=== PATIENT | female | born 1970 ===

== ENCOUNTER 2020-03-21 14:35 | Outpatient (REF) | payer OTHER, SELFPAY ==
[2020-03-21 17:36] LABS: MANUAL DIFF FLAG NO
[2020-03-21 17:40] LABS: Basophils Absolute Auto 0.1 X10*3/uL (0.0-0.2); Basophils Percent Auto 0.6 % (0-2); Eosinophils Absolute Auto 0.2 X10*3/uL (0.0-0.4); Eosinophils Percent Auto 1.9 % (0-4); Hematocrit 38.3 % (37-47); Hemoglobin 12.4 g/dl (12.0-16.0); Imm Gran Abs Auto 0.05 X10*3/uL (0.00-0.03); Imm Gran Pct Auto 0.5 % (0.0-0.4); Lymphocytes Absolute Auto 2.7 X10*3/uL (1.2-4.9); Lymphocytes Percent Auto 24.7 % (20-40); Mean Corpuscular HGB Conc 32.4 g/dl (31.0-35.0); Mean Corpuscular Hemoglobin 28.2 pg (27.0-33.0); Mean Platelet Volume 10.5 fL (9.4-12.3); Monocytes Absolute Auto 0.9 X10*3/uL (0.1-1.2); Monocytes Percent Auto 8.2 % (2-11); Neutrophils Percent Auto 64.1 % (45-73); Platelet Count 276 X10*3/uL (160-400); Red Cell Distribution Width 13.6 % (11.0-16.0)
[2020-03-21 19:42] LABS: C Reactive Protein 0.77 mg/dL (< or = 0.50)
[2020-03-28 05:45] LABS: Hepatitis A Antibody IgM 0.18 Index (0-0.79); ~Hepatitis A Antibody IgM Nonreactive (Nonreactive)
== END 2020-03-21 14:36 | disposition home or self-care (01) ==
LOC: CF 14:35
PROVIDERS: PCP Internal Medicine; Referring Provider Internal Medicine; Visit Provider Nurse Practitioner
DX: K58.0 Irritable bowel syndrome with diarrhea (principal); K75.81 Nonalcoholic steatohepatitis (NASH); R10.11 Right upper quadrant pain; K31.84 Gastroparesis; M47.814 Spondylosis without myelopathy or radiculopathy, thoracic region
CPT/HCPCS: 36415; 85025; 86140; 86709; 99213

== ENCOUNTER 2020-03-22 | Outpatient (REF) | payer OTHER, SELFPAY ==
[2020-03-23 14:49] LABS: CDIFF Ag Negative (Negative); CDiff Toxin Negative (Negative)
[2020-03-23 14:50] LABS: CDIFF Internal ctrl Dots and bkg OK (V)
== END 2020-03-22 00:01 | disposition home or self-care (01) ==
LOC: HO.LNP
PROVIDERS: Visit Provider Nurse Practitioner
DX: R19.7 Diarrhea, unspecified (principal)
CPT/HCPCS: 87324; 87338; 87449

== ENCOUNTER 2020-04-03 12:47 | Outpatient (REF) | payer OTHER, SELFPAY ==
[2020-04-04 11:38] LABS: CT PCR NOT DETECTED (Not Detect.)
[2020-04-04 11:39] LABS: NG PCR NOT DETECTED (Not Detect.)
== END 2020-04-03 12:48 | disposition home or self-care (01) ==
LOC: HO.LAB 12:47
PROVIDERS: Visit Provider Obstetrics & Gynecology
DX: R10.2 Pelvic and perineal pain (principal); N76.0 Acute vaginitis; B96.89 Other specified bacterial agents as the cause of diseases classified elsewhere
CPT/HCPCS: 87480; 87491; 87510; 87591; 87660; 99213

== ENCOUNTER 2020-04-06 12:22 | Outpatient (REF) | payer OTHER, SELFPAY ==
--- NOTE | 2020-04-06 12:29 | US_ITS ---
EXAMINATION: US PELVIS COMPLETE CLINICAL INFORMATION: Pelvic and perineal pain; the last menstrual period was on 02/23/2020. COMPARISON: Pelvic ultrasound dated 05/31/2018. TECHNIQUE: Transabdominal and transvaginal imaging were performed. FINDINGS: The uterus is of normal size and echogenicity measuring 9.1 x 5.0 x 5.1 cm. The uterus is anteverted. A regular, homogeneous endometrium is identified measuring 1.0 cm. Nabothian cysts are seen within the cervix FIBROIDS: There are 2 fibroids seen. 1. Location: Posterior rightward body. Size: 1.8 x 1.4 x 2.0 cm. Prior: 1.2 x 1.2 x 1.2 cm. Fibroid characteristics: Heterogeneously hypoechoic. 2. Location: Anterior leftward body. Size: 0.9 x 0.7 x 0.8 cm. Prior: Not seen. Fibroid characteristics: Hypoechoic. Both ovaries are of normal size and echogenicity. The right measures 2.3 x 1.6 x 1.3 cm for a volume of 2.4 mL. The left measures 3.5 x 2.3 x 1.9 cm for a volume of 7.8 mL. There is no pelvic free fluid. No adnexal mass is seen. US/US pelvic complete IMPRESSION: 1. Uterine fibroids are seen, as above. 2. Nabothian cysts are seen within the cervix.
--- NOTE | 2020-04-06 12:29 | US_ITS ---
EXAMINATION: US PELVIS COMPLETE CLINICAL INFORMATION: Pelvic and perineal pain; the last menstrual period was on 02/23/2020. COMPARISON: Pelvic ultrasound dated 05/31/2018. TECHNIQUE: Transabdominal and transvaginal imaging were performed. FINDINGS: The uterus is of normal size and echogenicity measuring 9.1 x 5.0 x 5.1 cm. The uterus is anteverted. A regular, homogeneous endometrium is identified measuring 1.0 cm. Nabothian cysts are seen within the cervix FIBROIDS: There are 2 fibroids seen. 1. Location: Posterior rightward body. Size: 1.8 x 1.4 x 2.0 cm. Prior: 1.2 x 1.2 x 1.2 cm. Fibroid characteristics: Heterogeneously hypoechoic. 2. Location: Anterior leftward body. Size: 0.9 x 0.7 x 0.8 cm. Prior: Not seen. Fibroid characteristics: Hypoechoic. Both ovaries are of normal size and echogenicity. The right measures 2.3 x 1.6 x 1.3 cm for a volume of 2.4 mL. The left measures 3.5 x 2.3 x 1.9 cm for a volume of 7.8 mL. There is no pelvic free fluid. No adnexal mass is seen. US/US transvaginal IMPRESSION: 1. Uterine fibroids are seen, as above. 2. Nabothian cysts are seen within the cervix.
== END 2020-04-06 12:23 | disposition home or self-care (01) ==
LOC: HO.US 12:22
PROVIDERS: PCP Internal Medicine; Visit Provider Obstetrics & Gynecology
DX: R10.2 Pelvic and perineal pain (principal)
CPT/HCPCS: 76830; 76856

== ENCOUNTER 2020-04-10 14:38 | Outpatient (REF) | payer OTHER, SELFPAY ==
[2020-04-10 15:24] LABS: MANUAL DIFF FLAG NO
[2020-04-10 15:33] LABS: Basophils Absolute Auto 0.1 X10*3/uL (0.0-0.2); Basophils Percent Auto 0.9 % (0-2); Eosinophils Absolute Auto 0.2 X10*3/uL (0.0-0.4); Eosinophils Percent Auto 1.9 % (0-4); Hematocrit 40.4 % (37-47); Hemoglobin 12.7 g/dl (12.0-16.0); Imm Gran Abs Auto 0.05 X10*3/uL (0.00-0.03); Imm Gran Pct Auto 0.6 % (0.0-0.4); Lymphocytes Absolute Auto 2.5 X10*3/uL (1.2-4.9); Lymphocytes Percent Auto 28.8 % (20-40); Mean Corpuscular HGB Conc 31.4 g/dl (31.0-35.0); Mean Corpuscular Hemoglobin 27.4 pg (27.0-33.0); Mean Corpuscular Volume 87.1 fL (80-98); Mean Platelet Volume 10.2 fL (9.4-12.3); Monocytes Absolute Auto 0.7 X10*3/uL (0.1-1.2); Monocytes Percent Auto 7.6 % (2-11); Neutrophils Absolute Auto 5.3 X10*3/uL (2.0-8.3); Neutrophils Percent Auto 60.2 % (45-73); Platelet Count 315 X10*3/uL (160-400); Red Blood Count 4.64 X10*6/uL (4.20-5.50); Red Cell Distribution Width 13.5 % (11.0-16.0); White Blood Count 8.7 X10*3/uL (4.8-10.8)
[2020-04-10 15:59] LABS: C Reactive Protein 0.71 mg/dL (< or = 0.50)
[2020-04-12 11:55] LABS: Alpha Fetoprotein 1.6 ng/mL
== END 2020-04-10 14:39 | disposition home or self-care (01) ==
LOC: HO.LAB 14:38
PROVIDERS: PCP Internal Medicine; Visit Provider Nurse Practitioner
DX: K75.81 Nonalcoholic steatohepatitis (NASH) (principal); R19.7 Diarrhea, unspecified
CPT/HCPCS: 36415; 82105; 85025; 86140

== ENCOUNTER 2020-04-12 17:15 | Outpatient (REF) | payer OTHER, SELFPAY ==
[2020-04-13 15:02] LABS: CDIFF Ag Negative (Negative); CDIFF Internal ctrl Dots and bkg OK (V); CDiff Toxin Negative (Negative)
== END 2020-04-12 17:16 | disposition home or self-care (01) ==
LOC: HO.LNP 17:15
PROVIDERS: Visit Provider Nurse Practitioner
DX: R19.7 Diarrhea, unspecified (principal)
CPT/HCPCS: 87045; 87046; 87324; 87338; 87449

== ENCOUNTER 2020-04-18 09:43 | Outpatient (REF) | payer OTHER, SELFPAY ==
--- NOTE | 2020-04-18 09:46 | US_ITS ---
EXAMINATION: US ABDOMEN LIMITED CLINICAL INFORMATION: HURD. COMPARISON: CT abdomen and pelvis dated 07/01/2018 and abdominal ultrasound May 2016 TECHNIQUE: Real-time imaging of the right upper quadrant abdominal viscera. FINDINGS: PANCREAS: Normal. LIVER: Liver echotexture is increased probably representing fatty infiltration. There is a hypoechoic area adjacent to the gallbladder, a characteristic location of focal fatty sparing. No other focal liver lesion is seen. The liver is upper normal in size, right lobe measuring 18 cm. The liver is normal in contour.. There is no intrahepatic biliary duct dilatation seen. GALLBLADDER: Normal. The gallbladder is physiologically distended without evidence of stones, sludge, polyps, wall thickening or pericholecystic fluid. COMMON BILE DUCT: Normal in caliber measuring 0.26 cm in diameter. RIGHT KIDNEY: Normal. No hydronephrosis. No renal calculi or focal parenchymal lesions. The kidney measures 12.1 cm in maximum dimension. FREE FLUID: None. US/US abdomen limited IMPRESSION: Echogenic liver probably representing fatty infiltration.
== END 2020-04-18 09:44 | disposition home or self-care (01) ==
LOC: HO.US 09:43
PROVIDERS: Visit Provider Nurse Practitioner
DX: K75.81 Nonalcoholic steatohepatitis (NASH) (principal)
CPT/HCPCS: 76705

== ENCOUNTER 2020-04-19 13:11 | Outpatient (REF) | payer OTHER, SELFPAY ==
--- NOTE | 2020-04-19 | MM_ITS ---
EXAMINATION: MM SCREENING DIGITAL BREAST TOMOSYNTHESIS, BILATERAL CLINICAL INFORMATION: Screening. Asymptomatic. The lifetime risk of breast cancer based on the Tyrer-Cuzick Model is 13.1%. COMPARISON: Mammography: March 17, 2019 and studies dating back to December 26, 2011 TECHNIQUE: Digital breast tomosynthesis is performed in both the craniocaudal and mediolateral oblique views along with computer-aided detection (CAD). Synthesized 2D images are generated from the tomosynthesis. FINDINGS: There are scattered areas of fibroglandular density (ACR BI-RADS breast composition Category b). There are no significant masses, abnormal calcifications, or other abnormalities. Stable region of architectural distortion seen superior aspect of the left breast. MM/MM tomosynthesis screening BI IMPRESSION: There are no significant changes from prior study. ASSESSMENT: BI-RADS 1: Negative RECOMMENDATION: Routine annual mammography screening. This patient's information was entered into a reminder system with a target due date for their next mammogram.
== END 2020-04-19 13:12 | disposition home or self-care (01) ==
LOC: HO.MAMMO 13:11
PROVIDERS: PCP Internal Medicine; Visit Provider Internal Medicine
DX: Z12.31 Encounter for screening mammogram for malignant neoplasm of breast (principal)
CPT/HCPCS: 77063; 77067

== ENCOUNTER 2020-04-27 15:28 | Outpatient (REF) | payer OTHER, SELFPAY | END 2020-04-27 15:29 | disposition home or self-care (01) | LOC: HO.LAB 15:28 | PROVIDERS: PCP Internal Medicine; Visit Provider Internal Medicine | DX: Z20.828 Contact with and (suspected) exposure to other viral communicable diseases (principal) | CPT/HCPCS: C9803; U0003 ==

== ENCOUNTER 2020-05-03 12:04 | Outpatient (REF) | payer OTHER, SELFPAY ==
[2020-05-03 13:13] LABS: MANUAL DIFF FLAG NO
[2020-05-03 13:21] LABS: Basophils Absolute Auto 0.1 X10*3/uL (0.0-0.2); Basophils Percent Auto 0.7 % (0-2); Eosinophils Absolute Auto 0.2 X10*3/uL (0.0-0.4); Eosinophils Percent Auto 1.9 % (0-4); Hematocrit 40.5 % (37-47); Hemoglobin 12.7 g/dl (12.0-16.0); Imm Gran Abs Auto 0.04 X10*3/uL (0.00-0.03); Imm Gran Pct Auto 0.4 % (0.0-0.4); Lymphocytes Absolute Auto 2.7 X10*3/uL (1.2-4.9); Lymphocytes Percent Auto 29.3 % (20-40); Mean Corpuscular HGB Conc 31.4 g/dl (31.0-35.0); Mean Corpuscular Hemoglobin 27.2 pg (27.0-33.0); Mean Corpuscular Volume 86.7 fL (80-98); Mean Platelet Volume 10.6 fL (9.4-12.3); Monocytes Absolute Auto 0.6 X10*3/uL (0.1-1.2); Monocytes Percent Auto 6.6 % (2-11); Neutrophils Absolute Auto 5.5 X10*3/uL (2.0-8.3); Neutrophils Percent Auto 61.1 % (45-73); Platelet Count 283 X10*3/uL (160-400); Red Blood Count 4.67 X10*6/uL (4.20-5.50); Red Cell Distribution Width 13.3 % (11.0-16.0); White Blood Count 9.1 X10*3/uL (4.8-10.8)
[2020-05-03 13:41] LABS: Alanine Aminotransferase 54 U/L (0-31); Alkaline Phosphatase 100 U/L (39-117); Anion Gap 12 (12-20); Aspartate Amino Transferase 54 U/L (5-31); Bilirubin Total 0.8 mg/dL (0.0-1.0); Blood Urea Nitrogen 12 mg/dL (9-16); C Reactive Protein 0.59 mg/dL (< or = 0.50); Calcium 8.9 mg/dL (8.4-10.2); Carbon Dioxide 29 mmol/L (22-29); Chloride 104 mmol/L (96-108); Cholesterol 220 mg/dL; Estimated Glomerular Filt Rate > 60; Glucose Fasting 105 mg/dL (60-99); HDL Cholesterol 32 mg/dL; LDL Cholesterol Calculated 150 mg/dl; Potassium 4.4 mmol/l (3.3-5.1); Sodium 141 mmol/L (135-145); Total Protein 6.9 g/dL (6.5-8.0); Triglycerides 191 mg/dL
[2020-05-03 14:01] LABS: TSH reflex Free T4 1.82 mIU/mL (0.32-4.0)
[2020-05-03 14:16] LABS: Glucose Urine UA NEG (NEG); Leukocyte Esterase Urine 1+ (NEG); Nitrite Urine NEG (NEG); PH 5.5 (5.0-8.0); Specific Gravity - Urine >= 1.030 (1.005-1.025); Urine Blood TRACE (NEG); Urine Ketones NEG (NEG); Urine Protein NEG (NEG-TRACE)
[2020-05-03 14:21] LABS: Appearance Urine HAZY; Color Urine YELLOW
[2020-05-03 14:22] LABS: Estimated Average Glucose 151 mg/dL; Hemoglobin A1c % 6.9 %
[2020-05-03 14:35] LABS: Erythrocyte Sedimentation Rate 16 MM/HR (0-20)
[2020-05-03 14:42] LABS: Bacteria Urine 1+ /LPF; Mucus Urine 1+ /LPF; RBC Urine 0-2 /HPF (0); Squamous Epithelial Cell Urine 2+ /LPF
== END 2020-05-03 12:05 | disposition home or self-care (01) ==
LOC: HO.LAB 12:04
PROVIDERS: PCP Internal Medicine; Visit Provider Internal Medicine
DX: I10 Essential (primary) hypertension (principal); E11.9 Type 2 diabetes mellitus without complications
CPT/HCPCS: 36415; 80053; 80061; 81001; 81003; 83036; 84443; 85025; 85652; 86140; 87086

== ENCOUNTER → 2020-05-07 14:38 | Outpatient (BNVA) | payer OTHER, SELFPAY | PROVIDERS: PCP Internal Medicine; Visit Provider Nurse Practitioner | DX: Z76.89 Persons encountering health services in other specified circumstances (principal) ==

== ENCOUNTER 2020-05-09 14:49 | Outpatient (REF) | payer OTHER, SELFPAY ==
[2020-05-10 03:12] LABS: CT PCR NOT DETECTED (Not Detect.); NG PCR NOT DETECTED (Not Detect.)
[2020-05-10 08:53] LABS: BV Int Neg Control Negative (Negative); BV Int Pos Control Positive (Positive)
== END 2020-05-09 14:50 | disposition home or self-care (01) ==
LOC: HO.LAB 14:49
PROVIDERS: PCP Internal Medicine; Visit Provider Obstetrics & Gynecology
DX: N98.9 Complication associated with artificial fertilization, unspecified (principal)
CPT/HCPCS: 87480; 87491; 87510; 87591; 87660; 99212

== ENCOUNTER → 2020-05-16 12:40 | Outpatient (BNVA) | payer OTHER, SELFPAY | PROVIDERS: PCP Internal Medicine; Referring Provider Internal Medicine; Visit Provider Obstetrics & Gynecology | DX: Z76.89 Persons encountering health services in other specified circumstances (principal) ==

== ENCOUNTER → 2020-06-04 14:09 | Outpatient (BNVA) | payer OTHER, SELFPAY | PROVIDERS: PCP Internal Medicine; Visit Provider Nurse Practitioner | DX: Z76.89 Persons encountering health services in other specified circumstances (principal) ==

== ENCOUNTER 2020-06-06 11:47 | Outpatient (REF) | payer OTHER, SELFPAY ==
--- NOTE | 2020-06-06 11:52 | US_ITS ---
EXAMINATION: US ABDOMEN LIMITED CLINICAL INFORMATION: Intra-abdominal and pelvic swelling, mass or lump, unspecified site. COMPARISON: Previous CT of the abdomen and pelvis June 2018 TECHNIQUE: Doppler color and grayscale imaging of the soft tissues of the left abdominal wall lateral to the umbilicus FINDINGS: No abnormality is evident by ultrasound. No mass, hernia or fluid collection is seen. US/US abdomen limited IMPRESSION: No left abdominal wall abnormality evident by ultrasound.
== END 2020-06-06 11:48 | disposition home or self-care (01) ==
LOC: HO.US 11:47
PROVIDERS: Visit Provider Nurse Practitioner
DX: R19.00 Intra-abdominal and pelvic swelling, mass and lump, unspecified site (principal)
CPT/HCPCS: 76705

== ENCOUNTER → 2020-06-14 13:12 | Outpatient (BNVA) | payer OTHER, SELFPAY | PROVIDERS: PCP Internal Medicine; Visit Provider Nurse Practitioner | DX: Z76.89 Persons encountering health services in other specified circumstances (principal) ==

== ENCOUNTER → 2020-06-25 14:03 | Outpatient (BNVA) | payer OTHER, SELFPAY | PROVIDERS: PCP Internal Medicine; Visit Provider Surgery | DX: R19.00 Intra-abdominal and pelvic swelling, mass and lump, unspecified site (principal); E66.01 Morbid (severe) obesity due to excess calories; Z68.41 Body mass index [BMI] 40.0-44.9, adult | CPT/HCPCS: 99202 ==

== ENCOUNTER 2020-08-02 13:20 | Outpatient (REF) | payer OTHER, SELFPAY ==
[2020-08-02 14:54] LABS: Estimated Average Glucose 146 mg/dL; Hemoglobin A1c % 6.7 %
[2020-08-02 15:05] LABS: Glucose Urine UA NEG (NEG); Leukocyte Esterase Urine NEG (NEG); Nitrite Urine NEG (NEG); PH 5.5 (5.0-8.0); Specific Gravity - Urine >= 1.030 (1.005-1.025); Urine Blood NEG (NEG); Urine Ketones NEG (NEG); Urine Protein NEG (NEG-TRACE)
[2020-08-02 15:11] LABS: Appearance Urine CLEAR; Color Urine YELLOW
== END 2020-08-02 13:21 | disposition home or self-care (01) ==
LOC: HO.LAB 13:20
PROVIDERS: PCP Internal Medicine; Visit Provider Internal Medicine
DX: E11.9 Type 2 diabetes mellitus without complications (principal); I10 Essential (primary) hypertension
CPT/HCPCS: 36415; 81003; 83036

== ENCOUNTER 2020-08-06 13:15 | Outpatient (REF) | payer OTHER, SELFPAY ==
--- NOTE | ~2020-08-06 | XR_ITS ---
EXAMINATION: THORACIC AND LUMBAR SPINE CLINICAL INFORMATION: Back pain COMPARISON: Previous thoracic and lumbar spine x-rays most recent November 2019 TECHNIQUE: 3 views of the thoracic spine including swimmer's view and 3 views of the lumbar spine FINDINGS: Thoracic spine: Bone alignment is normal. No fracture or dislocation is seen. There is multilevel degenerative spondylosis. There is disc space narrowing in the mid thoracic spine. Paraspinal soft tissues are normal. There are postsurgical changes to the lower cervical spine. Lumbar spine: Bone alignment is normal. No fracture or dislocation is seen. Disc spaces are normal. There is lower lumbar spine facet arthritis. XR/XR thoracic spine 3V IMPRESSION: Thoracic spine: Degenerative changes in the mid and lower thoracic spine. Lumbar spine: Lower lumbar spine facet arthritis.
--- NOTE | ~2020-08-06 | XR_ITS ---
EXAMINATION: THORACIC AND LUMBAR SPINE CLINICAL INFORMATION: Back pain COMPARISON: Previous thoracic and lumbar spine x-rays most recent November 2019 TECHNIQUE: 3 views of the thoracic spine including swimmer's view and 3 views of the lumbar spine FINDINGS: Thoracic spine: Bone alignment is normal. No fracture or dislocation is seen. There is multilevel degenerative spondylosis. There is disc space narrowing in the mid thoracic spine. Paraspinal soft tissues are normal. There are postsurgical changes to the lower cervical spine. Lumbar spine: Bone alignment is normal. No fracture or dislocation is seen. Disc spaces are normal. There is lower lumbar spine facet arthritis. XR/XR lumbar spine 2-3V IMPRESSION: Thoracic spine: Degenerative changes in the mid and lower thoracic spine. Lumbar spine: Lower lumbar spine facet arthritis.
== END 2020-08-06 13:16 | disposition home or self-care (01) ==
LOC: HO.XRAY 13:15
PROVIDERS: PCP Internal Medicine; Visit Provider Internal Medicine
DX: G89.29 Other chronic pain (principal); M54.9 Dorsalgia, unspecified
CPT/HCPCS: 72072; 72100

== ENCOUNTER 2020-08-16 17:14 | Outpatient (REF) | payer OTHER, SELFPAY | END 2020-08-16 17:15 | disposition home or self-care (01) | LOC: HO.LAB 17:14 | PROVIDERS: Visit Provider Nurse Practitioner Family | DX: J02.9 Acute pharyngitis, unspecified (principal); Z20.822 Contact with and (suspected) exposure to COVID-19 | CPT/HCPCS: 36415; U0003; U0005 ==

== ENCOUNTER → 2020-09-20 12:45 | Outpatient (BNVA) | payer OTHER, SELFPAY | PROVIDERS: PCP Internal Medicine; Visit Provider Nurse Practitioner | DX: K21.9 Gastro-esophageal reflux disease without esophagitis (principal); R19.00 Intra-abdominal and pelvic swelling, mass and lump, unspecified site; R19.7 Diarrhea, unspecified; R10.11 Right upper quadrant pain; K75.81 Nonalcoholic steatohepatitis (NASH); K31.84 Gastroparesis; E66.01 Morbid (severe) obesity due to excess calories; Z68.41 Body mass index [BMI] 40.0-44.9, adult | CPT/HCPCS: 99212 ==

== ENCOUNTER 2020-09-21 13:23 | Outpatient (REF) | payer OTHER, SELFPAY ==
[2020-09-21 14:51] LABS: MANUAL DIFF FLAG NO
[2020-09-21 14:54] LABS: Glucose Urine UA NEG (NEG); Leukocyte Esterase Urine 1+ (NEG); Nitrite Urine NEG (NEG); PH 5.5 (5.0-8.0); Specific Gravity - Urine >= 1.030 (1.005-1.025); UACC Culture Trigger YES; Urine Blood 2+ (NEG); Urine Ketones NEG (NEG); Urine Protein NEG (NEG-TRACE)
[2020-09-21 14:55] LABS: Appearance Urine HAZY; Color Urine YELLOW
[2020-09-21 14:56] LABS: Basophils Absolute Auto 0.1 X10*3/uL (0.0-0.2); Basophils Percent Auto 0.7 % (0-2); Eosinophils Absolute Auto 0.2 X10*3/uL (0.0-0.4); Eosinophils Percent Auto 1.8 % (0-4); Hematocrit 40.7 % (37-47); Imm Gran Abs Auto 0.03 X10*3/uL (0.00-0.03); Imm Gran Pct Auto 0.4 % (0.0-0.4); Lymphocytes Absolute Auto 2.5 X10*3/uL (1.2-4.9); Mean Corpuscular HGB Conc 31.9 g/dl (31.0-35.0); Mean Corpuscular Hemoglobin 27.6 pg (27.0-33.0); Mean Corpuscular Volume 86.4 fL (80-98); Mean Platelet Volume 10.3 fL (9.4-12.3); Monocytes Absolute Auto 0.6 X10*3/uL (0.1-1.2); Monocytes Percent Auto 7.1 % (2-11); Neutrophils Absolute Auto 5.1 X10*3/uL (2.0-8.3); Platelet Count 311 X10*3/uL (160-400); Red Blood Count 4.71 X10*6/uL (4.20-5.50); Red Cell Distribution Width 13.4 % (11.0-16.0); White Blood Count 8.5 X10*3/uL (4.8-10.8)
[2020-09-21 15:05] LABS: Estimated Average Glucose 143 mg/dL; Hemoglobin A1c % 6.6 %
[2020-09-21 15:19] LABS: Creatinine Urine 217.78 mg/dL; Microalbum/Creatinine Ratio Ur 4.1 ug/mg cr
[2020-09-21 15:19] LABS: Alanine Aminotransferase 39 U/L (0-31); Albumin Level 4.1 g/dL (3.5-5.0); Alkaline Phosphatase 99 U/L (39-117); Anion Gap 11 (12-20); Aspartate Amino Transferase 44 U/L (5-31); Bilirubin Total 0.9 mg/dL (0.0-1.0); Blood Urea Nitrogen 13 mg/dL (9-16); Calcium 8.8 mg/dL (8.4-10.2); Carbon Dioxide 31 mmol/L (22-29); Chloride 105 mmol/L (96-108); Cholesterol 214 mg/dL; Estimated Glomerular Filt Rate > 60; Glucose Fasting 101 mg/dL (60-99); HDL Cholesterol 32 mg/dL; LDL Cholesterol Calculated 134 mg/dl; Potassium 4.2 mmol/L (3.3-5.1); Sodium 143 mmol/L (135-145); Total Protein 7.1 g/dL (6.5-8.0); Triglycerides 243 mg/dL
[2020-09-21 15:21] LABS: Mucus Urine 3+ /LPF; Squamous Epithelial Cell Urine 3+ /LPF
[2020-09-21 15:41] LABS: TSH reflex Free T4 1.29 uIU/mL (0.32-4.0); Vitamin D 25-OH Total 27.7 ng/mL (>30)
== END 2020-09-21 13:24 | disposition home or self-care (01) ==
LOC: HO.LAB 13:23
PROVIDERS: PCP Internal Medicine; Visit Provider Internal Medicine
DX: E66.01 Morbid (severe) obesity due to excess calories (principal); Z68.41 Body mass index [BMI] 40.0-44.9, adult; E78.2 Mixed hyperlipidemia; I10 Essential (primary) hypertension; M79.7 Fibromyalgia; E11.9 Type 2 diabetes mellitus without complications; E55.9 Vitamin D deficiency, unspecified; M25.50 Pain in unspecified joint
CPT/HCPCS: 36415; 80053; 80061; 81001; 81003; 82043; 82306; 83036; 84443; 85025; 87086

== ENCOUNTER → 2020-10-17 11:25 | Outpatient (BNVA) | payer OTHER, SELFPAY | PROVIDERS: PCP Internal Medicine; Referring Provider Internal Medicine; Visit Provider Nurse Practitioner Family | DX: R07.9 Chest pain, unspecified (principal); I10 Essential (primary) hypertension; E78.2 Mixed hyperlipidemia; E11.9 Type 2 diabetes mellitus without complications | CPT/HCPCS: 93005; 99212 ==

== ENCOUNTER → 2020-10-19 12:38 | Outpatient (BNVA) | payer OTHER, SELFPAY | PROVIDERS: PCP Internal Medicine; Visit Provider Nurse Practitioner ==

== ENCOUNTER 2020-10-30 15:01 | Emergency (ER) | payer OTHER, SELFPAY ==
--- NOTE | ~2020-10-30 | CT_ITS ---
EXAMINATION: CT abdomen pelvis w con, CT chest w con CLINICAL INFORMATION: Reason for Exam fall on L side. LUQ pain COMPARISON: Selected portions of abdomen CT 07/01/18 TECHNIQUE: Multidetector CT. Helical examination of the chest, abdomen and pelvis. The patient received nonionic contrast intravenously. The patient received 85 mL of Omnipaque [address] examination was performed using dose optimization techniques as appropriate, variously including the following: *Automated exposure control *Adjustment of mA and/or kV according to patient size (this includes techniques or standardized protocols for targeted exams where dose is matched to indication/reason for exam; i.e. extremities or head) *Use of iterative reconstruction technique ESTIMATED DOSE: DLP 1273 mGy-cm. FINDINGS: Digital diamond cleaner: No dense consolidation. Nonobstructed gas pattern. Lower cervical instrumentation. CHEST: LUNG: No abnormality of the central airways. No evidence of contusion, consolidation or edema. No suspicious mass PLEURA: No pleural effusion or pneumothorax. MEDIASTINUM: There is no evidence of a mediastinal hematoma. No enlarged mediastinal or hilar lymph nodes. No suspicious abnormality the esophagus. VASCULAR: There is artifact in the region of the aortic root and ascending arch. No convincing evidence of a thoracic aortic injury. There is no abnormality of the central pulmonary arteries. No pericardial fluid. CHEST WALL/AXILLA: No axillary or internal mammary lymphadenopathy. ABDOMEN/PELVIS: LIVER, GALLBLADDER, AND BILIARY TREE: There is no evidence of a hepatic injury. Diffuse fatty change with some areas of focal sparing. The liver contour is smooth. There is no intrahepatic biliary dilation. No opaque gallstone. No biliary dilation. PANCREAS: No evidence of a pancreatic injury. No localized peripancreatic stranding. SPLEEN: Within normal limits. Small splenule. ADRENAL GLANDS: Within normal limits KIDNEYS AND URETERS: No evidence of renal injury. No dilation of the urinary collecting system. There is a small round cyst in the medial mid right kidney. This was present and appears unchanged since at least 07/01/18. This does not require any further evaluation. GASTROINTESTINAL TRACT: No colonic wall thickening. No small bowel dilation. The stomach is not well-distended. There is no definite evidence of an omental or mesenteric hematoma. No CT evidence of acute appendicitis. ABDOMINAL WALL: No significant hernia is appreciated. No significant abdominal wall hematoma. LYMPHOVASCULAR STRUCTURES AND FLUID: There is no abdominal aortic aneurysm. No evidence of a retroperitoneal hemorrhage. The portal vein enhances. The IVC is normal caliber. BLADDER: The bladder is not fully distended but there is no suspicious abnormality. No evidence of bladder injury. PELVIC VISCERA: There are low attenuating areas near the cervix. These may represent nabothian cysts. There is a probable physiologic right ovarian cyst which does not require any further evaluation. MUSCULOSKELETAL: No acute or suspicious osseous abnormality. No acute displaced rib fracture. THORACIC/LUMBAR SPINE: Evidence of lower cervical instrumentation. CT/CT abdomen pelvis w con IMPRESSION: No evidence of mediastinal hematoma or thoracic aortic injury with artifact around the proximal aorta. No evidence of pulmonary contusion or pneumothorax. No displaced rib fracture. No evidence of solid visceral injury or hemoperitoneum.
--- NOTE | ~2020-10-30 | XR_ITS ---
EXAMINATION: XR RIBS, LEFT CLINICAL INFORMATION: Left rib pain. COMPARISON: None TECHNIQUE: 3 views of the left ribs were obtained. Chest one view. FINDINGS: Lungs are clear. No consolidation, pneumothorax, or pleural effusion. The cardiomediastinal silhouette and pulmonary vasculature are normal. Osseous structures are unremarkable. Ribs are intact. No fractures are identified. XR/XR ribs LT min 3V w CXR1V IMPRESSION: Unremarkable chest exam. Unremarkable left rib exam.
[2020-10-30 15:27] VITALS: BP 158/84; PULSE 72; RESP 18; TEMP 36.8; O2SAT 98; BMI 40.1
[2020-10-30] MEDS: oxyCODONE HCl Immed Release 5 MG TABLET PO (16:02)
--- NOTE | 2020-10-30 16:04 | PC.NURSE ---
PT REFUSED TYLENOL SAYS GIVES HER A BRIAN RN TO RETURN TO [facility]
--- NOTE | 2020-10-30 16:38 | ED_ITS ---
HPI - Fall General Chief Complaint: Fall Stated Complaint: FALL Time Seen by Provider: 10/30/20 15:51 Source: patient Mode of arrival: ambulatory History of Present Illness HPI Narrative: 50-year-old female with a past medical history of HTN, CP, DM, fibromyalgia, insomnia, hyperlipidemia, morbid obesity, polyarthralgia, presenting to the ED complaining of left sided back/chest/abdominal pain s/p mechanical slip and fall while in the shower on Thursday. Denies symptoms prior to fall. Denies head trauma or LOC. Admits symptoms exacerbated with breathing. Takes baby ASA daily. Denies lightheadedness/dizziness, SOB, nausea/vomiting/diarrhea, weakness, urinary incontinence/retention, dysuria/hematuria Related Data Home Medications Medication Instructions Recorded Confirmed albuterol sulfate 90 mcg/actuation 2 puff PO QID PRN 03/21/20 10/17/20 aerosol inhaler blood sugar diagnostic #10 ea 03/21/20 10/17/20 cholecalciferol (vitamin D3) 50 50 mcg PO DAILY 03/21/20 10/17/20 mcg (2,000 unit) capsule hydrocortisone 2.5 % topical cream applic TOPICAL BID 03/21/20 10/17/20 lancets 28 gauge #100 ea 03/21/20 10/17/20 metronidazole 0.75 % topical cream applic TOPICAL BID 03/21/20 10/17/20 triamcinolone acetonide 0.1 % TOPICAL BID 03/21/20 10/17/20 lotion metoclopramide HCl 5 mg tablet 5 mg PO QIDACHS 10/17/20 10/17/20 Previous Rx's Medication Instructions Recorded pitavastatin calcium 2 mg tablet 2 mg PO QPM 30 Days #30 tab NS 05/02/20 hydroxyzine HCl 50 mg tablet 50 mg PO BEDTIME #30 tab 05/07/20 nystatin-triamcinolone 100,000 1 appl TOPICAL DAILY #15 g 05/09/20 unit/g-0.1 % topical cream zolpidem 10 mg tablet 10 mg PO BEDTIME #90 tab 06/27/20 pitavastatin calcium 2 mg tablet 2 mg PO QPM 30 Days #30 tab 08/03/20 tizanidine 4 mg tablet 4 mg PO BEDTIME PRN 30 Days #30 tab 08/03/20 aspirin 81 mg tablet,delayed 81 mg PO DAILY #90 tab 03/03/21 release hydrochlorothiazide 25 mg tablet 25 mg PO DAILY #90 tab 08/15/20 sulfamethoxazole 800 1 tab PO Q12H 7 Days #14 tab 09/18/20 mg-trimethoprim 160 mg tablet metoclopramide HCl 5 mg tablet 5 mg PO .BIDAC 30 Days #60 tab 09/20/20 pantoprazole 40 mg tablet,delayed 40 mg PO DAILY 30 Days #30 tab 09/20/20 release carvedilol 3.125 mg tablet 3.125 mg PO BID 90 Days #180 tab 10/17/20 bismuth subsalicylate 262 mg 2 tab PO QID 30 Days #240 tab 10/19/20 chewable tablet acetaminophen [Tylenol Extra 500 mg PO Q6H PRN #20 tab 10/30/20 Strength] lidocaine [Lidoderm] 1 patch TOPICAL DAILY PRN #30 ea 10/30/20 MDD remove after 12 hours oxycodone 5 mg PO Q8H PRN 3 Days #9 tab 10/30/20 Allergies Allergy/AdvReac Type Severity Reaction Status Date / Time ibuprofen [From Motrin] Allergy Intermediate UPSET Verified 10/30/20 15:27 STOMACH, abdominal pain morphine [MORPHINE] Allergy Intermediate PALPATATIONS, Verified 10/30/20 15:27 PANIC ATTACKS, nauseas,panic attack, heart palpitations amoxicillin [Prevpac] Allergy Unknown itchy Verified 10/30/20 15:27 throat atorvastatin [From LIPITOR] Allergy Unknown UNKNOWN Verified 10/30/20 15:27 lansoprazole [Prevpac] Allergy Unknown itchy Verified 10/30/20 15:27 throat omeprazole [From PRILOSEC] Allergy Unknown ITCHY Verified 10/30/20 15:27 THROAT pravastatin [PRAVASTATIN] Allergy Unknown UNKNOWN Verified 10/30/20 15:27 rosuvastatin [From CRESTOR] Allergy Unknown UNKNOWN Verified 10/30/20 15:27 terbinafine [TERBINAFINE] Allergy Unknown UNKNOWN Verified 10/30/20 15:27 Vicodin Allergy Unknown palpitations, Verified 10/30/20 15:27 itch clarithromycin [From BIAXIN] AdvReac Unknown ABD PAIN, Verified 10/30/20 15:27 DIARRHEA gabapentin [GABAPENTIN] AdvReac Unknown UNKNOWN, Verified 10/30/20 15:27 nausea, dizziness levofloxacin [LEVOFLOXACIN] AdvReac Unknown PALPITATION Verified 10/30/20 15:27 S tylenol with codeine Allergy Unknown fast heart Uncoded 10/19/20 12:39 rate Review of Systems Review of Systems: Constitutional: No Fever, No Chills, No Fatigue, No Malaise Eyes: No Eye Pain, No Vision Changes Cardiovascular: + Chest Wall Pain, No SOB, No Orthopnea, No Edema, No Palpitations Respiratory: No Cough, No Dyspnea Gastrointestinal: No Nausea, No Vomiting, No Diarrhea, No Constipation, No Abd ominal pain Genitourinary: No Dysuria, No Urinary Frequency, No Hematuria, No Urinary Incontinence/retention, No Flank Pain Musculoskeletal: + back pain, No Myalgias, No Joint Swelling Skin: No Skin Lesions, No rash Neuro: No Weakness, No Numbness, No Paresthesias, No Loss of Consciousness, No Dizziness, No Headache Yes all other systems are reviewed and are negative Neurologic: Denies Sensory deficit (Neuro) [facility] Past Medical History Attestation statement: The following information was validated with the patient. Medical History (Updated 10/30/20 @ 17:36 by ANDREW Lares) Back pain Benign essential hypertension Candidiasis of mouth and esophagus Chest pain Diabetes mellitus Fibromyalgia Insomnia Mixed hyperlipidemia Morbid obesity with BMI of 40.0-44.9, adult Polyarthralgia Surgical History H/O hemorrhoidectomy History of appendectomy History of dermoid cyst excision History of esophagogastroduodenoscopy (EGD) History of excision of lamina of cervical vertebra for decompression of spinal cord Hx of colonoscopy Family History Family History Father NIDDY (non-insulin dependent diabetes mellitus in young) Cardiovascular disease Obesity Cancer of unknown origin Mother CAD (coronary artery disease) NIDDY (non-insulin dependent diabetes mellitus in young) Brother Schizophrenia Degenerative disc disease H/O lymph node cancer Sister Breast cancer Paternal Grandmother Ovarian cancer, Onset Age: 45 Daughter Fibromyalgia Hypertension Cancer of unknown origin Social History Social History (Updated 10/19/20 @ 12:42 by Cecilia Garcias CMA) Household Members: None Alcohol intake: never Smoking Status: Never smoker Advance Directives: No Advance Directives Information Provided: No Patient : No Current occupational status: disabled Sexual orientation: Straight/Heterosexual Gender identity: female Physical Exam Vital Signs: Vital Signs: Last Vital Signs Temp 98.2 F 10/30/20 15:27 Pulse 72 10/30/20 15:27 Resp 18 10/30/20 15:27 BP 158/84 H 10/30/20 15:27 Pulse Ox 98 10/30/20 15:27 Body Mass Index 40.1 Const: Other: Appears in pain, tearful General: cooperative and healthy appearing Limitations: no limitations HENMT: Head: Yes normal to inspection and Yes atraumatic Ears: hearing grossly normal bilaterally General nose exam: Normal external nose present Face and sinus: Yes normal facial exam Eyes: General: appearance normal, both eyes and all related structures EOM: EOMs intact bilaterally Neck: Other: No midline cervical spinous tenderness Neck: Yes normal visual inspection Chest: Chest palpation & inspection: normal inspection of the chest, no crepitus and tenderness (Diffusely over left anteriolateral and posterior chest wall) Resp: Effort & Inspection: normal respiratory effort Auscultation: clear to auscultation bilaterally, no rales, no rhonchi and no wheezes Cardio: Rate: regular rate Heart sounds: S1 normal heart sound present and S2 normal heart sound present GI: Inspection: Yes normal to inspection Palpation (GI): Soft to palpation, Tenderness to palpation present (GI) in the LUQ, no guarding and not rigid Back/Spine/Pelvis: Other: No midline thoracic/lumbar spine tenderness or deformity/step-off. + left-sided paraspinal/MSK thoracic/lumbar ttp Skin: Rashes: no rashes Wounds: no wounds Neuro: Other: No saddle anesthesia. Unable to lie flat secondary to pain General: tone normal and moves all extremities Motor exam (neuro): 5/5 motor strength present throughout Sensory Exam: No Sensory deficit (Neuro) Extrem: General: Yes normal to inspection Course Course Course Narrative: XR ribs LT min 3V w CXR1V IMPRESSION: Unremarkable chest exam. Unremarkable left rib exam >1643--on re-evaluation patient is still in significant pain. Labs/CT ordered -1800--ED your transferred to [facility] pending labs and CT results MDM - Fall MDM Narrative Medical decision making narrative: 50-year-old female with a past medical history of HTN, CP, DM, fibromyalgia, insomnia, hyperlipidemia, morbid obesity, polyarthralgia, presenting to the ED complaining of left sided lesli k/chest/abdominal pain s/p mechanical slip and fall while in the shower on Thursday. On exam VSS, appears in pain, left-sided anteriolateral and posterior chest wall diffusely tender, abdomen is soft with LUQ ttp, patient unable to lie flat secondary to pain. Concern for rib fracture vs contusion vs ?Underlying internal injury/splenic injury Plan: Pain control, x-ray, labs, CT, reassess Lab Data Result diagrams: 10/30/20 17:03 10/30/20 17:03 Labs: Lab Results 10/30/20 10/30/20 Range/Units 17:03 17:03 WBC 12.9 H (4.8-10.8) X10*3/uL RBC 4.55 (4.20-5.50) X10*6/uL Hgb 12.6 (12.0-16.0) g/dl Hct 39.3 (37-47) % MCV 86.4 (80-98) fL MCH 27.7 (27.0-33.0) pg MCHC 32.1 (31.0-35.0) g/dl RDW 13.6 (11.0-16.0) % Plt Count 258 (160-400) X10*3/uL MPV 10.0 (9.4-12.3) fL Immature Gran % (Auto) 0.5 H (0.0-0.4) % Neut % (Auto) 63.9 (45-73) % Lymph % (Auto) 24.5 (20-40) % Mellette % (Auto) 9.0 (2-11) % Eos % (Auto) 1.5 (0-4) % Baso % (Auto) 0.6 (0-2) % Lymph # (Auto) 3.2 (1.2-4.9) X10*3/uL Mellette # (Auto) 1.2 (0.1-1.2) X10*3/uL Eos # (Auto) 0.2 (0.0-0.4) X10*3/uL Baso # (Auto) 0.1 (0.0-0.2) X10*3/uL Abs Immat Gran (auto) 0.07 H (0.00-0.03) X10*3/uL Absolute Neuts (auto) 8.2 (2.0-8.3) X10*3/uL Absolute Nucleated RBC 0.000 (0.0-0.012) X10*3/uL Nucleated RBC % (auto) 0.0 (0.0-0.2) /100WBC PT 13.2 H (10.8-13.0) SEC INR 1.1 (0.9-1.1) APTT 31.8 (24.1-38.0) SEC Discharge Plan Discharge Clinical Impression: Contusion of ribs Qualifiers: Encounter type: initial encounter Laterality: left Qualified Code(s): S20.212A - Contusion of left front wall of thorax, initial encounter Additional Instructions: Oxycodone is an opiate pain medication, take only when pain is severe for the next 3 days. In addition Lidoderm patches or numbing patches, apply to painful area. In addition take Tylenol. Make sure you follow-up with her doctor. If pain persists or worsens, becomes unbearable please return to the ED La oxicodona es un analg?sico opi?warp coiler; t?bain solo cuando el dolor sea intenso eliseo los pr?ximos 3 d?as. Adem?s, los parches de Lidoderm o los parches anest?sicos se aplican en el ?carlos dolorida. Adem?s, tome Tylenol. Aseg?rese de hacer un seguimiento con dimas m?dico. Si el dolor persiste o empeora, se vuelve insoportable, regrese al servicio de urgencias. Prescriptions: New oxycodone 5 mg tablet 5 mg PO Q8H PRN (Reason: pain, severe) 3 Days Qty: 9 RF: 0 acetaminophen [Tylenol Extra Strength] 500 mg tablet 500 mg PO Q6H PRN (Reason: pain or fever) Qty: 20 RF: 0 lidocaine [Lidoderm] 5 % adhesive patch,medicated 1 patch topical DAILY MDD remove after 12 hours PRN (Reason: pain) Qty: 30 RF: 0 No Action zolpidem 10 mg tablet 10 mg PO BEDTIME Qty: 90 RF: 1 hydrochlorothiazide 25 mg tablet 25 mg PO DAILY Qty: 90 RF: 0 aspirin 81 mg tablet,delayed release (DR/EC) 81 mg PO DAILY Qty: 90 RF: 0 sulfamethoxazole-trimethoprim [Bactrim DS] 800-160 mg tablet 1 tab PO Q12H 7 Days Qty: 14 RF: 0 pitavastatin calcium 2 mg tablet 2 mg PO QPM 30 Days Qty: 30 RF: 3 pitavastatin calcium 2 mg tablet 2 mg PO QPM 30 Days Qty: 30 RF: 3 tizanidine 4 mg tablet 4 mg PO BEDTIME PRN (Reason: muscle pain; back pain) 30 Days Qty: 30 RF: 2 albuterol sulfate 90 mcg/actuation HFA aerosol inhaler 2 puff PO QID PRNRF: 0 triamcinolone acetonide 0.1 % lotion topical BID RF: 0 hydrocortisone 2.5 % cream topical BID RF: 0 metronidazole 0.75 % cream topical BID RF: 0 (DME) lancets 28 gauge misc See Rx Instructions ea topical DIRECTED Qty: 100 RF: 0 (DME) FreeStyle Lite Strips Strip See Rx Instructions ea Not Applicable DAILY Qty: 10 RF: 0 cholecalciferol (vitamin D3) 50 mcg (2,000 unit) capsule 50 mcg PO DAILY RF: 0 metoclopramide HCl [Reglan] 5 mg tablet 5 mg PO .BIDAC 30 Days Qty: 60 RF: 3 pantoprazole [Protonix] 40 mg tablet,delayed release (DR/EC) 40 mg PO DAILY 30 Days Qty: 30 RF: 3 bismuth subsalicylate [Bismuth] 262 mg tablet,chewable 2 tab PO QID 30 Days Qty: 240 RF: 3 hydroxyzine HCl 50 mg tablet 50 mg PO BEDTIME Qty: 30 RF: 1 nystatin-triamcinolone 100,000-0.1 unit/g-% cream 1 appl topical DAILY Qty: 15 RF: 0 metoclopramide HCl 5 mg tablet 5 mg PO QIDACHS RF: 0 carvedilol 3.125 mg tablet 3.125 mg PO BID 90 Days Qty: 180 RF: 1 Referrals: Victoriano Smith MD [Primary Care Provider] - 2 days Print Language: Mauritian
[2020-10-30 17:13] LABS: MANUAL DIFF FLAG NO
[2020-10-30 17:14] LABS: Basophils Absolute Auto 0.1 X10*3/uL (0.0-0.2); Basophils Percent Auto 0.6 % (0-2); Eosinophils Absolute Auto 0.2 X10*3/uL (0.0-0.4); Eosinophils Percent Auto 1.5 % (0-4); Hematocrit 39.3 % (37-47); Hemoglobin 12.6 g/dl (12.0-16.0); Imm Gran Abs Auto 0.07 X10*3/uL (0.00-0.03); Imm Gran Pct Auto 0.5 % (0.0-0.4); Lymphocytes Absolute Auto 3.2 X10*3/uL (1.2-4.9); Lymphocytes Percent Auto 24.5 % (20-40); Mean Corpuscular HGB Conc 32.1 g/dl (31.0-35.0); Mean Corpuscular Hemoglobin 27.7 pg (27.0-33.0); Mean Corpuscular Volume 86.4 fL (80-98); Monocytes Absolute Auto 1.2 X10*3/uL (0.1-1.2); Neutrophils Absolute Auto 8.2 X10*3/uL (2.0-8.3); Neutrophils Percent Auto 63.9 % (45-73); Platelet Count 258 X10*3/uL (160-400); Red Blood Count 4.55 X10*6/uL (4.20-5.50); Red Cell Distribution Width 13.6 % (11.0-16.0); White Blood Count 12.9 X10*3/uL (4.8-10.8)
[2020-10-30] MEDS: 0.9 % Sodium Chloride 1,000 ML 999 ML IVCONT (17:29)
[2020-10-30 17:32] LABS: INTERNATIONAL NORM RATIO 1.1 (0.9-1.1); Prothrombin Time 13.2 SEC (10.8-13.0)
[2020-10-30 17:35] LABS: Partial Thromboplastin Time 31.8 SEC (24.1-38.0)
[2020-10-30 17:58] LABS: Alanine Aminotransferase 30 U/L (0-31); Alkaline Phosphatase 104 U/L (39-117); Anion Gap 11 (12-20); Aspartate Amino Transferase 27 U/L (5-31); Bilirubin Direct 0.2 mg/dL (0.0-0.5); Bilirubin Total 0.7 mg/dL (0.0-1.0); Blood Urea Nitrogen 15 mg/dL (9-16); Carbon Dioxide 27 mmol/L (22-29); Chloride 106 mmol/L (96-108); Creatinine Clr Calc Pharmacy 98.9; Estimated Glomerular Filt Rate > 60; Glucose Random 115 mg/dL (60-115); Lipase 42 U/L (8-78); Potassium 3.7 mmol/L (3.3-5.1); Sodium 140 mmol/L (135-145); Total Protein 6.9 g/dL (6.5-8.0)
[2020-10-30 18:05] LABS: Glucose Urine UA NEG (NEG); Leukocyte Esterase Urine NEG (NEG); Nitrite Urine NEG (NEG); Specific Gravity - Urine >= 1.030 (1.005-1.025); Urine Blood NEG (NEG); Urine Ketones NEG (NEG); Urine Protein NEG (NEG-TRACE)
[2020-10-30 18:09] LABS: Appearance Urine CLEAR; Color Urine YELLOW; UPreg QC Valid YES; Urine Pregnancy NEGATIVE (NEGATIVE)
[2020-10-30] MEDS: iohexoL 350 MG/ML 100 ML INFUS..BTL IV (18:38)
--- NOTE | 2020-10-30 19:52 | PC.NURSE ---
pt is resting comfortably in bed. family at bedside. skin p/w/d. airway patent.
== END 2020-10-30 20:42 | disposition home or self-care (01) ==
PROVIDERS: Physician Assistant; Emergency Provider Emergency Medicine; PCP Internal Medicine
DX: S20.212A Contusion of left front wall of thorax, initial encounter (principal); W18.2XXA Fall in (into) shower or empty bathtub, initial encounter; I10 Essential (primary) hypertension; E11.9 Type 2 diabetes mellitus without complications; E78.5 Hyperlipidemia, unspecified; Y93.E1 Activity, personal bathing and showering; Y92.031 Bathroom in apartment as the place of occurrence of the external cause; Y99.9 Unspecified external cause status; Z79.899 Other long term (current) drug therapy; Z79.02 Long term (current) use of antithrombotics/antiplatelets; Z79.82 Long term (current) use of aspirin
CPT/HCPCS: 36415; 71101; 71260; 74177; 80048; 80076; 81003; 81025; 83690; 85025; 85610; 85730; 96360; 99284; Q9967

== ENCOUNTER 2020-11-15 14:08 | Emergency (ER) | payer OTHER, SELFPAY ==
[2020-11-15 15:14] VITALS: BP 185/86; PULSE 65; RESP 18; TEMP 37.1; O2SAT 98; BMI 40.5
[2020-11-15 16:21] LABS: MANUAL DIFF FLAG NO
[2020-11-15 16:23] LABS: Basophils Absolute Auto 0.1 X10*3/uL (0.0-0.2); Basophils Percent Auto 0.5 % (0-2); Eosinophils Absolute Auto 0.2 X10*3/uL (0.0-0.4); Eosinophils Percent Auto 1.6 % (0-4); Hematocrit 38.7 % (37-47); Hemoglobin 12.3 g/dl (12.0-16.0); Imm Gran Abs Auto 0.07 X10*3/uL (0.00-0.03); Imm Gran Pct Auto 0.8 % (0.0-0.4); Lymphocytes Absolute Auto 2.5 X10*3/uL (1.2-4.9); Lymphocytes Percent Auto 26.9 % (20-40); Mean Corpuscular HGB Conc 31.8 g/dl (31.0-35.0); Mean Corpuscular Hemoglobin 27.6 pg (27.0-33.0); Mean Corpuscular Volume 86.8 fL (80-98); Mean Platelet Volume 9.9 fL (9.4-12.3); Monocytes Absolute Auto 0.5 X10*3/uL (0.1-1.2); Monocytes Percent Auto 5.9 % (2-11); Neutrophils Absolute Auto 5.9 X10*3/uL (2.0-8.3); Neutrophils Percent Auto 64.3 % (45-73); Platelet Count 282 X10*3/uL (160-400); Red Blood Count 4.46 X10*6/uL (4.20-5.50); Red Cell Distribution Width 13.6 % (11.0-16.0); White Blood Count 9.2 X10*3/uL (4.8-10.8)
[2020-11-15 16:49] LABS: Blood Urea Nitrogen 13 mg/dL (9-16); Calcium 9.3 mg/dL (8.4-10.2); Creatinine Clr Calc Pharmacy 92.3; Estimated Glomerular Filt Rate > 60; Glucose Random 152 mg/dL (60-115)
[2020-11-15 16:57] LABS: Anion Gap 12 (12-20); Carbon Dioxide 28 mmol/L (22-29); Chloride 106 mmol/L (96-108); Potassium 3.7 mmol/L (3.3-5.1); Sodium 142 mmol/L (135-145)
[2020-11-15 18:33] VITALS: BP 192/88; PULSE 68; RESP 18; O2SAT 99
--- NOTE | 2020-11-15 19:15 | PC.NURSE ---
Pt aaox4, reports migraine x 4 days with hx of same. Pt took 1g tylenol PO around 1840 tonight. Pt neuros grossly intact. Pt reports TORRES is R sided, +photosensitivity and nausea.
[2020-11-15 19:19] VITALS: BP 204/85; PULSE 65; RESP 17; TEMP 37.1; O2SAT 98
--- NOTE | 2020-11-15 19:21 | ECG_ITS ---
Test Reason : HEADACHE Blood Pressure : / mmHG Vent. Rate : 069 BPM Atrial Rate : 069 BPM P-R Int : 178 ms QRS Dur : 082 ms QT Int : 420 ms P-R-T Axes : 029 -15 -18 degrees QTc Int : 450 ms Normal sinus rhythm Minimal voltage criteria for LVH, may be normal variant Nonspecific ST and T wave abnormality Abnormal ECG When compared with ECG of 05-JAN-2018 13:35, No significant change was found Referred By: Jacey Zaragoza Electronically Signed By:Niles Charlton
--- NOTE | 2020-11-15 19:22 | ED.HA ---
HPI - Headache General Chief Complaint: Headache Stated Complaint: MIGRAINE Time Seen by Provider: 11/15/20 19:08 Source: patient Mode of arrival: ambulatory Limitations: no limitations History of Present Illness HPI Narrative: Patient comes emergency room complaining of a migraine headache. Patient states she usually gets right-sided headaches involving the right eye. The migraine headache is the same as usual, has been present for 4 days. Patient ran out of her hydrochlorothiazide 4 days ago. Patient's blood pressure on arrival 182/88. Patient states initially she had chest pressure a few days ago but self resolved, no chest pain or pressure at this time. Patient mostly complaining about the severe migraine headache. Patient states her vision is at baseline bilaterally and nausea. Patient took excess strength Tylenol prior to arrival Related Data Home Medications Medication Instructions Recorded Confirmed albuterol sulfate 90 mcg/actuation 2 puff PO QID PRN 03/21/20 11/02/20 aerosol inhaler blood sugar diagnostic #10 ea 03/21/20 11/02/20 cholecalciferol (vitamin D3) 50 50 mcg PO DAILY 03/21/20 11/02/20 mcg (2,000 unit) capsule hydrocortisone 2.5 % topical cream applic TOPICAL BID 03/21/20 11/02/20 lancets 28 gauge #100 ea 03/21/20 11/02/20 metronidazole 0.75 % topical cream applic TOPICAL BID 03/21/20 11/02/20 triamcinolone acetonide 0.1 % TOPICAL BID 03/21/20 11/02/20 lotion metoclopramide HCl 5 mg tablet 5 mg PO QIDACHS 10/17/20 11/02/20 Previous Rx's Medication Instructions Recorded pitavastatin calcium 2 mg tablet 2 mg PO QPM 30 Days #30 tab NS 05/02/20 hydroxyzine HCl 50 mg tablet 50 mg PO BEDTIME #30 tab 05/07/20 nystatin-triamcinolone 100,000 1 appl TOPICAL DAILY #15 g 05/09/20 unit/g-0.1 % topical cream zolpidem 10 mg tablet 10 mg PO BEDTIME #90 tab 06/27/20 pitavastatin calcium 2 mg tablet 2 mg PO QPM 30 Days #30 tab 08/03/20 aspirin 81 mg tablet,delayed 81 mg PO DAILY #90 tab 08/15/20 release metoclopramide HCl 5 mg tablet 5 mg PO .BIDAC 30 Days #60 tab 09/20/20 pantoprazole 40 mg tablet,delayed 40 mg PO DAILY 30 Days #30 tab 09/20/20 release carvedilol 3.125 mg tablet 3.125 mg PO BID 90 Days #180 tab 10/17/20 bismuth subsalicylate 262 mg 2 tab PO QID 30 Days #240 tab 10/19/20 chewable tablet acetaminophen [Tylenol Extra 500 mg PO Q6H PRN #20 tab 10/30/20 Strength] lidocaine [Lidoderm] 1 patch TOPICAL DAILY PRN #30 ea 10/30/20 MDD remove after 12 hours oxycodone 5 mg tablet 5 mg PO BID-TID PRN 3 Days #9 tab 11/02/20 tizanidine 4 mg tablet 4 mg PO TID PRN 10 Days #30 tab 11/02/20 hydrochlorothiazide 25 mg tablet 25 mg PO DAILY #90 tab 11/15/20 sumatriptan succinate 50 mg PO Q2-4H PRN #7 tab 11/15/20 Allergies Allergy/AdvReac Type Severity Reaction Status Date / Time ibuprofen [From Motrin] Allergy Intermediate UPSET Verified 11/15/20 15:11 STOMACH, abdominal pain morphine [MORPHINE] Allergy Intermediate PALPATATIONS, Verified 11/15/20 15:11 PANIC ATTACKS, nauseas,panic attack, heart palpitations amoxicillin [Prevpac] Allergy Unknown itchy Verified 11/15/20 15:11 throat atorvastatin [From LIPITOR] Allergy Unknown UNKNOWN Verified 11/15/20 15:11 lansoprazole [Prevpac] Allergy Unknown itchy Verified 11/15/20 15:11 throat omeprazole [From PRILOSEC] Allergy Unknown ITCHY Verified 11/15/20 15:11 THROAT pravastatin [PRAVASTATIN] Allergy Unknown UNKNOWN Verified 11/15/20 15:11 rosuvastatin [From CRESTOR] Allergy Unknown UNKNOWN Verified 11/15/20 15:11 terbinafine [TERBINAFINE] Allergy Unknown UNKNOWN Verified 11/15/20 15:11 Vicodin Allergy Unknown palpitations, Verified 11/15/20 15:11 itch clarithromycin [From BIAXIN] AdvReac Unknown ABD PAIN, Verified 11/15/20 15:11 DIARRHEA gabapentin [GABAPENTIN] AdvReac Unknown UNKNOWN, Verified 11/15/20 15:11 nausea, dizziness levofloxacin [LEVOFLOXACIN] AdvReac Unknown PALPITATION Verified 11/15/20 15:11 S tylenol with codeine Allergy Unknown fast heart Uncoded 11/04/20 05:53 rate Review of Systems Review of Systems: Constitutional : No Weight loss, No Fever, No Chills, No Night Sweats, No Fatigue, No Malaise ENT/Mouth : No Hearing loss, No Ear Pain, No Nasal Congestion, No Sinus Pain, No Hoarseness, No sore throat, No Rhinorrhea, No Swallowing Difficulty Eyes: No Eye Pain, No Swelling, No Redness, No Foreign Body, No Discharge, No Vision Changes Cardiovascular : No Chest Pain, No SOB, No Dyspnea on Exertion, No Orthopnea, No Edema, No Palpitations Respiratory : No Cough, No Sputum, No Wheezing, No Smoke Exposure, No Dyspnea Gastrointestinal : Complaining of Nausea, No Vomiting, No Diarrhea, No Constipation, No abdominal Pain, No Hematochezia, No Melena Genitourinary : no irregular bleeding, No Dysuria, No Urinary Frequency, No Hematuria, No Urinary Incontinence, No Urgency, No Flank Pain, No Urinary Flow Changes, No Hesitancy Musculoskeletal : No joint pain, No Myalgias, No Joint Swelling Skin : No Skin Lesions, No rash Neuro : No Weakness, No Numbness, No Paresthesias, No Loss of Consciousness, No Dizziness, complaining of right-sided migraine headache Psych : No Anxiety/Panic, No Depression, No SI/HI/AH/VH, No Social Issues, Heme/Lymph: No Bruising, No Bleeding,No Lymphadenopathy Endocrine : No Polyuria, No Polydipsia, No Temperature Intolerance [facility] Past Medical History Medical History Back pain Benign essential hypertension Candidiasis of mouth and esophagus Chest pain Diabetes mellitus Fibromyalgia Insomnia Mixed hyperlipidemia Morbid obesity with BMI of 40.0-44.9, adult Muscle strain of chest wall Polyarthralgia Surgical History H/O hemorrhoidectomy History of appendectomy History of dermoid cyst excision History of esophagogastroduodenoscopy (EGD) History of excision of lamina of cervical vertebra for decompression of spinal cord Hx of colonoscopy Family History Family History Father NIDGREER (non-insulin dependent diabetes mellitus in young) Cardiovascular disease Obesity Cancer of unknown origin Mother CAD (coronary artery disease) NIDGREER (non-insulin dependent diabetes mellitus in young) Brother Schizophrenia Degenerative disc disease H/O lymph node cancer Sister Breast cancer Paternal Grandmother Ovarian cancer, Onset Age: 45 Daughter Fibromyalgia Hypertension Cancer of unknown origin Social History Social History Household Members: None Alcohol intake: never Advance Directives: Yes Advance Directives Information Provided: Yes Advance Directives on File: No Patient : No Current occupational status: disabled Sexual orientation: Straight/Heterosexual Gender identity: female Physical Exam Vital Signs: Vital Signs: Last Vital Signs Temp 98.5 F 11/15/20 19:34 Pulse 64 11/15/20 19:37 Resp 14 11/15/20 19:34 BP 192/81 H 11/15/20 19:37 Pulse Ox 98 11/15/20 19:34 Body Mass Index 40.5 Appearance: Alert. Oriented X3. No acute distress. Eyes: Pupils equal, round and reactive to light. Normal visual fortune polyp, patient has photophobia ENT: Pharynx normal. Neck: Normal inspection. Neck supple. No lymph nodes noted. No crepitus CVS: Normal heart rate and rhythm. Pulses normal. Normal S1 and S2 Respiratory: No respiratory distress. Breath sounds normal. No Wheezing. No rales Abdomen: Soft and nontender. No rigidity. No distention. good BS x4 Skin: Skin warm and dry. Normal skin color. Normal skin turgor. Extremities: No lower extremity edema. No lower extremity edema. No Lacerations. No Rash Neuro: Oriented X 3. No motor deficit. No sensory deficit. Moving all extermities. No slurred speech. Course Course Course Narrative: Patient received 1 L of normal saline, Toradol, Reglan, Benadryl and for the high blood pressure also received p.o. labetalol 100 mg. At this time, patient states that the headache completely resolved, has no longer eye pain, no photophobia. Patient is ambulatory, patient states she feels completely back to baseline. Blood pressure 130/69. Patient states that she has a prescription of hydrochlorothiazide waiting for her pharmacy which she is going to go get now. MDM - Headache Lab Data Result diagrams: 11/15/20 16:14 11/15/20 16:14 Labs: Lab Results 11/15/20 11/15/20 11/15/20 Range/Units 16:14 16:14 16:14 WBC 9.2 (4.8-10.8) X10*3/uL RBC 4.46 (4.20-5.50) X10*6/uL Hgb 12.3 (12.0-16.0) g/dl Hct 38.7 (37-47) % MCV 86.8 (80-98) fL MCH 27.6 (27.0-33.0) pg MCHC 31.8 (31.0-35.0) g/dl RDW 13.6 (11.0-16.0) % Plt Count 282 (160-400) X10*3/uL MPV 9.9 (9.4-12.3) fL Immature Gran % (Auto) 0.8 H (0.0-0.4) % Neut % (Auto) 64.3 (45-73) % Lymph % (Auto) 26.9 (20-40) % [place] % (Auto) 5.9 (2-11) % Eos % (Auto) 1.6 (0-4) % Baso % (Auto) 0.5 (0-2) % Lymph # (Auto) 2.5 (1.2-4.9) X10*3/uL [place] # (Auto) 0.5 (0.1-1.2) X10*3/uL Eos # (Auto) 0.2 (0.0-0.4) X10*3/uL Baso # (Auto) 0.1 (0.0-0.2) X10*3/uL Abs Immat Gran (auto) 0.07 H (0.00-0.03) X10*3/uL Absolute Neuts (auto) 5.9 (2.0-8.3) X10*3/uL Absolute Nucleated RBC 0.000 (0.0-0.012) X10*3/uL Nucleated RBC % (auto) 0.0 (0.0-0.2) /100WBC Sodium 142 (135-145) mmol/L Potassium 3.7 (3.3-5.1) mmol/L Chloride 106 (96-108) mmol/L Carbon Dioxide 28 (22-29) mmol/L Anion Gap 12 (12-20) BUN 13 (9-16) mg/dL Creatinine 0.84 (0.5-1.4) mg/dL Estim Creat Clear Calc 92.3 Estimated GFR > 60 Random Glucose 152 H (60-115) mg/dL Calcium 9.3 (8.4-10.2) mg/dL Troponin I High Sens < 3.5 (<3.5-17.0) ng/L ECG Data Attestation: I personally reviewed and interpreted this ECG as follows: (Sinus rhythm, heart rate 69, no ST segment depression or elevation, no T-wave inversion, QTC 450) Discharge Plan Discharge Clinical Impression: Hypertension Migraine Qualifiers: Migraine type: unspecified Status migrainosus presence: without status migrainosus Intractability: not intractable Qualified Code(s): G43.909 - Migraine, unspecified, not intractable, without status migrainosus Patient Disposition: Home, Self-Care Instructions: Acute Headache (ED), Hypertension (ED) Additional Instructions: Please follow-up with your primary care physician tomorrow. If you have any worsening or new symptoms, please return to the emergency room or call 911 Prescriptions: New sumatriptan succinate 50 mg tablet 50 mg PO Q2-4H PRN (Reason: migraine headache) Qty: 7 RF: 0 No Action zolpidem 10 mg tablet 10 mg PO BEDTIME Qty: 90 RF: 1 aspirin 81 mg tablet,delayed release (DR/EC) 81 mg PO DAILY Qty: 90 RF: 0 hydrochlorothiazide 25 mg tablet 25 mg PO DAILY Qty: 90 RF: 0 acetaminophen [Tylenol Extra Strength] 500 mg tablet 500 mg PO Q6H PRN (Reason: pain or fever) Qty: 20 RF: 0 lidocaine [Lidoderm] 5 % adhesive patch,medicated 1 patch topical DAILY MDD remove after 12 hours PRN (Reason: pain) Qty: 30 RF: 0 pitavastatin calcium 2 mg tablet 2 mg PO QPM 30 Days Qty: 30 RF: 3 tizanidine 4 mg tablet 4 mg PO TID PRN (Reason: muscle pain; back pain) 10 Days Qty: 30 RF: 2 oxycodone 5 mg tablet 5 mg PO BID-TID PRN (Reason: pain, severe) 3 Days Qty: 9 RF: 0 pitavastatin calcium 2 mg tablet 2 mg PO QPM 30 Days Qty: 30 RF: 3 albuterol sulfate 90 mcg/actuation HFA aerosol inhaler 2 puff PO QID PRNRF: 0 triamcinolone acetonide 0.1 % lotion topical BID RF: 0 hydrocortisone 2.5 % cream topical BID RF: 0 metronidazole 0.75 % cream topical BID RF: 0 (DME) lancets 28 gauge misc See Rx Instructions ea topical DIRECTED Qty: 100 RF: 0 (DME) FreeStyle Lite Strips Strip See Rx Instructions ea Not Applicable DAILY Qty: 10 RF: 0 cholecalciferol (vitamin D3) 50 mcg (2,000 unit) capsule 50 mcg PO DAILY RF: 0 metoclopramide HCl [Reglan] 5 mg tablet 5 mg PO .BIDAC 30 Days Qty: 60 RF: 3 pantoprazole [Protonix] 40 mg tablet,delayed release (DR/EC) 40 mg PO DAILY 30 Days Qty: 30 RF: 3 bismuth subsalicylate [Bismuth] 262 mg tablet,chewable 2 tab PO QID 30 Days Qty: 240 RF: 3 hydroxyzine HCl 50 mg tablet 50 mg PO BEDTIME Qty: 30 RF: 1 nystatin-triamcinolone 100,000-0.1 unit/g-% cream 1 appl topical DAILY Qty: 15 RF: 0 metoclopramide HCl 5 mg tablet 5 mg PO QIDACHS RF: 0 carvedilol 3.125 mg tablet 3.125 mg PO BID 90 Days Qty: 180 RF: 1
[2020-11-15 19:34] VITALS: BP 192/81; PULSE 63; RESP 14; TEMP 36.9; O2SAT 98
[2020-11-15 19:37] VITALS: BP 192/81; PULSE 64
[2020-11-15] MEDS: Labetalol HCL 100 MG TABLET PO (19:37)
[2020-11-15] MEDS: diphenhydrAMINE HCL 50 MG/ML VIAL IVPUSH (19:38)
[2020-11-15] MEDS: Metoclopramide HCl 10 MG/2 ML VIAL IVPUSH (19:39)
[2020-11-15] MEDS: 0.9 % Sodium Chloride 1,000 ML 999 ML IVCONT (19:41)
[2020-11-15] MEDS: Ketorolac Tromethamine 30 MG/ML VIAL IVPUSH (19:41)
[2020-11-15 20:06] LABS: Troponin-I High Sensitivity < 3.5 ng/L (<3.5-17.0)
[2020-11-15 20:43] VITALS: BP 130/69; PULSE 59; RESP 17; O2SAT 98
== END 2020-11-15 21:00 | disposition home or self-care (01) ==
PROVIDERS: Emergency Provider Emergency Medicine; PCP Internal Medicine
DX: G43.909 Migraine, unspecified, not intractable, without status migrainosus (principal); I10 Essential (primary) hypertension; Z79.899 Other long term (current) drug therapy
CPT/HCPCS: 36415; 80048; 84484; 85025; 93005; 96365; 96375; 99284; J1200; J1885; J2765

== ENCOUNTER → 2020-12-03 15:08 | Outpatient (BNVA) | payer OTHER, SELFPAY | PROVIDERS: PCP Internal Medicine; Visit Provider Nurse Practitioner ==

== ENCOUNTER 2020-12-05 13:30 | Outpatient (REF) | payer OTHER, SELFPAY ==
[2020-12-05 14:49] LABS: Alanine Aminotransferase 26 U/L (0-31); Albumin Level 4.1 g/dL (3.5-5.0); Alkaline Phosphatase 111 U/L (39-117); Aspartate Amino Transferase 28 U/L (5-31); Bilirubin Direct 0.3 mg/dL (0.0-0.5); Bilirubin Total 1.1 mg/dL (0.0-1.0)
[2020-12-06 11:56] LABS: Alpha Fetoprotein 1.4 ng/mL
== END 2020-12-05 13:31 | disposition home or self-care (01) ==
LOC: HO.LAB 13:30
PROVIDERS: PCP Internal Medicine; Visit Provider Nurse Practitioner
DX: K75.81 Nonalcoholic steatohepatitis (NASH) (principal)
CPT/HCPCS: 36415; 80076; 82105; 87338

== ENCOUNTER 2021-01-17 12:26 | Outpatient (REF) | payer OTHER, SELFPAY ==
--- NOTE | ~2021-01-17 | US_ITS ---
EXAMINATION: US ABDOMEN LIMITED CLINICAL INFORMATION: HURD. COMPARISON: CT abdomen and pelvis 03/02/2021. Limited abdominal ultrasound 06/06/2020. TECHNIQUE: Real-time imaging of the right upper quadrant abdominal viscera. FINDINGS: PANCREAS: The head and the body of the pancreas are homogeneous in echotexture. The tail is obscured by overlying gas. LIVER: The liver is normal in size. The liver contour is normal. Parenchymal echogenicity is increased with areas of focal fatty sparing adjacent to the gallbladder. No focal hepatic lesion. There is no intrahepatic biliary duct dilatation seen. GALLBLADDER: Normal. The gallbladder is physiologically distended without evidence of stones, sludge, polyps, wall thickening or pericholecystic fluid. COMMON BILE DUCT: Normal in caliber measuring 0.3 cm in diameter. RIGHT KIDNEY: Small cyst seen in the right kidney on the previous exam is not well visualized on the present exam. No hydronephrosis. No renal calculi or focal parenchymal lesions. The kidney measures 11.4 cm in maximum dimension. FREE FLUID: None. US/US abdomen limited IMPRESSION: Diffuse hepatic steatosis with areas of focal fatty sparing adjacent to the gallbladder. The tail of the pancreas is not seen. Otherwise the rest of pancreas and gallbladder appear unremarkable. The right kidney is unremarkable. There is no cyst visualized at this time.
== END 2021-01-17 12:27 | disposition home or self-care (01) ==
LOC: HO.US 12:26
PROVIDERS: PCP Internal Medicine; Visit Provider Nurse Practitioner
DX: K75.81 Nonalcoholic steatohepatitis (NASH) (principal)
CPT/HCPCS: 76705

== ENCOUNTER → 2021-01-22 14:35 | Outpatient (BNVA) | payer OTHER, SELFPAY | PROVIDERS: PCP Internal Medicine; Visit Provider Nurse Practitioner ==

== ENCOUNTER 2021-01-29 13:32 | Outpatient (REF) | payer OTHER, SELFPAY ==
[2021-01-29 14:43] LABS: MANUAL DIFF FLAG NO
[2021-01-29 14:48] LABS: Glucose Urine UA NEG (NEG); Leukocyte Esterase Urine 1+ (NEG); Nitrite Urine NEG (NEG); PH 5.5 (5.0-8.0); Specific Gravity - Urine >= 1.030 (1.005-1.025); UACC Culture Trigger YES; Urine Blood NEG (NEG); Urine Ketones NEG (NEG); Urine Protein TRACE MG/DL (NEG-TRACE)
[2021-01-29 14:50] LABS: Appearance Urine HAZY; Color Urine YELLOW
[2021-01-29 14:50] LABS: Basophils Absolute Auto 0.1 X10*3/uL (0.0-0.2); Basophils Percent Auto 0.7 % (0-2); Eosinophils Absolute Auto 0.2 X10*3/uL (0.0-0.4); Eosinophils Percent Auto 2.9 % (0-4); Hematocrit 40.7 % (37-47); Hemoglobin 12.9 g/dl (12.0-16.0); Imm Gran Abs Auto 0.04 X10*3/uL (0.00-0.03); Imm Gran Pct Auto 0.5 % (0.0-0.4); Lymphocytes Absolute Auto 2.4 X10*3/uL (1.2-4.9); Lymphocytes Percent Auto 28.8 % (20-40); Mean Corpuscular HGB Conc 31.7 g/dl (31.0-35.0); Mean Corpuscular Hemoglobin 27.3 pg (27.0-33.0); Mean Platelet Volume 10.2 fL (9.4-12.3); Monocytes Absolute Auto 0.6 X10*3/uL (0.1-1.2); Monocytes Percent Auto 6.6 % (2-11); Neutrophils Absolute Auto 5.1 X10*3/uL (2.0-8.3); Neutrophils Percent Auto 60.5 % (45-73); Platelet Count 325 X10*3/uL (160-400); Red Blood Count 4.73 X10*6/uL (4.20-5.50); Red Cell Distribution Width 13.3 % (11.0-16.0); White Blood Count 8.4 X10*3/uL (4.8-10.8)
[2021-01-29 14:57] LABS: Bacteria Urine 1+ /LPF; RBC Urine 0 /HPF (0); Squamous Epithelial Cell Urine 3+ /LPF
[2021-01-29 15:08] LABS: Estimated Average Glucose 143 mg/dL; Hemoglobin A1c % 6.6 %
[2021-01-29 15:15] LABS: Alanine Aminotransferase 37 U/L (0-31); Albumin Level 4.2 g/dL (3.5-5.0); Alkaline Phosphatase 104 U/L (39-117); Anion Gap 12 (12-20); Aspartate Amino Transferase 37 U/L (5-31); Bilirubin Total 0.8 mg/dL (0.0-1.0); Blood Urea Nitrogen 13 mg/dL (9-16); Calcium 9.4 mg/dL (8.4-10.2); Carbon Dioxide 29 mmol/L (22-29); Chloride 106 mmol/L (96-108); Cholesterol 203 mg/dL; Estimated Glomerular Filt Rate > 60; Glucose Fasting 106 mg/dL (60-99); HDL Cholesterol 28 mg/dL; LDL Cholesterol Calculated 124 mg/dl; Potassium 4.6 mmol/L (3.3-5.1); Sodium 142 mmol/L (135-145); Total Protein 7.3 g/dL (6.5-8.0); Triglycerides 258 mg/dL
[2021-01-29 15:16] LABS: Creatinine Urine 383.35 mg/dL; Microalbum/Creatinine Ratio Ur 4.4 ug/mg cr
[2021-01-29 15:35] LABS: TSH reflex Free T4 1.66 uIU/mL (0.32-4.0)
== END 2021-01-29 13:33 | disposition home or self-care (01) ==
LOC: HO.LAB 13:32
PROVIDERS: PCP Internal Medicine; Visit Provider Internal Medicine
DX: E78.00 Pure hypercholesterolemia, unspecified (principal); I10 Essential (primary) hypertension; E11.9 Type 2 diabetes mellitus without complications
CPT/HCPCS: 36415; 80053; 80061; 81001; 82043; 83036; 84443; 85025; 87086

== ENCOUNTER 2021-02-07 12:40 | Outpatient (REF) | payer OTHER, SELFPAY ==
--- NOTE | 2021-02-14 12:35 | MHC.AU.HAS ---
Hearing Aid Evaluation Date of Visit: 02/07/21 Video Production Engineer Used: Khmer- In Person Historical Information: Description of Hearing: Normal from 250-2000 Hz, steeply sloping to profound sensorineural hearing loss bilaterally Current personal amplification information, if applicable: Pair of Phonak [place] Micro M BTE, obtained 03/06/2011 Summary: Patient received medical clearance for new hearing aids from ENT, Dr. Elliott. Hearing aid options were discussed. Hearing Aid Prescription: Based on the individual?s shared listening needs, communication environments, dexterity, desire for connectivity, and personal preferences, the following prescription for amplification has been made: Right ear: Final Assembly Worker: [place] Model: Audeo P70-$ Battery Size: Rechargeable Color: P1 Deicer Finisher: 1M Left ear: Final Assembly Worker: Phonak Model: Audeo P70-R Battery Size: Rechargeable Color: P1 Action Taken/Action Needed: Hearing Instrument Fitting to be scheduled when materials arrive Primary Diagnosis: H90.3 Bilateral Sensorineural Hearing Loss Signature: Provider: Kane Bhatia, [facility]
== END 2021-02-07 12:41 | disposition home or self-care (01) ==
LOC: HO.HAP 12:40
PROVIDERS: PCP Internal Medicine; Visit Provider Otolaryngology
DX: Z46.1 Encounter for fitting and adjustment of hearing aid (principal); H90.3 Sensorineural hearing loss, bilateral
CPT/HCPCS: 92591

== ENCOUNTER 2021-02-28 12:15 | Outpatient (REF) | payer OTHER, SELFPAY ==
--- NOTE | 2021-02-28 14:28 | MHC.AU.HFA ---
Hearing Instrument Fitting- Adult- Binaural Date of Visit: 02/28/21 Computer Systems Software Architect Used: [place]ish- In Person Hearing Instruments Dispensed: Right Ear: Real Estate Transaction Manager: Phonak Model: Audeo P70-R Serial Number: [id number] Repair Warranty: 05/14/2024 Loss and Damage Warranty: 05/14/2024 Battery Size: Rechargeable Color: P1 Head Machine Feeder: 1M Type of Dome: Small Open Type of Wax Guard: Cerushield Left Ear: Real Estate Transaction Manager: Phonak Model: Audeo P70-R Serial Number: [id number] Repair Warranty: 05/14/2024 Loss and Damage Warranty: 05/14/2024 Battery Size: Rechargeable Color: P1 Head Machine Feeder: 1M Type of Dome: Small Open Type of Wax Guard: CeruShield Summary of Fitting: Feedback manager wastewater was run. Verifit performed and levels adjusted to better reach targets. Patient was initially pleased with the overall sound, but felt her voice had too much of an echo. Reduced gain to 90%, which improved perception of the echo. De-activated tap controls. Volume control is active. Hearing aid care and maintenance were discussed and practiced. Hearing aids were paired to her phone and to the clifford. Recommendations: Patient is an experienced hearing aid user and will call for follow-up if needed. Diagnosis Code(s): Primary Diagnosis: H90.3 Bilateral Sensorineural Hearing Loss Signature: Provider: Kane Bhatia, [facility]
== END 2021-02-28 12:16 | disposition home or self-care (01) ==
LOC: HO.HAP 12:15
PROVIDERS: Visit Provider Otolaryngology
DX: Z46.1 Encounter for fitting and adjustment of hearing aid (principal); H90.3 Sensorineural hearing loss, bilateral
CPT/HCPCS: V5011; V5020; V5160; V5261

== ENCOUNTER → 2021-03-01 12:20 | Outpatient (BNVA) | payer OTHER, SELFPAY | PROVIDERS: PCP Internal Medicine; Visit Provider Nurse Practitioner Family | DX: M79.7 Fibromyalgia (principal); L40.9 Psoriasis, unspecified | CPT/HCPCS: 99212 ==

== ENCOUNTER → 2021-04-03 12:32 | Outpatient (BNVA) | payer OTHER, SELFPAY | PROVIDERS: PCP Internal Medicine; Referring Provider Internal Medicine; Visit Provider Surgery | DX: L72.9 Follicular cyst of the skin and subcutaneous tissue, unspecified (principal) | CPT/HCPCS: 99212 ==

== ENCOUNTER → 2021-04-23 14:58 | Outpatient (BNVA) | payer OTHER, SELFPAY | PROVIDERS: PCP Internal Medicine; Referring Provider Internal Medicine; Visit Provider Nurse Practitioner Family ==

== ENCOUNTER 2021-04-25 13:43 | Outpatient (REF) | payer OTHER, SELFPAY ==
--- NOTE | ~2021-04-25 | MM_ITS ---
EXAMINATION: MM SCREENING DIGITAL BREAST TOMOSYNTHESIS, BILATERAL CLINICAL INFORMATION: Screening. Asymptomatic. The lifetime risk of breast cancer based on the Tyrer-Cuzick Model is 15.1%. COMPARISON: Mammography: April 19, 2020 and studies dating back to May 18, 2013 TECHNIQUE: Digital breast tomosynthesis is performed in both the craniocaudal and mediolateral oblique views along with computer-aided detection (CAD). Synthesized 2D images are generated from the tomosynthesis. FINDINGS: There are scattered areas of fibroglandular density (ACR BI-RADS breast composition Category b). There are no significant masses, abnormal calcifications, or other abnormalities. MM/MM tomosynthesis screening BI IMPRESSION: There are no significant changes from prior study. ASSESSMENT: BI-RADS 1: Negative RECOMMENDATION: Routine annual mammography screening. This patient's information was entered into a reminder system with a target due date for their next mammogram.
== END 2021-04-25 13:44 | disposition home or self-care (01) ==
LOC: HO.MAMMO 13:43
PROVIDERS: Visit Provider Internal Medicine
DX: Z12.31 Encounter for screening mammogram for malignant neoplasm of breast (principal)
CPT/HCPCS: 77063; 77067

== ENCOUNTER 2021-04-25 15:17 | Emergency (ER) | payer OTHER, SELFPAY ==
--- NOTE | ~2021-04-25 | XR_ITS ---
EXAMINATION: XR CHEST CLINICAL INFORMATION: Chest pain. COMPARISON: Chest done on 10/30/2020. TECHNIQUE: Frontal view of the chest was obtained. FINDINGS: No significant abnormality is noted involving the heart, lungs, mediastinum, bony thorax or soft tissues. XR/XR chest 1V IMPRESSION: Unremarkable examination.
[2021-04-25 15:53] VITALS: BP 183/95; PULSE 62; RESP 19; TEMP 36.7; O2SAT 98; BMI 40.5
--- NOTE | 2021-04-25 15:58 | ECG_ITS ---
Test Reason : CHEST PAIN Blood Pressure : / mmHG Vent. Rate : 059 BPM Atrial Rate : 059 BPM P-R Int : 186 ms QRS Dur : 086 ms QT Int : 420 ms P-R-T Axes : -01 -10 010 degrees QTc Int : 415 ms Sinus bradycardia Moderate voltage criteria for LVH, may be normal variant ( R in aVL , Chip product ) Nonspecific T wave abnormality Lateral leads Abnormal ECG When compared with ECG of 15-NOV-2020 19:31, T wave amplitude has increased in Anterior leads Referred By: Generic ED Physician Electronically Signed By:TANK KELLY MD
[2021-04-25 16:29] LABS: MANUAL DIFF FLAG NO
[2021-04-25 16:38] LABS: Basophils Absolute Auto 0.1 X10*3/uL (0.0-0.2); Basophils Percent Auto 0.6 % (0-2); Eosinophils Absolute Auto 0.1 X10*3/uL (0.0-0.4); Eosinophils Percent Auto 1.3 % (0-4); Hematocrit 40.1 % (37.0-47.0); Hemoglobin 12.7 g/dl (12.0-16.0); Imm Gran Abs Auto 0.04 X10*3/uL (0.00-0.03); Imm Gran Pct Auto 0.4 % (0.0-0.4); Lymphocytes Absolute Auto 2.9 X10*3/uL (1.2-4.9); Mean Corpuscular HGB Conc 31.7 g/dl (31.0-35.0); Mean Corpuscular Hemoglobin 27.3 pg (27.0-33.0); Mean Corpuscular Volume 86.2 fL (80.0-98.0); Mean Platelet Volume 10.1 fL (9.4-12.3); Monocytes Absolute Auto 0.8 X10*3/uL (0.1-1.2); Monocytes Percent Auto 8.4 % (2-11); Neutrophils Percent Auto 60.3 % (45-73); Platelet Count 296 X10*3/uL (160-400); Red Blood Count 4.65 X10*6/uL (4.20-5.50); Red Cell Distribution Width 13.5 % (11.0-16.0)
[2021-04-25 16:49] LABS: Anion Gap 11 (12-20); Blood Urea Nitrogen 16 mg/dL (9-16); Calcium 9.2 mg/dL (8.4-10.2); Carbon Dioxide 27 mmol/L (22-29); Chloride 107 mmol/L (96-108); Creatinine Clr Calc Pharmacy 97.1; Estimated Glomerular Filt Rate > 60; Glucose Random 127 mg/dL (60-115); Potassium 4.1 mmol/L (3.3-5.1); Sodium 141 mmol/L (135-145)
[2021-04-25 16:54] LABS: Troponin-I High Sensitivity < 3.5 ng/L (<3.5-17.0)
[2021-04-25 18:22] VITALS: BP 182/83; PULSE 61; RESP 16; O2SAT 100
[2021-04-25 18:25] VITALS: PULSE 62
--- NOTE | 2021-04-25 18:25 | PC.NURSE ---
Pt states that she was switched from carvedalol to propranolol for coverage of both migraine and HTN with her first dose being today. Today she developed CP and elevated BP with systolic in the 180s. She also takes HCTZ which has not changed. She has been compliant with her medications as per MD orders.
--- NOTE | 2021-04-25 18:34 | ED_ITS ---
HPI - Chest Pain General Chief Complaint: Chest Pain Stated Complaint: high bp,nausea Time Seen by Provider: 04/25/21 18:34 Source: patient Mode of arrival: ambulatory Limitations: no limitations History of Present Illness HPI narrative: Patient has history of hypertension used to be on carvedilol 3.125 and hydrochlorothiazide 25 mg daily change to propranolol 20 mg daily by the PCP for migraine headache since patient started this medicine yesterday patient blood pressure is on the higher side on arrival patient's blood pressure was 183/95 patient feels heavy in the chest does not feel good no headache no nausea no vomiting patient does get migraine once in 2- 3 months Related Data Home Medications Medication Instructions Recorded Confirmed albuterol sulfate 90 mcg/actuation 2 puff PO QID PRN 03/21/20 04/03/21 aerosol inhaler blood sugar diagnostic #10 ea 03/21/20 04/03/21 cholecalciferol (vitamin D3) 50 50 mcg PO DAILY 03/21/20 04/03/21 mcg (2,000 unit) capsule hydrocortisone 2.5 % topical cream applic TOPICAL BID 03/21/20 04/03/21 lancets 28 gauge #100 ea 03/21/20 04/03/21 metronidazole 0.75 % topical cream applic TOPICAL BID 03/21/20 04/03/21 triamcinolone acetonide 0.1 % TOPICAL BID 03/21/20 04/03/21 lotion alclometasone 0.05 % topical cream appl TOPICAL 02/04/21 04/03/21 betamethasone, augmented 0.05 % TOPICAL BID PRN 02/04/21 04/03/21 lotion calcipotriene 0.005 % scalp TOPICAL 02/04/21 04/03/21 solution triamcinolone acetonide 0.1 % 1 appl TOPICAL BID-TID 02/04/21 04/03/21 topical cream blood pressure monitor 02/06/21 04/03/21 blood-glucose meter (FreeStyle 02/06/21 04/03/21 Lite Meter) propranolol 20 mg tablet 20 mg PO DAILY 04/03/21 04/03/21 Previous Rx's Medication Instructions Recorded pitavastatin calcium 2 mg tablet 2 mg PO QPM 30 Days #30 tab NS 05/02/20 hydroxyzine HCl 50 mg tablet 50 mg PO BEDTIME #30 tab 05/07/20 nystatin-triamcinolone 100,000 1 appl TOPICAL DAILY #15 g 05/09/20 unit/g-0.1 % topical cream carvedilol 3.125 mg tablet 3.125 mg PO BID 90 Days #180 tab 10/17/20 acetaminophen 500 mg tablet 500 mg PO Q6H PRN #20 tab 10/30/20 (Tylenol Extra Strength) tizanidine 4 mg tablet 4 mg PO TID PRN 10 Days #30 tab 11/02/20 bismuth subsalicylate 262 mg 2 tab PO QID 30 Days #240 tab 01/22/21 chewable tablet (Bismuth) metoclopramide HCl 5 mg tablet 5 mg PO .bidac and qhs 30 Days #90 01/22/21 (Reglan) tab pantoprazole 40 mg tablet,delayed 40 mg PO BID 30 Days #60 tab 01/22/21 release (Protonix) hydrochlorothiazide 25 mg tablet 25 mg PO DAILY 90 Days #90 tab 02/04/21 sumatriptan succinate 50 mg tablet 50 mg PO Q2-4H PRN 30 Days #10 tab 02/04/21 blood pressure monitor #1 ea 02/14/21 blood-glucose meter (FreeStyle #1 ea 02/14/21 Lite Meter) zolpidem 10 mg tablet 10 mg PO BEDTIME PRN 90 Days #90 03/25/21 tab aspirin 81 mg tablet,delayed 81 mg PO DAILY #90 tab 04/25/21 release Allergies Allergy/AdvReac Type Severity Reaction Status Date / Time ibuprofen [From Motrin] Allergy Intermediate UPSET Verified 04/25/21 15:53 STOMACH, abdominal pain morphine [MORPHINE] Allergy Intermediate PALPATATIONS, Verified 04/25/21 15:53 PANIC ATTACKS, nauseas,panic attack, heart palpitations amoxicillin [Prevpac] Allergy Unknown itchy Verified 04/25/21 15:53 throat atorvastatin [From LIPITOR] Allergy Unknown UNKNOWN Verified 04/25/21 15:53 lansoprazole [Prevpac] Allergy Unknown itchy Verified 04/25/21 15:53 throat omeprazole [From PRILOSEC] Allergy Unknown ITCHY Verified 04/25/21 15:53 THROAT pravastatin [PRAVASTATIN] Allergy Unknown UNKNOWN Verified 04/25/21 15:53 rosuvastatin [From CRESTOR] Allergy Unknown UNKNOWN Verified 04/25/21 15:53 terbinafine [TERBINAFINE] Allergy Unknown UNKNOWN Verified 04/25/21 15:53 Vicodin Allergy Unknown palpitations, Verified 04/25/21 15:53 itch clarithromycin [From BIAXIN] AdvReac Unknown ABD PAIN, Verified 04/25/21 15:53 DIARRHEA gabapentin [GABAPENTIN] AdvReac Unknown UNKNOWN, Verified 04/25/21 15:53 nausea, dizziness levofloxacin [LEVOFLOXACIN] AdvReac Unknown PALPITATION Verified 04/25/21 15:53 S tylenol with codeine Allergy Unknown fast heart Uncoded 03/01/21 14:54 rate Review of Systems Review of Systems: Yes all other systems are reviewed and are negative [facility] Past Medical History Medical History Arthritis Back pain Benign essential hypertension Candidiasis of mouth and esophagus Carpal tunnel syndrome Chest pain Diabetes mellitus Dizziness Fibromyalgia Hypertension Insomnia Mixed hyperlipidemia Morbid obesity with BMI of 40.0-44.9, adult Obesity (BMI 30-39.9) Polyarthralgia Scalp cyst Type 2 diabetes mellitus without complication Surgical History H/O hemorrhoidectomy History of appendectomy History of dermoid cyst excision History of esophagogastroduodenoscopy (EGD) History of excision of lamina of cervical vertebra for decompression of spinal cord Hx of colonoscopy Family History Family History Father NIDDY (non-insulin dependent diabetes mellitus in young) Cardiovascular disease Obesity Cancer of unknown origin Mother CAD (coronary artery disease) NIDDY (non-insulin dependent diabetes mellitus in young) Brother Schizophrenia Degenerative disc disease H/O lymph node cancer Sister Breast cancer Paternal Grandmother Ovarian cancer, Onset Age: 45 Daughter Fibromyalgia Hypertension Cancer of unknown origin Other Mental health problem Social History Social History Household Members: None Housing: Apartment Alcohol intake: never Patient Tobacco Use Status: Never used Tobacco Second Hand Smoke Exposure: No Use of substances other than those prescribed or required for medical reasons: No Advance Directives: No Advance Directives Information Provided: No Patient : No service: No Current occupational status: disabled Sexual orientation: Straight/Heterosexual Gender identity: Female Physical Exam Vital Signs: Vital Signs: Last Vital Signs Temp 98.1 F 04/25/21 15:53 Pulse 61 04/25/21 18:22 Resp 16 04/25/21 18:22 BP 182/83 H 04/25/21 18:22 Pulse Ox 100 04/25/21 18:22 Body Mass Index 40.5 Appearance: Alert. Oriented X3. No acute distress. Eyes: No pallor or icterus ENT: Pharynx normal. Oral Mucosa moist Neck: Normal inspection. Neck supple. CVS: Normal heart rate and rhythm. Pulses normal. Respiratory: No respiratory distress. Equal air entry bilateral, no wheezing/rales/rhonchi Abdomen: Soft and nontender. Bowel sounds are present, no mass palpable, no CVA tenderness Skin: Skin warm and dry. Normal skin color. Normal skin turgor. Extremities: No lower extremity edema. No calf tenderness Neuro: Oriented X 3. No motor deficit. MDM - Chest Pain Lab Data Attestation: I reviewed the patient's lab results. Result diagrams: 04/25/21 16:16 04/25/21 16:16 Labs: Lab Results 04/25/21 04/25/21 04/25/21 Range/Units 16:16 16:16 16:16 WBC 10.0 (4.8-10.8) X10*3/uL RBC 4.65 (4.20-5.50) X10*6/uL Hgb 12.7 (12.0-16.0) g/dl Hct 40.1 (37.0-47.0) % MCV 86.2 (80.0-98.0) fL MCH 27.3 (27.0-33.0) pg MCHC 31.7 (31.0-35.0) g/dl RDW 13.5 (11.0-16.0) % Plt Count 296 (160-400) X10*3/uL MPV 10.1 (9.4-12.3) fL Immature Gran % (Auto) 0.4 (0.0-0.4) % Neut % (Auto) 60.3 (45-73) % Lymph % (Auto) 29.0 (20-40) % [place] % (Auto) 8.4 (2-11) % Eos % (Auto) 1.3 (0-4) % Baso % (Auto) 0.6 (0-2) % Lymph # (Auto) 2.9 (1.2-4.9) X10*3/uL [place] # (Auto) 0.8 (0.1-1.2) X10*3/uL Eos # (Auto) 0.1 (0.0-0.4) X10*3/uL Baso # (Auto) 0.1 (0.0-0.2) X10*3/uL Abs Immat Gran (auto) 0.04 H (0.00-0.03) X10*3/uL Absolute Neuts (auto) 6.0 (2.0-8.3) x10*3/uL Absolute Nucleated RBC 0.000 (0.0-0.012) X10*3/uL Nucleated RBC % (auto) 0.0 (0.0-0.2) /100WBC Sodium 141 (135-145) mmol/L Potassium 4.1 (3.3-5.1) mmol/L Chloride 107 (96-108) mmol/L Carbon Dioxide 27 (22-29) mmol/L Anion Gap 11 L (12-20) BUN 16 (9-16) mg/dL Creatinine 0.79 (0.5-1.4) mg/dL Estim Creat Clear Calc 97.1 Estimated GFR > 60 Random Glucose 127 H (60-115) mg/dL Calcium 9.2 (8.4-10.2) mg/dL Troponin I High Sens < 3.5 (<3.5-17.0) ng/L ECG Data ECG #1: Attestation: I personally reviewed and interpreted this ECG as follows: Interpretation: Sinus bradycardia heart rate 59 beats per minute LVH no acute ST T wave changes no acute ischemia Discharge Plan Discharge Clinical Impression: Hypertension Patient Disposition: Home, Self-Care Instructions: Chronic Hypertension (ED) Additional Instructions: stop propranolol Start taking your carvedilol and hydrochlorothiazide as prescribed by senior teradata developer for blood pressure control If the blood pressure still elevated higher than 140/90 increase the dose of carvedilol to 6.25 mg daily and follow with senior teradata developer Prescriptions: No Action (DME) blood-glucose meter [FreeStyle Lite Meter] Kit See Rx Instructions .Route RF: 0 (DME) blood pressure monitor Kit See Rx Instructions .Route RF: 0 (DME) blood pressure monitor Kit See Rx Instructions .Route Qty: 1 RF: 0 (DME) blood-glucose meter [FreeStyle Lite Meter] Kit See Rx Instructions .Route Qty: 1 RF: 0 zolpidem 10 mg tablet 10 mg PO BEDTIME PRN (Reason: insomnia) 90 Days Qty: 90 RF: 0 aspirin 81 mg tablet,delayed release (DR/EC) 81 mg PO DAILY Qty: 90 RF: 1 acetaminophen [Tylenol Extra Strength] 500 mg tablet 500 mg PO Q6H PRN (Reason: pain or fever) Qty: 20 RF: 0 pitavastatin calcium 2 mg tablet 2 mg PO QPM 30 Days Qty: 30 RF: 3 tizanidine 4 mg tablet 4 mg PO TID PRN (Reason: muscle pain; back pain) 10 Days Qty: 30 RF: 2 betamethasone, augmented 0.05 % lotion topical BID PRNRF: 0 calcipotriene 0.005 % solution topical RF: 0 triamcinolone acetonide 0.1 % cream 1 appl topical BID-TID RF: 0 alclometasone 0.05 % cream topical RF: 0 sumatriptan succinate 50 mg tablet 50 mg PO Q2-4H PRN (Reason: migraine headache) 30 Days Qty: 10 RF: 1 hydrochlorothiazide 25 mg tablet 25 mg PO DAILY 90 Days Qty: 90 RF: 1 albuterol sulfate 90 mcg/actuation HFA aerosol inhaler 2 puff PO QID PRNRF: 0 triamcinolone acetonide 0.1 % lotion topical BID RF: 0 hydrocortisone 2.5 % cream topical BID RF: 0 metronidazole 0.75 % cream topical BID RF: 0 (DME) lancets 28 gauge misc See Rx Instructions ea topical DIRECTED Qty: 100 RF: 0 (DME) FreeStyle Lite Strips Strip See Rx Instructions ea Not Applicable DAILY Qty: 10 RF: 0 cholecalciferol (vitamin D3) 50 mcg (2,000 unit) capsule 50 mcg PO DAILY RF: 0 hydroxyzine HCl 50 mg tablet 50 mg PO BEDTIME Qty: 30 RF: 1 nystatin-triamcinolone 100,000-0.1 unit/g-% cream 1 appl topical DAILY Qty: 15 RF: 0 carvedilol 3.125 mg tablet 3.125 mg PO BID 90 Days Qty: 180 RF: 1 bismuth subsalicylate [Bismuth] 262 mg tablet,chewable 2 tab PO QID 30 Days Qty: 240 RF: 6 metoclopramide HCl [Reglan] 5 mg tablet 5 mg PO .bidac and qhs 30 Days Qty: 90 RF: 6 pantoprazole [Protonix] 40 mg tablet,delayed release (DR/EC) 40 mg PO BID 30 Days Qty: 60 RF: 6 propranolol 20 mg tablet 20 mg PO DAILY RF: 0 Interventions: ED Discharge Assessment Last Done: 04/25/21 19:19 Discharge Date/Time: 04/25/21 19:21
[2021-04-25] MEDS: lisinopriL 20 MG TABLET PO (18:54)
== END 2021-04-25 19:21 | disposition home or self-care (01) ==
PROVIDERS: Emergency Provider Internal Medicine; PCP Internal Medicine
DX: I10 Essential (primary) hypertension (principal); E11.9 Type 2 diabetes mellitus without complications; Z79.899 Other long term (current) drug therapy
CPT/HCPCS: 36415; 71045; 80048; 84484; 85025; 93005; 99284; 99285

== ENCOUNTER 2021-04-30 12:54 | Outpatient (REF) | payer OTHER, SELFPAY ==
[2021-04-30 13:04] LABS: MANUAL DIFF FLAG NO
[2021-04-30 13:55] LABS: Basophils Absolute Auto 0.1 X10*3/uL (0.0-0.2); Basophils Percent Auto 0.5 % (0-2); Eosinophils Absolute Auto 0.2 X10*3/uL (0.0-0.4); Eosinophils Percent Auto 1.8 % (0-4); Hematocrit 41.4 % (37.0-47.0); Imm Gran Abs Auto 0.05 X10*3/uL (0.00-0.03); Imm Gran Pct Auto 0.5 % (0.0-0.4); Lymphocytes Absolute Auto 2.5 X10*3/uL (1.2-4.9); Lymphocytes Percent Auto 27.7 % (20-40); Mean Corpuscular HGB Conc 31.4 g/dl (31.0-35.0); Mean Corpuscular Hemoglobin 27.2 pg (27.0-33.0); Mean Corpuscular Volume 86.6 fL (80.0-98.0); Mean Platelet Volume 10.3 fL (9.4-12.3); Monocytes Absolute Auto 0.7 X10*3/uL (0.1-1.2); Monocytes Percent Auto 7.1 % (2-11); Neutrophils Absolute Auto 5.7 x10*3/uL (2.0-8.3); Neutrophils Percent Auto 62.4 % (45-73); Platelet Count 281 X10*3/uL (160-400); Red Blood Count 4.78 X10*6/uL (4.20-5.50); Red Cell Distribution Width 13.5 % (11.0-16.0); White Blood Count 9.1 X10*3/uL (4.8-10.8)
[2021-04-30 14:05] LABS: Estimated Average Glucose 148 mg/dL; Hemoglobin A1c % 6.8 %
[2021-04-30 14:12] LABS: Alanine Aminotransferase 29 U/L (0-31); Albumin Level 4.2 g/dL (3.5-5.0); Alkaline Phosphatase 101 U/L (39-117); Anion Gap 8 (12-20); Aspartate Amino Transferase 28 U/L (5-31); Bilirubin Total 0.9 mg/dL (0.0-1.0); Blood Urea Nitrogen 14 mg/dL (9-16); Calcium 9.6 mg/dL (8.4-10.2); Carbon Dioxide 32 mmol/L (22-29); Chloride 105 mmol/L (96-108); Cholesterol 230 mg/dL; Estimated Glomerular Filt Rate > 60; Glucose Fasting 116 mg/dL (60-99); HDL Cholesterol 31 mg/dL; LDL Cholesterol Calculated 150 mg/dl; Potassium 4.5 mmol/L (3.3-5.1); Sodium 140 mmol/L (135-145); Total Protein 7.1 g/dL (6.5-8.0); Triglycerides 245 mg/dL
[2021-04-30 14:15] LABS: Appearance Urine CLEAR; Color Urine YELLOW; Glucose Urine UA NEG (NEG); Leukocyte Esterase Urine TRACE (NEG); Nitrite Urine NEG (NEG); PH 5.5 (5.0-8.0); Specific Gravity - Urine >= 1.030 (1.005-1.025); UACC Culture Trigger YES; Urine Blood NEG (NEG); Urine Ketones 5 MG/DL (NEG); Urine Protein TRACE MG/DL (NEG-TRACE)
[2021-04-30 14:36] LABS: Vitamin D 25-OH Total 27.1 ng/mL (>30)
[2021-04-30 14:37] LABS: Mucus Urine 1+ /LPF; Squamous Epithelial Cell Urine 1+ /LPF
[2021-04-30 14:38] LABS: Bacteria Urine 1+ /LPF; RBC Urine 0 /HPF (0); WBC Urine 0-2 /HPF (0-4)
== END 2021-04-30 12:55 | disposition home or self-care (01) ==
LOC: HO.LAB 12:54
PROVIDERS: PCP Internal Medicine; Visit Provider Internal Medicine
DX: E78.00 Pure hypercholesterolemia, unspecified (principal); E11.9 Type 2 diabetes mellitus without complications; I10 Essential (primary) hypertension; E55.9 Vitamin D deficiency, unspecified
CPT/HCPCS: 36415; 80053; 80061; 81001; 81003; 82306; 83036; 84443; 85025; 87086

== ENCOUNTER 2021-05-17 14:48 | Outpatient (REF) | payer OTHER, SELFPAY ==
[2021-05-18 16:26] LABS: CT PCR NOT DETECTED (Not Detect.); NG PCR NOT DETECTED (Not Detect.)
[2021-05-19 13:06] LABS: BV Int Neg Control Negative (Negative); BV Int Pos Control Positive (Positive)
[2021-05-22 13:47] LABS: HPV mRNA E6/E7 rflx Not Detected (Not Detected)
== END 2021-05-17 14:49 | disposition home or self-care (01) ==
LOC: HO.LAB 14:48
PROVIDERS: Visit Provider Advanced Practice Midwife
DX: Z01.419 Encounter for gynecological examination (general) (routine) without abnormal findings (principal); N89.8 Other specified noninflammatory disorders of vagina; R23.2 Flushing; R30.0 Dysuria; R10.2 Pelvic and perineal pain; N86 Erosion and ectropion of cervix uteri; Z20.2 Contact with and (suspected) exposure to infections with a predominantly sexual mode of transmission
CPT/HCPCS: 81003; 87480; 87491; 87510; 87591; 87624; 87660; 88142

== ENCOUNTER 2021-05-31 13:53 | Outpatient (REF) | payer OTHER, SELFPAY ==
--- NOTE | ~2021-05-31 | US_ITS ---
EXAMINATION: US PELVIS CLINICAL INFORMATION: Pelvic and perineal pain COMPARISON: Pelvic ultrasound on 04/06/2020 TECHNIQUE: Ultrasound of the pelvis is performed using both transabdominal and transvaginal transducers along with Doppler. Transvaginal imaging is performed due to inadequate visualization transabdominally. FINDINGS: Uterus: The uterus is anteverted and measures 9.5 x 4.9 x 6.0 cm. The cervix measures 1.7 cm in length. The double wall endometrial thickness is 6 mm. The uterus is smooth in contour and has normal myometrial echogenicity. There is a right posterior fibroid that measures 1.6 x 1.7 x 1.5 cm. The second fibroid identified on the previous exam is not visualized today. Adnexa: Both ovaries are visualized. There is normal color flow to the adnexa. There is no ovarian torsion. There is no pelvic ascites or fluid collection. Right ovary measures 3.2 x 1.4 x 1.3 cm. Left ovary measures 3.4 x 2.1 x 2.4 cm. US/US pelvic and transvaginal IMPRESSION: Small fibroid in the uterus. One fibroid identified on previous exam was not visualized today. Otherwise pelvic ultrasound.
== END 2021-05-31 13:54 | disposition home or self-care (01) ==
LOC: HO.HMGCX 13:53
PROVIDERS: Visit Provider Advanced Practice Midwife
DX: R10.2 Pelvic and perineal pain (principal)
CPT/HCPCS: 76830; 76856

== ENCOUNTER 2021-06-05 18:15 | Emergency (ER) | payer OTHER, SELFPAY ==
[2021-06-05 18:43] VITALS: BP 186/92; PULSE 74; RESP 18; TEMP 36.8; O2SAT 100; BMI 39.3
[2021-06-05 21:51] LABS: COVID-19 Test Negative (Negative)
[2021-06-05 21:53] VITALS: BP 175/79; PULSE 64; RESP 16; TEMP 37
[2021-06-05 22:55] LABS: IDNOW Serial# 9DD0AD1C; Strep A Nucleic Acid Negative (Negative)
--- NOTE | 2021-06-05 23:14 | ED_ITS ---
HPI - URI/Sore Throat General Chief Complaint: Upper Respiratory Symptoms Stated Complaint: flu like symptoms Time Seen by Provider: 06/05/21 21:57 Source: patient Mode of arrival: ambulatory History of Present Illness HPI Narrative: 51-year-old female with a past medical history of arthritis, back pain, diabetes, fibromyalgia, hypertension, hyperlipidemia, obesity, presenting to the ED complaining of dry cough, myalgias/body aches, sore throat, mild headache x3 days. presenting to ED with similar symptoms. Denies SOB, CP, ear pain, difficulty swallowing/inability to swallow, fever MD elicited complaint: sore throat, rhinorrhea and nasal congestion Related Data Home Medications Medication Instructions Recorded Confirmed albuterol sulfate 90 mcg/actuation 2 puff PO QID PRN 03/21/20 05/11/21 aerosol inhaler hydrocortisone 2.5 % topical cream applic TOPICAL BID 03/21/20 05/11/21 metronidazole 0.75 % topical cream applic TOPICAL BID 03/21/20 05/11/21 triamcinolone acetonide 0.1 % TOPICAL BID 03/21/20 05/11/21 lotion alclometasone 0.05 % topical cream appl TOPICAL 02/04/21 05/11/21 betamethasone, augmented 0.05 % TOPICAL BID PRN 02/04/21 05/11/21 lotion calcipotriene 0.005 % scalp TOPICAL 02/04/21 05/11/21 solution triamcinolone acetonide 0.1 % 1 appl TOPICAL BID-TID 02/04/21 05/11/21 topical cream Previous Rx's Medication Instructions Recorded pitavastatin calcium 2 mg tablet 2 mg PO QPM 30 Days #30 tab NS 05/02/20 hydroxyzine HCl 50 mg tablet 50 mg PO BEDTIME #30 tab 05/07/20 nystatin-triamcinolone 100,000 1 appl TOPICAL DAILY #15 g 05/09/20 unit/g-0.1 % topical cream carvedilol 3.125 mg tablet 3.125 mg PO BID 90 Days #180 tab 10/17/20 acetaminophen 500 mg tablet 500 mg PO Q6H PRN #20 tab 10/30/20 (Tylenol Extra Strength) tizanidine 4 mg tablet 4 mg PO TID PRN 10 Days #30 tab 11/02/20 bismuth subsalicylate 262 mg 2 tab PO QID 30 Days #240 tab 01/22/21 chewable tablet (Bismuth) metoclopramide HCl 5 mg tablet 5 mg PO .bidac and qhs 30 Days #90 01/22/21 (Reglan) tab pantoprazole 40 mg tablet,delayed 40 mg PO BID 30 Days #60 tab 01/22/21 release (Protonix) sumatriptan succinate 50 mg tablet 50 mg PO Q2-4H PRN 30 Days #10 tab 02/04/21 aspirin 81 mg tablet,delayed 81 mg PO DAILY #90 tab 04/25/21 release zolpidem 10 mg tablet 10 mg PO BEDTIME PRN 90 Days #90 04/28/21 tab blood pressure monitor #1 ea 05/06/21 blood sugar diagnostic #100 ea 05/06/21 blood-glucose meter (FreeStyle #1 ea 05/06/21 Lite Meter) lancets 28 gauge #100 ea 05/06/21 cholecalciferol (vitamin D3) 50 50 mcg PO DAILY 90 Days #90 cap 05/08/21 mcg (2,000 unit) capsule meclizine 25 mg tablet 25 mg PO DAILY PRN 15 Days #15 tab 05/08/21 hydrochlorothiazide 25 mg tablet 25 mg PO DAILY #90 tab 05/25/21 fluticasone propionate 50 2 spray INTRANASAL DAILY #16 g 06/05/21 mcg/actuation nasal spray,suspension (Flonase Allergy Relief) Allergies Allergy/AdvReac Type Severity Reaction Status Date / Time amoxicillin [Prevpac] Allergy Intermediate itchy Verified 06/05/21 18:43 throat ibuprofen [From Motrin] Allergy Intermediate UPSET Verified 06/05/21 18:43 STOMACH, abdominal pain lansoprazole [Prevpac] Allergy Intermediate itchy Verified 06/05/21 18:43 throat morphine [MORPHINE] Allergy Intermediate PALPATATIONS, Verified 06/05/21 18:43 PANIC ATTACKS, nauseas,panic attack, heart palpitations omeprazole [From PRILOSEC] Allergy Intermediate ITCHY Verified 06/05/21 18:43 THROAT pravastatin [PRAVASTATIN] Allergy Intermediate UNKNOWN Verified 06/05/21 18:43 rosuvastatin [From CRESTOR] Allergy Intermediate UNKNOWN Verified 06/05/21 18:43 terbinafine [TERBINAFINE] Allergy Intermediate UNKNOWN Verified 06/05/21 18:43 Vicodin Allergy Intermediate palpitations, Verified 06/05/21 18:43 itch atorvastatin [From LIPITOR] Allergy Unknown UNKNOWN Verified 06/05/21 18:43 clarithromycin [From BIAXIN] AdvReac Intermediate ABD PAIN, Verified 06/05/21 18:43 DIARRHEA gabapentin [GABAPENTIN] AdvReac Intermediate UNKNOWN, Verified 06/05/21 18:43 nausea, dizziness levofloxacin [LEVOFLOXACIN] AdvReac Intermediate PALPITATION Verified 06/05/21 18:43 S tylenol with codeine Allergy Unknown fast heart Uncoded 05/11/21 02:04 rate Review of Systems Review of Systems: Constitutional: No Fever, + Chills ENT/Mouth: No Ear Pain, + Nasal Congestion, No Sinus Pain, No Hoarseness, + sore throat, + Rhinorrhea, No Swallowing Difficulty Cardiovascular: No Chest Pain, No SOB Respiratory: + Cough, No Sputum, No Wheezing Gastrointestinal: No Nausea, No Vomiting, No Diarrhea, No Abdominal pain Genitourinary: No Dysuria, No Urinary Frequency, No Hematuria, No Flank Pain Musculoskeletal: No joint pain, + Myalgias, No Joint Swelling Skin: No Skin Lesions, No rash Neuro: No Weakness Yes all other systems are reviewed and are negative [facility] Past Medical History Attestation statement: The following information was validated with the patient. Medical History Arthritis Back pain Benign essential hypertension Candidiasis of mouth and esophagus Carpal tunnel syndrome Chest pain Diabetes mellitus Dizziness Fibromyalgia Hypertension Insomnia Mixed hyperlipidemia Morbid obesity with BMI of 40.0-44.9, adult Obesity (BMI 30-39.9) Polyarthralgia Scalp cyst Type 2 diabetes mellitus without complication Surgical History H/O hemorrhoidectomy History of appendectomy History of dermoid cyst excision History of esophagogastroduodenoscopy (EGD) History of excision of lamina of cervical vertebra for decompression of spinal cord Hx of colonoscopy Family History Family History Father NIDDY (non-insulin dependent diabetes mellitus in young) Cardiovascular disease Obesity Cancer of unknown origin Mother CAD (coronary artery disease) NIDDY (non-insulin dependent diabetes mellitus in young) Brother Schizophrenia Degenerative disc disease H/O lymph node cancer Sister Breast cancer Paternal Grandmother Ovarian cancer, Onset Age: 45 Daughter Fibromyalgia Hypertension Cancer of unknown origin Other Mental health problem Social History Social History Household Members: None Housing: Apartment Alcohol intake: never Patient Tobacco Use Status: Never used Tobacco Second Hand Smoke Exposure: No Advance Directives: No Advance Directives Information Provided: Yes Patient : No service: No Current occupational status: disabled Sexual orientation: Straight/Heterosexual Gender identity: Female Physical Exam Vital Signs: Vital Signs: Last Vital Signs Temp 98.6 F 06/05/21 21:53 Pulse 64 06/05/21 21:53 Resp 16 06/05/21 21:53 BP 175/79 H 06/05/21 21:53 Pulse Ox 100 06/05/21 18:43 BMI result Body Mass Index 39.3 Const: General: cooperative, healthy appearing and no acute distress Orientation/consciousness: patient oriented x3 Limitations: no limitations HENMT: Head: Yes normal to inspection Ears: hearing grossly normal bilaterally, external ears normal and TM's normal bilaterally General nose exam: Normal external nose present Face and sinus: Yes normal facial exam Mouth: Normal oral and palatal mucosa present Throat: Yes tonsils normal, Yes uvula midline, No peritonsillar mass, Yes posterior oropharynx abnormal (Mild posterior or pharyngeal erythema), No uvula laterally displaced and No uvular edema Eyes: General: appearance normal, both eyes and all related structures EOM: EOMs intact bilaterally Neck: Neck: Yes normal visual inspection, Yes no lymphadenopathy, Yes no meningeal signs, Yes trachea midline and Yes supple Resp: Effort & Inspection: normal respiratory effort Auscultation: clear to auscultation bilaterally, no crackles, no rales, no rhonchi and no wheezes Cardio: Rate: regular rate Heart sounds: S1 normal heart sound present and S2 normal heart sound present Skin: Rashes: no rashes Wounds: no wounds Neuro: General: patient oriented x3 and no meningeal signs Gait exam (Neuro): Normal gait present Extrem: General: Yes normal to inspection Course Course Course Narrative: COVID-19 negative. Rapid strep negative. Results discussed with patient including worrisome signs and symptoms and strict return precautions. MDM - URI/Sore Throat MDM Narrative Medical decision making narrative: 51-year-old female with a past medical history of arthritis, back pain, diabetes, fibromyalgia, hypertension, hyperlipidemia, obesity, presenting to the ED complaining of dry cough, myalgia s/body aches, sore throat, mild headache x3 days. On exam vital signs stable, NAD/nontoxic-appearing, physical exam as above. Concern for viral syndrome/COVID-19 vs pharyngitis. Low concern for ACS/PE/pneumonia Plan: COVID-19 testing, rapid strep Differential Diagnosis Differential diagnosis: Likely upper respiratory infection, sinusitis, viral infection, bronchitis, influenza and pharyngitis Medical Records Attestation: I reviewed the patient's medical records. Lab Data Attestation: I reviewed the patient's lab results. Labs: Lab Results 06/05/21 06/05/21 Range/Units 21:28 22:30 COVID-19 ([place]) Negative (Negative) COVID-19 Clin Com See Note S. pyogenes GrpA KRISTEN Negative (Negative) Discharge Plan Discharge Clinical Impression: Acute viral syndrome Patient Disposition: Home, Self-Care Instructions: Viral Syndrome (ED) Additional Instructions: It was negative for COVID-19 and strep throat Flonase as a nasal decongestant Take Tylenol Motrin as needed Rest Stay hydrated. If symptoms persist or worsen please return to the ED. Follow-up with your doctor Fue negativo para COVID-19 y faringitis estreptoc?cica Flonase blas descongestionante nasal [place] Tylenol Motrin seg?n sea necesario Descansar Mantente hidratado. Si los s?ntomas persisten o empeoran, regrese al servicio de urgencias. Seguimiento con dimas m?dico Prescriptions: New fluticasone propionate [Flonase Allergy Relief] 50 mcg/actuation spray,suspension 2 spray intranasal DAILY Qty: 16 RF: 0 No Action aspirin 81 mg tablet,delayed release (DR/EC) 81 mg PO DAILY Qty: 90 RF: 1 zolpidem 10 mg tablet 10 mg PO BEDTIME PRN (Reason: insomnia) 90 Days Qty: 90 RF: 0 (DME) blood pressure monitor Kit See Rx Instructions .Route Qty: 1 RF: 0 (DME) blood sugar diagnostic Strip See Rx Instructions ea Not Applicable DAILY Qty: 100 RF: 0 (DME) lancets 28 gauge misc See Rx Instructions ea topical DIRECTED Qty: 100 RF: 0 (DME) blood-glucose meter [FreeStyle Lite Meter] Kit See Rx Instructions .Route Qty: 1 RF: 0 hydrochlorothiazide 25 mg tablet 25 mg PO DAILY Qty: 90 RF: 1 acetaminophen [Tylenol Extra Strength] 500 mg tablet 500 mg PO Q6H PRN (Reason: pain or fever) Qty: 20 RF: 0 pitavastatin calcium 2 mg tablet 2 mg PO QPM 30 Days Qty: 30 RF: 3 tizanidine 4 mg tablet 4 mg PO TID PRN (Reason: muscle pain; back pain) 10 Days Qty: 30 RF: 2 betamethasone, augmented 0.05 % lotion topical BID PRNRF: 0 calcipotriene 0.005 % solution topical RF: 0 triamcinolone acetonide 0.1 % cream 1 appl topical BID-TID RF: 0 alclometasone 0.05 % cream topical RF: 0 sumatriptan succinate 50 mg tablet 50 mg PO Q2-4H PRN (Reason: migraine headache) 30 Days Qty: 10 RF: 1 meclizine 25 mg tablet 25 mg PO DAILY PRN (Reason: dizziness) 15 Days Qty: 15 RF: 2 cholecalciferol (vitamin D3) 50 mcg (2,000 unit) capsule 50 mcg PO DAILY 90 Days Qty: 90 RF: 3 albuterol sulfate 90 mcg/actuation HFA aerosol inhaler 2 puff PO QID PRNRF: 0 triamcinolone acetonide 0.1 % lotion topical BID RF: 0 hydrocortisone 2.5 % cream topical BID RF: 0 metronidazole 0.75 % cream topical BID RF: 0 hydroxyzine HCl 50 mg tablet 50 mg PO BEDTIME Qty: 30 RF: 1 nystatin-triamcinolone 100,000-0.1 unit/g-% cream 1 appl topical DAILY Qty: 15 RF: 0 carvedilol 3.125 mg tablet 3.125 mg PO BID 90 Days Qty: 180 RF: 1 bismuth subsalicylate [Bismuth] 262 mg tablet,chewable 2 tab PO QID 30 Days Qty: 240 RF: 6 metoclopramide HCl [Reglan] 5 mg tablet 5 mg PO .bidac and qhs 30 Days Qty: 90 RF: 6 pantoprazole [Protonix] 40 mg tablet,delayed release (DR/EC) 40 mg PO BID 30 Days Qty: 60 RF: 6 Referrals: Victoriano Smith MD [Primary Care Provider] - 3 days Print Language: Moroccan
== END 2021-06-05 23:50 | disposition home or self-care (01) ==
PROVIDERS: Physician Assistant; Emergency Provider Emergency Medicine; PCP Internal Medicine
DX: B34.9 Viral infection, unspecified (principal); M79.10 Myalgia, unspecified site; M54.50 Low back pain, unspecified; R05.9 Cough, unspecified; Z20.822 Contact with and (suspected) exposure to COVID-19; Z79.899 Other long term (current) drug therapy
CPT/HCPCS: 36415; 87635; 87651; 99283; 99284

== ENCOUNTER 2021-06-10 19:20 | Outpatient (REF) | payer OTHER, SELFPAY | END 2021-06-10 19:21 | disposition home or self-care (01) | LOC: HO.LNP 19:20 | PROVIDERS: Visit Provider Physician Assistant Medical | DX: Z20.822 Contact with and (suspected) exposure to COVID-19 (principal); J01.90 Acute sinusitis, unspecified | CPT/HCPCS: U0003; U0005 ==

== ENCOUNTER 2021-06-24 14:07 | Outpatient (REF) | payer OTHER, SELFPAY ==
[2021-06-25 09:11] LABS: BV Int Neg Control Negative (Negative); BV Int Pos Control Positive (Positive)
== END 2021-06-24 14:08 | disposition home or self-care (01) ==
LOC: HO.LAB 14:07
PROVIDERS: PCP Internal Medicine; Visit Provider Advanced Practice Midwife
DX: R10.2 Pelvic and perineal pain (principal); N89.8 Other specified noninflammatory disorders of vagina; N89.6 Tight hymenal ring; R23.2 Flushing; N61.1 Abscess of the breast and nipple; Z71.2 Person consulting for explanation of examination or test findings
CPT/HCPCS: 87480; 87510; 87660; 99212

== ENCOUNTER 2021-07-06 14:01 | Emergency (ER) | payer OTHER, SELFPAY | END 2021-07-06 16:34 | disposition left against medical advice (07) | PROVIDERS: Emergency Provider Emergency Medicine; PCP Internal Medicine | DX: R10.9 Unspecified abdominal pain (principal) ==

== ENCOUNTER 2021-07-10 09:08 | Outpatient (REF) | payer OTHER, SELFPAY ==
--- NOTE | ~2021-07-10 | US_ITS ---
EXAMINATION: US ABDOMEN COMPLETE CLINICAL INFORMATION: Right upper quadrant pain. COMPARISON: January 17, [address] scan of October 30, 2020 TECHNIQUE: Real-time imaging of the abdominal viscera. FINDINGS: PANCREAS: Normal. No abnormal mass or peripancreatic inflammatory change. ABDOMINAL AORTA: The proximal, mid, and distal segments are normal in caliber. INFERIOR VENA CAVA: Visualized portions are normal. LIVER: There is diffusely increased echogenicity present consistent with fatty infiltration. There is question of mild hepatomegaly No focal hepatic lesion. There is no intrahepatic biliary duct dilatation seen. GALLBLADDER: Normal. The gallbladder is physiologically distended without evidence of stones, sludge, polyps, wall thickening or pericholecystic fluid. COMMON BILE DUCT: Normal in caliber measuring 0.3 cm in diameter. RIGHT KIDNEY: Normal. No hydronephrosis. No renal calculi or focal parenchymal lesions. The kidney measures 11.2 cm in maximum dimension. LEFT KIDNEY: Normal. No hydronephrosis. No renal calculi or focal parenchymal lesions. The kidney measures 11.8 cm in maximum dimension. SPLEEN: Normal. The spleen measures 8.8 cm in maximum dimension. FREE FLUID: None. US/US abdomen complete IMPRESSION: Diffuse fatty infiltration of the liver. No evidence of acute cholecystitis.
[2021-07-10 10:30] LABS: Hematocrit 39.9 % (37.0-47.0); Hemoglobin 12.5 g/dl (12.0-16.0); Mean Corpuscular HGB Conc 31.3 g/dl (31.0-35.0); Mean Corpuscular Hemoglobin 27.4 pg (27.0-33.0); Mean Corpuscular Volume 87.3 fL (80.0-98.0); Platelet Count 267 X10*3/uL (160-400); Red Blood Count 4.57 X10*6/uL (4.20-5.50); Red Cell Distribution Width 13.5 % (11.0-16.0)
[2021-07-10 10:54] LABS: Alanine Aminotransferase 22 U/L (0-31); Albumin Level 3.9 g/dL (3.5-5.0); Alkaline Phosphatase 101 U/L (39-117); Anion Gap 11 (12-20); Aspartate Amino Transferase 23 U/L (5-31); Bilirubin Direct 0.2 mg/dL (0.0-0.5); Bilirubin Total 0.7 mg/dL (0.0-1.0); Blood Urea Nitrogen 13 mg/dL (9-16); Calcium 9.2 mg/dL (8.4-10.2); Carbon Dioxide 29 mmol/L (22-29); Chloride 105 mmol/L (96-108); Estimated Glomerular Filt Rate > 60; Glucose Random 127 mg/dL (60-115); Lipase 39 U/L (8-78); Potassium 4.1 mmol/L (3.3-5.1); Sodium 141 mmol/L (135-145); Total Protein 6.9 g/dL (6.5-8.0)
== END 2021-07-10 09:09 | disposition home or self-care (01) ==
LOC: HO.US 09:08
PROVIDERS: PCP Internal Medicine; Visit Provider Physician Assistant
DX: R10.11 Right upper quadrant pain (principal)
CPT/HCPCS: 36415; 76700; 80048; 80076; 83690; 85027

== ENCOUNTER → 2021-07-11 10:01 | Outpatient (BNVA) | payer OTHER, SELFPAY | PROVIDERS: PCP Internal Medicine; Visit Provider Obstetrics & Gynecology | DX: Z01.419 Encounter for gynecological examination (general) (routine) without abnormal findings (principal) | CPT/HCPCS: 99212 ==

== ENCOUNTER 2021-07-26 14:12 | Outpatient (REF) | payer OTHER, SELFPAY ==
[2021-07-26 15:49] LABS: Alanine Aminotransferase 23 U/L (0-31); Alkaline Phosphatase 109 U/L (39-117); Aspartate Amino Transferase 25 U/L (5-31); Bilirubin Direct < 0.2 mg/dL (0.0-0.5); Bilirubin Total 0.4 mg/dL (0.0-1.0); Total Protein 7.1 g/dL (6.5-8.0)
[2021-07-29 13:36] LABS: Alpha Fetoprotein 1.3 ng/mL
== END 2021-07-26 14:13 | disposition home or self-care (01) ==
LOC: HO.LAB 14:12
PROVIDERS: PCP Internal Medicine; Referring Provider Internal Medicine; Visit Provider Nurse Practitioner
DX: K75.81 Nonalcoholic steatohepatitis (NASH) (principal); K21.9 Gastro-esophageal reflux disease without esophagitis; E66.01 Morbid (severe) obesity due to excess calories; K58.0 Irritable bowel syndrome with diarrhea; A04.8 Other specified bacterial intestinal infections; K31.84 Gastroparesis; Z68.41 Body mass index [BMI] 40.0-44.9, adult
CPT/HCPCS: 36415; 80076; 82105; 99212

== ENCOUNTER 2021-08-14 10:32 | Outpatient (REF) | payer OTHER, SELFPAY ==
[2021-08-14 10:47] LABS: MANUAL DIFF FLAG NO
[2021-08-14 11:15] LABS: Basophils Absolute Auto 0.1 X10*3/uL (0.0-0.2); Basophils Percent Auto 0.6 % (0-2); Eosinophils Absolute Auto 0.2 X10*3/uL (0.0-0.4); Eosinophils Percent Auto 2.1 % (0-4); Hematocrit 39.6 % (37.0-47.0); Hemoglobin 12.5 g/dl (12.0-16.0); Imm Gran Abs Auto 0.04 X10*3/uL (0.00-0.03); Imm Gran Pct Auto 0.5 % (0.0-0.4); Lymphocytes Absolute Auto 2.3 X10*3/uL (1.2-4.9); Lymphocytes Percent Auto 27.5 % (20-40); Mean Corpuscular HGB Conc 31.6 g/dl (31.0-35.0); Mean Corpuscular Hemoglobin 27.4 pg (27.0-33.0); Mean Corpuscular Volume 86.8 fL (80.0-98.0); Mean Platelet Volume 10.6 fL (9.4-12.3); Monocytes Absolute Auto 0.6 X10*3/uL (0.1-1.2); Monocytes Percent Auto 7.6 % (2-11); Neutrophils Absolute Auto 5.1 x10*3/uL (2.0-8.3); Neutrophils Percent Auto 61.7 % (45-73); Platelet Count 270 X10*3/uL (160-400); Red Blood Count 4.56 X10*6/uL (4.20-5.50); Red Cell Distribution Width 13.6 % (11.0-16.0); White Blood Count 8.3 X10*3/uL (4.8-10.8)
[2021-08-14 11:19] LABS: Appearance Urine CLEAR; Color Urine YELLOW; Glucose Urine UA NEG (NEG); Leukocyte Esterase Urine NEG (NEG); Nitrite Urine NEG (NEG); PH 5.5 (5.0-8.0); Specific Gravity - Urine >= 1.030 (1.005-1.025); Urine Blood NEG (NEG); Urine Ketones NEG (NEG); Urine Protein NEG (NEG-TRACE)
[2021-08-14 11:27] LABS: Estimated Average Glucose 160 mg/dL; Hemoglobin A1c % 7.2 %
[2021-08-14 11:58] LABS: Alanine Aminotransferase 25 U/L (0-31); Alkaline Phosphatase 104 U/L (39-117); Anion Gap 10 (12-20); Aspartate Amino Transferase 26 U/L (5-31); Bilirubin Total 0.9 mg/dL (0.0-1.0); Blood Urea Nitrogen 13 mg/dL (9-16); Calcium 9.3 mg/dL (8.4-10.2); Carbon Dioxide 31 mmol/L (22-29); Chloride 105 mmol/L (96-108); Cholesterol 217 mg/dL; Estimated Glomerular Filt Rate > 60; Glucose Fasting 143 mg/dL (60-99); HDL Cholesterol 32 mg/dL; LDL Cholesterol Calculated 149 mg/dl; Potassium 4.2 mmol/L (3.3-5.1); Sodium 142 mmol/L (135-145); Total Protein 6.9 g/dL (6.5-8.0); Triglycerides 181 mg/dL
[2021-08-14 11:59] LABS: TSH reflex Free T4 2.05 uIU/mL (0.32-4.0); Vitamin D 25-OH Total 25.2 ng/mL (>30)
[2021-08-14 12:15] LABS: Creatinine Urine 244.03 mg/dL
== END 2021-08-14 10:33 | disposition home or self-care (01) ==
LOC: HO.LAB 10:32
PROVIDERS: PCP Internal Medicine; Visit Provider Internal Medicine
DX: E55.9 Vitamin D deficiency, unspecified (principal); I10 Essential (primary) hypertension; E11.9 Type 2 diabetes mellitus without complications; E78.00 Pure hypercholesterolemia, unspecified
CPT/HCPCS: 36415; 80053; 80061; 81003; 82043; 82306; 83036; 84443; 85025

== ENCOUNTER → 2021-08-22 12:49 | Outpatient (BNVA) | payer OTHER, SELFPAY | PROVIDERS: PCP Internal Medicine; Visit Provider Nurse Practitioner Family | DX: R40.0 Somnolence (principal); R06.83 Snoring; I10 Essential (primary) hypertension; E78.2 Mixed hyperlipidemia; E66.01 Morbid (severe) obesity due to excess calories; Z68.41 Body mass index [BMI] 40.0-44.9, adult; Z88.8 Allergy status to other drugs, medicaments and biological substances; Z79.899 Other long term (current) drug therapy | CPT/HCPCS: 99202 ==

== ENCOUNTER → 2021-10-02 14:30 | Outpatient (REF) | payer OTHER, SELFPAY | LOC: HO.SL 14:30 | PROVIDERS: PCP Internal Medicine; Visit Provider Nurse Practitioner Family | DX: R06.83 Snoring (principal); R40.0 Somnolence | CPT/HCPCS: 95806 ==

== ENCOUNTER → 2021-10-03 13:38 | Outpatient (BNVA) | payer OTHER, SELFPAY | PROVIDERS: PCP Internal Medicine; Referring Provider Internal Medicine; Visit Provider Internal Medicine Cardiovascular Disease | DX: R07.9 Chest pain, unspecified (principal); E11.9 Type 2 diabetes mellitus without complications; I10 Essential (primary) hypertension; E78.5 Hyperlipidemia, unspecified; E66.01 Morbid (severe) obesity due to excess calories; Z68.41 Body mass index [BMI] 40.0-44.9, adult | CPT/HCPCS: 93005; 99212 ==

== ENCOUNTER 2021-10-05 13:50 | Emergency (ER) | payer OTHER, SELFPAY ==
--- NOTE | 2021-10-05 | ECG_ITS ---
Test Reason : CHESTPAIN Blood Pressure : / mmHG Vent. Rate : 065 BPM Atrial Rate : 065 BPM P-R Int : 164 ms QRS Dur : 088 ms QT Int : 426 ms P-R-T Axes : 007 -08 033 degrees QTc Int : 443 ms Normal sinus rhythm Minimal voltage criteria for LVH, may be normal variant ( R in aVL ) Nonspecific T wave abnormality Abnormal ECG When compared with ECG of 25-APR-2021 16:09, Nonspecific T wave abnormality now evident in Anterior leads Referred By: Generic ED Physician Electronically Signed By:ISAAC TOBAR MD
--- NOTE | ~2021-10-05 | XR_ITS ---
EXAMINATION: XR CHEST CLINICAL INFORMATION: Chest pain. COMPARISON: Chest radiograph dated from 04/25/2021. TECHNIQUE: 2 views of the chest were obtained. FINDINGS: Cervical instrumentation hardware. EKG wires overlying the chest. Stable prominence of the cardiomediastinal silhouette. No focal airspace opacities, pleural effusions or pneumothorax. No acute osseous abnormalities. Thoracic spondylosis. XR/XR chest 2V IMPRESSION: No acute cardiopulmonary findings.
--- NOTE | ~2021-10-05 | CT_ITS ---
EXAMINATION: CT ABDOMEN AND PELVIS WITH CONTRAST CLINICAL INFORMATION: Epigastric pain COMPARISON: 10.30.2020 TECHNIQUE: Multidetector volumetric images were obtained from the superior aspect of the liver through the pubic symphysis following administration 85 mL of Omnipaque 350 intravenous contrast. Sagittal and coronal reformatted images were obtained on the technologist's workstation. Oral contrast: No This CT examination was performed using dose optimization techniques as appropriate, variously including the following: *Automated exposure control *Adjustment of mA and/or kV according to patient size (this includes techniques or standardized protocols for targeted exams where dose is matched to indication/reason for exam; i.e. extremities or head) *Use of iterative reconstruction technique DLP: 785 mGy-cm FINDINGS: LUNG BASES: The visualized lung bases are unremarkable. LIVER, GALLBLADDER, AND BILIARY TREE: The liver is normal in size, shape, and attenuation. No focal hepatic lesion or biliary ductal dilatation is present. Gallbladder unremarkable. PANCREAS: Unremarkable. SPLEEN: Unremarkable. ADRENAL GLANDS: Unremarkable. KIDNEYS AND URETERS: The kidneys are normal in size, shape, and attenuation. No hydronephrosis, hydroureter, or calculi seen. There is a stable 1.0 cm cyst in the right kidney. No perinephric stranding. BLADDER: Unremarkable. GASTROINTESTINAL TRACT: The small and large bowel are unremarkable. The appendix is unremarkable. ABDOMINAL WALL: No significant hernia is appreciated. LYMPH NODES: Normal. VASCULAR: Unremarkable. PELVIC VISCERA: Unremarkable. OSSEOUS STRUCTURES: Unremarkable. CT/CT abdomen pelvis w con IMPRESSION: No acute findings within the abdomen or pelvis.
--- NOTE | ~2021-10-05 | US_ITS ---
EXAMINATION: US ABDOMEN LIMITED CLINICAL INFORMATION: Right upper quadrant pain. COMPARISON: CT dated 10/30/2020 TECHNIQUE: Real-time imaging of the right upper quadrant abdominal viscera. FINDINGS: PANCREAS: Normal. LIVER: Normal. The liver is normal in size. The liver contour is normal. There is diffuse increased liver parenchymal echogenicity, consistent with hepatic steatosis. No focal hepatic lesion. There is no intrahepatic biliary duct dilatation seen. GALLBLADDER: Normal. The gallbladder is physiologically distended without evidence of stones, sludge, polyps, wall thickening or pericholecystic fluid. COMMON BILE DUCT: Normal in caliber measuring 0.2 cm in diameter. RIGHT KIDNEY: Normal. No hydronephrosis. No renal calculi or focal parenchymal lesions. The kidney measures 12.3 cm in maximum dimension. FREE FLUID: None. US/US abdomen limited IMPRESSION: No acute findings. Hepatic steatosis.
[2021-10-05 13:59] VITALS: BP 176/82; PULSE 69; RESP 20; TEMP 36.4; O2SAT 96; BMI 40.5
[2021-10-05 15:13] LABS: MANUAL DIFF FLAG NO
[2021-10-05 15:14] LABS: Basophils Absolute Auto 0.1 X10*3/uL (0.0-0.2); Basophils Percent Auto 0.6 % (0-2); Eosinophils Absolute Auto 0.2 X10*3/uL (0.0-0.4); Eosinophils Percent Auto 1.6 % (0-4); Hematocrit 40.6 % (37.0-47.0); Hemoglobin 12.9 g/dl (12.0-16.0); Imm Gran Abs Auto 0.08 X10*3/uL (0.00-0.03); Imm Gran Pct Auto 0.8 % (0.0-0.4); Lymphocytes Absolute Auto 2.8 X10*3/uL (1.2-4.9); Lymphocytes Percent Auto 26.5 % (20-40); Mean Corpuscular HGB Conc 31.8 g/dl (31.0-35.0); Mean Corpuscular Hemoglobin 26.9 pg (27.0-33.0); Mean Corpuscular Volume 84.6 fL (80.0-98.0); Mean Platelet Volume 9.9 fL (9.4-12.3); Monocytes Absolute Auto 0.6 X10*3/uL (0.1-1.2); Monocytes Percent Auto 5.6 % (2-11); Neutrophils Absolute Auto 6.7 x10*3/uL (2.0-8.3); Neutrophils Percent Auto 64.9 % (45-73); Platelet Count 289 X10*3/uL (160-400); Red Cell Distribution Width 13.2 % (11.0-16.0); White Blood Count 10.4 X10*3/uL (4.8-10.8)
[2021-10-05 15:27] LABS: Anion Gap 10 (12-20); Blood Urea Nitrogen 12 mg/dL (9-16); Calcium 9.7 mg/dL (8.4-10.2); Carbon Dioxide 30 mmol/L (22-29); Chloride 104 mmol/L (96-108); Creatinine Clr Calc Pharmacy 86.1; Estimated Glomerular Filt Rate > 60; Glucose Random 198 mg/dL (60-115); Potassium 3.8 mmol/L (3.3-5.1); Sodium 140 mmol/L (135-145)
[2021-10-05 15:35] LABS: Troponin-I High Sensitivity < 3.5 ng/L (<3.5-17.0)
[2021-10-05 16:14] VITALS: BP 173/86; PULSE 71; RESP 16; TEMP 36.7; O2SAT 98
--- NOTE | 2021-10-05 16:32 | ED.CHESTPAIN ---
HPI - Chest Pain General Chief Complaint: Chest Pain <ANDREW Monaco Last Filed: 10/05/21 18:01> Stated Complaint: Upper abd pain <ANDREW Monaco Last Filed: 10/05/21 18:01> Time Seen by Provider: 10/05/21 16:28 <ANDREW Monaco Last Filed: 10/05/21 18:01> Source: patient <ANDREW Monaco Last Filed: 10/05/21 18:01> Mode of arrival: ambulatory <ANDREW Monaco Last Filed: 10/05/21 18:01> Limitations: language barrier <ANDREW Monaco Last Filed: 10/05/21 18:01> History of Present Illness HPI narrative: 51-year-old female with a past medical history of diabetes, non alcoholic fatty liver, GERD, treatment resistant H pylori, IBS, hypertension, hyperlipidemia, fibromyalgia, and morbid obesity presents for epigastric pain and chest pain. She is had this same pain for week, it is worsening today. No trauma. The pain is so severe she cannot sleep, it is worse with breathing. States the pain is in her upper abdomen and her chest, feels like pressure, and radiates up into the right side of her neck. 6/10 pain. She has felt short of breath at times. She was nauseous earlier today she is not nauseous now. No fevers. No vomiting, no diarrhea. Last bowel movement was normal. Last menstrual period was June 06, she may be in menopause. Patient is vaccinated for COVID. Reports having a dry cough for 1 year. States that her chest pain is worse when she eats. Patient had an ultrasound in June 2021, fatty liver was imaged, no cholecystitis, no CBD dilation, no gallbladder stone. Patient saw GI 07/26/2021 for GERD. Patient sees Dr. Perez for hypertension. No history of heart surgery or myocardial infarction. No valvular disease. <ANDREW Monaco Last Filed: 10/05/21 18:01> Related Data Home Medications: Home Medications Medication Instructions Recorded Confirmed albuterol sulfate 90 mcg/actuation 2 puff PO QID PRN 03/21/20 10/03/21 aerosol inhaler hydrocortisone 2.5 % topical cream applic TOPICAL BID 03/21/20 10/03/21 alclometasone 0.05 % topical cream appl TOPICAL 02/04/21 10/03/21 betamethasone, augmented 0.05 % TOPICAL BID PRN 02/04/21 10/03/21 lotion calcipotriene 0.005 % scalp TOPICAL 02/04/21 10/03/21 solution triamcinolone acetonide 0.1 % 1 appl TOPICAL BID-TID 02/04/21 10/03/21 topical cream Previous Rx's Medication Instructions Recorded hydroxyzine HCl 50 mg tablet 50 mg PO BEDTIME #30 tab 05/07/20 nystatin-triamcinolone 100,000 1 appl TOPICAL DAILY #15 g 05/09/20 unit/g-0.1 % topical cream acetaminophen 500 mg tablet 500 mg PO Q6H PRN #20 tab 10/30/20 (Tylenol Extra Strength) tizanidine 4 mg tablet 4 mg PO TID PRN 10 Days #30 tab 11/02/20 pantoprazole 40 mg tablet,delayed 40 mg PO BID 30 Days #60 tab 01/22/21 release (Protonix) sumatriptan succinate 50 mg tablet 50 mg PO Q2-4H PRN 30 Days #10 tab 02/04/21 blood pressure monitor #1 ea 05/06/21 blood-glucose meter (FreeStyle #1 ea 05/06/21 Lite Meter) lancets 28 gauge #100 ea 05/06/21 cholecalciferol (vitamin D3) 50 50 mcg PO DAILY 90 Days #90 cap 05/08/21 mcg (2,000 unit) capsule hydrochlorothiazide 25 mg tablet 25 mg PO DAILY #90 tab 05/25/21 carvedilol 3.125 mg tablet 3.125 mg PO BID 90 Days #180 tab 07/26/21 meclizine 25 mg tablet 25 mg PO DAILY PRN 15 Days #15 tab 07/27/21 blood sugar diagnostic (FreeStyle #100 strip 07/29/21 Lite Strips) zolpidem 10 mg tablet 10 mg PO BEDTIME PRN 90 Days #90 08/21/21 tab albuterol sulfate 2.5 mg (3 mL) INHALATION QID PRN 08/23/21 30 Days #120 ml aspirin 81 mg tablet,delayed 81 mg PO DAILY #90 tab 08/23/21 release fluticasone propionate 110 1 puff INHALATION BID 30 Days #12 g 08/23/21 mcg/actuation HFA aerosol inhaler (Flovent HFA) loratadine 10 mg tablet (Claritin) 10 mg PO DAILY PRN 90 Days #90 tab 08/23/21 simvastatin 20 mg tablet 20 mg PO BEDTIME 30 Days #30 tab 08/23/21 famotidine 40 mg tablet (Pepcid) 40 mg PO BEDTIME #30 tab 08/27/21 dicyclomine 10 mg capsule 10 mg PO BID #10 cap 10/05/21 <ANDREW Monaco - Last Filed: 10/05/21 18:01> Allergies/Adverse Reactions: Allergies Allergy/AdvReac Type Severity Reaction Status Date / Time amoxicillin [Prevpac] Allergy Intermediate itchy Verified 10/03/21 13:59 throat ibuprofen [From Motrin] Allergy Intermediate UPSET Verified 10/03/21 13:59 STOMACH, abdominal pain lansoprazole [Prevpac] Allergy Intermediate itchy Verified 10/03/21 13:59 throat morphine [MORPHINE] Allergy Intermediate PALPATATIONS, Verified 10/03/21 13:59 PANIC ATTACKS, nauseas,panic attack, heart palpitations omeprazole [From PRILOSEC] Allergy Intermediate ITCHY Verified 10/03/21 13:59 THROAT pravastatin [PRAVASTATIN] Allergy Intermediate UNKNOWN Verified 10/03/21 13:59 rosuvastatin [From CRESTOR] Allergy Intermediate UNKNOWN Verified 10/03/21 13:59 terbinafine [TERBINAFINE] Allergy Intermediate UNKNOWN Verified 10/03/21 13:59 Vicodin Allergy Intermediate palpitations, Verified 10/03/21 13:59 itch atorvastatin [From LIPITOR] Allergy Unknown UNKNOWN Verified 10/03/21 13:59 clarithromycin [From BIAXIN] AdvReac Intermediate ABD PAIN, Verified 10/03/21 13:59 DIARRHEA gabapentin [GABAPENTIN] AdvReac Intermediate UNKNOWN, Verified 10/03/21 13:59 nausea, dizziness levofloxacin [LEVOFLOXACIN] AdvReac Intermediate PALPITATION Verified 10/03/21 13:59 S tylenol with codeine Allergy Unknown fast heart Uncoded 10/03/21 13:59 rate <ANDREW Monaco - Last Filed: 10/05/21 18:01> Review of Systems Constitutional: Constitutional: Denies body ache(s), Denies chills, Denies fatigue, Denies fever(s), Denies headache(s), Denies malaise and Denies weakness <ANDREW Monaco Last Filed: 10/05/21 18:01> Eyes: Eyes: Denies diplopia <Sheila Gaitan [facility] Last Filed: 10/05/21 18:01> ENT: Denies dizziness, Denies otalgia, Denies headache(s) and Denies sore throat <Sheila Gaitan [facility] Last Filed: 10/05/21 18:01> Cardiovascular: Cardiovascular: Reports chest pain, Denies syncope, Denies leg edema, Denies lightheadedness, Denies Loss of Consciousness, Denies palpitations and Reports dyspnea <ANDREW Monaco Last Filed: 10/05/21 18:01> Respiratory: Respiratory: Denies chest congestion, Reports cough and Reports dyspnea <ANDREW Monaco Last Filed: 10/05/21 18:01> Gastrointestinal: Gastrointestinal: Reports abdominal pain, Denies melena, Denies hematochezia, Denies coffee ground emesis, Denies constipation, Denies fecal incontinence, Denies diarrhea, Reports nausea and Denies vomiting <Sheila Gaitan [facility] Last Filed: 10/05/21 18:01> Genitourinary: Genitourinary: Reports abnormal menses, Denies abnormal vaginal bleeding, Denies dysuria, Denies flank pain, Denies urinary incontinence, Denies urinary urgency and Denies vaginal discharge <ANDREW Monaco Last Filed: 10/05/21 18:01> Musculoskeletal: Musculoskeletal: Reports no additional musculoskeletal complaints <ANDREW Monaco Last Filed: 10/05/21 18:01> Integumentary/Breasts: Skin/Breast: Denies rash <ANDREW Monaco Last Filed: 10/05/21 18:01> Neurologic: Denies confusion, Denies dizziness, Denies syncope, Denies headache(s) and Denies weakness <ANDREW Monaco Last Filed: 10/05/21 18:01> Psychiatric: Psychiatric: Denies anxiety, Denies confusion and Denies depression <ANDREW Monaco Last Filed: 10/05/21 18:01> Endocrine: Endocrine: Denies fatigue and Denies palpitations <ANDREW Monaco - Last Filed: 10/05/21 18:01> [facility] Past Medical History Medical History: Medical History Allergic rhinitis Arthritis Benign essential hypertension Breast pain during Candidiasis of mouth and esophagus Carpal tunnel syndrome Diabetes mellitus Fibromyalgia Insomnia Lumbar degenerative disc disease Mixed hyperlipidemia Morbid obesity with BMI of 40.0-44.9, adult Polyarthralgia Thoracic spondylosis <ANDREW Monaco - Last Filed: 10/05/21 18:01> Surgical History: Surgical History H/O hemorrhoidectomy History of appendectomy History of dermoid cyst excision History of esophagogastroduodenoscopy (EGD) History of excision of lamina of cervical vertebra for decompression of spinal cord Hx of colonoscopy <ANDREW Monaco - Last Filed: 10/05/21 18:01> Family History Family History: Family History Father NIDDY (non-insulin dependent diabetes mellitus in young) Cardiovascular disease Obesity Cancer of unknown origin Mother CAD (coronary artery disease) NIDDY (non-insulin dependent diabetes mellitus in young) Brother Schizophrenia Degenerative disc disease H/O lymph node cancer Sister Breast cancer Paternal Grandmother Ovarian cancer, Onset Age: 45 Daughter Fibromyalgia Hypertension Cancer of unknown origin Other Mental health problem <ANDREW Monaco - Last Filed: 10/05/21 18:01> Social History Social History: Social History Household Members: None Housing: Apartment Alcohol intake: never Patient Tobacco Use Status: Never used Tobacco e-Cigarette/Vaping Use: Never Used Second Hand Smoke Exposure: No Advance Directives: No Advance Directives Information Provided: No service: No Current occupational status: disabled Sexual orientation: Straight/Heterosexual Gender identity: Female <ANDREW Monaco - Last Filed: 10/05/21 18:01> Physical Exam Vital Signs: Vital Signs: Last Vital Signs Temp 98.1 F 10/05/21 16:14 Pulse 71 10/05/21 16:14 Resp 16 10/05/21 16:14 BP 173/86 H 10/05/21 16:14 Pulse Ox 98 10/05/21 16:14 BMI result Body Mass Index 40.5 <ANDREW Monaco Last Filed: 10/05/21 18:01> Vital Signs: Last Vital Signs Temp 98.1 F 10/05/21 16:14 Pulse 71 10/05/21 16:14 Resp 16 10/05/21 16:14 BP 173/86 H 10/05/21 16:14 Pulse Ox 98 10/05/21 16:14 BMI result Body Mass Index 40.5 <ANDREW Matos - Last Filed: 10/05/21 18:28> Const: General: no acute distress, alert and awake; No confusion <ANDREW Monaco - Last Filed: 10/05/21 18:01> Nutritional Appearance: obese morbidly obese <ANDREW Monaco - Last Filed: 10/05/21 18:01> Orientation/consciousness: patient oriented x3 and No confusion <ANDREW Monaco - Last Filed: 10/05/21 18:01> Limitations: language barrier <ANDREW Monaco - Last Filed: 10/05/21 18:01> HEENT: Head: Yes normal to inspection, Yes normocephalic and Yes atraumatic <ANDREW Monaco - Last Filed: 10/05/21 18:01> Ears: hearing grossly normal bilaterally, external ears normal, TM's normal bilaterally and EAC's normal <ANDREW Monaco - Last Filed: 10/05/21 18:01> General nose exam: Normal external nose present <ANDREW Monaco Last Filed: 10/05/21 18:01> Face and sinus: Yes normal facial exam and Yes sinuses nontender <ANDREW Monaco - Last Filed: 10/05/21 18:01> Mouth: Normal oral and palatal mucosa present <ANDREW Monaco Last Filed: 10/05/21 18:01> Throat: Yes posterior oropharynx normal <ANDREW Monaco - Last Filed: 10/05/21 18:01> Eyes: Conjunctivae: conjunctivae normal <ANDREW Monaco - Last Filed: 10/05/21 18:01> Pupils: Equal, round and reactive pupils present <Sheila Gaitan [facility] Last Filed: 10/05/21 18:01> EOM: EOMs intact bilaterally <Sheila Gaitan [facility] Last Filed: 10/05/21 18:01> Neck: Neck: Yes full ROM, Yes no lymphadenopathy and Yes supple <Sheila Gaitan [facility] Last Filed: 10/05/21 18:01> Chest: Other: Tender to palpate over bilateral anterior chest wall <Sheila Gaitan [facility] Last Filed: 10/05/21 18:01> Resp: Effort & Inspection: normal respiratory effort and able to speak in complete sentences <Sheila Gaitan [facility] Last Filed: 10/05/21 18:01> Auscultation: clear to auscultation bilaterally, no crackles, no rales, no rhonchi and no wheezes <Sheila Gaitan [facility] Last Filed: 10/05/21 18:01> Cardio: Rate: regular rate <Sheila Gaitan [facility] Last Filed: 10/05/21 18:01> Rhythm: regular rhythm <Sheila Gaitan [facility] Last Filed: 10/05/21 18:01> Heart sounds: S1 normal heart sound present and S2 normal heart sound present <Sheila Gaitan [facility] Last Filed: 10/05/21 18:01> GI: Inspection: Yes Abdominal panniculus present, Yes obesity and Yes striae <Sheila Gaitan [facility] Last Filed: 10/05/21 18:01> Palpation (GI): Soft to palpation, Tenderness to palpation present (GI) in the epigastrum, Guarding due to palpation present (GI) (Epigastric) and not rigid <Sheila Gaitan [facility] Last Filed: 10/05/21 18:01> Percussion: Yes normal to percussion <Sheila Gaitan [facility] Last Filed: 10/05/21 18:01> Auscultation: normal bowel sounds <Sheila Gaitan [facility] Last Filed: 10/05/21 18:01> : General: Yes no CVA tenderness <Sheila Gaitan [place] - Last Filed: 10/05/21 18:01> Back/Spine/Pelvis: Back: no CVA tenderness <ANDREW Monaco Last Filed: 10/05/21 18:01> Skin: Other: acanthosis nigricans noted over patient's forehead, back of neck, and abdominal skin folds. <ANDREW Monaco Last Filed: 10/05/21 18:01> Neuro: General: patient oriented x3 and No confusion <ANDREW Monaco Last Filed: 10/05/21 18:01> Cranial nerves: Yes Equal, round and reactive pupils present <ANDREW Monaco Last Filed: 10/05/21 18:01> Extrem: General: Yes normal to inspection and Yes full ROM <ANDREW Monaco Last Filed: 10/05/21 18:01> Psych: Appearance: grossly normal <ANDREW Monaco Last Filed: 10/05/21 18:01> Affect: normal affect <ANDREW Monaco Last Filed: 10/05/21 18:01> Attitude: cooperative <ANDREW Monaco Last Filed: 10/05/21 18:01> Thought process: Normal thought process present <ANDREW Monaco Last Filed: 10/05/21 18:01> Course Course Course Narrative: Morbidly obese 51-year-old female presents for epigastric and chest pain that has been ongoing for a week and is now worsening. Patient has endorsed similar epigastric pain chronically. Negative RUQ US June 2021. Patient saw Dr Perez 10/03/21, who had recommended 1 year ago the patient get a nuclear stress test, patient did not follow-up. Patient has had recurrent chest pain with increasing intensity. His note states patient needs coronary artery evaluation, he ordered a coronary CTA to be done within the next 2 weeks. Patient has significant risk factors for coronary artery disease, including diabetes, hypertension, hyperlipidemia, morbid obesity. Patient also tells me she has follow-up EGD and colonoscopy scheduled at [facility] in the next week On exam, anxious and morbidly obese female, tender to palpate over entire chest wall, tender and guarding over epigastrium and right upper quadrant. Patient is hypertensive with her systolic in the 170s, afebrile. EKG shows normal sinus, and has some nonspecific T-wave changes from EKG of April 2021. Patient's 1st troponin negative, patient has been having the same symptoms for a week. Labs remarkable only for blood glucose of 198. Lipase is 50. Will get urine, chest x-ray, ultrasound, abdominal CT. Gave fluids, GI cocktail of Maalox and viscous lidocaine Reseda texted Dr Perez, to make him aware patient is here. Signed patient out to ANDREW Matos, pending imaging results. <ANDREW Monaco - Last Filed: 10/05/21 18:01> Morbidly obese 51-year-old female presents for epigastric and chest pain that has been ongoing for a week and is now worsening. Patient has endorsed similar epigastric pain chronically. Negative RUQ US June 2021. Patient saw Dr Perez 10/03/21, who had recommended 1 year ago the patient get a nuclear stress test, patient did not follow-up. Patient has had recurrent chest pain with increasing intensity. His note states patient needs coronary artery evaluation, he ordered a coronary CTA to be done within the next 2 weeks. Patient has significant risk factors for coronary artery disease, including diabetes, hypertension, hyperlipidemia, morbid obesity. Patient also tells me she has follow-up EGD and colonoscopy scheduled at [facility] in the next week On exam, anxious and morbidly obese female, tender to palpate over entire chest wall, tender and guarding over epigastrium and right upper quadrant. Patient is hypertensive with her systolic in the 170s, afebrile. EKG shows normal sinus, and has some nonspecific T-wave changes from EKG of April 2021. Patient's 1st troponin negative, patient has been having the same symptoms for a week. Labs remarkable only for blood glucose of 198. Lipase is 50. Will get urine, chest x-ray, ultrasound, abdominal CT. Gave fluids, GI cocktail of Maalox and viscous lidocaine Reseda texted Dr Perez, to make him aware patient is here. Signed patient out to ANDREW Matos, pending imaging results. [address] US [address] were unremarkable for any acute process. While the patient does have 3+ on UA, pateint will wait for treatment until culture results as patient is currently asymptomatic. Patient to follow up with Cardiology and GI next week as scheduled. <ANDREW Matos - Last Filed: 10/05/21 18:28> Reevaluation(s) Reevaluation #1: Chest x-ray is unremarkable, patient is not Urine shows 3+ LE, pt denies dysuria or frequency <ANDREW Monaco - Last Filed: 10/05/21 18:01> MDM - Chest Pain Lab Data Attestation: I reviewed the patient's lab results. <ANDREW Monaco - Last Filed: 10/05/21 18:01> Result diagrams: : 10/05/21 15:07 10/05/21 15:07 <ANDREW Monaco - Last Filed: 10/05/21 18:01> Labs: Lab Results 10/05/21 10/05/21 10/05/21 Range/Units 15:07 15:07 15:07 WBC 10.4 (4.8-10.8) X10*3/uL RBC 4.80 (4.20-5.50) X10*6/uL Hgb 12.9 (12.0-16.0) g/dl Hct 40.6 (37.0-47.0) % MCV 84.6 (80.0-98.0) fL MCH 26.9 L (27.0-33.0) pg MCHC 31.8 (31.0-35.0) g/dl RDW 13.2 (11.0-16.0) % Plt Count 289 (160-400) X10*3/uL MPV 9.9 (9.4-12.3) fL Immature Gran % (Auto) 0.8 H (0.0-0.4) % Neut % (Auto) 64.9 (45-73) % Lymph % (Auto) 26.5 (20-40) % [place] % (Auto) 5.6 (2-11) % Eos % (Auto) 1.6 (0-4) % Baso % (Auto) 0.6 (0-2) % Lymph # (Auto) 2.8 (1.2-4.9) X10*3/uL [place] # (Auto) 0.6 (0.1-1.2) X10*3/uL Eos # (Auto) 0.2 (0.0-0.4) X10*3/uL Baso # (Auto) 0.1 (0.0-0.2) X10*3/uL Abs Immat Gran (auto) 0.08 H (0.00-0.03) X10*3/uL Absolute Neuts (auto) 6.7 (2.0-8.3) x10*3/uL Absolute Nucleated RBC 0.000 (0.0-0.012) X10*3/uL Nucleated RBC % (auto) 0.0 (0.0-0.2) /100WBC Sodium 140 (135-145) mmol/L Potassium 3.8 (3.3-5.1) mmol/L Chloride 104 (96-108) mmol/L Carbon Dioxide 30 H (22-29) mmol/L Anion Gap 10 L (12-20) BUN 12 (9-16) mg/dL Creatinine 0.89 (0.5-1.4) mg/dL Estim Creat Clear Calc 86.1 Estimated GFR > 60 Random Glucose 198 H (60-115) mg/dL Calcium 9.7 (8.4-10.2) mg/dL Troponin I High Sens < 3.5 (<3.5-17.0) ng/L Lipase (8-78) U/L Urine Color Urine Appearance Urine pH (5.0-8.0) Ur Specific [place] (1.005-1.025) Urine Protein (NEG-TRACE) MG/DL Urine Glucose (UA) (NEG) MG/DL Urine Ketones (NEG) MG/DL Urine Blood (NEG) Urine Nitrite (NEG) Ur Leukocyte Esterase (NEG) Urine RBC (0) /HPF Urine WBC (0-4) /HPF Ur Squamous Epith Cells /LPF Urine Bacteria /LPF Urine Mucus /LPF Urine Test (NEGATIVE) 10/05/21 10/05/21 10/05/21 Range/Units 17:28 17:28 17:35 WBC (4.8-10.8) X10*3/uL RBC (4.20-5.50) X10*6/uL Hgb (12.0-16.0) g/dl Hct (37.0-47.0) % MCV (80.0-98.0) fL MCH (27.0-33.0) pg MCHC (31.0-35.0) g/dl RDW (11.0-16.0) % Plt Count (160-400) X10*3/uL MPV (9.4-12.3) fL Immature Gran % (Auto) (0.0-0.4) % Neut % (Auto) (45-73) % Lymph % (Auto) (20-40) % [place] % (Auto) (2-11) % Eos % (Auto) (0-4) % Baso % (Auto) (0-2) % Lymph # (Auto) (1.2-4.9) X10*3/uL [place] # (Auto) (0.1-1.2) X10*3/uL Eos # (Auto) (0.0-0.4) X10*3/uL Baso # (Auto) (0.0-0.2) X10*3/uL Abs Immat Gran (auto) (0.00-0.03) X10*3/uL Absolute Neuts (auto) (2.0-8.3) x10*3/uL Absolute Nucleated RBC (0.0-0.012) X10*3/uL Nucleated RBC % (auto) (0.0-0.2) /100WBC Sodium (135-145) mmol/L Potassium (3.3-5.1) mmol/L Chloride (96-108) mmol/L Carbon Dioxide (22-29) mmol/L Anion Gap (12-20) BUN (9-16) mg/dL Creatinine (0.5-1.4) mg/dL Estim Creat Clear Calc Estimated GFR Random Glucose (60-115) mg/dL Calcium (8.4-10.2) mg/dL Troponin I High Sens (<3.5-17.0) ng/L Lipase 50 (8-78) U/L Urine Color YELLOW Urine Appearance HAZY Urine pH 5.5 (5.0-8.0) Ur Specific [place] 1.025 (1.005-1.025) Urine Protein NEG (NEG-TRACE) MG/DL Urine Glucose (UA) NEG (NEG) MG/DL Urine Ketones NEG (NEG) MG/DL Urine Blood NEG (NEG) Urine Nitrite NEG (NEG) Ur Leukocyte Esterase 3+ H (NEG) Urine RBC 1-4 (0) /HPF Urine WBC 10-14 H (0-4) /HPF Ur Squamous Epith Cells 2+ /LPF Urine Bacteria 2+ /LPF Urine Mucus 1+ /LPF Urine Test NEGATIVE (NEGATIVE) <ANDREW Monaco - Last Filed: 10/05/21 18:01> Lab Results 10/05/21 10/05/21 10/05/21 Range/Units 15:07 15:07 15:07 WBC 10.4 (4.8-10.8) X10*3/uL RBC 4.80 (4.20-5.50) X10*6/uL Hgb 12.9 (12.0-16.0) g/dl Hct 40.6 (37.0-47.0) % MCV 84.6 (80.0-98.0) fL MCH 26.9 L (27.0-33.0) pg MCHC 31.8 (31.0-35.0) g/dl RDW 13.2 (11.0-16.0) % Plt Count 289 (160-400) X10*3/uL MPV 9.9 (9.4-12.3) fL Immature Gran % (Auto) 0.8 H (0.0-0.4) % Neut % (Auto) 64.9 (45-73) % Lymph % (Auto) 26.5 (20-40) % [place] % (Auto) 5.6 (2-11) % Eos % (Auto) 1.6 (0-4) % Baso % (Auto) 0.6 (0-2) % Lymph # (Auto) 2.8 (1.2-4.9) X10*3/uL [place] # (Auto) 0.6 (0.1-1.2) X10*3/uL Eos # (Auto) 0.2 (0.0-0.4) X10*3/uL Baso # (Auto) 0.1 (0.0-0.2) X10*3/uL Abs Immat Gran (auto) 0.08 H (0.00-0.03) X10*3/uL Absolute Neuts (auto) 6.7 (2.0-8.3) x10*3/uL Absolute Nucleated RBC 0.000 (0.0-0.012) X10*3/uL Nucleated RBC % (auto) 0.0 (0.0-0.2) /100WBC Sodium 140 (135-145) mmol/L Potassium 3.8 (3.3-5.1) mmol/L Chloride 104 (96-108) mmol/L Carbon Dioxide 30 H (22-29) mmol/L Anion Gap 10 L (12-20) BUN 12 (9-16) mg/dL Creatinine 0.89 (0.5-1.4) mg/dL Estim Creat Clear Calc 86.1 Estimated GFR > 60 Random Glucose 198 H (60-115) mg/dL Calcium 9.7 (8.4-10.2) mg/dL Troponin I High Sens < 3.5 (<3.5-17.0) ng/L Lipase (8-78) U/L Urine Color Urine Appearance Urine pH (5.0-8.0) Ur Specific [place] (1.005-1.025) Urine Protein (NEG-TRACE) MG/DL Urine Glucose (UA) (NEG) MG/DL Urine Ketones (NEG) MG/DL Urine Blood (NEG) Urine Nitrite (NEG) Ur Leukocyte Esterase (NEG) Urine RBC (0) /HPF Urine WBC (0-4) /HPF Ur Squamous Epith Cells /LPF Urine Bacteria /LPF Urine Mucus /LPF Urine Test (NEGATIVE) 10/05/21 10/05/21 10/05/21 Range/Units 17:28 17:28 17:35 WBC (4.8-10.8) X10*3/uL RBC (4.20-5.50) X10*6/uL Hgb (12.0-16.0) g/dl Hct (37.0-47.0) % MCV (80.0-98.0) fL MCH (27.0-33.0) pg MCHC (31.0-35.0) g/dl RDW (11.0-16.0) % Plt Count (160-400) X10*3/uL MPV (9.4-12.3) fL Immature Gran % (Auto) (0.0-0.4) % Neut % (Auto) (45-73) % Lymph % (Auto) (20-40) % [place] % (Auto) (2-11) % Eos % (Auto) (0-4) % Baso % (Auto) (0-2) % Lymph # (Auto) (1.2-4.9) X10*3/uL [place] # (Auto) (0.1-1.2) X10*3/uL Eos # (Auto) (0.0-0.4) X10*3/uL Baso # (Auto) (0.0-0.2) X10*3/uL Abs Immat Gran (auto) (0.00-0.03) X10*3/uL Absolute Neuts (auto) (2.0-8.3) x10*3/uL Absolute Nucleated RBC (0.0-0.012) X10*3/uL Nucleated RBC % (auto) (0.0-0.2) /100WBC Sodium (135-145) mmol/L Potassium (3.3-5.1) mmol/L Chloride (96-108) mmol/L Carbon Dioxide (22-29) mmol/L Anion Gap (12-20) BUN (9-16) mg/dL Creatinine (0.5-1.4) mg/dL Estim Creat Clear Calc Estimated GFR Random Glucose (60-115) mg/dL Calcium (8.4-10.2) mg/dL Troponin I High Sens (<3.5-17.0) ng/L Lipase 50 (8-78) U/L Urine Color YELLOW Urine Appearance HAZY Urine pH 5.5 (5.0-8.0) Ur Specific [place] 1.025 (1.005-1.025) Urine Protein NEG (NEG-TRACE) MG/DL Urine Glucose (UA) NEG (NEG) MG/DL Urine Ketones NEG (NEG) MG/DL Urine Blood NEG (NEG) Urine Nitrite NEG (NEG) Ur Leukocyte Esterase 3+ H (NEG) Urine RBC 1-4 (0) /HPF Urine WBC 10-14 H (0-4) /HPF Ur Squamous Epith Cells 2+ /LPF Urine Bacteria 2+ /LPF Urine Mucus 1+ /LPF Urine Test NEGATIVE (NEGATIVE) <ANDREW Matos - Last Filed: 10/05/21 18:28> ECG Data ECG #1: Interpretation: EKG shows normal sinus at a rate of 65, NE interval 164, QRS 88, QTC 443, normal axis, no ST elevations or depressions Nonspecific T-wave abnormalities in anterior leads is new finding since EKG of 04/25/2021 <ANDREW [place] - Last Filed: 10/05/21 18:01> Discharge Plan Discharge Clinical Impression: Chest pain, Epigastric abdominal pain <ANDREW [place] Last Filed: 10/05/21 18:01> Patient Disposition: Home, Self-Care <ANDREW Monaco Last Filed: 10/05/21 18:01> Instructions: Epigastric Pain (ED) <ANDREW Monaco Last Filed: 10/05/21 18:01> Additional Instructions: Follow up with your primary care provider. Return to the emergency department immediately if your symptoms worsen or if you develop any dizziness, shortness of breath, difficulty breathing, chest pain, blurry vision, loss of vision, nausea, vomiting, abdominal pain, fever, chills, back pain, or any other complaints. <ANDREW Monaco Last Filed: 10/05/21 18:01> Prescriptions: New dicyclomine 10 mg capsule 10 mg PO BID Qty: 10 0RF No Action (DME) blood pressure monitor Kit See Rx Instructions .Route Qty: 1 0RF Rx Instructions: As directed (DME) lancets 28 gauge misc See Rx Instructions ea topical DIRECTED Qty: 100 0RF Rx Instructions: Test once daily (DME) blood-glucose meter [FreeStyle Lite Meter] Kit See Rx Instructions .Route Qty: 1 0RF Rx Instructions: As directed hydrochlorothiazide 25 mg tablet 25 mg PO DAILY Qty: 90 1RF carvedilol 3.125 mg tablet 3.125 mg PO BID 90 Days Qty: 180 1RF Rx Instructions: must administer with a meal/food meclizine 25 mg tablet 25 mg PO DAILY PRN (Reason: dizziness) 15 Days Qty: 15 2RF (DME) FreeStyle Lite Strips Strip See Rx Instructions .ROUTE .COMPLEX Qty: 100 0RF Dose Instruction: USE TODOS [place] [facility] Rx Instructions: USE TODOS [place] zolpidem 10 mg tablet 10 mg PO BEDTIME PRN (Reason: insomnia) 90 Days Qty: 90 0RF aspirin 81 mg tablet,delayed release (DR/EC) 81 mg PO DAILY Qty: 90 1RF famotidine [Pepcid] 40 mg tablet 40 mg PO BEDTIME Qty: 30 6RF acetaminophen [Tylenol Extra Strength] 500 mg tablet 500 mg PO Q6H PRN (Reason: pain or fever) Qty: 20 0RF tizanidine 4 mg tablet 4 mg PO TID PRN (Reason: muscle pain; back pain) 10 Days Qty: 30 2RF betamethasone, augmented 0.05 % lotion topical BID PRN0RF calcipotriene 0.005 % solution topical 0RF triamcinolone acetonide 0.1 % cream 1 appl topical BID-TID 0RF alclometasone 0.05 % cream topical 0RF sumatriptan succinate 50 mg tablet 50 mg PO Q2-4H PRN (Reason: migraine headache) 30 Days Qty: 10 1RF Rx Instructions: do not exceed 4 doses per 24 hrs cholecalciferol (vitamin D3) 50 mcg (2,000 unit) capsule 50 mcg PO DAILY 90 Days Qty: 90 3RF loratadine [Claritin] 10 mg tablet 10 mg PO DAILY PRN (Reason: allergy symptoms) 90 Days Qty: 90 3RF Flovent HFA 110 mcg/actuation HFA aerosol inhaler 1 puff inhalation BID 30 Days Qty: 12 3RF albuterol sulfate 2.5 mg /3 mL (0.083 %) solution for nebulization 2.5 mg inhalation QID PRN (Reason: shortness of breath or wheezing) 30 Days Qty: 120 3RF simvastatin 20 mg tablet 20 mg PO BEDTIME 30 Days Qty: 30 3RF albuterol sulfate 90 mcg/actuation HFA aerosol inhaler 2 puff PO QID PRN0RF hydrocortisone 2.5 % cream topical BID 0RF hydroxyzine HCl 50 mg tablet 50 mg PO BEDTIME Qty: 30 1RF nystatin-triamcinolone 100,000-0.1 unit/g-% cream 1 appl topical DAILY Qty: 15 0RF pantoprazole [Protonix] 40 mg tablet,delayed release (DR/EC) 40 mg PO BID 30 Days Qty: 60 6RF <ANDREW Monaco - Last Filed: 10/05/21 18:01> Referrals: Victoriano Smith MD [Primary Care Provider] - (Follow up with your PCP. ) <ANDREW Monaco - Last Filed: 10/05/21 18:01>
[2021-10-05 17:42] LABS: Appearance Urine HAZY; Color Urine YELLOW; Glucose Urine UA NEG (NEG); Leukocyte Esterase Urine 3+ (NEG); Nitrite Urine NEG (NEG); PH 5.5 (5.0-8.0); Specific Gravity - Urine 1.025 (1.005-1.025); UACC Culture Trigger YES; Urine Blood NEG (NEG); Urine Ketones NEG (NEG); Urine Protein NEG (NEG-TRACE)
[2021-10-05 17:45] LABS: UPreg QC Valid YES; Urine Pregnancy NEGATIVE (NEGATIVE)
[2021-10-05 17:54] LABS: Lipase 50 U/L (8-78)
[2021-10-05 18:00] LABS: Bacteria Urine 2+ /LPF; Mucus Urine 1+ /LPF; Squamous Epithelial Cell Urine 2+ /LPF
[2021-10-05] MEDS: iohexoL 350 MG/ML 100 ML INFUS..BTL IV (18:05)
[2021-10-05] MEDS: Lidocaine HCl Viscous 2 % 15 ML SOLUTION MUCOUS MEM (18:25)
[2021-10-05] MEDS: Magnesium Hydrox/Alum Hydrox 30 ML ORAL.SUSP PO (18:25)
== END 2021-10-05 18:38 | disposition home or self-care (01) ==
PROVIDERS: Physician Assistant; Emergency Provider Emergency Medicine Emergency Medical Services; PCP Internal Medicine
DX: R10.13 Epigastric pain (principal); R07.89 Other chest pain; E66.01 Morbid (severe) obesity due to excess calories; M54.2 Cervicalgia; Z79.899 Other long term (current) drug therapy
CPT/HCPCS: 36415; 71046; 74177; 76705; 80048; 81001; 81025; 83690; 84484; 85025; 87086; 87147; 93005; 96360; 99284; 99285; Q9967

== ENCOUNTER 2021-10-07 12:42 | Outpatient (REF) | payer OTHER, SELFPAY ==
[2021-10-07 13:36] LABS: MANUAL DIFF FLAG NO
[2021-10-07 14:04] LABS: Basophils Percent Auto 0.4 % (0-2); Eosinophils Absolute Auto 0.1 X10*3/uL (0.0-0.4); Eosinophils Percent Auto 1.3 % (0-4); Hematocrit 40.6 % (37.0-47.0); Hemoglobin 12.9 g/dl (12.0-16.0); Imm Gran Abs Auto 0.06 X10*3/uL (0.00-0.03); Imm Gran Pct Auto 0.7 % (0.0-0.4); Lymphocytes Absolute Auto 2.6 X10*3/uL (1.2-4.9); Lymphocytes Percent Auto 27.8 % (20-40); Mean Corpuscular HGB Conc 31.8 g/dl (31.0-35.0); Mean Corpuscular Volume 84.9 fL (80.0-98.0); Monocytes Absolute Auto 0.6 X10*3/uL (0.1-1.2); Neutrophils Absolute Auto 5.8 x10*3/uL (2.0-8.3); Neutrophils Percent Auto 62.8 % (45-73); Platelet Count 309 X10*3/uL (160-400); Red Blood Count 4.78 X10*6/uL (4.20-5.50); Red Cell Distribution Width 13.3 % (11.0-16.0); White Blood Count 9.2 X10*3/uL (4.8-10.8)
== END 2021-10-07 12:43 | disposition home or self-care (01) ==
LOC: HO.LAB 12:42
PROVIDERS: PCP Internal Medicine; Visit Provider Internal Medicine Pulmonary Disease
DX: J45.40 Moderate persistent asthma, uncomplicated (principal); I10 Essential (primary) hypertension; E78.2 Mixed hyperlipidemia; E66.01 Morbid (severe) obesity due to excess calories; M79.7 Fibromyalgia; M25.50 Pain in unspecified joint; M51.36 Other intervertebral disc degeneration, lumbar region; M47.814 Spondylosis without myelopathy or radiculopathy, thoracic region; Z68.41 Body mass index [BMI] 40.0-44.9, adult; Z88.8 Allergy status to other drugs, medicaments and biological substances; Z79.899 Other long term (current) drug therapy
CPT/HCPCS: 36415; 82785; 85025; 86003; 99202

== ENCOUNTER → 2021-10-24 14:06 | Outpatient (BNVA) | payer OTHER, SELFPAY | PROVIDERS: PCP Internal Medicine; Visit Provider Nurse Practitioner Family | DX: G47.00 Insomnia, unspecified (principal); R06.83 Snoring; R40.0 Somnolence; E66.01 Morbid (severe) obesity due to excess calories; Z68.41 Body mass index [BMI] 40.0-44.9, adult | CPT/HCPCS: 99212 ==

== ENCOUNTER 2021-11-19 12:49 | Outpatient (REF) | payer OTHER, SELFPAY ==
--- NOTE | 2021-11-19 15:45 | PFT_ITS ---
INDICATION: Dyspnea. SPIROMETRY: FEV1 to FVC of 82% with an FEV1 of 2.13 L, which is 74% predicted. FVC of 2.6 L, which is 73% predicted. No significant response to bronchodilators noted. Maximum voluntary ventilation 81% predicted. LUNG VOLUMES: Total lung capacity 72% predicted with a residual volume of 62% predicted and an expiratory reserve volume of 11% predicted. DIFFUSION CAPACITY: DLCO 75% predicted it does correct to normal when correcting for the alveolar volume of 103% predicted. COMPARISONS: None. INTERPRETATION: No obstructive ventilatory defect. No significant response to bronchodilators noted. Normal maximum voluntary ventilation. The patient does have restrictive ventilatory defect consistent with mild restrictive lung disease to some degree related to her elevated BMI although interstitial lung conditions or neuromuscular conditions cannot be ruled out. The patient has a mild diffusion impairment. Clinical correlation warranted. MD NAT Emmanuel/KONSTANTIN / [phone]
== END 2021-11-19 12:50 | disposition home or self-care (01) ==
LOC: HO.RESP 12:49
PROVIDERS: PCP Internal Medicine; Visit Provider Internal Medicine Pulmonary Disease
DX: J45.40 Moderate persistent asthma, uncomplicated (principal); Z91.09 Other allergy status, other than to drugs and biological substances
CPT/HCPCS: 94060; 94727; 94729; 99212

== ENCOUNTER 2021-11-29 13:53 | Outpatient (REF) | payer OTHER, SELFPAY ==
[2021-11-29 14:08] LABS: MANUAL DIFF FLAG NO
[2021-11-29 14:35] LABS: Basophils Absolute Auto 0.1 X10*3/uL (0.0-0.2); Basophils Percent Auto 0.5 % (0-2); Eosinophils Absolute Auto 0.1 X10*3/uL (0.0-0.4); Eosinophils Percent Auto 1.4 % (0-4); Hematocrit 39.3 % (37.0-47.0); Hemoglobin 12.3 g/dl (12.0-16.0); Imm Gran Abs Auto 0.05 X10*3/uL (0.00-0.03); Imm Gran Pct Auto 0.5 % (0.0-0.4); Lymphocytes Absolute Auto 2.5 X10*3/uL (1.2-4.9); Lymphocytes Percent Auto 26.5 % (20-40); Mean Corpuscular HGB Conc 31.3 g/dl (31.0-35.0); Mean Corpuscular Hemoglobin 26.8 pg (27.0-33.0); Mean Corpuscular Volume 85.6 fL (80.0-98.0); Mean Platelet Volume 10.2 fL (9.4-12.3); Monocytes Absolute Auto 0.7 X10*3/uL (0.1-1.2); Monocytes Percent Auto 7.5 % (2-11); Neutrophils Percent Auto 63.6 % (45-73); Platelet Count 294 X10*3/uL (160-400); Red Blood Count 4.59 X10*6/uL (4.20-5.50); Red Cell Distribution Width 13.7 % (11.0-16.0); White Blood Count 9.4 X10*3/uL (4.8-10.8)
[2021-11-29 14:43] LABS: Estimated Average Glucose 148 mg/dL; Hemoglobin A1c % 6.8 %
[2021-11-29 14:58] LABS: Alanine Aminotransferase 27 U/L (0-31); Albumin Level 4.1 g/dL (3.5-5.0); Alkaline Phosphatase 112 U/L (39-117); Anion Gap 11 (12-20); Aspartate Amino Transferase 29 U/L (5-31); Blood Urea Nitrogen 13 mg/dL (9-16); Calcium 9.1 mg/dL (8.4-10.2); Carbon Dioxide 27 mmol/L (22-29); Chloride 106 mmol/L (96-108); Cholesterol 170 mg/dL; Estimated Glomerular Filt Rate > 60; Glucose Fasting 112 mg/dL (60-99); HDL Cholesterol 31 mg/dL; LDL Cholesterol Calculated 99 mg/dl; Potassium 4.3 mmol/L (3.3-5.1); Sodium 140 mmol/L (135-145); Triglycerides 202 mg/dL
[2021-11-29 15:21] LABS: TSH reflex Free T4 2.18 uIU/mL (0.32-4.0); Vitamin D 25-OH Total 28.8 ng/mL (>30)
[2021-11-29 15:51] LABS: Appearance Urine CLEAR; Color Urine YELLOW; Glucose Urine UA NEG (NEG); Leukocyte Esterase Urine TRACE (NEG); Nitrite Urine NEG (NEG); PH 5.5 (5.0-8.0); Specific Gravity - Urine >= 1.030 (1.005-1.025); Urine Blood NEG (NEG); Urine Ketones NEG (NEG); Urine Protein NEG (NEG-TRACE)
[2021-11-29 16:07] LABS: Bacteria Urine TRACE /LPF; RBC Urine 0 /HPF (0); Squamous Epithelial Cell Urine 2+ /LPF
[2021-11-29 16:15] LABS: Microalbum/Creatinine Ratio Ur 4.6 ug/mg cr
== END 2021-11-29 13:54 | disposition home or self-care (01) ==
LOC: HO.LAB 13:53
PROVIDERS: PCP Internal Medicine; Visit Provider Internal Medicine
DX: I10 Essential (primary) hypertension (principal); E78.00 Pure hypercholesterolemia, unspecified; E11.9 Type 2 diabetes mellitus without complications; E55.9 Vitamin D deficiency, unspecified
CPT/HCPCS: 36415; 80053; 80061; 81001; 82043; 82306; 83036; 84443; 85025

== ENCOUNTER → 2021-12-31 13:36 | Outpatient (BNVA) | payer OTHER, SELFPAY | PROVIDERS: PCP Internal Medicine; Referring Provider Internal Medicine; Visit Provider Nurse Practitioner Family | DX: R07.9 Chest pain, unspecified (principal); M79.604 Pain in right leg; M79.605 Pain in left leg; I10 Essential (primary) hypertension; E78.2 Mixed hyperlipidemia; E11.9 Type 2 diabetes mellitus without complications | CPT/HCPCS: 99212 ==

== ENCOUNTER 2022-01-04 14:00 | Emergency (ER) | payer OTHER, SELFPAY ==
[2022-01-04 14:35] VITALS: BP 202/97; PULSE 78; RESP 18; TEMP 35.8; O2SAT 98; BMI 40.4
--- NOTE | 2022-01-04 14:46 | PC.NURSE ---
call placed to pharmacy re: potential interaction between zofran and pts allergy to tylenol with codein. per pharmacy no known interaction, ok to give.
[2022-01-04 15:19] LABS: MANUAL DIFF FLAG NO
[2022-01-04 15:22] LABS: Basophils Percent Auto 0.4 % (0-2); Eosinophils Absolute Auto 0.1 X10*3/uL (0.0-0.4); Eosinophils Percent Auto 1.1 % (0-4); Hematocrit 40.1 % (37.0-47.0); Hemoglobin 12.8 g/dl (12.0-16.0); Imm Gran Abs Auto 0.06 X10*3/uL (0.00-0.03); Imm Gran Pct Auto 0.6 % (0.0-0.4); Lymphocytes Absolute Auto 2.2 X10*3/uL (1.2-4.9); Mean Corpuscular HGB Conc 31.9 g/dl (31.0-35.0); Mean Corpuscular Hemoglobin 27.2 pg (27.0-33.0); Mean Corpuscular Volume 85.1 fL (80.0-98.0); Mean Platelet Volume 9.8 fL (9.4-12.3); Monocytes Absolute Auto 0.7 X10*3/uL (0.1-1.2); Monocytes Percent Auto 6.5 % (2-11); Neutrophils Absolute Auto 6.9 x10*3/uL (2.0-8.3); Neutrophils Percent Auto 69.4 % (45-73); Platelet Count 288 X10*3/uL (160-400); Red Blood Count 4.71 X10*6/uL (4.20-5.50); Red Cell Distribution Width 13.4 % (11.0-16.0)
[2022-01-04 15:42] LABS: Anion Gap 9 (12-20); Blood Urea Nitrogen 16 mg/dL (9-16); Calcium 9.5 mg/dL (8.4-10.2); Carbon Dioxide 28 mmol/L (22-29); Chloride 105 mmol/L (96-108); Creatinine Clr Calc Pharmacy 99.3; Estimated Glomerular Filt Rate > 60; Glucose Random 178 mg/dL (60-115); Potassium 4.1 mmol/L (3.3-5.1); Sodium 138 mmol/L (135-145)
== END 2022-01-04 22:35 | disposition left against medical advice (07) ==
LOC: HO.ED 23:20
PROVIDERS: Emergency Provider Emergency Medicine; PCP Internal Medicine
DX: R42 Dizziness and giddiness (principal); I10 Essential (primary) hypertension; R11.0 Nausea; E11.9 Type 2 diabetes mellitus without complications; E78.2 Mixed hyperlipidemia; E66.9 Obesity, unspecified; Z68.41 Body mass index [BMI] 40.0-44.9, adult
CPT/HCPCS: 36415; 80048; 85025; 99281; 99283

== ENCOUNTER → 2022-01-14 13:01 | Outpatient (BNVA) | payer OTHER, SELFPAY | PROVIDERS: PCP Internal Medicine; Visit Provider Orthopaedic Surgery | DX: G56.01 Carpal tunnel syndrome, right upper limb (principal) | CPT/HCPCS: 99202 ==

== ENCOUNTER → 2022-01-23 13:39 | Outpatient (BNVA) | payer OTHER, SELFPAY | PROVIDERS: PCP Internal Medicine; Referring Provider Internal Medicine; Visit Provider Nurse Practitioner | DX: R42 Dizziness and giddiness (principal); K75.81 Nonalcoholic steatohepatitis (NASH); R10.11 Right upper quadrant pain; K58.0 Irritable bowel syndrome with diarrhea; K21.9 Gastro-esophageal reflux disease without esophagitis; A04.8 Other specified bacterial intestinal infections | CPT/HCPCS: 99212 ==

== ENCOUNTER → 2022-01-30 23:01 | Outpatient (REF) | payer OTHER, SELFPAY | LOC: HO.SL 23:01 | PROVIDERS: Visit Provider Nurse Practitioner Family | DX: R06.83 Snoring (principal); R40.0 Somnolence | CPT/HCPCS: 95810 ==

== ENCOUNTER 2022-02-04 15:00 | Outpatient (REF) | payer OTHER, SELFPAY ==
--- NOTE | ~2022-02-04 | XR_ITS ---
EXAMINATION: XR ANKLE, LEFT CLINICAL INFORMATION: Ankle sprain COMPARISON: None TECHNIQUE: AP, lateral, and mortise views of the left ankle. FINDINGS: No fracture or dislocation. No ankle joint effusion. Ankle mortise is congruent and intact. Ankle and subtalar joint spaces are maintained. Mild soft tissue swelling along the anterolateral ankle. Prominent posterior calcaneal enthesophyte/spur. No thickening of the Achilles tendon. XR/XR ankle LT min 3V IMPRESSION: No acute fracture or dislocation.
== END 2022-02-04 15:01 | disposition home or self-care (01) ==
LOC: HO.HMGCX 15:00
PROVIDERS: PCP Internal Medicine; Visit Provider Internal Medicine
DX: S93.402A Sprain of unspecified ligament of left ankle, initial encounter (principal)
CPT/HCPCS: 73610

== ENCOUNTER 2022-02-06 06:28 | Outpatient (REF) | payer OTHER, SELFPAY ==
--- NOTE | 2022-02-06 09:48 | MHC.SHP ---
Pre-Procedural Eval Section A Date of Service: 02/06/22 The patient is an INPATIENT: No Changes since office visit: No Cold of Flu in the past 2 weeks, No New Medical Problems, No Changes in Medication and No Patient answered all questions The History & Physical has been completed within 30 days and I have reviewed it.: Yes Section B Chief Complaint: Carpal tunnel syndrome, right upper limb Allergies: Allergies Allergy/AdvReac Type Severity Reaction Status Date / Time amoxicillin [Prevpac] Allergy Intermediate itchy Verified 02/04/22 14:33 throat ibuprofen [From Motrin] Allergy Intermediate UPSET Verified 02/04/22 14:33 STOMACH, abdominal pain lansoprazole [Prevpac] Allergy Intermediate itchy Verified 02/04/22 14:33 throat morphine [MORPHINE] Allergy Intermediate PALPATATIONS, Verified 02/04/22 14:33 PANIC ATTACKS, nauseas,panic attack, heart palpitations omeprazole [From PRILOSEC] Allergy Intermediate ITCHY Verified 02/04/22 14:33 THROAT pravastatin [PRAVASTATIN] Allergy Intermediate UNKNOWN Verified 02/04/22 14:33 rosuvastatin [From CRESTOR] Allergy Intermediate UNKNOWN Verified 02/04/22 14:33 terbinafine [TERBINAFINE] Allergy Intermediate UNKNOWN Verified 02/04/22 14:33 Vicodin Allergy Intermediate palpitations, Verified 02/04/22 14:33 itch atorvastatin [From LIPITOR] Allergy Unknown UNKNOWN Verified 02/04/22 14:33 clarithromycin [From BIAXIN] AdvReac Intermediate ABD PAIN, Verified 02/04/22 14:33 DIARRHEA gabapentin [GABAPENTIN] AdvReac Intermediate UNKNOWN, Verified 02/04/22 14:33 nausea, dizziness levofloxacin [LEVOFLOXACIN] AdvReac Intermediate PALPITATION Verified 02/04/22 14:33 S tylenol with codeine Allergy Unknown fast heart Uncoded 02/04/22 14:33 rate Plan I have reviewed the history and physical and performed a pertinent physical examination on my patient. No changes have occurred unless specified.
--- NOTE | 2022-02-06 09:48 | W.PM.OPN ---
Operative Note Operative Note Date of Service: 02/06/22 Narrative: Preop diagnosis: 1. right Carpal tunnel syndrome Postop diagnosis: same Procedure: 1. right Carpal tunnel release Surgeon: Gisela Salguero MD Anesthesia: local block using 1% lidocaine with epinephrine Findings: Thickened transverse carpal ligament. EBL: Less than 5 mL Specimens: None Complications: None Disposition: Brought to recovery room in stable condition Plan: Follow-up for 10-14 days for wound check and suture removal Indications: The patient is 51 years old, with right carpal tunnel syndrome that has been unresponsive to nonoperative management. The risks and benefits of operative treatment including but not limited to risk of damage to blood vessels, nerves, tendons, infection, persistent pain, persistent symptoms, or possible need for additional surgery were discussed with the patient and the patient wishes to proceed with surgery. Procedure: Once consent was obtained a local block was performed using a combination of 1% lidocaine with epinephrine. The patient was then brought back to the operating suite and placed on the operative table in supine position. A tourniquet was applied to the proximal aspect of the right upper extremity and the limb was prepped and draped in a standard surgical fashion. Once assured that we had a good block, a 1.5 cm longitudinal incision was made centered over the carpal tunnel. The incision was made through the skin to the subcutaneous tissues using a #15 blade. Dissection was made down to the level of the transverse carpal ligament with care being taken to protect the palmar cutaneous nerve. Once the transverse carpal ligament was clearly visualized, a longitudinal incision was made in the transverse carpal ligament 1st using a #15 blade, then using tenotomy scissors under direct visualization. Care was taken to look for and protect the motor branch of the median nerve when seen in this area. Once satisfied with our carpal tunnel release the wound was copiously irrigated with normal saline and hemostasis was obtained with a brief period of local pressure. The skin edges were reapproximated with some 5.0 nylon suture material and a sterile dressing was applied. The patient appears to have tolerated the procedure well and with no complications. All digits were well vascularized at the conclusion of the case.
== END 2022-02-06 06:29 | disposition home or self-care (01) ==
LOC: HO.MS 06:28
PROVIDERS: PCP Internal Medicine; Visit Provider Orthopaedic Surgery
PROC: (CPT 64721; principal; 2022-02-06 11:40)
DX: G56.01 Carpal tunnel syndrome, right upper limb (principal); R20.0 Anesthesia of skin; I10 Essential (primary) hypertension; E78.5 Hyperlipidemia, unspecified; M79.7 Fibromyalgia; E11.9 Type 2 diabetes mellitus without complications; M25.50 Pain in unspecified joint; Z88.1 Allergy status to other antibiotic agents; Z88.8 Allergy status to other drugs, medicaments and biological substances
CPT/HCPCS: 64721; J0171

== ENCOUNTER → 2022-02-28 13:55 | Outpatient (BNVA) | payer MEDICAID, SELFPAY | PROVIDERS: PCP Internal Medicine Geriatric Medicine; Visit Provider Physician Assistant | DX: S93.402A Sprain of unspecified ligament of left ankle, initial encounter (principal) | CPT/HCPCS: 99202 ==

== ENCOUNTER 2022-03-24 14:10 | Outpatient (REF) | payer MEDICAID, SELFPAY ==
[2022-03-24 14:26] LABS: MANUAL DIFF FLAG NO
[2022-03-24 14:50] LABS: Basophils Absolute Auto 0.1 X10*3/uL (0.0-0.2); Basophils Percent Auto 0.6 % (0-2); Eosinophils Absolute Auto 0.1 X10*3/uL (0.0-0.4); Eosinophils Percent Auto 1.1 % (0-4); Hematocrit 42.2 % (37.0-47.0); Hemoglobin 13.2 g/dl (12.0-16.0); Imm Gran Abs Auto 0.03 X10*3/uL (0.00-0.03); Imm Gran Pct Auto 0.4 % (0.0-0.4); Lymphocytes Absolute Auto 2.4 X10*3/uL (1.2-4.9); Lymphocytes Percent Auto 29.5 % (20-40); Mean Corpuscular HGB Conc 31.3 g/dl (31.0-35.0); Mean Corpuscular Hemoglobin 26.6 pg (27.0-33.0); Mean Corpuscular Volume 84.9 fL (80.0-98.0); Monocytes Absolute Auto 0.6 X10*3/uL (0.1-1.2); Monocytes Percent Auto 7.1 % (2-11); Neutrophils Absolute Auto 5.1 x10*3/uL (2.0-8.3); Neutrophils Percent Auto 61.3 % (45-73); Platelet Count 319 X10*3/uL (160-400); Red Blood Count 4.97 X10*6/uL (4.20-5.50); Red Cell Distribution Width 13.7 % (11.0-16.0); White Blood Count 8.3 X10*3/uL (4.8-10.8)
[2022-03-24 14:56] LABS: Estimated Average Glucose 151 mg/dL; Hemoglobin A1c % 6.9 %
[2022-03-24 15:06] LABS: Alanine Aminotransferase 29 U/L (0-31); Albumin Level 4.4 g/dL (3.5-5.0); Alkaline Phosphatase 101 U/L (39-117); Anion Gap 12 (12-20); Aspartate Amino Transferase 25 U/L (5-31); Bilirubin Total 0.7 mg/dL (0.0-1.0); Blood Urea Nitrogen 15 mg/dL (9-16); Calcium 9.4 mg/dL (8.4-10.2); Carbon Dioxide 28 mmol/L (22-29); Chloride 104 mmol/L (96-108); Cholesterol 225 mg/dL; Estimated Glomerular Filt Rate > 60; Glucose Fasting 115 mg/dL (60-99); HDL Cholesterol 35 mg/dL; LDL Cholesterol Calculated 150 mg/dl; Potassium 4.4 mmol/L (3.3-5.1); Sodium 140 mmol/L (135-145); Total Protein 7.4 g/dL (6.5-8.0); Triglycerides 200 mg/dL
[2022-03-24 15:07] LABS: Appearance Urine Cloudy; Color Urine Dark Yellow; Glucose Urine UA Negative (Negative); Leukocyte Esterase Urine Moderate (2+) (Negative); Nitrite Urine Negative (Negative); Specific Gravity - Urine 1.025 (1.005-1.025); UMIC TRIGGER UACC YES; Urine Blood Negative (Negative); Urine Ketones Trace mg/dL (Negative); Urine Protein Negative (Neg-Trace)
[2022-03-24 15:14] LABS: Microalbum/Creatinine Ratio Ur 5.5 ug/mg cr
[2022-03-24 15:15] LABS: Bacteria Urine 2+ (None Seen); UACC Culture Trigger YES; WBC Urine 21-50 /HPF (0-5)
[2022-03-24 15:28] LABS: TSH reflex Free T4 1.68 uIU/mL (0.32-4.0); Vitamin D 25-OH Total 32.5 ng/mL (>30)
== END 2022-03-24 14:11 | disposition home or self-care (01) ==
LOC: HO.LAB 14:10
PROVIDERS: PCP Internal Medicine Geriatric Medicine; Referring Provider Internal Medicine Geriatric Medicine; Visit Provider Internal Medicine
DX: I10 Essential (primary) hypertension (principal); E78.00 Pure hypercholesterolemia, unspecified; E11.9 Type 2 diabetes mellitus without complications; E55.9 Vitamin D deficiency, unspecified
CPT/HCPCS: 36415; 80053; 80061; 81001; 81003; 82043; 82306; 83036; 84443; 85025; 87086

== ENCOUNTER → 2022-04-23 13:45 | Outpatient (BNVA) | payer MEDICAID, SELFPAY | PROVIDERS: PCP Internal Medicine Geriatric Medicine; Visit Provider Internal Medicine Pulmonary Disease | DX: J45.40 Moderate persistent asthma, uncomplicated (principal); K21.9 Gastro-esophageal reflux disease without esophagitis; R05.3 Chronic cough | CPT/HCPCS: 99212 ==

== ENCOUNTER 2022-05-01 12:55 | Outpatient (REF) | payer MEDICAID, SELFPAY ==
--- NOTE | ~2022-05-01 | MM_ITS ---
EXAMINATION: MM DIAGNOSTIC DIGITAL BREAST TOMOSYNTHESIS, BILATERAL US DIAGNOSTIC ULTRASOUND BREAST, BILATERAL CLINICAL INFORMATION: There are for yearly. Patient notes palpable small nodularity upper bilateral chest. The lifetime risk of breast cancer based on the Tyrer-Cuzick Model is 14%. COMPARISON: Mammography: 04/25/2021, 04/19/2020, 03/17/2019, 03/16/2018 TECHNIQUE: Digital breast tomosynthesis is performed in both the craniocaudal and mediolateral oblique views along with computer-aided detection (CAD). Synthesized 2D images are generated from the tomosynthesis. Additional left MLO view is provided. Ultrasound bilateral breasts/upper anterior chest is performed using grayscale imaging and color Doppler without and with harmonics. Patient is able to point areas of clinical concern at time of exam. FINDINGS: There are scattered areas of fibroglandular density (ACR BI-RADS breast composition Category b). There are no significant masses, abnormal calcifications, or other abnormalities. No developing density or interval mass or architectural abnormality. The axilla and skin contours are unremarkable. Ultrasound bilateral upper breasts/anterior chest demonstrate no cystic or solid mass or architectural abnormality. No skin thickening or edema tracking in soft tissue planes. The possible soft tissue planes appear normal. Results are discussed with the patient at time of visit. Patient to follow-up with her PCP for clinical evaluation. If clinically indicated, further evaluation of the upper chest soft tissues could be performed with MRI or CT. MM/MM tomosynthesis diagnostic BI IMPRESSION: -No mammographic evidence of malignancy. -Unremarkable bilateral ultrasound. ASSESSMENT: BI-RADS 1: Negative RECOMMENDATION: 1. Patient should be managed based on the clinical impression. 2. Otherwise, routine annual screening mammography. This patient's information was entered into a reminder system with a target due date for their next mammogram.
== END 2022-05-01 12:56 | disposition home or self-care (01) ==
LOC: HO.MAMMO 12:55
PROVIDERS: PCP Internal Medicine Geriatric Medicine; Visit Provider Internal Medicine Geriatric Medicine
DX: N63.15 Unspecified lump in the right breast, overlapping quadrants (principal); N63.25 Unspecified lump in the left breast, overlapping quadrants
CPT/HCPCS: 76642; 77062; 77066

== ENCOUNTER 2022-05-26 14:39 | Outpatient (REF) | payer MEDICAID, SELFPAY ==
--- NOTE | ~2022-05-26 | XR_ITS ---
EXAMINATION: XR HAND, BILATERAL XR FOOT, BILATERAL XR SACROILIAC JOINT XR SACRUM AND COCCYX CLINICAL INFORMATION: Pain all over. COMPARISON: None TECHNIQUE: SI joints 3 views. Sacrum and coccyx 3 views. 3 views each foot. 3 views each hand. FINDINGS: SI JOINT: There is normal symmetry of SI joints without sclerosis or erosive changes. Normal joint space is noted. The soft tissues are normal. SACRUM AND/OR COCCYX: There is no visible acute fracture, dislocation or subluxation. The presacral and post soft tissues are normal. BILATERAL FOOT: There is minimal reduction in bilateral PIP and DIP joint spaces. The MTP joint space is maintained normal. No bony erosive changes seen. No visible acute fracture, dislocation or subluxation seen. The ankle mortise and subtalar joints are normal. There are moderate size retrocalcaneal heel enthesophytes. No soft tissue swelling. BILATERAL HAND: There is mild reduction of PIP and DIP joint spaces of all digits. The MCP joint and the carpometacarpal joint spaces are preserved. No osteopenia, periosteal spurring or soft tissue swelling seen. XR/XR hand LT min 3V IMPRESSION: Unremarkable bilateral SI joints. Unremarkable sacrum and coccyx. Mild reduction of bilateral PIP and DIP joints of both feet and both hands but no spurring or bony erosive changes or soft tissue swelling. This may represent early degenerative osteoarthritic changes.
--- NOTE | ~2022-05-26 | XR_ITS ---
EXAMINATION: XR HAND, BILATERAL XR FOOT, BILATERAL XR SACROILIAC JOINT XR SACRUM AND COCCYX CLINICAL INFORMATION: Pain all over. COMPARISON: None TECHNIQUE: SI joints 3 views. Sacrum and coccyx 3 views. 3 views each foot. 3 views each hand. FINDINGS: SI JOINT: There is normal symmetry of SI joints without sclerosis or erosive changes. Normal joint space is noted. The soft tissues are normal. SACRUM AND/OR COCCYX: There is no visible acute fracture, dislocation or subluxation. The presacral and post soft tissues are normal. BILATERAL FOOT: There is minimal reduction in bilateral PIP and DIP joint spaces. The MTP joint space is maintained normal. No bony erosive changes seen. No visible acute fracture, dislocation or subluxation seen. The ankle mortise and subtalar joints are normal. There are moderate size retrocalcaneal heel enthesophytes. No soft tissue swelling. BILATERAL HAND: There is mild reduction of PIP and DIP joint spaces of all digits. The MCP joint and the carpometacarpal joint spaces are preserved. No osteopenia, periosteal spurring or soft tissue swelling seen. XR/XR hand RT min 3V IMPRESSION: Unremarkable bilateral SI joints. Unremarkable sacrum and coccyx. Mild reduction of bilateral PIP and DIP joints of both feet and both hands but no spurring or bony erosive changes or soft tissue swelling. This may represent early degenerative osteoarthritic changes.
--- NOTE | ~2022-05-26 | XR_ITS ---
EXAMINATION: XR HAND, BILATERAL XR FOOT, BILATERAL XR SACROILIAC JOINT XR SACRUM AND COCCYX CLINICAL INFORMATION: Pain all over. COMPARISON: None TECHNIQUE: SI joints 3 views. Sacrum and coccyx 3 views. 3 views each foot. 3 views each hand. FINDINGS: SI JOINT: There is normal symmetry of SI joints without sclerosis or erosive changes. Normal joint space is noted. The soft tissues are normal. SACRUM AND/OR COCCYX: There is no visible acute fracture, dislocation or subluxation. The presacral and post soft tissues are normal. BILATERAL FOOT: There is minimal reduction in bilateral PIP and DIP joint spaces. The MTP joint space is maintained normal. No bony erosive changes seen. No visible acute fracture, dislocation or subluxation seen. The ankle mortise and subtalar joints are normal. There are moderate size retrocalcaneal heel enthesophytes. No soft tissue swelling. BILATERAL HAND: There is mild reduction of PIP and DIP joint spaces of all digits. The MCP joint and the carpometacarpal joint spaces are preserved. No osteopenia, periosteal spurring or soft tissue swelling seen. XR/XR sacrum coccyx min 2V IMPRESSION: Unremarkable bilateral SI joints. Unremarkable sacrum and coccyx. Mild reduction of bilateral PIP and DIP joints of both feet and both hands but no spurring or bony erosive changes or soft tissue swelling. This may represent early degenerative osteoarthritic changes.
--- NOTE | ~2022-05-26 | XR_ITS ---
EXAMINATION: XR HAND, BILATERAL XR FOOT, BILATERAL XR SACROILIAC JOINT XR SACRUM AND COCCYX CLINICAL INFORMATION: Pain all over. COMPARISON: None TECHNIQUE: SI joints 3 views. Sacrum and coccyx 3 views. 3 views each foot. 3 views each hand. FINDINGS: SI JOINT: There is normal symmetry of SI joints without sclerosis or erosive changes. Normal joint space is noted. The soft tissues are normal. SACRUM AND/OR COCCYX: There is no visible acute fracture, dislocation or subluxation. The presacral and post soft tissues are normal. BILATERAL FOOT: There is minimal reduction in bilateral PIP and DIP joint spaces. The MTP joint space is maintained normal. No bony erosive changes seen. No visible acute fracture, dislocation or subluxation seen. The ankle mortise and subtalar joints are normal. There are moderate size retrocalcaneal heel enthesophytes. No soft tissue swelling. BILATERAL HAND: There is mild reduction of PIP and DIP joint spaces of all digits. The MCP joint and the carpometacarpal joint spaces are preserved. No osteopenia, periosteal spurring or soft tissue swelling seen. XR/XR foot LT 2V IMPRESSION: Unremarkable bilateral SI joints. Unremarkable sacrum and coccyx. Mild reduction of bilateral PIP and DIP joints of both feet and both hands but no spurring or bony erosive changes or soft tissue swelling. This may represent early degenerative osteoarthritic changes.
--- NOTE | ~2022-05-26 | XR_ITS ---
EXAMINATION: XR HAND, BILATERAL XR FOOT, BILATERAL XR SACROILIAC JOINT XR SACRUM AND COCCYX CLINICAL INFORMATION: Pain all over. COMPARISON: None TECHNIQUE: SI joints 3 views. Sacrum and coccyx 3 views. 3 views each foot. 3 views each hand. FINDINGS: SI JOINT: There is normal symmetry of SI joints without sclerosis or erosive changes. Normal joint space is noted. The soft tissues are normal. SACRUM AND/OR COCCYX: There is no visible acute fracture, dislocation or subluxation. The presacral and post soft tissues are normal. BILATERAL FOOT: There is minimal reduction in bilateral PIP and DIP joint spaces. The MTP joint space is maintained normal. No bony erosive changes seen. No visible acute fracture, dislocation or subluxation seen. The ankle mortise and subtalar joints are normal. There are moderate size retrocalcaneal heel enthesophytes. No soft tissue swelling. BILATERAL HAND: There is mild reduction of PIP and DIP joint spaces of all digits. The MCP joint and the carpometacarpal joint spaces are preserved. No osteopenia, periosteal spurring or soft tissue swelling seen. XR/XR foot RT 2V IMPRESSION: Unremarkable bilateral SI joints. Unremarkable sacrum and coccyx. Mild reduction of bilateral PIP and DIP joints of both feet and both hands but no spurring or bony erosive changes or soft tissue swelling. This may represent early degenerative osteoarthritic changes.
--- NOTE | ~2022-05-26 | XR_ITS ---
EXAMINATION: XR HAND, BILATERAL XR FOOT, BILATERAL XR SACROILIAC JOINT XR SACRUM AND COCCYX CLINICAL INFORMATION: Pain all over. COMPARISON: None TECHNIQUE: SI joints 3 views. Sacrum and coccyx 3 views. 3 views each foot. 3 views each hand. FINDINGS: SI JOINT: There is normal symmetry of SI joints without sclerosis or erosive changes. Normal joint space is noted. The soft tissues are normal. SACRUM AND/OR COCCYX: There is no visible acute fracture, dislocation or subluxation. The presacral and post soft tissues are normal. BILATERAL FOOT: There is minimal reduction in bilateral PIP and DIP joint spaces. The MTP joint space is maintained normal. No bony erosive changes seen. No visible acute fracture, dislocation or subluxation seen. The ankle mortise and subtalar joints are normal. There are moderate size retrocalcaneal heel enthesophytes. No soft tissue swelling. BILATERAL HAND: There is mild reduction of PIP and DIP joint spaces of all digits. The MCP joint and the carpometacarpal joint spaces are preserved. No osteopenia, periosteal spurring or soft tissue swelling seen. XR/XR sacroiliac joint min 3V IMPRESSION: Unremarkable bilateral SI joints. Unremarkable sacrum and coccyx. Mild reduction of bilateral PIP and DIP joints of both feet and both hands but no spurring or bony erosive changes or soft tissue swelling. This may represent early degenerative osteoarthritic changes.
[2022-05-26 16:25] LABS: MANUAL DIFF FLAG NO
[2022-05-26 16:34] LABS: Basophils Absolute Auto 0.1 X10*3/uL (0.0-0.2); Basophils Percent Auto 0.5 % (0-2); Eosinophils Absolute Auto 0.1 X10*3/uL (0.0-0.4); Eosinophils Percent Auto 1.4 % (0-4); Hemoglobin 13.2 g/dl (12.0-16.0); Imm Gran Abs Auto 0.03 X10*3/uL (0.00-0.03); Imm Gran Pct Auto 0.3 % (0.0-0.4); Lymphocytes Absolute Auto 2.9 X10*3/uL (1.2-4.9); Mean Corpuscular HGB Conc 32.2 g/dl (31.0-35.0); Mean Corpuscular Hemoglobin 27.1 pg (27.0-33.0); Mean Corpuscular Volume 84.2 fL (80.0-98.0); Monocytes Absolute Auto 0.7 X10*3/uL (0.1-1.2); Monocytes Percent Auto 7.1 % (2-11); Neutrophils Absolute Auto 5.5 x10*3/uL (2.0-8.3); Neutrophils Percent Auto 59.7 % (45-73); Platelet Count 283 X10*3/uL (160-400); Red Blood Count 4.87 X10*6/uL (4.20-5.50); Red Cell Distribution Width 13.2 % (11.0-16.0); White Blood Count 9.3 X10*3/uL (4.8-10.8)
[2022-05-26 16:55] LABS: Alanine Aminotransferase 25 U/L (0-31); Albumin Level 4.2 g/dL (3.5-5.0); Alkaline Phosphatase 110 U/L (39-117); Anion Gap 11 (12-20); Aspartate Amino Transferase 22 U/L (5-31); Bilirubin Total 0.6 mg/dL (0.0-1.0); Blood Urea Nitrogen 15 mg/dL (9-16); C Reactive Protein 0.64 mg/dL (< or = 0.50); Calcium 9.5 mg/dL (8.4-10.2); Carbon Dioxide 28 mmol/L (22-29); Chloride 105 mmol/L (96-108); Estimated Glomerular Filt Rate > 60; Glucose Random 139 mg/dL (60-115); Sodium 140 mmol/L (135-145); Total Protein 7.2 g/dL (6.5-8.0)
[2022-05-26 17:12] LABS: Erythrocyte Sedimentation Rate 19 MM/HR (0-20)
[2022-05-27 08:30] LABS: HBS Num1 0.58 mIU/mL (0-7.99); HBsAGNum1 0.33 S/CO (0.00-0.99); Hepatitis B Core Antibody Nonreactive (Nonreactive); Hepatitis B Surface Antigen Negative (Negative); ~HepC Num1 0.06 S/CO (0.00-0.79); ~Hepatitis B Surface Antibody NONREACTIVE (Nonreactive); ~Hepatitis C Antibody Nonreactive (Nonreactive)
[2022-05-28 07:55] LABS: Hepatitis A Antibody IgM 0.13 Index (0-0.79); ~Hepatitis A Antibody IgM Nonreactive (Nonreactive)
[2022-05-28 22:44] LABS: TS Negative Control Passed; TS Panel A 0; TS Panel B 0; TS Positive Control Passed; TSpotTB Negative (Negative)
== END 2022-05-26 14:40 | disposition home or self-care (01) ==
LOC: HO.LAB 14:39
PROVIDERS: Absent Provider Nurse Practitioner Family; PCP Internal Medicine Geriatric Medicine; Visit Provider Orthopaedic Surgery
DX: Z11.1 Encounter for screening for respiratory tuberculosis (principal); M65.4 Radial styloid tenosynovitis [de Quervain]; G56.01 Carpal tunnel syndrome, right upper limb; M79.671 Pain in right foot; M79.672 Pain in left foot; M54.50 Low back pain, unspecified; M79.641 Pain in right hand; M79.642 Pain in left hand; M79.18 Myalgia, other site
CPT/HCPCS: 36415; 72202; 72220; 73130; 73620; 80053; 85025; 85652; 86140; 86481; 86704; 86706; 86709; 86803; 87340; 99212

== ENCOUNTER 2022-06-02 11:45 | Emergency (ER) | payer MEDICAID, SELFPAY ==
--- NOTE | ~2022-06-02 | XR_ITS ---
EXAMINATION: XR CHEST CLINICAL INFORMATION: Chest pain, cough COMPARISON: 10/05/2021 TECHNIQUE: 2 views of the chest were obtained. FINDINGS: New retrocardiac left lower lobe opacity. Right lung clear. No pleural effusion or pneumothorax. Normal heart size. Lower cervical fusion hardware. XR/XR chest 2V IMPRESSION: New hazy retrocardiac left lower lobe opacity could represent atelectasis, aspiration, or pneumonia.
--- NOTE | ~2022-06-02 | CT_ITS ---
EXAMINATION: CT CHEST WITHOUT CONTRAST CLINICAL INFORMATION: Chest pain and cough with infiltrate on CT scan COMPARISON: Chest radiograph earlier today along with CT chest 10/30/2020 TECHNIQUE: Multidetector volumetric CT imaging of the chest was done. Axial MIP volume rendering provided. Sagittal and coronal reformatted images were obtained. This CT examination was performed using dose optimization techniques as appropriate, variously including the following: *Automated exposure control *Adjustment of mA and/or kV according to patient size (this includes techniques or standardized protocols for targeted exams where dose is matched to indication/reason for exam; i.e. extremities or head) *Use of iterative reconstruction technique DLP: 384 mGy-cm FINDINGS: LUNGS: The lungs are clear with no evidence of inflammation or nodules. The infiltrate seen on the chest radiograph is not substantiated on this chest CT. MEDIASTINUM: The heart is not enlarged. No mediastinal or hilar lymphadenopathy is present. Central vascular structures are. CORONARY ARTERY CALCIFICATION: None visualized on this study. PLEURA: There is no pleural effusion. No pleural mass or thickening. AXILLA: No lymphadenopathy. UPPER ABDOMEN: There is marked hepatic steatosis present with focal fatty sparing around the gallbladder. OSSEOUS STRUCTURES: Mild degenerative changes present in the spine. ACDF noted lower cervical spine. CT/CT chest wo IV con IMPRESSION: 1. A cause for the patient's chest pain has not been found. 2. The lungs are clear and a infiltrate, lung mass or any other abnormality is not present to account for the finding on the chest radiograph earlier today. 3. Incidental note made of marked hepatic steatosis and mild degenerative changes in the spine. Fleischner guidelines were followed.
--- NOTE | ~2022-06-02 | CT_ITS ---
EXAMINATION: CT HEAD WITHOUT CONTRAST CLINICAL INFORMATION: Headache, hypertension COMPARISON: None TECHNIQUE: Contiguous axial imaging was performed from the skull base to vertex without intravenous administration of contrast. This CT examination was performed using dose optimization techniques as appropriate, variously including the following: *Automated exposure control *Adjustment of mA and/or kV according to patient size (this includes techniques or standardized protocols for targeted exams where dose is matched to indication/reason for exam; i.e. extremities or head) *Use of iterative reconstruction technique DLP: 718 mGy-cm FINDINGS: There is no evidence of acute intracranial hemorrhage or territorial infarction. No abnormal mass-effect or midline shift is seen. Davis to white matter differentiation is well preserved. No extra-axial fluid collections are identified. The ventricles are normal in size. There is no abnormal attenuation within the brain parenchyma. The osseous structures and soft tissues are normal. The mastoid air cells and visualized portions of the paranasal sinuses are well-aerated. CT/CT head/brain wo IV con IMPRESSION: No acute intracranial pathology.
--- NOTE | 2022-06-02 11:52 | ED_ITS ---
HPI - Chest Pain General Chief Complaint: Chest Pain <Chelsea Kaye CNP - Last Filed: 06/02/22 11:57> Stated Complaint: Chest Pain <Chelsea Kaye CNP - Last Filed: 06/02/22 11:57> Time Seen by Provider: 06/02/22 22:42 <Chelsea Kaye CNP - Last Filed: 06/02/22 11:57> Related Data Home Medications: Home Medications Medication Instructions Recorded Confirmed albuterol sulfate 90 mcg/actuation 2 puff PO QID PRN 03/21/20 05/26/22 aerosol inhaler hydrocortisone 2.5 % topical cream applic topical BID 03/21/20 05/26/22 alclometasone 0.05 % topical cream appl topical 02/04/21 05/26/22 betamethasone, augmented 0.05 % topical BID PRN 02/04/21 05/26/22 lotion calcipotriene 0.005 % scalp topical 02/04/21 05/26/22 solution albuterol sulfate 2.5 mg/3 mL 2.5 mg continuous nebulization QID 12/06/21 05/26/22 (0.083 %) solution for nebulization PRN shortness of breath or wheezing Previous Rx's Medication Instructions Recorded acetaminophen 500 mg tablet 500 mg PO Q6H PRN pain or fever 10/30/20 (Tylenol Extra Strength) #20 tabs sumatriptan succinate 50 mg tablet 50 mg PO Q2-4H PRN migraine 02/04/21 headache 30 days #10 tabs blood pressure monitor #1 ea 05/06/21 blood-glucose meter (FreeStyle #1 ea 05/06/21 Lite Meter kit) lancets 28 gauge #100 ea 05/06/21 cholecalciferol (vitamin D3) 50 50 mcg PO DAILY 90 days #90 caps 05/08/21 mcg (2,000 unit) capsule aspirin 81 mg tablet,delayed 81 mg PO DAILY #90 tabs 08/23/21 release loratadine 10 mg tablet (Claritin) 10 mg PO DAILY PRN allergy 08/23/21 symptoms 90 days #90 tabs hydrochlorothiazide 25 mg tablet 25 mg PO DAILY #90 tabs 10/21/21 meclizine 25 mg tablet 25 mg PO DAILY PRN dizziness 15 10/21/21 days #15 tabs Symbicort 160 mcg-4.5 2 puff inhalation BID 30 days #1 ea 10/23/21 mcg/actuation HFA aerosol inhaler (budesonide-formoterol) RIGHT WRIST SPLINT (large) #1 ea 12/06/21 simvastatin 20 mg tablet 20 mg PO BEDTIME 30 days #30 tabs 12/19/21 carvedilol 3.125 mg tablet 3.125 mg PO BID 90 days #180 tabs 01/20/22 zolpidem 10 mg tablet 10 mg PO BEDTIME PRN insomnia 90 01/21/22 days #90 tabs pantoprazole 40 mg tablet,delayed 40 mg PO BID 30 days #60 tabs 01/22/22 release (Protonix) dicyclomine 10 mg capsule 10 mg PO QIDACHS #120 caps 01/23/22 blood sugar diagnostic (FreeStyle #100 strips 01/24/22 Lite Strips) meloxicam 15 mg tablet 15 mg PO DAILY #14 tabs 02/04/22 famotidine 40 mg tablet 40 mg PO BEDTIME #30 tabs 04/11/22 sucralfate 100 mg/mL oral 10 ml PO TID 30 days #900 mL 04/23/22 suspension (Carafate) <Chelsea Kaye, [employer] - Last Filed: 06/02/22 11:57> Allergies/Adverse Reactions: Allergies Allergy/AdvReac Type Severity Reaction Status Date / Time amoxicillin [Prevpac] Allergy Intermediate itchy Verified 05/26/22 20:06 throat ibuprofen [From Motrin] Allergy Intermediate UPSET Verified 05/26/22 20:06 STOMACH, abdominal pain lansoprazole [Prevpac] Allergy Intermediate itchy Verified 05/26/22 20:06 throat morphine [MORPHINE] Allergy Intermediate PALPATATIONS, Verified 05/26/22 20:06 PANIC ATTACKS, nauseas,panic attack, heart palpitations omeprazole [From PRILOSEC] Allergy Intermediate ITCHY Verified 05/26/22 20:06 THROAT pravastatin [PRAVASTATIN] Allergy Intermediate UNKNOWN Verified 05/26/22 20:06 rosuvastatin [From CRESTOR] Allergy Intermediate UNKNOWN Verified 05/26/22 20:06 terbinafine [TERBINAFINE] Allergy Intermediate UNKNOWN Verified 05/26/22 20:06 Vicodin Allergy Intermediate palpitations, Verified 05/26/22 20:06 itch atorvastatin [From LIPITOR] Allergy Unknown UNKNOWN Verified 05/26/22 20:06 clarithromycin [From BIAXIN] AdvReac Intermediate ABD PAIN, Verified 05/26/22 2 0:06 DIARRHEA gabapentin [GABAPENTIN] AdvReac Intermediate UNKNOWN, Verified 05/26/22 20:06 nausea, dizziness levofloxacin [LEVOFLOXACIN] AdvReac Intermediate PALPITATION Verified 05/26/22 20:06 S tylenol with codeine Allergy Unknown fast heart Uncoded 05/26/22 20:06 rate <Chelsea Kaye [facility] - Last Filed: 06/02/22 11:57> [facility] Past Medical History Medical History: Medical History Allergic rhinitis Arthritis Benign essential hypertension Breast pain during Candidiasis of mouth and esophagus Carpal tunnel syndrome Diabetes mellitus Fibromyalgia Insomnia Lumbar degenerative disc disease Mixed hyperlipidemia Morbid obesity with BMI of 40.0-44.9, adult Polyarthralgia Thoracic spondylosis <Chelsea Kaye CNP - Last Filed: 06/02/22 11:57> Surgical History: Surgical History H/O hemorrhoidectomy History of appendectomy History of dermoid cyst excision History of esophagogastroduodenoscopy (EGD) History of excision of lamina of cervical vertebra for decompression of spinal cord Hx of colonoscopy <Chelsea Kaye [employer] - Last Filed: 06/02/22 11:57> Family History Family History: Family History Father NIDDY (non-insulin dependent diabetes mellitus in young) Cardiovascular disease Obesity Cancer of unknown origin Mother CAD (coronary artery disease) NIDDY (non-insulin dependent diabetes mellitus in young) Brother Schizophrenia Degenerative disc disease H/O lymph node cancer Sister Breast cancer Paternal Grandmother Ovarian cancer, Onset Age: 45 Daughter Fibromyalgia Hypertension Cancer of unknown origin Other Mental health problem <Chelsea Kaye CNP - Last Filed: 06/02/22 11:57> Social History Social History: Social History Household Members: None Housing: Apartment Alcohol intake: never Patient Tobacco Use Status: Never used Tobacco e-Cigarette/Vaping Use: Never Used Second Hand Smoke Exposure: No Advance Directives: No Advance Directives Information Provided: No service: No Current occupational status: disabled 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 Sexual orientation: Straight/Heterosexual Gender identity: Female Cognitive needs: No Hearing needs: Yes Vision needs: Yes <Chelsea Kaye CNP - Last Filed: 06/02/22 11:57> Physical Exam Vital Signs: Vital Signs: Last Vital Signs Temp 99.3 F 06/02/22 22:45 Pulse 67 06/02/22 23:50 Resp 15 06/02/22 23:50 BP 145/73 H 06/02/22 23:50 Pulse Ox 98 06/02/22 23:50 O2 Del Method 06/02/22 23:50 BMI result Body Mass Index 34.2 <Chelsea Kaye CNP - Last Filed: 06/02/22 11:57> Vital Signs: Last Vital Signs Temp 99.3 F 06/02/22 22:45 Pulse 67 06/02/22 23:50 Resp 15 06/02/22 23:50 BP 145/73 H 06/02/22 23:50 Pulse Ox 98 06/02/22 23:50 O2 Del Method 06/02/22 23:50 BMI result Body Mass Index 34.2 <Agnes Keating MD - Last Filed: 06/03/22 01:44> Course Course Course Narrative: RME: Patient is a 52-year-old who presents emergency department for evaluation of chest pain. Reports past medical history of hypertension, diabetes, hypercholesterolemia, migraines, fibromyalgia. Reports back pain that radiates to the anterior chest and radiates to the left shoulder/arm feels like a squeezing pressure and has been constant for 4 days. Endorses a cough and associated intermittent dizziness. Plan: LAbs, EKG, chest x-ray, COVID-19/ influenza testing. <Chelsea Kaye CNP - Last Filed: 06/02/22 11:57> Reevaluation(s) Reevaluation #1: I reviewed all laboratory results which are not consistent with infection, anemia, still troponins are undetectable, all results were discussed with the patient at bedside and suspect a combination hypertensive urgency contributing to patient's headache as well as musculoskeletal pain as she does describe lifting up a heavy item prior to developing the chest wall pain from 4 days ago. <Agnes Keating MD - Last Filed: 06/03/22 01:44> Time: 01:08 <Agnes Keating MD - Last Filed: 06/03/22 01:44> Medications Administered Discontinued Medications Generic Name Dose Route Start Last Admin Trade Name Freq PRN Reason Stop Dose Admin Acetaminophen 975 mg 06/02/22 23:06 06/02/22 23:12 Acetaminophen 325 Mg Tablet PO 06/02/22 23:07 975 mg ONCE ONE Administration Hydralazine HCl 5 mg 06/02/22 23:09 06/02/22 23:13 Hydralazine Hcl 20 Mg/Ml Vial IVPUSH 06/02/22 23:10 5 mg ONCE ONE Administration Protocol <Chelsea Kaye CNP - Last Filed: 06/02/22 11:57> Medications Administered Discontinued Medications Generic Name Dose Route Start Last Admin Trade Name Freq PRN Reason Stop Dose Admin Acetaminophen 975 mg 06/02/22 23:06 06/02/22 23:12 Acetaminophen 325 Mg Tablet PO 06/02/22 23:07 975 mg ONCE ONE Administration Hydralazine HCl 5 mg 06/02/22 23:09 06/02/22 23:13 Hydralazine Hcl 20 Mg/Ml Vial IVPUSH 06/02/22 23:10 5 mg ONCE ONE Administration Protocol <Agnes Keating MD - Last Filed: 06/03/22 01:44> Medical Decision Making Lab Data Result Diagrams: : 06/02/22 12:21 06/02/22 12:21 <Chelsea Kaye CNP - Last Filed: 06/02/22 11:57> Labs: Lab Results 06/02/22 06/02/22 06/02/22 Range/Units 12:21 12:21 12:21 WBC 9.4 (4.8-10.8) X10*3/uL RBC 4.80 (4.20-5.50) X10*6/uL Hgb 13.0 (12.0-16.0) g/dl Hct 40.7 (37.0-47.0) % MCV 84.8 (80.0-98.0) fL MCH 27.1 (27.0-33.0) pg MCHC 31.9 (31.0-35.0) g/dl RDW 13.3 (11.0-16.0) % Plt Count 281 (160-400) X10*3/uL MPV 10.1 (9.4-12.3) fL Immature Gran % (Auto) 0.5 H (0.0-0.4) % Neut % (Auto) 67.4 (45-73) % Lymph % (Auto) 23.2 (20-40) % [place] % (Auto) 6.9 (2-11) % Eos % (Auto) 1.3 (0-4) % Baso % (Auto) 0.7 (0-2) % Lymph # (Auto) 2.2 (1.2-4.9) X10*3/uL [place] # (Auto) 0.7 (0.1-1.2) X10*3/uL Eos # (Auto) 0.1 (0.0-0.4) X10*3/uL Baso # (Auto) 0.1 (0.0-0.2) X10*3/uL Abs Immat Gran (auto) 0.05 H (0.00-0.03) X10*3/uL Absolute Neuts (auto) 6.3 (2.0-8.3) x10*3/uL Absolute Nucleated RBC 0.000 (0.0-0.012) X10*3/uL Nucleated RBC % (auto) 0.0 (0.0-0.2) /100WBC Sodium 142 (135-145) mmol/L Potassium 4.2 (3.3-5.1) mmol/L Chloride 105 (96-108) mmol/L Carbon Dioxide 29 (22-29) mmol/L Anion Gap 12 (12-20) BUN 13 (9-16) mg/dL Creatinine 0.81 (0.5-1.4) mg/dL Estim Creat Clear Calc 101.5 Estimated GFR > 60 Random Glucose 131 H (60-115) mg/dL Calcium 9.4 (8.4-10.2) mg/dL Magnesium 2.0 (1.6-2.6) mg/dL Total Bilirubin 1.0 (0.0-1.0) mg/dL AST 23 (5-31) U/L ALT 22 (0-31) U/L Alkaline Phosphatase 117 (39-117) U/L Troponin I High Sens < 3.5 (<3.5-17.0) ng/L Total Protein 7.2 (6.5-8.0) g/dL Albumin 4.2 (3.5-5.0) g/dL Lipase 23 (8-78) U/L Urine Color Urine Appearance Urine pH (5.0-9.0) Ur Specific [place] (1.005-1.025) Urine Protein (Neg-Trace) mg/dL Urine Glucose (UA) (Negative) mg/dL Urine Ketones (Negative) mg/dL Urine Blood (Negative) Urine Nitrite (Negative) Ur Leukocyte Esterase (Negative) Urine RBC (0-2) /HPF Urine WBC (0-5) /HPF Ur Squamous Epith Cells (0-2) /HPF Urine Bacteria (None Seen) Hyaline Casts (0-2) /LPF COVID-19 ([place]) (Negative) COVID-19 Clin Com Influenza Type A (KRISTEN) (Negative) Influenza Type B (KRISTEN) (Negative) Influenza A & B Note 06/02/22 06/02/22 06/02/22 Range/Units 12:21 12:21 23:08 WBC (4.8-10.8) X10*3/uL RBC (4.20-5.50) X10*6/uL Hgb (12.0-16.0) g/dl Hct (37.0-47.0) % MCV (80.0-98.0) fL MCH (27.0-33.0) pg MCHC (31.0-35.0) g/dl RDW (11.0-16.0) % Plt Count (160-400) X10*3/uL MPV (9.4-12.3) fL Immature Gran % (Auto) (0.0-0.4) % Neut % (Auto) (45-73) % Lymph % (Auto) (20-40) % [place] % (Auto) (2-11) % Eos % (Auto) (0-4) % Baso % (Auto) (0-2) % Lymph # (Auto) (1.2-4.9) X10*3/uL [place] # (Auto) (0.1-1.2) X10*3/uL Eos # (Auto) (0.0-0.4) X10*3/uL Baso # (Auto) (0.0-0.2) X10*3/uL Abs Immat Gran (auto) (0.00-0.03) X10*3/uL Absolute Neuts (auto) (2.0-8.3) x10*3/uL Absolute Nucleated RBC (0.0-0.012) X10*3/uL Nucleated RBC % (auto) (0.0-0.2) /100WBC Sodium (135-145) mmol/L Potassium (3.3-5.1) mmol/L Chloride (96-108) mmol/L Carbon Dioxide (22-29) mmol/L Anion Gap (12-20) BUN (9-16) mg/dL Creatinine (0.5-1.4) mg/dL Estim Creat Clear Calc Estimated GFR Random Glucose (60-115) mg/dL Calcium (8.4-10.2) mg/dL Magnesium (1.6-2.6) mg/dL Total Bilirubin (0.0-1.0) mg/dL AST (5-31) U/L ALT (0-31) U/L Alkaline Phosphatase (39-117) U/L Troponin I High Sens < 3.5 (<3.5-17.0) ng/L Total Protein (6.5-8.0) g/dL Albumin (3.5-5.0) g/dL Lipase (8-78) U/L Urine Color Urine Appearance Urine pH (5.0-9.0) Ur Specific [place] (1.005-1.025) Urine Protein (Neg-Trace) mg/dL Urine Glucose (UA) (Negative) mg/dL Urine Ketones (Negative) mg/dL Urine Blood (Negative) Urine Nitrite (Negative) Ur Leukocyte Esterase (Negative) Urine RBC (0-2) /HPF Urine WBC (0-5) /HPF Ur Squamous Epith Cells (0-2) /HPF Urine Bacteria (None Seen) Hyaline Casts (0-2) /LPF COVID-19 ([place]) Negative (Negative) COVID-19 Clin Com See Note Influenza Type A (KRISTEN) Negative (Negative) Influenza Type B (KRISTEN) Negative (Negative) Influenza A & B Note See Note 06/03/22 Range/Units 00:04 WBC (4.8-10.8) X10*3/uL RBC (4.20-5.50) X10*6/uL Hgb (12.0-16.0) g/dl Hct (37.0-47.0) % MCV (80.0-98.0) fL MCH (27.0-33.0) pg MCHC (31.0-35.0) g/dl RDW (11.0-16.0) % Plt Count (160-400) X10*3/uL MPV (9.4-12.3) fL Immature Gran % (Auto) (0.0-0.4) % Neut % (Auto) (45-73) % Lymph % (Auto) (20-40) % [place] % (Auto) (2-11) % Eos % (Auto) (0-4) % Baso % (Auto) (0-2) % Lymph # (Auto) (1.2-4.9) X10*3/uL [place] # (Auto) (0.1-1.2) X10*3/uL Eos # (Auto) (0.0-0.4) X10*3/uL Baso # (Auto) (0.0-0.2) X10*3/uL Abs Immat Gran (auto) (0.00-0.03) X10*3/uL Absolute Neuts (auto) (2.0-8.3) x10*3/uL Absolute Nucleated RBC (0.0-0.012) X10*3/uL Nucleated RBC % (auto) (0.0-0.2) /100WBC Sodium (135-145) mmol/L Potassium (3.3-5.1) mmol/L Chloride (96-108) mmol/L Carbon Dioxide (22-29) mmol/L Anion Gap (12-20) BUN (9-16) mg/dL Creatinine (0.5-1.4) mg/dL Estim Creat Clear Calc Estimated GFR Random Glucose (60-115) mg/dL Calcium (8.4-10.2) mg/dL Magnesium (1.6-2.6) mg/dL Total Bilirubin (0.0-1.0) mg/dL AST (5-31) U/L ALT (0-31) U/L Alkaline Phosphatase (39-117) U/L Troponin I High Sens (<3.5-17.0) ng/L Total Protein (6.5-8.0) g/dL Albumin (3.5-5.0) g/dL Lipase (8-78) U/L Urine Color Yellow Urine Appearance Cloudy Urine pH 6.0 (5.0-9.0) Ur Specific [place] 1.015 (1.005-1.025) Urine Protein Negative (Neg-Trace) mg/dL Urine Glucose (UA) Negative (Negative) mg/dL Urine Ketones Negative (Negative) mg/dL Urine Blood Negative (Negative) Urine Nitrite Negative (Negative) Ur Leukocyte Esterase Moderate (2+) H (Negative) Urine RBC 0-2 (0-2) /HPF Urine WBC 21-50 H (0-5) /HPF Ur Squamous Epith Cells 6-10 (0-2) /HPF Urine Bacteria Trace (None Seen) Hyaline Casts 0-2 (0-2) /LPF COVID-19 ([place]) (Negative) COVID-19 Clin Com Influenza Type A (KRISTEN) (Negative) Influenza Type B (KRISTEN) (Negative) Influenza A & B Note <Chelsea Kaye, [employer] - Last Filed: 06/02/22 11:57> Lab Results 06/02/22 06/02/22 06/02/22 Range/Units 12:21 12:21 12:21 WBC 9.4 (4.8-10.8) X10*3/uL RBC 4.80 (4.20-5.50) X10*6/uL Hgb 13.0 (12.0-16.0) g/dl Hct 40.7 (37.0-47.0) % MCV 84.8 (80.0-98.0) fL MCH 27.1 (27.0-33.0) pg MCHC 31.9 (31.0-35.0) g/dl RDW 13.3 (11.0-16.0) % Plt Count 281 (160-400) X10*3/uL MPV 10.1 (9.4-12.3) fL Immature Gran % (Auto) 0.5 H (0.0-0.4) % Neut % (Auto) 67.4 (45-73) % Lymph % (Auto) 23.2 (20-40) % [place] % (Auto) 6.9 (2-11) % Eos % (Auto) 1.3 (0-4) % Baso % (Auto) 0.7 (0-2) % Lymph # (Auto) 2.2 (1.2-4.9) X10*3/uL [place] # (Auto) 0.7 (0.1-1.2) X10*3/uL Eos # (Auto) 0.1 (0.0-0.4) X10*3/uL Baso # (Auto) 0.1 (0.0-0.2) X10*3/uL Abs Immat Gran (auto) 0.05 H (0.00-0.03) X10*3/uL Absolute Neuts (auto) 6.3 (2.0-8.3) x10*3/uL Absolute Nucleated RBC 0.000 (0.0-0.012) X10*3/uL Nucleated RBC % (auto) 0.0 (0.0-0.2) /100WBC Sodium 142 (135-145) mmol/L Potassium 4.2 (3.3-5.1) mmol/L Chloride 105 (96-108) mmol/L Carbon Dioxide 29 (22-29) mmol/L Anion Gap 12 (12-20) BUN 13 (9-16) mg/dL Creatinine 0.81 (0.5-1.4) mg/dL Estim Creat Clear Calc 101.5 Estimated GFR > 60 Random Glucose 131 H (60-115) mg/dL Calcium 9.4 (8.4-10.2) mg/dL Magnesium 2.0 (1.6-2.6) mg/dL Total Bilirubin 1.0 (0.0-1.0) mg/dL AST 23 (5-31) U/L ALT 22 (0-31) U/L Alkaline Phosphatase 117 (39-117) U/L Troponin I High Sens < 3.5 (<3.5-17.0) ng/L Total Protein 7.2 (6.5-8.0) g/dL Albumin 4.2 (3.5-5.0) g/dL Lipase 23 (8-78) U/L Urine Color Urine Appearance Urine pH (5.0-9.0) Ur Specific [place] (1.005-1.025) Urine Protein (Neg-Trace) mg/dL Urine Glucose (UA) (Negative) mg/dL Urine Ketones (Negative) mg/dL Urine Blood (Negative) Urine Nitrite (Negative) Ur Leukocyte Esterase (Negative) Urine RBC (0-2) /HPF Urine WBC (0-5) /HPF Ur Squamous Epith Cells (0-2) /HPF Urine Bacteria (None Seen) Hyaline Casts (0-2) /LPF COVID-19 ([place]) (Negative) COVID-19 Clin Com Influenza Type A (KRISTEN) (Negative) Influenza Type B (KRISTEN) (Negative) Influenza A & B Note 06/02/22 06/02/22 06/02/22 Range/Units 12:21 12:21 23:08 WBC (4.8-10.8) X10*3/uL RBC (4.20-5.50) X10*6/uL Hgb (12.0-16.0) g/dl Hct (37.0-47.0) % MCV (80.0-98.0) fL MCH (27.0-33.0) pg MCHC (31.0-35.0) g/dl RDW (11.0-16.0) % Plt Count (160-400) X10*3/uL MPV (9.4-12.3) fL Immature Gran % (Auto) (0.0-0.4) % Neut % (Auto) (45-73) % Lymph % (Auto) (20-40) % [place] % (Auto) (2-11) % Eos % (Auto) (0-4) % Baso % (Auto) (0-2) % Lymph # (Auto) (1.2-4.9) X10*3/uL [place] # (Auto) (0.1-1.2) X10*3/uL Eos # (Auto) (0.0-0.4) X10*3/uL Baso # (Auto) (0.0-0.2) X10*3/uL Abs Immat Gran (auto) (0.00-0.03) X10*3/uL Absolute Neuts (auto) (2.0-8.3) x10*3/uL Absolute Nucleated RBC (0.0-0.012) X10*3/uL Nucleated RBC % (auto) (0.0-0.2) /100WBC Sodium (135-145) mmol/L Potassium (3.3-5.1) mmol/L Chloride (96-108) mmol/L Carbon Dioxide (22-29) mmol/L Anion Gap (12-20) BUN (9-16) mg/dL Creatinine (0.5-1.4) mg/dL Estim Creat Clear Calc Estimated GFR Random Glucose (60-115) mg/dL Calcium (8.4-10.2) mg/dL Magnesium (1.6-2.6) mg/dL Total Bilirubin (0.0-1.0) mg/dL AST (5-31) U/L ALT (0-31) U/L Alkaline Phosphatase (39-117) U/L Troponin I High Sens < 3.5 (<3.5-17.0) ng/L Total Protein (6.5-8.0) g/dL Albumin (3.5-5.0) g/dL Lipase (8-78) U/L Urine Color Urine Appearance Urine pH (5.0-9.0) Ur Specific [place] (1.005-1.025) Urine Protein (Neg-Trace) mg/dL Urine Glucose (UA) (Negative) mg/dL Urine Ketones (Negative) mg/dL Urine Blood (Negative) Urine Nitrite (Negative) Ur Leukocyte Esterase (Negative) Urine RBC (0-2) /HPF Urine WBC (0-5) /HPF Ur Squamous Epith Cells (0-2) /HPF Urine Bacteria (None Seen) Hyaline Casts (0-2) /LPF COVID-19 ([place]) Negative (Negative) COVID-19 Clin Com See Note Influenza Type A ([facility]STEN) Negative (Negative) Influenza Type B (KRISTEN) Negative (Negative) Influenza A & B Note See Note 06/03/22 Range/Units 00:04 WBC (4.8-10.8) X10*3/uL RBC (4.20-5.50) X10*6/uL Hgb (12.0-16.0) g/dl Hct (37.0-47.0) % MCV (80.0-98.0) fL MCH (27.0-33.0) pg MCHC (31.0-35.0) g/dl RDW (11.0-16.0) % Plt Count (160-400) X10*3/uL MPV (9.4-12.3) fL Immature Gran % (Auto) (0.0-0.4) % Neut % (Auto) (45-73) % Lymph % (Auto) (20-40) % [place] % (Auto) (2-11) % Eos % (Auto) (0-4) % Baso % (Auto) (0-2) % Lymph # (Auto) (1.2-4.9) X10*3/uL [place] # (Auto) (0.1-1.2) X10*3/uL Eos # (Auto) (0.0-0.4) X10*3/uL Baso # (Auto) (0.0-0.2) X10*3/uL Abs Immat Gran (auto) (0.00-0.03) X10*3/uL Absolute Neuts (auto) (2.0-8.3) x10*3/uL Absolute Nucleated RBC (0.0-0.012) X10*3/uL Nucleated RBC % (auto) (0.0-0.2) /100WBC Sodium (135-145) mmol/L Potassium (3.3-5.1) mmol/L Chloride (96-108) mmol/L Carbon Dioxide (22-29) mmol/L Anion Gap (12-20) BUN (9-16) mg/dL Creatinine (0.5-1.4) mg/dL Estim Creat Clear Calc Estimated GFR Random Glucose (60-115) mg/dL Calcium (8.4-10.2) mg/dL Magnesium (1.6-2.6) mg/dL Total Bilirubin (0.0-1.0) mg/dL AST (5-31) U/L ALT (0-31) U/L Alkaline Phosphatase (39-117) U/L Troponin I High Sens (<3.5-17.0) ng/L Total Protein (6.5-8.0) g/dL Albumin (3.5-5.0) g/dL Lipase (8-78) U/L Urine Color Yellow Urine Appearance Cloudy Urine pH 6.0 (5.0-9.0) Ur Specific [place] 1.015 (1.005-1.025) Urine Protein Negative (Neg-Trace) mg/dL Urine Glucose (UA) Negative (Negative) mg/dL Urine Ketones Negative (Negative) mg/dL Urine Blood Negative (Negative) Urine Nitrite Negative (Negative) Ur Leukocyte Esterase Moderate (2+) H (Negative) Urine RBC 0-2 (0-2) /HPF Urine WBC 21-50 H (0-5) /HPF Ur Squamous Epith Cells 6-10 (0-2) /HPF Urine Bacteria Trace (None Seen) Hyaline Casts 0-2 (0-2) /LPF COVID-19 ([place]) (Negative) COVID-19 Clin Com Influenza Type A ([facility]STEN) (Negative) Influenza Type B (K[facility]STEN) (Negative) Influenza A & B Note <Agnes Keating MD - Last Filed: 06/03/22 01:44> Independent Interpretation I performed an independent interpretation of an: EKG <Agnes Keating MD - Last Filed: 06/03/22 01:44> Interpretation: Normal sinus rhythm, HR-64, no STEMI, ID/QRS/QTC are within normal limits. <Agnes Keating MD - Last Filed: 06/03/22 01:44> Discharge Plan Discharge Clinical Impression: Hypertension, Headache, Musculoskeletal chest pain <Chelsea Kaye CNP - Last Filed: 06/02/22 11:57> Patient Disposition: Home, Self-Care <Chelsea Kaye CNP - Last Filed: 06/02/22 11:57> Instructions: DASH Eating Plan (ED), Hypertension (ED), General Headache (ED), Chest Wall Pain (ED) <Chelsea Kaye CNP - Last Filed: 06/02/22 11:57> Additional Instructions: 1. Reanudar todos los medicamentos caseros seg?n lo prescrito. 2. Tylenol 1000 mg, por v?a oral, cada 6 horas seg?n sea necesario para controlar el dolor. No exceda los 4000 mg dentro de las 24 horas. 3. Es muy importante que asista a dimas armida con dimas proveedor de atenci?n primaria para marva reevaluaci?n y un control ambulatorio adicional de dimas presi?n arterial. Regrese a la madhav de emergencias por cualquier empeoramiento de los s?ntomas. 1. Resume all home medications as prescribed. 2. Tylenol 1000 mg, orally, every 6 hours as needed for pain control. Do not exceed 4000 mg within 24 hours. 3. It is very important that you keep your appointment with your primary care provider for re-evaluation and further outpatient management of your blood pressure. Return to the ER for any worsening of symptoms. <Chelsea Kaye, [employer] - Last Filed: 06/02/22 11:57> Prescriptions: No Action (DME) blood pressure monitor Kit See Rx Instructions .Route Qty: 1 0RF Rx Instructions: As directed (DME) lancets 28 gauge misc See Rx Instructions topical DIRECTED Qty: 100 0RF Rx Instructions: Test once daily (DME) blood-glucose meter [FreeStyle Lite Meter] Kit See Rx Instructions .Route Qty: 1 0RF Rx Instructions: As directed aspirin 81 mg tablet,delayed release (DR/EC) 81 mg PO DAILY Qty: 90 1RF meclizine 25 mg tablet 25 mg PO DAILY PRN (Reason: dizziness) 15 Days Qty: 15 2RF hydrochlorothiazide 25 mg tablet 25 mg PO DAILY Qty: 90 1RF budesonide-formoterol [Symbicort] 160-4.5 mcg/actuation HFA aerosol inhaler 2 puff inhalation BID 30 Days Qty: 1 6RF simvastatin 20 mg tablet 20 mg PO BEDTIME 30 Days Qty: 30 3RF carvedilol 3.125 mg tablet 3.125 mg PO BID 90 Days Qty: 180 1RF Rx Instructions: must administer with a meal/food zolpidem 10 mg tablet 10 mg PO BEDTIME PRN (Reason: insomnia) 90 Days Qty: 90 0RF pantoprazole [Protonix] 40 mg tablet,delayed release (DR/EC) 40 mg PO BID 30 Days Qty: 60 6RF (DME) FreeStyle Lite Strips Strip See Rx Instructions .ROUTE .COMPLEX Qty: 100 0RF Dose Instruction: USE TODOS [place] [facility] Rx Instructions: USE TODOS [place] famotidine 40 mg tablet 40 mg PO BEDTIME Qty: 30 6RF acetaminophen [Tylenol Extra Strength] 500 mg tablet 500 mg PO Q6H PRN (Reason: pain or fever) Qty: 20 0RF betamethasone, augmented 0.05 % lotion topical BID PRN calcipotriene 0.005 % solution topical alclometasone 0.05 % cream topical sumatriptan succinate 50 mg tablet 50 mg PO Q2-4H PRN (Reason: migraine headache) 30 Days Qty: 10 1RF Rx Instructions: do not exceed 4 doses per 24 hrs cholecalciferol (vitamin D3) 50 mcg (2,000 unit) capsule 50 mcg PO DAILY 90 Days Qty: 90 3RF loratadine [Claritin] 10 mg tablet 10 mg PO DAILY PRN (Reason: allergy symptoms) 90 Days Qty: 90 3RF albuterol sulfate 2.5 mg /3 mL (0.083 %) solution for nebulization 2.5 mg continuous nebulization QID PRN (Reason: shortness of breath or wheezing) (DME) RIGHT WRIST SPLINT (large) large See Rx Instructions .Route .MEDSUPPLY Qty: 1 0RF Rx Instructions: As directed meloxicam 15 mg tablet 15 mg PO DAILY Qty: 14 0RF albuterol sulfate 90 mcg/actuation HFA aerosol inhaler 2 puff PO QID PRN hydrocortisone 2.5 % cream topical BID sucralfate [Carafate] 100 mg/mL suspension 10 ml PO TID 30 Days Qty: 900 3RF dicyclomine 10 mg capsule 10 mg PO QIDACHS Qty: 120 3RF <Chelsea Kaye CNP - Last Filed: 06/02/22 11:57> Referrals: Name,MD Matt [Primary Care Provider] - <Chelsea Kaye CNP - Last Filed: 06/02/22 11:57> Print Language: Thai <Chelsea Kaye CNP - Last Filed: 06/02/22 11:57>
[2022-06-02 11:53] VITALS: BP 233/105; PULSE 74; RESP 18; TEMP 36.7; O2SAT 98; BMI 34.2
--- NOTE | 2022-06-02 11:53 | ECG_ITS ---
Test Reason : cp Blood Pressure : / mmHG Vent. Rate : 064 BPM Atrial Rate : 064 BPM P-R Int : 166 ms QRS Dur : 088 ms QT Int : 422 ms P-R-T Axes : 004 -12 -14 degrees QTc Int : 435 ms Normal sinus rhythm Moderate voltage criteria for LVH, may be normal variant ( R in aVL , [employer] product ) Nonspecific T wave abnormality Abnormal ECG When compared with ECG of 05-OCT-2021 13:59, T wave inversion now evident in Inferior leads Referred By: Chelsea Kaye Electronically Signed By:Niles Charlton
[2022-06-02 12:37] LABS: MANUAL DIFF FLAG NO
[2022-06-02 12:39] LABS: Basophils Absolute Auto 0.1 X10*3/uL (0.0-0.2); Basophils Percent Auto 0.7 % (0-2); Eosinophils Absolute Auto 0.1 X10*3/uL (0.0-0.4); Eosinophils Percent Auto 1.3 % (0-4); Hematocrit 40.7 % (37.0-47.0); Imm Gran Abs Auto 0.05 X10*3/uL (0.00-0.03); Imm Gran Pct Auto 0.5 % (0.0-0.4); Lymphocytes Absolute Auto 2.2 X10*3/uL (1.2-4.9); Lymphocytes Percent Auto 23.2 % (20-40); Mean Corpuscular HGB Conc 31.9 g/dl (31.0-35.0); Mean Corpuscular Hemoglobin 27.1 pg (27.0-33.0); Mean Corpuscular Volume 84.8 fL (80.0-98.0); Mean Platelet Volume 10.1 fL (9.4-12.3); Monocytes Absolute Auto 0.7 X10*3/uL (0.1-1.2); Monocytes Percent Auto 6.9 % (2-11); Neutrophils Absolute Auto 6.3 x10*3/uL (2.0-8.3); Neutrophils Percent Auto 67.4 % (45-73); Platelet Count 281 X10*3/uL (160-400); Red Cell Distribution Width 13.3 % (11.0-16.0); White Blood Count 9.4 X10*3/uL (4.8-10.8)
[2022-06-02 12:57] LABS: COVID-19 Test Negative (Negative); IDNOW Serial# 9DB6401D; IDNOW Serial# BCCEAD1C; Influenza A Negative (Negative); Influenza B2 Negative (Negative)
[2022-06-02 13:04] LABS: Alanine Aminotransferase 22 U/L (0-31); Albumin Level 4.2 g/dL (3.5-5.0); Alkaline Phosphatase 117 U/L (39-117); Anion Gap 12 (12-20); Aspartate Amino Transferase 23 U/L (5-31); Blood Urea Nitrogen 13 mg/dL (9-16); Calcium 9.4 mg/dL (8.4-10.2); Carbon Dioxide 29 mmol/L (22-29); Chloride 105 mmol/L (96-108); Creatinine Clr Calc Pharmacy 101.5; Estimated Glomerular Filt Rate > 60; Glucose Random 131 mg/dL (60-115); Lipase 23 U/L (8-78); Potassium 4.2 mmol/L (3.3-5.1); Sodium 142 mmol/L (135-145); Total Protein 7.2 g/dL (6.5-8.0)
[2022-06-02 13:07] LABS: Troponin-I High Sensitivity < 3.5 ng/L (<3.5-17.0)
[2022-06-02 20:24] VITALS: BP 199/98; PULSE 71; RESP 18; TEMP 36.5; O2SAT 98
[2022-06-02 22:45] VITALS: BP 190/87; PULSE 75; RESP 18; TEMP 37.4; O2SAT 97
[2022-06-02 23:09] VITALS: BP 227/106
[2022-06-02] MEDS: Acetaminophen 325 MG TABLET 975 MG PO (23:12)
[2022-06-02] MEDS: hydrALAZINE HCl 20 MG/ML VIAL 5 MG IVPUSH (23:13)
[2022-06-02 23:50] VITALS: BP 145/73; PULSE 67; RESP 15; O2SAT 98
[2022-06-03 00:16] LABS: Appearance Urine Cloudy; Color Urine Yellow; Glucose Urine UA Negative (Negative); Leukocyte Esterase Urine Moderate (2+) (Negative); Nitrite Urine Negative (Negative); Specific Gravity - Urine 1.015 (1.005-1.025); UMIC TRIGGER UACC YES; Urine Blood Negative (Negative); Urine Ketones Negative (Negative); Urine Protein Negative (Neg-Trace)
[2022-06-03 00:19] LABS: Bacteria Urine Trace (None Seen); Hyaline Casts Urine 0-2 /LPF (0-2); RBC Urine 0-2 /HPF (0-2); UACC Culture Trigger YES; WBC Urine 21-50 /HPF (0-5)
[2022-06-03 01:30] LABS: Troponin-I High Sensitivity < 3.5 ng/L (<3.5-17.0)
== END 2022-06-03 01:55 | disposition home or self-care (01) ==
PROVIDERS: Nurse Practitioner Family; Emergency Provider Student in an Organized Health Care Education/Training Program; PCP Internal Medicine Geriatric Medicine
DX: R51.9 Headache, unspecified (principal); I10 Essential (primary) hypertension; R07.89 Other chest pain; M79.10 Myalgia, unspecified site; Z20.822 Contact with and (suspected) exposure to COVID-19; Z79.899 Other long term (current) drug therapy
CPT/HCPCS: 36415; 70450; 71046; 71250; 80053; 81001; 83690; 83735; 84484; 85025; 87086; 87147; 87502; 87635; 93005; 96374; 99284

== ENCOUNTER → 2022-07-08 13:51 | Outpatient (BNVA) | payer MEDICAID, SELFPAY | PROVIDERS: PCP Internal Medicine Geriatric Medicine; Referring Provider Internal Medicine Geriatric Medicine; Visit Provider Internal Medicine Cardiovascular Disease | DX: I25.10 Atherosclerotic heart disease of native coronary artery without angina pectoris (principal) | CPT/HCPCS: 99212 ==

== ENCOUNTER → 2022-07-25 11:34 | Outpatient (BNVA) | payer MEDICAID, SELFPAY | PROVIDERS: PCP Internal Medicine Geriatric Medicine; Visit Provider Nurse Practitioner Family | DX: M79.7 Fibromyalgia (principal); L40.50 Arthropathic psoriasis, unspecified; M65.4 Radial styloid tenosynovitis [de Quervain]; Z79.899 Other long term (current) drug therapy | CPT/HCPCS: 99212 ==

== ENCOUNTER → 2022-07-29 13:58 | Outpatient (BNVA) | payer MEDICAID, SELFPAY | PROVIDERS: PCP Internal Medicine Geriatric Medicine; Visit Provider Internal Medicine Pulmonary Disease | DX: R09.82 Postnasal drip (principal); J45.40 Moderate persistent asthma, uncomplicated | CPT/HCPCS: 99212 ==

== ENCOUNTER 2022-08-01 13:30 | Outpatient (RCR) | payer MEDICAID, SELFPAY ==
--- NOTE | 2022-06-27 15:28 | MHC.OT.EP ---
[address] [phone] Occupational Therapy Plan of Care Date of Evaluation: 06/27/22 Diagnosis: Right De Quervain's Tenosynovitis and Carpal Tunnel Syndrome Pain Location: 6/10 resting pain in palm of right hand and right radial wrist Worsens with daily use Tender to touch CTR scar and to palpate right radial wrist Pain Score: 6 Pain Scale Used: Numeric (0 - 10) Aggravating Factors: Heavy lifting, movement of hand/wrist Alleviating Factors: Heat pack and cold packs Tylenol and brace do not seem to help Assessment: 52 yo right hand dominant female presents w/ right palm pain (s/p CTR 02/06/22) and right radial wrist pain after prolonged time w/ no known injury. CTR scar is well healed and soft, but does have areas of tenderness and scar adhesions, w/ difficulty moving through tendon glides due to discomfort. Assessment of right radial wrist pain is consistent w/ De Quervain's and she has been wearing orthosis occasionally, but not sure if it is thumb spica or standard wrist orthosis. In general, pt has several comorbidities w/ DM, HTN, fibromyalgia and arthritis, but would benefit from increasing movement and participating in hand therapy sessions for optimal functional gains and to minimize pain. 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 w/ light FMC tasks such as buttons, jewelry, tying laces Pt to demo good progression through wrist strengthening exercises w/ minimal discomfort Right gross grasp >30lb Pt to report and demo good carry over w/ joint protection techniques for everyday bimanual tasks (laundry, cooking, etc) Treatment Plan: Therapeutic Exercise Therapeutic Activity Home Exercise Program Splinting Patient Education Desensitization/Sensory Re-ed Edema Control ADL Training Ultrasound Paraffin Fluidotherapy MHP Cold Packs Joint Mobilization Soft Tissue Mobilization Kinesiotaping Electronically Signed By: Lila Mata OTR/Sharon CHT Please Sign and return to therapist. Thank you once again for your referral.
--- NOTE | 2022-08-01 14:09 | MHC.OT.DC ---
[address] [phone] F: [phone] Occupational Therapy Discharge Note Provider: Dr Gisela Salguero Diagnosis: Right De Quervain's Tenosynovitis and Carpal Tunnel Syndrome Date of Surgery: 02/06/22 Date of Evaluation: 06/27/22 Date of Discharge: 08/01/22 Treatments to Date: 5 Discharge Status: Achieved Goals Improved Function Independent with HEP Discharge Summary: Farrah was referred to OT for right hand and wrist pain s/p carpal tunnel release and onset of De Quervains tendinitis. She has progressed well with good range, strength and sensation. She has good follow through w/ protection and progression of strengthening. All goals met, good strength and overall functional use of right hand. She has has some indication of trigger finger on left as well at left carpal tunnel syndrome, and educated on simple conservative management. Electronically Signed By: YANETH Carballo/Sharon CHT Reviewed/agree with student documentation: N/A Therapist: Please Sign and return to therapist, thank you for your referral.
== END 2022-08-01 14:12 | disposition home or self-care (01) ==
LOC: HO.OT 13:30
PROVIDERS: PCP Internal Medicine Geriatric Medicine; Visit Provider Orthopaedic Surgery
DX: M65.4 Radial styloid tenosynovitis [de Quervain] (principal); G56.01 Carpal tunnel syndrome, right upper limb
CPT/HCPCS: 97035; 97110; 97140; 97165

== ENCOUNTER → 2022-09-03 16:00 | Outpatient (BNVA) | payer MEDICAID, SELFPAY | PROVIDERS: PCP Internal Medicine Geriatric Medicine; Visit Provider Nurse Practitioner Family | DX: M79.7 Fibromyalgia (principal); L40.9 Psoriasis, unspecified | CPT/HCPCS: 99212 ==

== ENCOUNTER 2022-09-10 13:55 | Outpatient (REF) | payer MEDICAID, SELFPAY ==
[2022-09-11 06:29] LABS: CT PCR NOT DETECTED (Not Detect.); NG PCR NOT DETECTED (Not Detect.)
[2022-09-11 09:17] LABS: BV Int Neg Control Negative (Negative); BV Int Pos Control Positive (Positive)
== END 2022-09-10 13:56 | disposition home or self-care (01) ==
LOC: HO.LAB 13:55
PROVIDERS: PCP Internal Medicine Geriatric Medicine; Visit Provider Advanced Practice Midwife
DX: N89.8 Other specified noninflammatory disorders of vagina (principal); N94.10 Unspecified dyspareunia; Z20.2 Contact with and (suspected) exposure to infections with a predominantly sexual mode of transmission
CPT/HCPCS: 0353U; 87480; 87510; 87660

== ENCOUNTER 2022-09-10 14:36 | Outpatient (REF) | payer MEDICAID, SELFPAY | END 2022-09-10 14:37 | disposition home or self-care (01) | LOC: HO.LNP 14:36 | PROVIDERS: Visit Provider Advanced Practice Midwife | DX: Z13.89 Encounter for screening for other disorder (principal) ==

== ENCOUNTER → 2022-10-30 15:46 | Outpatient (BNVA) | payer MEDICAID, SELFPAY | PROVIDERS: PCP Internal Medicine Geriatric Medicine; Visit Provider Nurse Practitioner Family | DX: M79.7 Fibromyalgia (principal); L40.9 Psoriasis, unspecified; L40.50 Arthropathic psoriasis, unspecified | CPT/HCPCS: 99212 ==

== ENCOUNTER 2023-01-05 14:07 | Outpatient (REF) | payer MEDICAID, SELFPAY ==
[2023-01-05 16:38] LABS: Anion Gap 11 (12-20); Blood Urea Nitrogen 15 mg/dL (9-16); Calcium 9.9 mg/dL (8.4-10.2); Carbon Dioxide 30 mmol/L (22-29); Chloride 107 mmol/L (96-108); Estimated Glomerular Filt Rate > 60; Glucose Random 138 mg/dL (60-115); Potassium 4.2 mmol/L (3.3-5.1); Sodium 144 mmol/L (135-145)
== END 2023-01-05 14:08 | disposition home or self-care (01) ==
LOC: HO.HHCL 14:07
PROVIDERS: Visit Provider Internal Medicine Geriatric Medicine
DX: E11.9 Type 2 diabetes mellitus without complications (principal); J02.9 Acute pharyngitis, unspecified; R03.0 Elevated blood-pressure reading, without diagnosis of hypertension; B35.3 Tinea pedis; Z79.4 Long term (current) use of insulin
CPT/HCPCS: 36415; 80048

== ENCOUNTER 2023-03-05 12:50 | Outpatient (AMB) | payer MEDICAID, SELFPAY ==
--- NOTE | 2023-03-05 12:53 | A.OFFVIS_ITS ---
Intake Vital Signs 03/05/23 13:00 Height 5 ft 3 in Weight 227 lb 1.218 oz BMI 40.2 BP 192/88 H Blood Pressure Location Lt brachial Position Sitting Pulse 65 Intake Visit Reasons: pt req follow up Intake Note: Farrah presents in the office as a follow up. CC: She states that she is having the problems in her stomach with acid and she gets nausea. constipation and diarrhea. 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 Cocoa Mill Operator Name: Chalino [id number] Allergies acetaminophen [From Vicodin] Allergy (Intermediate, Verified 03/05/23 13:02) Palpitations, Itch amoxicillin [Prevpac] Allergy (Intermediate, Verified 03/05/23 13:02) itchy throat hydrocodone [From Vicodin] Allergy (Intermediate, Verified 03/05/23 13:02) Palpitations, Itch ibuprofen [From Motrin] Allergy (Intermediate, Verified 03/05/23 13:02) UPSET STOMACH, abdominal pain lansoprazole [Prevpac] Allergy (Intermediate, Verified 03/05/23 13:02) itchy throat morphine [MORPHINE] Allergy (Intermediate, Verified 03/05/23 13:02) PALPATATIONS, PANIC ATTACKS, nauseas,panic attack, heart palpitations omeprazole [From PRILOSEC] Allergy (Intermediate, Verified 03/05/23 13:02) ITCHY THROAT pravastatin [PRAVASTATIN] Allergy (Intermediate, Verified 03/05/23 13:02) UNKNOWN rosuvastatin [From CRESTOR] Allergy (Intermediate, Verified 03/05/23 13:02) UNKNOWN terbinafine [TERBINAFINE] Allergy (Intermediate, Verified 03/05/23 13:02) UNKNOWN atorvastatin [From LIPITOR] Allergy (Unknown, Verified 03/05/23 13:02) UNKNOWN clarithromycin [From BIAXIN] Adverse Reaction (Intermediate, Verified 03/05/23 1 3:02) ABD PAIN, DIARRHEA gabapentin [GABAPENTIN] Adverse Reaction (Intermediate, Verified 03/05/23 13:02) UNKNOWN, nausea, dizziness levofloxacin [LEVOFLOXACIN] Adverse Reaction (Intermediate, Verified 03/05/23 13:02) PALPITATIONS tylenol with codeine Allergy (Unknown, Uncoded 03/05/23 13:02) fast heart rate HPI pt req follow up HPI Details AAssessment & Plan (1) HURD (nonalcoholic steatohepatitis): ?Comment: Discovered on her diagnosis list it appears that in the past she has been worked up and was negative for autoimmune causes, negative for hepatitis a B or C, LFTs 1st began elevated 10/2019 with AST/ALT 47/42 and a normal alk-phos and bili CT abdomen and pelvis 06/2018 IMPRESSION: 1. No bowel obstruction, free intraperitoneal air or abscess is seen. No diverticulitis is seen. The vermiform appendix is not seen with certainty. 2. No urinary calculus or obstructive uropathy is seen. 3. There is hepatic steatosis. 4. There is a small fat- containing umbilical hernia. 5. There are marked thoracic degenerative changes. Laboratory Tests ?11/29/21 ?14:06 Total Bilirubin 1.0 AST 29 ALT [address] ABD AND PELVIS? 10/05/21? FINDINGS: LUNG BASES: The visualized lung bases are unremarkable.? LIVER, GALLBLADDER, AND BILIARY TREE: The liver is normal in size, shape, and attenuation. No focal hepatic lesion or biliary ductal dilatation is present. Gallbladder unremarkable.? PANCREAS: Unremarkable.? SPLEEN: Unremarkable.? ADRENAL GLANDS: Unremarkable.? KIDNEYS AND URETERS: The kidneys are normal in size, shape, and attenuation. No hydronephrosis, hydroureter, or calculi seen. There is a stable 1.0 cm cyst in the right kidney. No perinephric stranding. ? BLADDER: Unremarkable.? GASTROINTESTINAL TRACT: The small and large bowel are unremarkable. The appendix is unremarkable.? ABDOMINAL WALL: No significant hernia is appreciated.? LYMPH NODES: Normal. VASCULAR: Unremarkable. PELVIC VISCERA: Unremarkable.? OSSEOUS STRUCTURES: Unremarkable.? CT/CT abdomen pelvis w con IMPRESSION: No acute findings within the abdomen or pelvis. ?Code(s): K75.81 - Nonalcoholic steatohepatitis (HURD) ?Plan: Bulgarian # [id number], Jeevan? #[id number] Reviewed labs, appears her HURD has receded with wt loss. She tells me she has been having postprandial urgency of stool.? It is not diarrhea it is soft but it is accompanied by cramping and is bothersome to her.? I will start on a trial of dicyclomine 10 mg 4 times a day. She continues on her pantoprazole in the morning and famotidine the evening with good control of her heartburn. She complains that she suffers vertigo and it has been worsening recently.? She is treated in the past with meclizine with only mild relief.? In the past she was treated with Luz Maria maneuvers by Physical therapy at [facility] so I will refer her to them since she seems to be suffering.? She describes her symptoms as classic room spinning so I do not have any concerns for near syncope. ROV 4 weeks. (2) Right upper quadrant abdominal pain: ?Comment: Musculoskeletal overlay, suggest referral to pain management an MRI to i kenrickate, I have not been able to find a GI reason for her pain and I suspect it is radicular pain from thoracic compression as x-ray shows she has thoracic spondylosis. ?Code(s): R10.11 - Right upper quadrant pain (3) Irritable bowel syndrome with diarrh ea: ?Code(s): K58.0 - Irritable bowel syndrome with diarrhea (4) GERD (gastroesophageal reflux diseas e): ?Code(s): K21.9 - Gastro-esophageal reflux disease without esophagitis ?Qualifiers: ?Esophagitis presence:?without esophagitis? Qualified Code(s):?K21.9 - Gastro-esophageal reflux disease without esophagitis (5) H. pylori infection: ?Comment: ?H. pylori infection TREATMENT RESISTANT ? Notes: She has failed all rescue regimens I can think of, we will manage her symptoms as well as we can and consider if new treatment options develop. ?Code(s): A04.8 - Other specified bacterial intestinal infections (6) Vertigo: ?Code(s): R42 - Dizziness and giddiness ? ? ? Orders: Referrals Physical Medicine and Rehabilitation Referral ? R42 - Dizziness an d giddiness ? Medications: Changed From dicyclomine 10 mg? PO BID 10 c aps 0RF ? ? To dicyclomine 10 mg? PO QIDACHS 120 caps 3RF ? ? TODAYS VISIT Bulgarian # Kay live She is not taking the pantoprazole and famotidine, she is only taking omeprazole. She is having epigastric pain and a lto of gas, bloating and nausea. This has been for a few months. She has a new medicine, Trulicity in October, but she does not think this is the cause. She is also having acid brash, throat clearing, and globus sensation. She is having CIC alt wtih diarrhea. She is trying to eat prunes and fiber w/o success and CIC is the more frequent problem. No meds for CIC. She has lost a little weight, likely r/t Trulicity. She admits it takes my hunger away. ROV 3 weeks. [facility] Medical History (Updated 04/01/23 @ 11:00 by PRISCILA Chan) Irritable bowel syndrome with diarrhea Allergic rhinitis Lumbar degenerative disc disease Breast pain during Carpal tunnel syndrome Arthritis Morbid obesity with BMI of 40.0-44.9, adult Insomnia Diabetes mellitus Benign essential hypertension Polyarthralgia Fibromyalgia Mixed hyperlipidemia Candidiasis of mouth and esophagus Thoracic spondylosis Surgical History Hx of colonoscopy History of esophagogastroduodenoscopy (EGD) History of dermoid cyst excision History of excision of lamina of cervical vertebra for decompression of spinal cord H/O hemorrhoidectomy History of appendectomy Family History Father NIDDY (non-insulin dependent diabetes mellitus in young) Cardiovascular disease Obesity Cancer of unknown origin Colon cancer Mother CAD (coronary artery disease) NIDDY (non-insulin dependent diabetes mellitus in young) Brother Schizophrenia Degenerative disc disease H/O lymph node cancer Sister Breast cancer Colon cancer Paternal Grandmother Ovarian cancer, Onset Age: 45 Daughter Fibromyalgia Hypertension Cancer of unknown origin Other Mental health problem Social History Household Members: None Housing: Apartment Alcohol intake: never Patient Tobacco Use Status: Never used Tobacco e-Cigarette/Vaping Use: Never Used Second Hand Smoke Exposure: No service: No Current occupational status: disabled 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 Sexual orientation: Straight/Heterosexual Gender identity: Female Cognitive needs: No Hearing needs: Yes Vision needs: Yes Female Reproductive History Menstrual Age of Menarche: 11 Review of Systems Const Denies fatigue, Denies fever(s), Denies night sweats, Reports poor appetite and Reports weight loss ENT Reports Normal hearing present, Denies dental pain, Denies dysphagia, Denies hearing loss, Denies mouth pain, Denies odynophagia, Denies throat swelling, Denies tongue swelling and Reports other (Dentition adequate) Card Reports no additional complaints Resp Reports no additional complaints GI Reports abdominal pain, Denies melena, Reports bloating, Denies hematochezia, Reports constipation, Denies GI cramping, Denies dysphagia, Reports excessive flatus, Reports early satiety, Reports heartburn, Reports diarrhea, Reports nausea, Denies odynophagia, Denies vomiting and Denies hematemesis Skin/Breast Denies pruritus, Denies lesions, Denies rash and Denies jaundice Neuro Reports Normal hearing present and Denies Abnormal speech present Endo Denies fatigue Aller/Immun Denies throat swelling and Denies tongue swelling Physical Exam Vital Signs: Last Vital Signs Pulse 65 03/05/23 13:00 BP 192/88 H 03/05/23 13:00 BMI result Body Mass Index 40.2 Const General: cooperative, no acute distress, well developed and well groomed Nutritional Appearance: well nourished and obese morbidly obese Orientation/consciousness: oriented to person, oriented to place and oriented to time Limitations: language barrier HEENT Head: Yes normocephalic and Yes atraumatic Eyes General: appearance normal, both eyes and all related structures Pupils: Equal, round and reactive pupils present Neck Neck: Yes normal visual inspection and Yes no lymphadenopathy Thyroid: Thyroid normal Resp Effort & Inspection: normal respiratory effort and able to speak in complete sentences Auscultation: clear to auscultation bilaterally Cardio Rate: regular rate Rhythm: regular rhythm Heart sounds: Normal, physiologic split S2 sound present Peripheral pulses: radial pulses present and posterior tibial pulses present GI Inspection: No distended, Yes Abdominal panniculus present and Yes obesity Palpation (GI): Soft to palpation, nontender, no guarding, not rigid and No hepatosplenomegaly present Percussion: Yes normal to percussion Auscultation: normal bowel sounds Rectal Exam - Female: deferred Skin General skin exam: no rashes or lesions noted, turgor normal, skin not dry, no jaundice, No spider nevi and no striae Rashes: no rashes Nails: normal Neuro General: oriented to person, oriented to place and oriented to time Cranial nerves: Yes Equal, round and reactive pupils present and Yes Normal hearing present Speech: No Abnormal speech present Extrem General: Yes normal to inspection, No clubbing, No cyanosis and No edema Psych Appearance: grossly normal and well kempt Mental Status: mental status grossly normal Speech and movement: Normal speech and movement present Affect: normal affect Attitude: cooperative Thought process: Normal thought process present and not confabulating Thought content: Normal thought content present Insight: Limited insight present (Psych) Judgement: Limited judgement present (Psych) Assessment & Plan Assessment & Plan (1) Gastroparesis: Comment: she has been unable to tolerate Reglan due to dizziness so her only real options to consider gastric pacemaker going forward if her symptoms become severe. Aeb Code(s): K31.84 - Gastroparesis Plan: Bulgarian # Kay live NewSpani # Kay live She is not taking the pantoprazole and famotidine, she is only taking omeprazole. She is having epigastric pain and a lto of gas, bloating and nausea. This has been for a few months. She has a new medicine, Trulicity in October, but she does not think this is the cause. She is also having acid brash, throat clearing, and globus sensation. She is having CIC alt with diarrhea. She is trying to eat prunes and fiber w/o success and CIC is the more frequent problem. No meds for CIC. She has lost a little weight, likely r/t Trulicity. She admits it takes my hunger away. This might not be the right medication for a patient with gastroparesis who is failed Reglan, but we will try putting her back on her pantoprazole and famotidine and reinstating her senna for constipation. ROV 3 weeks. (2) Right upper quadrant abdominal pain: Comment: Musculoskeletal overlay, suggest referral to pain management an MRI to investigate, I have not been able to find a GI reason for her pain and I suspect it is radicular pain from thoracic compression as x-ray shows she has thoracic spondylosis. Code(s): R10.11 - Right upper quadrant pain (3) Irritable bowel syndrome with diarrhea: Code(s): K58.0 - Irritable bowel syndrome with diarrhea (4) H. pylori infection: Comment: H. pylori infection TREATMENT RESISTANT Notes: She has failed all rescue regimens I can think of, we will manage her symptoms as well as we can and consider if new treatment options develop. Code(s): A04.8 - Other specified bacterial intestinal infections (5) Constipation: Code(s): K59.00 - Constipation, unspecified (6) GERD (gastroesophageal reflux disease): Code(s): K21.9 - Gastro-esophageal reflux disease without esophagitis Qualifiers: Esophagitis presence: without esophagitis Qualified Code(s): K21.9 - Gastro-esophageal reflux disease without esophagitis Orders: Orders Comprehensive Met. Panel 03/05/23 K59.00 - Constipation, unspecified, R10.11 - Right upper quadrant pain TSH reflex Free T4 03/05/23 K59.00 - Constipation, unspecified, R10.11 - Right upper quadrant pain Medications: New sennosides (Senna Laxative) 17.2 mg (2 x 8.6 mg) PO BEDTIME 60 tabs 6RF K59.00 - Constipation, unspecified famotidine (Pepcid) 40 mg PO BEDTIME 30 tabs 6RF famotidine (Pepcid) 40 mg PO BEDTIME 30 tabs 6RF Refilled pantoprazole (Protonix) 40 mg PO BID 60 tabs 6RF 30 days K21.9 - Gastro- esophageal reflux disease without esophagitis, E66.01 - Morbid (severe) obesity due to excess calories, Z68.41 - Body mass index [BMI] 40.0-44.9, adult pantoprazole (Protonix) 40 mg PO BID 60 tabs 6RF 30 days K21.9 - Gastro- esophageal reflux disease without esophagitis, E66.01 - Morbid (severe) obesity due to excess calories, Z68.41 - Body mass index [BMI] 40.0-44.9, adult Discontinued dicyclomine Discontinued Reason: Doctor's Order 10 mg PO QIDACHS 120 caps 3RF Coding Level of Care Code Est Pt Level 4 (32175) Diagnoses Gastroparesis K31.84 Right upper quadrant abdominal pain R10.11 Irritable bowel syndrome with diarrhea K58.0 H. pylori infection A04.8 Constipation K59.00 Gastroesophageal reflux disease without esophagitis K21.9 Esophagitis presence: without esophagitis
[2023-03-05 13:00] VITALS: BP 192/88; PULSE 65; BMI 40.2
== END 2023-03-05 13:35 | disposition home or self-care (01) ==
PROVIDERS: PCP Internal Medicine Geriatric Medicine; Visit Provider Nurse Practitioner
DX: K31.84 Gastroparesis (principal); R10.11 Right upper quadrant pain; K58.0 Irritable bowel syndrome with diarrhea; A04.8 Other specified bacterial intestinal infections; K59.00 Constipation, unspecified; K21.9 Gastro-esophageal reflux disease without esophagitis
CPT/HCPCS: 99214

== ENCOUNTER 2023-03-05 12:50 | Outpatient (REF) | payer MEDICAID, SELFPAY ==
[2023-03-05 14:03] LABS: MANUAL DIFF FLAG NO
[2023-03-05 15:15] LABS: Basophils Absolute Auto 0.1 X10*3/uL (0.0-0.2); Basophils Percent Auto 0.6 % (0-2); Eosinophils Absolute Auto 0.1 X10*3/uL (0.0-0.4); Eosinophils Percent Auto 1.4 % (0-4); Hematocrit 39.4 % (37.0-47.0); Hemoglobin 12.6 g/dl (12.0-16.0); Imm Gran Abs Auto 0.03 X10*3/uL (0.00-0.03); Imm Gran Pct Auto 0.4 % (0.0-0.4); Lymphocytes Absolute Auto 2.5 X10*3/uL (1.2-4.9); Lymphocytes Percent Auto 30.7 % (20-40); Mean Corpuscular Hemoglobin 27.6 pg (27.0-33.0); Mean Corpuscular Volume 86.2 fL (80.0-98.0); Mean Platelet Volume 10.2 fL (9.4-12.3); Monocytes Absolute Auto 0.5 X10*3/uL (0.1-1.2); Monocytes Percent Auto 6.6 % (2-11); Neutrophils Absolute Auto 4.8 x10*3/uL (2.0-8.3); Neutrophils Percent Auto 60.3 % (45-73); Platelet Count 299 X10*3/uL (160-400); Red Blood Count 4.57 X10*6/uL (4.20-5.50); Red Cell Distribution Width 13.7 % (11.0-16.0)
[2023-03-05 15:50] LABS: Alanine Aminotransferase 20 U/L (0-31); Albumin Level 4.1 g/dL (3.5-5.0); Alkaline Phosphatase 121 U/L (39-117); Anion Gap 10 (12-20); Aspartate Amino Transferase 22 U/L (5-31); Bilirubin Total 0.8 mg/dL (0.0-1.0); Blood Urea Nitrogen 9 mg/dL (9-16); C Reactive Protein 0.63 mg/dL (< or = 0.50); Calcium 9.4 mg/dL (8.4-10.2); Carbon Dioxide 26 mmol/L (22-29); Chloride 109 mmol/L (96-108); Estimated Glomerular Filt Rate > 60; Glucose Random 108 mg/dL (60-115); Potassium 4.2 mmol/L (3.3-5.1); Sodium 141 mmol/L (135-145); Total Protein 7.3 g/dL (6.5-8.0)
[2023-03-05 15:54] LABS: Erythrocyte Sedimentation Rate 19 MM/HR (0-20)
[2023-03-05 16:06] LABS: TSH reflex Free T4 2.85 uIU/mL (0.32-4.0)
== END 2023-03-05 12:51 | disposition home or self-care (01) ==
LOC: HO.LAB 12:50
PROVIDERS: Nurse Practitioner Family; PCP Internal Medicine Geriatric Medicine; Visit Provider Nurse Practitioner
DX: K75.81 Nonalcoholic steatohepatitis (NASH) (principal); K21.9 Gastro-esophageal reflux disease without esophagitis; K31.84 Gastroparesis; K59.00 Constipation, unspecified; R10.11 Right upper quadrant pain; K58.0 Irritable bowel syndrome with diarrhea; L40.50 Arthropathic psoriasis, unspecified; A04.8 Other specified bacterial intestinal infections; R42 Dizziness and giddiness; E66.01 Morbid (severe) obesity due to excess calories; Z68.41 Body mass index [BMI] 40.0-44.9, adult
CPT/HCPCS: 36415; 80053; 84443; 85025; 85652; 86140; 99212

== ENCOUNTER 2023-04-17 14:18 | Outpatient (AMB) | payer MEDICAID, SELFPAY ==
--- NOTE | 2023-04-17 14:28 | A.OFFVIS_ITS ---
Intake Vital Signs 04/17/23 14:30 Height 5 ft 3 in Weight 231 lb 0.711 oz BMI 40.9 BP 149/73 H Blood Pressure Location Lt brachial Position Sitting Pulse 67 Intake Visit Reasons: 3 week follow up Allergies acetaminophen [From Vicodin] Allergy (Intermediate, Verified 04/17/23 14:34) Palpitations, Itch amoxicillin [Prevpac] Allergy (Intermediate, Verified 04/17/23 14:34) itchy throat hydrocodone [From Vicodin] Allergy (Intermediate, Verified 04/17/23 14:34) Palpitations, Itch ibuprofen [From Motrin] Allergy (Intermediate, Verified 04/17/23 14:34) UPSET STOMACH, abdominal pain lansoprazole [Prevpac] Allergy (Intermediate, Verified 04/17/23 14:34) itchy throat morphine [MORPHINE] Allergy (Intermediate, Verified 04/17/23 14:34) PALPATATIONS, PANIC ATTACKS, nauseas,panic attack, heart palpitations omeprazole [From PRILOSEC] Allergy (Intermediate, Verified 04/17/23 14:34) ITCHY THROAT pravastatin [PRAVASTATIN] Allergy (Intermediate, Verified 04/17/23 14:34) UNKNOWN rosuvastatin [From CRESTOR] Allergy (Intermediate, Verified 04/17/23 14:34) UNKNOWN terbinafine [TERBINAFINE] Allergy (Intermediate, Verified 04/17/23 14:34) UNKNOWN atorvastatin [From LIPITOR] Allergy (Unknown, Verified 04/17/23 14:34) UNKNOWN clarithromycin [From BIAXIN] Adverse Reaction (Intermediate, Verified 04/17/23 14:34) ABD PAIN, DIARRHEA gabapentin [GABAPENTIN] Adverse Reaction (Intermediate, Verified 04/17/23 14:34) UNKNOWN, nausea, dizziness levofloxacin [LEVOFLOXACIN] Adverse Reaction (Intermediate, Verified 04/17/23 14:34) PALPITATIONS tylenol with codeine Allergy (Unknown, Uncoded 03/05/23 13:02) fast heart rate HPI 3 week follow up HPI Details Assessment & Plan (1) Gastroparesis: Comment: she has been unable to tolerate Reglan due to dizziness so her only real options to consider gastric pacemaker going forward if her symptoms become severe. Aeb Code(s): K31.84 - Gastroparesis Plan: [place] # Kay live NewSpanish # Kay live She is not taking the pantoprazole and famotidine, she is only taking omeprazole. She is having epigastric pain and a lto of gas, bloating and nausea. This has been for a few months. She has a new medicine, Trulicity in October, but she does not think this is the cause. She is also having acid brash, throat clearing, and globus sensation. She is having CIC alt with diarrhea. She is trying to eat prunes and fiber w/o success and CIC is the more frequent problem. No meds for CIC. She has lost a little weight, likely r/t Trulicity. She admits it takes my hunger away. This might not be the right medication for a patient with gastroparesis who is failed Reglan, but we will try putting her back on her pantoprazole and famotidine and reinstating her senna for constipation. ROV 3 weeks. (2) Right upper quadrant abdominal pain: Comment: Musculoskeletal overlay, suggest referral to pain management an MRI to investigate, I have not been able to find a GI reason for her pain and I suspect it is radicular pain from thoracic compression as x-ray shows she has thoracic spondylosis. Code(s): R10.11 - Right upper quadrant pain (3) Irritable bowel syndrome with diarrh ea: Code(s): K58.0 - Irritable bowel syndrome with diarrhea (4) H. pylori infection: Comment: H. pylori infection TREATMENT RESISTANT Notes: She has failed all rescue regimens I can think of, we will manage her symptoms as well as we can and consider if new treatment options develop. Code(s): A04.8 - Other specified bacterial intestinal infections (5) Constipation: Code(s): K59.00 - Constipation, unspecified (6) GERD (gastroesophageal reflux diseas e): Code(s): K21.9 - Gastro-esophageal reflux disease without esophagitis Qualifiers: Esophagitis presence: without esophagitis Qualified Code(s): K21.9 - Gastro-esophageal reflux disease without esophagitis Orders: Orders Comprehensive Met. Panel 03/05/23 K59.00 - Constipat ion, unspecified, R10.11 - Right upp er quadrant pain TSH reflex Free T4 03/05/23 K59.00 - Constipat ion, unspecified, R10.11 - Right upp er quadrant pain Medications: New sennosides (Senna Laxative) 17.2 mg (2 x 8.6 m g) PO BEDTIME 60 t abs 6RF K59.00 - Constipat ion, unspecified famotidine (Pepcid ) 40 mg PO BEDTIME 3 0 tabs 6RF famotidine (Pepcid ) 40 mg PO BEDTIME 3 0 tabs 6RF Refilled pantoprazole (Prot casandra) 40 mg PO BID 60 ta bs 6RF 30 days K21.9 - Gastro-eso phageal reflux dis ease without esoph agitis, E66.01 - M orbid (severe) obe sity due to excess calories, Z68.41 - Body mass index [BMI] 40.0-44.9, a dult pantoprazole (Prot casandra) 40 mg PO BID 60 ta bs 6RF 30 days K21.9 - Gastro-eso phageal reflux dis ease without esoph agitis, E66.01 - M orbid (severe) obe sity due to excess calories, Z68.41 - Body mass index [BMI] 40.0-44.9, a dult Discontinued dicyclomine Dis continued Reason: Doctor's Order 10 mg PO QIDACHS 120 caps 3RF Labs: Laboratory Tests 03/05/23 14:02 Estimated GFR > 60 Total Bilirubin 0.8 AST 22 ALT 20 Alkaline Phosphata se 121 H C-Reactive Protein 0.63 H TSH 2.85 TODAYS VISIT [place] # Patricia LIve She is no better with changing the medications. Again, given the triple problem of untreatable gastroparesis, [place] GERD, and treatment resistant HP she rally is a poor candidate for Trulicity. Her PCP is Dr. Wu and she has an appt coming up. I will try contacting Dr. Wu about this. I really do not think there is anything I can do to counteract the symptoms in her particular situation because she has so many factors that may contraindicate further delaying her gastric emptying. Id her bowels tend to go between constipation diarrhea but she found the senna helpful in keeping the moving. Return office visit in about 5 weeks after she has seen Dr. Wu the [facility] Medical History Irritable bowel syndrome with diarrhea Allergic rhinitis Lumbar degenerative disc disease Breast pain during Carpal tunnel syndrome Arthritis Morbid obesity with BMI of 40.0-44.9, adult Insomnia Diabetes mellitus Benign essential hypertension Polyarthralgia Fibromyalgia Mixed hyperlipidemia Candidiasis of mouth and esophagus Thoracic spondylosis Surgical History Hx of colonoscopy History of esophagogastroduodenoscopy (EGD) History of dermoid cyst excision History of excision of lamina of cervical vertebra for decompression of spinal cord H/O hemorrhoidectomy History of appendectomy Family History Father NIDDY (non-insulin dependent diabetes mellitus in young) Cardiovascular disease Obesity Cancer of unknown origin Colon cancer Mother CAD (coronary artery disease) NIDDY (non-insulin dependent diabetes mellitus in young) Brother Schizophrenia Degenerative disc disease H/O lymph node cancer Sister Breast cancer Colon cancer Paternal Grandmother Ovarian cancer, Onset Age: 45 Daughter Fibromyalgia Hypertension Cancer of unknown origin Other Mental health problem Social History Household Members: None Housing: Apartment Alcohol intake: never Patient Tobacco Use Status: Never used Tobacco e-Cigarette/Vaping Use: Never Used Second Hand Smoke Exposure: No service: No Current occupational status: disabled 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 Sexual orientation: Straight/Heterosexual Gender identity: Female Cognitive needs: No Hearing needs: Yes Vision needs: Yes Female Reproductive History Menstrual Age of Menarche: 11 Review of Systems Const Denies fatigue, Denies fever(s), Denies night sweats, Denies poor appetite and Denies weight loss ENT Reports Normal hearing present, Denies dental pain, Denies dysphagia, Denies hearing loss, Denies mouth pain, Denies odynophagia, Denies throat swelling, Denies tongue swelling and Reports other (Dentition adequate) Card Reports no additional complaints Resp Reports no additional complaints GI Denies abdominal pain, Denies melena, Reports bloating, Denies hematochezia, Reports constipation, Denies GI cramping, Denies dysphagia, Denies excessive flatus, Denies early satiety, Reports heartburn, Denies diarrhea, Reports nausea, Denies odynophagia, Denies vomiting and Denies hematemesis Skin/Breast Denies pruritus, Denies lesions, Denies rash and Denies jaundice Neuro Reports Normal hearing present and Denies Abnormal speech present Endo Denies fatigue Aller/Immun Denies throat swelling and Denies tongue swelling Physical Exam Vital Signs: Last Vital Signs Pulse 67 04/17/23 14:30 BP 149/73 H 04/17/23 14:30 BMI result Body Mass Index 40.9 Const General: cooperative, no acute distress, well developed and well groomed Nutritional Appearance: well nourished and obese Orientation/consciousness: oriented to person, oriented to place and oriented to time Limitations: language barrier HEENT Head: Yes normocephalic and Yes atraumatic Eyes General: appearance normal, both eyes and all related structures Pupils: Equal, round and reactive pupils present Neck Neck: Yes normal visual inspection and Yes no lymphadenopathy Thyroid: Thyroid normal Resp Effort & Inspection: normal respiratory effort and able to speak in complete sentences Auscultation: clear to auscultation bilaterally Cardio Rate: regular rate Rhythm: regular rhythm Heart sounds: Normal, physiologic split S2 sound present Peripheral pulses: radial pulses present and posterior tibial pulses present GI Inspection: No distended, Yes Abdominal panniculus present and Yes obesity Palpation (GI): Soft to palpation, nontender, no guarding, not rigid and No hepatosplenomegaly present Percussion: Yes normal to percussion Auscultation: normal bowel sounds Rectal Exam - Female: deferred Skin General skin exam: no rashes or lesions noted, turgor normal, skin not dry, no jaundice, No spider nevi and no striae Rashes: no rashes Nails: normal Neuro General: oriented to person, oriented to place and oriented to time Cranial nerves: Yes Equal, round and reactive pupils present and Yes Normal hearing present Speech: No Abnormal speech present Extrem General: Yes normal to inspection, No clubbing, No cyanosis and No edema Psych Appearance: grossly normal and well kempt Mental Status: mental status grossly normal Speech and movement: Normal speech and movement present Affect: normal affect Attitude: cooperative Thought process: Normal thought process present and not confabulating Thought content: Normal thought content present Insight: Limited insight present (Psych) Judgement: Limited judgement present (Psych) Assessment & Plan Assessment & Plan (1) GERD (gastroesophageal reflux disease): Code(s): K21.9 - Gastro-esophageal reflux disease without esophagitis Qualifiers: Esophagitis presence: without esophagitis Qualified Code(s): K21.9 - Gastro-esophageal reflux disease without esophagitis Plan: [place] # Patricia LIve She is no better with changing the medications. Again, given the triple problem of untreatable gastroparesis, [place] GERD, and treatment resistant HP she rally is a poor candidate for Trulicity. Her PCP is Dr. Wu and she has an appt coming up. I will try contacting Dr. Wu about this. I really do not think there is anything I can do to counteract the symptoms in her particular situation because she has so many factors that may contraindicate further delaying her gastric emptying. Id her bowels tend to go between constipation diarrhea but she found the senna helpful in keeping the moving. Return office visit in about 5 weeks after she has seen Dr. Wu the. (2) H. pylori infection: Comment: H. pylori infection TREATMENT RESISTANT Notes: She has failed all rescue regimens I can think of, we will manage her symptoms as well as we can and consider if new treatment options develop. Code(s): A04.8 - Other specified bacterial intestinal infections (3) Gastroparesis: Comment: she has been unable to tolerate Reglan due to dizziness so her only real options to consider gastric pacemaker going forward if her symptoms become severe. Aeb Code(s): K31.84 - Gastroparesis (4) Constipation: Code(s): K59.00 - Constipation, unspecified (5) HURD (nonalcoholic steatohepatitis): Comment: Discovered on her diagnosis list it appears that in the past she has been worked up and was negative for autoimmune causes, negative for hepatitis a B or C, LFTs 1st began elevated 10/2019 with AST/ALT 47/42 and a normal alk-phos and bili CT abdomen and pelvis 06/2018 IMPRESSION: 1. No bowel obstruction, free intraperitoneal air or abscess is seen. No diverticulitis is seen. The vermiform appendix is not seen with certainty. 2. No urinary calculus or obstructive uropathy is seen. 3. There is hepatic steatosis. 4. There is a small fat- containing umbilical hernia. 5. There are marked thoracic degenerative changes. Laboratory Tests 11/29/21 14:06 Total Bilirubin 1.0 AST 29 ALT [address] ABD AND PELVIS 10/05/21? FINDINGS: LUNG BASES: The visualized lung bases are unremarkable.? LIVER, GALLBLADDER, AND BILIARY TREE: The liver is normal in size, shape, and attenuation. No focal hepatic lesion or biliary ductal dilatation is present. Gallbladder unremarkable.? PANCREAS: Unremarkable.? SPLEEN: Unremarkable.? ADRENAL GLANDS: Unremarkable.? KIDNEYS AND URETERS: The kidneys are normal in size, shape, and attenuation. No hydronephrosis, hydroureter, or calculi seen. There is a stable 1.0 cm cyst in the right kidney. No perinephric stranding. ? BLADDER: Unremarkable.? GASTROINTESTINAL TRACT: The small and large bowel are unremarkable. The appendix is unremarkable.? ABDOMINAL WALL: No significant hernia is appreciated.? LYMPH NODES: Normal. VASCULAR: Unremarkable. PELVIC VISCERA: Unremarkable.? OSSEOUS STRUCTURES: Unremarkable.? CT/CT abdomen pelvis w con IMPRESSION: No acute findings within the abdomen or pelvis. NORMAL TRANSAMINASES FOR THE PAST FEW YEARS SO THIS CAN BE MONITORED BY HER PRIMARY CARE PROVIDER Code(s): K75.81 - Nonalcoholic steatohepatitis (HURD) Coding Level of Care Code Est Pt Level 3 (08419) Diagnoses Gastroesophageal reflux disease without esophagitis K21.9 Esophagitis presence: without esophagitis H. pylori infection A04.8 Gastroparesis K31.84 Constipation K59.00 HURD (nonalcoholic steatohepatitis) K75.81
--- NOTE | 2023-04-17 14:29 | A.OFFVIS_ITS ---
Intake Vital Signs 04/17/23 14:30 Height 5 ft 3 in Weight 231 lb 0.711 oz BMI 40.9 BP 149/73 H Blood Pressure Location Lt brachial Position Sitting Pulse 67 Intake Visit Reasons: 3 week follow up Intake Note: Patient returns to in office visit today in follow up of GERD and labs. CC: Patient c/o a lot of gas, acid reflux at night, occasional constipation, diarrhea, and nausea. Denies other GI symptoms today. 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 Allergies acetaminophen [From Vicodin] Allergy (Intermediate, Verified 04/17/23 14:34) Palpitations, Itch amoxicillin [Prevpac] Allergy (Intermediate, Verified 04/17/23 14:34) itchy throat hydrocodone [From Vicodin] Allergy (Intermediate, Verified 04/17/23 14:34) Palpitations, Itch ibuprofen [From Motrin] Allergy (Intermediate, Verified 04/17/23 14:34) UPSET STOMACH, abdominal pain lansoprazole [Prevpac] Allergy (Intermediate, Verified 04/17/23 14:34) itchy throat morphine [MORPHINE] Allergy (Intermediate, Verified 04/17/23 14:34) PALPATATIONS, PANIC ATTACKS, nauseas,panic attack, heart palpitations omeprazole [From PRILOSEC] Allergy (Intermediate, Verified 04/17/23 14:34) ITCHY THROAT pravastatin [PRAVASTATIN] Allergy (Intermediate, Verified 04/17/23 14:34) UNKNOWN rosuvastatin [From CRESTOR] Allergy (Intermediate, Verified 04/17/23 14:34) UNKNOWN terbinafine [TERBINAFINE] Allergy (Intermediate, Verified 04/17/23 14:34) UNKNOWN atorvastatin [From LIPITOR] Allergy (Unknown, Verified 04/17/23 14:34) UNKNOWN clarithromycin [From BIAXIN] Adverse Reaction (Intermediate, Verified 04/17/23 14:34) ABD PAIN, DIARRHEA gabapentin [GABAPENTIN] Adverse Reaction (Intermediate, Verified 04/17/23 14:34) UNKNOWN, nausea, dizziness levofloxacin [LEVOFLOXACIN] Adverse Reaction (Intermediate, Verified 04/17/23 14:34) PALPITATIONS tylenol with codeine Allergy (Unknown, Uncoded 03/05/23 13:02) fast heart rate REPLACED BY [facility] Medical History Irritable bowel syndrome with diarrhea Allergic rhinitis Lumbar degenerative disc disease Breast pain during Carpal tunnel syndrome Arthritis Morbid obesity with BMI of 40.0-44.9, adult Insomnia Diabetes mellitus Benign essential hypertension Polyarthralgia Fibromyalgia Mixed hyperlipidemia Candidiasis of mouth and esophagus Thoracic spondylosis Surgical History Hx of colonoscopy History of esophagogastroduodenoscopy (EGD) History of dermoid cyst excision History of excision of lamina of cervical vertebra for decompression of spinal cord H/O hemorrhoidectomy History of appendectomy Family History Father NIDDY (non-insulin dependent diabetes mellitus in young) Cardiovascular disease Obesity Cancer of unknown origin Colon cancer Mother CAD (coronary artery disease) NIDDY (non-insulin dependent diabetes mellitus in young) Brother Schizophrenia Degenerative disc disease H/O lymph node cancer Sister Breast cancer Colon cancer Paternal Grandmother Ovarian cancer, Onset Age: 45 Daughter Fibromyalgia Hypertension Cancer of unknown origin Other Mental health problem Social History Household Members: None Housing: Apartment Alcohol intake: never Patient Tobacco Use Status: Never used Tobacco e-Cigarette/Vaping Use: Never Used Second Hand Smoke Exposure: No service: No Current occupational status: disabled 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
[2023-04-17 14:30] VITALS: BP 149/73; PULSE 67; BMI 40.9
== END 2023-04-17 15:16 | disposition home or self-care (01) ==
PROVIDERS: PCP Internal Medicine Geriatric Medicine; Visit Provider Nurse Practitioner
DX: K21.9 Gastro-esophageal reflux disease without esophagitis (principal); A04.8 Other specified bacterial intestinal infections; K31.84 Gastroparesis; K59.00 Constipation, unspecified; K75.81 Nonalcoholic steatohepatitis (NASH)
CPT/HCPCS: 99213

== ENCOUNTER → 2023-04-17 14:18 | Outpatient (BNVA) | payer MEDICAID, SELFPAY | PROVIDERS: PCP Internal Medicine Geriatric Medicine; Visit Provider Nurse Practitioner | DX: K21.9 Gastro-esophageal reflux disease without esophagitis (principal); K31.84 Gastroparesis; K59.00 Constipation, unspecified; K75.81 Nonalcoholic steatohepatitis (NASH); A04.8 Other specified bacterial intestinal infections | CPT/HCPCS: 99212 ==

== ENCOUNTER 2023-05-04 13:00 | Outpatient (REF) | payer MEDICAID, SELFPAY | END 2023-05-04 13:01 | disposition home or self-care (01) | LOC: HO.MAMMO 13:00 | PROVIDERS: PCP Internal Medicine Geriatric Medicine; Visit Provider Internal Medicine Geriatric Medicine | DX: Z12.31 Encounter for screening mammogram for malignant neoplasm of breast (principal) | CPT/HCPCS: 77063; 77067 ==

== ENCOUNTER → 2023-05-04 13:30 | Outpatient (BNV) | payer MEDICAID, SELFPAY | PROVIDERS: PCP Internal Medicine Geriatric Medicine; Visit Provider Radiology Diagnostic Radiology | DX: Z12.31 Encounter for screening mammogram for malignant neoplasm of breast (principal) | CPT/HCPCS: 77063; 77067 ==

== ENCOUNTER 2023-05-22 13:41 | Outpatient (AMB) | payer MEDICAID, SELFPAY ==
--- NOTE | 2023-05-22 13:50 | MHC.OFFVIS ---
Intake Vital Signs 05/22/23 14:15 Height 5 ft 3 in Weight 219 lb BMI 38.8 BP 172/78 H Blood Pressure Location Lt brachial Position Sitting Pulse 68 Intake Visit Reasons: follow up Intake Note: Patient returns today in follow up of GERD. CC:Patient c/o diarrhea after she was placed on new diabetes medication Sinjardy (04/27/23). Patient states that she also has been having trouble urinating, light green urine, mid lower back pain w/radiation to LUQ abdomen. She also state she feels a lot of weakness, heart palpitations, nausea, and light headaches. Stave Bolt Equalizer Required: Yes Stave Bolt Equalizer Name: [id number] Allergies acetaminophen [From Vicodin] Allergy (Intermediate, Verified 05/22/23 14:17) Palpitations, Itch amoxicillin [Prevpac] Allergy (Intermediate, Verified 05/22/23 14:17) itchy throat hydrocodone [From Vicodin] Allergy (Intermediate, Verified 05/22/23 14:17) Palpitations, Itch ibuprofen [From Motrin] Allergy (Intermediate, Verified 05/22/23 14:17) UPSET STOMACH, abdominal pain lansoprazole [Prevpac] Allergy (Intermediate, Verified 05/22/23 14:17) itchy throat morphine [MORPHINE] Allergy (Intermediate, Verified 05/22/23 14:17) PALPATATIONS, PANIC ATTACKS, nauseas,panic attack, heart palpitations omeprazole [From PRILOSEC] Allergy (Intermediate, Verified 05/22/23 14:17) ITCHY THROAT pravastatin [PRAVASTATIN] Allergy (Intermediate, Verified 05/22/23 14:17) UNKNOWN rosuvastatin [From CRESTOR] Allergy (Intermediate, Verified 05/22/23 14:17) UNKNOWN terbinafine [TERBINAFINE] Allergy (Intermediate, Verified 05/22/23 14:17) UNKNOWN atorvastatin [From LIPITOR] Allergy (Unknown, Verified 05/22/23 14:17) UNKNOWN clarithromycin [From BIAXIN] Adverse Reaction (Intermediate, Verified 05/22/23 14:17) ABD PAIN, DIARRHEA gabapentin [GABAPENTIN] Adverse Reaction (Intermediate, Verified 05/22/23 14:17) UNKNOWN, nausea, dizziness levofloxacin [LEVOFLOXACIN] Adverse Reaction (Intermediate, Verified 05/22/23 14:17) PALPITATIONS tylenol with codeine Allergy (Unknown, Uncoded 03/05/23 13:02) fast heart rate HPI follow up HPI Details Assessment & Plan (1) GERD (gastroesophageal reflux disease): Code(s): K21.9 - Gastro-esophageal reflux disease without esophagitis Qualifiers: Esophagitis presence: without esophagitis Qualified Code(s): K21.9 - Gastro-esophageal reflux disease without esophagitis Plan: Chinese # Patricia LIve She is no better with changing the medications. Again, given the triple problem of untreatable gastroparesis, cowlitz GERD, and treatment resistant HP she rally is a poor candidate for Trulicity. Her PCP is Dr. Wu and she has an appt coming up. I will try contacting Dr. Wu about this. I really do not think there is anything I can do to counteract the symptoms in her particular situation because she has so many factors that may contraindicate further delaying her gastric emptying. Id her bowels tend to go between constipation diarrhea but she found the senna helpful in keeping the moving. Return office visit in about 5 weeks after she has seen Dr. Wu the. (2) H. pylori infection: Comment: H. pylori infection TREATMENT RESISTANT Notes: She has failed all rescue regimens I can think of, we will manage her symptoms as well as we can and consider if new treatment options develop. Code(s): A04.8 - Other specified bacterial intestinal infections (3) Gastroparesis: Comment: she has been unable to tolerate Reglan due to dizziness so her only real options to consider gastric pacemaker going forward if her symptoms become severe. Aeb Code(s): K31.84 - Gastroparesis (4) Constipation: Code(s): K59.00 - Constipation, unspecified (5) HURD (nonalcoholic steatohepatitis): Comment: Discovered on her diagnosis list it appears that in the past she has been worked up and was negative for autoimmune causes, negative for hepatitis a B or C, LFTs 1st began elevated 10/2019 with AST/ALT 47/42 and a normal alk-phos and bili CT abdomen and pelvis 06/2018 IMPRESSION: 1. No bowel obstruction, free intraperitoneal air or abscess is seen. No diverticulitis is seen. The vermiform appendix is not seen with certainty. 2. No urinary calculus or obstructive uropathy is seen. 3. There is hepatic steatosis. 4. There is a small fat-containing umbilical hernia. 5. There are marked thoracic degenerative changes. Laboratory Tests 11/29/21 14:06 Total Bilirubin 1.0 AST 29 ALT [address] ABD AND PELVIS 10/05/21 FINDINGS: LUNG BASES: The visualized lung bases are unremarkable. LIVER, GALLBLADDER, AND BILIARY TREE: The liver is normal in size, shape, and attenuation. No focal hepatic lesion or biliary ductal dilatation is present. Gallbladder unremarkable. PANCREAS: Unremarkable. SPLEEN: Unremarkable. ADRENAL GLANDS: Unremarkable. KIDNEYS AND URETERS: The kidneys are normal in size, shape, and attenuation. No hydronephrosis, hydroureter, or calculi seen. There is a stable 1.0 cm cyst in the right kidney. No perinephric stranding. BLADDER: Unremarkable. GASTROINTESTINAL TRACT: The small and large bowel are unremarkable. The appendix is unremarkable. ABDOMINAL WALL: No significant hernia is appreciated. LYMPH NODES: Normal. VASCULAR: Unremarkable. PELVIC VISCERA: Unremarkable. OSSEOUS STRUCTURES: Unremarkable. CT/CT abdomen pelvis w con IMPRESSION: No acute findings within the abdomen or pelvis. NORMAL TRANSAMINASES FOR THE PAST FEW YEARS SO THIS CAN BE MONITORED BY HER PRIMARY CARE PROVIDER Code(s): K75.81 - Nonalcoholic steatohepatitis (HURD) TODAYS VISIT Chinese #[id number] Her primary care provider took her off of Trulicity but put her on Jardiance. Since then her heartburn has greatly improved however she is having severe watery diarrhea. Along with this she is also reporting symptoms of dizziness, tachycardia, and generalized weakness with ?by limbs feeling heavy. ? I am uncertain if these symptoms may be related to dehydration and electrolyte abnormalities or medication side effect. She is also reporting pain in the left upper quadrant the wraps around to her back that she feet says feels like a kidney infection. However, this kind of pain is sometimes also associated with Jardiance. I am going to get Chem panel, a GI stool study panel to make sure this is an infection, CRP, and of course a urinalysis. For now on the start her on Carafate to see if we can slow the diarrhea and improve her p.o. intake of fluids. I want to see her sometime next week. [facility] Medical History Irritable bowel syndrome with diarrhea Allergic rhinitis Lumbar degenerative disc disease Breast pain during Carpal tunnel syndrome Arthritis Morbid obesity with BMI of 40.0-44.9, adult Insomnia Diabetes mellitus Benign essential hypertension Polyarthralgia Fibromyalgia Mixed hyperlipidemia Candidiasis of mouth and esophagus Thoracic spondylosis Surgical History Hx of colonoscopy History of esophagogastroduodenoscopy (EGD) History of dermoid cyst excision History of excision of lamina of cervical vertebra for decompression of spinal cord H/O hemorrhoidectomy History of appendectomy Family History Father NIDDY (non-insulin dependent diabetes mellitus in young) Cardiovascular disease Obesity Cancer of unknown origin Colon cancer Mother CAD (coronary artery disease) NIDDY (non-insulin dependent diabetes mellitus in young) Brother Schizophrenia Degenerative disc disease H/O lymph node cancer Sister Breast cancer Colon cancer Paternal Grandmother Ovarian cancer, Onset Age: 45 Daughter Fibromyalgia Hypertension Cancer of unknown origin Other Mental health problem Social History Household Members: None Housing: Apartment Alcohol intake: never Patient Tobacco Use Status: Never used Tobacco e-Cigarette/Vaping Use: Never Used Second Hand Smoke Exposure: No service: No Current occupational status: disabled 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 Glasses Reports requires corrective lenses ENT Reports Normal hearing present, Denies dental pain, Denies dysphagia, Reports dizziness, Denies hearing loss, Denies mouth pain, Denies odynophagia, Denies throat swelling, Denies tongue swelling and Reports other (Dentition adequate) Card Reports rapid heart rate Resp Reports no additional complaints GI Denies abdominal pain, Denies melena, Denies bloating, Denies hematochezia, Denies constipation, Denies GI cramping, Denies dysphagia, Denies excessive flatus, Denies early satiety, Reports heartburn, Reports diarrhea, Reports nausea, Denies odynophagia, Denies vomiting and Denies hematemesis Reports difficulty voiding and Reports flank pain Musc Reports back pain and Reports myalgias Skin/Breast Denies pruritus, Denies lesions, Denies rash and Denies jaundice Neuro Reports Normal hearing present, Denies Abnormal speech present, Reports dizziness and Reports weakness Endo Denies fatigue Aller/Immun Denies throat swelling and Denies tongue swelling Physical Exam Vital Signs: Last Vital Signs Pulse 68 05/22/23 14:15 BP 172/78 H 05/22/23 14:15 BMI result Body Mass Index 38.8 Const General: cooperative, no acute distress, well developed and well groomed Nutritional Appearance: well nourished and obese Orientation/consciousness: oriented to person, oriented to place and oriented to time Limitations: language barrier HEENT Head: Yes normocephalic and Yes atraumatic Eyes General: appearance normal, both eyes and all related structures Pupils: Equal, round and reactive pupils present Neck Neck: Yes normal visual inspection and Yes no lymphadenopathy Thyroid: Thyroid normal Resp Effort & Inspection: normal respiratory effort and able to speak in complete sentences Auscultation: clear to auscultation bilaterally Cardio Rate: regular rate Rhythm: regular rhythm Heart sounds: Normal, physiologic split S2 sound present Peripheral pulses: radial pulses present and posterior tibial pulses present GI Inspection: No distended, Yes Abdominal panniculus present and Yes obesity Palpation (GI): Soft to palpation, nontender, no guarding, not rigid and No hepatosplenomegaly present Percussion: Yes normal to percussion Auscultation: Hyperactive bowel sounds present Rectal Exam - Female: deferred General: Yes CVA tenderness on the left Back/Spine/Pelvis Back: CVA tenderness Skin General skin exam: no rashes or lesions noted, turgor normal, skin not dry, no jaundice, No spider nevi and no striae Rashes: no rashes Nails: normal Neuro General: oriented to person, oriented to place and oriented to time Cranial nerves: Yes Equal, round and reactive pupils present and Yes Normal hearing present Speech: No Abnormal speech present Extrem General: Yes normal to inspection, No clubbing, No cyanosis and No edema Psych Appearance: grossly normal and well kempt Mental Status: mental status grossly normal Speech and movement: Normal speech and movement present Affect: normal affect Attitude: cooperative Thought process: Normal thought process present and not confabulating Thought content: Normal thought content present Insight: Limited insight present (Psych) Judgement: Limited judgement present (Psych) Assessment & Plan Assessment & Plan (1) Acute diarrhea: Comment: Possibly IBS - M but with getting stool samples to rule out acute infection or other causative pathology Code(s): R19.7 - Diarrhea, unspecified (2) Gastroparesis: Comment: she has been unable to tolerate Reglan due to dizziness so her only real options to consider gastric pacemaker going forward if her symptoms become severe. Aeb Code(s): K31.84 - Gastroparesis (3) GERD (gastroesophageal reflux disease): Code(s): K21.9 - Gastro-esophageal reflux disease without esophagitis Qualifiers: Esophagitis presence: without esophagitis Qualified Code(s): K21.9 - Gastro-esophageal reflux disease without esophagitis (4) H. pylori infection: Comment: H. pylori infection TREATMENT RESISTANT Notes: She has failed all rescue regimens I can think of, we will manage her symptoms as well as we can and consider if new treatment options develop. Code(s): A04.8 - Other specified bacterial intestinal infections (5) Left flank pain: Code(s): R10.9 - Unspecified abdominal pain Plan Chinese #[id number] Her primary care provider took her off of Trulicity but put her on Jardiance. Since then her heartburn has greatly improved however she is having severe watery diarrhea. Along with this she is also reporting symptoms of dizziness, tachycardia, and generalized weakness with ?by limbs feeling heavy. ? I am uncertain if these symptoms may be related to dehydration and electrolyte abnormalities or medication side effect. She is also reporting pain in the left upper quadrant the wraps around to her back that she feet says feels like a kidney infection. However, this kind of pain is sometimes also associated with Jardiance. I am going to get Chem panel, a GI stool study panel to make sure this is an infection, CRP, and of course a urinalysis. For now on the start her on Carafate to see if we can slow the diarrhea and improve her p.o. intake of fluids. I want to see her sometime next week. Orders: Orders CDiff Gene PCR Today R19.7 - Diarrhea, unspecified C Reactive Protein Today R19.7 - Diarrhea, unspecified UA CC w/rflx Micro + Cult Today R19.7 - Diarrhea, unspecified Creatinine Today R19.7 - Diarrhea, unspecified GI Panel Today R19.7 - Diarrhea, unspecified Comprehensive Met. Panel Today R19.7 - Diarrhea, unspecified Complete Blood Count Auto Diff Today R19.7 - Diarrhea, unspecified Medications: New sucralfate (Carafate) 2 grams (2 x 1 gram) PO DAILY 60 tabs 3RF R19.7 - Diarrhea, unspecified Coding Level of Care Code Est Pt Level 4 (72441) Diagnoses Acute diarrhea R19.7 Gastroparesis K31.84 Gastroesophageal reflux disease without esophagitis K21.9 Esophagitis presence: without esophagitis H. pylori infection A04.8 Left flank pain R10.9
[2023-05-22 14:15] VITALS: BP 172/78; PULSE 68; BMI 38.8
== END 2023-05-22 15:01 | disposition home or self-care (01) ==
PROVIDERS: PCP Internal Medicine Geriatric Medicine; Visit Provider Nurse Practitioner
DX: R19.7 Diarrhea, unspecified (principal); K31.84 Gastroparesis; K21.9 Gastro-esophageal reflux disease without esophagitis; A04.8 Other specified bacterial intestinal infections; R10.9 Unspecified abdominal pain
CPT/HCPCS: 99214

== ENCOUNTER 2023-05-22 13:41 | Outpatient (REF) | payer MEDICAID, SELFPAY ==
[2023-05-22 15:21] LABS: MANUAL DIFF FLAG NO
[2023-05-22 15:31] LABS: Basophils Absolute Auto 0.1 X10*3/uL (0.0-0.2); Basophils Percent Auto 0.5 % (0-2); Eosinophils Absolute Auto 0.1 X10*3/uL (0.0-0.4); Eosinophils Percent Auto 1.3 % (0-4); Hematocrit 42.6 % (37.0-47.0); Hemoglobin 13.5 g/dl (12.0-16.0); Imm Gran Abs Auto 0.02 X10*3/uL (0.00-0.03); Imm Gran Pct Auto 0.2 % (0.0-0.4); Lymphocytes Absolute Auto 2.6 X10*3/uL (1.2-4.9); Lymphocytes Percent Auto 27.7 % (20-40); Mean Corpuscular HGB Conc 31.7 g/dl (31.0-35.0); Mean Corpuscular Hemoglobin 26.7 pg (27.0-33.0); Mean Corpuscular Volume 84.2 fL (80.0-98.0); Mean Platelet Volume 9.8 fL (9.4-12.3); Monocytes Absolute Auto 0.6 X10*3/uL (0.1-1.2); Monocytes Percent Auto 6.9 % (2-11); Neutrophils Absolute Auto 5.8 x10*3/uL (2.0-8.3); Neutrophils Percent Auto 63.4 % (45-73); Platelet Count 320 X10*3/uL (160-400); Red Blood Count 5.06 X10*6/uL (4.20-5.50); Red Cell Distribution Width 13.2 % (11.0-16.0); White Blood Count 9.2 X10*3/uL (4.8-10.8)
[2023-05-22 15:53] LABS: Alanine Aminotransferase 29 U/L (0-31); Albumin Level 4.5 g/dL (3.5-5.0); Alkaline Phosphatase 135 U/L (39-117); Anion Gap 11 (12-20); Aspartate Amino Transferase 24 U/L (5-31); Bilirubin Total 0.8 mg/dL (0.0-1.0); Blood Urea Nitrogen 14 mg/dL (9-16); C Reactive Protein 0.55 mg/dL (< or = 0.50); Calcium 10.1 mg/dL (8.4-10.2); Carbon Dioxide 29 mmol/L (22-29); Chloride 108 mmol/L (96-108); Estimated Glomerular Filt Rate > 60; Glucose Random 131 mg/dL (60-115); Potassium 3.3 mmol/L (3.3-5.1); Sodium 145 mmol/L (135-145); Total Protein 8.2 g/dL (6.5-8.0)
[2023-05-22 16:06] LABS: Appearance Urine Clear; Color Urine Yellow; Glucose Urine UA >=1000 mg/dL (Negative); Leukocyte Esterase Urine Negative (Negative); Nitrite Urine Negative (Negative); Specific Gravity - Urine >= 1.030 (1.005-1.025); UMIC TRIGGER UACC YES; Urine Blood Negative (Negative); Urine Ketones Negative (Negative); Urine Protein Negative (Neg-Trace)
[2023-05-22 16:23] LABS: Bacteria Urine None Seen (None Seen); WBC Urine 0-5 /HPF (0-5)
== END 2023-05-22 13:42 | disposition home or self-care (01) ==
LOC: HO.LAB 13:41
PROVIDERS: PCP Internal Medicine Geriatric Medicine; Visit Provider Nurse Practitioner
DX: R19.7 Diarrhea, unspecified (principal); K31.84 Gastroparesis; K21.9 Gastro-esophageal reflux disease without esophagitis; A04.8 Other specified bacterial intestinal infections; R10.9 Unspecified abdominal pain
CPT/HCPCS: 36415; 80053; 81001; 85025; 86140; 99212

== ENCOUNTER 2023-05-22 16:39 | Emergency (ER) | payer MEDICAID, SELFPAY ==
--- NOTE | ~2023-05-22 | CT_ITS ---
EXAMINATION: CT ABDOMEN AND PELVIS WITHOUT CONTRAST CLINICAL INFORMATION: Left flank pain COMPARISON: CT abdomen pelvis October 05, 2021 TECHNIQUE: Multidetector volumetric imaging was performed from the superior aspect of the liver through the pubic symphysis. Sagittal and coronal reformatted images were obtained on the technologist's workstation. This CT examination was performed using dose optimization techniques as appropriate, variously including the following: *Automated exposure control *Adjustment of mA and/or kV according to patient size (this includes techniques or standardized protocols for targeted exams where dose is matched to indication/reason for exam; i.e. extremities or head) *Use of iterative reconstruction technique DLP: 786 mGy-cm FINDINGS: LUNG BASES: The visualized lung bases are unremarkable. LIVER, GALLBLADDER, AND BILIARY TREE: The liver is normal in size, shape, and attenuation. No focal hepatic lesion or biliary ductal dilatation is present. The gallbladder is unremarkable with no evidence of radiopaque gallstones, gallbladder wall thickening, or obvious pericholecystic inflammatory changes. PANCREAS: Unremarkable. SPLEEN: Unremarkable. ADRENAL GLANDS: Unremarkable. KIDNEYS AND URETERS: The kidneys are normal in size, shape, and attenuation. No hydronephrosis, hydroureter, or calculi seen. No perinephric stranding. Stable 1 cm cyst midpole right kidney. No follow-up imaging is recommended for simple renal cyst. BLADDER: Unremarkable. GASTROINTESTINAL TRACT: The small and large bowel are unremarkable. The appendix is unremarkable. ABDOMINAL WALL: No significant hernia is appreciated. LYMPH NODES: Normal. VASCULAR: Unremarkable. PELVIC VISCERA: Unremarkable. OSSEOUS STRUCTURES: Unremarkable. CT/CT abdomen pelvis wo IV con IMPRESSION: No significant abnormality. Fleischner guidelines were followed.
[2023-05-22 17:21] VITALS: BP 190/85; PULSE 83; RESP 18; TEMP 36.2; O2SAT 100; BMI 38.8
--- NOTE | 2023-05-22 17:23 | ED_ITS ---
HPI - General Adult General Chief complaint: Abdominal Pain Stated complaint: high bp, pain in side Time Seen by Provider: 05/22/23 21:18 Source: patient, family and old records reviewed Mode of arrival: ambulatory Limitations: no limitations History of Present Illness HPI narrative: 53 yo female with PMH of back pain, migraines, HURD, gastroparesis, GERD, obesity, DM, HLD, HTN notes she has had L flank pain for 3 weeks went to [facility] and did not have imaging. Pain is deep inside but hurts to move. She feels she has yellow greenish look to her urine. Some nausea but no vomiting or diarrhea. She denies hx of stones. She notes her BP goes up when she is in pain and she has been feeling palpitations on and off as well recently. She states she is compliant with medications she is due for her carvedilol MD complaint: L flank pain Onset (ago): week(s) (few) Location: abdomen (L flank) Radiation: non-radiation Severity: moderate Quality: stabbing Pain Consistency: constant Relieving factors: rest Exacerbating factors: movement Associated symptoms: nausea/vomiting Treatments prior to arrival: none Related Data Home Medications Medication Instructions Recorded Confirmed albuterol sulfate 90 mcg/actuation 2 puff PO QID PRN 03/21/20 10/30/22 aerosol inhaler calcipotriene 0.005 % scalp topical 02/04/21 10/30/22 solution albuterol sulfate 2.5 mg/3 mL 2.5 mg continuous nebulization QID 12/06/21 10/30/22 (0.083 %) solution for nebulization PRN shortness of breath or wheezing carvedilol 3.125 mg tablet 6.25 mg PO BID 07/08/22 10/30/22 clindamycin phosphate 1 % lotion topical DAILY 07/25/22 10/30/22 sumatriptan succinate 50 mg tablet 50 mg PO Q2-4H PRN migraine 03/05/23 headache empagliflozin 12.5 mg-metformin 1 tab PO BID 05/22/23 500 mg tablet (Synjardy) Previous Rx's Medication Instructions Recorded acetaminophen 500 mg tablet 500 mg PO Q6H PRN pain or fever 10/30/20 (Tylenol Extra Strength) #20 tabs blood pressure monitor #1 ea 05/06/21 blood-glucose meter (FreeStyle #1 ea 05/06/21 Lite Meter kit) lancets 28 gauge #100 ea 05/06/21 aspirin 81 mg tablet,delayed 81 mg PO DAILY #90 tabs 08/23/21 release loratadine 10 mg tablet (Claritin) 10 mg PO DAILY PRN allergy 08/23/21 symptoms 90 days #90 tabs meclizine 25 mg tablet 25 mg PO DAILY PRN dizziness 15 10/21/21 days #15 tabs RIGHT WRIST SPLINT (large) #1 ea 12/06/21 zolpidem 10 mg tablet 10 mg PO BEDTIME PRN insomnia 90 01/21/22 days #90 tabs blood sugar diagnostic (FreeStyle #100 strips 01/24/22 Lite Strips) triamcinolone acetonide 0.1 % 1 appl topical BID #30 grams 07/25/22 topical ointment cholecalciferol (vitamin D3) 50 50 mcg PO DAILY 90 days #90 caps 07/29/22 mcg (2,000 unit) capsule fluticasone propionate 230 2 puff inhalation Q12H 30 days #1 07/29/22 mcg-salmeterol 21 mcg/actuation ea HFA inhaler (Advair HFA) simvastatin 20 mg tablet 20 mg PO BEDTIME #90 tabs 08/08/22 clotrimazole-betamethasone 1 1 appl topical BID itching 7 days 09/10/22 %-0.05 % topical cream #45 grams hydrochlorothiazide 25 mg tablet 25 mg PO DAILY #90 tabs 12/20/22 famotidine 40 mg tablet (Pepcid) 40 mg PO BEDTIME #30 tabs 03/05/23 pantoprazole 40 mg tablet,delayed 40 mg PO BID 30 days #60 tabs 03/05/23 release (Protonix) sennosides 8.6 mg tablet (Senna 17.2 mg (2 x 8.6 mg) PO BEDTIME 03/05/23 Laxative) #60 tabs sucralfate 1 gram tablet (Carafate) 2 g (2 x 1 gram) PO DAILY #60 tabs 05/22/23 diazepam 5 mg tablet (Valium) 5 mg PO BID PRN muscle spasm #10 05/23/23 tabs Allergies Allergy/AdvReac Type Severity Reaction Status Date / Time acetaminophen [From Vicodin] Allergy Intermediate Palpitations, Verified 05/22/23 17:21 Itch amoxicillin [Prevpac] Allergy Intermediate itchy Verified 05/22/23 17:21 throat hydrocodone [From Vicodin] Allergy Intermediate Palpitations, Verified 05/22/23 17:21 Itch ibuprofen [From Motrin] Allergy Intermediate UPSET Verified 05/22/23 17:21 STOMACH, abdominal pain lansoprazole [Prevpac] Allergy Intermediate itchy Verified 05/22/23 17:21 throat morphine [MORPHINE] Allergy Intermediate PALPATATIONS, Verified 05/22/23 17:21 PANIC ATTACKS, nauseas,panic attack, heart palpitations omeprazole [From PRILOSEC] Allergy Intermediate ITCHY Verified 05/22/23 17:21 THROAT pravastatin [PRAVASTATIN] Allergy Intermediate UNKNOWN Verified 05/22/23 17:21 rosuvastatin [From CRESTOR] Allergy Intermediate UNKNOWN Verified 05/22/23 17:21 terbinafine [TERBINAFINE] Allergy Intermediate UNKNOWN Verified 05/22/23 17:21 atorvastatin [From LIPITOR] Allergy Unknown UNKNOWN Verified 05/22/23 17:21 clarithromycin [From BIAXIN] AdvReac Intermediate ABD PAIN, Verified 05/22/23 17:21 DIARRHEA gabapentin [GABAPENTIN] AdvReac Intermediate UNKNOWN, Verified 05/22/23 17:21 nausea, dizziness levofloxacin [LEVOFLOXACIN] AdvReac Intermediate PALPITATION Verified 05/22/23 17:21 S tylenol with codeine Allergy Unknown fast heart Uncoded 03/05/23 13:02 rate Review of Systems Review of Systems: Constitutional : No Weight loss, No Fever, No Chills ENT/Mouth : No sore throat, No Rhinorrhea Eyes: No Swelling, No Redness Cardiovascular : No Chest Pain, No SOB, NoEdema, pos palpitations Respiratory : No Cough, No Sputum, No Wheezing Gastrointestinal : Positive Nausea, no Vomiting, no Diarrhea, positive flank Pain, No Hematochezia, No Melena Genitourinary : pos Dysuria, No Urinary Frequency, No Hematuria, No Urgency Musculoskeletal : No joint pain, No Myalgias, No Joint Swelling Skin : No Skin Lesions, No rash Neuro : No Weakness, No Numbness, No Dizziness, No Headache Psych : No Anxiety/Panic, No Depression Heme/Lymph: No Bruising, No Lymphadenopathy Endocrine : No Polyuria, No Polydipsia All other systems reviewed and are negative. PMFSH Past Medical History Attestation statement: The following information was validated with the patient. Source: old records reviewed Medical History Irritable bowel syndrome with diarrhea Allergic rhinitis Lumbar degenerative disc disease Breast pain during Carpal tunnel syndrome Arthritis Morbid obesity with BMI of 40.0-44.9, adult Insomnia Diabetes mellitus Benign essential hypertension Polyarthralgia Fibromyalgia Mixed hyperlipidemia Candidiasis of mouth and esophagus Thoracic spondylosis Surgical History Hx of colonoscopy History of esophagogastroduodenoscopy (EGD) History of dermoid cyst excision History of excision of lamina of cervical vertebra for decompression of spinal cord H/O hemorrhoidectomy History of appendectomy Family History Family History Father NIDDY (non-insulin dependent diabetes mellitus in young) Cardiovascular disease Obesity Cancer of unknown origin Colon cancer Mother CAD (coronary artery disease) NIDDY (non-insulin dependent diabetes mellitus in young) Brother Schizophrenia Degenerative disc disease H/O lymph node cancer Sister Breast cancer Colon cancer Paternal Grandmother Ovarian cancer, Onset Age: 45 Daughter Fibromyalgia Hypertension Cancer of unknown origin Other Mental health problem Social History Social History Household Members: None Housing: Apartment Alcohol intake: never Patient Tobacco Use Status: Never used Tobacco Smoked in Last 30 Days: No e-Cigarette/Vaping Use: Never Used Second Hand Smoke Exposure: No Use of substances other than those prescribed or required for medical reasons: No Advance Directives: No Advance Directives Information Provided: No service: No Current occupational status: disabled 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 Oriented X3. No acute distress. Eyes: Pupils equal, round and reactive to light. ENT: Pharynx normal. Neck: Normal inspection. Neck supple. CVS: Normal heart rate and rhythm. Pulses normal. Respiratory: No respiratory distress. Breath sounds normal. Abdomen: Soft and nontender. has Moderate L flank pain Skin: Skin warm and dry. Normal skin color. Normal skin turgor. Extremities: No lower extremity edema. Neuro: Oriented X 3. No motor deficit. No sensory deficit. Course Course Course Narrative: 53-year-old female presents for evaluation of left flank pain. She reports that she was seen 3 weeks ago at [facility] for similar pain. She is unsure of the results of her workup. Patient was seen her PCP office earlier today and had labs and a UA that are available in our computer system. She was also sent here due to elevated blood pressure. Medications Administered Discontinued Medications Generic Name Dose Route Start Last Admin Trade Name Freq PRN Reason Stop Dose Admin Carvedilol 6.25 mg 05/22/23 21:43 05/22/23 21:55 Carvedilol 6.25 Mg Tablet PO 05/22/23 21:44 6.25 mg ONCE ONE Administration Protocol Diazepam 5 mg 05/22/23 21:42 05/22/23 21:56 Diazepam 2 Mg Tablet PO 05/22/23 21:43 5 mg ONCE ONE Administration Medical Decision Making Medical Decision Making [facility] Narrative: 53 yo female with PMH of back pain, migraines, HURD, gastroparesis, GERD, obesity, DM, HLD, HTN here with c/o atraumatic L flank pain and some urinary symptoms at this time just had labs with PCP - CBC reassuring, BMP normal, will add on magnesium and troponin/TSH given palpitations - her BP is very high and she has some new changes on EKG but no CP/SOB suspect EKG changes due to strain from BP will lower BP and repeat EKG, CT scan for possible mass/renal colic Differential Diagnosis Differential Diagnoses: The differential diagnosis associated with the presentation includes elevated HTN, strain, renal colic Admission/Observation Consideration of admission/observation: Escalation of care including admission/observation considered CT scan, BP and labs all normal - will repeat EKG Lab Data [facility] Lab Attestation statement: I reviewed the patient's lab results. Labs: Lab Results 05/22/23 05/22/23 Range/Units 22:06 23:30 POC Glucose 92 (60-115) mg/dL Magnesium 2.0 (1.6-2.6) mg/dL Troponin I High Sens < 2.7 (<3.5-17.0) ng/L TSH 2.44 (0.32-4.0) uIU/mL Urine Color Yellow Urine Appearance Clear Urine pH 5.5 (5.0-9.0) Ur Specific [place] >= 1.030 H (1.005-1.025) Urine Protein Negative (Neg-Trace) mg/dL Urine Glucose (UA) >=1000 H (Negative) mg/dL Urine Ketones Negative (Negative) mg/dL Urine Blood Negative (Negative) Urine Nitrite Negative (Negative) Ur Leukocyte Esterase Negative (Negative) Urine RBC 3-5 H (0-2) /HPF Urine WBC 0-5 (0-5) /HPF Ur Squamous Epith Cells 0-2 (0-2) /HPF Urine Bacteria None Seen (None Seen) Hyaline Casts 0-2 (0-2) /LPF Independent Interpretation I performed an independent interpretation of an: EKG and CT Scan (no acute findings) Interpretation: Rate: 74 Rhythm: NSR [place]: normal , LVH Normal P waves. Normal ROSIE. Normal QRS complex. ST T wave : no PRAMOD, inverted t waves V1, V3 - V6 qTC: normal prior studies: no acute ischemia The study has been interpreted contemporaneously by me. EKG#2 Rate: 61 Rhythm: NSR [place]: normal Normal P waves. Normal ROSIE. Normal QRS complex. ST T wave : inverted t waves in V1 and V3, no PRAMOD qTC: normal prior studies: stickers had to be adjusted innapropriate placement The study has been interpreted contemporaneously by me. . Radiology Impression Discussion of test interpretation with radiology: I have reviewed the radiologist's reading. Independent Historian Clinical information obtained from an independent historian. History obtained from or confirmed by: Spouse External Record Review External record reviewed: Inpatient record and Prior outpatient labs Prescription Management I considered prescription management with: Other Chronic Conditions Patient?s care impacted by: Hypertension Discharge Plan Discharge Clinical Impression: Acute left flank pain, Heart palpitations HTN (hypertension) Qualifiers: Hypertension type: unspecified Qualified Code(s): I10 - Essential (primary) hypertension Patient Disposition: Home, Self-Care Instructions: Heart Palpitations (ED), Chronic Hypertension (ED), Flank Pain (ED) Additional Instructions: your blood pressure came down, labs and urine reassuring. return for worsening symptoms, no improvement in pain or any other concerns. please follow up with your doctor LUNG BASES: The visualized lung bases are unremarkable. LIVER, GALLBLADDER, AND BILIARY TREE: The liver is normal in size, shape, and attenuation. No focal hepatic lesion or biliary ductal dilatation is present. The gallbladder is unremarkable with no evidence of radiopaque gallstones, gallbladder wall thickening, or obvious pericholecystic inflammatory changes. PANCREAS: Unremarkable. SPLEEN: Unremarkable. ADRENAL GLANDS: Unremarkable. KIDNEYS AND URETERS: The kidneys are normal in size, shape, and attenuation. No hydronephrosis, hydroureter, or calculi seen. No perinephric stranding. Stable 1 cm cyst midpole right kidney. No follow-up imaging is recommended for simple renal cyst. BLADDER: Unremarkable. GASTROINTESTINAL TRACT: The small and large bowel are unremarkable. The appendix is unremarkable. ABDOMINAL WALL: No significant hernia is appreciated. LYMPH NODES: Normal. VASCULAR: Unremarkable. PELVIC VISCERA: Unremarkable. OSSEOUS STRUCTURES: Unremarkable. CT/CT abdomen pelvis wo IV con IMPRESSION: No significant abnormality. Fleischner guidelines were followed. Prescriptions: New diazepam [Valium] 5 mg tablet 5 mg PO BID PRN (Reason: muscle spasm) Qty: 10 0RF Rx Instructions: partial fill is okay No Action (DME) blood pressure monitor Kit See Rx Instructions .Route Qty: 1 0RF Rx Instructions: As directed (DME) lancets 28 gauge misc See Rx Instructions topical DIRECTED Qty: 100 0RF Rx Instructions: Test once daily (DME) blood-glucose meter [FreeStyle Lite Meter] Kit See Rx Instructions .Route Qty: 1 0RF Rx Instructions: As directed aspirin 81 mg tablet,delayed release (DR/EC) 81 mg PO DAILY Qty: 90 1RF meclizine 25 mg tablet 25 mg PO DAILY PRN (Reason: dizziness) 15 Days Qty: 15 2RF zolpidem 10 mg tablet 10 mg PO BEDTIME PRN (Reason: insomnia) 90 Days Qty: 90 0RF (DME) FreeStyle Lite Strips Strip See Rx Instructions .ROUTE .COMPLEX Qty: 100 0RF Dose Instruction: USE TODOS [place] HAM Rx Instructions: USE TODOS [place] HAM cholecalciferol (vitamin D3) 50 mcg (2,000 unit) capsule 50 mcg PO DAILY 90 Days Qty: 90 3RF simvastatin 20 mg tablet 20 mg PO BEDTIME Qty: 90 1RF hydrochlorothiazide 25 mg tablet 25 mg PO DAILY Qty: 90 0RF acetaminophen [Tylenol Extra Strength] 500 mg tablet 500 mg PO Q6H PRN (Reason: pain or fever) Qty: 20 0RF calcipotriene 0.005 % solution topical loratadine [Claritin] 10 mg tablet 10 mg PO DAILY PRN (Reason: allergy symptoms) 90 Days Qty: 90 3RF albuterol sulfate 2.5 mg /3 mL (0.083 %) solution for nebulization 2.5 mg continuous nebulization QID PRN (Reason: shortness of breath or wheezing) (DME) RIGHT WRIST SPLINT (large) large See Rx Instructions .Route .MEDSUPPLY Qty: 1 0RF Rx Instructions: As directed albuterol sulfate 90 mcg/actuation HFA aerosol inhaler 2 puff PO QID PRN Advair HFA 230-21 mcg/actuation HFA aerosol inhaler 2 puff inhalation Q12H 30 Days Qty: 1 6RF carvedilol 3.125 mg tablet 6.25 mg PO BID Rx Instructions: must administer with a meal/food clotrimazole-betamethasone 1-0.05 % cream 1 appl topical BID 7 Days Qty: 45 0RF Rx Instructions: apply twice a day clindamycin phosphate 1 % lotion topical DAILY triamcinolone acetonide 0.1 % ointment 1 appl topical BID Qty: 30 1RF Rx Instructions: not for use on the face. sumatriptan succinate 50 mg tablet 50 mg PO Q2-4H PRN (Reason: migraine headache) Rx Instructions: do not exceed 4 doses per 24 hrs sennosides [Senna Laxative] 8.6 mg tablet 17.2 mg PO BEDTIME Qty: 60 6RF pantoprazole [Protonix] 40 mg tablet,delayed release (DR/EC) 40 mg PO BID 30 Days Qty: 60 6RF famotidine [Pepcid] 40 mg tablet 40 mg PO BEDTIME Qty: 30 6RF Synjardy 12.5-500 mg tablet 1 tab PO BID sucralfate [Carafate] 1 gram tablet 2 g PO DAILY Qty: 60 3RF Referrals: Name,MD Matt [Primary Care Provider] - 1 week Print Language: Montenegrin
[2023-05-22 21:27] VITALS: BP 203/92; PULSE 83; RESP 16; TEMP 36.9; O2SAT 99
--- NOTE | 2023-05-22 21:43 | ECG_ITS ---
Test Reason : PALPITATIONS Blood Pressure : / mmHG Vent. Rate : 074 BPM Atrial Rate : 074 BPM P-R Int : 166 ms QRS Dur : 092 ms QT Int : 406 ms P-R-T Axes : 014 -12 -06 degrees QTc Int : 450 ms Normal sinus rhythm Moderate voltage criteria for LVH, may be normal variant ( R in aVL , [facility] product ) ST & T wave abnormality, consider anterior ischemia Abnormal ECG When compared with ECG of 02-JUN-2022 12:12, T wave inversion now evident in Anterior leads Referred By: Salma Orlando Electronically Signed By:UMM RODRIGUEZ
[2023-05-22] MEDS: carvediloL 6.25 MG TABLET PO (21:55)
[2023-05-22] MEDS: diazePAM 2 MG TABLET 5 MG PO (21:56)
--- NOTE | 2023-05-22 21:59 | PC.NURSE ---
pt medicated per mar.
--- NOTE | 2023-05-22 22:02 | PC.NURSE ---
this rn assumed care of pt. pt a&ox4, respirations even and unlabored, pt reporting left flank pain for 2 weeks that she had been seen for previously at [facility]. pt reports [facility] did not treat the pain. pt reports being seen at primary care doctor today who nury her labs and urine for her. pt reports primary care doctor informed pt to go to the ED for elevated blood pressure. pt currently denies chest pain, n/v/d. pt reports no pain with urination. pt normal sinus on tele at this time 66-70.
[2023-05-22 22:12] LABS: Appearance Urine Clear; Color Urine Yellow; Glucose Urine UA >=1000 mg/dL (Negative); Leukocyte Esterase Urine Negative (Negative); Nitrite Urine Negative (Negative); PH 5.5 (5.0-9.0); Specific Gravity - Urine >= 1.030 (1.005-1.025); UMIC TRIGGER UACC YES; Urine Blood Negative (Negative); Urine Ketones Negative (Negative); Urine Protein Negative (Neg-Trace)
[2023-05-22 22:26] LABS: Bacteria Urine None Seen (None Seen); Hyaline Casts Urine 0-2 /LPF (0-2); Squamous Epithelial Cell Urine 0-2 /HPF (0-2); WBC Urine 0-5 /HPF (0-5)
[2023-05-22 22:39] LABS: Troponin-I High Sensitivity < 2.7 ng/L (<3.5-17.0)
[2023-05-22 22:49] LABS: TSH reflex Free T4 2.44 uIU/mL (0.32-4.0)
[2023-05-22 23:33] VITALS: BP 158/57; PULSE 71; RESP 14; O2SAT 98
[2023-05-22 23:33] LABS: Glucose, Whole Blood 92 mg/dL (60-115)
--- NOTE | 2023-05-22 23:34 | ECG_ITS ---
Test Reason : REPEAT EKG Blood Pressure : / mmHG Vent. Rate : 061 BPM Atrial Rate : 061 BPM P-R Int : 172 ms QRS Dur : 094 ms QT Int : 444 ms P-R-T Axes : 069 -08 006 degrees QTc Int : 446 ms Sinus rhythm with Premature supraventricular complexes Minimal voltage criteria for LVH, may be normal variant ( R in aVL ) Nonspecific T wave abnormality Abnormal ECG When compared with ECG of 22-MAY-2023 21:56, Premature supraventricular complexes are now Present Nonspecific T wave abnormality has replaced inverted T waves in Anterior leads Referred By: Salma Orlando Electronically Signed By:UMM RODRIGUEZ
[2023-05-23 00:51] VITALS: BP 121/61; PULSE 88; RESP 18; O2SAT 98
== END 2023-05-23 00:53 | disposition home or self-care (01) ==
PROVIDERS: Emergency Provider Emergency Medicine; PCP Internal Medicine Geriatric Medicine
DX: R00.2 Palpitations (principal); R10.9 Unspecified abdominal pain; I10 Essential (primary) hypertension; R11.2 Nausea with vomiting, unspecified; R10.2 Pelvic and perineal pain; Z79.899 Other long term (current) drug therapy
CPT/HCPCS: 36415; 74176; 81001; 82947; 83735; 84443; 84484; 93005; 99284; 99285

== ENCOUNTER → 2023-05-22 21:43 | Outpatient (BNV) | payer MEDICAID, SELFPAY | PROVIDERS: Emergency Provider Emergency Medicine; PCP Internal Medicine Geriatric Medicine; Visit Provider Internal Medicine | DX: I47.1 Supraventricular tachycardia (principal); R94.31 Abnormal electrocardiogram [ECG] [EKG] | CPT/HCPCS: 93010 ==

== ENCOUNTER 2023-05-26 14:32 | Outpatient (AMB) | payer MEDICAID, SELFPAY ==
--- NOTE | 2023-05-26 14:47 | A.OFFVIS_ITS ---
Intake Vital Signs 05/26/23 14:48 Height 5 ft 3 in Weight 219 lb BMI 38.8 BP 150/92 H Blood Pressure Location Lt brachial Position Sitting Pulse 72 Pulse Source Pulse Oximeter Intake Visit Reasons: elevated BP/ palpitations Rigging Engineer Required: Yes Rigging Engineer Language: Chancery Clerk Name: stephanie peck [id number] Allergies acetaminophen [From Vicodin] Allergy (Intermediate, Verified 05/26/23 14:51) Palpitations, Itch amoxicillin [Prevpac] Allergy (Intermediate, Verified 05/26/23 14:51) itchy throat hydrocodone [From Vicodin] Allergy (Intermediate, Verified 05/26/23 14:51) Palpitations, Itch ibuprofen [From Motrin] Allergy (Intermediate, Verified 05/26/23 14:51) UPSET STOMACH, abdominal pain lansoprazole [Prevpac] Allergy (Intermediate, Verified 05/26/23 14:51) itchy throat morphine [MORPHINE] Allergy (Intermediate, Verified 05/26/23 14:51) PALPATATIONS, PANIC ATTACKS, nauseas,panic attack, heart palpitations omeprazole [From PRILOSEC] Allergy (Intermediate, Verified 05/26/23 14:51) ITCHY THROAT pravastatin [PRAVASTATIN] Allergy (Intermediate, Verified 05/26/23 14:51) UNKNOWN rosuvastatin [From CRESTOR] Allergy (Intermediate, Verified 05/26/23 14:51) UNKNOWN terbinafine [TERBINAFINE] Allergy (Intermediate, Verified 05/26/23 14:51) UNKNOWN atorvastatin [From LIPITOR] Allergy (Unknown, Verified 05/26/23 14:51) UNKNOWN clarithromycin [From BIAXIN] Adverse Reaction (Intermediate, Verified 05/26/23 14:51) ABD PAIN, DIARRHEA gabapentin [GABAPENTIN] Adverse Reaction (Intermediate, Verified 05/26/23 14:51) UNKNOWN, nausea, dizziness levofloxacin [LEVOFLOXACIN] Adverse Reaction (Intermediate, Verified 05/26/23 14:51) PALPITATIONS tylenol with codeine Allergy (Unknown, Uncoded 03/05/23 13:02) fast heart rate Medication List - Last Reconciled 05/26/23 by MAGDALENE Mcnulty acetaminophen (Tylenol Extra Strength) 500 mg PO Q6H PRN albuterol sulfate 2.5 mg continuous nebulization QID PRN albuterol sulfate 90 mcg/actuation 2 puffs PO QID PRN aspirin 81 mg PO DAILY blood pressure monitor As directed blood sugar diagnostic (FreeStyle Lite Strips) USE [facility] blood-glucose meter (FreeStyle Lite Meter kit) As directed calcipotriene 0.005% topical carvedilol 6.25 mg PO BID cholecalciferol (vitamin D3) 50 mcg PO DAILY 90 days clindamycin phosphate 1% topical DAILY clotrimazole-betamethasone 1-0.05 % 1 appl topical BID 7 days diazepam (Valium) 5 mg PO BID PRN empagliflozin-metformin 12.5-500 mg (Synjardy) 1 tab PO BID famotidine (Pepcid) 40 mg PO BEDTIME fluticasone propion-salmeterol 230-21 mcg/actuation (Advair HFA) 2 puffs inhalation Q12H 30 days hydrochlorothiazide 25 mg PO DAILY lancets Test once daily loratadine (Claritin) 10 mg PO DAILY PRN 90 days meclizine 25 mg PO DAILY PRN 15 days pantoprazole (Protonix) 40 mg PO BID 30 days [RIGHT WRIST SPLINT (large) As directed] sennosides (Senna Laxative) 17.2 mg (2 x 8.6 mg) PO BEDTIME simvastatin 20 mg PO BEDTIME sucralfate (Carafate) 2 grams (2 x 1 gram) PO DAILY sumatriptan succinate 50 mg PO Q2-4H PRN triamcinolone acetonide 0.1% 1 appl topical BID zolpidem 10 mg PO BEDTIME PRN 90 days HPI elevated BP/ palpitations HPI Details Farrah is a 53-year-old female with past medical history of hypertension, hyperlipidemia, diabetes, morbid obesity, nonobstructive coronary artery disease who presents for follow-up. Today she reports that she has been having discomfort that wraps around her from her left back along her left side. She says she has been evaluated in the emergency room and had a CT scan which was normal. She states this pain is continual and causing her blood pressure to be elevated. She has a follow-up with her PCP this week. No chest discomfort at rest or with activity. No shortness of breath, PND, orthopnea or edema. She is noticing heart palpitations which she relates to the pain as well. She feels her heart beating fast causing her concern. No presyncope, syncope, falls. Her is present. She has been taking her meds as directed. Her activity level has been limited recently due to her pain. ON LICENSE OF [facility] Medical History Irritable bowel syndrome with diarrhea Allergic rhinitis Lumbar degenerative disc disease Breast pain during Carpal tunnel syndrome Arthritis Morbid obesity with BMI of 40.0-44.9, adult Insomnia Diabetes mellitus Benign essential hypertension Polyarthralgia Fibromyalgia Mixed hyperlipidemia Candidiasis of mouth and esophagus Thoracic spondylosis Surgical History Hx of colonoscopy History of esophagogastroduodenoscopy (EGD) History of dermoid cyst excision History of excision of lamina of cervical vertebra for decompression of spinal cord H/O hemorrhoidectomy History of appendectomy Family History Father NIDDY (non-insulin dependent diabetes mellitus in young) Cardiovascular disease Obesity Cancer of unknown origin Colon cancer Mother CAD (coronary artery disease) NIDDY (non-insulin dependent diabetes mellitus in young) Brother Schizophrenia Degenerative disc disease H/O lymph node cancer Sister Breast cancer Colon cancer Paternal Grandmother Ovarian cancer, Onset Age: 45 Daughter Fibromyalgia Hypertension Cancer of unknown origin Other Mental health problem Social History Household Members: None Housing: Apartment Alcohol intake: never Patient Tobacco Use Status: Never used Tobacco e-Cigarette/Vaping Use: Never Used Second Hand Smoke Exposure: No service: No Current occupational status: disabled 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 Sexual orientation: Straight/Heterosexual Gender identity: Female Cognitive needs: No Hearing needs: Yes Vision needs: Yes Female Reproductive History Menstrual Age of Menarche: 11 Review of Systems Const All systems reviewed & are unremarkable except as noted in HPI and below ENT Denies dizziness Card Denies chest pain, Denies chest pain at rest, Denies chest pain with activity, Reports rapid heart rate, Denies pedal edema, Denies edema, Denies leg edema, Denies lightheadedness, Reports palpitations, Denies dyspnea, Denies dyspnea on exertion and Denies orthopnea Resp Denies cough, Denies dyspnea and Denies dyspnea on exertion GI Details: left flank area discomfort that wraps around left side. hurts to touch. Denies hematochezia and Denies change in stool character Musc Denies abnormal gait, Denies limited range of motion, Denies muscle cramps, Denies muscle weakness, Denies numbness, Denies radiating pain into limb, Denies stiffness and Denies tingling Neuro Denies abnormal gait, Denies dizziness, Denies numbness and Denies tingling Endo Reports palpitations Physical Exam Vital Signs: Last Vital Signs Pulse 72 05/26/23 14:48 BP 150/92 H 05/26/23 14:48 BMI result Body Mass Index 38.8 Const General: cooperative, healthy appearing, comfortable and no acute distress Orientation/consciousness: patient oriented x3 Neck Neck: Yes normal visual inspection Resp Effort & Inspection: normal respiratory effort Auscultation: clear to auscultation bilaterally, no crackles, no rales, no rhonchi and no wheezes Cardio Jugular venous distension: no JVD Rate: regular rate Rhythm: regular rhythm Heart sounds: S1 normal heart sound present, S2 normal heart sound present, no murmurs and no rubs Back/Spine/Pelvis Other: tenderness to palpation along left mid back to left lateral thorax - winces and grimaces Neuro General: patient oriented x3 Extrem General: Yes normal to inspection Psych Appearance: grossly normal Mental Status: mental status grossly normal Speech and movement: Normal speech and movement present Assessment & Plan Assessment & Plan (1) Heart palpitations: Code(s): R00.2 - Palpitations Plan: Reports of heart palpitations where her heart is beating fast for several minutes. No presyncope, syncope. She expresses concern and feels her pain is contributing to this. Last EKG done on 05/22/2023 showed sinus rhythm with PACs, rate 61. Heart tones are regular on exam today. She may be experiencing extrasystoles or even sinus tachycardia related to her pain. Will check a Holter monitor to assess for any concerning arrhythmias. Plan to call her with results. (2) CAD (coronary artery disease): Code(s): I25.10 - Atherosclerotic heart disease of [place] coronary artery without angina pectoris Plan: History of atypical chest discomfort. Cardiac risk factors of hypertension, hyperlipidemia, diabetes and morbid obesity. A CTA of the coronary arteries was done on 11/15/2021 showing nonobstructive LAD stenosis, 30%, no definite stenosis elsewhere. No reports of anginal sounding symptoms at this time. Continue with risk factor modification and med management for stable CAD including aspirin 81 mg daily. Continue statin therapy with ideal LDL goal less than 70. Labs are followed by her PCP. Hemoglobin A1c goal less than 7. Leslie blood pressure goal less than 130/85. Blood pressure is elevated this visit likely related to pain is described above. She has a PCP visit later this week. She continues on carvedilol 6.25 mg b.i.d.. Blood pressure remains elevated then carvedilol dose can be increased. Continue hydrochlorothiazide. Cardiology follow-up in 6 months, sooner if needed. (3) Left flank pain: Code(s): R10.9 - Unspecified abdominal pain Plan: Discomfort described by ER is left flank pain however seems to originate higher in her left back and wraps around her thorax. Area is tender to palpation which she says is her fibromyalgia. She describes the pain as being more inside. A recent CT scan of abdomen shows no acute findings. Our record includes a health problem of thoracic herniated disc which could possibly be contributing to this symptom. She is going to follow with her PCP. Will forward my note to her primary care doctor for his review. (4) Benign essential hypertension: Code(s): I10 - Essential (primary) hypertension Plan: As above (5) Mixed hyperlipidemia: Code(s): E78.2 - Mixed hyperlipidemia Plan: Leslie LDL goal less than 70. Currently on simvastatin. No recent lipid profile for review. Labs are followed by her PCP. [facility] [facility] [place] on 05/22/2023 showed normal LFTs. Recommend lipid profile if not done recently. Plan Time spent on chart review, documentation, interview and assessment Orders: Orders ECG 3 day holter monitor Today R00.2 - Palpitations Coding Level of Care Code Est Pt Level 4 (02734) Diagnoses Heart palpitations R00.2 CAD (coronary artery disease) I25.10 Left flank pain R10.9 Benign essential hypertension I10 Mixed hyperlipidemia E78.2 Time Spent (min) 30
[2023-05-26 14:48] VITALS: BP 150/92; PULSE 72; BMI 38.8
== END 2023-05-26 15:28 | disposition home or self-care (01) ==
PROVIDERS: PCP Internal Medicine Geriatric Medicine; Visit Provider Nurse Practitioner Family
DX: R00.2 Palpitations (principal); I25.10 Atherosclerotic heart disease of native coronary artery without angina pectoris; R10.9 Unspecified abdominal pain; I10 Essential (primary) hypertension; E78.2 Mixed hyperlipidemia
CPT/HCPCS: 99214

== ENCOUNTER → 2023-05-26 14:32 | Outpatient (BNVA) | payer MEDICAID, SELFPAY | PROVIDERS: PCP Internal Medicine Geriatric Medicine; Visit Provider Nurse Practitioner Family ==

== ENCOUNTER 2023-05-26 15:06 | Outpatient (REF) | payer MEDICAID, SELFPAY ==
[2023-05-26 16:39] LABS: CDiff Gene PCR NEGATIVE (Negative)
[2023-05-27 14:25] LABS: Adenovirus F 40/41 Not Detected (Not Detect.); Astrovirus Not Detected (Not Detect.); Campylobacter Not Detected (Not Detect.); Cryptosporidium Not Detected (Not Detect.); Cyclospora cayetanensis Not Detected (Not Detect.); E. coli EAEC Not Detected (Not Detect.); E. coli EPEC Detected (Not Detect.); E. coli ETEC Not Detected (Not Detect.); E. coli STEC Not Detected (Not Detect.); Entamoeba histolytica Not Detected (Not Detect.); Giardia lamblia Not Detected (Not Detect.); Norovirus GI/GII Not Detected (Not Detect.); Plesiomonas shigelloides Not Detected (Not Detect.); Rotavirus A Not Detected (Not Detect.); Salmonella Not Detected (Not Detect.); Sapovirus Not Detected (Not Detect.); Shigella sp./EIEC Not Detected (Not Detect.); Vibrio Not Detected (Not Detect.); Vibrio Cholerae Not Detected (Not Detect.); Yersinia enterocolitica Not Detected (Not Detect.)
== END 2023-05-26 15:07 | disposition home or self-care (01) ==
LOC: HO.LNP 15:06
PROVIDERS: Visit Provider Nurse Practitioner
DX: R00.2 Palpitations (principal); I25.10 Atherosclerotic heart disease of native coronary artery without angina pectoris; I10 Essential (primary) hypertension; R10.9 Unspecified abdominal pain; R19.7 Diarrhea, unspecified; E66.01 Morbid (severe) obesity due to excess calories; E78.2 Mixed hyperlipidemia; Z68.38 Body mass index [BMI] 38.0-38.9, adult
CPT/HCPCS: 87493; 87507; 99212

== ENCOUNTER 2023-05-29 13:31 | Outpatient (AMB) | payer MEDICAID, SELFPAY ==
--- NOTE | 2023-05-29 13:39 | MHC.OFFVIS ---
Intake Vital Signs 05/29/23 13:52 Height 5 ft 3 in Weight 222 lb BMI 39.3 BP 147/90 H Blood Pressure Location Lt brachial Position Sitting Respiration 61 H Intake Visit Reasons: 1 week follow up Intake Note: Patient returns today in follow up of labs. CC:Patient reports gets diarrhea when she takes the Synjardy and is now having headaches. She states the left mid back pain she has been having is now radiating to her lower left back. Senior Insight Manager International Required: No Accompanied by: Self / Same As Patient Allergies acetaminophen [From Vicodin] Allergy (Intermediate, Verified 05/29/23 13:55) Palpitations, Itch amoxicillin [Prevpac] Allergy (Intermediate, Verified 05/29/23 13:55) itchy throat hydrocodone [From Vicodin] Allergy (Intermediate, Verified 05/29/23 13:55) Palpitations, Itch ibuprofen [From Motrin] Allergy (Intermediate, Verified 05/29/23 13:55) UPSET STOMACH, abdominal pain lansoprazole [Prevpac] Allergy (Intermediate, Verified 05/29/23 13:55) itchy throat morphine [MORPHINE] Allergy (Intermediate, Verified 05/29/23 13:55) PALPATATIONS, PANIC ATTACKS, nauseas,panic attack, heart palpitations omeprazole [From PRILOSEC] Allergy (Intermediate, Verified 05/29/23 13:55) ITCHY THROAT pravastatin [PRAVASTATIN] Allergy (Intermediate, Verified 05/29/23 13:55) UNKNOWN rosuvastatin [From CRESTOR] Allergy (Intermediate, Verified 05/29/23 13:55) UNKNOWN terbinafine [TERBINAFINE] Allergy (Intermediate, Verified 05/29/23 13:55) UNKNOWN atorvastatin [From LIPITOR] Allergy (Unknown, Verified 05/29/23 13:55) UNKNOWN clarithromycin [From BIAXIN] Adverse Reaction (Intermediate, Verified 05/29/23 13:55) ABD PAIN, DIARRHEA gabapentin [GABAPENTIN] Adverse Reaction (Intermediate, Verified 05/29/23 13:55) UNKNOWN, nausea, dizziness levofloxacin [LEVOFLOXACIN] Adverse Reaction (Intermediate, Verified 05/29/23 13:55) PALPITATIONS tylenol with codeine Allergy (Unknown, Uncoded 03/05/23 13:02) fast heart rate HPI 1 week follow up HPI Details Assessment & Plan (1) Acute diarrhea: Comment: Possibly IBS - M but with getting stool samples to rule out acute infection or other causative pathology Code(s): R19.7 - Diarrhea, unspecified (2) Gastroparesis: Comment: she has been unable to tolerate Reglan due to dizziness so her only real options to consider gastric pacemaker going forward if her symptoms become severe. Aeb Code(s): K31.84 - Gastroparesis (3) GERD (gastroesophageal reflux disease): Code(s): K21.9 - Gastro-esophageal reflux disease without esophagitis Qualifiers: Esophagitis presence: without esophagitis Qualified Code(s): K21.9 - Gastro-esophageal reflux disease without esophagitis (4) H. pylori infection: Comment: H. pylori infection TREATMENT RESISTANT Notes: She has failed all rescue regimens I can think of, we will manage her symptoms as well as we can and consider if new treatment options develop. Code(s): A04.8 - Other specified bacterial intestinal infections (5) Left flank pain: Code(s): R10.9 - Unspecified abdominal pain Plan Malaysian #[id number] Her primary care provider took her off of Trulicity but put her on Jardiance. Since then her heartburn has greatly improved however she is having severe watery diarrhea. Along with this she is also reporting symptoms of dizziness, tachycardia, and generalized weakness with ?by limbs feeling heavy. ? I am uncertain if these symptoms may be related to dehydration and electrolyte abnormalities or medication side effect. She is also reporting pain in the left upper quadrant the wraps around to her back that she feet says feels like a kidney infection. However, this kind of pain is sometimes also associated with Jardiance. I am going to get Chem panel, a GI stool study panel to make sure this is an infection, CRP, and of course a urinalysis. For now on the start her on Carafate to see if we can slow the diarrhea and improve her p.o. intake of fluids. I want to see her sometime next week. Orders: Orders CDiff Gene PCR Today R19.7 - Diarrhea, unspecified C Reactive Protein Today R19.7 - Diarrhea, unspecified UA CC w/rflx Micro + Cult Today R19.7 - Diarrhea, unspecified Creatinine Today R19.7 - Diarrhea, unspecified GI Panel Today R19.7 - Diarrhea, unspecified Comprehensive Met. Panel Today R19.7 - Diarrhea, unspecified Complete Blood Cou nt Auto Diff Today R19.7 - Diarrhea, unspecified Medications: New sucralfate (Carafa te) 2 grams (2 x 1 gra m) PO DAILY 60 tab s 3RF R19.7 - Diarrhea, unspecified LABS: Laboratory Tests 05/22/23 05/22/23 15:19 22:06 WBC 9.2 Hgb 13.5 Hct 42.6 Estimated GFR > 60 Total Bilirubin 0.8 AST 24 ALT 29 Alkaline Phosphata se 135 H C-Reactive Protein 0.55 H TSH 2.44 Laboratory Tests 05/25/23 17:00 C. difficile Tox B Gene NEGATIVE 05/26/23-[address]: ORDERED: GI Panel Test Result Flag Refere nce Si te Campylobacter No t Detected Not Det ect. P. shigelloides Not Detected Not Detec t. S almonella Not De tected Not Detect. Vib carl Not Dete cted Not Detect. Vibri o Cholerae Not Detect ed Not Detect. Y. ente rocolit. Not Detected Not Detect. E. coli E AEC Not Detected N ot Detect. E. coli EPE C Detected A Not Detect. E. coli ETEC Not Detected Not D etect. E. coli STEC No t Detected Not Det ect. E. coli O157 Not a pplicable Not Detec t. E. coli contai girish the O157 anti gen are a subset o f Shiga-lik e toxin-producing E. coli (STEC). Shigella/EIEC Not D etected Not Detect . Cr yptosporidium Not Det ected Not Detect. Cycl ospora Not Detec [place] Not Detect. E. his [place] Not Detecte d Not Detect. Giardia lamblia Not Detected Not Detect. Adenovirus Not Detected No t Detect. Astrovirus Not Detected Not Detect. Norovirus N ot Detected Not De tect. Rotavirus A Not Detected Not Dete ct. Sapovirus Not D etected Not Detect . 05/22/23-[address]: Matt Pantoja MD ORDERED: [facility] w Micros QUERIES: Colle ction Date: Col lection Time: 2152 S ource: Urine, Johanna n Catch Test Result Flag Refere nce Si te Ur Color Yellow Ur Appear C lear P H 5. 5 5.0-9.0 Ur Glu >=100 0 H Negative mg/d L Urine Blood Negative Negative Spec Gr avity Ur >= 1.030 H 1.005-1.025 Urine Pro tein Negative N eg-Trace mg/dL Urine [place] es Negative Neg ative mg/dL Ur Nitrite Negative Negat christin Ur Tremaine Esterase Negative Negativ e Ur RBC 3-5 H 0-2 /HPF U r WBC 0- 5 0-5 /HPF Ur Squam Epi 0-2 0-2 /HPF Ur Ba ct None Seen None Seen Ur Hyal ine Call Center Manager 0-2 0-2 /LPF TODAYS VISIT Malaysian Hunter Collins Her diarrhea is resolving but not the left flank pain that radiates to her back. Despite her reported allergy to clarithromycin, as GI sx, she wants to try an abx. Since levoquin produces more resp allergies, I think we will try zithromax and see if she tolerates it. I also suggest a probiotic. Educated her about possible pathos of infection. Let her know the [facility] may call her to try to trace any involved businesses. ROV 8 weeks. [facility] Medical History Irritable bowel syndrome with diarrhea Allergic rhinitis Lumbar degenerative disc disease Breast pain during Carpal tunnel syndrome Arthritis Morbid obesity with BMI of 40.0-44.9, adult Insomnia Diabetes mellitus Benign essential hypertension Polyarthralgia Fibromyalgia Mixed hyperlipidemia Candidiasis of mouth and esophagus Thoracic spondylosis Surgical History Hx of colonoscopy History of esophagogastroduodenoscopy (EGD) History of dermoid cyst excision History of excision of lamina of cervical vertebra for decompression of spinal cord H/O hemorrhoidectomy History of appendectomy Family History Father NIDDY (non-insulin dependent diabetes mellitus in young) Cardiovascular disease Obesity Cancer of unknown origin Colon cancer Mother CAD (coronary artery disease) NIDDY (non-insulin dependent diabetes mellitus in young) Brother Schizophrenia Degenerative disc disease H/O lymph node cancer Sister Breast cancer Colon cancer Paternal Grandmother Ovarian cancer, Onset Age: 45 Daughter Fibromyalgia Hypertension Cancer of unknown origin Other Mental health problem Social History Household Members: None Housing: Apartment Alcohol intake: never Patient Tobacco Use Status: Never used Tobacco e-Cigarette/Vaping Use: Never Used Second Hand Smoke Exposure: No service: No Current occupational status: disabled 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 Sexual orientation: Straight/Heterosexual Gender identity: Female Cognitive needs: No Hearing needs: Yes Vision needs: Yes Female Reproductive History Menstrual Age of Menarche: 11 Review of Systems Const Denies fatigue, Denies fever(s), Denies night sweats, Denies poor appetite and Denies weight loss Eyes Details: glasses Reports requires corrective lenses ENT Reports Normal hearing present, Denies dental pain, Denies dysphagia, Denies hearing loss, Denies mouth pain, Denies odynophagia, Denies throat swelling, Denies tongue swelling and Reports other (Dentition adequate) Card Reports no additional complaints Resp Reports no additional complaints GI Reports abdominal pain, Denies melena, Denies bloating, Denies hematochezia, Denies constipation, Denies GI cramping, Denies dysphagia, Denies excessive flatus, Denies early satiety, Reports heartburn, Denies diarrhea, Reports loose stools, Denies nausea, Denies odynophagia, Denies vomiting and Denies hematemesis Skin/Breast Denies pruritus, Denies lesions, Denies rash and Denies jaundice Neuro Reports Normal hearing present and Denies Abnormal speech present Endo Denies fatigue Aller/Immun Denies throat swelling and Denies tongue swelling Physical Exam Vital Signs: Last Vital Signs Resp 61 H 05/29/23 13:52 BP 147/90 H 05/29/23 13:52 BMI result Body Mass Index 39.3 Const General: cooperative, no acute distress, well developed and well groomed Nutritional Appearance: well nourished and obese Orientation/consciousness: oriented to person, oriented to place and oriented to time Limitations: No language barrier HEENT Head: Yes normocephalic and Yes atraumatic Eyes General: appearance normal, both eyes and all related structures Pupils: Equal, round and reactive pupils present Neck Neck: Yes normal visual inspection and Yes no lymphadenopathy Thyroid: Thyroid normal Resp Effort & Inspection: normal respiratory effort and able to speak in complete sentences Auscultation: clear to auscultation bilaterally Cardio Rate: regular rate Rhythm: regular rhythm Heart sounds: Normal, physiologic split S2 sound present Peripheral pulses: radial pulses present and posterior tibial pulses present GI Inspection: No distended, Yes Abdominal panniculus present and Yes obesity Palpation (GI): Soft to palpation, Tenderness to palpation present (GI) (left flank to back), no guarding, not rigid and No hepatosplenomegaly present Percussion: Yes normal to percussion Auscultation: normal bowel sounds Rectal Exam - Female: deferred Skin General skin exam: no rashes or lesions noted, turgor normal, skin not dry, no jaundice, No spider nevi and no striae Rashes: no rashes Nails: normal Neuro General: oriented to person, oriented to place and oriented to time Cranial nerves: Yes Equal, round and reactive pupils present and Yes Normal hearing present Speech: No Abnormal speech present Extrem General: Yes normal to inspection, No clubbing, No cyanosis and No edema Psych Appearance: grossly normal and well kempt Mental Status: mental status grossly normal Speech and movement: Normal speech and movement present Affect: normal affect Attitude: cooperative Thought process: Normal thought process present and not confabulating Thought content: Normal thought content present Insight: Fair insight present (Psych) and Limited insight present (Psych) Judgement: Fair judgement present (Psych) and Limited judgement present (Psych) Assessment & Plan Assessment & Plan (1) E coli enteritis: Code(s): A04.4 - Other intestinal Escherichia coli infections Plan: Malaysian # Neil Live Her diarrhea is resolving but not the left flank pain that radiates to her back. Despite her reported allergy to clarithromycin, as GI sx, she wants to try an abx. Since levoquin produces more resp allergies, I think we will try zithromax and see if she tolerates it. I also suggest a probiotic. Educated her about possible pathos of infection. Let her know the [facility] may call her to try to trace any involved businesses. ROV 8 weeks. Medications: New azithromycin 500 mg PO DAILY 5 days 5 tabs 0RF A04.4 - Other intestinal Escherichia coli infections Coding Level of Care Code Est Pt Level 3 (96474) Diagnoses E coli enteritis A04.4
[2023-05-29 13:52] VITALS: BP 147/90; RESP 61; BMI 39.3
== END 2023-05-29 14:42 | disposition home or self-care (01) ==
PROVIDERS: PCP Internal Medicine Geriatric Medicine; Visit Provider Nurse Practitioner
DX: A04.4 Other intestinal Escherichia coli infections (principal)
CPT/HCPCS: 99213

== ENCOUNTER → 2023-05-29 13:31 | Outpatient (BNVA) | payer MEDICAID, SELFPAY | PROVIDERS: PCP Internal Medicine Geriatric Medicine; Visit Provider Nurse Practitioner | DX: A04.4 Other intestinal Escherichia coli infections (principal) | CPT/HCPCS: 99212 ==

== ENCOUNTER 2023-06-03 15:03 | Outpatient (AMB) | payer MEDICAID, SELFPAY ==
--- NOTE | 2023-06-03 15:15 | MHC.OFFVIS ---
Intake Vital Signs 06/03/23 15:21 Height 5 ft 3 in Weight 224 lb BMI 39.7 BP 138/79 Blood Pressure Location Rt brachial Position Sitting Pulse 60 Intake Visit Reasons: Scalp lesions, umbilical hernia, RLQ pain Intake Note: This patient presents for Scalp lesions, umbilical hernia, RLQ pain assessment. Patient c/o; reports no changes. Animal Ride Manager Required: Yes Animal Ride Manager Language: Tile Classifier Name: Montez Information Interpreted: non-clinical & clinical Accompanied by: Other Relationship Allergies acetaminophen [From Vicodin] Allergy (Intermediate, Verified 06/03/23 15:22) Palpitations, Itch amoxicillin [Prevpac] Allergy (Intermediate, Verified 06/03/23 15:22) itchy throat hydrocodone [From Vicodin] Allergy (Intermediate, Verified 06/03/23 15:22) Palpitations, Itch ibuprofen [From Motrin] Allergy (Intermediate, Verified 06/03/23 15:22) UPSET STOMACH, abdominal pain lansoprazole [Prevpac] Allergy (Intermediate, Verified 06/03/23 15:22) itchy throat morphine [MORPHINE] Allergy (Intermediate, Verified 06/03/23 15:22) PALPATATIONS, PANIC ATTACKS, nauseas,panic attack, heart palpitations omeprazole [From PRILOSEC] Allergy (Intermediate, Verified 06/03/23 15:22) ITCHY THROAT pravastatin [PRAVASTATIN] Allergy (Intermediate, Verified 06/03/23 15:22) UNKNOWN rosuvastatin [From CRESTOR] Allergy (Intermediate, Verified 06/03/23 15:22) UNKNOWN terbinafine [TERBINAFINE] Allergy (Intermediate, Verified 06/03/23 15:22) UNKNOWN atorvastatin [From LIPITOR] Allergy (Unknown, Verified 06/03/23 15:22) UNKNOWN clarithromycin [From BIAXIN] Adverse Reaction (Intermediate, Verified 06/03/23 15:22) ABD PAIN, DIARRHEA gabapentin [GABAPENTIN] Adverse Reaction (Intermediate, Verified 06/03/23 15:22) UNKNOWN, nausea, dizziness levofloxacin [LEVOFLOXACIN] Adverse Reaction (Intermediate, Verified 06/03/23 15:22) PALPITATIONS tylenol with codeine Allergy (Unknown, Uncoded 06/03/23 15:22) fast heart rate Medication List - Last Reconciled 06/03/23 by Christ Gustafson MD acetaminophen (Tylenol Extra Strength) 500 mg PO Q6H PRN albuterol sulfate 2.5 mg continuous nebulization QID PRN albuterol sulfate 90 mcg/actuation 2 puffs PO QID PRN aspirin 81 mg PO DAILY azithromycin 500 mg PO DAILY 5 days blood pressure monitor As directed blood sugar diagnostic (FreeStyle Lite Strips) USE [facility] blood-glucose meter (FreeStyle Lite Meter kit) As directed calcipotriene 0.005% topical carvedilol 6.25 mg PO BID cholecalciferol (vitamin D3) 50 mcg PO DAILY 90 days clindamycin phosphate 1% topical DAILY clotrimazole-betamethasone 1-0.05 % 1 appl topical BID 7 days diazepam (Valium) 5 mg PO BID PRN empagliflozin-metformin 12.5-500 mg (Synjardy) 1 tab PO BID famotidine (Pepcid) 40 mg PO BEDTIME fluticasone propion-salmeterol 230-21 mcg/actuation (Advair HFA) 2 puffs inhalation Q12H 30 days hydrochlorothiazide 25 mg PO DAILY lancets Test once daily loratadine (Claritin) 10 mg PO DAILY PRN 90 days meclizine 25 mg PO DAILY PRN 15 days pantoprazole (Protonix) 40 mg PO BID 30 days [RIGHT WRIST SPLINT (large) As directed] sennosides (Senna Laxative) 17.2 mg (2 x 8.6 mg) PO BEDTIME simvastatin 20 mg PO BEDTIME sucralfate (Carafate) 2 grams (2 x 1 gram) PO DAILY sumatriptan succinate 50 mg PO Q2-4H PRN triamcinolone acetonide 0.1% 1 appl topical BID zolpidem 10 mg PO BEDTIME PRN 90 days HPI Scalp lesions, umbilical hernia, RLQ pain HPI Details 53-year-old female here because of a scalp mass as well as because of an umbilical hernia. She describes this lump on her scalp for several months and she says that this has been bothersome to her would pain and discomfort but there is no drainage. She does not describe any increase in size She has a known umbilical hernia from a previous CT scan. She wants this checked as well. She says that she does not really feel a lump on the area. She denies any pain. She has morbid obesity and diabetes. [facility] Medical History (Updated 06/03/23 @ 15:42 by Christ Gustasfon MD) Umbilical hernia Scalp mass Irritable bowel syndrome with diarrhea Allergic rhinitis Lumbar degenerative disc disease Breast pain during Carpal tunnel syndrome Arthritis Morbid obesity with BMI of 40.0-44.9, adult Insomnia Diabetes mellitus Benign essential hypertension Polyarthralgia Fibromyalgia Mixed hyperlipidemia Candidiasis of mouth and esophagus Thoracic spondylosis Surgical History Hx of colonoscopy History of esophagogastroduodenoscopy (EGD) History of dermoid cyst excision History of excision of lamina of cervical vertebra for decompression of spinal cord H/O hemorrhoidectomy History of appendectomy Family History Father NIDDY (non-insulin dependent diabetes mellitus in young) Cardiovascular disease Obesity Cancer of unknown origin Colon cancer Mother CAD (coronary artery disease) NIDDY (non-insulin dependent diabetes mellitus in young) Brother Schizophrenia Degenerative disc disease H/O lymph node cancer Sister Breast cancer Colon cancer Paternal Grandmother Ovarian cancer, Onset Age: 45 Daughter Fibromyalgia Hypertension Cancer of unknown origin Other Mental health problem Social History Household Members: None Housing: Apartment Alcohol intake: never Patient Tobacco Use Status: Never used Tobacco e-Cigarette/Vaping Use: Never Used Second Hand Smoke Exposure: No service: No Current occupational status: disabled 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 Sexual orientation: Straight/Heterosexual Gender identity: Female Cognitive needs: No Hearing needs: Yes Vision needs: Yes Female Reproductive History Menstrual Age of Menarche: 11 Review of Systems Const Denies chills and Denies fever(s) Card Denies chest pain, Denies dyspnea and Denies dyspnea on exertion Resp Denies cough, Denies dyspnea and Denies dyspnea on exertion GI Denies hematochezia and Denies change in bowel habits Denies hematuria Musc Denies back pain and Denies limited range of motion Neuro Denies focal weakness and Denies convulsions Psych Reports anxiety, Denies depression and Denies mood swings Physical Exam Vital Signs: Last Vital Signs Pulse 60 06/03/23 15:21 BP 138/79 06/03/23 15:21 BMI result Body Mass Index 39.7 Const Other: Morbidly obese General: comfortable and no acute distress Orientation/consciousness: patient oriented x3 HEENT Other: Scalp mass, about 1 cm in size, on the frontal aspect, mobile, well-defined Neck Neck: Yes no lymphadenopathy Resp Auscultation: clear to auscultation bilaterally Cardio Rhythm: regular rhythm GI Other: No palpable mass on the umbilicus even with Valsalva,, no tenderness Palpation (GI): Soft to palpation, nontender and no guarding Neuro General: patient oriented x3 Assessment & Plan Assessment & Plan (1) Scalp mass: Code(s): R22.0 - Localized swelling, mass and lump, head Plan: She has a well-defined scalp mass, about 1 cm in size. This seems to be a lipoma versus a cyst. She wants this excised. I explained the technique of excision under local anesthesia. I reviewed the risks, including but not limited to bleeding and infections, as well as the benefits and alternatives. She says she wants to proceed. This will be scheduled at the minor procedure room. (2) Umbilical hernia: Code(s): K42.9 - Umbilical hernia without obstruction or gangrene Plan: She has had CT scans being a very small fat containing umbilical hernia. The fascial defect is less than 1 cm. She says she does not feel any tenderness or mass at this time. I did review with her the technique of repair of this umbilical hernia. I discussed the risks including but not limited to bleeding, infections, bowel injury, recurrence, as well as the benefits and alternatives. I did explain to her that these perioperative risks especially recurrence are much higher with her in view of her morbid obesity She says that the hernia is not bothering her at this time and she wants to hold off. She will continue to review the option of repair with me down the line. Coding Level of Care Code Est Pt Level 3 (42071) Diagnoses Scalp mass R22.0 Umbilical hernia K42.9
[2023-06-03 15:21] VITALS: BP 138/79; PULSE 60; BMI 39.7
== END 2023-06-03 15:53 | disposition home or self-care (01) ==
PROVIDERS: PCP Internal Medicine Geriatric Medicine; Visit Provider Surgery
DX: R22.0 Localized swelling, mass and lump, head (principal); K42.9 Umbilical hernia without obstruction or gangrene
CPT/HCPCS: 99213

== ENCOUNTER → 2023-06-03 15:03 | Outpatient (BNVA) | payer MEDICAID, SELFPAY | PROVIDERS: PCP Internal Medicine Geriatric Medicine; Visit Provider Surgery | DX: R22.0 Localized swelling, mass and lump, head (principal); K42.9 Umbilical hernia without obstruction or gangrene | CPT/HCPCS: 99212 ==

== ENCOUNTER → 2023-06-17 14:40 | Outpatient (REF) | payer MEDICAID, SELFPAY | LOC: HO.CARD 14:40 | PROVIDERS: PCP Internal Medicine Geriatric Medicine; Visit Provider Nurse Practitioner Family | DX: R00.2 Palpitations (principal) | CPT/HCPCS: 93242 ==

== ENCOUNTER → 2023-06-17 14:42 | Outpatient (BNV) | payer MEDICAID, SELFPAY | PROVIDERS: PCP Internal Medicine Geriatric Medicine; Visit Provider Internal Medicine Cardiovascular Disease | DX: R00.1 Bradycardia, unspecified (principal) | CPT/HCPCS: 93227 ==

== ENCOUNTER 2023-07-08 18:04 | Outpatient (REF) | payer MEDICAID, SELFPAY ==
[2023-07-08 18:33] LABS: Appearance Urine Clear; Color Urine Yellow; Glucose Urine UA >=1000 mg/dL (Negative); Leukocyte Esterase Urine Trace (Negative); Nitrite Urine Negative (Negative); Specific Gravity - Urine >= 1.030 (1.005-1.025); UMIC TRIGGER UACC YES; Urine Blood Negative (Negative); Urine Ketones Negative (Negative); Urine Protein Negative (Neg-Trace)
[2023-07-08 18:49] LABS: Creatinine Urine 70.13 mg/dL; Microalbumin Urine < 5.0 mg/L
[2023-07-08 18:54] LABS: RBC Urine 0-2 /HPF (0-2)
[2023-07-08 18:56] LABS: Bacteria Urine Trace (None Seen); Hyaline Casts Urine 0-2 /LPF (0-2); UACC Culture Trigger YES
== END 2023-07-08 18:05 | disposition home or self-care (01) ==
LOC: HO.HHCLNP 18:04
PROVIDERS: Visit Provider Internal Medicine Geriatric Medicine
DX: R30.0 Dysuria (principal); E11.49 Type 2 diabetes mellitus with other diabetic neurological complication
CPT/HCPCS: 81001; 82570; 87086

== ENCOUNTER 2023-07-23 12:16 | Outpatient (REF) | payer MEDICAID, SELFPAY ==
[2023-07-23 12:42] VITALS: BP 173/80; PULSE 62; RESP 16; TEMP 36.4; O2SAT 99; BMI 38.8
--- NOTE | 2023-07-23 13:10 | W.PM.OPN ---
Operative Note Operative Note Date of Service: 07/23/23 Narrative: Preop diagnosis: Scalp cyst Postop diagnosis: Scalp cyst Procedure: Excision of scalp cyst under local anesthesia Surgeon: Christ Gustafson MD The patient is a 53-year-old female with note of a 1 cm cystic mass on the frontal aspect the scalp consistent with a Pilar cyst. She understood the technique of excision under local anesthesia. She was aware of the risks, benefits, and alternatives She was brought to the minor procedure room. She was placed in reclining position. The area of the cyst was prepped and draped. Lidocaine 1% was used for local anesthesia. I made an incision on the skin overlying this cyst using blade 15. This carried down through the full-thickness of the skin and subcutaneous fat until was able to visualize the cyst capsule. I sharply dissected the cyst capsule off of the rest of the subcutaneous layer until this was delivered. This measured about 1 cm in diameter. This was sent as specimen. I closed the incision with full-thickness nylon 3-0 simple interrupted sutures. Bacitracin dressings were applied. The procedure was completed. She tolerated the procedure well. There were no immediate complications. Estimated blood loss about 10 cc She was given wound care instructions. She was given instructions for follow-up as well.
[2023-07-23 13:11] VITALS: BP 178/68; PULSE 62; RESP 16; O2SAT 98
== END 2023-07-23 12:17 | disposition home or self-care (01) ==
LOC: HO.MS 12:16
PROVIDERS: PCP Internal Medicine Geriatric Medicine; Visit Provider Surgery
PROC: (CPT 11422; principal; 2023-07-23 13:00)
DX: L72.11 Pilar cyst (principal)
CPT/HCPCS: 11422; 88304

== ENCOUNTER → 2023-07-23 12:16 | Outpatient (BNV) | payer MEDICAID, SELFPAY | PROVIDERS: PCP Internal Medicine Geriatric Medicine; Visit Provider Surgery | DX: L72.11 Pilar cyst (principal) | CPT/HCPCS: 11421 ==

== ENCOUNTER 2023-08-06 12:55 | Outpatient (AMB) | payer MEDICAID, SELFPAY ==
--- NOTE | 2023-08-06 13:04 | MHC.OFFVIS ---
Intake Intake Visit Reasons: S/P excision scalp mass Intake Note: This patient presents for a post-op assessment status post excision scalp mass. Patient c/o; reports one of the incision is very tender, reports no draining. Telephone Order Clerk Room Service Required: Yes Telephone Order Clerk Room Service Language: Hebrew Information Interpreted: non-clinical & clinical Accompanied by: other Allergies acetaminophen [From Vicodin] Allergy (Intermediate, Verified 08/06/23 13:06) Palpitations, Itch amoxicillin [Prevpac] Allergy (Intermediate, Verified 08/06/23 13:06) itchy throat hydrocodone [From Vicodin] Allergy (Intermediate, Verified 08/06/23 13:06) Palpitations, Itch ibuprofen [From Motrin] Allergy (Intermediate, Verified 08/06/23 13:06) UPSET STOMACH, abdominal pain lansoprazole [Prevpac] Allergy (Intermediate, Verified 08/06/23 13:06) itchy throat morphine [MORPHINE] Allergy (Intermediate, Verified 08/06/23 13:06) PALPATATIONS, PANIC ATTACKS, nauseas,panic attack, heart palpitations omeprazole [From PRILOSEC] Allergy (Intermediate, Verified 08/06/23 13:06) ITCHY THROAT pravastatin [PRAVASTATIN] Allergy (Intermediate, Verified 08/06/23 13:06) UNKNOWN rosuvastatin [From CRESTOR] Allergy (Intermediate, Verified 08/06/23 13:06) UNKNOWN terbinafine [TERBINAFINE] Allergy (Intermediate, Verified 08/06/23 13:06) UNKNOWN atorvastatin [From LIPITOR] Allergy (Unknown, Verified 08/06/23 13:06) UNKNOWN clarithromycin [From BIAXIN] Adverse Reaction (Intermediate, Verified 08/06/23 13:06) ABD PAIN, DIARRHEA gabapentin [GABAPENTIN] Adverse Reaction (Intermediate, Verified 08/06/23 13:06) UNKNOWN, nausea, dizziness levofloxacin [LEVOFLOXACIN] Adverse Reaction (Intermediate, Verified 08/06/23 13:06) PALPITATIONS tylenol with codeine Allergy (Unknown, Uncoded 08/06/23 13:06) fast heart rate HPI S/P excision scalp mass HPI Details She underwent excision of a scalp cyst under local anesthesia last July 21, 2023. She tolerated the procedure well. She currently denies significant complaints. [facility] Medical History (Updated 06/03/23 @ 15:42 by Christ Gustafson MD) Umbilical hernia Scalp mass Irritable bowel syndrome with diarrhea Allergic rhinitis Lumbar degenerative disc disease Breast pain during Carpal tunnel syndrome Arthritis Morbid obesity with BMI of 40.0-44.9, adult Insomnia Diabetes mellitus Benign essential hypertension Polyarthralgia Fibromyalgia Mixed hyperlipidemia Candidiasis of mouth and esophagus Thoracic spondylosis Surgical History Hx of colonoscopy History of esophagogastroduodenoscopy (EGD) History of dermoid cyst excision History of excision of lamina of cervical vertebra for decompression of spinal cord H/O hemorrhoidectomy History of appendectomy Family History Father NIDDY (non-insulin dependent diabetes mellitus in young) Cardiovascular disease Obesity Cancer of unknown origin Colon cancer Mother CAD (coronary artery disease) NIDDY (non-insulin dependent diabetes mellitus in young) Brother Schizophrenia Degenerative disc disease H/O lymph node cancer Sister Breast cancer Colon cancer Paternal Grandmother Ovarian cancer, Onset Age: 45 Daughter Fibromyalgia Hypertension Cancer of unknown origin Other Mental health problem Social History Household Members: None Housing: Apartment Alcohol intake: never Patient Tobacco Use Status: Never used Tobacco e-Cigarette/Vaping Use: Never Used Second Hand Smoke Exposure: No service: No Current occupational status: disabled 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 Sexual orientation: Straight/Heterosexual Gender identity: Female Cognitive needs: No Hearing needs: Yes Vision needs: Yes Female Reproductive History Menstrual Age of Menarche: 11 Review of Systems Const Denies chills and Denies fever(s) Card Denies chest pain, Denies dyspnea and Denies dyspnea on exertion Resp Denies cough, Denies dyspnea and Denies dyspnea on exertion GI Denies hematochezia and Denies change in bowel habits Denies hematuria Musc Denies back pain and Denies limited range of motion Neuro Denies focal weakness and Denies convulsions Psych Denies depression and Denies mood swings Physical Exam Const General: comfortable and no acute distress HEENT Other: Excision site on the scalp is well healed, not infected Assessment & Plan Assessment & Plan (1) Scalp mass: Code(s): R22.0 - Localized swelling, mass and lump, head Plan: Status post excision. Her incision is well healed. I removed her sutures. Her path report shows a Pilar cyst. She can follow up on a p.r.n. basis. Coding Level of Care Code Global (26972) Diagnoses Scalp mass R22.0
== END 2023-08-06 13:09 | disposition home or self-care (01) ==
PROVIDERS: PCP Internal Medicine Geriatric Medicine; Visit Provider Surgery
DX: R22.0 Localized swelling, mass and lump, head (principal)
CPT/HCPCS: 99024

== ENCOUNTER → 2023-08-06 12:55 | Outpatient (BNVA) | payer MEDICAID, SELFPAY | PROVIDERS: PCP Internal Medicine Geriatric Medicine; Visit Provider Surgery | DX: R22.0 Localized swelling, mass and lump, head (principal) | CPT/HCPCS: 99212 ==

== ENCOUNTER 2023-08-11 16:30 | Outpatient (REF) | payer MEDICAID, SELFPAY | END 2023-08-11 16:31 | disposition home or self-care (01) | LOC: HO.HHCLNP 16:30 | PROVIDERS: Visit Provider Nurse Practitioner Family | DX: R30.9 Painful micturition, unspecified (principal) | CPT/HCPCS: 87086 ==

== ENCOUNTER 2023-08-18 14:06 | Outpatient (AMB) | payer MEDICAID, SELFPAY ==
--- NOTE | 2023-08-18 14:24 | A.OFFVIS_ITS ---
Intake Vital Signs 08/18/23 14:35 Height 5 ft 3 in Weight 217 lb BMI 38.4 BP 173/74 H Blood Pressure Location Lt brachial Position Sitting Pulse 63 Intake Visit Reasons: Follow up 8 weeks Intake Note: Farrah returns in follow up of E Coli enteritis. CC: Patient reports feeling like phlegm coming up her esophagus and staying in her throat. She also c/o feeling like she is choking more often with foods, and increased gas. Supervisor Telephone Information Required: Yes Accompanied by: Self / Same As Patient Allergies acetaminophen [From Vicodin] Allergy (Intermediate, Verified 08/18/23 14:40) Palpitations, Itch amoxicillin [Prevpac] Allergy (Intermediate, Verified 08/18/23 14:40) itchy throat hydrocodone [From Vicodin] Allergy (Intermediate, Verified 08/18/23 14:40) Palpitations, Itch ibuprofen [From Motrin] Allergy (Intermediate, Verified 08/18/23 14:40) UPSET STOMACH, abdominal pain lansoprazole [Prevpac] Allergy (Intermediate, Verified 08/18/23 14:40) itchy throat morphine [MORPHINE] Allergy (Intermediate, Verified 08/18/23 14:40) PALPATATIONS, PANIC ATTACKS, nauseas,panic attack, heart palpitations omeprazole [From PRILOSEC] Allergy (Intermediate, Verified 08/18/23 14:40) ITCHY THROAT pravastatin [PRAVASTATIN] Allergy (Intermediate, Verified 08/18/23 14:40) UNKNOWN rosuvastatin [From CRESTOR] Allergy (Intermediate, Verified 08/18/23 14:40) UNKNOWN terbinafine [TERBINAFINE] Allergy (Intermediate, Verified 08/18/23 14:40) UNKNOWN atorvastatin [From LIPITOR] Allergy (Unknown, Verified 08/18/23 14:40) UNKNOWN clarithromycin [From BIAXIN] Adverse Reaction (Intermediate, Verified 08/18/23 14:40) ABD PAIN, DIARRHEA gabapentin [GABAPENTIN] Adverse Reaction (Intermediate, Verified 08/18/23 14:40) UNKNOWN, nausea, dizziness levofloxacin [LEVOFLOXACIN] Adverse Reaction (Intermediate, Verified 08/18/23 14:40) PALPITATIONS tylenol with codeine Allergy (Unknown, Uncoded 08/06/23 13:06) fast heart rate HPI Follow up 8 weeks HPI Details Assessment & Plan (1) E coli enteritis: Code(s): A04.4 - Other intestinal Escherichia coli infections Plan: Denise Collins Her diarrhea is resolving but not the left flank pain that radiates to her back. Despite her reported allergy to clarithromycin, as GI sx, she wants to try an abx. Since levoquin produces more resp allergies, I think we will try zithromax and see if she tolerates it. I also suggest a probiotic. Educated her about possible pathos of infection. Let her know the BOH may call her to try to trace any involved businesses. ROV 8 weeks. Medications: New azithromycin 500 mg PO DAILY 5 days 5 tabs 0RF A04.4 - Other inte stinal Escherichia coli infections TODAYS VISIT Denise Collins She is having trouble with food getting stuck in the voice box to area above sternal notch. After time and with water this will slowly go down. Stool consistency is variable but no diarrhea except if she eats an offending foods such as greasy foods. She continues on her pantoprazole twice a day, her sucralfate, and she has senna if she needs for constipation. She had an endoscopy in 2019 for similar presentation and there was no noted esophagitis or abnormality at that time. She did have a similar presentation many years ago with a barium swallow that is seem to show difficulty swallowing a variety of foods and this was done in conjunction with speech therapy. I think will get another modified barium swallow to see what might be going on. She denies any change in her medications, and the only new illness is a urine tract infection for which she is being treated with Bactrim. Return office visit in 3 months and or after the barium swallow [facility] Medical History Umbilical hernia Scalp mass Irritable bowel syndrome with diarrhea Allergic rhinitis Lumbar degenerative disc disease Breast pain during Carpal tunnel syndrome Arthritis Morbid obesity with BMI of 40.0-44.9, adult Insomnia Diabetes mellitus Benign essential hypertension Polyarthralgia Fibromyalgia Mixed hyperlipidemia Candidiasis of mouth and esophagus Thoracic spondylosis Surgical History Hx of colonoscopy History of esophagogastroduodenoscopy (EGD) History of dermoid cyst excision History of excision of lamina of cervical vertebra for decompression of spinal cord H/O hemorrhoidectomy History of appendectomy Family History Father NIDDY (non-insulin dependent diabetes mellitus in young) Cardiovascular disease Obesity Cancer of unknown origin Colon cancer Mother CAD (coronary artery disease) NIDDY (non-insulin dependent diabetes mellitus in young) Brother Schizophrenia Degenerative disc disease H/O lymph node cancer Sister Breast cancer Colon cancer Paternal Grandmother Ovarian cancer, Onset Age: 45 Daughter Fibromyalgia Hypertension Cancer of unknown origin Other Mental health problem Social History Household Members: None Housing: Apartment Alcohol intake: never Patient Tobacco Use Status: Never used Tobacco e-Cigarette/Vaping Use: Never Used Second Hand Smoke Exposure: No service: No Current occupational status: disabled 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 Sexual orientation: Straight/Heterosexual Gender identity: Female Cognitive needs: No Hearing needs: Yes Vision needs: Yes Female Reproductive History Menstrual Age of Menarche: 11 Review of Systems Const Denies fatigue, Denies fever(s), Denies night sweats, Denies poor appetite and Denies weight loss ENT Reports Normal hearing present, Denies dental pain, Reports dysphagia, Denies hearing loss, Denies mouth pain, Denies odynophagia, Denies throat swelling, Denies tongue swelling and Reports other (Dentition adequate) Card Reports no additional complaints Resp Reports no additional complaints GI Details: Denies abdominal pain, Denies melena, Denies bloating, Denies hematochezia, Denies constipation, Denies GI cramping, Reports dysphagia, Denies excessive flatus, Denies early satiety, Reports dyspepsia, Reports heartburn, Denies diarrhea, Denies nausea, Denies odynophagia, Denies vomiting and Denies hematemesis Reports urinary urgency Skin/Breast Denies pruritus, Denies lesions, Denies rash and Denies jaundice Neuro Reports Normal hearing present and Denies Abnormal speech present Endo Denies fatigue Aller/Immun Denies throat swelling and Denies tongue swelling Physical Exam Vital Signs: Last Vital Signs Pulse 63 08/18/23 14:35 BP 173/74 H 08/18/23 14:35 BMI result Body Mass Index 38.4 Const General: cooperative, no acute distress, well developed and well groomed Nutritional Appearance: well nourished and obese morbidly obese Orientation/consciousness: oriented to person, oriented to place and oriented to time Limitations: language barrier HEENT Head: Yes normocephalic and Yes atraumatic Eyes General: appearance normal, both eyes and all related structures Pupils: Equal, round and reactive pupils present Neck Neck: Yes normal visual inspection and Yes no lymphadenopathy Thyroid: Thyroid normal Resp Effort & Inspection: normal respiratory effort and able to speak in complete sentences Auscultation: clear to auscultation bilaterally Cardio Rate: regular rate Rhythm: regular rhythm Heart sounds: Normal, physiologic split S2 sound present Peripheral pulses: radial pulses present and posterior tibial pulses present GI Inspection: No distended, Yes Abdominal panniculus present and Yes obesity Palpation (GI): Soft to palpation, nontender, no guarding, not rigid and No hepatosplenomegaly present Percussion: Yes normal to percussion Auscultation: normal bowel sounds Rectal Exam - Female: deferred Skin General skin exam: no rashes or lesions noted, turgor normal, skin not dry, no jaundice, No spider nevi and no striae Rashes: no rashes Nails: normal Neuro General: oriented to person, oriented to place and oriented to time Cranial nerves: Yes Equal, round and reactive pupils present and Yes Normal hearing present Speech: No Abnormal speech present Extrem General: Yes normal to inspection, No clubbing, No cyanosis and No edema Psych Appearance: grossly normal and well kempt Mental Status: mental status grossly normal Speech and movement: Normal speech and movement present Affect: normal affect Attitude: cooperative Thought process: Normal thought process present and not confabulating Thought content: Normal thought content present Insight: Limited insight present (Psych) Judgement: Limited judgement present (Psych) Assessment & Plan Assessment & Plan (1) E coli enteritis: Code(s): A04.4 - Other intestinal Escherichia coli infections (2) Oropharyngeal dysphagia: Code(s): R13.12 - Dysphagia, oropharyngeal phase (3) Constipation: Code(s): K59.00 - Constipation, unspecified (4) Gastroparesis: Comment: she has been unable to tolerate Reglan due to dizziness so her only real options to consider gastric pacemaker going forward if her symptoms become severe. Aeb Code(s): K31.84 - Gastroparesis (5) GERD (gastroesophageal reflux disease): Code(s): K21.9 - Gastro-esophageal reflux disease without esophagitis Qualifiers: Esophagitis presence: without esophagitis Qualified Code(s): K21.9 - Gastro-esophageal reflux disease without esophagitis (6) H. pylori infection: Comment: H. pylori infection TREATMENT RESISTANT Notes: She has failed all rescue regimens I can think of, we will manage her symptoms as well as we can and consider if new treatment options develop. Code(s): A04.8 - Other specified bacterial intestinal infections Plan Slovenian #Tom Live She is having trouble with food getting stuck in the voice box to area above sternal notch. After time and with water this will slowly go down. Stool consistency is variable but no diarrhea except if she eats an offending foods such as greasy foods. She continues on her pantoprazole twice a day, her sucralfate, and she has senna if she needs for constipation. She had an endoscopy in 2019 for similar presentation and there was no noted esophagitis or abnormality at that time. She did have a similar presentation many years ago with a barium swallow that is seem to show difficulty swallowing a variety of foods and this was done in conjunction with speech therapy. I think will get another modified barium swallow to see what might be going on. She denies any change in her medications, and the only new illness is a urine tract infection for which she is being treated with Bactrim. Return office visit in 3 months and or after the barium swallow Orders: Orders FL barium swallow modified Today R13.12 - Dysphagia, oropharyngeal phase Coding Level of Care Code Est Pt Level 3 (51461) Diagnoses E coli enteritis A04.4 Oropharyngeal dysphagia R13.12 Constipation K59.00 Gastroparesis K31.84 Gastroesophageal reflux disease without esophagitis K21.9 Esophagitis presence: without esophagitis H. pylori infection A04.8
[2023-08-18 14:35] VITALS: BP 173/74; PULSE 63; BMI 38.4
== END 2023-08-18 15:11 | disposition home or self-care (01) ==
PROVIDERS: PCP Internal Medicine Geriatric Medicine; Visit Provider Nurse Practitioner
DX: A04.4 Other intestinal Escherichia coli infections (principal); R13.12 Dysphagia, oropharyngeal phase; K59.00 Constipation, unspecified; K31.84 Gastroparesis; K21.9 Gastro-esophageal reflux disease without esophagitis; A04.8 Other specified bacterial intestinal infections
CPT/HCPCS: 99213

== ENCOUNTER → 2023-08-18 14:06 | Outpatient (BNVA) | payer MEDICAID, SELFPAY | PROVIDERS: PCP Internal Medicine Geriatric Medicine; Visit Provider Nurse Practitioner | DX: K59.00 Constipation, unspecified (principal); K31.84 Gastroparesis; K21.9 Gastro-esophageal reflux disease without esophagitis; A04.4 Other intestinal Escherichia coli infections; A04.8 Other specified bacterial intestinal infections; R13.12 Dysphagia, oropharyngeal phase | CPT/HCPCS: 99212 ==

== ENCOUNTER 2023-09-09 12:14 | Outpatient (REF) | payer MEDICAID, SELFPAY ==
[2023-09-09 13:30] LABS: Alanine Aminotransferase 31 U/L (0-31); Albumin Level 4.1 g/dL (3.5-5.0); Alkaline Phosphatase 128 U/L (39-117); Anion Gap 9 (12-20); Aspartate Amino Transferase 25 U/L (5-31); Bilirubin Total 0.7 mg/dL (0.0-1.0); Blood Urea Nitrogen 12 mg/dL (9-16); Calcium 9.3 mg/dL (8.4-10.2); Carbon Dioxide 31 mmol/L (22-29); Chloride 108 mmol/L (96-108); Cholesterol 223 mg/dL (<200); Estimated Glomerular Filt Rate > 60; Glucose Random 121 mg/dL (60-115); HDL Cholesterol 35 mg/dL (>40); LDL Cholesterol Calculated 143 mg/dL (<100); Potassium 4.1 mmol/L (3.3-5.1); Sodium 144 mmol/L (135-145); Total Protein 7.4 g/dL (6.5-8.0); Triglycerides 228 mg/dL (<150)
[2023-09-09 14:29] LABS: Appearance Urine Clear; Color Urine Yellow; Glucose Urine UA >=1000 mg/dL (Negative); Leukocyte Esterase Urine Negative (Negative); Nitrite Urine Negative (Negative); Specific Gravity - Urine >= 1.030 (1.005-1.025); UMIC TRIGGER UACC YES; Urine Blood Negative (Negative); Urine Ketones Negative (Negative); Urine Protein Negative (Neg-Trace)
[2023-09-09 14:46] LABS: Bacteria Urine None Seen (None Seen); Hyaline Casts Urine 0-2 /LPF (0-2); RBC Urine 0-2 /HPF (0-2); WBC Urine 0-5 /HPF (0-5)
[2023-09-09 15:07] LABS: Creatinine Urine 120.92 mg/dL; Microalbum/Creatinine Ratio Ur 4.9 ug/mg cr (<30)
== END 2023-09-09 12:15 | disposition home or self-care (01) ==
LOC: HO.LAB 12:14
PROVIDERS: PCP Internal Medicine Geriatric Medicine; Visit Provider Internal Medicine Geriatric Medicine
DX: E11.49 Type 2 diabetes mellitus with other diabetic neurological complication (principal); I10 Essential (primary) hypertension; R30.0 Dysuria
CPT/HCPCS: 36415; 80053; 80061; 81001; 82043; 82570

== ENCOUNTER 2023-10-05 14:17 | Outpatient (REF) | payer MEDICAID, SELFPAY ==
--- NOTE | ~2023-10-05 | FL_ITS ---
EXAMINATION: Modified Barium Swallows CLINICAL INFORMATION: Dysphagia COMPARISON: None TECHNIQUE: Modified barium swallow was performed under lateral fluoroscopy with patient in standing position. Barium mixed with fluids and solids of varying consistencies was administered by the speech pathologist. The exam was recorded in the fluoroscopy suite. FINDINGS: Patient is status post ACDF C5-C7 with anterior plate and screws and interbody graft. No complication evident. 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 No laryngeal penetration or tracheal aspiration was seen during this examination. FLUOROSCOPY TIME: 1 minute 10 seconds Number of Spot Images: 12 cine loops obtained and stored. DOSE AREA PRODUCT: 534 uGy-m2 (microgray-meter squared) FL/FL barium swallow modified IMPRESSION: No laryngeal penetration or tracheal aspiration was seen during this examination. Patient is status post ACDF C5-C7 with anterior plate and screws and interbody graft. No complication evident. 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 Refer to the speech therapy report for further clarification This procedure was performed by Danilo Bangura PA-C, and supervised by Dr. Live
--- NOTE | 2023-10-06 16:46 | MHC.SL.IMP ---
Date of Plan of Treatment: 10/05/23 Onset of Symptoms/Illness: 10/04/22 Date Treatment Started: 10/05/23 Admitting Diagnosis: Dysphagia Primary Speech & Language Diagnosis: R13.10 Dysphagia Secondary Speech & Language Diagnosis: R49.0 Dysphonia Reason for Today's Visit: 21743 Modified Barium Swallow Study Pre-evaluation Dietary Consistencies: Regular Pre-evaluation Liquid Consistency: Thin Pre-evaluation Medication Administration: Whole with Liquid Medical History: Modified Barium Swallow Study Fluoroscopic Evaluation of Swallowing Function CPT Code 01838 Evaluation Year: 2023 Reason for Study: Pt reporting difficulty swallowing. Referring Physician: Geetha FRANCOIS Evaluating Clinician: Zenia Bonds MA, CCC-RADIOLOGY EQUIPMENT SERVICER Study Number: 1 Patient Name: Farrah Yancey Status: Outpatient, Ambulatory Age: 53 Gender: Female Medical History Medical History Umbilical hernia Scalp mass Irritable bowel syndrome with diarrhea Allergic rhinitis Lumbar degenerative disc disease Breast pain during Carpal tunnel syndrome Arthritis Morbid obesity with BMI of 40.0-44.9, adult Insomnia Diabetes mellitus Benign essential hypertension Polyarthralgia Fibromyalgia Mixed hyperlipidemia Candidiasis of mouth and esophagus Thoracic spondylosis Surgical History Hx of colonoscopy History of esophagogastroduodenoscopy (EGD) History of dermoid cyst excision History of excision of lamina of cervical vertebra for decompression of spinal cord H/O hemorrhoidectomy History of appendectomy Current (pre-evaluation) Intake/Diet: Route: PO Diet Grade: Regular Liquid Consistencies: Thin Pre-Study Functional Oral Intake Scale (FOIS): 7- Total oral intake with no restrictions Pain: None reported at time of study SUBJECTIVE: Patient is a 53 year old female referred for a modified barium swallow study by Geetha FRANCOIS from the Gastroenterology office. At her last visit with José Lius a month ago, patient complained of feeling like phlegm was coming up her esophagus and staying in her throat. She also reported increased gas, feeling food stuck at the level of her sternum, and choking more often with food. Today patient endorses globus sensation and describes feeling like her throat is ?tightening.? In addition to experiencing frequent coughing with eating and drinking, patient also reports changes to her voice. She says that her voice has become raspy and that she frequently needs to clear her throat. Frequent throat clearing was noted throughout our exam as patient was talking and during PO intake. Patient?s voice is perceived as moderately gravelly and low in volume. She reports onset of these symptoms more than a year ago. Patient?s history includes umbilical hernia, irritable bowel syndrome, allergic rhinitis, lumbar degenerative disc disease, diabetes, fibromyalgia, and thoracic spondylosis. Oral Motor Exam Facial Symmetry: Symmetrical Mouth Occlusion: Normal Oral-Facial Teeth Characteristics: Intact/Normal Oral-Facial Lip Pucker Description: Normal Oral-Facial Smile (Lips) Description: Normal Oral-Facial Puff Cheeks Description: Normal Tongue Size: Normal Tongue Excursion Description: Normal Tongue Range of Movement Description: Normal Tongue Speed of Movement Description: Normal Tongue Strength of Movement (against opposing pressure): Normal Tongue Movement Characteristics: Normal/Absent Food and Liquid Trials: Oral Impairment: Lip Closure: Did not test Oral Impairment: Tongue Control During Bolus Hold: Did not test Oral Impairment: Bolus Preparation/Mastication: 1=Slow prolonged chewing/mashing with complete re-collection Oral Impairment: Bolus Transport/Lingual Motion: 0=Brisk tongue motion Oral Impairment: Oral Residue: 1=Trace residue lining oral structures Oral Impairment:Initiation of Pharyngeal Swallow: 0=Bolus head at posterior angle of ramus (first hyoid excursion) Pharyngeal Impairment: Soft Palate Elevation: 0=No bolus between soft palate (SP)/pharyngeal wall (PW) Pharyngeal Impairment: Laryngeal Elevation: 1=Partial thyroid cartilage/arytenoids to epiglottic petiole movement Pharyngeal Impairment: Anterior Hyoid Excursion: 1=Partial anterior movement Pharyngeal Impairment: Epiglottic Movement: 0=Complete inversion Pharyngeal Impairment: Laryngeal Vestibular Closure:: 0=Complete: no air/contrast in laryngeal vestibule Pharyngeal Impairment: Pharyngeal Stripping Wave: 0=Present: complete Pharyngeal Impairment: Pharyngeal Contraction: Did not test Pharyngeal Impairment: Pharyngoesophageal Segment Openin=Complete distension and complete duration: no obstruction of flow Pharyngeal Impairment: Tongue Base (TB) Retraction: 1=Trace column of contrast/air between TB and posterior PW Pharyngeal Impairment: Pharyngeal Residue: 1=Trace residue within or on pharyngeal structures Pharyngeal Impairment: Esophageal Clearance Upright Position: Did not test Impressions and Recommendations Clinical Observations: OBJECTIVE: Time-out: performed at 14:45 Evaluation Start: 14:30; Stop: 14:40 Patient Positioning: Standing Viewing Planes: LATERAL ONLY Contrast: MBSImP? Standardized Protocol using commercially prepared, standardized Barium viscosities, including: Varibar? THIN LIQUID (40% w/v, <15 cps) , 1/2 Shortbread Cookie (1 x1 x.25 ) MBSImP ID: [id number] MBSImP Results: Lip closure for intraoral bolus containment could not be assessed due to logistical reasons not related to physiologic impairment. Tongue control during bolus hold could not be assessed due to logistical reasons not related to physiologic impairment. Bolus preparation and mastication resulted in slow, prolonged chewing/mashing but with complete re-collection. Bolus transport/lingual motion was with brisk tongue motion. Oral residue was a trace, lining oral structures. Initiation of the pharyngeal swallow occurred as the bolus head reached the posterior angle of the mandibular ramus. Soft palate elevation resulted in no bolus between the soft palate and the pharyngeal wall. Laryngeal elevation was decreased, with partial superior movement of the thyroid cartilage/partial approximation of the arytenoids to the epiglottic petiole. Anterior hyoid excursion demonstrated partial anterior movement. Epiglottic movement resulted in complete inversion. Laryngeal vestibular closure was complete, as indicated by no air or contrast within the laryngeal vestibule at the height of the swallow. Pharyngeal stripping wave was present and complete. Pharyngeal contraction could not be determined due to logistical reasons not related to physiologic impairment. Pharyngoesophageal segment opening was completely distended for complete duration with no obstruction of bolus flow. Tongue base retraction allowed a trace column of contrast or air between the retracted tongue base and the posterior pharyngeal wall. Pharyngeal residue was a trace within or on pharyngeal structures. Esophageal clearance in the upright position could not be assessed due to logistical reasons not related to physiologic impairment. Oral Impairment Score: 1 (absence of score, component 1component 2) Pharyngeal Impairment Score: 2 (absence of score, component 13) Esophageal Impairment Score: --- (absence of score, component 17) Laryngeal Penetration and Aspiration: Neither penetration nor aspiration was observed in today's study with Cookie, Puree, Thin. Structural Abnormalities Noted: Cervical osteophytes, cervical hardware ASSESSMENT: Clinician Assessment: This exam was performed by the speech pathologist and the radiologist. Patient was standing for lateral view and trialed thin, puree, and regular solid consistencies. Unable to visualize labial seal with imaging. Clinically, patient did not appear to have any spillage beyond the anthony border. Posterior lingual transport was brisk and timely. Mastication was mildly prolonged with a very trace amount of residue coating the tongue post-swallow, which eventually cleared. Pharyngeal swallow trigger was timely. No nasopharyngeal reflux. Complete epiglottic inversion and complete laryngeal vestibular closure with good airway protection. No evidence of aspiration or penetration during this exam. There was trace residue coating the base of tongue and posterior pharyngeal wall. Complete clearance of the valleculae and pyriform sinuses. Liquid Intake Recommendation: Thin Liquid Intake Strategies: Unrestricted Dietary Recommendations: Regular Medication Administration: Whole with Liquid Please contact the pharmacy regarding appropriate crushable or liquid drug formulations that are available whenever modified delivery is recommended. Recommendation for Speech Therapy: NA:Typical Evaluation Text Comment: Intake Recommendations: Route: PO Diet Grade: Regular Liquid Consistencies: Thin Post-Study Functional Oral Intake Scale (FOIS): 7- Total oral intake with no restrictions Swallow in the oral and pharyngeal phases is deemed to be within functional limits. No evidence of aspiration or penetration with intake of liquids and solids during this exam. There was good oral and pharyngeal clearance as well. Patient did exhibit some belching and coughing, particularly after drinking liquids. However, as previously stated, there was adequate airway protection and no significant retention observed. Radiologist noted cervical hardware as well as anterior osteophytes, which may be contributing to patients reported symptoms of globus and sensation of tightness in her throat. No indications at this time for diet modification or dysphagia treatment. Suggested Referrals: The patient might benefit from a referral to: Gastroenterology Indication for Referral: Assess for reflux due to patient?s observed belching, burping, and coughing immediately after drinking liquid. Aspiration was ruled out. Otolaryngology Indication for Referral: Also recommend consultation with Otolaryngology given patient?s dysphonia and chronic throat clearing. [facility] [place] Indication for Referral: Radiologist noted ? anterior cervical osteophyte on this exam. Therapy Recommendations: Therapy will be discontinued Ironing Pleater Clinician/Clinical Fellow: No Supervisory Statement: N/A Speech Language Pathologist: Zenia Bonds M.A., CCC-RADIOLOGY EQUIPMENT SERVICER
== END 2023-10-05 14:18 | disposition home or self-care (01) ==
LOC: HO.XRAY 14:17
PROVIDERS: PCP Internal Medicine Geriatric Medicine; Visit Provider Nurse Practitioner
DX: R13.12 Dysphagia, oropharyngeal phase (principal)
CPT/HCPCS: 74230; 92611

== ENCOUNTER → 2023-10-05 14:30 | Outpatient (BNV) | payer MEDICAID, SELFPAY | PROVIDERS: PCP Internal Medicine Geriatric Medicine; Visit Provider Physician Assistant Surgical | DX: R13.10 Dysphagia, unspecified (principal) | CPT/HCPCS: 74230 ==

== ENCOUNTER 2023-10-21 11:56 | Outpatient (AMB) | payer MEDICAID, SELFPAY ==
--- NOTE | 2023-10-21 12:47 | A.OFFVIS_ITS ---
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 Name: Gaurav [id number] Information Interpreted: non-clinical & clinical Border Guard: Border Guard Present (Nicole) Allergies acetaminophen [From Vicodin] Allergy (Intermediate, Verified 10/21/23 12:50) Palpitations, Itch amoxicillin [Prevpac] Allergy (Intermediate, Verified 10/21/23 12:50) itchy throat hydrocodone [From Vicodin] Allergy (Intermediate, Verified 10/21/23 12:50) Palpitations, Itch ibuprofen [From Motrin] Allergy (Intermediate, Verified 10/21/23 12:50) UPSET STOMACH, abdominal pain lansoprazole [Prevpac] Allergy (Intermediate, Verified 10/21/23 12:50) itchy throat morphine [MORPHINE] Allergy (Intermediate, Verified 10/21/23 12:50) PALPATATIONS, PANIC ATTACKS, nauseas,panic attack, heart palpitations omeprazole [From PRILOSEC] Allergy (Intermediate, Verified 10/21/23 12:50) ITCHY THROAT pravastatin [PRAVASTATIN] Allergy (Intermediate, Verified 10/21/23 12:50) UNKNOWN rosuvastatin [From CRESTOR] Allergy (Intermediate, Verified 10/21/23 12:50) UNKNOWN terbinafine [TERBINAFINE] Allergy (Intermediate, Verified 10/21/23 12:50) UNKNOWN atorvastatin [From LIPITOR] Allergy (Unknown, Verified 10/21/23 12:50) UNKNOWN clarithromycin [From BIAXIN] Adverse Reaction (Intermediate, Verified 10/21/23 12:50) ABD PAIN, DIARRHEA gabapentin [GABAPENTIN] Adverse Reaction (Intermediate, Verified 10/21/23 12:50) UNKNOWN, nausea, dizziness levofloxacin [LEVOFLOXACIN] Adverse Reaction (Intermediate, Verified 10/21/23 12:50) PALPITATIONS tylenol with codeine Allergy (Unknown, Uncoded 08/06/23 13:06) fast heart rate Is last menstrual period known: Yes Last menstrual period: 10/20/22 HPI Comments Details: She is a postmenopausal woman 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 She is doing well with concerns: urine is hot and needs to push hard to release, and frequency. Also lower pelvic pain. Urine dip today revealed 3+ glucose. Admits to a sugar drink intake. Attempting to eat a healthy diet with calcium and vitamin D and stays active with exercise. Currently sexually active. Denies any vaginal irritation. No vaginal bleeding for a year. Last pap smear; 2020. Last mammogram; 2022. Colonoscopy is UTD. Denies any family history of breast, ovarian or colon cancer. [facility] Medical History (Updated 10/21/23 @ 13:05 by Gisella Pena CNM) Encounter for well woman exam with routine gynecological exam Umbilical hernia Scalp mass Irritable bowel syndrome with diarrhea Allergic rhinitis Lumbar degenerative disc disease Breast pain during Carpal tunnel syndrome Arthritis Morbid obesity with BMI of 40.0-44.9, adult Insomnia Diabetes mellitus Benign essential hypertension Polyarthralgia Fibromyalgia Mixed hyperlipidemia Candidiasis of mouth and esophagus Thoracic spondylosis Surgical History Hx of colonoscopy History of esophagogastroduodenoscopy (EGD) History of dermoid cyst excision History of excision of lamina of cervical vertebra for decompression of spinal cord H/O hemorrhoidectomy History of appendectomy Family History (Updated 10/21/23 @ 13:03 by DOTTY Aguilar) Father NIDDY (non-insulin dependent diabetes mellitus in young) Cardiovascular disease Obesity Cancer of unknown origin Colon cancer Mother CAD (coronary artery disease) NIDDY (non-insulin dependent diabetes mellitus in young) Brother Schizophrenia Degenerative disc disease H/O lymph node cancer Sister Breast cancer Colon cancer Paternal Grandmother Ovarian cancer, Onset Age: 45 Daughter Fibromyalgia Hypertension Cancer of unknown origin Ovarian cancer Other Mental health problem Social History Household Members: None Housing: Apartment Alcohol intake: never Patient Tobacco Use Status: Never used Tobacco e-Cigarette/Vaping Use: Never Used Second Hand Smoke Exposure: No service: No Current occupational status: disabled 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 Sexual orientation: Straight/Heterosexual Gender identity: Female Cognitive needs: No Hearing needs: Yes Vision needs: Yes Female Reproductive History Menstrual Age of Menarche: 11 Date of last menstrual period: 10/20/22 Total pregnancies: 7 Full term: 5 Number of Living Children: 5 Ab spontaneous: 2 Date of last pap smear: 05/17/21 (neg pap and hpv) Date of Mammogram: 05/04/23 (Birad 1) Review of Systems Const All systems reviewed & are unremarkable except as noted in HPI and below Reports as per HPI Eyes Reports no additional complaints ENT Reports no additional complaints Card Reports no additional complaints Resp Reports no additional complaints GI Reports as per HPI and Reports no additional complaints Reports as per HPI Musc Reports no additional complaints Skin/Breast Reports as per HPI Neuro Reports no additional complaints Psych Reports no additional complaints Endo Reports no additional complaints [place]/Lymph Reports no additional complaints Aller/Immun Reports no additional complaints Physical Exam Vital Signs: Last Vital Signs BP 140/88 H 10/21/23 12:50 BMI result Body Mass Index 39.0 Const General: cooperative, healthy appearing, no acute distress, well developed and alert Orientation/consciousness: patient oriented x3 HEENT Head: Yes normal to inspection Eyes General: appearance normal, both eyes and all related structures Neck Neck: Yes normal visual inspection Thyroid: Thyroid normal Chest Chest palpation & inspection: normal inspection of the chest and other (no puckering, dimpling, peau de orange, retraction, discharge, masses) Breast/axilla inspection: normal inspection of the breasts Breast/axilla palpation: normal palpation of the breasts Resp Effort & Inspection: normal respiratory effort GI Inspection: Yes normal to inspection Palpation (GI): Soft to palpation Rectal Exam - Female: deferred General: Yes bladder normal to palpation External Female Exam: normal external appearance and normal appearance of the urethra Speculum Exam - Vagina: normal appearance of the vagina, normal palpation and normal vaginal discharge Speculum Exam - Cervix: normal appearance of the cervix and normal palpation Bimanual exam- vagina & uterus: normal bimanual exam, normal palpation, uterine size normal, bladder normal to palpation, normal palpation and non-tender Bimanual Exam- Adnexa, other: no masses Skin General skin exam: no rashes or lesions noted Rashes: no rashes Neuro General: patient oriented x3 Cognition (Neuro): normal cognition Extrem General: Yes normal to inspection Psych Attitude: cooperative Thought process: Normal thought process present Results AMB Urinalysis, Automated UA Leukoctes 0 Tremaine/uL Last Edit by DOTTY Aguilar on 10/21/23 13:08 UA Nitrite Negative Last Edit by DOTTY Aguilar on 10/21/23 13:08 UA Urobilinogen 0 mg/dL Last Edit by Yeni Elizabeth Varghese A on 10/21/23 13:0 8 UA Protein 0 mg/dL Last Edit by Yeni Elizabeth Varghese A on 10/21/23 13:08 UA pH 5.0 Last Edit by Yeni Elizabeth Lennonloretomelchor A on 10/21/23 13:08 UA Blood 0 Jose Luis/uL Last Edit by Yeni Elizabeth Varghese A on 10/21/23 13:08 UA Specific [place] 1.015 Last Edit by Yeni Elizabeth Varghese A on 10/21/23 13:08 UA Ketone Negative Last Edit by Yeni Elizabeth Varghese A on 10/21/23 13:08 UA Bilirubin 0 mg/dL Last Edit by Yeni Elizabeth Varghese A on 10/21/23 13:08 UA Glucose 3 mg/dL Last Edit by Yeni Elizabeth Varghese A on 10/21/23 13:08 Results Reviewed Results Reviewed: Laboratory Last Values Urine pH (Auto) 5.0 10/21/23 13:07 Specific [place] (Auto) 1.015 10/21/23 13:07 Urine Protein (Auto) 0 mg/dL 10/21/23 13:07 Glucose (UA)(Auto) 3 mg/dL 10/21/23 13:07 Urine Ketones (Auto) Negative 10/21/23 13:07 Urine Blood (Auto) 0 Jose Luis/uL 10/21/23 13:07 Urine Nitrite (Auto) Negative 10/21/23 13:07 Urine Bilirubin (Auto) 0 mg/dL 10/21/23 13:07 Urine Urobilinogen (Auto) 0 mg/dL 10/21/23 13:07 Leukocyte Esterase (Auto) 0 Tremaine/uL 10/21/23 13:07 Assessment & Plan Assessment & Plan (1) Encounter for well woman exam with routine gynecological exam: Code(s): Z01.419 - Encounter for gynecological examination (general) (routine) without abnormal findings Category: Medical Plan: Discussed: Current recommendations for pap smears per ASCCP guidelines. Breast awareness, periodic self breast exams and yearly mammogram. Maintain a healthy lifestyle, well balanced diet including Calcium 1,200 mg and Vitamin D 600 IU daily, and routine exercise. Workup including pelvic ultrasound, GC chlamydia cultures, and BV panel. Follow up in office to discuss test results. Urology referral placed. Avoidance of bladder triggers, hydrate with water. Contact the office with any postmenopausal bleeding. Patient verbalizes understanding and agrees to the plan of care. She was given opportunity to ask questions and all questions were answered to the best of my ability. 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 This note is constructed using voice recognition software. While every effort has been made to ensure accuracy, deputy sheriff/investigator errors may have been included. Orders: Orders AMB Urinalysis Automated Today R30.0 - Dysuria CT NG by PCR Today R10.2 - Pelvic and perineal pain US pelvic and transvaginal Today R10.2 - Pelvic and perineal pain Bacterial Vaginosis Panel Today R10.2 - Pelvic and perineal pain Referrals Urology Referral R39.11 - Hesitancy of micturition Coding Level of Care Code Est Pt Prev Care 40-64y(74700) Diagnoses Encounter for well woman exam with routine gynecological exam Z01.419
[2023-10-21 12:50] VITALS: BP 140/88; BMI 39.0
== END 2023-10-21 13:29 | disposition home or self-care (01) ==
PROVIDERS: PCP Internal Medicine Geriatric Medicine; Visit Provider Advanced Practice Midwife
DX: R30.0 Dysuria (principal); Z01.419 Encounter for gynecological examination (general) (routine) without abnormal findings
CPT/HCPCS: 99396

== ENCOUNTER 2023-10-21 11:56 | Outpatient (REF) | payer MEDICAID, SELFPAY ==
[2023-10-22 05:43] LABS: CT PCR NOT DETECTED (Not Detect.); NG PCR NOT DETECTED (Not Detect.)
[2023-10-22 12:03] LABS: BV Int Neg Control Negative (Negative); BV Int Pos Control Positive (Positive)
== END 2023-10-21 11:57 | disposition home or self-care (01) ==
LOC: HO.LNP 11:56
PROVIDERS: PCP Internal Medicine Geriatric Medicine; Visit Provider Advanced Practice Midwife
DX: Z01.419 Encounter for gynecological examination (general) (routine) without abnormal findings (principal); R10.2 Pelvic and perineal pain
CPT/HCPCS: 0353U; 81003; 87480; 87510; 87660; 99396

== ENCOUNTER 2023-10-21 13:41 | Outpatient (REF) | payer MEDICAID, SELFPAY | END 2023-10-21 13:42 | disposition home or self-care (01) | LOC: HO.LAB 13:41 | PROVIDERS: Visit Provider Advanced Practice Midwife | DX: Z13.89 Encounter for screening for other disorder (principal) ==

== ENCOUNTER 2023-10-29 13:33 | Outpatient (REF) | payer MEDICAID, SELFPAY ==
--- NOTE | ~2023-10-29 | US_ITS ---
EXAMINATION: US PELVIS CLINICAL INFORMATION: Pelvic and perineal pain. COMPARISON: CT abdomen/pelvis 05/22/2023. TECHNIQUE: Ultrasound of the pelvis is performed using both transabdominal and transvaginal transducers along with Doppler. Transvaginal imaging is performed due to inadequate visualization transabdominally. FINDINGS: Uterus: The uterus is anteverted and measures 8.7 x 4.3 x 4.1 cm. The double wall endometrial thickness is 2 mm. The uterus is smooth in contour and has normal myometrial echogenicity. Previously seen fibroid is not visible on the current study. There are some areas of punctate echogenicity seen in the uterus. Multiple nabothian cysts are present . Adnexa: The right ovary was not visualized. The left ovary measured 2.6 x 1.6 x 1.6 cm for a volume of 3.5 mL. US/US pelvic and transvaginal IMPRESSION: No significant abnormality is seen. Punctate areas of echogenicity seen in the uterus could be secondary to adenomyosis as no calcifications were seen on the fairly recent CT scan. These areas could be secondary to endometrial ablation as provided by the patient in her history. If pelvic pain persists, pelvic MRI may be worthwhile for further evaluation.
== END 2023-10-29 13:34 | disposition home or self-care (01) ==
LOC: HO.US 13:33
PROVIDERS: PCP Internal Medicine Geriatric Medicine; Visit Provider Advanced Practice Midwife
DX: R10.2 Pelvic and perineal pain (principal)
CPT/HCPCS: 76830; 76856

== ENCOUNTER 2023-11-04 15:09 | Emergency (ER) | payer MEDICAID, SELFPAY ==
--- NOTE | ~2023-11-04 | XR_ITS ---
EXAMINATION: XR CHEST CLINICAL INFORMATION: Chest pain COMPARISON: None available. TECHNIQUE: 2 views of the chest were obtained. FINDINGS: No significant abnormality is noted involving the heart, lungs, mediastinum, bony thorax or soft tissues. XR/XR chest 2V IMPRESSION: Unremarkable examination.
--- NOTE | 2023-11-04 15:10 | ECG_ITS ---
Test Reason : CHEST PAIN Blood Pressure : / mmHG Vent. Rate : 063 BPM Atrial Rate : 063 BPM P-R Int : 160 ms QRS Dur : 086 ms QT Int : 416 ms P-R-T Axes : 063 -04 -18 degrees QTc Int : 425 ms Normal sinus rhythm Minimal voltage criteria for LVH, may be normal variant ( R in aVL ) Nonspecific ST and T wave abnormality Abnormal ECG When compared to the previous EKG of No significant changes seen Referred By: Danilo Hernandez Electronically Signed By:ISAAC TOBAR MD
[2023-11-04 15:29] VITALS: BP 166/72; PULSE 70; RESP 16; TEMP 36.6; O2SAT 97; BMI 38.3
--- NOTE | 2023-11-04 15:31 | ED_ITS ---
HPI - General Adult General Chief complaint: Chest Pain Stated complaint: chest pain, sweating, tingling Time Seen by Provider: 11/04/23 21:48 Source: patient Mode of arrival: ambulatory Limitations: no limitations History of Present Illness ED Provider: dr westfall HPI narrative: Patient's history of hypertension, diabetes complaining of tingling sweatiness body aches for last 2 months for last 2 days noticed mid chest pain which increases on movements and palpation no shortness of breath no history of known coronary artery disease Related Data Home Medications ?Medication ?Instructions ?Recorded ?Confirmed albuterol sulfate 90 mcg/actuation 2 puff PO QID PRN 03/21/20 06/03/23 aerosol inhaler calcipotriene 0.005 % scalp topical 02/04/21 06/03/23 solution albuterol sulfate 2.5 mg/3 mL 2.5 mg continuous nebulization QID 12/06/21 06/03/23 (0.083 %) solution for nebulization PRN shortness of breath or wheezing clindamycin phosphate 1 % lotion topical DAILY 07/25/22 06/03/23 sumatriptan succinate 50 mg tablet 50 mg PO Q2-4H PRN migraine 03/05/23 06/03/23 headache empagliflozin 12.5 mg-metformin 1 tab PO BID 05/22/23 06/03/23 500 mg tablet (Synjardy) carvedilol 6.25 mg tablet 6.25 mg PO BID 08/18/23 Previous Rx's ?Medication ?Instructions ?Recorded acetaminophen 500 mg tablet 500 mg PO Q6H PRN pain or fever 10/30/20 (Tylenol Extra Strength) #20 tabs blood pressure monitor #1 ea 05/06/21 blood-glucose meter (FreeStyle #1 ea 05/06/21 Lite Meter kit) lancets 28 gauge #100 ea 05/06/21 aspirin 81 mg tablet,delayed 81 mg PO DAILY #90 tabs 08/23/21 release loratadine 10 mg tablet (Claritin) 10 mg PO DAILY PRN allergy 08/23/21 symptoms 90 days #90 tabs meclizine 25 mg tablet 25 mg PO DAILY PRN dizziness 15 10/21/21 days #15 tabs RIGHT WRIST SPLINT (large) #1 ea 12/06/21 zolpidem 10 mg tablet 10 mg PO BEDTIME PRN insomnia 90 01/21/22 days #90 tabs blood sugar diagnostic (FreeStyle #100 strips 01/24/22 Lite Strips) triamcinolone acetonide 0.1 % 1 appl topical BID #30 grams 07/25/22 topical ointment cholecalciferol (vitamin D3) 50 50 mcg PO DAILY 90 days #90 caps 07/29/22 mcg (2,000 unit) capsule fluticasone propionate 230 2 puff inhalation Q12H 30 days #1 07/29/22 mcg-salmeterol 21 mcg/actuation ea HFA inhaler (Advair HFA) simvastatin 20 mg tablet 20 mg PO BEDTIME #90 tabs 08/08/22 clotrimazole-betamethasone 1 1 appl topical BID itching 7 days 09/10/22 %-0.05 % topical cream #45 grams hydrochlorothiazide 25 mg tablet 25 mg PO DAILY #90 tabs 12/20/22 famotidine 40 mg tablet (Pepcid) 40 mg PO BEDTIME #30 tabs 03/05/23 pantoprazole 40 mg tablet,delayed 40 mg PO BID 30 days #60 tabs 03/05/23 release (Protonix) sennosides 8.6 mg tablet (Senna 17.2 mg (2 x 8.6 mg) PO BEDTIME 03/05/23 Laxative) #60 tabs sucralfate 1 gram tablet (Carafate) 2 g (2 x 1 gram) PO DAILY #60 tabs 05/27/23 Allergies Allergy/AdvReac Type Severity Reaction Status Date / Time acetaminophen [From Vicodin] Allergy Intermediate Palpitations, Verified 11/04/23 15:38 Itch amoxicillin [Prevpac] Allergy Intermediate itchy Verified 11/04/23 15:38 throat hydrocodone [From Vicodin] Allergy Intermediate Palpitations, Verified 11/04/23 15:38 Itch ibuprofen [From Motrin] Allergy Intermediate UPSET Verified 11/04/23 15:38 STOMACH, abdominal pain lansoprazole [Prevpac] Allergy Intermediate itchy Verified 11/04/23 15:38 throat morphine [MORPHINE] Allergy Intermediate PALPATATIONS, Verified 11/04/23 15:38 PANIC ATTACKS, nauseas,panic attack, heart palpitations omeprazole [From PRILOSEC] Allergy Intermediate ITCHY Verified 10/21/23 12:50 THROAT pravastatin [PRAVASTATIN] Allergy Intermediate UNKNOWN Verified 11/04/23 15:38 rosuvastatin [From CRESTOR] Allergy Intermediate UNKNOWN Verified 11/04/23 15:38 terbinafine [TERBINAFINE] Allergy Intermediate UNKNOWN Verified 11/04/23 15:38 atorvastatin [From LIPITOR] Allergy Unknown UNKNOWN Verified 11/04/23 15:38 clarithromycin [From BIAXIN] AdvReac Intermediate ABD PAIN, Verified 11/04/23 15:38 DIARRHEA gabapentin [GABAPENTIN] AdvReac Intermediate UNKNOWN, Verified 11/04/23 15:38 nausea, dizziness levofloxacin [LEVOFLOXACIN] AdvReac Intermediate PALPITATION Verified 11/04/23 15:38 S tylenol with codeine Allergy Unknown fast heart Uncoded 08/06/23 13:06 rate Review of Systems 2 Review of Systems: Yes all other systems are reviewed and are negative [facility] Past Medical History Medical History Encounter for well woman exam with routine gynecological exam Umbilical hernia Scalp mass Irritable bowel syndrome with diarrhea Allergic rhinitis Lumbar degenerative disc disease Breast pain during Carpal tunnel syndrome Arthritis Morbid obesity with BMI of 40.0-44.9, adult Insomnia Diabetes mellitus Benign essential hypertension Polyarthralgia Fibromyalgia Mixed hyperlipidemia Candidiasis of mouth and esophagus Thoracic spondylosis Surgical History Hx of colonoscopy History of esophagogastroduodenoscopy (EGD) History of dermoid cyst excision History of excision of lamina of cervical vertebra for decompression of spinal cord H/O hemorrhoidectomy History of appendectomy Family History Family History Father NIDDY (non-insulin dependent diabetes mellitus in young) Cardiovascular disease Obesity Cancer of unknown origin Colon cancer Mother CAD (coronary artery disease) NIDDY (non-insulin dependent diabetes mellitus in young) Brother Schizophrenia Degenerative disc disease H/O lymph node cancer Sister Breast cancer Colon cancer Paternal Grandmother Ovarian cancer, Onset Age: 45 Daughter Fibromyalgia Hypertension Cancer of unknown origin Ovarian cancer Other Mental health problem Social History Social History Household Members: None Housing: Apartment Alcohol intake: never Patient Tobacco Use Status: Never used Tobacco e-Cigarette/Vaping Use: Never Used Second Hand Smoke Exposure: No Advance Directives: No Advance Directives Information Provided: No Do you have a plan to hurt others: No Plan service: No Current occupational status: disabled 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 Oriented X3. No acute distress. Eyes: PERRLA, No Nystagmus ENT: Pharynx normal. Oral Mucosa moist Neck: Normal inspection. Neck supple. CVS: Normal heart rate and rhythm. Pulses normal. Respiratory: No respiratory distress. Equal air entry bilateral, no wheezing/rales/rhonchi Abdomen: Soft and nontender. Bowel sounds are present, no mass palpable, no CVA tenderness Skin: Skin warm and dry. Normal skin color. Normal skin turgor. Extremities: No lower extremity edema. No calf tenderness Neuro: Oriented X 3. No motor deficit. No sensory deficit.No cerebellar signs , cranial nerves II-XII intact Course Course Course Narrative: RME- 53 year old female with PMHx significant for CAD, morbid obesity, asthma, HURD, GERD, Diabetes, HTN, HLD who presents for evaluation of chest pain for the last 2 days. She endorses numbness and tingling. Also endoreses increased perspiration over the last month with weakness and fatigue for one month. Plan for cardiac workup. Medical Decision Making Medical Decision Making [facility] Narrative: Patient with atypical chest pain reducible normal EKG normal troponin likely related to the heart symptoms are vague advised to follow with PCP Differential Diagnosis Differential Diagnoses: The differential diagnosis associated with the presentation includes Anxiety/paresthesia/atypical chest pain/ACS Lab Data [facility] Lab Attestation statement: I reviewed the patient's lab results. 11/04/23 15:26 11/04/23 15:26 Labs: Lab Results 11/04/23 Range/Units 15:26 WBC 8.3 (4.8-10.8) X10*3/uL RBC 5.23 (4.20-5.50) X10*6/uL Hgb 14.0 (12.0-16.0) g/dl Hct 43.5 (37.0-47.0) % MCV 83.2 (80.0-98.0) fL MCH 26.8 L (27.0-33.0) pg MCHC 32.2 (31.0-35.0) g/dl RDW 14.3 (11.0-16.0) % Plt Count 301 (160-400) X10*3/uL MPV 10.0 (9.4-12.3) fL Immature Gran % (Auto) 0.4 (0.0-0.4) % Neut % (Auto) 63.7 (45-73) % Lymph % (Auto) 25.8 (20-40) % Green % (Auto) 7.5 (2-11) % Eos % (Auto) 1.8 (0-4) % Baso % (Auto) 0.8 (0-2) % Lymph # (Auto) 2.1 (1.2-4.9) X10*3/uL Green # (Auto) 0.6 (0.1-1.2) X10*3/uL Eos # (Auto) 0.2 (0.0-0.4) X10*3/uL Baso # (Auto) 0.1 (0.0-0.2) X10*3/uL Abs Immat Gran (auto) 0.03 (0.00-0.03) X10*3/uL Absolute Neuts (auto) 5.3 (2.0-8.3) x10*3/uL Absolute Nucleated RBC 0.000 (0.0-0.012) X10*3/uL Nucleated RBC % (auto) 0.0 (0.0-0.2) /100WBC PT 12.5 (11.1-13.3) SEC INR 1.0 (0.9-1.1) Sodium 142 (135-145) mmol/L Potassium 4.0 (3.3-5.1) mmol/L Chloride 107 (96-108) mmol/L Carbon Dioxide 24 (22-29) mmol/L Anion Gap 15 (12-20) BUN 17 H (9-16) mg/dL Creatinine 0.80 (0.5-1.4) mg/dL Estim Creat Clear Calc 90.6 Estimated GFR > 60 Random Glucose 148 H (60-115) mg/dL Calcium 9.9 D (8.4-10.2) mg/dL Total Bilirubin 0.7 (0.0-1.0) mg/dL AST 31 (5-31) U/L ALT 34 H (0-31) U/L Alkaline Phosphatase 121 H (39-117) U/L Troponin I High Sens < 2.7 (<3.5-17.0) ng/L Total Protein 7.6 (6.5-8.0) g/dL Albumin 4.3 (3.5-5.0) g/dL Lipase 32 (8-78) U/L Independent Interpretation I performed an independent interpretation of an: EKG Interpretation: Normal sinus rhythm heart rate 63 beats per minute normal intervals LVH no acute STT wave changes no acute ischemia Discharge Plan Discharge Clinical Impression: Chest pain Patient Disposition: Home, Self-Care Instructions: Chest Pain (ED) Additional Instructions: 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 for further management Your chest pain is unlikely from the heart Take Tylenol/Motrin for the pain Prescriptions: No Action (DME) blood pressure monitor Kit See Rx Instructions .Route Qty: 1 0RF Rx Instructions: As directed (DME) lancets 28 gauge misc See Rx Instructions topical DIRECTED Qty: 100 0RF Rx Instructions: Test once daily (DME) blood-glucose meter [FreeStyle Lite Meter] Kit See Rx Instructions .Route Qty: 1 0RF Rx Instructions: As directed aspirin 81 mg tablet,delayed release (DR/EC) 81 mg PO DAILY Qty: 90 1RF meclizine 25 mg tablet 25 mg PO DAILY PRN (Reason: dizziness) 15 Days Qty: 15 2RF zolpidem 10 mg tablet 10 mg PO BEDTIME PRN (Reason: insomnia) 90 Days Qty: 90 0RF (DME) FreeStyle Lite Strips Strip See Rx Instructions .ROUTE .COMPLEX Qty: 100 0RF Dose Instruction: USE TODOS [place] Rx Instructions: USE TODOS [place] cholecalciferol (vitamin D3) 50 mcg (2,000 unit) capsule 50 mcg PO DAILY 90 Days Qty: 90 3RF simvastatin 20 mg tablet 20 mg PO BEDTIME Qty: 90 1RF hydrochlorothiazide 25 mg tablet 25 mg PO DAILY Qty: 90 0RF sucralfate [Carafate] 1 gram tablet 2 g PO DAILY Qty: 60 3RF acetaminophen [Tylenol Extra Strength] 500 mg tablet 500 mg PO Q6H PRN (Reason: pain or fever) Qty: 20 0RF calcipotriene 0.005 % solution topical loratadine [Claritin] 10 mg tablet 10 mg PO DAILY PRN (Reason: allergy symptoms) 90 Days Qty: 90 3RF albuterol sulfate 2.5 mg /3 mL (0.083 %) solution for nebulization 2.5 mg continuous nebulization QID PRN (Reason: shortness of breath or wheezing) (DME) RIGHT WRIST SPLINT (large) large See Rx Instructions .Route .MEDSUPPLY Qty: 1 0RF Rx Instructions: As directed albuterol sulfate 90 mcg/actuation HFA aerosol inhaler 2 puff PO QID PRN Advair HFA 230-21 mcg/actuation HFA aerosol inhaler 2 puff inhalation Q12H 30 Days Qty: 1 6RF clotrimazole-betamethasone 1-0.05 % cream 1 appl topical BID 7 Days Qty: 45 0RF Rx Instructions: apply twice a day clindamycin phosphate 1 % lotion topical DAILY triamcinolone acetonide 0.1 % ointment 1 appl topical BID Qty: 30 1RF Rx Instructions: not for use on the face. sumatriptan succinate 50 mg tablet 50 mg PO Q2-4H PRN (Reason: migraine headache) Rx Instructions: do not exceed 4 doses per 24 hrs sennosides [Senna Laxative] 8.6 mg tablet 17.2 mg PO BEDTIME Qty: 60 6RF pantoprazole [Protonix] 40 mg tablet,delayed release (DR/EC) 40 mg PO BID 30 Days Qty: 60 6RF famotidine [Pepcid] 40 mg tablet 40 mg PO BEDTIME Qty: 30 6RF Synjardy 12.5-500 mg tablet 1 tab PO BID carvedilol 6.25 mg tablet 6.25 mg PO BID Referrals: Amarjit Vallejo MD [Physician] - 2 weeks Print Language: Swazi
[2023-11-04 15:33] LABS: MANUAL DIFF FLAG NO
--- NOTE | 2023-11-04 15:38 | MHC.EDTECH ---
Patient ekg was taken and was read by provider ,blood drawn and sent to lab .
[2023-11-04 16:46] LABS: Hematocrit 43.5 % (37.0-47.0); Mean Corpuscular HGB Conc 32.2 g/dl (31.0-35.0); Mean Corpuscular Hemoglobin 26.8 pg (27.0-33.0); Mean Corpuscular Volume 83.2 fL (80.0-98.0); Red Blood Count 5.23 X10*6/uL (4.20-5.50); White Blood Count 8.3 X10*3/uL (4.8-10.8)
[2023-11-04 16:47] LABS: Imm Gran Pct Auto 0.4 % (0.0-0.4); Neutrophils Percent Auto 63.7 % (45-73); Platelet Count 301 X10*3/uL (160-400); Red Cell Distribution Width 14.3 % (11.0-16.0)
[2023-11-04 16:48] LABS: Basophils Percent Auto 0.8 % (0-2); Eosinophils Percent Auto 1.8 % (0-4); Imm Gran Abs Auto 0.03 X10*3/uL (0.00-0.03); Lymphocytes Percent Auto 25.8 % (20-40); Monocytes Percent Auto 7.5 % (2-11); Neutrophils Absolute Auto 5.3 x10*3/uL (2.0-8.3)
[2023-11-04 16:49] LABS: Basophils Absolute Auto 0.1 X10*3/uL (0.0-0.2); Eosinophils Absolute Auto 0.2 X10*3/uL (0.0-0.4); Lymphocytes Absolute Auto 2.1 X10*3/uL (1.2-4.9); Monocytes Absolute Auto 0.6 X10*3/uL (0.1-1.2)
[2023-11-04 17:45] LABS: Prothrombin Time 12.5 SEC (11.1-13.3)
[2023-11-04 17:48] LABS: Alanine Aminotransferase 34 U/L (0-31); Albumin Level 4.3 g/dL (3.5-5.0); Alkaline Phosphatase 121 U/L (39-117); Anion Gap 15 (12-20); Aspartate Amino Transferase 31 U/L (5-31); Bilirubin Total 0.7 mg/dL (0.0-1.0); Blood Urea Nitrogen 17 mg/dL (9-16); Calcium 9.9 mg/dL (8.4-10.2); Carbon Dioxide 24 mmol/L (22-29); Chloride 107 mmol/L (96-108); Creatinine Clr Calc Pharmacy 90.6; Estimated Glomerular Filt Rate > 60; Glucose Random 148 mg/dL (60-115); Lipase 32 U/L (8-78); Sodium 142 mmol/L (135-145); Total Protein 7.6 g/dL (6.5-8.0)
[2023-11-04 17:50] LABS: Troponin-I High Sensitivity < 2.7 ng/L (<3.5-17.0)
[2023-11-04 22:08] VITALS: BP 163/72; PULSE 62; RESP 16; TEMP 36.5; O2SAT 96
[2023-11-04 23:31] VITALS: BP 163/72; PULSE 62; RESP 16; TEMP 36.5; O2SAT 96
== END 2023-11-04 23:32 | disposition home or self-care (01) ==
PROVIDERS: Physician Assistant; Emergency Provider Internal Medicine; PCP Internal Medicine Geriatric Medicine
DX: R07.9 Chest pain, unspecified (principal); I10 Essential (primary) hypertension; E11.9 Type 2 diabetes mellitus without complications; R06.02 Shortness of breath; Z79.899 Other long term (current) drug therapy
CPT/HCPCS: 36415; 71046; 80053; 83690; 84484; 85025; 85610; 93005; 99283; 99284

== ENCOUNTER → 2023-11-04 15:10 | Outpatient (BNV) | payer MEDICAID, SELFPAY | PROVIDERS: Emergency Provider Internal Medicine; PCP Internal Medicine Geriatric Medicine; Visit Provider Internal Medicine Cardiovascular Disease | DX: R07.9 Chest pain, unspecified (principal) | CPT/HCPCS: 93010 ==

== ENCOUNTER 2023-11-18 13:34 | Outpatient (AMB) | payer MEDICAID, SELFPAY ==
--- NOTE | 2023-11-18 13:42 | A.OFFVIS_ITS ---
Vital Signs 11/18/23 13:55 Height 5 ft 3 in Weight 216 lb BMI 38.3 BP 138/83 Blood Pressure Location Rt brachial Position Sitting Pulse 61 Intake Visit Reasons: 3 month follow up GERD, dysphagia Intake Note: Patient 3 months follow up her barium swallow. CC: Patient c/o pain and inflammation from epigastric region after eating. She also states that she continues to have to clear his throat. 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 Accompanied by: Self / Same As Patient Allergies acetaminophen [From Vicodin] Allergy (Intermediate, Verified 11/18/23 14:07) Palpitations, Itch amoxicillin [Prevpac] Allergy (Intermediate, Verified 11/18/23 14:07) itchy throat hydrocodone [From Vicodin] Allergy (Intermediate, Verified 11/18/23 14:07) Palpitations, Itch ibuprofen [From Motrin] Allergy (Intermediate, Verified 11/18/23 14:07) UPSET STOMACH, abdominal pain lansoprazole [Prevpac] Allergy (Intermediate, Verified 11/18/23 14:07) itchy throat morphine [MORPHINE] Allergy (Intermediate, Verified 11/18/23 14:07) PALPATATIONS, PANIC ATTACKS, nauseas,panic attack, heart palpitations omeprazole [From PRILOSEC] Allergy (Intermediate, Verified 11/18/23 14:07) ITCHY THROAT pravastatin [PRAVASTATIN] Allergy (Intermediate, Verified 11/18/23 14:07) UNKNOWN rosuvastatin [From CRESTOR] Allergy (Intermediate, Verified 11/18/23 14:07) UNKNOWN terbinafine [TERBINAFINE] Allergy (Intermediate, Verified 11/18/23 14:07) UNKNOWN atorvastatin [From LIPITOR] Allergy (Unknown, Verified 11/18/23 14:07) UNKNOWN clarithromycin [From BIAXIN] Adverse Reaction (Intermediate, Verified 11/18/23 14:07) ABD PAIN, DIARRHEA gabapentin [GABAPENTIN] Adverse Reaction (Intermediate, Verified 11/18/23 14:07) UNKNOWN, nausea, dizziness levofloxacin [LEVOFLOXACIN] Adverse Reaction (Intermediate, Verified 11/18/23 14:07) PALPITATIONS tylenol with codeine Allergy (Unknown, Uncoded 08/06/23 13:06) fast heart rate HPI HPI 3 month follow up GERD, dysphagia: Details: Assessment & Plan (1) E coli enteritis: Code(s): A04.4 - Other intestinal Escherichia coli infections (2) Oropharyngeal dysphagia: Code(s): R13.12 - Dysphagia, oropharyngeal phase (3) Constipation: Code(s): K59.00 - Constipation, unspecified (4) Gastroparesis: Comment: she has been unable to tolerate Reglan due to dizziness so her only real options to consider gastric pacemaker going forward if her symptoms become severe. Aeb Code(s): K31.84 - Gastroparesis (5) GERD (gastroesophageal reflux disease): Code(s): K21.9 - Gastro-esophageal reflux disease without esophagitis Qualifiers: Esophagitis presence: without esophagitis Qualified Code(s): K21.9 - Gastro-esophageal reflux disease without esophagitis (6) H. pylori infection: Comment: H. pylori infection TREATMENT RESISTANT Notes: She has failed all rescue regimens I can think of, we will manage her symptoms as well as we can and consider if new treatment options develop. Code(s): A04.8 - Other specified bacterial intestinal infections Plan [place] #Tom Live She is having trouble with food getting stuck in the voice box to area above sternal notch. After time and with water this will slowly go down. Stool consistency is variable but no diarrhea except if she eats an offending foods such as greasy foods. She continues on her pantoprazole twice a day, her sucralfate, and she has senna if she needs for constipation. She had an endoscopy in 2019 for similar presentation and there was no noted esophagitis or abnormality at that time. She did have a similar presentation many years ago with a barium swallow that is seem to show difficulty swallowing a variety of foods and this was done in conjunction with speech therapy. I think will get another modified barium swallow to see what might be going on. She denies any change in her medications, and the only new illness is a urine tract infection for which she is being treated with Bactrim. Return office visit in 3 months and or after the barium swallow Orders: Orders FL barium swallow modified Today R13.12 - Dysphagia, oropharyngeal phase MODIFIED BARIUM SWALLOW 10/07/23 FINDINGS: Patient is status post ACDF C5-C7 with anterior plate and screws and interbody graft. No complication evident. 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 No laryngeal penetration or tracheal aspiration was seen during this examination. FLUOROSCOPY TIME: 1 minute 10 seconds Number of Spot Images: 12 cine loops obtained and stored. DOSE AREA PRODUCT: 534 uGy-m2 (microgray-meter squared) FL/FL barium swallow modified IMPRESSION: No laryngeal penetration or tracheal aspiration was seen during this examination. Patient is status post ACDF C5-C7 with anterior plate and screws and interbody graft. No complication evident. 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 Refer to the speech therapy report for further clarification SPEECH THERAPY REPORT Clinician Assessment: This exam was performed by the speech pathologist and the radiologist. Patient was standing for lateral view and trialed thin, puree, and regular solid consistencies. Unable to visualize labial seal with imaging. Clinically, patient did not appear to have any spillage beyond the anthony border. Posterior lingual transport was brisk and timely. Mastication was mildly prolonged with a very trace amount of residue coating the tongue post-swallow, which eventually cleared. Pharyngeal swallow trigger was timely. No nasopharyngeal reflux. Complete epiglottic inversion and complete laryngeal vestibular closure with good airway protection. No evidence of aspiration or penetration during this exam. There was trace residue coating the base of tongue and posterior pharyngeal wall. Complete clearance of the valleculae and pyriform sinuses. Liquid Intake Recommendation: Thin Liquid Intake Strategies: Unrestricted Dietary Recommendations: Regular Medication Administration: Whole with Liquid TODAYS VISIT Macedonian # [id number] Her sx are in the early swallowing phase in the voice box area, and while the mod barium swallow does not show severe concern, there is a finding of bridging osteophytes exerting mass effect on the hypopharynx. I think this is causing the intermittent swallowing discomfort/dysphagia. I don't think there is any surgery for anterior bridging, but her neurosurgeon is Dr. rober Myers in [facility]. She may wish to speak to her about this. I am uncertain if an EGD would uncover any reversible results, but she would li ke one to be sure there are no other c/f. There are no prior problems with anesthesia or sedation. Asthma well controlled and she denies any cardiac problems No ID problems. ROV 6 weeks to eval change from pantoprazole to generic nexium bid. [facility] Medical History Encounter for well woman exam with routine gynecological exam Umbilical hernia Scalp mass Irritable bowel syndrome with diarrhea Allergic rhinitis Lumbar degenerative disc disease Breast pain during Carpal tunnel syndrome Arthritis Morbid obesity with BMI of 40.0-44.9, adult Insomnia Diabetes mellitus Benign essential hypertension Polyarthralgia Fibromyalgia Mixed hyperlipidemia Candidiasis of mouth and esophagus Thoracic spondylosis Surgical History Hx of colonoscopy History of esophagogastroduodenoscopy (EGD) History of dermoid cyst excision History of excision of lamina of cervical vertebra for decompression of spinal cord H/O hemorrhoidectomy History of appendectomy Family History Father NIDDY (non-insulin dependent diabetes mellitus in young) Cardiovascular disease Obesity Cancer of unknown origin Colon cancer Mother CAD (coronary artery disease) NIDDY (non-insulin dependent diabetes mellitus in young) Brother Schizophrenia Degenerative disc disease H/O lymph node cancer Sister Breast cancer Colon cancer Paternal Grandmother Ovarian cancer, Onset Age: 45 Daughter Fibromyalgia Hypertension Cancer of unknown origin Ovarian cancer Other Mental health problem Social History Household Members: None Housing: Apartment Alcohol intake: never Patient Tobacco Use Status: Never used Tobacco e-Cigarette/Vaping Use: Never Used Second Hand Smoke Exposure: No service: No Current occupational status: disabled 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 Sexual orientation: Straight/Heterosexual Gender identity: Female Cognitive needs: No Hearing needs: Yes Vision needs: Yes Female Reproductive History Menstrual Age of Menarche: 11 Review of Systems Const Denies fatigue, Denies fever(s), Denies night sweats, Denies poor appetite and Denies weight loss ENT Reports Normal hearing present, Denies dental pain, Reports dysphagia, Denies hearing loss, Reports hoarseness, Denies mouth pain, Denies odynophagia, Reports post nasal drip, Denies throat swelling, Denies tongue swelling and Reports ot her (Dentition adequate) Card Reports no additional complaints Resp Reports no additional complaints GI Details: Denies abdominal pain, Denies melena, Denies bloating, Denies hematochezia, Denies constipation, Denies GI cramping, Reports dysphagia, Denies excessive fla tus, Denies early satiety, Reports heartburn, Denies diarrhea, Denies nausea, Denies odynophagia, Denies vomiting and Denies hematemesis Skin/Breast Denies pruritus, Denies lesions, Denies rash and Denies jaundice Neuro Reports Normal hearing present and Denies Abnormal speech present Endo Denies fatigue Aller/Immun Denies throat swelling and Denies tongue swelling Physical Exam Vital Signs: Last Vital Signs Pulse 61 11/18/23 13:55 BP 138/83 11/18/23 13:55 BMI result Body Mass Index 38.3 Const General: cooperative, no acute distress, well developed and well groomed Nutritional Appearance: well nourished and obese Orientation/consciousness: oriented to person, oriented to place and oriented to time Limitations: language barrier HEENT Head: Yes normocephalic and Yes atraumatic Eyes General: appearance normal, both eyes and all related structures Pupils: Equal, round and reactive pupils present Neck Neck: Yes normal visual inspection and Yes no lymphadenopathy Thyroid: Thyroid normal Resp Effort & Inspection: normal respiratory effort and able to speak in complete sentences Auscultation: clear to auscultation bilaterally Cardio Rate: regular rate Rhythm: regular rhythm Heart sounds: Normal, physiologic split S2 sound present Peripheral pulses: radial pulses present and posterior tibial pulses present GI Inspection: No distended, Yes Abdominal panniculus present and Yes obesity Palpation (GI): Soft to palpation, nontender, no guarding, not rigid and No hepatosplenomegaly present Percussion: Yes normal to percussion Auscultation: normal bowel sounds Rectal Exam - Female: deferred Skin General skin exam: no rashes or lesions noted, turgor normal, skin not dry, no jaundice, No spider nevi and no striae Rashes: no rashes Nails: normal Neuro General: oriented to person, oriented to place and oriented to time Cranial nerves: Yes Equal, round and reactive pupils present and Yes Normal hearing present Speech: No Abnormal speech present Extrem General: Yes normal to inspection, No clubbing, No cyanosis and No edema Psych Appearance: grossly normal and well kempt Mental Status: mental status grossly normal Speech and movement: Normal speech and movement present Affect: normal affect Attitude: cooperative Thought process: Normal thought process present and not confabulating Thought content: Normal thought content present Insight: Limited insight present (Psych) Judgement: Limited judgement present (Psych) Results Reviewed Results Reviewed: MODIFIED BARIUM SWALLOW 10/07/23 FINDINGS: Patient is status post ACDF C5-C7 with anterior plate and screws and interbody graft. No complication evident. 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 No laryngeal penetration or tracheal aspiration was seen during this examination. FLUOROSCOPY TIME: 1 minute 10 seconds Number of Spot Images: 12 cine loops obtained and stored. DOSE AREA PRODUCT: 534 uGy-m2 (microgray-meter squared) FL/FL barium swallow modified IMPRESSION: No laryngeal penetration or tracheal aspiration was seen during this examination. Patient is status post ACDF C5-C7 with anterior plate and screws and interbody graft. No complication evident. 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 Refer to the speech therapy report for further clarification SPEECH THERAPY REPORT Clinician Assessment: This exam was performed by the speech pathologist and the radiologist. Patient was standing for lateral view and trialed thin, puree, and regular solid consistencies. Unable to visualize labial seal with imaging. Clinically, patient did not appear to have any spillage beyond the anthony border. Posterior lingual transport was brisk and timely. Mastication was mildly prolonged with a very trace amount of residue coating the tongue post-swallow, which eventually cleared. Pharyngeal swallow trigger was timely. No nasopharyngeal reflux. Complete epiglottic inversion and complete laryngeal vestibular closure with good airway protection. No evidence of aspiration or penetration during this exam. There was trace residue coating the base of tongue and posterior pharyngeal wall. Complete clearance of the valleculae and pyriform sinuses. Liquid Intake Recommendation: Thin Liquid Intake Strategies: Unrestricted Dietary Recommendations: Regular Medication Administration: Whole with Liquid Assessment & Plan Assessment & Plan (1) Oropharyngeal dysphagia: Code(s): R13.12 - Dysphagia, oropharyngeal phase Category: Medical (2) Gastroparesis: Comment: she has been unable to tolerate Reglan due to dizziness so her only real options to consider gastric pacemaker going forward if her symptoms become severe. Aeb Code(s): K31.84 - Gastroparesis Category: Medical (3) GERD (gastroesophageal reflux disease): Code(s): K21.9 - Gastro-esophageal reflux disease without esophagitis Category: Medical Qualifiers: Esophagitis presence: without esophagitis Qualified Code(s): K21.9 - Gastro-esophageal reflux disease without esophagitis (4) H. pylori infection: Comment: H. pylori infection TREATMENT RESISTANT Notes: She has failed all rescue regimens I can think of, we will manage her symptoms as well as we can and consider if new treatment options develop. Code(s): A04.8 - Other specified bacterial intestinal infections Category: Medical Plan [place] # [id number] Her sx are in the early swallowing phase in the voice box area, and while the mod barium swallow does not show severe concern, there is a finding of bridging osteophytes exerting mass effect on the hypopharynx. I think this is causing the intermittent swallowing discomfort/dysphagia. I don't think there is any surgery for anterior bridging, but her neurosurgeon is Dr. rober Myers in [facility]. She may wish to speak to her about this. I am uncertain if an EGD would uncover any reversible results, but she would like one to be sure there are no other c/f. There are no prior problems with anesthesia or sedation. Asthma well controlled and she denies any cardiac problems No ID problems. ROV 6 weeks to eval change from pantoprazole to generic nexium bid. Orders: Orders EGD with Christianson - GI Use Only Today R13.12 - Dysphagia, oropharyngeal phase Medications: New esomeprazole magnesium (Nexium) 40 mg PO BID 60 caps 6RF A04.8 - Other specified bacterial intestinal infections, K21.9 - Gastro-esophageal reflux disease without esophagitis Discontinued pantoprazole (Protonix) Discontinued Reason: Doctor's Order 40 mg PO BID 30 days 60 tabs 6RF E66.01 - Morbid (severe) obesity due to excess calories, K21.9 - Gastro- esophageal reflux disease without esophagitis, Z68.41 - Body mass index [BMI] 40.0-44.9, adult Coding Level of Care Code Est Pt Level 4 (73276) Diagnoses Oropharyngeal dysphagia R13.12 Gastroparesis K31.84 Gastroesophageal reflux disease without esophagitis K21.9 Esophagitis presence: without esophagitis H. pylori infection A04.8
[2023-11-18 13:55] VITALS: BP 138/83; PULSE 61; BMI 38.3
== END 2023-11-18 14:35 | disposition home or self-care (01) ==
PROVIDERS: PCP Internal Medicine Geriatric Medicine; Visit Provider Nurse Practitioner
DX: R13.12 Dysphagia, oropharyngeal phase (principal); K31.84 Gastroparesis; K21.9 Gastro-esophageal reflux disease without esophagitis; A04.8 Other specified bacterial intestinal infections
CPT/HCPCS: 99214

== ENCOUNTER → 2023-11-18 13:34 | Outpatient (BNVA) | payer MEDICAID, SELFPAY | PROVIDERS: PCP Internal Medicine Geriatric Medicine; Visit Provider Nurse Practitioner | DX: K21.9 Gastro-esophageal reflux disease without esophagitis (principal); R13.12 Dysphagia, oropharyngeal phase; K31.84 Gastroparesis; A04.8 Other specified bacterial intestinal infections | CPT/HCPCS: 99212 ==

== ENCOUNTER 2023-12-01 13:19 | Outpatient (AMB) | payer MEDICAID, SELFPAY ==
[2023-12-01 14:03] VITALS: BP 142/80; PULSE 65; BMI 37.9
--- NOTE | 2023-12-01 14:03 | MHC.OFFVIS ---
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 Principal Name: stephanie marquez [id number] Allergies acetaminophen [From Vicodin] Allergy (Intermediate, Verified 12/01/23 14:06) Palpitations, Itch amoxicillin [Prevpac] Allergy (Intermediate, Verified 12/01/23 14:06) itchy throat hydrocodone [From Vicodin] Allergy (Intermediate, Verified 12/01/23 14:06) Palpitations, Itch ibuprofen [From Motrin] Allergy (Intermediate, Verified 12/01/23 14:06) UPSET STOMACH, abdominal pain lansoprazole [Prevpac] Allergy (Intermediate, Verified 12/01/23 14:06) itchy throat morphine [MORPHINE] Allergy (Intermediate, Verified 12/01/23 14:06) PALPATATIONS, PANIC ATTACKS, nauseas,panic attack, heart palpitations omeprazole [From PRILOSEC] Allergy (Intermediate, Verified 12/01/23 14:06) ITCHY THROAT pravastatin [PRAVASTATIN] Allergy (Intermediate, Verified 12/01/23 14:06) UNKNOWN rosuvastatin [From CRESTOR] Allergy (Intermediate, Verified 12/01/23 14:06) UNKNOWN terbinafine [TERBINAFINE] Allergy (Intermediate, Verified 12/01/23 14:06) UNKNOWN atorvastatin [From LIPITOR] Allergy (Unknown, Verified 12/01/23 14:06) UNKNOWN clarithromycin [From BIAXIN] Adverse Reaction (Intermediate, Verified 12/01/23 14:06) ABD PAIN, DIARRHEA gabapentin [GABAPENTIN] Adverse Reaction (Intermediate, Verified 12/01/23 14:06) UNKNOWN, nausea, dizziness levofloxacin [LEVOFLOXACIN] Adverse Reaction (Intermediate, Verified 12/01/23 14:06) PALPITATIONS tylenol with codeine Allergy (Unknown, Uncoded 12/01/23 14:06) fast heart rate Medication List - Last Reconciled 12/01/23 by MAGDALENE Mcnulty acetaminophen (Tylenol Extra Strength) 500 mg PO Q6H PRN albuterol sulfate 2.5 mg continuous nebulization QID PRN albuterol sulfate 90 mcg/actuation 2 puffs PO QID PRN aspirin 81 mg PO DAILY blood pressure monitor As directed blood sugar diagnostic (FreeStyle Lite Strips) USE [facility] blood-glucose meter (FreeStyle Lite Meter kit) As directed calcipotriene 0.005% topical carvedilol 6.25 mg PO BID cholecalciferol (vitamin D3) 50 mcg PO DAILY 90 days clindamycin phosphate 1% topical DAILY clotrimazole-betamethasone 1-0.05 % 1 appl topical BID 7 days empagliflozin-metformin 12.5-500 mg (Synjardy) 1 tab PO BID esomeprazole magnesium (Nexium) 40 mg PO BID ezetimibe 10 mg PO DAILY famotidine (Pepcid) 40 mg PO BEDTIME fluticasone propion-salmeterol 230-21 mcg/actuation (Advair HFA) 2 puffs inhalation Q12H 30 days hydrochlorothiazide 25 mg PO DAILY hydroquinone 4% 1 appl topical DAILY lancets Test once daily loratadine (Claritin) 10 mg PO DAILY PRN 90 days meclizine 25 mg PO DAILY PRN 15 days [RIGHT WRIST SPLINT (large) As directed] sennosides (Senna Laxative) 17.2 mg (2 x 8.6 mg) PO BEDTIME sucralfate (Carafate) 2 grams (2 x 1 gram) PO DAILY sumatriptan succinate 50 mg PO Q2-4H PRN triamcinolone acetonide 0.1% 1 appl topical BID zolpidem 10 mg PO BEDTIME PRN 90 days HPI HPI 6 mth f/up: Details: Farrah is a 53-year-old female with past medical history of hypertension, hyperlipidemia, diabetes, morbid obesity, nonobstructive coronary artery disease who was recently seen in the emergency room for atypical chest discomfort and ruled out for ACS. She now presents for follow-up. Today she reports that she has not had recurrent chest discomfort since the day she went to the emergency room. She denies any chest discomfort at rest or with activity in recent weeks. No palpitations, lightheadedness, presyncope, syncope, falls. No shortness of breath, PND, orthopnea or edema. She does have some pain that runs along the outside of her right leg with some tingling in her lower leg. She does admit to having some problems with her low back. She has an upcoming visit with her neurologist. Instructed to discuss this symptom with that provider. Taking most of meds as directed. Has not been taking her statin. Does have a history of fibromyalgia and is concerned about increased discomfort. Significant other present. Certified spanish interpreter/translator used. [facility] Medical History Encounter for well woman exam with routine gynecological exam Umbilical hernia Scalp mass Irritable bowel syndrome with diarrhea Allergic rhinitis Lumbar degenerative disc disease Breast pain during Carpal tunnel syndrome Arthritis Morbid obesity with BMI of 40.0-44.9, adult Insomnia Diabetes mellitus Benign essential hypertension Polyarthralgia Fibromyalgia Mixed hyperlipidemia Candidiasis of mouth and esophagus Thoracic spondylosis Surgical History Hx of colonoscopy History of esophagogastroduodenoscopy (EGD) History of dermoid cyst excision History of excision of lamina of cervical vertebra for decompression of spinal cord H/O hemorrhoidectomy History of appendectomy Family History Father NIDDY (non-insulin dependent diabetes mellitus in young) Cardiovascular disease Obesity Cancer of unknown origin Colon cancer Mother CAD (coronary artery disease) NIDDY (non-insulin dependent diabetes mellitus in young) Brother Schizophrenia Degenerative disc disease H/O lymph node cancer Sister Breast cancer Colon cancer Paternal Grandmother Ovarian cancer, Onset Age: 45 Daughter Fibromyalgia Hypertension Cancer of unknown origin Ovarian cancer Other Mental health problem Social History Household Members: None Housing: Apartment Alcohol intake: never Patient Tobacco Use Status: Never used Tobacco e-Cigarette/Vaping Use: Never Used Second Hand Smoke Exposure: No service: No Current occupational status: disabled 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 Sexual orientation: Straight/Heterosexual Gender identity: Female Cognitive needs: No Hearing needs: Yes Vision needs: Yes Female Reproductive History Menstrual Age of Menarche: 11 Review of Systems Const All systems reviewed & are unremarkable except as noted in HPI and below ENT Denies dizziness Card Denies chest pain, Denies chest pain at rest, Denies chest pain with activity, Denies rapid heart rate, Denies pedal edema, Denies edema, Denies leg edema, Denies lightheadedness, Denies palpitations, Denies dyspnea, Denies dyspnea on exertion and Denies orthopnea Resp Denies cough, Denies dyspnea and Denies dyspnea on exertion GI Denies hematochezia and Denies change in stool character Musc Details: low back discomfort with pain down right lateral leg Denies abnormal gait, Denies limited range of motion, Denies muscle cramps, Denies muscle weakness, Denies numbness, Denies radiating pain into limb, Denies stiffness and Denies tingling Neuro Denies abnormal gait, Denies dizziness, Denies numbness and Denies tingling Endo Denies palpitations Physical Exam Vital Signs: Last Vital Signs Pulse 65 12/01/23 14:03 BP 142/80 H 12/01/23 14:03 BMI result Body Mass Index 37.9 Const General: cooperative, healthy appearing, comfortable and no acute distress Orientation/consciousness: patient oriented x3 Neck Neck: Yes normal visual inspection Resp Effort & Inspection: normal respiratory effort Auscultation: clear to auscultation bilaterally, no crackles, no rales, no rhonchi and no wheezes Cardio Jugular venous distension: no JVD Rate: regular rate Rhythm: regular rhythm Heart sounds: S1 normal heart sound present, S2 normal heart sound present, no murmurs and no rubs Back/Spine/Pelvis Other: tenderness to palpation along left mid back to left lateral thorax - winces and grimaces Neuro General: patient oriented x3 Extrem General: Yes normal to inspection Psych Appearance: grossly normal Mental Status: mental status grossly normal Speech and movement: Normal speech and movement present Assessment & Plan Assessment & Plan (1) CAD (coronary artery disease): Code(s): I25.10 - Atherosclerotic heart disease of [place] coronary artery without angina pectoris Category: Medical Plan: History of atypical chest discomfort with known history of mild nonobstructive coronary artery disease. Cardiac risk factors of hypertension, hyperlipidemia, diabetes and morbid obesity. A CTA of the coronary arteries was done on 11/15/2021 showing nonobstructive LAD stenosis, 30%, no definite stenosis elsewhere. ER evaluation on 11/04/2023 for atypical sounding chest discomfort. She ruled out for ACS. EKG at that time showed only nonspecific ST or T-wave abnormalities. Troponin levels were normal. She has not had recurrent symptoms since that time. She does have a history of fibromyalgia has various discomfort over her body. This may have contributed to her symptom. Spent time reviewing signs and symptoms of angina. Continue with risk factor modification and med management for stable CAD including aspirin 81 mg daily and carvedilol. She has been ordered to be on statin however she tells me she is not taking. She has body discomfort from her fibromyalgia and is fearful it will get worse. Instructed to try the statin and notify this office or PCP if her symptoms do in fact worsen. Hemoglobin A1c goal should be less than 7. [place] blood pressure goal less than 130/85. Blood pressure is mildly elevated this visit. She tells me it goes up with her body pain. She continues on carvedilol 6.25 mg b.i.d.. Resting heart rate is in the 60s. Will continue carvedilol at current dose. Continue hydrochlorothiazide. If blood pressure remains elevated at follow-up visits can add Felix/Arb. cardiology follow-up in 6 months, sooner if needed. (2) Heart palpitations: Code(s): R00.2 - Palpitations Category: Medical Plan: On last visit reported heart palpitations where her heart is beating fast for several minutes. No presyncope, syncope. EKG done on 05/22/2023 showed sinus rhythm with PACs, rate 61. Holter monitor done on 06/17/2023 for 22 hours showed sinus rhythm with average heart rate 60, frequent sinus Johan with 50% of the time heart rate below 60, no significant pauses, rare PACs. Test results reviewed with her. Offered reassurance. (3) Benign essential hypertension: Code(s): I10 - Essential (primary) hypertension Category: Medical Plan: As above (4) Mixed hyperlipidemia: Code(s): E78.2 - Mixed hyperlipidemia Category: Medical Plan: [place] LDL goal less than 70. Labs done 09/09/2023 showed LDL 143. She tells me she has not taking her simvastatin. Instructed her to try the simvastatin if she develops increased myalgias to let this office or her PCP know. Plan Time spent on chart review, documentation, interview and assessment Coding Level of Care Code Est Pt Level 4 (00064) Diagnoses CAD (coronary artery disease) I25.10 Heart palpitations R00.2 Benign essential hypertension I10 Mixed hyperlipidemia E78.2 Time Spent (min) 30
== END 2023-12-01 14:42 | disposition home or self-care (01) ==
PROVIDERS: PCP Internal Medicine Geriatric Medicine; Visit Provider Nurse Practitioner Family
DX: I25.10 Atherosclerotic heart disease of native coronary artery without angina pectoris (principal); R00.2 Palpitations; I10 Essential (primary) hypertension; E78.2 Mixed hyperlipidemia
CPT/HCPCS: 99214

== ENCOUNTER → 2023-12-01 13:19 | Outpatient (BNVA) | payer MEDICAID, SELFPAY | PROVIDERS: PCP Internal Medicine Geriatric Medicine; Visit Provider Nurse Practitioner Family | DX: I25.10 Atherosclerotic heart disease of native coronary artery without angina pectoris (principal); R00.2 Palpitations; I10 Essential (primary) hypertension; E78.2 Mixed hyperlipidemia; Z79.899 Other long term (current) drug therapy | CPT/HCPCS: 99212 ==

== ENCOUNTER 2023-12-16 13:33 | Outpatient (AMB) | payer MEDICAID, SELFPAY ==
--- NOTE | 2023-12-16 14:06 | MHC.OFFVIS ---
Intake Visit Reasons: hesitancy of micturation Intake Note: New patient is present for Hesitancy of Micturation Antibiotic Allergy: Levofloxacin, Clarithromycin Blood Thinner: Aspirin PVR: 0 Woolen Tester Required: Yes Woolen Tester Name: [id number] Lewis Allergies acetaminophen [From Vicodin] Allergy (Intermediate, Verified 12/25/23 14:09) Palpitations, Itch amoxicillin [Prevpac] Allergy (Intermediate, Verified 12/25/23 14:09) itchy throat hydrocodone [From Vicodin] Allergy (Intermediate, Verified 12/25/23 14:09) Palpitations, Itch ibuprofen [From Motrin] Allergy (Intermediate, Verified 12/25/23 14:09) UPSET STOMACH, abdominal pain lansoprazole [Prevpac] Allergy (Intermediate, Verified 12/25/23 14:09) itchy throat morphine [MORPHINE] Allergy (Intermediate, Verified 12/25/23 14:09) PALPATATIONS, PANIC ATTACKS, nauseas,panic attack, heart palpitations omeprazole [From PRILOSEC] Allergy (Intermediate, Verified 12/25/23 14:09) ITCHY THROAT pravastatin [PRAVASTATIN] Allergy (Intermediate, Verified 12/25/23 14:09) UNKNOWN rosuvastatin [From CRESTOR] Allergy (Intermediate, Verified 12/25/23 14:09) UNKNOWN terbinafine [TERBINAFINE] Allergy (Intermediate, Verified 12/25/23 14:09) UNKNOWN atorvastatin [From LIPITOR] Allergy (Unknown, Verified 12/25/23 14:09) UNKNOWN clarithromycin [From BIAXIN] Adverse Reaction (Intermediate, Verified 12/25/23 14:09) ABD PAIN, DIARRHEA gabapentin [GABAPENTIN] Adverse Reaction (Intermediate, Verified 12/25/23 14:09) UNKNOWN, nausea, dizziness levofloxacin [LEVOFLOXACIN] Adverse Reaction (Intermediate, Verified 12/25/23 14:09) PALPITATIONS tylenol with codeine Allergy (Unknown, Uncoded 12/16/23 14:19) fast heart rate HPI Comments Details: Farrah complains of LUTS, urine is hot and needs to push hard to release, and frequency. Also lower pelvic pain and flank pain Currently sexually active. Denies any vaginal irritation. [facility] Medical History (Updated 01/24/24 @ 22:43 by Masood Meier MD) SAB (spontaneous ) Encounter for well woman exam with routine gynecological exam Umbilical hernia Scalp mass Irritable bowel syndrome with diarrhea Allergic rhinitis Lumbar degenerative disc disease Breast pain during Carpal tunnel syndrome Arthritis Morbid obesity with BMI of 40.0-44.9, adult Insomnia Diabetes mellitus Benign essential hypertension Polyarthralgia Fibromyalgia Mixed hyperlipidemia Candidiasis of mouth and esophagus Thoracic spondylosis Surgical History (Updated 12/25/23 @ 14:54 by Eveline Abbott [facility]) Hx of dilation and curettage History of endometrial ablation Hx of colonoscopy History of esophagogastroduodenoscopy (EGD) History of dermoid cyst excision History of excision of lamina of cervical vertebra for decompression of spinal cord H/O hemorrhoidectomy History of appendectomy Family History Father NIDDY (non-insulin dependent diabetes mellitus in young) Cardiovascular disease Obesity Cancer of unknown origin Colon cancer Mother CAD (coronary artery disease) NIDDY (non-insulin dependent diabetes mellitus in young) Brother Schizophrenia Degenerative disc disease H/O lymph node cancer Sister Breast cancer Colon cancer Paternal Grandmother Ovarian cancer, Onset Age: 45 Daughter Fibromyalgia Hypertension Cancer of unknown origin Ovarian cancer Other Mental health problem Social History Household Members: None Housing: Apartment Alcohol intake: never Patient Tobacco Use Status: Never used Tobacco e-Cigarette/Vaping Use: Never Used Second Hand Smoke Exposure: No service: No Current occupational status: disabled 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 Sexual orientation: Straight/Heterosexual Gender identity: Female Cognitive needs: No Hearing needs: Yes Vision needs: Yes Female Reproductive History Menstrual Age of Menarche: 11 Review of Systems Const All systems reviewed & are unremarkable except as noted in HPI and below Reports no additional complaints Eyes Reports no additional complaints ENT Reports no additional complaints Card Reports no additional complaints Resp Reports no additional complaints GI Reports no additional complaints Reports as per HPI Musc Reports no additional complaints Skin/Breast Reports system reviewed and no additional complaints, except as documented Neuro Reports no additional complaints Psych Reports no additional complaints Endo Reports no additional complaints [place]/Lymph Reports no additional complaints Aller/Immun Reports no additional complaints Physical Exam Const General: cooperative, healthy appearing and no acute distress Orientation/consciousness: patient oriented x3 HEENT Head: Yes normal to inspection, Yes normocephalic and Yes atraumatic Eyes Conjunctivae: conjunctivae normal Neck Neck: Yes normal visual inspection and Yes trachea midline Chest Chest palpation & inspection: normal inspection of the chest Resp Effort & Inspection: normal respiratory effort Cardio Rate: regular rate GI Inspection: Yes normal to inspection Palpation (GI): Soft to palpation Skin General skin exam: no rashes or lesions noted Neuro General: patient oriented x3 Extrem General: No edema Psych Appearance: grossly normal Office Procedures Post Void Residual Post Residual Void Post Void Residual (PVR): 0 11464-Gcav Void Residual by ultrasound Results AMB Urinalysis, Automated UA Leukoctes 0 Tremaine/uL Last Edit by Cecilia Jones [facility] on 12/16/23 14:21 UA Nitrite Negative Last Edit by Cecilia Jones [facility] on 12/16/23 14:21 UA Urobilinogen 0.2 mg/dL Last Edit by Cecilia Jones [facility] on 12/16/23 14:21 UA Protein 0 mg/dL Last Edit by Cecilia Jones [facility] on 12/16/23 14:21 UA pH 5.0 Last Edit by Cecilia Jones [facility] on 12/16/23 14:21 UA Blood 0 Jose Luis/uL Last Edit by Cecilia Jones [facility] on 12/16/23 14:21 UA Specific [place] 1.020 Last Edit by Cecilia Jones [facility] on 12/16/23 14:21 UA Ketone Negative Last Edit by Cecilia Jones [facility] on 12/16/23 14:21 UA Bilirubin 0 mg/dL Last Edit by Cecilia Jones [facility] on 12/16/23 14:21 UA Glucose 1000 mg/dL Last Edit by Cecilia Jones [facility] on 12/16/23 14:21 Results Reviewed Results Reviewed: Laboratory Last Values Urine pH (Auto) 5.0 12/16/23 14:21 Specific [place] (Auto) 1.020 12/16/23 14:21 Urine Protein (Auto) 0 mg/dL 12/16/23 14:21 Glucose (UA)(Auto) 1000 mg/dL 12/16/23 14:21 Urine Ketones (Auto) Negative 12/16/23 14:21 Urine Blood (Auto) 0 Jose Luis/uL 12/16/23 14:21 Urine Nitrite (Auto) Negative 12/16/23 14:21 Urine Bilirubin (Auto) 0 mg/dL 12/16/23 14:21 Urine Urobilinogen (Auto) 0.2 mg/dL 12/16/23 14:21 Leukocyte Esterase (Auto) 0 Tremaine/uL 12/16/23 14:21 Date of Service: 10/29/23 EXAMINATION: US PELVIS CLINICAL INFORMATION: Pelvic and perineal pain. COMPARISON: CT abdomen/pelvis 05/22/2023. TECHNIQUE: Ultrasound of the pelvis is performed using both transabdominal and transvaginal transducers along with Doppler. Transvaginal imaging is performed due to inadequate visualization transabdominally. FINDINGS: Uterus: The uterus is anteverted and measures 8.7 x 4.3 x 4.1 cm. The double wall endometrial thickness is 2 mm. The uterus is smooth in contour and has normal myometrial echogenicity. Previously seen fibroid is not visible on the current study. There are some areas of punctate echogenicity seen in the uterus. Multiple nabothian cysts are present . Adnexa: The right ovary was not visualized. The left ovary measured 2.6 x 1.6 x 1.6 cm for a volume of 3.5 mL. IMPRESSION: No significant abnormality is seen. Punctate areas of echogenicity seen in the uterus could be secondary to adenomyosis as no calcifications were seen on the fairly recent CT scan. These areas could be secondary to endometrial ablation as provided by the patient in her history. If pelvic pain persists, pelvic MRI may be worthwhile for further evaluation. Date of Service: 05/22/23 EXAMINATION: CT ABDOMEN AND PELVIS WITHOUT CONTRAST CLINICAL INFORMATION: Left flank pain COMPARISON: CT abdomen pelvis October 05, 2021 TECHNIQUE: Multidetector volumetric imaging was performed from the superior aspect of the liver through the pubic symphysis. Sagittal and coronal reformatted images were obtained on the technologist's workstation. This CT examination was performed using dose optimization techniques as appropriate, variously including the following: *Automated exposure control *Adjustment of mA and/or kV according to patient size (this includes techniques or standardized protocols for targeted exams where dose is matched to indication/reason for exam; i.e. extremities or head) *Use of iterative reconstruction technique DLP: 786 mGy-cm FINDINGS: LUNG BASES: The visualized lung bases are unremarkable. LIVER, GALLBLADDER, AND BILIARY TREE: The liver is normal in size, shape, and attenuation. No focal hepatic lesion or biliary ductal dilatation is present. The gallbladder is unremarkable with no evidence of radiopaque gallstones, gallbladder wall thickening, or obvious pericholecystic inflammatory changes. PANCREAS: Unremarkable. SPLEEN: Unremarkable. ADRENAL GLANDS: Unremarkable. KIDNEYS AND URETERS: The kidneys are normal in size, shape, and attenuation. No hydronephrosis, hydroureter, or calculi seen. No perinephric stranding. Stable 1 cm cyst midpole right kidney. No follow-up imaging is recommended for simple renal cyst. BLADDER: Unremarkable. GASTROINTESTINAL TRACT: The small and large bowel are unremarkable. The appendix is unremarkable. ABDOMINAL WALL: No significant hernia is appreciated. LYMPH NODES: Normal. VASCULAR: Unremarkable. PELVIC VISCERA: Unremarkable. OSSEOUS STRUCTURES: Unremarkable. IMPRESSION: No significant abnormality. Assessment & Plan Assessment & Plan (1) Right flank pain: Code(s): R10.9 - Unspecified abdominal pain Category: Medical (2) Urinary frequency: Code(s): R35.0 - Frequency of micturition Category: Medical Plan Renal US Orders: Orders AMB Urinalysis Automated 12/16/23 Z13.9 - Encounter for screening, unspecified AMB Post Void Residual by ultrasound 12/16/23 R39.11 - Hesitancy of micturition US renal BI 12/16/23 R10.9 - Unspecified abdominal pain Patient Instructions: The patient had an opportunity to ask questions regarding treatment plan. The patient expressed understanding and agreement with the above treatment plan. The patient is aware they should contact our office by phone for worsening of their current condition or the appearance of new symptoms. Compliance is encouraged with any medications and followup testing that is ordered. It is a privilege to be allowed the opportunity to participate in the urologic care of your patient. If you have any questions or concerns regarding treatment for the above conditions please do not hesitate to contact me. The office telephone contact is [phone]. This note is constructed in part using voice recognition software. While every effort has been made to ensure accuracy terra cotta roofer helper errors may have been included. Yours sincerely, Masood Meier MD Coding Level of Care Code New Pt Level 3 (23799) Diagnoses Right flank pain R10.9 Urinary frequency R35.0 CPT Codes Post Residual Void - PVR CPT Code: 33441-Qppa Void Residual by ultrasound ([id number])
== END 2023-12-16 15:05 | disposition home or self-care (01) ==
PROVIDERS: PCP Internal Medicine Geriatric Medicine; Visit Provider Urology
DX: R10.9 Unspecified abdominal pain (principal); R35.0 Frequency of micturition
CPT/HCPCS: 99203

== ENCOUNTER → 2023-12-16 13:33 | Outpatient (BNVA) | payer MEDICAID, SELFPAY | PROVIDERS: PCP Internal Medicine Geriatric Medicine; Visit Provider Urology | DX: R35.0 Frequency of micturition (principal); R10.9 Unspecified abdominal pain; R39.11 Hesitancy of micturition | CPT/HCPCS: 51798; 81003; 99202 ==

== ENCOUNTER 2023-12-21 12:13 | Outpatient (REF) | payer MEDICAID, SELFPAY ==
--- NOTE | ~2023-12-21 | XR_ITS ---
EXAMINATION: XR CHEST CLINICAL INFORMATION: Night sweats. COMPARISON: 11/04/2023. TECHNIQUE: 2 views of the chest were obtained. FINDINGS: Cervical spine hardware redemonstrated. There is no gross pneumothorax. Heart size is normal. Dextroscoliosis of the thoracic spine with multilevel degenerative changes. No focal consolidation. No pleural effusion. XR/XR chest 2V IMPRESSION: No evidence of pneumonia.
[2023-12-21 12:38] LABS: MANUAL DIFF FLAG NO
[2023-12-21 13:01] LABS: Basophils Absolute Auto 0.1 X10*3/uL (0.0-0.2); Basophils Percent Auto 0.6 % (0-2); Eosinophils Absolute Auto 0.2 X10*3/uL (0.0-0.4); Eosinophils Percent Auto 2.1 % (0-4); Hematocrit 41.8 % (37.0-47.0); Hemoglobin 13.4 g/dl (12.0-16.0); Imm Gran Abs Auto 0.03 X10*3/uL (0.00-0.03); Imm Gran Pct Auto 0.4 % (0.0-0.4); Lymphocytes Absolute Auto 2.5 X10*3/uL (1.2-4.9); Lymphocytes Percent Auto 32.6 % (20-40); Mean Corpuscular HGB Conc 32.1 g/dl (31.0-35.0); Mean Corpuscular Hemoglobin 26.7 pg (27.0-33.0); Mean Corpuscular Volume 83.4 fL (80.0-98.0); Monocytes Absolute Auto 0.6 X10*3/uL (0.1-1.2); Monocytes Percent Auto 7.5 % (2-11); Neutrophils Absolute Auto 4.4 x10*3/uL (2.0-8.3); Neutrophils Percent Auto 56.8 % (45-73); Platelet Count 287 X10*3/uL (160-400); Red Blood Count 5.01 X10*6/uL (4.20-5.50); Red Cell Distribution Width 14.6 % (11.0-16.0); White Blood Count 7.7 X10*3/uL (4.8-10.8)
[2023-12-21 13:30] LABS: Alanine Aminotransferase 31 U/L (0-31); Albumin Level 4.2 g/dL (3.5-5.0); Alkaline Phosphatase 116 U/L (39-117); Anion Gap 11 (12-20); Aspartate Amino Transferase 27 U/L (5-31); Bilirubin Total 0.8 mg/dL (0.0-1.0); Blood Urea Nitrogen 12 mg/dL (9-16); Calcium 9.5 mg/dL (8.4-10.2); Carbon Dioxide 26 mmol/L (22-29); Chloride 109 mmol/L (96-108); Estimated Glomerular Filt Rate > 60; Glucose Random 110 mg/dL (60-115); Potassium 3.4 mmol/L (3.3-5.1); Sodium 143 mmol/L (135-145); Total Protein 7.4 g/dL (6.5-8.0)
[2023-12-21 14:07] LABS: HIV AB/AG Nonreactive (Nonreactive); HIV Num 1 0.04 S/CO (0.00-0.99)
[2023-12-21 15:07] LABS: Appearance Urine Clear; Color Urine Yellow; Glucose Urine UA >=1000 mg/dL (Negative); Leukocyte Esterase Urine Negative (Negative); Nitrite Urine Negative (Negative); PH 5.5 (5.0-9.0); Specific Gravity - Urine >= 1.030 (1.005-1.025); UMIC TRIGGER UACC YES; Urine Blood Negative (Negative); Urine Ketones Negative (Negative); Urine Protein Negative (Neg-Trace)
[2023-12-21 15:19] LABS: Bacteria Urine Trace (None Seen); RBC Urine 0-2 /HPF (0-2); UACC Culture Trigger YES
[2023-12-24 02:18] LABS: TS Negative Control Passed; TS Panel A 0; TS Panel B 0; TS Positive Control Passed; TSpotTB Negative (Negative)
== END 2023-12-21 12:14 | disposition home or self-care (01) ==
LOC: HO.XRAY 12:13
PROVIDERS: PCP Internal Medicine Geriatric Medicine; Visit Provider Internal Medicine Geriatric Medicine
DX: R61 Generalized hyperhidrosis (principal); E11.49 Type 2 diabetes mellitus with other diabetic neurological complication; R76.11 Nonspecific reaction to tuberculin skin test without active tuberculosis
CPT/HCPCS: 36415; 71046; 80053; 81001; 81003; 85025; 86481; 87040; 87086; 87147; 87389

== ENCOUNTER 2023-12-24 13:36 | Outpatient (REF) | payer MEDICAID, SELFPAY ==
--- NOTE | ~2023-12-24 | US_ITS ---
EXAMINATION: US RETROPERITONEAL LIMITED (RENAL ONLY) CLINICAL INFORMATION: Unspecified abdominal pain. COMPARISON: CT abdomen and pelvis 05/22/2023. Ultrasound abdomen 10/05/2021 and 07/10/2021. CT abdomen pelvis with contrast 10/05/2021. TECHNIQUE: Real-time imaging of the kidneys. FINDINGS: RIGHT KIDNEY: 11.7 x 5.1 x 5.6 cm (SAG x AP x TRV). The kidney is normal in size, contour, and echogenicity. Renal cortical thickness is normal. No calculi or focal parenchymal lesions. No gross hydronephrosis. There is a question of some mild caliectasis versus small parapelvic cysts. LEFT KIDNEY: 12.3 x 4.7 x 5.3 cm (SAG x AP x TRV). The kidney is normal in size, contour, and echogenicity. Renal cortical thickness is normal. There is a lower pole 4 mm echogenic focus seen consistent with a nonobstructing calculus. No focal parenchymal lesions or gross hydronephrosis. There is a question of some mild caliectasis versus small parapelvic cysts. US/US renal BI IMPRESSION: 1. Nonobstructing 4 mm left lower pole renal calculus. 2. Question of mild caliectasis versus small parapelvic cysts. This question could be resolved with a CT urogram if clinically important.
== END 2023-12-24 13:37 | disposition home or self-care (01) ==
LOC: HO.US 13:36
PROVIDERS: PCP Internal Medicine Geriatric Medicine; Visit Provider Urology
DX: R10.9 Unspecified abdominal pain (principal)
CPT/HCPCS: 76775

== ENCOUNTER 2023-12-25 13:15 | Outpatient (AMB) | payer MEDICAID, SELFPAY ==
[2023-12-25 14:09] VITALS: BP 112/74; BMI 37.9
--- NOTE | 2023-12-25 14:09 | MHC.OFFVIS ---
Vital Signs 12/25/23 14:09 Height 5 ft 3 in Weight 214 lb BMI 37.9 BP 112/74 Intake Visit Reasons: US follow up Geology Teacher Required: Yes Geology Teacher Language: Occupational Therapy Professor Services: Geology Teacher Present (in person) Geology Teacher Name: Eveline STORM Information Interpreted: non-clinical & clinical Sample Maker Hand: Sample Maker Hand Present Allergies acetaminophen [From Vicodin] Allergy (Intermediate, Verified 12/25/23 14:09) Palpitations, Itch amoxicillin [Prevpac] Allergy (Intermediate, Verified 12/25/23 14:09) itchy throat hydrocodone [From Vicodin] Allergy (Intermediate, Verified 12/25/23 14:09) Palpitations, Itch ibuprofen [From Motrin] Allergy (Intermediate, Verified 12/25/23 14:09) UPSET STOMACH, abdominal pain lansoprazole [Prevpac] Allergy (Intermediate, Verified 12/25/23 14:09) itchy throat morphine [MORPHINE] Allergy (Intermediate, Verified 12/25/23 14:09) PALPATATIONS, PANIC ATTACKS, nauseas,panic attack, heart palpitations omeprazole [From PRILOSEC] Allergy (Intermediate, Verified 12/25/23 14:09) ITCHY THROAT pravastatin [PRAVASTATIN] Allergy (Intermediate, Verified 12/25/23 14:09) UNKNOWN rosuvastatin [From CRESTOR] Allergy (Intermediate, Verified 12/25/23 14:09) UNKNOWN terbinafine [TERBINAFINE] Allergy (Intermediate, Verified 12/25/23 14:09) UNKNOWN atorvastatin [From LIPITOR] Allergy (Unknown, Verified 12/25/23 14:09) UNKNOWN clarithromycin [From BIAXIN] Adverse Reaction (Intermediate, Verified 12/25/23 14:09) ABD PAIN, DIARRHEA gabapentin [GABAPENTIN] Adverse Reaction (Intermediate, Verified 12/25/23 14:09) UNKNOWN, nausea, dizziness levofloxacin [LEVOFLOXACIN] Adverse Reaction (Intermediate, Verified 12/25/23 14:09) PALPITATIONS tylenol with codeine Allergy (Unknown, Uncoded 12/16/23 14:19) fast heart rate Is last menstrual period known: Yes HPI Comments Details: Patient is here to discuss her ultrasound findings. She admits to hot flashes and excessive sweating, and vaginal dryness. Last menstrual period was October of 2022. She is recently seen her primary care Dr. Name and has done a workup for the sweating she has not had her follow up visit for results. Lab work is not viewed here in our system from the [facility]. She denies any pelvic pain. [facility] Medical History (Updated 12/25/23 @ 14:54 by Eveline Abbott CMA) SAB (spontaneous ) Encounter for well woman exam with routine gynecological exam Umbilical hernia Scalp mass Irritable bowel syndrome with diarrhea Allergic rhinitis Lumbar degenerative disc disease Breast pain during Carpal tunnel syndrome Arthritis Morbid obesity with BMI of 40.0-44.9, adult Insomnia Diabetes mellitus Benign essential hypertension Polyarthralgia Fibromyalgia Mixed hyperlipidemia Candidiasis of mouth and esophagus Thoracic spondylosis Surgical History (Updated 12/25/23 @ 14:54 by Eveline Abbott CMA) Hx of dilation and curettage History of endometrial ablation Hx of colonoscopy History of esophagogastroduodenoscopy (EGD) History of dermoid cyst excision History of excision of lamina of cervical vertebra for decompression of spinal cord H/O hemorrhoidectomy History of appendectomy Family History Father NIDDY (non-insulin dependent diabetes mellitus in young) Cardiovascular disease Obesity Cancer of unknown origin Colon cancer Mother CAD (coronary artery disease) NIDDY (non-insulin dependent diabetes mellitus in young) Brother Schizophrenia Degenerative disc disease H/O lymph node cancer Sister Breast cancer Colon cancer Paternal Grandmother Ovarian cancer, Onset Age: 45 Daughter Fibromyalgia Hypertension Cancer of unknown origin Ovarian cancer Other Mental health problem Social History Household Members: None Housing: Apartment Alcohol intake: never Patient Tobacco Use Status: Never used Tobacco e-Cigarette/Vaping Use: Never Used Second Hand Smoke Exposure: No service: No Current occupational status: disabled 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 Sexual orientation: Straight/Heterosexual Gender identity: Female Cognitive needs: No Hearing needs: Yes Vision needs: Yes Female Reproductive History Menstrual Age of Menarche: 11 Review of Systems Const All systems reviewed & are unremarkable except as noted in HPI and below Endo Reports no additional complaints Physical Exam Vital Signs: Last Vital Signs BP 112/74 12/25/23 14:09 BMI result Body Mass Index 37.9 Const General: cooperative, healthy appearing and no acute distress Psych Appearance: well kempt Attitude: cooperative Thought process: Normal thought process present Results Reviewed Results Reviewed: [address] [address] Ultrasound Report Signed Patient: Farrah Yancey MR#: [id number] : 1970 Acct:[id number] Age/Sex: 53 / F ADM Date: 10/29/23 Loc: HO.US Attending Dr: Gisella Pena CNM Ordering Physician: Gisella Pena CNM Date of Service: 10/29/23 Procedure(s): US pelvic and transvaginal Accession Number(s): [id number] cc: Gisella Pena CNM; Name,Matt APPIAH~ EXAMINATION: US PELVIS CLINICAL INFORMATION: Pelvic and perineal pain. COMPARISON: CT abdomen/pelvis 05/22/2023. TECHNIQUE: Ultrasound of the pelvis is performed using both transabdominal and transvaginal transducers along with Doppler. Transvaginal imaging is performed due to inadequate visualization transabdominally. FINDINGS: Uterus: The uterus is anteverted and measures 8.7 x 4.3 x 4.1 cm. The double wall endometrial thickness is 2 mm. The uterus is smooth in contour and has normal myometrial echogenicity. Previously seen fibroid is not visible on the current study. There are some areas of punctate echogenicity seen in the uterus. Multiple nabothian cysts are present . Adnexa: The right ovary was not visualized. The left ovary measured 2.6 x 1.6 x 1.6 cm for a volume of 3.5 mL. US/US pelvic and transvaginal IMPRESSION: No significant abnormality is seen. Punctate areas of echogenicity seen in the uterus could be secondary to adenomyosis as no calcifications were seen on the fairly recent CT scan. These areas could be secondary to endometrial ablation as provided by the patient in her history. If pelvic pain persists, pelvic MRI may be worthwhile for further evaluation. Dictated By: Robert Anaya MD Signed By: <Electronically signed by Robert Anaya MD in OV> 11/08/23 [id number] DD/ 1421 TD/TT: Cooker Meal: SS Assessment & Plan Assessment & Plan (1) Encounter to discuss test results: Code(s): Z71.2 - Person consulting for explanation of examination or test findings (2) Hot flashes: Code(s): R23.2 - Flushing (3) Vaginal dryness: Code(s): N89.8 - Other specified noninflammatory disorders of vagina Plan Discussed: Ultrasound findings, no longer has pelvic pain. Advised to call with any postmenopausal bleeding or any new onset of pelvic pain. Self-help measures for hot flashes. Follow up with Dr. Wu to discuss test results. Vaginal treatment with [id number] Replens use twice a week may take up to 12 weeks to see benefits follow up if not helpful we will consider vaginal estrogen if no contraindications. She has currently not interested in any HRT today for hot flashes. Annual exam is also booked for October of 2024. All of her questions and concerns were addressed to the best of my ability and shared decision making. She is agreeable to the plan of care. This note is constructed using voice recognition software. While every effort has been made to ensure accuracy, pipe fittings molder errors may have been included. Coding Level of Care Code Est Pt Level 3 (02578) Diagnoses Encounter to discuss test results Z71.2 Hot flashes R23.2 Vaginal dryness N89.8
== END 2023-12-25 14:50 | disposition home or self-care (01) ==
PROVIDERS: PCP Internal Medicine Geriatric Medicine; Visit Provider Advanced Practice Midwife
DX: Z71.2 Person consulting for explanation of examination or test findings (principal); R23.2 Flushing; N89.8 Other specified noninflammatory disorders of vagina
CPT/HCPCS: 99213

== ENCOUNTER → 2023-12-25 13:15 | Outpatient (BNVA) | payer MEDICAID, SELFPAY | PROVIDERS: PCP Internal Medicine Geriatric Medicine; Visit Provider Advanced Practice Midwife | DX: Z71.2 Person consulting for explanation of examination or test findings (principal); R23.2 Flushing; N89.8 Other specified noninflammatory disorders of vagina | CPT/HCPCS: 99212 ==

== ENCOUNTER 2024-03-10 09:03 | Outpatient (REF) | payer MEDICAID, SELFPAY ==
[2024-03-11 05:53] LABS: CT PCR NOT DETECTED (Not Detect.); NG PCR NOT DETECTED (Not Detect.)
[2024-03-11 11:19] LABS: Bacterial Vaginosis PCR NEGATIVE (Negative); Candida Group PCR NOT DETECTED (Not Detect); Candida glab krusei PCR DETECTED (Not Detect); Trichomonas vaginalis PCR NOT DETECTED (Not Detect)
== END 2024-03-10 09:04 | disposition home or self-care (01) ==
LOC: HO.LAB 09:03
PROVIDERS: PCP Internal Medicine Geriatric Medicine; Visit Provider Advanced Practice Midwife
DX: N95.0 Postmenopausal bleeding (principal); R10.2 Pelvic and perineal pain; R21 Rash and other nonspecific skin eruption
CPT/HCPCS: 0352U; 81003; 87491; 87591; 99212

== ENCOUNTER 2024-03-10 09:03 | Outpatient (AMB) | payer MEDICAID, SELFPAY ==
[2024-03-10 09:54] VITALS: BP 126/76; BMI 38.1
--- NOTE | 2024-03-10 09:54 | A.OFFVIS_ITS ---
Vital Signs 03/10/24 09:54 Height 5 ft 3 in Weight 215 lb BMI 38.1 BP 126/76 Intake Visit Reasons: PMB Book Agent Required: Yes Book Agent Services: Book Agent Present (in person) Book Agent Name: Eveline STORM Information Interpreted: clinical only New Media Strategist: New Media Strategist Present Allergies acetaminophen [From Vicodin] Allergy (Intermediate, Verified 03/10/24 09:56) Palpitations, Itch amoxicillin [Prevpac] Allergy (Intermediate, Verified 03/10/24 09:56) itchy throat hydrocodone [From Vicodin] Allergy (Intermediate, Verified 03/10/24 09:56) Palpitations, Itch ibuprofen [From Motrin] Allergy (Intermediate, Verified 03/10/24 09:56) UPSET STOMACH, abdominal pain lansoprazole [Prevpac] Allergy (Intermediate, Verified 03/10/24 09:56) itchy throat morphine [MORPHINE] Allergy (Intermediate, Verified 03/10/24 09:56) PALPATATIONS, PANIC ATTACKS, nauseas,panic attack, heart palpitations omeprazole [From PRILOSEC] Allergy (Intermediate, Verified 03/10/24 09:56) ITCHY THROAT pravastatin [PRAVASTATIN] Allergy (Intermediate, Verified 03/10/24 09:56) UNKNOWN rosuvastatin [From CRESTOR] Allergy (Intermediate, Verified 03/10/24 09:56) UNKNOWN terbinafine [TERBINAFINE] Allergy (Intermediate, Verified 03/10/24 09:56) UNKNOWN atorvastatin [From LIPITOR] Allergy (Unknown, Verified 03/10/24 09:56) UNKNOWN clarithromycin [From BIAXIN] Adverse Reaction (Intermediate, Verified 03/10/24 09:56) ABD PAIN, DIARRHEA gabapentin [GABAPENTIN] Adverse Reaction (Intermediate, Verified 03/10/24 09:56) UNKNOWN, nausea, dizziness levofloxacin [LEVOFLOXACIN] Adverse Reaction (Intermediate, Verified 03/10/24 09:56) PALPITATIONS tylenol with codeine Allergy (Unknown, Uncoded 03/10/24 09:56) fast heart rate Is last menstrual period known: Yes Last menstrual period: 03/06/24 HPI Comments Details: Patient is here today with her Noah, she has concerns of postmenopausal bleeding, onset of bleeding 03/06-03/10. additionally has right lower pelvic pain and bilateral groin itching and irritation. She admits to elevated blood sugar with diabetes. History of ablation. History of recent surgery at [facility] to remove an extra bone (she is unsure of the procedure name)in her esophageal region and has titanium plates inserted limited range of motion and movement present as she is still appears to be uncomfortable. [facility] Medical History (Updated 03/10/24 @ 14:14 by Gisella Pena CNM) Encounter for well woman exam with routine gynecological exam Umbilical hernia Scalp mass Irritable bowel syndrome with diarrhea Allergic rhinitis Lumbar degenerative disc disease Breast pain during Carpal tunnel syndrome Arthritis Morbid obesity with BMI of 40.0-44.9, adult Insomnia Diabetes mellitus Benign essential hypertension Polyarthralgia Fibromyalgia Mixed hyperlipidemia Candidiasis of mouth and esophagus Thoracic spondylosis Surgical History Hx of dilation and curettage History of endometrial ablation Hx of colonoscopy History of esophagogastroduodenoscopy (EGD) History of dermoid cyst excision History of excision of lamina of cervical vertebra for decompression of spinal cord H/O hemorrhoidectomy History of appendectomy Family History Father NIDDY (non-insulin dependent diabetes mellitus in young) Cardiovascular disease Obesity Cancer of unknown origin Colon cancer Mother CAD (coronary artery disease) NIDDY (non-insulin dependent diabetes mellitus in young) Brother Schizophrenia Degenerative disc disease H/O lymph node cancer Sister Breast cancer Colon cancer Paternal Grandmother Ovarian cancer, Onset Age: 45 Daughter Fibromyalgia Hypertension Cancer of unknown origin Ovarian cancer Other Mental health problem Social History Household Members: None Housing: Apartment Alcohol intake: never Patient Tobacco Use Status: Never used Tobacco e-Cigarette/Vaping Use: Never Used Second Hand Smoke Exposure: No service: No Current occupational status: disabled 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 Sexual orientation: Straight/Heterosexual Gender identity: Female Cognitive needs: No Hearing needs: Yes Vision needs: Yes Female Reproductive History Menstrual Age of Menarche: 11 Date of last menstrual period: 03/06/24 control method: none Total pregnancies: 7 Full term: 5 Review of Systems Const All systems reviewed & are unremarkable except as noted in HPI and below Physical Exam Vital Signs: Last Vital Signs BP 126/76 03/10/24 09:54 BMI result Body Mass Index 38.1 Const General: cooperative, healthy appearing and no acute distress Orientation/consciousness: patient oriented x3 GI Inspection: Yes normal to inspection Palpation (GI): Soft to palpation and Other GI palpation findings present (Nontender) Rectal Exam - Female: visual inspection normal Other: Bilateral fungal rash General: Yes bladder normal to palpation External Female Exam: normal appearance of the urethra Speculum Exam - Vagina: normal appearance of the vagina, normal palpation and normal vaginal discharge Speculum Exam - Cervix: normal appearance of the cervix and normal palpation Bimanual exam- vagina & uterus: normal bimanual exam, normal palpation, uterine size normal, bladder normal to palpation, normal palpation, uterine shape normal and non-tender Bimanual Exam- Adnexa, other: normal adnexae and Other (Slightly tender right sided nearer midline) Neuro General: patient oriented x3 Results AMB Urinalysis, Automated UA Leukoctes 0 Tremaine/uL Last Edit by Sandip Bautista CMA on 03/10/24 10:16 UA Nitrite Negative Last Edit by Sandip Bautista CMA on 03/10/24 10:16 0 Sandip Bautista 03/10/24 10:16 UA Urobilinogen 3.5 mg/dL Last Edit by Sandip Bautista CMA on 03/10/24 10:1 6 UA Protein 0 mg/dL Last Edit by Sanidp Bautista CMA on 03/10/24 10:16 UA pH 5.5 Last Edit by Sandip Bautista CMA on 03/10/24 10:16 UA Blood 0 Jose Luis/uL Last Edit by Sandip Bautista CMA on 03/10/24 10:16 UA Specific [place] 1,020 Last Edit by Sandip Bautista CMA on 03/10/24 10: 16 UA Ketone Negative Last Edit by Sandip Bautista CMA on 03/10/24 10:16 UA Bilirubin 0 mg/dL Last Edit by Sandip Bautista CMA on 03/10/24 10:16 UA Glucose 3 mg/dL Last Edit by Sandip Bautista CMA on 03/10/24 10:16 3+ Sandip Bautista 03/10/24 10:16 Results Reviewed Results Reviewed: Laboratory Last Values Urine pH (Auto) 5.5 03/10/24 10:13 Specific [place] (Auto) 1,020 03/10/24 10:13 Urine Protein (Auto) 0 mg/dL 03/10/24 10:13 Glucose (UA)(Auto) 3 mg/dL 03/10/24 10:13 Urine Ketones (Auto) Negative 03/10/24 10:13 Urine Blood (Auto) 0 Jose Luis/uL 03/10/24 10:13 Urine Nitrite (Auto) Negative 03/10/24 10:13 Urine Bilirubin (Auto) 0 mg/dL 03/10/24 10:13 Urine Urobilinogen (Auto) 3.5 mg/dL 03/10/24 10:13 Leukocyte Esterase (Auto) 0 Trem[place]/uL 03/10/24 10:13 [place] [address] Ultrasound Report Signed Patient: Farrah Yancey MR#: [id number] : 1970 Acct:[id number] Age/Sex: 53 / F ADM Date: 10/29/23 Loc: HO.US Attending Dr: Gisella Pena CNM Ordering Physician: Gisella Pena CNM Date of Service: 10/29/23 Procedure(s): US pelvic and transvaginal Accession Number(s): [id number] cc: Gisella Pena CNM; Name,Matt APPIAH~ EXAMINATION: US PELVIS CLINICAL INFORMATION: Pelvic and perineal pain. COMPARISON: CT abdomen/pelvis 05/22/2023. TECHNIQUE: Ultrasound of the pelvis is performed using both transabdominal and transvaginal transducers along with Doppler. Transvaginal imaging is performed due to inadequate visualization transabdominally. FINDINGS: Uterus: The uterus is anteverted and measures 8.7 x 4.3 x 4.1 cm. The double wall endometrial thickness is 2 mm. The uterus is smooth in contour and has normal myometrial echogenicity. Previously seen fibroid is not visible on the current study. There are some areas of punctate echogenicity seen in the uterus. Multiple nabothian cysts are present . Adnexa: The right ovary was not visualized. The left ovary measured 2.6 x 1.6 x 1.6 cm for a volume of 3.5 mL. US/US pelvic and transvaginal IMPRESSION: No significant abnormality is seen. Punctate areas of echogenicity seen in the uterus could be secondary to adenomyosis as no calcifications were seen on the fairly recent CT scan. These areas could be secondary to endometrial ablation as provided by the patient in her history. If pelvic pain persists, pelvic MRI may be worthwhile for further evaluation. Dictated By: Robert Anaya MD Signed By: <Electronically signed by Robert Anaya MD in OV> 11/08/23 [id number] DD/ 1421 TD/TT: Orthopedic Radiologic Technologist: SS Assessment & Plan Assessment & Plan (1) Postmenopausal bleeding: Code(s): N95.0 - Postmenopausal bleeding (2) Pelvic pain: Code(s): R10.2 - Pelvic and perineal pain (3) Rash of groin: Code(s): R21 - Rash and other nonspecific skin eruption Plan Plan pelvic ultrasound, previous ultrasound reviewed endometrial lining was 2 mm. GC chlamydia and BV panel, await results for plan of care. Urine-3+ glucose noted. Pelvic warnings reviewed and when to call for urgent Care. Rx sent in for fungal rash, advised to wear loose clothing, boxer type underwear. Follow up in person to discuss plan of care, advised if bleeding repeats she will need a biopsy. All of her questions and concerns were addressed to the best of my ability and shared decision making. She is agreeable to the plan of care. This note is constructed using voice recognition software. While every effort has been made to ensure accuracy, lining presser errors may have been included. Orders: Orders Bacterial Vaginosis Panel Today N95.0 - Postmenopausal bleeding, R10.2 - Pelvic and perineal pain US pelvic and transvaginal Today N95.0 - Postmenopausal bleeding, R10.2 - Pelvic and perineal pain AMB Urinalysis Automated Today R35.0 - Frequency of micturition CT NG by PCR Today N95.0 - Postmenopausal bleeding, R10.2 - Pelvic and perineal pain Medications: New clotrimazole-betamethasone 1-0.05 % apply externally a thin coat to the area 1 appl topical BID 7 days 45 grams 0RF itching Coding Level of Care Code Est Pt Level 4 (44169) Diagnoses Postmenopausal bleeding N95.0 Pelvic pain R10.2 Rash of groin R21
== END 2024-03-10 10:45 | disposition home or self-care (01) ==
LOC: HO.HWS 09:03
PROVIDERS: PCP Internal Medicine Geriatric Medicine; Visit Provider Advanced Practice Midwife
DX: N95.0 Postmenopausal bleeding (principal); R10.2 Pelvic and perineal pain; R21 Rash and other nonspecific skin eruption; R35.0 Frequency of micturition
CPT/HCPCS: 99214

== ENCOUNTER 2024-03-10 10:29 | Outpatient (REF) | payer MEDICAID, SELFPAY | END 2024-03-10 10:30 | disposition home or self-care (01) | LOC: HO.LNP 10:29 | PROVIDERS: Visit Provider Advanced Practice Midwife | DX: Z13.89 Encounter for screening for other disorder (principal) ==

== ENCOUNTER 2024-03-17 13:46 | Outpatient (REF) | payer MEDICAID, SELFPAY ==
--- NOTE | ~2024-03-17 | US_ITS ---
EXAMINATION: US PELVIS CLINICAL INFORMATION: Postmenopausal bleeding. COMPARISON: Pelvic ultrasound 10/29/[address] abdomen and pelvis 05/22/2023. TECHNIQUE: Ultrasound of the pelvis is performed using both transabdominal and transvaginal transducers along with Doppler. Transvaginal imaging is performed due to inadequate visualization transabdominally. FINDINGS: UTERUS: The uterus is anteverted and measures 7.8 x 4.2 x 5.1 cm. The double wall endometrial thickness is 0.3 mm. The uterus is smooth in contour and has normal myometrial echogenicity. Previously seen punctate areas of echogenicity not as apparent on the current study as on the prior. No uterine fibroids are seen. Nabothian cysts are seen in the cervix. ADNEXA: There is no pelvic ascites or fluid collection. Right ovary measures 2.6 x 1.5 x 1.3 cm for a volume of 2.6 mL. Left ovary measures 2.1 x 1.4 x 1.6 cm for a volume of 2.4 mL. US/US pelvic and transvaginal IMPRESSION: Unremarkable pelvic ultrasound. Electronically signed by: Robert Anaya MD 05/18/2024 05:12 PM [facility] [place]
== END 2024-03-17 13:47 | disposition home or self-care (01) ==
LOC: HO.US 13:46
PROVIDERS: PCP Internal Medicine Geriatric Medicine; Visit Provider Advanced Practice Midwife
DX: R10.2 Pelvic and perineal pain (principal); N95.0 Postmenopausal bleeding
CPT/HCPCS: 76830; 76856

== ENCOUNTER 2024-03-31 14:38 | Emergency (ER) | payer MEDICAID, SELFPAY ==
--- NOTE | ~2024-03-31 | XR_ITS ---
EXAMINATION: XR CHEST 2 VIEW CLINICAL INFORMATION: Shortness of breath COMPARISON: 12/21/2023 TECHNIQUE: PA and lateral views of the chest obtained. FINDINGS: There are low lung volumes, but the lungs are clear. There are no pleural effusions. The cardiomediastinal silhouette is normal. XR/XR chest 2V IMPRESSION: No acute disease. Electronically signed by: Rj Landeros MD 03/31/2024 03:47 PM EDT
[2024-03-31 15:30] LABS: IDNOW Serial# 08D9AD1C; Strep A Nucleic Acid Negative (Negative)
[2024-03-31 15:32] VITALS: BP 180/77; PULSE 77; RESP 16; TEMP 36.6; O2SAT 97; BMI 38.1
--- NOTE | 2024-03-31 15:32 | ED_ITS ---
HPI - URI/Sore Throat General Chief Complaint: Upper Respiratory Symptoms Stated Complaint: sob-sore throat Time Seen by Provider: 03/31/24 17:23 Source: patient Mode of arrival: ambulatory Limitations: no limitations History of Present Illness ED Provider: Trista Salazar PA-C HPI Narrative: 54 yo female with history of CAD, asthma, GERD, migraines, psoriatic arthritis who presents to the ER for evaluation of 5 days of headache, cough, sore throat, congestion. using nebs and inhalers at home. no fevers, abdominal pain, n/v/d. pain in the ribs and head when she coughs. not sleeping well due to the cough. she is here with her who has similar symptoms. MD elicited complaint: cough, sore throat and nasal congestion Pertinent past history: asthma Onset (ago): day(s) (5) Consistency: progressively worsening Severity: moderate Description of mucous: yellow Able to tolerate fluids by mouth: Yes Exacerbating factors: swallowing and exertion Associated symptoms: myalgias, headache, nasal congestion, sore throat, cough and shortness of breath Treatments prior to arrival: none Related Data Home Medications ?Medication ?Instructions ?Recorded ?Confirmed albuterol sulfate 90 mcg/actuation 2 puff PO QID PRN 03/21/20 12/01/23 aerosol inhaler calcipotriene 0.005 % scalp topical 02/04/21 12/01/23 solution albuterol sulfate 2.5 mg/3 mL 2.5 mg continuous nebulization QID 12/06/21 12/01/23 (0.083 %) solution for nebulization PRN shortness of breath or wheezing clindamycin phosphate 1 % lotion topical DAILY 07/25/22 12/01/23 sumatriptan succinate 50 mg tablet 50 mg PO Q2-4H PRN migraine 03/05/23 12/01/23 headache empagliflozin 12.5 mg-metformin 1 tab PO BID 05/22/23 12/01/23 500 mg tablet (Synjardy) carvedilol 6.25 mg tablet 6.25 mg PO BID 08/18/23 12/01/23 ezetimibe 10 mg tablet 10 mg PO DAILY 12/01/23 12/01/23 hydroquinone 4 % topical cream 1 appl topical DAILY 12/01/23 12/01/23 Previous Rx's ?Medication ?Instructions ?Recorded acetaminophen 500 mg tablet 500 mg PO Q6H PRN pain or fever 10/30/20 (Tylenol Extra Strength) #20 tabs blood pressure monitor #1 ea 05/06/21 blood-glucose meter (FreeStyle #1 ea 05/06/21 Lite Meter kit) lancets 28 gauge #100 ea 05/06/21 loratadine 10 mg tablet (Claritin) 10 mg PO DAILY PRN allergy 08/23/21 symptoms 90 days #90 tabs meclizine 25 mg tablet 25 mg PO DAILY PRN dizziness 15 10/21/21 days #15 tabs RIGHT WRIST SPLINT (large) #1 ea 12/06/21 zolpidem 10 mg tablet 10 mg PO BEDTIME PRN insomnia 90 01/21/22 days #90 tabs blood sugar diagnostic (FreeStyle #100 strips 01/24/22 Lite Strips) triamcinolone acetonide 0.1 % 1 appl topical BID #30 grams 07/25/22 topical ointment cholecalciferol (vitamin D3) 50 50 mcg PO DAILY 90 days #90 caps 07/29/22 mcg (2,000 unit) capsule fluticasone propionate 230 2 puff inhalation Q12H 30 days #1 07/29/22 mcg-salmeterol 21 mcg/actuation ea HFA inhaler (Advair HFA) clotrimazole-betamethasone 1 1 appl topical BID itching 7 days 09/10/22 %-0.05 % topical cream #45 grams hydrochlorothiazide 25 mg tablet 25 mg PO DAILY #90 tabs 12/20/22 famotidine 40 mg tablet (Pepcid) 40 mg PO BEDTIME #30 tabs 03/05/23 sennosides 8.6 mg tablet (Senna 17.2 mg (2 x 8.6 mg) PO BEDTIME 03/05/23 Laxative) #60 tabs sucralfate 1 gram tablet (Carafate) 2 g (2 x 1 gram) PO DAILY #60 tabs 05/27/23 esomeprazole magnesium 40 mg 40 mg PO BID #60 caps 11/18/23 capsule,delayed release (Nexium) aspirin 81 mg tablet,delayed 81 mg PO DAILY #90 tabs 12/09/23 release clotrimazole-betamethasone 1 1 appl topical BID itching 7 days 03/10/24 %-0.05 % topical cream #45 grams miconazole nitrate 2 % vaginal 1 appful vaginal BEDTIME 7 days 03/11/24 cream (Monistat 7) #45 grams benzonatate 100 mg capsule 100 mg PO TID PRN cough #20 caps 03/31/24 prednisone 20 mg tablet 40 mg (2 x 20 mg) PO DAILY #10 tabs 03/31/24 Allergies Allergy/AdvReac Type Severity Reaction Status Date / Time acetaminophen [From Vicodin] Allergy Intermediate Palpitations, Verified 03/31/24 15:34 Itch amoxicillin [Prevpac] Allergy Intermediate itchy Verified 03/31/24 15:34 throat hydrocodone [From Vicodin] Allergy Intermediate Palpitations, Verified 03/31/24 15:34 Itch ibuprofen [From Motrin] Allergy Intermediate UPSET Verified 03/31/24 15:34 STOMACH, abdominal pain lansoprazole [Prevpac] Allergy Intermediate itchy Verified 03/31/24 15:34 throat morphine [MORPHINE] Allergy Intermediate PALPATATIONS, Verified 03/31/24 15:34 PANIC ATTACKS, nauseas,panic attack, heart palpitations omeprazole [From PRILOSEC] Allergy Intermediate ITCHY Verified 03/31/24 15:34 THROAT pravastatin [PRAVASTATIN] Allergy Intermediate UNKNOWN Verified 03/31/24 15:34 rosuvastatin [From CRESTOR] Allergy Intermediate UNKNOWN Verified 03/31/24 15:34 terbinafine [TERBINAFINE] Allergy Intermediate UNKNOWN Verified 03/31/24 15:34 atorvastatin [From LIPITOR] Allergy Unknown UNKNOWN Verified 03/31/24 15:34 clarithromycin [From BIAXIN] AdvReac Intermediate ABD PAIN, Verified 03/31/24 15:34 DIARRHEA gabapentin [GABAPENTIN] AdvReac Intermediate UNKNOWN, Verified 03/31/24 15:34 nausea, dizziness levofloxacin [LEVOFLOXACIN] AdvReac Intermediate PALPITATION Verified 03/31/24 15:34 S tylenol with codeine Allergy Unknown fast heart Uncoded 03/10/24 09:56 rate Review of Systems Review of Systems: Yes all other systems are reviewed and are negative [facility] Past Medical History Medical History (Updated 03/31/24 @ 17:21 by ANDREW Lora) Encounter for well woman exam with routine gynecological exam Umbilical hernia Scalp mass Irritable bowel syndrome with diarrhea Allergic rhinitis Lumbar degenerative disc disease Breast pain during Carpal tunnel syndrome Arthritis Morbid obesity with BMI of 40.0-44.9, adult Insomnia Diabetes mellitus Benign essential hypertension Polyarthralgia Fibromyalgia Mixed hyperlipidemia Candidiasis of mouth and esophagus Thoracic spondylosis Surgical History Hx of dilation and curettage History of endometrial ablation Hx of colonoscopy History of esophagogastroduodenoscopy (EGD) History of dermoid cyst excision History of excision of lamina of cervical vertebra for decompression of spinal cord H/O hemorrhoidectomy History of appendectomy Family History Family History Father NIDDY (non-insulin dependent diabetes mellitus in young) Cardiovascular disease Obesity Cancer of unknown origin Colon cancer Mother CAD (coronary artery disease) NIDDY (non-insulin dependent diabetes mellitus in young) Brother Schizophrenia Degenerative disc disease H/O lymph node cancer Sister Breast cancer Colon cancer Paternal Grandmother Ovarian cancer, Onset Age: 45 Daughter Fibromyalgia Hypertension Cancer of unknown origin Ovarian cancer Other Mental health problem Social History Social History Household Members: None Housing: Apartment Alcohol intake: never Patient Tobacco Use Status: Never used Tobacco e-Cigarette/Vaping Use: Never Used Second Hand Smoke Exposure: No Advance Directives: No Advance Directives Information Provided: No Do you have a plan to hurt others: No Plan service: No Current occupational status: disabled 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 Oriented X3. No acute distress. Head: normocephalic, atraumatic. Eyes: Pupils equal, round and reactive to light. ENT: Pharynx normal. No tonsillar swelling or exudate. Neck: Normal inspection. Neck supple. CVS: Normal heart rate and rhythm. Pulses normal. Respiratory: No respiratory distress. Breath sounds normal. dry cough Abdomen: Soft and nontender. +BS x4 Skin: Skin warm and dry. Normal skin color. Normal skin turgor. No rashes. Extremities: No lower extremity edema. No joint swelling. Neuro/psych: Oriented X 3. grossly normal, nonfocal. CN II-XII intact. Normal speech and cognition. Medical Decision Making Medical Decision Making [facility] Narrative: 54 yo female presents to the ER for evaluation of 5 days of cough, headache, sore throat. VSS in triage aside from high blood pressure. No chest pain or visi on changes. CXR clear and viral swab negative repeat BP 164/86 lungs are clear to auscultation. likely viral bronchitis. will treat anti-tussive and short course of prednisone. stable for d/c home Differential Diagnosis Differential Diagnoses: The differential diagnosis associated with the presentation includes asthma exacerbation, COVID, Flu, RSV, PNA, bronchitis Lab Data [facility] Lab Attestation statement: I reviewed the patient's lab results. Labs: Lab Results 03/31/24 Range/Units 15:15 Influenza Type A (PCR) NEGATIVE (Negative) Influenza Type B (PCR) NEGATIVE (Negative) RSV RNA Qual (PCR) NEGATIVE (Negative) SARS-CoV-2 RNA (RT-PCR) NEGATIVE (Negative) S. pyogenes GrpA KRISTEN Negative (Negative) Independent Interpretation I performed an independent interpretation of an: Plain X-Ray Interpretation: no focal infiltrate to suggest PNA Radiology Impression Discussion of test interpretation with radiology: I have reviewed the radiologist's reading. External Record Review External record reviewed: Outpatient record and Prior outpatient labs Prescription Management I considered prescription management with: Pain Medication and Antibiotic Chronic Conditions Patient?s care impacted by: Other (asthma) Critical Care Time Critical Care Time Critical Care Time: No Discharge Plan Discharge Clinical Impression: Bronchitis Patient Disposition: Home, Self-Care Instructions: Acute Bronchitis (ED) Additional Instructions: Your x-ray today was normal. No evidence of pneumonia. You tested negative for COVID, flu, RSV. Take the prescribed prednisone to help with the inflammation in your lungs. Complete the entire course, it is 5 days long. Recommend [id number] Mucinex 1200 mg 2 times a day for 5 days. Take the prescribed cough medication as needed. Rest and stay hydrated. Take [id number] cold and flu medications as needed for your other symptoms. Follow-up with your doctor. If you develop new or worsening symptoms call 911 or come back to the ER for further evaluation. Prescriptions: New prednisone 20 mg tablet 40 mg PO DAILY Qty: 10 0RF benzonatate 100 mg capsule 100 mg PO TID PRN (Reason: cough) Qty: 20 0RF No Action (DME) blood pressure monitor Kit See Rx Instructions .Route Qty: 1 0RF Rx Instructions: As directed (DME) lancets 28 gauge misc See Rx Instructions topical DIRECTED Qty: 100 0RF Rx Instructions: Test once daily (DME) blood-glucose meter [FreeStyle Lite Meter] Kit See Rx Instructions .Route Qty: 1 0RF Rx Instructions: As directed meclizine 25 mg tablet 25 mg PO DAILY PRN (Reason: dizziness) 15 Days Qty: 15 2RF zolpidem 10 mg tablet 10 mg PO BEDTIME PRN (Reason: insomnia) 90 Days Qty: 90 0RF (DME) FreeStyle Lite Strips Strip See Rx Instructions .ROUTE .COMPLEX Qty: 100 0RF Dose Instruction: USE [place]OS [place] Rx Instructions: USE [place] cholecalciferol (vitamin D3) 50 mcg (2,000 unit) capsule 50 mcg PO DAILY 90 Days Qty: 90 3RF hydrochlorothiazide 25 mg tablet 25 mg PO DAILY Qty: 90 0RF sucralfate [Carafate] 1 gram tablet 2 g PO DAILY Qty: 60 3RF aspirin 81 mg tablet,delayed release (DR/EC) 81 mg PO DAILY Qty: 90 1RF miconazole nitrate [Monistat 7] 2 % cream 1 appful vaginal BEDTIME 7 Days Qty: 45 0RF Rx Instructions: Use nightly for 7 nights in a row acetaminophen [Tylenol Extra Strength] 500 mg tablet 500 mg PO Q6H PRN (Reason: pain or fever) Qty: 20 0RF calcipotriene 0.005 % solution topical loratadine [Claritin] 10 mg tablet 10 mg PO DAILY PRN (Reason: allergy symptoms) 90 Days Qty: 90 3RF albuterol sulfate 2.5 mg /3 mL (0.083 %) solution for nebulization 2.5 mg continuous nebulization QID PRN (Reason: shortness of breath or wheezing) (DME) RIGHT WRIST SPLINT (large) large See Rx Instructions .Route .MEDSUPPLY Qty: 1 0RF Rx Instructions: As directed albuterol sulfate 90 mcg/actuation HFA aerosol inhaler 2 puff PO QID PRN Advair HFA 230-21 mcg/actuation HFA aerosol inhaler 2 puff inhalation Q12H 30 Days Qty: 1 6RF clotrimazole-betamethasone 1-0.05 % cream 1 appl topical BID 7 Days Qty: 45 0RF Rx Instructions: apply twice a day clindamycin phosphate 1 % lotion topical DAILY triamcinolone acetonide 0.1 % ointment 1 appl topical BID Qty: 30 1RF Rx Instructions: not for use on the face. sumatriptan succinate 50 mg tablet 50 mg PO Q2-4H PRN (Reason: migraine headache) Rx Instructions: do not exceed 4 doses per 24 hrs sennosides [Senna Laxative] 8.6 mg tablet 17.2 mg PO BEDTIME Qty: 60 6RF famotidine [Pepcid] 40 mg tablet 40 mg PO BEDTIME Qty: 30 6RF Synjardy 12.5-500 mg tablet 1 tab PO BID carvedilol 6.25 mg tablet 6.25 mg PO BID esomeprazole magnesium [Nexium] 40 mg capsule,delayed release(DR/EC) 40 mg PO BID Qty: 60 6RF clotrimazole-betamethasone 1-0.05 % cream 1 appl topical BID 7 Days Qty: 45 0RF Rx Instructions: apply externally a thin coat to the area ezetimibe 10 mg tablet 10 mg PO DAILY hydroquinone 4 % cream 1 appl topical DAILY Discharge Date/Time: 03/31/24 17:29 Print Language: Guinean
[2024-03-31 16:03] LABS: Influenza A PCR NEGATIVE (Negative); Influenza B PCR NEGATIVE (Negative); Resp Syncy Virus RNA Qual PCR NEGATIVE (Negative); SARS COV2 PCR INHOUSE NEGATIVE (Negative)
== END 2024-03-31 17:29 | disposition home or self-care (01) ==
LOC: HO.ED 17:24
PROVIDERS: Physician Assistant; Emergency Provider Internal Medicine; PCP Internal Medicine Geriatric Medicine
DX: J40 Bronchitis, not specified as acute or chronic (principal); R06.02 Shortness of breath; J02.9 Acute pharyngitis, unspecified; I25.10 Atherosclerotic heart disease of native coronary artery without angina pectoris; G43.909 Migraine, unspecified, not intractable, without status migrainosus; M79.10 Myalgia, unspecified site; R05.9 Cough, unspecified; Z03.818 Encounter for observation for suspected exposure to other biological agents ruled out
CPT/HCPCS: 0241U; 71046; 87651; 99281; 99283

== ENCOUNTER 2024-04-07 14:54 | Outpatient (AMB) | payer MEDICAID, SELFPAY ==
--- NOTE | 2024-04-07 15:00 | A.OFFVIS_ITS ---
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 Allergies acetaminophen [From Vicodin] Allergy (Intermediate, Verified 04/07/24 15:03) Palpitations, Itch amoxicillin [Prevpac] Allergy (Intermediate, Verified 04/07/24 15:03) itchy throat hydrocodone [From Vicodin] Allergy (Intermediate, Verified 04/07/24 15:03) Palpitations, Itch ibuprofen [From Motrin] Allergy (Intermediate, Verified 04/07/24 15:03) UPSET STOMACH, abdominal pain lansoprazole [Prevpac] Allergy (Intermediate, Verified 04/07/24 15:03) itchy throat morphine [MORPHINE] Allergy (Intermediate, Verified 04/07/24 15:03) PALPATATIONS, PANIC ATTACKS, nauseas,panic attack, heart palpitations omeprazole [From PRILOSEC] Allergy (Intermediate, Verified 04/07/24 15:03) ITCHY THROAT pravastatin [PRAVASTATIN] Allergy (Intermediate, Verified 04/07/24 15:03) UNKNOWN rosuvastatin [From CRESTOR] Allergy (Intermediate, Verified 04/07/24 15:03) UNKNOWN terbinafine [TERBINAFINE] Allergy (Intermediate, Verified 04/07/24 15:03) UNKNOWN atorvastatin [From LIPITOR] Allergy (Unknown, Verified 04/07/24 15:03) UNKNOWN clarithromycin [From BIAXIN] Adverse Reaction (Intermediate, Verified 04/07/24 15:03) ABD PAIN, DIARRHEA gabapentin [GABAPENTIN] Adverse Reaction (Intermediate, Verified 04/07/24 15:03) UNKNOWN, nausea, dizziness levofloxacin [LEVOFLOXACIN] Adverse Reaction (Intermediate, Verified 04/07/24 15:03) PALPITATIONS tylenol with codeine Allergy (Unknown, Uncoded 04/07/24 15:03) fast heart rate Medication List - Last Reconciled 04/07/24 by Masood Meier MD acetaminophen (Tylenol Extra Strength) 500 mg PO Q6H PRN albuterol sulfate 2.5 mg continuous nebulization QID PRN albuterol sulfate 90 mcg/actuation 2 puffs PO QID PRN aspirin 81 mg PO DAILY benzonatate 100 mg PO TID PRN blood pressure monitor As directed blood sugar diagnostic (FreeStyle Lite Strips) USE [facility] blood-glucose meter (FreeStyle Lite Meter kit) As directed calcipotriene 0.005% topical carvedilol 6.25 mg PO BID cholecalciferol (vitamin D3) 50 mcg PO DAILY 90 days clindamycin phosphate 1% topical DAILY clotrimazole-betamethasone 1-0.05 % 1 appl topical BID 7 days clotrimazole-betamethasone 1-0.05 % 1 appl topical BID 7 days empagliflozin-metformin 12.5-500 mg (Synjardy) 1 tab PO BID esomeprazole magnesium (Nexium) 40 mg PO BID ezetimibe 10 mg PO DAILY famotidine (Pepcid) 40 mg PO BEDTIME fluticasone propion-salmeterol 230-21 mcg/actuation (Advair HFA) 2 puffs inhalation Q12H 30 days hydrochlorothiazide 25 mg PO DAILY hydroquinone 4% 1 appl topical DAILY lancets Test once daily loratadine (Claritin) 10 mg PO DAILY PRN 90 days meclizine 25 mg PO DAILY PRN 15 days miconazole nitrate 2% (Monistat 7) 1 appful vaginal BEDTIME 7 days prednisone 40 mg (2 x 20 mg) PO DAILY [RIGHT WRIST SPLINT (large) As directed] sennosides (Senna Laxative) 17.2 mg (2 x 8.6 mg) PO BEDTIME sucralfate (Carafate) 2 grams (2 x 1 gram) PO DAILY sumatriptan succinate 50 mg PO Q2-4H PRN triamcinolone acetonide 0.1% 1 appl topical BID zolpidem 10 mg PO BEDTIME PRN 90 days HPI Comments Details: 04/07/24--Farrah is here for follow up kidney stones and flank pain. I have discussed renal US results. Renal US--12/24/23--Nonobstructing 4 mm left lower pole renal calculus. Question of mild caliectasis versus small parapelvic cysts. Will continue to monitor kidneys. Review of chart: 12/16/23--Farrah complains of LUTS, 'urine is hot' states she needs to push hard to release, and frequency. Also lower pelvic pain and flank pain. Currently sexually active. Denies any vaginal irritation. [facility], [facility] Medical History (Updated 05/06/24 @ 13:41 by Layo Mcbride MD) Encounter for well woman exam with routine gynecological exam Umbilical hernia Scalp mass Irritable bowel syndrome with diarrhea Allergic rhinitis Lumbar degenerative disc disease Breast pain during Carpal tunnel syndrome Arthritis Morbid obesity with BMI of 40.0-44.9, adult Insomnia Diabetes mellitus Benign essential hypertension Polyarthralgia Fibromyalgia Mixed hyperlipidemia Candidiasis of mouth and esophagus Thoracic spondylosis Surgical History Hx of dilation and curettage History of endometrial ablation Hx of colonoscopy History of esophagogastroduodenoscopy (EGD) History of dermoid cyst excision History of excision of lamina of cervical vertebra for decompression of spinal cord H/O hemorrhoidectomy History of appendectomy Family History Father NIDDY (non-insulin dependent diabetes mellitus in young) Cardiovascular disease Obesity Cancer of unknown origin Colon cancer Mother CAD (coronary artery disease) NIDDY (non-insulin dependent diabetes mellitus in young) Brother Schizophrenia Degenerative disc disease H/O lymph node cancer Sister Breast cancer Colon cancer Paternal Grandmother Ovarian cancer, Onset Age: 45 Daughter Fibromyalgia Hypertension Cancer of unknown origin Ovarian cancer Other Mental health problem Social History Household Members: None Housing: Apartment Alcohol intake: never Patient Tobacco Use Status: Never used Tobacco e-Cigarette/Vaping Use: Never Used Second Hand Smoke Exposure: No service: No Current occupational status: disabled 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 Sexual orientation: Straight/Heterosexual Gender identity: Female Cognitive needs: No Hearing needs: Yes Vision needs: Yes Female Reproductive History Menstrual Age of Menarche: 11 Results AMB Urinalysis, Automated UA Leukoctes 0 Tremaine/uL Last Edit by FARIDA More on 04/07/24 15:14 UA Nitrite Negative Last Edit by FARIDA More on 04/07/24 15:14 UA Urobilinogen 0.2 mg/dL Last Edit by FARIDA More on 04/07/24 15:1 4 UA Protein 0 mg/dL Last Edit by FARIDA More on 04/07/24 15:14 UA pH 5.0 Last Edit by FARIDA More on 04/07/24 15:14 UA Blood 0 Jose Luis/uL Last Edit by FARIDA More on 04/07/24 15:14 UA Specific [place] 1.025 Last Edit by FARIDA More on 04/07/24 15: 14 UA Ketone Negative Last Edit by FARIDA More on 04/07/24 15:14 UA Bilirubin 0 mg/dL Last Edit by FARIDA More on 04/07/24 15:14 UA Glucose 1000 mg/dL Last Edit by FARIDA More on 04/07/24 15:14 Results Reviewed Results Reviewed: Laboratory Last Values Urine pH (Auto) 5.0 04/07/24 15:14 Specific [place] (Auto) 1.025 04/07/24 15:14 Urine Protein (Auto) 0 mg/dL 04/07/24 15:14 Glucose (UA)(Auto) 1000 mg/dL 04/07/24 15:14 Urine Ketones (Auto) Negative 04/07/24 15:14 Urine Blood (Auto) 0 Jose Luis/uL 04/07/24 15:14 Urine Nitrite (Auto) Negative 04/07/24 15:14 Urine Bilirubin (Auto) 0 mg/dL 04/07/24 15:14 Urine Urobilinogen (Auto) 0.2 mg/dL 04/07/24 15:14 Leukocyte Esterase (Auto) 0 Tremaine/uL 04/07/24 15:14 Date of Service: 12/24/23 US RETROPERITONEAL LIMITED (RENAL ONLY) CLINICAL INFORMATION: Unspecified abdominal pain. COMPARISON: CT abdomen and pelvis 05/22/2023. Ultrasound abdomen 10/05/2021 and 07/10/2021. CT abdomen pelvis with contrast 10/05/2021. TECHNIQUE: Real-time imaging of the kidneys. FINDINGS: RIGHT KIDNEY: 11.7 x 5.1 x 5.6 cm (SAG x AP x TRV). The kidney is normal in size, contour, and echogenicity. Renal cortical thickness is normal. No calculi or focal parenchymal lesions. No gross hydronephrosis. There is a question of some mild caliectasis versus small parapelvic cysts. LEFT KIDNEY: 12.3 x 4.7 x 5.3 cm (SAG x AP x TRV). The kidney is normal in size, contour, and echogenicity. Renal cortical thickness is normal. There is a lower pole 4 mm echogenic focus seen consistent with a nonobstructing calculus. No focal parenchymal lesions or gross hydronephrosis. There is a question of some mild caliectasis versus small parapelvic cysts. IMPRESSION: 1. Nonobstructing 4 mm left lower pole renal calculus. 2. Question of mild caliectasis versus small parapelvic cysts. This question could be resolved with a CT urogram if clinically important. Date of Service: 10/29/23 EXAMINATION: US PELVIS CLINICAL INFORMATION: Pelvic and perineal pain. COMPARISON: CT abdomen/pelvis 05/22/2023. TECHNIQUE: Ultrasound of the pelvis is performed using both transabdominal and transvaginal transducers along with Doppler. Transvaginal imaging is performed due to inadequate visualization transabdominally. FINDINGS: Uterus: The uterus is anteverted and measures 8.7 x 4.3 x 4.1 cm. The double wall endometrial thickness is 2 mm. The uterus is smooth in contour and has normal myometrial echogenicity. Previously seen fibroid is not visible on the current study. There are some areas of punctate echogenicity seen in the uterus. Multiple nabothian cysts are present . Adnexa: The right ovary was not visualized. The left ovary measured 2.6 x 1.6 x 1.6 cm for a volume of 3.5 mL. IMPRESSION: No significant abnormality is seen. Punctate areas of echogenicity seen in the uterus could be secondary to adenomyosis as no calcifications were seen on the fairly recent CT scan. These areas could be secondary to endometrial ablation as provided by the patient in her history. If pelvic pain persists, pelvic MRI may be worthwhile for further evaluation. Date of Service: 05/22/23 EXAMINATION: CT ABDOMEN AND PELVIS WITHOUT CONTRAST CLINICAL INFORMATION: Left flank pain COMPARISON: CT abdomen pelvis October 05, 2021 TECHNIQUE: Multidetector volumetric imaging was performed from the superior aspect of the liver through the pubic symphysis. Sagittal and coronal reformatted images were obtained on the technologist's workstation. This CT examination was performed using dose optimization techniques as appropriate, variously including the following: *Automated exposure control *Adjustment of mA and/or kV according to patient size (this includes techniques or standardized protocols for targeted exams where dose is matched to indication/reason for exam; i.e. extremities or head) *Use of iterative reconstruction technique DLP: 786 mGy-cm FINDINGS: LUNG BASES: The visualized lung bases are unremarkable. LIVER, GALLBLADDER, AND BILIARY TREE: The liver is normal in size, shape, and attenuation. No focal hepatic lesion or biliary ductal dilatation is present. The gallbladder is unremarkable with no evidence of radiopaque gallstones, gallbladder wall thickening, or obvious pericholecystic inflammatory changes. PANCREAS: Unremarkable. SPLEEN: Unremarkable. ADRENAL GLANDS: Unremarkable. KIDNEYS AND URETERS: The kidneys are normal in size, shape, and attenuation. No hydronephrosis, hydroureter, or calculi seen. No perinephric stranding. Stable 1 cm cyst midpole right kidney. No follow-up imaging is recommended for simple renal cyst. BLADDER: Unremarkable. GASTROINTESTINAL TRACT: The small and large bowel are unremarkable. The appendix is unremarkable. ABDOMINAL WALL: No significant hernia is appreciated. LYMPH NODES: Normal. VASCULAR: Unremarkable. PELVIC VISCERA: Unremarkable. OSSEOUS STRUCTURES: Unremarkable. IMPRESSION: No significant abnormality. Assessment & Plan Assessment & Plan (1) Right flank pain: Code(s): R10.9 - Unspecified abdominal pain Category: Medical (2) Urinary frequency: Code(s): R35.0 - Frequency of micturition Category: Medical (3) Kidney stone on left side: Code(s): N20.0 - Calculus of kidney Category: Medical Plan Monitor kidney stone Orders: Orders AMB Urinalysis Automated 04/07/24 Z13.9 - Encounter for screening, unspecified CT abdomen pelvis wo IV con 04/07/24 N20.0 - Calculus of kidney Patient Instructions: The patient had an opportunity to ask questions regarding treatment plan. The patient expressed understanding and agreement with the above treatment plan. The patient is aware they should contact our office by phone for worsening of their current condition or the appearance of new symptoms. Compliance is encouraged with any medications and followup testing that is ordered. It is a privilege to be allowed the opportunity to participate in the urologic care of your patient. If you have any questions or concerns regarding treatment for the above conditions please do not hesitate to contact me. The office telephone contact is [phone]. This note is constructed in part using voice recognition software. While every effort has been made to ensure accuracy locomotive mechanic errors may have been included. Yours sincerely, Masood Meier MD Coding Level of Care Code Est Pt Level 3 (17320) Diagnoses Right flank pain R10.9 Urinary frequency R35.0 Kidney stone on left side N20.0
== END 2024-04-07 15:59 | disposition home or self-care (01) ==
PROVIDERS: PCP Internal Medicine Geriatric Medicine; Visit Provider Urology
DX: R10.9 Unspecified abdominal pain (principal); R35.0 Frequency of micturition; N20.0 Calculus of kidney
CPT/HCPCS: 99213

== ENCOUNTER → 2024-04-07 14:54 | Outpatient (BNVA) | payer MEDICAID, SELFPAY | PROVIDERS: PCP Internal Medicine Geriatric Medicine; Visit Provider Urology | DX: N20.0 Calculus of kidney (principal); R35.0 Frequency of micturition | CPT/HCPCS: 81003; 99212 ==

== ENCOUNTER 2024-05-06 12:55 | Outpatient (AMB) | payer MEDICAID, SELFPAY ==
[2024-05-06 13:19] VITALS: BP 144/82; PULSE 63; O2SAT 98; BMI 37.6
--- NOTE | 2024-05-06 13:19 | MHC.OFFVIS ---
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 Medical Name: Cecilia MurrayElinElizabeth Allergies acetaminophen [From Vicodin] Allergy (Intermediate, Verified 04/07/24 15:03) Palpitations, Itch amoxicillin [Prevpac] Allergy (Intermediate, Verified 04/07/24 15:03) itchy throat hydrocodone [From Vicodin] Allergy (Intermediate, Verified 04/07/24 15:03) Palpitations, Itch ibuprofen [From Motrin] Allergy (Intermediate, Verified 04/07/24 15:03) UPSET STOMACH, abdominal pain lansoprazole [Prevpac] Allergy (Intermediate, Verified 04/07/24 15:03) itchy throat morphine [MORPHINE] Allergy (Intermediate, Verified 04/07/24 15:03) PALPATATIONS, PANIC ATTACKS, nauseas,panic attack, heart palpitations omeprazole [From PRILOSEC] Allergy (Intermediate, Verified 04/07/24 15:03) ITCHY THROAT pravastatin [PRAVASTATIN] Allergy (Intermediate, Verified 04/07/24 15:03) UNKNOWN rosuvastatin [From CRESTOR] Allergy (Intermediate, Verified 04/07/24 15:03) UNKNOWN terbinafine [TERBINAFINE] Allergy (Intermediate, Verified 04/07/24 15:03) UNKNOWN atorvastatin [From LIPITOR] Allergy (Unknown, Verified 04/07/24 15:03) UNKNOWN clarithromycin [From BIAXIN] Adverse Reaction (Intermediate, Verified 04/07/24 15:03) ABD PAIN, DIARRHEA gabapentin [GABAPENTIN] Adverse Reaction (Intermediate, Verified 04/07/24 15:03) UNKNOWN, nausea, dizziness levofloxacin [LEVOFLOXACIN] Adverse Reaction (Intermediate, Verified 04/07/24 15:03) PALPITATIONS tylenol with codeine Allergy (Unknown, Uncoded 04/07/24 15:03) fast heart rate HPI HPI Dyspnea: Details: 54-year-old lady, nonsmoker, now followed for moderate persistent asthma and chronic cough.? She was tried on Symbicort and Advair, however she had headache as a side effect on Symbicort and increase blood pressure from Advair. Now she is with suboptimal symptom control. She also is complaining of a recent bronchitic exacerbation partially treated by course of prednisone, however still with significant cough. [facility] Medical History (Updated 05/06/24 @ 13:41 by Layo Mcbride MD) Encounter for well woman exam with routine gynecological exam Umbilical hernia Scalp mass Irritable bowel syndrome with diarrhea Allergic rhinitis Lumbar degenerative disc disease Breast pain during Carpal tunnel syndrome Arthritis Morbid obesity with BMI of 40.0-44.9, adult Insomnia Diabetes mellitus Benign essential hypertension Polyarthralgia Fibromyalgia Mixed hyperlipidemia Candidiasis of mouth and esophagus Thoracic spondylosis Surgical History Hx of dilation and curettage History of endometrial ablation Hx of colonoscopy History of esophagogastroduodenoscopy (EGD) History of dermoid cyst excision History of excision of lamina of cervical vertebra for decompression of spinal cord H/O hemorrhoidectomy History of appendectomy Family History Father NIDDY (non-insulin dependent diabetes mellitus in young) Cardiovascular disease Obesity Cancer of unknown origin Colon cancer Mother CAD (coronary artery disease) NIDDY (non-insulin dependent diabetes mellitus in young) Brother Schizophrenia Degenerative disc disease H/O lymph node cancer Sister Breast cancer Colon cancer Paternal Grandmother Ovarian cancer, Onset Age: 45 Daughter Fibromyalgia Hypertension Cancer of unknown origin Ovarian cancer Other Mental health problem Social History Household Members: None Housing: Apartment Alcohol intake: never Patient Tobacco Use Status: Never used Tobacco e-Cigarette/Vaping Use: Never Used Second Hand Smoke Exposure: No service: No Current occupational status: disabled 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 Sexual orientation: Straight/Heterosexual Gender identity: Female Cognitive needs: No Hearing needs: Yes Vision needs: Yes Female Reproductive History Menstrual Age of Menarche: 11 Review of Systems Const Denies daytime sleepiness, Denies excessive sweating, Denies fatigue, Denies fever(s), Denies lethargy, Denies malaise, Denies night sweats, Denies snoring and Denies weight loss Eyes Denies blurry vision and Denies itchy eyes ENT Denies nasal congestion, Denies post nasal drip, Denies sinus pain, Denies sinus pressure and Denies other ( Thrush) Card Denies chest pain, Denies pedal edema, Denies dyspnea, Denies orthopnea and Denies paroxysmal nocturnal dyspnea Resp Reports cough, Denies hemoptysis, Denies excessive phlegm production, Denies dyspnea, Denies snoring and Denies wheezing GI Denies abdominal pain and Denies heartburn Musc Denies myalgias, Denies arthralgias and Denies joint swelling Skin/Breast Denies rash Neuro Denies memory loss and Denies seizure-like activity Psych Denies abnormal sleep pattern, Denies anxiety and Denies memory loss Endo Denies excessive sweating, Denies fatigue and Denies heat intolerance [place]/Lymph Denies easy bruising Aller/Immun Denies itchy eyes, Denies seasonal rhinorrhea and Denies wheezing Physical Exam Vital Signs: Last Vital Signs Pulse 63 05/06/24 13:19 BP 144/82 H 05/06/24 13:19 Pulse Ox 98 05/06/24 13:19 Oxygen Delivery Method Room Air 05/06/24 13:19 BMI result Body Mass Index 37.6 Const General: no acute distress and alert Nutritional Appearance: obese Orientation/consciousness: Other orientation findings ( oriented) HEENT Head: Yes atraumatic Eyes General: appearance normal, both eyes and all related structures Sclerae: sclerae normal EOM: EOMs intact bilaterally Neck Neck: Yes supple Lymphatic: no lymphadenopathy noted Resp Effort & Inspection: normal respiratory effort and no use of accessory muscles Auscultation: clear to auscultation bilaterally Cardio Rate: regular rate Rhythm: regular rhythm Heart sounds: no gallops, no murmurs and no rubs Skin General skin exam: other ( warm) Extrem General: No clubbing, No cyanosis and No edema Assessment & Plan Assessment & Plan (1) Asthma: Code(s): J45.909 - Unspecified asthma, uncomplicated Category: Medical Qualifiers: Asthma severity: moderate Asthma persistence: persistent Asthma complication type: unspecified Qualified Code(s): J45.40 - Moderate persistent asthma, uncomplicated Plan: Suboptimal control off inhaled corticosteroids. Side effects from Symbicort and Advair. Will try on Breo. Continue albuterol MDI. (2) Cough: Code(s): R05.9 - Cough, unspecified Category: Medical Plan: Does have underlying chronic cough secondary to GERD, now also acute bronchitic component. Will treat with a course of doxycycline. Medications: New doxycycline monohydrate 100 mg PO DAILY 20 caps 0RF fluticasone furoate-vilanterol 200-25 mcg/dose (Breo Ellipta) 1 inh inhalation DAILY 1 ea 6RF Discontinued fluticasone propion-salmeterol 230-21 mcg/actuation (Advair HFA) Discontinued Reason: Doctor's Order 2 puffs inhalation Q12H 30 days 1 ea 2RF Coding Level of Care Code Est Pt Level 4 (70386) Diagnoses Moderate persistent asthma, unspecified whether complicated J45.40 Asthma severity: moderate Asthma persistence: persistent Asthma complication type: unspecified Cough R05.9
== END 2024-05-06 13:37 | disposition home or self-care (01) ==
PROVIDERS: PCP Internal Medicine Geriatric Medicine; Visit Provider Internal Medicine Pulmonary Disease
DX: J45.40 Moderate persistent asthma, uncomplicated (principal); R05.9 Cough, unspecified
CPT/HCPCS: 99214

== ENCOUNTER → 2024-05-06 12:55 | Outpatient (BNVA) | payer MEDICAID, SELFPAY | PROVIDERS: PCP Internal Medicine Geriatric Medicine; Visit Provider Internal Medicine Pulmonary Disease | DX: J45.40 Moderate persistent asthma, uncomplicated (principal); R05.9 Cough, unspecified | CPT/HCPCS: 99212 ==

== ENCOUNTER 2024-05-20 13:41 | Outpatient (AMB) | payer MEDICAID, SELFPAY ==
--- NOTE | 2024-05-20 13:45 | MHC.OFFVIS ---
Intake Visit Reasons: Ultra sound follow up Wildlife Ecology Professor Required: Yes Wildlife Ecology Professor Language: Computer Engineering Technician Name: Naty [id number] Information Interpreted: non-clinical & clinical Integrated Circuits Inspector: Integrated Circuits Inspector Present Accompanied by: Spouse Allergies acetaminophen [From Vicodin] Allergy (Intermediate, Verified 05/20/24 13:47) Palpitations, Itch amoxicillin [Prevpac] Allergy (Intermediate, Verified 05/20/24 13:47) itchy throat hydrocodone [From Vicodin] Allergy (Intermediate, Verified 05/20/24 13:47) Palpitations, Itch ibuprofen [From Motrin] Allergy (Intermediate, Verified 05/20/24 13:47) UPSET STOMACH, abdominal pain lansoprazole [Prevpac] Allergy (Intermediate, Verified 05/20/24 13:47) itchy throat morphine [MORPHINE] Allergy (Intermediate, Verified 05/20/24 13:47) PALPATATIONS, PANIC ATTACKS, nauseas,panic attack, heart palpitations omeprazole [From PRILOSEC] Allergy (Intermediate, Verified 05/20/24 13:47) ITCHY THROAT pravastatin [PRAVASTATIN] Allergy (Intermediate, Verified 05/20/24 13:47) UNKNOWN rosuvastatin [From CRESTOR] Allergy (Intermediate, Verified 05/20/24 13:47) UNKNOWN terbinafine [TERBINAFINE] Allergy (Intermediate, Verified 05/20/24 13:47) UNKNOWN atorvastatin [From LIPITOR] Allergy (Unknown, Verified 05/20/24 13:47) UNKNOWN clarithromycin [From BIAXIN] Adverse Reaction (Intermediate, Verified 05/20/24 13:47) ABD PAIN, DIARRHEA gabapentin [GABAPENTIN] Adverse Reaction (Intermediate, Verified 05/20/24 13:47) UNKNOWN, nausea, dizziness levofloxacin [LEVOFLOXACIN] Adverse Reaction (Intermediate, Verified 05/20/24 13:47) PALPITATIONS tylenol with codeine Allergy (Unknown, Uncoded 04/07/24 15:03) fast heart rate Is last menstrual period known: Yes HPI Comments Details: Patient is here today for a follow up pelvic ultrasound, history of postmenopausal bleeding and pelvic pain. She reports her pelvic pain has reduced and is just occasionally. History of 1 bleeding episode in February, light for 3 days. Endometrial lining is 0.3 cm. Her partner Noah is present for her visit today. [facility] Medical History (Updated 05/06/24 @ 13:41 by Layo Mcbride MD) Encounter for well woman exam with routine gynecological exam Umbilical hernia Scalp mass Irritable bowel syndrome with diarrhea Allergic rhinitis Lumbar degenerative disc disease Breast pain during Carpal tunnel syndrome Arthritis Morbid obesity with BMI of 40.0-44.9, adult Insomnia Diabetes mellitus Benign essential hypertension Polyarthralgia Fibromyalgia Mixed hyperlipidemia Candidiasis of mouth and esophagus Thoracic spondylosis Surgical History Hx of dilation and curettage History of endometrial ablation Hx of colonoscopy History of esophagogastroduodenoscopy (EGD) History of dermoid cyst excision History of excision of lamina of cervical vertebra for decompression of spinal cord H/O hemorrhoidectomy History of appendectomy Family History Father NIDDY (non-insulin dependent diabetes mellitus in young) Cardiovascular disease Obesity Cancer of unknown origin Colon cancer Mother CAD (coronary artery disease) NIDDY (non-insulin dependent diabetes mellitus in young) Brother Schizophrenia Degenerative disc disease H/O lymph node cancer Sister Breast cancer Colon cancer Paternal Grandmother Ovarian cancer, Onset Age: 45 Daughter Fibromyalgia Hypertension Cancer of unknown origin Ovarian cancer Other Mental health problem Social History Household Members: None Housing: Apartment Alcohol intake: never Patient Tobacco Use Status: Never used Tobacco e-Cigarette/Vaping Use: Never Used Second Hand Smoke Exposure: No service: No Current occupational status: disabled 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 Sexual orientation: Straight/Heterosexual Gender identity: Female Cognitive needs: No Hearing needs: Yes Vision needs: Yes Female Reproductive History Menstrual Age of Menarche: 11 Review of Systems Const All systems reviewed & are unremarkable except as noted in HPI and below Endo Reports no additional complaints Physical Exam Const General: cooperative, healthy appearing and no acute distress Psych Appearance: well kempt Attitude: cooperative Thought process: Normal thought process present Results Reviewed Results Reviewed: [address] [address] Ultrasound Report Signed Patient: Farrah Yancey MR#: [id number] : 1970 Acct:[id number] Age/Sex: 53 / F ADM Date: 03/17/24 Loc: HO.US Attending Dr: Gisella Pena CNM Ordering Physician: Gisella Pena CNM Date of Service: 03/17/24 Procedure(s): US pelvic and transvaginal Accession Number(s): [id number] cc: Gisella Pena CNM; Name,Matt APPIAH~ EXAMINATION: US PELVIS CLINICAL INFORMATION: Postmenopausal bleeding. COMPARISON: Pelvic ultrasound 10/29/[address] abdomen and pelvis 05/22/2023. TECHNIQUE: Ultrasound of the pelvis is performed using both transabdominal and transvaginal transducers along with Doppler. Transvaginal imaging is performed due to inadequate visualization transabdominally. FINDINGS: UTERUS: The uterus is anteverted and measures 7.8 x 4.2 x 5.1 cm. The double wall endometrial thickness is 0.3 mm. The uterus is smooth in contour and has normal myometrial echogenicity. Previously seen punctate areas of echogenicity not as apparent on the current study as on the prior. No uterine fibroids are seen. Nabothian cysts are seen in the cervix. ADNEXA: There is no pelvic ascites or fluid collection. Right ovary measures 2.6 x 1.5 x 1.3 cm for a volume of 2.6 mL. Left ovary measures 2.1 x 1.4 x 1.6 cm for a volume of 2.4 mL. US/US pelvic and transvaginal IMPRESSION: Unremarkable pelvic ultrasound. Electronically signed by: Robert Anaya MD 05/18/2024 05:12 PM [facility] Dictated By: Robert Anaya MD Signed By: <Electronically signed by Robert Anaya MD in OV> 05/18/24 1712 DD/ 1353 TD/TT: 03/17/24 1403 Fluoroscope Operator: SS Assessment & Plan Assessment & Plan (1) Encounter to discuss test results: Code(s): Z71.2 - Person consulting for explanation of examination or test findings (2) Postmenopausal bleeding: Code(s): N95.0 - Postmenopausal bleeding Plan Discussed: Ultrasound findings are unremarkable endometrial lining is 0.3 cm. Advised endometrial biopsy to rule out any abnormal cellular changes including uterine cancer. Reviewed procedure technique and pre procedure medications to take food and fluids 1 hour before the test with a dose of either ibuprofen or Tylenol [id number]-rzuawpt recommended unless there is contraindications. She declines a biopsy today she does agree if she bleeds any amount in the future to call the office as soon as possible to have the procedure completed. The patient expressed understanding and agreement with the plan of care. All of her questions and concerns were addressed to the best of my ability. This note is constructed using voice recognition software. While every effort has been made to ensure accuracy, sales development associate errors may have been included. Coding Level of Care Code Est Pt Level 3 (38215) Diagnoses Encounter to discuss test results Z71.2 Postmenopausal bleeding N95.0
--- OUTSIDE RECORDS SUMMARY | 2024-05-25 10:11 | XMS_ITS | Continuity of Care Document ---
Author Organization [facility] Address [address] [place] [address] [address] [place] [address]- Care Team Providers Care Turnstile Attendant Name Role Phone Name Matt APPIAH Primary Care Physician [phone] Encounter [facility] Date(s): 03/29/24 - 04/28/[address] [place], [place] [address] Attending Physician: Izzy Murray Admitting Physician: AdmtrIzzy Referring Physician: Admtr, [id number] Encounter Type: Triage Allergies, Adverse Reactions, Alerts Substance Criticality Severity Reaction Reaction Severity Status ibuprofen rash Active Other Environmental Allergy round patches for ecg- skin red Active morphine red skin/ panic / incresed hr Active terbinafine 1 cellulitis Activ e Vicodin increased hr Active 1hives rash Medications 0.2% nifedipine in 4% lidocaine 0.2% nifedipine in 4% lidocaine, See Instructions, # 30 Gm, Refills 1, Tot. Refills 1, Maintenance,apply a pea size amount 3-4 x's a day, 03/12/21 1:31:00 PM EDT, Supply, 160, cm, 03/12/21 13:19:00 EDT, Height Start Date: 03/12/21 Status: Ordered Quantity: 30.0 Unit: g Repeat number: 2 Ambien 5 mg oral tablet 1 tablet = 5 mg, By Mouth, Daily at bedtime, 0 Refills, Maintenance, 08/24/15 1:47:19 PM EST Start Date: 08/24/15 Status: Ordered Repeat number: 1 aspirin 81 mg oral tablet 1 tablet = 81 mg, By Mouth, Daily, 0 Refills, Maintenance, 08/24/15 1:46:25 PM EST Start Date: 08/24/15 Status: Ordered Repeat number: 1 Calmoseptine 0.44%-20.6% topical ointment See Instructions, Apply to perianal skin, # 1 each, 0 Refills, Maintenance, 10/27/23 4:47:00 PM EDT,[place], [place] - [phone], Partial fill upon patient request if the prescription is for a schedule II opioid drug., Apply to perianal skin, 160, cm, 10/27/23 15:15:00 EDT, Height, 100, kg, 11/15/21 15:03:00 EDT, Dry Weight Start Date: 10/27/23 Status: Ordered Quantity: 1.0 Unit: each Repeat number: 1 carvedilol 3.125 mg oral tablet 3.125 mg, 1, tablet, By Mouth, 2 times a day, Refills 0, Maintenance, 08/24/15 1:46:38 PM EST Start Date: 08/24/15 Status: Ordered Repeat number: 1 Colace sodium 100 mg oral capsule 100 mg, 1, capsule, By Mouth, 2 times a day, PRN, # 60 capsule, Refills 3, Tot. Refills 3, Maintenance, for constipation, 11/13/15 11:52:15 AM EDT, Route to Pharmacy Electronically, [place], [place] - Start Date: 11/13/15 Status: Ordered Quantity: 60.0 Unit: capsule Repeat number: 4 Folic Acid Daily, 0 Refills, Maintenance, 08/24/15 1:47:05 PM EST Start Date: 08/24/15 Status: Ordered Repeat number: 1 hydrochlorothiazide 25 mg oral tablet 25 mg, 1, tablet, By Mouth, Daily, Refills 0, Maintenance, 08/24/15 1:46:57 PM EST Start Date: 08/24/15 Status: Ordered Repeat number: 1 lidocaine 5% topical ointment 1 application, Topically, 3 times a day, # 50 Gm, 2 Refills, Maintenance, 03/23/14 3:43:11 PM EDT, Ointment, [place], [place] -, 1 application Topically 3 times a day Start Date: 03/23/14 Status: Ordered Quantity: 50.0 Unit: g Repeat number: 3 Metamucil 3.4 gm/5.2 gm oral powder for reconstitution See Instructions, ., # 1 bottle, 0 Refills, Soft Stop, 12/21/08 8:45:39 PM EDT Start Date: 12/21/08 Stop Date: 01/20/09 Status: Ordered Quantity: 1.0 Unit: bottle Repeat number: 1 Nexium 20 mg oral enteric coated capsule 1 capsule = 20 mg, By Mouth, Daily, 0 Refills, Maintenance, 08/24/15 1:46:11 PM EST Start Date: 08/24/15 Status: Ordered Repeat number: 1 Otezla = 30 mg, By Mouth, 2 times a day, 0 Refills, Maintenance, 10/16/22 2:19:00 PM EDT, Partial fill upon patient request if the prescription is for a schedule II opioid drug. Start Date: 10/16/22 Status: Ordered Repeat number: 1 sitz bath sitz bath, See Instructions, # 1 each, Refills 0, Tot. Refills 0, Maintenance, Sitz bath for soaking, 10/27/23 4:46:00 PM EDT, Supply, 160, cm, 10/27/23 15:15:00 EDT, Height, 100, kg, 11/15/21 15:03:00 EDT, Dry Weight Start Date: 10/27/23 Status: Ordered Quantity: 1.0 Unit: each Repeat number: 1 Sutab oral tablet See Instructions, follow instructions provided by FRED, # 24 tablet, 0 Refills, Maintenance, 08/21/21 8:47:00 AM EST, [facility]/pharmacy #[id number], Partial fill upon patient request if the prescription is for a schedule II opioid drug., follow instructions provided by FRED 160, cm, 07/23/21 15:04:00 EST, Height Start Date: 08/21/21 Status: Ordered Quantity: 24.0 Unit: tablet Repeat number: 1 Vitamin D3 By Mouth, 0 Refills, Maintenance, 08/24/15 1:47:53 PM EST Start Date: 08/24/15 Status: Ordered Repeat number: 1 Voltaren 1% topical gel = 2 Gm, Topically, 4 times a day, 0 Refills, Maintenance, 10/16/22 2:18:00 PM EDT, Partial fill upon patient request if the prescription is for a schedule II opioid drug. Start Date: 10/16/22 Status: Ordered Repeat number: 1 Zolpidem Daily at bedtime, 0 Refills, Maintenance, 10/16/22 2:18:00 PM EDT, Partial fill upon patient request if the prescription is for a schedule II opioid drug. Start Date: 10/16/22 Status: Ordered Repeat number: 1 Problem List Condition Confirmation Course Effective Dates Status Health St atus Informant Hemorrhoids Confirmed Active Obese class II Confirmed Active Social History Social History Type Response Smoking Status Never smoker entered on: 08/24/15 Sex Sex Representation Female (finding) Patient Care team information Care Team Personnel Name: Name Matt APPIAH Position: [facility] Outreach Member Role: PCP Address: [address] [place] [address] Telecom: Care Team Related Persons Name: JULIANNA SANDERS Name: OMKAR MORALES Insurance Providers Guarantor name: MARVIN HARRINGTON Health Plan Information #: 1 [facility] Member Number: NA Policy Number: NA Group Number: NA
== END 2024-05-20 16:01 | disposition home or self-care (01) ==
PROVIDERS: PCP Internal Medicine Geriatric Medicine; Visit Provider Advanced Practice Midwife
DX: Z71.2 Person consulting for explanation of examination or test findings (principal); N95.0 Postmenopausal bleeding
CPT/HCPCS: 99213

== ENCOUNTER → 2024-05-20 13:41 | Outpatient (BNVA) | payer MEDICAID, SELFPAY | PROVIDERS: PCP Internal Medicine Geriatric Medicine; Visit Provider Advanced Practice Midwife | DX: N95.0 Postmenopausal bleeding (principal); Z71.2 Person consulting for explanation of examination or test findings | CPT/HCPCS: 99212 ==

== ENCOUNTER 2024-05-27 13:39 | Outpatient (REF) | payer MEDICAID, SELFPAY | END 2024-05-27 13:40 | disposition home or self-care (01) | LOC: HO.MAMMO 13:39 | PROVIDERS: PCP Internal Medicine Geriatric Medicine; Visit Provider Internal Medicine Geriatric Medicine | DX: Z12.31 Encounter for screening mammogram for malignant neoplasm of breast (principal) | CPT/HCPCS: 77063; 77067 ==

== ENCOUNTER → 2024-05-27 15:45 | Outpatient (BNV) | payer MEDICAID, SELFPAY | PROVIDERS: PCP Internal Medicine Geriatric Medicine; Visit Provider Internal Medicine | DX: Z12.31 Encounter for screening mammogram for malignant neoplasm of breast (principal) | CPT/HCPCS: 77063; 77067 ==

== ENCOUNTER 2024-05-31 16:21 | Emergency (ER) | payer MEDICAID, SELFPAY ==
--- NOTE | ~2024-05-31 | XR_ITS ---
EXAMINATION: XR CHEST CLINICAL INFORMATION: Chest pain. COMPARISON: Chest radiograph from 03/31/2024. TECHNIQUE: AP portable upright view of the chest was obtained. FINDINGS: The lungs are well expanded. No evidence of focal consolidation, pleural effusion, pulmonary edema, or pneumothorax. The cardiomediastinal silhouette is within normal limits. No acute osseous abnormalities. Instrumented anterior fusion of the lower cervical spine. XR/XR chest 1V IMPRESSION: No radiographically evident acute pulmonary abnormalities. Electronically signed by: Eloy Jeffery DO 05/31/2024 07:39 PM EST
--- NOTE | 2024-05-31 16:22 | ED.GENADULT ---
HPI - General Adult General Chief complaint: Chest Pain Stated complaint: Chest pain Time Seen by Provider: 05/31/24 16:39 Related Data Home Medications ?Medication ?Instructions ?Recorded ?Confirmed albuterol sulfate 90 mcg/actuation 2 puff PO QID PRN 03/21/20 04/07/24 aerosol inhaler calcipotriene 0.005 % scalp topical 02/04/21 04/07/24 solution albuterol sulfate 2.5 mg/3 mL 2.5 mg continuous nebulization QID 12/06/21 04/07/24 (0.083 %) solution for nebulization PRN shortness of breath or wheezing clindamycin phosphate 1 % lotion topical DAILY 07/25/22 04/07/24 sumatriptan succinate 50 mg tablet 50 mg PO Q2-4H PRN migraine 03/05/23 04/07/24 headache empagliflozin 12.5 mg-metformin 1 tab PO BID 05/22/23 04/07/24 500 mg tablet (Synjardy) carvedilol 6.25 mg tablet 6.25 mg PO BID 08/18/23 04/07/24 ezetimibe 10 mg tablet 10 mg PO DAILY 12/01/23 04/07/24 hydroquinone 4 % topical cream 1 appl topical DAILY 12/01/23 04/07/24 Previous Rx's ?Medication ?Instructions ?Recorded acetaminophen 500 mg tablet 500 mg PO Q6H PRN pain or fever 10/30/20 (Tylenol Extra Strength) #20 tabs blood pressure monitor #1 ea 05/06/21 blood-glucose meter (FreeStyle #1 ea 05/06/21 Lite Meter kit) lancets 28 gauge #100 ea 05/06/21 loratadine 10 mg tablet (Claritin) 10 mg PO DAILY PRN allergy 08/23/21 symptoms 90 days #90 tabs meclizine 25 mg tablet 25 mg PO DAILY PRN dizziness 15 10/21/21 days #15 tabs RIGHT WRIST SPLINT (large) #1 ea 12/06/21 zolpidem 10 mg tablet 10 mg PO BEDTIME PRN insomnia 90 01/21/22 days #90 tabs blood sugar diagnostic (FreeStyle #100 strips 01/24/22 Lite Strips) triamcinolone acetonide 0.1 % 1 appl topical BID #30 grams 07/25/22 topical ointment cholecalciferol (vitamin D3) 50 50 mcg PO DAILY 90 days #90 caps 07/29/22 mcg (2,000 unit) capsule clotrimazole-betamethasone 1 1 appl topical BID itching 7 days 09/10/22 %-0.05 % topical cream #45 grams hydrochlorothiazide 25 mg tablet 25 mg PO DAILY #90 tabs 12/20/22 famotidine 40 mg tablet (Pepcid) 40 mg PO BEDTIME #30 tabs 03/05/23 sennosides 8.6 mg tablet (Senna 17.2 mg (2 x 8.6 mg) PO BEDTIME 03/05/23 Laxative) #60 tabs sucralfate 1 gram tablet (Carafate) 2 g (2 x 1 gram) PO DAILY #60 tabs 05/27/23 aspirin 81 mg tablet,delayed 81 mg PO DAILY #90 tabs 12/09/23 release clotrimazole-betamethasone 1 1 appl topical BID itching 7 days 03/10/24 %-0.05 % topical cream #45 grams miconazole nitrate 2 % vaginal 1 appful vaginal BEDTIME 7 days 03/11/24 cream (Monistat 7) #45 grams benzonatate 100 mg capsule 100 mg PO TID PRN cough #20 caps 03/31/24 prednisone 20 mg tablet 40 mg (2 x 20 mg) PO DAILY #10 tabs 03/31/24 doxycycline monohydrate 100 mg 100 mg PO DAILY #20 caps 05/06/24 capsule fluticasone furoate 200 1 inh inhalation DAILY #1 ea 05/06/24 mcg-vilanterol 25 mcg/dose inhalation powder (Breo Ellipta) esomeprazole magnesium 40 mg 40 mg PO BID #60 caps 05/24/24 capsule,delayed release Allergies Allergy/AdvReac Type Severity Reaction Status Date / Time acetaminophen [From Vicodin] Allergy Intermediate Palpitations, Verified 05/31/24 16:34 Itch amoxicillin [Prevpac] Allergy Intermediate itchy Verified 05/31/24 16:34 throat hydrocodone [From Vicodin] Allergy Intermediate Palpitations, Verified 05/31/24 16:34 Itch ibuprofen [From Motrin] Allergy Intermediate UPSET Verified 05/31/24 16:34 STOMACH, abdominal pain lansoprazole [Prevpac] Allergy Intermediate itchy Verified 05/31/24 16:34 throat morphine [MORPHINE] Allergy Intermediate PALPATATIONS, Verified 05/31/24 16:34 PANIC ATTACKS, nauseas,panic attack, heart palpitations omeprazole [From PRILOSEC] Allergy Intermediate ITCHY Verified 05/31/24 16:34 THROAT pravastatin [PRAVASTATIN] Allergy Intermediate UNKNOWN Verified 05/31/24 16:34 rosuvastatin [From CRESTOR] Allergy Intermediate UNKNOWN Verified 05/31/24 16:34 terbinafine [TERBINAFINE] Allergy Intermediate UNKNOWN Verified 05/31/24 16:34 atorvastatin [From LIPITOR] Allergy Unknown UNKNOWN Verified 05/31/24 16:34 clarithromycin [From BIAXIN] AdvReac Intermediate ABD PAIN, Verified 05/31/24 16:34 DIARRHEA gabapentin [GABAPENTIN] AdvReac Intermediate UNKNOWN, Verified 05/31/24 16:34 nausea, dizziness levofloxacin [LEVOFLOXACIN] AdvReac Intermediate PALPITATION Verified 05/31/24 16:34 S tylenol with codeine Allergy Unknown fast heart Uncoded 05/31/24 16:34 rate PMFSH Past Medical History Medical History Encounter for well woman exam with routine gynecological exam Umbilical hernia Scalp mass Irritable bowel syndrome with diarrhea Allergic rhinitis Lumbar degenerative disc disease Breast pain during Carpal tunnel syndrome Arthritis Morbid obesity with BMI of 40.0-44.9, adult Insomnia Diabetes mellitus Benign essential hypertension Polyarthralgia Fibromyalgia Mixed hyperlipidemia Candidiasis of mouth and esophagus Thoracic spondylosis Surgical History Hx of dilation and curettage History of endometrial ablation Hx of colonoscopy History of esophagogastroduodenoscopy (EGD) History of dermoid cyst excision History of excision of lamina of cervical vertebra for decompression of spinal cord H/O hemorrhoidectomy History of appendectomy Family History Family History Father NIDDY (non-insulin dependent diabetes mellitus in young) Cardiovascular disease Obesity Cancer of unknown origin Colon cancer Mother CAD (coronary artery disease) NIDDY (non-insulin dependent diabetes mellitus in young) Brother Schizophrenia Degenerative disc disease H/O lymph node cancer Sister Breast cancer Colon cancer Paternal Grandmother Ovarian cancer, Onset Age: 45 Daughter Fibromyalgia Hypertension Cancer of unknown origin Ovarian cancer Other Mental health problem Social History Social History Household Members: None Housing: Apartment Alcohol intake: never Patient Tobacco Use Status: Never used Tobacco Smoked in Last 30 Days: No e-Cigarette/Vaping Use: Never Used Second Hand Smoke Exposure: No Use of substances other than those prescribed or required for medical reasons: No Advance Directives: No Advance Directives Information Provided: Yes Do you have a plan to hurt others: No Plan service: No Current occupational status: disabled 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 Sexual orientation: Straight/Heterosexual Gender identity: Female Cognitive needs: No Hearing needs: Yes Vision needs: Yes Physical Exam ED Vital Signs: Vital Signs - 24 hr 05/31/24 16:31 05/31/24 16:48 05/31/24 18:25 Temperature 98 F 98.3 F Pulse Rate 77 67 73 Respiratory Rate 19 16 16 Blood Pressure 239/121 H 179/70 H 143/71 H Pulse Oximetry 98 99 97 Oxygen Delivery Method Room Air Room Air Room Air BMI result Body Mass Index 37.6 Course Course Course Narrative: RME, this is a rapid medical exam performed by Kennedy Hernandez please refer to primary provider for complete H&P- 54-year-old primarily Croatian-speaking female presents for evaluation of chest pain. She also complains of palpitations and dizziness since yesterday. Her blood pressure is 200/97 an urgent care and therefore she was referred to the ER for further evaluation and management. Plan for EKG, labs Medical Decision Making Lab Data 05/31/24 16:47 05/31/24 16:46 Labs: Lab Results 05/31/24 05/31/24 05/31/24 Range/Units 16:46 16:47 19:15 WBC 11.9 H (4.8-10.8) X10*3/uL RBC 5.40 (4.20-5.50) X10*6/uL Hgb 14.3 (12.0-16.0) g/dl Hct 44.9 (37.0-47.0) % MCV 83.1 (80.0-98.0) fL MCH 26.5 L (27.0-33.0) pg MCHC 31.8 (31.0-35.0) g/dl RDW 14.2 (11.0-16.0) % Plt Count 319 (160-400) X10*3/uL MPV 9.8 (9.4-12.3) fL Immature Gran % (Auto) 0.3 (0.0-0.4) % Neut % (Auto) 63.2 (45-73) % Lymph % (Auto) 26.1 (20-40) % [place] % (Auto) 8.2 (2-11) % Eos % (Auto) 1.6 (0-4) % Baso % (Auto) 0.6 (0-2) % Lymph # (Auto) 3.1 (1.2-4.9) X10*3/uL [place] # (Auto) 1.0 (0.1-1.2) X10*3/uL Eos # (Auto) 0.2 (0.0-0.4) X10*3/uL Baso # (Auto) 0.1 (0.0-0.2) X10*3/uL Abs Immat Gran (auto) 0.04 H (0.00-0.03) X10*3/uL Absolute Neuts (auto) 7.5 (2.0-8.3) x10*3/uL Absolute Nucleated RBC 0.000 (0.0-0.012) X10*3/uL Nucleated RBC % (auto) 0.0 (0.0-0.2) /100WBC PT 12.0 (10.9-12.4) SEC INR 1.0 (0.9-1.1) D-Dimer High Sensitivty < 150 NG/ML Sodium 142 (135-145) mmol/L Potassium 3.8 (3.3-5.1) mmol/L Chloride 106 (96-108) mmol/L Carbon Dioxide 28 (22-29) mmol/L Anion Gap 12 (12-20) BUN 15 (9-16) mg/dL Creatinine 0.82 (0.5-1.4) mg/dL Estim Creat Clear Calc 86.5 Estimated GFR > 60 Random Glucose 116 H (60-115) mg/dL Calcium 9.4 (8.4-10.2) mg/dL Magnesium 2.0 (1.6-2.6) mg/dL Total Bilirubin 0.9 (0.0-1.0) mg/dL AST 38 H (5-31) U/L ALT 38 H (0-31) U/L Alkaline Phosphatase 130 H (39-117) U/L Troponin I High Sens < 2.7 < 2.7 (<3.5-17.0) ng/L Total Protein 7.9 (6.5-8.0) g/dL Albumin 4.3 (3.5-5.0) g/dL Lipase 31 (8-78) U/L Discharge Plan Discharge Clinical Impression: Diabetes mellitus, Chest pain Patient Disposition: Home, Self-Care Instructions: Chest Pain (ED), Diabetes and Nutrition (ED) Additional Instructions: Please follow-up closely with cardiology. Prescriptions: No Action (DME) blood pressure monitor Kit See Rx Instructions .Route Qty: 1 0RF Rx Instructions: As directed (DME) lancets 28 gauge misc See Rx Instructions topical DIRECTED Qty: 100 0RF Rx Instructions: Test once daily (DME) blood-glucose meter [FreeStyle Lite Meter] Kit See Rx Instructions .Route Qty: 1 0RF Rx Instructions: As directed meclizine 25 mg tablet 25 mg PO DAILY PRN (Reason: dizziness) 15 Days Qty: 15 2RF zolpidem 10 mg tablet 10 mg PO BEDTIME PRN (Reason: insomnia) 90 Days Qty: 90 0RF (DME) FreeStyle Lite Strips Strip See Rx Instructions .ROUTE .COMPLEX Qty: 100 0RF Dose Instruction: USE TODOS [place] Rx Instructions: USE TODOS [place] cholecalciferol (vitamin D3) 50 mcg (2,000 unit) capsule 50 mcg PO DAILY 90 Days Qty: 90 3RF hydrochlorothiazide 25 mg tablet 25 mg PO DAILY Qty: 90 0RF sucralfate [Carafate] 1 gram tablet 2 g PO DAILY Qty: 60 3RF aspirin 81 mg tablet,delayed release (DR/EC) 81 mg PO DAILY Qty: 90 1RF miconazole nitrate [Monistat 7] 2 % cream 1 appful vaginal BEDTIME 7 Days Qty: 45 0RF Rx Instructions: Use nightly for 7 nights in a row esomeprazole magnesium 40 mg capsule,delayed release(DR/EC) 40 mg PO BID Qty: 60 6RF acetaminophen [Tylenol Extra Strength] 500 mg tablet 500 mg PO Q6H PRN (Reason: pain or fever) Qty: 20 0RF prednisone 20 mg tablet 40 mg PO DAILY Qty: 10 0RF benzonatate 100 mg capsule 100 mg PO TID PRN (Reason: cough) Qty: 20 0RF calcipotriene 0.005 % solution topical loratadine [Claritin] 10 mg tablet 10 mg PO DAILY PRN (Reason: allergy symptoms) 90 Days Qty: 90 3RF albuterol sulfate 2.5 mg /3 mL (0.083 %) solution for nebulization 2.5 mg continuous nebulization QID PRN (Reason: shortness of breath or wheezing) (DME) RIGHT WRIST SPLINT (large) large See Rx Instructions .Route .MEDSUPPLY Qty: 1 0RF Rx Instructions: As directed albuterol sulfate 90 mcg/actuation HFA aerosol inhaler 2 puff PO QID PRN clotrimazole-betamethasone 1-0.05 % cream 1 appl topical BID 7 Days Qty: 45 0RF Rx Instructions: apply twice a day clindamycin phosphate 1 % lotion topical DAILY triamcinolone acetonide 0.1 % ointment 1 appl topical BID Qty: 30 1RF Rx Instructions: not for use on the face. sumatriptan succinate 50 mg tablet 50 mg PO Q2-4H PRN (Reason: migraine headache) Rx Instructions: do not exceed 4 doses per 24 hrs sennosides [Senna Laxative] 8.6 mg tablet 17.2 mg PO BEDTIME Qty: 60 6RF famotidine [Pepcid] 40 mg tablet 40 mg PO BEDTIME Qty: 30 6RF Synjardy 12.5-500 mg tablet 1 tab PO BID carvedilol 6.25 mg tablet 6.25 mg PO BID clotrimazole-betamethasone 1-0.05 % cream 1 appl topical BID 7 Days Qty: 45 0RF Rx Instructions: apply externally a thin coat to the area ezetimibe 10 mg tablet 10 mg PO DAILY hydroquinone 4 % cream 1 appl topical DAILY doxycycline monohydrate 100 mg capsule 100 mg PO DAILY Qty: 20 0RF fluticasone furoate-vilanterol [Breo Ellipta] 200-25 mcg/dose blister with device 1 inh inhalation DAILY Qty: 1 6RF Referrals: Wero Perez MD [Physician] - 06/02/24 Print Language: Croatian
--- NOTE | 2024-05-31 16:23 | ECG_ITS ---
Test Reason : PALPATATION/CHEST PAIN Blood Pressure : / mmHG Vent. Rate : 073 BPM Atrial Rate : 073 BPM P-R Int : 174 ms QRS Dur : 092 ms QT Int : 424 ms P-R-T Axes : 024 -17 003 degrees QTc Int : 467 ms Normal sinus rhythm Moderate voltage criteria for LVH, may be normal variant ( R in aVL , [place] product ) Nonspecific T wave abnormality Abnormal ECG When compared with ECG of 04-NOV-2023 15:13, No significant change was found Referred By: Danilo Hernandez Electronically Signed By:UMM RODRIGUEZ
[2024-05-31 16:31] VITALS: BP 239/121; PULSE 77; RESP 19; TEMP 36.6; O2SAT 98; BMI 37.6
[2024-05-31 16:48] VITALS: BP 179/70; PULSE 67; RESP 16; TEMP 36.8; O2SAT 99
[2024-05-31 16:52] LABS: MANUAL DIFF FLAG NO
[2024-05-31 16:56] LABS: Basophils Absolute Auto 0.1 X10*3/uL (0.0-0.2); Basophils Percent Auto 0.6 % (0-2); Eosinophils Absolute Auto 0.2 X10*3/uL (0.0-0.4); Eosinophils Percent Auto 1.6 % (0-4); Hematocrit 44.9 % (37.0-47.0); Hemoglobin 14.3 g/dl (12.0-16.0); Imm Gran Abs Auto 0.04 X10*3/uL (0.00-0.03); Imm Gran Pct Auto 0.3 % (0.0-0.4); Lymphocytes Absolute Auto 3.1 X10*3/uL (1.2-4.9); Lymphocytes Percent Auto 26.1 % (20-40); Mean Corpuscular HGB Conc 31.8 g/dl (31.0-35.0); Mean Corpuscular Hemoglobin 26.5 pg (27.0-33.0); Mean Corpuscular Volume 83.1 fL (80.0-98.0); Mean Platelet Volume 9.8 fL (9.4-12.3); Monocytes Percent Auto 8.2 % (2-11); Neutrophils Absolute Auto 7.5 x10*3/uL (2.0-8.3); Neutrophils Percent Auto 63.2 % (45-73); Platelet Count 319 X10*3/uL (160-400); Red Cell Distribution Width 14.2 % (11.0-16.0); White Blood Count 11.9 X10*3/uL (4.8-10.8)
[2024-05-31 17:15] LABS: Alanine Aminotransferase 38 U/L (0-31); Albumin Level 4.3 g/dL (3.5-5.0); Alkaline Phosphatase 130 U/L (39-117); Anion Gap 12 (12-20); Aspartate Amino Transferase 38 U/L (5-31); Bilirubin Total 0.9 mg/dL (0.0-1.0); Blood Urea Nitrogen 15 mg/dL (9-16); Calcium 9.4 mg/dL (8.4-10.2); Carbon Dioxide 28 mmol/L (22-29); Chloride 106 mmol/L (96-108); Creatinine Clr Calc Pharmacy 86.5; Estimated Glomerular Filt Rate > 60; Glucose Random 116 mg/dL (60-115); Lipase 31 U/L (8-78); Potassium 3.8 mmol/L (3.3-5.1); Sodium 142 mmol/L (135-145); Total Protein 7.9 g/dL (6.5-8.0)
--- NOTE | 2024-05-31 17:16 | ED_ITS ---
HPI - Chest Pain General Chief Complaint: Chest Pain Stated Complaint: Chest pain Time Seen by Provider: 05/31/24 16:39 History of Present Illness HPI narrative: patient is a 54-year-old female with a history of hypertension. History of nonobstructive coronary disease. History cholesterol anemia baseline on blood pressure medication history of neck surgery in the past. Presents today with having chest pain that is been ongoing for the last 6 months. Patient claims it has been fairly constant it goes from the right chest to the left neck. This is the same as prior. Denies any diaphoresis. Positive history of diabetes, hypertension, high cholesterol. No history of smoking. Never had a heart attack. Never had a stroke. Had a stress test done at [facility] a few years ago. There has been no new medication. Patient has been followed in the Cardiology office in the past. There is no diaphoresis associated with these symptoms. Symptoms not made worse with deep breath. Patient from home. Related Data Home Medications ?Medication ?Instructions ?Recorded ?Confirmed albuterol sulfate 90 mcg/actuation 2 puff PO QID PRN 03/21/20 04/07/24 aerosol inhaler calcipotriene 0.005 % scalp topical 02/04/21 04/07/24 solution albuterol sulfate 2.5 mg/3 mL 2.5 mg continuous nebulization QID 12/06/21 04/07/24 (0.083 %) solution for nebulization PRN shortness of breath or wheezing clindamycin phosphate 1 % lotion topical DAILY 07/25/22 04/07/24 sumatriptan succinate 50 mg tablet 50 mg PO Q2-4H PRN migraine 03/05/23 04/07/24 headache empagliflozin 12.5 mg-metformin 1 tab PO BID 05/22/23 04/07/24 500 mg tablet (Synjardy) carvedilol 6.25 mg tablet 6.25 mg PO BID 08/18/23 04/07/24 ezetimibe 10 mg tablet 10 mg PO DAILY 12/01/23 04/07/24 hydroquinone 4 % topical cream 1 appl topical DAILY 12/01/23 04/07/24 Previous Rx's ?Medication ?Instructions ?Recorded acetaminophen 500 mg tablet 500 mg PO Q6H PRN pain or fever 10/30/20 (Tylenol Extra Strength) #20 tabs blood pressure monitor #1 ea 05/06/21 blood-glucose meter (FreeStyle #1 ea 05/06/21 Lite Meter kit) lancets 28 gauge #100 ea 05/06/21 loratadine 10 mg tablet (Claritin) 10 mg PO DAILY PRN allergy 08/23/21 symptoms 90 days #90 tabs meclizine 25 mg tablet 25 mg PO DAILY PRN dizziness 15 10/21/21 days #15 tabs RIGHT WRIST SPLINT (large) #1 ea 12/06/21 zolpidem 10 mg tablet 10 mg PO BEDTIME PRN insomnia 90 01/21/22 days #90 tabs blood sugar diagnostic (FreeStyle #100 strips 01/24/22 Lite Strips) triamcinolone acetonide 0.1 % 1 appl topical BID #30 grams 07/25/22 topical ointment cholecalciferol (vitamin D3) 50 50 mcg PO DAILY 90 days #90 caps 07/29/22 mcg (2,000 unit) capsule clotrimazole-betamethasone 1 1 appl topical BID itching 7 days 09/10/22 %-0.05 % topical cream #45 grams hydrochlorothiazide 25 mg tablet 25 mg PO DAILY #90 tabs 12/20/22 famotidine 40 mg tablet (Pepcid) 40 mg PO BEDTIME #30 tabs 03/05/23 sennosides 8.6 mg tablet (Senna 17.2 mg (2 x 8.6 mg) PO BEDTIME 03/05/23 Laxative) #60 tabs sucralfate 1 gram tablet (Carafate) 2 g (2 x 1 gram) PO DAILY #60 tabs 05/27/23 aspirin 81 mg tablet,delayed 81 mg PO DAILY #90 tabs 12/09/23 release clotrimazole-betamethasone 1 1 appl topical BID itching 7 days 03/10/24 %-0.05 % topical cream #45 grams miconazole nitrate 2 % vaginal 1 appful vaginal BEDTIME 7 days 03/11/24 cream (Monistat 7) #45 grams benzonatate 100 mg capsule 100 mg PO TID PRN cough #20 caps 03/31/24 prednisone 20 mg tablet 40 mg (2 x 20 mg) PO DAILY #10 tabs 03/31/24 doxycycline monohydrate 100 mg 100 mg PO DAILY #20 caps 05/06/24 capsule fluticasone furoate 200 1 inh inhalation DAILY #1 ea 05/06/24 mcg-vilanterol 25 mcg/dose inhalation powder (Breo Ellipta) esomeprazole magnesium 40 mg 40 mg PO BID #60 caps 05/24/24 capsule,delayed release Allergies Allergy/AdvReac Type Severity Reaction Status Date / Time acetaminophen [From Vicodin] Allergy Intermediate Palpitations, Verified 05/31/24 16:34 Itch amoxicillin [Prevpac] Allergy Intermediate itchy Verified 05/31/24 16:34 throat hydrocodone [From Vicodin] Allergy Intermediate Palpitations, Verified 05/31/24 16:34 Itch ibuprofen [From Motrin] Allergy Intermediate UPSET Verified 05/31/24 16:34 STOMACH, abdominal pain lansoprazole [Prevpac] Allergy Intermediate itchy Verified 05/31/24 16:34 throat morphine [MORPHINE] Allergy Intermediate PALPATATIONS, Verified 05/31/24 16:34 PANIC ATTACKS, nauseas,panic attack, heart palpitations omeprazole [From PRILOSEC] Allergy Intermediate ITCHY Verified 05/31/24 16:34 THROAT pravastatin [PRAVASTATIN] Allergy Intermediate UNKNOWN Verified 05/31/24 16:34 rosuvastatin [From CRESTOR] Allergy Intermediate UNKNOWN Verified 05/31/24 16:34 terbinafine [TERBINAFINE] Allergy Intermediate UNKNOWN Verified 05/31/24 16:34 atorvastatin [From LIPITOR] Allergy Unknown UNKNOWN Verified 05/31/24 16:34 clarithromycin [From BIAXIN] AdvReac Intermediate ABD PAIN, Verified 05/31/24 16:34 DIARRHEA gabapentin [GABAPENTIN] AdvReac Intermediate UNKNOWN, Verified 05/31/24 16:34 nausea, dizziness levofloxacin [LEVOFLOXACIN] AdvReac Intermediate PALPITATION Verified 05/31/24 16:34 S tylenol with codeine Allergy Unknown fast heart Uncoded 05/31/24 16:34 rate Review of Systems 2 Review of Systems: Positive chest pain no shortness breath no diaphoresis no focal weakness. Pain is sharp. Yes all other systems are reviewed and are negative PMFSH Past Medical History Attestation statement: The following information was validated with the patient. Medical History Encounter for well woman exam with routine gynecological exam Umbilical hernia Scalp mass Irritable bowel syndrome with diarrhea Allergic rhinitis Lumbar degenerative disc disease Breast pain during Carpal tunnel syndrome Arthritis Morbid obesity with BMI of 40.0-44.9, adult Insomnia Diabetes mellitus Benign essential hypertension Polyarthralgia Fibromyalgia Mixed hyperlipidemia Candidiasis of mouth and esophagus Thoracic spondylosis Surgical History Hx of dilation and curettage History of endometrial ablation Hx of colonoscopy History of esophagogastroduodenoscopy (EGD) History of dermoid cyst excision History of excision of lamina of cervical vertebra for decompression of spinal cord H/O hemorrhoidectomy History of appendectomy Family History Family History Father NIDDY (non-insulin dependent diabetes mellitus in young) Cardiovascular disease Obesity Cancer of unknown origin Colon cancer Mother CAD (coronary artery disease) NIDDY (non-insulin dependent diabetes mellitus in young) Brother Schizophrenia Degenerative disc disease H/O lymph node cancer Sister Breast cancer Colon cancer Paternal Grandmother Ovarian cancer, Onset Age: 45 Daughter Fibromyalgia Hypertension Cancer of unknown origin Ovarian cancer Other Mental health problem Social History Social History Household Members: None Housing: Apartment Alcohol intake: never Patient Tobacco Use Status: Never used Tobacco Smoked in Last 30 Days: No e-Cigarette/Vaping Use: Never Used Second Hand Smoke Exposure: No Use of substances other than those prescribed or required for medical reasons: No Advance Directives: No Advance Directives Information Provided: Yes Do you have a plan to hurt others: No Plan service: No Current occupational status: disabled 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 Oriented X3. No acute distress. Eyes: Pupils equal, round and reactive to light. ENT: Pharynx normal. Neck: Normal inspection. Neck supple. No lymph nodes noted. No crepitus CVS: Normal heart rate and rhythm. Pulses normal. Normal S1 and S2 Respiratory: No respiratory distress. Breath sounds normal. No Wheezing. No rales Abdomen: Soft and nontender. No rigidity. No distention. good BS x4 Skin: Skin warm and dry. Normal skin color. Normal skin turgor. Extremities: No lower extremity edema. Neurovascular intact to all extremities. No Lacerations. No Rash Neuro: Oriented X 3. No motor deficit. No sensory deficit. Moving all extermities. No slurred speech Medical Decision Making Medical Decision Making [facility] Narrative: Well-appearing no acute distress. Chest pain is sharp. Goes from the left side to the right side. Very similar to previous bouts. Atypical for ACS. However patient has multitude of risk factor including diabetes, hypertension, high cholesterol. will get labs. 2 sets of heart enzymes are negative. Patient does have multitude of cardiac risk. Including hypercholesterolemia, hypertension, question coronary artery disease, larger in size with a BMI between 40 and 45. diabetes. EKG is not changed. patient's chest pain is atypical for ACS. Explained to patient the need for close follow-up as she is 54 years old with significant cardiac risk. Patient states understanding. Heart score is a 3. Patient will require close follow-up which she is aware. Joint decision was made with her to discharge her home. My interpretation of patient's EKG showed a sinus rhythm heart rate is 70 VT QRS QTC normal there is diffuse T-wave flattening noted. My interpretation of patient's chest x-ray showed no evidence of pneumonia no evidence for pneumothorax. Differential Diagnosis Differential Diagnoses: The differential diagnosis associated with the presentation includes ACS, pneumonia, pneumothorax Admission/Observation Consideration of admission/observation: Escalation of care including admission/observation considered Lab Data [facility] Lab Attestation statement: I reviewed the patient's lab results. 05/31/24 16:47 05/31/24 16:46 Labs: Lab Results 05/31/24 05/31/24 05/31/24 Range/Units 16:46 16:47 19:15 WBC 11.9 H (4.8-10.8) X10*3/uL RBC 5.40 (4.20-5.50) X10*6/uL Hgb 14.3 (12.0-16.0) g/dl Hct 44.9 (37.0-47.0) % MCV 83.1 (80.0-98.0) fL MCH 26.5 L (27.0-33.0) pg MCHC 31.8 (31.0-35.0) g/dl RDW 14.2 (11.0-16.0) % Plt Count 319 (160-400) X10*3/uL MPV 9.8 (9.4-12.3) fL Immature Gran % (Auto) 0.3 (0.0-0.4) % Neut % (Auto) 63.2 (45-73) % Lymph % (Auto) 26.1 (20-40) % Guthrie % (Auto) 8.2 (2-11) % Eos % (Auto) 1.6 (0-4) % Baso % (Auto) 0.6 (0-2) % Lymph # (Auto) 3.1 (1.2-4.9) X10*3/uL Guthrie # (Auto) 1.0 (0.1-1.2) X10*3/uL Eos # (Auto) 0.2 (0.0-0.4) X10*3/uL Baso # (Auto) 0.1 (0.0-0.2) X10*3/uL Abs Immat Gran (auto) 0.04 H (0.00-0.03) X10*3/uL Absolute Neuts (auto) 7.5 (2.0-8.3) x10*3/uL Absolute Nucleated RBC 0.000 (0.0-0.012) X10*3/uL Nucleated RBC % (auto) 0.0 (0.0-0.2) /100WBC PT 12.0 (10.9-12.4) SEC INR 1.0 (0.9-1.1) D-Dimer High Sensitivty < 150 NG/ML Sodium 142 (135-145) mmol/L Potassium 3.8 (3.3-5.1) mmol/L Chloride 106 (96-108) mmol/L Carbon Dioxide 28 (22-29) mmol/L Anion Gap 12 (12-20) BUN 15 (9-16) mg/dL Creatinine 0.82 (0.5-1.4) mg/dL Estim Creat Clear Calc 86.5 Estimated GFR > 60 Random Glucose 116 H (60-115) mg/dL Calcium 9.4 (8.4-10.2) mg/dL Magnesium 2.0 (1.6-2.6) mg/dL Total Bilirubin 0.9 (0.0-1.0) mg/dL AST 38 H (5-31) U/L ALT 38 H (0-31) U/L Alkaline Phosphatase 130 H (39-117) U/L Troponin I High Sens < 2.7 < 2.7 (<3.5-17.0) ng/L Total Protein 7.9 (6.5-8.0) g/dL Albumin 4.3 (3.5-5.0) g/dL Lipase 31 (8-78) U/L Independent Interpretation I performed an independent interpretation of an: EKG ( my interpretation patient's EKG showed a sinus rhythm heart rate is 70 VT QRS QTC normal no acute ST segment elevation diffuse T-wave flattening noted) Radiology Impression Discussion of test interpretation with radiology: I have reviewed the radiologist's reading. Independent Historian Clinical information obtained from an independent historian. History obtained from or confirmed by: Spouse External Record Review External record reviewed: Inpatient record and Office record ( previous cardiology record reviewed) Chronic Conditions Patient?s care impacted by: Diabetes and Hypertension Discharge Plan Discharge Clinical Impression: Chest pain Diabetes mellitus Qualifiers: Diabetes mellitus type: type 2 Diabetes mellitus residential insulin use: without bilingual call center representative use Diabetes mellitus complication status: without complication Q ualified Code(s): E11.9 - Type 2 diabetes mellitus without complications Patient Disposition: Home, Self-Care Instructions: Diabetes and Nutrition (ED), Chest Pain (ED) Additional Instructions: Please follow-up closely with cardiology. Prescriptions: No Action (DME) blood pressure monitor Kit See Rx Instructions .Route Qty: 1 0RF Rx Instructions: As directed (DME) lancets 28 gauge misc See Rx Instructions topical DIRECTED Qty: 100 0RF Rx Instructions: Test once daily (DME) blood-glucose meter [FreeStyle Lite Meter] Kit See Rx Instructions .Route Qty: 1 0RF Rx Instructions: As directed meclizine 25 mg tablet 25 mg PO DAILY PRN (Reason: dizziness) 15 Days Qty: 15 2RF zolpidem 10 mg tablet 10 mg PO BEDTIME PRN (Reason: insomnia) 90 Days Qty: 90 0RF (DME) FreeStyle Lite Strips Strip See Rx Instructions .ROUTE .COMPLEX Qty: 100 0RF Dose Instruction: USE TODOS [place] Rx Instructions: USE [place]OS [place] cholecalciferol (vitamin D3) 50 mcg (2,000 unit) capsule 50 mcg PO DAILY 90 Days Qty: 90 3RF hydrochlorothiazide 25 mg tablet 25 mg PO DAILY Qty: 90 0RF sucralfate [Carafate] 1 gram tablet 2 g PO DAILY Qty: 60 3RF aspirin 81 mg tablet,delayed release (DR/EC) 81 mg PO DAILY Qty: 90 1RF miconazole nitrate [Monistat 7] 2 % cream 1 appful vaginal BEDTIME 7 Days Qty: 45 0RF Rx Instructions: Use nightly for 7 nights in a row esomeprazole magnesium 40 mg capsule,delayed release(DR/EC) 40 mg PO BID Qty: 60 6RF acetaminophen [Tylenol Extra Strength] 500 mg tablet 500 mg PO Q6H PRN (Reason: pain or fever) Qty: 20 0RF prednisone 20 mg tablet 40 mg PO DAILY Qty: 10 0RF benzonatate 100 mg capsule 100 mg PO TID PRN (Reason: cough) Qty: 20 0RF calcipotriene 0.005 % solution topical loratadine [Claritin] 10 mg tablet 10 mg PO DAILY PRN (Reason: allergy symptoms) 90 Days Qty: 90 3RF albuterol sulfate 2.5 mg /3 mL (0.083 %) solution for nebulization 2.5 mg continuous nebulization QID PRN (Reason: shortness of breath or wheezing) (DME) RIGHT WRIST SPLINT (large) large See Rx Instructions .Route .MEDSUPPLY Qty: 1 0RF Rx Instructions: As directed albuterol sulfate 90 mcg/actuation HFA aerosol inhaler 2 puff PO QID PRN clotrimazole-betamethasone 1-0.05 % cream 1 appl topical BID 7 Days Qty: 45 0RF Rx Instructions: apply twice a day clindamycin phosphate 1 % lotion topical DAILY triamcinolone acetonide 0.1 % ointment 1 appl topical BID Qty: 30 1RF Rx Instructions: not for use on the face. sumatriptan succinate 50 mg tablet 50 mg PO Q2-4H PRN (Reason: migraine headache) Rx Instructions: do not exceed 4 doses per 24 hrs sennosides [Senna Laxative] 8.6 mg tablet 17.2 mg PO BEDTIME Qty: 60 6RF famotidine [Pepcid] 40 mg tablet 40 mg PO BEDTIME Qty: 30 6RF Synjardy 12.5-500 mg tablet 1 tab PO BID carvedilol 6.25 mg tablet 6.25 mg PO BID clotrimazole-betamethasone 1-0.05 % cream 1 appl topical BID 7 Days Qty: 45 0RF Rx Instructions: apply externally a thin coat to the area ezetimibe 10 mg tablet 10 mg PO DAILY hydroquinone 4 % cream 1 appl topical DAILY doxycycline monohydrate 100 mg capsule 100 mg PO DAILY Qty: 20 0RF fluticasone furoate-vilanterol [Breo Ellipta] 200-25 mcg/dose blister with device 1 inh inhalation DAILY Qty: 1 6RF Referrals: Wero Perez MD [Physician] - 06/02/24 Print Language: Kiswahili
[2024-05-31 17:25] LABS: Troponin-I High Sensitivity < 2.7 ng/L (<3.5-17.0)
[2024-05-31 18:25] VITALS: BP 143/71; PULSE 73; RESP 16; O2SAT 97
--- NOTE | 2024-05-31 18:33 | PC.NURSE ---
Patient from home and admitted via triage for chest pressure. Alert and oriented. Patient denies chest pain, just states chest pressure/tightness. Recent neck surgery, since surgery has had pain in left side of neck and c/o of right sided rib pain. Labs obtained.
[2024-05-31 19:13] LABS: D Dimer High Sensitivity < 150 NG/ML
[2024-05-31 19:44] LABS: Troponin-I High Sensitivity < 2.7 ng/L (<3.5-17.0)
[2024-05-31 20:36] VITALS: BP 126/55; PULSE 72; RESP 16; TEMP 36.8; O2SAT 98
== END 2024-05-31 20:36 | disposition home or self-care (01) ==
PROVIDERS: Physician Assistant; Emergency Provider Emergency Medicine Emergency Medical Services; PCP Internal Medicine Geriatric Medicine
DX: R07.89 Other chest pain (principal); E11.9 Type 2 diabetes mellitus without complications; I10 Essential (primary) hypertension; Z79.899 Other long term (current) drug therapy; Z79.84 Long term (current) use of oral hypoglycemic drugs
CPT/HCPCS: 36415; 71045; 80053; 83690; 83735; 84484; 85025; 85379; 85610; 93005; 99283; 99285

== ENCOUNTER 2024-06-03 13:40 | Outpatient (REF) | payer MEDICAID, SELFPAY ==
--- NOTE | 2024-06-03 15:35 | MHC.AU.HA1 ---
Hearing Aid Evaluation Date of Visit: 06/03/24 Asian Art Curator Used: Portuguese- By Phone Historical Information: Description of Hearing: Normal sloping to severe sensorineural hearing loss Current personal amplification information, if applicable: Previously fit with Phonak Audeo P70s, devices lost and out of warranty Summary: Farrah returned for hearing aid evaluation, last here in 2020 for fitting with Audeo P70s which are out of warranty. States aids are lost. Had recent hearing test at [facility] and received medical clearance. Selected Audeo I50s in [facility]. Will submit for prior authorization as aids were less than 5 years old. Hearing Aid Prescription: Based on the individual?s shared listening needs, communication environments, dexterity, desire for connectivity, and personal preferences, the following prescription for amplification has been made: Right ear: Make, Model, Color: Phonak Audeo I50 R, [facility] Battery Size: Rechargeable Centrifuge Separator Operator/Slim Tube: 1M Type of Earmold/Dome/CShell/SlimTip: small open Left ear: Left ear prescription to be same as Right Hearing Aid above: Make, Model, Color: [facility] I[facility], [facility] Battery Size: Rechargeable Centrifuge Separator Operator/Slim Tube: 1M Type of Earmold/Dome/CShell/SlimTip: small open Accessories/Assistive Technology Recommended: risk control consultant Action Taken/Action Needed: Prior authorization to be requested Hearing Instrument Fitting to be scheduled when materials arrive Primary Diagnosis: H90.3 Bilateral Sensorineural Hearing Loss Signature: Provider: Kane Brar, FIDEL-A
== END 2024-06-03 13:41 | disposition home or self-care (01) ==
LOC: HO.HAP 13:40
PROVIDERS: PCP Internal Medicine Geriatric Medicine; Visit Provider Otolaryngology
DX: Z46.1 Encounter for fitting and adjustment of hearing aid (principal); H90.3 Sensorineural hearing loss, bilateral
CPT/HCPCS: 92591

== ENCOUNTER 2024-06-17 12:45 | Outpatient (AMB) | payer MEDICAID, SELFPAY ==
[2024-06-17 13:07] VITALS: BP 150/90; PULSE 63; BMI 37.6
--- NOTE | 2024-06-17 13:07 | A.OFFVIS_ITS ---
Vital Signs 06/17/24 13:07 Height 5 ft 3 in Weight 212 lb BMI 37.6 BP 150/90 H Blood Pressure Location Lt brachial Position Sitting Pulse 63 Pulse Source Pulse Oximeter Intake Visit Reasons: 6 mth f/up/ED follow up [employer] Required: Yes [employer] Language: Registered Private Duty Nurse Services: [employer] Present [employer] Name: voice landeros [phone] Allergies acetaminophen [From Vicodin] Allergy (Intermediate, Verified 06/17/24 13:10) Palpitations, Itch amoxicillin [Prevpac] Allergy (Intermediate, Verified 06/17/24 13:10) itchy throat hydrocodone [From Vicodin] Allergy (Intermediate, Verified 06/17/24 13:10) Palpitations, Itch ibuprofen [From Motrin] Allergy (Intermediate, Verified 06/17/24 13:10) UPSET STOMACH, abdominal pain lansoprazole [Prevpac] Allergy (Intermediate, Verified 06/17/24 13:10) itchy throat morphine [MORPHINE] Allergy (Intermediate, Verified 06/17/24 13:10) PALPATATIONS, PANIC ATTACKS, nauseas,panic attack, heart palpitations omeprazole [From PRILOSEC] Allergy (Intermediate, Verified 06/17/24 13:10) ITCHY THROAT pravastatin [PRAVASTATIN] Allergy (Intermediate, Verified 06/17/24 13:10) UNKNOWN rosuvastatin [From CRESTOR] Allergy (Intermediate, Verified 06/17/24 13:10) UNKNOWN terbinafine [TERBINAFINE] Allergy (Intermediate, Verified 06/17/24 13:10) UNKNOWN atorvastatin [From LIPITOR] Allergy (Unknown, Verified 06/17/24 13:10) UNKNOWN clarithromycin [From BIAXIN] Adverse Reaction (Intermediate, Verified 06/17/24 13:10) ABD PAIN, DIARRHEA gabapentin [GABAPENTIN] Adverse Reaction (Intermediate, Verified 06/17/24 13:10) UNKNOWN, nausea, dizziness levofloxacin [LEVOFLOXACIN] Adverse Reaction (Intermediate, Verified 06/17/24 13:10) PALPITATIONS tylenol with codeine Allergy (Unknown, Uncoded 06/17/24 13:10) fast heart rate Medication List - Last Reconciled 06/17/24 by MAGDALENE Mcnulty acetaminophen (Tylenol Extra Strength) 500 mg PO Q6H PRN albuterol sulfate 2.5 mg continuous nebulization QID PRN albuterol sulfate 90 mcg/actuation 2 puffs PO QID PRN aspirin 81 mg PO DAILY benzonatate 100 mg PO TID PRN blood pressure monitor As directed blood sugar diagnostic (FreeStyle Lite Strips) USE [facility] blood-glucose meter (FreeStyle Lite Meter kit) As directed calcipotriene 0.005% topical carvedilol 6.25 mg PO BID cholecalciferol (vitamin D3) 50 mcg PO DAILY 90 days clindamycin phosphate 1% topical DAILY clotrimazole-betamethasone 1-0.05 % 1 appl topical BID 7 days clotrimazole-betamethasone 1-0.05 % 1 appl topical BID 7 days doxycycline monohydrate 100 mg PO DAILY empagliflozin-metformin 12.5-500 mg (Synjardy) 1 tab PO BID esomeprazole magnesium 40 mg PO BID famotidine (Pepcid) 40 mg PO BEDTIME fluticasone furoate-vilanterol 200-25 mcg/dose (Breo Ellipta) 1 inh inhalation DAILY hydrochlorothiazide 25 mg PO DAILY hydroquinone 4% 1 appl topical DAILY lancets Test once daily loratadine (Claritin) 10 mg PO DAILY PRN 90 days meclizine 25 mg PO DAILY PRN 15 days miconazole nitrate 2% (Monistat 7) 1 appful vaginal BEDTIME 7 days neomycin-polymyxin B-dexameth 3.5mg/mL-10,000 unit/mL-0.1 % 1 drp ophthalmic (eye) QID prednisone 40 mg (2 x 20 mg) PO DAILY [RIGHT WRIST SPLINT (large) As directed] sennosides (Senna Laxative) 17.2 mg (2 x 8.6 mg) PO BEDTIME sucralfate (Carafate) 2 grams (2 x 1 gram) PO DAILY sumatriptan succinate 50 mg PO Q2-4H PRN triamcinolone acetonide 0.1% 1 appl topical BID zolpidem 10 mg PO BEDTIME PRN 90 days HPI HPI 6 mth f/up/ED follow up: Details: Farrah is a 54-year-old female with past medical history of hypertension, hyperl ipidemia, diabetes, morbid obesity, nonobstructive coronary artery disease who was recently seen again in the emergency room for atypical chest discomfort and ruled out for ACS. She now presents for follow-up. Today she reports that she has been having a continual pain that runs from her epigastric region along her right side of ribs. She says this discomfort has been continual and it is not worse with palpation or movement. She also reports discomfort in her posterior neck and upper legs. Since last visit she re-tried simvastatin it is not able to tolerate. She is no longer taking Zetia. He has no chest discomfort brought on by physical activity. No concerning shortness of breath, no PND, orthopnea or edema. No palpitations, lightheadedness, presyncope, syncope, falls. She has been taking her carvedilol only once daily. Home blood pressures are generally well controlled with systolic ranging 127- 140. On occasion she will get a reading as high as 150. Certified [place] Citizen i nterpreter used. [facility] Medical History Encounter for well woman exam with routine gynecological exam Umbilical hernia Scalp mass Irritable bowel syndrome with diarrhea Allergic rhinitis Lumbar degenerative disc disease Breast pain during Carpal tunnel syndrome Arthritis Morbid obesity with BMI of 40.0-44.9, adult Insomnia Diabetes mellitus Benign essential hypertension Polyarthralgia Fibromyalgia Mixed hyperlipidemia Candidiasis of mouth and esophagus Thoracic spondylosis Surgical History Hx of dilation and curettage History of endometrial ablation Hx of colonoscopy History of esophagogastroduodenoscopy (EGD) History of dermoid cyst excision History of excision of lamina of cervical vertebra for decompression of spinal cord H/O hemorrhoidectomy History of appendectomy Family History Father NIDDY (non-insulin dependent diabetes mellitus in young) Cardiovascular disease Obesity Cancer of unknown origin Colon cancer Mother CAD (coronary artery disease) NIDDY (non-insulin dependent diabetes mellitus in young) Brother Schizophrenia Degenerative disc disease H/O lymph node cancer Sister Breast cancer Colon cancer Paternal Grandmother Ovarian cancer, Onset Age: 45 Daughter Fibromyalgia Hypertension Cancer of unknown origin Ovarian cancer Other Mental health problem Social History Household Members: None Housing: Apartment Alcohol intake: never Patient Tobacco Use Status: Never used Tobacco e-Cigarette/Vaping Use: Never Used Second Hand Smoke Exposure: No service: No Current occupational status: disabled 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 Sexual orientation: Straight/Heterosexual Gender identity: Female Cognitive needs: No Hearing needs: Yes Vision needs: Yes Female Reproductive History Menstrual Age of Menarche: 11 Review of Systems Const All systems reviewed & are unremarkable except as noted in HPI and below ENT Denies dizziness Card Reports chest pain, Reports chest pain at rest, Denies chest pain with activity, Denies rapid heart rate, Denies pedal edema, Denies edema, Denies leg edema, Denies lightheadedness, Denies palpitations, Denies dyspnea, Denies dyspnea on exertion and Denies orthopnea Resp Denies cough, Denies dyspnea and Denies dyspnea on exertion GI Denies hematochezia and Denies change in stool character Musc Denies abnormal gait, Denies limited range of motion, Denies muscle cramps, Denies muscle weakness, Denies numbness, Denies radiating pain into limb, Denies stiffness and Denies tingling Neuro Denies abnormal gait, Denies dizziness, Denies numbness and Denies tingling Endo Denies palpitations Physical Exam Vital Signs: Last Vital Signs Pulse 63 06/17/24 13:07 BP 150/90 H 06/17/24 13:07 BMI result Body Mass Index 37.6 Const General: cooperative, healthy appearing, comfortable and no acute distress Orientation/consciousness: patient oriented x3 Neck Neck: Yes normal visual inspection Resp Effort & Inspection: normal respiratory effort Auscultation: clear to auscultation bilaterally, no crackles, no rales, no rhonchi and no wheezes Cardio Jugular venous distension: no JVD Rate: regular rate Rhythm: regular rhythm Heart sounds: S1 normal heart sound present, S2 normal heart sound present, no murmurs and no rubs Back/Spine/Pelvis Other: tenderness to palpation along left mid back to left lateral thorax - winces and grimaces Neuro General: patient oriented x3 Extrem General: Yes normal to inspection Psych Appearance: grossly normal Mental Status: mental status grossly normal Speech and movement: Normal speech and movement present Assessment & Plan Assessment & Plan (1) CAD (coronary artery disease): Code(s): I25.10 - Atherosclerotic heart disease of [place] coronary artery without angina pectoris Category: Medical Plan: History of atypical chest discomfort with known history of mild nonobstructive coronary artery disease. Cardiac risk factors of hypertension, hyperlipidemia, diabetes and morbid obesity. A CTA of the coronary arteries was done on 11/15/2021 showing nonobstructive LAD stenosis, 30%, no definite stenosis elsewhere. ER evaluation on 11/04/2023 for atypical sounding chest discomfort and she ruled out for ACS. ER evaluation again on 05/31/2024 for chest discomfort and heart palpitations. She again ruled out for ACS. EKG at that time showed sinus rhythm with no acute ST or T-wave abnormalities, rate 73. Today she describes atypical chest discomfort. No exertional symptoms. She does have a history of fibromyalgia which may be contributing as she has various discomfort over her body. Spent time reviewing signs and symptoms of angina. Continue with risk factor modification and med management for stable CAD including aspirin 81 mg daily and carvedilol. She has been taking carvedilol only once daily. Her blood pressure is elevated today. Instructed to take it b.i.d. as ordered. She has been intolerant to statin and Zetia. Will check a fasting lipid at this time and plan to order PCSK9 inhibitor once available. She is agreeable to this plan. Continue with good diabetes control, Hemoglobin A1c goal should be less than 7. Cardiology follow-up in 6 months, sooner if needed. (2) Heart palpitations: Code(s): R00.2 - Palpitations Category: Medical Plan: On prior visit reported heart palpitations where her heart is beating fast for several minutes. No presyncope, syncope. Holter monitor done on 06/17/2023 for 22 hours showed sinus rhythm with average heart rate 60, frequent sinus Johan with 50% of the time heart rate below 60, no significant pauses, rare PACs. Recent ER visit for chest discomfort and palpitations without significant findings. Pulse is regular on exam today. (3) Benign essential hypertension: Code(s): I10 - Essential (primary) hypertension Category: Medical Plan: Elevated today. She tells me home blood pressures are usually normal. She is taking carvedilol only once daily. Will have her increase to b.i.d.. She will continue to monitor blood pressure at home and call if her systolics are running greater than 140. If blood pressure remains elevated at follow-up visits can add Felix/Arb. (4) Mixed hyperlipidemia: Code(s): E78.2 - Mixed hyperlipidemia Category: Medical Plan: [place] LDL goal less than 70. Labs done 09/09/2023 showed LDL 143. Intolerant to simvastatin and Zetia. Will recheck fasting lipids and plan to order PCSK9 inhibitor. Plan Time spent on chart review, documentation, interview and assessment Orders: Orders Lipid Panel Today E78.2 - Mixed hyperlipidemia Coding Level of Care Code Est Pt Level 4 (66991) Complex EM visit Add On G2211 Diagnoses CAD (coronary artery disease) I25.10 Heart palpitations R00.2 Benign essential hypertension I10 Mixed hyperlipidemia E78.2 Time Spent (min) 30
== END 2024-06-17 13:55 | disposition home or self-care (01) ==
PROVIDERS: PCP Internal Medicine Geriatric Medicine; Visit Provider Nurse Practitioner Family
DX: I25.10 Atherosclerotic heart disease of native coronary artery without angina pectoris (principal); R00.2 Palpitations; I10 Essential (primary) hypertension; E78.2 Mixed hyperlipidemia
CPT/HCPCS: 99214

== ENCOUNTER 2024-06-17 12:45 | Outpatient (REF) | payer MEDICAID, SELFPAY ==
[2024-06-17 14:50] LABS: Cholesterol 241 mg/dL (<200); HDL Cholesterol 41 mg/dL (>40); LDL Cholesterol Calculated 158 mg/dL (<100); Triglycerides 211 mg/dL (<150)
== END 2024-06-17 12:46 | disposition home or self-care (01) ==
LOC: HO.LAB 12:45
PROVIDERS: PCP Internal Medicine Geriatric Medicine; Visit Provider Nurse Practitioner Family
DX: E78.2 Mixed hyperlipidemia (principal); I25.10 Atherosclerotic heart disease of native coronary artery without angina pectoris; I10 Essential (primary) hypertension; R00.2 Palpitations
CPT/HCPCS: 36415; 80061; 99212

== ENCOUNTER 2024-07-12 14:31 | Outpatient (REF) | payer MEDICAID, SELFPAY ==
--- OUTSIDE RECORDS SUMMARY | 2024-07-12 15:24 | XMS_ITS | Encounter Summary ---
Author Organization [employer] [facility] Address [address] [place] [address] Support Name Relationship Address Phone Kimo Sprague Emergency Contact [address] [place] [address] Care Team Providers Care Helpdesk Administrator Name Role Phone Anila Craven MD Primary Care Provider Un available Stacy Parry MD Primary Care Provider Unavail able Victoriano Smith MD Primary Care Provider Unava ilable Bryce, Matt APPIAH Primary Care Provider UnavailReyna Yañez MD Unavailable [phone] Chris WallaceC Unavailable Latoya Hardy-Trevor Unavailable Reason for Visit * Reason Onset Date Comments dizziness 04/23/2017 Encounter Details Date Type Department Care Team Description 04/23/2017 Telephone Adult Medicine [address] [address] Anila Craven MD dizziness Social History Tobacco Use Types Packs/Day Years Used Date Smoking Tobacco: Never Alcohol Use Standard Drinks/Week Comments No 0 (1 standard drink = 0.6 oz pur e alcohol) Sex Assigned at Date Recorded Not on file documented as of this encounter Miscellaneous Notes * Telephone Encounter - Diane Gonsales R.N. - 04/23/2017 11:59 AM EST Pt reports dizziness/nausea x1 week. Dizziness not associated movement. Pt reports chest pain/pressure starting yesterday. Pt states pain radiates to the back of the neck and head. + SOB off/on. Pt advised to seek treatment in the ED, Pt verbalized understanding and agrees to plan. * Telephone Encounter - Yaima Lopezno - 04/23/2017 9:54 AM EST Symptoms patient is presenting: dizzy and nausea not constant If pain or injury related was it due to an accident at work or from a motor vehicle accident? NO If yes, gather 3rd republican insurance information Date of accident/Injury: How long has patient had these symptoms?: one week PCP: Anila Craven Payor: [employer] MEDICAID / Plan: [facility] MEDICAID HMO $0 [place] / Product Type: HMO [id number] documented in this encounter Plan of Treatment Not on file documented as of this encounter Visit Diagnoses Not on filedocumented in this encounter Care Teams Helpdesk Administrator Relationship Specialty Start Date End Date Anila Craven MD PCP - General Internal Medicine 09/03/16 9 Stacy Parry MD PCP - General Internal Medicine 02/21/19 01/20/20 Victoriano Smith MD PCP - General Internal Medicine 01/21/20 07/07/22 Matt Wu MD PCP - General Internal Medicine 07/08/22 Reyna Laboy MD [address] [address] Specialist Neurosurgery 12/22/23 Chris Wallace PA-C [address] [address] Specialist Neurosurgery 03/10/24 Latoya Hardy PA-C [address] [address] Specialist Neurosurgery 03/10/24 documented as of this encounter
--- OUTSIDE RECORDS SUMMARY | 2024-07-12 15:24 | XMS_ITS | Encounter Summary ---
Author Organization [facility] Address [address] [place] [address] Support Name Relationship Address Phone Kimo Sprague Emergency Contact [address] [place] [address] Care Team Providers Care Subpoena Server Name Role Phone Anila Craven MD Primary Care Provider Un available Stacy Parry MD Primary Care Provider Unavail able Victoriano Smith MD Primary Care Provider Unava ilable Name, Matt APPIAH Primary Care Provider UnavailReyna Yañez MD Unavailable [phone] Chris Wallace PA-C Unavailable [phone] Latoya Hardy PA-C Unavailable [phone] Encounter Details Date Type Department Care Team Description 04/16/2017 Orders Only Adult Medicine A - [place] [address] [place] [address] Alicia Crabtree PA-C [address] [place] [id number] Social History Tobacco Use Types Packs/Day Years Used Date Smoking Tobacco: Never Alcohol Use Standard Drinks/Week Comments No 0 (1 standard drink = 0.6 oz pur e alcohol) Sex Assigned at Date Recorded Not on file documented as of this encounter Plan of Treatment Not on file documented as of this encounter Visit Diagnoses Not on filedocumented in this encounter Care Teams Subpoena Server Relationship Specialty Start Date End Date Anila Craven MD PCP - General Internal Medicine 09/03/16 9 Stacy Parry MD PCP - General Internal Medicine 02/21/19 01/20/20 Victoriano Smith MD PCP - General Internal Medicine 01/21/20 07/07/22 Matt Wu MD PCP - General Internal Medicine 07/08/22 Reyna Laboy MD [address] [address] Specialist Neurosurgery 12/22/23 Chris Wallace PA-C [address] [address] Specialist Neurosurgery 03/10/24 Latoya Hardy PA-C [address] [address] Specialist Neurosurgery 03/10/24 documented as of this encounter
--- OUTSIDE RECORDS SUMMARY | 2024-07-12 15:24 | XMS_ITS | Encounter Summary ---
Author Organization [facility] Address [address] [place] [address] Support Name Relationship Address Phone Kimo Sprague Emergency Contact [address] [place] [address] Care Team Providers Care Acid Extractor Name Role Phone Stacy Parry MD Primary Care Provider Unavail able Victoriano Smith MD Primary Care Provider Unava ilable Name, Matt APPIAH Primary Care Provider UnavailReyna Yañez MD Unavailable [phone] Chris Wallace PA-C Unavailable Latoya Hardy PA-C Unavailable Reason for Visit * Reason Onset Date Comments Pre-visit Diabetes Lab Adult Medicine 06/16/2019 Dm due on 06/29/19 at 300pm Encounter Details Date Type Department Care Team Description 06/16/2019 Telephone Respiratory and Diabetes Medicaid/ACO Pharmacist [address] [place] [address] Stacy Parry MD Pre-visit Diabetes Lab Adult Medicine (Dm due on 06/29/19 at 300pm) Social History Tobacco Use Types Packs/Day Years Used Date Smoking Tobacco: Never Smokeless Tobacco: Never Alcohol Use Standard Drinks/Week Comments No 0 (1 standard drink = 0.6 oz pur e alcohol) Sex Assigned at Date Recorded Not on file documented as of this encounter Miscellaneous Notes * Telephone Encounter - Crissy Wing - 06/16/2019 8:47 AM EST Farrah Bc is scheduled to see you on 06/29/19 for diabetes follow up . I have contacted the patient and instructed them to have their labwork done 1 week prior to the appointment. Diabetes pre-visit orders have been pended. Please sign the orders then route the encounter back to sender . Do not close the encounter. If there are other orders you would like performed prior to the visit, please add them to the pended orders then sign all the orders. I would ask that any orders entered by the [facility] Medicaid staff be associated with a diabetes diagnosis. You can use any diabetes diagnosis found on the problem list. Crissy Wing Community Health Worker [facility] Plan [facility] W [phone] F [phone] documented in this encounter Plan of Treatment Not on file documented as of this encounter Results * (ABNORMAL) HEMOGLOBIN A1C (08/27/2019 11:09 AM EDT) GLYCATED HEMOGLOBIN A1C 6.6(H) <6.5 % 08/28/2019 10:09 AM EDT [facility] ESTIMATED AVERAGE GLUCOSE 143 mg/dL 08/28/2019 10:09 AM EDT [facility] 08/27/2019 11:0 9 AM EDT 08/27/2019 11:09 AM EDT Stacy Parry MD LAB [facility] documented in this encounter Visit Diagnoses Diagnosis Type 2 diabetes mellitus with neurological manifestations, controlled (HCC)- Primary Type II or unspecified type diabetes mellitus with neurological manifestations, not stated as uncontrolled documented in this encounter Care Teams Acid Extractor Relationship Specialty Start Date End Date Stacy Parry MD PCP - General Internal Medicine 02/21/19 01/20/20 Victoriano Smith MD PCP - General Internal Medicine 01/21/20 07/07/22 Matt Wu MD PCP - General Internal Medicine 07/08/22 Reyna Laboy MD [address] [address] Specialist Neurosurgery 12/22/23 Chris Wallace PA-C [address] [facility] [address] [place] [address] Specialist Neurosurgery 03/10/24 Latoya Hardy PA-C [address] [place] [address] Specialist Neurosurgery 03/10/24 documented as of this encounter
--- OUTSIDE RECORDS SUMMARY | 2024-07-12 15:24 | XMS_ITS | Encounter Summary ---
Author Organization [employer] Address [address] [place] [address] Care Team Providers Care Desktop Publisher Name Role Phone Name, Matt APPIAH Primary Care Provider [phone] Encounter Details Date Type Department Care Team (Late st Contact Info) Description 06/17/2024 Orders Only GENERIC EXTERNAL DATA DEPARTMENT Provider, Generic External Data Social History Tobacco Use Types Packs/Day Years Used Date Smoking Tobacco: Never Smokeless Tobacco: Never Alcohol Use Standard Drinks/Week Comments Never 0 (1 standard drink = 0.6 oz pur e alcohol) Depression Answer Date Recorded Patient Health Questionnaire-9 Score 0 09/07/2023 Patient Health Questionnaire-9 Score 0 09/07/2023 Last PHQ-9: Questionnaire Data Not on file 0 09/07/2023 Housing Stability Answer Date Recorded What is your housing situation today? I have [place]i [place] 12/18/[address] you li ve. Do you have problems with any of the following? None of the above 12/18/2023 Food Insecurity Answer Date Recorded Within the past 12 months, y ou worried that your food would run out before you got money to buy more: Never True 12/18/2023 Within the past 12 months,th e food you bought just didn't last and you didn't have enough money to get more: Never True 10/2023 Transportation Answer Date Recorded In the past 12 months, has l ack of transportation kept you from medical appts, meetings, work or from getting things needed for daily living? No 12/18/2023 Utilities Answer Date Recorded In the past 12 months, has t he electric, gas, oil or water company threatened to shut off services in your home? No 12/18/2023 Depression Answer Date Recorded Patient Health Questionnaire-2 Score 0 09/07/2023 Internet Access Answer Date Recorded Internet Access Q1 Yes 02/15/2024 Internet Access Q2 Not on file 02/15/2024 Comments Unknown Sex and Gender Information Value Date Recorded Sex Assigned at Female 04/14/2022 10:15 AM EDT Legal Sex Female 10:15 AM EDT Gender Identity Female 04/14/2022 10:15 AM EDT Sexual Orientation Straight 04/14/2022 10 :15 AM EDT documented as of this encounter Plan of Treatment Upcoming Encounters Date Type Department Care Team (Late st Contact Info) Description 08/15/2024 2:30 PM EST Office Visit [facility] [address] [place] [address] Name, MD Matt [address] [place] [address] documented as of this encounter Procedures Procedure Name Priority Date/Time Associated Diagnosis Comments LIPID PANEL, STANDARD Routine 06/17/2024 2:09 PM EST documented in this encounter Results * (ABNORMAL) Lipid Panel, Standard (06/17/2024 2:09 PM EST) Triglycerides 211(H) <150 mg/dL [facility] Comment:Desirable Triglyceri de: less than 150 mg/dLBorderline High Triglyceride 150-199 mg/dLHigh Triglyceride: 200-499 mg/dLVery High Triglyceride: greater than or equal to 5OO mg/dL Cholesterol 241(H) <200 mg/dL [facility] Comment:Desirable Cholestero l: less than 200 mg/dLBorderline High Cholesterol: 200-239 mg/dLHigh Cholesterol: greater than 239 mg/dL LDL Cholesterol Calculated 158(H) <100 mg/dL [facility] Comment:Desirable LDL: less than 100 mg/dLNear Optimal/Above Optimal LDL: 110- 129 mg/dLBorderline High LDL: 130-159 mg/dLHigh LDL: 160-189 mg/dLVery High LDL: greater than or equal to 190 mg/dL HDL Cholesterol 41 >40 mg/dL [facility] Comment:Desirable HDL: great er than 40 mg/dL Note: This HDL assay may give artificially low results in patients with liver disease. 06/17/2024 2:09 PM EST 06/17/2024 2:09 PM EST us Generic External Data Provider LAB BLOOD ORDERAB LES Final Result [facility] [address] [place] [address] [phone] documented in this encounter Visit Diagnoses Not on filedocumented in this encounter Additional Health Concerns Assessment Noted Time PHQ-9 Depression Total Score: 0 09/07/19 24 3:15 PM EDT documented as of this encounter Care Teams Desktop Publisher Relationship Specialty Start Date End Date Name, MD Matt [address] [place] [address] PCP - General Family Medicine 02/21/22 Estephanie Tan Control Room TenderAnalysis Specialist 11/24/23 documented as of this encounter
--- OUTSIDE RECORDS SUMMARY | 2024-07-12 15:25 | XMS_ITS | Encounter Summary ---
Author Organization [facility] Address [address] [place] [address] Support Name Relationship Address Phone Kimo Sprague Emergency Contact [address] [place] [address] Care Team Providers Care Mussel Opener Name Role Phone Anila Craven MD Primary Care Provider Un available Stacy Parry MD Primary Care Provider Unavail able Victoriano Smith MD Primary Care Provider Unava ilable Name, Matt APPIAH Primary Care Provider Unavailabl e Reyna Laboy MD Unavailable [phone] Chris Wallace PA-C Unavailable Latoya Hardy PA-C Unavailable [phone] Encounter Details Date Type Department Care Team Description 10/14/2016 Release of Information Medical Records [address] [place] [address] Abstract, Provider Social History Tobacco Use Types Packs/Day Years Used Date Smoking Tobacco: Never Alcohol Use Standard Drinks/Week Comments No 0 (1 standard drink = 0.6 oz pur e alcohol) Sex Assigned at Date Recorded Not on file documented as of this encounter Plan of Treatment Not on file documented as of this encounter Visit Diagnoses Not on filedocumented in this encounter Care Teams Mussel Opener Relationship Specialty Start Date End Date Anila Craven MD PCP - General Internal Medicine 09/03/16 9 Stacy Parry MD PCP - General Internal Medicine 02/21/19 01/20/20 Victoriano Smith MD PCP - General Internal Medicine 01/21/20 07/07/22 Matt Wu MD PCP - General Internal Medicine 07/08/22 Reyna Laboy MD [address] [address] Specialist Neurosurgery 12/22/23 Chris Wallace PA-C [address] [address] Specialist Neurosurgery 03/10/24 Latoya Hardy PA-C [address] [address] Specialist Neurosurgery 03/10/24 documented as of this encounter
--- OUTSIDE RECORDS SUMMARY | 2024-07-12 15:25 | XMS_ITS | Encounter Summary ---
Author Organization [facility] Address [address] [place] [address] Support Name Relationship Address Phone Kimo Sprague Emergency Contact [address] [place] [address] Care Team Providers Care Public Address System Operator Name Role Phone Anila Craven MD Primary Care Provider Un available Stacy Parry MD Primary Care Provider Unavail able Victoriano Smith MD Primary Care Provider Unava ilable Name, Matt APPIAH Primary Care Provider UnavailReyna Yañez MD Unavailable [phone] Chris Wallace PA-C Unavailable Latoya Hardy PA-C Unavailable [phone] Encounter Details Date Type Department Care Team Description 01/06/2019 Speed Winder Report Medical Records [address] [place] [address] [place] [address] [place], [place] [id number] Social History Tobacco Use Types Packs/Day Years [...] on filedocumented in this encounter Care Teams Public Address System Operator Relationship Specialty Start Date End Date Anila Craven MD PCP - General Internal Medicine 09/03/16 9 Stacy Parry MD PCP - General Internal Medicine 02/21/19 01/20/20 Victoriano Smith MD PCP - General Internal Medicine 01/21/20 07/07/22 Matt Wu MD PCP - General Internal Medicine 07/08/22 Reyna Laboy MD [address] [id number] Specialist Neurosurgery 12/22/23 Chris Wallace PA-C [address] [id number] Specialist Neurosurgery 03/10/24 Latoya Hardy PA-C [address] [address] Specialist Neurosurgery 03/10/24 documented as of this encounter
--- OUTSIDE RECORDS SUMMARY | 2024-07-12 15:25 | XMS_ITS | Encounter Summary ---
Author Organization [employer] Address [address] [facility] [address] [place] [address] Care Team Providers Care Fishing Instructor Name Role Phone Name, Matt APPIAH Primary Care Provider [phone] Reason for Visit * Reason Onset Date Comments Care Coordination 11/24/2023 [id number] a ssessment Encounter Details Date Type Department Care Team ([facility] st Contact Info) Description 11/24/2023 Telephone [facility] MEDICINE [address] [place] [address] Estephanie Tan, RN Care Coordination ([id number] assessment) Social History Tobacco Use Types Packs/Day Years [...] your housing situation today? I have chiqui [place] 04/01/[address] you li ve. Do you have problems with any of the following? None of the above 04/01/2023 Food Insecurity Answer Date Recorded Within the past 12 months, y ou worried that your food would run out before you got money to buy more: Never True 04/01/2023 Within the past 12 months,th e food you bought just didn't last and you didn't have enough money to get more: Never True Transportation Answer Date Recorded In the past 12 months, has l ack of transportation kept you from medical appts, meetings, work or from getting things needed for daily living? No 04/01/2023 Utilities Answer Date Recorded In the past 12 months, has t he [employer], [employer], oil or water [employer] threatened to shut off services in your home? No 04/01/2023 Depression Answer Date Recorded Patient Health Questionnaire-2 Score 0 09/07/2023 Comments Unknown Sex and Gender Information Value Date Recorded Sex Assigned at Female 04/14/2022 10:15 AM EDT Legal Sex Female 10:15 AM EDT Gender Identity Female 04/14/2022 10:15 AM EDT Sexual Orientation Straight 04/14/2022 10 :15 AM EDT documented as of this encounter Miscellaneous Notes * Telephone Encounter - Estephanie Tan RN - 11/24/2023 2:31 PM EDT MARIA ANTONIA Tan RN placed outbound call to patient with [facility] Radha Borden translating for agreed upon time for initial assessment for enrollment into Adult Care Management Program. Patient's name, , and address were verified. Member is a 53 year old female, Micronesian speaking. Patient is alert andoriented x 3. Patient with history of Migraine, asthma, HLD, HTN, Carpal tunnel syndrome, fatty liver, DM, arthritis, fibromyalgia, psoriasis, obesity, OA. Patient lives alone, able to climb stairs using handrails. Complain of body pain due to arthritis, takes Tylenol with good effect. Patient wears glasses to be able to see. Reports she does get food stamps but does not usually last one month. Ziggy martin states up to date with teeth cleaning every 6 months. Patient reports she fills her own medication box to remind her to take them. States she does use food pantry when needed. Reports she did see dermatology yesterday for her psoriasis. Reports she went to [facility] on 11/04/2023 for chest pain, dizziness, work up negative, ?Patient had follow up ED appointment with PCP11/06/2023. Patient stopped taking statin muscle discomfort. This was changed to Zetia 10mg daily. Also placed on Baclophen 10mg 2 times a day. Next PCP appointment is 12/18/2023. Care management program explained and contact information given. Patient verbalizes understanding, and able to repeat back to abstract writer. A follow up call will be placed within 10 days, patient agrees with plan. MARIA ANTONIA Tan RN, provided notification to PCP Name of patient's enrollment into [facility]. MARIA ANTONIA Tan RN, completed care plan and sent to HIM to be scanned into the medical record. PCP notified and awaiting review from provider. MARIA ANTONIA Tan RN performed medication reconciliation with patient via telephone. Active medications, dosing and frequency reviewed and discussed. Medication changes or discrepancies communicated to the PCP. documented in this encounter Plan of Treatment Upcoming Encounters Date Type Department Care Team (Late st Contact Info) Description 08/15/2024 2:30 PM EST Office Visit [facility] MEDICINE [address] [place] [id number] Name, MD Matt [address] [place] [phone] documented as of this encounter Visit Diagnoses Not on filedocumented in this encounter Additional Health Concerns Assessment Noted Time PHQ-9 Depression Total Score: 0 09/07/19 3:15 PM EDT documented as of this encounter Care Teams Fishing Instructor Relationship Specialty Start Date End Date Name, MD Matt [address] [place] [id number] PCP - General Family Medicine 02/21/22 Estephanie Tan Separations ScientistDigital Publishing Specialist 11/24/23 documented as of this encounter
--- OUTSIDE RECORDS SUMMARY | 2024-07-12 15:25 | XMS_ITS | Data Portability ---
Author Organization [place] [facility], Allergy Address [address] [place] [phone] Care Team Providers Care Glass Melt Operator Name Role Phone YOLANDA VANEGAS Referring Provider [phone] Assessment Encounter Date Assessment Date Assessment LastModified by Organization Details LastModified Time 05/27/2024 05/27/2024 54-year-old female with bilateral SNHL presents for evaluation of the ears. She reports bilateral tinnitus, left worse than right, for two months. She stopped wearing amplification one year ago due to ear pruritus. Otologic exam demonstrates TMs are intact with well-aerated middle ear spaces. Audiogram shows normal hearing through 2K Hz sloping to a profound SNHL, essentially stable compared to audiometric testing performed in 2020. Tympanometry is normal. Patient is medically cleared for amplification. Recommend she follow up with [facility], and discussed hearing aids would help mask her tinnitus. MRI of the IACs in 2021 did not demonstrate retrocochlear pathology. The patient's auricular discomfort is most likely consistent with intermittent inflammation of the jaw joint or spasm of the surrounding musculature. I recommended the patient use light massage, warm compresses and anti-inflammator ies for symptomatic management. Stressed chewing evenly on both sides of the mouth to keep from overworking the jaw joint. Use soft food diet as needed. Recommend annual follow up with repeat audiometric testing, or sooner with any concerns. loyd Not available 05/27/2024 12:01:38 Plan of Treatment Reminders Order Date Submit Date Provider Last Modified By Organization Details Last Modified Time Details Appointments None record ed. Lab None record ed. Referral None record ed. Procedures None record ed. Surgeries None record ed. Imaging None record ed. Medication Orders None record ed. Patient TargetsNo targets recorded. Patient InstructionsNo instructions recorded. Reason for Referral None Reported. Results Created Date Observation Date Name Description Value Unit Range Abnormal Flag Note LastModifiedBy Organization Detail LastModifiedTime 05/27/20 24 01/10/2021 audio gram No observ ation record ed. [email or web address] Not Available 05/15 11:56:48 05/27/20 audio gram No observ ation record ed. BARCODE Not Available 2023 15:09:13 Result Notes None recorded. Problems Name Problem SNOMED Code Status Onset Date Resolution Date Notes Provider Name and Address Organization Details Recorded Time Dizziness and giddiness [id number] Active 2017 Dizziness and giddiness ; Note: Date Diagnosed : 02/11/2018 2:44 PM (R42) Not Available [facility] 4 03:04:54 Sensorine ural hearing loss of bilateral ears 228397041 Active 2020 Sensorine ural hearing loss, bilateral ; Note: Date Diagnosed : 01/10/2021 2:50 PM (H90.3) Not Available [facility] 4 03:04:55 Headache 96093385 Active 2017 Headache, unspecifi ed; Note: Changed from R51 to R51.9 (07/19/2021 2:06 PM) , Date Diagnosed : 02/11/2018 2:44 PM (R51) Not Available [facility] 4 03:04:55 Migraine 35842063 Active 2020 Other migraine, not intractab le, without status migrainos us; Note: Date Diagnosed : 1 4:10 PM (G43.809) Not Available [facility] 4 03:04:56 Gastroeso phageal reflux disease without esophagit is 877032301 Active 2017 Gastro-es ophageal reflux disease without esophagit is; Note: Date Diagnosed : 03/05/2018 1:19 PM (K21.9) Not Available [facility] 4 03:04:53 Cough 08465423 Active 2017 Cough; Note: Date Diagnosed : 03/05/2018 1:16 PM (R05) Not Available [facility] 4 03:04:55 Referred otalgia of left ear [id number] 60084 Active 2023 MARISSA CARCAMO PA-C [address] [facility],[facility] [address], [facility] [place], [address] , [facility] - [facility] 4 12:01:45 Bilateral tinnitus 75441987048 02 Active 2023 MARISSA CARCAMO PA-C [address] [facility] [address],[facility] [address], [facility] [place], [address] , [place] - [facility] 4 12:01:52 Problem Notes None recorded. Procedures Surgical History Date Name Laterality Status Provider Name and Address Organization Details Recorded Time 024 Air & Speech Audio with Tymps (67536, 59422 & 37929) completed SHAHLA SLOAN [address] [facility] [address], [place], [address], [facility] - [facility] 05/27/2024 11:03:21 hemorrhoidectomy completed Mica Horner [facility] - [facility] 05/27/2024 10:56:11 Appendectomy completed Mica Horner [facility] 05/27/2024 10:56:15 Imaging Results Imaging Date Name Status LastModified by Organiz ation Details LastModified Time 01/10/2021 audiogram completed [email or web address] Information n ot available 05/27/2024 11:56:48 05/27/2024 audiogram completed BARCODE Information no t available 05/27/2024 15:09:13 Procedure Notes None recorded. Medical Equipment None Reported. Allergies Allergen ID Allergen Name Allergen Category Reaction Reaction Severity Criticality Documentation Date Start Date Code Code System Note Provider Name and Address Organization Details Recorded Time 44164 gabapenti n medicatio n other Not available Not available 10/27/2023 88723 RxNorm React ion: unkno wn, unspe cifie d;; Not Available [facility] 4 00:48:25 29994 terbinafi ne medicatio n other Not available Not available 10/27/2023 05826 RxNorm React ion: unkno wn, unspe cifie d;; Not Available [facility] 4 00:48:25 33648 Lipitor medicatio n other Not available Not available 10/27/2023 17562 5 RxNorm React ion: unkno wn, unspe cifie d;; Not Available [facility] 4 00:48:25 44596 Crestor medicatio n other Not available Not available 10/27/2023 78090 4 RxNorm React ion: unkno wn, unspe cifie d;; Not Available [facility] 4 00:48:34 87356 sodium medicatio n other Not available Not available 10/27/2023 9853 RxNorm React ion: unkno wn, unspe cifie d;; Not Available [facility] 4 00:48:41 84043 Biaxin medicatio n other Not available Not available 10/27/2023 69295 9 RxNorm React ion: unkno wn, unspe cifie d;; Not Available [facility] 4 00:48:42 26156 Motrin medicatio n other Not available Not available 10/27/2023 83190 8 RxNorm React ion: unkno wn, unspe cifie d;; Not Available [facility] 4 00:48:53 27912 morphine medicatio n other Not available Not available 10/27/2023 7052 RxNorm React ion: unkno wn, unspe cifie d;; Not Available [facility] 4 00:48:59 59253 acetamino phen / hydrocodo ne medicatio n other Not available Not available 10/27/2023 02449 2 RxNorm React ion: unkno wn, unspe cifie d;; Not Available [facility] 4 00:49:06 41745 pravastat in medicatio n other Not available Not available 10/27/2023 50897 RxNorm React ion: unkno wn, unspe cifie d;; Not Available [facility] 4 00:49:07 Medications Name Sig Start Date Stop Date Status Note LastModified by Organization Details LastModified Time nystatin 100,000 unit/mL oral suspensio n 05/27 completed Medicati on ID: [id number] D uration Value: 30 Brand Name: nystatin Send Method: E-Prescr ibed Sub s Allowed: subs OK Speci al Instruct ion: SWISH 4mls IN MOUTH OR throat 4 (FOUR) TIMES DAILY Me dication GenericN louie: nystatin Not Available Not Available Not Available carvedilo l 6.25 mg tablet TAKE 1 TABLET BY MOUTH two (2) times a day WITH A MEAL active Not Available Not Available No t Available ketoconaz ole 2 % shampoo APPLY TO THE AFFECTED AREA 2 X EACH WEEK. apply on scalp. Leave on for 5 minutes then rinse off 05/27 completed Not Available Not Available Not Available albuterol sulfate 2.5 mg/3 mL (0.083 %) solution for nebulizat ion INHALE THE CONTENT OF 1 VIAL (3mls) VIA NEBULIZE R 4 (FOUR) TIMES DAILY NEEDED FOR SHORTNES S OF BREATH OR FOR WHEEZING active Not Available Not Available No t Available cetirizin e 10 mg tablet TAKE 1 TABLET BY MOUTH ONCE DAILY IN THE MORNING active Not Available Not Available No t Available fluconazo le 150 mg tablet TAKE 1 TABLET BY MOUTH ONCE 05/27 completed Not Available Not Available Not Available sucralfat e 1 gram tablet TAKE 2 TABLETS BY MOUTH ONCE DAILY 05/27 completed Not Available Not Available Not Available hydroquin one 4 % topical cream APPLY TOPICALL Y TO HYPERPIG MENTED AREA ON FACE TWICE DAILY FOR 4 MONTHS 05/27 completed Not Available Not Available Not Available famotidin e 40 mg tablet TAKE 1 TABLET BY MOUTH AT BEDTIME 05/27 completed Not Available Not Available Not Available prednison e 20 mg tablet TAKE 2 TABLETS BY MOUTH ONCE DAILY 05/27 completed Not Available Not Available Not Available Alcohol Pads 05/27 completed Medicati on ID: [id number] D uration Value: 30 Brand Name: Alcohol Pads Sen d Method: E-Prescr ibed Sub s Allowed: subs OK Speci al Instruct ion: USE 3 (THREE) TIMES A DAY Medi cationGe nericNam e: Alcohol Pads Not Available Not Available Not Available miconazol e nitrate 2 % vaginal cream INSERT 1 APPLICAT ORFUL VAGINALL Y ONCE DAILY AT BEDTIME FOR 7 DAYS 05/27 completed Not Available Not Available Not Available sulfameth oxazole 800 mg-trimet hoprim 160 mg tablet TAKE 1 TABLET BY MOUTH two (2) times a day FOR 5 DAYS 05/27 completed Not Available Not Available Not Available aspirin 81 mg tablet,de layed release TAKE 1 TABLET BY MOUTH ONCE DAILY active Not Available Not Available No t Available carvedilo l 3.125 mg tablet 05/27 completed Medicati on ID: [id number] D uration Value: 30 Brand Name: carvedil ol Send Method: E-Prescr ibed Sub s Allowed: subs OK Speci al Instruct ion: TAKE ONE TABLET BY MOUTH 2 (two) times a day WITH A MEAL Med [facility] enElizabet me: carvedil ol Not Available Not Available Not Available meclizine 25 mg tablet TAKE 1 TABLET BY MOUTH NEEDED IN THE MORNING, AT NOON, AND AT BEDTIME FOR mareo 05/27 completed Not Available Not Available Not Available phenazopy ridine 100 mg tablet TAKE 1 TABLET BY MOUTH NEEDED IN THE MORNING, AT NOON, AND AT BEDTIME FOR UP TO 2 DAYS FOR bladder spasms 05/27 completed Not Available Not Available Not Available baclofen 10 mg tablet TAKE 1 TABLET BY MOUTH two (2) times a day 05/27 completed Not Available Not Available Not Available doxycycli ne monohydra te 100 mg capsule TAKE 1 CAPSULE BY MOUTH ONCE DAILY 05/27 completed Not Available Not Available Not Available pantopraz ole 40 mg tablet,de layed release TAKE 1 TABLET BY MOUTH two (2) times a day 05/27 completed Not Available Not Available Not Available esomepraz ole magnesium 40 mg capsule,d elayed release TAKE 1 CAPSULE BY MOUTH two (2) times a day active Not Available Not Available No t Available neomycin- polymyxin -dexameth 3.5 mg/mL-10, 000 unit/mL-0 .1% eye drops INSTILL 1 DROP IN EACH EYE 4 (FOUR) TIMES DAILY FOR 2 WEEKS active Not Available Not Available No t Available clotrimaz ole-betam ethasone 1 %-0.05 % topical cream APPLY TO THE AFFECTED AREA TOPICALL Y two (2) times a day FOR 7 DAYS. apply external ly a thin coat to the area 05/27 completed Not Available Not Available Not Available olopatadi ne 0.1 % eye drops INSTILL 1 DROP INTO AFFECTED EYE(S) two (2) times a day 05/27 completed Not Available Not Available Not Available polymyxin B sulfate 10,000 unit-trim ethoprim 1 mg/mL eye drops INSTILL 1 TO 2 DROP EYE 4 (FOUR) TIMES DAILY FOR 10 DAYS 05/27 completed Not Available Not Available Not Available hydrochlo rothiazid e 25 mg tablet TAKE 1 TABLET BY MOUTH ONCE DAILY active Not Available Not Available No t Available mometason e 0.1 % topical ointment APPLY TO THE AFFECTED AREA TOPICALL Y ONCE DAILY 05/27 completed Not Available Not Available Not Available zolpidem 5 mg tablet 05/27 completed Medicati on ID: [id number] D uration Value: 28 Brand Name: zolpidem Send Method: E-Prescr ibed Sub s Allowed: subs OK Speci al Instruct ion: TAKE ONE TABLET BY MOUTH AT BEDTIME Medicati onGeneri cName: zolpidem Not Available Not Available Not Available zolpidem 10 mg tablet TAKE 1 TABLET BY MOUTH EVERY NIGHT AT BEDTIME FOR SLEEP active Not Available Not Available No t Available clobetaso l 0.05 % scalp solution APPLY TO SCALP two (2) times a day NEEDED FOR FLARES. DECREASE USE SYMPTOMS IMPROVE active Not Available Not Available No t Available ondansetr on 4 mg disintegr ating tablet 05/27 completed Medicati on ID: [id number] D uration Value: 30 Brand Name: bree parson Send Method: E-Prescr ibed Sub s Allowed: subs OK Speci al Instruct ion: DISSOLVE 1 TABLETS UNDER THE TONGUE EVERY 4 HOURS NEEDED M edicatio nGeneric Name: bree parson Not Available Not Available Not Available fluticaso ne propionat e 50 mcg/actua tion nasal spray,judith pension SPRAY TWICE IN EACH NOSTRIL ONCE DAILY IN THE MORNING. shake gently. Before first use, prime pump. After use, clean tip and replace cap active Not Available Not Available No t Available clotrimaz ole 1 % topical cream APPLY TO THE AFFECTED AREA TOPICALL Y two (2) times a day 05/27 completed Not Available Not Available Not Available ipratropi um bromide 21 mcg (0.03 %) nasal spray SPRAY TWICE IN EACH NOSTRIL EVERY TWELVE HOURS 05/27 completed Not Available Not Available Not Available amoxicill in 875 mg-potass ium clavulana te 125 mg tablet TAKE 1 TABLET BY MOUTH two (2) times a day FOR 5 DAYS 05/27 completed Not Available Not Available Not Available esomepraz ole magnesium 20 mg capsule,d elayed release 05/27 completed Medicati on ID: [id number] D uration Value: 30 Brand Name: donald parnell Send Method: E-Prescr ibed Sub s Allowed: subs OK Speci al Instruct ion: TAKE ONE CAPSULE BY MOUTH 2 (two) times a day Medi cationGe nericNam e: donald parnell Not Available Not Available Not Available oxycodone 5 mg tablet TAKE 1 TABLET BY MOUTH EVERY 6 HOURS NEEDED FOR PAIN lucy active Not Available Not Available No t Available azithromy xiomy 500 mg tablet TAKE 1 TABLET BY MOUTH ONCE DAILY FOR 5 DAYS 05/27 completed Not Available Not Available Not Available ezetimibe 10 mg tablet TAKE 1 TABLET BY MOUTH ONCE DAILY 05/27 completed Not Available Not Available Not Available cyclobenz aprine 5 mg tablet TAKE 1 TABLET BY MOUTH 3 (THREE) TIMES A DAY NEEDED FOR MUSCLE SPASM FOR UP TO 10 DAYS active Not Available Not Available No t Available nitrofura ntoin monohydra te/macroc rystals 100 mg capsule TAKE 1 CAPSULE BY MOUTH two (2) times a day FOR 5 DAYS 05/27 completed Not Available Not Available Not Available Advair HFA 230 mcg-21 mcg/actua tion aerosol inhaler INHALE 2 PUFF BY MOUTH EVERY TWELVE HOURS active Not Available Not Available No t Available FreeStyle Lite Strips USE TO TEST FINGER STICK BLOOD SUGAR ONCE DAILY active Not Available Not Available No t Available D3-2000 50 mcg (2,000 unit) capsule 2017 active Medicati on ID: [id number] D uration Value: 30 Brand Name: D3 Send Method: E-Prescr ibed Sub s Allowed: subs OK Speci al Instruct ion: TAKE ONE CAPSULE BY MOUTH DAILY Me dication GenericN louie: D3-2000 Not Available Not Available Not Available Easy Comfort Lancets 30 gauge 05/27 completed Medicati on ID: [id number] D uration Value: 30 Brand Name: Easy Touch Lancets Send Method: E-Prescr ibed Sub s Allowed: subs OK Speci al Instruct ion: USE TO TEST FINGER STICK BLOOD SUGAR 3 (THREE) TIMES A DAY Medi cationGe nericNam e: Easy Touch Lancets Not Available Not Available Not Available Breo Ellipta 200 mcg-25 mcg/dose powder for inhalatio n INHALE 1 PUFF BY MOUTH ONCE DAILY active Not Available Not Available No t Available Synjardy 12.5 mg-500 mg tablet TAKE 1 TABLET BY MOUTH two (2) times a day (WITH BREAKFAS T AND DINNER) active Not Available Not Available No t Available Procto-Me d HC 2.5 % topical cream perineal applicato r APPLY RECTALLY two (2) times a day FOR 2 WEEKS, burns FOR 2 WEEK THEN USE FOR 2 WEEK 05/27 completed Not Available Not Available Not Available Vtama 1 % topical cream APPLY TO THE AFFECTED AREA TOPICALL Y ONCE DAILY. APPLY TO PSORIASI S active Not Available Not Available No t Available Vitals None Recorded Social History None recorded. Functional Status None recorded. Mental Status None recorded. Family History Nothing Reported. Medical History Condition Response Depression Y Anxiety Y Migraines Y Asthma Y GERD/Reflux Y High Cholesterol Y Allergies/Hayfever Y Diabetes Y Hypertension Y Gynecological HistoryNo gynecological history recorded. Obstetrics History GPAL:G 0 P 0 0 0 0 Past Encounters Encounter ID Performer Location Encounter Start Date Encounter Closed Date Diagnosis/Indication Diagnosis SNOMED-CT Code Diagnosis ICD10 Code Diagnosis Note [id number] MIGUEL NATH MD [facility] [address] [address] 05/27/2024 10:49:53 05/27/2024 11:53:18 Sensorineural hearing loss of bilateral ears [id number] H90.3 Right Ear:Normal hearing through 2K Hz sloping to a profound SNHL with good speech discrimina tion.Type A tympanogra m.Left Ear:Normal hearing through 2K Hz sloping to a profound SNHL with good speech discrimina tion.Type A tympanogra m. Referred o talgia of left ear [id number] 646547 H92.02 Bilateral tinnitus 33866 30862 102 H93.13 Health Concerns Section Related Observation LastModified by Organization Detai ls LastModified Time None Recorded Concern Status LastModified by Organization Details LastModified Time None Recorded Advance Directives Directive None Recorded Payers Encounter Date Sequence Insurance Name Policy Number Policy Juárez Covered Member ID Juárez Member ID Guarantor Name 05/27/2024 1 [place]: [facility] Farrah Yancey [id number] Farrah Yancey Notes Date Note Type Note Provider Name and Address Organization Details Recorded Time 05/27/2024 text/html 54-year-old femmelchor gagnon with bilateral SNHL presents for evaluation of the ears. She reports bilateral tinnitus, left worse than right, for two months. The tinnitus occurs daily and is intermittent. She feels her hearing has worsened in the left ear. Endorses left post-auricular otalgia. She reports noticable hearing loss for at least 3 years. She used to wear left amplification, but discontinued one year ago because it caused pruritus. The amplification was dispensed by hazardous materials waste technician in [place]. Denies otorrhea or dizziness. Denies prior history of ear infections or ear surgeries. No history of loud noise exposure. No Qtip use. History of migraine. MIGUEL NATH MD [address] [place] [address], [phone], [place] - [facility] 05/28/2024 13:57:56 OBGyn Episode No OBEpisode recorded.
--- OUTSIDE RECORDS SUMMARY | 2024-07-12 15:25 | XMS_ITS | Encounter Summary ---
Author Organization [facility] Address [address] [place] [address] Support Name Relationship Address Phone Kimo Sprague Emergency Contact [address] [place] [address] Care Team Providers Care Estate Manager Name Role Phone Anila Craven MD Primary Care Provider Un available Stacy Parry MD Primary Care Provider Unavail able Victoriano Smith MD Primary Care Provider Unava ilable Name, Matt APPIAH Primary Care Provider UnavailReyna Yañez MD Unavailable [phone] Chris Wallace PA-C Unavailable Latoya Hardy PA-C Unavailable Encounter Details Date Type Department Care Team Description 01/07/2019 Art Critic Report Medical Records [address] [place] [address] [place] [address] [place], [place] [phone] Social History Tobacco Use Types Packs/Day Years [...] on filedocumented in this encounter Care Teams Estate Manager Relationship Specialty Start Date End Date Anila Craven MD PCP - General Internal Medicine 09/03/16 9 Stacy Parry MD PCP - General Internal Medicine 02/21/19 01/20/20 Victoriano Smith MD PCP - General Internal Medicine 01/21/20 07/07/22 Matt Wu MD PCP - General Internal Medicine 07/08/22 Reyna Laboy MD [address] [phone] Specialist Neurosurgery 12/22/23 Chris Wallace PA-C [address] [id number] Specialist Neurosurgery 03/10/24 Latoya Hardy PA-C [address] [address] Specialist Neurosurgery 03/10/24 documented as of this encounter
--- OUTSIDE RECORDS SUMMARY | 2024-07-12 15:25 | XMS_ITS | Encounter Summary ---
Author Organization [employer] Address [address] [facility] [address] [place] [address] Care Team Providers Care Lodging Facilities Attendant Name Role Phone Name, Matt APPIAH Primary Care Provider [phone] Reason for Visit * Reason Onset Date Comments Durable Medical Equipment 04/06/2024 Encounter Details Date Type Department Care Team (Late st Contact Info) Description 04/06/2024 Telephone [facility] [address] [place], [place] [phone] Name, MD Matt [address] [place] [address] Durable Medical Equipment Social History Tobacco Use Types Packs/Day Years [...] housing situation today? I have chiqui ashton 12/18/[address] you li [...] encounter Miscellaneous Notes * Telephone Encounter - Gabrielle Garcia - 04/06/2024 1:02 PM EDT Tc from pt requesting a nebulizer mask. documented in this encounter Plan of Treatment Upcoming Encounters Date Type Department Care Team (Late st Contact Info) Description 08/15/2024 2:30 PM EST Office Visit [facility] [address] [place] [phone] Name, MD Matt [address] [place] [address] documented as of this encounter Visit Diagnoses Not on filedocumented in this encounter Additional Health Concerns Assessment Noted Time PHQ-9 Depression Total Score: 0 09/07/19 24 3:15 PM EDT documented as of this encounter Care Teams Lodging Facilities Attendant Relationship Specialty Start Date End Date Name, MD Matt [address] [place], [place] [phone] PCP - General Family Medicine 02/21/22 Estephanie Tan Die Casting Machine MaintainerMercerizing Range Feeder 11/24/23 documented as of this encounter
--- OUTSIDE RECORDS SUMMARY | 2024-07-12 15:25 | XMS_ITS | Encounter Summary ---
Author Organization [facility] Address [address] [place] [address] Support Name Relationship Address Phone Kimo Sprague Emergency Contact [address] [place] [address] Care Team Providers Care Banking Assistant Name Role Phone Makayla Sam DO Primary Care Pro vider Unavailable Anila Craven MD Primary Care Provider Un available Stacy Parry MD Primary Care Provider Unavail able Victoriano Smith MD Primary Care Provider Unava ilable Name, Matt APPIAH Primary Care Provider UnavailReyna Yañez MD Unavailable [phone] Chris Wallace PA-C Unavailable [phone] Latoya Hardy PA-C Unavailable [phone] Encounter Details Date Type Department Care Team Description 10/18/2014 Release of Information Medical Records [address] [place] [id number] Abstract, Provider Social History Tobacco Use Types [...] on filedocumented in this encounter Care Teams Banking Assistant Relationship Specialty Start Date End Date Makayla Sam DO PCP - General Internal Medicine 10/10/14 09/02/16 Anila Craven MD PCP - General Internal Medicine 09/03/16 9 Stacy Parry MD PCP - General Internal Medicine 02/21/19 01/20/20 Victoriano Smith MD PCP - General Internal Medicine 01/21/20 07/07/22 Bryce, MD Matt PCP - General Internal Medicine 07/08/22 Reyna Laboy MD [address] [phone] Specialist Neurosurgery 12/22/23 Chris Wallace PA-C [address] [address] Specialist Neurosurgery 03/10/24 Latoya Hardy PA-C [address] [address] Specialist Neurosurgery 03/10/24 documented as of this encounter
--- OUTSIDE RECORDS SUMMARY | 2024-07-12 15:25 | XMS_ITS | Encounter Summary ---
Author Organization [employer] Address [address] [place] [address] Care Team Providers Care Charge Manager Name Role Phone Name, Matt APPIAH Primary Care Provider [phone] Reason for Visit * Reason Onset Date Comments Med Refill 03/23/2024 Encounter Details Date Type Department Care Team (Late st Contact Info) Description 03/23/2024 Telephone [facility] [address] [place] [address] Name, MD Matt [address] [place] [address] Med Refill Social History Tobacco Use Types Packs/Day Years [...] encounter Miscellaneous Notes * Telephone Encounter - Cecilia Champagne LPN - 03/23/2024 12:49 PM EDT Medication pended to PCP. * Telephone Encounter - Skylar Pérez - 03/23/2024 12:44 PM EDT Tc from pt requesting a refill for zolpidem (Ambien) 10 MG tablet documented in this encounter Plan of Treatment Upcoming Encounters Date Type Department Care Team (Late st Contact Info) Description 08/15/2024 2:30 PM EST Office Visit [facility] [address] [place] [address] Name, MD Matt [address] [place] [address] documented as of this encounter Visit Diagnoses Not on filedocumented in this encounter Additional Health Concerns Assessment Noted Time PHQ-9 Depression Total Score: 0 09/07/19 24 3:15 PM EDT documented as of this encounter Care Teams Charge Manager Relationship Specialty Start Date End Date NameMatt MD [address] [place] [address] PCP - General Family Medicine 02/21/22 Estephanie Tan Healthcare AnalystAbseiling Instructor 11/24/23 documented as of this encounter
--- OUTSIDE RECORDS SUMMARY | 2024-07-12 15:25 | XMS_ITS | Encounter Summary ---
Author Organization [facility] Address [address] [place] [address] Support Name Relationship Address Phone Kimo Sprague Emergency Contact [address] [place] [address] Care Team Providers Care Area Mechanic Name Role Phone Anila Craven MD Primary Care Provider Un available Stacy Parry MD Primary Care Provider Unavail able Victoriano Smith MD Primary Care Provider Unava ilable Name, Matt APPIAH Primary Care Provider Unavailabl e Reyna Laboy MD Unavailable [phone] Chris Wallace PA-C Unavailable Latoya Hardy PA-C Unavailable Encounter Details Date Type Department Care Team Description 10/23/2016 [facility] Medical Records [address] [place] [address] Abstract, Provider Social History Tobacco Use Types [...] on filedocumented in this encounter Care Teams Area Mechanic Relationship Specialty Start Date End Date Anila Craven MD PCP - General Internal Medicine 09/03/16 9 Stacy Parry MD PCP - General Internal Medicine 02/21/19 01/20/20 Victoriano Smith MD PCP - General Internal Medicine 01/21/20 07/07/22 Matt Wu MD PCP - General Internal Medicine 07/08/22 Reyna Laboy MD [address] [address] Specialist Neurosurgery 12/22/23 Chris Wallace PA-C [address] [address] Specialist Neurosurgery 03/10/24 Latoya Hardy PA-C [address] [address] Specialist Neurosurgery 03/10/24 documented as of this encounter
--- OUTSIDE RECORDS SUMMARY | 2024-07-12 15:25 | XMS_ITS | Encounter Summary ---
Author Organization [employer] Address [address] [facility] [address] [place] [address] Care Team Providers Care Drawing Supervisor Name Role Phone Name, Matt APPIAH Primary Care Provider [phone] Reason for Visit * Reason Onset Date Comments Med Refill 12/23/2023 Encounter Details Date Type Department Care Team (Late st Contact Info) Description 12/23/2023 Telephone [facility] [address] [place] [address] Name, MD Matt [address] [place] [address] Med Refill Social History Tobacco Use Types [...] Telephone Encounter - Cecilia Champagne LPN - 12/23/2023 1:02 PM EDT Medication pended to PCP. * Telephone Encounter - Skylar Pérez - 12/23/2023 11:52 AM EDT Tc from pt requesting a refill for zolpidem (Ambien) 10 MG tablet documented in this encounter Plan of Treatment Upcoming Encounters Date Type Department Care Team (Late st Contact Info) Description 08/15/2024 2:30 PM EST Office Visit [facility] [address] [place] [address] Name, MD Matt [address] [place] [address] documented as of this encounter Visit Diagnoses Not on filedocumented in this encounter Additional Health Concerns Assessment Noted Time PHQ-9 Depression Total Score: 0 09/07/19 24 3:15 PM EDT documented as of this encounter Care Teams Drawing Supervisor Relationship Specialty Start Date End Date NameMatt MD [address] [place] [address] PCP - General Family Medicine 02/21/22 Estephanie Tan Leasing AssistantTechnical Applications Specialist 11/24/23 documented as of this encounter
--- OUTSIDE RECORDS SUMMARY | 2024-07-12 15:25 | XMS_ITS | Encounter Summary ---
Author Organization [facility] Address [address] [place] [address] Support Name Relationship Address Phone Kimo Sprague Emergency Contact [address] [place] [address] Care Team Providers Care Equipment Technician Name Role Phone Anila Craven MD Primary Care Provider Un available Stacy Parry MD Primary Care Provider Unavail able Victoriano Smith MD Primary Care Provider Unava ilable Bryce, Matt APPIAH Primary Care Provider UnavailReyna Yñaez MD Unavailable [phone] Chris Wallace PA-C Unavailable [phone] Latoya Hardy-C Unavailable Reason for Visit * Reason Onset Date Comments Water/Wastewater Project Manager Feedback 08/17/2018 DR LAM Encounter Details Date Type Department Care Team Description 08/17/2018 Telephone Adult [address] [address] Anila Craven MD Water/Wastewater Project Manager Feedback (DR LAM ) Social History Tobacco Use Types Packs/Day Years Used Date Smoking Tobacco: Never Smokeless Tobacco: Never Alcohol Use Standard Drinks/Week Comments No 0 (1 standard drink = 0.6 oz pur e alcohol) Sex Assigned at Date Recorded Not on file documented as of this encounter Miscellaneous Notes * Telephone Encounter - Aviva Mirza M.A. - 08/18/2018 1:30 PM EST Message left for patient to return call. * Telephone Encounter - Anila Craven MD - 08/17/2018 4:59 PM EST Needs visit, new problem, not seen since 2018 * Telephone Encounter - Estephanie Up - 08/17/2018 10:15 AM EST Please review this patients new referral request. The referral has been pended. Please complete thefollowing: If approved> sign order If denied>please give instructions and route to your practice nursing pool. Practice nurse should inform referrals and the patient if denied. * Telephone Encounter - Jenni Shabazz Joo - 08/17/2018 9:53 AM EST What insurance does the patient have today? [place] / Plan: MEDICAID [place] / Product Type:MEDICAID [id number] Effective 03/15/09: [employer] will not retro referral requests over 90 days. If request is for this please instruct patient to call the 800# on their insurance card to appeal. Do not submit a request. Referrals cannot be processed if the insurance is not accurate. If the insurance listed above in red is NO BILLING INFORMATION FOUND FOR THIS ENCOUTNER The patients correct insurance must be obtained and registered in [facility] or their referral can not be processed. Is this a retro request? YES. If yes for what date of service do you need the retro referral? N/A Who is calling to request this referral? THE OFFICE If the caller is not the patient, what is their name? THE OFFICE Ask the patient WHO referred them to this specialty: Not an initial visit; it is for follow up/continuation of care. Patients PCP is DR CRAVEN FIRST and LAST NAME of SPECIALIST PATIENT is seeing: [facility] What specialty is this? 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 NO Is this visit:Initial Visit Address of Specialist:[address] [facility] Phone # of Specialist: [phone] Fax #: (if applicable):[phone] Does patient have an appointment scheduled?: YES Date of appointment- (including a retro-request): 08/26/2018 Is this appointment related to: Not MVA, WC or Surgery related documented in this encounter Plan of Treatment Not on file documented as of this encounter Visit Diagnoses Not on filedocumented in this encounter Care Teams Equipment Technician Relationship Specialty Start Date End Date Anila Craven MD PCP - General Internal Medicine 09/03/16 9 Stacy Parry MD PCP - General Internal Medicine 02/21/19 01/20/20 Victoriano Smith MD PCP - General Internal Medicine 01/21/20 07/07/22 Matt Wu MD PCP - General Internal Medicine 07/08/22 Reyna Laboy MD [address] [address] Specialist Neurosurgery 12/22/23 Chris Wallace PA-C [address] [address] Specialist Neurosurgery 03/10/24 Latoya Hardy PA-C [address] [address] Specialist Neurosurgery 03/10/24 documented as of this encounter
--- OUTSIDE RECORDS SUMMARY | 2024-07-12 15:25 | XMS_ITS | Encounter Summary ---
Author Organization [facility] Address [address] [place] [address] Support Name Relationship Address Phone Kimo Sprague Emergency Contact [address] [place] [address] Care Team Providers Care Dog Or Animal Sitter Name Role Phone Name, Matt APPIAH Primary Care Provider Unavailabl e Reyna Laboy MD Unavailable [phone] Chris Wallace PA-C Unavailable Latoya Hardy PA-C Unavailable Encounter Details Date Type Department Care Team Description 03/03/2024 [facility] Medical [facility] Neurosurgery [place] [address] [id number] Reyna Laboy MD [address] [address] Social History Tobacco Use Types Packs/Day Years [...] on filedocumented in this encounter Care Teams Dog Or Animal Sitter Relationship Specialty Start Date End Date Name, MD Matt PCP - General Internal Medicine 07/08/22 Reyna Laboy MD [address] [address] Specialist Neurosurgery 12/22/23 Chris Wallace PA-C [address] [address] Specialist Neurosurgery 03/10/24 Latoya Hardy PA-C 175 [facility] [address] [place] [address] Specialist Neurosurgery 03/10/24 documented as of this encounter
--- OUTSIDE RECORDS SUMMARY | 2024-07-12 15:25 | XMS_ITS | Clinical Summary ---
Author Organization [facility] Address [address] [place] [address] Phone Care Team Providers Care Carbon Brushes Assembler Name Role Phone Name, Matt APPIAH Primary Care Provider [phone] Allergies Active Allergy Reactions Criticality Noted Date Comments Acetaminophen High 03/01/2024 Other Reaction(s): PALPITATIONS, ITCH Acetaminophen-Codeine High 02/19/2024 Other Reaction(s): FAST HEART RATE Amoxicillin Low 02/19/2024 Other Reaction(s): ITCHY THROAT Atorvastatin Calcium 08/07/2011 tachycardia Bee Pollen 01/01/2023 Other reaction(s): round patches for ecg- skin red Clarithromycin 11/21/2016 Gabapentin 12/25/2014 Nausea/ dizziness Hydrocodone-Acetaminophen 08/07/2011 palpitations Ibuprofen 08/07/2011 GI side effect Levofloxacin High 03/01/2024 Other Reaction(s): PALPITATIONS Morphine 12/25/2014 Nausea/ panic attack Pravastatin Sodium 08/07/2011 Headache, palpitations, SOB Rosuvastatin Calcium 08/07/2011 Myalgia Terbinafine Rash 10/19/2015 Medications Medication Sig Dispensed Refills Start Date End Date Status ciclopirox (LOPROX) 0.77 % cream Apply to big toes and left 3rd toe once daily x 1 month 09/23/2017 Active clobetasoL 0.05 % shampoo Apply 1 Applicator topically every 48 hours. 09/09/2017 Active cholecalciferol (VITAMIN D-3) 50 mcg (2,000 unit) capsule Take 1 Cap by mouth daily. 06/29/2019 Active fluticasone propionate (FLONASE) 50 mcg/actuation nasal spray 2 Sprays by Nasal route daily. 01/20/2020 Active hydroCHLOROthiazid e (HYDRODIURIL) 25 mg tablet Take 1 tablet (25 mg total) by mouth 1 (one) time each day. 12/05/2019 Active omeprazole (PriLOSEC) [address] capsule Take 1 Cap by mouth daily. 12/05/2019 Active loratadine (CLARITIN) 10 mg tablet Take 1 tablet (10 mg total) by mouth 1 (one) time each day. 01/20/2020 Active bismuth subsalicylate 262 mg tablet Take 2 Tabs by mouth 4 times daily as needed for Other (diarrhea). 08/27/2019 Active aspirin 81 mg EC tablet Take 1 tablet (81 mg total) by mouth 1 (one) time each day. 05/05/2019 Active albuterol HFA (PROAIR HFA ; PROVENTIL HFA ; VENTOLIN HFA) 90 mcg/actuation inhaler Inhale 2 Puffs into the lungs every 4 hours as needed for Wheezing or Shortness of Breath. 05/05/2019 Active blood-glucose meter kit For E11.49 to check blood sugar twice per day. Once prior to breakfast and once prior to dinner 09/05/2019 Active blood sugar diagnostic (FreeStyle Lite Strips) test strip USE TO TEST FINGER STICK BLOOD SUGAR 2 TO 3 X DAILY DIRECTED 11/23/2019 Active EASY COMFORT LANCETS MIS Apply 1 Each topically 3 times daily. 11/23/2019 Active isopropyl alcohol-benzocaine 70-6 % pads, medicated USE 3 (THREE) TIMES A DAY 03/15/2018 Active oxyCODONE (ROXICODONE) 5 mg immediate release tablet Si-2 tabs PO Q12h prn severe pain Sent to pharmacy as: oxyCODONE HCl 5 MG Oral Tablet (ROXICODONE) Earliest Fill Date: 03/04/2024 Active baclofen (LIORESAL) 10 mg tablet TAKE 1 TABLET BY MOUTH two (2) times a day 11/06/2023 Active budesonide-formote roL (SYMBICORT) 160-4.5 mcg/actuation inhaler INHALE DANDO DOS STALIN DOS HAYDER AL D A 01/31/2022 Active cetirizine (ZyrTEC) 10 mg tablet Take 1 tablet (10 mg total) by mouth 1 (one) time each day in the morning. 12/31/2023 Active clindamycin (CLEOCIN T) 1 % lotion APLIQUE CAPA BEHZAD EL AREA AFECTADA TODOS LOS HAM 08/08/2022 Active ezetimibe (ZETIA) 10 mg tablet Take 1 tablet (10 mg total) by mouth daily. 11/06/2023 Active fluconazole (DIFLUCAN) 150 mg tablet Take 1 tablet (150 mg total) by mouth. 09/08/2023 Active Advair HFA 230-21 mcg/actuation inhaler INHALE 2 PUFF BY MOUTH EVERY TWELVE HOURS 04/06/2024 Active Procto-Med HC 2.5 % rectal cream APPLY RECTALLY two (2) times a day FOR 2 WEEKS, burns FOR 2 WEEK THEN USE FOR 2 WEEK 10/27/2023 Active ipratropium (ATROVENT) 21 mcg (0.03 %) nasal spray Administer 2 sprays into each nostril every 12 hours. 09/30/2023 Active tiZANidine (ZANAFLEX) 4 mg capsule Take 1 capsule (4 mg total) by mouth. Active esomeprazole (NexIUM) [address] capsule TAKE 1 CAPSULE BY MOUTH two (2) times a day 05/19/2024 Active Synjardy 12.5-500 mg tablet TAKE 1 TABLET BY MOUTH two (2) times a day (WITH BREAKFAST, AND WITH DINNER) 05/20/2024 Active carvediloL (COREG) 6.25 mg tablet TAKE 1 TABLET BY MOUTH two (2) times a day WITH A MEAL Active zolpidem (AMBIEN) 10 mg tablet TAKE 1 TABLET BY MOUTH EVERY NIGHT AT BEDTIME FOR SLEEP 06/22/2024 Active Breo Ellipta 200-25 mcg/dose inhaler Inhale 1 puff by mouth 1 (one) time each day. 05/06/2024 Active ketoconazole (NIZORAL) 2 % shampoo APPLY TO THE AFFECTED AREA 2 X EACH WEEK. apply on scalp. Leave on for 5 minutes then rinse off 03/17/2024 Active clotrimazole (LOTRIMIN) 1 % cream Apply topically 2 (two) times a day. 30 g 3 06/28/2024 02/13/202 5 Active carvediloL (COREG) 3.125 mg tablet Sig - Route: Take 1 Tab by mouth 2 times daily (with meals). - Oral Sent to pharmacy as: Carvedilol 3.125 MG Oral Tablet Notes to Pharmacy: This prescription was filled on 01/20/2018. Any refills authorized will be placed on file. E-Prescribing Status: Receipt confirmed by pharmacy (05/05/2019 ??2:41 PM EST) 5 Discontinued Active Problems Problem Noted Date Diagnosed Date Dysphagia 04/22/2024 Assessment & Plan (04/22/2024 5:04 PM EST): Ms. Yancey has had a definite improvement in her dysphagia since resection of osteophytes and subsequent cervical fusion. She will continue to eat small amounts slowly with water but may notice that need improves further over the next couple of months. She has some neck pain with positioning particularly in extension and I reminded her that she now has 3 disc levels fused so her range of motion is limited and she may just have to support herself on pillows when laying back. Her arm pain and paresthesias in the hand are chronic likely combination of previous radiculopathy and persistent fibromyalgia. Her x-rays from today show that the device is intact though slightly more posterior the disc space and with 1 screw that is a little bit long but this is asymptomatic and does not require revision. We will plan on seeing her back at 1 year from surgery with x-rays to assess the fusion. In terms of her postoperative care, it does appear that she was given 2 doses of fentanyl in the PACU however, 3 hours later she required Haldol in the ASU. There is documentation that she was ambulatory at the time of discharge. Morbid obesity with BMI of 40.0-44.9, adult 07/2023 Chronic low back pain with sciatica 03/16/2024 Class 2 obesity 11/06/2023 Premenstrual symptom 05/23/2019 Kari esophagitis 10/08/2018 Overview (03/16/2024): F/u GI [facility] Helicobacter pylori (H. pylori) infection 2018 Overview (03/16/2024): F/u GI [facility] Seborrheic dermatitis 06/25/2018 Scalp psoriasis 04/13/2018 Hemorrhoids 06/04/2017 Overview (03/16/2024): Internal & external Nonalcoholic steatohepatitis (HURD) 06/04/2017 Insomnia 08/23/2015 Carpal tunnel syndrome 12/25/2014 Overview (03/16/2024): Bilateral - negative EMG at [place] 2014 Migraine 12/25/2014 Old SC (myocardial infarction) 12/25/2014 Overview (03/16/2024): 1998/ Dr Perez Osteoarthritis 12/25/2014 Overview (03/16/2024): Hands, knees, spine Tricuspid regurgitation 12/25/2014 Overview (03/16/2024): Mild tricuspid / mild pulmonic Fibromyalgia 10/16/2014 Psoriasis 10/16/2014 Asthma 08/07/2011 GERD (gastroesophageal reflux disease) 2 Overview (03/16/2024): H/o H.pylori x 3 Hyperlipidemia 08/07/2011 Hypertension 08/07/2011 Overview (03/16/2024): Follows with cardiology Type 2 diabetes mellitus wit h neurological manifestations, controlled 08/07/2011 Encounters Date Type Department Care Team Description 06/28/2024 3:15 PM EST Office Visit Orthopedic Surgery [facility] [address] [facility] [address] [place] [id number] Smooth Sharp, DPM Dermatophytosis of nail (Primary Dx); Tinea pedis of both feet 04/22/2024 1:45 PM EST Office Visit Neurosurgery [facility] [address] [facility] [address] [place] [phone] Reyna Laboy MD Dysphagia, unspecified type (Primary Dx) 04/22/2024 1:36 PM EST - 04/22/2024 11:59 PM EST Hospital Encounter [facility] Xray [address] [facility] [place] [address] Dysphagia, unspecified type Discharge Disposition: Home or Self Care from Last 3 Months Immunizations Name Administration Dates Next Due Hepatitis B (Xgvcple-S-Vmkrv , Recombivax HB-Adult) 19yo and older 03/13/2009,02/16/2008,01/11/2008 Moderna SARS-CoV-2 COVID-19, mRNA, LNP-S, preservative free 01/18/2021,12/21/2020 Td Tetanus diptheria (Tdvax) 7yo and older 03/18 Tdap Tetanus diptheria acell ular pertussis (Boostrix; Adacel) 7yo and older 05/11/2017 Surgical History Surgery Date Site/Laterality Comments APPENDECTOMY PROCEDURE: HISTORICAL APPENDECTOMY COLONOSCOPY 09/24/2015 PROCEDURE: HISTORICAL COLONOSCOPY; COMMENT: no path report received NECK SURGERY 08/25/2011 PROCEDURE: HISTORICAL NECK SURGERY; COMMENT: C5-6, C6-7 ACDF, Dr. Laboy NECK SURGERY 03/01/2024 PROCEDURE: HISTORICAL NECK SURGERY; COMMENT: C4-5 ACDF, Dr. Laboy Medical History Medical History Date Comments Hypertension 08/07/2011 DX:Hypertension Asthma 08/07/2011 DX:Asthma Fibromyalgia DX:Fibromyalgia Psoriasis DX:Psoriasis Migraine DX:Migraine Type 2 diabetes mellitus wit h neurological manifestations, controlled ([facility]/HCC) 08/07/2011 DX:Type 2 diabetes mellitus with neurological manifestations, controlled (HCC) Tricuspid regurgitation 12/25/2014 DX:Tricu spid regurgitation; COMMENT: Mild tricuspid / mild pulmonic Old SC (myocardial infarction) 12/25/2014 D X:Old SC (myocardial infarction); COMMENT: 1998/ Dr Perez Hyperlipidemia 08/07/2011 DX:Hyperlipidemi a; COMMENT: IMO update Allergic rhinitis 06/04/2017 DX:Allergic rh initis GERD (gastroesophageal reflux disease) 08/07/2011 DX:GERD (gastroesophageal reflux disease); COMMENT: H/o H.pylori x 3 Fatty liver 06/04/2017 DX:Fatty liver Osteoarthritis 12/25/2014 DX:Osteoarthriti s; COMMENT: Hands, knees, spine Carpal tunnel syndrome 12/25/2014 DX:Carpal tunnel syndrome; COMMENT: bilateral Insomnia 08/23/2015 DX:Insomnia Hemorrhoids 06/04/2017 DX:Hemorrhoids; COMMENT: Internal & external Kari esophagitis (CMS/HCC) 10/08/2018 DX :Kari esophagitis (HCC); COMMENT: F/u GI [facility] Helicobacter pylori (H. pylo ri) infection 10/08/2018 DX:Helicobacter pylori (H. p ylori) infection; COMMENT: F/u GI [facility] Family History Medical History Relation Name Comments Arthritis Father Diabetes,CAD, H ypertension Heart attack Maternal Grandmother fatal Uterine cancer Maternal Grandmother Arthritis Mother CAD,Hypertensio n,Hyperlipidemia Breast cancer Sister CABG Uncle CAD in 40's Colon cancer Neg Hx Ovarian cancer Neg Hx Pancreatic cancer Neg Hx Prostate cancer Neg Hx Relation Name Status Comments Father Maternal Grandmother Mother Sister Uncle Social History Tobacco Use Types Packs/Day Years Used Date Smoking Tobacco: Never Smokeless Tobacco: Never Alcohol Use Standard Drinks/Week Comments No 0 (1 standard drink = 0.6 oz pur e alcohol) Sex and Gender Information Value Date Recorded Sex Assigned at Not on file Gender Identity Not on file Sexual Orientation Not on file Job Start Date Occupation Industry Not on file Not on file Not on file Obstetrics History Last Filed Vital Signs Vital Sign Reading Time Taken Comments Blood Pressure - - Pulse - - Temperature - - Respiratory Rate - - Oxygen Saturation - - Inhaled Oxygen Concentration - - Weight 97.5 kg (214 lb 15.9 oz) 024 12:52 PM EDT Height 160 cm (5' 3 ) 03/11/2024 12:52 PM EDT Body Mass Index 38.08 03/11/2024 12:52 PM EDT Plan of Treatment Upcoming Encounters Date Type Department Care Team (Late st Contact Info) Description 09/26/2024 2:30 PM EDT Office Visit Orthopedic Surgery - [place] [address] [phone] Smooth Sharp DPM [address] [address] Health Maintenance Due Date Last Done Comments Breast Cancer Screening 1970 Pneumococcal Vaccine: Pediatrics (0 to 5 Years) and At-Risk Patients (6 to 64 Years) (1 of 2 - PCV) 1976 Diabetes: Annual Foot Exam 1980 Diabetes: Annual Retina Eye Exam 1980 Zoster Vaccines (1 of 2) 2020 COVID-19 Vaccine (3 - Modern a risk series) 02/15/2021 01/18/2021, 12/21/2020 Hepatitis C Screening 05/17/2022 Social Influencers of Health Screening 05/17/2022 Diabetes: Annual Urine Albumin-Creatinine Ratio (uACR) 05/27/2022 02/18/2019 Influenza Vaccine (#1) 2024 Cervical Cancer Screening: HPV 05/19/2024 05/19/2019 Depression Screening 09/06/2024 09/07/2023 Diabetes: Blood Sugar Contro l Test (HGBA1C) 09/20/2024 03/22/2024, 08/27/2019 Diabetes: Annual GFR (Glomerular Filtration Rate) 05/31/2025 05/31/2024, 08/27/2019 Hypertension/CHF/CAD Annual BMP Blood Test 05/31/2025 05/31/2024, 08/27/2019 Colorectal Cancer Screening: Colonoscopy 09/23/2025 09/24/2015 DTaP,Tdap,and Td Vaccines (3 - Td or Tdap) 05/11/2027 05/11/2017, 03/18/2007 Cholesterol Screening (Lipid Panel) 06/17/2029 06/17/2024, 09/09/2023, 02/18/2019 Hepatitis B Vaccines Completed 03/13/2009, 02/16/2008, 01/11/2008 HIV Screening Completed 12/21/2023 HIB Vaccines Aged Out No longer eligi ble based on patient's age to complete this topic HPV Vaccines Aged Out No longer eligi ble based on patient's age to complete this topic Hepatitis A Vaccines Aged Out No long er eligible based on patient's age to complete this topic IPV Vaccines Aged Out No longer eligi ble based on patient's age to complete this topic MMR Vaccines Aged Out No longer eligi ble based on patient's age to complete this topic Meningococcal ACWY Vaccine Aged Out N o longer eligible based on patient's age to complete this topic RSV Immunization Patients Under 20 months Aged Out No longer eligible b ased on patient's age to complete this topic Varicella Vaccines Aged Out No longer eligible based on patient's age to complete this topic Procedures Procedure Name Priority Date/Time Associated Diagnosis Comments XR CERVICAL SPINE 4-5 VIEWS Routine 04/22/2024 1:54 PM EST Dysphagia, unspecified type ANNUAL BMP BLOOD TEST Routine 08/27/2019 HEMOGLOBIN A1C Routine 08/27/2019 HPV Routine 05/19/2019 URINE ALBUMIN CREATININE RATIO Routine 02/18/2019 LIPID PANEL Routine 02/18/2019 COLONOSCOPY Routine 09/24/2015 from Last 3 Months or Most Recently Relevant to Health Maintenance Results * XR Cervical Spine 4-5 Views (04/22/2024 1:54 PM EST) Anatomical Region Laterality Modality Spine, C-spine Radiographic Romi ging 04/22/2024 2:13 PM EST Impressions 04/22/2024 2:15 PM EST FINDINGS/IMPRESSION: Anterior discectomy and fusion at C4-5. ??The more inferior screw extends beyond the posterior margin of the C5 vertebral body. ??Hardware is intact. ??Anterior discectomy and fusion from C5 through C7 with intact anterior plate and screw construct. ??There is fusion across the disc spaces from C5 through C7. ??No fracture or prevertebral swelling. ??Multilevel degenerative changes are seen throughout the cervical spine. ??No high-grade bony foraminal stenosis. ??Open-mouth views demonstrate normal C1-2 alignment. -------- FINAL REPORT -------- Dictated By: DIAMOND CARRILLO Dictated Date: 04/22/2024 14:13 ET Assigned Physician: DIAMOND CARRILLO Reviewed and Electronically Signed By: DIAMOND CARRILLO Signed Date: 04/22/2024 14:15 ET Workstation ID: [id number] Transcribed By: Self Edit Transcribed Date: 04/22/2024 14:13 ET Narrative 04/22/2024 2:15 PM EST XR CERVICAL SPINE 4-5 VIEWS INDICATION: ??Cervical spine surgery, pain TECHNIQUE: XR CERVICAL SPINE 4-5 VIEWS COMPARISON: No priors available. Procedure Note Diamond Carrillo MD - 04/22/2024 XR CERVICAL SPINE 4-5 VIEWS INDICATION: Cervical spine surgery, pain TECHNIQUE: XR CERVICAL SPINE 4-5 VIEWS COMPARISON: No priors available. IMPRESSION: FINDINGS/IMPRESSION: Anterior discectomy and fusion at C4-5. The moreinferior screw extends beyond the posterior margin of the C5 vertebralbody. Hardware is intact. Anterior discectomy and fusion from C5 throughC7 with intact anterior plate and screw construct. There is fusion acrossthe disc spaces from C5 through C7. No fracture or prevertebral swelling.Multilevel degenerative changes are seen throughout the cervical spine.No high-grade bony foraminal stenosis. Open-mouth views demonstratenormal C1-2 alignment. -------- FINAL REPORT -------- Dictated By: DIAMOND CARRILLO Dictated Date: 04/22/2024 14:13 ET Assigned Physician: DIAMOND CARRILLO Reviewed and Electronically Signed By: DIAMOND CARRILLO Signed Date: 04/22/2024 14:15 ET Workstation ID: [id number] Transcribed By: Self Edit Transcribed Date: 04/22/2024 14:13 ET Reyna Laboy MD IMG XR PROCEDURES * Annual BMP Blood Test (08/27/2019) [facility] Annual BMP Blood Test abstracted Historical Provider MD WALLACE PERRY E * (ABNORMAL) Hemoglobin A1c (08/27/2019) [facility] Hemoglobin A1C 6.6(A) 6.5 % Blood Venous blood specimen / Unknown Historical Provider LAB BLOOD ORDERAB LES * Cervical Cancer Screening: HPV (05/19/2019) [facility] Cervical Cancer Screening: HPV negative, abstracted Historical Provider MD WALLACE PERRY * Urine Albumin Creatinine Ratio (02/18/2019) [facility] Urine Albumin Creatinine Ratio abstracted Historical Provider MD WALLACE PERRY E * (ABNORMAL) Lipid panel (02/18/2019) LDL/HDL Ratio 7(A) 0 - 4 Triglycerides 443(A) 0 - 150 mg/dL Cholesterol 185 0 - 200 mg/dL HDL 27(A) 40 mg/dL LDL Cholesterol 70 0 - 100 mg/dL Blood Venous blood specimen / Unknown Historical Provider LAB BLOOD ORDERAB LES * Hm Colonoscopy (09/24/2015) Colonoscopy no interpretation , abstracted Anatomical Region Laterality Modality Other Historical Provider MD WALLACE Colin from Last 3 Months or Most Recently Relevant to Health Maintenance Care Teams Carbon Brushes Assembler Relationship Specialty Start Date End Date Name, MD Matt [address], [place] PCP - General 07/08/22
--- OUTSIDE RECORDS SUMMARY | 2024-07-12 15:25 | XMS_ITS | Encounter Summary ---
Author Organization [facility] Address [address] [place] [address] Support Name Relationship Address Phone Kimo Sprague Emergency Contact [address] [place] [address] Care Team Providers Care Can Filling Room Sweeper Name Role Phone Anila Craven MD Primary Care Provider Un available Stacy Parry MD Primary Care Provider Unavail able Victoriano Smith MD Primary Care Provider Unava ilable Matt Wu MD Primary Care Provider Unavailabl e Reyna Laboy MD Unavailable [phone] Chris WallaceC Unavailable [phone] Latoya Hardy PA-C Unavailable [phone] Encounter Details Date Type Department Care Team Description 11/20/2016 Airline Counter Agent Report Medical Records [address] [place] [address] Rj Nevarez MD Social History Tobacco Use Types Packs/Day Years Used Date Smoking Tobacco: Never Alcohol Use Standard Drinks/Week Comments No 0 (1 standard drink = 0.6 oz pur e alcohol) Sex Assigned at Date Recorded Not on file documented as of this encounter Plan of Treatment Not on file documented as of this encounter Visit Diagnoses Not on filedocumented in this encounter Care Teams Can Filling Room Sweeper Relationship Specialty Start Date End Date Anila Craven MD PCP - General Internal Medicine 09/03/16 9 Stacy Parry MD PCP - General Internal Medicine 02/21/19 01/20/20 Victoriano Smith MD PCP - General Internal Medicine 01/21/20 07/07/22 Matt Wu MD PCP - General Internal Medicine 07/08/22 Reyna Laboy MD [address] [address] Specialist Neurosurgery 12/22/23 Chris Wallace PA-C [address] [address] Specialist Neurosurgery 03/10/24 Latoya Hardy PA-C [address] [address] Specialist Neurosurgery 03/10/24 documented as of this encounter
--- OUTSIDE RECORDS SUMMARY | 2024-07-12 15:25 | XMS_ITS | Encounter Summary ---
Author Organization [facility] Address [address] [place] [address] Support Name Relationship Address Phone Kimo Sprague Emergency Contact [address] [place] [address] Care Team Providers Care Security Orderly Name Role Phone Anila Craven MD Primary Care Provider Un available Stacy Parry MD Primary Care Provider Unavail able Victoriano Smith MD Primary Care Provider Unava ilable Name, Matt APPIAH Primary Care Provider Unavailabl e Reyna Laboy MD Unavailable [phone] Chris Wallace PA-C Unavailable Latoya Hardy PA-C Unavailable Encounter Details Date Type Department Care Team Description 11/25/2016 PNO Controlled Substance Contract Medical Records [address] [place] [id number] Abstract, Provider Social History Tobacco Use Types [...] on filedocumented in this encounter Care Teams Security Orderly Relationship Specialty Start Date End Date Anila Craven MD PCP - General Internal Medicine 09/03/16 9 Stacy Parry MD PCP - General Internal Medicine 02/21/19 01/20/20 Victoriano Smith MD PCP - General Internal Medicine 01/21/20 07/07/22 Matt Wu MD PCP - General Internal Medicine 07/08/22 Reyna Laboy MD [address] [address] Specialist Neurosurgery 12/22/23 Chris Wallace PA-C [address] [address] Specialist Neurosurgery 03/10/24 Latoya Hardy PA-C [address] [address] Specialist Neurosurgery 03/10/24 documented as of this encounter
--- OUTSIDE RECORDS SUMMARY | 2024-07-12 15:25 | XMS_ITS | Encounter Summary ---
Author Organization [facility] Address [address] [place] [address] Support Name Relationship Address Phone Kimo Sprague Emergency Contact [address] [place] [address] Care Team Providers Care High School Academic Coach Name Role Phone Anila Craven MD Primary Care Provider Un available Stacy Parry MD Primary Care Provider Unavail able Victoriano Smith MD Primary Care Provider Unava ilable Matt Wu MD Primary Care Provider Unavailabl e Reyna Laboy MD Unavailable [phone] Chris Wallace PA-C Unavailable Latoya Hardy PA-C Unavailable [phone] Encounter Details Date Type Department Care Team Description 04/29/2017 Identification Technician Report Medical Records [address] [place] [address] Rylee Nunez PA-C Social History Tobacco Use Types Packs/Day Years Used Date Smoking Tobacco: Never Alcohol Use Standard Drinks/Week Comments No 0 (1 standard drink = 0.6 oz pur e alcohol) Sex Assigned at Date Recorded Not on file documented as of this encounter Plan of Treatment Not on file documented as of this encounter Visit Diagnoses Not on filedocumented in this encounter Care Teams High School Academic Coach Relationship Specialty Start Date End Date Anila Craven MD PCP - General Internal Medicine 09/03/16 9 Stacy Parry MD PCP - General Internal Medicine 02/21/19 01/20/20 Victoriano Smith MD PCP - General Internal Medicine 01/21/20 07/07/22 Matt Wu MD PCP - General Internal Medicine 07/08/22 Reyna Laboy MD [address] [address] Specialist Neurosurgery 12/22/23 Chris Wallace PA-C [address] [address] Specialist Neurosurgery 03/10/24 Latoya Hardy PA-C [address] [address] Specialist Neurosurgery 03/10/24 documented as of this encounter
--- OUTSIDE RECORDS SUMMARY | 2024-07-12 15:25 | XMS_ITS | Encounter Summary ---
Author Organization [facility] Address [address] [place] [address] Support Name Relationship Address Phone Kimo Sprague Emergency Contact [address] [place] [address] Care Team Providers Care First Officer And Flight Instructor Name Role Phone Name, Matt APPIAH Primary Care Provider Unavailabl e Reyna Laboy MD Unavailable [phone] Chris Wallace PA-C Unavailable Latoya Hardy PA-C Unavailable Encounter Details Date Type Department Care Team Description 12/23/2023 SCAN [facility] Medical [facility] Neurosurgery [place] [address] [id number] Reyna Laboy MD [address] [address] Social History Tobacco Use Types Packs/Day Years [...] on filedocumented in this encounter Care Teams First Officer And Flight Instructor Relationship Specialty Start Date End Date Name, MD Matt PCP - General Internal Medicine 07/08/22 Reyna Laboy MD [address] [address] Specialist Neurosurgery 12/22/23 Chris Wallace PA-C [address] [address] Specialist Neurosurgery 03/10/24 Latoya Hardy PA-C 175 [facility] [address] [place] [address] Specialist Neurosurgery 03/10/24 documented as of this encounter
--- OUTSIDE RECORDS SUMMARY | 2024-07-12 15:25 | XMS_ITS | Encounter Summary ---
Author Organization [facility] Address [address] [place] [address] Support Name Relationship Address Phone Kimo Sprague Emergency Contact [address] [place] [address] Care Team Providers Care Administrative Volunteer Name Role Phone Stacy Parry MD Primary Care Provider Unavail able Victoriano Smith MD Primary Care Provider Unava ilable Name, Matt APPIAH Primary Care Provider UnavailReyna Yañez MD Unavailable [phone] Chris Wallace PA-C Unavailable Latoya Hardy PA-C Unavailable [phone] Reason for Visit * Reason Onset Date Comments refill request 04/25/2019 Encounter Details Date Type Department Care Team Description 04/25/2019 Refill Adult Medicine [address] [address] Stacy Parry MD refill request Social History Tobacco Use Types Packs/Day Years Used Date Smoking Tobacco: Never Smokeless Tobacco: Never Alcohol Use Standard Drinks/Week Comments No 0 (1 standard drink = 0.6 oz pur e alcohol) Sex Assigned at Date Recorded Not on file documented as of this encounter Miscellaneous Notes * Telephone Encounter - Kirstin Lanier R.N. - 04/26/2019 12:20 PM EST [phone] (home) Pt to see dr /pcp 05/05 at 2:30 to discuss Ambien contract * Telephone Encounter - Reyna Monahan M.A. - 04/26/2019 7:46 AM EST Pt not on contract, pt has appt with new PCP 06/29/2019, Dr. Parry Please triage for sooner appt * Telephone Encounter - Karen Saunders M.A. - 04/25/2019 10:34 AM EST Not contracted last refill 02/16/[address] Craven. Pt has new pcp appt on 06/29/19 Will you fill? [facility]- 01/24/19 * Telephone Encounter - Vee Ryan - 04/25/2019 10:05 AM EST Patient would like script to be: E-PRESCRIBED/FAXED TO PHARMACY WHEN WAS THE PATIENT'S LAST APPOINTMENT IN ADULT MEDICINE? 02/21/19 WHEN WAS THE LAST TIME THE PATIENT SAW THEIR PCP? Same as above Does patient have an upcoming appointment? Yes 06/29/19 (THE MEDICATION REQUESTED IS ON THE MED LIST ABOVE) All of the medications requested were on the CURRENT MEDS list Did you check the Pharmacy information above?: YES Patient wants: 30 -day supply Is this a mail order prescription request ? NO If the refill is from a FAXED refill request what is the RX # listed on the fax? N/A Patients current insurance carrier is: Payor: [employer] / Plan: [employer] [facility] / Product Type: MEDICAID RISK documented in this encounter Plan of Treatment Not on file documented as of this encounter Visit Diagnoses Diagnosis Hospital discharge follow-up Other follow-up examination documented in this encounter Care Teams Administrative Volunteer Relationship Specialty Start Date End Date Stacy Parry MD PCP - General Internal Medicine 02/21/19 01/20/20 Victoriano Smith MD PCP - General Internal Medicine 01/21/20 07/07/22 Matt Wu MD PCP - General Internal Medicine 07/08/22 Reyna Laboy MD [address] [address] Specialist Neurosurgery 12/22/23 Chris Wallace PA-C [address] [address] Specialist Neurosurgery 03/10/24 Latoya Hardy PA-C [address] [address] Specialist Neurosurgery 03/10/24 documented as of this encounter
--- OUTSIDE RECORDS SUMMARY | 2024-07-12 15:25 | XMS_ITS | Clinical Summary ---
Author Organization [facility] Address [address] [place] [address] Support Name Relationship Address Phone Kimo Sprague Emergency Contact [address] [place] [address] Care Team Providers Care Rock Loader Name Role Phone Name, Matt APPIAH Primary Care Provider Reyna Woo MD Unavailable [phone] Chris Wallace PA-C Unavailable [phone] Latoya Hardy PA-C Unavailable Allergies Active Allergy Reactions Severity Noted Date Comments Clarithromycin 11/21/2016 Rosuvastatin Calcium 08/07/2011 Myalgia Gabapentin 12/25/2014 Nausea/ dizziness Atorvastatin Calcium 08/07/2011 tachycardia Morphine 12/25/2014 Nausea/ panic attack Ibuprofen Micronized 08/07/2011 GI side effect Pravastatin Sodium 08/07/2011 Headache, palpitations, SOB Terbinafine Rash/Dermatitis 10/19/2015 Hydrocodone-Acetaminophen 08/07/2011 palpitations Medications Medication Sig Dispensed Refills Start Date End Date Status Clobetasol Propionate 0.05 % Shampoo Apply 1 Applicator topically every 48 hours. 1 Bottle 1 09/09/2017 Active ciclopirox (LOPROX) 0.77 % creamIndications:Onyc homycosis,Nail avulsion of toe, sequela Apply to big toes and left 3rd toe once daily x 1 month 60 g 1 09/23/2017 Active Alcohol Swabs (ALCOHOL PADS) 70 % Pads USE 3 (THREE) TIMES A DAY 100 Each 2 03/15/2018 Active carvedilol (COREG) 3.125 MG tablet Take 1 Tab by mouth 2 times daily (with meals). 60 Tab 3 05/05/2019 Active aspirin 81 MG EC tablet Take 1 Tab by mouth daily. 30 Tab 3 05/05/2019 Active ALBUTEROL SULFATE 108 (90 Base) MCG/ACT Aero Soln Inhale 2 Puffs into the lungs every 4 hours as needed for Wheezing or Shortness of Breath. 1 Inhaler 3 05/05/2019 Active Cholecalciferol (D3 SUPER STRENGTH) 2000 units Cap Take 1 Cap by mouth daily. 30 Cap 3 06/29/2019 Active Bismuth Subsalicylate (PEPTO-BISMOL) 262 MG Tab Take 2 Tabs by mouth 4 times daily as needed for Other (diarrhea). 160 Tab 0 08/27/2019 Active glucose monitoring kit (FREESTYLE) monitoring kitIndications:Type 2 diabetes mellitus with neurological manifestations, controlled ([facility]) For E11.49 to check blood sugar twice per day. Once prior to breakfast and once prior to dinner 1 Kit 0 09/05/2019 Active Glucose Blood (FREESTYLE LITE) Strip USE TO TEST FINGER STICK BLOOD SUGAR 2 TO 3 X DAILY DIRECTED 300 Strip 1 11/23/2019 Active EASY COMFORT LANCETS Mis Apply 1 Each topically 3 times daily. 300 Each 1 11/23/2019 Active hydrochlorothiazide (HYDRODIURIL) 25 MG tablet Take 1 Tab by mouth daily. 30 Tab 4 12/05/2019 Active omeprazole (PRILOSEC) 20 MG capsule Take 1 Cap by mouth daily. 30 Cap 4 12/05/2019 Active loratadine (CLARITIN) 10 MG tabletIndications:Max illary sinusitis, unspecified chronicity,Allergic rhinitis, unspecified seasonality, unspecified trigger Take 1 Tab by mouth daily. 30 Tab 11 01/20/2020 Active fluticasone 50 MCG/ACT nasal sprayIndications:Maxi llary sinusitis, unspecified chronicity,Allergic rhinitis, unspecified seasonality, unspecified trigger 2 Sprays by Nasal route daily. 16 g 0 01/20/2020 Active cyclobenzaprine (FLEXERIL) 5 MG tablet Take 1 Tablet by mouth 3 times daily as needed for Muscle spasms for up to 10 days. 30 Tablet 0 03/11/2024 Active oxycodone (ROXICODONE) 5 MG immediate release tabletIndications:Dys phagia, unspecified type 1 tab PO Q6 hr prn severe pain 40 Tablet 0 04/08/2024 Active Active Problems Problem Noted Date Dysphagia 12/22/2023 Last Assessment & Plan: Patient is 10 days s/p C4-5 ACDF, states she notes the pressure sensation she used to get in her throat preop is gone. She describes some of the typical posterior neck pain radiating out to the shoulders, lump in the throat sensation, sometimes food feels like it gets stuck and she has to swallow water to get it down. She is using oxycodone 1-2 tabs every 4 hours. No issues with wound drainage, fevers. Ms. Yancey is doing well postop, sees some improvement in her preop dysphagia/throat pressure. Patient would like to try muscle relaxers for her posterior neck pain/stiffness radiating to the shoulders. She has a follow-up appointment with Dr. Laboy in 6 weeks with C-spine x-rays. Her and her voiced some concerns about her postop experience, she had some dizziness and vomiting, felt she was sent home too early. They had concerns that she was given fentanyl twice, they showed me a picture of paperwork in PACU. I discussed this with Dr. Laboy and she is aware. However patient is doing well now, denies any nausea or dizziness. She is eating well. We talked about weaning down on her use of oxycodone. All questions answered. Chronic low back pain with sciatica 02/2024 Last Assessment & Plan: Ms. Yancey was last seen in our office in 2020 to discuss chronic and lumbar pain particular to her right side and extending down the right leg. She describes feeling that the leg goes numb with walking and going up stairs, feeling that her legs lose strength and will give out . She describes feeling that her legs are tired. This is worse than before with the pain becoming stronger now rated at a 7/10. At our last discussion, the imaging did not support a role for surgery. At this juncture, we are going to concentrate on her other issues. Morbid obesity with BMI of 40.0-44.9, ad ult 06/29/2019 Premenstrual symptom 05/23/2019 Kari esophagitis 10/08/2018 Overview: F/u [facility] Helicobacter pylori (H. pylori) infectio n 10/08/2018 Overview: F/u [facility] Nonalcoholic steatohepatitis (HURD) 05/16 Hemorrhoids 06/04/2017 Overview: Internal & external Insomnia 08/23/2015 Osteoarthritis 12/25/2014 Overview: Hands, knees, spine Carpal tunnel syndrome 12/25/2014 Overview: Bilateral - negative EMG at [facility] 2014 Migraine 12/25/2014 Old [facility] (myocardial infarction) 5 Overview: 1998/ Dr Perez Tricuspid regurgitation 12/25/2014 Overview: Mild tricuspid / mild pulmonic Fibromyalgia 10/16/2014 Psoriasis 10/16/2014 Hypertension 08/07/2011 Overview: Follows with cardiology Hyperlipidemia 08/07/2011 Type 2 diabetes mellitus with neurologic al manifestations, controlled 08/07/2011 Asthma 08/07/2011 GERD (gastroesophageal reflux disease) 0 08/07/2011 Overview: H/o H.pylori x 3 Resolved Problems Problem Noted Date Resolved Date Pelvic pain 05/23/2019 05/27/2019 Last Assessment & Plan: Given history of previous ablation and recent worsening of dysmenorrhea, will obtain US to ensure no hematometra. Allergic rhinitis 06/04/2017 05/27/2019 Tricuspid regurgitation 12/25/2014 02/27/20 15 Overview: Mild tricuspid / mild pulmonic PVC's (premature ventricular contractions) 12/2502/26/2015 Morbid obesity 08/07/2011 06/04/2017 Gastritis 08/07/2011 06/04/2017 Prediabetes 11/08/2015 Immunizations Name Administration Dates Next Due COVID-19 (Moderna) 01/18/2021,12/21/2020 Hepatitis B (Generic) 03/13/2009,02/16/2008,12/14 Td, Adsorbed, Preservative F ree, Adult Use, Lf Unspecified 03/18/2007 Tdap 05/11/2017 Family History Medical History Relation Name Comments Arthritis Father Diabetes,CAD, H ypertension [facility] Maternal Grandmother fatal Uterine Cancer Maternal Grandmother Arthritis Mother CAD,Hypertensio n,Hyperlipidemia CA Breast Sister CABG Uncle CAD in 40's CA Colon Negative Hx CA Ovarian Negative Hx Cancer of the Pancreas Negative Hx Cancer of the Prostate Negative Hx Relation Name Status Comments Father Maternal Grandmother Mother Sister Uncle Social History Tobacco Use Types Packs/Day Years Used Date Smoking Tobacco: Never Smokeless Tobacco: Never Tobacco Cessation:Counseling Given: Not Answered Alcohol Use Standard Drinks/Week Comments No 0 (1 standard drink = 0.6 oz pur e alcohol) Sex Assigned at Date Recorded Not on file Last Filed Vital Signs Vital Sign Reading Time Taken Comments Blood Pressure 138/96 01/20/2020 1:05 PM EDT Pulse 80 01/20/2020 1:05 PM EDT Temperature 37.2 ??C (98.9 ??F) 01/20/2020 1:05 PM ED T Respiratory Rate 18 01/20/2020 1:05 PM EDT Oxygen Saturation 98% 01/20/2020 1:05 PM EDT Inhaled Oxygen Concentration - - Weight 97.5 kg (214 lb 15.9 oz) 024 12:52 PM EDT Height 160 cm (5' 3 ) 03/11/2024 12:52 PM EDT Body Mass Index 38.08 03/11/2024 12:52 PM EDT Plan of Treatment Health Maintenance Due Date Last Done Comments HEPATITIS C SCREENING 1988 DIABETES: ANNUAL EYE EXAM 05/26/20182016, 05/24/2015 (External Completion), 05/24/2015, Additional history exists DIABETES: BLOOD SUGAR CONTRO L TEST (HGBA1C) 11/27/2019 08/27/2019, 06/29/2019, 06/29/2019, Additional history exists DIABETES/HEART DISEASE: NICKIE AL CHOLESTEROL (LDL) 02/19/2020 02/18/2019, 01/06/2018, 11/19/2016, Additional history exists DIABETES: ANNUAL URINE PROTE IN TEST (MICROALBUMIN) 02/19/2020 02/18/2019, 11/19/2016, 11/05/2015, Additional history exists SHINGLES VACCINE (1 of 2) 2020 MAMMOGRAM 03/29/2020 03/29/2019, 10/0 08/2018, 02/09/2017, Additional history exists DIABETES: ANNUAL FOOT EXAM 06/29/202006/29 (Completed), 06/29/2019, 09/09/2017 (Completed), Additional history exists BASELINE HEALTH EXAM 40-64 06/29/202106/29, 06/29/2019 (Completed) CERVICAL CANCER SCREENING 05/19/20222018, 2016 (External Completion of test per patient (Patient reports normal results)) Covid-19 Vaccine (2022-07 4 season) 2024 01/18/2021, 12/21/2020 INFLUENZA (#1) 2024 05/05/2019 (Refu sed), 05/11/2017 (Refused), 07/07/2016 (Refused) BMI CHECK/ADVISE 06/15/2024 01/19/2020, 02/2020, 08/27/2019, Additional history exists DEPRESSION SCREENING/FOLLOWUP 06/15/2024, 12/13/2019, 10/17/2019, Additional history exists SOCIAL NEEDS SCREENING 06/15/2024 0 (Completed), 05/05/2019 (Completed) COLON CANCER SCREENING 09/23/2025 09/24/2015 DTAP/TDAP/TD (2 - Td or Tdap) 05/11/2027, 05/11/2017, 03/18/2007 PNEUMOCOCCAL VACCINE FOR HIG H RISK PATIENTS (#2) 2035 05/11/2017 (Refused) Care Teams Rock Loader Relationship Specialty Start Date End Date Name, MD Matt PCP - General Internal Medicine 07/08/22 Reyna Laboy MD [address] [address] Specialist Neurosurgery 12/22/23 Chris Wallace PA-C [address] [address] Specialist Neurosurgery 03/10/24 Latoya Hardy PA-C [address] [address] Specialist Neurosurgery 03/10/24
--- OUTSIDE RECORDS SUMMARY | 2024-07-12 15:25 | XMS_ITS | Encounter Summary ---
Author Organization [facility] Address [address] [place] [address] Support Name Relationship Address Phone Kimo Sprague Emergency Contact [address] [place] [address] Care Team Providers Care Customer Account Executive Name Role Phone Makayla Sam DO Primary Care Pro vider Unavailable Anila Craven MD Primary Care Provider Un available Stacy Parry MD Primary Care Provider Unavail able Victoriano Smith MD Primary Care Provider Unava ilable Name, Matt APPIAH Primary Care Provider UnavailReyna Yañez MD Unavailable [phone] Chris Wallace PA-C Unavailable Latoya Hardy PA-C Unavailable [phone] Encounter Details Date Type Department Care Team Description 12/20/2015 Bale Opener Report Medical Records [address] [place] [address] Nazia Rodriges MD Social History Tobacco Use Types Packs/Day Years Used Date Smoking Tobacco: Never Alcohol Use Standard Drinks/Week Comments No 0 (1 standard drink = 0.6 oz pur e alcohol) Sex Assigned at Date Recorded Not on file documented as of this encounter Plan of Treatment Not on file documented as of this encounter Visit Diagnoses Not on filedocumented in this encounter Care Teams Customer Account Executive Relationship Specialty Start Date End Date Makayla Sam DO PCP - General Internal Medicine 10/10/14 09/02/16 Anila Craven MD PCP - General Internal Medicine 09/03/16 9 Stacy Parry MD PCP - General Internal Medicine 02/21/19 01/20/20 Victoriano Smith MD PCP - General Internal Medicine 01/21/20 07/07/22 Matt Wu MD PCP - General Internal Medicine 07/08/22 Reyna Laboy MD [address] [address] Specialist Neurosurgery 12/22/23 Chris Wallace PA-C [address] [address] Specialist Neurosurgery 03/10/24 Latoya Hardy PA-C [address] [address] Specialist Neurosurgery 03/10/24 documented as of this encounter
--- OUTSIDE RECORDS SUMMARY | 2024-07-12 15:25 | XMS_ITS | Encounter Summary ---
Author Organization [facility] Address [address] [place] [address] Support Name Relationship Address Phone Kimo Sprague Emergency Contact [address] [place] [address] Care Team Providers Care Foiling Machine Adjuster Name Role Phone Makayla Sam DO Primary Care Pro vider Unavailable Anila Craven MD Primary Care Provider Un available Stacy Parry MD Primary Care Provider Unavail able Victoriano Smith MD Primary Care Provider Unava ilable Name, Matt APPIAH Primary Care Provider UnavailReyna Yañez MD Unavailable [phone] Chris Wallace PA-C Unavailable Latoya Hardy PA-C Unavailable Encounter Details Date Type Department Care Team Description 12/07/2015 Seat Pack Inspector Report Medical Records [address] [place] [id number] Cecilia Carnes Social History Tobacco Use Types Packs/Day Years Used Date Smoking Tobacco: Never Alcohol Use Standard Drinks/Week Comments No 0 (1 standard drink = 0.6 oz pur e alcohol) Sex Assigned at Date Recorded Not on file documented as of this encounter Plan of Treatment Not on file documented as of this encounter Visit Diagnoses Not on filedocumented in this encounter Care Teams Foiling Machine Adjuster Relationship Specialty Start Date End Date Makayla Sam DO PCP - General Internal Medicine 10/10/14 09/02/16 Anila Craven MD PCP - General Internal Medicine 09/03/16 9 Stacy Parry MD PCP - General Internal Medicine 02/21/19 01/20/20 Victoriano Smith MD PCP - General Internal Medicine 01/21/20 07/07/22 Matt Wu MD PCP - General Internal Medicine 07/08/22 Reyna Laboy MD [address] [address] Specialist Neurosurgery 12/22/23 Chris Wallace PA-C [address] [address] Specialist Neurosurgery 03/10/24 Latoya Hardy PA-C [address] [address] Specialist Neurosurgery 03/10/24 documented as of this encounter
--- OUTSIDE RECORDS SUMMARY | 2024-07-12 15:25 | XMS_ITS | Encounter Summary ---
Author Organization [facility] Address [address] [place] [address] Support Name Relationship Address Phone Kimo Sprague Emergency Contact [address] [place] [address] Care Team Providers Care Diamond Assorter Name Role Phone Anila Craven MD Primary Care Provider Un available Stacy Parry MD Primary Care Provider Unavail able Victoriano Smith MD Primary Care Provider Unava ilable Matt Wu MD Primary Care Provider Unavailabl e Reyna Laboy MD Unavailable [phone] Chris WallaceC Unavailable Latoya Hardy PA-C Unavailable [phone] Encounter Details Date Type Department Care Team Description 11/26/2017 It Quality Analyst Report Medical Records [address] [place] [address] Geetha Noriega E, FISHER QUAHOG Social History Tobacco Use Types Packs/Day Years [...] on filedocumented in this encounter Care Teams Diamond Assorter Relationship Specialty Start Date End Date Anila Craven MD PCP - General Internal Medicine 09/03/16 9 Stacy Parry MD PCP - General Internal Medicine 02/21/19 01/20/20 Victoriano Smith MD PCP - General Internal Medicine 01/21/20 07/07/22 Matt uW MD PCP - General Internal Medicine 07/08/22 Reyna Laboy MD [address] [address] Specialist Neurosurgery 12/22/23 Chris Wallace PA-C [address] [address] Specialist Neurosurgery 03/10/24 Latoya Hardy PA-C [address] [address] Specialist Neurosurgery 03/10/24 documented as of this encounter
--- OUTSIDE RECORDS SUMMARY | 2024-07-12 15:25 | XMS_ITS | Encounter Summary ---
Author Organization [facility] Address [address] [place] [address] Support Name Relationship Address Phone Kimo Sprague Emergency Contact [address] [place] [address] Care Team Providers Care Building Inspection Engineer Name Role Phone Makayla Sam DO Primary Care Pro vider Unavailable Anila Craven MD Primary Care Provider Un available Stacy Parry MD Primary Care Provider Unavail able Victoriano Smith MD Primary Care Provider Unava ilable Name, Matt APPIAH Primary Care Provider UnavailReyna Yañez MD Unavailable [phone] Chris Wallace PA-C Unavailable Latoya Hardy PA-C Unavailable [phone] Encounter Details Date Type Department Care Team Description 05/02/2016 [facility] Medical Records [address] [place] [id number] Abstract, Provider Social History Tobacco Use Types [...] on filedocumented in this encounter Care Teams Building Inspection Engineer Relationship Specialty Start Date End Date Makayla Sam DO PCP - General Internal Medicine 10/10/14 09/02/16 Anila Craven MD PCP - General Internal Medicine 09/03/16 9 Stacy Parry MD PCP - General Internal Medicine 02/21/19 01/20/20 Victoriano Smith MD PCP - General Internal Medicine 01/21/20 07/07/22 Bryce, MD Matt PCP - General Internal Medicine 07/08/22 Reyna Laboy MD [address] [id number] Specialist Neurosurgery 12/22/23 Chris Wallace PA-C [address] [address] Specialist Neurosurgery 03/10/24 Latoya Hardy PA-C [address] [address] Specialist Neurosurgery 03/10/24 documented as of this encounter
--- OUTSIDE RECORDS SUMMARY | 2024-07-12 15:25 | XMS_ITS | Encounter Summary ---
Author Organization [facility] Address [address] [place] [address] Support Name Relationship Address Phone Kimo Sprague Emergency Contact [address] [place] [address] Care Team Providers Care Stone Unloader Name Role Phone Anila Craven MD Primary Care Provider Un available Stacy Parry MD Primary Care Provider Unavail able Victoriano Smith MD Primary Care Provider Unava ilable Matt Wu MD Primary Care Provider Unavailabl e Reyna Laboy MD Unavailable [phone] Chris WallaceC Unavailable [phone] Latoya Hardy PA-C Unavailable Encounter Details Date Type Department Care Team Description 08/28/2017 Telephone [facility] - [address] [address] Anila Craven MD Social History Tobacco Use Types Packs/Day Years Used Date Smoking Tobacco: Never Alcohol Use Standard Drinks/Week Comments No 0 (1 standard drink = 0.6 oz pur e alcohol) Sex Assigned at Date Recorded Not on file documented as of this encounter Plan of Treatment Not on file documented as of this encounter Visit Diagnoses Not on filedocumented in this encounter Care Teams Stone Unloader Relationship Specialty Start Date End Date Anila Craven MD PCP - General Internal Medicine 09/03/16 9 Stacy Parry MD PCP - General Internal Medicine 02/21/19 01/20/20 Victoriano Smith MD PCP - General Internal Medicine 01/21/20 07/07/22 Matt Wu MD PCP - General Internal Medicine 07/08/22 Reyna Laboy MD [address] [address] Specialist Neurosurgery 12/22/23 Chris Wallace PA-C [address] [address] Specialist Neurosurgery 03/10/24 Latoya Hardy PA-C [address] [address] Specialist Neurosurgery 03/10/24 documented as of this encounter
--- OUTSIDE RECORDS SUMMARY | 2024-07-12 15:25 | XMS_ITS | Clinical Summary ---
Author Organization [employer] Address [address] [facility] [address] [place] [address] Care Team Providers Care Author Agent Name Role Phone Name, Matt APPIAH Primary Care Provider [phone] Allergies Active Allergy Reactions Criticality Noted Date Comments Atorvastatin 08/07/2011 tachycardia tachycardia Clarithromycin 11/21/2016 Gabapentin 12/25/2014 Nausea/ dizziness Nausea/ dizziness Hydrocodone-Acetaminophen 08/07/2011 Other reaction(s): increased hr palpitations palpitations Other reaction(s): increased hr Ibuprofen Rash Low 08/07/2011 GI side effect GI side effect Morphine 12/25/2014 Other reaction(s): red skin/ panic/ incresed hr Nausea/ panic attack Nausea/ panic attack Other reaction(s): red skin/ panic/ incresed hr Omeprazole 07/27/2012 Pollen Extract 01/01/2023 Other reaction(s): round patches for ecg- skin red Pravastatin 08/07/2011 Other reaction(s): SOB Headache, palpitations, SOB Headache, palpitations, SOB Rosuvastatin 08/07/2011 Other reaction(s): Myalgia Myalgia Myalgia Terbinafine Rash Low 10/19/2015 Other reaction(s): cellulitis, Rash/Dermatitis Other reaction(s): cellulitis hives ??rash hives ??rash Medications * This document contains information received from the source organization and may not represent a complete record from that organization. budesonide-form oterol (Symbicort) 160-4.5 MCG/ACT inhaler INHALE DANDO DOS SOPLIDOS DOS VECES AL D A 02/01/20 22 Active Diclofenac Sodium 1 % gel Apply topically. 2 times every day to the affected area 03/17/20 22 Active dicyclomine (Bentyl) 10 MG capsule TOME YOANNA C PSULA CUATRO VECES AL D A ANTES DE LAS COMIDAS 01/24/20 Active famotidine (Pepcid) 40 MG tablet Take 1 tablet by mouth at bedtime. 01/19/20 22 Active pantoprazole (ProtoNix) 40 MG EC tablet TOME YOANNA TABLETA DOS VECES AL D A 10/26/19 22 Active Blood Glucose Monitoring Suppl (FreeStyle Lite) device Inject under the skin if needed. Use as instructed Active clindamycin (Cleocin T) 1 % lotionIndicatio ns:Scalp psoriasis APLIQUE CAPA BEHZAD EL AREA AFECTADA TODOS LOS HAM 60 mL 3 08/08/19 23 Active olopatadine (Patanol) 0.1 % ophthalmic solution Administer 1 drop into affected eye(s) 2 times daily. 5 mL 2 09/07/19 24 025 Active ipratropium (Atrovent) 0.03 % nasal sprayIndication s:Acute cough,Seasonal allergies Administer 2 sprays into each nostril every 12 (twelve) hours. 30 mL 12 09/30/19 24 025 Active ezetimibe (Zetia) 10 MG tabletIndicatio ns:Type 2 diabetes mellitus with neurological manifestations, controlled (CMS/HCC) Take 1 tablet (10 mg) by mouth Once per day. 30 tablet 11 11/06/19 24 025 Active mometasone (Elocon) 0.1 % ointment Apply topically Once per day. 15 g 12/18/19 24 025 Active fluticasone (Flonase) 50 MCG/ACT nasal sprayIndication s:Acute cough,Seasonal allergies SPRAY TWICE IN EACH NOSTRIL ONCE DAILY IN THE MORNING. shake gently. Before first use, prime pump. After use, clean tip and replace cap 48 g 12/31/19 24 Active cetirizine (ZyrTEC) 10 MG tabletIndicatio ns:Acute cough,Seasonal allergies TAKE 1 TABLET BY MOUTH ONCE DAILY IN THE MORNING 90 tablet 12/31/19 24 Active glucose blood (FREESTYLE LITE) test strip USE TO TEST FINGER STICK BLOOD SUGAR ONCE DAILY 100 strip 11 03/15/20 24 Active albuterol (2.5 MG/3ML) 0.083% nebulizer solution INHALE 1 VIAL VIA NEBULIZER 4 TIMES A DAY NEEDED FOR SHORTNESS OF BREATH OR WHEEZING FOR 30 DAYS 75 mL 11 04/06/20 24 Active hydroCHLOROthia zide (HYDRODiuril) 25 MG tabletIndicatio ns:Hypertension , unspecified type TAKE 1 TABLET BY MOUTH ONCE DAILY 90 tablet 1 04/14/20 24 Active Synjardy 12.5-500 MG TAKE 1 TABLET BY MOUTH two (2) times a day (WITH BREAKFAST, AND WITH DINNER) 180 tablet 3 05/20/20 24 Active aspirin (Aspirin Low Dose) 81 MG EC tabletIndicatio ns:Essential hypertension TAKE 1 TABLET BY MOUTH ONCE DAILY 90 tablet 06/16/19 25 Active carvedilol (Coreg) 6.25 MG tabletIndicatio ns:Essential hypertension TAKE 1 TABLET BY MOUTH two (2) times a day WITH A MEAL 180 tablet 1 06/20/19 25 Active zolpidem (Ambien) 10 MG tabletIndicatio ns:Insomnia, unspecified type TAKE 1 TABLET BY MOUTH EVERY NIGHT AT BEDTIME FOR SLEEP 30 tablet 06/22/19 25 Active carvedilol (Coreg) 6.25 MG tabletIndicatio ns:Essential hypertension TAKE 1 TABLET BY MOUTH two (2) times a day WITH A MEAL 180 tablet 1 03/04/20 23 025 Discontinued Aspirin Low Dose 81 MG EC tabletIndicatio ns:Essential hypertension TAKE 1 TABLET BY MOUTH ONCE DAILY 90 tablet 06/16/19 24 025 Discontinued(R eorder (will not trigger notification to Pharmacy)) zolpidem (Ambien) 10 MG tabletIndicatio ns:Insomnia, unspecified type TAKE 1 TABLET BY MOUTH EVERY NIGHT AT BEDTIME FOR SLEEP 30 tablet 05/20/20 24 025 Discontinued Active Problems Problem Noted Date Diagnosed Date History of cervical spinal surgery 03/22/2024 Overview (03/22/2024): s/p C4-5 ACDF on 03/01/2024 C5-6, C6-7 ACDF with plating on 08/25/[address] Laboy at [facility] Class 2 obesity 11/06/2023 CLARA (generalized anxiety disorder) 10/16/2022 Assessment & Plan (10/27/2022 8:56 AM EDT): Assessment and Plan: Farrah was engaged with active reflective listening and open- ended questions. Assessed symptoms, risks, and social supports with direct questions. Discussed current symptoms intensity and frequency. Emotions were normalized and validated. She identified the relaxation technique discussed as coping mechanisms and her support as protective factors. Provided psychoeducation around anxiety and coping skills and how to change a negative thought with a positive one. Discussed OP therapy and Medication Management and she agreed to referral. She requested referral in [facility]. Provided education around integrated medicine and the options of follow up BE's as needed. Provided contact information should questions or concerns arise. ?? Plan: Farrah will engage in effective coping mechanisms to manage sxs. Referral will be placed for Ind Therapy and Psychiatrist at [facility], per her request. Premenstrual symptom 05/23/2019 Helicobacter pylori gastritis 10/29/2018 Helicobacter pylori (H. 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 Trichilemmal cyst 06/25/2018 Seborrheic dermatitis 06/25/2018 Epidermoid cyst 05/12/2018 Scalp psoriasis 04/13/2018 Hemorrhoids 06/04/2017 Overview (11/06/2023): Internal & external Nonalcoholic steatohepatitis (HURD) 06/04/2017 Insomnia 08/23/2015 Carpal tunnel syndrome 12/25/2014 Overview (01/01/2023): Bilateral - negative EMG at [place] 2014 Osteoarthritis 12/25/2014 Overview (01/01/2023): Hands, knees, spine Tricuspid regurgitation 12/25/2014 Overview (01/01/2023): Mild tricuspid / mild pulmonic Fibromyalgia 10/16/2014 Psoriasis 10/16/2014 Psoriatic arthritis 05/25/2012 Depressive disorder 12/08/2011 Migraine 12/08/2011 Degeneration of intervertebral disc 12/03/2011 Severe obesity 12/03/2011 Asthma 08/07/2011 Hypertension 08/07/2011 Overview (01/01/2023): Follows with cardiology Hyperlipidemia 08/07/2011 Type 2 diabetes mellitus wit h neurological manifestations, controlled 08/07/2011 GERD (gastroesophageal reflux disease) 2 Overview (01/01/2023): F/u GI C H/o H.pylori x 3 Resolved Problems Problem Noted Date Diagnosed Date Resolved Date Foot callus 04/13/2018 07/08/2023 Onychomycosis 03/23/2018 07/08/2023 Old HI (myocardial infarction) 12/25/2014 11/06/2023 Overview (01/01/2023): 1998/ Dr Perez 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 07/08/2023 Other psoriasis and similar disorders 12/03/2011 07/08/2023 Encounters Date Type Department Care Team Description 06/22/2024 Telephone [facility] MEDICINE [address], [place] [phone] Name, MD Matt Med Refill 06/22/2024 Refill [facility] MEDICINE [address], [place] [phone] Name, MD Matt Insomnia, unspecified type 06/18/2024 Refill [facility] MEDICINE [address], [place] [phone] Name, MD Matt Essential hypertension 06/17/2024 Orders Only GENERIC EXTERNAL DATA DEPARTMENT Provider, Generic External Data 06/16/2024 Refill [facility] MEDICINE [address] [place] [phone] NameMatt MD Essential hypertension 05/31/2024 Orders Only GENERIC EXTERNAL DATA DEPARTMENT Provider, Generic External Data 05/27/2024 Orders Only [facility] MEDICINE [address] [place] [phone] Matt Wu MD 05/20/2024 Refill [facility] MEDICINE [address] [place] [phone] Matt Wu MD Insomnia, unspecified type 05/20/2024 Refill [facility] MED[facility]INE [address] [place] [phone] Matt Wu MD Insomnia, unspecified type 05/19/2024 Refill [facility] MED[facility]INE [address] [place] [address] [phone] Matt Wu MD 04/22/2024 Refill [facility] MED[facility]INE [address] [place] [address] [phone] Matt Wu MD Insomnia, unspecified type 04/14/2024 2:20 PM EDT Office Visit [facility] [address] [place] [phone] Juan Win MD Bilateral hearing loss, unspecified hearing loss type (Primary Dx); Right otitis media, unspecified otitis media type; Tinnitus of left ear; Hypertension, unspecified type 04/14/2024 Refill [facility] [address] [place] [phone] Matt Wu MD Hypertension, unspecified type 04/14/2024 Telephone [facility] MEDICINE [address] [place] [phone] Matt Wu MD Nurse Triage from Last 3 Months Immunizations Name Administration Dates Next Due Hep B, adult 03/13/2009,02/16/2008,01/11/2008 Moderna Covid-19 Vaccine 12+ 01/18/2021,12/22/19 21 TD (adult), 2 Lf tetanus tox oid, preservative free, adsorbed 03/18/2007 Tdap 05/11/2017 Social History Tobacco Use Types Packs/Day Years Used Date Smoking Tobacco: Never Smokeless Tobacco: Never Tobacco Cessation:Counseling Given: Not Answered Alcohol Use Standard Drinks/Week Comments Never 0 [...] Orientation Straight 04/14/2022 10 :15 AM EDT Last Filed Vital Signs Vital Sign Reading Time Taken Comments Blood Pressure 163/88 04/14/2024 2:08 PM EDT Pulse 76 04/14/2024 2:08 PM EDT Temperature 35.7 ??C (96.3 ??F) 04/14/2024 2:08 PM ED T Respiratory Rate 18 04/14/2024 2:08 PM EDT Oxygen Saturation 98% 04/14/2024 2:08 PM EDT Inhaled Oxygen Concentration - - Weight 95.6 kg (210 lb 12.8 oz) 03/22/2024 3:08 PM EDT Height 160 cm (5' 3 ) 03/22/2024 3:08 PM EDT Body Mass Index 37.34 03/22/2024 3:08 PM EDT Plan of Treatment Upcoming Encounters Date Type Department Care Team (Late st Contact Info) Description 08/15/2024 2:30 PM EST Office Visit [facility] MEDICINE [address] [place] [address] Name, MD Matt [address] [place] [address] Health Maintenance Due Date Last Done Comments CT Colonography 1970 Colonoscopy 1970 Colorectal Cancer Screening 1970 FIT DNA/Cologuard 1970 FIT 1970 FOBT 1970 Sigmoidoscopy 1970 Pneumococcal Vaccine: Pediatrics (0 to 5 Years) and At-Risk Patients (6 to 64 Years) (1 of 2 - PCV) 1976 Eye Exam 1980 Alcohol/Substance Use Screening 1982 Hepatitis A Vaccines (1 of 2 - Risk 2-dose series) 1989 Zoster Vaccines (1 of 2) 1989 COVID-19 Vaccine (3 - Moderna risk series) 02/15/2021 01/18/2021, 12/21/2020 Influenza Vaccine (#1) 2024 Depression Screening 09/06/2024 09/07/2023, 09/07/19 Diabetes: Urine Protein Screening 09/08/2024 09/09/2023, 07/08/2023, 03/24/2022 Diabetes: Hemoglobin A1C 09/20/2024 024, 07/08/2023, 01/05/2023, Additional history exists SDOH Screening 12/17/2024 12/18/2023 Diabetes: Foot Exam 03/22/2025 03/22/2024, 03/22/2024, 03/22/2024, Additional history exists Tobacco Screening 04/14/2025 04/14/2024 Mammogram 05/27/2025 05/27/2024, 04/16, 05/04/2023, Additional history exists Lipid Panel 06/17/2025 06/17/2024, 09/09/2023 Cervical Cancer Screening 05/17/2026 HPV/Cotest 05/17/2026 05/17/2021 Pap Smear 05/17/2026 05/17/2021 DTaP/Tdap/Td Vaccines (2 - Td or Tdap) 05/11/2027 05/11/2017, 03/18/2007, 03/18/2007 RSV Patients and Patients Aged 60 years or older (1 - 1-dose 75+ series) 2045 Hepatitis B Vaccines Completed 03/13/2009, 02/16/2008, 01/11/2008 Hepatitis C Screening Completed 05/26/2022 HIV Screening Completed 12/21/2023 HIB Vaccines Aged Out No longer eligi ble based on patient's age to complete this topic HPV Vaccines Aged Out No longer eligi ble based on patient's age to complete this topic IPV Vaccines Aged Out No longer eligi ble based on patient's age to complete this topic Meningococcal Vaccine Aged Out No jagdeep joseline eligible based on patient's age to complete this topic RSV under 20 months Aged Out No longe r eligible based on patient's age to complete this topic Rotavirus Vaccines Aged Out No longer eligible based on patient's age to complete this topic Procedures Procedure Name Priority Date/Time Associated Diagnosis Comments LIPID PANEL, STANDARD Routine 06/17/2024 2:09 PM EST HIGH SENSITIVITY TROPONIN I Routine 05/31/2024 7:15 PM EST XR CHEST 1 VIEW Routine 05/31/2024 5:15 PM EST D DIMER HIGH SENSITIVITY Routine 05/31/2024 4:47 PM EST PROTHROMBIN TIME-INR Routine 05/31/2024 4:47 PM EST CBC WITH AUTO DIFFERENTIAL Routine 05/31/2024 4:47 PM EST HIGH SENSITIVITY TROPONIN I Routine 05/31/2024 4:46 PM EST LIPASE Routine 05/31/2024 4:46 PM EST MAGNESIUM Routine 05/31/2024 4:46 PM EST COMPREHENSIVE METABOLIC PANEL Routine 05/31/2024 4:46 PM EST BI MAMMOGRAM SCREENING TOMOSYNTHESIS BILATERAL Routine 05/27/2024 1:45 PM EST POCT GLYCATED HEMOGLOBIN, TOTAL Routine 03/22/2024 3:10 PM EDT Type 2 diabetes mellitus with neurological manifestations, controlled (CMS/HCC) HIV 1/2 ANTIGEN/ANTIBODY, FOURTH GENERATION W/RFL Routine 12/21/2023 12:36 PM EDT Type 2 diabetes mellitus with neurological manifestations, controlled (CMS/HCC) Unexplained night sweats PPD positive ALBUMIN, RANDOM URINE W/CREATININE Routine 09/09/2023 12:24 PM EDT Type 2 diabetes mellitus with neurological manifestations, controlled (CMS/HCC) Primary hypertension HEPATITIS PANEL, GENERAL Routine 05/26/2022 4:23 PM EST HM PAP/HPV Routine 05/17/2021 from Last 3 Months or Most Recently Relevant to Health Maintenance Results * (ABNORMAL) Lipid Panel, Standard (06/17/2024 2:09 PM EST) Triglycerides 211(H) <150 mg/dL [facility] Comment:Desirable Triglyceri de: less than 150 mg/dLBorderline High Triglyceride 150-199 mg/dLHigh Triglyceride: 200-499 mg/dLVery High Triglyceride: greater than or equal to 5OO mg/dL Cholesterol 241(H) <200 mg/dL [facility] Comment:Desirable Cholestero l: less than 200 mg/dLBorderline High Cholesterol: 200-239 mg/dLHigh Cholesterol: greater than 239 mg/dL LDL Cholesterol Calculated 158(H) <100 mg/dL [facility] Comment:Desirable LDL: less than 100 mg/dLNear Optimal/Above Optimal LDL: 110- 129 mg/dLBorderline High LDL: 130-159 mg/dLHigh LDL: 160-189 mg/dLVery High LDL: greater than or equal to 190 mg/dL HDL Cholesterol 41 >40 mg/dL [facility] Comment:Desirable HDL: great er than 40 mg/dL Note: This HDL assay may give artificially low results in patients with liver disease. 06/17/2024 2:09 PM EST 06/17/2024 2:09 PM EST Generic External Data Provider LAB BLOOD ORDERAB LES Final Result Performing Organization Address [facility] Co de Phone Number [facility] [address] [place] [phone] * High Sensitivity Troponin I (05/31/2024 7:15 PM EST) Only the most recent of2 resultswithin the time period is included. TROPONIN I HIGH SENSITIVITY <2.7 <3.5 - 17.0 ng/L [facility] Comment:The Wang high sens itivity Troponin-I results should beused in conjunction with other diagnostic information suchas ECG, clinical observations and information, and patientsymptoms to aid in the diagnosis of HI. 05/31/2024 7:15 PM EST 05/31/2024 7:19 PM EST Generic External Data Provider LAB BLOOD ORDERAB LES Final Result Performing Organization Address [facility] Co de Phone Number [facility] [address] [place] [phone] * XR Chest 1 View (05/31/2024 5:15 PM EST) Anatomical Region Laterality Modality Chest Radiographic Romi ging 05/31/2024 5:15 PM EST Narrative 05/31/2024 7:43 PM EST ? [facility] ?[address] ?[place] [address] ?XRay Report ? Signed ? Patient: Bc,Farrah ?MR#: [id number] ?? 3 ? : 1970 ?Acct:[id number] ? Age/Sex: 54 / F ?ADM Date: 05/31/24 ? Loc: HO.ED ? Attending Dr: ? Ordering Physician: Loretta Boogie MD ?? Date of Service: 05/31/24 ?? Procedure(s): XR chest 1V ?? Accession Number(s): [id number] ? cc: Loretta Boogie MD; Name,Matt APPIAH ? EXAMINATION: ?? XR CHEST ? CLINICAL INFORMATION: ?? Chest pain. ? COMPARISON: ?? Chest radiograph from 03/31/2024. ? TECHNIQUE: ?? AP portable upright view of the chest was obtained. ? FINDINGS: ?? The lungs are well expanded. No evidence of focal consolidation, ?? pleural effusion, pulmonary edema, or pneumothorax. The ?? cardiomediastinal silhouette is within normal limits. No acute osseous ?? abnormalities. Instrumented anterior fusion of the lower cervical spine. ? XR/XR chest 1V ?? IMPRESSION: ?? No radiographically evident acute pulmonary abnormalities. ? Electronically signed by: ??Eloy Jeffery DO ??05/31/2024 07:39 PM EST RP ? Dictated By: ?Juan Jeffery DO ? Signed By: ?<Electronically signed by Juan Jeffery, DO in OV> ? 05/31/24 1939 ? DD/ 1715 ? TD/TT: 05/31/24 1736 ? Soda Jerker: JL ? Procedure Note Donrashida, Image - 05/31/2024 [place] [address] XRay Report Signed Patient: David Yancey#: [id number] 3 : 1970Acct:[id number] Age/Sex: 54 / FADM Date: 05/31/24 Loc: HO.ED Attending Dr: Ordering Physician: Loretta Boogie MD Date of Service: 05/31/24 Procedure(s): XR chest 1V Accession Number(s): [id number] cc: Loretta Boogie MD; Name,Matt APPIAH EXAMINATION: XR CHEST CLINICAL INFORMATION: Chest pain. COMPARISON: Chest radiograph from 03/31/2024. TECHNIQUE: AP portable upright view of the chest was obtained. FINDINGS: The lungs are well expanded. No evidence of focal consolidation, pleural effusion, pulmonary edema, or pneumothorax. The cardiomediastinal silhouette is within normal limits. No acute osseous abnormalities. Instrumented anterior fusion of the lower cervical spine. XR/XR chest 1V IMPRESSION: No radiographically evident acute pulmonary abnormalities. Electronically signed by: Eloy Jeffery DO 05/31/2024 07:39 PM EST Dictated By: Juan Jeffery DO Signed By: <Electronically signed by Juan Jeffery DO in OV> 05/31/24 1939 DD/ 1715 TD/TT: 05/31/24 1736 Soda Jerker: RUT [facility] External Provider IMG XR PROCEDURES Final Result * D Dimer High Sensitivity (05/31/2024 4:47 PM EST) [facility] D Dimer High Sensitivity <150 NG/ML [facility] Comment:D-DIMER HS REFERENCE RANGENote: Our assay reports D-Dimer Units (D- DU).The cut-off value for venous thromboembolic (VTE) disease is230 ng/mL. This value has a very high negative predictivevalue when the patient has a low to moderate clinicalprobability of VTE.The upper limit of normal is 243 ng/mL. 05/31/2024 4:47 PM EST 05/31/2024 4:49 PM EST Generic External Data Provider LAB BLOOD ORDERAB LES Final Result [facility] [address] [place] [phone] * (ABNORMAL) CBC auto differential (05/31/2024 4:47 PM EST) [facility] White Blood Count 11.9(H) 4.8 - 10.8 X10*3/uL [facility] Red Blood Count 5.40 4.20 - 5.50 X10*6/uL [facility] Hemoglobin 14.3 12.0 - 16.0 g/dl [facility] Hematocrit 44.9 37.0 - 47.0 % [facility] Mean Corpuscular Volume 83.1 80.0 - 98.0 fL [facility] Mean Corpuscular Hemoglobin 26.5(L) 27.0 - 33.0 pg [facility] Mean Corpuscular HGB Conc 31.8 31.0 - 35.0 g/dl [facility] Red Cell Distribution Width 14.2 11.0 - 16.0 % [facility] Platelet Count 319 160 - 400 X10*3/uL [facility] Mean Platelet Volume 9.8 9.4 - 12.3 fL [facility] Neutrophils Percent Auto 63.2 45 - 73 % [facility] Imm Gran Pct Auto 0.3 0.0 - 0.4 % [facility] Lymphocytes Percent Auto 26.1 20 - 40 % [facility] Monocytes Percent Auto 8.2 2 - 11 % [facility] Eosinophils Percent Auto 1.6 0 - 4 % [facility] Basophils Percent Auto 0.6 0 - 2 % [facility] NRBC Pct Auto 0.0 0.0 - 0.2 /100WBC [facility] Neutrophils Absolute Auto 7.5 2.0 - 8.3 x10*3/uL [facility] Imm Gran Abs Auto 0.04(H) 0.00 - 0.03 X10*3/uL [facility] Lymphocytes Absolute Auto 3.1 1.2 - 4.9 X10*3/uL [facility] Monocytes Absolute Auto 1.0 0.1 - 1.2 X10*3/uL [facility] Eosinophils Absolute Auto 0.2 0.0 - 0.4 X10*3/uL [facility] Basophils Absolute Auto 0.1 0.0 - 0.2 X10*3/uL [facility] NRBC Abs Auto 0.000 0.0 - 0.012 X10*3/uL [facility] 05/31/2024 4:47 PM EST 05/31/2024 4:49 PM EST us Generic External Data Provider LAB BLOOD ORDERAB LES Final Result Performing Organization Address [facility]/ZIP Co de Phone Number [facility] [address] [place] [address] [phone] * Prothrombin Time-INR (05/31/2024 4:47 PM EST) Prothrombin Time 12.0 10.9 - 12.4 SEC [facility] INTERNATIONAL NORM RATIO 1.0 0.9 - 1.1 [facility] Comment:INTERNATIONAL NORMAL IZED RATIO (INR) REFERENCE RANGES Reference RangeFor patients not on anticoagulant therapy: 0.9 - 1.1INR ranges for oral anticoagulanttherapy:For prevention and treatment of venous thrombosis and pulmonary embolism: 2.0 - 3.0For acute myocardial infarction with aspirin therapy: 2.0 - 3.0For acute myocardial infarction without aspirin therapy: 3.0 - 4.0For patients with mechanical prosthetic heart valves: 2.5 - 3.5 05/31/2024 4:47 PM EST 05/31/2024 4:49 PM EST us Generic External Data Provider LAB BLOOD ORDERAB LES Final Result Performing Organization Address [facility] Co de Phone Number [facility] [address] [place] [phone] * Magnesium (05/31/2024 4:46 PM EST) Magnesium 2.0 1.6 - 2.6 mg/dL [facility] 05/31/2024 4:46 PM EST 05/31/2024 4:49 PM EST Generic External Data Provider LAB BLOOD ORDERAB LES Final Result Performing Organization Address [facility] Co de Phone Number [facility] [address] [place] [phone] * Lipase (05/31/2024 4:46 PM EST) Lipase 31 8 - 78 U/L [facility] 05/31/2024 4:46 PM EST 05/31/2024 4:49 PM EST us Generic External Data Provider LAB BLOOD ORDERAB LES Final Result [facility] [address] [place] [phone] * (ABNORMAL) Comprehensive Metabolic Panel (05/31/2024 4:46 PM EST) Sodium 142 135 - 145 mmol/L [facility] Potassium 3.8 3.3 - 5.1 mmol/L [facility] Chloride 106 96 - 108 mmol/L [facility] Carbon Dioxide 28 22 - 29 mmol/L [facility] Anion Gap 12 12 - 20 [facility] Urea Nitrogen (BUN) 15 9 - 16 mg/dL [facility] Creatinine, Serum 0.82 0.5 - 1.4 mg/dL [facility] Creatinine Clr Calc Pharmacy 86.5 [facility] Comment:Provided height and weight: 160.02 cm,96.162 kg.eGFR (calculated from the MDRD study equation) and eCrCl(calculated from the Cockcroft-Gault equation) are based ondifferent parameters and may not yield comparable results.If eCrCl result is absurd, please check patient'sheight/weight. Estimated Glomerular Filt Rate >60 [facility] Comment:Chronic Kidney Disea se: Estimated GFR < 60 mL/min/1.92q5Fcllko Kidney Disease: Estimated GFR < 15 mL/min/1.73m2 Glucose 116(H) 60 - 115 mg/dL [facility] Calcium 9.4 8.4 - 10.2 mg/dL [facility] Bilirubin, Total 0.9 0.0 - 1.0 mg/dL [facility] Aspartate Amino Transferase 38(H) 5 - 31 U/L [facility] Alanine Aminotransferase 38(H) 0 - 31 U/L [facility] Total Protein 7.9 6.5 - 8.0 g/dL [facility] Albumin Level 4.3 3.5 - 5.0 g/dL [facility] Alkaline Phosphatase 130(H) 39 - 117 U/L [facility] 05/31/2024 4:46 PM EST 05/31/2024 4:49 PM EST us Generic External Data Provider LAB BLOOD ORDERAB LES Final Result [facility] [address] [place] [address] [phone] * BI Mammogram Screening Tomosynthesis Bilateral (05/27/2024 1:45 PM EST) Anatomical Region Laterality Modality Breast Bilateral Mammography 05/27/2024 1:45 PM EST Narrative 06/06/2024 4:29 PM EST ? [facility] [place] ? [address] ?[place] [address] ? Mammography Report ? Signed ? Patient: Bc,Farrah ?MR#: [id number] ?? 3 ? : 1970 ?Acct:[id number] ? Age/Sex: 54 / F ?ADM Date: 12/13/24 ? Loc: HO.MAMMO ? Attending Dr: Matt Name MD ? Ordering Physician: Name,Matt MD ?Results: 1Negative ? Date of Service: 12/13/24 ?Follow Up: 1 Year From Orig ?? inal Mammogram ? Procedure(s): MM tomosynthesis screening BI ?? Accession Number(s): [id number] ? cc: Name,Matt APPIAH ? EXAMINATION: ?? MM SCREENING DIGITAL BREAST TOMOSYNTHESIS, BILATERAL ? CLINICAL INFORMATION: ? Screening. Asymptomatic. ? COMPARISON: ?? Mammography: Comparison is made with available priors ? TECHNIQUE: ?? Digital breast mammography with tomosynthesis is performed in both the ?? craniocaudal and mediolateral oblique views along with computer-aided ?? detection (CAD). ? FINDINGS: ?? There are scattered areas of fibroglandular density (ACR BI-RADS breast ?? composition Category b). ? There are no significant masses, abnormal calcifications, or other ?? abnormalities. ? MM/MM tomosynthesis screening BI ?? IMPRESSION: ?? No mammographic evidence of malignancy. ? ASSESSMENT: ? BI-RADS BI-RADS 1 - Negative ? RECOMMENDATION: ?? Routine annual mammography screening. ? 1 year F/U ? This examination should not preclude the clinical evaluation of a ?? suspicious palpable abnormality. ? This patient's information was entered into a reminder system with a ?? target due date for their next mammogram. ? Electronically signed by: ??Jenni Woods DO ??06/06/2024 04:26 PM EST ? Dictated By: ?Peggy,Jenni DO ? Signed By: ?<Electronically signed by Jenni Woods, DO in OV> ? 06/06/24 1626 ? DD/ 1345 ? TD/TT: 05/27/24 1408 ? Soda Jerker: ? Procedure Note Lenore Stokes - 06/06/2024 [facility] [address] [place], [place] [address] Mammography Report Signed Patient: David Yancey#: [id number] 3 : 1970Acct:[id number] Age/Sex: 54 / FADM Date: 05/27/24 Loc: HO.MAMMO Attending Dr: Matt Wu MD Ordering Physician: Matt Wu MDResults: 1Negative Date of Service: 05/27/24Follow Up: 1 Year From Orig ina Mammogram Procedure(s): MM tomosynthesis screening BI Accession Number(s): [id number] cc: Matt Wu MD EXAMINATION: MM SCREENING DIGITAL BREAST TOMOSYNTHESIS, BILATERAL CLINICAL INFORMATION: Screening. Asymptomatic. COMPARISON: Mammography: Comparison is made with available priors TECHNIQUE: Digital breast mammography with tomosynthesis is performed in both the craniocaudal and mediolateral oblique views along with computer-aided detection (CAD). FINDINGS: There are scattered areas of fibroglandular density (ACR BI-RADS breast composition Category b). There are no significant masses, abnormal calcifications, or other abnormalities. MM/MM tomosynthesis screening BI IMPRESSION: No mammographic evidence of malignancy. ASSESSMENT: BI-RADS BI-RADS 1 - Negative RECOMMENDATION: Routine annual mammography screening. 1 year F/U This examination should not preclude the clinical evaluation of a suspicious palpable abnormality. This patient's information was entered into a reminder system with a target due date for their next mammogram. Electronically signed by: Jenni Woods DO 06/06/2024 04:26 PM EST Dictated By: Jenni Woods DO Signed By: <Electronically signed by Jenni Woods DO in OV> 06/06/24 1626 DD/ 1345 TD/TT: 05/27/24 1408 Soda Jerker: us Matt Wu MD IMG BI PROCEDURES Final Result * (ABNORMAL) POCT HGB A1C (03/22/2024 3:10 PM EDT) Hemoglobin A1C 6.6(A) 4.0 - 6.0 % QC Media Lot # [id number] Lot# Expiration Date [id number] Blood 03/22/2024 3:10 PM EDT us Matt Wu MD POINT OF CARE TEST ENTER/EDIT OR DERABLES Final Result * HIV-1/2 Antigen and Antibodies, Fourth Generation, with Reflexes (12/21/2023 12:36 PM EDT) HIV AB/AG Nonreactive Nonreactive [facility] Comment:HIV-1 p24 Ag and/or HIV-1/HIV-2 Ab not detected.A test result that is nonreactive does not exclude thepossibility of exposure to or infection with HIV-1 and/orHIV-2. Nonreactive results in this assay for individualswith prior exposure to HIV-1 and/or HIV-2 may be due toantigen and antibody levels that are below the limit ofdetection of this assay.The [employer] HIV Ag/Ab Combo assay result andsupplemental assay results should be interpreted inconjunction with the patient's clinical presentation,history and other laboratory results. If the results areinconsistent with clinical evidence, additional testing issuggested to confirm the result. Blood Venous blood specimen / Unknown 12/21/2023 12:36 PM EDT 12/21/2023 12:36 PM EDT us Matt Wu MD LAB BLOOD ORDERABLES Final Resul t [facility] [address] [place] [phone] * Albumin, Random Urine W/Creatinine (09/09/2023 12:24 PM EDT) Creatinine, Urine 120.92 mg/dL [facility] Microalbumin Urine 6.0 mg/L [facility] Microalbum Creatinine Ratio Ur 4.9 <30 ug/mg cr [facility] Comment:Albumin/Creatinine R atio Reference Ranges: Normal: < 30 ug/mg creatinine Microalbuminuria: 30 - 300 ug/mg creatinineClinical Albuminuria: > 300 ug/mg creatinine Urine (Urine, Random) 09/09/2023 12:24 PM EDT 09/09/2023 2:10 PM EDT Matt Wu MD LAB URINE ORDERABLES Final Resul t Performing Organization Address [facility] Co de Phone Number [facility] [address] [place] [phone] * Hepatitis Panel, General (05/26/2022 4:23 PM EST) Hepatitis A IgM Nonreactive Nonreactive [facility] Comment:IgM antibodies to TORRES V not detected; does not exclude earlyacute or recovered HAV infection. ~Hepatitis B Surface Antibody NONREACTIVE Nonreactive [facility] Comment:Nonreactive: < 8.00 mIU/mL Hepatitis B Core Antibody Nonreactive Nonreactive [facility] Hepatitis C Antibody Nonreactive Nonreactive [facility] Comment:Antibodies to HCV no t detected; does not exclude early acuteHCV infection. Hepatitis B Surface Antigen Negative Negative [facility] 05/26/2022 4:23 PM EST 05/26/2022 4:23 PM EST [facility] External Provider LAB BLO OD ORDERABLES Final Result Performing Organization Address [facility] Co de Phone Number [facility] [address] [place] [phone] * Hm Pap Smear (05/17/2021) Pap Negative for intraephithelial lesion or malignancy Negative for intraephithelial lesion or malignancy, Other HPV Not Detected Undetected, Indeterminate, Quantitative, Not Detected Historical Provider HEALTH MAINTENANCE Final Result from Last 3 Months or Most Recently Relevant to Health Maintenance Insurance [facility] C3 Care Teams Author Agent Relationship Specialty Start Date End Date Name, MD Matt [address] [place] [phone] PCP - General Family Medicine 02/21/22 Estephanie Tan Ceo NaBit Sharpener Operator 11/24/23
--- OUTSIDE RECORDS SUMMARY | 2024-07-12 15:25 | XMS_ITS | Encounter Summary ---
Author Organization [employer] Address [address] [facility] 7t [place] [address] Care Team Providers Care Fee Clerk Name Role Phone Name, Matt APPIAH Primary Care Provider [phone] Reason for Visit * Reason Onset Date Comments Med Refill 01/21/2024 Encounter Details Date Type Department Care Team (Late st Contact Info) Description 01/21/2024 Telephone [facility] [address] [place] [address] Name, MD Matt [address] [place] [address] Med Refill Social History Tobacco Use Types [...] encounter Miscellaneous Notes * Telephone Encounter - Magdy Borden - 01/21/2024 1:40 PM EDT TC from pt requesting medication refill. Medications needing refill: zolpidem (Ambien) 10 MG tablet To be sent to: [facility] - [place], [place] - [phone] - [place] - [phone] documented in this encounter Plan of Treatment Upcoming Encounters Date Type Department Care Team (Late st Contact Info) Description 08/15/2024 2:30 PM EST Office Visit [facility] [address] [place] [address] Name, MD Matt [address] [place] [address] documented as of this encounter Visit Diagnoses Not on filedocumented in this encounter Additional Health Concerns Assessment Noted Time PHQ-9 Depression Total Score: 0 09/07/19 3:15 PM EDT documented as of this encounter Care Teams Fee Clerk Relationship Specialty Start Date End Date Name, MD Matt [address] [place] [address] [phone] PCP - General Family Medicine 02/21/22 Estephanie Tan Strategic Planning DirectorBasin Finish Operator Tig Welder 11/24/23 documented as of this encounter
--- OUTSIDE RECORDS SUMMARY | 2024-07-12 15:25 | XMS_ITS | Encounter Summary ---
Author Organization [facility] Address [address] [place] [address] Support Name Relationship Address Phone Kimo Sprague Emergency Contact [address] [place] [address] Care Team Providers Care Right Of Way Manager Name Role Phone Makayla Sam DO Primary Care Pro vider Unavailable Anila Craven MD Primary Care Provider Un available Stacy Parry MD Primary Care Provider Unavail able Victoriano Smith MD Primary Care Provider Unava ilable Bryce, Matt APPIAH Primary Care Provider Unavailabl Reyna León MD Unavailable [phone] Chris Wallace PA-C Unavailable Latoya Hardy PA-C Unavailable [phone] Encounter Details Date Type Department Care Team Description 02/11/2016 Nanoscience Technician Report Medical Records [address] [place] [address] Cecilia Mcgregor, RD, LDN 175 [facility] [address] [place] [address] Social History Tobacco Use Types Packs/Day Years Used Date Smoking Tobacco: Never Alcohol Use Standard Drinks/Week Comments No 0 (1 standard drink = 0.6 oz pur e alcohol) Sex Assigned at Date Recorded Not on file documented as of this encounter Plan of Treatment Not on file documented as of this encounter Visit Diagnoses Not on filedocumented in this encounter Care Teams Right Of Way Manager Relationship Specialty Start Date End Date Makayla Sam DO PCP - General Internal Medicine 10/10/14 09/02/16 Anila Craven MD PCP - General Internal Medicine 09/03/16 9 Stacy Parry MD PCP - General Internal Medicine 02/21/19 01/20/20 Victoriano Smith MD PCP - General Internal Medicine 01/21/20 07/07/22 Matt Wu MD PCP - General Internal Medicine 07/08/22 Reyna Laboy MD [address] [address] Specialist Neurosurgery 12/22/23 Chris Wallace PA-C 175 [facility] [address] [place] [address] Specialist Neurosurgery 03/10/24 Latoya Hardy PA-C [address] [address] Specialist Neurosurgery 03/10/24 documented as of this encounter
--- OUTSIDE RECORDS SUMMARY | 2024-07-12 15:25 | XMS_ITS | Encounter Summary ---
Author Organization [facility] Address [address] [place] [address] Support Name Relationship Address Phone Kimo Sprague Emergency Contact [address] [place] [address] Care Team Providers Care Safe And Vault Mechanic Name Role Phone Anila Craven MD Primary Care Provider Un available Stacy Parry MD Primary Care Provider Unavail able Victoriano Smith MD Primary Care Provider Unava ilable Matt Wu MD Primary Care Provider Unavailabl e Reyna Laboy MD Unavailable [phone] Chris WallaceC Unavailable Latoya Hardy PA-C Unavailable [phone] Encounter Details Date Type Department Care Team Description 08/24/2018 Agency Sales Director Report Medical Records [address] [place] [address] Geetha Noriega E, PRODUCTION OR PLANT ENGINEER Social History Tobacco Use Types Packs/Day Years [...] on filedocumented in this encounter Care Teams Safe And Vault Mechanic Relationship Specialty Start Date End Date Anila Craven MD PCP - General Internal Medicine 09/03/16 9 Stacy Parry MD PCP - General Internal Medicine 02/21/19 01/20/20 Victoriano Smith MD PCP - General Internal Medicine 01/21/20 07/07/22 Matt Wu MD PCP - General Internal Medicine 07/08/22 Reyna Laboy MD [address] [address] Specialist Neurosurgery 12/22/23 Chris Wallace PA-C [address] [address] Specialist Neurosurgery 03/10/24 Latoya Hardy PA-C [address] [address] Specialist Neurosurgery 03/10/24 documented as of this encounter
--- OUTSIDE RECORDS SUMMARY | 2024-07-12 15:25 | XMS_ITS | Encounter Summary ---
Author Organization [employer] Address [address] [facility] 7t [place] [address] Care Team Providers Care Binding End Stitcher Name Role Phone Name, Matt APPIAH Primary Care Provider [phone] Reason for Visit * Reason Onset Date Comments Med Refill 06/16/2024 Encounter Details Date Type Department Care Team (Late st Contact Info) Description 06/16/2024 Refill [facility] [address] [place] [address] Name, MD Matt [address] [place] [address] Essential hypertension Social History Tobacco Use Types Packs/Day Years [...] Telephone Encounter - Cecilia Champagne LPN - 06/16/2024 11:57 AM EST Next appointment 08/15/24. * Telephone Encounter - Denis Richter - 06/16/2024 11:53 AM EST TC from pt requesting medication refill. Medications needing refill : Aspirin Low Dose 81 MG EC tablet To be sent to: [facility] [place], [place] - [phone] documented in this encounter Plan of Treatment Upcoming Encounters Date Type Department Care Team (Late st Contact Info) Description 08/15/2024 2:30 PM EST Office Visit [facility] [address] [place] [address] NameMatt MD [address] [place] [address] documented as of this encounter Visit Diagnoses Diagnosis Essential hypertension Unspecified essential hypertension documented in this encounter Additional Health Concerns Assessment Noted Time PHQ-9 Depression Total Score: 0 09/07/19 24 3:15 PM EDT documented as of this encounter Care Teams Binding End Stitcher Relationship Specialty Start Date End Date NameMatt MD [address] [place] [address] [place] [address] PCP - General Family Medicine 02/21/22 Estephanie Tan Swimming Pool AttendantLuggage Repairer 11/24/23 documented as of this encounter
--- OUTSIDE RECORDS SUMMARY | 2024-07-12 15:25 | XMS_ITS | Encounter Summary ---
Author Organization [facility] Address [address] [place] [address] Support Name Relationship Address Phone Kimo Sprague Emergency Contact [address] [facility] [address] [place] [address] Care Team Providers Care Cutter Machine Tender Name Role Phone Anila Craven MD Primary Care Provider Un available Stacy Parry MD Primary Care Provider Unavail able Victoriano Smith MD Primary Care Provider Unava ilable Matt Wu MD Primary Care Provider UnavailReyna Yañez MD Unavailable [phone] Chris Wallace PA-C Unavailable Latoya Hardy PA-C Unavailable Encounter Details Date Type Department Care Team Description 01/19/[address] [address] Anila Craven MD Social History Tobacco Use [...] on filedocumented in this encounter Care Teams Cutter Machine Tender Relationship Specialty Start Date End Date Anila Craven MD PCP - General Internal Medicine 09/03/16 9 Stacy Parry MD PCP - General Internal Medicine 02/21/19 01/20/20 Victoriano Smith MD PCP - General Internal Medicine 01/21/20 07/07/22 Matt Wu MD PCP - General Internal Medicine 07/08/22 Reyna Laboy MD [address] [phone] Specialist Neurosurgery 12/22/23 Chris Wallace PA-C [address] [address] Specialist Neurosurgery 03/10/24 Latoya Hardy PA-C [address] [address] Specialist Neurosurgery 03/10/24 documented as of this encounter
--- OUTSIDE RECORDS SUMMARY | 2024-07-12 15:25 | XMS_ITS | Encounter Summary ---
Author Organization [employer] Address [address] [facility] 7t [place] [address] Care Team Providers Care Sample Coordinator Name Role Phone Name, Matt APPIAH Primary Care Provider [phone] Reason for Visit * Reason Onset Date Comments Med Refill 09/24/2023 Encounter Details Date Type Department Care Team (Late st Contact Info) Description 09/24/2023 Telephone [facility] [address] [place] [address] Name, MD Matt [address] [place] [address] Med Refill Social History Tobacco Use Types [...] Telephone Encounter - Cecilia Champagne LPN - 09/24/2023 1:03 PM EDT Medication pended to PCP. * Telephone Encounter - Salena Gandhi - 09/24/2023 1:00 PM EDT TC from pt requesting medication refill. Medications needing refill : zolpidem (Ambien) 10 MG tablet To be sent to: [facility] - [place], [place] - [phone] - [place] - [phone] documented in this encounter Plan of Treatment Upcoming Encounters Date Type Department Care Team (Late st Contact Info) Description 08/15/2024 2:30 PM EST Office Visit [facility] [address] [place] [address] Name, MD Matt [address] [place] [address] documented as of this encounter Visit Diagnoses Not on filedocumented in this encounter Additional Health Concerns Assessment Noted Time PHQ-9 Depression Total Score: 0 09/07/19 24 3:15 PM EDT documented as of this encounter Care Teams Sample Coordinator Relationship Specialty Start Date End Date Name, MD Matt [address] [place] [address] PCP - General Family Medicine 02/21/22 Estephanie Tan ExtruderInventory Analyst 11/24/23 documented as of this encounter
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
--- OUTSIDE RECORDS SUMMARY | 2024-07-12 15:26 | XMS_ITS | Encounter Summary ---
Author Organization [facility] Address [address] [place] [address] Support Name Relationship Address Phone Kimo Sprague Emergency Contact [address] [facility] [address] [place] [address] Care Team Providers Care Store Deli Manager Name Role Phone Anila Craven MD Primary Care Provider Un available Stacy Parry MD Primary Care Provider Unavail able Victoriano Smith MD Primary Care Provider Unava ilable Name, Matt APPIAH Primary Care Provider Unavailabl e Reyna Laboy MD Unavailable [phone] Chris Wallace PA-C Unavailable Latoya Hardy PA-C Unavailable [phone] Encounter Details Date Type Department Care Team Description 08/19/2017 [facility] Medical Records [address] [place] [address] Abstract, Provider Social History Tobacco Use Types [...] on filedocumented in this encounter Care Teams Store Deli Manager Relationship Specialty Start Date End Date nAila Craven MD PCP - General Internal Medicine 09/03/16 9 Stacy Parry MD PCP - General Internal Medicine 02/21/19 01/20/20 Victoriano Smith MD PCP - General Internal Medicine 01/21/20 07/07/22 Matt Wu MD PCP - General Internal Medicine 07/08/22 Reyna Laboy MD [address] [address] Specialist Neurosurgery 12/22/23 Chris Wallace PA-C [address] [address] Specialist Neurosurgery 03/10/24 Latoya Hardy PA-C [address] [address] Specialist Neurosurgery 03/10/24 documented as of this encounter
--- OUTSIDE RECORDS SUMMARY | 2024-07-12 15:26 | XMS_ITS | Encounter Summary ---
Author Organization [facility] Address [address] [place] [address] Support Name Relationship Address Phone Kimo Sprague Emergency Contact [address] [facility] [address] [place] [address] Care Team Providers Care Instructor Tap Dancing Name Role Phone Stacy Parry MD Primary Care Provider Unavail able Victoriano Smith MD Primary Care Provider Unava ilable Name, Matt APPIAH Primary Care Provider UnavailReyna Yañez MD Unavailable [phone] Chris Wallace PA-C Unavailable Latoya Hardy PA-C Unavailable [phone] Encounter Details Date Type Department Care Team Description 01/02/2020 Telephone OBGYN - [place] [address] [place] [address] Maryse Jimenez MD [address] [place] [address] Social History Tobacco Use Types Packs/Day Years Used Date Smoking Tobacco: Never Smokeless Tobacco: Never Alcohol Use Standard Drinks/Week Comments No 0 (1 standard drink = 0.6 oz pur e alcohol) Sex Assigned at Date Recorded Not on file documented as of this encounter Miscellaneous Notes * Telephone Encounter - Kay Bliss - 01/02/2020 11:00 AM EDT documented in this encounter Plan of Treatment Not on file documented as of this encounter Visit Diagnoses Not on filedocumented in this encounter Care Teams Instructor Tap Dancing Relationship Specialty Start Date End Date Stacy Parry MD PCP - General Internal Medicine 02/21/19 01/20/20 Victoriano Smith MD PCP - General Internal Medicine 01/21/20 07/07/22 Matt Wu MD PCP - General Internal Medicine 07/08/22 Reyna Laboy MD [address] [id number] Specialist Neurosurgery 12/22/23 Chris Wallace PA-C 175 [facility] [address] [place] [address] Specialist Neurosurgery 03/10/24 Latoya Hardy PA-C [address] [address] Specialist Neurosurgery 03/10/24 documented as of this encounter
--- OUTSIDE RECORDS SUMMARY | 2024-07-12 15:26 | XMS_ITS | Encounter Summary ---
Author Organization [facility] Address [address] [place] [address] Support Name Relationship Address Phone Kimo Sprague Emergency Contact [address] [facility] [address] [place] [address] Care Team Providers Care Unified Communications Engineer Name Role Phone Makayla Sam DO Primary Care Pro vider Unavailable Anila Craven MD Primary Care Provider Un available Stacy Parry MD Primary Care Provider Unavail able Victoriano Smith MD Primary Care Provider Unava ilable Name, Matt APPIAH Primary Care Provider UnavailReyna Yañez MD Unavailable [phone] Chris Wallace PA-C Unavailable Latoya Hardy PA-C Unavailable [phone] Encounter Details Date Type Department Care Team Description 06/17/2016 Sheet Metal Duct Worker Supervisor Report Medical Records [address] [place] [address] Estephanie Man FNP Social History Tobacco Use Types Packs/Day Years Used Date Smoking Tobacco: Never Alcohol Use Standard Drinks/Week Comments No 0 (1 standard drink = 0.6 oz pur e alcohol) Sex Assigned at Date Recorded Not on file documented as of this encounter Plan of Treatment Not on file documented as of this encounter Visit Diagnoses Not on filedocumented in this encounter Care Teams Unified Communications Engineer Relationship Specialty Start Date End Date Makayla Sam DO PCP - General Internal Medicine 10/10/14 09/02/16 Anila Craven MD PCP - General Internal Medicine 09/03/16 9 Stacy Parry MD PCP - General Internal Medicine 02/21/19 01/20/20 Victoriano Smith MD PCP - General Internal Medicine 01/21/20 07/07/22 Matt Wu MD PCP - General Internal Medicine 07/08/22 Reyna Laboy MD [address] [address] Specialist Neurosurgery 12/22/23 Chris Wallace PA-C [address] [address] Specialist Neurosurgery 03/10/24 Latoya Hardy PA-C [address] [address] Specialist Neurosurgery 03/10/24 documented as of this encounter
--- OUTSIDE RECORDS SUMMARY | 2024-07-12 15:26 | XMS_ITS | Encounter Summary ---
Author Organization [employer] Address [address] [facility] 7t [place] [address] Care Team Providers Care Merchandising Execution Manager Name Role Phone Name, Matt APPIAH Primary Care Provider [phone] Reason for Visit * Reason Comments Med Refill Encounter Details Date Type Department Care Team ([facility] st Contact Info) Description 06/22/2024 Refill [facility] [address] [place], [place] [phone] Name, MD Matt [address] [place], [place] [phone] Insomnia, unspecified type Social History Tobacco Use Types Packs/Day Years [...] Telephone Encounter - Cecilia Champagne LPN - 06/22/2024 11:14 AM EST PCP VAC. SEWING MACHINE ATTACHMENT TESTER checked 06/22/24. Next appointment 08/15/24. documented in this encounter Plan of Treatment Upcoming Encounters Date Type Department Care Team (Late st Contact Info) Description 08/15/2024 2:30 PM EST Office Visit [facility] [address] [place] [address] Name, MD Matt [address] [place] [address] documented as of this encounter Visit Diagnoses Diagnosis Insomnia, unspecified type documented in this encounter Additional Health Concerns Assessment Noted Time PHQ-9 Depression Total Score: 0 09/07/19 24 3:15 PM EDT documented as of this encounter Care Teams Merchandising Execution Manager Relationship Specialty Start Date End Date Name, MD Matt [address] [place] [address] PCP - General Family Medicine 02/21/22 Estephanie Tan Credit Analysis ManagerDriver'S License Reviewing Officer 11/24/23 documented as of this encounter
--- OUTSIDE RECORDS SUMMARY | 2024-07-12 15:26 | XMS_ITS | Encounter Summary ---
Author Organization [facility] Address [address] [place] [address] Support Name Relationship Address Phone Kimo Sprague Emergency Contact [address] [facility] [place] [address] Care Team Providers Care Supervisor Dry Paste Name Role Phone Stacy Parry MD Primary Care Provider Unavail able Victoriano Smith MD Primary Care Provider Unava ilable Matt Wu MD Primary Care Provider UnavailReyna Yañez MD Unavailable [phone] Chris Wallace PA-C Unavailable [phone] Latoya Hardy PA-C Unavailable [phone] Encounter Details Date Type Department Care Team Description 10/27/2019 A Auxiliary Report Medical Records [address] [place] [address] Fly Vogt MD Social History Tobacco Use Types Packs/Day [...] on filedocumented in this encounter Care Teams Supervisor Dry Paste Relationship Specialty Start Date End Date Stacy Parry MD PCP - General Internal Medicine 02/21/19 01/20/20 Victoriano Smith MD PCP - General Internal Medicine 01/21/20 07/07/22 Matt Wu MD PCP - General Internal Medicine 07/08/22 Reyna Laboy MD 175 [facility] [address] [place], [place] [phone] Specialist Neurosurgery 12/22/23 Chris Wallace PA-C 175 [facility] [address] [place] [id number] Specialist Neurosurgery 03/10/24 Latoya Hardy PA-C [address] [address] Specialist Neurosurgery 03/10/24 documented as of this encounter
--- OUTSIDE RECORDS SUMMARY | 2024-07-12 15:26 | XMS_ITS | Encounter Summary ---
Author Organization [facility] Address [address] [place] [address] Support Name Relationship Address Phone Kimo Sprague Emergency Contact [address] [facility] [address] [place] [address] Care Team Providers Care Bindery Helper Name Role Phone Anila Craven MD Primary Care Provider Un available Stacy Parry MD Primary Care Provider Unavail able Victoriano Smith MD Primary Care Provider Unava ilable Bryce, Matt APPIAH Primary Care Provider UnavailReyna Yañez MD Unavailable [phone] Chris Wallace PA-C Unavailable [phone] Latoya Hardy PA-C Unavailable [phone] Reason for Visit * Reason Onset Date Comments Prior Authorization 10/14/2017 [facility] Encounter Details Date Type Department Care Team Description 10/14/2017 Telephone Adult Medicine [address] [address] Alicia Crabtree PA-C [address] [place] [address] Prior Authorization ([facility]) Social History Tobacco Use Types Packs/Day Years Used Date Smoking Tobacco: Never Smokeless Tobacco: Never Alcohol Use Standard Drinks/Week Comments No 0 (1 standard drink = 0.6 oz pur e alcohol) Sex Assigned at Date Recorded Not on file documented as of this encounter Miscellaneous Notes * Telephone Encounter - Alicia Crabtree PA-C - 10/21/2017 5:05 PM EDT Prevacid sent to pharmacy * Telephone Encounter - Ligia Aguiar M.A. - 10/21/2017 7:58 AM EDT Esomeprazole not covered by insurance.. Must have tried two medications on formulary and failed. Covered formulary meds: must have a poor response, intolerance or contraindication to a 14 day trial of two of the following , one of which must be otc: Lansoprazole Esomeprazole Omeprazole Thank you Please reply back to p [phone] prior authorization pool Jacqueline Aguiar C.M.A. [facility] Prior Authorizations Ext: [id number] * Telephone Encounter - Alicia Crabtree PA-C - 10/19/2017 4:40 PM EDT noted * Telephone Encounter - Alessia Jorge M.A. - 10/19/2017 1:17 PM EDT Esomeprazole 20mg cap, I bid Dx refractory gerd, pt states symptoms come back with 1 a day Tried omeprazole in past Form faxed to [facility] * Telephone Encounter - Smooth Kauffman - 10/19/2017 11:18 AM EDT Patient calling, prior authorization was not received by insurance, please resend * Telephone Encounter - Alessia Jorge M.A. - 10/16/2017 8:30 AM EDT I could get her bid if she fits in any of the following criteria Criteria for twice a day ppi A medical condition that requires a higher dose than 1 per day includes: Refractory gastroesophageal reflux Lee-wilder syndrome Laryngopharnygeal reflux with symtomatic gerd Barretts esophagus Active h.pylori, as part of triple or quadruple therapy If not she should probably go back to gi. Please advise Please reply back to p [id number] Prior Auth pool Alessia Jorge M.A. [facility] Prior Authorizations Ext [id number] * Telephone Encounter - Alessia Jorge M.A. - 10/15/2017 4:21 PM EDT Prior auth form is being faxed to me from [facility] * Telephone Encounter - Dulce Ryan M.A. - 10/15/2017 2:19 PM EDT [phone] (home) Verify with pharmacy insurance changed will not cover this medication needs PA. New insurance listed below * Telephone Encounter - Stephanie Toth - 10/15/2017 11:22 AM EDT Pt would like to speak to Alicia, she states med is not effective at that dose, needs twice a day * Telephone Encounter - Alicia Crabtree PA-C - 10/14/2017 6:24 PM EDT Changed to once daily dose. Previously given by outside GI, she can also follow back with them. * Telephone Encounter - Jing Hodge M.A. - 10/14/2017 1:45 PM EDT Nexium and any PPIs ordered twice daily are not covered by patients insurance. Patient has changed insurance. A medical condition that requires a higher dose than 1 per day includes: Refractory gastroesophageal reflux Lee-Iwlder Syndrome Larynopharngeal reflux with syndrome GERD Active H Pylori as part of triple or quadruple therapy or Barretts Esophagus Please advise. Jing FARLEY dept Ext [phone] * Telephone Encounter - Ann Lizama - 10/14/2017 8:00 AM EDT Pre Authorization for Medication-do not complete and send this encounter unless you have the fax from the pharmacy. Is this a Cover My Meds request: [place] of Medication esomeprazole (NEXIUM) 20 MG capsule Dose of Medication 20 MG capsule How does patient take this med? Take 1 Cap by mouth 2 times daily. What Pharmacy did the fax come from: [facility] fax #: [phone] [employer] Party Information from fax: What Prescription Plan does the patient have? BIN/PCN if applicable: [id number] Cardholder ID:[id number] Person Code: BCAID Relationship Code: 01 Help desk phone: [phone] documented in this encounter Plan of Treatment Not on file documented as of this encounter Visit Diagnoses Not on filedocumented in this encounter Care Teams Bindery Helper Relationship Specialty Start Date End Date Anila Craven MD PCP - General Internal Medicine 09/03/16 9 Stacy Parry MD PCP - General Internal Medicine 02/21/19 01/20/20 Victoriano Smith MD PCP - General Internal Medicine 01/21/20 07/07/22 NameMatt MD PCP - General Internal Medicine 07/08/22 Reyna Laboy MD [address] [address] Specialist Neurosurgery 12/22/23 Chris Wallace PA-C [address] [address] Specialist Neurosurgery 03/10/24 Latoya Hardy PA-C 175 [facility] [address] [place] [address] Specialist Neurosurgery 03/10/24 documented as of this encounter
--- OUTSIDE RECORDS SUMMARY | 2024-07-12 15:26 | XMS_ITS | Encounter Summary ---
Author Organization [employer] [facility] [employer] [facility] Address [address] [facility] 7t [place] [address] Care Team Providers Care Manager Council Name Role Phone Name, Matt APPIAH Primary Care Provider [phone] Reason for Visit * Reason Onset Date Comments triage 09/18/2022 Encounter Details Date Type Department Care Team ([facility] st Contact Info) Description 09/18/2022 Telephone [facility] [address] [place], [place] [phone] Name, MD Matt [address] [place], [place] [phone] triage Social History Tobacco Use Types Packs/Day Years Used Date Smoking Tobacco: Never Smokeless Tobacco: Never Depression Answer Date Recorded Patient Health Questionnaire-2 Score 0 06/04/2022 Comments Unknown Sex and Gender Information Value Date Recorded Sex Assigned at Female 04/14/2022 10:15 AM EDT Legal Sex Female 10:15 AM EDT Gender Identity Female 04/14/2022 10:15 AM EDT Sexual Orientation Straight 04/14/2022 10 :15 AM EDT COVID-19 Exposure Response Date Recorded In the last 10 days, have yo u been in contact with someone who was confirmed or suspected to have Coronavirus/COVID-19? No / Unsure 09/09/2022 2:55 PM EDT documented as of this encounter Miscellaneous Notes * Telephone Encounter - Mabel Contreras RN - 09/19/2022 1:29 PM EDT Returned call to pt regarding message below. Pt advised to continue monitoring BS at home and if BSis starting to increase more than pt baseline to call office prior to next f/u appt with PCP. Pt agrees with plan. * Telephone Encounter - Elvi Benavides RN - 09/18/2022 12:07 PM EDT Pt started on Jardiance on 09/09/22. Per pt on second and third day of taking med. Per pt began having dizziness, chills and TORRES. Per pt checked BS at that time was in 200s. Per pt stopped taking med 2days ago. Per pt BS today fasting was 145mg/dL. Pt has not yet rechecked BS today. Per pt has not had any more episodes since stopping medication. Pt advised of disposition, agrees to have provider review and further advise regarding continuing medication. Will send to team nurses to discuss with covering since Matt Wu MD not in office. Protocol Used: Medication Question Call (Adult) Protocol-Based Disposition: Discuss with PCP and Callback by Nurse within 1 Hour Video visit offer not recorded Positive Triage Question: * Caller has URGENT medicine question about med that PCP or specialist prescribed and triager unable to answer question * All higher-acuity triage questions were negative * Telephone Encounter - Gaurav Onofre - 09/18/2022 11:37 AM EDT Symptom: Medication Reaction Outcome: Schedule an urgent appointment (within 1 hour) or talk to a nurse or provider soon Reason: No high acuity concerns reported by caller The caller accepted this outcome pt speaks thai documented in this encounter Plan of Treatment Upcoming Encounters Date Type Department Care Team (Late st Contact Info) Description 08/15/2024 2:30 PM EST Office Visit [facility] [address] [place] [address] Name, MD Matt [address] [place] [address] documented as of this encounter Visit Diagnoses Not on filedocumented in this encounter Care Teams Manager Council Relationship Specialty Start Date End Date NameMatt MD [address] [place] [address] PCP - General Family Medicine 02/21/22 Estephanie Tan Child Adolescent PsychiatristAuto Clutch Rebuilder 11/24/23 documented as of this encounter
--- OUTSIDE RECORDS SUMMARY | 2024-07-12 15:26 | XMS_ITS | Encounter Summary ---
Author Organization [employer] Address [address] [facility] 7t [place] [address] Care Team Providers Care Collection Systems Administrator Name Role Phone Name, Matt APPIAH Primary Care Provider [phone] Reason for Visit * Reason Onset Date Comments Med Refill 06/22/2024 Encounter Details Date Type Department Care Team (Late st Contact Info) Description 06/22/2024 Telephone [facility] [address] [place] [address] Name, MD Matt [address] [place] [address] Med Refill Social History Tobacco Use Types [...] Encounter - Cecilia Champagne LPN - 06/22/2024 11:15 AM EST Medication pended to provider. * Telephone Encounter - Pierre Paris - 06/22/2024 10:55 AM EST TC from pt requesting medication refill. Medications needing refill : zolpidem (Ambien) 10 MG tablet To be sent to: [facility] - [place], [place] - [id number] - [place] - [address] documented in this encounter Plan of Treatment Upcoming Encounters Date Type Department Care Team (Late st Contact Info) Description 08/15/2024 2:30 PM EST Office Visit [facility] [address] [place] [address] NameMatt MD [address] [place] [address] documented as of this encounter Visit Diagnoses Not on filedocumented in this encounter Additional Health Concerns Assessment Noted Time PHQ-9 Depression Total Score: 0 09/07/19 24 3:15 PM EDT documented as of this encounter Care Teams Collection Systems Administrator Relationship Specialty Start Date End Date NameMatt MD [address] [place] [address] PCP - General Family Medicine 02/21/22 Estephanie Tan Soaker Soda WorkerMortgage Sales Manager 11/24/23 documented as of this encounter
--- OUTSIDE RECORDS SUMMARY | 2024-07-12 15:26 | XMS_ITS | Encounter Summary ---
Author Organization [facility] Address [address] [place] [address] Support Name Relationship Address Phone Kimo Sprague Emergency Contact [address] [facility] [address] [place] [address] Care Team Providers Care Senior Business Consultant Name Role Phone Stacy Parry MD Primary Care Provider Unavail able Victoriano Smith MD Primary Care Provider Unava ilable Name, Matt APPIAH Primary Care Provider UnavailReyna Yañez MD Unavailable [phone] Chris Wallace PA-C Unavailable [phone] Latoya Hardy PA-C Unavailable Reason for Visit * Reason Onset Date Comments refill request 11/22/2019 Encounter Details Date Type Department Care Team Description 11/22/2019 Refill Adult Medicine [address] [address] Stacy Parry MD refill request Social History Tobacco Use Types Packs/Day Years Used Date Smoking Tobacco: Never Smokeless Tobacco: Never Alcohol Use Standard Drinks/Week Comments No 0 (1 standard drink = 0.6 oz pur e alcohol) Sex Assigned at Date Recorded Not on file documented as of this encounter Miscellaneous Notes * Telephone Encounter - Karen Saunders M.A. - 11/23/2019 8:11 AM EDT Lab Results Component Value Date HGBA1C 6.6 08/27/2019 MALBUR < 5.0 02/18/2019 MALBCR < 4.3 02/18/2019 CHOL 185 02/18/2019 LDL 70 02/18/2019 HDL 27 02/18/2019 TRIG 443 02/18/2019 GLU 122 08/27/2019 CREAT 0.90 08/27/2019 * Telephone Encounter - Kamilah Tejeda - 11/22/2019 3:25 PM EDT Patient would like script to be: E-PRESCRIBED/FAXED TO PHARMACY WHEN WAS THE PATIENT'S LAST APPOINTMENT IN ADULT MEDICINE? 10/17/2019 WHEN WAS THE LAST TIME THE PATIENT SAW THEIR PCP? Same as above Does patient have an upcoming appointment? Yes 12/22/2019 (THE MEDICATION REQUESTED IS ON THE MED [...] N/A Patients current insurance carrier is: Payor: [employer] FFS / Plan: [employer] [facility] / Product Type: MEDICAID RISK documented in this encounter Plan of Treatment Not on file documented as of this encounter Visit Diagnoses Not on filedocumented in this encounter Care Teams Senior Business Consultant Relationship Specialty Start Date End Date Stacy Parry MD PCP - General Internal Medicine 02/21/19 01/20/20 Victoriano Smith MD PCP - General Internal Medicine 01/21/20 07/07/22 Name, MD Matt PCP - General Internal Medicine 07/08/22 Reyna Laboy MD [address] [place] [address] [place] [address] Specialist Neurosurgery 12/22/23 Chris Wallace PA-C 175 [facility] [address] [place] [address] Specialist Neurosurgery 03/10/24 Latoya Hardy PA-C [address] [address] Specialist Neurosurgery 03/10/24 documented as of this encounter
--- OUTSIDE RECORDS SUMMARY | 2024-07-12 15:26 | XMS_ITS | Encounter Summary ---
Author Organization [employer] Address [address] [facility] 7t [place] [address] Care Team Providers Care Veneer Taping Machine Offbearer Name Role Phone Name, Matt APPIAH Primary Care Provider [phone] Reason for Visit * Reason Comments Med Refill Encounter Details Date Type Department Care Team ([facility] st Contact Info) Description 06/18/2024 Refill [facility] [address] [place], [place] [phone] Name, MD Matt [address] [place], [place] [phone] Essential hypertension Social History Tobacco Use Types [...] Description 08/15/2024 2:30 PM EST Office Visit [facility] [address] [place] [address] Name, MD Matt [address] [place] [address] documented as of this encounter Visit Diagnoses Diagnosis Essential hypertension Unspecified essential hypertension documented in this encounter Additional Health Concerns Assessment Noted Time PHQ-9 Depression Total Score: 0 09/07/19 24 3:15 PM EDT documented as of this encounter Care Teams Veneer Taping Machine Offbearer Relationship Specialty Start Date End Date NameMatt MD [address] [place] [address] PCP - General Family Medicine 02/21/22 Estephanie Tan Wheel Alignment MechanicVice President Digital Strategist 11/24/23 documented as of this encounter
--- OUTSIDE RECORDS SUMMARY | 2024-07-12 15:26 | XMS_ITS | Encounter Summary ---
Author Organization [facility] Address [address] [place] [address] Care Team Providers Care Counter Helper Name Role Phone Name, Matt APPIAH Primary Care Provider [phone] Reason for Visit * Reason Comments Nail Problem hyperkeratosis Consult * Consultation (Routine) - Closed Specialty Diagnoses / Procedures Referred By Contac t Referred To Contact Diagnoses Nail hypertrophy Procedures AMB referral to podiatry. Note are scanned in old Liquid system. Name, MD Matt [address] [place], [place] Smooth Sharp DPM [address] [address] Referral ID Status Reason Start Date Expiration Date V isits Requested Visits Authorized [id number] Closed Consult and Treat 04/16/2024 04/16/2025 1 1 Encounter Details Date Type Department Care Team ([facility] st Contact Info) Description 06/28/2024 3:15 PM EST Office Visit Orthopedic Surgery - [place] [address] [phone] Smooth Sharp DPM [address] [address] Dermatophytosis of nail (Primary Dx); Tinea pedis of both feet Social History Tobacco Use Types Packs/Day Years [...] file Not on file Not on file documented as of this encounter Ordered Prescriptions Prescription Sig Dispensed Refills Start Date End Da te clotrimazole (LOTRIMIN) 1 % cream Apply topically 2 (two) times a day. 30 g 3 06/28/2024 07/28/2024 documented in this encounter Progress Notes * Smooth Sharp, DPM - 06/28/2024 3:15 PM EST Last PCP visit:Referring MD: Name, MD Matt IDENTIFIER: Bc is a 54 y.o. year old female who presents for consultation. 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 Pt in NAD. CARDIOLOGY: pt denies chest pain, palpitations LUNGS: pt denies shortness of breath MUSCULOSKELETAL: See HPI, otherwise no joint pain or swelling, back pain, or muscle pain. SKIN: see HPI, otherwise no lesions, rash or itching NEURO: No persistent headache, weakness or numbness The remainder of the review of systems is noncontributory PAST MEDICAL HISTORY: Patient Active Problem List Diagnosis Asthma Carpal tunnel syndrome Fibromyalgia Kari esophagitis (CMS/HCC) GERD (gastroesophageal reflux disease) Helicobacter pylori (H. pylori) infection Hemorrhoids Hyperlipidemia Hypertension Insomnia Migraine Nonalcoholic steatohepatitis (HURD) Old CT (myocardial infarction) Osteoarthritis Premenstrual symptom Psoriasis Tricuspid regurgitation Type 2 diabetes mellitus with neurological manifestations, controlled (CMS/HCC) Morbid obesity with BMI of 40.0-44.9, adult (CMS/HCC) Chronic low back pain with sciatica Dysphagia Seborrheic dermatitis Scalp psoriasis Class 2 obesity SOCIAL HISTORY: Social History Tobacco Use Smoking status: Never Smokeless tobacco: Never Substance Use Topics Alcohol use: No ACTIVE MEDICATIONS: Outpatient Medications Marked as Taking for the 06/28/24 encounter (Office Visit) with Smooth Nash DPM Medication Sig Dispense Refill Breo Ellipta 200-25 mcg/dose inhaler Inhale 1 puff by mouth 1 (one) time each day. esomeprazole (NexIUM) [address] capsule TAKE 1 CAPSULE BY MOUTH two (2) times a day ketoconazole (NIZORAL) 2 % shampoo APPLY TO THE AFFECTED AREA 2 X EACH WEEK. apply on scalp. Leave on for 5 minutes then rinse off Synjardy 12.5-500 mg tablet TAKE 1 TABLET BY MOUTH two (2) times a day (WITH BREAKFAST, AND WITH DINNER) zolpidem (AMBIEN) 10 mg tablet TAKE 1 TABLET BY MOUTH EVERY NIGHT AT BEDTIME FOR SLEEP ALLERGIES: Allergies Allergen Reactions Acetaminophen Other Reaction(s): PALPITATIONS, ITCH Acetaminophen-Codeine Other Reaction(s): FAST HEART RATE Levofloxacin Other Reaction(s): PALPITATIONS Atorvastatin Calcium tachycardia Bee Pollen Other reaction(s): round patches for ecg- skin red Clarithromycin Gabapentin Nausea/ dizziness Hydrocodone-Acetaminophen palpitations Ibuprofen GI side effect Morphine Nausea/ panic attack Pravastatin Sodium Headache, palpitations, SOB Rosuvastatin Calcium Myalgia Terbinafine Rash Amoxicillin Other Reaction(s): ITCHY THROAT PHYSICAL EXAM: Visit Vitals Smoking Status Never PODIATRIC EXAMINATION: GENERAL: Patient appears well nourished, with NAD. VASCULAR: Dorsalis pedis pulses are 2/4 bilaterally and Posterior tibial pulses are 2/4 bilaterally. Capillary filling time within normal limits the digits. No pallor on elevation or rubor on dependency. Positive hair growth. No varicosities. Denies rest pain or claudication pain. NEUROLOGICAL: Sharp/dull sensation intact, protective sensation intact 10/10 with 5.07 semmes emani bilaterally, vibratory sensation with tuning fork intact to the tibial tuberosity. ORTHOPEDIC: Good muscle strength 5/5 of all flexors and extensors. Dorsi flexion of ankle ,10 degrees, plantar flexion WNL. No muscle atrophy. DERMATOLOGICAL:. Toenails: Left Toenail(s) 1-5: Crumbling upon debridement, subungual debris, discoloration, dystrophy, elongation, mycotic appearance, onychomycosis, pain and thickening. Right Toenail(s) 1-5: Crumbling upon debridement, subungual debris, discoloration, dystrophy, elongation, mycotic appearance, onychomycosis, pain and thickening. Annular scaling bilateral feet moccasin distribution Skin thinning texture shiny appearance diffuse hyperpigmentation bilaterally pedal hair decreased BIOMECHANICS: Ankle ROM WNL, STJ ROM wnl, MTJ ROM wnl, 1st MPJ ROM wnl. IMAGING: IMPRESSION: 1. Dermatophytosis of nail 2. Tinea pedis of both feet PLAN: Pt was seen and examined, history reviewed. Medications reviewed patient is already on ciclopirox soaps creams Clotrimazole prescribed Hibiclens dispensed from clinic to be used in the shower Alternative oral medication insoles were discussed and reviewed patient is not interested in pursuing oral therapy after her response to Lamisil Follow-up in 3 months Smooth Sharp DPM documented in this encounter Plan of Treatment Upcoming Encounters Date Type Department Care Team (Late st Contact Info) Description 09/26/2024 2:30 PM EDT Office Visit Orthopedic Surgery - [place] [address] [phone] Smooth Sharp DPM [address] [phone] documented as of this encounter Visit Diagnoses Diagnosis Dermatophytosis of nail- Primary Tinea pedis of both feet documented in this encounter Discontinued Medications Medication Sig Discontinue Reason Start Date End Da te carvediloL (COREG) 3.125 mg tablet Sig - Route: Take 1 Tab by mouth 2 times daily (with meals). - Oral Sent to pharmacy as: Carvedilol 3.125 MG Oral Tablet Notes to Pharmacy: This prescription was filled on 01/20/2018. Any refills authorized will be placed on file. E-Prescribing Status: Receipt confirmed by pharmacy (05/05/2019 ??2:41 PM EST) 06/28/2024 documented as of this encounter Historical Medications * This list may reflect changes made after this encounter. Medication Sig Dispensed Refills Start Date End Date ketoconazole (NIZORAL) 2 % shampoo APPLY TO THE AFFECTED AREA 2 X EACH WEEK. apply on scalp. Leave on for 5 minutes then rinse off 03/17/2024 Breo Ellipta 200-25 mcg/dose inhaler Inhale 1 puff by mouth 1 (one) time each day. 05/06/2024 zolpidem (AMBIEN) 10 mg tablet TAKE 1 TABLET BY MOUTH EVERY NIGHT AT BEDTIME FOR SLEEP 06/22/2024 carvediloL (COREG) 6.25 mg tablet TAKE 1 TABLET BY MOUTH two (2) times a day WITH A MEAL Synjardy 12.5-500 mg tablet TAKE 1 TABLET BY MOUTH two (2) times a day (WITH BREAKFAST, AND WITH DINNER) 05/20/2024 esomeprazole (NexIUM) [address] capsule TAKE 1 CAPSULE BY MOUTH two (2) times a day 05/19/2024 added in this encounter Care Teams Counter Helper Relationship Specialty Start Date End Date Name, MD Matt [address] [place], [place] PCP - General 07/08/22 documented as of this encounter
--- OUTSIDE RECORDS SUMMARY | 2024-07-12 15:26 | XMS_ITS | Encounter Summary ---
Author Organization [facility] Address [address] [place] [address] Support Name Relationship Address Phone Kimo Sprague Emergency Contact [address] [place] [address] Care Team Providers Care Can Labeler Name Role Phone Anila Craven MD Primary Care Provider Un available Stacy Parry MD Primary Care Provider Unavail able Victoriano Smith MD Primary Care Provider Unava ilable Bryce, Matt APPIAH Primary Care Provider UnavailReyna Yañez MD Unavailable [phone] Chris WallaceC Unavailable [phone] Latoya Hardy PA-C Unavailable Reason for Visit * Reason Onset Date Comments Prior Authorization 08/20/2017 Encounter Details Date Type Department Care Team Description 08/20/2017 Telephone Adult Medicine [address] [address] Anila Craven MD Prior Authorization Social History Tobacco Use Types Packs/Day Years Used Date Smoking Tobacco: Never Alcohol Use Standard Drinks/Week Comments No 0 (1 standard drink = 0.6 oz pur e alcohol) Sex Assigned at Date Recorded Not on file documented as of this encounter Miscellaneous Notes * Telephone Encounter - Alessia Jorge M.A. - 08/21/2017 3:56 PM EST She already switched to Reel[employer], she will get a 7 day supply and then she will be able to get the remaining 21 days Spoke to pt * Telephone Encounter - Crissy Wing - 08/20/2017 4:00 PM EST Pre Authorization for Medication-do not complete and send this encounter unless you have the fax from the pharmacy. Is this a Cover My Meds request: Yes -- [place] Code [id number] Name of Medication oxycodone (ROXICODONE) 5 MG immediate release tablet Dose of Medication How does patient take this med? What Pharmacy did the fax come from: [facility] Pharmacy fax #: [phone] [employer] Party Information from fax: What Prescription Plan does the patient have? BIN/PCN if applicable: Cardholder ID: Person Code: Relationship Code: Help desk phone: documented in this encounter Plan of Treatment Not on file documented as of this encounter Visit Diagnoses Not on filedocumented in this encounter Care Teams Can Labeler Relationship Specialty Start Date End Date Anila Craven MD PCP - General Internal Medicine 09/03/16 9 Stacy Parry MD PCP - General Internal Medicine 02/21/19 01/20/20 Victoriano Smith MD PCP - General Internal Medicine 01/21/20 07/07/22 Matt Wu MD PCP - General Internal Medicine 07/08/22 Ryena Laboy MD [address] [address] Specialist Neurosurgery 12/22/23 Chris Wallace PA-C [address] [address] Specialist Neurosurgery 03/10/24 Latoya Hardy PA-C [address] [address] Specialist Neurosurgery 03/10/24 documented as of this encounter
== END 2024-07-12 14:32 | disposition home or self-care (01) ==
LOC: HO.HAP 14:31
PROVIDERS: PCP Internal Medicine Geriatric Medicine; Visit Provider Otolaryngology
DX: Z46.1 Encounter for fitting and adjustment of hearing aid (principal); H90.3 Sensorineural hearing loss, bilateral
CPT/HCPCS: V5011; V5020; V5160; V5261

== ENCOUNTER 2024-07-28 08:28 | Day surgery (SDC) | payer MEDICAID, SELFPAY ==
[2024-07-26 16:06] VITALS: BMI 37.6
--- NOTE | 2024-07-27 12:28 | HO.ANESPROP2 ---
Documented by User: Brea Ramos NP 07/27/24 12:40 HPI - Anesthesia Eval Consult details Narrative: 54yo F for Upper Endoscopy Follows [facility] Cardiology for CAD, atypical CP, palp, hld. Stable at 06/2024 office visit. Anesthesia Pre-Procedure Meds Is the patient on any of the following meds?: SGLT2 Inhib PMFSH Active Problems Active Problems: All Active Problems Statin intolerance (Acute) Cough (Acute) Kidney stone on left side (Acute) Urinary frequency (Acute) Right flank pain (Acute) Encounter for well woman exam with routine gynecological exam (Acute) Oropharyngeal dysphagia (Acute) Umbilical hernia (Acute) Scalp mass (Acute) E coli enteritis (Acute) Left flank pain (Acute) Constipation (Acute) CAD (coronary artery disease) (Acute) De Quervain's tenosynovitis, right (Acute) Vertigo (Acute) Carpal tunnel syndrome of right wrist (Acute) Numbness and tingling in both hands (Acute) Keratoderma (Acute) Onychomycosis (Acute) Right median nerve neuropathy (Acute) Allergic rhinitis (Acute) Lumbar degenerative disc disease (Acute) Thoracic spondylosis (Acute) Asthma (Acute) Psoriatic arthritis (Acute) Thoracic disc herniation (Acute) Migraines (Acute) Gastroparesis (Acute) HURD (nonalcoholic steatohepatitis) (Acute) Right upper quadrant abdominal pain (Acute) GERD (gastroesophageal reflux disease) (Acute) H. pylori infection (Acute) Psoriasis (Acute) Scalp cyst (Acute) Obesity (BMI 30-39.9) (Acute) Type 2 diabetes mellitus without complication (Acute) Back pain (Acute) Morbid obesity with BMI of 40.0-44.9, adult (Acute) Insomnia (Acute) Diabetes mellitus (Acute) Benign essential hypertension (Acute) Mixed hyperlipidemia (Acute) Past Medical History Medical History Encounter for well woman exam with routine gynecological exam Umbilical hernia Scalp mass Irritable bowel syndrome with diarrhea Allergic rhinitis Lumbar degenerative disc disease Breast pain during Carpal tunnel syndrome Arthritis Morbid obesity with BMI of 40.0-44.9, adult Insomnia Diabetes mellitus Benign essential hypertension Polyarthralgia Fibromyalgia Mixed hyperlipidemia Candidiasis of mouth and esophagus Thoracic spondylosis Family History Family History Father NIDDY (non-insulin dependent diabetes mellitus in young) Cardiovascular disease Obesity Cancer of unknown origin Colon cancer Mother CAD (coronary artery disease) NIDGREER (non-insulin dependent diabetes mellitus in young) Brother Schizophrenia Degenerative disc disease H/O lymph node cancer Sister Breast cancer Colon cancer Paternal Grandmother Ovarian cancer, Onset Age: 45 Daughter Fibromyalgia Hypertension Cancer of unknown origin Ovarian cancer Other Mental health problem Surgical History Surgical History Hx of dilation and curettage History of endometrial ablation Hx of colonoscopy History of esophagogastroduodenoscopy (EGD) History of dermoid cyst excision History of excision of lamina of cervical vertebra for decompression of spinal cord H/O hemorrhoidectomy History of appendectomy Social History Social History Household Members: None Housing: Apartment Alcohol intake: never Patient Tobacco Use Status: Never used Tobacco e-Cigarette/Vaping Use: Never Used Second Hand Smoke Exposure: No Advance Directives: No Advance Directives Information Provided: Yes service: No Current occupational status: disabled 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 Sexual orientation: Straight/Heterosexual Gender identity: Female Cognitive needs: No Hearing needs: Yes Vision needs: Yes Meds Allergies Allergy/AdvReac Type Severity Reaction Status Date / Time acetaminophen [From Vicodin] Allergy Intermediate Palpitations, Verified 06/17/24 13:10 Itch amoxicillin [Prevpac] Allergy Intermediate itchy Verified 06/17/24 13:10 throat hydrocodone [From Vicodin] Allergy Intermediate Palpitations, Verified 06/17/24 13:10 Itch ibuprofen [From Motrin] Allergy Intermediate UPSET Verified 06/17/24 13:10 STOMACH, abdominal pain lansoprazole [Prevpac] Allergy Intermediate itchy Verified 06/17/24 13:10 throat morphine [MORPHINE] Allergy Intermediate PALPATATIONS, Verified 06/17/24 13:10 PANIC ATTACKS, nauseas,panic attack, heart palpitations omeprazole [From PRILOSEC] Allergy Intermediate ITCHY Verified 06/17/24 13:10 THROAT pravastatin [PRAVASTATIN] Allergy Intermediate UNKNOWN Verified 06/17/24 13:10 rosuvastatin [From CRESTOR] Allergy Intermediate UNKNOWN Verified 06/17/24 13:10 terbinafine [TERBINAFINE] Allergy Intermediate UNKNOWN Verified 06/17/24 13:10 atorvastatin [From LIPITOR] Allergy Unknown UNKNOWN Verified 06/17/24 13:10 clarithromycin [From BIAXIN] AdvReac Intermediate ABD PAIN, Verified 06/17/24 13:10 DIARRHEA gabapentin [GABAPENTIN] AdvReac Intermediate UNKNOWN, Verified 06/17/24 13:10 nausea, dizziness levofloxacin [LEVOFLOXACIN] AdvReac Intermediate PALPITATION Verified 06/17/24 13:10 S tylenol with codeine Allergy Unknown fast heart Uncoded 06/17/24 13:10 rate Home Medications ?Medication ?Instructions ?Recorded ?Confirmed ?Last Taken ?Type albuterol sulfate 90 mcg/actuation 2 puff PO QID PRN 03/21/20 06/17/24 Unknown History aerosol inhaler calcipotriene 0.005 % scalp topical 02/04/21 06/17/24 Unknown History solution albuterol sulfate 2.5 mg/3 mL 2.5 mg continuous nebulization QID 12/06/21 06/17/24 Unknown History (0.083 %) solution for nebulization PRN shortness of breath or wheezing clindamycin phosphate 1 % lotion topical DAILY 07/25/22 06/17/24 Unknown History sumatriptan succinate 50 mg tablet 50 mg PO Q2-4H PRN migraine 03/05/23 06/17/24 Unknown History headache empagliflozin 12.5 mg-metformin 1 tab PO BID 05/22/23 06/17/24 Unknown History 500 mg tablet (Synjardy) carvedilol 6.25 mg tablet 6.25 mg PO BID 08/18/23 06/17/24 Unknown History hydroquinone 4 % topical cream 1 appl topical DAILY 12/01/23 06/17/24 Unknown History [id number]-cwjkijyqe-meonvttu 3.5 1 drp ophthalmic (eye) QID 06/17/24 06/17/24 Unknown History mg/mL-10,000 unit/mL-0.1% eye drops Exam Height,Weight and Vital Signs: Height 5 ft 3 in Weight 96.162 kg Narrative Narrative: EKG 06/2024 Vent. Rate : 073 BPM Atrial Rate : 073 BPM P-R Int : 174 ms QRS Dur : 092 ms QT Int : 424 ms P-R-T Axes : 024 -17 003 degrees QTc Int : 467 ms Normal sinus rhythm Moderate voltage criteria for LVH, may be normal variant ( R in aVL , [place] product ) Nonspecific T wave abnormality Abnormal ECG When compared with ECG of 04-NOV-2023 15:13, No significant change was found Holter 2023 conclusion: 1. Patient was monitored for total period of 22 hours 2. Baseline was normal sinus rhythm with average heart of 60 beats per minute 3. Frequent sinus bradycardia noted with 50% of time heart rate below 60 beats per minute with no significant pauses 4. Rare PACs noted 5. No patient reported events Assessment and Plan Assessment Anesthesia Assessment: Chart Reviewed Documented by User: Jackelyn Lozano MD 07/28/24 09:41 [facility] Past Medical History Medical History Encounter for well woman exam with routine gynecological exam Umbilical hernia Scalp mass Irritable bowel syndrome with diarrhea Allergic rhinitis Lumbar degenerative disc disease Breast pain during Carpal tunnel syndrome Arthritis Morbid obesity with BMI of 40.0-44.9, adult Insomnia Diabetes mellitus Benign essential hypertension Polyarthralgia Fibromyalgia Mixed hyperlipidemia Candidiasis of mouth and esophagus Thoracic spondylosis Family History Family History Father NIDDY (non-insulin dependent diabetes mellitus in young) Cardiovascular disease Obesity Cancer of unknown origin Colon cancer Mother CAD (coronary artery disease) NIDDY (non-insulin dependent diabetes mellitus in young) Brother Schizophrenia Degenerative disc disease H/O lymph node cancer Sister Breast cancer Colon cancer Paternal Grandmother Ovarian cancer, Onset Age: 45 Daughter Fibromyalgia Hypertension Cancer of unknown origin Ovarian cancer Other Mental health problem Family history of problems with anesthesia: No Surgical History Surgical History Hx of dilation and curettage History of endometrial ablation Hx of colonoscopy History of esophagogastroduodenoscopy (EGD) History of dermoid cyst excision History of excision of lamina of cervical vertebra for decompression of spinal cord H/O hemorrhoidectomy History of appendectomy History of Problems with Anesthesia: No Social History Social History Household Members: None Housing: Apartment Alcohol intake: never Patient Tobacco Use Status: Never used Tobacco e-Cigarette/Vaping Use: Never Used Second Hand Smoke Exposure: No Advance Directives: No Advance Directives Information Provided: Yes service: No Current occupational status: disabled 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 Sexual orientation: Straight/Heterosexual Gender identity: Female Cognitive needs: No Hearing needs: Yes Vision needs: Yes Meds Allergies Allergy/AdvReac Type Severity Reaction Status Date / Time acetaminophen [From Vicodin] Allergy Intermediate Palpitations, Verified 06/17/24 13:10 Itch amoxicillin [Prevpac] Allergy Intermediate itchy Verified 06/17/24 13:10 throat hydrocodone [From Vicodin] Allergy Intermediate Palpitations, Verified 06/17/24 13:10 Itch ibuprofen [From Motrin] Allergy Intermediate UPSET Verified 06/17/24 13:10 STOMACH, abdominal pain lansoprazole [Prevpac] Allergy Intermediate itchy Verified 06/17/24 13:10 throat morphine [MORPHINE] Allergy Intermediate PALPATATIONS, Verified 06/17/24 13:10 PANIC ATTACKS, nauseas,panic attack, heart palpitations omeprazole [From PRILOSEC] Allergy Intermediate ITCHY Verified 06/17/24 13:10 THROAT pravastatin [PRAVASTATIN] Allergy Intermediate UNKNOWN Verified 06/17/24 13:10 rosuvastatin [From CRESTOR] Allergy Intermediate UNKNOWN Verified 06/17/24 13:10 terbinafine [TERBINAFINE] Allergy Intermediate UNKNOWN Verified 06/17/24 13:10 atorvastatin [From LIPITOR] Allergy Unknown UNKNOWN Verified 06/17/24 13:10 clarithromycin [From BIAXIN] AdvReac Intermediate ABD PAIN, Verified 06/17/24 13:10 DIARRHEA gabapentin [GABAPENTIN] AdvReac Intermediate UNKNOWN, Verified 06/17/24 13:10 nausea, dizziness levofloxacin [LEVOFLOXACIN] AdvReac Intermediate PALPITATION Verified 06/17/24 13:10 S tylenol with codeine Allergy Unknown fast heart Uncoded 06/17/24 13:10 rate Home Medications ?Medication ?Instructions ?Recorded ?Confirmed ?Last Taken ?Type albuterol sulfate 90 mcg/actuation 2 puff PO QID PRN 03/21/20 06/17/24 Unknown History aerosol inhaler calcipotriene 0.005 % scalp topical 02/04/21 06/17/24 Unknown History solution albuterol sulfate 2.5 mg/3 mL 2.5 mg continuous nebulization QID 12/06/21 06/17/24 Unknown History (0.083 %) solution for nebulization PRN shortness of breath or wheezing clindamycin phosphate 1 % lotion topical DAILY 07/25/22 06/17/24 Unknown History sumatriptan succinate 50 mg tablet 50 mg PO Q2-4H PRN migraine 03/05/23 06/17/24 Unknown History headache empagliflozin 12.5 mg-metformin 1 tab PO BID 05/22/23 06/17/24 Unknown History 500 mg tablet (Synjardy) carvedilol 6.25 mg tablet 6.25 mg PO BID 08/18/23 06/17/24 Unknown History hydroquinone 4 % topical cream 1 appl topical DAILY 12/01/23 06/17/24 Unknown History fdyqnqdc-wtqlwnxpv-jvqlohls 3.5 1 drp ophthalmic (eye) QID 06/17/24 06/17/24 Unknown History mg/mL-10,000 unit/mL-0.1% eye drops Exam Airway Mallampati Class: II TM Dist: >3cm Neck ROM: Full Heart: rrr Lungs: cta Assessment and Plan Assessment Anesthesia Assessment: Anesthesia Plan Discussed Final Anesthetic Review Family History of Problems with Anesthesia: No History of Problems with Anesthesia: No NPO: Yes ASA Class: III Final Preanesthetic Review: No Changes in Pt Med Stat, Meds/Allgs Chart Reviewed, Consent Obtained/Reviewed and Anes Risks/Benef Reviewed Patient Risk: Intermediate Procedure Risk: Low Anesthetic Plan Anesthetic Plan: MAC: Disposition: Standard PACU
[2024-07-28 09:31] VITALS: BP 185/77; PULSE 64; RESP 20; TEMP 36.1; O2SAT 96; BMI 38.2
[2024-07-28 09:40] LABS: Glucose, Whole Blood 133 mg/dL (60-115)
[2024-07-28] MEDS: Lactated Ringers 1,000 ML 100 ML IVCONT (09:59)
--- NOTE | 2024-07-28 10:09 | P.HPSUR_ITS ---
Pre-Procedural Eval Section A - 24 Hr Update-Section A only Date of Service: 07/28/24 Section B - Complete if H&P > 30 days Chief Complaint: Gastro-esophageal reflux disease without esophagit Relevant Family History (Specify if Yes): No Relevant Social History: None Present Medications: see Short Stay Collaborative assessment Medical History: Significant History (Umbilical hernia Scalp mass Irritable b owel syndrome with diarrhea Allergic rhinitis Lumbar degenerative disc disease Breast pain during Carpal tunnel syndrome Arthritis Morbid obesity with BMI of 40.0-44.9, adult Insomnia Diabetes mellitus Benign essential hypertension Polyarthralgia Fibr) History of Previous Operations: Relevant previous surgery/procedure and date(s) (Hx of dilation and curettage History of endometrial ablation Hx of colonoscopy History of esophagogastroduodenoscopy (EGD) History of dermoid cyst excision History of excision of lamina of cervical vertebra for decompression of spinal cord H/O hemorrhoidectomy History of appendectomy) Allergies: Allergies Allergy/AdvReac Type Severity Reaction Status Date / Time acetaminophen [From Vicodin] Allergy Intermediate Palpitations, Verified 06/17/24 13:10 Itch amoxicillin [Prevpac] Allergy Intermediate itchy Verified 06/17/24 13:10 throat hydrocodone [From Vicodin] Allergy Intermediate Palpitations, Verified 06/17/24 13:10 Itch ibuprofen [From Motrin] Allergy Intermediate UPSET Verified 06/17/24 13:10 STOMACH, abdominal pain lansoprazole [Prevpac] Allergy Intermediate itchy Verified 06/17/24 13:10 throat morphine [MORPHINE] Allergy Intermediate PALPATATIONS, Verified 06/17/24 13:10 PANIC ATTACKS, nauseas,panic attack, heart palpitations omeprazole [From PRILOSEC] Allergy Intermediate ITCHY Verified 06/17/24 13:10 THROAT pravastatin [PRAVASTATIN] Allergy Intermediate UNKNOWN Verified 06/17/24 13:10 rosuvastatin [From CRESTOR] Allergy Intermediate UNKNOWN Verified 06/17/24 13:10 terbinafine [TERBINAFINE] Allergy Intermediate UNKNOWN Verified 06/17/24 13:10 atorvastatin [From LIPITOR] Allergy Unknown UNKNOWN Verified 06/17/24 13:10 clarithromycin [From BIAXIN] AdvReac Intermediate ABD PAIN, Verified 06/17/24 13:10 DIARRHEA gabapentin [GABAPENTIN] AdvReac Intermediate UNKNOWN, Verified 06/17/24 13:10 nausea, dizziness levofloxacin [LEVOFLOXACIN] AdvReac Intermediate PALPITATION Verified 06/17/24 13:10 S tylenol with codeine Allergy Unknown fast heart Uncoded 06/17/24 13:10 rate Review of Systems Sugical H&P ROS: Negative: Constitution, Cardiovascular, Respiratory, Neurological, Psychiatric, Hem-Onc, Allergic/Immunologic, Gastrointestinal, Genitourinary, Musculoskeletal, Integumentary, Endocrine and Eyes/Ears/Nose/Throat Exam Surgical H&P Exam: Normal: HEENT, Normal: Heart, Normal: Lungs, Normal: Extremities, Normal: Abdomen, Normal: Skin and Normal: Neurological Plan Diagnosis/Plan: Unchanged I have reviewed the history and physical and performed a pertinent physical examination on my patient. No changes have occurred unless specified. Time Spent With Patient Time: Total time managing care of this patient today ____ minutes.
--- NOTE | 2024-07-28 10:31 | W.PM.OPN ---
Operative Note Operative Note Date of Service: 07/28/24 Narrative: Procedure Description: EGD Indication: gerd Anesthesia: MAC FLEXIBLE TRANSORAL UPPER GASTROINTESTINAL ENDOSCOPY UPPER ENDOSCOPY Consent: Indications for the procedure and potential complications of bleeding, perforation, reaction to medications and missed diagnosis were discussed with the patient and informed consent was obtained. Instrument: Olympus GIF H 190 J mid size upper endoscope Monitoring: Vital signs and clinical assessment, continuous EKG monitoring, Pulse oximetry, Carbon Dioxide monitoring and blood pressure monitoring were done throughout the procedure. Procedure: The patient was placed in the left lateral decubitis position and pre-procedure medications were administered and a bite block was placed. The endoscope was inserted into the mouth and advanced under direct vision to the third part of duodenum. A careful inspection was made as the upper endoscope was withdrawn including a retroflexed examination of the proximal stomach; Findings and interventions are described below. Findings: Larynx:normal Esophagus: GE junction at 37 cm, diaphragm hiatus at 37 cm, lax LES, bx taken from GEJ, and distal, proximal esophagus Stomach: patchy erythema and edema . Biopsies were obtained. Grade 2 flap valve on retroflexed examination of the cardia. Duodenum: Normal bulb and descending duodenum, bx taken Intervention: Biopsies as noted above, Impression/Findings: gastritis patulous GEJ PLAN: cont with PPI as doing GERD precautions
[2024-07-28 10:37] VITALS: BP 157/87; PULSE 99; RESP 16; TEMP 37; O2SAT 99
[2024-07-28 10:50] VITALS: BP 149/93; PULSE 71; RESP 18; TEMP 37; O2SAT 96
== END 2024-07-28 11:20 | disposition home or self-care (01) ==
PROVIDERS: PCP Internal Medicine Geriatric Medicine; Visit Provider Internal Medicine Gastroenterology
PROC: 0DJ08ZZ Inspection of Upper Intestinal Tract, Via Natural or Artificial Opening Endoscopic (ICD-10-PCS; CPT 43235; principal; 2024-07-28 11:00)
DX: K21.9 Gastro-esophageal reflux disease without esophagitis (principal); R13.12 Dysphagia, oropharyngeal phase; K29.50 Unspecified chronic gastritis without bleeding; K22.89 Other specified disease of esophagus; K31.84 Gastroparesis; K44.9 Diaphragmatic hernia without obstruction or gangrene; K58.0 Irritable bowel syndrome with diarrhea; J30.9 Allergic rhinitis, unspecified; I10 Essential (primary) hypertension; E78.2 Mixed hyperlipidemia; E11.9 Type 2 diabetes mellitus without complications; M79.7 Fibromyalgia; E66.01 Morbid (severe) obesity due to excess calories; Z68.41 Body mass index [BMI] 40.0-44.9, adult; Z79.84 Long term (current) use of oral hypoglycemic drugs; Z79.899 Other long term (current) drug therapy; Z88.1 Allergy status to other antibiotic agents; Z88.5 Allergy status to narcotic agent; Z88.6 Allergy status to analgesic agent; Z88.8 Allergy status to other drugs, medicaments and biological substances; Z98.890 Other specified postprocedural states
CPT/HCPCS: 43239; 82947; 88305; 88313; 88342; J2003; J2704

== ENCOUNTER → 2024-07-28 08:28 | Outpatient (BNV) | payer MEDICAID, SELFPAY | PROVIDERS: PCP Internal Medicine Geriatric Medicine; Visit Provider Internal Medicine Gastroenterology | DX: K21.9 Gastro-esophageal reflux disease without esophagitis (principal); K29.70 Gastritis, unspecified, without bleeding; K22.89 Other specified disease of esophagus | CPT/HCPCS: 43239 ==

== ENCOUNTER 2024-08-04 16:05 | Outpatient (REF) | payer MEDICAID, SELFPAY ==
--- OUTSIDE RECORDS SUMMARY | 2024-08-04 16:47 | XMS_ITS | Encounter Summary ---
Author Organization [employer] Address [address] [facility] 7[address] [place] [address] Care Team Providers Care Emergency Management Coordinator Name Role Phone Name, Matt APPIAH Primary Care Provider [phone] Reason for Visit * Reason Onset Date Comments Med Refill 01/21/2024 Encounter Details Date Type Department Care Team (Late st Contact Info) Description 01/21/2024 Telephone [facility] [address] [place] [address] Name, MD Matt [address] [place] [address] Med Refill Social History Tobacco Use Types [...] 10 MG tablet To be sent to: [facility] - [place], [place] - [id number] - [place], [place] - [phone] documented in this encounter Plan of Treatment Upcoming Encounters Date Type Department Care Team (Late st Contact Info) Description 08/15/2024 2:30 PM EST Office Visit [facility] [address] [place] [phone] Name, MD Matt [address] [place] [phone] documented as of this encounter Visit Diagnoses Not on filedocumented in this encounter Additional Health Concerns Assessment Noted Time PHQ-9 Depression Total Score: 0 09/07/19 3:15 PM EDT documented as of this encounter Care Teams Emergency Management Coordinator Relationship Specialty Start Date End Date Name, MD Matt [address] [place] [address] [phone] PCP - General Family Medicine 02/21/22 Estephanie Tan Hairspring Fabrication SupervisorEtl Informatica Architect 11/24/23 documented as of this encounter
--- OUTSIDE RECORDS SUMMARY | 2024-08-04 16:48 | XMS_ITS | Encounter Summary ---
Author Organization [employer] Address [address] [facility] [address] [place] [address] Care Team Providers Care Pediatric Registered Nurse Name Role Phone Name, Matt APPIAH Primary Care Provider [phone] Reason for Visit * Reason Onset Date Comments triage 09/18/2022 Encounter Details Date Type Department Care Team ([facility] st Contact Info) Description 09/18/2022 Telephone [facility]INE [address] [place], [place] [phone] Name, MD Matt [address] [place], [place] [phone] triage Social History Tobacco Use Types Packs/Day [...] The caller accepted this outcome pt speaks trinidadian documented in this encounter Plan of Treatment Upcoming Encounters Date Type Department Care Team (Late st Contact Info) Description 08/15/2024 2:30 PM EST Office Visit [facility] [address] [place] [address] Name, MD Matt [address] [place] [address] documented as of this encounter Visit Diagnoses Not on filedocumented in this encounter Care Teams Pediatric Registered Nurse Relationship Specialty Start Date End Date NameMatt MD [address] [place] [address] PCP - General Family Medicine 02/21/22 Estephanie Tan Accounting Manager CpaTurn Out 11/24/23 documented as of this encounter
--- OUTSIDE RECORDS SUMMARY | 2024-08-04 16:48 | XMS_ITS | Encounter Summary ---
Author Organization [employer] Address [address] [facility] [address] [place] [address] Care Team Providers Care Cargo Operations Agent Name Role Phone Name, Matt APPIAH Primary Care Provider [phone] Reason for Visit * Reason Onset Date Comments Med Refill 09/24/2023 Encounter Details Date Type Department Care Team (Late st Contact Info) Description 09/24/2023 Telephone [facility] [address] [place] [address] Name, MD Matt [address] [place] [address] Med Refill Social History Tobacco Use Types [...] 10 MG tablet To be sent to: [facility] - [place], [place] - [id number] - [place] [phone] documented in this encounter Plan of Treatment Upcoming Encounters Date Type Department Care Team (Late st Contact Info) Description 08/15/2024 2:30 PM EST Office Visit [facility] [address] [place] [address] Name, MD Matt [address] [place] [address] documented as of this encounter Visit Diagnoses Not on filedocumented in this encounter Additional Health Concerns Assessment Noted Time PHQ-9 Depression Total Score: 0 09/07/19 24 3:15 PM EDT documented as of this encounter Care Teams Cargo Operations Agent Relationship Specialty Start Date End Date Name, MD Matt [address] [place] [id number] PCP - General Family Medicine 02/21/22 Estephanie Tan Supervisor Lamp ShadesPsychiatric Nurse 11/24/23 documented as of this encounter
--- OUTSIDE RECORDS SUMMARY | 2024-08-04 16:48 | XMS_ITS | Encounter Summary ---
Author Organization [employer] Address [address] [facility] [address] [place] [address] Care Team Providers Care Java User Interface Developer Name Role Phone Name, Matt APPIAH Primary Care Provider [phone] Reason for Referral * Consultation (Routine) - Pending Review Specialty Diagnoses / Procedures Referred By Caridad veronica Referred To Contact Dermatology Diagnoses Yolande Mauricio MD [address] [place] [address] Phone: tel: fax: Referral ID Status Reason Start Date Expiration Date Visits Requested Visits Authorized [id number] Pending Review Specialty Services Required 08/04/2024 08/04/2025 1 1 Reason for Visit * Reason Comments Arm Pain Encounter Details Date Type Department Care Team (Latest Contact Info) Description 08/04/2024 3:20 PM EST Office Visit [facility] [address] [place], [place] [phone] Rash (Primary Dx); Acute nonintractable headache, unspecified headache type; Primary hypertension Social History Tobacco Use Types Packs/Day [...] AM EDT documented as of this encounter Last Filed Vital Signs Vital Sign Reading Time Taken Comments Blood Pressure 157/81 08/04/2024 3:26 PM EST Pulse 60 08/04/2024 3:26 PM EST Temperature 37.2 ??C (98.9 ??F) 08/04/2024 3:26 PM ES T Respiratory Rate 20 08/04/2024 3:26 PM EST Oxygen Saturation - - Inhaled Oxygen Concentration - - Weight 95.3 kg (210 lb) 08/04/2024 3:26 PM EST Height - - Body Mass Index 37.2 03/22/2024 3:08 PM EDT documented in this encounter Miscellaneous Notes * Assessment & Plan Note - Yolande Victor MD - 08/04/2024 4:19 PM EST Associated Problem(s): Rash Blood work ordered today, patient will be contacted with results I will refer her to dermatology * Assessment & Plan Note - Yolande Victor MD - 08/04/2024 4:18 PM EST Associated Problem(s): Hypertension I advised low-sodium diet and weight reduction I advised to take her medications every day without missing any dose I advised to monitor her blood pressure at home and bring log for her next appointment with her PCP documented in this encounter Plan of Treatment Upcoming Encounters Date Type Department Care Team (Late st Contact Info) Description 08/15/2024 2:30 PM EST Office Visit [facility] [address] [place] [phone] Name, MD Matt [address] [place], [place] [phone] Scheduled Orders Name Type Priority Associated Diagnoses Orde r Schedule Prothrombin Time-INR Lab Routine Rash Expected: 08/04/2024, Expires: 08/04/2025 Partial Thromboplastin Time, Activated (APTT) Lab Routine Rash Expected: 08/04/2024, Expires: 08/04/2025 CBC auto differential Lab Routine Rash Expected: 08/04/2024 (Approximate), Expires: 08/04/2025 Comprehensive Metabolic Panel Lab Routine Rash Expected: 08/04/2024 (Approximate), Expires: 08/04/2025 C-reactive Protein Lab Routine Rash Expected: 08/04/2024 (Approximate), Expires: 08/04/2025 Sed Rate by Modified W[place]gren Lab Routine Rash Expected: 08/04/2024, Expires: 08/04/2025 BIN Screen,IFA, with Reflex to Titer and Pattern Lab Routine Rash Expected: 08/04/2024 (Approximate), Expires: 08/04/2025 Scheduled Referrals Name Type Priority Associated Diagnoses Order Schedule Referral to Dermatology Outpatient Referral Routine Rash Expected: 08/04/2024 (Approximate), Expires: 08/04/2025 documented as of this encounter Visit Diagnoses Diagnosis Rash- Primary Rash and other nonspecific skin eruption Acute nonintractable headache, unspecified headache type Primary hypertension Unspecified essential hypertension documented in this encounter Additional Health Concerns Assessment Noted Time PHQ-9 Depression Total Score: 0 09/07/19 24 3:15 PM EDT documented as of this encounter Care Teams Java User Interface Developer Relationship Specialty Start Date End Date Name, MD Matt [address] [place] [address] PCP - General Family Medicine 02/21/22 Estephanie Tan Weaving SupervisorBand Sawing Machine Operator 11/24/23 documented as of this encounter
--- OUTSIDE RECORDS SUMMARY | 2024-08-04 16:48 | XMS_ITS | Clinical Summary ---
Author Organization [employer] Address [address] [facility] [address] [place] [address] Care Team Providers Care Teacher Vocational Training Name Role Phone Name, Matt APPIAH Primary Care Provider [phone] Allergies Active Allergy Reactions Criticality Noted Date [...] represent a complete record from that organization. budesonide-formo terol (Symbicort) 160-4.5 MCG/ACT inhaler INHALE DANDO DOS [...] instructed Active clindamycin (Cleocin T) 1 % lotionIndication s:Scalp psoriasis APLIQUE CAPA BEHZAD EL AREA AFECTADA TODOS LOS HAM 60 mL 3 08/08/19 23 Active olopatadine (Patanol) 0.1 % ophthalmic solution Administer 1 drop into affected eye(s) 2 times daily. 5 mL 2 09/07/19 24 025 Active ipratropium (Atrovent) 0.03 % nasal sprayIndications :Acute cough,Seasonal allergies Administer 2 sprays into each nostril every 12 (twelve) hours. 30 mL 12 09/30/19 24 025 Active ezetimibe (Zetia) 10 MG tabletIndication s:Type 2 diabetes mellitus with neurological manifestations, controlled (CMS/HCC) Take 1 tablet (10 mg) by mouth Once per day. 30 tablet 11 11/06/19 24 025 Active mometasone (Elocon) 0.1 % ointment Apply topically Once per day. 15 g 12/18/19 24 025 Active fluticasone (Flonase) 50 MCG/ACT nasal sprayIndications :Acute cough,Seasonal allergies SPRAY TWICE IN EACH NOSTRIL ONCE DAILY IN THE MORNING. shake gently. Before first use, prime pump. After use, clean tip and replace cap 48 g 12/31/19 24 Active cetirizine (ZyrTEC) 10 MG tabletIndication s:Acute cough,Seasonal allergies TAKE 1 TABLET BY MOUTH [...] DAYS 75 mL 11 04/06/20 24 Active hydroCHLOROthiaz gray (HYDRODiuril) 25 MG tabletIndication s:Hypertension, unspecified type TAKE 1 TABLET BY MOUTH ONCE DAILY 90 tablet 1 04/14/20 24 Active Synjardy 12.5-500 MG TAKE 1 TABLET BY MOUTH two (2) times a day (WITH BREAKFAST, AND WITH DINNER) 180 tablet 3 05/20/20 24 Active aspirin (Aspirin Low Dose) 81 MG EC tabletIndication s:Essential hypertension TAKE 1 TABLET BY MOUTH ONCE DAILY 90 tablet 06/16/19 25 Active carvedilol (Coreg) 6.25 MG tabletIndication s:Essential hypertension TAKE 1 TABLET BY MOUTH two (2) times a day WITH A MEAL 180 tablet 1 06/20/19 25 Active zolpidem (Ambien) 10 MG tabletIndication s:Insomnia, unspecified type TAKE 1 TABLET BY MOUTH EVERY NIGHT AT BEDTIME FOR SLEEP 30 tablet 07/22/19 25 Active zolpidem (Ambien) 10 MG tabletIndication s:Insomnia, unspecified type TAKE 1 TABLET BY MOUTH EVERY NIGHT AT BEDTIME FOR SLEEP 30 tablet 06/22/19 25 025 Discontinued Active Problems Problem Noted Date Diagnosed Date Rash 08/04/2024 Assessment & Plan (08/04/2024 4:19 PM EST): Blood work ordered today, patient will be contacted with results I will refer her to dermatology History of cervical spinal surgery 03/22/2024 Overview (03/22/2024): s/p C4-5 ACDF on 03/01/2024 C5-6, C6-7 ACDF with plating on 08/25/[address] Laboy at [facility] Class 2 obesity 11/06/2023 CLARA (generalized anxiety [...] agreed to referral. She requested referral in [facility]. Provided education around integrated medicine and the options of follow up BE's as needed. Provided contact information should questions or concerns arise. ?? Plan: Farrah will engage in effective coping mechanisms to manage sxs. Referral will be placed for Ind Therapy and Psychiatrist at [facility], per her request. Premenstrual symptom 05/23/2019 [...] Overview (01/01/2023): Bilateral - negative EMG at [place] 2014 Osteoarthritis 12/25/2014 Overview (01/01/2023): Hands, knees, spine Tricuspid regurgitation 12/25/2014 Overview (01/01/2023): Mild tricuspid / mild pulmonic Fibromyalgia 10/16/2014 Psoriasis 10/16/2014 Psoriatic arthritis 05/25/2012 Depressive disorder 12/08/2011 Migraine 12/08/2011 Degeneration of intervertebral disc 12/03/2011 Severe obesity 12/03/2011 Asthma 08/07/2011 Hypertension 08/07/2011 Overview (01/01/2023): Follows with cardiology Assessment & Plan (08/04/2024 4:18 PM EST): I advised low-sodium diet and weight reduction I advised to take her medications every day without missing any dose I advised to monitor her blood pressure at home and bring log for her next appointment with her PCP Hyperlipidemia 08/07/2011 Type 2 diabetes mellitus wit h neurological manifestations, controlled 08/07/2011 GERD (gastroesophageal reflux disease) 2 Overview (01/01/2023): F/u GI C H/o H.pylori x 3 Resolved Problems Problem Noted Date Diagnosed Date Resolved Date Foot callus 04/13/2018 07/08/2023 Onychomycosis 03/23/2018 07/08/2023 Old WA (myocardial infarction) 12/25/2014 11/06/2023 Overview (01/01/2023): 1998/ Dr Perez 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 07/08/2023 Other psoriasis and similar disorders 12/03/2011 07/08/2023 Encounters Date Type Department Care Team Description 08/04/2024 3:20 PM EST Office Visit [facility] [address] [place] [phone] Rash (Primary Dx); Acute nonintractable headache, unspecified headache type; Primary hypertension 08/04/2024 Travel 08/04/2024 Telephone [facility] [address] [place] [phone] Name, MD Matt Nurse Triage 07/28/2024 Orders Only GENERIC EXTERNAL DATA DEPARTMENT Provider, Generic External Data 07/22/2024 Refill [facility] [address] [place] [phone] Michelle Han MD Insomnia, unspecified type 06/22/2024 Telephone [facility] [address] [place] [address] Matt Wu MD Med Refill 06/22/2024 Refill [facility] [address] [place] [address] Matt Wu MD Insomnia, unspecified type 06/18/2024 Refill [facility] [address] [place] [address] Matt Wu MD Essential hypertension 06/17/2024 Orders Only GENERIC EXTERNAL DATA DEPARTMENT Provider, Generic External Data 06/16/2024 Refill [facility] [address] [place] [phone] Matt Wu MD Essential hypertension 05/31/2024 Orders Only GENERIC EXTERNAL DATA DEPARTMENT Provider, Generic External Data 05/27/2024 Orders Only [facility] [address] [place] [phone] Matt Wu MD 05/20/2024 Refill [facility] [address] [place] [phone] Matt Wu MD Insomnia, unspecified type 05/20/2024 Refill [facility] [address] [place] [phone] Matt Wu MD Insomnia, unspecified type 05/19/2024 Refill [facility] [address] [place] [phone] Matt Wu MD from Last 3 Months Immunizations Name Administration [...] 20 08/04/2024 3:26 PM EST Oxygen Saturation 98% 04/14/2024 2:08 PM EDT Inhaled Oxygen Concentration - - Weight 95.3 kg (210 lb) 08/04/2024 3:26 PM EST Height 160 cm (5' 3 ) 03/22/2024 3:08 PM EDT Body Mass Index 37.2 03/22/2024 3:08 PM EDT Plan of Treatment Upcoming Encounters Date Type Department Care Team (Late st Contact Info) Description 08/15/2024 2:30 PM EST Office Visit [facility] [address] [facility] [place] [address] Name, MD Matt [address] [facility] [place] [address] Health Maintenance Due Date Last Done Comments CT Colonography 1970 Colonoscopy 1970 Colorectal Cancer Screening 1970 FIT DNA/Cologuard 1970 FIT 1970 FOBT 1970 Sigmoidoscopy 1970 Eye Exam 1980 Alcohol/Substance Use Screening 1982 Hepatitis A Vaccines (1 of 2 - Risk 2-dose series) 1989 Pneumococcal Vaccine: 50+ Years (1 of 2 - PCV) 1989 Zoster Vaccines (1 of 2) 1989 COVID-19 Vaccine (3 - Moderna risk series) 02/15/2021 01/18/2021, 12/21/2020 Influenza Vaccine (#1) 2024 Diabetes: Hemoglobin A1C 06/22/2024 024, 07/08/2023, 01/05/2023, Additional history exists Depression Screening 09/06/2024 09/07/2023, 09/07/19 Diabetes: Urine Protein Screening 09/08/2024 09/09/2023, 07/08/2023, 03/24/2022 SDOH Screening 12/17/2024 12/18/2023 Diabetes: Foot Exam 03/22/2025 03/22/2024, 03/22/2024, 03/22/2024, Additional history exists Mammogram 05/27/2025 05/27/2024, 04/16, 05/04/2023, Additional history exists Lipid Panel 06/17/2025 06/17/2024, 09/09/2023 Tobacco Screening 08/04/2025 08/04/2024 Cervical Cancer Screening 05/17/2026 HPV/Cotest 05/17/2026 05/17/2021 [...] Procedure Name Priority Date/Time Associated Diagnosis Comments HEMATOXYLIN AND EOSIN STAIN Routine 07/28/2024 10:26 AM EST GLUCOSE, WHOLE BLOOD Routine 07/28/2024 9:36 AM EST LIPID PANEL, STANDARD Routine 06/17/2024 2:09 PM [...] Recently Relevant to Health Maintenance Results * Hematoxylin and Eosin Stain (07/28/2024 10:26 AM EST) 07/28/2024 10:2 6 AM EST 07/28/2024 11:14 AM EST [facility] - 08/02/2024 3:41 PM EST ----- ------- Name: Farrah Yancey ?Age/Sex: 54/F ? : 1970 Unit#: [id number] ?? Attend Dr: Marilyn Reddy MD ?Re07/28/24 ?Status: DEP SDC ? Location: HO.SSS ?Disch: ? ----- ------- SPEC : [id number] ?RECD: 07/28/24-4 ? STATUS: ??SOUT ? REQ NUM: [id number] ? SARTHAK: 07/28/24-1026 ? SUBM DR: Marilyn Reddy MD ? ENTERED: ??07/28/24-1122 ?SP TYPE: Surgical ? OTHR DR: Name,Matt APPIAH ? ORDERED: ??HE Stain/15, Gross Micro L4/5, IHC, Special st. 2/3, H. pylori, AB/PAS/3 ? Diagnosis ?? A. ??Duodenum, biopsy: ??Duodenal mucosa within normal limits. ? B. ??Stomach, biopsy: ??Antral-type and oxyntic mucosa with moderate chronic active ?? inflammation; no Helicobacter organisms seen. ? C. ??GE junction, biopsy: ?- Cardiofundic-type mucosa with moderate chronic inactive inflammation; no intestinal ?? metaplasia seen. ?- Squamous epithelium within normal limits. ? D. ??Esophagus, distal, biopsy: ??Squamous epithelium within normal limits; no inflammation ?? seen. ? E. ??Esophagus, proximal, biopsy: ??Squamous mucosa within normal limits; no inflammation ?? seen. ?Clinical History Pre-Op Dx: ??GERD Post-Op Dx: Gastritis, LAX LES ?Microscopic Description A-E. ??Microscopic sections examined. ??No metaplastic changes are seen, supported by AB/PAS stains (A, B and C); no Helicobacter organisms are seen, supported by H. pylori immunostain (B). ? Material Received ?? A. Duodenum ?? B. Stomach ?? C. GE junction ?? D. Distal esophagus ?? E. Proximal esophagus ? Gross Description Received in 5 parts. A. ??Received in formalin labeled ?duodenum? are 2 fragments of pink white soft tissue measuring 0.3 and 0.4 cm in greatest dimension which are wrapped in lens paper and entirely submitted for microscopic examination, 2 pieces in cassette A. ? CONTINUED ON NEXT PAGE ----- ------- Name: Farrah Yancey ?Age/Sex: 54/F ? : 1970 Unit#: [id number] ?? Attend Dr: Marilyn Reddy MD ?Re07/28/24 ?Status: DEP SDC ? Location: HO.SSS ?Disch: ? ----- ------- SPEC : [id number] ?RECD: 07/28/24-1114 ? STATUS: ??SOUT ? REQ NUM: [id number] ? SARTHAK: 07/28/24-1026 ? SUBM DR: Marilyn Reddy MD ? ENTERED: ??07/28/24-1123 ?SP TYPE: Surgical ? OTHR DR: Matt Wu MD ? ORDERED: ??HE Stain/15, Gross Micro L4/5, IHC, Special st. 2/3, H. pylori, AB/PAS/3 ? Gross Description ?(Continued) B. Received in formalin labeled ?stomach? are 2 fragments of rios-white soft tissue measuring 0.2 and 0.3 cm in greatest dimension which are wrapped in lens paper and entirely submitted for microscopic examination, 2 pieces in cassette B. C. Received in formalin labeled ?GE junction? is a fragment of rios- white soft tissue measuring 0.4 cm in greatest dimension which is wrapped in lens paper and entirely submitted for microscopic examination, 1 piece in cassette C. D. ??Received in formalin labeled ?distal esophagus? are 2 fragments of translucent, white soft tissue measuring 0.3 and 0.3 cm in greatest dimension which are wrapped in lens paper and entirely submitted for microscopic examination, 2 pieces in cassette D. E. Received in formalin labeled ?proximal esophagus? are 2 fragments of translucent, white soft tissue measuring 0.2 and 0.4 cm in greatest dimension which are wrapped in lens paper and entirely submitted for microscopic examination, 2 pieces in cassette E. ??[facility] Special studies ordered and performed: Immunostain for H. pylori on B; AB/PAS stains on A, B and C Copies To: ?? Marilyn Reddy MD ?? [facility] ?? [address] ?? [place] [address] ?? [phone] ?? Name,Matt APPIAH ?? [address] [facility] ?? [place] [address] ?? [phone] ----- ------- Signed (signature on file) Chris Hendrix MD 08/02/24 1541 ? ----- ------- ? END OF REPORT ? us Generic External Data Provider LAB BLOOD ORDERAB LES Final Result Performing Organization Address [facility] de Phone Number [facility] [address] [place] [address] [phone] * (ABNORMAL) Glucose, Whole Blood (07/28/2024 9:36 AM EST) Glucose, Whole Blood 133(H) 60 - 115 mg/dL [facility] Comment:METER #: [id number] 07/28/2024 9:36 AM EST 07/28/2024 9:40 AM EST Generic External Data Provider LAB BLOOD ORDERAB LES Final Result Performing Organization Address [facility] de Phone Number [facility] [address] [place] [address] [phone] * (ABNORMAL) Lipid Panel, Standard (06/17/2024 2:09 PM EST) Triglycerides 211(H) <150 mg/dL [facility] Comment:Desirable Triglyceri de: less than 150 mg/dLBorderline High Triglyceride 150-199 mg/dLHigh Triglyceride: 200-499 mg/dLVery High Triglyceride: greater than or equal to 5OO mg/dL Cholesterol 241(H) <200 mg/dL [facility] Comment:Desirable Cholestero l: less than 200 mg/dLBorderline High Cholesterol: 200-239 mg/dLHigh Cholesterol: greater than 239 mg/dL LDL Cholesterol Calculated 158(H) <100 mg/dL [facility] Comment:Desirable LDL: less than 100 mg/dLNear Optimal/Above Optimal LDL: 110- 129 mg/dLBorderline High LDL: 130-159 mg/dLHigh LDL: 160-189 mg/dLVery High LDL: greater than or equal to 190 mg/dL HDL Cholesterol 41 >40 mg/dL [facility] Comment:Desirable HDL: great er than 40 mg/dL Note: This HDL assay may give artificially low results in patients with liver disease. 06/17/2024 2:09 PM EST 06/17/2024 2:09 PM EST Generic External Data Provider LAB BLOOD ORDERAB LES Final Result Performing Organization Address [facility] Phone Number [facility] [address] [place] [address] [phone] * High Sensitivity Troponin I (05/31/2024 7:15 PM EST) Only the most recent of2 resultswithin the time period is included. TROPONIN I HIGH SENSITIVITY <2.7 <3.5 - 17.0 ng/L [facility] Comment:The Wang high sens itivity Troponin-I results should beused in conjunction with other diagnostic information suchas ECG, clinical observations and information, and patientsymptoms to aid in the diagnosis of WA. 05/31/2024 7:15 PM EST 05/31/2024 7:19 PM EST Generic External Data Provider LAB BLOOD ORDERAB LES Final Result Performing Organization Address [facility] Phone Number [facility] [address] [place] [phone] * XR Chest 1 View (05/31/2024 5:15 PM EST) Anatomical Region Laterality Modality Chest Radiographic Romi ging 05/31/2024 5:15 PM EST Narrative 05/31/2024 7:43 PM EST ? [facility] ?[address] ?[place] [address] ?XRay Report ? Signed ? Patient: Bc,Farrah ?MR#: [id number] ?? 3 ? : 1970 ?Acct:[id number] ? Age/Sex: 54 / F ?ADM Date: 12/17/24 ? Loc: HO.ED ? Attending Dr: ? Ordering Physician: Loretta Boogie MD ?? Date of Service: 05/31/24 ?? Procedure(s): XR chest 1V ?? Accession Number(s): [id number] ? cc: Loretta Boogie MD; Name,Matt APPIAH [...] ? Signed By: ?<Electronically signed by Juan Jeffery DO in OV> ? 05/31/24 1939 ? DD/ 1715 ? TD/TT: 05/31/24 1736 ? Records Administrator: JL ? Procedure Note Donrashida, Lenore - 05/31/2024 [place] [address] XRay Report Signed Patient: David Yancey#: [id number] 3 : 1970Acct:[id number] Age/Sex: 54 / FADM Date: 05/31/24 Loc: HO.ED Attending Dr: Ordering Physician: Loretta Boogie MD Date of Service: 05/31/24 Procedure(s): XR chest 1V Accession Number(s): [id number] cc: Loretta Boogie MD; Name,Matt APPIAH EXAMINATION: [...] Jeffery DO in OV> 05/31/24 1939 DD/ 171 TD/TT: 05/31/24 1736 Records Administrator: RUT [facility] External Provider IMG XR PROCEDURES Final Result * D Dimer High Sensitivity (05/31/2024 4:47 PM EST) [facility] D Dimer High Sensitivity <150 NG/ML [facility] Comment:D-DIMER HS REFERENCE RANGENote: Our [...] Provider LAB BLOOD ORDERAB LES Final Result [facility] [address] [place] [phone] * (ABNORMAL) CBC auto differential (05/31/2024 4:47 PM EST) Pathologist [facility] White Blood Count 11.9(H) 4.8 - 10.8 X10*3/uL [facility] Red Blood Count 5.40 4.20 - 5.50 X10*6/uL [facility] Hemoglobin 14.3 12.0 - 16.0 g/dl [facility] Hematocrit 44.9 37.0 - 47.0 % [facility] Mean Corpuscular Volume 83.1 80.0 - 98.0 fL [facility] Mean Corpuscular Hemoglobin 26.5(L) 27.0 - 33.0 pg [facility] Mean Corpuscular HGB Conc 31.8 31.0 - 35.0 g/dl [facility] Red Cell Distribution Width 14.2 11.0 - 16.0 % [facility] Platelet Count 319 160 - 400 X10*3/uL [facility] Mean Platelet Volume 9.8 9.4 - 12.3 fL [facility] Neutrophils Percent Auto 63.2 45 - 73 % [facility] Imm Gran Pct Auto 0.3 0.0 - 0.4 % [facility] Lymphocytes Percent Auto 26.1 20 - 40 % [facility] Monocytes Percent Auto 8.2 2 - 11 % [facility] Eosinophils Percent Auto 1.6 0 - 4 % [facility] Basophils Percent Auto 0.6 0 - 2 % [facility] NRBC Pct Auto 0.0 0.0 - 0.2 /100WBC [facility] Neutrophils Absolute Auto 7.5 2.0 - 8.3 x10*3/uL [facility] Imm Gran Abs Auto 0.04(H) 0.00 - 0.03 X10*3/uL [facility] Lymphocytes Absolute Auto 3.1 1.2 - 4.9 X10*3/uL [facility] Monocytes Absolute Auto 1.0 0.1 - 1.2 X10*3/uL [facility] Eosinophils Absolute Auto 0.2 0.0 - 0.4 X10*3/uL [facility] Basophils Absolute Auto 0.1 0.0 - 0.2 X10*3/uL [facility] NRBC Abs Auto 0.000 0.0 - 0.012 X10*3/uL [facility] 05/31/2024 4:47 PM EST 05/31/2024 4:49 PM EST us Generic External Data Provider LAB BLOOD ORDERAB LES Final Result [facility] [address] [place] [phone] * Prothrombin Time-INR (05/31/2024 4:47 PM EST) Pathologist [facility] Prothrombin Time 12.0 10.9 - 12.4 SEC [facility] INTERNATIONAL NORM RATIO 1.0 0.9 - 1.1 [facility] Comment:INTERNATIONAL NORMAL IZED RATIO (INR) [...] ORDERAB LES Final Result Performing Organization Address City/[facility]/ZIP Co de Phone Number [facility] [address] [place] [phone] * Magnesium (05/31/2024 4:46 PM EST) [facility] Magnesium 2.0 1.6 - 2.6 mg/dL [facility] 05/31/2024 4:46 PM EST 05/31/2024 4:49 PM EST Generic External Data Provider LAB BLOOD ORDERAB LES Final Result Performing Organization Address City/[facility]/ZIP Co de Phone Number [facility] [address] [place] [phone] * Lipase (05/31/2024 4:46 PM EST) Pathologist [facility] Lipase 31 8 - 78 U/L [facility] 05/31/2024 4:46 PM EST 05/31/2024 4:49 PM EST us Generic External Data Provider LAB BLOOD ORDERAB LES Final Result [facility] [address] [place] [address] [phone] * (ABNORMAL) Comprehensive Metabolic Panel (05/31/2024 4:46 PM EST) Sodium 142 135 - 145 mmol/L [facility] Potassium 3.8 3.3 - 5.1 mmol/L [facility] Chloride 106 96 - 108 mmol/L [facility] Carbon Dioxide 28 22 - 29 mmol/L [facility] Anion Gap 12 12 - 20 [facility] Urea Nitrogen (BUN) 15 9 - 16 mg/dL [facility] Creatinine, Serum 0.82 0.5 - 1.4 mg/dL [facility] Creatinine Clr Calc Pharmacy 86.5 [facility] Comment:Provided height and weight: 160.02 cm,96.162 kg.eGFR (calculated from the MDRD study equation) and eCrCl(calculated from the Cockcroft-Gault equation) are based ondifferent parameters and may not yield comparable results.If eCrCl result is absurd, please check patient'sheight/weight. Estimated Glomerular Filt Rate >60 [facility] Comment:Chronic Kidney Disea se: Estimated GFR < 60 mL/min/[id number] Kidney Disease: Estimated GFR < 15 mL/min/1.73m2 Glucose 116(H) 60 - 115 mg/dL [facility] Calcium 9.4 8.4 - 10.2 mg/dL [facility] Bilirubin, Total 0.9 0.0 - 1.0 mg/dL [facility] Aspartate Amino Transferase 38(H) 5 - 31 U/L [facility] Alanine Aminotransferase 38(H) 0 - 31 U/L [facility] Total Protein 7.9 6.5 - 8.0 g/dL [facility] Albumin Level 4.3 3.5 - 5.0 g/dL [facility] Alkaline Phosphatase 130(H) 39 - 117 U/L [facility] 05/31/2024 4:46 PM EST 05/31/2024 4:49 PM EST us Generic External Data Provider LAB BLOOD ORDERAB LES Final Result [facility] [address] [facility] [place] [address] [phone] * BI Mammogram Screening Tomosynthesis Bilateral (05/27/2024 1:45 PM EST) Anatomical Region Laterality Modality Breast Bilateral Mammography 05/27/2024 1:45 PM EST Narrative 06/06/2024 4:29 PM EST ? [facility] ? [address] ?[place] [address] ? Mammography Report ? Signed ? Patient: Bc,Farrah ?MR#: [id number] ?? 3 ? : 1970 ?Acct:[id number] ? Age/Sex: 54 / F ?ADM Date: 12/13/24 ? Loc: HO.MAMMO ? Attending Dr: Matt Name MD ? Ordering Physician: Name,Matt MD ?Results: 1Negative ? Date of Service: 12/13/24 ?Follow Up: 1 Year From Orig ?? inal Mammogram ? Procedure(s): MM tomosynthesis screening BI ?? Accession Number(s): [id number] ? cc: Name,Matt APPIAH ? EXAMINATION: ?? [...] ??06/06/2024 04:26 PM EST ? Dictated By: ?Jenni Woods DO ? Signed By: ?<Electronically signed by Jenni Woods, DO in OV> ? 06/06/24 1626 ? DD/ 1345 ? TD/TT: 05/27/24 1408 ? Records Administrator: ? Procedure Note Divya, Image - 06/06/2024 [facility] [address] [place] [address] [place] [address] Mammography Report Signed Patient: Dvaid Yancey#: [id number] 3 : 1970Acct:[id number] Age/Sex: 54 / FADM Date: 05/27/24 Loc: HO.MAMMO Attending DrViji Wu MD Ordering Physician: Matt Wuesults: 1Negative Date of Service: 05/27/24Follow Up: 1 Year From Orig ina Mammogram Procedure(s): MM tomosynthesis screening BI Accession Number(s): [id number] cc: Matt Wu MD EXAMINATION: MM SCREENING [...] 06/06/24 1626 DD/ 1345 TD/TT: 05/27/24 1408 Records Administrator: us Matt Wu MD IMG BI PROCEDURES Final Result * (ABNORMAL) POCT HGB A1C (03/22/2024 3:10 PM EDT) Hemoglobin A1C 6.6(A) 4.0 - 6.0 % QC Media Lot # [id number] Lot# Expiration Date [id number] Blood 03/22/2024 3:10 PM EDT us Matt Wu MD POINT OF CARE TEST ENTER/EDIT OR DERABLES Final Result * HIV-1/2 Antigen and Antibodies, Fourth Generation, with Reflexes (12/21/2023 12:36 PM EDT) HIV AB/AG Nonreactive Nonreactive [facility] Comment:HIV-1 p24 Ag and/or HIV-1/HIV-2 Ab not detected.A test result that is nonreactive does not exclude thepossibility of exposure to or infection with HIV-1 and/orHIV-2. Nonreactive results in this assay for individualswith prior exposure to HIV-1 and/or HIV-2 may be due toantigen and antibody levels that are below the limit ofdetection of this assay.The BroadchoiceniNeomend HIV Ag/Ab Combo assay result andsupplemental assay results should be interpreted inconjunction with the patient's clinical presentation,history and other laboratory results. If the results areinconsistent with clinical evidence, additional testing issuggested to confirm the result. Blood Venous blood specimen / Unknown 12/21/2023 12:36 PM EDT 12/21/2023 12:36 PM EDT us Matt Wu MD LAB BLOOD ORDERABLES Final Resul t Performing Organization Address [facility] Co de Phone Number [facility] [address] [place] [phone] * Albumin, Random Urine W/Creatinine (09/09/2023 12:24 PM EDT) Creatinine, Urine 120.92 mg/dL [facility] Microalbumin Urine 6.0 mg/L [facility] Microalbum Creatinine Ratio Ur 4.9 <30 ug/mg cr [facility] Comment:Albumin/Creatinine R atio Reference Ranges: Normal: < 30 ug/mg creatinine Microalbuminuria: 30 - 300 ug/mg creatinineClinical Albuminuria: > 300 ug/mg creatinine Urine (Urine, Random) 09/09/2023 12:24 PM EDT 09/09/2023 2:10 PM EDT us Matt Wu MD LAB URINE ORDERABLES Final Resul t Performing Organization Address [facility] Co de Phone Number [facility] [address] [place] [phone] * Hepatitis Panel, General (05/26/2022 4:23 PM EST) Hepatitis A IgM Nonreactive Nonreactive [facility] Comment:IgM antibodies to TORRES V not detected; does not exclude earlyacute or recovered HAV infection. ~Hepatitis B Surface Antibody NONREACTIVE Nonreactive [facility] Comment:Nonreactive: < 8.00 mIU/mL Hepatitis B Core Antibody Nonreactive Nonreactive [facility] Hepatitis C Antibody Nonreactive Nonreactive [facility] Comment:Antibodies to HCV no t detected; does not exclude early acuteHCV infection. Hepatitis B Surface Antigen Negative Negative [facility] 05/26/2022 4:23 PM EST 05/26/2022 4:23 PM EST [facility] External Provider LAB BLO OD ORDERABLES Final Result [facility] [address] [place] [address] [phone] * Hm Pap Smear (05/17/2021) Pap Negative for intraephithelial lesion or malignancy Negative for intraephithelial lesion or malignancy, Other HPV Not Detected Undetected, Indeterminate, Quantitative, Not Detected Historical Provider HEALTH MAINTENANCE Final Result from Last 3 Months or Most Recently Relevant to Health Maintenance Insurance [employer] Care Teams Teacher Vocational Training Relationship Specialty Start Date End Date Name, MD Matt [address] [place] [address] PCP - General Family Medicine 02/21/22 Estephanie Tan Senior EngineerPaddle Dyeing Machine Operator 11/24/23
--- OUTSIDE RECORDS SUMMARY | 2024-08-04 16:48 | XMS_ITS | Encounter Summary ---
Author Organization [employer] Address [address] [facility] 7t [place] [address] Care Team Providers Care Sales Assistant Institutional Sales Name Role Phone Name, Matt APPIAH Primary Care Provider [phone] Encounter Details Date Type Department Care Team (Late st Contact Info) Description 07/28/2024 Orders Only GENERIC EXTERNAL DATA DEPARTMENT [...] Office Visit [facility] [address] [place], [place] [phone] Name, MD Matt [address] [place] [address] documented as of this encounter Procedures Procedure Name Priority Date/Time Associated Diagnosis Comments HEMATOXYLIN AND EOSIN STAIN Routine 07/28/2024 10:26 AM EST GLUCOSE, WHOLE BLOOD Routine 07/28/2024 9:36 AM EST documented in this encounter Results * Hematoxylin and Eosin Stain (07/28/2024 10:26 AM EST) 07/28/2024 10:2 6 AM EST 07/28/2024 11:14 AM EST [facility] - 08/02/2024 3:41 PM EST ----- ------- Name: Farrah Yancey ?Age/Sex: 54/F ? : 1970 Unit#: [id number] ?? Attend Dr: Marilyn Reddy MD ?Re07/28/24 ?Status: DEP SDC ? Location: HO.SSS ?Disch: ? ----- ------- SPEC : [id number] ?RECD: 07/28/24-1114 ? STATUS: ??SOUT ? REQ NUM: [id number] ? SARTHAK: 07/28/24-1026 ? SUBM DR: Marilyn [...] Yancey ?Age/Sex: 54/F ? : 1970 Unit#: [id number] ?? Attend Dr: Marilyn Reddy MD ?Re07/28/24 ?Status: DEP SDC ? Location: HO.SSS ?Disch: ? ----- ------- SPEC : [id number] ?RECD: 07/28/24 ? STATUS: ??SOUT ? REQ NUM: [id number] ? SARTHAK: 07/28/24-6 ? SUBM DR: Marilyn Reddy MD ? ENTERED: ??07/28/24 ?SP TYPE: Surgical ? OTHR DR: Matt [...] microscopic examination, 2 pieces in cassette E. ??[facility] Special studies ordered and performed: Immunostain for H. pylori on B; AB/PAS stains on A, B and C Copies To: ?? Marilyn Reddy MD ?? [facility] ?? [address] ?? [place] [address] ?? [phone] ?? Name,Matt APPIAH ?? [address] [facility] ?? [place] [address] ?? [phone] ----- ------- Signed (signature on file) Chris Hendrix MD 08/02/24 1541 ? ----- ------- ? END OF REPORT ? us Generic External Data Provider LAB BLOOD ORDERAB LES Final Result Performing Organization Address [facility] Co de Phone Number [facility] [address] [place] [phone] * (ABNORMAL) Glucose, Whole Blood (07/28/2024 9:36 AM EST) Glucose, Whole Blood 133(H) 60 - 115 mg/dL [facility] Comment:METER #: [id number] 07/28/2024 9:36 AM EST 07/28/2024 9:40 AM EST Generic External Data Provider LAB BLOOD ORDERAB LES Final Result Performing Organization Address [facility] de Phone Number [facility] [address] [place] [phone] documented in this encounter Visit Diagnoses Not on filedocumented in this encounter Additional Health Concerns Assessment Noted Time PHQ-9 Depression Total Score: 0 09/07/19 24 3:15 PM EDT documented as of this encounter Care Teams Sales Assistant Institutional Sales Relationship Specialty Start Date End Date Name, MD Matt [address] [place] [address] PCP - General Family Medicine 02/21/22 Estephanie Tan Senior Informatica DeveloperSpare Hand Carding 11/24/23 documented as of this encounter
--- OUTSIDE RECORDS SUMMARY | 2024-08-04 16:48 | XMS_ITS | Encounter Summary ---
Author Organization [employer] Address [address] [facility] 7[address] [place] [address] Care Team Providers Care Office Machine Punch Operator Name Role Phone Name, Matt APPIAH Primary Care Provider [phone] Reason for Visit * Reason Onset Date Comments Nurse Triage 08/04/2024 Encounter Details Date Type Department Care Team ([facility] st Contact Info) Description 08/04/2024 Telephone [facility] [address] [place] [address] Name, MD Matt [address] [place] [address] Nurse Triage Social History Tobacco Use Types Packs/Day Years [...] encounter Miscellaneous Notes * Telephone Encounter - Elvi Benavides RN - 08/04/2024 11:56 AM EST No bingo worker needed as this designer/writer speaks Angolan. Call returned to Farrah Yancey to triage below. Reports having left fourth toe pain 2 days ago. Per pt having bruising on that toe. IS able to feel toe. Per pt no pain today. Per pt having bruising on left elbow. No injury. No pain at site. Denies any swelling. Per pt had an endoscopy on 07/28/24 with biopsy. Pt also having left sided neck pain.NO rendess or swelling at that site. Pt on la daily baby as;irin. Pt advised of disposition, agreesto seek WIC today. Reviewed WIC operating hours and that wait times vary. Reviewed home care advise, ER precautions and reasons to call back. Protocol Used: Toe Pain (Adult) Protocol-Based Disposition: Go to ED/UCC Now (or to Office with PCP Approval) Positive Triage Question: * Purple or black skin on toe (Exception: Person remembers bruising the toe from an injury.) * All higher-acuity triage questions were negative Care Advice Discussed: * Reasons To Call Back - You become worse * Telephone Encounter - Theodore Childs - 08/04/2024 11:38 AM EST Symptoms: Rash or Redness on One Body Area Only, Foot or Ankle Swelling Outcome: Talk to a nurse or provider within 15 minutes Reason: Dark blood red spots (not pink) The caller accepted this outcome. documented in this encounter Plan of Treatment Upcoming Encounters Date Type Department Care Team (Late st Contact Info) Description 08/15/2024 2:30 PM EST Office Visit [facility] [address] [place] [address] Name, MD Matt [address] [place] [address] documented as of this encounter Visit Diagnoses Not on filedocumented in this encounter Additional Health Concerns Assessment Noted Time PHQ-9 Depression Total Score: 0 09/07/19 3:15 PM EDT documented as of this encounter Care Teams Office Machine Punch Operator Relationship Specialty Start Date End Date Name, MD Matt [address] [place] [address] PCP - General Family Medicine 02/21/22 Estephanie Tan Motel OperatorSocial Studies Teacher 11/24/23 documented as of this encounter
--- OUTSIDE RECORDS SUMMARY | 2024-08-04 16:48 | XMS_ITS | Encounter Summary ---
Author Organization [employer] Address [address] [facility] 7t [place] [address] Care Team Providers Care Software Integrator Name Role Phone Name, Matt APPIAH Primary Care Provider [phone] Reason for Visit * Reason Onset Date Comments Care Coordination 11/24/2023 [id number] a ssessment Encounter Details Date Type Department Care Team ([facility] st Contact Info) Description 11/24/2023 Telephone [facility] [address] [place] [address] Estephanie Tan, RN Care Coordination ([id number]-[id number] assessment) Social History Tobacco Use Types Packs/Day [...] the past 12 months, has t he [employer], [employer], oil or water [employer] threatened to shut off services in your [...] Member is a 53 year old female, French speaking. Patient is alert andoriented x 3. [...] for her psoriasis. Reports she went to [facility] ER on 11/04/2023 for chest pain, dizziness, work up negative, ?Patient had follow up ED appointment with PCP11/06/2023. Patient stopped taking statin muscle discomfort. This was changed to Zetia 10mg daily. Also placed on Baclophen 10mg 2 times a day. Next PCP appointment is 12/18/2023. Care management program explained and contact information given. Patient verbalizes understanding, and able to repeat back to telegraphic typewriter mechanic. A follow up call will be placed [...] Description 08/15/2024 2:30 PM EST Office Visit [facility] [address] [place] [phone] Name, MD Matt [address] [place] [address] documented as of this encounter Visit Diagnoses Not on filedocumented in this encounter Additional Health Concerns Assessment Noted Time PHQ-9 Depression Total Score: 0 09/07/19 3:15 PM EDT documented as of this encounter Care Teams Software Integrator Relationship Specialty Start Date End Date Name, MD Matt [address] [place] [address] PCP - General Family Medicine 02/21/22 Estephanie Tan Supervisor LathingPicker/Puller 11/24/23 documented as of this encounter
--- OUTSIDE RECORDS SUMMARY | 2024-08-04 16:48 | XMS_ITS | Clinical Summary ---
Author Organization [facility] Address [address] [place] [address] Phone Care Team Providers Care Senior Quality Control Inspector Name Role Phone Name, Matt APPIAH Primary Care Provider [phone] Allergies Active Allergy Reactions Criticality Noted Date [...] Calcium 08/07/2011 Myalgia Terbinafine Rash 10/19/2015 Medications ciclopirox (LOPROX) 0.77 % cream Apply to big toes and left 3rd toe once daily x 1 month 8 Active clobetasoL 0.05 % shampoo Apply 1 Applicator topically every 48 hours. 8 Active cholecalciferol (VITAMIN D-3) 50 mcg (2,000 unit) capsule Take 1 Cap by mouth daily. 0 Active fluticasone propionate (FLONASE) 50 mcg/actuation nasal spray 2 Sprays by Nasal route daily. 0 Active hydroCHLOROthiazi de (HYDRODIURIL) 25 mg tablet Take 1 tablet (25 mg total) by mouth 1 (one) time each day. 0 Active omeprazole (PriLOSEC) [address] capsule Take 1 Cap by mouth daily. 0 Active loratadine (CLARITIN) 10 mg tablet Take 1 tablet (10 mg total) by mouth 1 (one) time each day. 0 Active bismuth subsalicylate 262 mg tablet Take 2 Tabs by mouth 4 times daily as needed for Other (diarrhea). 0 Active aspirin 81 mg EC tablet Take 1 tablet (81 mg total) by mouth 1 (one) time each day. 9 Active albuterol HFA (PROAIR HFA ; PROVENTIL HFA ; VENTOLIN HFA) 90 mcg/actuation inhaler Inhale 2 Puffs into the lungs every 4 hours as needed for Wheezing or Shortness of Breath. 9 Active blood-glucose meter kit For E11.49 to check blood sugar twice per day. Once prior to breakfast and once prior to dinner 0 Active blood sugar diagnostic (FreeStyle Lite Strips) test strip USE TO TEST FINGER STICK BLOOD SUGAR 2 TO 3 X DAILY DIRECTED 0 Active EASY COMFORT LANCETS MISC Apply 1 Each topically 3 times daily. 0 Active isopropyl alcohol-benzocain e 70-6 % pads, medicated USE 3 (THREE) TIMES A DAY 8 Active oxyCODONE (ROXICODONE) 5 mg immediate release tablet Si-2 tabs PO Q12h prn severe pain Sent to pharmacy as: oxyCODONE HCl 5 MG Oral Tablet (ROXICODONE) Earliest Fill Date: 03/04/2024 Active baclofen (LIORESAL) 10 mg tablet TAKE 1 TABLET BY MOUTH two (2) times a day 4 Active budesonide-formot Adelia (SYMBICORT) 160-4.5 mcg/actuation inhaler INHALE JOHANN DOS STALIN [place]ICK AL D A 2 Active cetirizine (ZyrTEC) 10 mg tablet Take 1 tablet (10 mg total) by mouth 1 (one) time each day in the morning. 4 Active clindamycin (CLEOCIN T) 1 % lotion APLIQUE CAPA BEHZAD EL AREA AFECTADA TODOS LOS HAM 3 Active ezetimibe (ZETIA) 10 mg tablet Take 1 tablet (10 mg total) by mouth daily. 4 025 Active fluconazole (DIFLUCAN) 150 mg tablet Take 1 tablet (150 mg total) by mouth. 4 Active Advair HFA 230-21 mcg/actuation inhaler INHALE 2 PUFF BY MOUTH EVERY TWELVE HOURS 4 Active Procto-Med HC 2.5 % rectal cream APPLY RECTALLY two (2) times a day FOR 2 WEEKS, burns FOR 2 WEEK THEN USE FOR 2 WEEK 4 Active ipratropium (ATROVENT) 21 mcg (0.03 %) nasal spray Administer 2 sprays into each nostril every 12 hours. 4 025 Active tiZANidine (ZANAFLEX) 4 mg capsule Take 1 capsule (4 mg total) by mouth. Active esomeprazole (NexIUM) [address] capsule TAKE 1 CAPSULE BY MOUTH two (2) times a day 4 Active Synjardy 12.5-500 mg tablet TAKE 1 TABLET BY MOUTH two (2) times a day (WITH BREAKFAST, AND WITH DINNER) 4 Active carvediloL (COREG) 6.25 mg tablet TAKE 1 TABLET BY MOUTH two (2) times a day WITH A MEAL Active zolpidem (AMBIEN) 10 mg tablet TAKE 1 TABLET BY MOUTH EVERY NIGHT AT BEDTIME FOR SLEEP 5 Active Breo Ellipta 200-25 mcg/dose inhaler Inhale 1 puff by mouth 1 (one) time each day. 4 Active ketoconazole (NIZORAL) 2 % shampoo APPLY TO THE AFFECTED AREA 2 X EACH WEEK. apply on scalp. Leave on for 5 minutes then rinse off 4 Active clotrimazole (LOTRIMIN) 1 % cream Apply topically 2 (two) times a day. 30 g 3 5 025 Active Problems Problem Noted Date Diagnosed Date [...] Kari esophagitis 10/08/2018 Overview (03/16/2024): F/u [facility] Helicobacter pylori (H. 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 Hemorrhoids 06/04/2017 Overview (03/16/2024): Internal & external Nonalcoholic steatohepatitis (HURD) 06/04/2017 Insomnia 08/23/2015 Carpal tunnel syndrome 12/25/2014 Overview (03/16/2024): Bilateral - negative EMG at [place] 2014 Migraine 12/25/2014 Old GA (myocardial infarction) 12/25/2014 Overview (03/16/2024): 1998/ Dr [...] PM EST Office Visit Orthopedic Surgery - [address] [address] Smooth Sharp, DPM Dermatophytosis of nail (Primary Dx); Tinea pedis of both feet from Last 3 Months Immunizations Name Administration Dates Next Due Hepatitis B (Abtvmid-B-Xihyq , Recombivax HB-Adult) 19yo and older 03/13/2009,02/16/2008,01/11/2008 [...] diabetes mellitus wit h neurological manifestations, controlled (CMS/HCC) 08/07/2011 DX:Type 2 diabetes mellitus with neurological manifestations, controlled ([facility]) Tricuspid regurgitation 12/25/2014 DX:Tricu spid regurgitation; COMMENT: Mild tricuspid / mild pulmonic Old GA (myocardial infarction) 12/25/2014 D X:Old GA (myocardial infarction); COMMENT: 1998/ Dr Perez Hyperlipidemia [...] Kari esophagitis (CMS/HCC) 10/08/2018 DX :Kari esophagitis ([facility]); COMMENT: F/u [facility] Helicobacter pylori (H. [...] drink = 0.6 oz pur e alcohol) Comments Unknown Sex and Gender Information Value Date Recorded Sex Assigned at Not on file Legal Sex Female 6:18 PM EST Gender Identity Not on file Sexual Orientation Not on file Obstetrics History Last Filed [...] PM EDT Office Visit Orthopedic Surgery - [place] [address] [phone] Smooth Sharp, DPM [address] [address] Health Maintenance Due Date Last Done Comments Breast Cancer Screening 1970 Diabetes: Annual Foot Exam 1980 Diabetes: Annual Retina Eye Exam 1980 Pneumococcal Vaccine: 50+ Years (1 of 2 - PCV) 1989 Pneumococcal Vaccine: Pediatrics (0 to 5 Years) and At-Risk Patients (6 to 64 Years) (1 of 2 - PCV) 1989 Zoster Vaccines (1 of 2) 2020 COVID-19 [...] patient's age to complete this topic Meningococcal B Vacine Aged Out No lo nger eligible based on patient's age to complete this topic RSV Immunization Patients Under 20 months Aged Out No longer eligible b ased on patient's age to complete this topic Varicella Vaccines Aged Out No longer eligible based on patient's age to complete this topic Procedures Procedure Name Priority Date/Time Associated Diagnosis Comments ANNUAL BMP BLOOD TEST Routine 08/27/2019 HEMOGLOBIN A1C Routine 08/27/2019 HPV Routine 05/19/2019 URINE ALBUMIN CREATININE RATIO Routine 02/18/2019 LIPID PANEL Routine 02/18/2019 COLONOSCOPY Routine 09/24/2015 from Last 3 Months or Most Recently Relevant to Health Maintenance Results * Annual BMP Blood Test (08/27/2019) [facility] Annual BMP Blood Test abstracted Result [facility] Provider HEALTH MAINTENANCE Final Result * (ABNORMAL) Hemoglobin A1c (08/27/2019) [facility] Hemoglobin A1C 6.6(A) <=6.5 % Blood Venous blood specimen / Unknown Result [facility] Provider LAB BLOOD ORDERABLES Behzad l Result * Cervical Cancer Screening: HPV (05/19/2019) [facility] Cervical Cancer Screening: HPV negative, abstracted Result [facility] Provider HEALTH MAINTENANCE Final Result * Urine Albumin Creatinine Ratio (02/18/2019) [facility] Urine Albumin Creatinine Ratio abstracted Result [facility] Provider HEALTH MAINTENANCE Final Result * (ABNORMAL) Lipid panel (02/18/2019) [facility] LDL/HDL Ratio 7(A) 0 - 4 Triglycerides 443(A) 0 - 150 mg/dL Cholesterol 185 0 - 200 mg/dL HDL 27(A) >=40 mg/dL LDL Cholesterol 70 0 - 100 mg/dL Blood Venous blood specimen / Unknown Result [facility] Provider LAB BLOOD ORDERABLES Behzad l Result * Colonoscopy (09/24/2015) [facility] Colonoscopy no interpretation , abstracted Anatomical Region Laterality Modality Other [facility] Provider HEALTH MAINTENANCE Final Result from Last 3 Months or Most Recently Relevant to Health Maintenance Insurance MEDICAID - [place] Care Teams Senior Quality Control Inspector Relationship Specialty Start Date End Date Name, MD Matt 4 [facility] [place] PCP - General 07/08/22
--- OUTSIDE RECORDS SUMMARY | 2024-08-04 16:48 | XMS_ITS | Encounter Summary ---
Author Organization [employer] Address [address] [facility] 7t [place] [address] Care Team Providers Care C Architect Name Role Phone Name, Matt APPIAH Primary Care Provider [phone] Reason for Visit * Reason Comments Med Refill Encounter Details Date Type Department Care Team ([facility] st Contact Info) Description 07/22/2024 Refill [facility] [address] [place], [place] [phone] Michelle Han MD [address] [place], [place] [phone] Insomnia, unspecified type Social History Tobacco Use [...] Description 08/15/2024 2:30 PM EST Office Visit [facility] [address] [place] [phone] Name, MD Matt [address] [place] [address] documented as of this encounter Visit Diagnoses Diagnosis Insomnia, unspecified type documented in this encounter Additional Health Concerns Assessment Noted Time PHQ-9 Depression Total Score: 0 09/07/19 24 3:15 PM EDT documented as of this encounter Care Teams C Architect Relationship Specialty Start Date End Date Name, MD Matt [address] [place] [address] PCP - General Family Medicine 02/21/22 Estephanie Tan Supervisor Delivery DepartmentAbrasive Band Winder 11/24/23 documented as of this encounter
--- OUTSIDE RECORDS SUMMARY | 2024-08-04 16:48 | XMS_ITS | Encounter Summary ---
Author Organization [employer] Address [address] [facility] 7t [place] [address] Care Team Providers Care Bag Sorter Name Role Phone Name, Matt APPIAH Primary Care Provider [phone] Encounter Details Date Type Department Care Team (Latest Contact Info) Description 08/04/2024 Travel Social History Tobacco Use Types Packs/Day Years [...] Description 08/15/2024 2:30 PM EST Office Visit [facility] [address] [place] [address] Name, MD Matt [address] [place] [address] documented as of this encounter Visit Diagnoses Not on filedocumented in this encounter Additional Health Concerns Assessment Noted Time PHQ-9 Depression Total Score: 0 09/07/19 24 3:15 PM EDT documented as of this encounter Care Teams Bag Sorter Relationship Specialty Start Date End Date Name, MD Matt [address] [place] [address] PCP - General Family Medicine 02/21/22 Estephanie Tan Steam Train DriverSba Underwriter 11/24/23 documented as of this encounter
--- OUTSIDE RECORDS SUMMARY | 2024-08-04 16:48 | XMS_ITS | Encounter Summary ---
Author Organization [employer] Address [address] [facility] 7t [place] [address] Care Team Providers Care Brand Protection Manager Name Role Phone Name, Matt APPIAH Primary Care Provider [phone] Reason for Visit * Reason Onset Date Comments Durable Medical Equipment 04/06/2024 Encounter Details Date Type Department Care Team (Late st Contact Info) Description 04/06/2024 Telephone [facility] MEDICINE [address] [place], [place] [phone] Name, MD Matt [address] [place] [address] Durable Medical Equipment Social History Tobacco Use [...] Description 08/15/2024 2:30 PM EST Office Visit [facility] MEDICINE [address] [place] [address] Name, MD Matt [address] [place] [address] documented as of this encounter Visit Diagnoses Not on filedocumented in this encounter Additional Health Concerns Assessment Noted Time PHQ-9 Depression Total Score: 0 09/07/19 24 3:15 PM EDT documented as of this encounter Care Teams Brand Protection Manager Relationship Specialty Start Date End Date Name, MD Matt [address] [place], [place] [phone] PCP - General Family Medicine 02/21/22 Estephanie Tan Pr ManagerDoorshaker 11/24/23 documented as of this encounter
--- OUTSIDE RECORDS SUMMARY | 2024-08-04 16:48 | XMS_ITS | Encounter Summary ---
Author Organization [employer] Address [address] [facility] 7t [place] [address] Care Team Providers Care Information Analyst Name Role Phone Name, Matt APPIAH Primary Care Provider [phone] Reason for Visit * Reason Onset Date Comments Med Refill 06/22/2024 Encounter Details Date Type Department Care Team (Late st Contact Info) Description 06/22/2024 Telephone [facility] MEDICINE [address] [place] [address] Name, MD Matt [address] [place] [address] Med Refill Social History Tobacco Use Types [...] 10 MG tablet To be sent to: [facility] - [place], [place] - [id number] - [place], [place] - [address] documented in this encounter Plan of Treatment Upcoming Encounters Date Type Department Care Team (Late st Contact Info) Description 08/15/2024 2:30 PM EST Office Visit [facility] MEDICINE [address] [place] [address] NameMatt MD [address] [place] [address] documented as of this encounter Visit Diagnoses Not on filedocumented in this encounter Additional Health Concerns Assessment Noted Time PHQ-9 Depression Total Score: 0 09/07/19 24 3:15 PM EDT documented as of this encounter Care Teams Information Analyst Relationship Specialty Start Date End Date NameMatt MD [address] [place] [address] PCP - General Family Medicine 02/21/22 Estephanie Tan Medical SociologistLace Mender 11/24/23 documented as of this encounter
--- OUTSIDE RECORDS SUMMARY | 2024-08-04 16:48 | XMS_ITS | Data Portability ---
Author Organization [place] - [facility], Allergy Address [address] [place] [address] Care Team Providers Care Marionette Performer Name Role Phone YOLANDA VANEGAS Referring Provider [phone] Assessment Encounter Date Assessment Date Assessment LastModified [...] for amplification. Recommend she follow up with [facility], and discussed hearing aids would help [...] Organization Details Recorded Time Dizziness and giddiness 893709106 Active 2017 Dizziness and giddiness ; Note: Date Diagnosed : 02/11/2018 2:44 PM (R42) Not Available [facility] 4 03:04:54 Sensorine ural hearing loss of bilateral ears 388469014 Active 2020 Sensorine ural hearing loss, bilateral ; Note: Date Diagnosed : 01/10/2021 2:50 PM (H90.3) Not Available [facility] 4 03:04:55 Headache 26080686 Active 2017 Headache, unspecifi ed; Note: Changed from R51 to R51.9 (07/19/2021 2:06 PM) , Date Diagnosed : 02/11/2018 2:44 PM (R51) Not Available [facility] 4 03:04:55 Migraine 45889436 Active 2020 Other migraine, not intractab le, without status migrainos us; Note: Date Diagnosed : 1 4:10 PM (G43.809) Not Available [facility] 4 03:04:56 Gastroeso phageal reflux disease without esophagit is 657917970 Active 2017 Gastro-es ophageal reflux disease without esophagit is; Note: Date Diagnosed : 03/05/2018 1:19 PM (K21.9) Not Available [facility] 4 03:04:53 Cough 86539983 Active 2017 Cough; Note: Date Diagnosed : 03/05/2018 1:16 PM (R05) Not Available [facility] 4 03:04:55 Referred otalgia of left ear 24770328793 88321 Active 2023 MARISSA CARCAMO PA-C [facility] [place],[facility] [address], [facility] [place] [place], [address] , [facility] - [facility] 4 12:01:45 Bilateral tinnitus 39965421153 02 Active 2023 MARISSA CARCAMO PA-C [address] [facility] [place],[facility] 100, [facility] [place] [place], [address] , [place] - [facility] 4 12:01:52 Problem Notes None recorded. Procedures Surgical History Date Name Laterality Status Provider Name and Address Organization Details Recorded Time 024 Air & Speech Audio with Tymps (54922, 37635 & 56392) completed SHAHLA SLOAN 100 [facility] 100, [place], [address], [facility] - [facility] 05/27/2024 11:03:21 hemorrhoidectomy completed Mica Horner [place] - [facility] 05/27/2024 10:56:11 Appendectomy completed Mica Horner [place] - [facility] 05/27/2024 10:56:15 Imaging Results Imaging Date Name [...] Name and Address Organization Details Recorded Time 60530 gabapenti n medicatio n other Not available Not available 10/27/2023 18073 RxNorm React ion: unkno wn, unspe cifie d;; Not Available [facility] 4 00:48:25 17354 terbinafi ne medicatio n other Not available Not available 10/27/2023 83091 RxNorm React ion: unkno wn, unspe cifie d;; Not Available [facility] 4 00:48:25 65572 Lipitor medicatio n other Not available Not available 10/27/2023 20159 5 RxNorm React ion: unkno wn, unspe cifie d;; Not Available [facility] 4 00:48:25 90755 Crestor medicatio n other Not available Not available 10/27/2023 90699 4 RxNorm React ion: unkno wn, unspe cifie d;; Not Available [facility] 4 00:48:34 87600 sodium medicatio n other Not available Not available 10/27/2023 9853 RxNorm React ion: unkno wn, unspe cifie d;; Not Available [facility] 4 00:48:41 17118 Biaxin medicatio n other Not available Not available 10/27/2023 41813 9 RxNorm React ion: unkno wn, unspe cifie d;; Not Available [facility] 4 00:48:42 18313 Motrin medicatio n other Not available Not available 10/27/2023 48816 8 RxNorm React ion: unkno wn, unspe cifie d;; Not Available [facility] 4 00:48:53 82715 morphine medicatio n other Not available Not available 10/27/2023 7052 RxNorm React ion: unkno wn, unspe cifie d;; Not Available [facility] 4 00:48:59 12762 acetamino phen / hydrocodo ne medicatio n other Not available Not available 10/27/2023 63953 2 RxNorm React ion: unkno wn, unspe cifie d;; Not Available [facility] 4 00:49:06 41956 pravastat in medicatio n other Not available Not available 10/27/2023 63570 RxNorm React ion: unkno wn, unspe cifie d;; Not Available [facility] 4 00:49:07 Medications Name Sig Start Date Stop Date Status Note LastModified by Organization Details LastModified Time nystatin 100,000 unit/mL oral suspensio n 05/27 completed Medicati on ID: [id number] D uration Value: 30 Brand Name: nystatin [...] Alcohol Pads 05/27 completed Medicati on ID: 526555 D uration Value: 30 Brand Name: Alcohol [...] mg tablet 05/27 completed Medicati on ID: [id number] D uration Value: 30 Brand Name: carvedil ol Send Method: E-Prescr ibed Sub s Allowed: subs OK Speci al Instruct ion: TAKE ONE TABLET BY MOUTH 2 (two) times a day WITH A MEAL Med [facility] enElizabet me: carvedil ol Not Available Not [...] mg tablet 05/27 completed Medicati on ID: 316453 D uration Value: 28 Brand Name: zolpidem [...] ating tablet 05/27 completed Medicati on ID: 041663 D uration Value: 30 Brand Name: bree [...] elayed release 05/27 completed Medicati on ID: 827374 D uration Value: 30 Brand Name: donald [...] unit) capsule 2017 active Medicati on ID: 549159 D uration Value: 30 Brand Name: D3 Send Method: E-Prescr ibed Sub s Allowed: subs OK Speci al Instruct ion: TAKE ONE CAPSULE BY MOUTH DAILY Me dication GenericN louie: D3-2000 Not Available Not Available Not Available Easy Comfort Lancets 30 gauge 05/27 completed Medicati on ID: [id number] D uration Value: 30 Brand Name: Easy [...] History Nothing Reported. Medical History Condition Response Allergies/Hayfever Y Diabetes Y Anxiety Y GERD/Reflux Y High Cholesterol Y Migraines Y Hypertension Y Depression Y Asthma Y Gynecological HistoryNo gynecological history recorded. Obstetrics History GPAL:G 0 P 0 0 0 0 Past Encounters Encounter ID Performer Location Encounter Start Date Encounter Closed Date Diagnosis/Indication Diagnosis SNOMED-CT Code Diagnosis ICD10 Code Diagnosis Note [id number] MIGUEL NATH MD [facility] [address] [address] 05/27/2024 10:49:53 05/27/2024 11:53:18 Sensorineural hearing loss of bilateral ears 214989525 H90.3 Right Ear:Normal hearing through 2K Hz sloping to a profound SNHL with good speech discrimina tion.Type A tympanogra m.Left Ear:Normal hearing through 2K Hz sloping to a profound SNHL with good speech discrimina tion.Type A tympanogra m. Referred o talgia of left ear 9916625090 262437 H92.02 Bilateral tinnitus 13175 67989 102 H93.13 Health Concerns Section Related Observation LastModified by Organization Detai ls LastModified Time None Recorded Concern Status LastModified by Organization Details LastModified Time None Recorded Advance Directives Directive None Recorded Payers Encounter Date Sequence Insurance Name Policy Number Policy Juárez Covered Member ID Juárez Member ID Guarantor Name 05/27/2024 1 [place] [facility] Farrah Yancey [id number] Farrah Yancey Notes Date Note Type Note [...] caused pruritus. The amplification was dispensed by cashier assistant in [place]. Denies otorrhea or dizziness. Denies prior history of ear infections or ear surgeries. No history of loud noise exposure. No Qtip use. History of migraine. MIGUEL NATH MD [address] [place] [address], [address], [place] - [facility] 05/28/2024 13:57:56 OBGyn Episode No OBEpisode recorded.
[2024-08-04 17:54] LABS: MANUAL DIFF FLAG NO
[2024-08-04 18:18] LABS: Basophils Absolute Auto 0.1 X10*3/uL (0.0-0.2); Basophils Percent Auto 0.6 % (0-2); Eosinophils Absolute Auto 0.2 X10*3/uL (0.0-0.4); Eosinophils Percent Auto 1.7 % (0-4); Hematocrit 43.9 % (37.0-47.0); Hemoglobin 13.9 g/dl (12.0-16.0); Imm Gran Abs Auto 0.03 X10*3/uL (0.00-0.03); Imm Gran Pct Auto 0.3 % (0.0-0.4); Lymphocytes Absolute Auto 3.1 X10*3/uL (1.2-4.9); Lymphocytes Percent Auto 32.2 % (20-40); Mean Corpuscular HGB Conc 31.7 g/dl (31.0-35.0); Mean Corpuscular Hemoglobin 26.7 pg (27.0-33.0); Mean Corpuscular Volume 84.4 fL (80.0-98.0); Mean Platelet Volume 10.4 fL (9.4-12.3); Monocytes Absolute Auto 0.9 X10*3/uL (0.1-1.2); Monocytes Percent Auto 9.3 % (2-11); Neutrophils Absolute Auto 5.3 x10*3/uL (2.0-8.3); Neutrophils Percent Auto 55.9 % (45-73); Platelet Count 317 X10*3/uL (160-400); Red Cell Distribution Width 13.8 % (11.0-16.0); White Blood Count 9.5 X10*3/uL (4.8-10.8)
[2024-08-04 18:32] LABS: Prothrombin Time 11.7 SEC (10.9-12.4)
[2024-08-04 18:34] LABS: Alanine Aminotransferase 51 U/L (0-31); Albumin Level 4.1 g/dL (3.5-5.0); Alkaline Phosphatase 131 U/L (39-117); Anion Gap 11 (12-20); Aspartate Amino Transferase 44 U/L (5-31); Bilirubin Total 0.6 mg/dL (0.0-1.0); Blood Urea Nitrogen 15 mg/dL (9-16); C Reactive Protein 0.93 mg/dL (< or = 0.50); Calcium 9.4 mg/dL (8.4-10.2); Carbon Dioxide 30 mmol/L (22-29); Chloride 107 mmol/L (96-108); Cholesterol 216 mg/dL (<200); Estimated Glomerular Filt Rate > 60; Glucose Random 89 mg/dL (60-115); HDL Cholesterol 33 mg/dL (>40); LDL Cholesterol Calculated 117 mg/dL (<100); Potassium 3.8 mmol/L (3.3-5.1); Sodium 144 mmol/L (135-145); Total Protein 7.9 g/dL (6.5-8.0); Triglycerides 330 mg/dL (<150)
[2024-08-04 18:35] LABS: Partial Thromboplastin Time 30.4 SEC (26.0-36.8)
[2024-08-04 19:03] LABS: Erythrocyte Sedimentation Rate 19 MM/HR (0-20)
[2024-08-07 09:44] LABS: Anti Nuclear Antibody Screen NEGATIVE (NEGATIVE)
== END 2024-08-04 16:06 | disposition home or self-care (01) ==
LOC: HO.HHCL 16:05
PROVIDERS: Visit Provider Internal Medicine
DX: R21 Rash and other nonspecific skin eruption (principal); E78.2 Mixed hyperlipidemia
CPT/HCPCS: 36415; 80053; 80061; 85025; 85610; 85652; 85730; 86038; 86140

== ENCOUNTER 2024-08-18 14:35 | Outpatient (REF) | payer MEDICAID, SELFPAY ==
--- OUTSIDE RECORDS SUMMARY | 2024-08-18 17:59 | XMS_ITS | Encounter Summary ---
Author Organization [facility] Address [address] [place] [address] Support Name Relationship Address Phone Kimo Sprague Emergency Contact [address] [facility] [address] [place] [address] Care Team Providers Care Supervisor Component Assembler Name Role Phone Stacy Parry MD Primary Care Provider Unavail able Victoriano Smith MD Primary Care Provider Unava ilable Name, Matt APPIAH Primary Care Provider UnavailReyna Yañez MD Unavailable [phone] Chris Wallace PA-C Unavailable Latoya Hardy PA-C Unavailable [phone] Reason for Visit * Reason Onset Date Comments Pre-visit Diabetes Lab Adult Medicine 06/16/2019 Dm due on 06/29/19 at 300pm Encounter Details Date Type Department Care Team Description 06/16/2019 Telephone [facility]piratory [facility] Diabetes Medicaid/ACO Pharmacist [address] [place] [address] Stacy Parry MD Pre-visit Diabetes Lab Adult [...] ask that any orders entered by the [facility] Medicaid staff be associated with a diabetes diagnosis. You can use any diabetes diagnosis found on the problem list. Crissy Wing Community Health Worker [facility] Plan [facility] W [phone] F [phone] documented in this encounter Plan of Treatment Not on file documented as of this encounter Results * (ABNORMAL) HEMOGLOBIN A1C (08/27/2019 11:09 AM EDT) GLYCATED HEMOGLOBIN A1C 6.6(H) <6.5 % 08/28/2019 10:09 AM EDT [facility] ESTIMATED AVERAGE GLUCOSE 143 mg/dL 08/28/2019 10:09 AM EDT [facility] 08/27/2019 11:0 9 AM EDT 08/27/2019 11:09 AM EDT Stacy Parry MD LAB [facility] documented in this encounter Visit Diagnoses Diagnosis Type 2 diabetes mellitus with neurological manifestations, controlled (HCC)- Primary Type II or unspecified type diabetes mellitus with neurological manifestations, not stated as uncontrolled documented in this encounter Care Teams Supervisor Component Assembler Relationship Specialty Start Date End Date Stacy Parry MD PCP - General Internal Medicine 02/21/19 01/20/20 Victoriano Smith MD PCP - General Internal Medicine 01/21/20 07/07/22 Matt uW MD PCP - General Internal Medicine 07/08/22 Reyna Laboy MD [address] [address] Specialist Neurosurgery 12/22/23 Chris Wallace PA-C [address] [facility] [address] [place] [address] Specialist Neurosurgery 03/10/24 Latoya Hardy PA-C [address] [place] [address] Specialist Neurosurgery 03/10/24 documented as of this encounter
--- OUTSIDE RECORDS SUMMARY | 2024-08-18 17:59 | XMS_ITS | Encounter Summary ---
Author Organization [facility] Address [address] [place] [address] Support Name Relationship Address Phone Kimo Sprague Emergency Contact [address] [facility] [address] [place] [address] Care Team Providers Care Scrub Nurse Name Role Phone Anila Craven MD Primary Care Provider Un available Stacy Parry MD Primary Care Provider Unavail able Victoriano Smith MD Primary Care Provider Unava ilable Matt Wu MD Primary Care Provider Unavailabl e Reyna Laboy MD Unavailable [phone] Chris WallaceC Unavailable [phone] Latoya Hardy PA-C Unavailable [phone] Encounter Details Date Type Department Care Team Description 08/24/2018 Changer Fixer Report Medical Records [address] [place] [id number] Geetha Noriega, OCCUPATIONAL SAFETY AND HEALTH MANAGER Social History Tobacco Use Types Packs/Day Years [...] on filedocumented in this encounter Care Teams Scrub Nurse Relationship Specialty Start Date End Date Anila Craven MD PCP - General Internal Medicine 09/03/16 9 Stacy Parry MD PCP - General Internal Medicine 02/21/19 01/20/20 Victoriano Smith MD PCP - General Internal Medicine 01/21/20 07/07/22 Matt Wu MD PCP - General Internal Medicine 07/08/22 Reyna Laboy MD [address] [address] Specialist Neurosurgery 12/22/23 Chris Wallace PA-C [address] [address] Specialist Neurosurgery 03/10/24 Latoya Hardy PA-C [address] [address] Specialist Neurosurgery 03/10/24 documented as of this encounter
--- OUTSIDE RECORDS SUMMARY | 2024-08-18 17:59 | XMS_ITS | Encounter Summary ---
Author Organization [facility] Address [address] [place] [address] Support Name Relationship Address Phone Kimo Sprague Emergency Contact [address] [facility] [address] [place] [address] Care Team Providers Care Supervisor Painting Department Name Role Phone Anila Craven MD Primary Care Provider Un available Stacy Parry MD Primary Care Provider Unavail able Victoriano Smith MD Primary Care Provider Unava ilable Matt Wu MD Primary Care Provider Unavailabl e Reyna Laboy MD Unavailable [phone] Chris Wallace PA-C Unavailable Latoya Hardy PA-C Unavailable [phone] Encounter Details Date Type Department Care Team Description 01/24/2019 [facility] Medical Records [address] [place] [address] Abstract, Provider Social History Tobacco Use Types [...] filedocumented in this encounter Care Teams Supervisor Painting Department Relationship Specialty Start Date End Date Anila Craven MD PCP - General Internal Medicine 09/03/16 9 Stacy Parry MD PCP - General Internal Medicine 02/21/19 01/20/20 Victoriano Smith MD PCP - General Internal Medicine 01/21/20 07/07/22 Matt Wu MD PCP - General Internal Medicine 07/08/22 Reyna Laboy MD [address] [address] Specialist Neurosurgery 12/22/23 Chris Wallace PA-C [address] [address] Specialist Neurosurgery 03/10/24 Latoya Hardy PA-C [address] [address] Specialist Neurosurgery 03/10/24 documented as of this encounter
--- OUTSIDE RECORDS SUMMARY | 2024-08-18 17:59 | XMS_ITS | Encounter Summary ---
Author Organization [facility] Address [address] [place] [address] Support Name Relationship Address Phone Kimo Sprague Emergency Contact [address] [facility] [address] [place] [address] Care Team Providers Care Air Transportation Provider Name Role Phone Stacy Parry MD Primary Care Provider Unavail able Victoriano Smith MD Primary Care Provider Unava ilable Matt Wu MD Primary Care Provider Unavailabl e Reyna Laboy MD Unavailable [phone] Chris Wallace PA-C Unavailable [phone] Latoya Hardy PA-C Unavailable [phone] Encounter Details Date Type Department Care Team Description 05/24/2019 Old Medical Records Medical Records [address] [place] [address] Abstract, Provider Social History Tobacco Use Types [...] on filedocumented in this encounter Care Teams Air Transportation Provider Relationship Specialty Start Date End Date Stacy Parry MD PCP - General Internal Medicine 02/21/19 01/20/20 Victoriano Smith MD PCP - General Internal Medicine 01/21/20 07/07/22 Matt Wu MD PCP - General Internal Medicine 07/08/22 Reyna Laboy MD 175 [facility] [address] [place] [address] Specialist Neurosurgery 12/22/23 Chris Wallace PA-C 175 [facility] [address] [place] [address] Specialist Neurosurgery 03/10/24 Latoya Hardy PA-C [address] [address] Specialist Neurosurgery 03/10/24 documented as of this encounter
--- OUTSIDE RECORDS SUMMARY | 2024-08-18 17:59 | XMS_ITS | Encounter Summary ---
Author Organization [facility] Address [address] [place] [address] Support Name Relationship Address Phone Kimo Sprague Emergency Contact [address] [facility] [address] [place] [address] Care Team Providers Care Tavern Car Attendant Name Role Phone Anila Craven MD Primary Care Provider Un available Stacy Parry MD Primary Care Provider Unavail able Victoriano Smith MD Primary Care Provider Unava ilable Matt Wu MD Primary Care Provider Unavailabl e Reyna Laboy MD Unavailable [phone] Chris WallaceC Unavailable Latoya Hardy PA-C Unavailable [phone] Encounter Details Date Type Department Care Team Description 08/28/2017 Telephone [facility] - [address] [address] Anila Craven MD Social History Tobacco Use [...] on filedocumented in this encounter Care Teams Tavern Car Attendant Relationship Specialty Start Date End Date Anila Craven MD PCP - General Internal Medicine 09/03/16 9 Stacy Parry MD PCP - General Internal Medicine 02/21/19 01/20/20 Victoriano Smith MD PCP - General Internal Medicine 01/21/20 07/07/22 Matt Wu MD PCP - General Internal Medicine 07/08/22 Reyna Laboy MD [address] [address] Specialist Neurosurgery 12/22/23 Chris Wallace PA-C [address] [address] Specialist Neurosurgery 03/10/24 Latoya Hardy PA-C [address] [address] Specialist Neurosurgery 03/10/24 documented as of this encounter
--- OUTSIDE RECORDS SUMMARY | 2024-08-18 17:59 | XMS_ITS | Encounter Summary ---
Author Organization [facility] Address [address] [place] [address] Support Name Relationship Address Phone Kimo Sprague Emergency Contact [address] [facility] [address] [place] [address] Care Team Providers Care Program Aide Group Work Name Role Phone Makayla Sam DO Primary Care Pro vider Unavailable Anila Craven MD Primary Care Provider Un available Stacy Parry MD Primary Care Provider Unavail able Victoriano Smith MD Primary Care Provider Unava ilable Name, Matt APPIAH Primary Care Provider UnavailReyna Yañez MD Unavailable [phone] Chris Wallace PA-C Unavailable Latoya Hardy PA-C Unavailable [phone] Encounter Details Date Type Department Care Team Description 02/08/2016 Refill Adult [address] [address] Makayla Sam DO Social History Tobacco Use Types Packs/Day Years Used Date Smoking Tobacco: Never Alcohol Use Standard Drinks/Week Comments No 0 (1 standard drink = 0.6 oz pur e alcohol) Sex Assigned at Date Recorded Not on file documented as of this encounter Plan of Treatment Not on file documented as of this encounter Visit Diagnoses Not on filedocumented in this encounter Care Teams Program Aide Group Work Relationship Specialty Start Date End Date Makayla Sam DO PCP - General Internal Medicine 10/10/14 09/02/16 Anila Craevn MD PCP - General Internal Medicine 09/03/16 9 Stacy Parry MD PCP - General Internal Medicine 02/21/19 01/20/20 Victoriano Smith MD PCP - General Internal Medicine 01/21/20 07/07/22 Matt Wu MD PCP - General Internal Medicine 07/08/22 Reyna Laboy MD [address] [id number] Specialist Neurosurgery 12/22/23 Chris Wallace PA-C 175 [facility] [address] [place] [address] Specialist Neurosurgery 03/10/24 Latoya Hardy PA-C [address] [id number] Specialist Neurosurgery 03/10/24 documented as of this encounter
--- OUTSIDE RECORDS SUMMARY | 2024-08-18 17:59 | XMS_ITS | Encounter Summary ---
Author Organization [facility] Address [address] [place] [address] Support Name Relationship Address Phone Kimo Sprague Emergency Contact [address] [facility] [address] [place] [address] Care Team Providers Care Metal Fitter Name Role Phone Makayla Sam DO Primary Care Pro vider Unavailable Anila Craven MD Primary Care Provider Un available Stacy Parry MD Primary Care Provider Unavail able Victoriano Smith MD Primary Care Provider Unava ilable Bryce, Matt APPIAH Primary Care Provider UnavailReyna Yañez MD Unavailable [phone] Chris Wallace PA-C Unavailable Latoya Hardy PA-C Unavailable Encounter Details Date Type Department Care Team Description 07/09/2016 Telephone Adult [address] [address] Makayla Sam DO Social History Tobacco Use Types Packs/Day Years Used Date Smoking Tobacco: Never Alcohol Use Standard Drinks/Week Comments No 0 (1 standard drink = 0.6 oz pur e alcohol) Sex Assigned at Date Recorded Not on file documented as of this encounter Miscellaneous Notes * Telephone Encounter - Kirstin Lanier R.N. - 07/15/2016 1:20 PM EST Last RX for Endocet filled on 06/28 Quantity 56 Sig: take one BID RX GIVEN 06/19 BUT NOT FILLED UNTIL 06/28 Expected remaining tablets: 22 Actual Pill Count number: 21 Provider notified of result: YES Appearance of medication tablet verified in Epocrates/PDR or patients pharmacy: Pill count performed by Kirstin Lanier R.N.. Witnessed by: Devon yo Last RX for zolpidem filled on 06/19 Sig: one QD Expected remaining tablets: 2 Actual Pill Count number: 4 Provider notified of result: YES Appearance of medication tablet verified in Epocrates/PDR or patients pharmacy: Pill count performed by Kirstin Lanier R.N.. Witnessed by: Devon yo Electronically signed by: Kirstin Lanier R.N. 07/15/2016 1:21 PM Electronically signed by: Kirstin Lanier R.N. 07/15/2016 1:20 PM * Telephone Encounter - Kirtsin Lanier R.N. - 07/15/2016 1:19 PM EST 10.5 % 254 mg/dL 11 % 269 mg/dL 11.5 % 283 mg/dL 12 % 298 mg/dL 12.5 % 312 mg/dL 13 % 326 mg/dL 13.5 % 341 mg/dL 14% 355 mg/dL l * Telephone Encounter - Makayla Hdz DO - 07/14/2016 3:39 PM EST Spoke to patient at 340 on 07/14/16 has to come in before 4 PM tomorrow with Ambien and pain medication and original bottles for pill count or she will be in violation * Telephone Encounter - Kirstin Lanier R.N. - 07/09/2016 12:44 PM EST I also tried friend and left message for pt to call here , that it is important we speak with her ,no response . * Telephone Encounter - Makayla Hdz DO - 07/09/2016 11:10 AM EST Do we have alt contact number to try? * Telephone Encounter - Kirstin Lanier R.N. - 07/09/2016 9:47 AM EST Pt had positive drug screen for benzodiazepine , but has no csc for this, stated she has a Rx, needs to bring in that bottle for dr Makayla Dowell-Wilder/ documentation Pt's phone is not accepting calls documented in this encounter Plan of Treatment Not on file documented as of this encounter Visit Diagnoses Not on filedocumented in this encounter Care Teams Metal Fitter Relationship Specialty Start Date End Date Makayla Sam DO PCP - General Internal Medicine 10/10/14 09/02/16 Anila Craven MD PCP - General Internal Medicine 09/03/16 9 Stacy Parry MD PCP - General Internal Medicine 02/21/19 01/20/20 Victoriano Smith MD PCP - General Internal Medicine 01/21/20 07/07/22 Name, MD Matt PCP - General Internal Medicine 07/08/22 Reyna Laboy MD [address] [address] Specialist Neurosurgery 12/22/23 Chris Wallace PA-C [address] [facility] [address] [place] [address] Specialist Neurosurgery 03/10/24 Latoya Hardy PA-C [address] [address] Specialist Neurosurgery 03/10/24 documented as of this encounter
--- OUTSIDE RECORDS SUMMARY | 2024-08-18 17:59 | XMS_ITS | Encounter Summary ---
Author Organization [facility] Address [address] [place] [address] Support Name Relationship Address Phone Kimo Sprague Emergency Contact [address] [facility] [address] [place] [address] Care Team Providers Care Plastic Boat Buffer Name Role Phone Anila Craven MD Primary Care Provider Un available Stacy Parry MD Primary Care Provider Unavail able Victoriano Smith MD Primary Care Provider Unava ilable Name, Matt APPIAH Primary Care Provider Unavailabl e Reyna Laboy MD Unavailable [phone] Chris Wallace PA-C Unavailable Latoya Hardy PA-C Unavailable Encounter Details Date Type Department Care Team Description 11/25/2016 PNO Controlled Substance Contract Medical Records [address] [place] [address] Abstract, Provider Social History Tobacco Use Types [...] on filedocumented in this encounter Care Teams Plastic Boat Buffer Relationship Specialty Start Date End Date Anila Craven MD PCP - General Internal Medicine 09/03/16 9 Stacy Parry MD PCP - General Internal Medicine 02/21/19 01/20/20 Victoriano Smith MD PCP - General Internal Medicine 01/21/20 07/07/22 Matt Wu MD PCP - General Internal Medicine 07/08/22 Reyna Laboy MD [address] [address] Specialist Neurosurgery 12/22/23 Chris Wallace PA-C [address] [address] Specialist Neurosurgery 03/10/24 Latoya Hardy PA-C [address] [address] Specialist Neurosurgery 03/10/24 documented as of this encounter
--- OUTSIDE RECORDS SUMMARY | 2024-08-18 17:59 | XMS_ITS | Encounter Summary ---
Author Organization [facility] Address [address] [place] [address] Support Name Relationship Address Phone Kimo Sprague Emergency Contact [address] [facility] [address] [place] [address] Care Team Providers Care Wedger Name Role Phone Makayla Sam DO Primary Care Pro vider Unavailable Anila Craven MD Primary Care Provider Un available Stacy Parry MD Primary Care Provider Unavail able Victoriano Smith MD Primary Care Provider Unava ilable Name, Matt APPIAH Primary Care Provider UnavailReyna Yañez MD Unavailable [phone] Chris Wallace PA-C Unavailable Latoya Hardy PA-C Unavailable [phone] Encounter Details Date Type Department Care Team Description 05/02/2016 [facility] Medical Records [address] [place] [address] Abstract, Provider Social History Tobacco Use Types [...] on filedocumented in this encounter Care Teams Wedger Relationship Specialty Start Date End Date Makayla Sam DO PCP - General Internal Medicine 10/10/14 09/02/16 Anila Craven MD PCP - General Internal Medicine 09/03/16 9 Stacy Parry MD PCP - General Internal Medicine 02/21/19 01/20/20 Victoriano mSith MD PCP - General Internal Medicine 01/21/20 07/07/22 Bryce, MD Matt PCP - General Internal Medicine 07/08/22 Reyna Laboy MD [address] [id number] Specialist Neurosurgery 12/22/23 Chris Wallace PA-C [address] [address] Specialist Neurosurgery 03/10/24 Latoya Hardy PA-C [address] [address] Specialist Neurosurgery 03/10/24 documented as of this encounter
--- OUTSIDE RECORDS SUMMARY | 2024-08-18 17:59 | XMS_ITS | Encounter Summary ---
Author Organization [facility] Address [address] [place] [address] Support Name Relationship Address Phone Kimo Sprague Emergency Contact [address] [facility] [address] [place] [address] Care Team Providers Care Straw Hat Brim Raiser Operator Name Role Phone Makayla Sam DO Primary Care Pro vider Unavailable Anila Craven MD Primary Care Provider Un available Stacy Parry MD Primary Care Provider Unavail able Victoriano Smith MD Primary Care Provider Unava ilable Name, Matt APPIAH Primary Care Provider UnavailReyna Yañez MD Unavailable [phone] Chris Wallace PA-C Unavailable Latoya Hardy PA-C Unavailable [phone] Encounter Details Date Type Department Care Team Description 06/17/2016 Therapist Report Medical Records [address] [place] [address] Estephanie Man FNP Social History Tobacco Use [...] on filedocumented in this encounter Care Teams Straw Hat Brim Raiser Operator Relationship Specialty Start Date End Date Makayla Sam DO PCP - General Internal Medicine 10/10/14 09/02/16 Anila Craven MD PCP - General Internal Medicine 09/03/16 9 Stacy Parry MD PCP - General Internal Medicine 02/21/19 01/20/20 Victoriano Smith MD PCP - General Internal Medicine 01/21/20 07/07/22 Matt Wu MD PCP - General Internal Medicine 07/08/22 Reyna Laboy MD [address] [address] Specialist Neurosurgery 12/22/23 Chris Wallace PA-C [address] [address] Specialist Neurosurgery 03/10/24 Latoya Hardy PA-C [address] [address] Specialist Neurosurgery 03/10/24 documented as of this encounter
--- OUTSIDE RECORDS SUMMARY | 2024-08-18 17:59 | XMS_ITS | Encounter Summary ---
Author Organization [facility] Address [address] [place] [address] Support Name Relationship Address Phone Kimo Sprague Emergency Contact [address] [facility] [address] [place] [address] Care Team Providers Care Commercial Collector Name Role Phone Anila Craven MD Primary Care Provider Un available Stacy Parry MD Primary Care Provider Unavail able Victoriano Smith MD Primary Care Provider Unava ilable Matt Wu MD Primary Care Provider Unavailabl e Reyna Laboy MD Unavailable [phone] Chris Wallace PA-C Unavailable Latoya Hardy PA-C Unavailable [phone] Encounter Details Date Type Department Care Team Description 04/29/2017 Hooker Operator Report Medical Records [address] [place] [address] Rylee Nunez PA-C Social History Tobacco Use [...] on filedocumented in this encounter Care Teams Commercial Collector Relationship Specialty Start Date End Date Anila Craven MD PCP - General Internal Medicine 09/03/16 9 Stacy Parry MD PCP - General Internal Medicine 02/21/19 01/20/20 Victoriano Smith MD PCP - General Internal Medicine 01/21/20 07/07/22 Matt Wu MD PCP - General Internal Medicine 07/08/22 Reyna Laboy MD [address] [address] Specialist Neurosurgery 12/22/23 Chris Wallace PA-C [address] [address] Specialist Neurosurgery 03/10/24 Latoya Hardy PA-C [address] [address] Specialist Neurosurgery 03/10/24 documented as of this encounter
--- OUTSIDE RECORDS SUMMARY | 2024-08-18 17:59 | XMS_ITS | Data Portability ---
Author Organization [place] [facility] Address [address] [place] [address] Care Team Providers Care Wine Maker Name Role Phone YOLANDA VANEGAS Referring Provider Assessment Encounter Date Assessment Date Assessment LastModified [...] for amplification. Recommend she follow up with [facility], and discussed hearing aids would help [...] Organization Details Recorded Time Dizziness and giddiness 263561067 Active 2017 Dizziness and giddiness ; Note: Date Diagnosed : 02/11/2018 2:44 PM (R42) Not Available [facility] 4 03:04:54 Sensorine ural hearing loss of bilateral ears 534451304 Active 2020 Sensorine ural hearing loss, bilateral ; Note: Date Diagnosed : 01/10/2021 2:50 PM (H90.3) Not Available [facility] 4 03:04:55 Headache 02937141 Active 2017 Headache, unspecifi ed; Note: Changed from R51 to R51.9 (07/19/2021 2:06 PM) , Date Diagnosed : 02/11/2018 2:44 PM (R51) Not Available [facility] 4 03:04:55 Migraine 87653694 Active 2020 Other migraine, not intractab le, without status migrainos us; Note: Date Diagnosed : 1 4:10 PM (G43.809) Not Available [facility] 4 03:04:56 Gastroeso phageal reflux disease without esophagit is 032145705 Active 2017 Gastro-es ophageal reflux disease without esophagit is; Note: Date Diagnosed : 03/05/2018 1:19 PM (K21.9) Not Available [facility] 4 03:04:53 Cough 87213008 Active 2017 Cough; Note: Date Diagnosed : 03/05/2018 1:16 PM (R05) Not Available [facility] 4 03:04:55 Referred otalgia of left ear 90897943173 71519 Active 2023 MARISSA CARCAMO PA-C [address] [facility] [address], [facility] [place], [address] , [facility] - [facility] 4 12:01:45 Bilateral tinnitus 73935275752 02 Active 2023 MARISSA CARCAMO PA-C [address] [facility] [address], [facility] [place], [address] , [place] [facility] 4 12:01:52 Problem Notes None recorded. Procedures Surgical History Date Name Laterality Status Provider Name and Address Organization Details Recorded Time 024 Air & Speech Audio with Tymps (92099, 87909 & 62541) completed SHAHLA SLOAN [address] [facility], [place], [address], [facility] - [facility] 05/27/2024 11:03:21 hemorrhoidectomy completed Mica Horner [place] [facility] 05/27/2024 10:56:11 Appendectomy completed Mica Horner [place] [facility] 05/27/2024 10:56:15 Imaging Results Imaging Date [...] Name and Address Organization Details Recorded Time 19628 gabapenti n medicatio n other Not available Not available 10/27/2023 38351 RxNorm React ion: unkno wn, unspe cifie d;; Not Available [facility] 4 00:48:25 29148 terbinafi ne medicatio n other Not available Not available 10/27/2023 75296 RxNorm React ion: unkno wn, unspe cifie d;; Not Available [facility] 4 00:48:25 50913 Lipitor medicatio n other Not available Not available 10/27/2023 94404 5 RxNorm React ion: unkno wn, unspe cifie d;; Not Available [facility] 4 00:48:25 37100 Crestor medicatio n other Not available Not available 10/27/2023 22379 4 RxNorm React ion: unkno wn, unspe cifie d;; Not Available [facility] 4 00:48:34 83122 sodium medicatio n other Not available Not available 10/27/2023 9853 RxNorm React ion: unkno wn, unspe cifie d;; Not Available [facility] 4 00:48:41 89419 Biaxin medicatio n other Not available Not available 10/27/2023 23487 9 RxNorm React ion: unkno wn, unspe cifie d;; Not Available [facility] 4 00:48:42 81358 Motrin medicatio n other Not available Not available 10/27/2023 06489 8 RxNorm React ion: unkno wn, unspe cifie d;; Not Available [facility] 4 00:48:53 17793 morphine medicatio n other Not available Not available 10/27/2023 7052 RxNorm React ion: unkno wn, unspe cifie d;; Not Available [facility] 4 00:48:59 40793 acetamino phen / hydrocodo ne medicatio n other Not available Not available 10/27/2023 16220 2 RxNorm React ion: unkno wn, unspe cifie d;; Not Available [facility] 4 00:49:06 27461 pravastat in medicatio n other Not available Not available 10/27/2023 71364 RxNorm React ion: unkno wn, unspe cifie d;; Not Available [facility] 4 00:49:07 Medications Name Sig Start Date Stop Date Status Note LastModified by Organization Details LastModified Time nystatin 100,000 unit/mL oral suspensio n 05/27 completed Medicati on ID: [id number] D uration Value: 30 Brand Name: nystatin [...] Alcohol Pads 05/27 completed Medicati on ID: 705402 D uration Value: 30 Brand Name: Alcohol [...] mg tablet 05/27 completed Medicati on ID: 576297 D uration Value: 30 Brand Name: carvedil ol Send Method: E-Prescr ibed Sub s Allowed: subs OK Speci al Instruct ion: TAKE ONE TABLET BY MOUTH 2 (two) times a day WITH A MEAL Med [facility] enElizabet me: carvedil ol Not Available Not [...] mg tablet 05/27 completed Medicati on ID: 930809 D uration Value: 28 Brand Name: zolpidem [...] ating tablet 05/27 completed Medicati on ID: 607568 D uration Value: 30 Brand Name: bree [...] elayed release 05/27 completed Medicati on ID: 755888 D uration Value: 30 Brand Name: donald [...] unit) capsule 2017 active Medicati on ID: 547854 D uration Value: 30 Brand Name: D3 Send Method: E-Prescr ibed Sub s Allowed: subs OK Speci al Instruct ion: TAKE ONE CAPSULE BY MOUTH DAILY Me dication GenericN louie: D3-2000 Not Available Not Available Not Available Easy Comfort Lancets 30 gauge 05/27 completed Medicati on ID: [id number] D uration Value: 30 Brand Name: Easy [...] Reported. Medical History Condition Response Depression Y High Cholesterol Y Allergies/Hayfever Y Anxiety Y Migraines Y Diabetes Y Asthma Y GERD/Reflux Y Hypertension Y Gynecological HistoryNo gynecological history recorded. Obstetrics History GPAL:G 0 P 0 0 0 0 Past Encounters Encounter ID Performer Location Encounter Start Date Encounter Closed Date Diagnosis/Indication Diagnosis SNOMED-CT Code Diagnosis ICD10 Code Diagnosis Note [id number] MIGUEL NATH MD [facility] [address] [address] 05/27/2024 10:49:53 05/27/2024 11:53:18 Sensorineural hearing loss of bilateral ears 732205797 H90.3 Right Ear:Normal hearing through 2K Hz sloping to a profound SNHL with good speech discrimina tion.Type A tympanogra m.Left Ear:Normal hearing through 2K Hz sloping to a profound SNHL with good speech discrimina tion.Type A tympanogra m. Referred o talgia of left ear [id number] 414797 H92.02 Bilateral tinnitus [address] 39136 102 H93.13 Health Concerns Section Related Observation LastModified by Organization Detai ls LastModified Time None Recorded Concern Status LastModified by Organization Details LastModified Time None Recorded Advance Directives Directive None Recorded Payers Encounter Date Sequence Insurance Name Policy Number Policy Juárez Covered Member ID Juárez Member ID Guarantor Name 05/27/2024 1 [place] [facility] Farrah Yancey [id number] Farrah Yancey Notes Date Note Type Note [...] caused pruritus. The amplification was dispensed by inside trucker in [place]. Denies otorrhea or dizziness. Denies prior history of ear infections or ear surgeries. No history of loud noise exposure. No Qtip use. History of migraine. MIGUEL NATH MD [address] [place] [address], [address], [place] [facility] 05/28/2024 13:57:56 OBGyn Episode No OBEpisode recorded.
--- OUTSIDE RECORDS SUMMARY | 2024-08-18 17:59 | XMS_ITS | Encounter Summary ---
Author Organization [facility] Address [address] [place] [address] Support Name Relationship Address Phone Kimo Sprague Emergency Contact [address] [facility] [address] [place] [address] Care Team Providers Care Last Sorter Name Role Phone Anila Craven MD Primary Care Provider Un available Stacy Parry MD Primary Care Provider Unavail able Victoriano Smith MD Primary Care Provider Unava ilable Name, Matt APPIAH Primary Care Provider Unavailabl e Reyna Laboy MD Unavailable [phone] Chris Wallace PA-C Unavailable Latoya Hardy PA-C Unavailable Encounter Details Date Type Department Care Team Description 07/17/2017 Trash Hauler Report Medical Records [address] [place] [address] Abstract, Provider Social History Tobacco Use Types [...] on filedocumented in this encounter Care Teams Last Sorter Relationship Specialty Start Date End Date Anila Craven MD PCP - General Internal Medicine 09/03/16 9 Stacy Parry MD PCP - General Internal Medicine 02/21/19 01/20/20 Victoriano Smith MD PCP - General Internal Medicine 01/21/20 07/07/22 Matt Wu MD PCP - General Internal Medicine 07/08/22 Reyna Laboy MD [address] [address] Specialist Neurosurgery 12/22/23 Chris Wallace PA-C [address] [address] Specialist Neurosurgery 03/10/24 Latoya Hardy PA-C [address] [address] Specialist Neurosurgery 03/10/24 documented as of this encounter
--- OUTSIDE RECORDS SUMMARY | 2024-08-18 17:59 | XMS_ITS | Encounter Summary ---
Author Organization [facility] Address [address] [place] [address] Support Name Relationship Address Phone Kimo Sprague Emergency Contact [address] [facility] [address] [place] [address] Care Team Providers Care Sheet Metal Journeyman Name Role Phone Makayla Sam DO Primary Care Pro vider Unavailable Anila Craven MD Primary Care Provider Un available Stacy Parry MD Primary Care Provider Unavail able Victoriano Smith MD Primary Care Provider Unava ilable Name, Matt APPIAH Primary Care Provider UnavailReyna Yañez MD Unavailable [phone] Chris Wallace PA-C Unavailable Latoya Hardy PA-C Unavailable [phone] Encounter Details Date Type Department Care Team Description 04/17/2016 Monumental Stonemason Report Medical Records [address] [place] [address] Joana Chu MD Social History Tobacco Use Types Packs/Day Years Used Date Smoking Tobacco: Never Alcohol Use Standard Drinks/Week Comments No 0 (1 standard drink = 0.6 oz pur e alcohol) Sex Assigned at Date Recorded Not on file documented as of this encounter Plan of Treatment Not on file documented as of this encounter Visit Diagnoses Not on filedocumented in this encounter Care Teams Sheet Metal Journeyman Relationship Specialty Start Date End Date Makayla Sam DO PCP - General Internal Medicine 10/10/14 09/02/16 Anila Craven MD PCP - General Internal Medicine 09/03/16 9 Stacy Parry MD PCP - General Internal Medicine 02/21/19 01/20/20 Victoriano Smith MD PCP - General Internal Medicine 01/21/20 07/07/22 Matt Wu MD PCP - General Internal Medicine 07/08/22 Reyna Laboy MD [address] [address] Specialist Neurosurgery 12/22/23 Chris Wallace PA-C [address] [facility] [address] [place] [address] Specialist Neurosurgery 03/10/24 Latoya Hardy PA-C [address] [address] Specialist Neurosurgery 03/10/24 documented as of this encounter
--- OUTSIDE RECORDS SUMMARY | 2024-08-18 17:59 | XMS_ITS | Encounter Summary ---
Author Organization [facility] Address [address] [place] [address] Support Name Relationship Address Phone Kimo Sprague Emergency Contact [address] [facility] [address] [place] [address] Care Team Providers Care Hand Printed Circuit Board Assembler Name Role Phone Anila Craven MD Primary Care Provider Un available Stacy Parry MD Primary Care Provider Unavail able Victoriano Smith MD Primary Care Provider Unava ilable Matt Wu MD Primary Care Provider Unavailabl e Reyna Laboy MD Unavailable [phone] Chris WallaceC Unavailable [phone] Latoya Hardy PA-C Unavailable [phone] Encounter Details Date Type Department Care Team Description 09/10/2016 Uniformer Report Medical Records [address] [place] [address] Rj Nevarez MD Social History Tobacco Use [...] on filedocumented in this encounter Care Teams Hand Printed Circuit Board Assembler Relationship Specialty Start Date End Date Anila Craven MD PCP - General Internal Medicine 09/03/16 9 Stacy Parry MD PCP - General Internal Medicine 02/21/19 01/20/20 Victoriano Smith MD PCP - General Internal Medicine 01/21/20 07/07/22 Matt Wu MD PCP - General Internal Medicine 07/08/22 Reyna Laboy MD [address] [address] Specialist Neurosurgery 12/22/23 Chris Wallace PA-C [address] [address] Specialist Neurosurgery 03/10/24 Latoya Hardy PA-C [address] [address] Specialist Neurosurgery 03/10/24 documented as of this encounter
--- OUTSIDE RECORDS SUMMARY | 2024-08-18 17:59 | XMS_ITS | Encounter Summary ---
Author Organization [facility] Address [address] [place] [address] Support Name Relationship Address Phone Kimo Sprague Emergency Contact [address] [facility] [address] [place] [address] Care Team Providers Care Clam Shucking Machine Tender Name Role Phone Stacy Parry MD Primary Care Provider Unavail able Victoriano Smith MD Primary Care Provider Unava ilable Name, Matt APPIAH Primary Care Provider UnavailReyna Yañez MD Unavailable [phone] Chris Wallace PA-C Unavailable Latoya Hardy PA-C Unavailable [phone] Reason for Visit * Reason Onset Date Comments refill request 11/22/2019 Encounter Details Date Type Department Care Team Description 11/22/2019 Refill Adult Medicine [address] [address] Stacy Parry MD refill request Social History [...] N/A Patients current insurance carrier is: Payor: [employer]FS / Plan: [employer] [facility] / Product Type: MEDICAID RISK documented in this encounter Plan of Treatment Not on file documented as of this encounter Visit Diagnoses Not on filedocumented in this encounter Care Teams Clam Shucking Machine Tender Relationship Specialty Start Date End Date Stacy Parry MD PCP - General Internal Medicine 02/21/19 01/20/20 Victoriano Smith MD PCP - General Internal Medicine 01/21/20 07/07/22 Name, MD Matt PCP - General Internal Medicine 07/08/22 Reyna Laboy MD [address] [place] [address] [place] [address] Specialist Neurosurgery 12/22/23 Chris Wallace PA-C [address] [facility] [address] [place] [address] Specialist Neurosurgery 03/10/24 Latoya Hardy PA-C [address] [address] Specialist Neurosurgery 03/10/24 documented as of this encounter
--- OUTSIDE RECORDS SUMMARY | 2024-08-18 17:59 | XMS_ITS | Encounter Summary ---
Author Organization [facility] Address [address] [place] [address] Support Name Relationship Address Phone Kimo Sprague Emergency Contact [address] [facility] [address] [place] [address] Care Team Providers Care Department Chairperson Name Role Phone Anila Craven MD Primary Care Provider Un available Stacy Parry MD Primary Care Provider Unavail able Victoriano Smith MD Primary Care Provider Unava ilable Matt Wu MD Primary Care Provider Unavailabl e Reyna Laboy MD Unavailable [phone] Chris WallaceC Unavailable Latoya Hardy PA-C Unavailable [phone] Encounter Details Date Type Department Care Team Description 10/18/2018 Customer Service Manager Report Medical Records [address] [place] [address] Christ Gustafson MD Social History Tobacco Use Types Packs/Day [...] on filedocumented in this encounter Care Teams Department Chairperson Relationship Specialty Start Date End Date Anila Craven MD PCP - General Internal Medicine 09/03/16 9 Stacy Parry MD PCP - General Internal Medicine 02/21/19 01/20/20 Victoriano Smith MD PCP - General Internal Medicine 01/21/20 07/07/22 Matt Wu MD PCP - General Internal Medicine 07/08/22 Reyna aLboy MD [address] [address] Specialist Neurosurgery 12/22/23 Chris Wallace PA-C [address] [address] Specialist Neurosurgery 03/10/24 Latoya Hardy PA-C [address] [address] Specialist Neurosurgery 03/10/24 documented as of this encounter
--- OUTSIDE RECORDS SUMMARY | 2024-08-18 17:59 | XMS_ITS | Encounter Summary ---
Author Organization [facility] Address [address] [place] [address] Support Name Relationship Address Phone Kimo Sprague Emergency Contact [address] [facility] [address] [place] [address] Care Team Providers Care Digital Producer Name Role Phone Name, Matt APPIAH Primary Care Provider Unavailabl e Reyna Laboy MD Unavailable [phone] Chris Wallace PA-C Unavailable Latoya Hardy PA-C Unavailable [phone] Encounter Details Date Type Department Care Team Description 03/03/2024 [facility]AN [facility] Neurosurgery Bulger Trent [address] [id number] Reyna Laboy MD [address] [address] Social History Tobacco Use Types Packs/Day Years [...] on filedocumented in this encounter Care Teams Digital Producer Relationship Specialty Start Date End Date Name, MD Matt PCP - General Internal Medicine 07/08/22 Reyna Laboy MD [address] [address] Specialist Neurosurgery 12/22/23 Chris Wallace PA-C [address] [address] Specialist Neurosurgery 03/10/24 Latoya Hardy PA-C [address] [facility] [address] [place] [address] Specialist Neurosurgery 03/10/24 documented as of this encounter
--- OUTSIDE RECORDS SUMMARY | 2024-08-18 17:59 | XMS_ITS | Encounter Summary ---
Author Organization [facility] Address [address] [place] [address] Support Name Relationship Address Phone Kimo Sprague Emergency Contact [address] [facility] [address] [place] [address] Care Team Providers Care Biology Manager Name Role Phone Anila Craven MD Primary Care Provider Un available Stacy Parry MD Primary Care Provider Unavail able Victoriano Smith MD Primary Care Provider Unava ilable Name, Matt APPIAH Primary Care Provider UnavailReyna Yañez MD Unavailable [phone] Chris Wallace PA-C Unavailable Latoya Hardy PA-C Unavailable [phone] Reason for Referral * Non JEN (Routine) - Authorized/Booked Specialty Diagnoses / Procedures Referred By Caridad veronica Referred To Contact Physiatry Procedures REFERRAL TO PHYSIATRY Alicia Crabtree PA-C [address] [place] [address] [facility]/[address] [address] Referral ID Status Reason Start Date Expiration Date V isits Requested Visits Authorized [id number] Authorized/B ooked 01/10/2019 01/10/2020 1 1 Reason for Visit * Reason Onset Date Comments medication problems 01/10/2019 Encounter Details Date Type Department Care Team Description 01/10/2019 Telephone Adult Medicine [address] [phone] Anila Craven MD medication problems Social History Tobacco Use Types Packs/Day Years Used Date Smoking Tobacco: Never Smokeless Tobacco: Never Alcohol Use Standard Drinks/Week Comments No 0 (1 standard drink = 0.6 oz pur e alcohol) Sex Assigned at Date Recorded Not on file documented as of this encounter Miscellaneous Notes * Telephone Encounter - Alicia Crabtree PA-C - 01/10/2019 12:01 PM EDT Pt given referral to physiatry. Stop diclofenac and use OTC arthritis Tylenol. * Telephone Encounter - Kirstin Lanier R.N. - 01/10/2019 10:49 AM EDT Pt is still having a lot of pain in her arm, xray was negative , she is asking what she should be doping for the pain, the diclofenac is causing headache and muscle pain, she is asking for a different medication Pt has no new symptoms, symptoms are not worse, she has aching in her elbow and pain down into her forearm, nl [facility] Message to hali ildamariah * Telephone Encounter - Delphine Dangelo M.A. - 01/10/2019 10:43 AM EDT Please triage * Telephone Encounter - Samantha King - 01/10/2019 10:08 AM EDT What is the name of the medication patient is having a problem with?: Diclofenac 50 mg What is the problem?: nausea/headache/muscle pain Is the patient calling about the problem? YES If the patient is not the caller who is? Is this a NEW medication?: YES How long has the patient been taking this medication? 4 days Who prescribed this medication for the patient? Alicia Crabtree Who is patients PCP?: Anila Craven Payor: [facility] [employer] FFS / Plan: [facility] / Product Type: MEDICAID RISK documented in this encounter Plan of Treatment Not on file documented as of this encounter Visit Diagnoses Not on filedocumented in this encounter Care Teams Biology Manager Relationship Specialty Start Date End Date Anila Craven MD PCP - General Internal Medicine 09/03/16 9 Stacy Parry MD PCP - General Internal Medicine 02/21/19 01/20/20 Victoriano Smith MD PCP - General Internal Medicine 01/21/20 07/07/22 Bryce, MD Matt PCP - General Internal Medicine 07/08/22 Reyna Laboy MD [address] [address] Specialist Neurosurgery 12/22/23 Chris Wallace PA-C [address] [address] Specialist Neurosurgery 03/10/24 Latoya Hardy PA-C [address] [address] Specialist Neurosurgery 03/10/24 documented as of this encounter
--- OUTSIDE RECORDS SUMMARY | 2024-08-18 17:59 | XMS_ITS | Encounter Summary ---
Author Organization [facility] Address [address] [place] [address] Support Name Relationship Address Phone Kimo Sprague Emergency Contact [address] [facility] [address] [place] [address] Care Team Providers Care Flower Planter Name Role Phone Anila Craven MD Primary Care Provider Un available Stacy Parry MD Primary Care Provider Unavail able Victoriano Smith MD Primary Care Provider Unava ilable Matt Wu MD Primary Care Provider Unavailabl e Reyna Laboy MD Unavailable [phone] Chris Wallace PA-C Unavailable Latoya Hardy PA-C Unavailable [phone] Encounter Details Date Type Department Care Team Description 04/24/2017 [facility] Medical Records [address] [place] [address] [place] [address] Social History Tobacco Use Types Packs/Day Years [...] on filedocumented in this encounter Care Teams Flower Planter Relationship Specialty Start Date End Date Anila Craven MD PCP - General Internal Medicine 09/03/16 9 Stacy Parry MD PCP - General Internal Medicine 02/21/19 01/20/20 Victoriano Smith MD PCP - General Internal Medicine 01/21/20 07/07/22 Matt Wu MD PCP - General Internal Medicine 07/08/22 Reyna Laboy MD [address] [address] Specialist Neurosurgery 12/22/23 Chris Wallace PA-C [address] [address] Specialist Neurosurgery 03/10/24 Latoya Hardy PA-C [address] [address] Specialist Neurosurgery 03/10/24 documented as of this encounter
--- OUTSIDE RECORDS SUMMARY | 2024-08-18 17:59 | XMS_ITS | Encounter Summary ---
Author Organization [facility] Address [address] [place] [address] Support Name Relationship Address Phone Kimo Sprague Emergency Contact [address] [facility] [address] [place] [address] Care Team Providers Care Hadoop Infrastructure Architect Name Role Phone Anila Craven MD Primary Care Provider Un available Stacy Parry MD Primary Care Provider Unavail able Victoriano Smith MD Primary Care Provider Unava ilable Name, Matt APPIAH Primary Care Provider UnavailReyna Yañez MD Unavailable [phone] Chris Wallace PA-C Unavailable Latoya Hardy PA-C Unavailable Encounter Details Date Type Department Care Team Description 01/07/2019 Marketing Lead Report Medical Records [address] [place] [address] [place] [address] [place], [place] [phone] Social History Tobacco Use Types Packs/Day Years [...] on filedocumented in this encounter Care Teams Hadoop Infrastructure Architect Relationship Specialty Start Date End Date Anila Craven MD PCP - General Internal Medicine 09/03/16 9 Stacy Parry MD PCP - General Internal Medicine 02/21/19 01/20/20 Victoriano Smith MD PCP - General Internal Medicine 01/21/20 07/07/22 Matt Wu MD PCP - General Internal Medicine 07/08/22 Reyna Laboy MD [address] [id number] Specialist Neurosurgery 12/22/23 Chris Wallace PA-C [address] [id number] Specialist Neurosurgery 03/10/24 Latoya Hardy PA-C [address] [address] Specialist Neurosurgery 03/10/24 documented as of this encounter
--- OUTSIDE RECORDS SUMMARY | 2024-08-18 17:59 | XMS_ITS | Encounter Summary ---
Author Organization [facility] Address [address] [place] [address] Support Name Relationship Address Phone Kimo Sprague Emergency Contact [address] [facility] [address] [place] [address] Care Team Providers Care Paste Maker Name Role Phone Makayla Sam DO Primary Care Pro vider Unavailable Anila Craven MD Primary Care Provider Un available Stacy Parry MD Primary Care Provider Unavail able Victoriano Smith MD Primary Care Provider Unava ilable Name, Matt APPIAH Primary Care Provider UnavailReyna Yañez MD Unavailable [phone] Chris Wallace PA-C Unavailable Latoya Hardy PA-C Unavailable [phone] Encounter Details Date Type Department Care Team Description 03/27/2016 Sound Recording Technician Report Medical Records [address] [place] [address] Rj Nevarez MD Social History Tobacco Use [...] on filedocumented in this encounter Care Teams Paste Maker Relationship Specialty Start Date End Date Makayla Sam DO PCP - General Internal Medicine 10/10/14 09/02/16 Anila Craven MD PCP - General Internal Medicine 09/03/16 9 Stacy Parry MD PCP - General Internal Medicine 02/21/19 01/20/20 Victorinao Smith MD PCP - General Internal Medicine 01/21/20 07/07/22 Matt Wu MD PCP - General Internal Medicine 07/08/22 Reyna Laboy MD [address] [address] Specialist Neurosurgery 12/22/23 Chris Wallace PA-C [address] [address] Specialist Neurosurgery 03/10/24 Latoya Hardy PA-C [address] [address] Specialist Neurosurgery 03/10/24 documented as of this encounter
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
--- OUTSIDE RECORDS SUMMARY | 2024-08-18 17:59 | XMS_ITS | Clinical Summary ---
Author Organization 175 [facility] Address [address] [place] [address] Phone Care Team Providers Care Bluing Oven Tender Name Role Phone Name, Matt APPIAH Primary Care Provider [phone] Allergies Active Allergy Reactions Criticality Noted Date [...] Kari esophagitis 10/08/2018 Overview (03/16/2024): F/[place] [facility] Helicobacter pylori (H. 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 Hemorrhoids 06/04/2017 Overview (03/16/2024): Internal & external Nonalcoholic steatohepatitis (HURD) 06/04/2017 Insomnia 08/23/2015 Carpal tunnel syndrome 12/25/2014 Overview (03/16/2024): Bilateral - negative EMG at [place] 2014 Migraine 12/25/2014 Old VT (myocardial infarction) 12/25/2014 Overview (03/16/2024): 1998/ Dr [...] PM EST Office Visit Orthopedic Surgery - [address] [address] Smooth Sharp, DPM Dermatophytosis of nail (Primary Dx); Tinea pedis of both feet from Last 3 Months Immunizations Name Administration Dates Next Due Hepatitis B (Sahqkpp-S-Lbejm , Recombivax HB-Adult) 19yo and older 03/13/2009,02/16/2008,01/11/2008 [...] diabetes mellitus with neurological manifestations, controlled ([facility]) Tricuspid regurgitation 12/25/2014 DX:Tricu spid regurgitation; COMMENT: Mild tricuspid / mild pulmonic Old VT (myocardial infarction) 12/25/2014 D X:Old VT (myocardial infarction); COMMENT: 1998/ Dr Perez Hyperlipidemia [...] Kari esophagitis (CMS/HCC) 10/08/2018 DX :Kari esophagitis ([facility]); COMMENT: F/u GI [facility] Helicobacter pylori [...] PM EDT Office Visit Orthopedic Surgery - [place] [address] [phone] Smooth Sharp, DPM [address] [address] Health Maintenance Due Date Last Done Comments [...] Results * Annual BMP Blood Test (08/27/2019) [facility] Annual BMP Blood Test abstracted Result [facility] Provider HEALTH MAINTENANCE Final Result * (ABNORMAL) Hemoglobin A1c (08/27/2019) [facility] Hemoglobin A1C 6.6(A) <=6.5 % Blood Venous blood specimen / Unknown Result [facility] Provider LAB BLOOD ORDERABLES Bezhad l Result * Cervical Cancer Screening: HPV (05/19/2019) [facility] Cervical Cancer Screening: HPV negative, abstracted Result [facility] Provider HEALTH MAINTENANCE Final Result * Urine Albumin Creatinine Ratio (02/18/2019) [facility] Urine Albumin Creatinine Ratio abstracted Result [facility] Provider HEALTH MAINTENANCE Final Result * (ABNORMAL) Lipid panel (02/18/2019) [facility] LDL/HDL Ratio 7(A) 0 - 4 Triglycerides 443(A) 0 - 150 mg/dL Cholesterol 185 0 - 200 mg/dL HDL 27(A) >=40 mg/dL LDL Cholesterol 70 0 - 100 mg/dL Blood Venous blood specimen / Unknown Result [facility] Provider LAB BLOOD ORDERABLES Behzad l Result * Colonoscopy (09/24/2015) [facility] Colonoscopy no interpretation , abstracted Anatomical Region Laterality Modality Other [facility] Provider HEALTH MAINTENANCE Final Result from Last 3 Months or Most Recently Relevant to Health Maintenance Insurance MEDICAID - [place] Care Teams Bluing Oven Tender Relationship Specialty Start Date End Date Name, MD Matt 4 [facility] PCP - General 07/08/22
--- OUTSIDE RECORDS SUMMARY | 2024-08-18 17:59 | XMS_ITS | Encounter Summary ---
Author Organization [facility] Address [address] [place] [address] Support Name Relationship Address Phone Kimo Sprague Emergency Contact [address] [facility] [address] [place] [address] Care Team Providers Care Hydroelectric Plant Structural Engineer Name Role Phone Anila Craven MD Primary Care Provider Un available Stacy Parry MD Primary Care Provider Unavail able Victoriano Smith MD Primary Care Provider Unava ilable Name, Matt APPIAH Primary Care Provider Unavailabl e Reyna Laboy MD Unavailable [phone] Chris Wallace PA-C Unavailable Latoya Hardy PA-C Unavailable Encounter Details Date Type Department Care Team Description 02/20/2017 Vacuum Drier Tender Report Medical Records [address] [place] [address] Abstract, Provider Social History Tobacco Use Types [...] on filedocumented in this encounter Care Teams Hydroelectric Plant Structural Engineer Relationship Specialty Start Date End Date Anila Craven MD PCP - General Internal Medicine 09/03/16 9 Stacy Parry MD PCP - General Internal Medicine 02/21/19 01/20/20 Victoriano Smith MD PCP - General Internal Medicine 01/21/20 07/07/22 Matt Wu MD PCP - General Internal Medicine 07/08/22 Reyna Laboy MD [address] [address] Specialist Neurosurgery 12/22/23 Chris Wallace PA-C [address] [address] Specialist Neurosurgery 03/10/24 Latoya Hardy PA-C [address] [address] Specialist Neurosurgery 03/10/24 documented as of this encounter
--- OUTSIDE RECORDS SUMMARY | 2024-08-18 17:59 | XMS_ITS | Encounter Summary ---
Author Organization [facility] Address [address] [place] [address] Support Name Relationship Address Phone Kimo Sprague Emergency Contact [address] [facility] [address] [place] [address] Care Team Providers Care Restorative Aide Name Role Phone Makayla Sam DO Primary Care Pro vider Unavailable Anila Craven MD Primary Care Provider Un available Stacy Parry MD Primary Care Provider Unavail able Victoriano Smith MD Primary Care Provider Unava ilable Name, Matt APPIAH Primary Care Provider UnavailReyna Yañez MD Unavailable [phone] Chris Wallace PA-C Unavailable Latoya Hardy PA-C Unavailable [phone] Encounter Details Date Type Department Care Team Description 10/18/2014 Release of Information Medical Records [address] [place] [address] Abstract, Provider Social History Tobacco Use Types [...] on filedocumented in this encounter Care Teams Restorative Aide Relationship Specialty Start Date End Date Makayla Sam DO PCP - General Internal Medicine 10/10/14 09/02/16 Anila Craven MD PCP - General Internal Medicine 09/03/16 9 Stacy Parry MD PCP - General Internal Medicine 02/21/19 01/20/20 Victoriano Smith MD PCP - General Internal Medicine 01/21/20 07/07/22 Bryce, MD Matt PCP - General Internal Medicine 07/08/22 Reyna Laboy MD [address] [id number] Specialist Neurosurgery 12/22/23 Chris Wallace PA-C [address] [address] Specialist Neurosurgery 03/10/24 Latoya Hardy PA-C [address] [address] Specialist Neurosurgery 03/10/24 documented as of this encounter
--- OUTSIDE RECORDS SUMMARY | 2024-08-18 17:59 | XMS_ITS | Encounter Summary ---
Author Organization [facility] Address [address] [place] [address] Support Name Relationship Address Phone Kimo Sprague Emergency Contact [address] [place] [address] Care Team Providers Care Control Engineer Name Role Phone Anila Craven MD Primary Care Provider Un available Stacy Parry MD Primary Care Provider Unavail able Victoriano Smith MD Primary Care Provider Unava ilable Name, Matt APPIAH Primary Care Provider UnavailReyna Yañez MD Unavailable [phone] Chris Wallace PA-C Unavailable Latoya Hardy-C Unavailable Reason for Visit * Reason Onset Date Comments Error 12/23/2016 Encounter Details Date Type Department Care Team Description 12/23/2016 Refill Adult [address] [address] Anila Craven MD Error Social History Tobacco Use Types Packs/Day Years Used Date Smoking Tobacco: Never Alcohol Use Standard Drinks/Week Comments No 0 (1 standard drink = 0.6 oz pur e alcohol) Sex Assigned at Date Recorded Not on file documented as of this encounter Plan of Treatment Not on file documented as of this encounter Visit Diagnoses Not on filedocumented in this encounter Care Teams Control Engineer Relationship Specialty Start Date End Date Anila Craven MD PCP - General Internal Medicine 09/03/16 9 Stacy Parry MD PCP - General Internal Medicine 02/21/19 01/20/20 Victoriano Smith MD PCP - General Internal Medicine 01/21/20 07/07/22 Matt Wu MD PCP - General Internal Medicine 07/08/22 Reyna Laboy MD [address] [id number] Specialist Neurosurgery 12/22/23 Chris Wallace PA-C [address] [id number] Specialist Neurosurgery 03/10/24 Latoya Hardy PA-C [address] [address] Specialist Neurosurgery 03/10/24 documented as of this encounter
--- OUTSIDE RECORDS SUMMARY | 2024-08-18 17:59 | XMS_ITS | Encounter Summary ---
Author Organization [facility] Address [address] [place] [address] Support Name Relationship Address Phone Kimo Sprague Emergency Contact [address] [place] [address] Care Team Providers Care Straight Line Press Setter Name Role Phone Makayla Sam DO Primary Care Pro vider Unavailable Anila Craven MD Primary Care Provider Un available Stacy Parry MD Primary Care Provider Unavail able Victoriano Smith MD Primary Care Provider Unava ilable Name, Matt APPIAH Primary Care Provider UnavailReyna Yañez MD Unavailable [phone] Chris Wallace PA-C Unavailable Latoya Hardy PA-C Unavailable [phone] Encounter Details Date Type Department Care Team Description 04/30/2016 Territory Service Representative Report Medical Records [address] [place] [id number] Abstract, Provider Social History Tobacco Use Types [...] on filedocumented in this encounter Care Teams Straight Line Press Setter Relationship Specialty Start Date End Date Makayla Sam DO PCP - General Internal Medicine 10/10/14 09/02/16 Anila Craven MD PCP - General Internal Medicine 09/03/16 9 Stacy Parry MD PCP - General Internal Medicine 02/21/19 01/20/20 Victoriano Smith MD PCP - General Internal Medicine 01/21/20 07/07/22 Matt Wu MD PCP - General Internal Medicine 07/08/22 Reyna Laboy MD [address] [phone] Specialist Neurosurgery 12/22/23 Chris Wallace PA-C [address] [address] Specialist Neurosurgery 03/10/24 Latoya Hardy PA-C [address] [id number] Specialist Neurosurgery 03/10/24 documented as of this encounter
--- OUTSIDE RECORDS SUMMARY | 2024-08-18 17:59 | XMS_ITS | Encounter Summary ---
Author Organization [facility] Address [address] [place] [address] Support Name Relationship Address Phone Kimo Sprague Emergency Contact [address] [facility] [address] [facility] [place] [address] Care Team Providers Care Benefits Clerk Name Role Phone Anila Craven MD Primary Care Provider Un available Stacy Parry MD Primary Care Provider Unavail able Victoriano Smith MD Primary Care Provider Unava ilable Bryce, Matt APPIAH Primary Care Provider UnavailReyna Yañez MD Unavailable [phone] Chris Wallace PA-C Unavailable Latoya Hardy PA-C Unavailable Reason for Visit * Reason Onset Date Comments Prior Authorization 10/14/2017 [facility] Encounter Details Date Type Department Care Team Description 10/14/2017 Telephone Adult Medicine [address] [address] Alicia Crabtree PA-C [address] [place] [id number] Prior Authorization ([facility]) Social History Tobacco [...] Thank you Please reply back to p [phone] prior authorization pool Jacqueline Aguiar C.M.A. [facility] Prior Authorizations Ext: [phone] * Telephone Encounter - Alicia Crabtree PA-C - 10/19/2017 4:40 PM EDT noted * Telephone Encounter - Alessia Jorge M.A. - 10/19/2017 1:17 PM EDT Esomeprazole 20mg cap, I bid Dx refractory gerd, pt states symptoms come back with 1 a day Tried omeprazole in past Form faxed to [facility] * Telephone Encounter - Smooth Kauffman - [...] Please advise Please reply back to p [phone] Prior Auth pool Alessia Jorge M.A. [facility] Prior Authorizations Ext [phone] * Telephone Encounter - Alessia Jorge M.A. - 10/15/2017 4:21 PM EDT Prior auth form is being faxed to me from [facility] * Telephone Encounter - Dulce Ryan M.A. 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 Jing FARLEY dept Ext [phone] * Telephone Encounter - Ann Lizama - 10/14/2017 8:00 AM EDT Pre Authorization for Medication-do not complete and send this encounter unless you have the fax from the pharmacy. Is this a Cover My Meds request: [place] of Medication esomeprazole (NEXIUM) 20 MG capsule Dose of Medication 20 MG capsule How does patient take this med? Take 1 Cap by mouth 2 times daily. What Pharmacy did the fax come from: [facility] fax #: [phone] Third Republican Information from fax: What Prescription Plan does the patient have? BIN/PCN if applicable: [id number] Cardholder ID:[id number] Person Code: BCAID Relationship Code: 01 Help desk phone: [phone] documented in this encounter Plan of Treatment Not on file documented as of this encounter Visit Diagnoses Not on filedocumented in this encounter Care Teams Benefits Clerk Relationship Specialty Start Date End Date Anila Craven MD PCP - General Internal Medicine 09/03/16 9 Stacy Parry MD PCP - General Internal Medicine 02/21/19 01/20/20 Victoriano Smith MD PCP - General Internal Medicine 01/21/20 07/07/22 NameMatt MD PCP - General Internal Medicine 07/08/22 Reyna Laboy MD [address] [address] Specialist Neurosurgery 12/22/23 Chris Wallace PA-C [address] [address] Specialist Neurosurgery 03/10/24 Latoya Hardy PA-C 175 [facility] [address] [place] [address] Specialist Neurosurgery 03/10/24 documented as of this encounter
--- OUTSIDE RECORDS SUMMARY | 2024-08-18 17:59 | XMS_ITS | Encounter Summary ---
Author Organization [facility] Address [address] [place] [address] Support Name Relationship Address Phone Kimo Sprague Emergency Contact [address] [place] [address] Care Team Providers Care State Patrol Officer Name Role Phone Makayla Sam DO Primary Care Pro vider Unavailable Anila Craven MD Primary Care Provider Un available Stacy Parry MD Primary Care Provider Unavail able Victoriano Smith MD Primary Care Provider Unava ilable Name, Matt APPIAH Primary Care Provider UnavailReyna Yañez MD Unavailable [phone] Chris Wallace PA-C Unavailable [phone] Latoya Hardy PA-C Unavailable Encounter Details Date Type Department Care Team Description 02/27/2015 Controlled Substance Contract with [facility] Medical Records [address] [place] [address] Abstract, Provider Social History Tobacco Use Types [...] on filedocumented in this encounter Care Teams State Patrol Officer Relationship Specialty Start Date End Date Makayla Sam DO PCP - General Internal Medicine 10/10/14 09/02/16 Anila Craven MD PCP - General Internal Medicine 09/03/16 9 Stacy Parry MD PCP - General Internal Medicine 02/21/19 01/20/20 Victoriano Smith MD PCP - General Internal Medicine 01/21/20 07/07/22 Matt Wu MD PCP - General Internal Medicine 07/08/22 Reyna Laboy MD [address] [phone] Specialist Neurosurgery 12/22/23 Chris Wallace PA-C [address] [address] Specialist Neurosurgery 03/10/24 Latoya Hardy PA-C [address] [address] Specialist Neurosurgery 03/10/24 documented as of this encounter
--- OUTSIDE RECORDS SUMMARY | 2024-08-18 17:59 | XMS_ITS | Encounter Summary ---
Author Organization [facility] Address [address] [place] [address] Support Name Relationship Address Phone Kimo Sprague Emergency Contact [address] [place] [address] Care Team Providers Care Etl Informatica Developer Name Role Phone Makayla Sam DO Primary Care Pro vider Unavailable Anila Craven MD Primary Care Provider Un available Stacy Parry MD Primary Care Provider Unavail able Victoriano Smith MD Primary Care Provider Unava ilable Bryce, Matt APPIAH Primary Care Provider Unavailabl Reyna León MD Unavailable [phone] Chris Wallace PA-C Unavailable [phone] Latoya Hardy PA-C Unavailable [phone] Encounter Details Date Type Department Care Team Description 02/11/2016 Grounds Manager Report Medical Records [address] [place] [address] Cecilia Mcgregor, RD, LDN 175 [facility] [address] [place] [address] Social History Tobacco Use Types Packs/Day Years Used Date Smoking Tobacco: Never Alcohol Use Standard Drinks/Week Comments No 0 (1 standard drink = 0.6 oz pur e alcohol) Sex Assigned at Date Recorded Not on file documented as of this encounter Plan of Treatment Not on file documented as of this encounter Visit Diagnoses Not on filedocumented in this encounter Care Teams Etl Informatica Developer Relationship Specialty Start Date End Date Makayla Sam DO PCP - General Internal Medicine 10/10/14 09/02/16 Anila Craven MD PCP - General Internal Medicine 09/03/16 9 Stacy Parry MD PCP - General Internal Medicine 02/21/19 01/20/20 Victoriano Smith MD PCP - General Internal Medicine 01/21/20 07/07/22 Matt Wu MD PCP - General Internal Medicine 07/08/22 Reyna Laboy MD [address] [address] Specialist Neurosurgery 12/22/23 Chris Wallace PA-C 175 [facility] [address] [place] [address] Specialist Neurosurgery 03/10/24 Latoya Hardy PA-C [address] [address] Specialist Neurosurgery 03/10/24 documented as of this encounter
--- OUTSIDE RECORDS SUMMARY | 2024-08-18 17:59 | XMS_ITS | Encounter Summary ---
Author Organization [facility] Address [address] [place] [address] Support Name Relationship Address Phone Kimo Sprague Emergency Contact [address] [place] [address] Care Team Providers Care Mechanical Shovel Operator Name Role Phone Anila Craven MD Primary Care Provider Un available Stacy Parry MD Primary Care Provider Unavail able Victoriano Smith MD Primary Care Provider Unava ilable Bryce, Matt APPIAH Primary Care Provider UnavailReyna Yañez MD Unavailable [phone] Chris WallaceC Unavailable Latoya Hardy PA-C Unavailable Reason for Visit * Reason Onset Date Comments Prior Authorization 08/20/2017 Encounter Details Date Type Department Care Team Description 08/20/2017 Telephone Adult Medicine [address] [address] Anila Craven MD Prior Authorization Social History [...] 3:56 PM EST She already switched to RECESS., she will get a 7 day supply [...] What Pharmacy did the fax come from: [facility] fax #: [phone] Third Libert[employer] Information from fax: What Prescription Plan does the patient have? BIN/PCN if applicable: Cardholder ID: Person Code: Relationship Code: Help desk phone: documented in this encounter Plan of Treatment Not on file documented as of this encounter Visit Diagnoses Not on filedocumented in this encounter Care Teams Mechanical Shovel Operator Relationship Specialty Start Date End Date Anila Craven MD PCP - General Internal Medicine 09/03/16 9 Stacy Parry MD PCP - General Internal Medicine 02/21/19 01/20/20 Victoriano Smith MD PCP - General Internal Medicine 01/21/20 07/07/22 Matt Wu MD PCP - General Internal Medicine 07/08/22 Reyna Laboy MD [address] [address] Specialist Neurosurgery 12/22/23 Chris Wallace PA-C [address] [address] Specialist Neurosurgery 03/10/24 Latoya Hardy PA-C [address] [address] Specialist Neurosurgery 03/10/24 documented as of this encounter
--- OUTSIDE RECORDS SUMMARY | 2024-08-18 17:59 | XMS_ITS | Encounter Summary ---
Author Organization [facility] Address [address] [place] [address] Support Name Relationship Address Phone Kimo Sprague Emergency Contact [address] [place] [address] Care Team Providers Care Homicide Squad Captain Name Role Phone Anila Craven MD Primary Care Provider Un available Stacy Parry MD Primary Care Provider Unavail able Victoriano Smith MD Primary Care Provider Unava ilable Matt Wu MD Primary Care Provider Unavailabl e Reyna Laboy MD Unavailable [phone] Chris WallaceC Unavailable [phone] Latoya Hardy PA-C Unavailable [phone] Encounter Details Date Type Department Care Team Description 11/20/2016 System Safety Engineer Report Medical Records [address] [place] [id number] Rj Nevarez MD Social History Tobacco Use [...] on filedocumented in this encounter Care Teams Homicide Squad Captain Relationship Specialty Start Date End Date Anila Craven MD PCP - General Internal Medicine 09/03/16 9 Stacy Parry MD PCP - General Internal Medicine 02/21/19 01/20/20 Victoriano Smith MD PCP - General Internal Medicine 01/21/20 07/07/22 Matt Wu MD PCP - General Internal Medicine 07/08/22 Reyna Laboy MD [address] [address] Specialist Neurosurgery 12/22/23 Chris Wallace PA-C [address] [address] Specialist Neurosurgery 03/10/24 Latoya Hardy PA-C [address] [address] Specialist Neurosurgery 03/10/24 documented as of this encounter
--- OUTSIDE RECORDS SUMMARY | 2024-08-18 17:59 | XMS_ITS | Encounter Summary ---
Author Organization [facility] Address [address] [place] [address] Support Name Relationship Address Phone Kimo Sprague Emergency Contact [address] [facility] [address] [place] [address] Care Team Providers Care Brake Lining Driller Name Role Phone Anila Craven MD Primary Care Provider Un available Stacy Parry MD Primary Care Provider Unavail able Victoriano Smith MD Primary Care Provider Unava ilable Name, Matt APPIAH Primary Care Provider Unavailabl e Reyna Laboy MD Unavailable [phone] Chris Wallace PA-C Unavailable Latoya Hardy PA-C Unavailable Encounter Details Date Type Department Care Team Description 10/14/2016 Release of Information Medical Records [address] [place] [address] Abstract, Provider Social History Tobacco Use Types [...] on filedocumented in this encounter Care Teams Brake Lining Driller Relationship Specialty Start Date End Date Anila Craven MD PCP - General Internal Medicine 09/03/16 9 Stacy Parry MD PCP - General Internal Medicine 02/21/19 01/20/20 Victoriano Smith MD PCP - General Internal Medicine 01/21/20 07/07/22 Matt Wu MD PCP - General Internal Medicine 07/08/22 Reyna Laboy MD [address] [address] Specialist Neurosurgery 12/22/23 Chris Wallace PA-C [address] [address] Specialist Neurosurgery 03/10/24 Latoya Hardy PA-C [address] [address] Specialist Neurosurgery 03/10/24 documented as of this encounter
== END 2024-08-18 14:36 | disposition home or self-care (01) ==
LOC: HO.HAP 14:35
PROVIDERS: Visit Provider Internal Medicine Geriatric Medicine
DX: Z13.89 Encounter for screening for other disorder (principal)

== ENCOUNTER 2024-09-09 12:44 | Outpatient (REF) | payer MEDICAID, SELFPAY ==
[2024-09-10 11:47] LABS: H Pylori Breath Test Positive (Negative)
== END 2024-09-09 12:45 | disposition home or self-care (01) ==
LOC: HO.LAB 12:44
PROVIDERS: PCP Internal Medicine Geriatric Medicine; Visit Provider Internal Medicine Gastroenterology
DX: K21.9 Gastro-esophageal reflux disease without esophagitis (principal); K59.00 Constipation, unspecified; K31.84 Gastroparesis
CPT/HCPCS: 83013; 99212

== ENCOUNTER 2024-09-09 13:13 | Outpatient (AMB) | payer MEDICAID, SELFPAY ==
--- NOTE | 2024-09-09 13:26 | A.OFFVIS_ITS ---
Intake Visit Reasons: h pylori Intake Note: Patient presents for collection of H Pylori breath test. Patient has been fasting for 1 hour (nothing to eat, drink, no chewing gum or smoking) has not taken any antacid medication for at least 2 weeks and has no allergies to artificial sweeteners.?? Allergies acetaminophen [From Vicodin] Allergy (Intermediate, Verified 09/09/24 13:27) Palpitations, Itch amoxicillin [Prevpac] Allergy (Intermediate, Verified 09/09/24 13:27) itchy throat hydrocodone [From Vicodin] Allergy (Intermediate, Verified 09/09/24 13:27) Palpitations, Itch ibuprofen [From Motrin] Allergy (Intermediate, Verified 09/09/24 13:27) UPSET STOMACH, abdominal pain lansoprazole [Prevpac] Allergy (Intermediate, Verified 09/09/24 13:27) itchy throat morphine [MORPHINE] Allergy (Intermediate, Verified 09/09/24 13:27) PALPATATIONS, PANIC ATTACKS, nauseas,panic attack, heart palpitations omeprazole [From PRILOSEC] Allergy (Intermediate, Verified 09/09/24 13:27) ITCHY THROAT pravastatin [PRAVASTATIN] Allergy (Intermediate, Verified 09/09/24 13:27) UNKNOWN rosuvastatin [From CRESTOR] Allergy (Intermediate, Verified 09/09/24 13:27) UNKNOWN terbinafine [TERBINAFINE] Allergy (Intermediate, Verified 09/09/24 13:27) UNKNOWN atorvastatin [From LIPITOR] Allergy (Unknown, Verified 09/09/24 13:27) UNKNOWN clarithromycin [From BIAXIN] Adverse Reaction (Intermediate, Verified 09/09/24 13:27) ABD PAIN, DIARRHEA gabapentin [GABAPENTIN] Adverse Reaction (Intermediate, Verified 09/09/24 13:27) UNKNOWN, nausea, dizziness levofloxacin [LEVOFLOXACIN] Adverse Reaction (Intermediate, Verified 09/09/24 13:27) PALPITATIONS tylenol with codeine Allergy (Unknown, Uncoded 06/17/24 13:10) fast heart rate [facility] Medical History Encounter for well woman exam with routine gynecological exam Umbilical hernia Scalp mass Irritable bowel syndrome with diarrhea Allergic rhinitis Lumbar degenerative disc disease Breast pain during Carpal tunnel syndrome Arthritis Morbid obesity with BMI of 40.0-44.9, adult Insomnia Diabetes mellitus Benign essential hypertension Polyarthralgia Fibromyalgia Mixed hyperlipidemia Candidiasis of mouth and esophagus Thoracic spondylosis Surgical History Hx of dilation and curettage History of endometrial ablation Hx of colonoscopy History of esophagogastroduodenoscopy (EGD) History of dermoid cyst excision History of excision of lamina of cervical vertebra for decompression of spinal cord H/O hemorrhoidectomy History of appendectomy Family History Father NIDDY (non-insulin dependent diabetes mellitus in young) Cardiovascular disease Obesity Cancer of unknown origin Colon cancer Mother CAD (coronary artery disease) NIDDY (non-insulin dependent diabetes mellitus in young) Brother Schizophrenia Degenerative disc disease H/O lymph node cancer Sister Breast cancer Colon cancer Paternal Grandmother Ovarian cancer, Onset Age: 45 Daughter Fibromyalgia Hypertension Cancer of unknown origin Ovarian cancer Other Mental health problem Social History Household Members: None Housing: Apartment Alcohol intake: never Patient Tobacco Use Status: Never used Tobacco e-Cigarette/Vaping Use: Never Used Second Hand Smoke Exposure: No service: No Current occupational status: disabled 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 Patient has been fasting for 1 hour (nothing to eat, drink, no chewing gum or smoking) has not taken any antacid medication for at least 2 weeks and has no allergies to artificial sweeteners.???This test checks for an overgrowth of bacteria in your stomach. We all have bacteria but some may have more than others. It is treatable. if the test comes back negative there is nothing else to do. If the test result is positive we will treat you with 2 antibiotics and a medication to decrease the acid in your stomach (PPI) for 2 weeks. Two weeks after you have c ompleted the treatment we will retest you to make sure the overgrowth has resolved. Patient Instructions: Process for specimen collection and reason for testing was explained to the patient. Specimen collection. Patient instructed to take a deep breath and then exhale into the blue bag, filling it up as much as possible. Patient instructed to drink a mixture of water and the artificial sweetener with a straw. A 15 minute wait period was observed. Patient instructed to take a deep breath and then exhale into the pink bag, filling it up as much as possible.?? Coding Level of Care Code Established Pt New Pt Level 2 (18252) Patient Type Established Diagnoses Gastroesophageal reflux disease without esophagitis K21.9 Esophagitis presence: without esophagitis
== END 2024-09-09 13:32 | disposition home or self-care (01) ==
LOC: HO.HGI 13:13
PROVIDERS: PCP Internal Medicine Geriatric Medicine; Visit Provider Internal Medicine Gastroenterology
DX: K21.9 Gastro-esophageal reflux disease without esophagitis (principal)
CPT/HCPCS: 99024

== ENCOUNTER 2024-09-14 14:15 | Outpatient (REF) | payer MEDICAID, SELFPAY ==
--- NOTE | ~2024-09-14 | CT_ITS ---
CLINICAL HISTORY: N20.0 - Calculus of kidney CT abdomen and pelvis without contrast Comparison: CT/REG/TN/SR - CT ABDOMEN PELVIS WO IV CON - 05/22/23 22:33 EST Findings: No consolidation or effusion. Unremarkable gallbladder and solid organs. No urolithiasis. No bowel obstruction, pneumoperitoneum, or pneumatosis. Pelvic contents unremarkable. Appendix is not seen. No acute fracture. IMPRESSION: No acute findings. This document has been electronically signed by: Kimberly Mcclure MD on 09/15/2024 16:48:25
--- OUTSIDE RECORDS SUMMARY | 2024-09-14 17:02 | XMS_ITS | Encounter Summary ---
Author Organization [facility] Address [address] [facility] [address] [place] [address] Care Team Providers Care Family Service Center Director Name Role Phone Name, Matt APPIAH Primary Care Provider Reason for Visit * Reason Onset Date Comments Med Refill 01/21/2024 Encounter Details Date Type Department Care Team (Late st Contact Info) Description 01/21/2024 Telephone [facility] [address] [place] [address] Name, MD Matt [address] [place] [address] Med Refill Social History Tobacco Use Types [...] 10 MG tablet To be sent to: [facility] - [place], [place] - [phone] [place] - [address] documented in this encounter Plan of Treatment Upcoming Encounters Date Type Department Care Team (Late st Contact Info) Description 11/30/2024 2:30 PM EDT Office Visit [facility] [address] [place] [address] Name, MD Matt [address] [place] [address] documented as of this encounter Visit Diagnoses Not on filedocumented in this encounter Additional Health Concerns Assessment Noted Time PHQ-9 Depression Total Score: 0 09/07/19 3:15 PM EDT documented as of this encounter Care Teams Family Service Center Director Relationship Specialty Start Date End Date Name, MD Matt [address] [place] [address] PCP - General Family Medicine 02/21/22 Estephanie Tan Buttermaker HelperBanquet Chef 11/24/23 documented as of this encounter
--- OUTSIDE RECORDS SUMMARY | 2024-09-14 17:02 | XMS_ITS | Data Portability ---
Author Organization [place] - [facility], Allergy Address [address] [place] [address] Care Team Providers Care Gas Analyst Name Role Phone YOLANDA VANEGAS Referring Provider [...] for amplification. Recommend she follow up with [facility], and discussed hearing aids would help [...] Organization Details Recorded Time Dizziness and giddiness 221034721 Active 2017 Dizziness and giddiness ; Note: Date Diagnosed : 02/11/2018 2:44 PM (R42) Not Available [facility] 4 03:04:54 Sensorine ural hearing loss of bilateral ears 572496551 Active 2020 Sensorine ural hearing loss, bilateral ; Note: Date Diagnosed : 01/10/2021 2:50 PM (H90.3) Not Available [facility] 4 03:04:55 Headache 95549310 Active 2017 Headache, unspecifi ed; Note: Changed from R51 to R51.9 (07/19/2021 2:06 PM) , Date Diagnosed : 02/11/2018 2:44 PM (R51) Not Available [facility] 4 03:04:55 Migraine 50221416 Active 2020 Other migraine, not intractab le, without status migrainos us; Note: Date Diagnosed : 1 4:10 PM (G43.809) Not Available [facility] 4 03:04:56 Gastroeso phageal reflux disease without esophagit is 973155353 Active 2017 Gastro-es ophageal reflux disease without esophagit is; Note: Date Diagnosed : 03/05/2018 1:19 PM (K21.9) Not Available [facility] 4 03:04:53 Cough 04304552 Active 2017 Cough; Note: Date Diagnosed : 03/05/2018 1:16 PM (R05) Not Available [facility] 4 03:04:55 Referred otalgia of left ear 73891026562 23559 Active 2023 MARISSA CARCAMO PA-C [address] [facility] [place],[facility], [facility] [place], [address] , [facility] - [facility] 4 12:01:45 Bilateral tinnitus 13668177407 02 Active 2023 MARISSA CARCAMO PA-C 100 [facility] [place],[facility], [facility] [place], [address] , [place] - [facility] 4 12:01:52 Problem Notes None recorded. Procedures Surgical History Date Name Laterality Status Provider Name and Address Organization Details Recorded Time 024 Air & Speech Audio with Tymps (87511, 10929 & 34750) completed SHAHLA SLOAN 100 [facility], [place], [address], [facility] - [facility] 05/27/2024 11:03:21 hemorrhoidectomy completed Mica Horner [place] - [facility] 05/27/2024 10:56:11 Appendectomy completed Mica Horner [place] - [facility] 05/27/2024 10:56:15 Imaging Results Imaging Date [...] Name and Address Organization Details Recorded Time 17883 gabapenti n medicatio n other Not available Not available 10/27/2023 12929 RxNorm React ion: unkno wn, unspe cifie d;; Not Available [facility] 4 00:48:25 26993 terbinafi ne medicatio n other Not available Not available 10/27/2023 75399 RxNorm React ion: unkno wn, unspe cifie d;; Not Available [facility] 4 00:48:25 61126 Lipitor medicatio n other Not available Not available 10/27/2023 39078 5 RxNorm React ion: unkno wn, unspe cifie d;; Not Available [facility] 4 00:48:25 68909 Crestor medicatio n other Not available Not available 10/27/2023 25095 4 RxNorm React ion: unkno wn, unspe cifie d;; Not Available [facility] 4 00:48:34 06096 sodium medicatio n other Not available Not available 10/27/2023 9853 RxNorm React ion: unkno wn, unspe cifie d;; Not Available [facility] 4 00:48:41 48658 Biaxin medicatio n other Not available Not available 10/27/2023 07188 9 RxNorm React ion: unkno wn, unspe cifie d;; Not Available [facility] 4 00:48:42 46695 Motrin medicatio n other Not available Not available 10/27/2023 11251 8 RxNorm React ion: unkno wn, unspe cifie d;; Not Available [facility] 4 00:48:53 41706 morphine medicatio n other Not available Not available 10/27/2023 7052 RxNorm React ion: unkno wn, unspe cifie d;; Not Available [facility] 4 00:48:59 35008 acetamino phen / hydrocodo ne medicatio n other Not available Not available 10/27/2023 72930 2 RxNorm React ion: unkno wn, unspe cifie d;; Not Available [facility] 4 00:49:06 97433 pravastat in medicatio n other Not available Not available 10/27/2023 45181 RxNorm React ion: unkno wn, unspe cifie d;; Not Available [facility] 4 00:49:07 Medications Name Sig Start Date Stop Date Status Note LastModified by Organization Details LastModified Time nystatin 100,000 unit/mL oral suspensio n 05/27 completed Medicati on ID: [id number] D uration Value: 30 Brand Name: nystatin [...] Alcohol Pads 05/27 completed Medicati on ID: [id number] D uration Value: 30 Brand Name: Alcohol [...] mg tablet 05/27 completed Medicati on ID: [id number] D uration Value: 30 Brand Name: carvedil ol Send Method: E-Prescr ibed Sub s Allowed: subs OK Speci al Instruct ion: TAKE ONE TABLET BY MOUTH 2 (two) times a day WITH A MEAL Med [facility] enElizabet me: carvedil ol Not [...] mg tablet 05/27 completed Medicati on ID: [id number] D uration Value: 28 Brand Name: zolpidem [...] ating tablet 05/27 completed Medicati on ID: [id number] D uration Value: 30 Brand Name: bree [...] elayed release 05/27 completed Medicati on ID: [id number] D uration Value: 30 Brand Name: donald [...] unit) capsule 2017 active Medicati on ID: [id number] D uration Value: 30 Brand Name: D3 Send Method: E-Prescr ibed Sub s Allowed: subs OK Speci al Instruct ion: TAKE ONE CAPSULE BY MOUTH DAILY Me dication GenericN louie: D3-2000 Not Available Not Available Not Available Easy Comfort Lancets 30 gauge 05/27 completed Medicati on ID: [id number] D uration Value: 30 Brand Name: Easy [...] History Nothing Reported. Medical History Condition Response Diabetes Y Allergies/Hayfever Y Anxiety Y GERD/Reflux Y High Cholesterol Y Migraines Y Hypertension Y Depression Y Asthma Y Gynecological HistoryNo gynecological history recorded. Obstetrics History GPAL:G 0 P 0 0 0 0 Past Encounters Encounter ID Performer Location Encounter Start Date Encounter Closed Date Diagnosis/Indication Diagnosis SNOMED-CT Code Diagnosis ICD10 Code Diagnosis Note [id number] MIGUEL NATH MD [facility] [address] [address] 05/27/2024 10:49:53 05/27/2024 11:53:18 Sensorineural hearing loss of bilateral ears [id number] H90.3 Right Ear:Normal hearing through 2K Hz sloping to a profound SNHL with good speech discrimina tion.Type A tympanogra m.Left Ear:Normal hearing through 2K Hz sloping to a profound SNHL with good speech discrimina tion.Type A tympanogra m. Referred o talgia of left ear 0208692314 269203 H92.02 Bilateral tinnitus 91401 44485 102 H93.13 Health Concerns Section Related Observation LastModified by Organization Detai ls LastModified Time None Recorded Concern Status LastModified by Organization Details LastModified Time None Recorded Advance Directives Directive None Recorded Payers Encounter Date Sequence Insurance Name Policy Number Policy Juárez Covered Member ID Juárez Member ID Guarantor Name 05/27/2024 1 [place] [facility] Farrah Yancey [id number] Farrah Yancey Notes Date Note Type Note [...] caused pruritus. The amplification was dispensed by capsule inspector in [place]. Denies otorrhea or dizziness. Denies prior history of ear infections or ear surgeries. No history of loud noise exposure. No Qtip use. History of migraine. MIGUEL NATH MD [address] [place] [address], [address], [place] - [facility] 05/28/2024 13:57:56 OBGyn Episode No OBEpisode recorded.
--- OUTSIDE RECORDS SUMMARY | 2024-09-14 17:02 | XMS_ITS | Clinical Summary ---
Author Organization [facility] Address [address] [place] [address] Phone Care Team Providers Care Supervisor Tellers Name Role Phone Name, Matt APPIAH Primary Care Provider [phone] Allergies Active Allergy Reactions Criticality Noted Date [...] (10 mg total) by mouth daily. 4 11/06/19 25 Active fluconazole (DIFLUCAN) 150 mg tablet Take [...] into each nostril every 12 hours. 4 09/30/19 25 Active tiZANidine (ZANAFLEX) 4 mg capsule Take [...] 5 minutes then rinse off 4 Active Active Problems Problem Noted Date Diagnosed Date [...] Kari esophagitis 10/08/2018 Overview (03/16/2024): F/u GI [facility] Helicobacter pylori (H. 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 Hemorrhoids 06/04/2017 Overview (03/16/2024): Internal & external Nonalcoholic steatohepatitis (HURD) 06/04/2017 Insomnia 08/23/2015 Carpal tunnel syndrome 12/25/2014 Overview (03/16/2024): Bilateral - negative EMG at [place] 2014 Migraine 12/25/2014 Old ID (myocardial infarction) 12/25/2014 Overview (03/16/2024): 1998/ Dr [...] PM EST Office Visit Orthopedic Surgery - [address] [address] Smooth Sharp, DPM Dermatophytosis of nail (Primary Dx); Tinea pedis of both feet from Last 3 Months Immunizations Name Administration Dates Next Due Hepatitis B (Nlwneeh-U-Ukkgj , Recombivax HB-Adult) 19yo and older 03/13/2009,02/16/2008,01/11/2008 [...] diabetes mellitus with neurological manifestations, controlled ([facility]) Tricuspid regurgitation 12/25/2014 DX:Tricu spid regurgitation; COMMENT: Mild tricuspid / mild pulmonic Old ID (myocardial infarction) 12/25/2014 D X:Old ID (myocardial infarction); COMMENT: Ej/ Dr Perez Hyperlipidemia 08/07/2011 DX:Hyperlipidemi a; COMMENT: [...] esophagitis (CMS/HCC) 10/08/2018 DX :Kari esophagitis ([facility]); COMMENT: F/u GI C Helicobacter pylori (H. pylo ri) infection 10/08/2018 DX:Helicobacter pylori (H. p ylori) infection; COMMENT: F/u GI [facility] Family History Medical History Relation Name Comments [...] PM EDT Office Visit Orthopedic Surgery - [address] [phone] Smooth Sharp, DPElizabeth [address] [address] Health Maintenance Due Date Last Done Comments [...] Results * Annual BMP Blood Test (08/27/2019) Annual BMP Blood Test abstracted Historical Provider MD HEALTH MAINTENANCE Final Result * (ABNORMAL) Hemoglobin A1c (08/27/2019) [facility] Hemoglobin A1C 6.6(A) <=6.5 % Blood Venous blood specimen / Unknown [facility] Provider LAB BLOOD ORDERABLES Behzad l Result * Cervical Cancer Screening: HPV (05/19/2019) [facility] Cervical Cancer Screening: HPV negative, abstracted [facility] Provider HEALTH MAINTENANCE Final Result * Urine Albumin Creatinine Ratio (02/18/2019) [facility] Urine Albumin Creatinine Ratio abstracted [facility] Provider HEALTH MAINTENANCE Final Result * (ABNORMAL) Lipid panel (02/18/2019) [facility] LDL/HDL Ratio 7(A) 0 - 4 Triglycerides 443(A) 0 - 150 mg/dL Cholesterol 185 0 - 200 mg/dL HDL 27(A) >=40 mg/dL LDL Cholesterol 70 0 - 100 mg/dL Blood Venous blood specimen / Unknown Result [facility] Provider LAB BLOOD ORDERABLES Behzad l Result * Colonoscopy (09/24/2015) [facility] Colonoscopy no interpretation , abstracted Anatomical Region Laterality Modality Other [facility] Provider HEALTH MAINTENANCE Final Result from Last 3 Months or Most Recently Relevant to Health Maintenance Insurance MEDICAID - [place] Care Teams Supervisor Tellers Relationship Specialty Start Date End Date Name, MD Matt [address] [place], [place] PCP - General 07/08/22
--- OUTSIDE RECORDS SUMMARY | 2024-09-14 17:02 | XMS_ITS | Encounter Summary ---
Author Organization [employer] Address [address] [facility] [address] [place] [address] Care Team Providers Care Chip Unloader Name Role Phone Name, Matt APPIAH Primary Care Provider [phone] Encounter Details Date Type Department Care Team (Late st Contact Info) Description 09/09/2024 Orders Only GENERIC EXTERNAL DATA DEPARTMENT Provider, [...] Description 11/30/2024 2:30 PM EDT Office Visit [facility] [address] [place] [address] Name, MD Matt [address] [place] [address] documented as of this encounter Procedures Procedure Name Priority Date/Time Associated Diagnosis Comments HELICOBACTER PYLORI, UREA BREATH TEST Routine 09/09/2024 1:40 PM EDT documented in this encounter Results * Helicobacter pylori, Urea Breath Test (09/09/2024 1:40 PM EDT) H. pylori Breath Test Positive Negative [facility] Comment:Antimicrobials, prot on pump inhibitors and bismuthpreparations are known to suppress H. pylori. Ingestingthese medications within two weeks prior to performing thebreath test may produce negative test results. A positiveresult is still clinically valid. 09/09/2024 1:40 PM EDT 09/09/2024 2:19 PM EDT us Generic External Data Provider LAB BLOOD ORDERAB LES Final Result [facility] [address] [place] [address] [phone] documented in this encounter Visit Diagnoses Not on filedocumented in this encounter Additional Health Concerns Assessment Noted Time PHQ-9 Depression Total Score: 0 09/07/19 24 3:15 PM EDT documented as of this encounter Care Teams Chip Unloader Relationship Specialty Start Date End Date Name, MD Matt [address] [place] [address] PCP - General Family Medicine 02/21/22 Estephanie Tan Phone BankerAircraft Navigator 11/24/23 documented as of this encounter
--- OUTSIDE RECORDS SUMMARY | 2024-09-14 17:02 | XMS_ITS | Encounter Summary ---
Author Organization [employer] Address [address] [facility] 7t [place] [address] Care Team Providers Care Drag Out Worker Name Role Phone Name, Matt APPIAH Primary Care Provider [phone] Encounter Details Date Type Department Care Team ([facility] st Contact Info) Description 08/05/2024 Orders Only [facility] [address] [place], [place] [phone] Yolande Knight MD [address] [place], [place] [phone] Social History Tobacco Use Types Packs/Day Years [...] 11/30/2024 2:30 PM EDT Office Visit [facility] [address] [place] [phone] Name, MD Matt [address] [place] [address] documented as of this encounter Visit Diagnoses Not on filedocumented in this encounter Additional Health Concerns Assessment Noted Time PHQ-9 Depression Total Score: 0 09/07/19 24 3:15 PM EDT documented as of this encounter Care Teams Drag Out Worker Relationship Specialty Start Date End Date NameMatt MD [address] [place] [address] PCP - General Family Medicine 02/21/22 Estephanie Tan Manager CommunitySupervisor Calibration 11/24/23 documented as of this encounter
--- OUTSIDE RECORDS SUMMARY | 2024-09-14 17:02 | XMS_ITS | Encounter Summary ---
Author Organization [employer] Address [address] [facility] 7[address] [place] [address] Care Team Providers Care Vice President Biostatistics Name Role Phone Name, Matt APPIAH Primary Care Provider [phone] Reason for Visit * Reason Onset Date Comments Durable Medical Equipment 04/06/2024 Encounter Details Date Type Department Care Team (Late st Contact Info) Description 04/06/2024 Telephone [facility] [address] [place], [place] [phone] Name, MD Matt [address] [place] [address] Durable Medical Equipment Social History Tobacco Use [...] PM EDT Office Visit [facility] [address] [place] [phone] Name, MD Matt [address] [place] [address] documented as of this encounter Visit Diagnoses Not on filedocumented in this encounter Additional Health Concerns Assessment Noted Time PHQ-9 Depression Total Score: 0 09/07/19 24 3:15 PM EDT documented as of this encounter Care Teams Vice President Biostatistics Relationship Specialty Start Date End Date Name, MD Matt [address] [place], [place] [phone] PCP - General Family Medicine 02/21/22 Estephanie Tan Supervisor Cook HouseNba Player 11/24/23 documented as of this encounter
--- OUTSIDE RECORDS SUMMARY | 2024-09-14 17:02 | XMS_ITS | Encounter Summary ---
Author Organization [employer] Address [address] [place] [address] 7t [place] [address] Care Team Providers Care Spray Cementer Name Role Phone Name, Matt APPIAH Primary Care Provider [phone] Reason for Visit * Reason Onset Date Comments triage 09/18/2022 Encounter Details Date Type Department Care Team ([facility] st Contact Info) Description 09/18/2022 Telephone [facility] [address] [place], [place] [phone] Name, MD Matt [address] [place], [place] [phone] triage Social History Tobacco Use Types Packs/Day [...] The caller accepted this outcome pt speaks st helenian documented in this encounter Plan of Treatment Upcoming Encounters Date Type Department Care Team (Late st Contact Info) Description 11/30/2024 2:30 PM EDT Office Visit [facility] [address] [place] [address] Matt Wu MD [address] [place] [address] documented as of this encounter Visit Diagnoses Not on filedocumented in this encounter Care Teams Spray Cementer Relationship Specialty Start Date End Date NameMatt MD [address] [place] [address] PCP - General Family Medicine 02/21/22 Estephanie Tan Programmer Analyst ConsultantSkate Maker 11/24/23 documented as of this encounter
--- OUTSIDE RECORDS SUMMARY | 2024-09-14 17:02 | XMS_ITS | Encounter Summary ---
Author Organization [employer] Address [address] [facility] 7t [place] [address] Care Team Providers Care Acoustics Teacher Name Role Phone Name, Matt APPIAH Primary Care Provider [phone] Reason for Visit * Reason Onset Date Comments Med Refill 09/24/2023 Encounter Details Date Type Department Care Team (Late st Contact Info) Description 09/24/2023 Telephone [facility] [address] [place] [address] Name, MD Matt [address] [place] [address] Med Refill Social History Tobacco Use Types [...] 10 MG tablet To be sent to: [facility] [place], [place] - [phone] - [place] - [address] documented in this encounter Plan of Treatment Upcoming Encounters Date Type Department Care Team (Late st Contact Info) Description 11/30/2024 2:30 PM EDT Office Visit [facility] [address] [place] [address] Name, MD Matt [address] [place] [address] documented as of this encounter Visit Diagnoses Not on filedocumented in this encounter Additional Health Concerns Assessment Noted Time PHQ-9 Depression Total Score: 0 09/07/19 24 3:15 PM EDT documented as of this encounter Care Teams Acoustics Teacher Relationship Specialty Start Date End Date Name, MD Matt [address] [place] [address] PCP - General Family Medicine 02/21/22 Estephanie Tan MohelExperimental Technician 11/24/23 documented as of this encounter
--- OUTSIDE RECORDS SUMMARY | 2024-09-14 17:02 | XMS_ITS | Encounter Summary ---
Author Organization [employer] Address [address] [facility] 7t [place] [address] Care Team Providers Care Roof Mechanic Name Role Phone Name, Matt APPIAH Primary Care Provider [phone] Reason for Visit * Reason Onset Date Comments Med Refill 06/22/2024 Encounter Details Date Type Department Care Team (Late st Contact Info) Description 06/22/2024 Telephone [facility] [address] [place] [address] Name, MD Matt [address] [place] [address] Med Refill Social History Tobacco Use Types [...] 10 MG tablet To be sent to: [facility] [place], [place] - [phone] - [place] - [address] documented in this encounter Plan of Treatment Upcoming Encounters Date Type Department Care Team (Late st Contact Info) Description 11/30/2024 2:30 PM EDT Office Visit [facility] [address] [place] [address] Name, MD Matt [address] [place] [address] documented as of this encounter Visit Diagnoses Not on filedocumented in this encounter Additional Health Concerns Assessment Noted Time PHQ-9 Depression Total Score: 0 09/07/19 24 3:15 PM EDT documented as of this encounter Care Teams Roof Mechanic Relationship Specialty Start Date End Date NameMatt MD [address] [place] [address] PCP - General Family Medicine 02/21/22 Estephanie Tan House Furnishings SupervisorWindow Maker 11/24/23 documented as of this encounter
--- OUTSIDE RECORDS SUMMARY | 2024-09-14 17:02 | XMS_ITS | Clinical Summary ---
Author Organization [employer] Address [address] [facility] [address] [place] [address] Care Team Providers Care Slasher Hand Name Role Phone Name, Matt APPIAH Primary Care Provider [phone] Allergies Active Allergy Reactions Criticality Noted Date [...] DOS SOPLIDOS DOS VECES AL D A 022 Active Diclofenac Sodium 1 % gel Apply topically. 2 times every day to the affected area Active dicyclomine (Bentyl) 10 MG capsule TOME YOANNA C PSULA CUATRO VECES AL D A ANTES DE LAS COMIDAS Active famotidine (Pepcid) 40 MG tablet Take 1 tablet by mouth at bedtime. Active pantoprazole (ProtoNix) 40 MG EC tablet TOME YOANNA TABLETA DOS VECES AL D A Active Blood Glucose Monitoring Suppl (FreeStyle Lite) device Inject under the skin if needed. Use as instructed Active clindamycin (Cleocin T) 1 % lotionIndicatio ns:Scalp psoriasis APLIQUE CAPA BEHZAD EL AREA AFECTADA TODOS LOS HAM 60 mL 3 023 Active ipratropium (Atrovent) 0.03 % nasal sprayIndication s:Acute cough,Seasonal allergies Administer 2 sprays into each nostril every 12 (twelve) hours. 30 mL 12 2024 Active mometasone (Elocon) 0.1 % ointment Apply topically Once per day. 15 g 024 2024 Active fluticasone (Flonase) 50 MCG/ACT nasal sprayIndication s:Acute cough,Seasonal allergies SPRAY TWICE IN EACH NOSTRIL ONCE DAILY IN THE MORNING. shake gently. Before first use, prime pump. After use, clean tip and replace cap 48 g Active cetirizine (ZyrTEC) 10 MG tabletIndicatio ns:Acute cough,Seasonal allergies TAKE 1 TABLET BY MOUTH ONCE DAILY IN THE MORNING 90 tablet Active glucose blood (FREESTYLE LITE) test strip USE TO TEST FINGER STICK BLOOD SUGAR ONCE DAILY 100 strip 11 Active albuterol (2.5 MG/3ML) 0.083% nebulizer solution INHALE 1 VIAL VIA NEBULIZER 4 TIMES A DAY NEEDED FOR SHORTNESS OF BREATH OR WHEEZING FOR 30 DAYS 75 mL 11 Active hydroCHLOROthia zide (HYDRODiuril) 25 MG tabletIndicatio ns:Hypertension , unspecified type TAKE 1 TABLET BY MOUTH ONCE DAILY 90 tablet 1 10/31/2 024 Active Synjardy 12.5-500 MG TAKE 1 TABLET BY MOUTH two (2) times a day (WITH BREAKFAST, AND WITH DINNER) 180 tablet 3 024 Active aspirin (Aspirin Low Dose) 81 MG EC tabletIndicatio ns:Essential hypertension TAKE 1 TABLET BY MOUTH ONCE DAILY 90 tablet 025 Active carvedilol (Coreg) 6.25 MG tabletIndicatio ns:Essential hypertension TAKE 1 TABLET BY MOUTH two (2) times a day WITH A MEAL 180 tablet 1 025 Active Praluent 75 MG/ML injection INJECT THE CONTENT OF 1 syringe SUBCUTANEOUSLY EVERY 14 DAYS 025 Active zolpidem (Ambien) 10 MG tabletIndicatio ns:Insomnia, unspecified type TAKE 1 TABLET BY MOUTH EVERY NIGHT AT BEDTIME FOR SLEEP 30 tablet 025 Active olopatadine (Patanol) 0.1 % ophthalmic solution Administer 1 drop into affected eye(s) 2 times daily. 5 mL 2 024 2024 zolpidem (Ambien) 10 MG tabletIndicatio ns:Insomnia, unspecified type TAKE 1 TABLET BY MOUTH EVERY NIGHT AT BEDTIME FOR SLEEP 30 tablet 025 2024 Discontinued Active Problems Problem Noted Date Diagnosed Date History of cervical spinal surgery 03/22/2024 Overview (03/22/2024): s/p C4-5 ACDF on 03/01/2024 C5-6, C6-7 ACDF with plating on 08/25/[address] Laboy at [facility] Class 2 obesity 11/06/2023 CLARA (generalized anxiety [...] to referral. She requested referral in [facility]. Provided education around integrated medicine and the options of follow up BE's as needed. Provided contact information should questions or concerns arise. ?? Plan: Farrah will engage in effective coping mechanisms to manage sxs. Referral will be placed for Ind Therapy and Psychiatrist at [facility], per her request. 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 Hemorrhoids 06/04/2017 Overview (11/06/2023): Internal & external Nonalcoholic steatohepatitis (HURD) 06/04/2017 Insomnia 08/23/2015 Carpal tunnel syndrome 12/25/2014 Overview (01/01/2023): Bilateral - negative EMG at [place] 2014 Osteoarthritis 12/25/2014 Overview (01/01/2023): Hands, knees, [...] reflux disease) 2 Overview (01/01/2023): F/u GI [facility] H/o H.pylori x 3 Resolved Problems Problem Noted Date Diagnosed Date Resolved Date Rash 08/04/2024 08/15/2024 Assessment & Plan (08/04/2024 4:19 PM EST): Blood work ordered today, patient will be contacted with results I will refer her to dermatology Helicobacter pylori gastritis 10/29/2018 08/15/2024 Helicobacter pylori (H. 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 08/15/2024 Foot callus 04/13/2018 07/08/2023 Onychomycosis 03/23/2018 07/08/2023 Old ME (myocardial infarction) 12/25/2014 11/06/2023 Overview (01/01/2023): 1998/ Dr Perez 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 07/08/2023 Other psoriasis and similar disorders 12/03/2011 07/08/2023 Encounters Date Type Department Care Team Description 09/09/2024 Orders Only GENERIC EXTERNAL DATA DEPARTMENT Provider, Generic External Data 08/18/2024 Refill [facility] [address] [place], [place] [phone] Name, MD Matt Insomnia, unspecified type 08/15/2024 2:30 PM EST Office Visit [facility] [address] [place] [address] Name, MD Matt Type 2 diabetes mellitus with neurological manifestations, controlled (CMS/[facility]) (Primary Dx); Hypertension, unspecified type; High cholesterol; Vaccination refused by patient 08/15/2024 Travel 08/10/2024 Telephone [facility] MED & PEDS [address] [place] [address] Matt Wu MD chartprep 08/08/2024 Telephone [facility] [address] [place] [phone] Yolande Knight MD 08/05/2024 Orders Only [facility] [address] [place] [phone] Yolande Knight MD 08/04/2024 3:20 PM EST Office Visit [facility] WALK-IN [address] [phone] Yolande Knight MD Rash (Primary Dx); Primary hypertension 08/04/2024 Orders Only GENERIC EXTERNAL DATA DEPARTMENT Provider, Generic External Data 08/04/2024 Travel 08/04/2024 Telephone [facility] [address] [place] [phone] Matt Wu MD Nurse Triage 07/28/2024 Orders Only GENERIC EXTERNAL DATA DEPARTMENT Provider, Generic External Data 07/22/2024 Refill [facility] [address] [place] [phone] Michelle Han MD Insomnia, unspecified type 06/22/2024 Telephone [facility] [address] [place] [phone] Matt Wu MD Med Refill 06/22/2024 Refill [facility] [address] [place] [phone] Matt Wu MD Insomnia, unspecified type 06/18/2024 Refill [facility] [address] [place] [phone] Matt Wu MD Essential hypertension 06/17/2024 Orders Only GENERIC EXTERNAL DATA DEPARTMENT Provider, Generic External Data 06/16/2024 Refill [facility] [address] [place] [address] [phone] Matt Wu MD Essential hypertension from Last 3 Months Immunizations Name Administration [...] Sign Reading Time Taken Comments Blood Pressure 153/84 08/15/2024 2:16 PM EST Pulse 57 08/15/2024 2:16 PM EST Temperature 36.2 ??C (97.1 ??F) 08/15/2024 2:16 PM ES T Respiratory Rate 16 08/15/2024 2:16 PM EST Oxygen Saturation 99% 08/15/2024 2:16 PM EST Inhaled Oxygen Concentration - - Weight 95.3 kg (210 lb) 08/15/2024 2:16 PM EST Height 160 cm (5' 3 ) 03/22/2024 3:08 PM EDT Body Mass Index 37.2 03/22/2024 3:08 PM EDT Plan of Treatment Upcoming Encounters Date Type Department Care Team (Late st Contact Info) Description 11/30/2024 2:30 PM EDT Office Visit [facility] [address] [place] [address] Name, MD Matt [address] [place] [address] Health Maintenance Due Date Last Done Comments CT Colonography 1970 Colonoscopy 1970 Colorectal Cancer Screening 1970 FIT DNA/Cologuard 1970 FIT 1970 FOBT 1970 Sigmoidoscopy 1970 Eye Exam 1980 Alcohol/Substance Use Screening 1982 Hepatitis A Vaccines (1 of 2 - Risk 2-dose series) 1989 Pneumococcal Vaccine: 50+ Years (1 of 2 - PCV) 1989 Zoster Vaccines (1 of 2) 2020 COVID-19 Vaccine (3 - season) 2024 01/18/2021, 12/21/2020 Influenza Vaccine (#1) 2024 Depression Screening 09/06/2024 09/07/2023, 09/07/19 Diabetes: Urine Protein Screening 09/08/2024 09/09/2023, 07/08/2023, 03/24/2022 SDOH Screening 12/17/2024 12/18/2023 Diabetes: Hemoglobin A1C 02/15/2025 03 025, 03/22/2024, 07/08/2023, Additional history exists Diabetes: Foot Exam 03/22/2025 03/22/2024, 03/22/2024, 03/22/2024, Additional history exists Mammogram 05/27/2025 05/27/2024, 04/16, 05/04/2023, Additional history exists Lipid Panel 08/04/2025 08/04/2024, /0 08/2024, 09/09/2023 Tobacco Screening 08/04/2025 08/04/2024 Cervical Cancer [...] BREATH TEST Routine 09/09/2024 1:40 PM EDT POCT GLYCATED HEMOGLOBIN, TOTAL Routine 08/15/2024 3:04 PM EST Type 2 diabetes mellitus with neurological manifestations, controlled (CMS/HCC) POCT GLUCOSE Routine 08/15/2024 3:03 PM EST Type 2 diabetes mellitus with neurological manifestations, controlled (CMS/HCC) LIPID PANEL, STANDARD Routine 08/04/2024 4:08 PM EST BIN SCREEN, IFA, W/REFL TITER AND PATTERN Routine 08/04/2024 4:08 PM EST Rash SED RATE BY MODIFIED WESTERGREN Routine 08/04/2024 4:08 PM EST Rash C-REACTIVE PROTEIN Routine 08/04/2024 4: 08 PM EST Rash COMPREHENSIVE METABOLIC PANEL Routine 08/04/2024 4:08 PM EST Rash CBC WITH AUTO DIFFERENTIAL Routine 08/04/2024 4:08 PM EST Rash APTT Routine 08/04/2024 4:08 PM EST Rash PROTHROMBIN TIME-INR Routine 08/04/2024 4:08 PM EST Rash HEMATOXYLIN AND EOSIN STAIN Routine 07/28/2024 10:26 AM EST GLUCOSE, WHOLE BLOOD Routine 07/28/2024 9:36 AM EST LIPID PANEL, STANDARD Routine 06/17/2024 2:09 PM EST BI MAMMOGRAM SCREENING TOMOSYNTHESIS BILATERAL Routine 05/27/2024 1:45 PM EST HIV 1/2 ANTIGEN/ANTIBODY, FOURTH GENERATION W/RFL Routine [...] Recently Relevant to Health Maintenance Results * Helicobacter pylori, Urea Breath Test (09/09/2024 1:40 PM EDT) H. pylori Breath Test Positive Negative [facility] Comment:Antimicrobials, prot on pump inhibitors and bismuthpreparations are known to suppress H. pylori. Ingestingthese medications within two weeks prior to performing thebreath test may produce negative test results. A positiveresult is still clinically valid. 09/09/2024 1:40 PM EDT 09/09/2024 2:19 PM EDT [facility] External Data Provider LAB BLOOD ORDERAB LES Final Result [facility] [address] [place] [phone] * (ABNORMAL) POCT HGB A1C (08/15/2024 3:04 PM EST) Pathologist [facility] Hemoglobin A1C 6.7(A) 4.0 - 6.0 % QC Media Lot # [id number] Lot# Expiration Date [id number] Blood 08/15/2024 3:04 PM EST us Matt Wu MD POINT OF CARE TEST ENTER/EDIT OR DERABLES Final Result * POCT Glucose (08/15/2024 3:03 PM EST) Glucose Blood, POC 119 60 - 200 mg/dL QC Media Lot # [id number] Lot# Expiration Date [id number] Blood Capillary blood specimen / Unknown 08/15/2024 3:03 PM EST us Matt Wu MD POINT OF CARE TEST ENTER/EDIT OR DERABLES Final Result * (ABNORMAL) CBC auto differential (08/04/2024 4:08 PM EST) White Blood Count 9.5 4.8 - 10.8 X10*3/uL [facility] Red Blood Count 5.20 4.20 - 5.50 X10*6/uL [facility] Hemoglobin 13.9 12.0 - 16.0 g/dl [facility] Hematocrit 43.9 37.0 - 47.0 % [facility] Mean Corpuscular Volume 84.4 80.0 - 98.0 fL [facility] Mean Corpuscular Hemoglobin 26.7(L) 27.0 - 33.0 pg [facility] Mean Corpuscular HGB Conc 31.7 31.0 - 35.0 g/dl [facility] Red Cell Distribution Width 13.8 11.0 - 16.0 % [facility] Platelet Count 317 160 - 400 X10*3/uL [facility] Mean Platelet Volume 10.4 9.4 - 12.3 fL [facility] Neutrophils Percent Auto 55.9 45 - 73 % [facility] Imm Gran Pct Auto 0.3 0.0 - 0.4 % [facility] Lymphocytes Percent Auto 32.2 20 - 40 % [facility] Monocytes Percent Auto 9.3 2 - 11 % [facility] Eosinophils Percent Auto 1.7 0 - 4 % [facility] Basophils Percent Auto 0.6 0 - 2 % [facility] NRBC Pct Auto 0.0 0.0 - 0.2 /100WBC [facility] Neutrophils Absolute Auto 5.3 2.0 - 8.3 x10*3/uL [facility] Imm Gran Abs Auto 0.03 0.00 - 0.03 X10*3/uL [facility] Lymphocytes Absolute Auto 3.1 1.2 - 4.9 X10*3/uL [facility] Monocytes Absolute Auto 0.9 0.1 - 1.2 X10*3/uL [facility] Eosinophils Absolute Auto 0.2 0.0 - 0.4 X10*3/uL [facility] Basophils Absolute Auto 0.1 0.0 - 0.2 X10*3/uL [facility] NRBC Abs Auto 0.000 0.0 - 0.012 X10*3/uL [facility] Blood Venous blood specimen / Unknown 08/04/2024 4:08 PM EST 08/04/2024 5:50 PM EST Yolande Victor MD LAB BLOOD ORDERABLES Final Result Performing Organization Address [facility] Co de Phone Number [facility] [address] [place] [address] [phone] * Partial Thromboplastin Time, Activated (APTT) (08/04/2024 4:08 PM EST) Partial Thromboplastin Time 30.4 26.0 - 36.8 SEC [facility] Comment:For information rega rding the monitoring of direct thrombininhibitors, please refer to Pharmacy. Blood Venous blood specimen / Unknown 08/04/2024 4:08 PM EST 08/04/2024 5:50 PM EST Yolande Victor MD LAB BLOOD ORDERABLES Final Result Performing Organization Address [facility] de Phone Number [facility] [address] [place] [phone] * Sed Rate by Modified Ngaren (08/04/2024 4:08 PM EST) Erythrocyte Sedimentation Rate 19 0 - 20 MM/HR [facility] Comment:Patients with polycy themia and many hemoglobin abnormalitiesmay have depressed sed rates whereas patients with anemiamay have elevated sed rates. Blood Venous blood specimen / Unknown 08/04/2024 4:08 PM EST 08/04/2024 5:50 PM EST Yolande Victor MD LAB BLOOD ORDERABLES Final Result Performing Organization Address [facility] Co de Phone Number [facility] [address] [place] [phone] * Prothrombin Time-INR (08/04/2024 4:08 PM EST) Prothrombin Time 11.7 10.9 - 12.4 SEC [facility] INTERNATIONAL NORM RATIO 1.0 0.9 - 1.1 [facility] Comment:INTERNATIONAL NORMAL IZED RATIO (INR) REFERENCE RANGES Reference RangeFor patients not on anticoagulant therapy: 0.9 - 1.1INR ranges for oral anticoagulanttherapy:For prevention and treatment of venous thrombosis and pulmonary embolism: 2.0 - 3.0For acute myocardial infarction with aspirin therapy: 2.0 - 3.0For acute myocardial infarction without aspirin therapy: 3.0 - 4.0For patients with mechanical prosthetic heart valves: 2.5 - 3.5 Blood Venous blood specimen / Unknown 08/04/2024 4:08 PM EST 08/04/2024 5:50 PM EST us Yolande Victor MD LAB BLOOD ORDERABLES Final Result Performing Organization Address [facility] Co de Phone Number [facility] [address] [place] [phone] * (ABNORMAL) C-reactive Protein (08/04/2024 4:08 PM EST) [facility] C Reactive Protein 0.93(H) < or = 0.50 mg/dL [facility] Blood Venous blood specimen / Unknown 08/04/2024 4:08 PM EST 08/04/2024 5:50 PM EST Yolande Victor MD LAB BLOOD ORDERABLES Final Result Performing Organization Address [facility] Co de Phone Number [facility] [address] [place] [phone] * BIN Screen,IFA, with Reflex to Titer and Pattern (08/04/2024 4:08 PM EST) Pathologist [facility] Anti Nuclear Antibody Screen NEGATIVE NEGATIVE [facility] Comment:BIN IFA is a first l ine screen for detecting thepresence of up to approximately 150 autoantibodies invarious autoimmune diseases. A negative BIN IFA resultsuggests an BIN-associated autoimmune disease is notpresent at this time, but is not definitive. If thereis high clinical suspicion for Sjogren's syndrome,testing for anti-SS-A/Ro antibody should be considered.Anti-Celeste-1 antibody should be considered for clinicallysuspected inflammatory myopathies.AC-0: NegativeInternational Consensus on BIN Patterns(https://doi.org/10.1515/dfpt-0950-7889)For additional information, please refer tohttp://education.[employer]/faq/MIB017(This link is being provided for informational/educational purposes only.)THIS TEST WAS PERFORMED AT:[address] [place] [phone] PATTERSON MD BIN Titer [facility] BIN Pattern [facility] BIN TITER 2 (REF LAB) [facility] BIN Pattern 2 [facility] BIN TITER 3 [facility] BIN PATTERN 3 [facility] Blood Venous blood specimen / Unknown 08/04/2024 4:08 PM EST 08/04/2024 5:50 PM EST us Yolande Victor MD LAB BLOOD ORDERABLES Final Result [facility] [address] [place] [address] [phone] * (ABNORMAL) Lipid Panel, Standard (08/04/2024 4:08 PM EST) Only the most recent of2 resultswithin the time period is included. Triglycerides 330(H) <150 mg/dL [facility] Comment:Desirable Triglyceri de: less than 150 mg/dLBorderline High Triglyceride 150-199 mg/dLHigh Triglyceride: 200-499 mg/dLVery High Triglyceride: greater than or equal to 5OO mg/dL Cholesterol 216(H) <200 mg/dL [facility] Comment:Desirable Cholestero l: less than 200 mg/dLBorderline High Cholesterol: 200-239 mg/dLHigh Cholesterol: greater than 239 mg/dL LDL Cholesterol Calculated 117(H) <100 mg/dL [facility] Comment:Desirable LDL: less than 100 mg/dLNear Optimal/Above Optimal LDL: 110- 129 mg/dLBorderline High LDL: 130-159 mg/dLHigh LDL: 160-189 mg/dLVery High LDL: greater than or equal to 190 mg/dL HDL Cholesterol 33(L) >40 mg/dL [facility] Comment:Desirable HDL: great er than 40 mg/dL Note: This HDL assay may give artificially low results in patients with liver disease. 08/04/2024 4:08 PM EST 08/04/2024 5:50 PM EST us Generic External Data Provider LAB BLOOD ORDERAB LES Final Result [facility] [address] [place] [phone] * (ABNORMAL) Comprehensive Metabolic Panel (08/04/2024 4:08 PM EST) Sodium 144 135 - 145 mmol/L [facility] Potassium 3.8 3.3 - 5.1 mmol/L [facility] Chloride 107 96 - 108 mmol/L [facility] Carbon Dioxide 30(H) 22 - 29 mmol/L [facility] Anion Gap 11(L) 12 - 20 [facility] Urea Nitrogen (BUN) 15 9 - 16 mg/dL [facility] Creatinine, Serum 0.70 0.5 - 1.4 mg/dL [facility] Estimated Glomerular Filt Rate >60 [facility] Comment:Chronic Kidney Disea se: Estimated GFR < 60 mL/min/1.84w6Cqleik Kidney Disease: Estimated GFR < 15 mL/min/1.73m2 Glucose 89 60 - 115 mg/dL [facility] Calcium 9.4 8.4 - 10.2 mg/dL [facility] Bilirubin, Total 0.6 0.0 - 1.0 mg/dL [facility] Aspartate Amino Transferase 44(H) 5 - 31 U/L [facility] Alanine Aminotransferase 51(H) 0 - 31 U/L [facility] Total Protein 7.9 6.5 - 8.0 g/dL [facility] Albumin Level 4.1 3.5 - 5.0 g/dL [facility] Alkaline Phosphatase 131(H) 39 - 117 U/L [facility] Blood Venous blood specimen / Unknown 08/04/2024 4:08 PM EST 08/04/2024 5:50 PM EST us Yolande Victor MD LAB BLOOD ORDERABLES Final Result Performing Organization Address City/State/[facility] Co de Phone Number [facility] [address] [place] [phone] * Hematoxylin and Eosin Stain (07/28/2024 10:26 AM EST) 07/28/2024 10:2 6 AM EST 07/28/2024 11:14 AM EST Narrative [facility] - 08/02/2024 3:41 PM EST ----- ------- Name: Farrah Yancey ?Age/Sex: 54/F ? : 1970 Unit#: [id number] ?? Attend Dr: Marilyn Reddy MD ?Re07/28/24 ?Status: DEP SDC ? Location: HO.SSS ?Disch: ? ----- ------- SPEC : [id number] ?RECD: 07/28/24 ? STATUS: ??SOUT ? REQ NUM: [id number] ? SARTHAK: 07/28/24-1026 ? SUBM DR: Marilyn Reddy MD ? ENTERED: ??07/28/24-1122 ?SP TYPE: Surgical ? OTHR DR: NameMatt MD ? ORDERED: ??HE Stain/15, Gross Micro [...] Yancey ?Age/Sex: 54/F ? : 1970 Unit#: [id number] ?? Attend Dr: Marilyn Reddy MD ?Re07/28/24 ?Status: DEP SDC ? Location: HO.SSS ?Disch: ? ----- ------- SPEC : [id number] ?RECD: 07/28/24 ? STATUS: ??SOUT ? REQ NUM: [id number] ? SARTHAK: 07/28/24-1026 ? SUBM DR: Marilyn Reddy MD ? ENTERED: ??07/28/24-1122 ?SP TYPE: Surgical ? OTHR DR: NameMatt MD ? ORDERED: ??HE Stain/15, Gross Micro [...] microscopic examination, 2 pieces in cassette E. ??[facility] Special studies ordered and performed: Immunostain for H. pylori on B; AB/PAS stains on A, B and C Copies To: ?? Marilyn Reddy MD ?? [facility] ?? [address] ?? [place] [address] ?? [phone] ?? Name,Matt APPIAH ?? [address] [facility] ?? [place] ?? [phone] ----- ------- Signed (signature on file) Chris Hendrix MD 08/02/24 1541 ? ----- ------- ? END OF REPORT ? us Generic External Data Provider LAB BLOOD ORDERAB LES Final Result [facility] [address] [place] [phone] [phone] * (ABNORMAL) Glucose, Whole Blood (07/28/2024 9:36 AM EST) Glucose, Whole Blood 133(H) 60 - 115 mg/dL [facility] Comment:METER #: [id number] 07/28/2024 9:36 AM EST 07/28/2024 9:40 AM EST us Generic External Data Provider LAB BLOOD ORDERAB LES Final Result [facility] [address] [place] [address] [phone] * BI Mammogram Screening Tomosynthesis Bilateral (05/27/2024 1:45 PM EST) Anatomical Region Laterality Modality Breast Bilateral Mammography 05/27/2024 1:45 PM EST Narrative 06/06/2024 4:29 PM EST ? [facility] ? [address] ?[place] [phone] ? Mammography Report ? Signed ? Patient: Bc,Farrah ?MR#: [id number] ?? 3 ? : 1970 ?Acct:[id number] ? Age/Sex: 54 / F ?ADM Date: 12/13/24 ? Loc: HO.MAMMO ? Attending Dr: Matt Name MD ? Ordering Physician: Name,Matt MD ?Results: 1Negative ? Date of Service: 12/13/24 ?Follow Up: 1 Year From Orig ?? inal Mammogram ? Procedure(s): MM tomosynthesis screening BI ?? Accession Number(s): [id number] ? cc: Name,Matt APPIAH ? EXAMINATION: ?? [...] DD/ 1345 ? TD/TT: 05/27/24 1408 ? Dental Equipment Installer And Servicer: ? Procedure Note Lenore Stokes - 06/06/2024 [facility] [address] [place] [address] [place] [address] Mammography Report Signed Patient: David Yancey#: [id number] 3 : 1970Acct:[id number] Age/Sex: 54 / FADM Date: 12/13/24 Loc: HO.MAMMO Attending Dr: Matt Wu MD Ordering Physician: Matt Wu MDResults: 1Negative Date of Service: 05/27/24Follow Up: 1 Year From [facility] Mammogram Procedure(s): MM tomosynthesis screening BI Accession Number(s): [id number] cc: Matt Wu MD EXAMINATION: MM SCREENING [...] by: Jenni Woods DO 06/06/2024 04:26 PM [facility] Dictated By: Jenni Woods DO Signed By: <Electronically signed by Jenni Woods DO in OV> 06/06/24 1626 DD/ 1345 TD/TT: 05/27/24 1408 Dental Equipment Installer And Servicer: Matt Wu MD [facility] BI PROCEDURES Final Result * HIV-1/2 Antigen and Antibodies, Fourth Generation, with Reflexes (12/21/2023 12:36 PM EDT) HIV AB/AG Nonreactive Nonreactive [facility] Comment:HIV-1 p24 Ag and/or HIV-1/HIV-2 Ab not detected.A test result that is nonreactive does not exclude thepossibility of exposure to or infection with HIV-1 and/orHIV-2. Nonreactive results in this assay for individualswith prior exposure to HIV-1 and/or HIV-2 may be due toantigen and antibody levels that are below the limit ofdetection of this assay.The [employer] HIV Ag/Ab Combo assay result andsupplemental assay results should be interpreted inconjunction with the patient's clinical presentation,history and other laboratory results. If the results areinconsistent with clinical evidence, additional testing issuggested to confirm the result. Blood Venous blood specimen / Unknown 12/21/2023 12:36 PM EDT 12/21/2023 12:36 PM EDT us Matt Wu MD LAB BLOOD ORDERABLES Final Resul t Performing Organization Address [facility] Co de Phone Number [facility] [address] [place] [phone] * Albumin, Random Urine W/Creatinine (09/09/2023 12:24 PM EDT) Creatinine, Urine 120.92 mg/dL [facility] Microalbumin Urine 6.0 mg/L [facility] Microalbum Creatinine Ratio Ur 4.9 <30 ug/mg cr [facility] Comment:Albumin/Creatinine R atio Reference Ranges: Normal: < 30 ug/mg creatinine Microalbuminuria: 30 - 300 ug/mg creatinineClinical Albuminuria: > 300 ug/mg creatinine Urine (Urine, Random) 09/09/2023 12:24 PM EDT 09/09/2023 2:10 PM EDT us Matt Wu MD LAB URINE ORDERABLES Final Resul t Performing Organization Address [facility] Co de Phone Number [facility] [address] [place] [phone] * Hepatitis Panel, General (05/26/2022 4:23 PM EST) Hepatitis A IgM Nonreactive Nonreactive [facility] Comment:IgM antibodies to TORRES V not detected; does not exclude earlyacute or recovered HAV infection. ~Hepatitis B Surface Antibody NONREACTIVE Nonreactive [facility] Comment:Nonreactive: < 8.00 mIU/mL Hepatitis B Core Antibody Nonreactive Nonreactive [facility] Hepatitis C Antibody Nonreactive Nonreactive [facility] Comment:Antibodies to HCV no t detected; does not exclude early acuteHCV infection. Hepatitis B Surface Antigen Negative Negative [facility] 05/26/2022 4:23 PM EST 05/26/2022 4:23 PM EST [facility] External Provider LAB BLO OD ORDERABLES Final Result [facility] [address] [place] [address] [phone] * Pap Smear (05/17/2021) Pap Negative for intraephithelial lesion or malignancy Negative for intraephithelial lesion or malignancy, Other HPV Not Detected Undetected, Indeterminate, Quantitative, Not Detected Historical Provider HEALTH MAINTENANCE Final Result from Last 3 Months or Most Recently Relevant to Health Maintenance Insurance [facility] C3 Care Teams Slasher Hand Relationship Specialty Start Date End Date Name, MD Matt [address] [place] [address] [phone] PCP - General Family Medicine 02/21/22 Estephanie Tan Diet ClerkBatcher Operator 11/24/23
--- OUTSIDE RECORDS SUMMARY | 2024-09-14 17:03 | XMS_ITS | Encounter Summary ---
Author Organization [employer] Address [address] [facility] [address] [place] [address] Care Team Providers Care Bending Roll Hand Name Role Phone Name, Matt APPIAH Primary Care Provider [phone] Reason for Visit * Reason Onset Date Comments Care Coordination 11/24/2023 [id number] ssessment Encounter Details Date Type Department Care Team ([facility] st Contact Info) Description 11/24/2023 Telephone [facility] [address] [place] [address] Estephanie Tan, RN Care Coordination ([id number] assessment) Social History Tobacco Use Types Packs/Day [...] the past 12 months, has t he [employer], oil or water [email or web address] threatened to shut off services in your [...] Member is a 53 year old female, Slovak speaking. Patient is alert andoriented x 3. [...] for her psoriasis. Reports she went [place] [facility] on 11/04/2023 for chest pain, dizziness, work up negative, ?Patient had follow up ED appointment with PCP11/06/2023. Patient stopped taking statin muscle discomfort. This was changed to Zetia 10mg daily. Also placed on Baclophen 10mg 2 times a day. Next PCP appointment is 12/18/2023. Care management program explained and contact information given. Patient verbalizes understanding, and able to repeat back to specifications writer. A follow up call will be [...] Description 11/30/2024 2:30 PM EDT Office Visit [facility] [address] [place] [phone] Name, MD Matt [address] [place] [phone] documented as of this encounter Visit Diagnoses Not on filedocumented in this encounter Additional Health Concerns Assessment Noted Time PHQ-9 Depression Total Score: 0 09/07/19 3:15 PM EDT documented as of this encounter Care Teams Bending Roll Hand Relationship Specialty Start Date End Date Name, MD Matt [address] [place] [phone] PCP - General Family Medicine 02/21/22 Estephanie Tan Bundle TierNeuro Urologist 11/24/23 documented as of this encounter
== END 2024-09-14 14:16 | disposition home or self-care (01) ==
LOC: HO.CT 14:15
PROVIDERS: PCP Internal Medicine Geriatric Medicine; Visit Provider Urology
DX: N20.0 Calculus of kidney (principal)
CPT/HCPCS: 74176

== ENCOUNTER → 2024-09-14 14:18 | Outpatient (BNV) | payer MEDICAID, SELFPAY | PROVIDERS: PCP Internal Medicine Geriatric Medicine; Visit Provider Radiology Diagnostic Radiology | DX: N20.0 Calculus of kidney (principal) | CPT/HCPCS: 74176 ==

== ENCOUNTER 2024-09-16 13:31 | Outpatient (AMB) | payer MEDICAID, SELFPAY ==
[2024-09-16 13:44] VITALS: BP 146/98; BMI 37.2
--- NOTE | 2024-09-16 13:44 | A.OFFVIS_ITS ---
Vital Signs 09/16/24 13:44 Height 5 ft 3 in Weight 210 lb BMI 37.2 BP 146/98 H Blood Pressure Location Rt brachial Position Sitting Intake Visit Reasons: s/p EGD Intake Note: Farrah presents in follow up s/p EGD. CC: Patient reports that she is feeling like if her throat is closing sometimes. She also reports that since after the EGD food and liquids come back up. Weight Tester Required: Yes Allergies acetaminophen [From Vicodin] Allergy (Intermediate, Verified 09/16/24 14:07) Palpitations, Itch amoxicillin [Prevpac] Allergy (Intermediate, Verified 09/16/24 14:07) itchy throat hydrocodone [From Vicodin] Allergy (Intermediate, Verified 09/16/24 14:07) Palpitations, Itch ibuprofen [From Motrin] Allergy (Intermediate, Verified 09/16/24 14:07) UPSET STOMACH, abdominal pain lansoprazole [Prevpac] Allergy (Intermediate, Verified 09/16/24 14:07) itchy throat morphine [MORPHINE] Allergy (Intermediate, Verified 09/16/24 14:07) PALPATATIONS, PANIC ATTACKS, nauseas,panic attack, heart palpitations omeprazole [From PRILOSEC] Allergy (Intermediate, Verified 09/16/24 14:07) ITCHY THROAT pravastatin [PRAVASTATIN] Allergy (Intermediate, Verified 09/16/24 14:07) UNKNOWN rosuvastatin [From CRESTOR] Allergy (Intermediate, Verified 09/16/24 14:07) UNKNOWN terbinafine [TERBINAFINE] Allergy (Intermediate, Verified 09/16/24 14:07) UNKNOWN atorvastatin [From LIPITOR] Allergy (Unknown, Verified 09/16/24 14:07) UNKNOWN clarithromycin [From BIAXIN] Adverse Reaction (Intermediate, Verified 09/16/24 14:07) ABD PAIN, DIARRHEA gabapentin [GABAPENTIN] Adverse Reaction (Intermediate, Verified 09/16/24 14:07) UNKNOWN, nausea, dizziness levofloxacin [LEVOFLOXACIN] Adverse Reaction (Intermediate, Verified 09/16/24 14:07) PALPITATIONS tylenol with codeine Allergy (Unknown, Uncoded 06/17/24 13:10) fast heart rate HPI HPI s/p EGD: Details: Assessment & Plan (1) Oropharyngeal dysphagia: Code(s): R13.12 - Dysphagia, oropharyngeal phase Category: Medical (2) Gastroparesis: Comment: she has been unable to tolerate Reglan due to dizziness so her only real options to consider gastric pacemaker going forward if her symptoms become severe. Aeb Code(s): K31.84 - Gastroparesis Category: Medical (3) GERD (gastroesophageal reflux disease): Code(s): K21.9 - Gastro-esophageal reflux disease without esophagitis Category: Medical Qualifiers: Esophagitis presence: without esophagitis Qualified Code(s): K21.9 - Gastro-esophageal reflux disease without esophagitis (4) H. pylori infection: Comment: H. pylori infection TREATMENT RESISTANT Notes: She has failed all rescue regimens I can think of, we will manage her symptoms as well as we can and consider if new treatment options develop. 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 I think this is causing the intermittent swallowing discomfort/dysphagia. I don't think there is any surgery for anterior bridging, but her neurosurgeon is Dr. rober Myers in [facility]. She may wish to speak to her about this. I am uncertain if an EGD would uncover any reversible results, but she would like one to be sure there are no other c/f. There are no prior problems with anesthesia or sedation. Asthma well controlled and she denies any cardiac problems No ID problems. ROV 6 weeks to eval change from pantoprazole to generic nexium bid. Orders: Orders EGD with Christianson - GI Use Only Today R13.12 - Dysphagia, oropharyngeal phase Medications: New esomeprazole magnesium (Nexium) 40 mg PO BID 60 caps 6RF A04.8 - Other specified bacterial intestinal infections, K21.9 - Gastro-esophageal reflux disease without esophagitis Discontinued pantoprazole (Protonix) Discontinued Reason: Doctor's Order 40 mg PO BID 30 days 60 tabs 6RF E66.01 - Morbid (severe) obesity due to excess calories, K21.9 - Gastro- esophageal reflux disease without esophagitis, Z68.41 - Body mass index [BMI] 40.0-44.9, adult EGD 07/28/24 Findings: Larynx:normal Esophagus: GE junction at 37 cm, diaphragm hiatus at 37 cm, lax LES, bx taken from GEJ, and distal, proximal esophagus Stomach: patchy erythema and edema . Biopsies were obtained. Grade 2 flap valve on retroflexed examination of the cardia. Duodenum: Normal bulb and descending duodenum, bx taken Intervention: Biopsies as noted above, Impression/Findings: gastritis patulous GEJ PLAN: cont with PPI as doing BIOPSY Received: 07/28/24 Diagnosis A. Duodenum, biopsy: Duodenal mucosa within normal limits. B. Stomach, biopsy: Antral-type and oxyntic mucosa with moderate chronic active inflammation; no Helicobacter organisms seen. C. GE junction, biopsy: - Cardiofundic-type mucosa with moderate chronic inactive inflammation; no intestinal metaplasia seen. - Squamous epithelium within normal limits. D. Esophagus, distal, biopsy: Squamous epithelium within normal limits; no inflammation seen. E. Esophagus, proximal, biopsy: Squamous mucosa within normal limits; no inflammation seen TODAYS VISIT [place] [facility] Apparently she was called back by the endoscopist (Dr. Jhaveri son) and H pylori breath test was positive despite the biopsies being negative. This is quite puzzling. She tolerated the procedure well. 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 We has exhausted all fo the abx regimens, so there are no others to try at this time. She felt much better when she took the carafate daily, but it was very consipating. Given the chronic H pylori, I want her on the chronically, so we will get this back in [facility] mix and prescribe bisacodyl for CIC. If needed I will progress to [facility]. she continues on her esomeprazole bid which was rx'ed by Dr. Reddy. ROV 8 weeks. [facility] Medical History (Updated 09/16/24 @ 14:13 by PRISCILA Chan) Encounter for well woman exam with routine gynecological exam Umbilical hernia Scalp mass Irritable bowel syndrome with diarrhea Allergic rhinitis Lumbar degenerative disc disease Breast pain during Carpal tunnel syndrome Arthritis Morbid obesity with BMI of 40.0-44.9, adult Insomnia Diabetes mellitus Benign essential hypertension Polyarthralgia Fibromyalgia Mixed hyperlipidemia Candidiasis of mouth and esophagus Thoracic spondylosis Surgical History Hx of dilation and curettage History of endometrial ablation Hx of colonoscopy History of esophagogastroduodenoscopy (EGD) History of dermoid cyst excision History of excision of lamina of cervical vertebra for decompression of spinal cord H/O hemorrhoidectomy History of appendectomy Family History Father NIDDY (non-insulin dependent diabetes mellitus in young) Cardiovascular disease Obesity Cancer of unknown origin Colon cancer Mother CAD (coronary artery disease) NIDDY (non-insulin dependent diabetes mellitus in young) Brother Schizophrenia Degenerative disc disease H/O lymph node cancer Sister Breast cancer Colon cancer Paternal Grandmother Ovarian cancer, Onset Age: 45 Daughter Fibromyalgia Hypertension Cancer of unknown origin Ovarian cancer Other Mental health problem Social History Household Members: None Housing: Apartment Alcohol intake: never Patient Tobacco Use Status: Never used Tobacco e-Cigarette/Vaping Use: Never Used Second Hand Smoke Exposure: No service: No Current occupational status: disabled 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 Sexual orientation: Straight/Heterosexual Gender identity: Female Cognitive needs: No Hearing needs: Yes Vision needs: Yes Female Reproductive History Menstrual Age of Menarche: 11 Review of Systems Const Denies fatigue, Denies fever(s), Denies night sweats, Denies poor appetite and Denies weight loss ENT Reports Normal hearing present, Denies dysphagia, Denies odynophagia, Denies throat swelling and Denies tongue swelling Card Reports no additional complaints Resp Reports no additional complaints GI Details: Reports abdominal pain, Denies melena, Denies bloating, Denies hematochezia, Re ports constipation, Denies GI cramping, Denies dysphagia, Denies excessive flatus, Denies early satiety, Reports heartburn, Denies diarrhea, Denies nausea, Denies odynophagia, Denies vomiting and Denies hematemesis Skin/Breast Denies pruritus, Denies lesions, Denies rash and Denies jaundice Neuro Reports Normal hearing present and Denies Abnormal speech present Endo Denies fatigue Aller/Immun Denies throat swelling and Denies tongue swelling Physical Exam Vital Signs: Last Vital Signs BP 146/98 H 09/16/24 13:44 BMI result Body Mass Index 37.2 Const General: cooperative, no acute distress, well developed and well groomed Nutritional Appearance: well nourished and obese Orientation/consciousness: oriented to person, oriented to place and oriented to time Limitations: language barrier HEENT Head: Yes normocephalic and Yes atraumatic Eyes General: appearance normal, both eyes and all related structures Pupils: Equal, round and reactive pupils present Neck Neck: Yes normal visual inspection and Yes no lymphadenopathy Thyroid: Thyroid normal Resp Effort & Inspection: normal respiratory effort and able to speak in complete sentences Auscultation: clear to auscultation bilaterally Cardio Rate: regular rate Rhythm: regular rhythm Heart sounds: Normal, physiologic split S2 sound present Peripheral pulses: radial pulses present and posterior tibial pulses present GI Inspection: No distended, Yes Abdominal panniculus present and Yes obesity Palpation (GI): Soft to palpation, Tenderness to palpation present (GI) in the epigastrum, no guarding, not rigid and No hepatosplenomegaly present Percussion: Yes normal to percussion Auscultation: normal bowel sounds Rectal Exam - Female: deferred Skin General skin exam: no rashes or lesions noted, turgor normal, skin not dry, no jaundice, No spider nevi and no striae Rashes: no rashes Nails: normal Neuro General: oriented to person, oriented to place and oriented to time Cranial nerves: Yes Equal, round and reactive pupils present and Yes Normal hearing present Speech: No Abnormal speech present Extrem General: Yes normal to inspection, No clubbing, No cyanosis and No edema Psych Appearance: grossly normal and well kempt Mental Status: mental status grossly normal Speech and movement: Normal speech and movement present Affect: normal affect Attitude: cooperative Thought process: Normal thought process present and not confabulating Thought content: Normal thought content present Insight: Limited insight present (Psych) Judgement: Limited judgement present (Psych) Results Reviewed Results Reviewed: EGD 07/28/24 Findings: Larynx:normal Esophagus: GE junction at 37 cm, diaphragm hiatus at 37 cm, lax LES, bx taken from GEJ, and distal, proximal esophagus Stomach: patchy erythema and edema . Biopsies were obtained. Grade 2 flap valve on retroflexed examination of the cardia. Duodenum: Normal bulb and descending duodenum, bx taken Intervention: Biopsies as noted above, Impression/Findings: gastritis patulous GEJ PLAN: cont with PPI as doing BIOPSY Received: 07/28/24 Diagnosis A. Duodenum, biopsy: Duodenal mucosa within normal limits. B. Stomach, biopsy: Antral-type and oxyntic mucosa with moderate chronic active inflammation; no Helicobacter organisms seen. C. GE junction, biopsy: - Cardiofundic-type mucosa with moderate chronic inactive inflammation; no intestinal metaplasia seen. - Squamous epithelium within normal limits. D. Esophagus, distal, biopsy: Squamous epithelium within normal limits; no inflammation seen. E. Esophagus, proximal, biopsy: Squamous mucosa within normal limits; no inflammation seen Assessment & Plan Assessment & Plan (1) Oropharyngeal dysphagia: Code(s): R13.12 - Dysphagia, oropharyngeal phase Category: Medical (2) Constipation: Code(s): K59.00 - Constipation, unspecified Category: Medical (3) Gastroparesis: Comment: she has been unable to tolerate Reglan due to dizziness so her only real options to consider gastric pacemaker going forward if her symptoms become severe. Aeb Code(s): K31.84 - Gastroparesis Category: Medical (4) GERD (gastroesophageal reflux disease): Code(s): K21.9 - Gastro-esophageal reflux disease without esophagitis Category: Medical Qualifiers: Esophagitis presence: without esophagitis Qualified Code(s): K21.9 - Gastro-esophageal reflux disease without esophagitis (5) H. pylori infection: Comment: H. pylori infection TREATMENT RESISTANT Notes: She has failed all rescue regimens I can think of, we will manage her symptoms as well as we can and consider if new treatment options develop. Code(s): A04.8 - Other specified bacterial intestinal infections Category: Medical Plan [place] #[employer] Apparently she was called back by the endoscopist ( Has son) and H pylori breath test was positive despite the biopsies being negative. This is quite puzzling. She tolerated the procedure well. 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 We has exhausted all fo the abx regimens, so there are no others to try at this time. She felt much better when she took the carafate daily, but it was very consipating. Given the chronic H pylori, I want her on the chronically, so we will get this back in [facility] mix and prescribe bisacodyl for CIC. If needed I will progress to [facility]. she continues on her esomeprazole bid which was rx'ed by Dr. Reddy. ROV 8 weeks. Medications: New bisacodyl (Dulcolax (bisacodyl)) 10 mg (2 x 5 mg) PO BEDTIME 60 tabs 6RF 30 days K59.00 - Constipation, unspecified Refilled sucralfate (Carafate) 2 grams (2 x 1 gram) PO DAILY 60 tabs 6RF R19.7 - Diarrhea, unspecified esomeprazole magnesium 40 mg PO BID 60 caps 6RF A04.8 - Other specified bacterial intestinal infections, K21.9 - Gastro-esophageal reflux disease without esophagitis Discontinued sennosides (Senna Laxative) Discontinued Reason: Doctor's Order 17.2 mg (2 x 8.6 mg) PO BEDTIME 60 tabs 6RF K59.00 - Constipation, unspecified famotidine (Pepcid) Discontinued Reason: Doctor's Order 40 mg PO BEDTIME 30 tabs 6RF Coding Level of Care Code Est Pt Level 3 (15955) Diagnoses Oropharyngeal dysphagia R13.12 Constipation K59.00 Gastroparesis K31.84 Gastroesophageal reflux disease without esophagitis K21.9 Esophagitis presence: without esophagitis H. pylori infection A04.8
--- OUTSIDE RECORDS SUMMARY | 2024-09-16 15:20 | XMS_ITS | Encounter Summary ---
Author Organization [facility] Address [address] [place] [address] Support Name Relationship Address Phone Kimo [facility] Emergency Contact [address] [place] [address] Care Team Providers Care Medicinal Chemist Name Role Phone Makayla Sam DO Primary Care Pro vider Unavailable Anila Craven MD Primary Care Provider Un available Stacy Parry MD Primary Care Provider Unavail able Victoriano Smith MD Primary Care Provider Unava ilable Name, Matt APPIAH Primary Care Provider UnavailReyna Yañez MD Unavailable [phone] Chris Wallace PA-C Unavailable [phone] Latoya Hardy PA-C Unavailable Encounter Details Date Type Department Care Team Description 02/08/2016 Refill Adult [address] [address] Makayla Sam DO Social History Tobacco Use [...] on filedocumented in this encounter Care Teams Medicinal Chemist Relationship Specialty Start Date End Date Makayla Sam DO PCP - General Internal Medicine 10/10/14 09/02/16 Anila Craven MD PCP - General Internal Medicine 09/03/16 9 Stacy Parry MD PCP - General Internal Medicine 02/21/19 01/20/20 Victoriano Smith MD PCP - General Internal Medicine 01/21/20 07/07/22 Matt Wu MD PCP - General Internal Medicine 07/08/22 Reyna Laboy MD [address] [phone] Specialist Neurosurgery 12/22/23 Chris Wallace PA-C [address] [facility] [address] [place] [address] Specialist Neurosurgery 03/10/24 Latoya Hardy PA-C [address] [phone] Specialist Neurosurgery 03/10/24 documented as of this encounter
--- OUTSIDE RECORDS SUMMARY | 2024-09-16 15:20 | XMS_ITS | Encounter Summary ---
Author Organization [facility] Address [address] [place] [address] Support Name Relationship Address Phone Kimo Sprague Emergency Contact [address] [place] [address] Care Team Providers Care Search Developer Name Role Phone Anila Craven MD Primary Care Provider Un available Stacy Parry MD Primary Care Provider Unavail able Victoriano Smith MD Primary Care Provider Unava ilable Name, Matt APPIAH Primary Care Provider UnavailReyna Yañez MD Unavailable [phone] Chris Wallace PA-C Unavailable Latoya Hardy-C Unavailable Reason for Visit * Reason Onset Date Comments Error 12/23/2016 Encounter Details Date Type Department Care Team Description 12/23/2016 Refill Adult [address] [address] Anila Craven MD Error Social History Tobacco [...] on filedocumented in this encounter Care Teams Search Developer Relationship Specialty Start Date End Date Anila Craven MD PCP - General Internal Medicine 09/03/16 9 Stacy Parry MD PCP - General Internal Medicine 02/21/19 01/20/20 Victoriano Smith MD PCP - General Internal Medicine 01/21/20 07/07/22 Matt Wu MD PCP - General Internal Medicine 07/08/22 Reyna Laboy MD [address] [phone] Specialist Neurosurgery 12/22/23 Chris Wallace PA-C [address] [phone] Specialist Neurosurgery 03/10/24 Latoya Hardy PA-C [address] [address] Specialist Neurosurgery 03/10/24 documented as of this encounter
--- OUTSIDE RECORDS SUMMARY | 2024-09-16 15:20 | XMS_ITS | Encounter Summary ---
Author Organization [employer] [facility] Address [address] [place] [address] Support Name Relationship Address Phone Kimo Sprague Emergency Contact [address] [place] [address] Care Team Providers Care Metal Annealer Name Role Phone Anila Craven MD Primary Care Provider Un available Stacy Parry MD Primary Care Provider Unavail able Victoriano Smith MD Primary Care Provider Unava ilable Matt Wu MD Primary Care Provider Unavailabl e Reyna Laboy MD Unavailable [phone] Chris WallaceC Unavailable Latoya Hardy PA-C Unavailable [phone] Encounter Details Date Type Department Care Team Description 07/07/2018 Tapper Balance Wheel Screw Hole Report Medical Records [address] [place] [address] Geetha Noriega, GIA Social History Tobacco Use Types Packs/Day Years [...] filedocumented in this encounter Care Teams Metal Annealer Relationship Specialty Start Date End Date Anila Craven MD PCP - General Internal Medicine 09/03/16 9 Stacy Parry MD PCP - General Internal Medicine 02/21/19 01/20/20 Victoriano Smith MD PCP - General Internal Medicine 01/21/20 07/07/22 Matt Wu MD PCP - General Internal Medicine 07/08/22 Reyna Laboy MD [address] [address] Specialist Neurosurgery 12/22/23 Chris Wallace PA-C [address] [address] Specialist Neurosurgery 03/10/24 Latoya Hardy PA-C [address] [address] Specialist Neurosurgery 03/10/24 documented as of this encounter
--- OUTSIDE RECORDS SUMMARY | 2024-09-16 15:20 | XMS_ITS | Encounter Summary ---
Author Organization [facility] Address [address] [place] [address] Support Name Relationship Address Phone Kimo Sprague Emergency Contact [address] [facility] [address] [place] [address] Care Team Providers Care Compliance Analyst Name Role Phone Anila Craven MD Primary Care Provider Un available Stacy Parry MD Primary Care Provider Unavail able Victoriano Smith MD Primary Care Provider Unava ilable Name, Matt APPIAH Primary Care Provider UnavailReyna Yañez MD Unavailable [phone] Chris Wallace PA-C Unavailable Latoya Hardy PA-C Unavailable Encounter Details Date Type Department Care Team Description 01/07/2019 Vp Compliance Report Medical Records [address] [place] [address] [facility] [address] [place], [place] [id number] Social History Tobacco Use Types Packs/Day Years [...] on filedocumented in this encounter Care Teams Compliance Analyst Relationship Specialty Start Date End Date Anila Craven MD PCP - General Internal Medicine 09/03/16 9 Stacy Parry MD PCP - General Internal Medicine 02/21/19 01/20/20 Victoriano Smith MD PCP - General Internal Medicine 01/21/20 07/07/22 Mtat Wu MD PCP - General Internal Medicine 07/08/22 Reyna Laboy MD [address] [id number] Specialist Neurosurgery 12/22/23 Chris Wallace PA-C [address] [id number] Specialist Neurosurgery 03/10/24 Latoya Hardy PA-C [address] [address] Specialist Neurosurgery 03/10/24 documented as of this encounter
--- OUTSIDE RECORDS SUMMARY | 2024-09-16 15:20 | XMS_ITS | Encounter Summary ---
Author Organization [facility] Address [address] [place] [address] Support Name Relationship Address Phone iKmo Sprague Emergency Contact [address] [place] [address] Care Team Providers Care Mixing Supervisor Name Role Phone Stacy Parry MD Primary Care Provider Unavail able Victoriano Smith MD Primary Care Provider Unava ilable Matt Wu MD Primary Care Provider Unavailabl e Reyna Laboy MD Unavailable [phone] Chris Wallace PA-C Unavailable [phone] Latoya Hardy PA-C Unavailable [phone] Encounter Details Date Type Department Care Team Description 05/24/2019 Old Medical Records Medical Records [address] [place] [address] Abstract, Provider Social History Tobacco Use Types [...] on filedocumented in this encounter Care Teams Mixing Supervisor Relationship Specialty Start Date End Date Stacy Parry MD PCP - General Internal Medicine 02/21/19 01/20/20 Victoriano Smith MD PCP - General Internal Medicine 01/21/20 07/07/22 Matt Wu MD PCP - General Internal Medicine 07/08/22 Reyna Laboy MD [address] [facility] [address] [place] [address] Specialist Neurosurgery 12/22/23 Chris Wallace PA-C [address] [facility] [address] [place] [address] Specialist Neurosurgery 03/10/24 Latoya Hardy PA-C [address] [address] Specialist Neurosurgery 03/10/24 documented as of this encounter
--- OUTSIDE RECORDS SUMMARY | 2024-09-16 15:20 | XMS_ITS | Encounter Summary ---
Author Organization [facility] Address [address] [place] [address] Support Name Relationship Address Phone Kimo Sprague Emergency Contact [address] [facility] [address] [facility] [address] [place] [address] Care Team Providers Care Cigarette Making Examiner Name Role Phone Anila Craven MD Primary Care Provider Un available Stacy Parry MD Primary Care Provider Unavail able Victoriano Smith MD Primary Care Provider Unava ilable Name, Matt APPIAH Primary Care Provider Unavailabl e Reyna Laboy MD Unavailable [phone] Chris Wallace PA-C Unavailable Latoya Hardy PA-C Unavailable Encounter Details Date Type Department Care Team Description 02/20/2017 School Library Media Specialist Report Medical Records [address] [place] [address] Abstract, Provider Social History Tobacco Use Types [...] on filedocumented in this encounter Care Teams Cigarette Making Examiner Relationship Specialty Start Date End Date Anila Craven MD PCP - General Internal Medicine 09/03/16 9 Stacy Parry MD PCP - General Internal Medicine 02/21/19 01/20/20 Victoriano Smith MD PCP - General Internal Medicine 01/21/20 07/07/22 Matt Wu MD PCP - General Internal Medicine 07/08/22 Reyna Laboy MD [address] [address] Specialist Neurosurgery 12/22/23 Chris Wallace PA-C [address] [address] Specialist Neurosurgery 03/10/24 Latoya Hardy PA-C [address] [address] Specialist Neurosurgery 03/10/24 documented as of this encounter
--- OUTSIDE RECORDS SUMMARY | 2024-09-16 15:20 | XMS_ITS | Encounter Summary ---
Author Organization [facility] Address [address] [place] [address] Support Name Relationship Address Phone Kimo Sprague Emergency Contact [address] [place] [address] Care Team Providers Care Software Quality Engineer Name Role Phone Anila Craven MD Primary Care Provider Un available Stacy Parry MD Primary Care Provider Unavail able Victoriano Smith MD Primary Care Provider Unava ilable Matt Wu MD Primary Care Provider Unavailabl e Reyna Laboy MD Unavailable [phone] Chris Wallace PA-C Unavailable Latoya Hardy PA-C Unavailable [phone] Encounter Details Date Type Department Care Team Description 01/24/2019 [facility] Medical Records [address] [place] [address] Abstract, Provider Social History Tobacco Use Types [...] on filedocumented in this encounter Care Teams Software Quality Engineer Relationship Specialty Start Date End Date Anila Craven MD PCP - General Internal Medicine 09/03/16 9 Stacy Parry MD PCP - General Internal Medicine 02/21/19 01/20/20 Victoriano Smith MD PCP - General Internal Medicine 01/21/20 07/07/22 Matt Wu MD PCP - General Internal Medicine 07/08/22 Reyna Laboy MD [address] [address] Specialist Neurosurgery 12/22/23 Chris Wallace PA-C [address] [address] Specialist Neurosurgery 03/10/24 Latoya Hardy PA-C [address] [address] Specialist Neurosurgery 03/10/24 documented as of this encounter
--- OUTSIDE RECORDS SUMMARY | 2024-09-16 15:20 | XMS_ITS | Clinical Summary ---
Author Organization 175 [facility] Address [address] [place] [address] Phone Care Team Providers Care Talent Analyst Name Role Phone Name, Matt APPIAH Primary Care Provider [phone] Allergies Active Allergy Reactions Criticality Noted Date [...] Kari esophagitis 10/08/2018 Overview (03/16/2024): F/u GI [facility] Helicobacter pylori (H. 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 Hemorrhoids 06/04/2017 Overview (03/16/2024): Internal & external Nonalcoholic steatohepatitis (HURD) 06/04/2017 Insomnia 08/23/2015 Carpal tunnel syndrome 12/25/2014 Overview (03/16/2024): Bilateral - negative EMG at [place] 2014 Migraine 12/25/2014 Old NV (myocardial infarction) 12/25/2014 Overview (03/16/2024): 1998/ Dr [...] PM EST Office Visit Orthopedic Surgery - [address] [address] Smooth Sharp, DPM Dermatophytosis of nail (Primary Dx); Tinea pedis of both feet from Last 3 Months Immunizations Name Administration Dates Next Due Hepatitis B (Fwyzzos-T-Fgakb , Recombivax HB-Adult) 19yo and older 03/13/2009,02/16/2008,01/11/2008 [...] 2 diabetes mellitus with neurological manifestations, controlled ([facility]) Tricuspid regurgitation 12/25/2014 DX:Tricu spid regurgitation; COMMENT: Mild tricuspid / mild pulmonic Old NV (myocardial infarction) 12/25/2014 D X:Old NV (myocardial infarction); COMMENT: Ej/ Dr Perez Hyperlipidemia [...] Kari esophagitis (CMS/HCC) 10/08/2018 DX :Kari esophagitis ([facility]); COMMENT: F/u GI C Helicobacter pylori (H. pylo ri) infection 10/08/2018 DX:Helicobacter pylori (H. p ylori) infection; COMMENT: F/u GI [facility] Family History Medical History Relation Name Comments [...] PM EDT Office Visit Orthopedic Surgery - [place] [address] [id number] Smooth Sharp, DPElizabeth [address] [address] Health Maintenance Due Date Last Done Comments [...] Final Result * (ABNORMAL) Hemoglobin A1c (08/27/2019) [facility] Hemoglobin A1C 6.6(A) <=6.5 % Blood Venous blood specimen / Unknown [facility] Provider LAB BLOOD ORDERABLES Behzad l Result * Cervical Cancer Screening: HPV (05/19/2019) [facility] Cervical Cancer Screening: HPV negative, abstracted [facility] Provider HEALTH MAINTENANCE Final Result * Urine Albumin Creatinine Ratio (02/18/2019) [facility] Urine Albumin Creatinine Ratio abstracted [facility] Provider HEALTH MAINTENANCE Final Result * (ABNORMAL) Lipid panel (02/18/2019) [facility] LDL/HDL Ratio 7(A) 0 - 4 Triglycerides 443(A) 0 - 150 mg/dL Cholesterol 185 0 - 200 mg/dL HDL 27(A) >=40 mg/dL LDL Cholesterol 70 0 - 100 mg/dL Blood Venous blood specimen / Unknown Result [facility] Provider LAB BLOOD ORDERABLES Behzad l Result * Colonoscopy (09/24/2015) [facility] Colonoscopy no interpretation , abstracted Anatomical Region Laterality Modality Other [facility] Provider HEALTH MAINTENANCE Final Result from Last 3 Months or Most Recently Relevant to Health Maintenance Insurance MEDICAID - [place] Care Teams Talent Analyst Relationship Specialty Start Date End Date Name, MD Matt [address] [place], [place] PCP - General 07/08/22
--- OUTSIDE RECORDS SUMMARY | 2024-09-16 15:20 | XMS_ITS | Encounter Summary ---
Author Organization [facility] Address [address] [place] [address] Support Name Relationship Address Phone Kimo Sprague Emergency Contact [address] [place] [address] Care Team Providers Care Doll Maker Name Role Phone Makayla Sam DO Primary Care Pro vider Unavailable Anila Craven MD Primary Care Provider Un available Stacy Parry MD Primary Care Provider Unavail able Victoriano Smith MD Primary Care Provider Unava ilable Name, Matt APPIAH Primary Care Provider UnavailReyna Yañez MD Unavailable [phone] Chris Wallace PA-C Unavailable Latoya Hardy PA-C Unavailable [phone] Encounter Details Date Type Department Care Team Description 07/02/2016 [facility] Medical Records [address] [place] [address] Abstract, Provider Social History Tobacco Use Types [...] on filedocumented in this encounter Care Teams Doll Maker Relationship Specialty Start Date End Date Makayla Sam DO PCP - General Internal Medicine 10/10/14 09/02/16 Anila Craven MD PCP - General Internal Medicine 09/03/16 9 Stacy Parry MD PCP - General Internal Medicine 02/21/19 01/20/20 Victoriano Smith MD PCP - General Internal Medicine 01/21/20 07/07/22 Bryce, MD Matt PCP - General Internal Medicine 07/08/22 Reyna Laboy MD [address] [address] Specialist Neurosurgery 12/22/23 Chris Wallace PA-C [address] [address] Specialist Neurosurgery 03/10/24 Latoya Hardy PA-C [address] [phone] Specialist Neurosurgery 03/10/24 documented as of this encounter
--- OUTSIDE RECORDS SUMMARY | 2024-09-16 15:20 | XMS_ITS | Encounter Summary ---
Author Organization [facility] Address [address] [place] [address] Support Name Relationship Address Phone Kimo Sprague Emergency Contact [address] [place] [address] Care Team Providers Care Ore Dryer Name Role Phone Anila Craven MD Primary Care Provider Un available Stacy Parry MD Primary Care Provider Unavail able Victoriano Smith MD Primary Care Provider Unava ilable Name, Matt APPIAH Primary Care Provider UnavailReyna Yañez MD Unavailable [phone] Chris Wallace PA-C Unavailable [phone] Latoya Hardy PA-C Unavailable [phone] Encounter Details Date Type Department Care Team Description 04/16/2017 Orders Only Adult Medicine A - [place] [address] [place] [address] Alicia Crabtree PA-C [address] [place] [address] Social History Tobacco Use Types Packs/Day Years Used Date Smoking Tobacco: Never Alcohol Use Standard Drinks/Week Comments No 0 (1 standard drink = 0.6 oz pur e alcohol) Sex Assigned at Date Recorded Not on file documented as of this encounter Plan of Treatment Not on file documented as of this encounter Visit Diagnoses Not on filedocumented in this encounter Care Teams Ore Dryer Relationship Specialty Start Date End Date Anila Craven MD PCP - General Internal Medicine 09/03/16 9 Stacy Parry MD PCP - General Internal Medicine 02/21/19 01/20/20 Victoriano Smith MD PCP - General Internal Medicine 01/21/20 07/07/22 Matt Wu MD PCP - General Internal Medicine 07/08/22 Reyna Laboy MD [address] [address] Specialist Neurosurgery 12/22/23 Chris Wallace PA-C [address] [address] Specialist Neurosurgery 03/10/24 Latoya Hardy PA-C [address] [address] Specialist Neurosurgery 03/10/24 documented as of this encounter
--- OUTSIDE RECORDS SUMMARY | 2024-09-16 15:20 | XMS_ITS | Encounter Summary ---
Author Organization [facility] Address [address] [place] [address] Support Name Relationship Address Phone Kimo Sprague Emergency Contact [address] [facility] [address] [place] [address] Care Team Providers Care Household Refrigerator Mechanic Name Role Phone Anila Craven MD Primary Care Provider Un available Stacy Parry MD Primary Care Provider Unavail able Victoriano Smith MD Primary Care Provider Unava ilable Bryce, Matt APPIAH Primary Care Provider UnavailReyna Yañez MD Unavailable [phone] Chris Wallace PA-C Unavailable Latoya Hardy-C Unavailable Reason for Visit * Reason Onset Date Comments Jet Dyeing Machine Operator Feedback 08/17/2018 DR LAM Encounter Details Date Type Department Care Team Description 08/17/2018 Telephone Adult [address] [address] Anila Craven MD Jet Dyeing Machine Operator Feedback (DR LAM ) Social History Tobacco [...] return call. * Telephone Encounter - Anila Cravne MD - 08/17/2018 4:59 PM EST Needs [...] / Plan: MEDICAID PCC / Product Type:MEDICAID [id number] Effective 03/15/09: BCBS will not retro referral [...] insurance must be obtained and registered in [facility] or their referral can not be [...] Is this visit:Initial Visit Address of Specialist:[address] [facility] Phone # of Specialist: [phone] Fax #: (if applicable):[phone] Does patient have an appointment scheduled?: YES Date of appointment- (including a retro-request): 08/26/2018 Is this appointment related to: Not MVA, WC or Surgery related documented in this encounter Plan of Treatment Not on file documented as of this encounter Visit Diagnoses Not on filedocumented in this encounter Care Teams Household Refrigerator Mechanic Relationship Specialty Start Date End Date Anila Craven MD PCP - General Internal Medicine 09/03/16 9 Stacy Parry MD PCP - General Internal Medicine 02/21/19 01/20/20 Victoriano Smith MD PCP - General Internal Medicine 01/21/20 07/07/22 Matt Wu MD PCP - General Internal Medicine 07/08/22 Reyna Laboy MD [address] [address] Specialist Neurosurgery 12/22/23 Chris Wallace PA-C [address] [address] Specialist Neurosurgery 03/10/24 Latoya Hardy PA-C [address] [address] Specialist Neurosurgery 03/10/24 documented as of this encounter
--- OUTSIDE RECORDS SUMMARY | 2024-09-16 15:20 | XMS_ITS | Encounter Summary ---
Author Organization [facility] Address [address] [place] [address] Support Name Relationship Address Phone Kimo Sprague Emergency Contact [address] [facility] [address] [place] [address] Care Team Providers Care Mastic Worker Name Role Phone Anila Craven MD Primary Care Provider Un available Stacy Parry MD Primary Care Provider Unavail able Victoriano Smith MD Primary Care Provider Unava ilable Matt Wu MD Primary Care Provider Unavailabl e Reyna Laboy MD Unavailable [phone] Chris WallaceC Unavailable Latoya Hardy PA-C Unavailable [phone] Encounter Details Date Type Department Care Team Description 11/26/2017 Oracle Sql Developer Report Medical Records [address] [place] [address] Geetha Noriega, GIA Social History Tobacco Use [...] on filedocumented in this encounter Care Teams Mastic Worker Relationship Specialty Start Date End Date Anila Craven MD PCP - General Internal Medicine 09/03/16 9 Stacy Parry MD PCP - General Internal Medicine 02/21/19 01/20/20 Victoriano Smith MD PCP - General Internal Medicine 01/21/20 07/07/22 Matt Wu MD PCP - General Internal Medicine 07/08/22 Reyna Laboy MD [address] [address] Specialist Neurosurgery 12/22/23 Chris Wallace PA-C [address] [address] Specialist Neurosurgery 03/10/24 Latoya Haryd PA-C [address] [address] Specialist Neurosurgery 03/10/24 documented as of this encounter
--- OUTSIDE RECORDS SUMMARY | 2024-09-16 15:20 | XMS_ITS | Encounter Summary ---
Author Organization [facility] Address [address] [place] [address] Support Name Relationship Address Phone Kimo Sprague Emergency Contact [address] [facility] [address] [place] [address] Care Team Providers Care Elementary School Teacher'S Aide Name Role Phone Anila Craven MD Primary Care Provider Un available Stacy Parry MD Primary Care Provider Unavail able Victoriano Smith MD Primary Care Provider Unava ilable Name, Matt APPIAH Primary Care Provider Unavailabl e Reyna Laboy MD Unavailable [phone] Chris Wallace PA-C Unavailable Latoya Hardy PA-C Unavailable [phone] Encounter Details Date Type Department Care Team Description 01/28/2017 [facility] Medical Records [address] [place] [address] Abstract, Provider Social History Tobacco Use Types [...] on filedocumented in this encounter Care Teams Elementary School Teacher'S Aide Relationship Specialty Start Date End Date Anila Craven MD PCP - General Internal Medicine 09/03/16 9 Stacy Parry MD PCP - General Internal Medicine 02/21/19 01/20/20 Victoriano Smith MD PCP - General Internal Medicine 01/21/20 07/07/22 Matt Wu MD PCP - General Internal Medicine 07/08/22 Reyna Laboy MD [address] [address] Specialist Neurosurgery 12/22/23 Chris Wallace PA-C [address] [address] Specialist Neurosurgery 03/10/24 Latoya Hardy PA-C [address] [address] Specialist Neurosurgery 03/10/24 documented as of this encounter
--- OUTSIDE RECORDS SUMMARY | 2024-09-16 15:20 | XMS_ITS | Encounter Summary ---
Author Organization [facility] Address [address] [place] [address] Support Name Relationship Address Phone Kimo Sprague Emergency Contact [address] [facility] [address] [place] [address] Care Team Providers Care Plastic Shaper Name Role Phone Makayla Sam DO Primary Care Pro vider Unavailable Anila Craven MD Primary Care Provider Un available Stacy Parry MD Primary Care Provider Unavail able Victoriano Smith MD Primary Care Provider Unava ilable Bryce, Matt APPIAH Primary Care Provider UnavailReyna Yañez MD Unavailable [phone] Chris Wallace PA-C Unavailable Latoya Hardy PA-C Unavailable [phone] Encounter Details Date Type Department Care Team Description 07/09/2016 Telephone Adult [address] [address] Makayla Sam DO Social History Tobacco Use [...] by Kirstin Lanier R.N.. Witnessed by: Devon oy Last RX for zolpidem filled on 06/19 [...] 07/15/2016 1:20 PM * Telephone Encounter - Kirstin Lanier R.N. - 07/15/2016 1:19 PM EST [...] filedocumented in this encounter Care Teams Plastic Shaper Relationship Specialty Start Date End Date Makayla Sam DO PCP - General Internal Medicine 10/10/14 09/02/16 Anila Craven MD PCP - General Internal Medicine 09/03/16 9 Stacy Parry MD PCP - General Internal Medicine 02/21/19 01/20/20 Victoriano Smith MD PCP - General Internal Medicine 01/21/20 07/07/22 Name, MD Matt PCP - General Internal Medicine 07/08/22 Reyna Laboy MD [address] [address] Specialist Neurosurgery 12/22/23 Chris Wallace PA-C [address] [facility] [address] [place] [address] Specialist Neurosurgery 03/10/24 Latoya Hardy PA-C [address] [address] Specialist Neurosurgery 03/10/24 documented as of this encounter
--- OUTSIDE RECORDS SUMMARY | 2024-09-16 15:20 | XMS_ITS | Encounter Summary ---
Author Organization [facility] Address [address] [place] [address] Support Name Relationship Address Phone Kimo Sprague Emergency Contact [address] [facility] [address] [place] [address] Care Team Providers Care Aeronautical Engineering Professor Name Role Phone Anila Craven MD Primary Care Provider Un available Stacy Parry MD Primary Care Provider Unavail able Victoriano Smith MD Primary Care Provider Unava ilable Name, Matt APPIAH Primary Care Provider Unavailabl e Reyna Laboy MD Unavailable [phone] Chris Wallace PA-C Unavailable Latoya Hardy PA-C Unavailable [phone] Encounter Details Date Type Department Care Team Description 10/23/2016 [facility] Medical Records [address] [place] [address] Abstract, Provider Social History Tobacco Use Types [...] on filedocumented in this encounter Care Teams Aeronautical Engineering Professor Relationship Specialty Start Date End Date Anila Craven MD PCP - General Internal Medicine 09/03/16 9 Stacy Parry MD PCP - General Internal Medicine 02/21/19 01/20/20 Victoriano Smith MD PCP - General Internal Medicine 01/21/20 07/07/22 Matt Wu MD PCP - General Internal Medicine 07/08/22 Reyna Laboy MD [address] [address] Specialist Neurosurgery 12/22/23 Chris Wallace PA-C [address] [address] Specialist Neurosurgery 03/10/24 Latoya Hadry PA-C [address] [address] Specialist Neurosurgery 03/10/24 documented as of this encounter
--- OUTSIDE RECORDS SUMMARY | 2024-09-16 15:20 | XMS_ITS | Encounter Summary ---
Author Organization [facility] Address [address] [place] [address] Support Name Relationship Address Phone Kimo Sprague Emergency Contact [address] [place] [address] Care Team Providers Care Gis Developer Name Role Phone Anila Craven MD Primary Care Provider Un available Stacy Parry MD Primary Care Provider Unavail able Victoriano Smith MD Primary Care Provider Unava ilable Name, Matt APPIAH Primary Care Provider Unavailabl e Reyna Laboy MD Unavailable [phone] Chris Wallace PA-C Unavailable Latoya Hardy PA-C Unavailable Encounter Details Date Type Department Care Team Description 11/25/2016 PNO Controlled Substance Contract Medical Records [address] [place] [id number] Abstract, Provider Social History Tobacco Use Types [...] on filedocumented in this encounter Care Teams Gis Developer Relationship Specialty Start Date End Date Anila Craven MD PCP - General Internal Medicine 09/03/16 9 Stacy Parry MD PCP - General Internal Medicine 02/21/19 01/20/20 Victoriano Smith MD PCP - General Internal Medicine 01/21/20 07/07/22 Matt Wu MD PCP - General Internal Medicine 07/08/22 Reyna Laboy MD [address] [address] Specialist Neurosurgery 12/22/23 Chris Wallace PA-C [address] [address] Specialist Neurosurgery 03/10/24 Latoya Hardy PA-C [address] [address] Specialist Neurosurgery 03/10/24 documented as of this encounter
--- OUTSIDE RECORDS SUMMARY | 2024-09-16 15:20 | XMS_ITS | Encounter Summary ---
Author Organization [facility] Address [address] [place] [address] Support Name Relationship Address Phone Kimo Sprague Emergency Contact [address] [place] [address] Care Team Providers Care Survey Rodman Name Role Phone Anila Craven MD Primary Care Provider Un available Stacy Parry MD Primary Care Provider Unavail able Victoriano Smith MD Primary Care Provider Unava ilable Bryce, Matt APPIAH Primary Care Provider UnavailReyna Yañez MD Unavailable [phone] Chris Wallace PA-C Unavailable Latoya Hardy PA-C Unavailable Reason for Visit * Reason Onset Date Comments Tool Machinist Feedback 11/24/2016 Genetics Encounter Details Date Type Department Care Team Description 11/24/2016 Telephone Adult Medicine [address] [address] Anila Craven MD Tool Machinist Feedback (Genetics) Social History Tobacco Use Types Packs/Day Years Used Date Smoking Tobacco: Never Alcohol Use Standard Drinks/Week Comments No 0 (1 standard drink = 0.6 oz pur e alcohol) Sex Assigned at Date Recorded Not on file documented as of this encounter Miscellaneous Notes * Telephone Encounter - Sinan Ospina - 11/24/2016 1:15 PM EDT GeneticDenial Message routed to ordering provider as . On 11/21/2016, an order was placed for Genetic Testing. This patient's insurance plan requires prior authorization for Genetic, DNA and Molecular testing before the test can be performed. Based on the information that was provided to the insurance company, your patient received a DENIALthrough the E Medicare for the genetic testing that was ordered. Please have a member of your clinical staff notify the patient regarding this denial, as further follow up or testing may be needed. Thank you, Rich Referrals Circuit Designer [facility] Referrals Department * Telephone Encounter - Sinan Kingnett - 11/24/2016 7:56 AM EDT GeneticOutOfNetwork Standardized Prior Authorization Request form completed and faxed to [facility] Case Management for reviewwith last office note and lab order. Awaiting response. documented in this encounter Plan of Treatment Not on file documented as of this encounter Visit Diagnoses Not on filedocumented in this encounter Care Teams Survey Rodman Relationship Specialty Start Date End Date Anila Craven MD PCP - General Internal Medicine 09/03/16 9 Stacy Parry MD PCP - General Internal Medicine 02/21/19 01/20/20 Victoriano Smith MD PCP - General Internal Medicine 01/21/20 07/07/22 Matt Wu MD PCP - General Internal Medicine 07/08/22 Reyna Laboy MD [address] [address] Specialist Neurosurgery 12/22/23 Chris Wallace PA-C [address] [facility] [address] [place] [address] Specialist Neurosurgery 03/10/24 Latoya Hardy PA-C [address] [address] Specialist Neurosurgery 03/10/24 documented as of this encounter
--- OUTSIDE RECORDS SUMMARY | 2024-09-16 15:20 | XMS_ITS | Encounter Summary ---
Author Organization [facility] Address [address] [place] [address] Support Name Relationship Address Phone Kimo Sprague Emergency Contact [address] [place] [address] Care Team Providers Care Biodiesel Product Development Manager Name Role Phone Makayla Sam DO Primary Care Pro vider Unavailable Anila Craven MD Primary Care Provider Un available Stacy Parry MD Primary Care Provider Unavail able Victoriano Smith MD Primary Care Provider Unava ilable Name, Matt APPIAH Primary Care Provider UnavailReyna Yañez MD Unavailable [phone] Chris Wallace PA-C Unavailable [phone] Latoya Hardy PA-C Unavailable [phone] Encounter Details Date Type Department Care Team Description 03/01/2015 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 HYDRAULIC 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/[facility] Report Medical Records [address] [place] [address] Abstract, Provider Social History Tobacco Use Types [...] on filedocumented in this encounter Care Teams Biodiesel Product Development Manager Relationship Specialty Start Date End Date Makayla Sam DO PCP - General Internal Medicine 10/10/14 09/02/16 Anila Craven MD PCP - General Internal Medicine 09/03/16 9 Stacy Parry MD PCP - General Internal Medicine 02/21/19 01/20/20 Victoriano Smith MD PCP - General Internal Medicine 01/21/20 07/07/22 Matt Wu MD PCP - General Internal Medicine 07/08/22 Reyna Laboy MD [address] [address] Specialist Neurosurgery 12/22/23 Chris Wallace PA-C [address] [address] Specialist Neurosurgery 03/10/24 Latoya Haryd PA-C [address] [address] Specialist Neurosurgery 03/10/24 documented as of this encounter
--- OUTSIDE RECORDS SUMMARY | 2024-09-16 15:20 | XMS_ITS | Encounter Summary ---
Author Organization [facility] Address [address] [place] [address] Support Name Relationship Address Phone Kimo Sprague Emergency Contact [address] [place] [address] Care Team Providers Care Marketing Administrative Assistant Name Role Phone Anila Craven MD Primary Care Provider Un available Stacy Parry MD Primary Care Provider Unavail able Victoriano Smith MD Primary Care Provider Unava ilable Bryce, Matt APPIAH Primary Care Provider UnavailReyna Yañez MD Unavailable [phone] Chris WallaceC Unavailable Latoya Hardy-Trevor Unavailable Reason for Visit * Reason Onset Date Comments dizziness 04/23/2017 Encounter Details Date Type Department Care Team Description 04/23/2017 Telephone Adult Medicine [address] [address] Anila Craven MD dizziness Social History Tobacco [...] Anila Craven Payor: [employer]ICA[employer] / Plan: [facility] MEDICAID HMO $0 [place] / Product Type: HMO Dlf-exm-Ofyazay documented in this encounter Plan of Treatment Not on file documented as of this encounter Visit Diagnoses Not on filedocumented in this encounter Care Teams Marketing Administrative Assistant Relationship Specialty Start Date End Date Anila Craven MD PCP - General Internal Medicine 09/03/16 9 Stacy Parry MD PCP - General Internal Medicine 02/21/19 01/20/20 Victoriano Smith MD PCP - General Internal Medicine 01/21/20 07/07/22 Matt Wu MD PCP - General Internal Medicine 07/08/22 Reyna Laboy MD [address] [address] Specialist Neurosurgery 12/22/23 Chris Wallace PA-C [address] [address] Specialist Neurosurgery 03/10/24 Latoya Hardy PA-C [address] [address] Specialist Neurosurgery 03/10/24 documented as of this encounter
--- OUTSIDE RECORDS SUMMARY | 2024-09-16 15:20 | XMS_ITS | Encounter Summary ---
Author Organization [facility] Address [address] [place] [address] Support Name Relationship Address Phone Kimo Sprague Emergency Contact [address] [place] [address] Care Team Providers Care Grinder Lap Name Role Phone Makayla Sam DO Primary Care Pro vider Unavailable Anila Craven MD Primary Care Provider Un available Stacy Parry MD Primary Care Provider Unavail able Victoriano Smith MD Primary Care Provider Unava ilable Name, Matt APPIAH Primary Care Provider UnavailReyna Yañez MD Unavailable [phone] Chris Wallace PA-C Unavailable [phone] Latoya Hardy PA-C Unavailable [phone] Encounter Details Date Type Department Care Team Description 09/06/2015 Depositing Machine Operator Report Medical Records [address] [place] [address] Rj Nevarez MD Social History Tobacco Use [...] on filedocumented in this encounter Care Teams Grinder Lap Relationship Specialty Start Date End Date Makayla Sam DO PCP - General Internal Medicine 10/10/14 09/02/16 Anila Craven MD PCP - General Internal Medicine 09/03/16 9 Stacy Parry MD PCP - General Internal Medicine 02/21/19 01/20/20 Victoriano Smith MD PCP - General Internal Medicine 01/21/20 07/07/22 Matt Wu MD PCP - General Internal Medicine 07/08/22 Reyna Laboy MD [address] [address] Specialist Neurosurgery 12/22/23 Chris Wallace PA-C [address] [address] Specialist Neurosurgery 03/10/24 Latoya Hardy PA-C [address] [address] Specialist Neurosurgery 03/10/24 documented as of this encounter
--- OUTSIDE RECORDS SUMMARY | 2024-09-16 15:20 | XMS_ITS | Encounter Summary ---
Author Organization [facility] Address [address] [place] [address] Support Name Relationship Address Phone Kimo Sprague Emergency Contact [address] [place] [address] Care Team Providers Care Dredge Mate Name Role Phone Stacy Parry MD Primary Care Provider Unavail able Victoriano Smith MD Primary Care Provider Unava ilable Name, Matt APPIAH Primary Care Provider UnavailReyna Yañez MD Unavailable [phone] Chris Wallace PA-C Unavailable [phone] Latoya Hardy PA-C Unavailable Reason for Visit * Reason Onset Date Comments refill request 04/25/2019 Encounter Details Date Type Department Care Team Description 04/25/2019 Refill Adult Medicine [address] [address] Stacy Parry MD refill request Social History Tobacco Use Types Packs/Day Years Used Date Smoking Tobacco: Never Smokeless Tobacco: Never Alcohol Use Standard Drinks/Week Comments No 0 (1 standard drink = 0.6 oz pur e alcohol) Sex Assigned at Date Recorded Not on file documented as of this encounter Miscellaneous Notes * Telephone Encounter - Kirstin Lanier R.N. - 04/26/2019 12:20 PM EST [phone] (home) Pt to see dr /pcp 05/05 [...] N/A Patients current insurance carrier is: Payor: [employer] / Plan: [employer] [facility] / Product Type: MEDICAID RISK documented in this encounter Plan of Treatment Not on file documented as of this encounter Visit Diagnoses Diagnosis Hospital discharge follow-up Other follow-up examination documented in this encounter Care Teams Dredge Mate Relationship Specialty Start Date End Date Stacy Parry MD PCP - General Internal Medicine 02/21/19 01/20/20 Victoriano Smith MD PCP - General Internal Medicine 01/21/20 07/07/22 Matt Wu MD PCP - General Internal Medicine 07/08/22 Reyna Laboy MD [address] [address] Specialist Neurosurgery 12/22/23 Chris Wallace PA-C [address] [address] Specialist Neurosurgery 03/10/24 Latoya Hardy PA-C [address] [address] Specialist Neurosurgery 03/10/24 documented as of this encounter
--- OUTSIDE RECORDS SUMMARY | 2024-09-16 15:20 | XMS_ITS | Continuity of Care Document ---
Author Organization [facility] Address [address] [place] [address] [address] [place] [address]- Care Team Providers Care Feeder Catcher Name Role Phone Name Matt APPIAH Primary Care Physician Encounter [facility] ACCT R [id number] Date(s): 09/07/24 - 09/14/[address] [place] [address]- Encounter Diagnosis Hemorrhoids(Discharge Diagnosis) - 09/07/24 Attending Physician: Yolande Fernández NP Referring Physician: Name Matt APPIAH Encounter Type: Office Visit Allergies, Adverse Reactions, Alerts Substance Criticality Severity [...] each, 0 Refills, Maintenance, 10/27/23 4:47:00 PM EDT,[place], [place] - [id number], Partial fill upon patient request if the [...] 11:52:15 AM EDT, Route to Pharmacy Electronically, [place], [place] - Start Date: 11/13/15 Status: Ordered Quantity: 60.0 Unit: capsule Repeat number: 4 Folic Acid Daily, 0 Refills, Maintenance, 08/24/15 1:47:05 PM EST Start Date: 08/24/15 Status: Ordered Repeat number: 1 hydrochlorothiazide 25 mg oral tablet 25 mg, 1, tablet, By Mouth, Daily, Refills 0, Maintenance, 08/24/15 1:46:57 PM EST Start Date: 08/24/15 Status: Ordered Repeat number: 1 hydrocortisone 2.5% topical cream 1 application, Topically, 2 times a day, for 14 days, apply in a thin film internally and externally to anus and rub in gently. Take 2 weeks off in between treatment and repeat for another 2 weeks., # 30 Gm, 1 Refills, Acute 10/05/24 11:23:00 AM EDT, 09/07/24 11:23:00 AM EDT, Cream, [place], [place] - [phone], Partial fill upon patient request if the prescription is for a schedule II opioid drug., 1 application Topically 2 times a day,x14 days,Instr:apply in a thin film internally and externally to anus and rub in gently. Take 2 weeks off in between treatment and repeat for another 2 weeks., 160, cm, 09/07/24 10:29:00 EDT, Height Start Date: 09/07/24 Stop Date: 10/05/24 Status: Ordered Quantity: 30.0 Unit: g Repeat number: 2 lidocaine 5% topical ointment 1 application, Topically, 3 times a day, # 50 Gm, 2 Refills, Maintenance, 03/23/14 3:43:11 PM EDT, Ointment, [place], [place] -, 1 application Topically 3 times [...] 0 Refills, Maintenance, 08/21/21 8:47:00 AM EST, [facility]/pharmacy #[id number], Partial fill upon patient request if the prescription is for a schedule II opioid drug., follow instructions provided by FRED, 160, cm, 07/23/21 15:04:00 EST, Height Start [...] Condition Confirmation Course Effective Dates Status Health at Informant Hemorrhoids Confirmed Active Obese class II Confirmed Active Diagnosis Diagnosis Type Effective Dates Health Status Clini davy Service Informant Hemorrhoids Discharge Diagnosis 09/07/24 Vital Signs Most recent to oldest [Reference Range]: 1 Height 160 cm (09/07/24 10:29 AM) Weight 99.0 kg (09/07/24 10:29 AM) Pulse Rate [55-90 bpm] 66 bpm (09/07/24 10:29 AM) Body Mass Index [18.5-24.99 kg/m2] 38.67 kg/m2 *>HHI* (09/07/24 10:29 AM) Blood Pressure [90-138/55-84 mm Hg] 130/ 77mm Hg (09/07/24 10:29 AM) Temperature [96.8-100.4 DegF] 97.5 DegF (09/07/24 10:29 AM) Blood pressure sites Arm, left (09/07/24 10:29 AM) Temperature Route Temporal (09/07/24 10:29 AM) Social History Social History Type Response Smoking Status Never smoker entered on: 08/24/15 Sex Sex Representation Female (finding) Note * Kirstin Salomon MA: PERFORM Event Display: Patient Education/Instruction Authored Date: [id number] Ambulatory Adult Visit Summary [facility] General Surgery [address] [place] [address] Drive [address] [place] [address] Name: MARVIN HARRINGTON : 1970?? Visit: 09/07/2024 10:05?? Ambulatory Visit Instructions ?? Your Care Team Primary Care Provider Name Matt APPIAH? This Visit Provider Yolande Fernández NP Vitals Signs Temperature: 97.5 DegF Height: 160 cm Pulse Rate: 66 bpm Weight: 99 kg Systolic Blood Pressure: 130 mm Hg Body Mass Index:??38.67 kg/m2??Critical Diastolic Blood Pressure: 77 mm Hg Body surface area: 2.1 Medications The list below reflects the information in our records and provided by you today along with any changes made during this visit. Please continue your medications until treatment is completed or stopped by your provider. If this is different from the information you have or there are other questions,please contact the prescribing provider. What How Much When Instructions Unchanged apremilast (Otezla) 30 Milligram Oral Twice a day Unchanged Aspirin (aspirin 81 mg oral tablet) 1 tab(s) Oral Daily Unchanged Carvedilol (carvedilol 3.125 mg oral tablet) 1 tab(s) Oral Twice a day Unchanged Cholecalciferol (Vitamin D3) Oral Unchanged Diclofenac Topical (Voltaren 1% topical gel) 2 gram Topically 4 times a day Unchanged Docusate (Colace sodium 100 mg oral capsule) 1 capsule Oral Twice a day as needed for for constipation Unchanged Durable Medical Equipment (sitz bath) See instructions Sitz bath for soaking ?? Unchanged Esomeprazole (Nexium 20 mg oral enteric coated capsule) 1 capsule Oral Daily Unchanged Folic Acid Daily Unchanged Hydrochlorothiazide (hydrochlorothiazide 25 mg oral tablet) 1 tab(s) Oral Daily Unchanged Lidocaine Topical (lidocaine 5% topical ointment) 1 clifford Topically 3 times a day Unchanged magnesium sulfate/ potass Cl/ sodium sulf (Sutab oral tablet) See instructions follow instructions provided by GI ?? Unchanged Menthol-Zinc Oxide Topical (Calmoseptine 0.44%-20.6% topical ointment) See instructions Apply to perianal skin ?? Unchanged Miscellaneous Rx (0.2% nifedipine in 4% lidocaine) See instructions apply a pea size amount 3-4 x's a day ?? Unchanged Psyllium (Metamucil 3.4 gm/ 5.2 gm oral powder for reconstitution) See Instructions . ?? Unchanged Zolpidem Daily at Bedtime Unchanged Zolpidem (Ambien 5 mg oral tablet) 1 tab(s) Oral Daily at Bedtime Medications and Immunizations Administered Medications Given During Visit No medications given during this visit.?? Allergies (NKA means No Known Allergies) Other Environmental Allergy??(round patches for ecg- skin red) Vicodin??(increased hr) ibuprofen??(rash) morphine??(red skin/ panic/ incresed hr) terbinafine??(cellulitis) Common Emergency Awareness Tips IS IT A STROKE? Act FAST and Check for these signs: FACE Does the face look uneven? ARM Does one arm drift down? SPEECH Does their speech sound strange? TIME Call at any sign of stroke ?? Heart Attack Signs Chest discomfort: Most heart attacks involve discomfort in the center of the chest and lasts more than a few minutes, or goes away and comes back. It can feel like uncomfortable pressure, squeezing, fullness or pain. Discomfort in upper body: Symptoms can include pain or discomfort in one or both arms, back, neck, jaw or stomach. Shortness of breath: With or without discomfort. Other signs: Breaking out in a cold sweat, nausea, or lightheaded. Remember, MINUTES DO MATTER. If you experience any of these heart attack warning signs, call to get immediate medical attention! ?? Smoking can increase your chances of developing chronic health problems and can cause harmful effects to other family members in your house. If you smoke, you are strongly encouraged to quit. Please call [facility] at [phone] or [phone] ([phone]) or log in to [email or web address] for referrals to smoking cessation programs. ?? The National Suicide Prevention Hotline is available 05/01 if you or someone you know needs to find a reason to keep living. By calling 4-438-946-jtfa (1459) you'll be connected to a skilled, trained counselor at a crisis center in your area. [facility] [employer] Portal You can view and manage your care through the patient portal or by using a health care clifford of your choosing. [employer] is a website that allows you to securely view your medical information including your hospital discharge summary, office visit summaries, medications and follow-up visits. You can also request appointments, renew medications, and request access to your medical information using a health care clifford of your choosing, or just ask a question. You can enroll at [email or web address] or register during your next office visit. [facility], in keeping with [facility] guidance, no longer requires face masks for staff, patientsor visitors in most situations. Similiar to time spent indoors at other locations, there is the chance that you were exposed to repiratory viruses during your time with us (such as flu or COVID-19). If you develop symptoms concerning for a viral respiratory infection, please seek testing (and treatment if indicated) from your medical provider or home test kit. ?? Disclaimer: The information provided is of a general nature and is intended to be used in conjunction with the recommendations and advice of your health care practitioner. Every effort has been made to ensure that the information provided is accurate and complete at the time it is provided to you however, as your needs change, or, as new information becomes available, different or additional instructions may be required. ?? If you have questions, please consult with your primary care provider or pharmacist, as appropriate. This information is not intended to serve as substitution for assessment and evaluation by a qualified health care provider. If you do not have a primary care provider, you may find a [facility] provider by calling [facility] [employer] Link at [phone]. Patient Care team information Care Team Personnel Name: Matt Wu MD Position: [facility] Outreach Member Role: PCP Address: [address] [place] [id number] Telecom: Care Team Related Persons Name: JULIANNA SANDERS Name: OMKAR MORALES Insurance Providers Guarantor name: MARVIN HARRINGTON Health Plan Information #: 1 Payer: [facility] Member Number: [id number] Policy Number: NA Group Number: NA Health Plan Information #: 2 Payer: [facility] Member Number: [id number] Policy Number: NA Group Number: NA
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
--- OUTSIDE RECORDS SUMMARY | 2024-09-16 15:20 | XMS_ITS | Encounter Summary ---
Author Organization [facility] Address [address] [place] [address] Support Name Relationship Address Phone Kimo Sprague Emergency Contact [address] [place] [address] Care Team Providers Care Media Consultant Outside Sales Name Role Phone Anila Craven MD Primary Care Provider Un available Stacy Parry MD Primary Care Provider Unavail able Victoriano Smith MD Primary Care Provider Unava ilable Matt Wu MD Primary Care Provider Unavailabl e Reyna Laboy MD Unavailable [phone] Chris WallaceC Unavailable [phone] Latoya Hardy PA-C Unavailable [phone] Encounter Details Date Type Department Care Team Description 08/24/2018 Nike Athlete Report Medical Records [address] [place] [address] Geetha Noriega, GIA Social History Tobacco Use [...] on filedocumented in this encounter Care Teams Media Consultant Outside Sales Relationship Specialty Start Date End Date Anila Craven MD PCP - General Internal Medicine 09/03/16 9 Stacy Parry MD PCP - General Internal Medicine 02/21/19 01/20/20 Victoriano Smith MD PCP - General Internal Medicine 01/21/20 07/07/22 Matt Wu MD PCP - General Internal Medicine 07/08/22 Reyna Laboy MD [address] [address] Specialist Neurosurgery 12/22/23 Chris Wallace PA-C [address] [address] Specialist Neurosurgery 03/10/24 Latoya Hardy PA-C [address] [address] Specialist Neurosurgery 03/10/24 documented as of this encounter
--- OUTSIDE RECORDS SUMMARY | 2024-09-16 15:21 | XMS_ITS | Encounter Summary ---
Author Organization [employer] Address [address] [facility] 7t [place] [address] Care Team Providers Care Lead Mobile Developer Name Role Phone Name, Matt APPIAH Primary Care Provider [phone] Reason for Visit * Reason Onset Date Comments Durable Medical Equipment 04/06/2024 Encounter Details Date Type Department Care Team (Late st Contact Info) Description 04/06/2024 Telephone [facility] MEDICINE [address] [place], [place] [id number] Name, MD Matt [address] [place] [address] Durable Medical Equipment Social History Tobacco Use [...] Description 11/30/2024 2:30 PM EDT Office Visit [facility] MEDICINE [address] [place] [address] Name, MD Matt [address] [place] [address] documented as of this encounter Visit Diagnoses Not on filedocumented in this encounter Additional Health Concerns Assessment Noted Time PHQ-9 Depression Total Score: 0 09/07/19 24 3:15 PM EDT documented as of this encounter Care Teams Lead Mobile Developer Relationship Specialty Start Date End Date Name, MD Matt [address] [place], [place] [id number] PCP - General Family Medicine 02/21/22 Estephanie Tan Biofuels Technology ManagerMed Spa Manager 11/24/23 documented as of this encounter
--- OUTSIDE RECORDS SUMMARY | 2024-09-16 15:21 | XMS_ITS | Encounter Summary ---
Author Organization [facility] Address [address] [place] [address] Support Name Relationship Address Phone Kimo Sprague Emergency Contact [address] [place] [address] Care Team Providers Care Corporate Training Manager Name Role Phone Stacy Parry MD Primary Care Provider Unavail able Victoriano Smith MD Primary Care Provider Unava ilable Name, Matt APPIAH Primary Care Provider UnavailReyna Yañez MD Unavailable [phone] Chris Wallace PA-C Unavailable [phone] Latoya Hardy PA-C Unavailable [phone] Reason for Visit * Reason Onset Date Comments refill request 11/22/2019 Encounter Details Date Type Department Care Team Description 11/22/2019 Refill Adult Medicine [address] [address] Stacy Parry MD refill request Social History [...] N/A Patients current insurance carrier is: Payor: [employer] FFS / Plan: [facility] / Product Type: MEDICAID RISK documented in this encounter Plan of Treatment Not on file documented as of this encounter Visit Diagnoses Not on filedocumented in this encounter Care Teams Corporate Training Manager Relationship Specialty Start Date End Date Stacy Parry MD PCP - General Internal Medicine 02/21/19 01/20/20 Victoriano Smith MD PCP - General Internal Medicine 01/21/20 07/07/22 Name, MD Matt PCP - General Internal Medicine 07/08/22 Reyna Laboy MD [address] [place] [address] [place] [address] Specialist Neurosurgery 12/22/23 Chris Wallace PA-C [address] [facility] [address] [place] [address] Specialist Neurosurgery 03/10/24 Latoya Hardy PA-C [address] [address] Specialist Neurosurgery 03/10/24 documented as of this encounter
--- OUTSIDE RECORDS SUMMARY | 2024-09-16 15:21 | XMS_ITS | Encounter Summary ---
Author Organization [employer] Address [address] [facility] 7t [place] [address] Care Team Providers Care Wind Farm Operations Manager Name Role Phone Name, Matt APPIAH Primary Care Provider Reason for Visit * Reason Onset Date Comments Care Coordination 11/24/2023 [id number] a ssessment Encounter Details Date Type Department Care Team ([facility] st Contact Info) Description 11/24/2023 Telephone [facility] MEDICINE [address] [place] [address] Estephanie Tan, RN Care Coordination ([id number] assessment) Social History Tobacco Use Types Packs/Day [...] the past 12 months, has t he Trenergi, Trendient, oil or water [employer] threatened to shut off services in your [...] Member is a 53 year old female, Comoran speaking. Patient is alert andoriented x 3. [...] for her psoriasis. Reports she went to [facility] on 11/04/2023 for chest pain, dizziness, work up negative, ?Patient had follow up ED appointment with PCP11/06/2023. Patient stopped taking statin muscle discomfort. This was changed to Zetia 10mg daily. Also placed on Baclophen 10mg 2 times a day. Next PCP appointment is 12/18/2023. Care management program explained and contact information given. Patient verbalizes understanding, and able to repeat back to show card writer. A follow up call will be [...] Description 11/30/2024 2:30 PM EDT Office Visit [facility] MEDICINE [address] [place] [address] Name, MD Matt [address] [place] [address] documented as of this encounter Visit Diagnoses Not on filedocumented in this encounter Additional Health Concerns Assessment Noted Time PHQ-9 Depression Total Score: 0 09/07/19 3:15 PM EDT documented as of this encounter Care Teams Wind Farm Operations Manager Relationship Specialty Start Date End Date Name, MD Matt [address] [place] [address] PCP - General Family Medicine 02/21/22 Estephanie Tan Angle Shear Set Up OperatorHand Trucker 11/24/23 documented as of this encounter
--- OUTSIDE RECORDS SUMMARY | 2024-09-16 15:21 | XMS_ITS | Encounter Summary ---
Author Organization [employer] Address [address] [facility] 7t [place] [address] Care Team Providers Care Preventive Medicine Physician Name Role Phone Name, Matt APPIAH Primary Care Provider [phone] Reason for Visit * Reason Onset Date Comments Med Refill 06/22/2024 Encounter Details Date Type Department Care Team (Late st Contact Info) Description 06/22/2024 Telephone [facility] MEDICINE [address] [place] [address] Name, MD Matt [address] [place] [address] Med Refill Social History Tobacco Use Types [...] sent to: [facility] [place] - [id number] [place] - [address] documented in this encounter Plan of Treatment Upcoming Encounters Date Type Department Care Team (Late st Contact Info) Description 11/30/2024 2:30 PM EDT Office Visit [facility] MEDICINE [address] [place] [address] Name, MD Matt [address] [place] [address] documented as of this encounter Visit Diagnoses Not on filedocumented in this encounter Additional Health Concerns Assessment Noted Time PHQ-9 Depression Total Score: 0 09/07/19 24 3:15 PM EDT documented as of this encounter Care Teams Preventive Medicine Physician Relationship Specialty Start Date End Date NameMatt MD [address] [place] [address] PCP - General Family Medicine 02/21/22 Estephanie Tan Insurance AdjustorLeasing Consultant 11/24/23 documented as of this encounter
--- OUTSIDE RECORDS SUMMARY | 2024-09-16 15:21 | XMS_ITS | Data Portability ---
Author Organization [place] [facility] Address [address] [place] [address] Care Team Providers Care Contact Clerk Name Role Phone YOLANDA VANEGAS Referring Provider [...] for amplification. Recommend she follow up with [facility], and discussed hearing aids would help [...] Organization Details Recorded Time Dizziness and giddiness 993232908 Active 2017 Dizziness and giddiness ; Note: Date Diagnosed : 02/11/2018 2:44 PM (R42) Not Available [facility] 4 03:04:54 Sensorine ural hearing loss of bilateral ears 207269461 Active 2020 Sensorine ural hearing loss, bilateral ; Note: Date Diagnosed : 01/10/2021 2:50 PM (H90.3) Not Available [facility] 4 03:04:55 Headache 09150922 Active 2017 Headache, unspecifi ed; Note: Changed from R51 to R51.9 (07/19/2021 2:06 PM) , Date Diagnosed : 02/11/2018 2:44 PM (R51) Not Available [facility] 4 03:04:55 Migraine 48099105 Active 2020 Other migraine, not intractab le, without status migrainos us; Note: Date Diagnosed : 1 4:10 PM (G43.809) Not Available [facility] 4 03:04:56 Gastroeso phageal reflux disease without esophagit is 699730071 Active 2017 Gastro-es ophageal reflux disease without esophagit is; Note: Date Diagnosed : 03/05/2018 1:19 PM (K21.9) Not Available [facility] 4 03:04:53 Cough 95875742 Active 2017 Cough; Note: Date Diagnosed : 03/05/2018 1:16 PM (R05) Not Available [facility] 4 03:04:55 Referred otalgia of left ear 47482415955 [address] Active 2023 MARISSA CARCAMO PA-C [address] [facility], [facility] [place], [address] , [facility] - [facility] 4 12:01:45 Bilateral tinnitus 37509944873 02 Active 2023 MARISSA CARCAMO PA-C [address] [facility], [facility] [place], [address] , [place] - [facility] 4 12:01:52 Problem Notes None recorded. Procedures Surgical History Date Name Laterality Status Provider Name and Address Organization Details Recorded Time 024 Air & Speech Audio with Tymps (89887, 42218 & 70106) completed SHAHLA SLOAN [address] [facility] [address], [place], [address], [facility] - [facility] 05/27/2024 11:03:21 hemorrhoidectomy completed Mica Horner [place] - [facility] 05/27/2024 10:56:11 Appendectomy completed Mica Horner [place] [facility] 05/27/2024 10:56:15 Imaging Results Imaging Date Name [...] Name and Address Organization Details Recorded Time 81394 gabapenti n medicatio n other Not available Not available 10/27/2023 25691 RxNorm React ion: unkno wn, unspe cifie d;; Not Available [facility] 4 00:48:25 28298 terbinafi ne medicatio n other Not available Not available 10/27/2023 51363 RxNorm React ion: unkno wn, unspe cifie d;; Not Available [facility] 4 00:48:25 27845 Lipitor medicatio n other Not available Not available 10/27/2023 35422 5 RxNorm React ion: unkno wn, unspe cifie d;; Not Available [facility] 4 00:48:25 90006 Crestor medicatio n other Not available Not available 10/27/2023 39631 4 RxNorm React ion: unkno wn, unspe cifie d;; Not Available [facility] 4 00:48:34 73352 sodium medicatio n other Not available Not available 10/27/2023 9853 RxNorm React ion: unkno wn, unspe cifie d;; Not Available [facility] 4 00:48:41 00145 Biaxin medicatio n other Not available Not available 10/27/2023 28688 9 RxNorm React ion: unkno wn, unspe cifie d;; Not Available [facility] 4 00:48:42 00302 Motrin medicatio n other Not available Not available 10/27/2023 84421 8 RxNorm React ion: unkno wn, unspe cifie d;; Not Available [facility] 4 00:48:53 76640 morphine medicatio n other Not available Not available 10/27/2023 7052 RxNorm React ion: unkno wn, unspe cifie d;; Not Available [facility] 4 00:48:59 13231 acetamino phen / hydrocodo ne medicatio n other Not available Not available 10/27/2023 11951 2 RxNorm React ion: unkno wn, unspe cifie d;; Not Available [facility] 4 00:49:06 93769 pravastat in medicatio n other Not available Not available 10/27/2023 49256 RxNorm React ion: unkno wn, unspe cifie d;; Not Available [facility] 4 00:49:07 Medications Name Sig Start Date Stop Date Status Note LastModified by Organization Details LastModified Time nystatin 100,000 unit/mL oral suspensio n 05/27 completed Medicati on ID: [id number] D uration Value: 30 Brand Name: nystatin [...] Alcohol Pads 05/27 completed Medicati on ID: [id number] D uration Value: 30 Brand Name: Alcohol [...] mg tablet 05/27 completed Medicati on ID: 631175 D uration Value: 30 Brand Name: carvedil ol Send Method: E-Prescr ibed Sub s Allowed: subs OK Speci al Instruct ion: TAKE ONE TABLET BY MOUTH 2 (two) times a day WITH A MEAL [facility] enElizabet me: carvedil ol Not Available [...] mg tablet 05/27 completed Medicati on ID: 754281 D uration Value: 28 Brand Name: zolpidem [...] ating tablet 05/27 completed Medicati on ID: 165282 D uration Value: 30 Brand Name: bree [...] elayed release 05/27 completed Medicati on ID: [id number] D uration Value: 30 Brand Name: donald [...] unit) capsule 2017 active Medicati on ID: [id number] D uration Value: 30 Brand Name: D3 Send Method: E-Prescr ibed Sub s Allowed: subs OK Speci al Instruct ion: TAKE ONE CAPSULE BY MOUTH DAILY Me dication GenericN louie: D3-2000 Not Available Not Available Not Available Easy Comfort Lancets 30 gauge 05/27 completed Medicati on ID: [id number] D uration Value: 30 Brand Name: Easy [...] SNOMED-CT Code Diagnosis ICD10 Code Diagnosis Note [id number] MIGUEL NATH MD [facility] of [address] [address] 05/27/2024 10:49:53 05/27/2024 11:53:18 Sensorineural hearing loss of bilateral ears 922612646 H90.3 Right Ear:Normal hearing through 2K Hz sloping to a profound SNHL with good speech discrimina tion.Type A tympanogra m.Left Ear:Normal hearing through 2K Hz sloping to a profound SNHL with good speech discrimina tion.Type A tympanogra m. Referred o talgia of left ear [id number] 357044 H92.02 Bilateral tinnitus 88484 90815 102 H93.13 Health Concerns Section Related Observation LastModified by Organization Detai ls LastModified Time None Recorded Concern Status LastModified by Organization Details LastModified Time None Recorded Advance Directives Directive None Recorded Payers Encounter Date Sequence Insurance Name Policy Number Policy Juárez Covered Member ID Juárez Member ID Guarantor Name 05/27/2024 1 [place] [id number] Farrah Yancey [id number] Farrah Yancey Notes Date Note Type Note [...] caused pruritus. The amplification was dispensed by financial institution president in [place]. Denies otorrhea or dizziness. Denies prior history of ear infections or ear surgeries. No history of loud noise exposure. No Qtip use. History of migraine. MIGUEL NATH MD [address] [place] [address], [address], [place] - [facility] 05/28/2024 13:57:56 OBGyn Episode No OBEpisode recorded.
--- OUTSIDE RECORDS SUMMARY | 2024-09-16 15:21 | XMS_ITS | Encounter Summary ---
Author Organization [facility] Address [address] [place] [address] Support Name Relationship Address Phone Kimo Sprague Emergency Contact [address] [place] [address] Care Team Providers Care Farm Machinery Assembler Name Role Phone Anila Craven MD Primary Care Provider Un available Stacy Parry MD Primary Care Provider Unavail able Victoriano Smith MD Primary Care Provider Unava ilable Bryce, Matt APPIAH Primary Care Provider UnavailReyna Yañez MD Unavailable [phone] Chris Wallace PA-C Unavailable Latoya Hardy PA-C Unavailable [phone] Reason for Visit * Reason Onset Date Comments Prior Authorization 10/14/2017 [facility] Encounter Details Date Type Department Care Team Description 10/14/2017 Telephone Adult Medicine [address] [address] Alicia Crabtree PA-C [address] [place] [phone] Prior Authorization ([facility]) Social History Tobacco [...] Thank you [place] p [phone] prior authorization pool Jacqueline Aguiar C.M.A. [facility] Prior Authorizations Ext: [id number] * Telephone Encounter - Alicia Crabtree PA-C - 10/19/2017 4:40 PM EDT noted * Telephone Encounter - Alessia Jorge M.A. - 10/19/2017 1:17 PM EDT Esomeprazole 20mg cap, I bid Dx refractory gerd, pt states symptoms come back with 1 a day Tried omeprazole in past Form faxed to [facility] * Telephone Encounter - Smooth Kauffman - [...] Please advise Please reply back to p [phone] Prior Auth pool Alessia Jorge M.A. [facility] Prior Authorizations Ext [phone] * Telephone Encounter - Alessia Jorge M.A. - 10/15/2017 4:21 PM EDT Prior auth form is being faxed to me from [facility] * Telephone Encounter - Dulce Ryan M.A. - 10/15/2017 2:19 PM EDT [phone] (home) Verify with pharmacy insurance changed will [...] Please advise. Jing FARLEY dept Ext [phone] * Telephone Encounter - Ann Lizama - 10/14/2017 8:00 AM EDT Pre Authorization for Medication-do not complete and send this encounter unless you have the fax from the pharmacy. Is this a Cover My Meds request: [address] of Medication esomeprazole (NEXIUM) 20 MG capsule Dose of Medication 20 MG capsule How does patient take this med? Take 1 Cap by mouth 2 times daily. What Pharmacy did the fax come from: [facility] fax #: [phone] Third Libertarian Information from fax: What Prescription Plan does the patient have? BIN/PCN if applicable: [id number] Cardholder ID:[id number] Person Code: BCAID Relationship Code: 01 Help desk phone: [phone] documented in this encounter Plan of Treatment Not on file documented as of this encounter Visit Diagnoses Not on filedocumented in this encounter Care Teams Farm Machinery Assembler Relationship Specialty Start Date End Date Anila Craven MD PCP - General Internal Medicine 09/03/16 9 Stacy Parry MD PCP - General Internal Medicine 02/21/19 01/20/20 Victoriano Smith MD PCP - General Internal Medicine 01/21/20 07/07/22 NameMatt MD PCP - General Internal Medicine 07/08/22 Reyna Laboy MD [address] [address] Specialist Neurosurgery 12/22/23 Chris Wallace PA-C [address] [address] Specialist Neurosurgery 03/10/24 Latoya Hardy PA-C 175 [facility] [address] [place] [address] Specialist Neurosurgery 03/10/24 documented as of this encounter
--- OUTSIDE RECORDS SUMMARY | 2024-09-16 15:21 | XMS_ITS | Encounter Summary ---
Author Organization [facility] Address [address] [place] [address] Support Name Relationship Address Phone Kimo Sprague Emergency Contact [address] [facility] [address] [address] [address] [place] [address] Care Team Providers Care Promotional Representative Name Role Phone Anila Craven MD Primary Care Provider Un available Stacy Parry MD Primary Care Provider Unavail able Victoriano Smith MD Primary Care Provider Unava ilable Matt Wu MD Primary Care Provider Unavailabl e Reyna Laboy MD Unavailable [phone] Chris WallaceC Unavailable Latoya Hardy PA-C Unavailable [phone] Encounter Details Date Type Department Care Team Description 08/28/2017 Telephone [facility] - [address] [address] Anila Craven MD Social History Tobacco Use [...] on filedocumented in this encounter Care Teams Promotional Representative Relationship Specialty Start Date End Date Anila Craven MD PCP - General Internal Medicine 09/03/16 9 Stacy Parry MD PCP - General Internal Medicine 02/21/19 01/20/20 Victoriano Smith MD PCP - General Internal Medicine 01/21/20 07/07/22 Matt Wu MD PCP - General Internal Medicine 07/08/22 Reyna Laboy MD [address] [address] Specialist Neurosurgery 12/22/23 Chris Wallace PA-C [address] [address] Specialist Neurosurgery 03/10/24 Latoya Hardy PA-C [address] [address] Specialist Neurosurgery 03/10/24 documented as of this encounter
--- OUTSIDE RECORDS SUMMARY | 2024-09-16 15:21 | XMS_ITS | Encounter Summary ---
Author Organization [facility] Address [address] [place] [address] Support Name Relationship Address Phone Kimo Sprague Emergency Contact [address] [place] [address] Care Team Providers Care Tetryl Screen Operator Name Role Phone Name, Matt APPIAH Primary Care Provider Unavailbroderick e Reyna Laboy MD Unavailable [phone] Chris Wallace PA-C Unavailable Latoya Hardy PA-C Unavailable [phone] Encounter Details Date Type Department Care Team Description 12/24/2023 [facility] Records [facility] Neurosurgery [place] [address] [id number] Reyna Laboy MD [address] [address] Social History Tobacco Use Types Packs/Day Years [...] on filedocumented in this encounter Care Teams Tetryl Screen Operator Relationship Specialty Start Date End Date Name, MD Matt PCP - General Internal Medicine 07/08/22 Reyna Laboy MD [address] [phone] Specialist Neurosurgery 12/22/23 Chris Wallace PA-C [address] [address] Specialist Neurosurgery 03/10/24 Latoya Hardy PA-C [address] [place] [address] [place] [address] [id number] Specialist Neurosurgery 03/10/24 documented as of this encounter
--- OUTSIDE RECORDS SUMMARY | 2024-09-16 15:21 | XMS_ITS | Encounter Summary ---
Author Organization [facility] Address [address] [place] [address] Support Name Relationship Address Phone Kimo Sprague Emergency Contact [address] [place] [address] Care Team Providers Care Camera Storage Clerk Name Role Phone Makayla Sam DO Primary Care Pro vider Unavailable Anila Craven MD Primary Care Provider Un available Stacy Parry MD Primary Care Provider Unavail able Victoriano Smith MD Primary Care Provider Unava ilable Name, Matt APPIAH Primary Care Provider UnavailReyna Yañez MD Unavailable [phone] Chris Wallace PA-C Unavailable Latoya Hardy PA-C Unavailable [phone] Encounter Details Date Type Department Care Team Description 04/30/2016 Electrician Second Report Medical Records [address] [place] [address] Abstract, Provider Social History Tobacco Use Types [...] on filedocumented in this encounter Care Teams Camera Storage Clerk Relationship Specialty Start Date End Date Makayla Sam DO PCP - General Internal Medicine 10/10/14 09/02/16 Anila Craven MD PCP - General Internal Medicine 09/03/16 9 Stacy Parry MD PCP - General Internal Medicine 02/21/19 01/20/20 Victoriano Smith MD PCP - General Internal Medicine 01/21/20 07/07/22 Matt Wu MD PCP - General Internal Medicine 07/08/22 Reyna Laboy MD [address] [phone] Specialist Neurosurgery 12/22/23 Chris Wallace PA-C [address] [phone] Specialist Neurosurgery 03/10/24 Latoya Hardy PA-C [address] [phone] Specialist Neurosurgery 03/10/24 documented as of this encounter
--- OUTSIDE RECORDS SUMMARY | 2024-09-16 15:21 | XMS_ITS | Encounter Summary ---
Author Organization [facility] Address [address] [place] [address] Support Name Relationship Address Phone Kimo Sprague Emergency Contact [address] [place] [address] Care Team Providers Care Telegraph Dispatcher Name Role Phone Makayla Sam DO Primary Care Pro vider Unavailable Anila Craven MD Primary Care Provider Un available Stacy Parry MD Primary Care Provider Unavail able Victoriano Smith MD Primary Care Provider Unava ilable Name, Matt APPIAH Primary Care Provider UnavailReyna Yañez MD Unavailable [phone] Chris Wallace PA-C Unavailable Latoya Hardy PA-C Unavailable [phone] Encounter Details Date Type Department Care Team Description 04/17/2016 Facility Administrator Report Medical Records [address] [place] [address] Joana Chu MD Social History Tobacco Use [...] on filedocumented in this encounter Care Teams Telegraph Dispatcher Relationship Specialty Start Date End Date Makayla Sam DO PCP - General Internal Medicine 10/10/14 09/02/16 Anila Craven MD PCP - General Internal Medicine 09/03/16 9 Stacy Parry MD PCP - General Internal Medicine 02/21/19 01/20/20 Victoriano Smith MD PCP - General Internal Medicine 01/21/20 07/07/22 Matt Wu MD PCP - General Internal Medicine 07/08/22 Reyna Laboy MD [address] [address] Specialist Neurosurgery 12/22/23 Chris Wallace PA-C 175 [facility] [address] [place] [address] Specialist Neurosurgery 03/10/24 Latoya Hardy PA-C [address] [address] Specialist Neurosurgery 03/10/24 documented as of this encounter
--- OUTSIDE RECORDS SUMMARY | 2024-09-16 15:21 | XMS_ITS | Encounter Summary ---
Author Organization [facility] Address [address] [place] [address] Support Name Relationship Address Phone Kimo Sprague Emergency Contact [address] [facility] [address] [facility] [address] [address] [place] [address] Care Team Providers Care Agile Developer Name Role Phone Anila Craven MD Primary Care Provider Un available Stacy Parry MD Primary Care Provider Unavail able Victoriano Smith MD Primary Care Provider Unava ilable Matt Wu MD Primary Care Provider Unavailabl e Reyna Laboy MD Unavailable [phone] Chris WallaceC Unavailable [phone] Latoya Hardy PA-C Unavailable [phone] Encounter Details Date Type Department Care Team Description 05/05/2017 Legal Billing Coordinator Report Medical Records [address] [place] [address] Robert Park MD Social History Tobacco Use Types Packs/Day Years Used Date Smoking Tobacco: Never Alcohol Use Standard Drinks/Week Comments No 0 (1 standard drink = 0.6 oz pur e alcohol) Sex Assigned at Date Recorded Not on file documented as of this encounter Plan of Treatment Not on file documented as of this encounter Visit Diagnoses Not on filedocumented in this encounter Care Teams Agile Developer Relationship Specialty Start Date End Date Anila Craven MD PCP - General Internal Medicine 09/03/16 9 Stacy Parry MD PCP - General Internal Medicine 02/21/19 01/20/20 Victoriano Smith MD PCP - General Internal Medicine 01/21/20 07/07/22 Matt Wu MD PCP - General Internal Medicine 07/08/22 Reyna Laboy MD [address] [address] Specialist Neurosurgery 12/22/23 Chris Wallace PA-C [address] [address] Specialist Neurosurgery 03/10/24 Latoya Hardy PA-C [address] [address] Specialist Neurosurgery 03/10/24 documented as of this encounter
--- OUTSIDE RECORDS SUMMARY | 2024-09-16 15:21 | XMS_ITS | Encounter Summary ---
Author Organization [email or web address] Address [address] [facility] 7t [place] [address] Care Team Providers Care Cargo Broker Name Role Phone Name, Matt APPIAH Primary Care Provider [phone] Encounter Details Date Type Department Care Team ([facility] st Contact Info) Description 08/05/2024 Orders Only [facility] MEDICINE [address] [place], [place] [phone] Yolande Knight MD 230 [place], [place] [phone] Social History Tobacco Use Types Packs/Day Years [...] Description 11/30/2024 2:30 PM EDT Office Visit [facility] MEDICINE [address] [place] [address] Name, MD Matt [address] [place] [address] documented as of this encounter Visit Diagnoses Not on filedocumented in this encounter Additional Health Concerns Assessment Noted Time PHQ-9 Depression Total Score: 0 09/07/19 24 3:15 PM EDT documented as of this encounter Care Teams Cargo Broker Relationship Specialty Start Date End Date NameMatt MD [address] [place] [address] PCP - General Family Medicine 02/21/22 Estephanie Tan Construction CarpenterCompliance Engineer Products 11/24/23 documented as of this encounter
--- OUTSIDE RECORDS SUMMARY | 2024-09-16 15:21 | XMS_ITS | Encounter Summary ---
Author Organization [facility] Address [address] [facility] 7t [place] [address] Care Team Providers Care Zoning Engineer Name Role Phone Name, Matt APPIAH Primary Care Provider [phone] Reason for Visit * Reason Onset Date Comments Med Refill 09/24/2023 Encounter Details Date Type Department Care Team (Late st Contact Info) Description 09/24/2023 Telephone [facility] MEDICINE [address] [place] [address] Name, MD Matt [address] [place] [address] Med Refill Social History Tobacco Use Types [...] 10 MG tablet To be sent to: [facility] - [place], [place] - [phone] - [place], [place] - [address] documented in this encounter Plan of Treatment Upcoming Encounters Date Type Department Care Team (Late st Contact Info) Description 11/30/2024 2:30 PM EDT Office Visit [facility] MEDICINE [address] [place] [address] Name, MD Matt [address] [place] [address] documented as of this encounter Visit Diagnoses Not on filedocumented in this encounter Additional Health Concerns Assessment Noted Time PHQ-9 Depression Total Score: 0 09/07/19 24 3:15 PM EDT documented as of this encounter Care Teams Zoning Engineer Relationship Specialty Start Date End Date Name, MD Matt [address] [place] [address] PCP - General Family Medicine 02/21/22 Estephanie Tan Pizza ChefCustomer Experience Intern 11/24/23 documented as of this encounter
--- OUTSIDE RECORDS SUMMARY | 2024-09-16 15:21 | XMS_ITS | Encounter Summary ---
Author Organization [facility] Address [address] [place] [address] Support Name Relationship Address Phone Kimo Sprague Emergency Contact [address] [facility] [address] [place] [address] Care Team Providers Care Small Brake Form Operator Name Role Phone Makayla Sam DO Primary Care Pro vider Unavailable Anila Craven MD Primary Care Provider Un available Stacy Parry MD Primary Care Provider Unavail able Victoriano Smith MD Primary Care Provider Unava ilable Name, Matt APPIAH Primary Care Provider UnavailReyna Yañez MD Unavailable [phone] Chris Wallace PA-C Unavailable [phone] Latoya Hardy PA-C Unavailable [phone] Encounter Details Date Type Department Care Team Description 03/27/2016 Corn Husk Baler Report Medical Records [address] [place] [address] Rj Nevarez MD Social History Tobacco Use [...] on filedocumented in this encounter Care Teams Small Brake Form Operator Relationship Specialty Start Date End Date Makayla Sam DO PCP - General Internal Medicine 10/10/14 09/02/16 Anila Craven MD PCP - General Internal Medicine 09/03/16 9 Stacy Prary MD PCP - General Internal Medicine 02/21/19 01/20/20 Victoriano Smith MD PCP - General Internal Medicine 01/21/20 07/07/22 Matt Wu MD PCP - General Internal Medicine 07/08/22 Reyna Laboy MD [address] [address] Specialist Neurosurgery 12/22/23 Chris Wallace PA-C [address] [address] Specialist Neurosurgery 03/10/24 Latoya Hardy PA-C [address] [address] Specialist Neurosurgery 03/10/24 documented as of this encounter
--- OUTSIDE RECORDS SUMMARY | 2024-09-16 15:21 | XMS_ITS | Encounter Summary ---
Author Organization [facility] Address [address] [place] [address] Support Name Relationship Address Phone Kimo Sprague Emergency Contact [address] [facility] [address] [place] [address] Care Team Providers Care Design Specialist Name Role Phone Makayla Sam DO Primary Care Pro vider Unavailable Anila Craven MD Primary Care Provider Un available Stacy Parry MD Primary Care Provider Unavail able Victoriano Smith MD Primary Care Provider Unava ilable Name, Matt APPIAH Primary Care Provider UnavailReyna Yañez MD Unavailable [phone] Chris Wallace PA-C Unavailable Latoya Hardy PA-C Unavailable Encounter Details Date Type Department Care Team Description 06/17/2016 Provider Network Analyst Report Medical Records [address] [place] [address] Estephanie Man FNP Social History Tobacco Use [...] on filedocumented in this encounter Care Teams Design Specialist Relationship Specialty Start Date End Date Makayla Sam DO PCP - General Internal Medicine 10/10/14 09/02/16 Anila Craven MD PCP - General Internal Medicine 09/03/16 9 Stacy Parry MD PCP - General Internal Medicine 02/21/19 01/20/20 Victoriano Smith MD PCP - General Internal Medicine 01/21/20 07/07/22 Matt Wu MD PCP - General Internal Medicine 07/08/22 Reyna Laboy MD [address] [address] Specialist Neurosurgery 12/22/23 Chris Wallace PA-C [address] [address] Specialist Neurosurgery 03/10/24 Latoya Hardy PA-C [address] [address] Specialist Neurosurgery 03/10/24 documented as of this encounter
--- OUTSIDE RECORDS SUMMARY | 2024-09-16 15:21 | XMS_ITS | Encounter Summary ---
Author Organization [facility] Address [address] [place] [address] Support Name Relationship Address Phone Kimo Sprague Emergency Contact [address] [facility] [address] [place] [address] Care Team Providers Care Director Of Web Marketing Name Role Phone Makayla Sam DO Primary Care Pro vider Unavailable Anila Craven MD Primary Care Provider Un available Stacy Parry MD Primary Care Provider Unavail able Victoriano Smith MD Primary Care Provider Unava ilable Name, Matt APPIAH Primary Care Provider UnavailReyna Yañez MD Unavailable [phone] Chris Wallace PA-C Unavailable [phone] Latoya Hardy PA-C Unavailable [phone] Encounter Details Date Type Department Care Team Description 05/02/2016 [facility] Medical Records [address] [place] [address] Abstract, Provider Social History Tobacco Use Types [...] on filedocumented in this encounter Care Teams Director Of Web Marketing Relationship Specialty Start Date End Date Makayla Sam DO PCP - General Internal Medicine 10/10/14 09/02/16 Anila Craven MD PCP - General Internal Medicine 09/03/16 9 Stacy Parry MD PCP - General Internal Medicine 02/21/19 01/20/20 Victoriano Smith MD PCP - General Internal Medicine 01/21/20 07/07/22 Bryce, MD Matt PCP - General Internal Medicine 07/08/22 Reyna Laboy MD [address] [phone] Specialist Neurosurgery 12/22/23 Chris Wallace PA-C [address] [address] Specialist Neurosurgery 03/10/24 Latoya Hardy PA-C [address] [address] Specialist Neurosurgery 03/10/24 documented as of this encounter
--- OUTSIDE RECORDS SUMMARY | 2024-09-16 15:21 | XMS_ITS | Encounter Summary ---
Author Organization [facility] Address [address] [place] [address] Support Name Relationship Address Phone Kimo Sprague Emergency Contact [address] [facility] [address] [place] [address] Care Team Providers Care Dental Laboratory Worker Name Role Phone Makayla Sam DO Primary Care Pro vider Unavailable Anila Craven MD Primary Care Provider Un available Stacy Parry MD Primary Care Provider Unavail able Victoriano Smith MD Primary Care Provider Unava ilable Name, Matt APPIAH Primary Care Provider UnavailReyna Yañez MD Unavailable [phone] Chris Wallace PA-C Unavailable Latoya Hardy PA-C Unavailable Encounter Details Date Type Department Care Team Description 04/22/2016 Orders Only Adult Medicine [address] [address] Makayla Sam DO Social History Tobacco Use [...] on filedocumented in this encounter Care Teams Dental Laboratory Worker Relationship Specialty Start Date End Date Makayla Sam DO PCP - General Internal Medicine 10/10/14 09/02/16 Anila Craven MD PCP - General Internal Medicine 09/03/16 9 Stacy Parry MD PCP - General Internal Medicine 02/21/19 01/20/20 Victoriano Smith MD PCP - General Internal Medicine 01/21/20 07/07/22 Matt Wu MD PCP - General Internal Medicine 07/08/22 Reyna Laboy MD [address] [phone] Specialist Neurosurgery 12/22/23 Chris Wallace PA-C 175 [facility] [address] [place] [address] Specialist Neurosurgery 03/10/24 Latoya Hardy PA-C [address] [address] Specialist Neurosurgery 03/10/24 documented as of this encounter
--- OUTSIDE RECORDS SUMMARY | 2024-09-16 15:21 | XMS_ITS | Encounter Summary ---
Author Organization [employer] Address [address] [facility] 7t [place] [address] Care Team Providers Care Fitting Room Supervisor Name Role Phone Name, Matt APPIAH Primary Care Provider [phone] Reason for Visit * Reason Onset Date Comments Med Refill 01/21/2024 Encounter Details Date Type Department Care Team (Late st Contact Info) Description 01/21/2024 Telephone [facility] MEDICINE [address] [place] [address] Name, MD Matt [address] [place] [address] Med Refill Social History Tobacco Use Types [...] 10 MG tablet To be sent to: [facility] - [place], [place] - [phone] - [place], [place] - [address]ates documented in this encounter Plan of Treatment Upcoming Encounters Date Type Department Care Team (Late st Contact Info) Description 11/30/2024 2:30 PM EDT Office Visit [facility] MEDICINE [address] [place] [address] Name, MD Matt [address] [place] [address] documented as of this encounter Visit Diagnoses Not on filedocumented in this encounter Additional Health Concerns Assessment Noted Time PHQ-9 Depression Total Score: 0 09/07/19 3:15 PM EDT documented as of this encounter Care Teams Fitting Room Supervisor Relationship Specialty Start Date End Date Name, MD Matt [address] [place] [address] PCP - General Family Medicine 02/21/22 Estephanie Tan Transcript EvaluatorCarpet Repairer 11/24/23 documented as of this encounter
--- OUTSIDE RECORDS SUMMARY | 2024-09-16 15:21 | XMS_ITS | Encounter Summary ---
Author Organization [facility] Address [address] [place] [address] Support Name Relationship Address Phone Kimo Sprague Emergency Contact [address] [facility] [address] [place] [address] Care Team Providers Care Nursing Executive Name Role Phone Makayla Sam DO Primary Care Pro vider Unavailable Anila Craven MD Primary Care Provider Un available Stacy Parry MD Primary Care Provider Unavail able Victoriano Smith MD Primary Care Provider Unava ilable Bryce, Matt APPIAH Primary Care Provider Unavailabl Reyna León MD Unavailable [phone] Chris Wallace PA-C Unavailable Latoya Hardy PA-C Unavailable [phone] Encounter Details Date Type Department Care Team Description 02/11/2016 Mental Hygiene Consultant Report Medical Records [address] [place] [address] Cecilia Mcgregor, RD, LDN 175 [facility] 200 [place] [address] Social History Tobacco Use Types Packs/Day Years Used Date Smoking Tobacco: Never Alcohol Use Standard Drinks/Week Comments No 0 (1 standard drink = 0.6 oz pur e alcohol) Sex Assigned at Date Recorded Not on file documented as of this encounter Plan of Treatment Not on file documented as of this encounter Visit Diagnoses Not on filedocumented in this encounter Care Teams Nursing Executive Relationship Specialty Start Date End Date Makayla Sam DO PCP - General Internal Medicine 10/10/14 09/02/16 Anila Craven MD PCP - General Internal Medicine 09/03/16 9 Stacy Parry MD PCP - General Internal Medicine 02/21/19 01/20/20 Victoriano Smith MD PCP - General Internal Medicine 01/21/20 07/07/22 Matt Wu MD PCP - General Internal Medicine 07/08/22 Reyna Laboy MD [address] [address] Specialist Neurosurgery 12/22/23 Chris Wallace PA-C 175 [facility] [address] [place] [address] Specialist Neurosurgery 03/10/24 Latoya Hardy PA-C [address] [address] Specialist Neurosurgery 03/10/24 documented as of this encounter
--- OUTSIDE RECORDS SUMMARY | 2024-09-16 15:21 | XMS_ITS | Encounter Summary ---
Author Organization [employer] Address [address] [facility] 7t [place] [address] Care Team Providers Care Loan Workout Officer Name Role Phone Name, Matt APPIAH Primary Care Provider [phone] Reason for Visit * Reason Onset Date Comments triage 09/18/2022 Encounter Details Date Type Department Care Team ([facility] st Contact Info) Description 09/18/2022 Telephone [facility] MEDICINE [address] [place], [place] [phone] Name, MD Matt [address] [place], [place] [phone] triage Social History Tobacco Use Types Packs/Day [...] The caller accepted this outcome pt speaks south african documented in this encounter Plan of Treatment Upcoming Encounters Date Type Department Care Team (Late st Contact Info) Description 11/30/2024 2:30 PM EDT Office Visit [facility] MEDICINE [address] [place] [address] Matt Wu MD [address] [place] [address] documented as of this encounter Visit Diagnoses Not on filedocumented in this encounter Care Teams Loan Workout Officer Relationship Specialty Start Date End Date NameMatt MD 230 [place] [address] PCP - General Family Medicine 02/21/22 Estephanie Tan Director Medical EconomicsPhotonics Engineering Technologist 11/24/23 documented as of this encounter
--- OUTSIDE RECORDS SUMMARY | 2024-09-16 15:21 | XMS_ITS | Clinical Summary ---
Author Organization [employer] Address [address] [facility] [address] [place] [address] Care Team Providers Care Junior Database Administrator Name Role Phone Name, Matt APPIAH Primary Care Provider [phone] Allergies Active Allergy Reactions Criticality Noted Date [...] DOS SOPLIDOS DOS VECES AL D A Active Diclofenac Sodium 1 % gel Apply [...] 08/25/[address] Laboy at [facility] Class 2 obesity 11/06/2023 CLARA (generalized anxiety [...] agreed to referral. She requested referral in [facility]. Provided education around integrated medicine and the options of follow up BE's as needed. Provided contact information should questions or concerns arise. ?? Plan: Farrah will engage in effective coping mechanisms to manage sxs. Referral will be placed for Ind Therapy and Psychiatrist at [facility], per her request. 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 Hemorrhoids 06/04/2017 Overview (11/06/2023): Internal & external Nonalcoholic steatohepatitis (HURD) 06/04/2017 Insomnia 08/23/2015 Carpal tunnel syndrome 12/25/2014 Overview (01/01/2023): Bilateral - negative EMG at [place] 2014 Osteoarthritis 12/25/2014 Overview (01/01/2023): Hands, knees, [...] reflux disease) 2 Overview (01/01/2023): F/u GI [facility] H/o H.pylori x 3 Resolved Problems Problem [...] callus 04/13/2018 07/08/2023 Onychomycosis 03/23/2018 07/08/2023 Old UT (myocardial infarction) 12/25/2014 11/06/2023 Overview (01/01/2023): 1998/ Dr Perez 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 07/08/2023 Other psoriasis and similar disorders 12/03/2011 07/08/2023 Encounters Date Type Department Care Team Description 09/09/2024 Orders Only GENERIC EXTERNAL DATA DEPARTMENT Provider, Generic External Data 08/18/2024 Refill [facility] [address], [place] [phone] Name, MD Matt Insomnia, unspecified type 08/15/2024 2:30 PM EST Office Visit [facility] [address] [place] [address] Name, MD Matt Type 2 diabetes mellitus with neurological manifestations, controlled (CMS/FORMERLY [facility]) (Primary Dx); Hypertension, unspecified type; High cholesterol; Vaccination refused by patient 08/15/2024 Travel 08/10/2024 Telephone [facility] [address] [place] [address] Matt Wu MD chartprep 08/08/2024 Telephone [facility] [address] [place] [phone] Yolande Knight MD 08/05/2024 Orders Only [facility] [address] [place] [phone] Yolande Knight MD 08/04/2024 3:20 PM EST Office Visit [facility] [address] [address] Yolande Knight MD Rash (Primary Dx); Primary hypertension 08/04/2024 Orders Only GENERIC EXTERNAL DATA DEPARTMENT Provider, Generic External Data 08/04/2024 Travel 08/04/2024 Telephone [facility] [address] [place] [phone] Matt Wu MD Nurse Triage 07/28/2024 Orders Only GENERIC EXTERNAL DATA DEPARTMENT Provider, Generic External Data 07/22/2024 Refill [facility] [address] [place] [phone] Michelle Han MD Insomnia, unspecified type 06/22/2024 Telephone [facility] [address] [place] [phone] Matt Wu MD Med Refill 06/22/2024 Refill [facility] [address] [place] [phone] Matt Wu MD Insomnia, unspecified type 06/18/2024 Refill [facility] [address] [place] [phone] Matt Wu MD Essential hypertension from Last [...] Description 11/30/2024 2:30 PM EDT Office Visit [facility] [address] [place] [address] Name, MD Matt [address] [place] [address] Health Maintenance Due Date Last Done Comments [...] Screening 12/17/2024 12/18/2023 Diabetes: Hemoglobin A1C 02/15/2025 025, 03/22/2024, 07/08/2023, Additional history exists Diabetes: Foot Exam 03/22/2025 03/22/2024, 03/22/2024, 03/22/2024, Additional history exists Mammogram 05/27/2025 05/27/2024, 04/16, 05/04/2023, Additional history exists Lipid Panel 08/04/2025 08/04/2024, 01/0 08/2024, 09/09/2023 Tobacco Screening 08/04/2025 08/04/2024 Cervical [...] Procedure Name Priority Date/Time Associated Diagnosis Comments CT ABDOMEN PELVIS WO CONTRAST Routine 09/15/2024 4:48 PM EDT HELICOBACTER PYLORI, UREA BREATH TEST Routine 09/09/2024 [...] WHOLE BLOOD Routine 07/28/2024 9:36 AM EST BI MAMMOGRAM SCREENING TOMOSYNTHESIS BILATERAL Routine [...] Recently Relevant to Health Maintenance Results * CT Abdomen Pelvis w/o Contrast (09/15/2024 4:48 PM EDT) Anatomical Region Laterality Modality Body, Pelvis, Abdomen Computed T omography 09/15/2024 4:48 PM EDT Narrative 09/15/2024 4:49 PM EDT ? [facility] ?[address] ?[place] [address] ? CT Scan Report ? Signed ? Patient: Bc,Farrah ?MR#: [id number] ?? 3 ? : 1970 ?Acct:[id number] ? Age/Sex: 54 / F ?ADM Date: 09/14/24 ? Loc: HO.CT ? Attending Dr: Masood Meier MD ? Ordering Physician: Masood Meier MD ?? Date of Service: 09/14/24 ?? Procedure(s): CT abdomen pelvis wo IV con ?? Accession Number(s): [id number] ? cc: Masood Meier MD; Name,Matt APPIAH ? Report Number: ?? [id number]: Total DLP = ??934.00 mGy-cm ? CLINICAL HISTORY: N20.0 - Calculus of kidney ? CT abdomen and pelvis without contrast ? Comparison: CT/REG/CT/SR - CT ABDOMEN PELVIS WO IV CON - 05/22/23 22:33 EST ? Findings: ?? No consolidation or effusion. ? Unremarkable gallbladder and solid organs. No urolithiasis. ?? No bowel obstruction, pneumoperitoneum, or pneumatosis. ? Pelvic contents unremarkable. Appendix is not seen. ?? No acute fracture. ? IMPRESSION: ?? No acute findings. ? This document has been electronically signed by: Kimberly Mcclure MD on ?? 09/15/2024 16:48:25 ? Dictated By: ?Kimberly Mcclure MD ? Signed By: ?<Electronically signed by Kimberly Mcclure MD in OV> ? 09/15/241648 ? DD/ 47 ? TD/TT: 09/15/241647 ? Buildings And Grounds Director: ? Procedure Note Lenore Stokes - 09/15/[address] [address] [address] Scan Report Signed Patient: BcRoxanneAishwarya#: [id number] 3 : 1970Acct:[id number] Age/Sex: 54 / FADM Date: 09/14/24 Loc: HO.CT Attending Dr: Masood Meier MD Ordering Physician: Masood Meier MD Date of Service: 09/14/24 Procedure(s): CT abdomen pelvis wo IV con Accession Number(s): [id number] cc: Masood Meier MD; Name,Matt APPIAH Report Number: [id number]: Total DLP = 934.00 mGy-cm CLINICAL HISTORY: N20.0 - Calculus of kidney CT abdomen and pelvis without contrast Comparison: CT/REG/CT/SR - CT ABDOMEN PELVIS WO IV CON - 05/22/23 22:33 EST Findings: No consolidation or effusion. Unremarkable gallbladder and solid organs. No urolithiasis. No bowel obstruction, pneumoperitoneum, or pneumatosis. Pelvic contents unremarkable. Appendix is not seen. No acute fracture. IMPRESSION: No acute findings. This document has been electronically signed by: Kimberly Mcclure MD on 09/15/2024 16:48:25 Dictated By: Kimberly Mcclure MD Signed By: <Electronically signed by Kimberly Mcclure MD in OV> 09/15/24 1649 DD/ 1648 TD/TT: 09/15/24 1648 Buildings And Grounds Director: [facility] External Provider IMG CT PROCEDURES Final Result * Helicobacter pylori, Urea Breath Test (09/09/2024 1:40 PM EDT) H. pylori Breath Test Positive Negative [facility] Comment:Antimicrobials, prot on pump inhibitors and bismuthpreparations are known to suppress H. pylori. Ingestingthese medications within two weeks prior to performing thebreath test may produce negative test results. A positiveresult is still clinically valid. 09/09/2024 1:40 PM EDT 09/09/2024 2:19 PM EDT Generic External Data Provider LAB BLOOD ORDERAB LES Final Result [facility] [address] [place] [phone] * (ABNORMAL) POCT HGB A1C (08/15/2024 3:04 PM EST) Pathologist [facility] Hemoglobin A1C 6.7(A) 4.0 - 6.0 % QC Media Lot # [id number] Lot# Expiration Date [id number] Blood 08/15/2024 3:04 PM EST Matt Name POINT OF CARE TEST ENTER/EDIT OR DERABLES Final Result * POCT Glucose (08/15/2024 3:03 PM EST) Pathologist [facility] Glucose Blood, POC 119 60 - 200 mg/dL QC Media Lot # [id number] Lot# Expiration Date [id number] Blood Capillary blood specimen / Unknown 08/15/2024 3:03 PM EST Matt Wu MD POINT OF CARE TEST ENTER/EDIT OR DERABLES Final Result * (ABNORMAL) CBC auto differential (08/04/2024 4:08 PM EST) [facility] White Blood Count 9.5 4.8 - 10.8 X10*3/uL [facility] Red Blood Count 5.20 4.20 - 5.50 X10*6/uL [facility] Hemoglobin 13.9 12.0 - 16.0 g/dl [facility] Hematocrit 43.9 37.0 - 47.0 % [facility] Mean Corpuscular Volume 84.4 80.0 - 98.0 fL [facility] Mean Corpuscular Hemoglobin 26.7(L) 27.0 - 33.0 pg [facility] Mean Corpuscular HGB Conc 31.7 31.0 - 35.0 g/dl [facility] Red Cell Distribution Width 13.8 11.0 - 16.0 % [facility] Platelet Count 317 160 - 400 X10*3/uL [facility] Mean Platelet Volume 10.4 9.4 - 12.3 fL [facility] Neutrophils Percent Auto 55.9 45 - 73 % [facility] Imm Gran Pct Auto 0.3 0.0 - 0.4 % [facility] Lymphocytes Percent Auto 32.2 20 - 40 % [facility] Monocytes Percent Auto 9.3 2 - 11 % [facility] Eosinophils Percent Auto 1.7 0 - 4 % [facility] Basophils Percent Auto 0.6 0 - 2 % [facility] NRBC Pct Auto 0.0 0.0 - 0.2 /100WBC [facility] Neutrophils Absolute Auto 5.3 2.0 - 8.3 x10*3/uL [facility] Imm Gran Abs Auto 0.03 0.00 - 0.03 X10*3/uL [facility] Lymphocytes Absolute Auto 3.1 1.2 - 4.9 X10*3/uL [facility] Monocytes Absolute Auto 0.9 0.1 - 1.2 X10*3/uL [facility] Eosinophils Absolute Auto 0.2 0.0 - 0.4 X10*3/uL [facility] Basophils Absolute Auto 0.1 0.0 - 0.2 X10*3/uL [facility] NRBC Abs Auto 0.000 0.0 - 0.012 X10*3/uL [facility] Blood Venous blood specimen / Unknown 08/04/2024 4:08 PM EST 08/04/2024 5:50 PM EST us Yolande Victor MD LAB BLOOD ORDERABLES Final Result [facility] [address] [place], [place] [phone] * Partial Thromboplastin Time, Activated (APTT) (08/04/2024 4:08 PM EST) Partial Thromboplastin Time 30.4 26.0 - 36.8 SEC [facility] Comment:For information rega rding the monitoring of direct thrombininhibitors, please refer to Pharmacy. Blood Venous blood specimen / Unknown 08/04/2024 4:08 PM EST 08/04/2024 5:50 PM EST Yolande Victor MD LAB BLOOD ORDERABLES Final Result Performing Organization Address [facility] Co de Phone Number [facility] [address] [place] [phone] * Sed Rate by Modified Westergren (08/04/2024 4:08 PM EST) Erythrocyte Sedimentation Rate 19 0 - 20 MM/HR [facility] Comment:Patients with polycy themia and many hemoglobin abnormalitiesmay have depressed sed rates whereas patients with anemiamay have elevated sed rates. Blood Venous blood specimen / Unknown 08/04/2024 4:08 PM EST 08/04/2024 5:50 PM EST Yolande Victor MD LAB BLOOD ORDERABLES Final Result Performing Organization Address [facility] Co de Phone Number [facility] [address] [place] [phone] * Prothrombin Time-INR (08/04/2024 4:08 PM EST) Prothrombin Time 11.7 10.9 - 12.4 SEC [facility] INTERNATIONAL NORM RATIO 1.0 0.9 - 1.1 [facility] Comment:INTERNATIONAL NORMAL IZED RATIO (INR) [...] BLOOD ORDERABLES Final Result Performing Organization Address City/[facility]/ZIP Co de Phone Number [facility] [address] [place] [phone] * (ABNORMAL) C-reactive Protein (08/04/2024 4:08 PM EST) Pathologist [facility] C Reactive Protein 0.93(H) < or = 0.50 mg/dL [facility] Blood Venous blood specimen / Unknown 08/04/2024 4:08 PM EST 08/04/2024 5:50 PM EST Yolande Victor MD LAB BLOOD ORDERABLES Final Result Performing Organization Address [facility] Co de Phone Number [facility] [address] [place] [phone] * BIN Screen,IFA, with Reflex to Titer and Pattern (08/04/2024 4:08 PM EST) Anti Nuclear Antibody Screen NEGATIVE NEGATIVE [facility] Comment:BIN IFA is a first [...] clinicallysuspected inflammatory myopathies.AC-0: NegativeInternational Consensus on BIN Patterns(https://doi.org/10.1515/qrrr-6839-2402)For additional information, please refer tohttp://education.Gameleon/faq/UHX471(This link is being provided for informational/educational purposes only.)THIS TEST WAS PERFORMED AT:[employer] [place] [phone] PATTERSON MD BIN Titer TNP [facility] (REF LAB) [facility] BIN Pattern [address] [facility] BIN TITER 3 [facility] BNI PATTERN 3 [facility] Blood Venous blood specimen / Unknown 08/04/2024 4:08 PM EST 08/04/2024 5:50 PM EST us Yolande Victor MD LAB BLOOD ORDERABLES Final Result Performing Organization Address [facility] Co de Phone Number [facility] [address] [place] [phone] [phone] * (ABNORMAL) Lipid Panel, Standard (08/04/2024 4:08 PM EST) Triglycerides 330(H) <150 mg/dL [facility] Comment:Desirable Triglyceri de: less than 150 mg/dLBorderline High Triglyceride 150-199 mg/dLHigh Triglyceride: 200-499 mg/dLVery High Triglyceride: greater than or equal to 5OO mg/dL Cholesterol 216(H) <200 mg/dL [facility] Comment:Desirable Cholestero l: less than 200 mg/dLBorderline High Cholesterol: 200-239 mg/dLHigh Cholesterol: greater than 239 mg/dL LDL Cholesterol Calculated 117(H) <100 mg/dL [facility] Comment:Desirable LDL: less than 100 mg/dLNear Optimal/Above Optimal LDL: 110- 129 mg/dLBorderline High LDL: 130-159 mg/dLHigh LDL: 160-189 mg/dLVery High LDL: greater than or equal to 190 mg/dL HDL Cholesterol 33(L) >40 mg/dL [facility] Comment:Desirable HDL: great er than 40 mg/dL Note: This HDL assay may give artificially low results in patients with liver disease. 08/04/2024 4:08 PM EST 08/04/2024 5:50 PM EST us Generic External Data Provider LAB BLOOD ORDERAB LES Final Result [facility] [address] [place] [address] [phone] * (ABNORMAL) Comprehensive Metabolic Panel (08/04/2024 4:08 PM EST) Sodium 144 135 - 145 mmol/L [facility] Potassium 3.8 3.3 - 5.1 mmol/L [facility] Chloride 107 96 - 108 mmol/L [facility] Carbon Dioxide 30(H) 22 - 29 mmol/L [facility] Anion Gap 11(L) 12 - 20 [facility] Urea Nitrogen (BUN) 15 9 - 16 mg/dL [facility] Creatinine, Serum 0.70 0.5 - 1.4 mg/dL [facility] Estimated Glomerular Filt Rate >60 [facility] Comment:Chronic Kidney Disea se: Estimated GFR < 60 mL/min/1.76u6Zkwpol Kidney Disease: Estimated GFR < 15 mL/min/1.73m2 Glucose 89 60 - 115 mg/dL [facility] Calcium 9.4 8.4 - 10.2 mg/dL [facility] Bilirubin, Total 0.6 0.0 - 1.0 mg/dL [facility] Aspartate Amino Transferase 44(H) 5 - 31 U/L [facility] Alanine Aminotransferase 51(H) 0 - 31 U/L [facility] Total Protein 7.9 6.5 - 8.0 g/dL [facility] Albumin Level 4.1 3.5 - 5.0 g/dL [facility] Alkaline Phosphatase 131(H) 39 - 117 U/L [facility] Blood Venous blood specimen / Unknown 08/04/2024 4:08 PM EST 08/04/2024 5:50 PM EST us Yolande Victor MD LAB BLOOD ORDERABLES Final Result [facility] [address] [place] [phone] * Hematoxylin and Eosin Stain (07/28/2024 10:26 AM EST) 07/28/2024 10:2 6 AM EST 07/28/2024 11:14 AM EST Narrative [facility] - 08/02/2024 3:41 PM EST ----- ------- Name: Farrah Yancey ?Age/Sex: 54/F ? : 1970 Unit#: [id number] ?? Attend Dr: Marilyn Reddy MD ?Re07/28/24 ?Status: DEP SDC ? Location: HO.SSS ?Disch: ? ----- ------- SPEC : [id number] ?RECD: 07/28/24-780 ? STATUS: ??SOUT ? REQ NUM: [id number] ? SARTHAK: 07/28/24-1026 ? SUBM DR: Marilyn Reddy MD ? ENTERED: ??07/28/24-3 ?SP TYPE: Surgical ? OTHR DR: Matt [...] Yancey ?Age/Sex: 54/F ? : 1970 Unit#: [id number] ?? Attend Dr: Marilyn Reddy MD ?Re07/28/24 ?Status: DEP SDC ? Location: HO.SSS ?Disch: ? ----- ------- SPEC : [id number] ?RECD: 07/28/24-1113 ? STATUS: ??SOUT ? REQ NUM: [id number] ? SARTHAK: 07/28/24-6 ? SUBM DR: Marilyn Reddy MD ? ENTERED: ??07/28/24-1123 ?SP TYPE: Surgical ? OTHR DR: Name,Matt [...] microscopic examination, 2 pieces in cassette E. ??[facility] Special studies ordered and performed: Immunostain for H. pylori on B; AB/PAS stains on A, B and C Copies To: ?? Marilyn Reddy MD ?? [facility] Gastroenterology Services ?? [address] ?? [place] [address] ?? [phone] ?? Name,Matt APPIAH ?? [address] ?? [place] [address] ?? [phone] ----- ------- Signed (signature on file) Chris Hendrix MD 08/02/24 1541 ? ----- ------- ? END OF REPORT ? us Generic External Data Provider LAB BLOOD ORDERAB LES Final Result Performing Organization Address [facility] Co de Phone Number [facility] [address] [place] [address] [phone] * (ABNORMAL) Glucose, Whole Blood (07/28/2024 9:36 AM EST) Pathologist [facility] Glucose, Whole Blood 133(H) 60 - 115 mg/dL [facility] Comment:METER #: [id number] 07/28/2024 9:36 AM EST 07/28/2024 9:40 AM EST Generic External Data Provider LAB BLOOD ORDERAB LES Final Result Performing Organization Address [facility] Co de Phone Number [facility] [address], [place] [phone] * BI Mammogram Screening Tomosynthesis Bilateral (05/27/2024 1:45 PM EST) Anatomical Region Laterality Modality Breast Bilateral Mammography 05/27/2024 1:45 PM EST Narrative 06/06/2024 4:29 PM EST ? [facility] ? [address] ?[place] [address] ? Mammography Report ? Signed ? Patient: Bc,Farrah ?MR#: [id number] ?? 3 ? : 1970 ?Acct:[id number] ? Age/Sex: 54 / F ?ADM Date: 05/27/24 ? Loc: HO.MAMMO ? Attending Dr: Matt Wu MD ? Ordering Physician: Matt Wu MD ?Results: 1Negative ? Date of Service: 05/27/24 ?Follow Up: 1 Year From Orig ?? inal Mammogram ? Procedure(s): MM tomosynthesis screening BI ?? Accession Number(s): [id number] ? cc: Bryce,Matt APPIAH ? EXAMINATION: ?? MM SCREENING DIGITAL [...] ??Jenni Woods DO ??06/06/2024 04:26 PM EST ?? RP ? Dictated By: ?Jenni Woods DO ? Signed By: ?<Electronically signed by Jenni Woods, DO in OV> ? 06/06/24 1626 ? DD/ 1345 ? TD/TT: 05/27/24 1408 ? Buildings And Grounds Director: ? Procedure Note Donotkandyinterpreter, Image - 06/06/2024 [facility] [address] [place] [address] Mammography Report Signed Patient: David Yancey#: [id number] 3 : 1970Acct:[id number] Age/Sex: 54 / FADM Date: 05/27/24 Loc: HO.MAMMO Attending Dr: Matt Wu MD Ordering Physician: Matt Wu MDResults: 1Negative Date of Service: 05/27/24Follow Up: 1 Year From Orig inal Mammogram Procedure(s): MM tomosynthesis screening BI Accession Number(s): [id number] cc: Matt Wu MD EXAMINATION: MM SCREENING [...] Jenni Woods DO 06/06/2024 04:26 PM EST RP Dictated By: Jenni Woods DO Signed By: <Electronically signed by Jenni Woods DO in OV> 06/06/24 1626 DD/ 1345 TD/TT: 05/27/24 1408 Buildings And Grounds Director: us Matt Wu MD IMG BI PROCEDURES Final Result * HIV-1/2 Antigen and Antibodies, Fourth Generation, with Reflexes (12/21/2023 12:36 PM EDT) HIV AB/AG Nonreactive Nonreactive [facility] Comment:HIV-1 p24 Ag and/or HIV-1/HIV-2 Ab not detected.A test result that is nonreactive does not exclude thepossibility of exposure to or infection with HIV-1 and/orHIV-2. Nonreactive results in this assay for individualswith prior exposure to HIV-1 and/or HIV-2 may be due toantigen and antibody levels that are below the limit ofdetection of this assay.The [employer] HIV Ag/Ab Combo assay result andsupplemental assay results should be interpreted inconjunction with the patient's clinical presentation,history and other laboratory results. If the results areinconsistent with clinical evidence, additional testing issuggested to confirm the result. Blood Venous blood specimen / Unknown 12/21/2023 12:36 PM EDT 12/21/2023 12:36 PM EDT us Matt Wu MD LAB BLOOD ORDERABLES Final Resul t [facility] [address] [place] [address] [phone] * Albumin, Random Urine W/Creatinine (09/09/2023 12:24 PM EDT) Creatinine, Urine 120.92 mg/dL [facility] Microalbumin Urine 6.0 mg/L [facility] Microalbum Creatinine Ratio Ur 4.9 <30 ug/mg cr [facility] Comment:Albumin/Creatinine R atio Reference Ranges: Normal: < 30 ug/mg creatinine Microalbuminuria: 30 - 300 ug/mg creatinineClinical Albuminuria: > 300 ug/mg creatinine Urine (Urine, Random) 09/09/2023 12:24 PM EDT 09/09/2023 2:10 PM EDT Matt Wu MD LAB URINE ORDERABLES Final Resul t Performing Organization Address [facility] de Phone Number [facility] [address] [place] [phone] * Hepatitis Panel, General (05/26/2022 4:23 PM EST) Hepatitis A IgM Nonreactive Nonreactive [facility] Comment:IgM antibodies to TORRES V not detected; does not exclude earlyacute or recovered HAV infection. ~Hepatitis B Surface Antibody NONREACTIVE Nonreactive [facility] Comment:Nonreactive: < 8.00 mIU/mL Hepatitis B Core Antibody Nonreactive Nonreactive [facility] Hepatitis C Antibody Nonreactive Nonreactive [facility] Comment:Antibodies to HCV no t detected; does not exclude early acuteHCV infection. Hepatitis B Surface Antigen Negative Negative [facility] 05/26/2022 4:23 PM EST 05/26/2022 4:23 PM EST [facility] External Provider LAB BLO OD ORDERABLES Final Result Performing Organization Address [facility] de Phone Number [facility] [address] [place] [phone] * Hm Pap Smear (05/17/2021) Pap Negative for intraephithelial lesion or malignancy Negative for intraephithelial lesion or malignancy, Other HPV Not Detected Undetected, Indeterminate, Quantitative, Not Detected us Historical Provider HEALTH MAINTENANCE Final Result from Last 3 Months or Most Recently Relevant to Health Maintenance Insurance [facility] [employer] Care Teams Junior Database Administrator Relationship Specialty Start Date End Date Name, MD Matt [address] [place] [phone] PCP - General Family Medicine 02/21/22 Estephanie Tan Aircraft Structure MechanicFilament Shaper 11/24/23
--- OUTSIDE RECORDS SUMMARY | 2024-09-16 15:21 | XMS_ITS | Encounter Summary ---
Author Organization [facility] Address [address] [place] [address] Support Name Relationship Address Phone Kimo Sprague Emergency Contact [address] [place] [address] Care Team Providers Care Gospel Singer Name Role Phone Anila Craven MD Primary Care Provider Un available Stacy Parry MD Primary Care Provider Unavail able Victoriano Smith MD Primary Care Provider Unava ilable Bryce, Matt APPIAH Primary Care Provider UnavailReyna Yañez MD Unavailable [phone] Chris WallaceC Unavailable Latoya Hardy PA-C Unavailable Reason for Visit * Reason Onset Date Comments Prior Authorization 08/20/2017 Encounter Details Date Type Department Care Team Description 08/20/2017 Telephone Adult Medicine [address] [address] Anila Craven MD Prior Authorization Social History [...] 3:56 PM EST She already switched to [employer], she will get a 7 day supply [...] What Pharmacy did the fax come from: [facility] Pharm[facility] fax #: [phone] [employer] Information from fax: What Prescription Plan does the patient have? BIN/PCN if applicable: Cardholder ID: Person Code: Relationship Code: Help desk phone: documented in this encounter Plan of Treatment Not on file documented as of this encounter Visit Diagnoses Not on filedocumented in this encounter Care Teams Gospel Singer Relationship Specialty Start Date End Date Anila Craven MD PCP - General Internal Medicine 09/03/16 9 Stacy Parry MD PCP - General Internal Medicine 02/21/19 01/20/20 Victoriano Smith MD PCP - General Internal Medicine 01/21/20 07/07/22 Matt Wu MD PCP - General Internal Medicine 07/08/22 Reyna Laboy MD [address] [address] Specialist Neurosurgery 12/22/23 Chris Wallace PA-C [address] [address] Specialist Neurosurgery 03/10/24 Latoya Hardy PA-C [address] [address] Specialist Neurosurgery 03/10/24 documented as of this encounter
--- OUTSIDE RECORDS SUMMARY | 2024-09-16 15:21 | XMS_ITS | Encounter Summary ---
Author Organization [facility] Address [address] [place] [address] Support Name Relationship Address Phone Kimo Sprague Emergency Contact [address] [place] [address] Care Team Providers Care Residential Energy Auditor Name Role Phone Name, Matt APPIAH Primary Care Provider Unavailabl e Reyna Laboy MD Unavailable [phone] Chris Wallace PA-C Unavailable [phone] Latoya Hardy PA-C Unavailable Encounter Details Date Type Department Care Team Description 03/03/2024 SCAN [facility] Medical [facility] Neurosurgery [place] [address] [id number] Reyna Laboy MD [address] [address] Social History Tobacco Use Types Packs/Day Years [...] on filedocumented in this encounter Care Teams Residential Energy Auditor Relationship Specialty Start Date End Date Name, MD Matt PCP - General Internal Medicine 07/08/22 Reyna Laboy MD [address] [address] Specialist Neurosurgery 12/22/23 Chris Wallace PA-C [address] [address] Specialist Neurosurgery 03/10/24 Latoya Hardy PA-C [address] [facility] [address] [place] [address] Specialist Neurosurgery 03/10/24 documented as of this encounter
--- OUTSIDE RECORDS SUMMARY | 2024-09-16 15:21 | XMS_ITS | Encounter Summary ---
Author Organization [facility] Address [address] [place] [address] Support Name Relationship Address Phone Kimo Sprague Emergency Contact [address] [place] [address] Care Team Providers Care Research Dietitian Name Role Phone Makayla Sam DO Primary Care Pro vider Unavailable Anila Craven MD Primary Care Provider Un available Stacy Parry MD Primary Care Provider Unavail able Victoriano Smith MD Primary Care Provider Unava ilable Name, Matt APPIAH Primary Care Provider UnavailReyna Yañez MD Unavailable [phone] Chris Wallace PA-C Unavailable Latoya Hardy PA-C Unavailable [phone] Encounter Details Date Type Department Care Team Description 05/02/2016 [facility] Medical Records [address] [place] [address] Abstract, Provider Social History Tobacco Use Types [...] on filedocumented in this encounter Care Teams Research Dietitian Relationship Specialty Start Date End Date Makayla Sam DO PCP - General Internal Medicine 10/10/14 09/02/16 Anila Craven MD PCP - General Internal Medicine 09/03/16 9 Stacy Parry MD PCP - General Internal Medicine 02/21/19 01/20/20 Victoriano Smith MD PCP - General Internal Medicine 01/21/20 07/07/22 Bryce, MD Matt PCP - General Internal Medicine 07/08/22 Reyna Laboy MD [address] [id number] Specialist Neurosurgery 12/22/23 Chris Wallace PA-C [address] [address] Specialist Neurosurgery 03/10/24 Latoya Hardy PA-C [address] [address] Specialist Neurosurgery 03/10/24 documented as of this encounter
== END 2024-09-16 14:54 | disposition home or self-care (01) ==
LOC: HO.HGI 13:32
PROVIDERS: PCP Internal Medicine Geriatric Medicine; Visit Provider Nurse Practitioner
DX: R13.12 Dysphagia, oropharyngeal phase (principal); K59.00 Constipation, unspecified; K31.84 Gastroparesis; K21.9 Gastro-esophageal reflux disease without esophagitis; A04.8 Other specified bacterial intestinal infections
CPT/HCPCS: 99213

== ENCOUNTER → 2024-09-16 13:31 | Outpatient (BNVA) | payer MEDICAID, SELFPAY | PROVIDERS: PCP Internal Medicine Geriatric Medicine; Visit Provider Nurse Practitioner | DX: K59.00 Constipation, unspecified (principal); K31.84 Gastroparesis; K21.9 Gastro-esophageal reflux disease without esophagitis; R13.12 Dysphagia, oropharyngeal phase; A04.8 Other specified bacterial intestinal infections | CPT/HCPCS: 99212 ==

== ENCOUNTER 2024-09-19 13:54 | Outpatient (REF) | payer MEDICAID, SELFPAY ==
--- OUTSIDE RECORDS SUMMARY | 2024-09-19 16:37 | XMS_ITS | Encounter Summary ---
Author Organization [employer] Address [address] [facility] 7t [place] [address] Care Team Providers Care Equip Maint Eng Name Role Phone Name, Matt APPIAH Primary Care Provider [phone] Reason for Visit * Reason Onset Date Comments Med Refill 01/21/2024 Encounter Details Date Type Department Care Team (Late st Contact Info) Description 01/21/2024 Telephone [facility] [address] [place] [address] Name, MD Matt [address] [place] [address] Med Refill Social History Tobacco Use Types [...] 10 MG tablet To be sent to: [facility] - [place], [place] - [id number] - [place] - [address] documented in this encounter Plan of Treatment Upcoming Encounters Date Type Department Care Team (Late st Contact Info) Description 11/30/2024 2:30 PM EDT Office Visit [facility] [address] [place] [address] Name, MD Matt [address] [place] [address] documented as of this encounter Visit Diagnoses Not on filedocumented in this encounter Additional Health Concerns Assessment Noted Time PHQ-9 Depression Total Score: 0 09/07/19 3:15 PM EDT documented as of this encounter Care Teams Equip Maint Eng Relationship Specialty Start Date End Date Name, MD Matt [address] [place] [address] PCP - General Family Medicine 02/21/22 Estephanie Tan Financial Services AuditorHuman Factors Specialist 11/24/23 documented as of this encounter
--- OUTSIDE RECORDS SUMMARY | 2024-09-19 16:37 | XMS_ITS | Clinical Summary ---
Author Organization [facility] Address [address] [place] [address] Phone Care Team Providers Care Cardiology Teacher Name Role Phone Name, Matt APPIAH Primary Care Provider [phone] Allergies Active Allergy Reactions Criticality Noted Date [...] Kari esophagitis 10/08/2018 Overview (03/16/2024): F/[place] [facility] Helicobacter pylori (H. 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 Hemorrhoids 06/04/2017 Overview (03/16/2024): Internal & external Nonalcoholic steatohepatitis (HURD) 06/04/2017 Insomnia 08/23/2015 Carpal tunnel syndrome 12/25/2014 Overview (03/16/2024): Bilateral - negative EMG at [place] 2014 Migraine 12/25/2014 [place] (myocardial infarction) 12/25/2014 Overview (03/16/2024): 1998/ Dr [...] PM EST Office Visit Orthopedic Surgery - [address] [address] Smooth Sharp, DPM Dermatophytosis of nail (Primary Dx); Tinea pedis of both feet from Last 3 Months Immunizations Name Administration Dates Next Due Hepatitis B (Hrfpsxo-B-Fwdqa , Recombivax HB-Adult) 19yo and older 03/13/2009,02/16/2008,01/11/2008 [...] COMMENT: Mild tricuspid / mild pulmonic [place] (myocardial infarction) 12/25/2014 D X:[place] (myocardial infarction); COMMENT: Ej/ Dr Perez Hyperlipidemia [...] ([facility]); COMMENT: F/u GI C Helicobacter pylori (H. pylo ri) infection 10/08/2018 DX:Helicobacter pylori (H. p ylori) infection; COMMENT: F/u GI [facility] Family History Medical History Relation Name Comments [...] PM EDT Office Visit Orthopedic Surgery - [place] [address] [phone] Smooth Sharp, DPElizabeth [address] [address] Health Maintenance Due Date Last Done Comments [...] age to complete this topic Meningococcal B Vaccine Aged Out No l onger eligible based on patient's age to complete [...] Final Result * (ABNORMAL) Hemoglobin A1c (08/27/2019) [facility] Hemoglobin A1C 6.6(A) <=6.5 % Blood Venous blood specimen / Unknown [facility] Provider LAB BLOOD ORDERABLES Behzad l Result * Cervical Cancer Screening: HPV (05/19/2019) [facility] Cervical Cancer Screening: HPV negative, abstracted [facility] Provider HEALTH MAINTENANCE Final Result * Urine Albumin Creatinine Ratio (02/18/2019) [facility] Urine Albumin Creatinine Ratio abstracted [facility] Provider HEALTH MAINTENANCE Final Result * (ABNORMAL) Lipid panel (02/18/2019) [facility] LDL/HDL Ratio 7(A) 0 - 4 Triglycerides 443(A) 0 - 150 mg/dL Cholesterol 185 0 - 200 mg/dL HDL 27(A) >=40 mg/dL LDL Cholesterol 70 0 - 100 mg/dL Blood Venous blood specimen / Unknown Result [facility] Provider LAB BLOOD ORDERABLES Behzad l Result * Colonoscopy (09/24/2015) [facility] Colonoscopy no interpretation , abstracted Anatomical Region Laterality Modality Other [facility] Provider HEALTH MAINTENANCE Final Result from Last 3 Months or Most Recently Relevant to Health Maintenance Insurance MEDICAID - [place] Care Teams Cardiology Teacher Relationship Specialty Start Date End Date Name, MD Matt [address] [place], [place] PCP - General 07/08/22
--- OUTSIDE RECORDS SUMMARY | 2024-09-19 16:37 | XMS_ITS | Data Portability ---
Author Organization [place] [facility] Address [address] [place] [address] Care Team Providers Care Mental Health Therapist Name Role Phone YOLANDA VANEGAS Referring Provider [...] for amplification. Recommend she follow up with [facility], and discussed hearing aids would help [...] Organization Details Recorded Time Dizziness and giddiness [id number] Active 2017 Dizziness and giddiness ; Note: Date Diagnosed : 02/11/2018 2:44 PM (R42) Not Available [facility] 4 03:04:54 Sensorine ural hearing loss of bilateral ears 458540302 Active 2020 Sensorine ural hearing loss, bilateral ; Note: Date Diagnosed : 01/10/2021 2:50 PM (H90.3) Not Available [facility] 4 03:04:55 Headache 18129407 Active 2017 Headache, unspecifi ed; Note: Changed from R51 to R51.9 (07/19/2021 2:06 PM) , Date Diagnosed : 02/11/2018 2:44 PM (R51) Not Available [facility] 4 03:04:55 Migraine 88163572 Active 2020 Other migraine, not intractab le, without status migrainos us; Note: Date Diagnosed : 1 4:10 PM (G43.809) Not Available [facility] 4 03:04:56 Gastroeso phageal reflux disease without esophagit is 095412975 Active 2017 Gastro-es ophageal reflux disease without esophagit is; Note: Date Diagnosed : 03/05/2018 1:19 PM (K21.9) Not Available [facility] 4 03:04:53 Cough 38357874 Active 2017 Cough; Note: Date Diagnosed : 03/05/2018 1:16 PM (R05) Not Available [facility] 4 03:04:55 Referred otalgia of left ear 76331311962 [address] Active 2023 MARISSA CARCAMO PA-C [address] [facility] [place] [address], [facility] [place], [address] , [facility] - [facility] 4 12:01:45 Bilateral tinnitus 15309616115 02 Active 2023 MARISSA CARCAMO PA-C [address] [facility] [place],[facility] [address], [facility] [place], [address] , [place] - [facility] 4 12:01:52 Problem Notes None recorded. Procedures Surgical History Date Name Laterality Status Provider Name and Address Organization Details Recorded Time 024 Air & Speech Audio with Tymps (66757, 43143 & 71782) completed SHAHLA SLOAN [address] [facility] [address], [place], [address], [facility] - [facility] 05/27/2024 11:03:21 hemorrhoidectomy completed Mica Horner [place] - [facility] 05/27/2024 10:56:11 Appendectomy completed Mica Horner [place] - [facility] 05/27/2024 10:56:15 Imaging Results Imaging Date [...] Name and Address Organization Details Recorded Time 00819 gabapenti n medicatio n other Not available Not available 10/27/2023 32074 RxNorm React ion: unkno wn, unspe cifie d;; Not Available [facility] 4 00:48:25 44572 terbinafi ne medicatio n other Not available Not available 10/27/2023 19427 RxNorm React ion: unkno wn, unspe cifie d;; Not Available [facility] 4 00:48:25 23852 Lipitor medicatio n other Not available Not available 10/27/2023 66510 5 RxNorm React ion: unkno wn, unspe cifie d;; Not Available [facility] 4 00:48:25 86897 Crestor medicatio n other Not available Not available 10/27/2023 45238 4 RxNorm React ion: unkno wn, unspe cifie d;; Not Available [facility] 4 00:48:34 96875 sodium medicatio n other Not available Not available 10/27/2023 9853 RxNorm React ion: unkno wn, unspe cifie d;; Not Available [facility] 4 00:48:41 53655 Biaxin medicatio n other Not available Not available 10/27/2023 89006 9 RxNorm React ion: unkno wn, unspe cifie d;; Not Available [facility] 4 00:48:42 11001 Motrin medicatio n other Not available Not available 10/27/2023 54309 8 RxNorm React ion: unkno wn, unspe cifie d;; Not Available [facility] 4 00:48:53 82505 morphine medicatio n other Not available Not available 10/27/2023 7052 RxNorm React ion: unkno wn, unspe cifie d;; Not Available [facility] 4 00:48:59 05736 acetamino phen / hydrocodo ne medicatio n other Not available Not available 10/27/2023 58145 2 RxNorm React ion: unkno wn, unspe cifie d;; Not Available [facility] 4 00:49:06 40277 pravastat in medicatio n other Not available Not available 10/27/2023 05597 RxNorm React ion: unkno wn, unspe cifie d;; Not Available [facility] 4 00:49:07 Medications Name Sig Start Date Stop Date Status Note LastModified by Organization Details LastModified Time nystatin 100,000 unit/mL oral suspensio n 05/27 completed Medicati on ID: [id number] D uration Value: 30 Brand Name: nystatin [...] Alcohol Pads 05/27 completed Medicati on ID: [id number] D uration Value: 30 Brand Name: Alcohol [...] mg tablet 05/27 completed Medicati on ID: 220409 D uration Value: 30 Brand Name: carvedil ol Send Method: E-Prescr ibed Sub s Allowed: subs OK Speci al Instruct ion: TAKE ONE TABLET BY MOUTH 2 (two) times a day WITH A MEAL Med [facility] enElizabet me: carvedil ol Not Available [...] mg tablet 05/27 completed Medicati on ID: 633519 D uration Value: 28 Brand Name: zolpidem [...] ating tablet 05/27 completed Medicati on ID: 934637 D uration Value: 30 Brand Name: bree [...] elayed release 05/27 completed Medicati on ID: [id number] D uration Value: 30 Brand Name: donald [...] unit) capsule 2017 active Medicati on ID: 337345 D uration Value: 30 Brand Name: D3 Send Method: E-Prescr ibed Sub s Allowed: subs OK Speci al Instruct ion: TAKE ONE CAPSULE BY MOUTH DAILY Me dication GenericN louie: D3-2000 Not Available Not Available Not Available Easy Comfort Lancets 30 gauge 05/27 completed Medicati on ID: [id number] D uration Value: 30 Brand Name: Easy [...] SNOMED-CT Code Diagnosis ICD10 Code Diagnosis Note [id number] MIGUEL NATH MD [facility] of [address] [address] 05/27/2024 10:49:53 05/27/2024 11:53:18 Sensorineural hearing loss of bilateral ears [id number] H90.3 Right Ear:Normal hearing through 2K Hz sloping to a profound SNHL with good speech discrimina tion.Type A tympanogra m.Left Ear:Normal hearing through 2K Hz sloping to a profound SNHL with good speech discrimina tion.Type A tympanogra m. Referred o talgia of left ear [id number] 757520 H92.02 Bilateral tinnitus 30637 42219 102 H93.13 Health Concerns Section Related Observation LastModified by Organization Detai ls LastModified Time None Recorded Concern Status LastModified by Organization Details LastModified Time None Recorded Advance Directives Directive None Recorded Payers Encounter Date Sequence Insurance Name Policy Number Policy Juárez Covered Member ID Juárez Member ID Guarantor Name 05/27/2024 1 [place] [facility] Farrah Yancey [id number] Farrah Yancey Notes Date Note Type Note [...] caused pruritus. The amplification was dispensed by [facility] in [place]. Denies otorrhea or dizziness. Denies prior history of ear infections or ear surgeries. No history of loud noise exposure. No Qtip use. History of migraine. MIGUEL NATH MD [address] [place] [address], [phone], [place] - [facility] 05/28/2024 13:57:56 OBGyn Episode No OBEpisode recorded.
--- OUTSIDE RECORDS SUMMARY | 2024-09-19 16:37 | XMS_ITS | Encounter Summary ---
Author Organization [employer] Address [address] [facility] 7t [place] [address] Care Team Providers Care Parking Line Painter Name Role Phone Name, Matt APPIAH Primary Care Provider [phone] Reason for Visit * Reason Onset Date Comments Durable Medical Equipment 04/06/2024 Encounter Details Date Type Department Care Team (Late st Contact Info) Description 04/06/[address] [facility] [address] [place], [place] [phone] Name, MD Matt [address] [place] [address] Durable Medical Equipment Social History Tobacco Use [...] 2:30 PM EDT Office Visit [facility] [address] [place] [address] Name, MD Matt [address] [place] [address] documented as of this encounter Visit Diagnoses Not on filedocumented in this encounter Additional Health Concerns Assessment Noted Time PHQ-9 Depression Total Score: 0 09/07/19 24 3:15 PM EDT documented as of this encounter Care Teams Parking Line Painter Relationship Specialty Start Date End Date Name, MD Matt [address] [place], [place] [phone] PCP - General Family Medicine 02/21/22 Estephanie Tan Scutcher TenderRecovery Specialist 11/24/23 documented as of this encounter
--- OUTSIDE RECORDS SUMMARY | 2024-09-19 16:38 | XMS_ITS | Clinical Summary ---
Author Organization [employer] Address [address] [facility] 7[address] [place] [address] Care Team Providers Care Word Processing Machine Operator Name Role Phone Name, Matt APPIAH Primary Care Provider [phone] Allergies Active Allergy Reactions Criticality Noted Date [...] D A ANTES DE LAS COMIDAS 01/24/20 22 Active famotidine (Pepcid) 40 MG tablet Take [...] HAM 60 mL 3 08/08/19 23 Active ipratropium (Atrovent) 0.03 % nasal sprayIndications :Acute cough,Seasonal allergies Administer 2 sprays into each nostril every 12 (twelve) hours. 30 mL 12 09/30/19 24 025 Active mometasone (Elocon) 0.1 % [...] MEAL 180 tablet 1 06/20/19 25 Active Praluent 75 MG/ML injection INJECT THE CONTENT OF 1 syringe SUBCUTANEOUSLY EVERY 14 DAYS 07/26/19 25 Active zolpidem (Ambien) 10 MG tabletIndication s:Insomnia, unspecified type TAKE 1 TABLET BY MOUTH EVERY NIGHT AT BEDTIME FOR SLEEP 30 tablet 08/19/19 25 Active olopatadine (Patanol) 0.1 % ophthalmic solution Administer 1 drop into affected eye(s) 2 times daily. 5 mL 2 09/07/19 24 025 Active Problems Problem Noted Date Diagnosed Date History of cervical spinal surgery 03/22/2024 Overview (03/22/2024): s/p C4-5 ACDF on 03/01/2024 C5-6, C6-7 ACDF with plating on 08/25/[address] Laboy at [facility] Class 2 obesity 11/06/2023 CLARA (generalized anxiety [...] agreed to referral. She requested referral in [facility]. Provided education around integrated medicine and the options of follow up BE's as needed. Provided contact information should questions or concerns arise. ?? Plan: Farrah will engage in effective coping mechanisms to manage sxs. Referral will be placed for Ind Therapy and Psychiatrist at [facility], per her request. 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 Hemorrhoids 06/04/2017 Overview (11/06/2023): Internal & external Nonalcoholic steatohepatitis (HURD) 06/04/2017 Insomnia 08/23/2015 Carpal tunnel syndrome 12/25/2014 Overview (01/01/2023): Bilateral - negative EMG at [place] 2014 Osteoarthritis 12/25/2014 Overview (01/01/2023): Hands, knees, [...] reflux disease) 2 Overview (01/01/2023): F/u [facility] H/o H.pylori x 3 Resolved Problems Problem Noted Date Diagnosed Date Resolved Date Rash 08/04/2024 08/15/2024 Assessment & Plan (08/04/2024 4:19 PM EST): Blood work ordered today, patient will be contacted with results I will refer her to dermatology Helicobacter pylori gastritis 10/29/2018 08/15/2024 Helicobacter pylori (H. 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 08/15/2024 Foot callus 04/13/2018 07/08/2023 Onychomycosis 03/23/2018 07/08/2023 Old ID (myocardial infarction) 12/25/2014 11/06/2023 Overview (01/01/2023): 1998/ Dr Perez 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 07/08/2023 Other psoriasis and similar disorders 12/03/2011 07/08/2023 Encounters Date Type Department Care Team Description 09/09/2024 Orders Only GENERIC EXTERNAL DATA DEPARTMENT Provider, Generic External Data 08/18/2024 Refill [facility] MEDICINE [address] [place] [phone] NameMatt MD Insomnia, unspecified type 08/15/2024 2:30 PM EST Office Visit [facility] MEDICINE [address] [place] [phone] NameMatt MD Type 2 diabetes mellitus with neurological manifestations, controlled ([facility]) (Primary Dx); Hypertension, unspecified type; High cholesterol; Vaccination refused by patient 08/15/2024 Travel 08/10/2024 Telephone [facility] CHC MED & PEDS [address] [place] [address] NameMatt MD chartprep 08/08/2024 Telephone [facility] WALK-IN [address] [address] Yolande Knight MD 08/05/2024 Orders Only [facility] MEDICINE [address] [place] [address] Yolande Knight MD 08/04/2024 3:20 PM EST [facility] [address] [address] Yolande Knight MD Rash (Primary Dx); Primary hypertension 08/04/2024 Orders Only GENERIC EXTERNAL DATA DEPARTMENT Provider, Generic External Data 08/04/2024 Travel 08/04/2024 Telephone [facility] MEDICINE [address] [place] [phone] Matt Wu MD Nurse Triage 07/28/2024 Orders Only GENERIC EXTERNAL DATA DEPARTMENT Provider, Generic External Data 07/22/[address] [address] Michelle Han MD Insomnia, unspecified type 06/22/2024 Telephone [facility] MEDICINE [address] [place] [phone] Matt Wu MD Med Refill 06/22/[address] [address] Matt Wu MD Insomnia, unspecified type from Last 3 Months Immunizations Name Administration [...] Description 11/30/2024 2:30 PM EDT Office Visit [facility] [address] [facility] [place] [address] Name, MD Matt [address] [facility] [place] [address] Health Maintenance Due Date Last Done Comments CT Colonography 1970 Colonoscopy 1970 Colorectal Cancer Screening 1970 FIT DNA/Cologuard 1970 FIT 1970 FOBT 1970 Sigmoidoscopy 1970 Eye Exam 1980 Alcohol/Substance Use Screening 1982 Hepatitis A Vaccines (1 of 2 - Risk 2-dose series) 1989 Pneumococcal Vaccine: 50+ Years (1 of 2 - PCV) 1989 Zoster Vaccines (1 of 2) 2020 COVID-19 Vaccine ( - season) 2024 01/18/2021, 12/21/2020 Influenza Vaccine (#1) 2024 Depression Screening 09/06/2024 09/07/2023, 09/07/19 Diabetes: Urine Protein Screening 09/08/2024 09/09/2023, 07/08/2023, 03/24/2022 SDOH Screening 12/17/2024 12/18/2023 Diabetes: Hemoglobin A1C 02/15/2025 025, 03/22/2024, 07/08/2023, Additional history exists Diabetes: Foot Exam 03/22/2025 03/22/2024, 03/22/2024, 03/22/2024, Additional history exists Mammogram 05/27/2025 05/27/2024, 04/16, 05/04/2023, Additional history exists Lipid Panel 08/04/2025 08/04/2024, 08/2024, 09/09/2023 Tobacco Screening 08/04/2025 08/04/2024 Cervical [...] EDT Narrative 09/15/2024 4:49 PM EDT ? [facility] ?[address] ?[place] [address] ? CT Scan Report ? Signed ? Patient: Bc,Farrah ?MR#: [id number] ?? 3 ? : 1970 ?Acct:[id number] ? Age/Sex: 54 / F ?ADM Date: /02/25 ? Loc: HO.CT ? Attending Dr: Masood Meier MD ? Ordering Physician: Masood Meier MD ?? Date of Service: 09/14/24 ?? Procedure(s): CT abdomen pelvis wo IV con ?? Accession Number(s): [id number] ? cc: Masood Meier MD; Name,Matt APPIAH ? Report Number: ?? [id number]: Total DLP = ??934.00 mGy-cm ? CLINICAL HISTORY: N20.0 - Calculus of kidney ? CT abdomen and pelvis without contrast ? Comparison: CT/REG/NY/SR - CT ABDOMEN PELVIS WO IV CON [...] by Kimberly Mcclure MD in OV> ? 09/15/24 1649 ? DD/ 1648 ? TD/TT: 09/15/248 ? Overhead Distribution Engineer: ? Procedure Note Diyva, Image - 09/15/[address] [place] [address] [address] Scan Report Signed Patient: David Yancey#: [id number] 3 : 1970Acct:[id number] Age/Sex: 54 / FADM Date: 09/14/24 Loc: HO.CT Attending Dr: Masood Meier MD Ordering Physician: Masood Meier MD Date of Service: 09/14/24 Procedure(s): CT abdomen pelvis wo IV con Accession Number(s): [id number] cc: Masood Meier MD; Name,Matt APPIHA Report Number: [id number]: Total DLP = 934.00 mGy-cm CLINICAL HISTORY: N20.0 - Calculus of kidney CT abdomen and pelvis without contrast Comparison: CT/REG/NY/SR - CT ABDOMEN PELVIS WO IV CON [...] 09/15/24 1649 DD/ 1648 TD/TT: 09/15/24 1648 Overhead Distribution Engineer: [facility] External Provider IMG CT PROCEDURES Final Result * Helicobacter pylori, Urea Breath Test (09/09/2024 1:40 PM EDT) H. pylori Breath Test Positive Negative [facility] Comment:Antimicrobials, prot on pump inhibitors and bismuthpreparations are known to suppress H. pylori. Ingestingthese medications within two weeks prior to performing thebreath test may produce negative test results. A positiveresult is still clinically valid. 09/09/2024 1:40 PM EDT 09/09/2024 2:19 PM EDT Generic External Data Provider LAB BLOOD ORDERAB LES Final Result [facility] [address] [place] [address] [phone] * (ABNORMAL) POCT HGB A1C (08/15/2024 3:04 PM EST) Hemoglobin A1C 6.7(A) 4.0 - 6.0 % QC Media Lot # [id number] Lot# Expiration Date Blood 08/15/2024 3:04 PM EST us Matt Name POINT OF CARE TEST ENTER/EDIT OR DERABLES Final Result * POCT Glucose (08/15/2024 3:03 PM EST) Pathologist [facility] Glucose Blood, POC 119 60 - 200 mg/dL QC Media Lot # [id number] Lot# Expiration Date [id number] Blood Capillary blood specimen / Unknown 08/15/2024 3:03 PM EST us Matt Name POINT OF CARE TEST ENTER/EDIT OR DERABLES Final Result * (ABNORMAL) CBC auto differential (08/04/2024 4:08 PM EST) [facility] White Blood Count 9.5 4.8 - 10.8 X10*3/uL [facility] Red Blood Count 5.20 4.20 - 5.50 X10*6/uL [facility] Hemoglobin 13.9 12.0 - 16.0 g/dl [facility] Hematocrit 43.9 37.0 - 47.0 % [facility] Mean Corpuscular Volume 84.4 80.0 - 98.0 fL [facility] Mean Corpuscular Hemoglobin 26.7(L) 27.0 - 33.0 pg [facility] Mean Corpuscular HGB Conc 31.7 31.0 - 35.0 g/dl [facility] Red Cell Distribution Width 13.8 11.0 - 16.0 % [facility] Platelet Count 317 160 - 400 X10*3/uL [facility] Mean Platelet Volume 10.4 9.4 - 12.3 fL [facility] Neutrophils Percent Auto 55.9 45 - 73 % [facility] Imm Gran Pct Auto 0.3 0.0 - 0.4 % [facility] Lymphocytes Percent Auto 32.2 20 - 40 % [facility] Monocytes Percent Auto 9.3 2 - 11 % [facility] Eosinophils Percent Auto 1.7 0 - 4 % [facility] Basophils Percent Auto 0.6 0 - 2 % [facility] NRBC Pct Auto 0.0 0.0 - 0.2 /100WBC [facility] Neutrophils Absolute Auto 5.3 2.0 - 8.3 x10*3/uL [facility] Imm Gran Abs Auto 0.03 0.00 - 0.03 X10*3/uL [facility] Lymphocytes Absolute Auto 3.1 1.2 - 4.9 X10*3/uL [facility] Monocytes Absolute Auto 0.9 0.1 - 1.2 X10*3/uL [facility] Eosinophils Absolute Auto 0.2 0.0 - 0.4 X10*3/uL [facility] Basophils Absolute Auto 0.1 0.0 - 0.2 X10*3/uL [facility] NRBC Abs Auto 0.000 0.0 - 0.012 X10*3/uL [facility] Blood Venous blood specimen / Unknown 08/04/2024 4:08 PM EST 08/04/2024 5:50 PM EST Yolande Victor MD LAB BLOOD ORDERABLES Final Result Performing Organization Address City/[facility]/ZIP Co de Phone Number [facility] [address] [place] [phone] * Partial Thromboplastin Time, Activated (APTT) (08/04/2024 4:08 PM EST) Partial Thromboplastin Time 30.4 26.0 - 36.8 SEC [facility] Comment:For information rega rding the monitoring of direct thrombininhibitors, please refer to Pharmacy. Blood Venous blood specimen / Unknown 08/04/2024 4:08 PM EST 08/04/2024 5:50 PM EST us Yolande Victor MD LAB BLOOD ORDERABLES Final Result Performing Organization Address City/[facility]/ZIP Co de Phone Number [facility] [address] [place] [phone] * Sed Rate by Modified Jonahergren (08/04/2024 4:08 PM EST) Pathologist [facility] Erythrocyte Sedimentation Rate 19 0 - 20 MM/HR [facility] Comment:Patients with polycy themia and many hemoglobin abnormalitiesmay have depressed sed rates whereas patients with anemiamay have elevated sed rates. Blood Venous blood specimen / Unknown 08/04/2024 4:08 PM EST 08/04/2024 5:50 PM EST us Yolande Victor MD LAB BLOOD ORDERABLES Final Result Performing Organization Address City/[facility]/ZIP Co de Phone Number [facility] [address] [place] [phone] * Prothrombin Time-INR (08/04/2024 4:08 PM EST) [facility] Prothrombin Time 11.7 10.9 - 12.4 SEC [facility] INTERNATIONAL NORM RATIO 1.0 0.9 - 1.1 [facility] Comment:INTERNATIONAL NORMAL IZED RATIO (INR) [...] BLOOD ORDERABLES Final Result Performing Organization Address [facility] Co de Phone Number [facility] [address] [place] [phone] * (ABNORMAL) C-reactive Protein (08/04/2024 4:08 PM EST) Pathologist [facility] C Reactive Protein 0.93(H) < or = 0.50 mg/dL [facility] Blood Venous blood specimen / Unknown 08/04/2024 4:08 PM EST 08/04/2024 5:50 PM EST us Yolande Victor MD LAB BLOOD ORDERABLES Final Result [facility] [address] [place] [address] [phone] * BIN Screen,IFA, with Reflex to Titer and Pattern (08/04/2024 4:08 PM EST) Anti Nuclear Antibody Screen NEGATIVE NEGATIVE [facility] Comment:BIN IFA is a first [...] clinicallysuspected inflammatory myopathies.AC-0: NegativeInternational Consensus on BIN Patterns(https://doi.org/10.1515/msxi-4263-7382)For additional information, please refer tohttp://education.Staples/faq/REC373(This link is being provided for informational/educational purposes only.)THIS TEST WAS PERFORMED AT:[employer] [place] [phone] PATTERSON MD BIN Titer TNP [facility] BIN Pattern TNP [facility] BIN TITER 2 (REF LAB) TNP [facility] BIN Pattern 2 [facility] B[facility] T[facility] 3 [facility] BIN PATTERN 3 [facility] Blood Venous blood specimen / Unknown 08/04/2024 4:08 PM EST 08/04/2024 5:50 PM EST us Yolande Victor MD LAB BLOOD ORDERABLES Final Result Performing Organization Address City/[facility]/ZIP Co de Phone Number [facility] [address] [place] [phone] [phone] * (ABNORMAL) Lipid Panel, Standard (08/04/2024 4:08 PM EST) Triglycerides 330(H) <150 mg/dL [facility] Comment:Desirable Triglyceri de: less than 150 mg/dLBorderline High Triglyceride 150-199 mg/dLHigh Triglyceride: 200-499 mg/dLVery High Triglyceride: greater than or equal to 5OO mg/dL Cholesterol 216(H) <200 mg/dL [facility] Comment:Desirable Cholestero l: less than 200 mg/dLBorderline High Cholesterol: 200-239 mg/dLHigh Cholesterol: greater than 239 mg/dL LDL Cholesterol Calculated 117(H) <100 mg/dL [facility] Comment:Desirable LDL: less than 100 mg/dLNear Optimal/Above Optimal LDL: 110- 129 mg/dLBorderline High LDL: 130-159 mg/dLHigh LDL: 160-189 mg/dLVery High LDL: greater than or equal to 190 mg/dL HDL Cholesterol 33(L) >40 mg/dL [facility] Comment:Desirable HDL: great er than 40 mg/dL Note: This HDL assay may give artificially low results in patients with liver disease. 08/04/2024 4:08 PM EST 08/04/2024 5:50 PM EST us Generic External Data Provider LAB BLOOD ORDERAB LES Final Result Performing Organization Address City/[facility]/ZIP Co de Phone Number [facility] [address] [place] [phone] [phone] * (ABNORMAL) Comprehensive Metabolic Panel (08/04/2024 4:08 PM EST) Sodium 144 135 - 145 mmol/L [facility] Potassium 3.8 3.3 - 5.1 mmol/L [facility] Chloride 107 96 - 108 mmol/L [facility] Carbon Dioxide 30(H) 22 - 29 mmol/L [facility] Anion Gap 11(L) 12 - 20 [facility] Urea Nitrogen (BUN) 15 9 - 16 mg/dL [facility] Creatinine, Serum 0.70 0.5 - 1.4 mg/dL [facility] Estimated Glomerular Filt Rate >60 [facility] Comment:Chronic Kidney Disea se: Estimated GFR < 60 mL/min/1.50k9Xnawid Kidney Disease: Estimated GFR < 15 mL/min/1.73m2 Glucose 89 60 - 115 mg/dL [facility] Calcium 9.4 8.4 - 10.2 mg/dL [facility] Bilirubin, Total 0.6 0.0 - 1.0 mg/dL [facility] Aspartate Amino Transferase 44(H) 5 - 31 U/L [facility] Alanine Aminotransferase 51(H) 0 - 31 U/L [facility] Total Protein 7.9 6.5 - 8.0 g/dL [facility] Albumin Level 4.1 3.5 - 5.0 g/dL [facility] Alkaline Phosphatase 131(H) 39 - 117 U/L [facility] Blood Venous blood specimen / Unknown 08/04/2024 4:08 PM EST 08/04/2024 5:50 PM EST Yolande Victor MD LAB BLOOD ORDERABLES Final Result [facility] [address] [place] [phone] * Hematoxylin and Eosin Stain (07/28/2024 10:26 AM EST) 07/28/2024 10:2 6 AM EST 07/28/2024 11:14 AM EST Narrative [facility] - 08/02/2024 3:41 PM EST ----- ------- Name: Farrah Yancey ?Age/Sex: 54/F ? : 1970 Unit#: [id number] ?? Attend Dr: Marilyn Reddy MD ?Re07/28/24 ?Status: DEP SDC ? Location: HO.SSS ?Disch: ? ----- ------- SPEC : [id number] ?RECD: 07/28/24-1113 ? STATUS: ??SOUT ? REQ NUM: [id number] ? SARTHAK: 07/28/24-6 ? SUBM DR: Marilyn Reddy MD ? ENTERED: ??07/28/24-1122 ?SP TYPE: Surgical ? OTHR DR: Matt [...] CONTINUED ON NEXT PAGE ----- ------- Name: BcFarrah ?Age/Sex: 54/F ? : 1970 Unit#: [id number] ?? Attend Dr: Marilyn Reddy MD ?Re07/28/24 ?Status: DEP SDC ? Location: HO.SSS ?Disch: ? ----- ------- SPEC : [id number] ?RECD: 07/28/24-1113 ? STATUS: ??SOUT ? REQ NUM: [id number] ? SARTHAK: 07/28/24-6 ? SUBM DR: Marilyn Reddy MD ? ENTERED: ??07/28/24-1122 ?SP TYPE: Surgical ? OTHR DR: Matt [...] microscopic examination, 2 pieces in cassette E. ??[facility] Special studies ordered and performed: Immunostain for H. pylori on B; AB/PAS stains on A, B and C Copies To: ?? Marilyn Reddy MD ?? [facility] Gastroenterology Services ?? [address] ?? [place] [address] ?? [phone] ?? Name,Matt APPIAH ?? [address] [facility] ?? [place] [address] ?? [phone] ----- ------- Signed (signature on file) Chris Hendrix MD 08/02/24 1541 ? ----- ------- ? END OF REPORT ? us Generic External Data Provider LAB BLOOD ORDERAB LES Final Result Performing Organization Address [facility] Co de Phone Number [facility] [address] [place] [address] [phone] * (ABNORMAL) Glucose, Whole Blood (07/28/2024 9:36 AM EST) Glucose, Whole Blood 133(H) 60 - 115 mg/dL [facility] Comment:METER #: [id number] 07/28/2024 9:36 AM EST 07/28/2024 9:40 AM EST us Generic External Data Provider LAB BLOOD ORDERAB LES Final Result Performing Organization Address [facility] Co de Phone Number [facility] [address] [place] [phone] * BI Mammogram Screening Tomosynthesis Bilateral (05/27/2024 1:45 PM EST) Anatomical Region Laterality Modality Breast Bilateral Mammography 05/27/2024 1:45 PM EST Narrative 06/06/2024 4:29 PM EST ? [facility] [place] ? [address] ?[place] [address] ? Mammography Report ? Signed ? Patient: Bc,Farrah ?MR#: [id number] ?? 3 ? : 1970 ?Acct:[id number] ? Age/Sex: 54 / F ?ADM Date: 12/13/24 ? Loc: HO.MAMMO ? Attending Dr: Matt Wu MD ? Ordering Physician: Matt Wu MD ?Results: 1Negative ? Date of Service: 05/27/24 ?Follow Up: 1 Year From Orig ?? inal Mammogram ? Procedure(s): MM tomosynthesis screening BI ?? Accession Number(s): [id number] ? cc: Bryce,Matt APPIAH ? EXAMINATION: ?? [...] DD/ 1345 ? TD/TT: 05/27/24 1408 ? Overhead Distribution Engineer: ? Procedure Note Donleonorinterpreter, Image - 06/06/2024 [facility] [address] [place] [address] Mammography Report Signed Patient: David Yancey#: [id number] 3 : 1970Acct:[id number] Age/Sex: 54 / FADM Date: 05/27/24 Loc: HO.MAMMO Attending Dr: Matt Wu MD Ordering Physician: Matt Wuesults: 1Negative Date of Service: 05/27/24Follow Up: 1 Year From Orig inal Mammogram Procedure(s): MM tomosynthesis screening BI Accession Number(s): [id number] cc: Matt Wu MD EXAMINATION: MM SCREENING [...] by: Jenni Woods DO 06/06/2024 04:26 PM [facility] Dictated By: Jenni Woods DO Signed By: <Electronically signed by Jenni Woods DO in OV> 06/06/24 1626 DD/ 1345 TD/TT: 05/27/24 1408 Overhead Distribution Engineer: us Matt Wu MD IMG BI PROCEDURES Final Result * HIV-1/2 Antigen and Antibodies, Fourth Generation, with Reflexes (12/21/2023 12:36 PM EDT) HIV AB/AG Nonreactive Nonreactive [facility] Comment:HIV-1 p24 Ag and/or HIV-1/HIV-2 Ab not detected.A test result that is nonreactive does not exclude thepossibility of exposure to or infection with HIV-1 and/orHIV-2. Nonreactive results in this assay for individualswith prior exposure to HIV-1 and/or HIV-2 may be due toantigen and antibody levels that are below the limit ofdetection of this assay.The Populr HIV Ag/Ab Combo assay result andsupplemental assay results should be interpreted inconjunction with the patient's clinical presentation,history and other laboratory results. If the results areinconsistent with clinical evidence, additional testing issuggested to confirm the result. Blood Venous blood specimen / Unknown 12/21/2023 12:36 PM EDT 12/21/2023 12:36 PM EDT us Matt Wu MD LAB BLOOD ORDERABLES Final Resul t [facility] [address] [place] [phone] * Albumin, Random Urine W/Creatinine (09/09/2023 12:24 PM EDT) Creatinine, Urine 120.92 mg/dL [facility] Microalbumin Urine 6.0 mg/L [facility] Microalbum Creatinine Ratio Ur 4.9 <30 ug/mg cr [facility] Comment:Albumin/Creatinine R atio Reference Ranges: Normal: < 30 ug/mg creatinine Microalbuminuria: 30 - 300 ug/mg creatinineClinical Albuminuria: > 300 ug/mg creatinine Urine (Urine, Random) 09/09/2023 12:24 PM EDT 09/09/2023 2:10 PM EDT Matt Wu MD LAB URINE ORDERABLES Final Resul t Performing Organization Address City/[facility] Co de Phone Number [facility] [address] [place] [phone] * Hepatitis Panel, General (05/26/2022 4:23 PM EST) Hepatitis A IgM Nonreactive Nonreactive [facility] Comment:IgM antibodies to TORRES V not detected; does not exclude earlyacute or recovered HAV infection. ~Hepatitis B Surface Antibody NONREACTIVE Nonreactive [facility] Comment:Nonreactive: < 8.00 mIU/mL Hepatitis B Core Antibody Nonreactive Nonreactive [facility] Hepatitis C Antibody Nonreactive Nonreactive [facility] Comment:Antibodies to HCV no t detected; does not exclude early acuteHCV infection. Hepatitis B Surface Antigen Negative Negative [facility] 05/26/2022 4:23 PM EST 05/26/2022 4:23 PM EST [facility] External Provider LAB BLO OD ORDERABLES Final Result Performing Organization Address [facility] Co de Phone Number [facility] [address] [place] [phone] * Hm Pap Smear (05/17/2021) Pap Negative for intraephithelial lesion or malignancy Negative for intraephithelial lesion or malignancy, Other HPV Not Detected Undetected, Indeterminate, Quantitative, Not Detected Historical Provider HEALTH MAINTENANCE Final Result from Last 3 Months or Most Recently Relevant to Health Maintenance Insurance [facility] C3 Care Teams Word Processing Machine Operator Relationship Specialty Start Date End Date Name, MD Matt [address] [place], [place] [id number] PCP - General Family Medicine 02/21/22 Estephanie Tan School Resource OfficerC Software Developer 11/24/23
--- OUTSIDE RECORDS SUMMARY | 2024-09-19 16:38 | XMS_ITS | Encounter Summary ---
Author Organization [employer] Address [address] [facility] [address] 7t [place] [address] Care Team Providers Care Fingerprint Classifier Name Role Phone Name, Matt APPIAH Primary Care Provider [phone] Reason for Visit * Reason Onset Date Comments triage 09/18/2022 Encounter Details Date Type Department Care Team ([facility] st Contact Info) Description 09/18/2022 Telephone [facility] MED[facility]INE [address] [place], [place] [phone] Name, MD Matt [address] [place], [place] [phone] triage Social History Tobacco Use Types Packs/Day [...] The caller accepted this outcome pt speaks malaysian documented in this encounter Plan of Treatment Upcoming Encounters Date Type Department Care Team (Late st Contact Info) Description 11/30/2024 2:30 PM EDT Office Visit [facility] [address] [place] [address] Matt Wu MD [address] [place] [address] documented as of this encounter Visit Diagnoses Not on filedocumented in this encounter Care Teams Fingerprint Classifier Relationship Specialty Start Date End Date NameMatt MD [address] [place] [address] PCP - General Family Medicine 02/21/22 Estephanie Tan Velocity ShooterInspector Watch Parts 11/24/23 documented as of this encounter
--- OUTSIDE RECORDS SUMMARY | 2024-09-19 16:38 | XMS_ITS | Encounter Summary ---
Author Organization [employer] Address [address] [facility] 7t [place] [address] Care Team Providers Care Housekeeper Cleaning Cooking Name Role Phone Name, Matt APPIAH Primary Care Provider [phone] Reason for Visit * Reason Onset Date Comments Med Refill 06/22/2024 Encounter Details Date Type Department Care Team (Late st Contact Info) Description 06/22/2024 Telephone [facility] MEDICINE [address] [place] [address] Name, MD Matt [address] [place] [address] Med Refill Social History Tobacco Use Types [...] 10 MG tablet To be sent to: [facility] - [place], [place] - [phone] - [place] - [phone] documented in this encounter Plan of Treatment Upcoming Encounters Date Type Department Care Team (Late st Contact Info) Description 11/30/2024 2:30 PM EDT Office Visit [facility] MED[facility]INE [address] [place] [address] Name, MD Matt [address] [place] [address] documented as of this encounter Visit Diagnoses Not on filedocumented in this encounter Additional Health Concerns Assessment Noted Time PHQ-9 Depression Total Score: 0 09/07/19 24 3:15 PM EDT documented as of this encounter Care Teams Housekeeper Cleaning Cooking Relationship Specialty Start Date End Date NameMatt MD [address] [place] [address] PCP - General Family Medicine 02/21/22 Estephanie Tan Trade Mark AttorneyMicrosoft Systems Engineer 11/24/23 documented as of this encounter
--- OUTSIDE RECORDS SUMMARY | 2024-09-19 16:38 | XMS_ITS | Encounter Summary ---
Author Organization [employer] Address [address] [facility] 7t [place] [address] Care Team Providers Care Document Review Attorney Name Role Phone Name, Matt APPIAH Primary Care Provider [phone] Encounter Details Date Type Department Care Team ([facility] st Contact Info) Description 08/05/2024 Orders Only [facility] MEDICINE [address] [place], [place] [phone] Yolande Knight MD [address] [place], [place] [phone] Social History Tobacco Use Types Packs/Day Years [...] Description 11/30/2024 2:30 PM EDT Office Visit [facility] MEDICINE [address] [place] [phone] Name, MD Matt [address] [place] [address] documented as of this encounter Visit Diagnoses Not on filedocumented in this encounter Additional Health Concerns Assessment Noted Time PHQ-9 Depression Total Score: 0 09/07/19 24 3:15 PM EDT documented as of this encounter Care Teams Document Review Attorney Relationship Specialty Start Date End Date NameMatt MD [address] [place] [address] PCP - General Family Medicine 02/21/22 Estephanie Tan Business Solution AnalystAmusement Park Ride Mechanic 11/24/23 documented as of this encounter
--- OUTSIDE RECORDS SUMMARY | 2024-09-19 16:38 | XMS_ITS | Encounter Summary ---
Author Organization [employer] Address [address] [facility] 7t [place] [address] Care Team Providers Care Composing Room Machinist Apprentice Name Role Phone Name, Matt APPIAH Primary Care Provider Reason for Visit * Reason Onset Date Comments Med Refill 09/24/2023 Encounter Details Date Type Department Care Team (Late st Contact Info) Description 09/24/2023 Telephone [facility] MED[facility]INE [address] [place] [address] Name, MD Matt 230 [place] [address] Med Refill Social History Tobacco Use Types [...] 10 MG tablet To be sent to: [facility] - [place], [place] - [phone] - [place] - [phone] documented in this encounter Plan of Treatment Upcoming Encounters Date Type Department Care Team (Late st Contact Info) Description 11/30/2024 2:30 PM EDT Office Visit [facility] MEDICINE [address] [place] [address] Name, MD Matt [address] [place] [address] documented as of this encounter Visit Diagnoses Not on filedocumented in this encounter Additional Health Concerns Assessment Noted Time PHQ-9 Depression Total Score: 0 09/07/19 24 3:15 PM EDT documented as of this encounter Care Teams Composing Room Machinist Apprentice Relationship Specialty Start Date End Date Name, MD Matt [address] [place] [address] PCP - General Family Medicine 02/21/22 Estephanie Tan Cloth Washer Back TenderPvc Monitor 11/24/23 documented as of this encounter
--- OUTSIDE RECORDS SUMMARY | 2024-09-19 16:38 | XMS_ITS | Encounter Summary ---
Author Organization [employer] Address [address] [facility] 7t [place] [address] Care Team Providers Care Fire Safety Director Name Role Phone Name, Matt APPIAH Primary Care Provider [phone] Reason for Visit * Reason Onset Date Comments Care Coordination 11/24/2023 [id number] a ssessment Encounter Details Date Type Department Care Team ([facility] st Contact Info) Description 11/24/2023 Telephone [facility] MED[facility]INE [address] [place] [address] Estephanie Tan, RN Care Coordination ([id number]-[id number] assessment) Social History Tobacco Use Types Packs/Day [...] the past 12 months, has t he [employer], [employer], oil or water [employer] threatened to shut off services in your [...] Member is a 53 year old female, Polish speaking. Patient is alert andoriented x 3. [...] for her psoriasis. Reports she went to [facility] on 11/04/2023 for chest pain, dizziness, work up negative, ?Patient had follow up ED appointment with PCP11/06/2023. Patient stopped taking statin muscle discomfort. This was changed to Zetia 10mg daily. Also placed on Baclophen 10mg 2 times a day. Next PCP appointment is 12/18/2023. Care management program explained and contact information given. Patient verbalizes understanding, and able to repeat back to comic writer. A follow up call will be [...] Office Visit [facility] MEDICINE [address] [place] [address] Name, MD Matt [address] [place] [address] documented as of this encounter Visit Diagnoses Not on filedocumented in this encounter Additional Health Concerns Assessment Noted Time PHQ-9 Depression Total Score: 0 09/07/19 3:15 PM EDT documented as of this encounter Care Teams Fire Safety Director Relationship Specialty Start Date End Date Name, MD Matt [address] [place] [id number] PCP - General Family Medicine 02/21/22 Estephanie Tan Health Club ManagerTruck Switcher 11/24/23 documented as of this encounter
[2024-09-19 19:09] LABS: Cholesterol 98 mg/dL (<200); HDL Cholesterol 39 mg/dL (>40); LDL Cholesterol Calculated 34 mg/dL (<100); Triglycerides 129 mg/dL (<150)
== END 2024-09-19 13:55 | disposition home or self-care (01) ==
LOC: HO.LAB 13:54
PROVIDERS: PCP Internal Medicine Geriatric Medicine; Visit Provider Nurse Practitioner Family
DX: E78.2 Mixed hyperlipidemia (principal)
CPT/HCPCS: 36415; 80061

== ENCOUNTER 2024-09-27 11:07 | Outpatient (AMB) | payer MEDICAID, SELFPAY ==
--- NOTE | 2024-09-27 11:07 | A.OFFVIS_ITS ---
Intake Visit Reasons: 6 month follow up/ CT Scan Intake Note: Patient is present for a 6 month follow up/CT scan Urology Medication:NONE Antibiotic Allergy:AMOXCILLIN,PRAVASTATIN,ROSUVASTATIN,CLARITHROMYCIN,GABAPENTIN,LEVOFLOXAC IN Blood Thinner:ASPIRIN Guide Escort Required: No Allergies acetaminophen (From Vicodin) Allergy (Intermediate, Verified 10/25/24 15:02) Palpitations, Itch amoxicillin (Prevpac) Allergy (Intermediate, Verified 10/25/24 15:02) itchy throat hydrocodone (From Vicodin) Allergy (Intermediate, Verified 10/25/24 15:02) Palpitations, Itch ibuprofen (From Motrin) Allergy (Intermediate, Verified 10/25/24 15:02) UPSET STOMACH, abdominal pain lansoprazole (Prevpac) Allergy (Intermediate, Verified 10/25/24 15:02) itchy throat morphine (MORPHINE) Allergy (Intermediate, Verified 10/25/24 15:02) PALPATATIONS, PANIC ATTACKS, nauseas,panic attack, heart palpitations omeprazole (From PRILOSEC) Allergy (Intermediate, Verified 10/25/24 15:02) ITCHY THROAT pravastatin (PRAVASTATIN) Allergy (Intermediate, Verified 10/25/24 15:02) UNKNOWN rosuvastatin (From CRESTOR) Allergy (Intermediate, Verified 10/25/24 15:02) UNKNOWN terbinafine (TERBINAFINE) Allergy (Intermediate, Verified 10/25/24 15:02) UNKNOWN atorvastatin (From LIPITOR) Allergy (Unknown, Verified 10/25/24 15:02) UNKNOWN clarithromycin (From BIAXIN) Adverse Reaction (Intermediate, Verified 10/25/24 15:02) ABD PAIN, DIARRHEA gabapentin (GABAPENTIN) Adverse Reaction (Intermediate, Verified 10/25/24 15:02) UNKNOWN, nausea, dizziness levofloxacin (LEVOFLOXACIN) Adverse Reaction (Intermediate, Verified 10/25/24 15:02) PALPITATIONS tylenol with codeine Allergy (Unknown, Uncoded 06/17/24 13:10) fast heart rate HPI Comments Details: 09/27/24-- History of Present Illness The patient is a 54-year-old female presenting with nephrolithiasis. She had a recent episode suspected to involve a kidney stone in the left kidney. A recent CT scan was performed to evaluate the presence and condition of kidney stones. The scan report returned with no stones identified, suggesting possible spontaneous passage of the stone. Historically, she has maintained a healthy dietary intake to manage her condition, including the consumption of sufficient fluids and reducing sodium intake. She has included lemon concentrate as a citrate source, which acts as a natural inhibitor for stone formation. Results - Imaging: Recent CAT scan revealed no identifiable kidney stones and indicated that both kidneys appear healthy. Discussion Notes During the telehealth visit, I reviewed the results of the recent CAT scan with the patient, which showed no current stones, suggesting the possible passage of a previously identified stone in the left kidney. I recommended continued adherence to a healthy fluid intake and dietary adjustments. Instructions were provided regarding a 24-hour urine collection to assess her dietary impact on stone formation. 04/07/24--Farrah is here for follow up kidney stones and flank pain. I have discussed renal US results. Renal US--12/24/23--Nonobstructing 4 mm left lower pole renal calculus. Question of mild caliectasis versus small parapelvic cysts. Will continue to monitor kidneys. 12/16/23--Farrah complains of LUTS, 'urine is hot' states she needs to push hard to release, and frequency. Also lower pelvic pain and flank pain. Currently sexually active. Denies any vaginal irritation. [facility] Medical History FH: breast cancer Pelvic pain Encounter for well woman exam with routine gynecological exam Umbilical hernia Scalp mass Irritable bowel syndrome with diarrhea Allergic rhinitis Lumbar degenerative disc disease Breast pain during Carpal tunnel syndrome Arthritis Morbid obesity with BMI of 40.0-44.9, adult Insomnia Diabetes mellitus Benign essential hypertension Polyarthralgia Fibromyalgia Mixed hyperlipidemia Candidiasis of mouth and esophagus Thoracic spondylosis Surgical History Hx of dilation and curettage History of endometrial ablation Hx of colonoscopy History of esophagogastroduodenoscopy (EGD) History of dermoid cyst excision History of excision of lamina of cervical vertebra for decompression of spinal cord H/O hemorrhoidectomy History of appendectomy Family History Father NIDDY (non-insulin dependent diabetes mellitus in young) Cardiovascular disease Obesity Cancer of unknown origin Colon cancer Mother CAD (coronary artery disease) NIDDY (non-insulin dependent diabetes mellitus in young) Brother Schizophrenia Degenerative disc disease H/O lymph node cancer Sister Breast cancer Colon cancer Paternal Grandmother Ovarian cancer, Onset Age: 45 Daughter Fibromyalgia Hypertension Cancer of unknown origin Ovarian cancer Other Mental health problem Social History Household Members: None Housing: Apartment Alcohol intake: never Patient Tobacco Use Status: Never used Tobacco e-Cigarette/Vaping Use: Never Used Second Hand Smoke Exposure: No service: No Current occupational status: disabled 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 Sexual orientation: Straight/Heterosexual Gender identity: Female Cognitive needs: No Hearing needs: Yes Vision needs: Yes Female Reproductive History Menstrual Age of Menarche: 11 Review of Systems Const All systems reviewed & are unremarkable except as noted in HPI and below Reports no additional complaints Eyes Reports no additional complaints ENT Reports no additional complaints Card Reports no additional complaints Resp Reports no additional complaints GI Reports no additional complaints Reports as per HPI Musc Reports no additional complaints Skin/Breast Reports system reviewed and no additional complaints, except as documented Neuro Reports no additional complaints Psych Reports no additional complaints Endo Reports no additional complaints Bethel/Lymph Reports no additional complaints Aller/Immun Reports no additional complaints Telehealth Telehealth Telehealth Platform: Telephone Location of provider rendering services: practice address Location of patient: address on file Patient Identification confirmed using: Name, : Yes Telehealth method: voice only Patient verbally consented to treatment: Yes Patient verbally consented to billing insurance company: Yes Patient informed of any privacy concerns related to visit: Yes Minutes spent on Phone/Video with Pt.: 14 Results Reviewed Results Reviewed: Date of Service: 09/14/24 CLINICAL HISTORY: N20.0 - Calculus of kidney CT abdomen and pelvis without contrast Comparison: CT/REG/DC/SR - CT ABDOMEN PELVIS WO IV CON - 05/22/23 22:33 EST Findings: No consolidation or effusion. Unremarkable gallbladder and solid organs. No urolithiasis. No bowel obstruction, pneumoperitoneum, or pneumatosis. Pelvic contents unremarkable. Appendix is not seen. No acute fracture. IMPRESSION: No acute findings. Date of Service: 12/24/23 US RETROPERITONEAL LIMITED (RENAL ONLY) CLINICAL INFORMATION: Unspecified abdominal pain. COMPARISON: CT abdomen and pelvis 05/22/2023. Ultrasound abdomen 10/05/2021 and 07/10/2021. CT abdomen pelvis with contrast 10/05/2021. TECHNIQUE: Real-time imaging of the kidneys. FINDINGS: RIGHT KIDNEY: 11.7 x 5.1 x 5.6 cm (SAG x AP x TRV). The kidney is normal in size, contour, and echogenicity. Renal cortical thickness is normal. No calculi or focal parenchymal lesions. No gross hydronephrosis. There is a question of some mild caliectasis versus small parapelvic cysts. LEFT KIDNEY: 12.3 x 4.7 x 5.3 cm (SAG x AP x TRV). The kidney is normal in size, contour, and echogenicity. Renal cortical thickness is normal. There is a lower pole 4 mm echogenic focus seen consistent with a nonobstructing calculus. No focal parenchymal lesions or gross hydronephrosis. There is a question of some mild caliectasis versus small parapelvic cysts. IMPRESSION: 1. Nonobstructing 4 mm left lower pole renal calculus. 2. Question of mild caliectasis versus small parapelvic cysts. This question could be resolved with a CT urogram if clinically important. Date of Service: 10/29/23 EXAMINATION: US PELVIS CLINICAL INFORMATION: Pelvic and perineal pain. COMPARISON: CT abdomen/pelvis 05/22/2023. TECHNIQUE: Ultrasound of the pelvis is performed using both transabdominal and transvaginal transducers along with Doppler. Transvaginal imaging is performed due to inadequate visualization transabdominally. FINDINGS: Uterus: The uterus is anteverted and measures 8.7 x 4.3 x 4.1 cm. The double wall endometrial thickness is 2 mm. The uterus is smooth in contour and has normal myometrial echogenicity. Previously seen fibroid is not visible on the current study. There are some areas of punctate echogenicity seen in the uterus. Multiple nabothian cysts are present . Adnexa: The right ovary was not visualized. The left ovary measured 2.6 x 1.6 x 1.6 cm for a volume of 3.5 mL. IMPRESSION: No significant abnormality is seen. Punctate areas of echogenicity seen in the uterus could be secondary to adenomyosis as no calcifications were seen on the fairly recent CT scan. These areas could be secondary to endometrial ablation as provided by the patient in her history. If pelvic pain persists, pelvic MRI may be worthwhile for further evaluation. Date of Service: 05/22/23 EXAMINATION: CT ABDOMEN AND PELVIS WITHOUT CONTRAST CLINICAL INFORMATION: Left flank pain COMPARISON: CT abdomen pelvis October 05, 2021 TECHNIQUE: Multidetector volumetric imaging was performed from the superior aspect of the liver through the pubic symphysis. Sagittal and coronal reformatted images were obtained on the technologist's workstation. This CT examination was performed using dose optimization techniques as appropriate, variously including the following: *Automated exposure control *Adjustment of mA and/or kV according to patient size (this includes techniques or standardized protocols for targeted exams where dose is matched to indication/reason for exam; i.e. extremities or head) *Use of iterative reconstruction technique DLP: 786 mGy-cm FINDINGS: LUNG BASES: The visualized lung bases are unremarkable. LIVER, GALLBLADDER, AND BILIARY TREE: The liver is normal in size, shape, and attenuation. No focal hepatic lesion or biliary ductal dilatation is present. The gallbladder is unremarkable with no evidence of radiopaque gallstones, gallbladder wall thickening, or obvious pericholecystic inflammatory changes. PANCREAS: Unremarkable. SPLEEN: Unremarkable. ADRENAL GLANDS: Unremarkable. KIDNEYS AND URETERS: The kidneys are normal in size, shape, and attenuation. No hydronephrosis, hydroureter, or calculi seen. No perinephric stranding. Stable 1 cm cyst midpole right kidney. No follow-up imaging is recommended for simple renal cyst. BLADDER: Unremarkable. GASTROINTESTINAL TRACT: The small and large bowel are unremarkable. The appendix is unremarkable. ABDOMINAL WALL: No significant hernia is appreciated. LYMPH NODES: Normal. VASCULAR: Unremarkable. PELVIC VISCERA: Unremarkable. OSSEOUS STRUCTURES: Unremarkable. IMPRESSION: No significant abnormality. Assessment & Plan Assessment & Plan (1) Urinary frequency: Code(s): R35.0 - Frequency of micturition Category: Medical (2) History of kidney stones: Code(s): Z87.442 - Personal history of urinary calculi Category: Medical (3) Flank pain: Code(s): R10.9 - Unspecified abdominal pain Category: Medical Plan Plan - Maintain a daily fluid intake of 48-64 ounces with water and citrate-rich fluids such as lemon concentrate. - Reduce sodium intake as part of dietary management. - 24-hour urine collection. - Continue to Monitor kidneys Patient Instructions: The patient had an opportunity to ask questions regarding treatment plan. The patient expressed understanding and agreement with the above treatment plan. The patient is aware they should contact our office by phone for worsening of their current condition or the appearance of new symptoms. Compliance is encouraged with any medications and followup testing that is ordered. It is a privilege to be allowed the opportunity to participate in the urologic care of your patient. If you have any questions or concerns regarding treatment for the above conditions please do not hesitate to contact me. The office telephone contact is [phone]. This note is constructed in part using voice recognition software. While every effort has been made to ensure accuracy manager of selection and assessment errors may have been included. Yours sincerely, Masood Meier MD Scribe Plan - Not visible on output: Patient was informed and verbally consented to the use of an ambient scribe for clinic note documentation during this visit. Coding Level of Care Code Tele Est Pt Level 3 (10355) Diagnoses Urinary frequency R35.0 History of kidney stones Z87.442 Flank pain R10.9
--- OUTSIDE RECORDS SUMMARY | 2024-09-27 13:40 | XMS_ITS | Encounter Summary ---
Author Organization [employer] Address [address] [facility] 7t [place] [address] Care Team Providers Care Special Education Instructor Name Role Phone Name, Matt APPIAH Primary Care Provider [phone] Reason for Visit * Reason Onset Date Comments Med Refill 06/22/2024 Encounter Details Date Type Department Care Team (Late st Contact Info) Description 06/22/[address] [facility] MEDICINE [address] [place] [address] Name, MD Matt [address] [place] [address] Med Refill Social History Tobacco Use Types [...] 10 MG tablet To be sent to: [facility] - [place], [place] - [phone] - [place], [place] - [phone] documented in this encounter Plan of Treatment Upcoming Encounters Date Type Department Care Team (Late st Contact Info) Description 11/30/2024 2:30 PM EDT Office Visit [facility] MEDICINE [address] [place] [address] Name, MD Matt [address] [place] [address] documented as of this encounter Visit Diagnoses Not on filedocumented in this encounter Additional Health Concerns Assessment Noted Time PHQ-9 Depression Total Score: 0 09/07/19 24 3:15 PM EDT documented as of this encounter Care Teams Special Education Instructor Relationship Specialty Start Date End Date NameMatt MD [address] [place] [address] PCP - General Family Medicine 02/21/22 Estephanie Tan Plant InspectorHeating And Ventilating Drafter 11/24/23 documented as of this encounter
--- OUTSIDE RECORDS SUMMARY | 2024-09-27 13:40 | XMS_ITS | Encounter Summary ---
Author Organization [employer] Address [address] [facility] 7t [place] [address] Care Team Providers Care Clam Shucking Machine Tender Name Role Phone Name, Matt APPIAH Primary Care Provider [phone] Encounter Details Date Type Department Care Team ([facility] st Contact Info) Description 08/05/2024 Orders Only [facility] MED[facility]INE [address] [place], [place] [phone] Yolande Knight MD [address] [place], [place] [phone] Social History Tobacco Use Types Packs/Day Years [...] 2:30 PM EDT Office Visit [facility] MED[facility]INE [address] [place] [address] Name, MD Matt [address] [place] [address] documented as of this encounter Visit Diagnoses Not on filedocumented in this encounter Additional Health Concerns Assessment Noted Time PHQ-9 Depression Total Score: 0 09/07/19 24 3:15 PM EDT documented as of this encounter Care Teams Clam Shucking Machine Tender Relationship Specialty Start Date End Date NameMatt MD [address] [place] [address] PCP - General Family Medicine 02/21/22 Estephanie Tan Director ItCradle Placer 11/24/23 documented as of this encounter
--- OUTSIDE RECORDS SUMMARY | 2024-09-27 13:40 | XMS_ITS | Encounter Summary ---
Author Organization [employer] Address [address] [facility] 7t [place] [address] Care Team Providers Care Professional Bondsman Name Role Phone Name, Matt APPIAH Primary Care Provider [phone] Reason for Visit * Reason Onset Date Comments Durable Medical Equipment 04/06/2024 Encounter Details Date Type Department Care Team (Late st Contact Info) Description 04/06/2024 Telephone [facility] [address] [place], [place] [phone] Name, MD Matt [address] [place] [address] Durable Medical Equipment Social History Tobacco Use [...] 2:30 PM EDT Office Visit [facility] [address] [place] [address] Name, MD Matt [address] [place] [address] documented as of this encounter Visit Diagnoses Not on filedocumented in this encounter Additional Health Concerns Assessment Noted Time PHQ-9 Depression Total Score: 0 09/07/19 24 3:15 PM EDT documented as of this encounter Care Teams Professional Bondsman Relationship Specialty Start Date End Date Name, MD Matt [address] [place], [place] [phone] PCP - General Family Medicine 02/21/22 Estephanie Tan Entry Level Accounting ClerkBehavioral Specialist 11/24/23 documented as of this encounter
--- OUTSIDE RECORDS SUMMARY | 2024-09-27 13:40 | XMS_ITS | Encounter Summary ---
Author Organization [employer] Address 75 [facility] 7t [place] [address] Care Team Providers Care Mining Technician Name Role Phone Name, Matt APPIAH Primary Care Provider [phone] Reason for Visit * Reason Onset Date Comments triage 09/18/2022 Encounter Details Date Type Department Care Team ([facility] st Contact Info) Description 09/18/2022 Telephone [facility] [address] [place], [place] [phone] Name, MD Matt [address] [place], [place] [phone] triage Social History Tobacco Use Types Packs/Day [...] The caller accepted this outcome pt speaks zimbabwean documented in this encounter Plan of Treatment Upcoming Encounters Date Type Department Care Team (Late st Contact Info) Description 11/30/2024 2:30 PM EDT Office Visit [facility] [address] [place] [address] Matt Wu MD [address] [place] [address] documented as of this encounter Visit Diagnoses Not on filedocumented in this encounter Care Teams Mining Technician Relationship Specialty Start Date End Date NameMatt MD [address] [place] [address] PCP - General Family Medicine 02/21/22 Estephanie Tan Public Improvement InspectorProgrammer Developer 11/24/23 documented as of this encounter
--- OUTSIDE RECORDS SUMMARY | 2024-09-27 13:40 | XMS_ITS | Encounter Summary ---
Author Organization [employer] Address 75 [facility] 7t [place] [address] Care Team Providers Care Bankruptcy Legal Assistant Name Role Phone Name, Matt APPIAH Primary Care Provider [phone] Reason for Visit * Reason Onset Date Comments Care Coordination 11/24/2023 [id number] a ssessment Encounter Details Date Type Department Care Team ([facility] st Contact Info) Description 11/24/[address] [facility] [address] [place] [address] Estephanie Tan, RN Care Coordination ([id number] assessment) Social History Tobacco Use Types Packs/Day [...] the past 12 months, has t he [employer], [employer], oil or water [employer] threatened to shut off services in your [...] Member is a 53 year old female, Ethiopian speaking. Patient is alert andoriented x 3. [...] for her psoriasis. Reports she went to [facility] on 11/04/2023 for chest pain, dizziness, work up negative, ?Patient had follow up ED appointment with PCP11/06/2023. Patient stopped taking statin muscle discomfort. This was changed to Zetia 10mg daily. Also placed on Baclophen 10mg 2 times a day. Next PCP appointment is 12/18/2023. Care management program explained and contact information given. Patient verbalizes understanding, and able to repeat back to development writer. A follow up call will be [...] Description 11/30/2024 2:30 PM EDT Office Visit [facility] [address] [place] [address] Name, MD Matt [address] [place] [address] documented as of this encounter Visit Diagnoses Not on filedocumented in this encounter Additional Health Concerns Assessment Noted Time PHQ-9 Depression Total Score: 0 09/07/19 3:15 PM EDT documented as of this encounter Care Teams Bankruptcy Legal Assistant Relationship Specialty Start Date End Date Name, MD Matt [address] [place] [address] PCP - General Family Medicine 02/21/22 Estephanie Tan Sand TechnicianResearch Epidemiologist 11/24/23 documented as of this encounter
--- OUTSIDE RECORDS SUMMARY | 2024-09-27 13:40 | XMS_ITS | Encounter Summary ---
Author Organization [employer] Address 75 [facility] 7t [place] [address] Care Team Providers Care Major Donor Coordinator Name Role Phone Name, Matt APPIAH Primary Care Provider [phone] Reason for Visit * Reason Onset Date Comments Med Refill 09/24/2023 Encounter Details Date Type Department Care Team (Late st Contact Info) Description 09/24/2023 Telephone [facility] [address] [place] [address] Name, MD Matt [address] [place] [address] Med Refill Social History Tobacco Use Types [...] 10 MG tablet To be sent to: [facility] - [place], [place] - [phone] - [place] - [phone] documented in this encounter Plan of Treatment Upcoming Encounters Date Type Department Care Team (Late st Contact Info) Description 11/30/2024 2:30 PM EDT Office Visit [facility] [address] [place] [address] Name, MD Matt [address] [place] [address] documented as of this encounter Visit Diagnoses Not on filedocumented in this encounter Additional Health Concerns Assessment Noted Time PHQ-9 Depression Total Score: 0 09/07/19 24 3:15 PM EDT documented as of this encounter Care Teams Major Donor Coordinator Relationship Specialty Start Date End Date Name, MD Matt [address] [place] [address] PCP - General Family Medicine 02/21/22 Estephanie Tan Marketing Analytics AnalystLoss Prevention Guard 11/24/23 documented as of this encounter
--- OUTSIDE RECORDS SUMMARY | 2024-09-27 13:40 | XMS_ITS | Encounter Summary ---
Author Organization [employer] Address 75 [facility] 7t [place] [address] Care Team Providers Care Blower Mechanic Name Role Phone Name, Matt APPIAH Primary Care Provider [phone] Reason for Visit * Reason Comments Med Refill Encounter Details Date Type Department Care Team ([facility] st Contact Info) Description 09/21/2024 Refill [facility] [address] [place], [place] [phone] Name, MD Matt [address] [place], [place] [phone] Insomnia, unspecified type Social History Tobacco Use [...] your housing situation today? I have chiqui sahton 12/18/[address] you li [...] Description 11/30/2024 2:30 PM EDT Office Visit [facility] [address] [place] [address] Name, MD Matt [address] [place] [address] documented as of this encounter Visit Diagnoses Diagnosis Insomnia, unspecified type documented in this encounter Additional Health Concerns Assessment Noted Time PHQ-9 Depression Total Score: 0 09/07/19 24 3:15 PM EDT documented as of this encounter Care Teams Blower Mechanic Relationship Specialty Start Date End Date Name, MD Matt [address] [place] [address] PCP - General Family Medicine 02/21/22 Estephanie Tan Truck Driver HelperData Entry Manager 11/24/23 documented as of this encounter
--- OUTSIDE RECORDS SUMMARY | 2024-09-27 13:40 | XMS_ITS | Clinical Summary ---
Author Organization [address] [facility] Address [address] [place] [address] Phone Care Team Providers Care Carton Forming Machine Adjuster Name Role Phone Name, Matt APPIAH Primary Care Provider [phone] Allergies Active Allergy Reactions Criticality Noted Date [...] of discharge. Morbid obesity with BMI of 4 0.0-44.9, adult ([facility] V24, [facility] V28) 03/16/2024 Chronic low back pain with sciatica 03/16/2024 Class 2 obesity 11/06/2023 Premenstrual symptom 05/23/2019 Kari esophagitis ([facility] V24, [facility] V28) 0 10/08/2018 Overview (03/16/2024): F/u [place] [facility] Helicobacter pylori (H. pylori) infection 2018 Overview (03/16/2024): F/u [place] [facility] Seborrheic dermatitis 06/25/2018 Scalp psoriasis 04/13/2018 Hemorrhoids 06/04/2017 Overview (03/16/2024): Internal & external Nonalcoholic steatohepatitis (HURD) 06/04/2017 Insomnia 08/23/2015 Carpal tunnel syndrome 12/25/2014 Overview (03/16/2024): Bilateral - negative EMG at [place] 2014 Migraine 12/25/2014 Old [place] (myocardial infarction) 12/25/2014 Overview (03/16/2024): 1998/ Dr Perez Osteoarthritis 12/25/2014 Overview (03/16/2024): Hands, knees, spine Tricuspid regurgitation 12/25/2014 Overview (03/16/2024): Mild tricuspid / mild pulmonic Fibromyalgia 10/16/2014 Psoriasis 10/16/2014 Asthma 08/07/2011 GERD (gastroesophageal reflux disease) 2 Overview (03/16/2024): H/o H.pylori x 3 Hyperlipidemia 08/07/2011 Hypertension 08/07/2011 Overview (03/16/2024): Follows with cardiology Type 2 diabetes mellitus wit h neurological manifestations, controlled ([facility] V24, [facility] V28) 08/07/2011 Encounters Date Type Department Care Team Description 09/26/2024 2:30 PM EDT Office Visit Orthopedic Surgery - [address] [address] Smooth Sharp, DPM Dermatophytosis of nail (Primary Dx); Tinea pedis of both feet; Ingrowing nail; Diabetic mononeuropathy simplex ([facility] V24, [facility] V28) from Last 3 Months Immunizations Name Administration Dates Next Due Hepatitis B (Zekufmk-Z-Mqahz , Recombivax HB-Adult) 19yo and older 03/13/2009,02/16/2008,01/11/2008 [...] diabetes mellitus wit h neurological manifestations, controlled ([facility]/HCC V24, [facility] V28) 08/07/2011 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, controlled ([facility]) Tricuspid regurgitation 12/25/2014 DX:Tricu spid regurgitation; COMMENT: Mild tricuspid / mild pulmonic Old [place] (myocardial infarction) 12/25/2014 D X:Old TN (myocardial infarction); COMMENT: 1998/ Dr Perez Hyperlipidemia [...] DX:Hemorrhoids; COMMENT: Internal & external Kari esophagitis (CMS/HCC V24, [facility]/HCC V28) 10/08/2018 DX:Kari esophagitis ([facility]) ; COMMENT: F/u [facility] Helicobacter pylori (H. [...] Care Team (Late st Contact Info) Description 12/26/2024 1:45 PM EDT Office Visit Orthopedic Surgery - [place] [address] [address] Smooth Shrap, DPM [address] [address] Health Maintenance Due Date Last Done Comments Breast Cancer Screening 1970 Diabetes: Annual Foot Exam 1980 Diabetes: Annual Retina Eye Exam 1980 Pneumococcal Vaccine: 50+ Years (1 of 2 - PCV) 1989 Pneumococcal Vaccine: Pediatrics (0 to 5 Years) and At-Risk Patients (6 to 64 Years) (1 of 2 - PCV) 1989 Zoster Vaccines (1 of 2) 2020 Hepatitis C Screening 05/17/2022 Social Influencers of Health Screening 05/17/2022 Diabetes: Annual Urine Albumin-Creatinine Ratio (uACR) 05/27/2022 02/18/2019 COVID-19 Vaccine ( season) 2024 01/18/2021, 12/21/2020 Cervical Cancer Screening: HPV 05/19/2024 05/19/2019 Depression Screening 09/06/2024 09/07/2023 Influenza Vaccine (Season Ended) 2025 Diabetes: Blood Sugar Control Test (HGBA1C) 02/15/2025 08/15/2024, 03/22/2024, 08/27/2019 Diabetes: Annual GFR (Glomerular Filtration Rate) 08/04/2025 08/04/2024, 05/31/2024, 08/27/2019 Hypertension/CHF/CAD Annual BMP Blood Test 08/04/2025 08/04/2024, 05/31/2024, 08/27/2019 Colorectal Cancer Screening: Colonoscopy 09/23/2025 09/24/2015 DTaP,Tdap,and Td Vaccines (3 - Td or Tdap) 05/11/2027 05/11/2017, 03/18/2007 Cholesterol Screening (Lipid Panel) 09/19/2029 09/19/2024, 08/04/2024, 06/17/2024, Additional history exists Hepatitis B Vaccines Completed 03/13/2009, 02/16/2008, 01/11/2008 [...] 20 months Aged Out No longer eligible based on patient's age to complete this topic Varicella Vaccines Aged Out No longer eligible based on patient's age to complete this topic Procedures Procedure Name Priority Date/Time Associated Diagnosis Comments ANNUAL BMP BLOOD TEST Routine 08/27/2019 HEMOGLOBIN A1C Routine 08/27/2019 HM HPV Routine 05/19/2019 URINE ALBUMIN CREATININE RATIO Routine 02/18/2019 LIPID PANEL Routine 02/18/2019 COLONOSCOPY Routine 09/24/2015 from Last 3 Months or Most Recently Relevant to Health Maintenance Results * Annual BMP Blood Test (08/27/2019) Pathologist [facility] Annual BMP Blood Test abstracted Result [facility] Provider HEALTH MAINTENANCE Final Result * (ABNORMAL) Hemoglobin A1c (08/27/2019) [facility] Hemoglobin A1C 6.6(A) <=6.5 % Blood Venous blood specimen / Unknown Result [facility] Provider LAB BLOOD ORDERABLES Behzad l Result * Cervical Cancer Screening: HPV (05/19/2019) [facility] Cervical Cancer Screening: HPV negative, abstracted Result [facility] HEALTH MAINTENANCE Final Result * Urine Albumin Creatinine Ratio (02/18/2019) [facility] Urine Albumin Creatinine Ratio abstracted Result [facility] HEALTH MAINTENANCE Final Result * (ABNORMAL) Lipid panel (02/18/2019) [facility] LDL/HDL Ratio 7(A) 0 - 4 Triglycerides 443(A) 0 - 150 mg/dL Cholesterol 185 0 - 200 mg/dL HDL 27(A) >=40 mg/dL LDL Cholesterol 70 0 - 100 mg/dL Blood Venous blood specimen / Unknown Result [facility] Provider LAB BLOOD ORDERABLES Behzad l Result * Colonoscopy (09/24/2015) [facility] Colonoscopy no interpretation , abstracted Anatomical Region Laterality Modality Other Result [facility] Provider HEALTH MAINTENANCE Final Result from Last 3 Months or Most Recently Relevant to Health Maintenance Insurance MEDICAID - [place] Care Teams Carton Forming Machine Adjuster Relationship Specialty Start Date End Date Name, MD Matt [address] [place], [place] PCP - General 07/08/22
--- OUTSIDE RECORDS SUMMARY | 2024-09-27 13:40 | XMS_ITS | Data Portability ---
Author Organization [place] - [facility], All[facility] Address [address] [place] [address] Care Team Providers Care Hospital Housekeeper Name Role Phone YOLANDA VANEGAS Referring Provider [...] for amplification. Recommend she follow up with [facility], and discussed hearing aids would help [...] Organization Details Recorded Time Dizziness and giddiness [id number] Active 2017 Dizziness and giddiness ; Note: Date Diagnosed : 02/11/2018 2:44 PM (R42) Not Available [facility] 4 03:04:54 Sensorine ural hearing loss of bilateral ears 818399952 Active 2020 Sensorine ural hearing loss, bilateral ; Note: Date Diagnosed : 01/10/2021 2:50 PM (H90.3) Not Available [facility] 4 03:04:55 Headache 92669940 Active 2017 Headache, unspecifi ed; Note: Changed from R51 to R51.9 (07/19/2021 2:06 PM) , Date Diagnosed : 02/11/2018 2:44 PM (R51) Not Available [facility] 4 03:04:55 Migraine 07285873 Active 2020 Other migraine, not intractab le, without status migrainos us; Note: Date Diagnosed : 1 4:10 PM (G43.809) Not Available [facility] 4 03:04:56 Gastroeso phageal reflux disease without esophagit is 808410313 Active 2017 Gastro-es ophageal reflux disease without esophagit is; Note: Date Diagnosed : 03/05/2018 1:19 PM (K21.9) Not Available [facility] 4 03:04:53 Cough 39863828 Active 2017 Cough; Note: Date Diagnosed : 03/05/2018 1:16 PM (R05) Not Available [facility] 4 03:04:55 Referred otalgia of left ear [id number] 03599 Active 2023 MARISSA CARCAMO PA-C [address] [facility] [place] [address], [facility] [place], [phone] , [facility] 4 12:01:45 Bilateral tinnitus 36090945088 02 Active 2023 MARISSA CARCAMO PA-C [address] [facility] [place],[facility] 100, [facility] [place], [address] , [place] [facility] 4 12:01:52 Problem Notes None recorded. Procedures Surgical History Date Name Laterality Status Provider Name and Address Organization Details Recorded Time 024 Air & Speech Audio with Tymps (55188, 88890 & 39500) completed SHAHLA SLOAN [address] [facility] 100, [place], [address], [facility] - [facility] 05/27/2024 11:03:21 hemorrhoidectomy completed Mica Horner [place] [facility] 05/27/2024 10:56:11 Appendectomy completed Mica Horner [place] [facility] 05/27/2024 10:56:15 Imaging Results Imaging Date [...] Name and Address Organization Details Recorded Time 92183 gabapenti n medicatio n other Not available Not available 10/27/2023 75971 RxNorm React ion: unkno wn, unspe cifie d;; Not Available [facility] 4 00:48:25 66854 terbinafi ne medicatio n other Not available Not available 10/27/2023 58875 RxNorm React ion: unkno wn, unspe cifie d;; Not Available [facility] 4 00:48:25 23514 Lipitor medicatio n other Not available Not available 10/27/2023 97620 5 RxNorm React ion: unkno wn, unspe cifie d;; Not Available [facility] 4 00:48:25 98246 Crestor medicatio n other Not available Not available 10/27/2023 30567 4 RxNorm React ion: unkno wn, unspe cifie d;; Not Available [facility] 4 00:48:34 67491 sodium medicatio n other Not available Not available 10/27/2023 9853 RxNorm React ion: unkno wn, unspe cifie d;; Not Available [facility] 4 00:48:41 82333 Biaxin medicatio n other Not available Not available 10/27/2023 05989 9 RxNorm React ion: unkno wn, unspe cifie d;; Not Available [facility] 4 00:48:42 83496 Motrin medicatio n other Not available Not available 10/27/2023 39644 8 RxNorm React ion: unkno wn, unspe cifie d;; Not Available [facility] 4 00:48:53 79694 morphine medicatio n other Not available Not available 10/27/2023 7052 RxNorm React ion: unkno wn, unspe cifie d;; Not Available [facility] 4 00:48:59 91007 acetamino phen / hydrocodo ne medicatio n other Not available Not available 10/27/2023 44718 2 RxNorm React ion: unkno wn, unspe cifie d;; Not Available [facility] 4 00:49:06 80211 pravastat in medicatio n other Not available Not available 10/27/2023 21508 RxNorm React ion: unkno wn, unspe cifie d;; Not Available [facility] 4 00:49:07 Medications Name Sig Start Date Stop Date Status Note LastModified by Organization Details LastModified Time nystatin 100,000 unit/mL oral suspensio n 05/27 completed Medicati on ID: [id number] D uration Value: 30 Brand Name: nystatin [...] Alcohol Pads 05/27 completed Medicati on ID: [id number] D uration Value: 30 Brand Name: Alcohol [...] mg tablet 05/27 completed Medicati on ID: 945187 D uration Value: 30 Brand Name: carvedil [...] mg tablet 05/27 completed Medicati on ID: [id number] D uration Value: 28 Brand Name: zolpidem [...] ating tablet 05/27 completed Medicati on ID: [id number] D uration Value: 30 Brand Name: bree [...] elayed release 05/27 completed Medicati on ID: [id number] D uration Value: 30 Brand Name: donald [...] unit) capsule 2017 active Medicati on ID: [id number] D uration Value: 30 Brand Name: D3 Send Method: E-Prescr ibed Sub s Allowed: subs OK Speci al Instruct ion: TAKE ONE CAPSULE BY MOUTH DAILY Me dication GenericN louie: D3-2000 Not Available Not Available Not Available Easy Comfort Lancets 30 gauge 05/27 completed Medicati on ID: [id number] D uration Value: 30 Brand Name: Easy [...] SNOMED-CT Code Diagnosis ICD10 Code Diagnosis Note [id number] MIGUEL NATH MD [facility] [address] [address] 05/27/2024 10:49:53 05/27/2024 11:53:18 Sensorineural hearing loss of bilateral ears [id number] H90.3 Right Ear:Normal hearing through 2K Hz sloping to a profound SNHL with good speech discrimina tion.Type A tympanogra m.Left Ear:Normal hearing through 2K Hz sloping to a profound SNHL with good speech discrimina tion.Type A tympanogra m. Referred o talgia of left ear [id number] 493443 H92.02 Bilateral tinnitus 60239 03498 102 H93.13 Health Concerns Section Related Observation LastModified by Organization Detai ls LastModified Time None Recorded Concern Status LastModified by Organization Details LastModified Time None Recorded Advance Directives Directive None Recorded Payers Encounter Date Sequence Insurance Name Policy Number Policy Juárez Covered Member ID Juárez Member ID Guarantor Name 05/27/2024 1 [place] [facility] Farrah Yancey [id number] Farrah Yancey Notes Date Note Type Note [...] caused pruritus. The amplification was dispensed by heater engineer helper in [place]. Denies otorrhea or dizziness. Denies prior history of ear infections or ear surgeries. No history of loud noise exposure. No Qtip use. History of migraine. MIGUEL NATH MD [address] [place] [address], [phone], [place] - [facility] 05/28/2024 13:57:56 OBGyn Episode No OBEpisode recorded.
--- OUTSIDE RECORDS SUMMARY | 2024-09-27 13:40 | XMS_ITS | Encounter Summary ---
Author Organization [employer] Address 75 [facility] 7t [place] [address] Care Team Providers Care Floor Steward/Stewardess Name Role Phone Name, Matt APPIAH Primary Care Provider [phone] Reason for Visit * Reason Onset Date Comments Med Refill 01/21/2024 Encounter Details Date Type Department Care Team (Late st Contact Info) Description 01/21/2024 Telephone [facility] [address] [place] [address] Name, MD Matt [address] [place] [address] Med Refill Social History Tobacco Use Types [...] 10 MG tablet To be sent to: [facility] - [place], [place] - [phone] - [place] - [address] documented in this encounter Plan of Treatment Upcoming Encounters Date Type Department Care Team (Late st Contact Info) Description 11/30/2024 2:30 PM EDT Office Visit [facility] [address] [place] [address] Name, MD Matt [address] [place] [address] documented as of this encounter Visit Diagnoses Not on filedocumented in this encounter Additional Health Concerns Assessment Noted Time PHQ-9 Depression Total Score: 0 09/07/19 3:15 PM EDT documented as of this encounter Care Teams Floor Steward/Stewardess Relationship Specialty Start Date End Date Name, MD Matt [address] [place] [address] PCP - General Family Medicine 02/21/22 Estephanie Tan Websphere DeveloperMedical Communication Specialist 11/24/23 documented as of this encounter
--- OUTSIDE RECORDS SUMMARY | 2024-09-27 13:40 | XMS_ITS | Encounter Summary ---
Author Organization [facility] Address [address] [place] [address] Care Team Providers Care Skid Worker Name Role Phone Name, Matt APPIAH Primary Care Provider [phone] Reason for Visit * Reason Comments Follow-up Fungus Encounter Details Date Type Department Care Team ([facility] st Contact Info) Description 09/26/2024 2:30 PM EDT Office Visit Orthopedic Surgery - [place] [address] [facility] [address] [place] [address] [phone] Smooth Sharp DPM [address] [phone] Dermatophytosis of nail (Primary Dx); Tinea pedis of both feet; Ingrowing nail; Diabetic mononeuropathy simplex ([facility] V24, [facility] V28) Social History Tobacco Use Types Packs/Day Years Used Date Smoking Tobacco: Never Smokeless Tobacco: Never Alcohol Use Standard Drinks/Week Comments No 0 (1 standard drink = 0.6 oz pur e alcohol) Comments Unknown Sex and Gender Information Value Date Recorded Sex Assigned at Not on file Legal Sex Female 6:18 PM EST Gender Identity Not on file Sexual Orientation Not on file documented as of this encounter Progress Notes * Smooth Sharp DPM - 09/26/2024 2:30 PM EDT S Patient presents today complaining of pain in her feet she is gets thick fungal nails and skin thatbothers her constantly she was started on Lamisil but had allergic response has tried different topicals with no improvement has been using the soap and topical medication states has been pretty frustrated that he like to know what other options are Presents today with her present patient is a type II diabetic endorses occasional numbness and tingling to her feet corporate director of pharmacy utilized today ID number [id number] Last PCP visit 08/15/2024 Matt Wu MD ROS: GENERAL: Pt denies nausea, fever, vomiting, [...] Asthma Carpal tunnel syndrome Fibromyalgia Kari esophagitis ([facility] V24, [facility] V28) GERD (gastroesophageal reflux disease) Helicobacter pylori (H. pylori) infection Hemorrhoids Hyperlipidemia Hypertension Insomnia Migraine Nonalcoholic steatohepatitis (HURD) [place] (myocardial infarction) Osteoarthritis Premenstrual symptom Psoriasis Tricuspid regurgitation Type 2 diabetes mellitus with neurological manifestations, controlled ([facility] V24, [facility] V28) Morbid obesity with BMI of 40.0-44.9, adult ([facility] V24, [facility] V28) Chronic low back pain with sciatica Dysphagia Seborrheic dermatitis Scalp psoriasis Class 2 obesity SOCIAL HISTORY: Social History Tobacco Use Smoking status: Never Smokeless tobacco: Never Substance Use Topics Alcohol use: No ACTIVE MEDICATIONS: No outpatient medications have been marked as taking for the 09/26/24 encounter (Office Visit) with Smooth Sharp DPM. ALLERGIES: Allergies Allergen Reactions Acetaminophen Other Reaction(s): [...] No muscle atrophy. DERMATOLOGICAL:. Toenails: Left Toenail(s) 1: Crumbling upon debridement, subungual debris, discoloration, dystrophy, elongation, mycotic appearance, onychomycosis, pain and thickening. Right Toenail(s) 1: Crumbling upon debridement, subungual debris, discoloration, dystrophy, elongation, mycotic appearance, onychomycosis, pain and thickening. Annular scaling bilateral feet moccasin distribution Skin thinning texture shiny appearance diffuse hyperpigmentation bilaterally pedal hair decreased BIOMECHANICS: Ankle ROM WNL, STJ ROM wnl, MTJ ROM wnl, 1st MPJ ROM wnl. IMAGING: IMPRESSION: 1. Dermatophytosis of nail 2. Tinea pedis of both feet 3. Ingrowing nail PLAN: Pt was seen and examined, history reviewed. Medications reviewed patient is already on ciclopirox soaps creams Clotrimazole continue with Hibiclens dispensed from clinic to be used in the shower Fluconazole was discussed as an alternative to Lamisil given allergic response patient states is very afraid of medications by mouth Minor surgical procedure with patient specific risk factors to begin diabetic of nail removal with matrixectomy was discussed and reviewed versus nail removal discussed with patient risks of nail procedure including scar tissue formation reoccurrence loss of more nail deformity cosmetic changes that are undesirable Patient will think about her surgical options Follow-up in 1 months Debridement of mycotic toenails 2: Verbal informed consent was obtained from the patient. Less than6 nails were aseptically debrided in thickness and length with nail nippers Smooth Sharp DPM documented in this encounter Plan of Treatment Upcoming Encounters Date Type Department Care Team (Late st Contact Info) Description 12/26/2024 1:45 PM EDT Office Visit Orthopedic Surgery - [place] [address] [phone] Smooth Sharp, DPM [address] [phone] documented as of this encounter Visit Diagnoses Diagnosis Dermatophytosis of nail- Primary Tinea pedis of both feet Ingrowing nail Diabetic mononeuropathy simplex (CMS/HCC V24, CMS/HCC V28) Type II or unspecified type diabetes mellitus with neurological manifestations, not stated as uncontrolled documented in this encounter Care Teams Skid Worker Relationship Specialty Start Date End Date Name, MD Matt [address] [place], [place] PCP - General 07/08/22 documented as of this encounter
--- OUTSIDE RECORDS SUMMARY | 2024-09-27 13:40 | XMS_ITS | Clinical Summary ---
Author Organization [employer] Address [address] [facility] [facility] [address] [place] [address] Care Team Providers Care In Service Coordinator Name Role Phone Name, Matt APPIAH Primary Care Provider [phone] Allergies Active Allergy Reactions Criticality Noted Date [...] 08/25/[address] Laboy at [facility] Class 2 obesity 11/06/2023 CLARA (generalized anxiety [...] agreed to referral. She requested referral in [facility]. Provided education around integrated medicine and the options of follow up BE's as needed. Provided contact information should questions or concerns arise. ?? Plan: Farrah will engage in effective coping mechanisms to manage sxs. Referral will be placed for Ind Therapy and Psychiatrist at [facility], per her request. 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 Hemorrhoids 06/04/2017 Overview (11/06/2023): Internal & external Nonalcoholic steatohepatitis (HURD) 06/04/2017 Insomnia 08/23/2015 Carpal tunnel syndrome 12/25/2014 Overview (01/01/2023): Bilateral - negative EMG at [place] 2014 Osteoarthritis 12/25/2014 Overview (01/01/2023): Hands, knees, [...] reflux disease) 2 Overview (01/01/2023): F/u [place] [facility] [place]/o H.pylori x 3 Resolved Problems Problem [...] callus 04/13/2018 07/08/2023 Onychomycosis 03/23/2018 07/08/2023 Old [place] (myocardial infarction) 12/25/2014 11/06/2023 Overview (01/01/2023): 1998/ Dr Perez 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 07/08/2023 Other psoriasis and similar disorders 12/03/2011 07/08/2023 Encounters Date Type Department Care Team Description 09/21/2024 Refill [facility] [address] [place] [address] Name, MD Matt Insomnia, unspecified type 09/19/2024 Orders Only GENERIC EXTERNAL DATA DEPARTMENT Provider, Generic External Data 09/09/2024 Orders Only GENERIC EXTERNAL DATA DEPARTMENT Provider, Generic External Data 08/18/2024 Refill [facility] [address] [place] [address] Name, MD Matt Insomnia, unspecified type 08/15/2024 2:30 PM EST Office Visit [facility] [address] [place] [phone] Matt Wu MD Type 2 diabetes mellitus with neurological manifestations, controlled ([facility]) (Primary Dx); Hypertension, unspecified type; High cholesterol; Vaccination refused by patient 08/15/2024 Travel 08/10/2024 Telephone [facility] [address] [place] [address] Matt Wu MD chartprep 08/08/2024 Telephone [facility] [address] [place] [phone] Yolande Knight MD 08/05/2024 Orders Only [facility] [address] [place] [phone] Yolande Knight MD 08/04/2024 3:20 PM EST Office Visit [facility] [address] [place] [phone] Yolande Knight MD Rash (Primary Dx); Primary hypertension 08/04/2024 Orders Only GENERIC EXTERNAL DATA DEPARTMENT Provider, Generic External Data 08/04/2024 Travel 08/04/[address] [address] Matt Wu MD Nurse Triage 07/28/2024 Orders Only GENERIC EXTERNAL DATA DEPARTMENT Provider, Generic External Data 07/22/[address] [address] Michelle Han MD Insomnia, unspecified type from Last 3 [...] Description 11/30/2024 2:30 PM EDT Office Visit [facility] [address] [place] [address] Name, MD Matt [address] [place] [address] Health Maintenance Due Date Last Done Comments [...] 05/27/2025 05/27/2024, 04/16, 05/04/2023, Additional history exists Tobacco Screening 08/04/2025 08/04/2024 Lipid Panel 09/19/2025 09/19/2024, 07/17, 06/17/2024, Additional history exists Cervical Cancer Screening 05/17/2026 HPV/Cotest 05/17/2026 05/17/2021 [...] Associated Diagnosis Comments LIPID PANEL, STANDARD Routine 09/19/2024 2:[address] ABDOMEN PELVIS WO CONTRAST Routine 09/15/2024 [...] Maintenance Results * (ABNORMAL) Lipid Panel, Standard (09/19/2024 2:03 PM EDT) Only the most recent of2 resultswithin the time period is included. Triglycerides 129 <150 mg/dL [facility] Comment:Desirable Triglyceri de: less than 150 mg/dLBorderline High Triglyceride 150-199 mg/dLHigh Triglyceride: 200-499 mg/dLVery High Triglyceride: greater than or equal to 5OO mg/dL Cholesterol 98 <200 mg/dL [facility] Comment:Desirable Cholestero l: less than 200 mg/dLBorderline High Cholesterol: 200-239 mg/dLHigh Cholesterol: greater than 239 mg/dL LDL Cholesterol Calculated 34 <100 mg/dL [facility] Comment:Desirable LDL: less than 100 mg/dLNear Optimal/Above Optimal LDL: 110- 129 mg/dLBorderline High LDL: 130-159 mg/dLHigh LDL: 160-189 mg/dLVery High LDL: greater than or equal to 190 mg/dL HDL Cholesterol 39(L) >40 mg/dL [facility] Comment:Desirable HDL: great er than 40 mg/dL Note: This HDL assay may give artificially low results in patients with liver disease. 09/19/2024 2:03 PM EDT 09/19/2024 2:03 PM EDT us Generic External Data Provider LAB BLOOD ORDERAB LES Final Result [facility] [address] [place] [address] [phone] * CT Abdomen Pelvis w/o Contrast (09/15/2024 4:48 PM EDT) Anatomical Region Laterality Modality Body, Pelvis, Abdomen Computed T omography 09/15/2024 4:48 PM EDT Narrative 09/15/2024 4:49 PM EDT ? [facility] [facility]. ?[place] [address] ? CT Scan Report ? Signed ? Patient: Bc,Farrah ?MR#: [id number] ?? 3 ? : 1970 ?Acct:[id number] ? Age/Sex: 54 / F ?ADM Date: 04/02/25 ? Loc: HO.CT ? Attending Dr: Masood Meier MD ? Ordering Physician: Masood Meier MD ?? Date of Service: 09/14/24 ?? Procedure(s): CT abdomen pelvis wo IV con ?? Accession Number(s): [id number] ? cc: Masood Meier MD; Name,Matt APPIAH ? Report Number: ?? [id number]: Total DLP = ??934.00 mGy-cm ? CLINICAL HISTORY: N20.0 - Calculus of kidney ? CT abdomen and pelvis without contrast ? Comparison: CT/REG/NE/SR - CT ABDOMEN PELVIS WO IV CON [...] in OV> ? 09/15/24 1649 ? DD/ ? TD/TT: 09/15/248 ? [employer]her: ? Procedure Note Divya, Lenore - 09/15/[address] [place] [address] [address] Scan Report Signed Patient: David Yancey#: [id number] 3 : 1970Acct:[id number] Age/Sex: 54 / FADM Date: 09/14/24 Loc: HO.CT Attending Dr: Masood Meier MD Ordering Physician: Masood Meier MD Date of Service: 09/14/24 Procedure(s): CT abdomen pelvis wo IV con Accession Number(s): [id number] cc: Masood Meier MD; Name,Matt APPIAH Report Number: [id number]: Total DLP = 934.00 mGy-cm CLINICAL HISTORY: N20.0 - Calculus of kidney CT abdomen and pelvis without contrast Comparison: CT/REG/NE/SR - CT ABDOMEN PELVIS WO IV CON [...] 09/15/24 1649 DD/ 1648 TD/TT: 09/15/24 1648 [employer]her: [facility] External Provider IMG CT PROCEDURES Final Result * Helicobacter pylori, Urea Breath Test (09/09/2024 1:40 PM EDT) H. pylori Breath Test Positive Negative [facility] Comment:Antimicrobials, prot on pump inhibitors and bismuthpreparations are known to suppress H. pylori. Ingestingthese medications within two weeks prior to performing thebreath test may produce negative test results. A positiveresult is still clinically valid. 09/09/2024 1:40 PM EDT 09/09/2024 2:19 PM EDT Generic External Data Provider LAB BLOOD ORDERAB LES Final Result [facility] [address] [place] [phone] * (ABNORMAL) POCT HGB A1C (08/15/2024 3:04 PM EST) Hemoglobin A1C 6.7(A) 4.0 - 6.0 % QC Media Lot # [id number] Lot# Expiration Date [id number] Blood 08/15/2024 3:04 PM EST Matt Wu MD POINT OF CARE TEST ENTER/EDIT OR DERABLES Final Result * POCT Glucose (08/15/2024 3:03 PM EST) Pathologist [facility] Glucose Blood, POC 119 60 - 200 mg/dL QC Media Lot # [id number] Lot# Expiration Date 82,100 Blood Capillary blood specimen / Unknown 08/15/2024 3:03 PM EST us Matt Name MD POINT OF CARE TEST ENTER/EDIT OR DERABLES Final Result * (ABNORMAL) CBC auto differential (08/04/2024 4:08 PM EST) [facility] White Blood Count 9.5 4.8 - 10.8 X10*3/uL [facility] Red Blood Count 5.20 4.20 - 5.50 X10*6/uL [facility] Hemoglobin 13.9 12.0 - 16.0 g/dl [facility] Hematocrit 43.9 37.0 - 47.0 % [facility] Mean Corpuscular Volume 84.4 80.0 - 98.0 fL [facility] Mean Corpuscular Hemoglobin 26.7(L) 27.0 - 33.0 pg [facility] Mean Corpuscular HGB Conc 31.7 31.0 - 35.0 g/dl [facility] Red Cell Distribution Width 13.8 11.0 - 16.0 % [facility] Platelet Count 317 160 - 400 X10*3/uL [facility] Mean Platelet Volume 10.4 9.4 - 12.3 fL [facility] Neutrophils Percent Auto 55.9 45 - 73 % [facility] Imm Gran Pct Auto 0.3 0.0 - 0.4 % [facility] Lymphocytes Percent Auto 32.2 20 - 40 % [facility] Monocytes Percent Auto 9.3 2 - 11 % [facility] Eosinophils Percent Auto 1.7 0 - 4 % [facility] Basophils Percent Auto 0.6 0 - 2 % [facility] NRBC Pct Auto 0.0 0.0 - 0.2 /100WBC [facility] Neutrophils Absolute Auto 5.3 2.0 - 8.3 x10*3/uL [facility] Imm Gran Abs Auto 0.03 0.00 - 0.03 X10*3/uL [facility] Lymphocytes Absolute Auto 3.1 1.2 - 4.9 X10*3/uL [facility] Monocytes Absolute Auto 0.9 0.1 - 1.2 X10*3/uL [facility] Eosinophils Absolute Auto 0.2 0.0 - 0.4 X10*3/uL [facility] Basophils Absolute Auto 0.1 0.0 - 0.2 X10*3/uL [facility] NRBC Abs Auto 0.000 0.0 - 0.012 X10*3/uL [facility] Blood Venous blood specimen / Unknown 08/04/2024 4:08 PM EST 08/04/2024 5:50 PM EST us Yolande Victor MD LAB BLOOD ORDERABLES Final Result Performing Organization Address City/[facility]/ZIP Co de Phone Number [facility] [address] [place] [phone] * Partial Thromboplastin Time, Activated (APTT) (08/04/2024 4:08 PM EST) [facility] Partial Thromboplastin Time 30.4 26.0 - 36.8 SEC [facility] Comment:For information rega rding the monitoring of direct thrombininhibitors, please refer to Pharmacy. Blood Venous blood specimen / Unknown 08/04/2024 4:08 PM EST 08/04/2024 5:50 PM EST us Yolande Victor MD LAB BLOOD ORDERABLES Final Result Performing Organization Address [facility]/ZIP Co de Phone Number [facility] [address] [place] [address] [phone] * Sed Rate by Modified Jazlyn (08/04/2024 4:08 PM EST) Pathologist [facility] Erythrocyte Sedimentation Rate 19 0 - 20 MM/HR [facility] Comment:Patients with polycy themia and many hemoglobin abnormalitiesmay have depressed sed rates whereas patients with anemiamay have elevated sed rates. Blood Venous blood specimen / Unknown 08/04/2024 4:08 PM EST 08/04/2024 5:50 PM EST Yolande Victor MD LAB BLOOD ORDERABLES Final Result Performing Organization Address [facility] Co de Phone Number [facility] [address] [place] [phone] * Prothrombin Time-INR (08/04/2024 4:08 PM EST) Prothrombin Time 11.7 10.9 - 12.4 SEC [facility] INTERNATIONAL NORM RATIO 1.0 0.9 - 1.1 [facility] Comment:INTERNATIONAL NORMAL IZED RATIO (INR) [...] BLOOD ORDERABLES Final Result Performing Organization Address [facility] Co de Phone Number [facility] [address] [place] [phone] * (ABNORMAL) C-reactive Protein (08/04/2024 4:08 PM EST) C Reactive Protein 0.93(H) < or = 0.50 mg/dL [facility] Blood Venous blood specimen / Unknown 08/04/2024 4:08 PM EST 08/04/2024 5:50 PM EST us Yolande Victor MD LAB BLOOD ORDERABLES Final Result Performing Organization Address [facility]/ZIP Co de Phone Number [facility] [address] [place] [address] [phone] * BIN Screen,IFA, with Reflex to Titer and Pattern (08/04/2024 4:08 PM EST) Anti Nuclear Antibody Screen NEGATIVE NEGATIVE [facility] Comment:BIN IFA is a first [...] clinicallysuspected inflammatory myopathies.AC-0: NegativeInternational Consensus on BIN Patterns(https://doi.org/10.1515/rwxv-5981-1483)For additional information, please refer tohttp://education.[employer]/faq/UUP025(This link is being provided for informational/educational purposes only.)THIS TEST WAS PERFORMED AT:[employer] [place] [phone] PATTERSON MD BIN Titer [facility] B[facility] Pattern [facility] BIN TITER 2 (REF LAB) [facility] BIN Pattern 2 [facility] BIN TITER 3 [facility] BIN PATTERN 3 [facility] Blood Venous blood specimen / Unknown 08/04/2024 4:08 PM EST 08/04/2024 5:50 PM EST us Yolande Victor MD LAB BLOOD ORDERABLES Final Result Performing Organization Address City/[facility]/ZIP Co de Phone Number [facility] [address] [place] [phone] * (ABNORMAL) Comprehensive Metabolic Panel (08/04/2024 4:08 PM EST) Sodium 144 135 - 145 mmol/L [facility] Potassium 3.8 3.3 - 5.1 mmol/L [facility] Chloride 107 96 - 108 mmol/L [facility] Carbon Dioxide 30(H) 22 - 29 mmol/L [facility] Anion Gap 11(L) 12 - 20 [facility] Urea Nitrogen (BUN) 15 9 - 16 mg/dL [facility] Creatinine, Serum 0.70 0.5 - 1.4 mg/dL [facility] Estimated Glomerular Filt Rate >60 [facility] Comment:Chronic Kidney Disea se: Estimated GFR < 60 mL/min/1.07o3Eccnta Kidney Disease: Estimated GFR < 15 mL/min/1.73m2 Glucose 89 60 - 115 mg/dL [facility] Calcium 9.4 8.4 - 10.2 mg/dL [facility] Bilirubin, Total 0.6 0.0 - 1.0 mg/dL [facility] Aspartate Amino Transferase 44(H) 5 - 31 U/L [facility] Alanine Aminotransferase 51(H) 0 - 31 U/L [facility] Total Protein 7.9 6.5 - 8.0 g/dL [facility] Albumin Level 4.1 3.5 - 5.0 g/dL [facility] Alkaline Phosphatase 131(H) 39 - 117 U/L [facility] Blood Venous blood specimen / Unknown 08/04/2024 4:08 PM EST 08/04/2024 5:50 PM EST us Yolande Victor MD LAB BLOOD ORDERABLES Final Result [facility] [address] [place] [phone] * Hematoxylin and Eosin Stain (07/28/2024 10:26 AM EST) 07/28/2024 10:2 6 AM EST 07/28/2024 11:14 AM EST Narrative [facility] - 08/02/2024 3:41 PM EST ----- ------- Name: Farrah Yancey ?Age/Sex: 54/F ? : 1970 Unit#: [id number] ?? Attend Dr: Marilyn Reddy MD ?Re07/28/24 ?Status: DEP SDC ? Location: HO.SSS ?Disch: ? ----- ------- SPEC : [id number] ?RECD: 07/28/24-1114 ? STATUS: ??SOUT ? REQ NUM: [id number] ? SARTHAK: 07/28/24-1026 ? SUBM DR: Marilyn Reddy MD ? ENTERED: ??07/28/24-3 ?SP TYPE: Surgical ? OTHR DR: Name,Matt [...] Yancey ?Age/Sex: 54/F ? : 1970 Unit#: [id number] ?? Attend Dr: Marilyn Reddy MD ?Re07/28/24 ?Status: DEP SDC ? Location: HO.SSS ?Disch: ? ----- ------- SPEC : [id number] ?RECD: 07/28/24-1113 ? STATUS: ??SOUT ? REQ NUM: [id number] ? SARTHAK: 07/28/24-1025 ? SUBM DR: Marilyn Reddy MD ? [...] microscopic examination, 2 pieces in cassette E. ??[facility] Special studies ordered and performed: Immunostain for H. pylori on B; AB/PAS stains on A, B and C Copies To: ?? Marilyn Reddy MD ?? [facility] ?? [address] ?? [place] [address] ?? [phone] ?? Matt Wu MD ?? [address] ?? [place] [address] ?? [phone] ----- ------- Signed (signature on file) Chris Hendrix MD 08/02/24 1541 ? ----- ------- ? END OF REPORT ? Generic External Data Provider LAB BLOOD ORDERAB LES Final Result Performing Organization Address [facility] Co de Phone Number [facility] [address] [place] [address] [phone] * (ABNORMAL) Glucose, Whole Blood (07/28/2024 9:36 AM EST) Glucose, Whole Blood 133(H) 60 - 115 mg/dL [facility] Comment:METER #: [id number] 07/28/2024 9:36 AM EST 07/28/2024 9:40 AM EST Generic External Data Provider LAB BLOOD ORDERAB LES Final Result Performing Organization Address [facility] Co de Phone Number [facility] [address] [place] [address] [phone] * BI Mammogram Screening Tomosynthesis Bilateral (05/27/2024 1:45 PM EST) Anatomical Region Laterality Modality Breast Bilateral Mammography 05/27/2024 1:45 PM EST Narrative 06/06/2024 4:29 PM EST ? [facility] ? [address] ?[place] [address] ? Mammography Report ? Signed ? Patient: Bc,Farrah ?MR#: [id number] ?? 3 ? : 1970 ?Acct:[id number] ? Age/Sex: 54 / F ?ADM Date: 05/27/24 ? Loc: HO.MAMMO ? Attending Dr: Matt Wu MD ? Ordering Physician: Matt Wu MD ?Results: 1Negative ? Date of Service: 05/27/24 ?Follow Up: 1 Year From Orig ?? inal Mammogram ? Procedure(s): MM tomosynthesis screening BI ?? Accession Number(s): [id number] ? cc: Name,Matt APPIAH ? EXAMINATION: ?? [...] DD/ 1345 ? TD/TT: 05/27/24 1408 ? [employer] Blind [employer]her: ? Procedure Note Dongarciater, [facility] [address] [place] [address] Mammography Report Signed Patient: David Yancey#: [id number] 3 : 1970Acct:[id number] Age/Sex: 54 / FADM Date: 05/27/24 Loc: HO.MAMMO Attending Dr: Matt Wu MD Ordering Physician: Matt Wuesults: 1Negative Date of Service: 05/27/24Follow Up: 1 Year From Orig inal Mammogram Procedure(s): MM tomosynthesis screening BI Accession Number(s): [id number] cc: Matt Wu MD EXAMINATION: MM SCREENING [...] 06/06/24 1626 DD/ 1345 TD/TT: 05/27/24 1408 [employer] Blind [employer]her: Matt Wu MD IMG BI PROCEDURES Final Result * HIV-1/2 Antigen and Antibodies, Fourth Generation, with Reflexes (12/21/2023 12:36 PM EDT) Pathologist [facility] HIV AB/AG Nonreactive Nonreactive [facility] Comment:HIV-1 p24 Ag and/or HIV-1/HIV-2 Ab not detected.A test result that is nonreactive does not exclude thepossibility of exposure to or infection with HIV-1 and/orHIV-2. Nonreactive results in this assay for individualswith prior exposure to HIV-1 and/or HIV-2 may be due toantigen and antibody levels that are below the limit ofdetection of this assay.[facility] HIV Ag/Ab Combo assay result andsupplemental assay results should be interpreted inconjunction with the patient's clinical presentation,history and other laboratory results. If the results areinconsistent with clinical evidence, additional testing issuggested to confirm the result. Blood Venous blood specimen / Unknown 12/21/2023 12:36 PM EDT 12/21/2023 12:36 PM EDT us Matt Wu MD LAB BLOOD ORDERABLES Final Resul t [facility] [address] [place] [phone] * Albumin, Random Urine W/Creatinine (09/09/2023 12:24 PM EDT) Creatinine, Urine 120.92 mg/dL [facility] Microalbumin Urine 6.0 mg/L H [facility] Microalbum Creatinine Ratio Ur 4.9 <30 ug/mg cr [facility] Comment:Albumin/Creatinine R atio Reference Ranges: Normal: < 30 ug/mg creatinine Microalbuminuria: 30 - 300 ug/mg creatinineClinical Albuminuria: > 300 ug/mg creatinine Urine (Urine, Random) 09/09/2023 12:24 PM EDT 09/09/2023 2:10 PM EDT Matt Wu MD LAB URINE ORDERABLES Final Resul t Performing Organization Address [facility] Co de Phone Number [facility] [address] [place] [phone] * Hepatitis Panel, General (05/26/2022 4:23 PM EST) Hepatitis A IgM Nonreactive Nonreactive [facility] Comment:IgM antibodies to TORRES V not detected; does not exclude earlyacute or recovered HAV infection. ~Hepatitis B Surface Antibody NONREACTIVE Nonreactive [facility] Comment:Nonreactive: < 8.00 mIU/mL Hepatitis B Core Antibody Nonreactive Nonreactive [facility] Hepatitis C Antibody Nonreactive Nonreactive [facility] Comment:Antibodies to HCV no t detected; does not exclude early acuteHCV infection. Hepatitis B Surface Antigen Negative Negative [facility] 05/26/2022 4:23 PM EST 05/26/2022 4:23 PM EST [facility] External Provider LAB BLO OD ORDERABLES Final Result Performing Organization Address [facility] Co de Phone Number [facility] [address] [place] [address] [phone] * Pap Smear (05/17/2021) Pap Negative for intraephithelial lesion or malignancy Negative for intraephithelial lesion or malignancy, Other HPV Not Detected Undetected, Indeterminate, Quantitative, Not Detected us Historical Provider HEALTH MAINTENANCE Final Result from Last 3 Months or Most Recently Relevant to Health Maintenance Insurance [facility] [employer] Care Teams In Service Coordinator Relationship Specialty Start Date End Date Name, MD Matt [address] [place] [address] PCP - General Family Medicine 02/21/22 Estephanie Tan Unindentured ApprenticeProject Consultant 11/24/23
== END 2024-09-27 13:47 | disposition home or self-care (01) ==
LOC: HO.HUSH 11:07
PROVIDERS: PCP Internal Medicine Geriatric Medicine; Visit Provider Urology
DX: R35.0 Frequency of micturition (principal); Z87.442 Personal history of urinary calculi; R10.9 Unspecified abdominal pain
CPT/HCPCS: 99213

== ENCOUNTER → 2024-09-27 11:07 | Outpatient (BNVA) | payer MEDICAID, SELFPAY | PROVIDERS: PCP Internal Medicine Geriatric Medicine; Visit Provider Urology ==

== ENCOUNTER 2024-10-25 14:48 | Outpatient (AMB) | payer MEDICAID, SELFPAY ==
--- NOTE | 2024-10-25 15:01 | MHC.OFFVIS ---
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 Hims Manager Required: Yes Hims Manager Language: Soil Biology Teacher Name: Cynthia [phone] Rubber And Plastics Worker: Rubber And Plastics Worker Present (Nicole) Accompanied by: Spouse Allergies acetaminophen [From Vicodin] Allergy (Intermediate, Verified 10/25/24 15:02) Palpitations, Itch amoxicillin [Prevpac] Allergy (Intermediate, Verified 10/25/24 15:02) itchy throat hydrocodone [From Vicodin] Allergy (Intermediate, Verified 10/25/24 15:02) Palpitations, Itch ibuprofen [From Motrin] Allergy (Intermediate, Verified 10/25/24 15:02) UPSET STOMACH, abdominal pain lansoprazole [Prevpac] Allergy (Intermediate, Verified 10/25/24 15:02) itchy throat morphine [MORPHINE] Allergy (Intermediate, Verified 10/25/24 15:02) PALPATATIONS, PANIC ATTACKS, nauseas,panic attack, heart palpitations omeprazole [From PRILOSEC] Allergy (Intermediate, Verified 10/25/24 15:02) ITCHY THROAT pravastatin [PRAVASTATIN] Allergy (Intermediate, Verified 10/25/24 15:02) UNKNOWN rosuvastatin [From CRESTOR] Allergy (Intermediate, Verified 10/25/24 15:02) UNKNOWN terbinafine [TERBINAFINE] Allergy (Intermediate, Verified 10/25/24 15:02) UNKNOWN atorvastatin [From LIPITOR] Allergy (Unknown, Verified 10/25/24 15:02) UNKNOWN clarithromycin [From BIAXIN] Adverse Reaction (Intermediate, Verified 10/25/24 15:02) ABD PAIN, DIARRHEA gabapentin [GABAPENTIN] Adverse Reaction (Intermediate, Verified 10/25/24 15:02) UNKNOWN, nausea, dizziness levofloxacin [LEVOFLOXACIN] Adverse Reaction (Intermediate, Verified 10/25/24 15:02) PALPITATIONS tylenol with codeine Allergy (Unknown, Uncoded 06/17/24 13:10) fast heart rate HPI Comments Details: She is a 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 She is doing well with wood carver hand concerns: pelvic pain for years, and feels a mass on the left side. No dysuria or frequency. Currently sexually active. Denies any vaginal dryness or irritation. External irritation only. Attempting to eat a healthy diet with calcium and vitamin D and stays active with some exercise. Last pap smear; 2020, negative. Last mammogram; 2023. Colonoscopy is UTD. FH breast, ovarian and colon cancer. [facility] Medical History FH: breast cancer Pelvic pain Encounter for well woman exam with routine gynecological exam Umbilical hernia Scalp mass Irritable bowel syndrome with diarrhea Allergic rhinitis Lumbar degenerative disc disease Breast pain during Carpal tunnel syndrome Arthritis Morbid obesity with BMI of 40.0-44.9, adult Insomnia Diabetes mellitus Benign essential hypertension Polyarthralgia Fibromyalgia Mixed hyperlipidemia Candidiasis of mouth and esophagus Thoracic spondylosis Surgical History Hx of dilation and curettage History of endometrial ablation Hx of colonoscopy History of esophagogastroduodenoscopy (EGD) History of dermoid cyst excision History of excision of lamina of cervical vertebra for decompression of spinal cord H/O hemorrhoidectomy History of appendectomy Family History Father NIDDY (non-insulin dependent diabetes mellitus in young) Cardiovascular disease Obesity Cancer of unknown origin Colon cancer Mother CAD (coronary artery disease) NIDDY (non-insulin dependent diabetes mellitus in young) Brother Schizophrenia Degenerative disc disease H/O lymph node cancer Sister Breast cancer Colon cancer Paternal Grandmother Ovarian cancer, Onset Age: 45 Daughter Fibromyalgia Hypertension Cancer of unknown origin Ovarian cancer Other Mental health problem Social History Household Members: None Housing: Apartment Alcohol intake: never Patient Tobacco Use Status: Never used Tobacco e-Cigarette/Vaping Use: Never Used Second Hand Smoke Exposure: No service: No Current occupational status: disabled 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 Sexual orientation: Straight/Heterosexual Gender identity: Female Cognitive needs: No Hearing needs: Yes Vision needs: Yes Female Reproductive History Menstrual Age of Menarche: 11 Total pregnancies: 7 Full term: 5 Number of Living Children: 5 Ab spontaneous: 2 Date of last pap smear: 05/17/21 (neg pap and hpv) Date of Mammogram: 05/27/24 (Birad 1) Review of Systems Const All systems reviewed & are unremarkable except as noted in HPI and below Reports as per HPI Eyes Reports no additional complaints ENT Reports no additional complaints Card Reports no additional complaints Resp Reports no additional complaints GI Reports as per HPI and Reports no additional complaints Reports as per HPI Musc Reports no additional complaints Skin/Breast Reports as per HPI Neuro Reports no additional complaints Psych Reports no additional complaints Endo Reports no additional complaints [place]/Lymph Reports no additional complaints Aller/Immun Reports no additional complaints Physical Exam Vital Signs: Last Vital Signs BP 114/72 10/25/24 15:04 BMI result Body Mass Index 37.2 Const General: cooperative, healthy appearing, no acute distress, well developed and alert Orientation/consciousness: patient oriented x3 HEENT Head: Yes normal to inspection Eyes General: appearance normal, both eyes and all related structures Neck Neck: Yes normal visual inspection Thyroid: Thyroid normal Chest Chest palpation & inspection: normal inspection of the chest and other (no puckering, dimpling, peau de orange, retraction, discharge, masses) Breast/axilla inspection: normal inspection of the breasts Breast/axilla palpation: normal palpation of the breasts Resp Effort & Inspection: normal respiratory effort GI Other: small firmer, non tender lump lower left abdominal when standing Inspection: Yes normal to inspection, Yes obesity and Yes scar Palpation (GI): Soft to palpation Rectal Exam - Female: deferred General: Yes bladder normal to palpation External Female Exam: normal external appearance and normal appearance of the urethra Speculum Exam - Vagina: normal appearance of the vagina, normal palpation and normal vaginal discharge Speculum Exam - Cervix: normal appearance of the cervix and normal palpation Bimanual exam- vagina & uterus: normal bimanual exam, normal palpation, uterine size normal, bladder normal to palpation, normal palpation and non-tender Bimanual Exam- Adnexa, other: no masses Skin General skin exam: no rashes or lesions noted Rashes: no rashes Neuro General: patient oriented x3 Cognition (Neuro): normal cognition Extrem General: Yes normal to inspection Psych Attitude: cooperative Thought process: Normal thought process present Results AMB Urinalysis, Automated UA Leukoctes 0 Tremaine/uL Last Edit by DOTTY Aguilar on 10/25/24 15:43 UA Nitrite Negative Last Edit by DOTTY Aguilar on 10/25/24 15:43 UA Urobilinogen 0 mg/dL Last Edit by Yeni Varghese CAMER[facility] on 10/25/24 15:43 UA Protein 0 mg/dL Last Edit by Yeni Varghese A on 10/25/24 15:43 UA pH 5.5 Last Edit by Yeni Varghese, A on 10/25/24 15:43 UA Blood 0 Jose Luis/uL Last Edit by Yeni Varghese [facility] on 10/25/24 15:43 UA Specific [place] 1.020 Last Edit by Yeni Varghese [facility] on 10/25/24 15:43 UA Ketone Negative Last Edit by Yeni Varghese, [facility] on 10/25/24 15:43 UA Bilirubin 0 mg/dL Last Edit by Yeni Varghese [facility] on 10/25/24 15:43 UA Glucose 3 mg/dL Last Edit by Yeni Varghese [facility] on 10/25/24 15:43 Assessment & Plan Assessment & Plan (1) Encounter for well woman exam with routine gynecological exam: Code(s): Z01.419 - Encounter for gynecological examination (general) (routine) without abnormal findings Category: Medical Plan: Discussed: Findings on exam for the area her abdomen she was concerned about, maybe an old injury scar tissue, it is nontender and not increasing in size, advised to monitor for now if any further concerns we will refer her for further evaluation. Current recommendations for pap smears per ASCCP guidelines. Breast awareness, periodic self breast exams and yearly mammogram. Maintain a healthy lifestyle, well balanced diet including Calcium 1,200 mg and Vitamin D 600 IU daily, and routine exercise. Contact the office with any postmenopausal bleeding. Patient verbalizes understanding and agrees to the plan of care. She was given opportunity to ask questions and all questions were answered to the best of my ability. RTO in 1 year for annual wood carver hand exam. This note is constructed using voice recognition software. While every effort has been made to ensure accuracy, systems testing laboratory technician errors may have been included. (2) Pelvic pain: Code(s): R10.2 - Pelvic and perineal pain Category: Medical Plan: Workup for pelvic pain to include pelvic ultrasound, cervical cultures, and urine. Await results for plan of care. The patient expressed understanding and agreement with the plan of care. All of her questions and concerns were addressed to the best of my ability. Total time I personally spent on visit and management today: ?15 minutes. Time spent included review of pertinent office notes in the electronic health record; review of laboratory and imaging results; review of personal family medical history; performing physical exam; discussing diagnosis and plan of care with the patient; documenting the encounter in the EMR. Plan This note is constructed using voice recognition software. While every effort has been made to ensure accuracy, systems testing laboratory technician errors may have been included. Orders: Orders US pelvic and transvaginal Today R10.2 - Pelvic and perineal pain Bacterial Vaginosis Panel Today R10.2 - Pelvic and perineal pain CT NG by PCR Today R10.2 - Pelvic and perineal pain AMB Urinalysis Automated Today R10.2 - Pelvic and perineal pain Referrals Breast Surgery Referral Z80.3 - Family history of malignant neoplasm of breast Coding Level of Care Code Est Pt Prev Care 40-64y(66331) Diagnoses Encounter for well woman exam with routine gynecological exam Z01.419 Pelvic pain R10.2
[2024-10-25 15:04] VITALS: BP 114/72; BMI 37.2
--- OUTSIDE RECORDS SUMMARY | 2024-10-25 15:52 | XMS_ITS | Encounter Summary ---
Author Organization [facility] Address [address] [place] [address] Support Name Relationship Address Phone Kimo Sprague Emergency Contact [address] [place] [address] Care Team Providers Care Patient Care Associate Name Role Phone Anila Craven MD Primary Care Provider Un available Stacy Parry MD Primary Care Provider Unavail able Victoriano Smith MD Primary Care Provider Unava ilable Name, Matt APPIAH Primary Care Provider UnavailReyna Yañez MD Unavailable [phone] Chris Wallace PA-C Unavailable [phone] Latoya Hardy PA-C Unavailable [phone] Encounter Details Date Type Department Care Team Description 04/16/2017 Orders Only Adult Medicine A - [place] [address] [place] [address] Alicia Crabtree PA-C [address] [place] [id number] Social History Tobacco Use Types Packs/Day Years Used Date Smoking Tobacco: Never Alcohol Use Standard Drinks/Week Comments No 0 (1 standard drink = 0.6 oz pur e alcohol) Sex Assigned at Date Recorded Not on file documented as of this encounter Plan of Treatment Not on file documented as of this encounter Visit Diagnoses Not on filedocumented in this encounter Care Teams Patient Care Associate Relationship Specialty Start Date End Date Anila Craven MD PCP - General Internal Medicine 09/03/16 9 Stacy Parry MD PCP - General Internal Medicine 02/21/19 01/20/20 Victoriano Smith MD PCP - General Internal Medicine 01/21/20 07/07/22 Matt Wu MD PCP - General Internal Medicine 07/08/22 Reyna Laboy MD [address] [address] Specialist Neurosurgery 12/22/23 Chris Wallace PA-C [address] [address] Specialist Neurosurgery 03/10/24 Latoya Hardy PA-C [address] [address] Specialist Neurosurgery 03/10/24 documented as of this encounter
--- OUTSIDE RECORDS SUMMARY | 2024-10-25 15:52 | XMS_ITS | Encounter Summary ---
Author Organization [facility] Address [address] [place] [address] Support Name Relationship Address Phone Kimo Sprague Emergency Contact [address] [place] [address] Care Team Providers Care Process Chemist Name Role Phone Anila Craven MD Primary Care Provider Un available Stacy Parry MD Primary Care Provider Unavail able Victoriano Smith MD Primary Care Provider Unava ilable Matt Wu MD Primary Care Provider Unavailabl e Reyna Laboy MD Unavailable [phone] Chris Wallace PA-C Unavailable [phone] Ltaoya Hardy PA-C Unavailable [phone] Encounter Details Date Type Department Care Team Description 04/24/2017 [facility] Medical Records [address] [place] [id number] [place] [address] Social History Tobacco Use Types Packs/Day Years [...] on filedocumented in this encounter Care Teams Process Chemist Relationship Specialty Start Date End Date Anila Craven MD PCP - General Internal Medicine 09/03/16 9 Stacy Parry MD PCP - General Internal Medicine 02/21/19 01/20/20 Victoriano Smith MD PCP - General Internal Medicine 01/21/20 07/07/22 Matt Wu MD PCP - General Internal Medicine 07/08/22 Reyna Laboy MD [address] [address] Specialist Neurosurgery 12/22/23 Chris Wallace PA-C [address] [address] Specialist Neurosurgery 03/10/24 Latoya Hardy PA-C [address] [address] Specialist Neurosurgery 03/10/24 documented as of this encounter
--- OUTSIDE RECORDS SUMMARY | 2024-10-25 15:52 | XMS_ITS | Encounter Summary ---
Author Organization [facility] Address [address] [place] [address] Support Name Relationship Address Phone Kimo Sprague Emergency Contact [address] [place] [address] Care Team Providers Care Small Machine Bindery Operator Name Role Phone Makayla Sam DO Primary Care Pro vider Unavailable Anila Craven MD Primary Care Provider Un available Stacy Parry MD Primary Care Provider Unavail able Victoriano Smith MD Primary Care Provider Unava ilable Name, Matt APPIAH Primary Care Provider UnavailReyna Yañez MD Unavailable [phone] Chris Wallace PA-C Unavailable [phone] Latoya Hardy PA-C Unavailable Encounter Details Date Type Department Care Team Description 02/08/2016 Refill Adult [address] [address] Makayla Sam DO Social History Tobacco Use [...] filedocumented in this encounter Care Teams Small Machine Bindery Operator Relationship Specialty Start Date End Date Makayla Sam DO PCP - General Internal Medicine 10/10/14 09/02/16 Anila Craven MD PCP - General Internal Medicine 09/03/16 9 Stacy Parry MD PCP - General Internal Medicine 02/21/19 01/20/20 Victoriano Smith MD PCP - General Internal Medicine 01/21/20 07/07/22 Matt Wu MD PCP - General Internal Medicine 07/08/22 Reyna Laboy MD [address] [id number] Specialist Neurosurgery 12/22/23 Chris Wallace PA-C [address] [address] [place] [address] Specialist Neurosurgery 03/10/24 Latoya Hardy PA-C [address] [id number] Specialist Neurosurgery 03/10/24 documented as of this encounter
--- OUTSIDE RECORDS SUMMARY | 2024-10-25 15:53 | XMS_ITS | Encounter Summary ---
Author Organization [facility] Address [address] [place] [address] Support Name Relationship Address Phone Kimo Sprague Emergency Contact [address] [place] [address] Care Team Providers Care Mechanical Assembler Name Role Phone Anila Craven MD Primary Care Provider Un available Stacy Parry MD Primary Care Provider Unavail able Victoriano Smith MD Primary Care Provider Unava ilable Matt Wu MD Primary Care Provider Unavailabl e Reyna Laboy MD Unavailable [phone] Chris WallaceC Unavailable [phone] Latoya Hardy PA-C Unavailable [phone] Encounter Details Date Type Department Care Team Description 11/26/2017 [facility] Medical Records [address] [place] [id number] Geetha Noriega E, CLINICAL PROJECT MANAGER Social History Tobacco Use Types Packs/Day [...] filedocumented in this encounter Care Teams Mechanical Assembler Relationship Specialty Start Date End Date Anila Craven MD PCP - General Internal Medicine 09/03/16 9 Stacy Parry MD PCP - General Internal Medicine 02/21/19 01/20/20 Victoriano Smith MD PCP - General Internal Medicine 01/21/20 07/07/22 Matt Wu MD PCP - General Internal Medicine 07/08/22 Reyna Laboy MD [address] [address] Specialist Neurosurgery 12/22/23 Chris Wallace PA-C [address] [address] Specialist Neurosurgery 03/10/24 Latoya Hardy PA-C [address] [address] Specialist Neurosurgery 03/10/24 documented as of this encounter
--- OUTSIDE RECORDS SUMMARY | 2024-10-25 15:53 | XMS_ITS | Encounter Summary ---
Author Organization [facility] Address [address] [place] [address] Support Name Relationship Address Phone Kimo Sprague Emergency Contact [address] [place] [address] Care Team Providers Care Food Sanitarian Name Role Phone Anila Craven MD Primary Care Provider Un available Stacy Parry MD Primary Care Provider Unavail able Victoriano Smith MD Primary Care Provider Unava ilable Name, Matt APPIAH Primary Care Provider UnavailReyna Yañez MD Unavailable [phone] Chris Wallace PA-C Unavailable [phone] Latoya Hardy PA-C Unavailable Encounter Details Date Type Department Care Team Description 01/07/2019 Assembler Bonding Report Medical Records [address] [place] [address] [facility] [address] [place], [place] [id number] Social History Tobacco Use Types Packs/Day Years [...] on filedocumented in this encounter Care Teams Food Sanitarian Relationship Specialty Start Date End Date Anila Craven MD PCP - General Internal Medicine 09/03/16 9 Stacy Parry MD PCP - General Internal Medicine 02/21/19 01/20/20 Victoriano Smith MD PCP - General Internal Medicine 01/21/20 07/07/22 Matt Wu MD PCP - General Internal Medicine 07/08/22 Reyna Laboy MD [address] [id number] Specialist Neurosurgery 12/22/23 Chris Wallace PA-C [address] [phone] Specialist Neurosurgery 03/10/24 Latoya Hardy PA-C [address] [address] Specialist Neurosurgery 03/10/24 documented as of this encounter
--- OUTSIDE RECORDS SUMMARY | 2024-10-25 15:53 | XMS_ITS | Data Portability ---
Author Organization [place] [facility], Allergy Address [address] [place] [address] Care Team Providers Care Parts Control Clerk Name Role Phone YOLANDA VANEGAS Referring Provider [phone] Assessment Encounter Date Assessment Date Assessment LastModified [...] for amplification. Recommend she follow up with [facility], and discussed hearing aids would help [...] Organization Details Recorded Time Dizziness and giddiness [id number] Active 2017 Dizziness and giddiness ; Note: Date Diagnosed : 02/11/2018 2:44 PM (R42) Not Available [facility] 4 03:04:54 Sensorine ural hearing loss of bilateral ears 750563642 Active 2020 Sensorine ural hearing loss, bilateral ; Note: Date Diagnosed : 01/10/2021 2:50 PM (H90.3) Not Available [facility] 4 03:04:55 Headache 93440059 Active 2017 Headache, unspecifi ed; Note: Changed from R51 to R51.9 (07/19/2021 2:06 PM) , Date Diagnosed : 02/11/2018 2:44 PM (R51) Not Available [facility] 4 03:04:55 Migraine 10509308 Active 2020 Other migraine, not intractab le, without status migrainos us; Note: Date Diagnosed : 1 4:10 PM (G43.809) Not Available [facility] 4 03:04:56 Gastroeso phageal reflux disease without esophagit is 399104015 Active 2017 Gastro-es ophageal reflux disease without esophagit is; Note: Date Diagnosed : 03/05/2018 1:19 PM (K21.9) Not Available [facility] 4 03:04:53 Cough 80216736 Active 2017 Cough; Note: Date Diagnosed : 03/05/2018 1:16 PM (R05) Not Available [facility] 4 03:04:55 Referred otalgia of left ear [id number] 35593 Active 2023 MARISSA CARCAMO PA-C [address] [facility], [facility] [place], [address] , [facility] - [facility] 4 12:01:45 Bilateral tinnitus 22413982982 02 Active 2023 MARISSA CARCAMO [facility]-C [address] [facility] [place], [facility] [place], [address] , [place] - [facility] 4 12:01:52 Problem Notes None recorded. Procedures Surgical History Date Name Laterality Status Provider Name and Address Organization Details Recorded Time 024 Air & Speech Audio with Tymps - 29330, 68310 & 71575 completed SHAHLA SLOAN [address] [facility], [place], [address], [place] - [facility] 05/27/2024 11:03:21 hemorrhoidectomy completed Mica Horner [place] - [facility] 05/27/2024 10:56:11 Appendectomy completed Mica Horner [place] [facility] 05/27/2024 10:56:15 Imaging Results Imaging Date [...] Name and Address Organization Details Recorded Time 39396 gabapenti n medicatio n other Not available Not available 10/27/2023 63627 RxNorm React ion: unkno wn, unspe cifie d;; Not Available [facility] 4 00:48:25 01055 terbinafi ne medicatio n other Not available Not available 10/27/2023 66879 RxNorm React ion: unkno wn, unspe cifie d;; Not Available [facility] 4 00:48:25 09326 Lipitor medicatio n other Not available Not available 10/27/2023 95628 5 RxNorm React ion: unkno wn, unspe cifie d;; Not Available [facility] 4 00:48:25 22400 Crestor medicatio n other Not available Not available 10/27/2023 13576 4 RxNorm React ion: unkno wn, unspe cifie d;; Not Available [facility] 4 00:48:34 98004 sodium medicatio n other Not available Not available 10/27/2023 9853 RxNorm React ion: unkno wn, unspe cifie d;; Not Available [facility] 4 00:48:41 76475 Biaxin medicatio n other Not available Not available 10/27/2023 78138 9 RxNorm React ion: unkno wn, unspe cifie d;; Not Available [facility] 4 00:48:42 34205 Motrin medicatio n other Not available Not available 10/27/2023 25588 8 RxNorm React ion: unkno wn, unspe cifie d;; Not Available [facility] 4 00:48:53 86470 morphine medicatio n other Not available Not available 10/27/2023 7052 RxNorm React ion: unkno wn, unspe cifie d;; Not Available [facility] 4 00:48:59 90319 acetamino phen / hydrocodo ne medicatio n other Not available Not available 10/27/2023 79377 2 RxNorm React ion: unkno wn, unspe cifie d;; Not Available [facility] 4 00:49:06 11735 pravastat in medicatio n other Not available Not available 10/27/2023 16302 RxNorm React ion: unkno wn, unspe cifie d;; Not Available [facility] 4 00:49:07 Medications Name Sig Start Date Stop Date Status Note LastModified by Organization Details LastModified Time nystatin 100,000 unit/mL oral suspensio n 05/27 completed Medicati on ID: 300830 D uration Value: 30 Brand Name: nystatin [...] Alcohol Pads 05/27 completed Medicati on ID: 612551 D uration Value: 30 Brand Name: Alcohol [...] mg tablet 05/27 completed Medicati on ID: 800392 D uration Value: 30 Brand Name: carvedil ol Send Method: E-Prescr ibed Sub s Allowed: subs OK Speci al Instruct ion: TAKE ONE TABLET BY MOUTH 2 (two) times a day WITH A MEAL Med [facility] enElizabet me: carvedil ol Not [...] mg tablet 05/27 completed Medicati on ID: 724588 D uration Value: 28 Brand Name: zolpidem [...] ating tablet 05/27 completed Medicati on ID: 410858 D uration Value: 30 Brand Name: bree parson Send Method: E-Prescr ibed Sub s Allowed: subs OK Speci al Instruct ion: DISSOLVE 1 TABLETS UNDER THE TONGUE EVERY 4 HOURS NEEDED M caroljerimariselamariah Lulúic Name: bree parson Not Available Not Available [...] elayed release 05/27 completed Medicati on ID: [id number] D uration Value: 30 Brand Name: donald [...] unit) capsule 2017 active Medicati on ID: 754210 D uration Value: 30 Brand Name: D3 Send Method: E-Prescr ibed Sub s Allowed: subs OK Speci al Instruct ion: TAKE ONE CAPSULE BY MOUTH DAILY Me dication GenericN louie: D3-2000 Not Available Not Available Not Available Easy Comfort Lancets 30 gauge 05/27 completed Medicati on ID: [id number] D uration Value: 30 Brand Name: Easy [...] SNOMED-CT Code Diagnosis ICD10 Code Diagnosis Note [id number] MARISSA CARCAMO PA-C [facility] [address] [address] 05/27/2024 10:49:53 05/27/2024 11:53:18 Sensorineural hearing loss of bilateral ears [id number] H90.3 Right Ear:Normal hearing through 2K Hz sloping to a profound SNHL with good speech discrimina tion.Type A tympanogra m.Left Ear:Normal hearing through 2K Hz sloping to a profound SNHL with good speech discrimina tion.Type A tympanogra m. Referred o talgia of left ear [id number] 099610 H92.02 Bilateral tinnitus 96487 15982 102 H93.13 Health Concerns Section Related Observation LastModified by Organization Detai ls LastModified Time None Recorded Concern Status LastModified by Organization Details LastModified Time None Recorded Advance Directives Directive None Recorded Payers Insurance Date Sequence Insurance Name Policy Number Policy Juárez Covered Member ID Juárez Member ID Guarantor Name 05/18/2024 2 [facility] - HEALTH NET PLAN (MEDICAID HMO) OSVALDO Farrah Bc [id number] Farrah Yancey 05/27/2024 1 [place] [facility] Farrahfarrukh Yancey [id number] Farrah Yancey 05/05/2024 1 [place] [facility] Farrahfarrukh Yancey [id number] Farrah Yancey Notes Date Note Type Note [...] caused pruritus. The amplification was dispensed by director of assisted living in [place]. Denies otorrhea or dizziness. Denies prior history of ear infections or ear surgeries. No history of loud noise exposure. No Qtip use. History of migraine. MIGUEL NATH MD [address] [place] [address], [phone], [facility] - [facility] 05/28/2024 13:57:56 OBGyn Episode No OBEpisode recorded.
--- OUTSIDE RECORDS SUMMARY | 2024-10-25 15:53 | XMS_ITS | Encounter Summary ---
Author Organization [facility] Address [address] [place] [address] Support Name Relationship Address Phone Kimo Sprague Emergency Contact [address] [facility] [address] [place] [address] Care Team Providers Care Community Engagement Manager Name Role Phone Anila Craven MD Primary Care Provider Un available Stacy Parry MD Primary Care Provider Unavail able Victoriano Smith MD Primary Care Provider Unava ilable Matt Wu MD Primary Care Provider Unavailabl e Reyna Laboy MD Unavailable [phone] Chris Wallace PA-C Unavailable [phone] Latoya Hardy PA-C Unavailable [phone] Encounter Details Date Type Department Care Team Description 04/29/2017 Liner Roll Changer Report Medical Records [address] [place] [address] Rylee Nunez PA-C Social History Tobacco Use [...] on filedocumented in this encounter Care Teams Community Engagement Manager Relationship Specialty Start Date End Date Anila Craven MD PCP - General Internal Medicine 09/03/16 9 Stacy Parry MD PCP - General Internal Medicine 02/21/19 01/20/20 Victoriano Smith MD PCP - General Internal Medicine 01/21/20 07/07/22 Matt Wu MD PCP - General Internal Medicine 07/08/22 Reyna Laboy MD [address] [address] Specialist Neurosurgery 12/22/23 Chris Wallace PA-C [address] [address] Specialist Neurosurgery 03/10/24 Latoya Hrady PA-C [address] [address] Specialist Neurosurgery 03/10/24 documented as of this encounter
--- OUTSIDE RECORDS SUMMARY | 2024-10-25 15:53 | XMS_ITS | Encounter Summary ---
Author Organization [facility] Address [address] [place] [address] Support Name Relationship Address Phone Kimo Sprague Emergency Contact [address] [facility] [address] [place] [address] Care Team Providers Care Early Childhood Education Coordinator Name Role Phone Anila Craven MD Primary Care Provider Un available Stacy Parry MD Primary Care Provider Unavail able Victoriano Smith MD Primary Care Provider Unava ilable Bryce, Matt APPIAH Primary Care Provider UnavailReyna Yañez MD Unavailable [phone] Chris Wallace PA-C Unavailable Latoya Hardy PA-C Unavailable [phone] Reason for Visit * Reason Onset Date Comments Repair Technician Feedback 11/24/2016 Genetics Encounter Details Date Type Department Care Team Description 11/24/2016 Telephone Adult Medicine [address] [address] Anila Craven MD Repair Technician Feedback (Genetics) Social History Tobacco Use Types [...] may be needed. Thank you, Rich Referrals Personal Lines Account Manager [facility] Referrals Department * Telephone Encounter - Sinan Kingnett - 11/24/2016 7:56 AM EDT [employer] Standardized Prior Authorization Request form completed and faxed to [facility] Case Management for reviewwith last office note and lab order. Awaiting response. documented in this encounter Plan of Treatment Not on file documented as of this encounter Visit Diagnoses Not on filedocumented in this encounter Care Teams Early Childhood Education Coordinator Relationship Specialty Start Date End Date Anila Craven MD PCP - General Internal Medicine 09/03/16 9 Stacy Parry MD PCP - General Internal Medicine 02/21/19 01/20/20 Victoriano Smith MD PCP - General Internal Medicine 01/21/20 07/07/22 Matt Wu MD PCP - General Internal Medicine 07/08/22 Reyna Laboy MD [address] [address] Specialist Neurosurgery 12/22/23 Chris Wallace PA-C [address] [facility] [address] [place] [address] Specialist Neurosurgery 03/10/24 Latoya Hardy PA-C [address] [address] Specialist Neurosurgery 03/10/24 documented as of this encounter
--- OUTSIDE RECORDS SUMMARY | 2024-10-25 15:53 | XMS_ITS | Encounter Summary ---
Author Organization [facility] Address [address] [place] [address] Support Name Relationship Address Phone Kimo Sprague Emergency Contact [address] [facility] [address] [place] [address] Care Team Providers Care Hot Tar Roofer Helper Name Role Phone Anila Craven MD Primary Care Provider Un available Stacy Parry MD Primary Care Provider Unavail able Victoriano Smith MD Primary Care Provider Unava ilable Matt Wu MD Primary Care Provider Unavailabl e Reyna Laboy MD Unavailable [phone] Chris WallaceC Unavailable Latoya Hardy PA-C Unavailable [phone] Encounter Details Date Type Department Care Team Description 11/20/2016 Outdoor Education Teacher Report Medical Records [address] [place] [address] Rj Nevarez MD Social History Tobacco Use [...] on filedocumented in this encounter Care Teams Hot Tar Roofer Helper Relationship Specialty Start Date End Date Anila Craven MD PCP - General Internal Medicine 09/03/16 9 Stacy Parry MD PCP - General Internal Medicine 02/21/19 01/20/20 Victoriano Smith MD PCP - General Internal Medicine 01/21/20 07/07/22 Matt Wu MD PCP - General Internal Medicine 07/08/22 Reyna Laboy MD [address] [address] Specialist Neurosurgery 12/22/23 Chris Wallace PA-C [address] [address] Specialist Neurosurgery 03/10/24 Latoya Hardy PA-C [address] [address] Specialist Neurosurgery 03/10/24 documented as of this encounter
--- OUTSIDE RECORDS SUMMARY | 2024-10-25 15:53 | XMS_ITS | Encounter Summary ---
Author Organization [facility] Address [address] [place] [address] Support Name Relationship Address Phone Kimo Sprague Emergency Contact [address] [facility] [address] [place] [address] Care Team Providers Care Technical Analyst Name Role Phone Name, Matt APPIAH Primary Care Provider Unavailbroderick e Reyna Laboy MD Unavailable [phone] Chris Wallace PA-C Unavailable Latoya Hardy PA-C Unavailable Encounter Details Date Type Department Care Team Description 12/24/2023 [facility] Records [facility] Neurosurgery [place] [address] [phone] Reyna Laboy MD [address] [address] Social History Tobacco Use Types Packs/Day Years [...] on filedocumented in this encounter Care Teams Technical Analyst Relationship Specialty Start Date End Date Name, MD Matt PCP - General Internal Medicine 07/08/22 Reyna Laboy MD [address] [id number] Specialist Neurosurgery 12/22/23 Chris Wallace PA-C [address] [address] Specialist Neurosurgery 03/10/24 Latoya Hardy PA-C [address] [place] [address] [place] [id number] Specialist Neurosurgery 03/10/24 documented as of this encounter
--- OUTSIDE RECORDS SUMMARY | 2024-10-25 15:53 | XMS_ITS | Encounter Summary ---
Author Organization [facility] Address [address] [facility] 7[address] [place] [address] Care Team Providers Care Needlemaker Name Role Phone Name, Matt APPIAH Primary Care Provider [phone] Reason for Visit * Reason Onset Date Comments Med Refill 09/24/2023 Encounter Details Date Type Department Care Team ([facility] st Contact Info) Description 09/24/2023 Telephone [facility] MEDICINE [address] [place] [address] Name, MD Matt [address] [place], [place] [id number] Med Refill Social History Tobacco Use Types [...] to: [facility] - [place], [place] - [phone] - [place] - [address] documented in this encounter Plan of Treatment Upcoming Encounters Date Type Department Care Team (Late st Contact Info) Description 11/30/2024 2:30 PM EDT Office Visit [facility] MEDICINE [address] [place] [address] Name, MD Matt [address] [place] [address] documented as of this encounter Visit Diagnoses Not on filedocumented in this encounter Additional Health Concerns Assessment Noted Time PHQ-9 Depression Total Score: 0 09/07/19 24 3:15 PM EDT documented as of this encounter Care Teams Needlemaker Relationship Specialty Start Date End Date Name, MD Matt [address] [place] [address] PCP - General Family Medicine 02/21/22 Estephanie Tan Smash PiecerTop And Seat Cover Fitter 11/24/23 documented as of this encounter
--- OUTSIDE RECORDS SUMMARY | 2024-10-25 15:53 | XMS_ITS | Encounter Summary ---
Author Organization [facility] Address [address] [place] [address] Support Name Relationship Address Phone Kimo Sprague Emergency Contact [address] [facility] [address] [place] [address] Care Team Providers Care Ship/Rec/Doc Control Name Role Phone Name, Matt APPIAH Primary Care Provider Unavailabl e Reyna Laboy MD Unavailable [phone] Chris Wallace PA-C Unavailable [phone] Ltaoya Hardy PA-C Unavailable Encounter Details Date Type Department Care Team Description 03/03/2024 SCAN [facility] Neurosurgery [place] [address] [phone] Reyna Laboy MD [address] [address] Social History Tobacco Use Types Packs/Day Years [...] on filedocumented in this encounter Care Teams Ship/Rec/Doc Control Relationship Specialty Start Date End Date Name, MD Matt PCP - General Internal Medicine 07/08/22 Reyna Laboy MD [address] [address] Specialist Neurosurgery 12/22/23 Chris Wallace PA-C [address] [address] Specialist Neurosurgery 03/10/24 Latoya Hardy PA-C 175 [facility] [address] [place] [address] Specialist Neurosurgery 03/10/24 documented as of this encounter
--- OUTSIDE RECORDS SUMMARY | 2024-10-25 15:53 | XMS_ITS | Encounter Summary ---
Author Organization [facility] Address [address] [place] [address] Support Name Relationship Address Phone Kimo Sprague Emergency Contact [address] [facility] [address] [place] [address] Care Team Providers Care Upsetter Helper Name Role Phone Anila Craven MD Primary Care Provider Un available Stacy Parry MD Primary Care Provider Unavail able Victoriano Smith MD Primary Care Provider Unava ilable Matt Wu MD Primary Care Provider Unavailabl e Reyna Laboy MD Unavailable [phone] Chris WallaceC Unavailable Latoya Hardy PA-C Unavailable [phone] Encounter Details Date Type Department Care Team Description 12/06/2018 Rn Occupational Health Report Medical Records [address] [place] [address] Catrachito Grady Social History Tobacco Use Types Packs/Day Years [...] on filedocumented in this encounter Care Teams Upsetter Helper Relationship Specialty Start Date End Date Anila Craven MD PCP - General Internal Medicine 09/03/16 9 Stacy Parry MD PCP - General Internal Medicine 02/21/19 01/20/20 Victoriano Smith MD PCP - General Internal Medicine 01/21/20 07/07/22 Matt Wu MD PCP - General Internal Medicine 07/08/22 Reyna Laboy MD [address] [address] Specialist Neurosurgery 12/22/23 Chris Wallace PA-C [address] [address] Specialist Neurosurgery 03/10/24 Latoya Hardy PA-C [address] [address] Specialist Neurosurgery 03/10/24 documented as of this encounter
--- OUTSIDE RECORDS SUMMARY | 2024-10-25 15:53 | XMS_ITS | Clinical Summary ---
Author Organization [address] [facility] Address [address] [place] [address] Phone Care Team Providers Care Staff Research Scientist Name Role Phone Name, Matt APPIAH Primary Care Provider [phone] Allergies Active Allergy Reactions Criticality Noted Date [...] into each nostril every 12 hours. 4 Active tiZANidine (ZANAFLEX) 4 mg capsule Take [...] obesity with BMI of 4 0.0-44.9, adult ([facility] V24, [facility] V28) 03/16/2024 Chronic low back pain with sciatica 03/16/2024 Class 2 obesity 11/06/2023 Premenstrual symptom 05/23/2019 Kari esophagitis ([facility] V24, [facility] V28) 0 10/08/2018 Overview (03/16/2024): F/u GI [facility] Helicobacter pylori (H. pylori) infection 2018 Overview (03/16/2024): F/u GI [facility] Seborrheic dermatitis 06/25/2018 Scalp psoriasis 04/13/2018 Hemorrhoids 06/04/2017 Overview (03/16/2024): Internal & external Nonalcoholic steatohepatitis (HURD) 06/04/2017 Insomnia 08/23/2015 Carpal tunnel syndrome 12/25/2014 Overview (03/16/2024): Bilateral - negative EMG at [place] 2014 Migraine 12/25/2014 Old SD (myocardial infarction) 12/25/2014 Overview (03/16/2024): 1998/ Dr Perez Osteoarthritis 12/25/2014 Overview (03/16/2024): Hands, knees, spine Tricuspid regurgitation 12/25/2014 Overview (03/16/2024): Mild tricuspid / mild pulmonic Fibromyalgia 10/16/2014 Psoriasis 10/16/2014 Asthma 08/07/2011 GERD (gastroesophageal reflux disease) 2 Overview (03/16/2024): H/o H.pylori x 3 Hyperlipidemia 08/07/2011 Hypertension 08/07/2011 Overview (03/16/2024): Follows with cardiology Type 2 diabetes mellitus wit h neurological manifestations, controlled ([facility] V24, [facility] V28) 08/07/2011 Encounters Date Type Department Care Team Description 09/26/2024 2:30 PM EDT Office Visit Orthopedic Surgery - [address] [address] Smooth Sharp, DPM Dermatophytosis of nail (Primary Dx); Tinea pedis of both feet; Ingrowing nail; Diabetic mononeuropathy simplex ([facility] V24, [facility] V28) from Last 3 Months Immunizations Name Administration Dates Next Due Hepatitis B (Bvngega-L-Lzfud , Recombivax HB-Adult) 19yo and older 03/13/2009,02/16/2008,01/11/2008 [...] diabetes mellitus wit h neurological manifestations, controlled ([facility]/H[facility] V24, [facility] V28) 08/07/2011 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, controlled ([facility]) Tricuspid regurgitation 12/25/2014 DX:Tricu spid regurgitation; COMMENT: Mild tricuspid / mild pulmonic Old SD (myocardial infarction) 12/25/2014 D X:Old SD (myocardial infarction); COMMENT: 1998/ Dr Perez Hyperlipidemia [...] DX:Hemorrhoids; COMMENT: Internal & external Kari esophagitis ([facility] V24, [facility] V28) 10/08/2018 DX:Kari esophagitis ([facility]) ; COMMENT: F/u GI [facility] Helicobacter pylori [...] PM EDT Office Visit Orthopedic Surgery - [place] [address] [address] Smooth Sharp, DPM [address] [address] Health Maintenance Due Date Last Done Comments [...] A1C Routine 08/27/2019 HM HPV Routine 05/19/2019 HM URINE ALBUMIN CREATININE RATIO Routine 02/18/2019 LIPID PANEL Routine 02/18/2019 COLONOSCOPY Routine 09/24/2015 from Last 3 Months or Most Recently Relevant to Health Maintenance Results * Annual BMP Blood Test (08/27/2019) [facility] Annual BMP Blood Test abstracted Result [facility] HEALTH MAINTENANCE Final Result * (ABNORMAL) Hemoglobin A1c (08/27/2019) [facility] Hemoglobin A1C 6.6(A) <=6.5 % Blood Venous blood specimen / Unknown Result [facility] Provider LAB BLOOD ORDERABLES Behzad l Result * Cervical Cancer Screening: HPV (05/19/2019) [facility] Cervical Cancer Screening: HPV negative, abstracted Result [facility] HEALTH MAINTENANCE Final Result * Urine Albumin Creatinine Ratio (02/18/2019) [facility] Urine Albumin Creatinine Ratio abstracted Result [facility] HEALTH MAINTENANCE Final Result * (ABNORMAL) Lipid panel (02/18/2019) [facility] LDL/HDL Ratio 7(A) 0 - 4 Triglycerides 443(A) 0 - 150 mg/dL Cholesterol 185 0 - 200 mg/dL HDL 27(A) >=40 mg/dL LDL Cholesterol 70 0 - 100 mg/dL Blood Venous blood specimen / Unknown Result [facility] Provider LAB BLOOD ORDERABLES Behzad l Result * Colonoscopy (09/24/2015) [facility] Colonoscopy no interpretation , abstracted Anatomical Region Laterality Modality Other Result [facility] Provider HEALTH MAINTENANCE Final Result from Last 3 Months or Most Recently Relevant to Health Maintenance Insurance MEDICAID - [place] Care Teams Staff Research Scientist Relationship Specialty Start Date End Date Name, MD Matt [address] [place], [place] PCP - General 07/08/22
--- OUTSIDE RECORDS SUMMARY | 2024-10-25 15:53 | XMS_ITS | Encounter Summary ---
Author Organization [facility] Address [address] [place] [address] Support Name Relationship Address Phone Kimo Spr[facility] Emergency Contact [address] [facility] [place] [address] Care Team Providers Care Showplace Manager Name Role Phone Makayla Sam DO Primary Care Pro vider Unavailable Anila Craven MD Primary Care Provider Un available Stacy Parry MD Primary Care Provider Unavail able Victoriano Smith MD Primary Care Provider Unava ilable Name, Matt APPIAH Primary Care Provider UnavailReyna Yañez MD Unavailable [phone] Chris Wallace PA-C Unavailable [phone] Latoya Hardy PA-C Unavailable [phone] Encounter Details Date Type Department Care Team Description 05/02/[address] [facility] Medical Records [address] [place] [address] Abstract, Provider Social History Tobacco Use Types [...] on filedocumented in this encounter Care Teams Showplace Manager Relationship Specialty Start Date End Date Makayla Sam DO PCP - General Internal Medicine 10/10/14 09/02/16 Anila Craven MD PCP - General Internal Medicine 09/03/16 9 Stacy Parry MD PCP - General Internal Medicine 02/21/19 01/20/20 Victoriano Smith MD PCP - General Internal Medicine 01/21/20 07/07/22 Bryce, MD Matt PCP - General Internal Medicine 07/08/22 Reyna Laboy MD [address] [phone] Specialist Neurosurgery 12/22/23 Chris Wallace PA-C [address] [address] Specialist Neurosurgery 03/10/24 Latoya Hardy PA-C [address] [address] Specialist Neurosurgery 03/10/24 documented as of this encounter
--- OUTSIDE RECORDS SUMMARY | 2024-10-25 15:53 | XMS_ITS | Encounter Summary ---
Author Organization [facility] Address [address] [place] [address] Support Name Relationship Address Phone Kimo Sprague Emergency Contact [address] [place] [address] Care Team Providers Care Printer Small Print Shop Name Role Phone Anila Craven MD Primary Care Provider Un available Stacy Parry MD Primary Care Provider Unavail able Victoriano Smith MD Primary Care Provider Unava ilable Matt Wu MD Primary Care Provider Unavailabl e Reyna Laboy MD Unavailable [phone] Chris WallaceC Unavailable [phone] Latoya Hardy PA-C Unavailable [phone] Encounter Details Date Type Department Care Team Description 10/18/2018 [employer] Foreign Language Tutor Report Medical Records [address] [place] [address] Christ Gustafson MD Social History Tobacco Use [...] on filedocumented in this encounter Care Teams Printer Small Print Shop Relationship Specialty Start Date End Date Anila Craven MD PCP - General Internal Medicine 09/03/16 9 Stacy Parry MD PCP - General Internal Medicine 02/21/19 01/20/20 Victoriano Smith MD PCP - General Internal Medicine 01/21/20 07/07/22 Matt Wu MD PCP - General Internal Medicine 07/08/22 Reyna Laboy MD [address] [address] Specialist Neurosurgery 12/22/23 Chris Wallace PA-C [address] [address] Specialist Neurosurgery 03/10/24 Latoya Hardy PA-C [address] [address] Specialist Neurosurgery 03/10/24 documented as of this encounter
--- OUTSIDE RECORDS SUMMARY | 2024-10-25 15:53 | XMS_ITS | Encounter Summary ---
Author Organization [facility] Address [address] [place] [address] Support Name Relationship Address Phone Kimo Sprague Emergency Contact [address] [facility] [address] [place] [address] Care Team Providers Care Knuckle Bender Name Role Phone Anila Craven MD Primary Care Provider Un available Stacy Parry MD Primary Care Provider Unavail able Victoriano Smith MD Primary Care Provider Unava ilable Matt Wu MD Primary Care Provider UnavailReyna Yañez MD Unavailable [phone] Chris Wallace PA-C Unavailable Latoya Hardy PA-C Unavailable Encounter Details Date Type Department Care Team Description 01/19/[address] [address] Anila Craven MD Social History Tobacco Use [...] on filedocumented in this encounter Care Teams Knuckle Bender Relationship Specialty Start Date End Date Anila Craven MD PCP - General Internal Medicine 09/03/16 9 Stacy Parry MD PCP - General Internal Medicine 02/21/19 01/20/20 Victoriano Smith MD PCP - General Internal Medicine 01/21/20 07/07/22 Matt Wu MD PCP - General Internal Medicine 07/08/22 Reyna Laboy MD [address] [id number] Specialist Neurosurgery 12/22/23 Chris Wallace PA-C [address] [address] Specialist Neurosurgery 03/10/24 Latoya Hardy PA-C [address] [address] Specialist Neurosurgery 03/10/24 documented as of this encounter
--- OUTSIDE RECORDS SUMMARY | 2024-10-25 15:53 | XMS_ITS | Encounter Summary ---
Author Organization [facility] Address [address] [place] [address] Support Name Relationship Address Phone Kimo Sprague Emergency Contact [address] [facility] [address] [place] [address] Care Team Providers Care Pneumatic Tool Repairer Name Role Phone Anila Craven MD Primary Care Provider Un available Stacy Parry MD Primary Care Provider Unavail able Victoriano Smith MD Primary Care Provider Unava ilable Matt Wu MD Primary Care Provider Unavailabl e Reyna Laboy MD Unavailable [phone] Chris Wallace PA-C Unavailable [phone] Latoya Hardy PA-C Unavailable [phone] Encounter Details Date Type Department Care Team Description 01/24/2019 [facility] Medical Records [address] [place] [address] Abstract, Provider Social History Tobacco Use Types [...] on filedocumented in this encounter Care Teams Pneumatic Tool Repairer Relationship Specialty Start Date End Date Anila Craven MD PCP - General Internal Medicine 09/03/16 9 Stacy Parry MD PCP - General Internal Medicine 02/21/19 01/20/20 Victoriano Smith MD PCP - General Internal Medicine 01/21/20 07/07/22 Matt Wu MD PCP - General Internal Medicine 07/08/22 Reyna Laboy MD [address] [address] Specialist Neurosurgery 12/22/23 Chris Wallace PA-C [address] [address] Specialist Neurosurgery 03/10/24 Latoya Hardy PA-C [address] [address] Specialist Neurosurgery 03/10/24 documented as of this encounter
--- OUTSIDE RECORDS SUMMARY | 2024-10-25 15:53 | XMS_ITS | Encounter Summary ---
Author Organization [facility] Address [address] [place] [address] Support Name Relationship Address Phone Kimo Sprague Emergency Contact [address] [facility] [address] [place] [address] Care Team Providers Care Seals Engraver Name Role Phone Makayla Sam DO Primary Care Pro vider Unavailable Anila Craven MD Primary Care Provider Un available Stacy Parry MD Primary Care Provider Unavail able Victoriano Smith MD Primary Care Provider Unava ilable Bryce, Matt APPIAH Primary Care Provider UnavailReyna Yañez MD Unavailable [phone] Chris Wallace PA-C Unavailable Latoya Hardy PA-C Unavailable Encounter Details Date Type Department Care Team Description 07/09/2016 Telephone Adult [address] [address] Makayla Sam DO Social History Tobacco Use [...] on filedocumented in this encounter Care Teams Seals Engraver Relationship Specialty Start Date End Date Makayla Sam DO PCP - General Internal Medicine 10/10/14 09/02/16 Anila Craven MD PCP - General Internal Medicine 09/03/16 9 Stacy Parry MD PCP - General Internal Medicine 02/21/19 01/20/20 Victoriano Smith MD PCP - General Internal Medicine 01/21/20 07/07/22 Name, MD Matt PCP - General Internal Medicine 07/08/22 Reyna Laboy MD [address] [address] Specialist Neurosurgery 12/22/23 Chris Wallace PA-C [address] [facility] [address] [place] [address] Specialist Neurosurgery 03/10/24 Latoya Hardy PA-C [address] [address] Specialist Neurosurgery 03/10/24 documented as of this encounter
--- OUTSIDE RECORDS SUMMARY | 2024-10-25 15:53 | XMS_ITS | Encounter Summary ---
Author Organization [employer] Address [address] [facility] 7t [place] [address] Care Team Providers Care Philatelic Consultant Name Role Phone Name, Matt APPIAH Primary Care Provider [phone] Reason for Visit * Reason Onset Date Comments Med Refill 01/21/2024 Encounter Details Date Type Department Care Team ([facility] st Contact Info) Description 01/21/2024 Telephone [facility] [address] [place] [address] Name, MD Matt [address] [place], [place] [phone] Med Refill Social History Tobacco Use Types [...] 10 MG tablet To be sent to: [facility] - [place], [place] - [phone] - [place] - [address] documented in this encounter Plan of Treatment Upcoming Encounters Date Type Department Care Team (Late st Contact Info) Description 11/30/2024 2:30 PM EDT Office Visit [facility] [address] [place] [address] Name, MD Matt [address] [place] [address] documented as of this encounter Visit Diagnoses Not on filedocumented in this encounter Additional Health Concerns Assessment Noted Time PHQ-9 Depression Total Score: 0 09/07/19 3:15 PM EDT documented as of this encounter Care Teams Philatelic Consultant Relationship Specialty Start Date End Date Name, MD Matt [address] [place] [address] PCP - General Family Medicine 02/21/22 Estephanie Tan Shellfish CheckerKey Operator 11/24/23 documented as of this encounter
--- OUTSIDE RECORDS SUMMARY | 2024-10-25 15:53 | XMS_ITS | Encounter Summary ---
Author Organization [facility] Address [address] [place] [address] Support Name Relationship Address Phone Kiom Spr[facility] Emergency Contact [address] [facility] [address] [place] [address] Care Team Providers Care Roll Picker Name Role Phone Makayla Sam DO Primary Care Pro vider Unavailable Anila Craven MD Primary Care Provider Un available Stacy Parry MD Primary Care Provider Unavail able Victoriano Smith MD Primary Care Provider Unava ilable Name, Matt APPIAH Primary Care Provider UnavailReyna Yañez MD Unavailable [phone] Chris Wallace PA-C Unavailable Latoya Hardy PA-C Unavailable [phone] Encounter Details Date Type Department Care Team Description 07/02/2016 [facility] Medical Records [address] [place] [address] Abstract, Provider Social History Tobacco Use Types [...] on filedocumented in this encounter Care Teams Roll Picker Relationship Specialty Start Date End Date Makayla Sam DO PCP - General Internal Medicine 10/10/14 09/02/16 Anila Craven MD PCP - General Internal Medicine 09/03/16 9 Stacy Parry MD PCP - General Internal Medicine 02/21/19 01/20/20 Victoriano Smith MD PCP - General Internal Medicine 01/21/20 07/07/22 Bryce, MD Matt PCP - General Internal Medicine 07/08/22 Reyna Laboy MD [address] [address] Specialist Neurosurgery 12/22/23 Chris Wallace PA-C [address] [phone] Specialist Neurosurgery 03/10/24 Latoya Hardy PA-C [address] [phone] Specialist Neurosurgery 03/10/24 documented as of this encounter
--- OUTSIDE RECORDS SUMMARY | 2024-10-25 15:53 | XMS_ITS | Encounter Summary ---
Author Organization [facility] Address [address] [place] [address] Support Name Relationship Address Phone Kimo Sprague Emergency Contact [address] [facility] [address] [place] [address] Care Team Providers Care C Python Developer Name Role Phone Makayla Sam DO Primary Care Pro vider Unavailable Anila Craven MD Primary Care Provider Un available Stacy Parry MD Primary Care Provider Unavail able Victoriano Smith MD Primary Care Provider Unava ilable Name, Matt APPIAH Primary Care Provider UnavailReyna Yañez MD Unavailable [phone] Chris Wallace PA-C Unavailable Latoya Hardy PA-C Unavailable Encounter Details Date Type Department Care Team Description 02/27/2015 Controlled Substance Contract with [facility] Medical Records [address] [place] [address] Abstract, Provider Social History Tobacco Use Types [...] on filedocumented in this encounter Care Teams C Python Developer Relationship Specialty Start Date End Date Makayla Sam DO PCP - General Internal Medicine 10/10/14 09/02/16 Anila Craven MD PCP - General Internal Medicine 09/03/16 9 Stacy Parry MD PCP - General Internal Medicine 02/21/19 01/20/20 Victoriano Smith MD PCP - General Internal Medicine 01/21/20 07/07/22 Matt Wu MD PCP - General Internal Medicine 07/08/22 Reyna Laboy MD [address] [phone] Specialist Neurosurgery 12/22/23 Chris Wallace PA-C [address] [address] Specialist Neurosurgery 03/10/24 Latoya Hardy PA-C [address] [address] Specialist Neurosurgery 03/10/24 documented as of this encounter
--- OUTSIDE RECORDS SUMMARY | 2024-10-25 15:53 | XMS_ITS | Encounter Summary ---
Author Organization [facility] Address [address] [place] [address] Support Name Relationship Address Phone Kimo Sprague Emergency Contact [address] [facility] [address] [place] [address] Care Team Providers Care Cloth Layer Name Role Phone Anila Craven MD Primary Care Provider Un available Stacy Parry MD Primary Care Provider Unavail able Victoriano Smith MD Primary Care Provider Unava ilable Name, Matt APPIAH Primary Care Provider UnavailReyna Yañez MD Unavailable [phone] Chris Wallace PA-C Unavailable Latoya Hardy-C Unavailable [phone] Reason for Visit * Reason Onset Date Comments Error 12/23/2016 Encounter Details Date Type Department Care Team Description 12/23/2016 Refill Adult [address] [address] Anila Craven MD Error Social History Tobacco [...] on filedocumented in this encounter Care Teams Cloth Layer Relationship Specialty Start Date End Date Anila Craven MD PCP - General Internal Medicine 09/03/16 9 Stacy Parry MD PCP - General Internal Medicine 02/21/19 01/20/20 Victoriano Smith MD PCP - General Internal Medicine 01/21/20 07/07/22 Matt Wu MD PCP - General Internal Medicine 07/08/22 Reyna Laboy MD [address] [phone] Specialist Neurosurgery 12/22/23 Chris Wallace PA-C [address] [address] Specialist Neurosurgery 03/10/24 Latoya Hardy PA-C [address] [address] Specialist Neurosurgery 03/10/24 documented as of this encounter
--- OUTSIDE RECORDS SUMMARY | 2024-10-25 15:53 | XMS_ITS | Encounter Summary ---
Author Organization [facility] Address [address] [place] [address] Support Name Relationship Address Phone Kimo Sprague Emergency Contact [address] [facility] [address] [place] [address] Care Team Providers Care Business Analyst Intern Name Role Phone Anila Craven MD Primary Care Provider Un available Stacy Parry MD Primary Care Provider Unavail able Victoriano Smith MD Primary Care Provider Unava ilable Matt Wu MD Primary Care Provider Unavailabl e Reyna Laboy MD Unavailable [phone] Chris WallaceC Unavailable Latoya Hardy PA-C Unavailable [phone] Encounter Details Date Type Department Care Team Description 07/07/2018 Siding Mechanic Report Medical Records [address] [place] [address] Geetha Noriega, MAT GAUGER Social History Tobacco Use Types Packs/Day Years [...] on filedocumented in this encounter Care Teams Business Analyst Intern Relationship Specialty Start Date End Date Anila Craven MD PCP - General Internal Medicine 09/03/16 9 Stacy Parry MD PCP - General Internal Medicine 02/21/19 01/20/20 Victoriano Smith MD PCP - General Internal Medicine 01/21/20 07/07/22 Matt Wu MD PCP - General Internal Medicine 07/08/22 Reyna Laboy MD [address] [address] Specialist Neurosurgery 12/22/23 Chris Wallace PA-C [address] [address] Specialist Neurosurgery 03/10/24 Latoya Hardy PA-C [address] [address] Specialist Neurosurgery 03/10/24 documented as of this encounter
--- OUTSIDE RECORDS SUMMARY | 2024-10-25 15:53 | XMS_ITS | Encounter Summary ---
Author Organization [employer] Address [address] [facility] 7t [place] [address] Care Team Providers Care Airplane Designer Name Role Phone Name, Matt APPIAH Primary Care Provider [phone] Reason for Visit * Reason Onset Date Comments Care Coordination 11/24/2023 [id number] ssessment Encounter Details Date Type Department Care Team ([facility] st Contact Info) Description 11/24/2023 Telephone [facility] [address] [place] [address] Estephanie Tan, RN Care Coordination ([id number] assessment) Social History Tobacco Use Types Packs/Day [...] past 12 months, has t he electric, [employer], oil or water [employer] threatened to shut off services in your [...] Member is a 53 year old female, Vietnamese speaking. Patient is alert andoriented x 3. [...] for her psoriasis. Reports she went to [facility] ER on 11/04/2023 for chest pain, dizziness, work up negative, ?Patient had follow up ED appointment with PCP11/06/2023. Patient stopped taking statin muscle discomfort. This was changed to Zetia 10mg daily. Also placed on Baclophen 10mg 2 times a day. Next PCP appointment is 12/18/2023. Care management program explained and contact information given. Patient verbalizes understanding, and able to repeat back to flex o writer operator. A follow up call will be placed [...] Description 11/30/2024 2:30 PM EDT Office Visit [facility] [address] [place] [address] Name, MD Matt [address] [place] [address] documented as of this encounter Visit Diagnoses Not on filedocumented in this encounter Additional Health Concerns Assessment Noted Time PHQ-9 Depression Total Score: 0 09/07/19 3:15 PM EDT documented as of this encounter Care Teams Airplane Designer Relationship Specialty Start Date End Date Name, MD Matt [address] [place] [address] PCP - General Family Medicine 02/21/22 Estephanie Tan Vendor Management AssociateDumper Bulk System 11/24/23 documented as of this encounter
--- OUTSIDE RECORDS SUMMARY | 2024-10-25 15:53 | XMS_ITS | Encounter Summary ---
Author Organization [facility] Address [address] [place] [address] Support Name Relationship Address Phone Kimo Sprague Emergency Contact [address] [place] [address] Care Team Providers Care Instantizer Operator Name Role Phone Anila Craven MD Primary Care Provider Un available Stacy Parry MD Primary Care Provider Unavail able Victoriano Smith MD Primary Care Provider Unava ilable Name, Matt APPIAH Primary Care Provider UnavailReyna Yañez MD Unavailable [phone] Chris Wallace PA-C Unavailable Latoya Hardy PA-C Unavailable Encounter Details Date Type Department Care Team Description 01/06/2019 Building Rental Manager Report Medical Records [address] [place] [address] [place] [address] [place], [place] [id number] Social History Tobacco Use Types Packs/Day Years [...] on filedocumented in this encounter Care Teams Instantizer Operator Relationship Specialty Start Date End Date Anila Craven MD PCP - General Internal Medicine 09/03/16 9 Stacy Parry MD PCP - General Internal Medicine 02/21/19 01/20/20 Victoriano Smith MD PCP - General Internal Medicine 01/21/20 07/07/22 Matt Wu MD PCP - General Internal Medicine 07/08/22 Reyna Laboy MD [address] [phone] Specialist Neurosurgery 12/22/23 Chris Wallace PA-C [address] [id number] Specialist Neurosurgery 03/10/24 Latoya Hardy PA-C [address] [address] Specialist Neurosurgery 03/10/24 documented as of this encounter
--- OUTSIDE RECORDS SUMMARY | 2024-10-25 15:53 | XMS_ITS | Encounter Summary ---
Author Organization [employer] Address [address] [facility] [address] [place] [address] Care Team Providers Care Mule Rider Name Role Phone Name, Matt APPIAH Primary Care Provider [phone] Encounter Details Date Type Department Care Team (Late st Contact Info) Description 08/05/[address] [facility] [address] [place], [place] [phone] Yolande Knight MD [address] [place] [address] Social History Tobacco Use Types Packs/Day Years [...] 11/30/2024 2:30 PM EDT Office Visit [facility] [address] [place] [phone] Name, MD Matt [address] [place] [phone] documented as of this encounter Visit Diagnoses Not on filedocumented in this encounter Additional Health Concerns Assessment Noted Time PHQ-9 Depression Total Score: 0 09/07/19 24 3:15 PM EDT documented as of this encounter Care Teams Mule Rider Relationship Specialty Start Date End Date NameMatt MD [address] [place] [id number] PCP - General Family Medicine 02/21/22 Estephanie Tan Fire Extinguisher InstallerClinic Mgr 11/24/23 documented as of this encounter
--- OUTSIDE RECORDS SUMMARY | 2024-10-25 15:53 | XMS_ITS | Encounter Summary ---
Author Organization [email or web address] Address [address] [facility] [address] [place] [address] Care Team Providers Care Telephone Directory Distributor Driver Name Role Phone Name, Matt APPIAH Primary Care Provider [phone] Reason for Visit * Reason Onset Date Comments Durable Medical Equipment 04/06/2024 Encounter Details Date Type Department Care Team ([facility] st Contact Info) Description 04/06/2024 Telephone [facility] [address] [place] [address] Name, MD Matt [address] [place], [place] [phone] Durable Medical Equipment Social History Tobacco Use [...] Description 11/30/2024 2:30 PM EDT Office Visit [facility] [address] [place] [address] Name, MD Matt [address] [place] [address] documented as of this encounter Visit Diagnoses Not on filedocumented in this encounter Additional Health Concerns Assessment Noted Time PHQ-9 Depression Total Score: 0 09/07/19 24 3:15 PM EDT documented as of this encounter Care Teams Telephone Directory Distributor Driver Relationship Specialty Start Date End Date Name, MD Matt [address] [place] [address] PCP - General Family Medicine 02/21/22 Estephanie Tan Licensed PsychologistCard Tender 11/24/23 documented as of this encounter
--- OUTSIDE RECORDS SUMMARY | 2024-10-25 15:53 | XMS_ITS | Clinical Summary ---
Author Organization [employer] Address [address] [facility] [address] [place] [address] Care Team Providers Care Pocket And Pulley Machine Operator Name Role Phone Name, Matt APPIAH Primary Care Provider [phone] Allergies Active Allergy Reactions Criticality Noted Date [...] every 12 (twelve) hours. 30 mL 12 Active mometasone (Elocon) 0.1 % ointment Apply [...] BY MOUTH ONCE DAILY 90 tablet 1 Active Synjardy 12.5-500 MG TAKE 1 TABLET [...] BEDTIME FOR SLEEP 30 tablet 025 Active zolpidem (Ambien) 10 MG tabletIndicatio ns:Insomnia, unspecified type TAKE 1 TABLET BY MOUTH EVERY NIGHT AT BEDTIME FOR SLEEP 30 tablet 025 2024 Discontinued Active Problems Problem Noted Date Diagnosed Date History of cervical spinal surgery 03/22/2024 Overview (03/22/2024): s/p C4-5 ACDF on 03/01/2024 C5-6, C6-7 ACDF with plating on 08/25/[address] Laboy at [facility] Class 2 obesity 11/06/2023 CLARA (generalized [...] agreed to referral. She requested referral in [facility]. Provided education around integrated medicine and the options of follow up BE's as needed. Provided contact information should questions or concerns arise. ?? Plan: Farrah will engage in effective coping mechanisms to manage sxs. Referral will be placed for Ind Therapy and Psychiatrist at [facility], per her request. 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 Hemorrhoids 06/04/2017 Overview (11/06/2023): Internal & external Nonalcoholic steatohepatitis (HURD) 06/04/2017 Insomnia 08/23/2015 Carpal tunnel syndrome 12/25/2014 Overview (01/01/2023): Bilateral - negative EMG at [place] 2014 Osteoarthritis 12/25/2014 Overview (01/01/2023): Hands, knees, [...] reflux disease) 2 Overview (01/01/2023): F/u [facility] H/o H.pylori x 3 Resolved Problems Problem [...] callus 04/13/2018 07/08/2023 Onychomycosis 03/23/2018 07/08/2023 Old CO (myocardial infarction) 12/25/2014 11/06/2023 Overview (01/01/2023): 1998/ Dr Perez 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 07/08/2023 Other psoriasis and similar disorders 12/03/2011 07/08/2023 Encounters Date Type Department Care Team Description 10/22/2024 Refill [facility] [address] [place] [address] Matt Wu MD Insomnia, unspecified type 09/21/2024 Refill [facility] [address] [place] [address] Matt Wu MD Insomnia, unspecified type 09/19/2024 Orders Only GENERIC EXTERNAL DATA DEPARTMENT Provider, Generic External Data 09/09/2024 Orders Only GENERIC EXTERNAL DATA DEPARTMENT Provider, Generic External Data 08/18/2024 Refill [facility] [address] [place] [address] Matt Wu MD Insomnia, unspecified type 08/15/2024 2:30 PM EST Office Visit [facility] [address] [place] [address] Matt Wu MD Type 2 diabetes mellitus with neurological manifestations, controlled ([facility]/HCC) (Primary Dx); Hypertension, unspecified type; High cholesterol; Vaccination refused by patient 08/15/2024 Travel 08/10/2024 Telephone [facility] [address] [place] [address] Matt Wu MD chartprep 08/08/2024 Telephone [facility] [address] [place] [address] Yolande Knight MD 08/05/2024 Orders Only [facility] [address] [place] [address] Yolande Knight MD 08/04/2024 3:20 PM EST Office Visit [facility] [address] [place] [phone] Yolande Knight MD Rash (Primary Dx); Primary hypertension 08/04/2024 Orders Only GENERIC EXTERNAL DATA DEPARTMENT Provider, Generic External Data 08/04/2024 Travel 08/04/2024 Telephone [facility] [address] [place] [address] Matt Wu MD Nurse Triage 07/28/2024 Orders Only GENERIC EXTERNAL DATA DEPARTMENT Provider, Generic External Data from Last 3 Months Immunizations Name Administration [...] your housing situation today? I have chiqui sing 12/18/[address] you li [...] Description 11/30/2024 2:30 PM EDT Office Visit [facility] [address] [place] [address] Name, MD Matt [address] [place] [address] Health Maintenance Due Date Last Done Comments [...] period is included. Triglycerides 129 <150 mg/dL [facility] Comment:Desirable Triglyceri de: less than 150 mg/dLBorderline High Triglyceride 150-199 mg/dLHigh Triglyceride: 200-499 mg/dLVery High Triglyceride: greater than or equal to 5OO mg/dL Cholesterol 98 <200 mg/dL [facility] Comment:Desirable Cholestero l: less than 200 mg/dLBorderline High Cholesterol: 200-239 mg/dLHigh Cholesterol: greater than 239 mg/dL LDL Cholesterol Calculated 34 <100 mg/dL [facility] Comment:Desirable LDL: less than 100 mg/dLNear Optimal/Above Optimal LDL: 110- 129 mg/dLBorderline High LDL: 130-159 mg/dLHigh LDL: 160-189 mg/dLVery High LDL: greater than or equal to 190 mg/dL HDL Cholesterol 39(L) >40 mg/dL [facility] Comment:Desirable HDL: great er than 40 mg/dL Note: This HDL assay may give artificially low results in patients with liver disease. 09/19/2024 2:03 PM EDT 09/19/2024 2:03 PM EDT us Generic External Data Provider LAB BLOOD ORDERAB LES Final Result Performing Organization Address City/State/[facility] Co de Phone Number [facility] [address] [place] [phone] * CT Abdomen Pelvis w/o Contrast (09/15/2024 4:48 PM EDT) Anatomical Region Laterality Modality Body, Pelvis, Abdomen Computed T omography 09/15/2024 4:48 PM EDT Narrative 09/15/2024 4:49 PM EDT ? [facility] ?[address] [facility]. ?[place] [address] ? CT Scan Report ? Signed ? Patient: Bc,Farrah ?MR#: [id number] ?? 3 ? : 1970 ?Acct:[id number] ? Age/Sex: 54 / F ?ADM Date: 04/02/25 ? Loc: HO.CT ? Attending Dr: Masood Meier MD ? Ordering Physician: Masood Meier MD ?? Date of Service: 09/14/24 ?? Procedure(s): CT abdomen pelvis wo IV con ?? Accession Number(s): [id number] ? cc: Masood Meier MD; Name,Matt APPIAH ? Report Number: ?? [id number]: Total DLP = ??934.00 mGy-cm ? CLINICAL HISTORY: N20.0 - Calculus of kidney ? CT abdomen and pelvis without contrast ? Comparison: CT/REG/NH/SR - CT ABDOMEN PELVIS WO IV CON [...] 1649 ? DD/ ? TD/TT: 09/15/248 ? Mechanical Commissioning Engineer: ? Procedure Note Divya, Image - 09/15/[address] [place] [address] [address] Scan Report Signed Patient: David Yancey#: [id number] 3 : 1970Acct:[id number] Age/Sex: 54 / FADM Date: 09/14/24 Loc: HO.CT Attending Dr: Masood Meier MD Ordering Physician: Masood Meier MD Date of Service: 09/14/24 Procedure(s): CT abdomen pelvis wo IV con Accession Number(s): [id number] cc: Masood Meier MD; Name,Matt APPIAH Report Number: [id number]: Total DLP = 934.00 mGy-cm CLINICAL HISTORY: N20.0 - Calculus of kidney CT abdomen and pelvis without contrast Comparison: CT/REG/NH/SR - CT ABDOMEN PELVIS WO IV CON [...] 09/15/24 1649 DD/ 1648 TD/TT: 09/15/24 1648 Mechanical Commissioning Engineer: [facility] External Provider IMG CT PROCEDURES Final Result * Helicobacter pylori, Urea Breath Test (09/09/2024 1:40 PM EDT) H. pylori Breath Test Positive Negative [facility] Comment:Antimicrobials, prot on pump inhibitors and bismuthpreparations are known to suppress H. pylori. Ingestingthese medications within two weeks prior to performing thebreath test may produce negative test results. A positiveresult is still clinically valid. 09/09/2024 1:40 PM EDT 09/09/2024 2:19 PM EDT Generic External Data Provider LAB BLOOD ORDERAB LES Final Result Performing Organization Address City/State/[facility] Co de Phone Number [facility] [address] [place] [phone] * (ABNORMAL) POCT HGB A1C (08/15/2024 [...] Blood Count 9.5 4.8 - 10.8 X10*3/uL [facility] Red Blood Count 5.20 4.20 - 5.50 X10*6/uL [facility] Hemoglobin 13.9 12.0 - 16.0 g/dl [facility] Hematocrit 43.9 37.0 - 47.0 % [facility] Mean Corpuscular Volume 84.4 80.0 - 98.0 fL [facility] Mean Corpuscular Hemoglobin 26.7(L) 27.0 - 33.0 pg [facility] Mean Corpuscular HGB Conc 31.7 31.0 - 35.0 g/dl [facility] Red Cell Distribution Width 13.8 11.0 - 16.0 % [facility] Platelet Count 317 160 - 400 X10*3/uL [facility] Mean Platelet Volume 10.4 9.4 - 12.3 fL [facility] Neutrophils Percent Auto 55.9 45 - 73 % [facility] Imm Gran Pct Auto 0.3 0.0 - 0.4 % [facility] Lymphocytes Percent Auto 32.2 20 - 40 % [facility] Monocytes Percent Auto 9.3 2 - 11 % [facility] Eosinophils Percent Auto 1.7 0 - 4 % [facility] Basophils Percent Auto 0.6 0 - 2 % [facility] NRBC Pct Auto 0.0 0.0 - 0.2 /100WBC [facility] Neutrophils Absolute Auto 5.3 2.0 - 8.3 x10*3/uL [facility] Imm Gran Abs Auto 0.03 0.00 - 0.03 X10*3/uL [facility] Lymphocytes Absolute Auto 3.1 1.2 - 4.9 X10*3/uL [facility] Monocytes Absolute Auto 0.9 0.1 - 1.2 X10*3/uL [facility] Eosinophils Absolute Auto 0.2 0.0 - 0.4 X10*3/uL [facility] Basophils Absolute Auto 0.1 0.0 - 0.2 X10*3/uL [facility] NRBC Abs Auto 0.000 0.0 - 0.012 X10*3/uL [facility] Blood Venous blood specimen / Unknown 08/04/2024 4:08 PM EST 08/04/2024 5:50 PM EST Yolande Victor MD LAB BLOOD ORDERABLES Final Result Performing Organization Address City/[facility]/ZIP Co de Phone Number [facility] [address] [place] [phone] * Partial Thromboplastin Time, Activated (APTT) (08/04/2024 4:08 PM EST) Partial Thromboplastin Time 30.4 26.0 - 36.8 SEC [facility] Comment:For information rega rding the monitoring of direct thrombininhibitors, please refer to Pharmacy. Blood Venous blood specimen / Unknown 08/04/2024 4:08 PM EST 08/04/2024 5:50 PM EST us Yolande Victor MD LAB BLOOD ORDERABLES Final Result [facility] [address] [place] [phone] * Sed Rate by Kristy Hobson (08/04/2024 4:08 PM EST) Erythrocyte Sedimentation Rate 19 0 - 20 MM/HR [facility] Comment:Patients with polycy themia and many hemoglobin abnormalitiesmay have depressed sed rates whereas patients with anemiamay have elevated sed rates. Blood Venous blood specimen / Unknown 08/04/2024 4:08 PM EST 08/04/2024 5:50 PM EST Yolande Victor MD LAB BLOOD ORDERABLES Final Result Performing Organization Address [facility] Co de Phone Number [facility] [address] [place] [phone] * Prothrombin Time-INR (08/04/2024 4:08 PM EST) Prothrombin Time 11.7 10.9 - 12.4 SEC [facility] INTERNATIONAL NORM RATIO 1.0 0.9 - 1.1 [facility] Comment:INTERNATIONAL NORMAL IZED RATIO (INR) [...] BLOOD ORDERABLES Final Result Performing Organization Address [facility] de Phone Number [facility] [address] [place] [phone] * (ABNORMAL) C-reactive Protein (08/04/2024 4:08 PM EST) C Reactive Protein 0.93(H) < or = 0.50 mg/dL [facility] Blood Venous blood specimen / Unknown 08/04/2024 4:08 PM EST 08/04/2024 5:50 PM EST Yolande Victor MD LAB BLOOD ORDERABLES Final Result [facility] [address] [place] [phone] [phone] * BIN Screen,IFA, with Reflex to Titer and Pattern (08/04/2024 4:08 PM EST) Pathologist [facility] Anti Nuclear Antibody Screen NEGATIVE NEGATIVE [facility] Comment:BIN IFA is a first [...] clinicallysuspected inflammatory myopathies.AC-0: NegativeInternational Consensus on BIN Patterns(https://doi.org/10.1515/nzap-5551-9691)For additional information, please refer tohttp://education.[employer]/faq/BGN962(This link is being provided for informational/educational purposes only.)THIS TEST WAS PERFORMED AT:[employer] [place] [phone] PATTERSON MD BIN Titer TNP [facility] BIN Pattern [facility] BIN TITER 2 (REF LAB) [facility] BIN Pattern 2 [facility] BIN TITER 3 [facility] BIN PATTERN 3 [facility] Blood Venous blood specimen / Unknown 08/04/2024 4:08 PM EST 08/04/2024 5:50 PM EST us Yolande Victor MD LAB BLOOD ORDERABLES Final Result [facility] [address] [place] [phone] * (ABNORMAL) Comprehensive Metabolic Panel (08/04/2024 4:08 PM EST) Pathologist [facility] Sodium 144 135 - 145 mmol/L [facility] Potassium 3.8 3.3 - 5.1 mmol/L [facility] Chloride 107 96 - 108 mmol/L [facility] Carbon Dioxide 30(H) 22 - 29 mmol/L [facility] Anion Gap 11(L) 12 - 20 [facility] Urea Nitrogen (BUN) 15 9 - 16 mg/dL [facility] Creatinine, Serum 0.70 0.5 - 1.4 mg/dL [facility] Estimated Glomerular Filt Rate >60 [facility] Comment:Chronic Kidney Disea se: Estimated GFR < 60 mL/min/1.70s5Wcxbof Kidney Disease: Estimated GFR < 15 mL/min/1.73m2 Glucose 89 60 - 115 mg/dL [facility] Calcium 9.4 8.4 - 10.2 mg/dL [facility] Bilirubin, Total 0.6 0.0 - 1.0 mg/dL [facility] Aspartate Amino Transferase 44(H) 5 - 31 U/L [facility] Alanine Aminotransferase 51(H) 0 - 31 U/L [facility] Total Protein 7.9 6.5 - 8.0 g/dL [facility] Albumin Level 4.1 3.5 - 5.0 g/dL [facility] Alkaline Phosphatase 131(H) 39 - 117 U/L [facility] Blood Venous blood specimen / Unknown 08/04/2024 4:08 PM EST 08/04/2024 5:50 PM EST us Yolande Victor MD LAB BLOOD ORDERABLES Final Result [facility] [address], [place] [phone] * Hematoxylin and Eosin Stain (07/28/2024 10:26 AM EST) 07/28/2024 10:2 6 AM EST 07/28/2024 11:14 AM EST Narrative [facility] - 08/02/2024 3:41 PM EST ----- ------- Name: Farrah Yancey ?Age/Sex: 54/F ? : 1970 Unit#: [id number] ?? Attend Dr: Marilyn Reddy MD ?Re07/28/24 ?Status: DEP SDC ? Location: HO.SSS ?Disch: ? ----- ------- SPEC : [id number] ?RECD: 07/28/24-1113 ? STATUS: ??SOUT ? REQ NUM: [id number] ? SARTHAK: 07/28/24-1025 ? SUBM DR: Marilyn Reddy MD ? ENTERED: ??07/28/24-1122 ?SP TYPE: Surgical ? OTHR DR: Name,Matt MD ? ORDERED: ??HE Stain/15, Gross Micro [...] Yancey ?Age/Sex: 54/F ? : 1970 Unit#: [id number] ?? Attend Dr: Marilyn Reddy MD ?Re07/28/24 ?Status: DEP SDC ? Location: HO.SSS ?Disch: ? ----- ------- SPEC : [id number] ?RECD: 07/28/24-1113 ? STATUS: ??SOUT ? REQ NUM: [id number] ? SARTHAK: 07/28/24-1026 ? SUBM DR: Marilyn [...] microscopic examination, 2 pieces in cassette E. ??[facility] Special studies ordered and performed: Immunostain for H. pylori on B; AB/PAS stains on A, B and C Copies To: ?? Marilyn Reddy MD ?? [facility] ?? [address] ?? [place] [address] ?? [phone] ?? Name,Matt APPIAH ?? [address] ?? [place] [address] ?? [phone] ----- ------- Signed (signature on file) Chris Hendrix MD 08/02/24 1541 ? ----- ------- ? END OF REPORT ? us Generic External Data Provider LAB BLOOD ORDERAB LES Final Result Performing Organization Address [facility] de Phone Number [facility] [address], [place] [phone] * (ABNORMAL) Glucose, Whole Blood (07/28/2024 9:36 AM EST) Glucose, Whole Blood 133(H) 60 - 115 mg/dL [facility] Comment:METER #: [id number] 07/28/2024 9:36 AM EST 07/28/2024 9:40 AM EST us Generic External Data Provider LAB BLOOD ORDERAB LES Final Result Performing Organization Address [facility] de Phone Number [facility] [address], [place] [phone] * BI Mammogram Screening Tomosynthesis Bilateral (05/27/2024 1:45 PM EST) Anatomical Region Laterality Modality Breast Bilateral Mammography 05/27/2024 1:4 5 PM EST Narrative 06/06/2024 4:29 PM EST ? [facility] ? [address] ?[place] [address] ? Mammography Report ? Signed ? Patient: Bc,Farrah ?MR#: [id number] ?? 3 ? : 1970 ?Acct:[id number] ? Age/Sex: 54 / F ?ADM Date: 12/13/24 ? Loc: HO.MAMMO ? Attending Dr: Matt Wu MD ? Ordering Physician: Matt Wu MD ?Results: 1Negative ? Date of Service: 05/27/24 ?Follow Up: 1 Year From Orig ?? inal Mammogram ? Procedure(s): MM tomosynthesis screening BI ?? Accession Number(s): [id number] ? cc: Bryce,Matt APPIAH ? EXAMINATION: ?? [...] DD/ 1345 ? TD/TT: 05/27/24 1408 ? Mechanical Commissioning Engineer: ? Procedure Note Donotuseinterpreter, Image - 06/06/2024 Howard [facility] [address] [place], [place] [address] Mammography Report Signed Patient: David Yancey#: [id number] 3 : 1970Acct:[id number] Age/Sex: 54 / FADM Date: 05/27/24 Loc: HO.MAMMO Attending Dr: Matt Wu MD Ordering Physician: Matt Wu MDResults: 1Negative Date of Service: 05/27/24Follow Up: 1 Year From Orig inal Mammogram Procedure(s): MM tomosynthesis screening BI Accession Number(s): [id number] cc: Matt Wu MD EXAMINATION: MM SCREENING [...] 06/06/24 1626 DD/ 1345 TD/TT: 05/27/24 1408 Mechanical Commissioning Engineer: us Matt Wu MD IMG BI PROCEDURES Final Result * HIV-1/2 Antigen and Antibodies, Fourth Generation, with Reflexes (12/21/2023 12:36 PM EDT) HIV AB/AG Nonreactive Nonreactive [facility] Comment:HIV-1 p24 Ag and/or HIV-1/HIV-2 Ab not detected.A test result that is nonreactive does not exclude thepossibility of exposure to or infection with HIV-1 and/orHIV-2. Nonreactive results in this assay for individualswith prior exposure to HIV-1 and/or HIV-2 may be due toantigen and antibody levels that are below the limit ofdetection of this assay.The [employer] HIV Ag/Ab Combo assay result andsupplemental assay results should be interpreted inconjunction with the patient's clinical presentation,history and other laboratory results. If the results areinconsistent with clinical evidence, additional testing issuggested to confirm the result. Blood Venous blood specimen / Unknown 12/21/2023 12:36 PM EDT 12/21/2023 12:36 PM EDT us Matt Wu MD LAB BLOOD ORDERABLES Final Resul t [facility] [address] [place] [phone] * Albumin, Random Urine W/Creatinine (09/09/2023 12:24 PM EDT) Creatinine, Urine 120.92 mg/dL [facility] Microalbumin Urine 6.0 mg/L [facility] Microalbum Creatinine Ratio Ur 4.9 <30 ug/mg cr [facility] Comment:Albumin/Creatinine R atio Reference Ranges: Normal: < 30 ug/mg creatinine Microalbuminuria: 30 - 300 ug/mg creatinineClinical Albuminuria: > 300 ug/mg creatinine Urine (Urine, Random) 09/09/2023 12:24 PM EDT 09/09/2023 2:10 PM EDT Matt Wu MD LAB URINE ORDERABLES Final Resul t Performing Organization Address [facility] Co de Phone Number [facility] [address] [place] [phone] * Hepatitis Panel, General (05/26/2022 4:23 PM EST) Hepatitis A IgM Nonreactive Nonreactive [facility] Comment:IgM antibodies to TORRES V not detected; does not exclude earlyacute or recovered HAV infection. ~Hepatitis B Surface Antibody NONREACTIVE Nonreactive [facility] Comment:Nonreactive: < 8.00 mIU/mL Hepatitis B Core Antibody Nonreactive Nonreactive [facility] Hepatitis C Antibody Nonreactive Nonreactive [facility] Comment:Antibodies to HCV no t detected; does not exclude early acuteHCV infection. Hepatitis B Surface Antigen Negative Negative [facility] 05/26/2022 4:23 PM EST 05/26/2022 4:23 PM EST [facility] External Provider LAB BLO OD ORDERABLES Final Result Performing Organization Address [facility] Co de Phone Number [facility] [address] [place] [phone] * Hm Pap Smear (05/17/2021) Pap Negative for intraephithelial lesion or malignancy Negative for intraephithelial lesion or malignancy, Other HPV Not Detected Undetected, Indeterminate, Quantitative, Not Detected Historical Provider HEALTH MAINTENANCE Final Result from Last 3 Months or Most Recently Relevant to Health Maintenance Insurance [facility] C3 Care Teams Pocket And Pulley Machine Operator Relationship Specialty Start Date End Date Name, MD Matt [address] [place] [address] PCP - General Family Medicine 02/21/22 Estephanie Tan Electrical Electronics TechnicianYardage Control Operator 11/24/23
--- OUTSIDE RECORDS SUMMARY | 2024-10-25 15:53 | XMS_ITS | Encounter Summary ---
Author Organization [facility] Address [address] [place] [address] Support Name Relationship Address Phone Kimo Sprague Emergency Contact [address] [place] [address] Care Team Providers Care Communications Marketing Intern Name Role Phone Anila Craven MD Primary Care Provider Un available Stacy Parry MD Primary Care Provider Unavail able Victoriano Smith MD Primary Care Provider Unava ilable Name, Matt APPIAH Primary Care Provider Unavailabl e Reyna Laboy MD Unavailable [phone] Chris Wallace PA-C Unavailable Latoya Hardy PA-C Unavailable [phone] Encounter Details Date Type Department Care Team Description 07/17/2017 Retail Loan Originator Assistant Report Medical Records [address] [place] [address] Abstract, Provider Social History Tobacco Use Types [...] on filedocumented in this encounter Care Teams Communications Marketing Intern Relationship Specialty Start Date End Date Anila Craven MD PCP - General Internal Medicine 09/03/16 9 Stacy Parry MD PCP - General Internal Medicine 02/21/19 01/20/20 Victoriano Smith MD PCP - General Internal Medicine 01/21/20 07/07/22 Matt Wu MD PCP - General Internal Medicine 07/08/22 Reyna Laboy MD [address] [address] Specialist Neurosurgery 12/22/23 Chris Wallace PA-C [address] [address] Specialist Neurosurgery 03/10/24 Latoya Hardy PA-C [address] [address] Specialist Neurosurgery 03/10/24 documented as of this encounter
--- OUTSIDE RECORDS SUMMARY | 2024-10-25 15:54 | XMS_ITS | Encounter Summary ---
Author Organization [facility] Address [address] [place] [address] Support Name Relationship Address Phone Kimo Sprague Emergency Contact [address] [facility] [address] [place] [address] Care Team Providers Care Manager Food Name Role Phone Makayla Sam DO Primary Care Pro vider Unavailable Anila Craven MD Primary Care Provider Un available Stacy Parry MD Primary Care Provider Unavail able Victoriano Smith MD Primary Care Provider Unava ilable Name, Matt APPIAH Primary Care Provider UnavailReyna Yañez MD Unavailable [phone] Chris Wallace PA-C Unavailable Latoya Hardy PA-C Unavailable [phone] Encounter Details Date Type Department Care Team Description 04/30/2016 Boilermaker Mechanic Report Medical Records [address] [place] [address] Abstract, Provider Social History Tobacco Use Types [...] filedocumented in this encounter Care Teams Manager Food Relationship Specialty Start Date End Date Makayla Sam DO PCP - General Internal Medicine 10/10/14 09/02/16 Anila Craven MD PCP - General Internal Medicine 09/03/16 9 Stacy Parry MD PCP - General Internal Medicine 02/21/19 01/20/20 Victoriano Smith MD PCP - General Internal Medicine 01/21/20 07/07/22 Matt Wu MD PCP - General Internal Medicine 07/08/22 Reyna Laboy MD [address] [id number] Specialist Neurosurgery 12/22/23 Chris Wallace PA-C [address] [id number] Specialist Neurosurgery 03/10/24 Latoya Hardy PA-C [address] [id number] Specialist Neurosurgery 03/10/24 documented as of this encounter
--- OUTSIDE RECORDS SUMMARY | 2024-10-25 15:54 | XMS_ITS | Encounter Summary ---
Author Organization [facility] Address [address] [place] [address] Support Name Relationship Address Phone Kimo Sprague Emergency Contact [address] [facility] [address] [place] [address] Care Team Providers Care Hoop Coiler Name Role Phone Anila Craven MD Primary Care Provider Un available Stacy Parry MD Primary Care Provider Unavail able Victoriano Smith MD Primary Care Provider Unava ilable Bryce, Matt APPIAH Primary Care Provider UnavailReyna Yañez MD Unavailable [phone] Chris WallaceC Unavailable Latoya Hardy PA-C Unavailable Reason for Visit * Reason Onset Date Comments Prior Authorization 08/20/2017 Encounter Details Date Type Department Care Team Description 08/20/2017 Telephone Adult Medicine [address] [address] Anila Craven MD Prior Authorization Social History [...] 3:56 PM EST She already switched to [employer], she will get a 7 day supply [...] Pharmacy did the fax come from: [facility] Pharmacy fax #: [phone] [employer] Information from fax: What Prescription Plan does the patient have? BIN/PCN if applicable: Cardholder ID: Person Code: Relationship Code: Help desk phone: documented in this encounter Plan of Treatment Not on file documented as of this encounter Visit Diagnoses Not on filedocumented in this encounter Care Teams Hoop Coiler Relationship Specialty Start Date End Date Anila Craven MD PCP - General Internal Medicine 09/03/16 9 Stacy Parry MD PCP - General Internal Medicine 02/21/19 01/20/20 Victoriano Smith MD PCP - General Internal Medicine 01/21/20 07/07/22 Matt Wu MD PCP - General Internal Medicine 07/08/22 Reyna Laboy MD [address] [address] Specialist Neurosurgery 12/22/23 Chris Wallace PA-C [address] [address] Specialist Neurosurgery 03/10/24 Latoya Hardy PA-C [address] [address] Specialist Neurosurgery 03/10/24 documented as of this encounter
--- OUTSIDE RECORDS SUMMARY | 2024-10-25 15:54 | XMS_ITS | Encounter Summary ---
Author Organization [facility] Address [address] [place] [address] Support Name Relationship Address Phone Kimo Sprague Emergency Contact [address] [facility] [address] [place] [address] Care Team Providers Care Car Salesman Name Role Phone Anila Craven MD Primary Care Provider Un available Stacy Parry MD Primary Care Provider Unavail able Victoriano Smith MD Primary Care Provider Unava ilable Matt Wu MD Primary Care Provider Unavailabl e Reyna Laboy MD Unavailable [phone] Chris WallaceC Unavailable [phone] Latoya Hardy PA-C Unavailable Encounter Details Date Type Department Care Team Description 08/28/2017 Telephone [facility] - [address] [address] Anila Craven MD Social History Tobacco Use [...] on filedocumented in this encounter Care Teams Car Salesman Relationship Specialty Start Date End Date Anila Craven MD PCP - General Internal Medicine 09/03/16 9 Stacy Parry MD PCP - General Internal Medicine 02/21/19 01/20/20 Victoriano Smith MD PCP - General Internal Medicine 01/21/20 07/07/22 Matt Wu MD PCP - General Internal Medicine 07/08/22 Reyna Laboy MD [address] [address] Specialist Neurosurgery 12/22/23 Chris Wallace PA-C [address] [address] Specialist Neurosurgery 03/10/24 Latoya Hardy PA-C [address] [address] Specialist Neurosurgery 03/10/24 documented as of this encounter
--- OUTSIDE RECORDS SUMMARY | 2024-10-25 15:54 | XMS_ITS | Encounter Summary ---
Author Organization [employer] Address [address] [facility] 7t [place] [address] Care Team Providers Care Senior Buyer Planner Name Role Phone Name, Matt APPIAH Primary Care Provider [phone] Reason for Visit * Reason Comments Med Refill Encounter Details Date Type Department Care Team ([facility] st Contact Info) Description 10/22/2024 Refill [facility] [address] [place], [place] [phone] Name, MD Matt [address] [place], [place] [phone] Insomnia, unspecified type Social History Tobacco Use [...] 11/30/2024 2:30 PM EDT Office Visit [facility] [address] [place] [address] Name, MD Matt [address] [place] [address] documented as of this encounter Visit Diagnoses Diagnosis Insomnia, unspecified type documented in this encounter Additional Health Concerns Assessment Noted Time PHQ-9 Depression Total Score: 0 09/07/19 24 3:15 PM EDT documented as of this encounter Care Teams Senior Buyer Planner Relationship Specialty Start Date End Date NameMatt MD [address] [place] [address] PCP - General Family Medicine 02/21/22 Estephanie Tan Shot ExaminerPower Electronics Research Engineer 11/24/23 documented as of this encounter
--- OUTSIDE RECORDS SUMMARY | 2024-10-25 15:54 | XMS_ITS | Encounter Summary ---
Author Organization [facility] Address [address] [place] [address] Support Name Relationship Address Phone Kimo Sprague Emergency Contact [address] [facility] [address] [place] [address] Care Team Providers Care Director Digital Strategy Name Role Phone Stacy Parry MD Primary Care Provider Unavail able Victoriano Smith MD Primary Care Provider Unava ilable Matt Wu MD Primary Care Provider UnavailReyna Yañez MD Unavailable [phone] Chris Wallace PA-C Unavailable [phone] Latoya Hardy PA-C Unavailable [phone] Encounter Details Date Type Department Care Team Description 10/27/2019 Cable Assembler And Swager Report Medical Records [address] [place] [address] Fly Vogt MD Social History Tobacco Use [...] filedocumented in this encounter Care Teams Director Digital Strategy Relationship Specialty Start Date End Date Stacy Parry MD PCP - General Internal Medicine 02/21/19 01/20/20 Victoriano Smith MD PCP - General Internal Medicine 01/21/20 07/07/22 Matt Wu MD PCP - General Internal Medicine 07/08/22 Reyna Laboy MD 175 [facility] [address] [place], [place] [phone] Specialist Neurosurgery 12/22/23 Chris Wallace PA-C [address] [facility] [address] [place] [id number] Specialist Neurosurgery 03/10/24 Latoya Hardy PA-C [address] [address] Specialist Neurosurgery 03/10/24 documented as of this encounter
--- OUTSIDE RECORDS SUMMARY | 2024-10-25 15:54 | XMS_ITS | Encounter Summary ---
Author Organization [facility] Address [address] [place] [address] Support Name Relationship Address Phone Kimo Sprague Emergency Contact [address] [facility] [address] [place] [address] Care Team Providers Care Emergency Dispatch Operator Name Role Phone Makayla Sam DO Primary Care Pro vider Unavailable Anila Craven MD Primary Care Provider Un available Stacy Parry MD Primary Care Provider Unavail able Victoriano Smith MD Primary Care Provider Unava ilable Name, Matt APPIAH Primary Care Provider UnavailReyna Yañez MD Unavailable [phone] Chris Wallace PA-C Unavailable Latoya Hardy PA-C Unavailable [phone] Encounter Details Date Type Department Care Team Description 04/17/2016 Elevator Adjuster Report Medical Records [address] [place] [address] Joana Chu MD Social History Tobacco Use [...] on filedocumented in this encounter Care Teams Emergency Dispatch Operator Relationship Specialty Start Date End Date Makayla Sam DO PCP - General Internal Medicine 10/10/14 09/02/16 Anila Craven MD PCP - General Internal Medicine 09/03/16 9 Stacy Parry MD PCP - General Internal Medicine 02/21/19 01/20/20 Victoriano Smith MD PCP - General Internal Medicine 01/21/20 07/07/22 Matt Wu MD PCP - General Internal Medicine 07/08/22 Reyna Laboy MD [address] [address] Specialist Neurosurgery 12/22/23 Chris Wallace PA-C 175 [facility] [address] [place] [address] Specialist Neurosurgery 03/10/24 Latoya Hardy PA-C [address] [address] Specialist Neurosurgery 03/10/24 documented as of this encounter
--- OUTSIDE RECORDS SUMMARY | 2024-10-25 15:54 | XMS_ITS | Encounter Summary ---
Author Organization [facility] Address [address] [place] [address] Support Name Relationship Address Phone Kimo Sprague Emergency Contact [address] [facility] [address] [place] [address] Care Team Providers Care Cabinet Assembler Name Role Phone Makayla Sam DO Primary Care Pro vider Unavailable Anila Craven MD Primary Care Provider Un available Stacy Parry MD Primary Care Provider Unavail able Victoriano Smith MD Primary Care Provider Unava ilable Name, Matt APPIAH Primary Care Provider UnavailReyna Yañez MD Unavailable [phone] Chris Wallace PA-C Unavailable [phone] Latoya Hardy PA-C Unavailable [phone] Encounter Details Date Type Department Care Team Description 06/17/2016 Airport Driver Report Medical Records [address] [place] [address] Estephanie Man FNP Social History Tobacco Use [...] on filedocumented in this encounter Care Teams Cabinet Assembler Relationship Specialty Start Date End Date Makayla Sam DO PCP - General Internal Medicine 10/10/14 09/02/16 Anila Craven MD PCP - General Internal Medicine 09/03/16 9 Stacy Parry MD PCP - General Internal Medicine 02/21/19 01/20/20 Victoriano Smith MD PCP - General Internal Medicine 01/21/20 07/07/22 Matt Wu MD PCP - General Internal Medicine 07/08/22 Reyna Laboy MD [address] [address] Specialist Neurosurgery 12/22/23 Chris Wallace PA-C [address] [address] Specialist Neurosurgery 03/10/24 Latoya Hardy PA-C [address] [address] Specialist Neurosurgery 03/10/24 documented as of this encounter
--- OUTSIDE RECORDS SUMMARY | 2024-10-25 15:54 | XMS_ITS | Encounter Summary ---
Author Organization [facility] Address [address] [place] [address] Support Name Relationship Address Phone Kimo Sprague Emergency Contact [address] [facility] [address] [place] [address] Care Team Providers Care Manager Code Name Role Phone Stacy Parry MD Primary Care Provider Unavail able Victoriano Smith MD Primary Care Provider Unava ilable Name, Matt APPIAH Primary Care Provider UnavailReyna Yañez MD Unavailable [phone] Chris Wallace PA-C Unavailable [phone] Latoya Hardy PA-C Unavailable Reason for Visit * Reason Onset Date Comments refill request 11/22/2019 Encounter Details Date Type Department Care Team Description 11/22/2019 Refill Adult Medicine [address] [address] Stacy Parry MD refill request Social History [...] N/A Patients current insurance carrier is: Payor: [employer] FFS / Plan: [employer] [facility] / Product Type: MEDICAID RISK documented in this encounter Plan of Treatment Not on file documented as of this encounter Visit Diagnoses Not on filedocumented in this encounter Care Teams Manager Code Relationship Specialty Start Date End Date Stacy Parry MD PCP - General Internal Medicine 02/21/19 01/20/20 Victoriano Smith MD PCP - General Internal Medicine 01/21/20 07/07/22 Name, MD Matt PCP - General Internal Medicine 07/08/22 Reyna Laboy MD [address] [place] [address] [place] [address] Specialist Neurosurgery 12/22/23 Chris Wallace PA-C 175 [facility] [address] [place] [address] Specialist Neurosurgery 03/10/24 Latoya Hardy PA-C [address] [address] Specialist Neurosurgery 03/10/24 documented as of this encounter
--- OUTSIDE RECORDS SUMMARY | 2024-10-25 15:54 | XMS_ITS | Encounter Summary ---
Author Organization [employer] Address [address] [facility] 7t [place] [address] Care Team Providers Care Waste Management Recycling Technician Name Role Phone Name, Matt APPIAH Primary Care Provider [phone] Reason for Visit * Reason Onset Date Comments triage 09/18/2022 Encounter Details Date Type Department Care Team ([facility] st Contact Info) Description 09/18/2022 Telephone [facility] [address] [place], [place] [phone] Name, MD Matt [address] [place], [place] [phone] triage Social History Tobacco Use Types Packs/Day [...] The caller accepted this outcome pt speaks wolof documented in this encounter Plan of Treatment Upcoming Encounters Date Type Department Care Team (Late st Contact Info) Description 11/30/2024 2:30 PM EDT Office Visit [facility] [address] [place] [address] Name, MD Matt [address] [place] [address] documented as of this encounter Visit Diagnoses Not on filedocumented in this encounter Care Teams Waste Management Recycling Technician Relationship Specialty Start Date End Date NameMatt MD [address] [place] [address] PCP - General Family Medicine 02/21/22 Estephanie Tan Farmworker Fryer FarmCase Checker 11/24/23 documented as of this encounter
--- OUTSIDE RECORDS SUMMARY | 2024-10-25 15:54 | XMS_ITS | Encounter Summary ---
Author Organization [facility] Address [address] [place] [address] Support Name Relationship Address Phone Kimo Sprague Emergency Contact [address] [facility] [address] [place] [address] Care Team Providers Care Information Developer Name Role Phone Makayla Sam DO Primary Care Pro vider Unavailable Anila Craven MD Primary Care Provider Un available Stacy Parry MD Primary Care Provider Unavail able Victoriano Smith MD Primary Care Provider Unava ilable Name, Matt APPIAH Primary Care Provider UnavailReyna Yañez MD Unavailable [phone] Chris Wallace PA-C Unavailable [phone] Latoya Hardy PA-C Unavailable Encounter Details Date Type Department Care Team Description 05/02/2016 [facility] Medical Records [address] [place] [address] Abstract, Provider Social History Tobacco Use Types [...] on filedocumented in this encounter Care Teams Information Developer Relationship Specialty Start Date End Date Makayla Sam DO PCP - General Internal Medicine 10/10/14 09/02/16 Anila Craven MD PCP - General Internal Medicine 09/03/16 9 Stacy Parry MD PCP - General Internal Medicine 02/21/19 01/20/20 Victoriano Smith MD PCP - General Internal Medicine 01/21/20 07/07/22 Bryce, MD Matt PCP - General Internal Medicine 07/08/22 Reyna Laboy MD [address] [phone] Specialist Neurosurgery 12/22/23 Chris Wallace PA-C [address] [address] Specialist Neurosurgery 03/10/24 Latoya Hardy PA-C [address] [address] Specialist Neurosurgery 03/10/24 documented as of this encounter
--- OUTSIDE RECORDS SUMMARY | 2024-10-25 15:54 | XMS_ITS | Encounter Summary ---
Author Organization [employer] Address 75 [facility] 7t [place] [address] Care Team Providers Care Surgical Supply Assistant Name Role Phone Name, Matt APPIAH Primary Care Provider [phone] Reason for Visit * Reason Onset Date Comments Med Refill 06/22/2024 Encounter Details Date Type Department Care Team ([facility] st Contact Info) Description 06/22/2024 Telephone [facility] [address] [place] [address] Name, MD Matt [address] [place], [place] [phone] Med Refill Social History Tobacco Use Types [...] 10 MG tablet To be sent to: [facility] - [place], [place] - [phone] - [place] - [address] documented in this encounter Plan of Treatment Upcoming Encounters Date Type Department Care Team (Late st Contact Info) Description 11/30/2024 2:30 PM EDT Office Visit [facility] [address] [place] [address] NameMatt MD [address] [place] [address] documented as of this encounter Visit Diagnoses Not on filedocumented in this encounter Additional Health Concerns Assessment Noted Time PHQ-9 Depression Total Score: 0 09/07/19 24 3:15 PM EDT documented as of this encounter Care Teams Surgical Supply Assistant Relationship Specialty Start Date End Date NameMatt MD [address] [place] [address] PCP - General Family Medicine 02/21/22 Estephanie Tan Axle Bearing PolisherCampaign Management Specialist 11/24/23 documented as of this encounter
== END 2024-10-25 15:00 | disposition home or self-care (01) ==
LOC: HO.HWS 14:48
PROVIDERS: PCP Internal Medicine Geriatric Medicine; Visit Provider Advanced Practice Midwife
DX: Z01.419 Encounter for gynecological examination (general) (routine) without abnormal findings (principal); R10.2 Pelvic and perineal pain
CPT/HCPCS: 99396; 99459

== ENCOUNTER 2024-10-25 14:48 | Outpatient (REF) | payer MEDICAID, SELFPAY ==
--- OUTSIDE RECORDS SUMMARY | 2024-10-25 16:18 | XMS_ITS | Encounter Summary ---
Author Organization [facility] Address [address] [place] [address] Support Name Relationship Address Phone Kimo Sprague Emergency Contact [address] [facility] [address] [place] [address] Care Team Providers Care Paint Mixer Machine Name Role Phone Stacy Parry MD Primary Care Provider Unavail able Victoriano Smith MD Primary Care Provider Unava ilable Name, Matt APPIAH Primary Care Provider UnavailReyna Yañez MD Unavailable [phone] Chris Wallace PA-C Unavailable Latoya Hardy PA-C Unavailable [phone] Reason for Visit * Reason Onset Date Comments Pre-visit Diabetes Lab Adult Medicine 06/16/2019 Dm due on 06/29/19 at 300pm Encounter Details Date Type Department Care Team Description 06/16/2019 Telephone Respiratory and Diabetes Medicaid/ACO Pharmacist [address] [place] [address] Stacy Parry MD Pre-visit Diabetes Lab Adult [...] ask that any orders entered by the [facility] Medicaid staff be associated with a diabetes diagnosis. You can use any diabetes diagnosis found on the problem list. Crissy Wing Community Health Worker [facility] Plan [facility] W [phone] F [phone] documented in this encounter Plan of Treatment Not on file documented as of this encounter Results * (ABNORMAL) HEMOGLOBIN A1C (08/27/2019 11:09 AM EDT) GLYCATED HEMOGLOBIN A1C 6.6(H) <6.5 % 08/28/2019 10:09 AM EDT [facility] [employer] ESTIMATED AVERAGE GLUCOSE 143 mg/dL 08/28/2019 10:09 AM EDT [facility] 08/27/2019 11:0 9 AM EDT 08/27/2019 11:09 AM EDT Stacy Parry MD LAB [facility] [employer] documented in this encounter Visit Diagnoses Diagnosis Type 2 diabetes mellitus with neurological manifestations, controlled (HCC)- Primary Type II or unspecified type diabetes mellitus with neurological manifestations, not stated as uncontrolled documented in this encounter Care Teams Paint Mixer Machine Relationship Specialty Start Date End Date Stacy Parry MD PCP - General Internal Medicine 02/21/19 01/20/20 Victoriano Smith MD PCP - General Internal Medicine 01/21/20 07/07/22 Matt Wu MD PCP - General Internal Medicine 07/08/22 Reyna Laboy MD [address] [address] Specialist Neurosurgery 12/22/23 Chris Wallace PA-C 175 [facility] [address] [place] [address] Specialist Neurosurgery 03/10/24 Latoya Hardy PA-C [address] [place] [address] Specialist Neurosurgery 03/10/24 documented as of this encounter
--- OUTSIDE RECORDS SUMMARY | 2024-10-25 16:18 | XMS_ITS | Encounter Summary ---
Author Organization [facility] Address [address] [place] [address] Support Name Relationship Address Phone Kimo Sprague Emergency Contact [address] [facility] [address] [place] [address] Care Team Providers Care Alpaca Farmer Name Role Phone Anila Craven MD Primary Care Provider Un available Stacy Parry MD Primary Care Provider Unavail able Victoriano Smith MD Primary Care Provider Unava ilable Matt Wu MD Primary Care Provider Unavailabl e Reyna Laboy MD Unavailable [phone] Chris WallaceC Unavailable Latoya Hardy PA-C Unavailable [phone] Encounter Details Date Type Department Care Team Description 12/06/2018 Sales And Service Representative Report Medical Records [address] [place] [address] Catrachito Grady Social History Tobacco Use Types [...] on filedocumented in this encounter Care Teams Alpaca Farmer Relationship Specialty Start Date End Date Anila Craven MD PCP - General Internal Medicine 09/03/16 9 Stacy Parry MD PCP - General Internal Medicine 02/21/19 01/20/20 Victoriano Smith MD PCP - General Internal Medicine 01/21/20 07/07/22 Matt Wu MD PCP - General Internal Medicine 07/08/22 Reyna Laboy MD [address] [address] Specialist Neurosurgery 12/22/23 Chris Wallace PA-C [address] [address] Specialist Neurosurgery 03/10/24 Latoya Hardy PA-C [address] [address] Specialist Neurosurgery 03/10/24 documented as of this encounter
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
--- OUTSIDE RECORDS SUMMARY | 2024-10-25 16:18 | XMS_ITS | Encounter Summary ---
Author Organization [facility] Address [address] [place] [address] Support Name Relationship Address Phone Kimo Sprague Emergency Contact [address] [place] [address] Care Team Providers Care Non Linear Editor Name Role Phone Makayla Sam DO Primary Care Pro vider Unavailable Anila Craven MD Primary Care Provider Un available Stacy Parry MD Primary Care Provider Unavail able Victoriano Smith MD Primary Care Provider Unava ilable Bryce, Matt APPIAH Primary Care Provider UnavailReyna Yañez MD Unavailable [phone] Chris Wallace PA-C Unavailable Latoya Hardy PA-C Unavailable Encounter Details Date Type Department Care Team Description 07/09/2016 Telephone Adult [address] [address] Makayla Sam DO Social History Tobacco Use [...] on filedocumented in this encounter Care Teams Non Linear Editor Relationship Specialty Start Date End Date Makayla Sam DO PCP - General Internal Medicine 10/10/14 09/02/16 Anila Craven MD PCP - General Internal Medicine 09/03/16 9 Stacy Parry MD PCP - General Internal Medicine 02/21/19 01/20/20 Victoriano Smith MD PCP - General Internal Medicine 01/21/20 07/07/22 Name, MD Matt PCP - General Internal Medicine 07/08/22 Reyna Laboy MD [address] [address] Specialist Neurosurgery 12/22/23 Chris Wallace PA-C [address] [facility] [address] [place] [address] Specialist Neurosurgery 03/10/24 Latoya Hardy PA-C [address] [address] Specialist Neurosurgery 03/10/24 documented as of this encounter
--- OUTSIDE RECORDS SUMMARY | 2024-10-25 16:18 | XMS_ITS | Encounter Summary ---
Author Organization [facility] Address [address] [place] [address] Support Name Relationship Address Phone Kimo Sprague Emergency Contact [address] [facility] [address] [place] [address] Care Team Providers Care Lvn Name Role Phone Anila Craven MD Primary Care Provider Un available Stacy Parry MD Primary Care Provider Unavail able Victoriano Smith MD Primary Care Provider Unava ilable Matt Wu MD Primary Care Provider Unavailabl e Reyna Laboy MD Unavailable [phone] Chris Wallace PA-C Unavailable Latoya Hardy PA-C Unavailable [phone] Encounter Details Date Type Department Care Team Description 04/24/2017 [facility] Medical Records [address] [place] [id number] [place] [address] Social History Tobacco Use Types Packs/Day Years [...] on filedocumented in this encounter Care Teams Lvn Relationship Specialty Start Date End Date Anila Craven MD PCP - General Internal Medicine 09/03/16 9 Stacy Parry MD PCP - General Internal Medicine 02/21/19 01/20/20 Victoriano Smith MD PCP - General Internal Medicine 01/21/20 07/07/22 Matt Wu MD PCP - General Internal Medicine 07/08/22 Reyna Laboy MD [address] [address] Specialist Neurosurgery 12/22/23 Chris Wallace PA-C [address] [address] Specialist Neurosurgery 03/10/24 Latoya Hardy PA-C [address] [address] Specialist Neurosurgery 03/10/24 documented as of this encounter
--- OUTSIDE RECORDS SUMMARY | 2024-10-25 16:18 | XMS_ITS | Encounter Summary ---
Author Organization [employer] [facility] Address [address] [place] [address] Support Name Relationship Address Phone Kimo Sprague Emergency Contact [address] [place] [address] Care Team Providers Care Harbour Master Name Role Phone Anila Craven MD Primary Care Provider Un available Stacy Parry MD Primary Care Provider Unavail able Victoriano Smith MD Primary Care Provider Unava ilable Bryce, Matt APPIAH Primary Care Provider UnavailReyna Yañez MD Unavailable [phone] Chris WallaceC Unavailable [phone] Latoya Hardy-Trevor Unavailable Reason for Visit * Reason Onset Date Comments dizziness 04/23/2017 Encounter Details Date Type Department Care Team Description 04/23/2017 Telephone Adult Medicine [address] [address] Anila Craven MD dizziness Social History Tobacco [...] Craven Payor: [employer] MEDICAID / Plan: [facility] MEDICAID HMO $0 [place] / Product Type: HMO [id number] documented in this encounter Plan of Treatment Not on file documented as of this encounter Visit Diagnoses Not on filedocumented in this encounter Care Teams Harbour Master Relationship Specialty Start Date End Date Anila Craven MD PCP - General Internal Medicine 09/03/16 9 Stacy Parry MD PCP - General Internal Medicine 02/21/19 01/20/20 Victoriano Smith MD PCP - General Internal Medicine 01/21/20 07/07/22 Matt Wu MD PCP - General Internal Medicine 07/08/22 Reyna Laboy MD [address] [address] Specialist Neurosurgery 12/22/23 Chris Wallace PA-C [address] [address] Specialist Neurosurgery 03/10/24 Latoya Hardy PA-C [address] [address] Specialist Neurosurgery 03/10/24 documented as of this encounter
--- OUTSIDE RECORDS SUMMARY | 2024-10-25 16:18 | XMS_ITS | Encounter Summary ---
Author Organization [facility] Address [address] [place] [address] Support Name Relationship Address Phone Kimo Sprague Emergency Contact [address] [place] [address] Care Team Providers Care House Painting Instructor Name Role Phone Makayla Sam DO Primary Care Pro vider Unavailable Anila Craven MD Primary Care Provider Un available Stacy Parry MD Primary Care Provider Unavail able Victoriano Smith MD Primary Care Provider Unava ilable Name, Matt APPIAH Primary Care Provider UnavailReyna Yañez MD Unavailable [phone] Chris Wallace PA-C Unavailable Latoya Hardy PA-C Unavailable [phone] Encounter Details Date Type Department Care Team Description 12/07/2015 Box Turner Report Medical Records [address] [place] [address] Cecilia Carnes Social History Tobacco Use Types [...] on filedocumented in this encounter Care Teams House Painting Instructor Relationship Specialty Start Date End Date Makayla Sam DO PCP - General Internal Medicine 10/10/14 09/02/16 Anila Craven MD PCP - General Internal Medicine 09/03/16 9 Stacy Parry MD PCP - General Internal Medicine 02/21/19 01/20/20 Victoriano Smith MD PCP - General Internal Medicine 01/21/20 07/07/22 Matt Wu MD PCP - General Internal Medicine 07/08/22 Reyna Laboy MD [address] [address] Specialist Neurosurgery 12/22/23 Chris Wallace PA-C [address] [address] Specialist Neurosurgery 03/10/24 Latoya Hardy PA-C [address] [address] Specialist Neurosurgery 03/10/24 documented as of this encounter
--- OUTSIDE RECORDS SUMMARY | 2024-10-25 16:18 | XMS_ITS | Encounter Summary ---
Author Organization [facility] Address [address] [place] [address] Support Name Relationship Address Phone Kimo Sprague Emergency Contact [address] [facility] [address] [place] [address] Care Team Providers Care Flight Dispatcher Name Role Phone Anila Craven MD Primary Care Provider Un available Stacy Parry MD Primary Care Provider Unavail able Victoriano Smith MD Primary Care Provider Unava ilable Matt Wu MD Primary Care Provider Unavailabl e Reyna Laboy MD Unavailable [phone] Chris WallaceC Unavailable [phone] Latoya Hardy PA-C Unavailable [phone] Encounter Details Date Type Department Care Team Description 10/18/2018 Director Strategic Planning Report Medical Records [address] [place] [address] Christ Gustafson MD Social History Tobacco Use [...] on filedocumented in this encounter Care Teams Flight Dispatcher Relationship Specialty Start Date End Date Anila Craven MD PCP - General Internal Medicine 09/03/16 9 Stacy Parry MD PCP - General Internal Medicine 02/21/19 01/20/20 Victoriano Smith MD PCP - General Internal Medicine 01/21/20 07/07/22 Matt Wu MD PCP - General Internal Medicine 07/08/22 Reyna Laboy MD [address] [address] Specialist Neurosurgery 12/22/23 Chris Wallace PA-C [address] [address] Specialist Neurosurgery 03/10/24 Latoya Hardy PA-C [address] [address] Specialist Neurosurgery 03/10/24 documented as of this encounter
--- OUTSIDE RECORDS SUMMARY | 2024-10-25 16:18 | XMS_ITS | Encounter Summary ---
Author Organization [facility] Address [address] [place] [address] Support Name Relationship Address Phone Kimo Sprague Emergency Contact [address] [facility] [address] [address] [place] [address] Care Team Providers Care Medical Data Analyst Name Role Phone Anila Craven MD Primary Care Provider Un available Stacy Parry MD Primary Care Provider Unavail able Victoriano Smith MD Primary Care Provider Unava ilable Name, Matt APPIAH Primary Care Provider Unavailabl e Reyna Laboy MD Unavailable [phone] Chris Wallace PA-C Unavailable Latoya Hardy PA-C Unavailable Encounter Details Date Type Department Care Team Description 02/20/2017 Field Sales Trainer Report Medical Records [address] [place] [address] Abstract, Provider Social History Tobacco Use Types [...] on filedocumented in this encounter Care Teams Medical Data Analyst Relationship Specialty Start Date End Date Anila Craven MD PCP - General Internal Medicine 09/03/16 9 Stacy Parry MD PCP - General Internal Medicine 02/21/19 01/20/20 Victoriano Smith MD PCP - General Internal Medicine 01/21/20 07/07/22 Matt Wu MD PCP - General Internal Medicine 07/08/22 Reyna Laboy MD [address] [address] Specialist Neurosurgery 12/22/23 Chris Wallace PA-C [address] [address] Specialist Neurosurgery 03/10/24 Latoya Hardy PA-C [address] [address] Specialist Neurosurgery 03/10/24 documented as of this encounter
--- OUTSIDE RECORDS SUMMARY | 2024-10-25 16:18 | XMS_ITS | Encounter Summary ---
Author Organization [facility] Address [address] [place] [address] Support Name Relationship Address Phone Kimo Sprague Emergency Contact [address] [place] [address] Care Team Providers Care Denial Resolution Specialist Name Role Phone Anila Craven MD Primary Care Provider Un available Stacy Parry MD Primary Care Provider Unavail able Victoriano Smith MD Primary Care Provider Unava ilable Matt Wu MD Primary Care Provider Unavailabl e Reyna Laboy MD Unavailable [phone] Chris WallaceC Unavailable Latoya Hardy PA-C Unavailable [phone] Encounter Details Date Type Department Care Team Description 08/24/2018 Fire Boss Report Medical Records [address] [place] [address] Geetha Noriega E, DEPARTMENT OPERATIONS MANAGER Social History Tobacco Use Types Packs/Day [...] on filedocumented in this encounter Care Teams Denial Resolution Specialist Relationship Specialty Start Date End Date Anila Craven MD PCP - General Internal Medicine 09/03/16 9 Stacy Parry MD PCP - General Internal Medicine 02/21/19 01/20/20 Victoriano Smith MD PCP - General Internal Medicine 01/21/20 07/07/22 Matt Wu MD PCP - General Internal Medicine 07/08/22 Reyna Laboy MD [address] [address] Specialist Neurosurgery 12/22/23 Chris Wallace PA-C [address] [address] Specialist Neurosurgery 03/10/24 Latoya Hardy PA-C [address] [address] Specialist Neurosurgery 03/10/24 documented as of this encounter
--- OUTSIDE RECORDS SUMMARY | 2024-10-25 16:19 | XMS_ITS | Encounter Summary ---
Author Organization [facility] Address [address] [place] [address] Support Name Relationship Address Phone Kimo Sprague Emergency Contact [address] [place] [address] Care Team Providers Care Horticultural Farmer Name Role Phone Makayla Sam DO Primary Care Pro vider Unavailable Anila Craven MD Primary Care Provider Un available Stacy Parry MD Primary Care Provider Unavail able Victoriano Smith MD Primary Care Provider Unava ilable Name, Matt APPIAH Primary Care Provider UnavailReyna Yañez MD Unavailable [phone] Chris Wallace PA-C Unavailable Latoya Hardy PA-C Unavailable [phone] Encounter Details Date Type Department Care Team Description 06/17/2016 Boat Outfitting Supervisor Report Medical Records [address] [place] [address] Estephanie Man FNP Social History Tobacco Use [...] on filedocumented in this encounter Care Teams Horticultural Farmer Relationship Specialty Start Date End Date Makayla Sam DO PCP - General Internal Medicine 10/10/14 09/02/16 Anila Craven MD PCP - General Internal Medicine 09/03/16 9 Stacy Parry MD PCP - General Internal Medicine 02/21/19 01/20/20 Victoriano Smith MD PCP - General Internal Medicine 01/21/20 07/07/22 Matt Wu MD PCP - General Internal Medicine 07/08/22 Reyna Laboy MD [address] [address] Specialist Neurosurgery 12/22/23 Chris Wallace PA-C [address] [address] Specialist Neurosurgery 03/10/24 Latoya Hardy PA-C [address] [address] Specialist Neurosurgery 03/10/24 documented as of this encounter
--- OUTSIDE RECORDS SUMMARY | 2024-10-25 16:19 | XMS_ITS | Encounter Summary ---
Author Organization [facility] Address [address] [place] [address] Support Name Relationship Address Phone Kimo Sprague Emergency Contact [address] [facility] [address] [place] [address] Care Team Providers Care Senior Architectural Designer Name Role Phone Anila Craven MD Primary Care Provider Un available Stacy Parry MD Primary Care Provider Unavail able Victoriano Smith MD Primary Care Provider Unava ilable Matt Wu MD Primary Care Provider Unavailabl e Reyna Laboy MD Unavailable [phone] Chris Wallace PA-C Unavailable Latoya Hardy PA-C Unavailable [phone] Encounter Details Date Type Department Care Team Description 01/24/2019 [facility] Medical Records [address] [place] [address] Abstract, Provider Social History Tobacco Use Types [...] filedocumented in this encounter Care Teams Senior Architectural Designer Relationship Specialty Start Date End Date Anila Craven MD PCP - General Internal Medicine 09/03/16 9 Stacy Parry MD PCP - General Internal Medicine 02/21/19 01/20/20 Victoriano Smith MD PCP - General Internal Medicine 01/21/20 07/07/22 Matt Wu MD PCP - General Internal Medicine 07/08/22 Reyna Laboy MD [address] [address] Specialist Neurosurgery 12/22/23 Chris Wallace PA-C [address] [address] Specialist Neurosurgery 03/10/24 Latoya Hardy PA-C [address] [address] Specialist Neurosurgery 03/10/24 documented as of this encounter
--- OUTSIDE RECORDS SUMMARY | 2024-10-25 16:19 | XMS_ITS | Encounter Summary ---
Author Organization [facility] Address [address] [place] [address] Support Name Relationship Address Phone Kimo Sprague Emergency Contact [address] [facility] [address] [place] [address] Care Team Providers Care Fireworks Display Specialist Name Role Phone Anila Craven MD Primary Care Provider Un available Stacy Parry MD Primary Care Provider Unavail able Victoriano Smith MD Primary Care Provider Unava ilable Name, Matt APPIAH Primary Care Provider UnavailReyna Yañez MD Unavailable [phone] Chris Wallace PA-C Unavailable Latoya Hardy PA-C Unavailable Reason for Referral * Non JEN (Routine) - Authorized/Booked Specialty Diagnoses / Procedures Referred By Caridad veronica Referred To Contact Physiatry Procedures REFERRAL TO PHYSIATRY Alicia Crabtree PA-C [address] [place] [address] [facility]/[address] [address] Referral ID Status Reason Start Date Expiration Date V isits Requested Visits Authorized [id number] Authorized/B ooked 01/10/2019 01/10/2020 1 1 Reason for Visit * Reason Onset Date Comments medication problems 01/10/2019 Encounter Details Date Type Department Care Team Description 01/10/2019 Telephone Adult Medicine [address] [id number] Anila Craven MD medication problems Social History [...] on filedocumented in this encounter Care Teams Fireworks Display Specialist Relationship Specialty Start Date End Date Anila Craven MD PCP - General Internal Medicine 09/03/16 9 Stacy Parry MD PCP - General Internal Medicine 02/21/19 01/20/20 Victoriano Smith MD PCP - General Internal Medicine 01/21/20 07/07/22 Bryce, MD Matt PCP - General Internal Medicine 07/08/22 Reyna Laboy MD [address] [address] Specialist Neurosurgery 12/22/23 Chris Wallace PA-C [address] [address] Specialist Neurosurgery 03/10/24 Latoya Hardy PA-C [address] [address] Specialist Neurosurgery 03/10/24 documented as of this encounter
--- OUTSIDE RECORDS SUMMARY | 2024-10-25 16:19 | XMS_ITS | Encounter Summary ---
Author Organization [facility] Address [address] [place] [address] Support Name Relationship Address Phone Kimo Sprague Emergency Contact [address] [facility] [address] [place] [address] Care Team Providers Care Mat Sewer Name Role Phone Anila Craven MD Primary Care Provider Un available Stacy Parry MD Primary Care Provider Unavail able Victoriano Smith MD Primary Care Provider Unava ilable Name, Matt APPIAH Primary Care Provider Unavailabl e Reyna Laboy MD Unavailable [phone] Chris Wallace PA-C Unavailable [phone] Latoya Hardy PA-C Unavailable Encounter Details Date Type Department Care Team Description 08/20/2017 [facility] Medical Records [address] [place] [address] Abstract, Provider Social History Tobacco Use Types [...] on filedocumented in this encounter Care Teams Mat Sewer Relationship Specialty Start Date End Date Anila Craven MD PCP - General Internal Medicine 09/03/16 9 Stacy Parry MD PCP - General Internal Medicine 02/21/19 01/20/20 Victoriano Smith MD PCP - General Internal Medicine 01/21/20 07/07/22 Matt Wu MD PCP - General Internal Medicine 07/08/22 Reyna Laboy MD [address] [address] Specialist Neurosurgery 12/22/23 Chrsi Wallace PA-C [address] [address] Specialist Neurosurgery 03/10/24 Latoya Hardy PA-C [address] [address] Specialist Neurosurgery 03/10/24 documented as of this encounter
--- OUTSIDE RECORDS SUMMARY | 2024-10-25 16:19 | XMS_ITS | Clinical Summary ---
Author Organization [employer] Address [address] [place] [address] Care Team Providers Care Pole Shaver Name Role Phone Name, Matt APPIAH Primary Care Provider [phone] Allergies Active Allergy Reactions Criticality Noted Date [...] Her surgeon is Dr Laboy at [facility] Class 2 obesity 11/06/2023 CLARA (generalized [...] agreed to referral. She requested referral in [facility]. Provided education around integrated medicine and the options of follow up BE's as needed. Provided contact information should questions or concerns arise. ?? Plan: Farrah will engage in effective coping mechanisms to manage sxs. Referral will be placed for Ind Therapy and Psychiatrist at [facility], per her request. 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 Hemorrhoids 06/04/2017 Overview (11/06/2023): Internal & external Nonalcoholic steatohepatitis (HURD) 06/04/2017 Insomnia 08/23/2015 Carpal tunnel syndrome 12/25/2014 Overview (01/01/2023): Bilateral - negative EMG at [place] 2014 Osteoarthritis 12/25/2014 Overview (01/01/2023): Hands, knees, [...] reflux disease) 2 Overview (01/01/2023): F/u GI [facility] H/o H.pylori x 3 Resolved Problems Problem [...] callus 04/13/2018 07/08/2023 Onychomycosis 03/23/2018 07/08/2023 Old OR (myocardial infarction) 12/25/2014 11/06/2023 Overview (01/01/2023): 1998/ Dr Perez 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 07/08/2023 Other psoriasis and similar disorders 12/03/2011 07/08/2023 Encounters Date Type Department Care Team Description 10/22/2024 Refill [facility] [address] [place] [address] Matt Wu MD Insomnia, unspecified type 09/21/2024 Refill [facility] [address] [place] [address] Matt Wu MD Insomnia, unspecified type 09/19/2024 Orders Only GENERIC EXTERNAL DATA DEPARTMENT Provider, Generic External Data 09/09/2024 Orders Only GENERIC EXTERNAL DATA DEPARTMENT Provider, Generic External Data 08/18/2024 Refill [facility] [address] [place] [address] Matt Wu MD Insomnia, unspecified type 08/15/2024 2:30 PM EST Office Visit [facility] [address] [place] [address] Matt Wu MD Type 2 diabetes mellitus with neurological manifestations, controlled ([facility]/HCC) (Primary Dx); Hypertension, unspecified type; High cholesterol; Vaccination refused by patient 08/15/2024 Travel 08/10/2024 Telephone [facility] [address] [place] [address] Matt Wu MD chartprep 08/08/2024 Telephone [facility] [address] [place] [address] Yolande Knight MD 08/05/2024 Orders Only [facility] [address] [place] [phone] Yolande Knight MD 08/04/2024 3:20 PM EST Office Visit [facility] [address] [place] [phone] Yolande Knight MD Rash (Primary Dx); Primary hypertension 08/04/2024 Orders Only GENERIC EXTERNAL DATA DEPARTMENT Provider, Generic External Data 08/04/2024 Travel 08/04/2024 Telephone [facility] [address] [place] [address] Matt Wu MD Nurse Triage 07/28/2024 Orders [...] 11/30/2024 2:30 PM EDT Office Visit [facility] [address] [place] [address] Name, MD Matt [address] [place] [address] Health Maintenance Due Date Last Done Comments [...] period is included. Triglycerides 129 <150 mg/dL [facility] Comment:Desirable Triglyceri de: less than 150 mg/dLBorderline High Triglyceride 150-199 mg/dLHigh Triglyceride: 200-499 mg/dLVery High Triglyceride: greater than or equal to 5OO mg/dL Cholesterol 98 <200 mg/dL [facility] Comment:Desirable Cholestero l: less than 200 mg/dLBorderline High Cholesterol: 200-239 mg/dLHigh Cholesterol: greater than 239 mg/dL LDL Cholesterol Calculated 34 <100 mg/dL [facility] Comment:Desirable LDL: less than 100 mg/dLNear Optimal/Above Optimal LDL: 110- 129 mg/dLBorderline High LDL: 130-159 mg/dLHigh LDL: 160-189 mg/dLVery High LDL: greater than or equal to 190 mg/dL HDL Cholesterol 39(L) >40 mg/dL [facility] Comment:Desirable HDL: great er than 40 mg/dL Note: This HDL assay may give artificially low results in patients with liver disease. 09/19/2024 2:03 PM EDT 09/19/2024 2:03 PM EDT us Generic External Data Provider LAB BLOOD ORDERAB LES Final Result Performing Organization Address City/State/[facility] Co de Phone Number [facility] [address] [place] [phone] * CT Abdomen Pelvis w/o Contrast (09/15/2024 4:48 PM EDT) Anatomical Region Laterality Modality Body, Pelvis, Abdomen Computed T omography 09/15/2024 4:48 PM EDT Narrative 09/15/2024 4:49 PM EDT ? [facility] ?[address] ?[place] [address] ? CT Scan Report ? Signed ? Patient: Bc,Farrah ?MR#: [id number] ?? 3 ? : 1970 ?Acct:[id number] ? Age/Sex: 54 / F ?ADM Date: 04/02/25 ? Loc: HO.CT ? Attending Dr: Masood Meier MD ? Ordering Physician: Masood Meier MD ?? Date of Service: 09/14/24 ?? Procedure(s): CT abdomen pelvis wo IV con ?? Accession Number(s): [id number] ? cc: Masood Meier MD; Name,Matt APPIAH ? Report Number: ?? [id number]: Total DLP = ??934.00 mGy-cm ? CLINICAL HISTORY: N20.0 - Calculus of kidney ? CT abdomen and pelvis without contrast ? Comparison: CT/REG/DC/SR - CT ABDOMEN PELVIS WO IV CON [...] 1649 ? DD/ ? TD/TT: 09/15/248 ? Can Tender: ? Procedure Note Divya, Image - 09/15/[address] [place] [address] [address] Scan Report Signed Patient: David Yancey#: [id number] 3 : 1970Acct:[id number] Age/Sex: 54 / FADM Date: 09/14/24 Loc: HO.CT Attending Dr: Masood Meier MD Ordering Physician: Masood Meier MD Date of Service: 09/14/24 Procedure(s): CT abdomen pelvis wo IV con Accession Number(s): [id number] cc: Masood Meier MD; Name,Matt APPIAH Report Number: [id number]: Total DLP = 934.00 mGy-cm CLINICAL HISTORY: N20.0 - Calculus of kidney CT abdomen and pelvis without contrast Comparison: CT/REG/DC/SR - CT ABDOMEN PELVIS WO IV CON [...] 09/15/24 1649 DD/ 1648 TD/TT: 09/15/24 1648 Can Tender: [facility] External Provider IMG CT PROCEDURES Final Result * Helicobacter pylori, Urea Breath Test (09/09/2024 1:40 PM EDT) H. pylori Breath Test Positive Negative [facility] Comment:Antimicrobials, prot on pump inhibitors and bismuthpreparations are known to suppress H. pylori. Ingestingthese medications within two weeks prior to performing thebreath test may produce negative test results. A positiveresult is still clinically valid. 09/09/2024 1:40 PM EDT 09/09/2024 2:19 PM EDT Generic External Data Provider LAB BLOOD ORDERAB LES Final Result Performing Organization Address City/State/[facility] Co de Phone Number [facility] [address] [place] [phone] * (ABNORMAL) POCT HGB A1C (08/15/2024 [...] Blood Count 9.5 4.8 - 10.8 X10*3/uL [facility] Red Blood Count 5.20 4.20 - 5.50 X10*6/uL [facility] Hemoglobin 13.9 12.0 - 16.0 g/dl [facility] Hematocrit 43.9 37.0 - 47.0 % [facility] Mean Corpuscular Volume 84.4 80.0 - 98.0 fL [facility] Mean Corpuscular Hemoglobin 26.7(L) 27.0 - 33.0 pg [facility] Mean Corpuscular HGB Conc 31.7 31.0 - 35.0 g/dl [facility] Red Cell Distribution Width 13.8 11.0 - 16.0 % [facility] Platelet Count 317 160 - 400 X10*3/uL [facility] Mean Platelet Volume 10.4 9.4 - 12.3 fL [facility] Neutrophils Percent Auto 55.9 45 - 73 % [facility] Imm Gran Pct Auto 0.3 0.0 - 0.4 % [facility] Lymphocytes Percent Auto 32.2 20 - 40 % [facility] Monocytes Percent Auto 9.3 2 - 11 % [facility] Eosinophils Percent Auto 1.7 0 - 4 % [facility] Basophils Percent Auto 0.6 0 - 2 % [facility] NRBC Pct Auto 0.0 0.0 - 0.2 /100WBC [facility] Neutrophils Absolute Auto 5.3 2.0 - 8.3 x10*3/uL [facility] Imm Gran Abs Auto 0.03 0.00 - 0.03 X10*3/uL [facility] Lymphocytes Absolute Auto 3.1 1.2 - 4.9 X10*3/uL [facility] Monocytes Absolute Auto 0.9 0.1 - 1.2 X10*3/uL [facility] Eosinophils Absolute Auto 0.2 0.0 - 0.4 X10*3/uL [facility] Basophils Absolute Auto 0.1 0.0 - 0.2 X10*3/uL [facility] NRBC Abs Auto 0.000 0.0 - 0.012 X10*3/uL [facility] Blood Venous blood specimen / Unknown 08/04/2024 4:08 PM EST 08/04/2024 5:50 PM EST Yolande Victor MD LAB BLOOD ORDERABLES Final Result Performing Organization Address City/[facility]/ZIP Co de Phone Number [facility] [address] [place] [phone] * Partial Thromboplastin Time, Activated (APTT) (08/04/2024 4:08 PM EST) Partial Thromboplastin Time 30.4 26.0 - 36.8 SEC [facility] Comment:For information rega rding the monitoring of direct thrombininhibitors, please refer to Pharmacy. Blood Venous blood specimen / Unknown 08/04/2024 4:08 PM EST 08/04/2024 5:50 PM EST us Yolande Victor MD LAB BLOOD ORDERABLES Final Result [facility] [address] [place] [phone] * Sed Rate by Kristy Hobson (08/04/2024 4:08 PM EST) Erythrocyte Sedimentation Rate 19 0 - 20 MM/HR [facility] Comment:Patients with polycy themia and many hemoglobin abnormalitiesmay have depressed sed rates whereas patients with anemiamay have elevated sed rates. Blood Venous blood specimen / Unknown 08/04/2024 4:08 PM EST 08/04/2024 5:50 PM EST Yolande Victor MD LAB BLOOD ORDERABLES Final Result Performing Organization Address [facility] Co de Phone Number [facility] [address] [place] [phone] * Prothrombin Time-INR (08/04/2024 4:08 PM EST) Prothrombin Time 11.7 10.9 - 12.4 SEC [facility] INTERNATIONAL NORM RATIO 1.0 0.9 - 1.1 [facility] Comment:INTERNATIONAL NORMAL IZED RATIO (INR) [...] BLOOD ORDERABLES Final Result Performing Organization Address [facility] de Phone Number [facility] [address] [place] [phone] * (ABNORMAL) C-reactive Protein (08/04/2024 4:08 PM EST) C Reactive Protein 0.93(H) < or = 0.50 mg/dL [facility] Blood Venous blood specimen / Unknown 08/04/2024 4:08 PM EST 08/04/2024 5:50 PM EST Yolande Victor MD LAB BLOOD ORDERABLES Final Result [facility] [address] [place] [address] [phone] * BIN Screen,IFA, with Reflex to Titer and Pattern (08/04/2024 4:08 PM EST) Pathologist [facility] Anti Nuclear Antibody Screen NEGATIVE NEGATIVE [facility] Comment:BIN IFA is a first [...] clinicallysuspected inflammatory myopathies.AC-0: NegativeInternational Consensus on BIN Patterns(https://doi.org/10.1515/iqvp-4196-8383)For additional information, please refer tohttp://education.Asteel/faq/IAL905(This link is being provided for informational/educational purposes only.)THIS TEST WAS PERFORMED AT:[employer] [place] [id number] PATTERSON MD BIN Titer TNP [facility] BIN Pattern [facility] BIN TITER 2 (REF LAB) [facility] BIN Pattern 2 [facility] BIN TITER 3 [facility] BIN PATTERN 3 [facility] Blood Venous blood specimen / Unknown 08/04/2024 4:08 PM EST 08/04/2024 5:50 PM EST us Yolande Victor MD LAB BLOOD ORDERABLES Final Result [facility] [address] [place] [address] [phone] * (ABNORMAL) Comprehensive Metabolic Panel (08/04/2024 4:08 PM EST) Pathologist [facility] Sodium 144 135 - 145 mmol/L [facility] Potassium 3.8 3.3 - 5.1 mmol/L [facility] Chloride 107 96 - 108 mmol/L [facility] Carbon Dioxide 30(H) 22 - 29 mmol/L [facility] Anion Gap 11(L) 12 - 20 [facility] Urea Nitrogen (BUN) 15 9 - 16 mg/dL [facility] Creatinine, Serum 0.70 0.5 - 1.4 mg/dL [facility] Estimated Glomerular Filt Rate >60 [facility] Comment:Chronic Kidney Disea se: Estimated GFR < 60 mL/min/[id number] Kidney Disease: Estimated GFR < 15 mL/min/1.73m2 Glucose 89 60 - 115 mg/dL [facility] Calcium 9.4 8.4 - 10.2 mg/dL [facility] Bilirubin, Total 0.6 0.0 - 1.0 mg/dL [facility] Aspartate Amino Transferase 44(H) 5 - 31 U/L [facility] Alanine Aminotransferase 51(H) 0 - 31 U/L [facility] Total Protein 7.9 6.5 - 8.0 g/dL [facility] Albumin Level 4.1 3.5 - 5.0 g/dL [facility] Alkaline Phosphatase 131(H) 39 - 117 U/L [facility] Blood Venous blood specimen / Unknown 08/04/2024 4:08 PM EST 08/04/2024 5:50 PM EST us Yolande Victor MD LAB BLOOD ORDERABLES Final Result [facility] [address] [place], [place] [phone] * Hematoxylin and Eosin Stain (07/28/2024 10:26 AM EST) 07/28/2024 10:2 6 AM EST 07/28/2024 11:14 AM EST Narrative [facility] - 08/02/2024 3:41 PM EST ----- ------- Name: Farrah Yancey ?Age/Sex: 54/F ? : 1970 Unit#: [id number] ?? Attend Dr: Marilyn Reddy MD ?Re07/28/24 ?Status: DEP SDC ? Location: HO.SSS ?Disch: ? ----- ------- SPEC : [id number] ?RECD: 07/28/24-1113 ? STATUS: ??SOUT ? REQ NUM: [id number] ? SARTHAK: 07/28/24-1025 ? SUBM DR: Marilyn [...] Yancey ?Age/Sex: 54/F ? : 1970 Unit#: [id number] ?? Attend Dr: Marilyn Reddy MD ?Re07/28/24 ?Status: DEP SDC ? Location: HO.SSS ?Disch: ? ----- ------- SPEC : [id number] ?RECD: 07/28/24-1113 ? STATUS: ??SOUT ? REQ NUM: [id number] ? SARTHAK: 07/28/24-1026 ? SUBM DR: Marilyn [...] microscopic examination, 2 pieces in cassette E. ??[facility] Special studies ordered and performed: Immunostain for H. pylori on B; AB/PAS stains on A, B and C Copies To: ?? Marilyn Reddy MD ?? [facility] ?? [address] ?? [place] [address] ?? [phone] ?? Name,Matt APPIAH ?? [address] [facility] ?? [place] [address] ?? [phone] ----- ------- Signed (signature on file) Chris Hendrix MD 08/02/24 1541 ? ----- ------- ? END OF REPORT ? us Generic External Data Provider LAB BLOOD ORDERAB LES Final Result Performing Organization Address [facility] de Phone Number [facility] [address] [place], [place] [phone] * (ABNORMAL) Glucose, Whole Blood (07/28/2024 9:36 AM EST) Glucose, Whole Blood 133(H) 60 - 115 mg/dL [facility] Comment:METER #: [id number] 07/28/2024 9:36 AM EST 07/28/2024 9:40 AM EST us Generic External Data Provider LAB BLOOD ORDERAB LES Final Result Performing Organization Address [facility] de Phone Number [facility] [address] [place], [place] [phone] * BI Mammogram Screening Tomosynthesis Bilateral (05/27/2024 1:45 PM EST) Anatomical Region Laterality Modality Breast Bilateral Mammography 05/27/2024 1:4 5 PM EST Narrative 06/06/2024 4:29 PM EST ? [facility] ? [address] ?[place] [address] ? Mammography Report ? Signed ? Patient: Bc,Farrah ?MR#: [id number] ?? 3 ? : 1970 ?Acct:[id number] ? Age/Sex: 54 / F ?ADM Date: 12/13/24 ? Loc: HO.MAMMO ? Attending Dr: Matt Wu MD ? Ordering Physician: Matt Wu MD ?Results: 1Negative ? Date of Service: 05/27/24 ?Follow Up: 1 Year From Orig ?? inal Mammogram ? Procedure(s): MM tomosynthesis screening BI ?? Accession Number(s): [id number] ? cc: Bryce,Matt APPIAH ? EXAMINATION: ?? [...] DD/ 1345 ? TD/TT: 05/27/24 1408 ? Can Tender: ? Procedure Note Donotuseinterpreter, Image - 06/06/2024 [facility] [address] [place], [place] [address] Mammography Report Signed Patient: David Yancey#: [id number] 3 : 1970Acct:[id number] Age/Sex: 54 / FADM Date: 05/27/24 Loc: HO.MAMMO Attending Dr: Matt Wu MD Ordering Physician: Matt Wu MDResults: 1Negative Date of Service: 05/27/24Follow Up: 1 Year From Orig inal Mammogram Procedure(s): MM tomosynthesis screening BI Accession Number(s): [id number] cc: Matt Wu MD EXAMINATION: MM SCREENING [...] 06/06/24 1626 DD/ 1345 TD/TT: 05/27/24 1408 Can Tender: us Matt Wu MD IMG BI PROCEDURES Final Result * HIV-1/2 Antigen and Antibodies, Fourth Generation, with Reflexes (12/21/2023 12:36 PM EDT) HIV AB/AG Nonreactive Nonreactive [facility] Comment:HIV-1 p24 Ag and/or HIV-1/HIV-2 Ab not detected.A test result that is nonreactive does not exclude thepossibility of exposure to or infection with HIV-1 and/orHIV-2. Nonreactive results in this assay for individualswith prior exposure to HIV-1 and/or HIV-2 may be due toantigen and antibody levels that are below the limit ofdetection of this assay.The [employer] [facility] HIV Ag/Ab Combo assay result andsupplemental assay results should be interpreted inconjunction with the patient's clinical presentation,history and other laboratory results. If the results areinconsistent with clinical evidence, additional testing issuggested to confirm the result. Blood Venous blood specimen / Unknown 12/21/2023 12:36 PM EDT 12/21/2023 12:36 PM EDT us Matt Wu MD LAB BLOOD ORDERABLES Final Resul t [facility] [address] [place] [phone] * Albumin, Random Urine W/Creatinine (09/09/2023 12:24 PM EDT) Creatinine, Urine 120.92 mg/dL [facility] Microalbumin Urine 6.0 mg/L [facility] Microalbum Creatinine Ratio Ur 4.9 <30 ug/mg cr [facility] Comment:Albumin/Creatinine R atio Reference Ranges: Normal: < 30 ug/mg creatinine Microalbuminuria: 30 - 300 ug/mg creatinineClinical Albuminuria: > 300 ug/mg creatinine Urine (Urine, Random) 09/09/2023 12:24 PM EDT 09/09/2023 2:10 PM EDT Matt Wu MD LAB URINE ORDERABLES Final Resul t Performing Organization Address [facility] Co de Phone Number [facility] [address] [place] [address] [phone] * Hepatitis Panel, General (05/26/2022 4:23 PM EST) Hepatitis A IgM Nonreactive Nonreactive [facility] Comment:IgM antibodies to TORRES V not detected; does not exclude earlyacute or recovered HAV infection. ~Hepatitis B Surface Antibody NONREACTIVE Nonreactive [facility] Comment:Nonreactive: < 8.00 mIU/mL Hepatitis B Core Antibody Nonreactive Nonreactive [facility] Hepatitis C Antibody Nonreactive Nonreactive [facility] Comment:Antibodies to HCV no t detected; does not exclude early acuteHCV infection. Hepatitis B Surface Antigen Negative Negative [facility] 05/26/2022 4:23 PM EST 05/26/2022 4:23 PM EST [facility] External Provider LAB BLO OD ORDERABLES Final Result Performing Organization Address [facility] Co de Phone Number [facility] [address] [place] [address] [phone] * Hm Pap Smear (05/17/2021) Pap Negative for intraephithelial lesion or malignancy Negative for intraephithelial lesion or malignancy, Other HPV Not Detected Undetected, Indeterminate, Quantitative, Not Detected Historical Provider HEALTH MAINTENANCE Final Result from Last 3 Months or Most Recently Relevant to Health Maintenance Insurance [facility] C3 Care Teams Pole Shaver Relationship Specialty Start Date End Date Name, MD Matt [address] [place] [address] PCP - General Family Medicine 02/21/22 Estephanie Tan Adjunct Faculty InstructorAssistant Manager Trainee 11/24/23
--- OUTSIDE RECORDS SUMMARY | 2024-10-25 16:19 | XMS_ITS | Encounter Summary ---
Author Organization [facility] Address [address] [place] [address] Support Name Relationship Address Phone Kimo Sprague Emergency Contact [address] [facility] [address] [place] [address] Care Team Providers Care Delivery Crew Member Name Role Phone Name, Matt APPIAH Primary Care Provider Unavailbroderick e Reyna Laboy MD Unavailable [phone] Chris Wallace PA-C Unavailable Latoya Hardy PA-C Unavailable [phone] Encounter Details Date Type Department Care Team Description 12/24/2023 [facility] Records [facility] Medical [facility] Neurosurgery [facility] [address] [phone] Reyna Laboy MD [address] [address] Social History Tobacco Use Types Packs/Day Years [...] on filedocumented in this encounter Care Teams Delivery Crew Member Relationship Specialty Start Date End Date Name, MD Matt PCP - General Internal Medicine 07/08/22 Reyna Laboy MD [address] [phone] Specialist Neurosurgery 12/22/23 Chris Wallace PA-C [address] [phone] Specialist Neurosurgery 03/10/24 Latoya Hardy PA-C [address] [place] [address] [place] [address] [phone] Specialist Neurosurgery 03/10/24 documented as of this encounter
--- OUTSIDE RECORDS SUMMARY | 2024-10-25 16:19 | XMS_ITS | Encounter Summary ---
Author Organization [facility] Address [address] [place] [address] Support Name Relationship Address Phone Kimo Sprague Emergency Contact [address] [facility] [address] [place] [address] Care Team Providers Care Operator Coating Furnace Name Role Phone Anila Craven MD Primary Care Provider Un available Stacy Parry MD Primary Care Provider Unavail able Victoriano Smith MD Primary Care Provider Unava ilable Name, Matt APPIAH Primary Care Provider UnavailReyna Yañez MD Unavailable [phone] Chris Wallace PA-C Unavailable Latoya Hardy PA-C Unavailable Reason for Visit * Reason Onset Date Comments Prior Authorization 10/14/2017 [facility] Encounter Details Date Type Department Care Team Description 10/14/2017 Telephone Adult Medicine [address] [address] Alicia Crabtree PA-C [address] [place] [id number] Prior Authorization ([facility]) Social History Tobacco [...] Thank you [place] to p [phone] prior authorization pool Jacqueline Aguiar C.M.A. [facility] Prior Authorizations Ext: [phone] * Telephone Encounter - Alicia Crabtree PA-C - 10/19/2017 4:40 PM EDT noted * Telephone Encounter - Alessia Jorge M.A. - 10/19/2017 1:17 PM EDT Esomeprazole 20mg cap, I bid Dx refractory gerd, pt states symptoms come back with 1 a day Tried omeprazole in past Form faxed to [facility] * Telephone Encounter - Smooth Kauffman - [...] Please advise [place] back [place] p [phone] Prior Auth pool Alsesia Jorge M.A. [facility] Prior Authorizations Ext [phone] * Telephone Encounter - Alessia Jorge M.A. - 10/15/2017 4:21 PM EDT Prior auth form is being faxed to me from [facility] * Telephone Encounter - Dulce Ryan M.A. - 10/15/2017 2:19 PM EDT [phone] (home) Verify with pharmacy insurance changed will [...] Please advise. Jing FARLEY dept Ext [phone] * Telephone Encounter - Ann Lizama - 10/14/2017 8:00 AM EDT Pre Authorization for Medication-do not complete and send this encounter unless you have the fax from the pharmacy. Is this a Cover My Meds request: [place] of Medication esomeprazole (NEXIUM) 20 MG capsule Dose of Medication 20 MG capsule How does patient take this med? Take 1 Cap by mouth 2 times daily. What Pharmacy did the fax come from: [facility] fax #: [phone] [employer] Party Information from fax: What Prescription Plan does the patient have? BIN/PCN if applicable: [id number] Cardholder ID:[id number] Person Code: BCAID Relationship Code: 01 Help desk phone: [phone] documented in this encounter Plan of Treatment Not on file documented as of this encounter Visit Diagnoses Not on filedocumented in this encounter Care Teams Operator Coating Furnace Relationship Specialty Start Date End Date Anila Craven MD PCP - General Internal Medicine 09/03/16 9 Stacy Parry MD PCP - General Internal Medicine 02/21/19 01/20/20 Victoriano Smith MD PCP - General Internal Medicine 01/21/20 07/07/22 NameMatt MD PCP - General Internal Medicine 07/08/22 Reyna Laboy MD [address] [address] Specialist Neurosurgery 12/22/23 Chris Wallace PA-C [address] [address] Specialist Neurosurgery 03/10/24 Latoya Hardy PA-C 175 [facility] [address] [place] [address] Specialist Neurosurgery 03/10/24 documented as of this encounter
--- OUTSIDE RECORDS SUMMARY | 2024-10-25 16:19 | XMS_ITS | Encounter Summary ---
Author Organization [facility] Address [address] [place] [address] Support Name Relationship Address Phone Kimo Sprague Emergency Contact [address] [facility] [address] [place] [address] Care Team Providers Care Electrical Power Engineer Name Role Phone Anila Craven MD Primary Care Provider Un available Stacy Parry MD Primary Care Provider Unavail able Victoriano Smith MD Primary Care Provider Unava ilable Name, Matt APPIAH Primary Care Provider Unavailabl e Reyna Laboy MD Unavailable [phone] Chris Wallace PA-C Unavailable [phone] Latoya Hardy PA-C Unavailable Encounter Details Date Type Department Care Team Description 08/19/2017 [facility] Medical Records [address] [place] [address] Abstract, Provider Social History Tobacco Use Types [...] on filedocumented in this encounter Care Teams Electrical Power Engineer Relationship Specialty Start Date End Date Anila Craven MD PCP - General Internal Medicine 09/03/16 9 Stacy Parry MD PCP - General Internal Medicine 02/21/19 01/20/20 Victoriano Smith MD PCP - General Internal Medicine 01/21/20 07/07/22 Matt Wu MD PCP - General Internal Medicine 07/08/22 Reyna Laboy MD [address] [address] Specialist Neurosurgery 12/22/23 Chris Wallace PA-C [address] [address] Specialist Neurosurgery 03/10/24 Latoya Hardy PA-C [address] [address] Specialist Neurosurgery 03/10/24 documented as of this encounter
--- OUTSIDE RECORDS SUMMARY | 2024-10-25 16:19 | XMS_ITS | Encounter Summary ---
Author Organization [facility] Address [address] [place] [address] Support Name Relationship Address Phone Kimo Sprague Emergency Contact [address] [facility] [address] [place] [address] Care Team Providers Care Mammographer Name Role Phone Stacy Parry MD Primary Care Provider Unavail able Victoriano Smith MD Primary Care Provider Unava ilable Name, Matt APPIAH Primary Care Provider UnavailReyna Yañez MD Unavailable [phone] Chris Wallace PA-C Unavailable Latoya Hardy PA-C Unavailable [phone] Encounter Details Date Type Department Care Team Description 01/02/2020 Telephone OBGYN - [place] [address] [place] [address] Maryse Jimenez MD [address] [place] [address] Social History Tobacco Use Types Packs/Day Years [...] on filedocumented in this encounter Care Teams Mammographer Relationship Specialty Start Date End Date Stacy Parry MD PCP - General Internal Medicine 02/21/19 01/20/20 Victoriano Smith MD PCP - General Internal Medicine 01/21/20 07/07/22 Matt Wu MD PCP - General Internal Medicine 07/08/22 Reyna Laboy MD [address] [id number] Specialist Neurosurgery 12/22/23 Chris Wallace PA-C 175 [facility] [address] [place] [address] Specialist Neurosurgery 03/10/24 Latoya Hardy PA-C [address] [address] Specialist Neurosurgery 03/10/24 documented as of this encounter
--- OUTSIDE RECORDS SUMMARY | 2024-10-25 16:19 | XMS_ITS | Encounter Summary ---
Author Organization [employer] Address [address] [facility] 7t [place] [address] Care Team Providers Care Internal Controls Analyst Name Role Phone Name, Matt APPIAH Primary Care Provider [phone] Reason for Visit * Reason Onset Date Comments triage 09/18/2022 Encounter Details Date Type Department Care Team ([facility] st Contact Info) Description 09/18/2022 Telephone [facility] MEDICINE [address] [place], [place] [phone] Name, MD Matt [address] [place], [place] [phone] triage Social History Tobacco Use Types Packs/Day [...] The caller accepted this outcome pt speaks telugu documented in this encounter Plan of Treatment Upcoming Encounters Date Type Department Care Team (Late st Contact Info) Description 11/30/2024 2:30 PM EDT Office Visit [facility] MEDICINE [address] [place] [address] Name, MD Matt [address] [place] [address] documented as of this encounter Visit Diagnoses Not on filedocumented in this encounter Care Teams Internal Controls Analyst Relationship Specialty Start Date End Date NameMatt MD [address] [place] [address] PCP - General Family Medicine 02/21/22 Estephanie Tan Financial Institution Branch ManagerMaintenance Shop Clerk 11/24/23 documented as of this encounter
--- OUTSIDE RECORDS SUMMARY | 2024-10-25 16:19 | XMS_ITS | Encounter Summary ---
Author Organization [facility] Address [address] [place] [address] Support Name Relationship Address Phone Kimo Sprague Emergency Contact [address] [facility] [address] [place] [address] Care Team Providers Care Slate Mixer Name Role Phone Anila Craven MD Primary Care Provider Un available Stacy Parry MD Primary Care Provider Unavail able Victoriano Smith MD Primary Care Provider Unava ilable Matt Wu MD Primary Care Provider Unavailabl e Reyna Laboy MD Unavailable [phone] Chris WallaceC Unavailable [phone] Latoya Hardy PA-C Unavailable [phone] Encounter Details Date Type Department Care Team Description 05/05/2017 Pacs Specialist Report Medical Records [address] [place] [address] Robert Park MD Social History Tobacco Use [...] on filedocumented in this encounter Care Teams Slate Mixer Relationship Specialty Start Date End Date Anila Craven MD PCP - General Internal Medicine 09/03/16 9 Stacy Parry MD PCP - General Internal Medicine 02/21/19 01/20/20 Victoriano Smith MD PCP - General Internal Medicine 01/21/20 07/07/22 Matt Wu MD PCP - General Internal Medicine 07/08/22 Reyna Laboy MD [address] [address] Specialist Neurosurgery 12/22/23 Chris Wallace PA-C [address] [address] Specialist Neurosurgery 03/10/24 Latoya Hardy PA-C [address] [address] Specialist Neurosurgery 03/10/24 documented as of this encounter
--- OUTSIDE RECORDS SUMMARY | 2024-10-25 16:19 | XMS_ITS | Encounter Summary ---
Author Organization [facility] Address [address] [place] [address] Support Name Relationship Address Phone Kimo Sprague Emergency Contact [address] [facility] [address] [place] [address] Care Team Providers Care Finance Teacher Name Role Phone Anila Craven MD Primary Care Provider Un available Stacy Parry MD Primary Care Provider Unavail able Victoriano Smith MD Primary Care Provider Unava ilable Bryce, Matt APPIAH Primary Care Provider UnavailReyna Yañez MD Unavailable [phone] Chris Wallace PA-C Unavailable Latoya Hardy PA-C Unavailable Reason for Visit * Reason Onset Date Comments Senior Application Programmer Feedback 11/24/2016 Genetics Encounter Details Date Type Department Care Team Description 11/24/2016 Telephone Adult Medicine [address] [address] Anila Craven MD Senior Application Programmer Feedback (Genetics) Social History Tobacco Use Types [...] may be needed. Thank you, Rich Referrals Appraiser Irrigation Tax [facility] Referrals Department * Telephone Encounter - Sinan Kingnett - 11/24/2016 7:56 AM EDT [employer] Standardized Prior Authorization Request form completed and faxed to [facility] Case Management for reviewwith last office note and lab order. Awaiting response. documented in this encounter Plan of Treatment Not on file documented as of this encounter Visit Diagnoses Not on filedocumented in this encounter Care Teams Finance Teacher Relationship Specialty Start Date End Date Anila Craven MD PCP - General Internal Medicine 09/03/16 9 Stacy Parry MD PCP - General Internal Medicine 02/21/19 01/20/20 Victoriano Smith MD PCP - General Internal Medicine 01/21/20 07/07/22 Matt Wu MD PCP - General Internal Medicine 07/08/22 Reyna Laboy MD [address] [address] Specialist Neurosurgery 12/22/23 Chris Wallace PA-C [address] [facility] [address] [place] [address] Specialist Neurosurgery 03/10/24 Latoya Hardy PA-C [address] [address] Specialist Neurosurgery 03/10/24 documented as of this encounter
--- OUTSIDE RECORDS SUMMARY | 2024-10-25 16:19 | XMS_ITS | Encounter Summary ---
Author Organization [facility] Address [address] [place] [address] Support Name Relationship Address Phone Kimo Sprague Emergency Contact [address] [facility] [address] [place] [address] Care Team Providers Care Finisher Denture Name Role Phone Makayla Sam DO Primary Care Pro vider Unavailable Anila Craven MD Primary Care Provider Un available Stacy Parry MD Primary Care Provider Unavail able Victoriano Smith MD Primary Care Provider Unava ilable Name, Matt APPIAH Primary Care Provider UnavailReyna Yañez MD Unavailable [phone] Chris Wallace PA-C Unavailable Latoya Hardy PA-C Unavailable [phone] Encounter Details Date Type Department Care Team Description 04/30/2016 Acid Tester Report Medical Records [address] [place] [address] Abstract, Provider Social History Tobacco Use Types [...] on filedocumented in this encounter Care Teams Finisher Denture Relationship Specialty Start Date End Date Makayla Sam DO PCP - General Internal Medicine 10/10/14 09/02/16 Anila Craven MD PCP - General Internal Medicine 09/03/16 9 Stacy Parry MD PCP - General Internal Medicine 02/21/19 01/20/20 Victoriano Smith MD PCP - General Internal Medicine 01/21/20 07/07/22 Matt Wu MD PCP - General Internal Medicine 07/08/22 Reyna Laboy MD [address] [id number] Specialist Neurosurgery 12/22/23 Chris Wallace PA-C [address] [phone] Specialist Neurosurgery 03/10/24 Latoya Hardy PA-C [address] [phone] Specialist Neurosurgery 03/10/24 documented as of this encounter
--- OUTSIDE RECORDS SUMMARY | 2024-10-25 16:19 | XMS_ITS | Encounter Summary ---
Author Organization [employer] Address [address] [facility] 7t [place] [address] Care Team Providers Care Box Sorter Name Role Phone Name, Matt APPIAH Primary Care Provider [phone] Reason for Visit * Reason Onset Date Comments Med Refill 09/24/2023 Encounter Details Date Type Department Care Team ([facility] st Contact Info) Description 09/24/2023 Telephone [facility] MEDICINE [address] [place] [address] Name, MD Matt [address] [place], [place] [phone] Med Refill Social History Tobacco Use Types [...] 10 MG tablet To be sent to: [facility] - [place], [place] - [id number] - [place], [place] - [address] documented in this encounter Plan of Treatment Upcoming Encounters Date Type Department Care Team (Late st Contact Info) Description 11/30/2024 2:30 PM EDT Office Visit [facility] MEDICINE [address] [place] [address] Name, MD Matt [address] [place] [address] documented as of this encounter Visit Diagnoses Not on filedocumented in this encounter Additional Health Concerns Assessment Noted Time PHQ-9 Depression Total Score: 0 09/07/19 24 3:15 PM EDT documented as of this encounter Care Teams Box Sorter Relationship Specialty Start Date End Date Name, MD Matt [address] [place] [address] PCP - General Family Medicine 02/21/22 Estephanie Tan Attendant Self Service StoreDry Chain Offbearer 11/24/23 documented as of this encounter
--- OUTSIDE RECORDS SUMMARY | 2024-10-25 16:19 | XMS_ITS | Encounter Summary ---
Author Organization [facility] Address [address] [place] [address] Support Name Relationship Address Phone Kimo Sprague Emergency Contact [address] [facility] [address] [place] [address] Care Team Providers Care Environmental Engineering Assistant Name Role Phone Anila Craven MD Primary Care Provider Un available Stacy Parry MD Primary Care Provider Unavail able Victoriano Smith MD Primary Care Provider Unava ilable Name, Matt APPIAH Primary Care Provider Unavailabl e Reyna Laboy MD Unavailable [phone] Chris Wallace PA-C Unavailable [phone] Latoya Hardy PA-C Unavailable Encounter Details Date Type Department Care Team Description 10/23/2016 [facility] Medical Records [address] [place] [address] Abstract, Provider Social History Tobacco Use Types [...] on filedocumented in this encounter Care Teams Environmental Engineering Assistant Relationship Specialty Start Date End Date Anila Craven MD PCP - General Internal Medicine 09/03/16 9 Stacy Parry MD PCP - General Internal Medicine 02/21/19 01/20/20 Victoriano Smith MD PCP - General Internal Medicine 01/21/20 07/07/22 Matt Wu MD PCP - General Internal Medicine 07/08/22 Reyna Laboy MD [address] [address] Specialist Neurosurgery 12/22/23 Chris Wallace PA-C [address] [address] Specialist Neurosurgery 03/10/24 Latoya Hardy PA-C [address] [address] Specialist Neurosurgery 03/10/24 documented as of this encounter
--- OUTSIDE RECORDS SUMMARY | 2024-10-25 16:19 | XMS_ITS | Encounter Summary ---
Author Organization [employer] Address [address] [facility] 7t [place] [address] Care Team Providers Care Program Control Analyst Name Role Phone Name, Matt APPIAH Primary Care Provider [phone] Reason for Visit * Reason Onset Date Comments Med Refill 06/22/2024 Encounter Details Date Type Department Care Team ([facility] st Contact Info) Description 06/22/2024 Telephone [facility] MEDICINE [address] [place] [address] Name, MD Matt [address] [place], [place] [phone] Med Refill Social History Tobacco Use Types [...] 10 MG tablet To be sent to: [facility] - [place], [place] - [id number] - [place] - [address] documented in this encounter Plan of Treatment Upcoming Encounters Date Type Department Care Team (Late st Contact Info) Description 11/30/2024 2:30 PM EDT Office Visit [facility] MEDICINE [address] [place] [address] NameMatt MD [address] [place] [address] documented as of this encounter Visit Diagnoses Not on filedocumented in this encounter Additional Health Concerns Assessment Noted Time PHQ-9 Depression Total Score: 0 09/07/19 24 3:15 PM EDT documented as of this encounter Care Teams Program Control Analyst Relationship Specialty Start Date End Date NameMatt MD [address] [place] [address] PCP - General Family Medicine 02/21/22 Estephanie Tan Order Desk ClerkManager Of Revenue 11/24/23 documented as of this encounter
--- OUTSIDE RECORDS SUMMARY | 2024-10-25 16:19 | XMS_ITS | Encounter Summary ---
Author Organization [employer] Address [address] [facility] 7t [place] [address] Care Team Providers Care Chemical Plant Technical Director Name Role Phone Name, Mtat APPIAH Primary Care Provider [phone] Reason for Visit * Reason Onset Date Comments Med Refill 01/21/2024 Encounter Details Date Type Department Care Team ([facility] st Contact Info) Description 01/21/2024 Telephone [facility] MEDICINE [address] [place] [address] Name, MD Matt [address] [place], [place] [phone] Med Refill Social History Tobacco Use Types [...] 10 MG tablet To be sent to: [facility] - [place], [place] - [id number] - [place] - [address] documented in this encounter Plan of Treatment Upcoming Encounters Date Type Department Care Team (Late st Contact Info) Description 11/30/2024 2:30 PM EDT Office Visit [facility] MEDICINE [address] [place] [address] Name, MD Matt [address] [place] [address] documented as of this encounter Visit Diagnoses Not on filedocumented in this encounter Additional Health Concerns Assessment Noted Time PHQ-9 Depression Total Score: 0 09/07/19 3:15 PM EDT documented as of this encounter Care Teams Chemical Plant Technical Director Relationship Specialty Start Date End Date Name, MD Matt [address] [place] [address] PCP - General Family Medicine 02/21/22 Estephanie Tan Videogame DesignerCardiovascular Invasive Specialist 11/24/23 documented as of this encounter
--- OUTSIDE RECORDS SUMMARY | 2024-10-25 16:19 | XMS_ITS | Encounter Summary ---
Author Organization [facility] Address [address] [place] [address] Support Name Relationship Address Phone Kimo Sprague Emergency Contact [address] [facility] [address] [place] [address] Care Team Providers Care Underwriting Account Representative Name Role Phone Makayla Sam DO Primary Care Pro vider Unavailable Anila Craven MD Primary Care Provider Un available Stacy Parry MD Primary Care Provider Unavail able Victoriano Smith MD Primary Care Provider Unava ilable Bryce, Matt APPIAH Primary Care Provider Unavailabl Reyna León MD Unavailable [phone] Chris Wallace PA-C Unavailable Latoya Hardy PA-C Unavailable [phone] Encounter Details Date Type Department Care Team Description 02/11/2016 Mds Rn Report Medical Records [address] [place] [address] Cecilia Mcgregor, RD, LDN 175 [facility] [address] [place] [address] Social History Tobacco Use Types Packs/Day Years Used Date Smoking Tobacco: Never Alcohol Use Standard Drinks/Week Comments No 0 (1 standard drink = 0.6 oz pur e alcohol) Sex Assigned at Date Recorded Not on file documented as of this encounter Plan of Treatment Not on file documented as of this encounter Visit Diagnoses Not on filedocumented in this encounter Care Teams Underwriting Account Representative Relationship Specialty Start Date End Date Makayla Sam DO PCP - General Internal Medicine 10/10/14 09/02/16 Anila Craven MD PCP - General Internal Medicine 09/03/16 9 Stacy Parry MD PCP - General Internal Medicine 02/21/19 01/20/20 Victoriano Smith MD PCP - General Internal Medicine 01/21/20 07/07/22 Matt Wu MD PCP - General Internal Medicine 07/08/22 Reyna Laboy MD [address] [address] Specialist Neurosurgery 12/22/23 Chris Wallace PA-C 175 [facility] [address] [place] [address] Specialist Neurosurgery 03/10/24 Latoya Hardy PA-C [address] [address] Specialist Neurosurgery 03/10/24 documented as of this encounter
--- OUTSIDE RECORDS SUMMARY | 2024-10-25 16:19 | XMS_ITS | Encounter Summary ---
Author Organization [facility] Address [address] [place] [address] Support Name Relationship Address Phone Kimo Sprague Emergency Contact [address] [facility] [address] [place] [address] Care Team Providers Care Coining Press Operator Name Role Phone Anila Craven MD Primary Care Provider Un available Stacy Parry MD Primary Care Provider Unavail able Victoriano Smith MD Primary Care Provider Unava ilable Matt Wu MD Primary Care Provider Unavailabl e Reyna Laboy MD Unavailable [phone] Chris Wallace PA-C Unavailable Latoya Hardy PA-C Unavailable [phone] Encounter Details Date Type Department Care Team Description 04/29/2017 Field Crop Farmer Report Medical Records [address] [place] [address] Rylee Nunez PA-C Social History Tobacco Use [...] on filedocumented in this encounter Care Teams Coining Press Operator Relationship Specialty Start Date End Date Anila Craven MD PCP - General Internal Medicine 09/03/16 9 Stacy Parry MD PCP - General Internal Medicine 02/21/19 01/20/20 Victoriano Smith MD PCP - General Internal Medicine 01/21/20 07/07/22 Matt Wu MD PCP - General Internal Medicine 07/08/22 Reyna Laboy MD [address] [address] Specialist Neurosurgery 12/22/23 Chris Wallace PA-C [address] [address] Specialist Neurosurgery 03/10/24 Latoya Hardy PA-C [address] [address] Specialist Neurosurgery 03/10/24 documented as of this encounter
--- OUTSIDE RECORDS SUMMARY | 2024-10-25 16:19 | XMS_ITS | Encounter Summary ---
Author Organization [facility] Address [address] [place] [address] Support Name Relationship Address Phone Kimo Sprague Emergency Contact [address] [facility] [address] [place] [address] Care Team Providers Care Surgical Processor Name Role Phone Anila Craven MD Primary Care Provider Un available Stacy Parry MD Primary Care Provider Unavail able Victoriano Smith MD Primary Care Provider Unava ilable Name, Matt APPIAH Primary Care Provider Unavailabl e Reyna Laboy MD Unavailable [phone] Chris Wallace PA-C Unavailable Latoya Hardy PA-C Unavailable [phone] Encounter Details Date Type Department Care Team Description 07/17/2017 Csr Report Medical Records [address] [place] [address] Abstract, Provider Social History Tobacco Use Types [...] on filedocumented in this encounter Care Teams Surgical Processor Relationship Specialty Start Date End Date Anila Craven MD PCP - General Internal Medicine 09/03/16 9 Stacy Parry MD PCP - General Internal Medicine 02/21/19 01/20/20 Victoriano Smith MD PCP - General Internal Medicine 01/21/20 07/07/22 Matt Wu MD PCP - General Internal Medicine 07/08/22 Reyna Laboy MD [address] [address] Specialist Neurosurgery 12/22/23 Chris Wallace PA-C [address] [address] Specialist Neurosurgery 03/10/24 Latoya Hardy PA-C [address] [address] Specialist Neurosurgery 03/10/24 documented as of this encounter
--- OUTSIDE RECORDS SUMMARY | 2024-10-25 16:19 | XMS_ITS | Encounter Summary ---
Author Organization [facility] Address [address] [place] [address] Support Name Relationship Address Phone Kimo Sprague Emergency Contact [address] [facility] [address] [place] [address] Care Team Providers Care Kier Drier Name Role Phone Stacy Parry MD Primary Care Provider Unavail able Victoriano Smith MD Primary Care Provider Unava ilable Matt Wu MD Primary Care Provider Unavailabl e Reyna Laboy MD Unavailable [phone] Chris Wallace PA-C Unavailable [phone] Latoya Hardy PA-C Unavailable [phone] Encounter Details Date Type Department Care Team Description 05/24/2019 Old Medical Records Medical Records [address] [place] [address] Abstract, Provider Social History Tobacco Use Types [...] on filedocumented in this encounter Care Teams Kier Drier Relationship Specialty Start Date End Date Stacy Parry MD PCP - General Internal Medicine 02/21/19 01/20/20 Victoriano Smith MD PCP - General Internal Medicine 01/21/20 07/07/22 Matt Wu MD PCP - General Internal Medicine 07/08/22 Reyna Laboy MD 175 [facility] [address] [place] [address] Specialist Neurosurgery 12/22/23 Chris Wallace PA-C 175 [facility] [address] [place] [address] Specialist Neurosurgery 03/10/24 Latoya Hardy PA-C [address] [address] Specialist Neurosurgery 03/10/24 documented as of this encounter
--- OUTSIDE RECORDS SUMMARY | 2024-10-25 16:19 | XMS_ITS | Encounter Summary ---
Author Organization [facility] Address [address] [place] [address] Support Name Relationship Address Phone Kimo Sprague Emergency Contact [address] [facility] [address] [place] [address] Care Team Providers Care Canopy Stringer Name Role Phone Anila Craven MD Primary Care Provider Un available Stacy Parry MD Primary Care Provider Unavail able Victoriano Smith MD Primary Care Provider Unava ilable Name, Matt APPIAH Primary Care Provider UnavailReyna Yañez MD Unavailable [phone] Chris Wallace PA-C Unavailable Latoya Hardy-C Unavailable Reason for Visit * Reason Onset Date Comments Error 12/23/2016 Encounter Details Date Type Department Care Team Description 12/23/2016 Refill Adult [address] [address] Anila Craven MD Error Social History Tobacco [...] on filedocumented in this encounter Care Teams Canopy Stringer Relationship Specialty Start Date End Date Anila Craven MD PCP - General Internal Medicine 09/03/16 9 Stacy Parry MD PCP - General Internal Medicine 02/21/19 01/20/20 Victoriano Smith MD PCP - General Internal Medicine 01/21/20 07/07/22 Matt Wu MD PCP - General Internal Medicine 07/08/22 Reyna Laboy MD [address] [id number] Specialist Neurosurgery 12/22/23 Chris Wallace PA-C [address] [phone] Specialist Neurosurgery 03/10/24 Latoya Hardy PA-C [address] [address] Specialist Neurosurgery 03/10/24 documented as of this encounter
--- OUTSIDE RECORDS SUMMARY | 2024-10-25 16:19 | XMS_ITS | Encounter Summary ---
Author Organization [employer] Address [address] [facility] 7t [place] [address] Care Team Providers Care Private Security Guard Name Role Phone Name, Matt APPIAH Primary Care Provider [phone] Encounter Details Date Type Department Care Team (Late st Contact Info) Description 08/05/2024 Orders Only [facility] MEDICINE [address] [place], [place] [phone] Yolande Knight MD 230 [place] [address] Social History Tobacco Use Types [...] Description 11/30/2024 2:30 PM EDT Office Visit [facility] MEDICINE [address] [place] [address] Name, MD Matt [address] [place] [address] documented as of this encounter Visit Diagnoses Not on filedocumented in this encounter Additional Health Concerns Assessment Noted Time PHQ-9 Depression Total Score: 0 09/07/19 24 3:15 PM EDT documented as of this encounter Care Teams Private Security Guard Relationship Specialty Start Date End Date NameMatt MD [address] [place] [address] PCP - General Family Medicine 02/21/22 Estephanie Tan Custom Car BuilderAssayer 11/24/23 documented as of this encounter
--- OUTSIDE RECORDS SUMMARY | 2024-10-25 16:19 | XMS_ITS | Encounter Summary ---
Author Organization [facility] Address [address] [place] [address] Support Name Relationship Address Phone Kimo Sprague Emergency Contact [address] [facility] [address] [place] [address] Care Team Providers Care Marketing Associate Name Role Phone Name, Matt APPIAH Primary Care Provider Unavailabl e Reyna Laboy MD Unavailable [phone] Chris Wallace PA-C Unavailable Latoya Hardy PA-C Unavailable [phone] Encounter Details Date Type Department Care Team Description 12/23/2023 SCAN [facility] Medical [facility] Neurosurgery [place] [address] [id number] Reyna Laboy MD [address] [address] Social History Tobacco Use Types Packs/Day Years [...] filedocumented in this encounter Care Teams Marketing Associate Relationship Specialty Start Date End Date Name, MD Matt PCP - General Internal Medicine 07/08/22 Reyna Laboy MD [address] [address] Specialist Neurosurgery 12/22/23 Chris Wallace PA-C [address] [address] Specialist Neurosurgery 03/10/24 Latoya Hardy PA-C 175 [facility] [address] [place] [address] Specialist Neurosurgery 03/10/24 documented as of this encounter
--- OUTSIDE RECORDS SUMMARY | 2024-10-25 16:19 | XMS_ITS | Encounter Summary ---
Author Organization [employer] Address [address] [facility] 7t [place] [address] Care Team Providers Care Benzene Operator Name Role Phone Name, Matt APPIAH Primary Care Provider [phone] Reason for Visit * Reason Onset Date Comments Durable Medical Equipment 04/06/2024 Encounter Details Date Type Department Care Team ([facility] st Contact Info) Description 04/06/2024 Telephone [facility] MEDICINE [address] [place] [address] Name, MD Matt [address] [place], [place] [phone] Durable Medical Equipment Social History Tobacco Use [...] Office Visit [facility] MEDICINE [address] [place] [address] Name, MD Matt [address] [place] [address] documented as of this encounter Visit Diagnoses Not on filedocumented in this encounter Additional Health Concerns Assessment Noted Time PHQ-9 Depression Total Score: 0 09/07/19 24 3:15 PM EDT documented as of this encounter Care Teams Benzene Operator Relationship Specialty Start Date End Date Name, MD Matt [address] [place] [address] PCP - General Family Medicine 02/21/22 Estephanie Tan [employer] Commerce ConsultantExercise Rider 11/24/23 documented as of this encounter
--- OUTSIDE RECORDS SUMMARY | 2024-10-25 16:19 | XMS_ITS | Encounter Summary ---
Author Organization [facility] Address [address] [place] [address] Support Name Relationship Address Phone Kimo Sprague Emergency Contact [address] [facility] [address] [place] [address] Care Team Providers Care Car Painter Name Role Phone Anila Craven MD Primary Care Provider Un available Stacy Parry MD Primary Care Provider Unavail able Victoriano Smith MD Primary Care Provider Unava ilable Name, Matt APPIAH Primary Care Provider UnavailReyna Yañez MD Unavailable [phone] Chris Wallace PA-C Unavailable Latoya Hardy PA-C Unavailable Encounter Details Date Type Department Care Team Description 01/07/2019 Professional Security Officer Report Medical Records [address] [place] [address] [place] [address] [place], [place] [phone] Social History Tobacco Use Types Packs/Day Years [...] filedocumented in this encounter Care Teams Car Painter Relationship Specialty Start Date End Date Anila Craven MD PCP - General Internal Medicine 09/03/16 9 Stacy Parry MD PCP - General Internal Medicine 02/21/19 01/20/20 Victoriano Smith MD PCP - General Internal Medicine 01/21/20 07/07/22 Matt Wu MD PCP - General Internal Medicine 07/08/22 Reyna Laboy MD [address] [phone] Specialist Neurosurgery 12/22/23 Chris Wallace PA-C [address] [phone] Specialist Neurosurgery 03/10/24 Latoya Hardy PA-C [address] [address] Specialist Neurosurgery 03/10/24 documented as of this encounter
--- OUTSIDE RECORDS SUMMARY | 2024-10-25 16:19 | XMS_ITS | Encounter Summary ---
Author Organization [facility] Address [address] [place] [address] Support Name Relationship Address Phone Kimo Sprague Emergency Contact [address] [facility] [address] [place] [address] Care Team Providers Care Liability Claims Examiner Name Role Phone Stacy Parry MD Primary Care Provider Unavail able Victoriano Smith MD Primary Care Provider Unava ilable Matt Wu MD Primary Care Provider UnavailReyna Yañez MD Unavailable [phone] Chris Wallace PA-C Unavailable [phone] Latoya Hardy PA-C Unavailable [phone] Encounter Details Date Type Department Care Team Description 10/27/2019 Buildings And Grounds Supervisor Report Medical Records [address] [place] [address] Fly Vogt MD Social History Tobacco Use [...] on filedocumented in this encounter Care Teams Liability Claims Examiner Relationship Specialty Start Date End Date Stacy Parry MD PCP - General Internal Medicine 02/21/19 01/20/20 Victoriano Smith MD PCP - General Internal Medicine 01/21/20 07/07/22 Matt uW MD PCP - General Internal Medicine 07/08/22 Reyna Laboy MD 175 [facility] [address] [place], [place] [phone] Specialist Neurosurgery 12/22/23 Chris Wallace PA-C 175 [facility] [address] [place] [phone] Specialist Neurosurgery 03/10/24 Latoya Hardy PA-C [address] [address] Specialist Neurosurgery 03/10/24 documented as of this encounter
--- OUTSIDE RECORDS SUMMARY | 2024-10-25 16:19 | XMS_ITS | Clinical Summary ---
Author Organization 175 [facility] Address [address] [place] [address] Phone Care Team Providers Care File Clerk Name Role Phone Name, Matt APPIAH Primary Care Provider [phone] Allergies Active Allergy Reactions Criticality Noted Date [...] obesity with BMI of 4 0.0-44.9, adult ([facility] V24, [facility] V28) 03/16/2024 Chronic low back pain with sciatica 03/16/2024 Class 2 obesity 11/06/2023 Premenstrual symptom 05/23/2019 Kari esophagitis ([facility] V24, [facility] V28) 0 10/08/2018 Overview (03/16/2024): F/u [facility] Helicobacter pylori (H. pylori) infection 2018 Overview (03/16/2024): F/u [facility] Seborrheic dermatitis 06/25/2018 Scalp psoriasis 04/13/2018 Hemorrhoids 06/04/2017 Overview (03/16/2024): Internal & external Nonalcoholic steatohepatitis (HURD) 06/04/2017 Insomnia 08/23/2015 Carpal tunnel syndrome 12/25/2014 Overview (03/16/2024): Bilateral - negative EMG at [place] 2014 Migraine 12/25/[address] (myocardial infarction) 12/25/2014 Overview (03/16/2024): 1998/ Dr Perez Osteoarthritis 12/25/2014 Overview (03/16/2024): Hands, knees, spine Tricuspid regurgitation 12/25/2014 Overview (03/16/2024): Mild tricuspid / mild pulmonic Fibromyalgia 10/16/2014 Psoriasis 10/16/2014 Asthma 08/07/2011 GERD (gastroesophageal reflux disease) 2 Overview (03/16/2024): H/o H.pylori x 3 Hyperlipidemia 08/07/2011 Hypertension 08/07/2011 Overview (03/16/2024): Follows with cardiology Type 2 diabetes mellitus wit h neurological manifestations, controlled ([facility] V24, [facility] V28) 08/07/2011 Encounters Date Type Department Care Team Description 09/26/2024 2:30 PM EDT Office Visit Orthopedic Surgery - [address] [address] Smooth Sharp, DPM Dermatophytosis of nail (Primary Dx); Tinea pedis of both feet; Ingrowing nail; Diabetic mononeuropathy simplex ([facility] V24, [facility] V28) from Last 3 Months Immunizations Name Administration Dates Next Due Hepatitis B (Harzvdp-C-Bulyj , Recombivax HB-Adult) 19yo and older 03/13/2009,02/16/2008,01/11/2008 [...] diabetes mellitus wit h neurological manifestations, controlled ([facility] V24, [facility] V28) 08/07/2011 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, controlled ([facility]) Tricuspid regurgitation 12/25/2014 DX:Tricu spid regurgitation; COMMENT: Mild tricuspid / mild pulmonic Old CT (myocardial infarction) 12/25/2014 D X:Old CT (myocardial infarction); COMMENT: 1998/ Dr Perez Hyperlipidemia [...] DX:Hemorrhoids; COMMENT: Internal & external Kari esophagitis ([facility] V24, [facility] V28) 10/08/2018 DX:Kari esophagitis ([facility]) ; COMMENT: F[facility] [...] PM EDT Office Visit Orthopedic Surgery - [place] [address] [address] Smooth Sharp, DPM [address] [address] Health Maintenance Due Date Last Done Comments [...] Results * Annual BMP Blood Test (08/27/2019) [facility] Annual BMP Blood Test abstracted Result [facility] HEALTH MAINTENANCE Final Result * (ABNORMAL) Hemoglobin A1c (08/27/2019) [facility] Hemoglobin A1C 6.6(A) <=6.5 % Blood Venous blood specimen / Unknown Result [facility] Provider LAB BLOOD ORDERABLES Behzad l Result * Cervical Cancer Screening: HPV (05/19/2019) [facility] Cervical Cancer Screening: HPV negative, abstracted Result [facility] HEALTH MAINTENANCE Final Result * Urine Albumin Creatinine Ratio (02/18/2019) [facility] Urine Albumin Creatinine Ratio abstracted Result [facility] HEALTH MAINTENANCE Final Result * (ABNORMAL) Lipid panel (02/18/2019) [facility] LDL/HDL Ratio 7(A) 0 - 4 Triglycerides 443(A) 0 - 150 mg/dL Cholesterol 185 0 - 200 mg/dL HDL 27(A) >=40 mg/dL LDL Cholesterol 70 0 - 100 mg/dL Blood Venous blood specimen / Unknown Result [facility] Provider LAB BLOOD ORDERABLES Behzad l Result * Colonoscopy (09/24/2015) [facility] Colonoscopy no interpretation , abstracted Anatomical Region Laterality Modality Other Result [facility] Provider HEALTH MAINTENANCE Final Result from Last 3 Months or Most Recently Relevant to Health Maintenance Insurance MEDICAID - [place] Care Teams File Clerk Relationship Specialty Start Date End Date Name, MD Matt [address] [place], [place] PCP - General 07/08/22
--- OUTSIDE RECORDS SUMMARY | 2024-10-25 16:19 | XMS_ITS | Encounter Summary ---
Author Organization [employer] Address [address] [facility] 7t [place] [address] Care Team Providers Care Drugless Doctor Name Role Phone Name, Matt APPIAH Primary Care Provider [phone] Reason for Visit * Reason Comments Med Refill Encounter Details Date Type Department Care Team ([facility] st Contact Info) Description 10/22/2024 Refill [facility] MEDICINE [address] [place], [place] [phone] Name, MD Matt [address] [place], [place] [phone] Insomnia, unspecified type Social History Tobacco Use [...] 2:30 PM EDT Office Visit [facility] MEDICINE [address] [place] [address] Name, MD Matt [address] [place] [address] documented as of this encounter Visit Diagnoses Diagnosis Insomnia, unspecified type documented in this encounter Additional Health Concerns Assessment Noted Time PHQ-9 Depression Total Score: 0 09/07/19 24 3:15 PM EDT documented as of this encounter Care Teams Drugless Doctor Relationship Specialty Start Date End Date NameMatt MD [address] [place] [address] PCP - General Family Medicine 02/21/22 Estephanie Tan Paint Spray TenderPersonal Service Workers 11/24/23 documented as of this encounter
--- OUTSIDE RECORDS SUMMARY | 2024-10-25 16:19 | XMS_ITS | Encounter Summary ---
Author Organization [employer] Address [address] [facility] 7t [place] [address] Care Team Providers Care Women Designer Name Role Phone Name, Matt APPIAH Primary Care Provider [phone] Reason for Visit * Reason Onset Date Comments Care Coordination 11/24/2023 [id number] a ssessment Encounter Details Date Type Department Care Team ([facility] st Contact Info) Description 11/24/2023 Telephone [facility] MEDICINE [address] [place] [address] Estephanie Tan, RN Care Coordination (F0MX-arenblc assessment) Social History Tobacco Use Types Packs/Day [...] past 12 months, has t he electric, [employer], oil or water [employer] threatened to shut off services in your [...] for her psoriasis. Reports she went to [facility] ER on 11/04/2023 for chest pain, dizziness, work up negative, ?Patient had follow up ED appointment with PCP11/06/2023. Patient stopped taking statin muscle discomfort. This was changed to Zetia 10mg daily. Also placed on Baclophen 10mg 2 times a day. Next PCP appointment is 12/18/2023. Care management program explained and contact information given. Patient verbalizes understanding, and able to repeat back to check writer salesperson. A follow up call will be placed [...] Description 11/30/2024 2:30 PM EDT Office Visit [facility] MEDICINE [address] [place] [address] Name, MD Matt [address] [place] [address] documented as of this encounter Visit Diagnoses Not on filedocumented in this encounter Additional Health Concerns Assessment Noted Time PHQ-9 Depression Total Score: 0 09/07/19 3:15 PM EDT documented as of this encounter Care Teams Women Designer Relationship Specialty Start Date End Date Name, MD Matt [address] [place] [address] PCP - General Family Medicine 02/21/22 Estephanie Tan Scrum Project ManagerPortal Developer 11/24/23 documented as of this encounter
== END 2024-10-25 14:49 | disposition home or self-care (01) ==
LOC: HO.LAB 14:48
PROVIDERS: PCP Internal Medicine Geriatric Medicine; Visit Provider Advanced Practice Midwife
DX: Z01.419 Encounter for gynecological examination (general) (routine) without abnormal findings (principal)
CPT/HCPCS: 81003; 99396; 99459

== ENCOUNTER 2024-10-25 15:30 | Outpatient (REF) | payer MEDICAID, SELFPAY ==
[2024-10-26 13:33] LABS: Bacterial Vaginosis PCR NEGATIVE (Negative); Candida Group PCR NOT DETECTED (Not Detect); Candida glab krusei PCR DETECTED (Not Detect); Trichomonas vaginalis PCR NOT DETECTED (Not Detect)
[2024-10-26 14:18] LABS: CT PCR NOT DETECTED (Not Detect.); NG PCR NOT DETECTED (Not Detect.)
== END 2024-10-25 15:31 | disposition home or self-care (01) ==
LOC: HO.LNP 15:30
PROVIDERS: Visit Provider Advanced Practice Midwife
DX: R10.2 Pelvic and perineal pain (principal)
CPT/HCPCS: 81003; 81515; 87491; 87591; 99396; 99459

== ENCOUNTER 2024-11-24 15:08 | Outpatient (REF) | payer MEDICAID, SELFPAY ==
--- NOTE | ~2024-11-24 | US_ITS ---
CLINICAL HISTORY: R10.2 - Pelvic and perineal pain US pelvis transabdominal and transvaginal Comparison: CT dated 09/14/2024 Findings: Uterus measures 7.3 x 3.7 x 5.2 cm. Normal myometrium. No endometrial lesion, 3 mm thickness. Nabothian cysts Right ovary not seen. Left ovary measures 1.9 times 1.3 x 1.5 cm. No adnexal mass lesion. No free fluid. IMPRESSION: Unremarkable uterus. No adnexal mass lesion. This document has been electronically signed by: Jes North MD on 11/25/2024 09:06:36
--- OUTSIDE RECORDS SUMMARY | 2024-11-24 17:47 | XMS_ITS | Encounter Summary ---
Author Organization [facility] Address [address] [place] [address] Support Name Relationship Address Phone Kimo Sprague Emergency Contact [address] [facility] [address] [place] [address] Care Team Providers Care Link Trainer Maintenance Man Name Role Phone Anila Craven MD Primary Care Provider Un available Stacy Parry MD Primary Care Provider Unavail able Victoriano Smith MD Primary Care Provider Unava ilable Name, Matt APPIAH Primary Care Provider Unavailabl e Reyna Laboy MD Unavailable [phone] Chris Wallace PA-C Unavailable [phone] Latoya Hardy PA-C Unavailable [phone] Encounter Details Date Type Department Care Team Description 02/20/2017 Strap Folding Machine Operator Report Medical Records [address] [place] [address] Abstract, Provider Social History Tobacco Use Types [...] on filedocumented in this encounter Care Teams Link Trainer Maintenance Man Relationship Specialty Start Date End Date Anila Craven MD PCP - General Internal Medicine 09/03/16 9 Stacy Parry MD PCP - General Internal Medicine 02/21/19 01/20/20 Victoriano Smith MD PCP - General Internal Medicine 01/21/20 07/07/22 Matt Wu MD PCP - General Internal Medicine 07/08/22 Reyna Laboy MD [address] [address] Specialist Neurosurgery 12/22/23 Chris Wallace PA-C [address] [address] Specialist Neurosurgery 03/10/24 Latoya aHrdy PA-C [address] [address] Specialist Neurosurgery 03/10/24 documented as of this encounter
== END 2024-11-24 15:09 | disposition home or self-care (01) ==
LOC: HO.US 15:08
PROVIDERS: PCP Internal Medicine Geriatric Medicine; Visit Provider Advanced Practice Midwife
DX: R10.2 Pelvic and perineal pain (principal)
CPT/HCPCS: 76830; 76856

== ENCOUNTER → 2024-11-24 15:12 | Outpatient (BNV) | payer MEDICAID, SELFPAY | PROVIDERS: PCP Internal Medicine Geriatric Medicine; Visit Provider Radiology Diagnostic Radiology | DX: R10.2 Pelvic and perineal pain (principal) | CPT/HCPCS: 76830; 76856 ==

== ENCOUNTER 2024-12-07 14:11 | Outpatient (AMB) | payer MEDICAID, SELFPAY ==
--- NOTE | 2024-12-07 14:25 | MHC.OFFVIS ---
Intake Visit Reasons: U/S Follow up/DO NOT RS Payroll Accounting Manager Required: Yes Payroll Accounting Manager Language: Residential Leasing Manager Name: Riya [phone] Information Interpreted: non-clinical & clinical Crepe Maker: Crepe Maker Present (Nicole) Allergies acetaminophen (From Vicodin) Allergy (Intermediate, Verified 10/25/24 15:02) Palpitations, Itch amoxicillin (Prevpac) Allergy (Intermediate, Verified 10/25/24 15:02) itchy throat hydrocodone (From Vicodin) Allergy (Intermediate, Verified 10/25/24 15:02) Palpitations, Itch ibuprofen (From Motrin) Allergy (Intermediate, Verified 10/25/24 15:02) UPSET STOMACH, abdominal pain lansoprazole (Prevpac) Allergy (Intermediate, Verified 10/25/24 15:02) itchy throat morphine (MORPHINE) Allergy (Intermediate, Verified 10/25/24 15:02) PALPATATIONS, PANIC ATTACKS, nauseas,panic attack, heart palpitations omeprazole (From PRILOSEC) Allergy (Intermediate, Verified 10/25/24 15:02) ITCHY THROAT pravastatin (PRAVASTATIN) Allergy (Intermediate, Verified 10/25/24 15:02) UNKNOWN rosuvastatin (From CRESTOR) Allergy (Intermediate, Verified 10/25/24 15:02) UNKNOWN terbinafine (TERBINAFINE) Allergy (Intermediate, Verified 10/25/24 15:02) UNKNOWN atorvastatin (From LIPITOR) Allergy (Unknown, Verified 10/25/24 15:02) UNKNOWN clarithromycin (From BIAXIN) Adverse Reaction (Intermediate, Verified 10/25/24 15:02) ABD PAIN, DIARRHEA gabapentin (GABAPENTIN) Adverse Reaction (Intermediate, Verified 10/25/24 15:02) UNKNOWN, nausea, dizziness levofloxacin (LEVOFLOXACIN) Adverse Reaction (Intermediate, Verified 10/25/24 15:02) PALPITATIONS tylenol with codeine Allergy (Unknown, Uncoded 06/17/24 13:10) fast heart rate Is last menstrual period known: Yes HPI Comments Details: Patient is here today for a follow up ultrasound results, accompanied by her partner. Previously had lower abdominal, nontender thickening left side, she reports it is getting bigger and an also notes another area of her right abdomen that feels different. Admits to weight loss. FORMERLY [facility] Medical History FH: breast cancer Pelvic pain Encounter for well woman exam with routine gynecological exam Umbilical hernia Scalp mass Irritable bowel syndrome with diarrhea Allergic rhinitis Lumbar degenerative disc disease Breast pain during Carpal tunnel syndrome Arthritis Morbid obesity with BMI of 40.0-44.9, adult Insomnia Diabetes mellitus Benign essential hypertension Polyarthralgia Fibromyalgia Mixed hyperlipidemia Candidiasis of mouth and esophagus Thoracic spondylosis Surgical History Hx of dilation and curettage History of endometrial ablation Hx of colonoscopy History of esophagogastroduodenoscopy (EGD) History of dermoid cyst excision History of excision of lamina of cervical vertebra for decompression of spinal cord H/O hemorrhoidectomy History of appendectomy Family History Father NIDDY (non-insulin dependent diabetes mellitus in young) Cardiovascular disease Obesity Cancer of unknown origin Colon cancer Mother CAD (coronary artery disease) NIDDY (non-insulin dependent diabetes mellitus in young) Brother Schizophrenia Degenerative disc disease H/O lymph node cancer Sister Breast cancer Colon cancer Paternal Grandmother Ovarian cancer, Onset Age: 45 Daughter Fibromyalgia Hypertension Cancer of unknown origin Ovarian cancer Other Mental health problem Social History Household Members: None Housing: Apartment Alcohol intake: never Patient Tobacco Use Status: Never used Tobacco e-Cigarette/Vaping Use: Never Used Second Hand Smoke Exposure: No service: No Current occupational status: disabled 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 Psych Appearance: well kempt Attitude: cooperative Thought process: Normal thought process present Results Reviewed Results Reviewed: [address] [address] Ultrasound Report Signed Patient: Farrah Yancey MR#: [id number] : 1970 Acct:[id number] Age/Sex: 54 / F ADM Date: 11/24/24 Loc: HO.US Attending Dr: Gisella Pena CNM Ordering Physician: Gisella Pena CNM Date of Service: 11/24/24 Procedure(s): US pelvic and transvaginal Accession Number(s): [id number] cc: Gisella Pena CNM; Name,Matt ~ CLINICAL HISTORY: R10.2 - Pelvic and perineal pain US pelvis transabdominal and transvaginal Comparison: CT dated 09/14/2024 Findings: Uterus measures 7.3 x 3.7 x 5.2 cm. Normal myometrium. No endometrial lesion, 3 mm thickness. Nabothian cysts Right ovary not seen. Left ovary measures 1.9 times 1.3 x 1.5 cm. No adnexal mass lesion. No free fluid. IMPRESSION: Unremarkable uterus. No adnexal mass lesion. This document has been electronically signed by: Jes North MD on 11/25/2024 09:06:36 Dictated By: Jes North MD Signed By: <Electronically signed by Jes North MD in OV> 11/25/24 0907 DD/ 5 TD/TT: 11/25/24 09 Radiographer Mammographer: Assessment & Plan Assessment & Plan (1) Encounter to discuss test results: Code(s): Z71.2 - Person consulting for explanation of examination or test findings Plan Discussed: Ultrasound findings- IMPRESSION: Unremarkable uterus. No adnexal mass lesion Reviewed results. Recommended she see her primary care for further evaluation as she has other concerns on her leg that are not artillery officer problems. Changes in body configuration with weight gain and losses, prominent tissue noted are bothersome for her. The patient expressed understanding and agreement with the plan of care. All of her questions and concerns were addressed to the best of my ability. This note is constructed using voice recognition software. While every effort has been made to ensure accuracy, principal database developer errors may have been included. Coding Level of Care Code Est Pt Level 3 (13316) Diagnoses Encounter to discuss test results Z71.2
--- OUTSIDE RECORDS SUMMARY | 2024-12-07 16:54 | XMS_ITS | Encounter Summary ---
Author Organization [employer] Address [address] [facility] [address] [place] [address] Care Team Providers Care Rotary Machine Operator Name Role Phone Name, Matt APPIAH Primary Care Provider [phone] Reason for Visit * Reason Onset Date Comments Med Refill 01/21/2024 Encounter Details Date Type Department Care Team ([facility] st Contact Info) Description 01/21/2024 Telephone [facility] MEDICINE [address] [place] [address] Name, MD Matt [address] [place] [address] Med Refill Social History Tobacco Use Types [...] 10 MG tablet To be sent to: [facility] - [place] - [phone] [place] - [phone] documented in this encounter Plan of Treatment Upcoming Encounters Date Type Department Care Team (Late st Contact Info) Description 03/14/2025 1:00 PM EDT Office Visit [facility] MEDICINE [address] [place] [phone] Name, MD Matt [address] [place] [address] documented as of this encounter Visit Diagnoses Not on filedocumented in this encounter Additional Health Concerns Assessment Noted Time PHQ-9 Depression Total Score: 0 09/07/19 3:15 PM EDT documented as of this encounter Care Teams Rotary Machine Operator Relationship Specialty Start Date End Date Name, MD Matt [address] [place] [address] [phone] PCP - General Family Medicine 02/21/22 Estephanie Tan Marketing Proposal CoordinatorFreelance Art Director 11/24/23 documented as of this encounter
== END 2024-12-08 07:07 | disposition home or self-care (01) ==
LOC: HO.HWS 14:11
PROVIDERS: PCP Internal Medicine Geriatric Medicine; Visit Provider Advanced Practice Midwife
DX: Z71.2 Person consulting for explanation of examination or test findings (principal)
CPT/HCPCS: 99213

== ENCOUNTER → 2024-12-07 14:11 | Outpatient (BNVA) | payer MEDICAID, SELFPAY | PROVIDERS: PCP Internal Medicine Geriatric Medicine; Visit Provider Advanced Practice Midwife | DX: Z71.2 Person consulting for explanation of examination or test findings (principal) | CPT/HCPCS: 99212 ==

== ENCOUNTER 2024-12-19 15:40 | Outpatient (AMB) | payer MEDICAID, SELFPAY ==
--- NOTE | 2024-12-18 16:08 | MHC.OFFVIS ---
Intake Visit Reasons: [facility] f/u Intake Note: Patient is present via telehealth for litholink results [facility]ink comp. 11/03 Urology Medication:NONE Antibiotic Allergy:AMOXCILLIN,PRAVASTATIN,ROSUVASTATIN,CLARITHROMYCIN,GABAPENTIN,LEVOFLOXACIN Blood Thinner:ASPIRIN Loom Operator Apprentice Required: Yes Loom Operator Apprentice Services: Loom Operator Apprentice Present Loom Operator Apprentice Name: Carlos Information Interpreted: non-clinical & clinical Allergies acetaminophen (From Vicodin) Allergy (Intermediate, Verified 12/19/24 15:45) Palpitations, Itch amoxicillin (Prevpac) Allergy (Intermediate, Verified 12/19/24 15:45) itchy throat hydrocodone (From Vicodin) Allergy (Intermediate, Verified 12/19/24 15:45) Palpitations, Itch ibuprofen (From Motrin) Allergy (Intermediate, Verified 12/19/24 15:45) UPSET STOMACH, abdominal pain lansoprazole (Prevpac) Allergy (Intermediate, Verified 12/19/24 15:45) itchy throat morphine (MORPHINE) Allergy (Intermediate, Verified 12/19/24 15:45) PALPATATIONS, PANIC ATTACKS, nauseas,panic attack, heart palpitations omeprazole (From PRILOSEC) Allergy (Intermediate, Verified 12/19/24 15:45) ITCHY THROAT pravastatin (PRAVASTATIN) Allergy (Intermediate, Verified 12/19/24 15:45) UNKNOWN rosuvastatin (From CRESTOR) Allergy (Intermediate, Verified 12/19/24 15:45) UNKNOWN terbinafine (TERBINAFINE) Allergy (Intermediate, Verified 12/19/24 15:45) UNKNOWN atorvastatin (From LIPITOR) Allergy (Unknown, Verified 12/19/24 15:45) UNKNOWN clarithromycin (From BIAXIN) Adverse Reaction (Intermediate, Verified 12/19/24 15:45) ABD PAIN, DIARRHEA gabapentin (GABAPENTIN) Adverse Reaction (Intermediate, Verified 12/19/24 15:45) UNKNOWN, nausea, dizziness levofloxacin (LEVOFLOXACIN) Adverse Reaction (Intermediate, Verified 12/19/24 15:45) PALPITATIONS tylenol with codeine Allergy (Unknown, Uncoded 06/17/24 13:10) fast heart rate HPI Comments Details: 12/19/2024 followup 24 hour urine Discussed 24 hour urine results collected:11/03/24 Total volume 1.75 L, Calcium 98 mg; Oxalate 27 mg, Citrate 1380 mg, Sodium 143. Instructed on importance of fluid intake. History of Present Illness - The patient is a 54-year-old female presenting for a follow-up on kidney stone management and dietary recommendations. - Urine test results urine volume was just under 2 liters. - Normal calcium and oxalate levels were observed, reducing the risk of kidney stone formation. - Citrate levels were excellent, providing a natural inhibition against stone formation. - Sodium levels were slightly elevated, leading to a recommendation for a low sodium diet. - continue diet modification as discussed to decrease risk of recurrent kidney stones - continue to monitor kidneys follow-up in 11 months with the nurse practitioner renal ultrasound prior 09/27/24-- History of Present Illness The patient is a 54-year-old female presenting with nephrolithiasis. She had a recent episode suspected to involve a kidney stone in the left kidney. A recent CT scan was performed to evaluate the presence and condition of kidney stones. The scan report returned with no stones identified, suggesting possible spontaneous passage of the stone. Historically, she has maintained a healthy dietary intake to manage her condition, including the consumption of sufficient fluids and reducing sodium intake. She has included lemon concentrate as a citrate source, which acts as a natural inhibitor for stone formation. Results - Imaging: Recent CAT scan revealed no identifiable kidney stones and indicated that both kidneys appear healthy. Discussion Notes During the telehealth visit, I reviewed the results of the recent CAT scan with the patient, which showed no current stones, suggesting the possible passage of a previously identified stone in the left kidney. I recommended continued adherence to a healthy fluid intake and dietary adjustments. Instructions were provided regarding a 24-hour urine collection to assess her dietary impact on stone formation. 04/07/24--Farrah is here for follow up kidney stones and flank pain. I have discussed renal US results. Renal US--12/24/23--Nonobstructing 4 mm left lower pole renal calculus. Question of mild caliectasis versus small parapelvic cysts. Will continue to monitor kidneys. 12/16/23--Farrah complains of LUTS, 'urine is hot' states she needs to push hard to release, and frequency. Also lower pelvic pain and flank pain. Currently sexually active. Denies any vaginal irritation. FORMERLY [facility] Medical History FH: breast cancer Pelvic pain Encounter for well woman exam with routine gynecological exam Umbilical hernia Scalp mass Irritable bowel syndrome with diarrhea Allergic rhinitis Lumbar degenerative disc disease Breast pain during Carpal tunnel syndrome Arthritis Morbid obesity with BMI of 40.0-44.9, adult Insomnia Diabetes mellitus Benign essential hypertension Polyarthralgia Fibromyalgia Mixed hyperlipidemia Candidiasis of mouth and esophagus Thoracic spondylosis Surgical History Hx of dilation and curettage History of endometrial ablation Hx of colonoscopy History of esophagogastroduodenoscopy (EGD) History of dermoid cyst excision History of excision of lamina of cervical vertebra for decompression of spinal cord H/O hemorrhoidectomy History of appendectomy Family History Father NIDDY (non-insulin dependent diabetes mellitus in young) Cardiovascular disease Obesity Cancer of unknown origin Colon cancer Mother CAD (coronary artery disease) NIDDY (non-insulin dependent diabetes mellitus in young) Brother Schizophrenia Degenerative disc disease H/O lymph node cancer Sister Breast cancer Colon cancer Paternal Grandmother Ovarian cancer, Onset Age: 45 Daughter Fibromyalgia Hypertension Cancer of unknown origin Ovarian cancer Other Mental health problem Social History Household Members: None Housing: Apartment Alcohol intake: never Patient Tobacco Use Status: Never used Tobacco e-Cigarette/Vaping Use: Never Used Second Hand Smoke Exposure: No service: No Current occupational status: disabled 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 Sexual orientation: Straight/Heterosexual Gender identity: Female Cognitive needs: No Hearing needs: Yes Vision needs: Yes Female Reproductive History Menstrual Age of Menarche: 11 Review of Systems Const All systems reviewed & are unremarkable except as noted in HPI and below Reports no additional complaints Eyes Reports no additional complaints ENT Reports no additional complaints Card Reports no additional complaints Resp Reports no additional complaints GI Reports no additional complaints Reports as per HPI Musc Reports no additional complaints Skin/Breast Reports system reviewed and no additional complaints, except as documented Neuro Reports no additional complaints Psych Reports no additional complaints Endo Reports no additional complaints [place]/Lymph Reports no additional complaints Aller/Immun Reports no additional complaints Telehealth Telehealth Telehealth Platform: Telephone Location of provider rendering services: practice address Location of patient: address on file Patient Identification confirmed using: Name, : Yes Telehealth method: voice only Patient verbally consented to treatment: Yes Patient verbally consented to billing insurance company: Yes Patient informed of any privacy concerns related to visit: Yes Minutes spent on Phone/Video with Pt.: 14 Assessment & Plan Assessment & Plan (1) History of kidney stones: Code(s): Z87.442 - Personal history of urinary calculi Category: Medical Plan Plan - Increase fluid intake by 8 to 10 ounces to improve urine volume. - Maintain current dietary habits to keep citrate levels high, as it acts as a natural stone inhibitor. - Follow a low sodium diet to manage slightly elevated sodium levels. - Schedule an ultrasound in 10 months to recheck kidney status. - Arrange a follow-up call with the nurse practitioner to discuss ultrasound results. Orders: Orders US renal BI 10 Months Z87.442 - Personal history of urinary calculi Patient Instructions: The patient had an opportunity to ask questions regarding treatment plan. The patient expressed understanding and agreement with the above treatment plan. The patient is aware they should contact our office by phone for worsening of their current condition or the appearance of new symptoms. Compliance is encouraged with any medications and followup testing that is ordered. It is a privilege to be allowed the opportunity to participate in the urologic care of your patient. If you have any questions or concerns regarding treatment for the above conditions please do not hesitate to contact me. The office telephone contact is [phone]. This note is constructed in part using voice recognition software. While every effort has been made to ensure accuracy manufacturing teacher errors may have been included. Yours sincerely, Masood Meier MD Scribe Plan - Not visible on output: Patient was informed and verbally consented to the use of an ambient scribe for clinic note documentation during this visit. Coding Level of Care Code Tele Est Pt Level 3 (97185) Diagnoses History of kidney stones Z87.442
--- OUTSIDE RECORDS SUMMARY | 2024-12-19 15:49 | XMS_ITS | Encounter Summary ---
Author Organization [employer] Address [address] [facility] [address] [place] [address] Care Team Providers Care Rigging Man Name Role Phone Name, Matt APPIAH Primary Care Provider [phone] Reason for Visit * Reason Onset Date Comments Med Refill 01/21/2024 Encounter Details Date Type Department Care Team ([facility] st Contact Info) Description 01/21/2024 Telephone [facility] MEDICINE [address] [place] [address] Name, MD Matt [address] [place] [address] Med Refill Social History Tobacco Use Types [...] 10 MG tablet To be sent to: [facility] - [place], [place] - [phone] - [place] - [phone] documented in this encounter Plan of Treatment Upcoming Encounters Date Type Department Care Team (Late st Contact Info) Description 03/14/2025 1:00 PM EDT Office Visit [facility] MEDICINE [address] [place] [phone] Name, MD Matt [address] [place] [address] documented as of this encounter Visit Diagnoses Not on filedocumented in this encounter Additional Health Concerns Assessment Noted Time PHQ-9 Depression Total Score: 0 09/07/19 3:15 PM EDT documented as of this encounter Care Teams Rigging Man Relationship Specialty Start Date End Date Name, MD Matt [address] [place] [address] [phone] PCP - General Family Medicine 02/21/22 Estephanie Tan Wired Sweatband CutterShell Freezing Machine Operator 11/24/23 documented as of this encounter
--- OUTSIDE RECORDS SUMMARY | 2024-12-19 15:50 | XMS_ITS | Data Portability ---
Author Organization [place] - [facility], Allergy Address [address] [facility] [address] [place] [address] Care Team Providers Care Shank Faker Name Role Phone YOLANDA VANEGAS Referring Provider [...] for amplification. Recommend she follow up with [facility], and discussed hearing aids would help [...] audiometric testing, or sooner with any concerns. [email or web address] Not available 05/27/2024 12:01:38 Plan of Treatment [...] Abnormal Flag Note LastModifiedBy Organization Detail LastModifiedTime 05/27/2001/10/2021 audio gram No observ ation record ed. [email or web address] Not Available 05/15 11:56:48 05/27/20 audio gram No observ ation record ed. BARCODE Not Available 2023 15:09:13 Result Notes None recorded. Problems Name Problem SNOMED Code Status Onset Date Resolution Date Notes Provider Name and Address Organization Details Recorded Time Dizziness and giddiness 483340457 Active 2017 Dizziness and giddiness ; Note: Date Diagnosed : 02/11/2018 2:44 PM (R42) Not Available [facility] 4 03:04:54 Sensorine ural hearing loss of bilateral ears 985931929 Active 2020 Sensorine ural hearing loss, bilateral ; Note: Date Diagnosed : 01/10/2021 2:50 PM (H90.3) Not Available [facility] 4 03:04:55 Headache 94174715 Active 2017 Headache, unspecifi ed; Note: Changed from R51 to R51.9 (07/19/2021 2:06 PM) , Date Diagnosed : 02/11/2018 2:44 PM (R51) Not Available [facility] 4 03:04:55 Migraine 16827264 Active 2020 Other migraine, not intractab le, without status migrainos us; Note: Date Diagnosed : 1 4:10 PM (G43.809) Not Available [facility] 4 03:04:56 Gastroeso phageal reflux disease without esophagit is 154968792 Active 2017 Gastro-es ophageal reflux disease without esophagit is; Note: Date Diagnosed : 03/05/2018 1:19 PM (K21.9) Not Available [facility] 4 03:04:53 Cough 45235974 Active 2017 Cough; Note: Date Diagnosed : 03/05/2018 1:16 PM (R05) Not Available [facility] 4 03:04:55 Referred otalgia of left ear 69223625103 45984 Active 2023 MARISSA CARCAMO PA-C [address] [facility],[place] [address], [facility] [place], [address] , [facility] - [facility] 4 12:01:45 Bilateral tinnitus 48106602066 02 Active 2023 MARISSA CARCAMO PA-C [address] [facility],[place] [address], [facility] [place], [address] , [facility] - [facility] 4 12:01:52 Problem Notes None recorded. Procedures Surgical History Date Name Laterality Status Provider Name and Address Organization Details Recorded Time 024 Air & Speech Audio with Tymps - 44252, 39097 & 71452 completed SHAHLA SLOAN [address] [facility],[place] [address], [place], [address], [facility] - [facility] 05/27/2024 11:03:21 hemorrhoidectomy completed Mica Horner [place] - [facility] 05/27/2024 10:56:11 Appendectomy completed Mica Horner [facility] 05/27/2024 10:56:15 Imaging Results None recorded. Procedure Notes None recorded. Medical Equipment None Reported. Allergies Allergen ID Allergen Name Allergen Category Reaction Reaction Severity Criticality Documentation Date Start Date Code Code System Note Provider Name and Address Organization Details Recorded Time 90982 gabapenti n medicatio n other Not available Not available 10/27/2023 87321 RxNorm React ion: unkno wn, unspe cifie d;; Not Available [facility] 4 00:48:25 12919 terbinafi ne medicatio n other Not available Not available 10/27/2023 63703 RxNorm React ion: unkno wn, unspe cifie d;; Not Available [facility] 4 00:48:25 65860 Lipitor medicatio n other Not available Not available 10/27/2023 74857 5 RxNorm React ion: unkno wn, unspe cifie d;; Not Available [facility] 4 00:48:25 70004 Crestor medicatio n other Not available Not available 10/27/2023 23827 4 RxNorm React ion: unkno wn, unspe cifie d;; Not Available [facility] 4 00:48:34 31501 sodium medicatio n other Not available Not available 10/27/2023 9853 RxNorm React ion: unkno wn, unspe cifie d;; Not Available [facility] 4 00:48:41 25225 Biaxin medicatio n other Not available Not available 10/27/2023 64390 9 RxNorm React ion: unkno wn, unspe cifie d;; Not Available [facility] 4 00:48:42 46128 Motrin medicatio n other Not available Not available 10/27/202303960 8 RxNorm React ion: unkno wn, unspe cifie d;; Not Available [facility] 4 00:48:53 31018 morphine medicatio n other Not available Not available 10/27/2023 7052 RxNorm React ion: unkno wn, unspe cifie d;; Not Available [facility] 4 00:48:59 33869 acetamino phen / hydrocodo ne medicatio n other Not available Not available 10/27/2023 57306 2 RxNorm React ion: unkno wn, unspe cifie d;; Not Available [facility] 4 00:49:06 99498 pravastat in medicatio n other Not available Not available 10/27/2023 28374 RxNorm React ion: unkno wn, unspe cifie d;; Not Available [facility] 4 00:49:07 Medications Name Sig Start Date Stop Date Status Note LastModified by Organization Details LastModified Time nystatin 100,000 unit/mL oral suspensio n 05/27 completed Medicati on ID: [id number] D uration Value: 30 Brand Name: nystatin [...] Alcohol Pads 05/27 completed Medicati on ID: [id number] D uration Value: 30 Brand Name: Alcohol [...] mg tablet 05/27 completed Medicati on ID: [id number] D uration Value: 30 Brand Name: hank avila Send Method: E-Prescr ibed Sub s Allowed: subs OK Speci al Instruct ion: TAKE ONE TABLET BY MOUTH 2 (two) times a day WITH A MEAL [facility] Steffi me: carvedil ol Not Available Not Available [...] mg tablet 05/27 completed Medicati on ID: [id number] D uration Value: 28 Brand Name: zolpidem [...] ating tablet 05/27 completed Medicati on ID: [id number] D uration Value: 30 Brand Name: bree parson Send Method: E-Prescr ibed Sub s Allowed: subs OK Speci al Instruct ion: DISSOLVE 1 TABLETS UNDER THE TONGUE EVERY 4 HOURS NEEDED M tricemariselamariah nGdemetriceic Name: bree parson Not Available Not Available [...] elayed release 05/27 completed Medicati on ID: [id number] D uration Value: 30 Brand Name: donald [...] unit) capsule 2017 active Medicati on ID: [id number] D uration Value: 30 Brand Name: D3 Send Method: E-Prescr ibed Sub s Allowed: subs OK Speci al Instruct ion: TAKE ONE CAPSULE BY MOUTH DAILY Me dication GenericN louie: D3-2000 Not Available Not Available Not Available Easy Comfort Lancets 30 gauge 05/27 completed Medicati on ID: [id number] D uration Value: 30 Brand Name: Easy [...] SNOMED-CT Code Diagnosis ICD10 Code Diagnosis Note [id number] MARISSA CARCAMO PA-C [facility] [address] [address] 05/27/2024 10:49:53 05/27/2024 11:53:18 Sensorineural hearing loss of bilateral ears [id number] H90.3 Right Ear:Normal hearing through 2K Hz sloping to a profound SNHL with good speech discrimina tion.Type A tympanogra m.Left Ear:Normal hearing through 2K Hz sloping to a profound SNHL with good speech discrimina tion.Type A tympanogra m. Referred o talgia of left ear [id number] 955848 H92.02 Bilateral tinnitus 87180 44856 102 H93.13 Health Concerns Section Related Observation LastModified by Organization Detai ls LastModified Time None Recorded Concern Status LastModified by Organization Details LastModified Time None Recorded Advance Directives Directive None Recorded Payers Insurance Date Sequence Insurance Name Policy Number Policy Juárez Covered Member ID Juárez Member ID Guarantor Name 05/18/2024 2 [facility] NET PLAN (MEDICAID HMO) OSVALDO Yan Bc [id number] Farrah Bc 05/27/2024 1 [place] [facility] Farrah Bc [id number] Farrah Bc 05/05/2024 1 [place] [facility] Farrah Yancey [id number] Farrah Bc Notes Date Note Type Note Provider Name [...] caused pruritus. The amplification was dispensed by top installer in [place]. Denies otorrhea or dizziness. Denies prior history of ear infections or ear surgeries. No history of loud noise exposure. No Qtip use. History of migraine. MIGUEL NATH MD [address] [place] [address], [address], [place] - [facility] 05/28/2024 13:57:56 OBGyn Episode No OBEpisode recorded.
--- OUTSIDE RECORDS SUMMARY | 2024-12-19 15:50 | XMS_ITS | Clinical Summary ---
Author Organization [address] [facility] Address [address] [place] [address] Phone Care Team Providers Care Machinist Class B Name Role Phone Name, Matt APPIAH Primary Care Provider [phone] Allergies Active Allergy Reactions Criticality Noted Date [...] (10 mg total) by mouth daily. 4 Active fluconazole (DIFLUCAN) 150 mg tablet Take [...] obesity with BMI of 4 0.0-44.9, adult ([facility] V24, [facility] V28) 03/16/2024 Chronic low back pain with sciatica 03/16/2024 Class 2 obesity 11/06/2023 Premenstrual symptom 05/23/2019 Kari esophagitis ([facility] V24, [facility] V28) 0 10/08/2018 Overview (03/16/2024): F/u GI [facility] Helicobacter pylori (H. pylori) infection 2018 Overview (03/16/2024): F/u GI [facility] Seborrheic dermatitis 06/25/2018 Scalp psoriasis 04/13/2018 Hemorrhoids 06/04/2017 Overview (03/16/2024): Internal & external Nonalcoholic steatohepatitis (HURD) 06/04/2017 Insomnia 08/23/2015 Carpal tunnel syndrome 12/25/2014 Overview (03/16/2024): Bilateral - negative EMG at [place] 2014 Migraine 12/25/2014 Old DE (myocardial infarction) 12/25/2014 Overview (03/16/2024): 1998/ Dr Perez Osteoarthritis 12/25/2014 Overview (03/16/2024): Hands, knees, spine Tricuspid regurgitation 12/25/2014 Overview (03/16/2024): Mild tricuspid / mild pulmonic Fibromyalgia 10/16/2014 Psoriasis 10/16/2014 Asthma 08/07/2011 GERD (gastroesophageal reflux disease) 2 Overview (03/16/2024): H/o H.pylori x 3 Hyperlipidemia 08/07/2011 Hypertension 08/07/2011 Overview (03/16/2024): Follows with cardiology Type 2 diabetes mellitus wit h neurological manifestations, controlled ([facility] V24, [facility] V28) 08/07/2011 Encounters Date Type Department Care Team Description 09/26/2024 2:30 PM EDT Office Visit Orthopedic Surgery - [address] [address] Smooth Sharp, DPM Dermatophytosis of nail (Primary Dx); Tinea pedis of both feet; Ingrowing nail; Diabetic mononeuropathy simplex ([facility] V24, [facility] V28) from Last 3 Months Immunizations Name Administration Dates Next Due Hepatitis B (Hjrihca-K-Snoht , Recombivax HB-Adult) 19yo and older 03/13/2009,02/16/2008,01/11/2008 [...] diabetes mellitus wit h neurological manifestations, controlled ([facility] V24, [facility] V28) 08/07/2011 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, controlled ([facility]) Tricuspid regurgitation 12/25/2014 DX:Tricu spid regurgitation; COMMENT: Mild tricuspid / mild pulmonic Old DE (myocardial infarction) 12/25/2014 D X:Old DE (myocardial infarction); COMMENT: 1998/ Dr Perez Hyperlipidemia [...] DX:Hemorrhoids; COMMENT: Internal & external Kari esophagitis ([facility] V24, [facility] V28) 10/08/2018 DX:Kari esophagitis ([facility]) ; COMMENT: F/u GI [facility] Helicobacter pylori [...] Upcoming Encounters Date Type Department Care Team ([facility] st Contact Info) Description 12/26/2024 1:45 PM EDT Office Visit Orthopedic Surgery - [place] [address] [address] Smooth Sharp, DPM [address] [address] Health Maintenance Due Date Last Done Comments Breast Cancer Screening 1970 Diabetes: Annual Foot Exam 1980 Diabetes: Annual Retina Eye Exam 1980 Pneumococcal Vaccine: 50+ Years (1 of 2 - PCV) 1989 Pneumococcal Vaccine: Pediatrics (0 to 5 Years) and At-Risk Patients (6 to 49 Years) (1 of 2 - PCV) 1989 Zoster Vaccines (1 of 2) 2020 Hepatitis C Screening 05/17/2022 Social Influencers of Health Screening 05/17/2022 Diabetes: Annual Urine Albumin-Creatinine Ratio (uACR) 05/27/2022 02/18/2019 COVID-19 Vaccine ( season) 2024 01/18/2021, 12/21/2020 Cervical Cancer Screening: HPV 05/19/2024 05/19/2019 Depression Screening 09/06/2024 09/07/2023 Influenza Vaccine (#1) 2025 Diabetes: Blood Sugar Control Test (HGBA1C) [...] Procedure Name Priority Date/Time Associated Diagnosis Comments HM ANNUAL BMP BLOOD TEST Routine 08/27/2019 HEMOGLOBIN A1C Routine 08/27/2019 HM HPV Routine 05/19/2019 HM URINE ALBUMIN CREATININE RATIO Routine 02/18/2019 LIPID PANEL Routine 02/18/2019 COLONOSCOPY Routine 09/24/2015 from Last 3 Months or Most Recently Relevant to Health Maintenance Results * Annual BMP Blood Test (08/27/2019) [facility] Annual BMP Blood Test abstracted Result [facility] HEALTH MAINTENANCE Final Result * (ABNORMAL) Hemoglobin A1c (08/27/2019) [facility] Hemoglobin A1C 6.6(A) <=6.5 % Blood Venous blood specimen / Unknown Result [facility] LAB BLOOD ORDERABLES Behzad l Result * Cervical Cancer Screening: HPV (05/19/2019) [facility] Cervical Cancer Screening: HPV negative, abstracted Result [facility] HEALTH MAINTENANCE Final Result * Urine Albumin Creatinine Ratio (02/18/2019) [facility] Urine Albumin Creatinine Ratio abstracted Result [facility] HEALTH MAINTENANCE Final Result * (ABNORMAL) Lipid panel (02/18/2019) [facility] LDL/HDL Ratio 7(A) 0 - 4 Triglycerides 443(A) 0 - 150 mg/dL Cholesterol 185 0 - 200 mg/dL HDL 27(A) >=40 mg/dL LDL Cholesterol 70 0 - 100 mg/dL Blood Venous blood specimen / Unknown Result [facility] LAB BLOOD ORDERABLES Behzad l Result * Colonoscopy (09/24/2015) [facility] Colonoscopy no interpretation , abstracted Anatomical Region Laterality Modality Other Result [facility] HEALTH MAINTENANCE Final Result from Last 3 Months or Most Recently Relevant to Health Maintenance Insurance [place]ICAID - [place] Care Teams Machinist Class B Relationship Specialty Start Date End Date Name, MD Matt [address] [place], [place] PCP - General 07/08/22
== END 2024-12-19 16:34 | disposition home or self-care (01) ==
LOC: HO.HUSH 15:40
PROVIDERS: PCP Internal Medicine Geriatric Medicine; Visit Provider Urology
DX: Z87.442 Personal history of urinary calculi (principal)
CPT/HCPCS: 99213

== ENCOUNTER 2024-12-29 12:57 | Outpatient (AMB) | payer MEDICAID, SELFPAY ==
--- NOTE | 2024-12-29 13:01 | A.OFFVIS_ITS ---
Vital Signs 12/29/24 13:03 Height 5 ft 3 in Weight 215 lb 9.793 oz BMI 38.2 BP 120/72 Blood Pressure Location Lt brachial Position Sitting Pulse 64 Pulse Source Monitor Intake Visit Reasons: 6m follow up Tax Manager Public Required: Yes Tax Manager Public Language: Accounts Receivable Collector Name: voice [id number] Board Layer: Board Layer Present Allergies acetaminophen (From Vicodin) Allergy (Intermediate, Verified 12/29/24 13:06) Palpitations, Itch amoxicillin (Prevpac) Allergy (Intermediate, Verified 12/29/24 13:06) itchy throat hydrocodone (From Vicodin) Allergy (Intermediate, Verified 12/29/24 13:06) Palpitations, Itch ibuprofen (From Motrin) Allergy (Intermediate, Verified 12/29/24 13:06) UPSET STOMACH, abdominal pain lansoprazole (Prevpac) Allergy (Intermediate, Verified 12/29/24 13:06) itchy throat morphine (MORPHINE) Allergy (Intermediate, Verified 12/29/24 13:06) PALPATATIONS, PANIC ATTACKS, nauseas,panic attack, heart palpitations omeprazole (From PRILOSEC) Allergy (Intermediate, Verified 12/29/24 13:06) ITCHY THROAT pravastatin (PRAVASTATIN) Allergy (Intermediate, Verified 12/29/24 13:06) UNKNOWN rosuvastatin (From CRESTOR) Allergy (Intermediate, Verified 12/29/24 13:06) UNKNOWN terbinafine (TERBINAFINE) Allergy (Intermediate, Verified 12/29/24 13:06) UNKNOWN atorvastatin (From LIPITOR) Allergy (Unknown, Verified 12/29/24 13:06) UNKNOWN clarithromycin (From BIAXIN) Adverse Reaction (Intermediate, Verified 12/29/24 13:06) ABD PAIN, DIARRHEA gabapentin (GABAPENTIN) Adverse Reaction (Intermediate, Verified 12/29/24 13:06) UNKNOWN, nausea, dizziness levofloxacin (LEVOFLOXACIN) Adverse Reaction (Intermediate, Verified 12/29/24 13:06) PALPITATIONS tylenol with codeine Allergy (Unknown, Uncoded 12/29/24 13:06) fast heart rate Medication List - Last Reconciled 12/29/24 by MAGDALENE Mcnulty acetaminophen (Tylenol Extra Strength) 500 mg PO Q6H PRN albuterol sulfate 2.5 mg continuous nebulization QID PRN albuterol sulfate 90 mcg/actuation 2 puffs PO QID PRN aspirin 81 mg PO DAILY bisacodyl (Dulcolax (bisacodyl)) 10 mg (2 x 5 mg) PO BEDTIME 30 days blood pressure monitor As directed blood sugar diagnostic (FreeStyle Lite Strips) USE [facility] [employer] HAM blood-glucose meter (FreeStyle Lite Meter kit) As directed calcipotriene 0.005% topical carvedilol 6.25 mg PO BID clindamycin phosphate 1% topical DAILY clotrimazole-betamethasone 1-0.05 % 1 appl topical BID 7 days empagliflozin-metformin 12.5-500 mg (Synjardy) 1 tab PO DAILY esomeprazole magnesium 40 mg PO BID fluticasone furoate-vilanterol 200-25 mcg/dose (Breo Ellipta) 1 inh inhalation DAILY hydrochlorothiazide 25 mg PO DAILY hydroquinone 4% 1 appl topical DAILY lancets Test once daily loratadine (Claritin) 10 mg PO DAILY PRN 90 days meclizine 25 mg PO DAILY PRN 15 days miconazole nitrate 2% (Monistat 7) 1 appful vaginal BEDTIME 7 days miconazole nitrate 2% (Monistat 7) 1 appful vaginal BEDTIME 7 days [RIGHT WRIST SPLINT (large) As directed] sucralfate (Carafate) 2 grams (2 x 1 gram) PO DAILY sumatriptan succinate 50 mg PO Q2-4H PRN triamcinolone acetonide 0.1% 1 appl topical BID zolpidem 10 mg PO BEDTIME PRN 90 days HPI HPI 6m follow up: Details: Farrah is a 54-year-old female with past medical history of hypertension, hyperlipidemia, diabetes, morbid obesity, nonobstructive coronary artery disease who presents for follow-up. Today she reports that she has significant body and joint pain and was recently started on Celebrex. She was taking Praluent and believes this worsened her symptom and she stopped in October. She reports also being intolerant to Zetia and statins. She has no chest discomfort brought on by physical activity. No concerning shortness of breath, no PND, orthopnea or edema. No palpitations, lightheadedness, presyncope, syncope, falls. Taking meds as directed. Son is present and he is assisting with English interpretation. [facility] Medical History FH: breast cancer Pelvic pain Encounter for well woman exam with routine gynecological exam Umbilical hernia Scalp mass Irritable bowel syndrome with diarrhea Allergic rhinitis Lumbar degenerative disc disease Breast pain during Carpal tunnel syndrome Arthritis Morbid obesity with BMI of 40.0-44.9, adult Insomnia Diabetes mellitus Benign essential hypertension Polyarthralgia Fibromyalgia Mixed hyperlipidemia Candidiasis of mouth and esophagus Thoracic spondylosis Surgical History Hx of dilation and curettage History of endometrial ablation Hx of colonoscopy History of esophagogastroduodenoscopy (EGD) History of dermoid cyst excision History of excision of lamina of cervical vertebra for decompression of spinal cord H/O hemorrhoidectomy History of appendectomy Family History Father NIDDY (non-insulin dependent diabetes mellitus in young) Cardiovascular disease Obesity Cancer of unknown origin Colon cancer Mother CAD (coronary artery disease) NIDDY (non-insulin dependent diabetes mellitus in young) Brother Schizophrenia Degenerative disc disease H/O lymph node cancer Sister Breast cancer Colon cancer Paternal Grandmother Ovarian cancer, Onset Age: 45 Daughter Fibromyalgia Hypertension Cancer of unknown origin Ovarian cancer Other Mental health problem Social History Household Members: None Housing: Apartment Alcohol intake: never Patient Tobacco Use Status: Never used Tobacco e-Cigarette/Vaping Use: Never Used Second Hand Smoke Exposure: No service: No Current occupational status: disabled 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 Sexual orientation: Straight/Heterosexual Gender identity: Female Cognitive needs: No Hearing needs: Yes Vision needs: Yes Female Reproductive History Menstrual Age of Menarche: 11 Review of Systems Const All systems reviewed & are unremarkable except as noted in HPI and below ENT Denies dizziness Card Denies chest pain, Denies chest pain at rest, Denies chest pain with activity, Denies rapid heart rate, Denies pedal edema, Denies edema, Denies leg edema, Denies lightheadedness, Denies palpitations, Denies dyspnea, Denies dyspnea on exertion and Denies orthopnea Resp Denies cough, Denies dyspnea and Denies dyspnea on exertion GI Denies hematochezia and Denies change in stool character Musc Denies abnormal gait, Denies limited range of motion, Denies muscle cramps, Denies muscle weakness, Denies numbness, Denies radiating pain into limb, Denies stiffness and Denies tingling Neuro Denies abnormal gait, Denies dizziness, Denies numbness and Denies tingling Endo Denies palpitations Physical Exam Vital Signs: Last Vital Signs Pulse 64 12/29/24 13:03 BP 120/72 12/29/24 13:03 BMI result Body Mass Index 38.2 Const General: cooperative, healthy appearing, comfortable and no acute distress Orientation/consciousness: patient oriented x3 Neck Neck: Yes normal visual inspection Resp Effort & Inspection: normal respiratory effort Auscultation: clear to auscultation bilaterally, no crackles, no rales, no rhonchi and no wheezes Cardio Jugular venous distension: no JVD Rate: regular rate Rhythm: regular rhythm Heart sounds: S1 normal heart sound present, S2 normal heart sound present, no murmurs and no rubs Back/Spine/Pelvis Other: tenderness to palpation along left mid back to left lateral thorax - winces and grimaces Neuro General: patient oriented x3 Extrem General: Yes normal to inspection Psych Appearance: grossly normal Mental Status: mental status grossly normal Speech and movement: Normal speech and movement present Office Procedures EKG Details: Today read by me, sinus rhythm, nonspecific T wave abn, rate 64, Qtc 427ms [id number], Complete Assessment & Plan Assessment & Plan (1) CAD (coronary artery disease): Code(s): I25.10 - Atherosclerotic heart disease of [place] coronary artery without angina pectoris Category: Medical Plan: Known mild nonobstructive coronary artery disease. Cardiac risk factors of hypertension, hyperlipidemia, diabetes and morbid obesity. A CTA of the coronary arteries was done on 11/15/2021 showing nonobstructive LAD stenosis, 30%, no definite stenosis elsewhere. ER evaluation for atypical chest pain on 11/04/2023 and 05/31/2024 and ruled out for ACS. Currently describing musculoskeletal type discomfort likely related to her fibromyalgia. EKG today shows normal sinus rhythm, nonspecific T-wave abnormality, rate 64. Reviewing signs and symptoms of angina. Continue with risk factor modification. Continue aspirin 81 mg daily indefinitely, continue carvedilol. Intolerant to statins, Zetia and Praluent. Discussed low-fat diet, increasing physical activity as tolerated and weight loss to help control cholesterol. Cardiology follow-up 1 year, sooner if needed. (2) Heart palpitations: Code(s): R00.2 - Palpitations Category: Medical Plan: Prior reports of heart palpitations. No presyncope, syncope. Holter monitor done on 06/17/2023 for 22 hours showed sinus rhythm with average heart rate 60, frequent sinus Johan with 50% of the time heart rate below 60, no significant pauses, rare PACs. EKG today without acute findings. Pulse is regular on examination. (3) Benign essential hypertension: Code(s): I10 - Essential (primary) hypertension Category: Medical Plan: Blood pressure goal less than 130/80. Normal today at 120/72. Continue carvedilol. Low-salt diet and weight loss reviewed. (4) Mixed hyperlipidemia: Code(s): E78.2 - Mixed hyperlipidemia Category: Medical Plan: [place] LDL goal less than 70. Labs done 09/19/2024 showed LDL 34. She was on Praluent at that time. Since then she had worsening of fibromyalgia type sympto ms and has stopped Praluent. Trying to manage cholesterol with lifestyle modifications. Plan Time spent on chart review, documentation, interview and assessment Coding Level of Care Code Est Pt Level 4 (15153) Complex EM visit Add On G2211 Diagnoses CAD (coronary artery disease) I25.10 Heart palpitations R00.2 Benign essential hypertension I10 Mixed hyperlipidemia E78.2 CPT Codes EKG - CPT: 52158-[id number], Complete ([id number]) Time Spent (min) 28
[2024-12-29 13:03] VITALS: BP 120/72; PULSE 64; BMI 38.2
--- OUTSIDE RECORDS SUMMARY | 2024-12-29 13:27 | XMS_ITS | Clinical Summary ---
Author Organization 175 [facility] Address [address] [place] [address] Phone Care Team Providers Care Automotive Brake Adjuster Name Role Phone Name, Matt APPIAH Primary Care Provider [phone] Allergies Active Allergy Reactions Criticality Noted Date [...] & Plan (04/22/2024 5:04 PM EST): Ms. Harrington has had a definite improvement in her [...] obesity with BMI of 4 0.0-44.9, adult ([facility] V24, [facility] V28) 03/16/2024 Chronic low back pain with sciatica 03/16/2024 Class 2 obesity 11/06/2023 Premenstrual symptom 05/23/2019 Kari esophagitis ([facility] V24, [facility] V28) 0 10/08/2018 Overview (03/16/2024): F/[place] [facility] Helicobacter pylori (H. pylori) infection 2018 Overview (03/16/2024): F/[place] [facility] Seborrheic dermatitis 06/25/2018 Scalp psoriasis 04/13/2018 Hemorrhoids 06/04/2017 Overview (03/16/2024): Internal & external Nonalcoholic steatohepatitis (HURD) 06/04/2017 Insomnia 08/23/2015 Carpal tunnel syndrome 12/25/2014 Overview (03/16/2024): Bilateral - negative EMG at [place] 2014 Migraine 12/25/2014 [place] (myocardial infarction) 12/25/2014 Overview (03/16/2024): 1998/ Dr Perez Osteoarthritis 12/25/2014 Overview (03/16/2024): Hands, knees, spine Tricuspid regurgitation 12/25/2014 Overview (03/16/2024): Mild tricuspid / mild pulmonic Fibromyalgia 10/16/2014 Psoriasis 10/16/2014 Asthma 08/07/2011 GERD (gastroesophageal reflux disease) 2 Overview (03/16/2024): H/o H.pylori x 3 Hyperlipidemia 08/07/2011 Hypertension 08/07/2011 Overview (03/16/2024): Follows with cardiology Type 2 diabetes mellitus wit h neurological manifestations, controlled ([facility] V24, [facility] V28) 08/07/2011 Immunizations Name Administration Dates Next Due Hepatitis B (Dpftqnp-O-Kikyc , Recombivax HB-Adult) 19yo and older 03/13/2009,02/16/2008,01/11/2008 [...] 03/01/2024 PROCEDURE: HISTORICAL NECK SURGERY; COMMENT: C4-5 ACDFDr. Laboy Medical History Medical History Date Comments Hypertension 08/07/2011 DX:Hypertension Asthma 08/07/2011 DX:Asthma Fibromyalgia DX:Fibromyalgia Psoriasis DX:Psoriasis Migraine DX:Migraine Type 2 diabetes mellitus wit h neurological manifestations, controlled ([facility] V24, [facility] V28) 08/07/2011 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, controlled ([facility]) Tricuspid regurgitation 12/25/2014 DX:Tricu spid regurgitation; COMMENT: Mild tricuspid / mild pulmonic [place] (myocardial infarction) 12/25/2014 D X:[place] (myocardial infarction); COMMENT: Ej/ Dr Perez Hyperlipidemia [...] DX:Hemorrhoids; COMMENT: Internal & external Kari esophagitis ([facility] V24, [facility] V28) 10/08/2018 DX:Kari esophagitis ([facility]) ; COMMENT: F/u GI [facility] Helicobacter pylori (H. pylo ri) infection 10/08/2018 DX:Helicobacter pylori (H. p ylori) infection; COMMENT: F/u GI C Family History Medical History Relation Name Comments [...] Care Team (Late st Contact Info) Description 03/06/2025 2:45 PM EDT Office Visit Orthopedic Surgery - [place] [id number] [id number] Smooth Sharp, DPM [address] [address] Health Maintenance Due Date Last Done Comments [...] Test (08/27/2019) Annual BMP Blood Test abstracted us Historical Provider HEALTH MAINTENANCE Final Result * (ABNORMAL) Hemoglobin A1c (08/27/2019) Hemoglobin A1C 6.6(A) <=6.5 % Blood Venous blood specimen / Unknown [facility] Provider LAB BLOOD ORDERABLES Behzad l Result * Cervical Cancer Screening: HPV (05/19/2019) Pathologist [facility] Cervical Cancer Screening: HPV negative, abstracted [facility] Provider HEALTH MAINTENANCE Final Result * Urine Albumin Creatinine Ratio (02/18/2019) Pathologist [facility] Urine Albumin Creatinine Ratio abstracted [facility] Provider HEALTH MAINTENANCE Final Result * (ABNORMAL) Lipid panel (02/18/2019) [facility] LDL/HDL Ratio 7(A) 0 - 4 Triglycerides 443(A) 0 - 150 mg/dL Cholesterol 185 0 - 200 mg/dL HDL 27(A) >=40 mg/dL LDL Cholesterol 70 0 - 100 mg/dL Blood Venous blood specimen / Unknown Result [facility] Provider LAB BLOOD ORDERABLES Behzad l Result * Colonoscopy (09/24/2015) Pathologist [facility] Colonoscopy no interpretation , abstracted Anatomical Region Laterality Modality Other Result [facility] Provider HEALTH MAINTENANCE Final Result from Last 3 Months or Most Recently Relevant to Health Maintenance Insurance MEDICAID - [place] Care Teams Automotive Brake Adjuster Relationship Specialty Start Date End Date Name, MD Matt [address] [place] [address] PCP - General 07/08/22
--- OUTSIDE RECORDS SUMMARY | 2024-12-29 13:27 | XMS_ITS | Encounter Summary ---
Author Organization [employer] Address [address] [facility] [address] [place] [address] Care Team Providers Care Home Care Music Therapist Name Role Phone Name, Matt APPIAH Primary Care Provider [phone] Reason for Visit * Reason Onset Date Comments Med Refill 01/21/2024 Encounter Details Date Type Department Care Team ([facility] st Contact Info) Description 01/21/2024 Telephone [facility] MEDICINE [address] [place] [address] Name, MD Matt [address] [place] [address] Med Refill Social History Tobacco Use Types [...] 10 MG tablet To be sent to: [facility] - [place], [place] - [phone] [place] - [address] documented in this encounter Plan of Treatment Upcoming Encounters Date Type Department Care Team (Late st Contact Info) Description 03/14/2025 1:00 PM EDT Office Visit [facility] MEDICINE [address] [place] [phone] Name, MD Matt [address] [place] [address] documented as of this encounter Visit Diagnoses Not on filedocumented in this encounter Additional Health Concerns Assessment Noted Time PHQ-9 Depression Total Score: 0 09/07/19 3:15 PM EDT documented as of this encounter Care Teams Home Care Music Therapist Relationship Specialty Start Date End Date Name, MD Matt [address] [place] [phone] PCP - General Family Medicine 02/21/22 Estephanie Tan Grooving Machine OperatorTeaching Artist 11/24/23 documented as of this encounter
== END 2024-12-29 13:35 | disposition home or self-care (01) ==
LOC: HO.HCS 12:58
PROVIDERS: PCP Internal Medicine Geriatric Medicine; Visit Provider Nurse Practitioner Family
DX: I25.10 Atherosclerotic heart disease of native coronary artery without angina pectoris (principal); R00.2 Palpitations; I10 Essential (primary) hypertension; E78.2 Mixed hyperlipidemia
CPT/HCPCS: 93010; 99214

== ENCOUNTER → 2024-12-29 12:57 | Outpatient (BNVA) | payer MEDICAID, SELFPAY | PROVIDERS: PCP Internal Medicine Geriatric Medicine; Visit Provider Nurse Practitioner Family | DX: I25.10 Atherosclerotic heart disease of native coronary artery without angina pectoris (principal); I10 Essential (primary) hypertension; R00.2 Palpitations; E78.2 Mixed hyperlipidemia; R94.31 Abnormal electrocardiogram [ECG] [EKG] | CPT/HCPCS: 93005; 99212 ==

== ENCOUNTER 2025-02-02 13:17 | Outpatient (AMB) | payer MEDICAID, SELFPAY ==
--- NOTE | 2025-02-02 13:18 | A.OFFVIS_ITS ---
Vital Signs 02/02/25 13:26 Height 5 ft 3 in Weight 214 lb BMI 37.9 BP 130/72 Blood Pressure Location Rt brachial Position Sitting Pulse 60 Pulse Source Pulse Oximeter Pulse Oximetry (%) 98 Oxygen Delivery Method Room Air Intake Visit Reasons: constipation Intake Note: Est pt for mgmt of constipation. CC; Pt denies any GI changes or new sx since last visit. Pt confirms that her current Rx therapy is effective. Junior Business Analyst Required: Yes Junior Business Analyst Services: Junior Business Analyst Present Junior Business Analyst Name: [id number] [facility]. Information Interpreted: clinical only Accompanied by: Self / Same As Patient Allergies acetaminophen (From Vicodin) Allergy (Intermediate, Verified 02/02/25 13:19) Palpitations, Itch amoxicillin (Prevpac) Allergy (Intermediate, Verified 02/02/25 13:19) itchy throat hydrocodone (From Vicodin) Allergy (Intermediate, Verified 02/02/25 13:19) Palpitations, Itch ibuprofen (From Motrin) Allergy (Intermediate, Verified 02/02/25 13:19) UPSET STOMACH, abdominal pain lansoprazole (Prevpac) Allergy (Intermediate, Verified 02/02/25 13:19) itchy throat morphine (MORPHINE) Allergy (Intermediate, Verified 02/02/25 13:19) PALPATATIONS, PANIC ATTACKS, nauseas,panic attack, heart palpitations omeprazole (From PRILOSEC) Allergy (Intermediate, Verified 02/02/25 13:19) ITCHY THROAT pravastatin (PRAVASTATIN) Allergy (Intermediate, Verified 02/02/25 13:19) UNKNOWN rosuvastatin (From CRESTOR) Allergy (Intermediate, Verified 02/02/25 13:19) UNKNOWN terbinafine (TERBINAFINE) Allergy (Intermediate, Verified 02/02/25 13:19) UNKNOWN atorvastatin (From LIPITOR) Allergy (Unknown, Verified 02/02/25 13:19) UNKNOWN clarithromycin (From BIAXIN) Adverse Reaction (Intermediate, Verified 02/02/25 13:19) ABD PAIN, DIARRHEA gabapentin (GABAPENTIN) Adverse Reaction (Intermediate, Verified 02/02/25 13:19) UNKNOWN, nausea, dizziness levofloxacin (LEVOFLOXACIN) Adverse Reaction (Intermediate, Verified 02/02/25 13:19) PALPITATIONS tylenol with codeine Allergy (Unknown, Uncoded 02/02/25 13:19) fast heart rate HPI HPI constipation: Details: Assessment & Plan (1) Oropharyngeal dysphagia: Code(s): R13.12 - Dysphagia, oropharyngeal phase Category: Medical (2) Constipation: Code(s): K59.00 - Constipation, unspecified Category: Medical (3) Gastroparesis: Comment: she has been unable to tolerate Reglan due to dizziness so her only real options to consider gastric pacemaker going forward if her symptoms become severe. Aeb Code(s): K31.84 - Gastroparesis Category: Medical (4) GERD (gastroesophageal reflux disease): Code(s): K21.9 - Gastro-esophageal reflux disease without esophagitis Category: Medical Qualifiers: Esophagitis presence: without esophagitis Qualified Code(s): K21.9 - Gastro-esophageal reflux disease without esophagitis (5) H. pylori infection: Comment: H. pylori infection TREATMENT RESISTANT Notes: She has failed all rescue regimens I can think of, we will manage her symptoms as well as we can and consider if new treatment options develop. Code(s): A04.8 - Other specified bacterial intestinal infections Category: Medical Plan [place] #[place]ica Live Apparently she was called back by the endoscopist (Dr. Shakila wilkinson) and H pylori breath test was positive despite the biopsies being negative. This is quite puzzling. She tolerated the procedure well. 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 We has exhausted all fo the abx regimens, so there are no others to try at this time. She felt much better when she took the carafate daily, but it was very constipating. Given the chronic H pylori, I want her on the chronically, so we will get this back in faiza mix and prescribe bisacodyl for CIC. If needed I will progress to Linzess. she continues on her esomeprazole bid which was rx'ed by Dr. Reddy. ROV 8 weeks. Medications: New bisacodyl (Dulcolax (bisacodyl)) 10 mg (2 x 5 mg) PO BEDTIME 60 tabs 6RF 30 days K59.00 - Constipation, unspecified Refilled sucralfate (Carafate) 2 grams (2 x 1 gram) PO DAILY 60 tabs 6RF R19.7 - Diarrhea, unspecified esomeprazole magnesium 40 mg PO BID 60 caps 6RF A04.8 - Other specified bacterial intestinal infections, K21.9 - Gastro-esophageal reflux disease wi thout esophagitis Discontinued sennosides (Senna Laxative) Discontinued Reason: Doctor's Order 17.2 mg (2 x 8.6 mg) PO BEDTIME 60 tabs 6RF K59.00 - Constipation, unspecified famotidine (Pepcid) Discontinued Reason: Doctor's Order 40 mg PO BEDTIME 30 tabs 6RF TODAY'S VISIT [place] #[place] Live She is stable and follow might on her current regimen [facility] Medical History FH: breast cancer Pelvic pain Encounter for well woman exam with routine gynecological exam Umbilical hernia Scalp mass Irritable bowel syndrome with diarrhea Allergic rhinitis Lumbar degenerative disc disease Breast pain during Carpal tunnel syndrome Arthritis Morbid obesity with BMI of 40.0-44.9, adult Insomnia Diabetes mellitus Benign essential hypertension Polyarthralgia Fibromyalgia Mixed hyperlipidemia Candidiasis of mouth and esophagus Thoracic spondylosis Surgical History Hx of dilation and curettage History of endometrial ablation Hx of colonoscopy History of esophagogastroduodenoscopy (EGD) History of dermoid cyst excision History of excision of lamina of cervical vertebra for decompression of spinal cord H/O hemorrhoidectomy History of appendectomy Family History Father NIDDY (non-insulin dependent diabetes mellitus in young) Cardiovascular disease Obesity Cancer of unknown origin Colon cancer Mother CAD (coronary artery disease) NIDDY (non-insulin dependent diabetes mellitus in young) Brother Schizophrenia Degenerative disc disease H/O lymph node cancer Sister Breast cancer Colon cancer Paternal Grandmother Ovarian cancer, Onset Age: 45 Daughter Fibromyalgia Hypertension Cancer of unknown origin Ovarian cancer Other Mental health problem Social History Household Members: None Housing: Apartment Alcohol intake: never Patient Tobacco Use Status: Never used Tobacco e-Cigarette/Vaping Use: Never Used Second Hand Smoke Exposure: No service: No Current occupational status: disabled 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 Sexual orientation: Straight/Heterosexual Gender identity: Female Cognitive needs: No Hearing needs: Yes Vision needs: Yes Female Reproductive History Menstrual Age of Menarche: 11 Review of Systems Const Denies fatigue, Denies fever(s), Denies night sweats, Denies poor appetite and Denies weight loss ENT Reports Normal hearing present, Denies dental pain, Denies dysphagia, Denies hearing loss, Denies mouth pain, Denies odynophagia, Denies throat swelling, Denies tongue swelling and Reports other (Dentition adequate) Card Reports no additional complaints Resp Reports no additional complaints GI Details: Reports abdominal pain, Denies melena, Denies bloating, Denies hematochezia, Reports constipation, Denies GI cramping, Denies dysphagia, Denies excessive flatus, Denies early satiety, Reports heartburn, Denies diarrhea, Denies nausea, Denies odynophagia, Denies vomiting and Denies hematemesis Skin/Breast Denies pruritus, Denies lesions, Denies rash and Denies jaundice Neuro Reports Normal hearing present and Denies Abnormal speech present Endo Denies fatigue Aller/Immun Denies throat swelling and Denies tongue swelling Physical Exam Vital Signs: Last Vital Signs Pulse 60 02/02/25 13:26 BP 130/72 02/02/25 13:26 Pulse Ox 98 02/02/25 13:26 Oxygen Delivery Method Room Air 02/02/25 13:26 BMI result Body Mass Index 37.9 Const General: cooperative, no acute distress, well developed and well groomed Nutritional Appearance: well nourished and obese Orientation/consciousness: oriented to person, oriented to place and oriented to time Limitations: language barrier HEENT Head: Yes normocephalic and Yes atraumatic Eyes General: appearance normal, both eyes and all related structures Pupils: Equal, round and reactive pupils present Neck Neck: Yes normal visual inspection and Yes no lymphadenopathy Thyroid: Thyroid normal Resp Effort & Inspection: normal respiratory effort and able to speak in complete sentences Auscultation: clear to auscultation bilaterally Cardio Rate: regular rate Rhythm: regular rhythm Heart sounds: Normal, physiologic split S2 sound present Peripheral pulses: radial pulses present and posterior tibial pulses present GI Inspection: No distended, Yes Abdominal panniculus present and Yes obesity Palpation (GI): Soft to palpation, nontender, no guarding, not rigid and No hepatosplenomegaly present Percussion: Yes normal to percussion Auscultation: normal bowel sounds Rectal Exam - Female: deferred Skin General skin exam: no rashes or lesions noted, turgor normal, skin not dry, no jaundice, No spider nevi and no striae Rashes: no rashes Nails: normal Neuro General: oriented to person, oriented to place and oriented to time Cranial nerves: Yes Equal, round and reactive pupils present and Yes Normal hearing present Speech: No Abnormal speech present Extrem General: Yes normal to inspection, No clubbing, No cyanosis and No edema Psych Appearance: grossly normal and well kempt Mental Status: mental status grossly normal Speech and movement: Normal speech and movement present Affect: normal affect Attitude: cooperative Thought process: Normal thought process present and not confabulating Thought content: Normal thought content present Insight: Limited insight present (Psych) Judgement: Limited judgement present (Psych) Assessment & Plan Assessment & Plan (1) Gastroparesis: Comment: she has been unable to tolerate Reglan due to dizziness so her only real options to consider gastric pacemaker going forward if her symptoms become severe. Aeb Code(s): K31.84 - Gastroparesis Category: Medical (2) H. pylori infection: Comment: H. pylori infection TREATMENT RESISTANT Notes: She has failed all rescue regimens I can think of, we will manage her symptoms as well as we can and consider if new treatment options develop. Code(s): A04.8 - Other specified bacterial intestinal infections Category: Medical (3) GERD (gastroesophageal reflux disease): Code(s): K21.9 - Gastro-esophageal reflux disease without esophagitis Category: Medical Qualifiers: Esophagitis presence: without esophagitis Qualified Code(s): K21.9 - G vanita-esophageal reflux disease without esophagitis (4) Constipation: Code(s): K59.00 - Constipation, unspecified Category: Medical Plan [place] #[place] Live She has a chronic H pylori infection that has failed all known current antibiotic regimens. She continues on esomeprazole twice a day, Carafate, and bisacodyl for constipation. She is stable and follow might on her current regimen Return office visit in 6 months Medications: Refilled bisacodyl (Dulcolax (bisacodyl)) 10 mg (2 x 5 mg) PO BEDTIME 60 tabs 6RF 30 days K59.00 - Constipation, unspecified esomeprazole magnesium 40 mg PO BID 60 caps 6RF A04.8 - Other specified bacterial intestinal infections, K21.9 - Gastro-esophageal reflux disease without esophagitis sucralfate (Carafate) 2 grams (2 x 1 gram) PO DAILY 60 tabs 6RF R19.7 - Diarrhea, unspecified Coding Level of Care Code Est Pt Level 3 (42914) Diagnoses Gastroparesis K31.84 H. pylori infection A04.8 Gastroesophageal reflux disease without esophagitis K21.9 Esophagitis presence: without esophagitis Constipation K59.00
[2025-02-02 13:26] VITALS: BP 130/72; PULSE 60; O2SAT 98; BMI 37.9
--- OUTSIDE RECORDS SUMMARY | 2025-02-02 13:28 | XMS_ITS | Clinical Summary ---
Author Organization Formerly [facility] Address [address] [address] Phone Care Team Providers Care Floor Service Worker Spring Name Role Phone Name, Matt APPIAH Primary Care Provider [phone] Allergies Active Allergy Reactions Criticality Noted Date Comments Atorvastatin Calcium 08/07/2011 tachycardia Clarithromycin 11/21/2016 Gabapentin 12/25/2014 Nausea/ dizziness Hydrocodone-Acetaminophen 08/07/2011 Other reaction(s): increased hr palpitations Ibuprofen Rash Low 08/07/2011 GI side effect Morphine 12/25/2014 Other reaction(s): red skin/ panic/ incresed hr Nausea/ panic attack Pravastatin Sodium 08/07/2011 Headache, palpitations, SOB Rosuvastatin Calcium 08/07/2011 Myalgia Terbinafine Rash Low 10/19/2015 Other reaction(s): cellulitis hives rash Medications zolpidem (AMBIEN) 10 mg tablet TOME YOANNA TABLETA TODOS LOS D AL ACOSTARSE 2 Active sod sulf-pot chloride-mag sulf (SUTAB) 1.479-0.188- 0.225 gram Tab See Instructions, follow instructions provided by GI, # 24 tablet, 0 Refills, Maintenance, 08/21/21 8:47:00 EST, [facility]/pharmacy #[id number], Partial fill upon patient request if the prescription is for a schedule II opioid drug., follow instructions provided... 2 Active simvastatin (ZOCOR) 20 MG tablet TOME YOANNA TABLETA POR V A ORAL AL ACOSTARSE 2 Active metFORMIN (GLUCOPHAGE) 500 MG tablet TOME YOANNA TABLETA DOS VECES AL D A WITH MORNING AND EVENING MEALS 2 Active meloxicam (MOBIC) 15 MG tablet TOME YOANNA TABLETA TODOS LOS D 2 Active HYDROcodone-rob taminophen (NORCO) 5-325 mg per tablet TAKE 1 TAB EVERY 4 TO 6 HOURS NEEDED FOR PAIN PARTIAL FILL UPON PATIENT REQUEST. 2 Active hydroCHLOROthia zide (HYDRODIURIL) 25 MG tablet TOME YOANNA TABLETA POR V A ORAL TODOS LOS D 2 Active famotidine (PEPCID) 40 MG tablet Take 40 mg by mouth nightly at bedtime. at bedtime. 2 Active dicyclomine (BENTYL) 10 MG capsule TOME YOANNA C PSULA CUATRO VECES AL D A ANTES DE LAS COMIDAS 2 Active diclofenac sodium (VOLTAREN) 1 % Gel APPLY 2 GRAMS TO AFFECTED AREA DOS VECES AL D A 2 Active carvedilol (COREG) 6.25 MG tablet TOME YOANNA TABLETA DOS VECES AL D A CON ALIMENTO 2 Active SYMBICORT 160-4.5 mcg/actuation inhaler INHALE DANDO DOS SOPLIDOS DOS VECES AL D A 2 Active FREESTYLE LITE Strp strips USE 1 BY TO SKIN ROUTE EVERY DAY 2 Active aspirin 81 MG EC tablet TOME YOANNA TABLETA TODOS LOS D 2 Active Social History Tobacco Use Types Packs/Day Years Used Date Smoking Tobacco: Never Assessed Education Answer Date Recorded Are you interested in more education? Not on anita e 10/11/2022 Are you concerned about learning? Not on file 10/11/2022 No 10/11/2022 No 10/11/2022 Digital Access Answer Date Recorded No 11/11/2022 No 11/11/2022 Reliable internet access at home? Not on file 11/11/2022 Device with a working camera? Not on file Comments Unknown Sex and Gender Information Value Date Recorded Sex Assigned at Not on file Legal Sex Female 3:57 PM EDT Gender Identity Not on file Sexual Orientation Not on file Last Filed Vital Signs Vital Sign Reading Time Taken Comments Blood Pressure 151/79 04/18/2022 1:47 PM EDT Pulse 69 04/18/2022 1:47 PM EDT Temperature - - Respiratory Rate - - Oxygen Saturation - - Inhaled Oxygen Concentration - - Weight 102.8 kg (226 lb 9.6 oz) 04/18/2022 1:47 PM EDT Height 160 cm (5' 3 ) 04/18/2022 1:47 PM EDT Body Mass Index 40.14 04/18/2022 1:47 PM EDT Plan of Treatment Health Maintenance Due Date Last Done Comments CREATININE LEVEL 1970 LIPID PANEL 1970 POTASSIUM LEVEL 1970 DEPRESSION SCREENING 1982 SMOKING Hx and SMOKELESS TOB ACCO SCREENING 1983 HEPATITIS C SCREENING 1988 HIV ONE-TIME SCREENING (18-6 5 YEARS) 1988 PAP SMEAR 1991 SCREENING FOR DIABETES 2005 MAMMOGRAM 2010 COLOGUARD 2015 COLONOSCOPY 2015 COLORECTAL CANCER SCREENING 2015 FIT TEST 2015 FOBT 2015 SIGMOIDOSCOPY 2015 VIRTUAL COLONOSCOPY 2015 PNEUMOCOCCAL VACCINES (50+ y ears) (1 of 1 - PCV) 2020 ZOSTER VACCINES (1 of 2) 2020 COVID-19 VACCINE (1 - 2023-2 5 season) 2024 Adult Td,Tdap Booster 05/11/2027 05/11/2017 HEPATITIS A VACCINES Aged Out No long er eligible based on patient's age to complete this topic HIB VACCINES Aged Out No longer eligi ble based on patient's age to complete this topic MENINGOCOCCAL VACCINES (ACWY) Aged Out No longer eligible based on patient's age to complete this topic MENINGOCOCCAL VACCINES (B) Aged Out N o longer eligible based on patient's age to complete this topic Medical Devices Not on file Insurance [facility] [address] [place] [address] [place] [address] [place] [address] [place] [address] C3 [employer] [facility] C3 ACO Care Teams Floor Service Worker Spring Relationship Specialty Start Date End Date Name, MD Matt [address] [place] [id number] PCP - General Geriatric Psychiatry 04/16/22 Additional Source Comments The information contained in this document represents components of the legal health record. It is not the complete legal health record.Formerly [facility]
--- OUTSIDE RECORDS SUMMARY | 2025-02-02 13:28 | XMS_ITS | Encounter Summary ---
Author Organization [employer] Address [address] [facility] 7[address] [place] [address] Care Team Providers Care Supervisor Fertilizer Processing Name Role Phone Name, Matt APPIAH Primary Care Provider [phone] Reason for Visit * Reason Onset Date Comments Med Refill 09/24/2023 Encounter Details Date Type Department Care Team (Late st Contact Info) Description 09/24/[address] [facility] MEDICINE [address] [place] [address] Name, MD Matt [address] [place] [address] Med Refill Social History Tobacco Use Types [...] 10 MG tablet To be sent to: [facility] - [place], [place] - [id number] [place] - [address] documented in this encounter Plan of Treatment Upcoming Encounters Date Type Department Care Team (Late st Contact Info) Description 03/14/2025 1:00 PM EDT Office Visit [facility] MEDICINE [address] [place] [address] Name, MD Matt [address] [place] [address] documented as of this encounter Visit Diagnoses Not on filedocumented in this encounter Additional Health Concerns Assessment Noted Time PHQ-9 Depression Total Score: 0 09/07/19 24 3:15 PM EDT documented as of this encounter Care Teams Supervisor Fertilizer Processing Relationship Specialty Start Date End Date Name, MD Matt [address] [place] [id number] PCP - General Family Medicine 02/21/22 Estephanie Tan News Technical DirectorMold Maker Plastic Molds 11/24/23 documented as of this encounter
--- OUTSIDE RECORDS SUMMARY | 2025-02-02 13:28 | XMS_ITS | Clinical Summary ---
Author Organization [address] [facility] Address [address] [place] [address] Phone Care Team Providers Care Area Sales Manager Name Role Phone Name, Matt APPIAH Primary Care Provider Allergies Active Allergy Reactions Criticality Noted Date [...] 4 0.0-44.9, adult ([facility] V24, [facility] V28) 03/16/2024 Chronic low back pain with sciatica 03/16/2024 Class 2 obesity 11/06/2023 Premenstrual symptom 05/23/2019 Kari esophagitis ([facility] V24, [facility] V28) 0 10/08/2018 Overview (03/16/2024): [place] [facility] Helicobacter pylori (H. pylori) infection 2018 Overview (03/16/2024): F/[place] [facility] Seborrheic dermatitis 06/25/2018 Scalp psoriasis 04/13/2018 Hemorrhoids 06/04/2017 Overview (03/16/2024): Internal & external Nonalcoholic steatohepatitis (HURD) 06/04/2017 Insomnia 08/23/2015 Carpal tunnel syndrome 12/25/2014 Overview (03/16/2024): Bilateral - negative EMG at [facility] 2014 Migraine 12/25/2014 Old [place] (myocardial infarction) 12/25/2014 Overview (03/16/2024): 1998/ Dr Perez Osteoarthritis 12/25/2014 Overview (03/16/2024): Hands, knees, spine Tricuspid regurgitation 12/25/2014 Overview (03/16/2024): Mild tricuspid / mild pulmonic Fibromyalgia 10/16/2014 Psoriasis 10/16/2014 Asthma 08/07/2011 GERD (gastroesophageal reflux disease) 2 Overview (03/16/2024): H/o H.pylori x 3 Hyperlipidemia 08/07/2011 Hypertension 08/07/2011 Overview (03/16/2024): Follows with cardiology Type 2 diabetes mellitus wit h neurological manifestations, controlled ([facility] V24, [facility] V28) 08/07/2011 Immunizations Name Administration Dates Next Due Hepatitis B ([id number] , Recombivax HB-Adult) 19yo and older 03/13/2009,02/16/2008,01/11/2008 [...] neurological manifestations, controlled ([facility] V24, [facility] V28) 08/07/2011 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, controlled ([facility]) Tricuspid regurgitation 12/25/2014 DX:Tricu spid regurgitation; COMMENT: Mild tricuspid / mild pulmonic Old [place] (myocardial infarction) 12/25/2014 D X:Old CO (myocardial infarction); COMMENT: Ej/ Dr Perez Hyperlipidemia [...] Internal & external Kari esophagitis ([facility] V24, [facility] V28) 10/08/2018 DX:Kari esophagitis ([facility]) ; COMMENT: [facility] [...] PM EDT Office Visit Orthopedic Surgery - [place] [address] [phone] Smooth Sharp, DPM [address] [address] Health Maintenance Due Date Last Done Comments [...] Cancer Screening: HPV 05/19/2024 05/19/2019 Depression Screening 06/15/2024 Influenza Vaccine (#1) 2025 Diabetes: Blood Sugar [...] BMP Blood Test abstracted us Historical Provider MD HEALTH MAINTENANCE Final Result * (ABNORMAL) Hemoglobin A1c (08/27/2019) Hemoglobin A1C 6.6(A) <=6.5 % Blood Venous blood specimen / Unknown [facility] Provider LAB BLOOD ORDERABLES Behzad l Result * Cervical Cancer Screening: HPV (05/19/2019) [facility] Cervical Cancer Screening: HPV negative, abstracted Result [facility] Provider HEALTH MAINTENANCE Final Result * Urine Albumin Creatinine Ratio (02/18/2019) Pathologist [facility] Urine Albumin Creatinine Ratio abstracted [facility] Provider HEALTH MAINTENANCE Final Result * (ABNORMAL) Lipid panel (02/18/2019) [facility] LDL/HDL Ratio 7(A) 0 - 4 Triglycerides 443(A) 0 - 150 mg/dL Cholesterol 185 0 - 200 mg/dL HDL 27(A) >=40 mg/dL LDL Cholesterol 70 0 - 100 mg/dL Blood Venous blood specimen / Unknown Result [facility] Provider LAB BLOOD ORDERABLES Behzad l Result * Colonoscopy (09/24/2015) [facility] Colonoscopy no interpretation , abstracted Anatomical Region Laterality Modality Other Result [facility] Provider HEALTH MAINTENANCE Final Result from Last 3 Months or Most Recently Relevant to Health Maintenance Insurance MEDICAID - [place] Care Teams Area Sales Manager Relationship Specialty Start Date End Date Name, MD Matt [address] [place], [place] PCP - General 07/08/22
== END 2025-02-02 13:40 | disposition home or self-care (01) ==
LOC: HO.HGI 13:17
PROVIDERS: PCP Internal Medicine Geriatric Medicine; Visit Provider Nurse Practitioner
DX: K31.84 Gastroparesis (principal); A04.8 Other specified bacterial intestinal infections; K21.9 Gastro-esophageal reflux disease without esophagitis; K59.00 Constipation, unspecified
CPT/HCPCS: 99213

== ENCOUNTER → 2025-02-02 13:17 | Outpatient (BNVA) | payer MEDICAID, SELFPAY | PROVIDERS: PCP Internal Medicine Geriatric Medicine; Visit Provider Nurse Practitioner | DX: K31.84 Gastroparesis (principal); A04.8 Other specified bacterial intestinal infections; K59.00 Constipation, unspecified; R13.12 Dysphagia, oropharyngeal phase; K21.9 Gastro-esophageal reflux disease without esophagitis | CPT/HCPCS: 99212 ==

== ENCOUNTER 2025-02-23 14:37 | Outpatient (REF) | payer MEDICAID, SELFPAY | END 2025-02-23 14:38 | disposition home or self-care (01) | LOC: HO.LNP 14:37 | PROVIDERS: PCP Internal Medicine Geriatric Medicine; Visit Provider Advanced Practice Midwife | DX: Z13.89 Encounter for screening for other disorder (principal) | CPT/HCPCS: 81003; 99212 ==

== ENCOUNTER 2025-02-23 15:29 | Outpatient (REF) | payer MEDICAID, SELFPAY ==
--- OUTSIDE RECORDS SUMMARY | 2025-02-23 18:39 | XMS_ITS | Encounter Summary ---
Author Organization [facility] Address [address] [place] [address] Support Name Relationship Address Phone Kimo Sprague Emergency Contact [address] [facility] [address] [place] [address] Care Team Providers Care Utilization Reviewer Name Role Phone Makayla Sam DO Primary Care Pro vider Unavailable Anila Craven MD Primary Care Provider Un available Stacy Parry MD Primary Care Provider Unavail able Victoriano Smith MD Primary Care Provider Unava ilable Name, Matt APPIAH Primary Care Provider UnavailReyna Yañez MD Unavailable [phone] Chris Wallace PA-C Unavailable Latoya Hardy PA-C Unavailable Encounter Details Date Type Department Care Team Description 02/08/2016 Refill Adult [address] [address] Makayla Sam DO Social History Tobacco Use [...] on filedocumented in this encounter Care Teams Utilization Reviewer Relationship Specialty Start Date End Date Makayla Sam DO PCP - General Internal Medicine 10/10/14 09/02/16 Anila Craven MD PCP - General Internal Medicine 09/03/16 9 Stacy Parry MD PCP - General Internal Medicine 02/21/19 01/20/20 Victoriano Smith MD PCP - General Internal Medicine 01/21/20 07/07/22 Matt Wu MD PCP - General Internal Medicine 07/08/22 Reyna Laboy MD [address] [id number] Specialist Neurosurgery 12/22/23 Chris Wallace PA-C [address] [facility] [address] [place] [address] Specialist Neurosurgery 03/10/24 Latoya Hardy PA-C [address] [id number] Specialist Neurosurgery 03/10/24 documented as of this encounter
--- OUTSIDE RECORDS SUMMARY | 2025-02-23 18:39 | XMS_ITS | Encounter Summary ---
Author Organization [facility] Address [address] [place] [address] Support Name Relationship Address Phone Kimo Sprague Emergency Contact [address] [facility] [address] [place] [address] Care Team Providers Care Aluminum Siding Mechanic Name Role Phone Makayla Sam DO Primary Care Pro vider Unavailable Anila Craven MD Primary Care Provider Un available Stacy Parry MD Primary Care Provider Unavail able Victoriano Smith MD Primary Care Provider Unava ilable Name, Matt APPIAH Primary Care Provider UnavailReyna Yañez MD Unavailable [phone] Chris Wallace PA-C Unavailable Latoya Hardy PA-C Unavailable Encounter Details Date Type Department Care Team Description 09/06/2015 Meat Sales And Storage Manager Report Medical Records [address] [place] [address] Rj Nevarez MD Social History Tobacco Use [...] on filedocumented in this encounter Care Teams Aluminum Siding Mechanic Relationship Specialty Start Date End Date Makayla Sam DO PCP - General Internal Medicine 10/10/14 09/02/16 Anila Craven MD PCP - General Internal Medicine 09/03/16 9 Stacy Parry MD PCP - General Internal Medicine 02/21/19 01/20/20 Victoriano Smith MD PCP - General Internal Medicine 01/21/20 07/07/22 Matt Wu MD PCP - General Internal Medicine 07/08/22 Reyna Laboy MD [address] [address] Specialist Neurosurgery 12/22/23 Chris Wallcae PA-C [address] [address] Specialist Neurosurgery 03/10/24 Latoya Hardy PA-C [address] [address] Specialist Neurosurgery 03/10/24 documented as of this encounter
--- OUTSIDE RECORDS SUMMARY | 2025-02-23 18:39 | XMS_ITS | Encounter Summary ---
Author Organization [facility] Address [address] [place] [address] Support Name Relationship Address Phone Kimo Sprague Emergency Contact [address] [facility] [address] [place] [address] Care Team Providers Care Drapery Operator Name Role Phone Anila Cravne MD Primary Care Provider Un available Stacy Parry MD Primary Care Provider Unavail able Victoriano Smith MD Primary Care Provider Unava ilable Name, Matt APPIAH Primary Care Provider Unavailabl e Reyna Laboy MD Unavailable [phone] Chris Wallace PA-C Unavailable Latoya Hardy PA-C Unavailable Encounter Details Date Type Department Care Team Description 01/28/2017 [facility] Medical Records [address] [place] [address] Abstract, Provider Social History Tobacco Use Types [...] on filedocumented in this encounter Care Teams Drapery Operator Relationship Specialty Start Date End Date Anila Craven MD PCP - General Internal Medicine 09/03/16 9 Stacy Parry MD PCP - General Internal Medicine 02/21/19 01/20/20 Victoriano Smith MD PCP - General Internal Medicine 01/21/20 07/07/22 Matt Wu MD PCP - General Internal Medicine 07/08/22 Reyna Laboy MD [address] [address] Specialist Neurosurgery 12/22/23 Chris Wallace PA-C [address] [address] Specialist Neurosurgery 03/10/24 Latoya Hardy PA-C [address] [address] Specialist Neurosurgery 03/10/24 documented as of this encounter
--- OUTSIDE RECORDS SUMMARY | 2025-02-23 18:40 | XMS_ITS | Encounter Summary ---
Author Organization [facility] Address [address] [place] [address] Support Name Relationship Address Phone Kimo Sprague Emergency Contact [address] [facility] [address] [place] [address] Care Team Providers Care Manager Bakery Name Role Phone Makayla Sam DO Primary Care Pro vider Unavailable Anila Craven MD Primary Care Provider Un available Stacy Parry MD Primary Care Provider Unavail able Victoriano Smith MD Primary Care Provider Unava ilable Name, Matt APPIAH Primary Care Provider UnavailReyna Yañez MD Unavailable [phone] Chris Wallace PA-C Unavailable Latoya Hardy PA-C Unavailable [phone] Encounter Details Date Type Department Care Team Description 04/17/2016 Mosaicist Report Medical Records [address] [place] [address] Joana Chu MD Social History Tobacco Use [...] filedocumented in this encounter Care Teams Manager Bakery Relationship Specialty Start Date End Date Makayla Sam DO PCP - General Internal Medicine 10/10/14 09/02/16 Anila Craven MD PCP - General Internal Medicine 09/03/16 9 Stacy Parry MD PCP - General Internal Medicine 02/21/19 01/20/20 Victoriano Smith MD PCP - General Internal Medicine 01/21/20 07/07/22 Matt Wu MD PCP - General Internal Medicine 07/08/22 Reyna Laboy MD [address] [address] Specialist Neurosurgery 12/22/23 Chris Wallace PA-C 175 [facility] [address] [place] [address] Specialist Neurosurgery 03/10/24 Latoya Hardy PA-C [address] [address] Specialist Neurosurgery 03/10/24 documented as of this encounter
--- OUTSIDE RECORDS SUMMARY | 2025-02-23 18:40 | XMS_ITS | Encounter Summary ---
Author Organization [facility] Address [address] [place] [address] Support Name Relationship Address Phone Kimo Sprague Emergency Contact [address] [facility] [address] [place] [address] Care Team Providers Care Painter Foreman Name Role Phone Makayla Sam DO Primary Care Pro vider Unavailable Anila Craven MD Primary Care Provider Un available Stacy Parry MD Primary Care Provider Unavail able Victoriano Smith MD Primary Care Provider Unava ilable Bryce, Matt APPIAH Primary Care Provider Unavailabl Reyna León MD Unavailable [phone] Chris Wallace PA-C Unavailable [phone] Latoya Hardy PA-C Unavailable [phone] Encounter Details Date Type Department Care Team Description 02/11/2016 Power Generation Equipment Repairer Report Medical Records [address] [place] [address] Cecilia Mcgregor, DESIRAE, LDN 175 [facility] [address] [place] [address] Social History Tobacco Use Types Packs/Day Years Used Date Smoking Tobacco: Never Alcohol Use Standard Drinks/Week Comments No 0 (1 standard drink = 0.6 oz pur e alcohol) Sex Assigned at Date Recorded Not on file documented as of this encounter Plan of Treatment Not on file documented as of this encounter Visit Diagnoses Not on filedocumented in this encounter Care Teams Painter Foreman Relationship Specialty Start Date End Date Makayla Sam DO PCP - General Internal Medicine 10/10/14 09/02/16 Anila Craven MD PCP - General Internal Medicine 09/03/16 9 Stacy Parry MD PCP - General Internal Medicine 02/21/19 01/20/20 Victoriano Smith MD PCP - General Internal Medicine 01/21/20 07/07/22 Matt Wu MD PCP - General Internal Medicine 07/08/22 Reyna Laboy MD [address] [address] Specialist Neurosurgery 12/22/23 Chris Wallace PA-C 175 [facility] [address] [place] [address] Specialist Neurosurgery 03/10/24 Latoya Hardy PA-C [address] [address] Specialist Neurosurgery 03/10/24 documented as of this encounter
--- OUTSIDE RECORDS SUMMARY | 2025-02-23 18:40 | XMS_ITS | Encounter Summary ---
Author Organization [facility] Address [address] [place] [address] Support Name Relationship Address Phone Kimo Sprague Emergency Contact [address] [facility] [address] [place] [address] Care Team Providers Care Disposal Man Name Role Phone Makayla Sam DO Primary Care Pro vider Unavailable Anila Craven MD Primary Care Provider Un available Stacy Parry MD Primary Care Provider Unavail able Victoriano Smith MD Primary Care Provider Unava ilable Name, Matt APPIAH Primary Care Provider UnavailReyna Yañez MD Unavailable [phone] Chris Wallace PA-C Unavailable [phone] Latoya Hardy PA-C Unavailable [phone] Encounter Details Date Type Department Care Team Description 05/02/2016 [facility] Medical Records [address] [place] [id number] Abstract, Provider Social History Tobacco Use Types [...] on filedocumented in this encounter Care Teams Disposal Man Relationship Specialty Start Date End Date Makayla Sam DO PCP - General Internal Medicine 10/10/14 09/02/16 Anila Craven MD PCP - General Internal Medicine 09/03/16 9 Stacy Parry MD PCP - General Internal Medicine 02/21/19 01/20/20 Victoriano Smith MD PCP - General Internal Medicine 01/21/20 07/07/22 Bryce, MD Matt PCP - General Internal Medicine 07/08/22 Reyna Laboy MD [address] [id number] Specialist Neurosurgery 12/22/23 Chris Wallace PA-C [address] [address] Specialist Neurosurgery 03/10/24 Latoya Hardy PA-C [address] [address] Specialist Neurosurgery 03/10/24 documented as of this encounter
--- OUTSIDE RECORDS SUMMARY | 2025-02-23 18:40 | XMS_ITS | Encounter Summary ---
Author Organization [facility] Address [address] [place] [address] Support Name Relationship Address Phone Kimo Sprague Emergency Contact [address] [facility] [address] [place] [address] Care Team Providers Care Denture Laboratory Technician Name Role Phone Stacy Parry MD Primary Care Provider Unavail able Victoriano Smith MD Primary Care Provider Unava ilable Name, Matt APPIAH Primary Care Provider UnavailReyna Yañez MD Unavailable [phone] Chris Wallace PA-C Unavailable Latoya Hardy PA-C Unavailable Reason for Visit * Reason Onset Date Comments refill request 04/25/2019 Encounter Details Date Type Department Care Team Description 04/25/2019 Refill Adult Medicine [address] [address] Stacy Parry MD refill request Social History Tobacco Use Types Packs/Day Years Used Date Smoking Tobacco: Never Smokeless Tobacco: Never Alcohol Use Standard Drinks/Week Comments No 0 (1 standard drink = 0.6 oz pur e alcohol) Sex Assigned at Date Recorded Not on file documented as of this encounter Miscellaneous Notes * Telephone Encounter - Kirstin Lanier R.N. - 04/26/2019 12:20 PM EST [phone] (home) Pt to see dr /pcp 05/05 [...] N/A Patients current insurance carrier is: Payor: [employer] / Plan: [employer] [facility] / Product Type: MEDICAID RISK documented in this encounter Plan of Treatment Not on file documented as of this encounter Visit Diagnoses Diagnosis Hospital discharge follow-up Other follow-up examination documented in this encounter Care Teams Denture Laboratory Technician Relationship Specialty Start Date End Date Stacy Parry MD PCP - General Internal Medicine 02/21/19 01/20/20 Victoriano Smith MD PCP - General Internal Medicine 01/21/20 07/07/22 Matt Wu MD PCP - General Internal Medicine 07/08/22 Reyna Laboy MD [address] [address] Specialist Neurosurgery 12/22/23 Chris Wallace PA-C [address] [address] Specialist Neurosurgery 03/10/24 Latoya Hardy PA-C [address] [address] Specialist Neurosurgery 03/10/24 documented as of this encounter
--- OUTSIDE RECORDS SUMMARY | 2025-02-23 18:40 | XMS_ITS | Encounter Summary ---
Author Organization [facility] Address [address] [place] [address] Support Name Relationship Address Phone Kimo Sprague Emergency Contact [address] [facility] [address] [place] [address] Care Team Providers Care Vehicle Service Attendant Name Role Phone Anila Craven MD Primary Care Provider Un available Stacy Parry MD Primary Care Provider Unavail able Victoriano Smith MD Primary Care Provider Unava ilable Matt Wu MD Primary Care Provider UnavailReyna Yañez MD Unavailable [phone] Chris Wallace PA-C Unavailable Latoya Hardy PA-C Unavailable Encounter Details Date Type Department Care Team Description 01/19/[address] [address] Anila Craven MD Social History Tobacco Use [...] on filedocumented in this encounter Care Teams Vehicle Service Attendant Relationship Specialty Start Date End Date Anila Craven MD PCP - General Internal Medicine 09/03/16 9 Stacy Parry MD PCP - General Internal Medicine 02/21/19 01/20/20 Victoriano Smith MD PCP - General Internal Medicine 01/21/20 07/07/22 Matt Wu MD PCP - General Internal Medicine 07/08/22 Reyna Laboy MD [address] [phone] Specialist Neurosurgery 12/22/23 Chris Wallace PA-C [address] [address] Specialist Neurosurgery 03/10/24 Latoya Hardy PA-C [address] [address] Specialist Neurosurgery 03/10/24 documented as of this encounter
--- OUTSIDE RECORDS SUMMARY | 2025-02-23 18:40 | XMS_ITS | Encounter Summary ---
Author Organization [facility] Address [address] [place] [address] Support Name Relationship Address Phone Kimo Sprague Emergency Contact [address] [facility] [address] [place] [address] Care Team Providers Care Armored Car Messenger Name Role Phone Makayla Sam DO Primary Care Pro vider Unavailable Anila Craven MD Primary Care Provider Un available Stacy Parry MD Primary Care Provider Unavail able Victoriano Smith MD Primary Care Provider Unava ilable Name, Matt APPIAH Primary Care Provider UnavailReyna Yañez MD Unavailable [phone] Chris Wallace PA-C Unavailable Latoya aHrdy PA-C Unavailable [phone] Encounter Details Date Type Department Care Team Description 04/30/2016 Agency Operator Report Medical Records [address] [place] [address] Abstract, Provider Social History Tobacco Use Types [...] on filedocumented in this encounter Care Teams Armored Car Messenger Relationship Specialty Start Date End Date Makayla Sam DO PCP - General Internal Medicine 10/10/14 09/02/16 Anila Craven MD PCP - General Internal Medicine 09/03/16 9 Stacy Parry MD PCP - General Internal Medicine 02/21/19 01/20/20 Victoriano Smith MD PCP - General Internal Medicine 01/21/20 07/07/22 Matt Wu MD PCP - General Internal Medicine 07/08/22 Reyna Laboy MD [address] [id number] Specialist Neurosurgery 12/22/23 Chris Wallace PA-C [address] [phone] Specialist Neurosurgery 03/10/24 Latoya Hardy PA-C [address] [id number] Specialist Neurosurgery 03/10/24 documented as of this encounter
--- OUTSIDE RECORDS SUMMARY | 2025-02-23 18:40 | XMS_ITS | Encounter Summary ---
Author Organization [facility] Address [address] [place] [address] Support Name Relationship Address Phone Kimo Sprague Emergency Contact [address] [facility] [address] [place] [address] Care Team Providers Care Intervention Nurse Name Role Phone Anila Craven MD Primary Care Provider Un available Stacy Parry MD Primary Care Provider Unavail able Victoriano Smith MD Primary Care Provider Unava ilable Name, Matt APPIAH Primary Care Provider Unavailabl e Reyna Laboy MD Unavailable [phone] Chris Wallace PA-C Unavailable [phone] Latoya Hardy PA-C Unavailable Encounter Details Date Type Department Care Team Description 08/19/2017 [facility] Medical Records [address] [place] [address] Abstract, Provider Social History Tobacco Use Types [...] on filedocumented in this encounter Care Teams Intervention Nurse Relationship Specialty Start Date End Date Anila Craven MD PCP - General Internal Medicine 09/03/16 9 Stacy Parry MD PCP - General Internal Medicine 02/21/19 01/20/20 Victoriano Smith MD PCP - General Internal Medicine 01/21/20 07/07/22 Matt Wu MD PCP - General Internal Medicine 07/08/22 Reyna Laboy MD [address] [address] Specialist Neurosurgery 12/22/23 Chris Wallace PA-C [address] [address] Specialist Neurosurgery 03/10/24 Latoya Hardy PA-C [address] [address] Specialist Neurosurgery 03/10/24 documented as of this encounter
--- OUTSIDE RECORDS SUMMARY | 2025-02-23 18:40 | XMS_ITS | Encounter Summary ---
Author Organization [facility] Address [address] [place] [address] Support Name Relationship Address Phone Kimo Sprague Emergency Contact [address] [facility] [address] [place] [address] Care Team Providers Care Cdl Program Coordinator Name Role Phone Anila Craven MD Primary Care Provider Un available Stacy Parry MD Primary Care Provider Unavail able Victoriano Smith MD Primary Care Provider Unava ilable Name, Matt APPIAH Primary Care Provider Unavailabl e Reyna Laboy MD Unavailable [phone] Chris Wallace PA-C Unavailable [phone] Latoya Hardy PA-C Unavailable Encounter Details Date Type Department Care Team Description 11/25/2016 [facility] Controlled Substance Contract Medical Records [address] [place] [address] Abstract, Provider Social History Tobacco Use Types [...] on filedocumented in this encounter Care Teams Cdl Program Coordinator Relationship Specialty Start Date End Date Anila Craven MD PCP - General Internal Medicine 09/03/16 9 Stacy Parry MD PCP - General Internal Medicine 02/21/19 01/20/20 Victoriano Smith MD PCP - General Internal Medicine 01/21/20 07/07/22 Matt Wu MD PCP - General Internal Medicine 07/08/22 Reyna Laboy MD [address] [address] Specialist Neurosurgery 12/22/23 Chris Wallace PA-C [address] [address] Specialist Neurosurgery 03/10/24 Latoya Hardy PA-C [address] [address] Specialist Neurosurgery 03/10/24 documented as of this encounter
--- OUTSIDE RECORDS SUMMARY | 2025-02-23 18:40 | XMS_ITS | Encounter Summary ---
Author Organization [facility] Address [address] [place] [address] Support Name Relationship Address Phone Kimo Sprague Emergency Contact [address] [facility] [address] [place] [address] Care Team Providers Care Bakery Helper Name Role Phone Anila Craven MD Primary Care Provider Un available Stacy Parry MD Primary Care Provider Unavail able Victoriano Smith MD Primary Care Provider Unava ilable Name, Matt APPIAH Primary Care Provider UnavailReyna Yañez MD Unavailable [phone] Chris Wallace PA-C Unavailable [phone] Latoya Hardy PA-C Unavailable Encounter Details Date Type Department Care Team Description 01/06/2019 Press Box Custodian Report Medical Records [address] [place] [address] [facility] [address] [place], [place] [phone] Social History Tobacco Use Types Packs/Day Years [...] on filedocumented in this encounter Care Teams Bakery Helper Relationship Specialty Start Date End Date Anila Craven MD PCP - General Internal Medicine 09/03/16 9 Stacy Parry MD PCP - General Internal Medicine 02/21/19 01/20/20 Victoriano Smith MD PCP - General Internal Medicine 01/21/20 07/07/22 Matt Wu MD PCP - General Internal Medicine 07/08/22 Reyna Laboy MD [address] [phone] Specialist Neurosurgery 12/22/23 Chris Wallace PA-C [address] [phone] Specialist Neurosurgery 03/10/24 Latoya Hardy PA-C [address] [address] Specialist Neurosurgery 03/10/24 documented as of this encounter
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
--- OUTSIDE RECORDS SUMMARY | 2025-02-23 18:40 | XMS_ITS | Encounter Summary ---
Author Organization [facility] Address [address] [place] [address] Support Name Relationship Address Phone Kimo Sprague Emergency Contact [address] [facility] [address] [place] [address] Care Team Providers Care Pretzel Twisting Machine Operator Name Role Phone Name, Matt APPIAH Primary Care Provider Unavailabl e Reyna Laboy MD Unavailable [phone] Chris Wallace PA-C Unavailable Latoya Hardy PA-C Unavailable Encounter Details Date Type Department Care Team Description 12/23/[address] [facility] Medical [facility] Neurosurgery Rhodhiss Vancleave [address] [id number] Reyna Laboy MD [address] [address] Social History Tobacco Use Types Packs/Day Years [...] on filedocumented in this encounter Care Teams Pretzel Twisting Machine Operator Relationship Specialty Start Date End Date Name, MD Matt PCP - General Internal Medicine 07/08/22 Reyna Laboy MD [address] [address] Specialist Neurosurgery 12/22/23 Chris Wallace PA-C [address] [address] Specialist Neurosurgery 03/10/24 Latoya Hardy PA-C 175 [facility] [address] [place] [address] Specialist Neurosurgery 03/10/24 documented as of this encounter
--- OUTSIDE RECORDS SUMMARY | 2025-02-23 18:40 | XMS_ITS | Encounter Summary ---
Author Organization [facility] Address [address] [place] [address] Support Name Relationship Address Phone Kimo Sprague Emergency Contact [address] [facility] [address] [place] [address] Care Team Providers Care Manager English Name Role Phone Stacy Parry MD Primary Care Provider Unavail able Victoriano Smith MD Primary Care Provider Unava ilable Matt Wu MD Primary Care Provider UnavailReyna Yañez MD Unavailable [phone] Chris Wallace PA-C Unavailable [phone] Latoya Hardy PA-C Unavailable [phone] Encounter Details Date Type Department Care Team Description 10/27/2019 Hat Blocking Machine Operator Report Medical Records [address] [place] [address] Fly Vogt MD Social History Tobacco Use [...] filedocumented in this encounter Care Teams Manager English Relationship Specialty Start Date End Date Stacy Parry MD PCP - General Internal Medicine 02/21/19 01/20/20 Victoriano Smith MD PCP - General Internal Medicine 01/21/20 07/07/22 Matt Wu MD PCP - General Internal Medicine 07/08/22 Reyna Laboy MD 175 [facility] [address] [place], [place] [phone] Specialist Neurosurgery 12/22/23 Chris Wallace PA-C 175 [facility] [address] [place] [id number] Specialist Neurosurgery 03/10/24 Latoya Hardy PA-C [address] [address] Specialist Neurosurgery 03/10/24 documented as of this encounter
--- OUTSIDE RECORDS SUMMARY | 2025-02-23 18:40 | XMS_ITS | Encounter Summary ---
Author Organization [facility] Address [address] [place] [address] Support Name Relationship Address Phone Kimo Sprague Emergency Contact [address] [facility] [address] [place] [address] Care Team Providers Care Orthodontic Technician Name Role Phone Anila Craven MD Primary Care Provider Un available Stacy Parry MD Primary Care Provider Unavail able Victoriano Smith MD Primary Care Provider Unava ilable Bryce, Matt APPIAH Primary Care Provider UnavailReyna Yañez MD Unavailable [phone] Chris Wallace PA-C Unavailable [phone] Latoya Hardy PA-C Unavailable [phone] Reason for Visit * Reason Onset Date Comments Prior Authorization 10/14/2017 [facility] Encounter Details Date Type Department Care Team Description 10/14/2017 Telephone Adult Medicine [address] [address] Alicia Crabtree PA-C [address] [place] [id number] Prior Authorization ([facility]) Social History Tobacco [...] Thank you [place] p [phone] prior authorization pool Jacqueline Aguiar C.M.A. [facility] Prior Authorizations Ext: [phone] * Telephone Encounter - Alicia Crabtree PA-C - 10/19/2017 4:40 PM EDT noted * Telephone Encounter - Alessia Jorge M.A. - 10/19/2017 1:17 PM EDT Esomeprazole 20mg cap, I bid Dx refractory gerd, pt states symptoms come back with 1 a day Tried omeprazole in past Form faxed to [facility] [place] * Telephone Encounter - Smooth Kauffman - [...] Please advise Please reply back to p [phone] Prior Auth pool Alessia Jorge M.A. [facility] Prior Authorizations Ext [phone] * Telephone Encounter - Alessia Jorge M.A. - 10/15/2017 4:21 PM EDT Prior auth form is being faxed to me from [facility] [place] * Telephone Encounter - Dulce Ryan M.A. - 10/15/2017 2:19 PM EDT [phone] (home) Verify with pharmacy insurance changed will [...] Please advise. Jing FARLEY dept Ext [phone] * Telephone Encounter - Ann Lizama - 10/14/2017 8:00 AM EDT Pre Authorization for Medication-do not complete and send this encounter unless you have the fax from the pharmacy. Is this a Cover My Meds request: [place] of Medication esomeprazole (NEXIUM) 20 MG capsule Dose of Medication 20 MG capsule How does patient take this med? Take 1 Cap by mouth 2 times daily. What Pharmacy did the fax come from: [facility] fax #: [phone] Third Green Party Information from fax: What Prescription Plan does the patient have? BIN/PCN if applicable: [id number] Cardholder ID:[id number] Person Code: BCAID Relationship Code: 01 Help desk phone: [phone] documented in this encounter Plan of Treatment Not on file documented as of this encounter Visit Diagnoses Not on filedocumented in this encounter Care Teams Orthodontic Technician Relationship Specialty Start Date End Date Anila Craven MD PCP - General Internal Medicine 09/03/16 9 Stacy Parry MD PCP - General Internal Medicine 02/21/19 01/20/20 Victoriano Smith MD PCP - General Internal Medicine 01/21/20 07/07/22 NameMatt MD PCP - General Internal Medicine 07/08/22 Reyna Laboy MD [address] [address] Specialist Neurosurgery 12/22/23 Chris Wallace PA-C [address] [address] Specialist Neurosurgery 03/10/24 Latoya Hardy PA-C 175 [facility] [address] [place] [address] Specialist Neurosurgery 03/10/24 documented as of this encounter
--- OUTSIDE RECORDS SUMMARY | 2025-02-23 18:40 | XMS_ITS | Encounter Summary ---
Author Organization [facility] Address [address] [place] [address] Support Name Relationship Address Phone Kimo Sprague Emergency Contact [address] [facility] [address] [place] [address] Care Team Providers Care Operations Consultant Name Role Phone Makayla Sam DO Primary Care Pro vider Unavailable Anila Craven MD Primary Care Provider Un available Stacy Parry MD Primary Care Provider Unavail able Victoriano Smith MD Primary Care Provider Unava ilable Name, Matt APPIAH Primary Care Provider UnavailReyna Yañez MD Unavailable [phone] Chris Wallace PA-C Unavailable Latoya Hardy PA-C Unavailable [phone] Encounter Details Date Type Department Care Team Description 03/01/2015 SHOOTING GALLERY OPERATOR/[facility] Report Medical Records [address] [place] [address] Abstract, Provider Social History Tobacco Use Types [...] on filedocumented in this encounter Care Teams Operations Consultant Relationship Specialty Start Date End Date Makayla Sam DO PCP - General Internal Medicine 10/10/14 09/02/16 Anila Craven MD PCP - General Internal Medicine 09/03/16 9 Stacy Parry MD PCP - General Internal Medicine 02/21/19 01/20/20 Victoriano Smith MD PCP - General Internal Medicine 01/21/20 07/07/22 Matt Wu MD PCP - General Internal Medicine 07/08/22 Reyna Laboy MD [address] [address] Specialist Neurosurgery 12/22/23 Chris Wallace PA-C [address] [address] Specialist Neurosurgery 03/10/24 Latoya Hardy PA-C [address] [address] Specialist Neurosurgery 03/10/24 documented as of this encounter
--- OUTSIDE RECORDS SUMMARY | 2025-02-23 18:40 | XMS_ITS | Encounter Summary ---
Author Organization [facility] Address [address] [place] [address] Support Name Relationship Address Phone Kimo Sprague Emergency Contact [address] [facility] [address] [place] [address] Care Team Providers Care Associate Professor Of Medicine Name Role Phone Anila Craven MD Primary Care Provider Un available Stacy Parry MD Primary Care Provider Unavail able Victoriano Smith MD Primary Care Provider Unava ilable Name, Matt APPIAH Primary Care Provider Unavailabl e Reyna Laboy MD Unavailable [phone] Chris Wallace PA-C Unavailable Latoya Hardy PA-C Unavailable [phone] Encounter Details Date Type Department Care Team Description 10/23/2016 [facility] Medical Records [address] [place] [address] Abstract, Provider Social History Tobacco Use Types [...] on filedocumented in this encounter Care Teams Associate Professor Of Medicine Relationship Specialty Start Date End Date Anila Craven MD PCP - General Internal Medicine 09/03/16 9 Stacy Parry MD PCP - General Internal Medicine 02/21/19 01/20/20 Victoriano Smith MD PCP - General Internal Medicine 01/21/20 07/07/22 Matt Wu MD PCP - General Internal Medicine 07/08/22 Reyna Laboy MD [address] [address] Specialist Neurosurgery 12/22/23 Chris Wallace PA-C [address] [address] Specialist Neurosurgery 03/10/24 Latoya Hardy PA-C [address] [address] Specialist Neurosurgery 03/10/24 documented as of this encounter
--- OUTSIDE RECORDS SUMMARY | 2025-02-23 18:40 | XMS_ITS | Encounter Summary ---
Author Organization [facility] Address [address] [place] [address] Support Name Relationship Address Phone Kimo Sprague Emergency Contact [address] [facility] [address] [place] [address] Care Team Providers Care Integrative Medicine Physician Name Role Phone Stacy Parry MD Primary Care Provider Unavail able Victoriano Smith MD Primary Care Provider Unava ilable Name, Matt APPIAH Primary Care Provider UnavailReyna Yañez MD Unavailable [phone] Chris Wallace PA-C Unavailable Latoya Hardy PA-C Unavailable [phone] Encounter Details Date Type Department Care Team Description 01/02/2020 Telephone OBGYN - [place] [address] [place] [address] Maryse Jimenez MD [address] [place] [address] Social History Tobacco Use Types Packs/Day Years [...] on filedocumented in this encounter Care Teams Integrative Medicine Physician Relationship Specialty Start Date End Date Stacy Parry MD PCP - General Internal Medicine 02/21/19 01/20/20 Victoriano Smith MD PCP - General Internal Medicine 01/21/20 07/07/22 Matt Wu MD PCP - General Internal Medicine 07/08/22 Reyna Laboy MD [address] [phone] Specialist Neurosurgery 12/22/23 Chris Wallace PA-C 175 [facility] [address] [place] [address] Specialist Neurosurgery 03/10/24 Latoya Hardy PA-C [address] [address] Specialist Neurosurgery 03/10/24 documented as of this encounter
--- OUTSIDE RECORDS SUMMARY | 2025-02-23 18:40 | XMS_ITS | Encounter Summary ---
Author Organization [facility] Address [address] [place] [address] Support Name Relationship Address Phone Kimo Sprague Emergency Contact [address] [facility] [address] [place] [address] Care Team Providers Care Blood Bank Assistant Name Role Phone Makayla Sam DO Primary Care Pro vider Unavailable Anila Craven MD Primary Care Provider Un available Stacy Parry MD Primary Care Provider Unavail able Victoriano Smith MD Primary Care Provider Unava ilable Name, Matt APPIAH Primary Care Provider UnavailReyna Yañez MD Unavailable [phone] Chris Wallace PA-C Unavailable Latoya Hardy PA-C Unavailable Encounter Details Date Type Department Care Team Description 02/27/2015 Controlled Substance Contract with [facility] Medical Records [address] [place] [address] Abstract, Provider Social History Tobacco Use Types [...] on filedocumented in this encounter Care Teams Blood Bank Assistant Relationship Specialty Start Date End Date Makayla Sam DO PCP - General Internal Medicine 10/10/14 09/02/16 Anila Craven MD PCP - General Internal Medicine 09/03/16 9 Stacy Parry MD PCP - General Internal Medicine 02/21/19 01/20/20 Victoriano Smith MD PCP - General Internal Medicine 01/21/20 07/07/22 Matt Wu MD PCP - General Internal Medicine 07/08/22 Reyna Laboy MD [address] [phone] Specialist Neurosurgery 12/22/23 Chris Wallace PA-C [address] [address] Specialist Neurosurgery 03/10/24 Latoya Hardy PA-C [address] [address] Specialist Neurosurgery 03/10/24 documented as of this encounter
--- OUTSIDE RECORDS SUMMARY | 2025-02-23 18:40 | XMS_ITS | Encounter Summary ---
Author Organization [facility] Address [address] [place] [address] Support Name Relationship Address Phone Kmio Sprague Emergency Contact [address] [facility] [address] [place] [address] Care Team Providers Care Petroleum Inspector Supervisor Name Role Phone Anila Craven MD Primary Care Provider Un available Stacy Parry MD Primary Care Provider Unavail able Victoriano Smith MD Primary Care Provider Unava ilable Matt Wu MD Primary Care Provider Unavailabl e Reyna Laboy MD Unavailable [phone] Chris Wallace PA-C Unavailable Latoya Hardy PA-C Unavailable [phone] Encounter Details Date Type Department Care Team Description 01/24/2019 [facility] Medical Records [address] [place] [address] Abstract, Provider Social History Tobacco Use Types [...] on filedocumented in this encounter Care Teams Petroleum Inspector Supervisor Relationship Specialty Start Date End Date Anila Craven MD PCP - General Internal Medicine 09/03/16 9 Stacy Parry MD PCP - General Internal Medicine 02/21/19 01/20/20 Victoriano Smith MD PCP - General Internal Medicine 01/21/20 07/07/22 Matt Wu MD PCP - General Internal Medicine 07/08/22 Reyna Laboy MD [address] [address] Specialist Neurosurgery 12/22/23 Chris Wallace PA-C [address] [address] Specialist Neurosurgery 03/10/24 Latoya Hardy PA-C [address] [address] Specialist Neurosurgery 03/10/24 documented as of this encounter
--- OUTSIDE RECORDS SUMMARY | 2025-02-23 18:40 | XMS_ITS | Encounter Summary ---
Author Organization [facility] Address [address] [place] [address] Support Name Relationship Address Phone Kimo Sprague Emergency Contact [address] [facility] [address] [place] [address] Care Team Providers Care Sr. Payroll Processor Name Role Phone Makayla Sam DO Primary Care Pro vider Unavailable Anila Craven MD Primary Care Provider Un available Stacy Parry MD Primary Care Provider Unavail able Victoriano Smith MD Primary Care Provider Unava ilable Name, Matt APPIAH Primary Care Provider UnavailReyna Yañez MD Unavailable [phone] Chris Wallace PA-C Unavailable [phone] Latoya Hardy PA-C Unavailable [phone] Encounter Details Date Type Department Care Team Description 12/20/2015 Scrap Materials Buyer Report Medical Records [address] [place] [id number] Nazia Rodriges MD Social History Tobacco Use [...] on filedocumented in this encounter Care Teams Sr. Payroll Processor Relationship Specialty Start Date End Date Makayla Sam DO PCP - General Internal Medicine 10/10/14 09/02/16 Anila Craven MD PCP - General Internal Medicine 09/03/16 9 Stacy Parry MD PCP - General Internal Medicine 02/21/19 01/20/20 Victoriano Smith MD PCP - General Internal Medicine 01/21/20 07/07/22 Matt Wu MD PCP - General Internal Medicine 07/08/22 Reyna Laboy MD [address] [address] Specialist Neurosurgery 12/22/23 Chris Wallace PA-C [address] [address] Specialist Neurosurgery 03/10/24 Latoya Hardy PA-C [address] [address] Specialist Neurosurgery 03/10/24 documented as of this encounter
--- OUTSIDE RECORDS SUMMARY | 2025-02-23 18:40 | XMS_ITS | Encounter Summary ---
Author Organization [facility] Address [address] [place] [address] Support Name Relationship Address Phone Kimo Sprague Emergency Contact [address] [facility] [address] [place] [address] Care Team Providers Care Making Line Worker Name Role Phone Anila Craven MD Primary Care Provider Un available Stacy Parry MD Primary Care Provider Unavail able Victoriano Smith MD Primary Care Provider Unava ilable Matt Wu MD Primary Care Provider Unavailabl e Reyna Laboy MD Unavailable [phone] Chris WallaceC Unavailable [phone] Latoya Hardy PA-C Unavailable [phone] Encounter Details Date Type Department Care Team Description 11/26/2017 School Psychologist Report Medical Records [address] [place] [id number] Geetha Noriega E, STEVEDORING SUPERVISOR Social History Tobacco Use Types Packs/Day Years [...] on filedocumented in this encounter Care Teams Making Line Worker Relationship Specialty Start Date End Date Anila Craven MD PCP - General Internal Medicine 09/03/16 9 Stacy Parry MD PCP - General Internal Medicine 02/21/19 01/20/20 Victoriano Smith MD PCP - General Internal Medicine 01/21/20 07/07/22 Matt Wu MD PCP - General Internal Medicine 07/08/22 Reyna Laboy MD [address] [address] Specialist Neurosurgery 12/22/23 Chris Wallace PA-C [address] [address] Specialist Neurosurgery 03/10/24 Latoya Hardy PA-C [address] [address] Specialist Neurosurgery 03/10/24 documented as of this encounter
--- OUTSIDE RECORDS SUMMARY | 2025-02-23 18:40 | XMS_ITS | Encounter Summary ---
Author Organization [facility] Address [address] [place] [address] Support Name Relationship Address Phone Kimo Sprague Emergency Contact [address] [facility] [address] [place] [address] Care Team Providers Care Tobacco Sorter Name Role Phone Anila Craven MD Primary Care Provider Un available Stacy Parry MD Primary Care Provider Unavail able Victoriano Smith MD Primary Care Provider Unava ilable Matt Wu MD Primary Care Provider Unavailabl e Reyna Laboy MD Unavailable [phone] Chris WallaceC Unavailable [phone] Latoya Hardy PA-C Unavailable [phone] Encounter Details Date Type Department Care Team Description 08/24/2018 It Risk Advisor Report Medical Records [address] [place] [address] Geetha Noriega, REVERSE UNIT OPERATOR Social History Tobacco Use Types Packs/Day Years [...] on filedocumented in this encounter Care Teams Tobacco Sorter Relationship Specialty Start Date End Date Anila Craven MD PCP - General Internal Medicine 09/03/16 9 Stacy Parry MD PCP - General Internal Medicine 02/21/19 01/20/20 Victoriano Smith MD PCP - General Internal Medicine 01/21/20 07/07/22 Matt Wu MD PCP - General Internal Medicine 07/08/22 Reyna Laboy MD [address] [address] Specialist Neurosurgery 12/22/23 Chris Wallace PA-C [address] [address] Specialist Neurosurgery 03/10/24 Latoya Hardy PA-C [address] [address] Specialist Neurosurgery 03/10/24 documented as of this encounter
--- OUTSIDE RECORDS SUMMARY | 2025-02-23 18:40 | XMS_ITS | Encounter Summary ---
Author Organization [facility] Address [address] [place] [address] Support Name Relationship Address Phone Kimo Sprague Emergency Contact [address] [facility] [address] [place] [address] Care Team Providers Care Greeting Card Editor Name Role Phone Anila Craven MD Primary Care Provider Un available Stacy Parry MD Primary Care Provider Unavail able Victoriano Smith MD Primary Care Provider Unava ilable Matt Wu MD Primary Care Provider Unavailabl e Reyna Laboy MD Unavailable [phone] Chris WallaceC Unavailable Latoya Hardy PA-C Unavailable [phone] Encounter Details Date Type Department Care Team Description 08/28/2017 Telephone [facility] - [address] [address] Anila Craven MD Social History Tobacco Use [...] on filedocumented in this encounter Care Teams Greeting Card Editor Relationship Specialty Start Date End Date Anila Craven MD PCP - General Internal Medicine 09/03/16 9 Stacy Parry MD PCP - General Internal Medicine 02/21/19 01/20/20 Victoriano Smith MD PCP - General Internal Medicine 01/21/20 07/07/22 Matt Wu MD PCP - General Internal Medicine 07/08/22 Reyna Laboy MD [address] [address] Specialist Neurosurgery 12/22/23 Chris Wallace PA-C [address] [address] Specialist Neurosurgery 03/10/24 Latoya Hardy PA-C [address] [address] Specialist Neurosurgery 03/10/24 documented as of this encounter
--- OUTSIDE RECORDS SUMMARY | 2025-02-23 18:40 | XMS_ITS | Encounter Summary ---
Author Organization [facility] Address [address] [place] [address] Support Name Relationship Address Phone Kimo Sprague Emergency Contact [address] [facility] [address] [place] [address] Care Team Providers Care Supervisor Briar [employer] Name Role Phone Makayla Sam DO Primary Care Pro vider Unavailable Anila Craven MD Primary Care Provider Un available Stacy Parry MD Primary Care Provider Unavail able Victoriano Smith MD Primary Care Provider Unava ilable Name, Matt APPIAH Primary Care Provider UnavailReyna Yañez MD Unavailable [phone] Chris Wallace PA-C Unavailable [phone] Latoya Hardy PA-C Unavailable [phone] Encounter Details Date Type Department Care Team Description 03/27/2016 Heater Operator Report Medical Records [address] [place] [address] Rj Nevarez MD Social History Tobacco Use [...] filedocumented in this encounter Care Teams Supervisor [employer]ar [employer] Relationship Specialty Start Date End Date Makayla Sam DO PCP - General Internal Medicine 10/10/14 09/02/16 Anila Craven MD PCP - General Internal Medicine 09/03/16 9 Stacy Parry MD PCP - General Internal Medicine 02/21/19 01/20/20 Victoriano Smith MD PCP - General Internal Medicine 01/21/20 07/07/22 Matt Wu MD PCP - General Internal Medicine 07/08/22 Reyna Laboy MD [address] [address] Specialist Neurosurgery 12/22/23 Chris Wallace PA-C [address] [address] Specialist Neurosurgery 03/10/24 Latoya Hardy PA-C [address] [address] Specialist Neurosurgery 03/10/24 documented as of this encounter
--- OUTSIDE RECORDS SUMMARY | 2025-02-23 18:40 | XMS_ITS | Encounter Summary ---
Author Organization [facility] Address [address] [place] [address] Support Name Relationship Address Phone Kimo Sprague Emergency Contact [address] [facility] [address] [place] [address] Care Team Providers Care Electronics Technician Name Role Phone Name, Matt APPIAH Primary Care Provider Unavailbroderick e Reyna Laboy MD Unavailable [phone] Chris Wallace PA-C Unavailable Latoya Hardy PA-C Unavailable Encounter Details Date Type Department Care Team Description 12/24/2023 [facility] Neurosurgery [place] [address] [id number] Reyna Laboy MD [address] [address] Social History Tobacco Use Types Packs/Day Years [...] on filedocumented in this encounter Care Teams Electronics Technician Relationship Specialty Start Date End Date Name, MD Matt PCP - General Internal Medicine 07/08/22 Reyna Laboy MD [address] [id number] Specialist Neurosurgery 12/22/23 Chris Wallace PA-C [address] [address] Specialist Neurosurgery 03/10/24 Latoya Hardy PA-C [address] [place] [address] [place] [id number] Specialist Neurosurgery 03/10/24 documented as of this encounter
--- OUTSIDE RECORDS SUMMARY | 2025-02-23 18:40 | XMS_ITS | Encounter Summary ---
Author Organization [facility] Address [address] [place] [address] Support Name Relationship Address Phone Kimo Sprague Emergency Contact [address] [facility] [address] [place] [address] Care Team Providers Care Senior It Auditor Name Role Phone Anila Craven MD Primary Care Provider Un available Stacy Parry MD Primary Care Provider Unavail able Victoriano Smith MD Primary Care Provider Unava ilable Matt Wu MD Primary Care Provider Unavailabl e Reyna Laboy MD Unavailable [phone] Chris Wallace-C Unavailable [phone] Latoya Hardy PA-C Unavailable [phone] Encounter Details Date Type Department Care Team Description 12/22/2017 Crisis Specialist Report Medical Records [address] [place] [id number] Wero Perez MD Social History Tobacco Use Types Packs/Day [...] filedocumented in this encounter Care Teams Senior It Auditor Relationship Specialty Start Date End Date Anila Craven MD PCP - General Internal Medicine 09/03/16 9 Stacy Parry MD PCP - General Internal Medicine 02/21/19 01/20/20 Victoriano Smith MD PCP - General Internal Medicine 01/21/20 07/07/22 Matt Wu MD PCP - General Internal Medicine 07/08/22 Reyna Laboy MD [address] [address] Specialist Neurosurgery 12/22/23 Chris Wallace PA-C [address] [address] Specialist Neurosurgery 03/10/24 Latoya Hardy PA-C [address] [address] Specialist Neurosurgery 03/10/24 documented as of this encounter
[2025-02-23 20:37] LABS: Bacterial Vaginosis PCR NEGATIVE (Negative); Candida Group PCR NOT DETECTED (Not Detect); Candida glab krusei PCR DETECTED (Not Detect); Trichomonas vaginalis PCR NOT DETECTED (Not Detect)
[2025-02-23 21:34] LABS: CT PCR NOT DETECTED (Not Detect.); NG PCR NOT DETECTED (Not Detect.)
== END 2025-02-23 15:30 | disposition home or self-care (01) ==
LOC: HO.LAB 15:29
PROVIDERS: Visit Provider Advanced Practice Midwife
DX: R10.2 Pelvic and perineal pain (principal); Z11.3 Encounter for screening for infections with a predominantly sexual mode of transmission; Z11.8 Encounter for screening for other infectious and parasitic diseases
CPT/HCPCS: 81515; 87491; 87591

== ENCOUNTER 2025-02-23 15:46 | Emergency (ER) | payer MEDICAID, SELFPAY ==
--- NOTE | 2025-02-23 15:51 | ED.GENADULT ---
HPI - General Adult General Chief complaint: Abdominal Pain Stated complaint: pelvic pain (sent by Gisella Phillips) Related Data Home Medications ?Medication ?Instructions ?Recorded ?Confirmed albuterol sulfate 90 mcg/actuation 2 puff PO QID PRN 03/21/20 02/23/25 aerosol inhaler calcipotriene 0.005 % scalp topical 02/04/21 02/23/25 solution albuterol sulfate 2.5 mg/3 mL 2.5 mg continuous nebulization QID 12/06/21 02/23/25 (0.083 %) solution for nebulization PRN shortness of breath or wheezing sumatriptan succinate 50 mg tablet 50 mg PO Q2-4H PRN migraine 03/05/23 02/23/25 headache carvedilol 6.25 mg tablet 6.25 mg PO BID 08/18/23 02/23/25 hydroquinone 4 % topical cream 1 appl topical DAILY 12/01/23 02/23/25 empagliflozin 12.5 mg-metformin 1 tab PO DAILY 09/16/24 02/23/25 500 mg tablet (Synjardy) Previous Rx's ?Medication ?Instructions ?Recorded acetaminophen 500 mg tablet 500 mg PO Q6H PRN pain or fever 10/30/20 (Tylenol Extra Strength) #20 tabs blood pressure monitor #1 ea 05/06/21 blood-glucose meter (FreeStyle #1 ea 05/06/21 Lite Meter kit) lancets 28 gauge #100 ea 05/06/21 loratadine 10 mg tablet (Claritin) 10 mg PO DAILY PRN allergy 08/23/21 symptoms 90 days #90 tabs meclizine 25 mg tablet 25 mg PO DAILY PRN dizziness 15 10/21/21 days #15 tabs RIGHT WRIST SPLINT (large) #1 ea 12/06/21 zolpidem 10 mg tablet 10 mg PO BEDTIME PRN insomnia 90 01/21/22 days #90 tabs blood sugar diagnostic (FreeStyle #100 strips 01/24/22 Lite Strips) hydrochlorothiazide 25 mg tablet 25 mg PO DAILY #90 tabs 12/20/22 fluticasone furoate 200 1 inh inhalation DAILY #1 ea 05/06/24 mcg-vilanterol 25 mcg/dose inhalation powder (Breo Ellipta) aspirin 81 mg tablet,delayed 81 mg PO DAILY #90 tabs 06/21/24 release miconazole nitrate 2 % vaginal 1 appful vaginal BEDTIME 7 days 10/26/24 cream (Monistat 7) #45 grams bisacodyl 5 mg tablet,delayed 10 mg (2 x 5 mg) PO BEDTIME 30 02/02/25 release (Dulcolax (bisacodyl)) days #60 tabs esomeprazole magnesium 40 mg 40 mg PO BID #60 caps 02/02/25 capsule,delayed release sucralfate 1 gram tablet (Carafate) 2 g (2 x 1 gram) PO DAILY #60 tabs 02/02/25 betamethasone valerate 0.1 % 1 appl topical BID skin irritation 02/23/25 topical cream #45 grams Allergies Allergy/AdvReac Type Severity Reaction Status Date / Time acetaminophen (From Vicodin) Allergy Intermediate Palpitations, Verified 02/23/25 15:53 Itch amoxicillin (Prevpac) Allergy Intermediate itchy Verified 02/23/25 15:53 throat hydrocodone (From Vicodin) Allergy Intermediate Palpitations, Verified 02/23/25 15:53 Itch ibuprofen (From Motrin) Allergy Intermediate UPSET Verified 02/23/25 15:53 STOMACH, abdominal pain lansoprazole (Prevpac) Allergy Intermediate itchy Verified 02/23/25 15:53 throat morphine (MORPHINE) Allergy Intermediate PALPATATIONS, Verified 02/23/25 15:53 PANIC ATTACKS, nauseas,panic attack, heart palpitations omeprazole (From PRILOSEC) Allergy Intermediate ITCHY Verified 02/23/25 15:53 THROAT pravastatin (PRAVASTATIN) Allergy Intermediate UNKNOWN Verified 02/23/25 15:53 rosuvastatin (From CRESTOR) Allergy Intermediate UNKNOWN Verified 02/23/25 15:53 terbinafine (TERBINAFINE) Allergy Intermediate UNKNOWN Verified 02/23/25 15:53 atorvastatin (From LIPITOR) Allergy Unknown UNKNOWN Verified 02/23/25 15:53 clarithromycin (From BIAXIN) AdvReac Intermediate ABD PAIN, Verified 02/23/25 15:53 DIARRHEA gabapentin (GABAPENTIN) AdvReac Intermediate UNKNOWN, Verified 02/23/25 15:53 nausea, dizziness levofloxacin (LEVOFLOXACIN) AdvReac Intermediate PALPITATION Verified 02/23/25 15:53 S tylenol with codeine Allergy Unknown fast heart Uncoded 02/23/25 14:57 rate PMFSH Past Medical History Medical History FH: breast cancer Pelvic pain Encounter for well woman exam with routine gynecological exam Umbilical hernia Scalp mass Irritable bowel syndrome with diarrhea Allergic rhinitis Lumbar degenerative disc disease Breast pain during Carpal tunnel syndrome Arthritis Morbid obesity with BMI of 40.0-44.9, adult Insomnia Diabetes mellitus Benign essential hypertension Polyarthralgia Fibromyalgia Mixed hyperlipidemia Candidiasis of mouth and esophagus Thoracic spondylosis Surgical History Hx of dilation and curettage History of endometrial ablation Hx of colonoscopy History of esophagogastroduodenoscopy (EGD) History of dermoid cyst excision History of excision of lamina of cervical vertebra for decompression of spinal cord H/O hemorrhoidectomy History of appendectomy Family History Family History Father NIDDY (non-insulin dependent diabetes mellitus in young) Cardiovascular disease Obesity Cancer of unknown origin Colon cancer Mother CAD (coronary artery disease) NIDDY (non-insulin dependent diabetes mellitus in young) Brother Schizophrenia Degenerative disc disease H/O lymph node cancer Sister Breast cancer Colon cancer Paternal Grandmother Ovarian cancer, Onset Age: 45 Daughter Fibromyalgia Hypertension Cancer of unknown origin Ovarian cancer Other Mental health problem Social History Social History Household Members: None Housing: Apartment Alcohol intake: never Patient Tobacco Use Status: Never used Tobacco e-Cigarette/Vaping Use: Never Used Second Hand Smoke Exposure: No Advance Directives: No Advance Directives Information Provided: No service: No Current occupational status: disabled 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 Full HPI, ROS, assessment and treatment plan per primary provider in the Main ED. Hx: 54 yo here from OBGYN office for eval of vaginal discharge, lower abd pain, low back ain x2 weeks. assoc constipation. advised to come to ED for ct scan. Plan: labs, UA, CTNG Reevaluation(s) Reevaluation #1: Patient left the emergency department before myself or any of the other clinicians could review or explain physical exam findings, test results, need or lack there of for additional testing, treatment options, or a treatment plan. Medical Decision Making Lab Data 02/23/25 16:17 02/23/25 16:17 Labs: Lab Results 02/23/25 Range/Units 16:17 WBC 9.4 (4.8-10.8) X10*3/uL RBC 5.10 (4.20-5.50) X10*6/uL Hgb 13.5 (12.0-16.0) g/dl Hct 42.5 (37.0-47.0) % MCV 83.3 (80.0-98.0) fL MCH 26.5 L (27.0-33.0) pg MCHC 31.8 (31.0-35.0) g/dl RDW 14.6 (11.0-16.0) % Plt Count 291 (160-400) X10*3/uL MPV 9.8 (9.4-12.3) fL Immature Gran % (Auto) 0.2 (0.0-0.4) % Neut % (Auto) 58.1 (45-73) % Lymph % (Auto) 31.0 (20-40) % [place] % (Auto) 8.4 (2-11) % Eos % (Auto) 1.7 (0-4) % Baso % (Auto) 0.6 (0-2) % Lymph # (Auto) 2.9 (1.2-4.9) X10*3/uL [place] # (Auto) 0.8 (0.1-1.2) X10*3/uL Eos # (Auto) 0.2 (0.0-0.4) X10*3/uL Baso # (Auto) 0.1 (0.0-0.2) X10*3/uL Abs Immat Gran (auto) 0.02 (0.00-0.03) X10*3/uL Absolute Neuts (auto) 5.4 (2.0-8.3) x10*3/uL Absolute Nucleated RBC 0.000 (0.0-0.012) X10*3/uL Nucleated RBC % (auto) 0.0 (0.0-0.2) /100WBC Sodium 145 (135-145) mmol/L Potassium 3.7 (3.3-5.1) mmol/L Chloride 109 H (96-108) mmol/L Carbon Dioxide 26 (22-29) mmol/L Anion Gap 14 (12-20) BUN 15 (9-16) mg/dL Creatinine 0.82 (0.5-1.4) mg/dL Estim Creat Clear Calc 103.0 Estimated GFR > 60 Random Glucose 121 H (60-115) mg/dL Calcium 8.8 D (8.4-10.2) mg/dL Magnesium 1.9 (1.6-2.6) mg/dL Total Bilirubin 0.9 (0.0-1.0) mg/dL AST 43 H (5-31) U/L ALT 43 H (0-31) U/L Alkaline Phosphatase 110 (39-117) U/L Total Protein 7.1 (6.5-8.0) g/dL Albumin 4.2 (3.5-5.0) g/dL Discharge Plan Discharge Clinical Impression: Abdominal pain Patient Disposition: Left W/O Completing Treatment Prescriptions: No Action (DME) blood pressure monitor Kit See Rx Instructions .Route Qty: 1 0RF Rx Instructions: As directed (DME) lancets 28 gauge misc See Rx Instructions topical DIRECTED Qty: 100 0RF Rx Instructions: Test once daily (DME) blood-glucose meter [FreeStyle Lite Meter] Kit See Rx Instructions .Route Qty: 1 0RF Rx Instructions: As directed meclizine 25 mg tablet 25 mg PO DAILY PRN (Reason: dizziness) 15 Days Qty: 15 2RF zolpidem 10 mg tablet 10 mg PO BEDTIME PRN (Reason: insomnia) 90 Days Qty: 90 0RF (DME) FreeStyle Lite Strips Strip See Rx Instructions .ROUTE .COMPLEX Qty: 100 0RF Dose Instruction: USE TODOS [place] Rx Instructions: USE TODOS [place] hydrochlorothiazide 25 mg tablet 25 mg PO DAILY Qty: 90 0RF aspirin 81 mg tablet,delayed release (DR/EC) 81 mg PO DAILY Qty: 90 3RF miconazole nitrate [Monistat 7] 2 % cream 1 appful vaginal BEDTIME 7 Days Qty: 45 0RF acetaminophen [Tylenol Extra Strength] 500 mg tablet 500 mg PO Q6H PRN (Reason: pain or fever) Qty: 20 0RF calcipotriene 0.005 % solution topical loratadine [Claritin] 10 mg tablet 10 mg PO DAILY PRN (Reason: allergy symptoms) 90 Days Qty: 90 3RF albuterol sulfate 2.5 mg /3 mL (0.083 %) solution for nebulization 2.5 mg continuous nebulization QID PRN (Reason: shortness of breath or wheezing) (DME) RIGHT WRIST SPLINT (large) large See Rx Instructions .Route .MEDSUPPLY Qty: 1 0RF Rx Instructions: As directed albuterol sulfate 90 mcg/actuation HFA aerosol inhaler 2 puff PO QID PRN sumatriptan succinate 50 mg tablet 50 mg PO Q2-4H PRN (Reason: migraine headache) Rx Instructions: do not exceed 4 doses per 24 hrs Synjardy 12.5-500 mg tablet 1 tab PO DAILY carvedilol 6.25 mg tablet 6.25 mg PO BID betamethasone valerate 0.1 % cream 1 appl topical BID Qty: 45 0RF Rx Instructions: use for 1-2 weeks until symptoms clear hydroquinone 4 % cream 1 appl topical DAILY fluticasone furoate-vilanterol [Breo Ellipta] 200-25 mcg/dose blister with device 1 inh inhalation DAILY Qty: 1 6RF bisacodyl [Dulcolax (bisacodyl)] 5 mg tablet,delayed release (DR/EC) 10 mg PO BEDTIME 30 Days Qty: 60 6RF esomeprazole magnesium 40 mg capsule,delayed release(DR/EC) 40 mg PO BID Qty: 60 6RF sucralfate [Carafate] 1 gram tablet 2 g PO DAILY Qty: 60 6RF Discharge Date/Time: 02/23/25 22:00
[2025-02-23 15:52] VITALS: BP 221/101; PULSE 70; RESP 16; TEMP 36.8; O2SAT 98; BMI 35.4
[2025-02-23 16:21] LABS: MANUAL DIFF FLAG NO
[2025-02-23 16:32] LABS: Hematocrit 42.5 % (37.0-47.0); Hemoglobin 13.5 g/dl (12.0-16.0); Imm Gran Abs Auto 0.02 X10*3/uL (0.00-0.03); Imm Gran Pct Auto 0.2 % (0.0-0.4); Lymphocytes Absolute Auto 2.9 X10*3/uL (1.2-4.9); Mean Corpuscular HGB Conc 31.8 g/dl (31.0-35.0); Mean Corpuscular Hemoglobin 26.5 pg (27.0-33.0); Mean Corpuscular Volume 83.3 fL (80.0-98.0); NRBC Abs Auto 0.000 X10*3/uL (0.0-0.012); NRBC Pct Auto 0.0 /100WBC (0.0-0.2); Platelet Count 291 X10*3/uL (160-400); Red Blood Count 5.10 X10*6/uL (4.20-5.50); White Blood Count 9.4 X10*3/uL (4.8-10.8)
[2025-02-23 16:37] LABS: Alanine Aminotransferase 43 U/L (0-31); Albumin Level 4.2 g/dL (3.5-5.0); Alkaline Phosphatase 110 U/L (39-117); Anion Gap 14 (12-20); Aspartate Amino Transferase 43 U/L (5-31); Blood Urea Nitrogen 15 mg/dL (9-16); Calcium 8.8 mg/dL (8.4-10.2); Carbon Dioxide 26 mmol/L (22-29); Chloride 109 mmol/L (96-108); Creatinine Clr Calc Pharmacy 103.0; Estimated Glomerular Filt Rate > 60; Magnesium 1.9 mg/dL (1.6-2.6); Potassium 3.7 mmol/L (3.3-5.1); Sodium 145 mmol/L (135-145); Total Protein 7.1 g/dL (6.5-8.0)
== END 2025-02-23 22:00 | disposition left against medical advice (07) ==
PROVIDERS: Physician Assistant Medical; Emergency Provider Emergency Medicine; PCP Internal Medicine Geriatric Medicine
DX: R10.9 Unspecified abdominal pain (principal); Z53.21 Procedure and treatment not carried out due to patient leaving prior to being seen by health care provider
CPT/HCPCS: 36415; 80053; 83735; 85025; 99281; 99283

== ENCOUNTER 2025-02-27 14:00 | Emergency (ER) | payer MEDICAID, SELFPAY ==
--- NOTE | ~2025-02-27 | US_ITS ---
CLINICAL HISTORY: RLQ suprapubic tender; Post-menopausal bleeding US pelvis transabdominal and transvaginal Comparison: US - US PELVIC AND TRANSVAGINAL - 11/24/24 15:15 EDT Findings: Transabdominal scanning performed for overall anatomy. Transvaginal scanning performed for additional detail. Retroflexed uterus is 8.8 cm length. Normal myometrium. Small probable fibroid measures 1.3 cm Endometrium 3 mm thickness. No lesions. Right ovary 1.8 x 1.6 x 1.4 cm. Dominant follicle noted in the right ovary. Left ovary 1.9 x 1.3 x 1.6 cm. No free fluid. IMPRESSION: 1. Unremarkable pelvic ultrasound This document has been electronically signed by: Oscar Jones MD, PHD on 02/28/2025 02:50:23
--- NOTE | ~2025-02-27 | CT_ITS ---
CLINICAL HISTORY: RLQ Tenderness; R Flank Pain CT abdomen and pelvis with contrast Comparison: CT/SR - CT ABDOMEN PELVIS WO IV CON - 09/14/24 14:22 EDT Findings: The lung bases are clear. Liver is of low-attenuation, hepatic steatosis. No focal hepatic lesion. Gallbladder, pancreas, spleen and adrenal glands are within normal limits. Kidneys are non hydronephrotic and enhance symmetrically. No bowel obstruction, pneumoperitoneum, or pneumatosis. Visualized appendix is unremarkable. The tip of the appendix extends to a fat containing right inguinal hernia. Urinary bladder and pelvic structures are within normal limits. The bones are intact. IMPRESSION: No acute findings. This document has been electronically signed by: Oscar Jones MD, PHD on 02/28/2025 04:04:06
--- NOTE | 2025-02-27 14:35 | ED.GENADULT ---
HPI - General Adult General Chief complaint: Abdominal Pain Stated complaint: Becky sent for CT scan and ultrasound Time Seen by Provider: 02/27/25 21:52 Source: patient and family Mode of arrival: ambulatory Limitations: no limitations History of Present Illness ED Provider: Hiren MORALES HPI narrative: The patient is a 54-year-old female presenting to the ED for evaluation of periumbilical and right lower quadrant abdominal pain radiating to the right flank which has been ongoing for the past 2 weeks, patient was seen by her OBGYN on , at that time pelvic exam was performed and patient reports OBGYN reported the pelvis appeared inflamed but otherwise unremarkable. The patient was referred to the ED on , states she came to the ED however had to leave without being seen due to childcare issues. Patient reports since leaving the hospital on she has had persistent pain and also has developed associated chills with vaginal spotting, however reports she is postmenopausal and has not had menstruation for the past 2 years. The patient denies associated vomiting, diarrhea, dysuria, hematuria, chest pain, shortness of breath, pleurisy, objective fever, or other vaginal discharge. The patient denies any recent sick contacts or trauma. Related Data Home Medications ?Medication ?Instructions ?Recorded ?Confirmed albuterol sulfate 90 mcg/actuation 2 puff PO QID PRN 03/21/20 02/23/25 aerosol inhaler calcipotriene 0.005 % scalp topical 02/04/21 02/23/25 solution albuterol sulfate 2.5 mg/3 mL 2.5 mg continuous nebulization QID 12/06/21 02/23/25 (0.083 %) solution for nebulization PRN shortness of breath or wheezing sumatriptan succinate 50 mg tablet 50 mg PO Q2-4H PRN migraine 03/05/23 02/23/25 headache carvedilol 6.25 mg tablet 6.25 mg PO BID 08/18/23 02/23/25 hydroquinone 4 % topical cream 1 appl topical DAILY 12/01/23 02/23/25 empagliflozin 12.5 mg-metformin 1 tab PO DAILY 09/16/24 02/23/25 500 mg tablet (Synjardy) Previous Rx's ?Medication ?Instructions ?Recorded acetaminophen 500 mg tablet 500 mg PO Q6H PRN pain or fever 10/30/20 (Tylenol Extra Strength) #20 tabs blood pressure monitor #1 ea 05/06/21 blood-glucose meter (FreeStyle #1 ea 05/06/21 Lite Meter kit) lancets 28 gauge #100 ea 05/06/21 loratadine 10 mg tablet (Claritin) 10 mg PO DAILY PRN allergy 08/23/21 symptoms 90 days #90 tabs meclizine 25 mg tablet 25 mg PO DAILY PRN dizziness 15 10/21/21 days #15 tabs RIGHT WRIST SPLINT (large) #1 ea 12/06/21 zolpidem 10 mg tablet 10 mg PO BEDTIME PRN insomnia 90 01/21/22 days #90 tabs blood sugar diagnostic (FreeStyle #100 strips 01/24/22 Lite Strips) hydrochlorothiazide 25 mg tablet 25 mg PO DAILY #90 tabs 12/20/22 fluticasone furoate 200 1 inh inhalation DAILY #1 ea 05/06/24 mcg-vilanterol 25 mcg/dose inhalation powder (Breo Ellipta) aspirin 81 mg tablet,delayed 81 mg PO DAILY #90 tabs 06/21/24 release miconazole nitrate 2 % vaginal 1 appful vaginal BEDTIME 7 days 10/26/24 cream (Monistat 7) #45 grams bisacodyl 5 mg tablet,delayed 10 mg (2 x 5 mg) PO BEDTIME 30 02/02/25 release (Dulcolax (bisacodyl)) days #60 tabs esomeprazole magnesium 40 mg 40 mg PO BID #60 caps 02/02/25 capsule,delayed release sucralfate 1 gram tablet (Carafate) 2 g (2 x 1 gram) PO DAILY #60 tabs 02/02/25 betamethasone valerate 0.1 % 1 appl topical BID skin irritation 02/23/25 topical cream #45 grams fluconazole 150 mg tablet 150 mg PO DAILY 1 day #1 tab 02/27/25 Allergies Allergy/AdvReac Type Severity Reaction Status Date / Time acetaminophen (From Vicodin) Allergy Intermediate Palpitations, Verified 02/27/25 14:54 Itch amoxicillin (Prevpac) Allergy Intermediate itchy Verified 02/27/25 14:54 throat hydrocodone (From Vicodin) Allergy Intermediate Palpitations, Verified 02/27/25 14:54 Itch ibuprofen (From Motrin) Allergy Intermediate UPSET Verified 02/27/25 14:54 STOMACH, abdominal pain lansoprazole (Prevpac) Allergy Intermediate itchy Verified 02/27/25 14:54 throat morphine (MORPHINE) Allergy Intermediate PALPATATIONS, Verified 02/27/25 14:54 PANIC ATTACKS, nauseas,panic attack, heart palpitations omeprazole (From PRILOSEC) Allergy Intermediate ITCHY Verified 02/27/25 14:54 THROAT pravastatin (PRAVASTATIN) Allergy Intermediate UNKNOWN Verified 02/27/25 14:54 rosuvastatin (From CRESTOR) Allergy Intermediate UNKNOWN Verified 02/27/25 14:54 terbinafine (TERBINAFINE) Allergy Intermediate UNKNOWN Verified 02/27/25 14:54 atorvastatin (From LIPITOR) Allergy Unknown UNKNOWN Verified 02/27/25 14:54 clarithromycin (From BIAXIN) AdvReac Intermediate ABD PAIN, Verified 02/27/25 14:54 DIARRHEA gabapentin (GABAPENTIN) AdvReac Intermediate UNKNOWN, Verified 02/27/25 14:54 nausea, dizziness levofloxacin (LEVOFLOXACIN) AdvReac Intermediate PALPITATION Verified 02/27/25 14:54 S tylenol with codeine Allergy Unknown fast heart Uncoded 02/27/25 14:54 rate Review of Systems Review of Systems: Yes all other systems are reviewed and are negative PMFSH Past Medical History Medical History FH: breast cancer Pelvic pain Encounter for well woman exam with routine gynecological exam Umbilical hernia Scalp mass Irritable bowel syndrome with diarrhea Allergic rhinitis Lumbar degenerative disc disease Breast pain during Carpal tunnel syndrome Arthritis Morbid obesity with BMI of 40.0-44.9, adult Insomnia Diabetes mellitus Benign essential hypertension Polyarthralgia Fibromyalgia Mixed hyperlipidemia Candidiasis of mouth and esophagus Thoracic spondylosis Surgical History Hx of dilation and curettage History of endometrial ablation Hx of colonoscopy History of esophagogastroduodenoscopy (EGD) History of dermoid cyst excision History of excision of lamina of cervical vertebra for decompression of spinal cord H/O hemorrhoidectomy History of appendectomy Family History Family History Father NIDDY (non-insulin dependent diabetes mellitus in young) Cardiovascular disease Obesity Cancer of unknown origin Colon cancer Mother CAD (coronary artery disease) NIDDY (non-insulin dependent diabetes mellitus in young) Brother Schizophrenia Degenerative disc disease H/O lymph node cancer Sister Breast cancer Colon cancer Paternal Grandmother Ovarian cancer, Onset Age: 45 Daughter Fibromyalgia Hypertension Cancer of unknown origin Ovarian cancer Other Mental health problem Social History Social History Household Members: None Housing: Apartment Alcohol intake: never Patient Tobacco Use Status: Never used Tobacco Smoked in Last 30 Days: No e-Cigarette/Vaping Use: Never Used Second Hand Smoke Exposure: No Use of substances other than those prescribed or required for medical reasons: No Advance Directives: No Advance Directives Information Provided: No service: No Current occupational status: disabled 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 Vital signs as documented. HEAD: Atraumatic, normocephalic. EYES: EOMs grossly intact, pupils equal, conjunctiva clear, no exudate. ENT: Nares patent, no discharge. Airway patent, no audible stridor, visible mucosa is pink and moist without noted lesions. NECK: Trachea is midline, no obvious masses or gross abnormalities. CHEST: Symmetric movement, normal appearance. LUNGS: LS present and CTAB, no w/r/r. Non-labored work of breathing. CARDIAC: Regular Rhythm, S1/S2 appreciated, no murmurs, rubs or gallops. ABDOMEN: Abdomen soft x4 quadrants, no palpable masses or organomegaly. There is point tenderness of the periumbilical region, right lower quadrant, and suprapubic region. Negative CVAT bilaterally. : Deferred. EXTREMITIES: Normal tone, moves all extremities spontaneously without reported pain. No obvious acute injury or deformity noted. NEURO: Alert and oriented x3, CN II-XII appear grossly intact. Cerebellar Functioning grossly intact. No obvious sensory or motor deficits. Speech clear and appropriate. PSYCH: normal affect, appropriate eye contact, fluid speech, with appropriate response to questioning. No reported suicidality or homicidality. SKIN: Warm, dry, color appropriate, normal turgor. No rashes noted. Course Course Course Narrative: This is a rapid medical exam performed by Alejandra Eden NP: Additional HPI, ROS, PE not included below will be deferred to primary provider. Patient is a 54y/o Welsh speaking F presenting to the ED with complaint of RLQ pain. 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 Had to leave [facility] due to childcare issues. Pain worse now, headache, nausea. Also reports some spotting, in perimenopause. Plan: Labs, UA Medications Administered Discontinued Medications Generic Name Dose Route Start Last Admin Trade Name Freq PRN Reason Stop Dose Admin Acetaminophen 975 mg 02/27/25 23:43 02/27/25 23:50 Acetaminophen 325 Mg Tablet PO 02/27/25 23:44 975 mg ONCE ONE Administration Al Hydroxide/Mg Hydroxide 30 ml 02/27/25 23:43 02/27/25 23:50 Magnesium Hydrox/Alum Hydrox 30 Ml Oral.Susp PO 02/27/25 23:44 30 ml ONCE ONE Administration Famotidine 20 mg 02/27/25 23:43 02/27/25 23:50 Famotidine 20 Mg Tablet PO 02/27/25 23:44 20 mg ONCE ONE Administration Hydromorphone HCl 0.5 mg 02/27/25 23:11 02/27/25 23:50 Hydromorphone Hcl 0.5 Mg/0.5 Ml Syringe IVPUSH 02/27/25 23:12 Not Given ONCE ONE Protocol Sodium Chloride 1,000 mls @ 999 mls/hr 02/27/25 23:15 02/28/25 01:39 Ns IV 02/28/25 00:15 Infused .Q1H1M VICENTA Infusion Iohexol 85 ml 02/28/25 01:21 02/28/25 01:21 Iohexol 350 Mg/Ml 100 Ml Infus..Btl IV 02/28/25 01:22 85 ml ONCE ONE Administration Lidocaine HCl 15 ml 02/27/25 23:43 02/27/25 23:49 Lidocaine Hcl Viscous 2 % 15 Ml Solution PO 02/27/25 23:44 15 ml ONCE ONE Administration Ondansetron HCl 4 mg 02/27/25 23:11 02/27/25 23:39 Ondansetron Hcl 4 Mg/2 Ml Vial IVPUSH 02/27/25 23:12 4 mg ONCE ONE Administration Medical Decision Making Medical Decision Making MDM Narrative: 11:24 PM 02/27/2025 (Bogdan MORALES): The patient is a 54-year-old female presenting to the ED for evaluation of periumbilical and right lower quadrant abdominal pain radiating to the right flank which has been ongoing for the past 2 weeks, patient was seen by her OBGYN on , at that time pelvic exam was performed and patient reports OBGYN reported the pelvis appeared inflamed but otherwise unremarkable. The patient was referred to the ED on , states she came to the ED however had to leave without being seen due to childcare issues. Patient reports since leaving the hospital on she has had persistent pain and also has developed associated chills with vaginal spotting, however reports she is postmenopausal and has not had menstruation for the past 2 years. The patient denies associated vomiting, diarrhea, dysuria, hematuria, chest pain, shortness of breath, pleurisy, objective fever, or other vaginal discharge. The patient denies any recent sick contacts or trauma. The patient's exam reveals point tenderness of the periumbilical region, right lower quadrant, and suprapubic region, no rebound, no CVAT. The patient's laboratory evaluation shows no leukocytosis, anemia, electrolyte abnormality, or DORCAS. The patient's LFTs are unremarkable, urine shows no evidence of infection. The patient will be further evaluated with CT abdomen and pelvis, as well as pelvic ultrasound, and we will treat with IV fluid hydration, Dilaudid, and Zofran. 4:10 AM 02/28/2025 (Bogdan MORALES): The patient's CT and ultrasound are both negative for any acute intra-abdominal process. The patient has not required any additional pain management. At this time there was no evidence of any acute emergent process causing the patient's pain. Patient had a pelvic exam at OBGYN office on , we will offer repeat exam to rule out CMT. 4:16 AM 02/28/2025 (Bogdan MORALES): The patient declined repeat pelvic exam, stating she is planning to follow up with her OBGYN who contacted her today and advised she would see the patient again for a biopsy. Patient will be discharged to follow up with OBGYN. Patient given strict return instructions. Admission/Observation Consideration of admission/observation: Escalation of care including admission/observation considered Lab Data MDM Lab Attestation statement: I reviewed the patient's lab results. 02/27/25 15:01 02/27/25 15:01 Labs: Lab Results 02/27/25 02/27/25 Range/Units 15: 21:25 WBC 9.1 (4.8-10.8) X10*3/uL RBC 4.98 (4.20-5.50) X10*6/uL Hgb 13.5 (12.0-16.0) g/dl Hct 41.9 (37.0-47.0) % MCV 84.1 (80.0-98.0) fL MCH 27.1 (27.0-33.0) pg MCHC 32.2 (31.0-35.0) g/dl RDW 14.6 (11.0-16.0) % Plt Count 308 (160-400) X10*3/uL MPV 9.9 (9.4-12.3) fL Immature Gran % (Auto) 0.3 (0.0-0.4) % Neut % (Auto) 63.0 (45-73) % Lymph % (Auto) 26.2 (20-40) % [place] % (Auto) 8.1 (2-11) % Eos % (Auto) 1.5 (0-4) % Baso % (Auto) 0.9 (0-2) % Lymph # (Auto) 2.4 (1.2-4.9) X10*3/uL [place] # (Auto) 0.7 (0.1-1.2) X10*3/uL Eos # (Auto) 0.1 (0.0-0.4) X10*3/uL Baso # (Auto) 0.1 (0.0-0.2) X10*3/uL Abs Immat Gran (auto) 0.03 (0.00-0.03) X10*3/uL Absolute Neuts (auto) 5.7 (2.0-8.3) x10*3/uL Absolute Nucleated RBC 0.000 (0.0-0.012) X10*3/uL Nucleated RBC % (auto) 0.0 (0.0-0.2) /100WBC Sodium 144 (135-145) mmol/L Potassium 3.7 (3.3-5.1) mmol/L Chloride 109 H (96-108) mmol/L Carbon Dioxide 29 (22-29) mmol/L Anion Gap 10 L (12-20) BUN 13 (9-16) mg/dL Creatinine 0.80 (0.5-1.4) mg/dL Estim Creat Clear Calc 88.2 Estimated GFR > 60 Random Glucose 100 (60-115) mg/dL Calcium 9.4 D (8.4-10.2) mg/dL Total Bilirubin 0.8 (0.0-1.0) mg/dL AST 32 H (5-31) U/L ALT 34 H (0-31) U/L Alkaline Phosphatase 112 (39-117) U/L Total Protein 7.0 (6.5-8.0) g/dL Albumin 4.1 (3.5-5.0) g/dL Beta HCG, Quant < 2 mIU/mL Urine Color Yellow Urine Appearance Clear Urine pH 5.5 (5.0-9.0) Ur Specific [place] 1.010 (1.005-1.025) Urine Protein Negative (Neg-Trace) mg/dL Urine Glucose (UA) Negative (Negative) mg/dL Urine Ketones Negative (Negative) mg/dL Urine Blood Negative (Negative) Urine Nitrite Negative (Negative) Ur Leukocyte Esterase Trace H (Negative) Urine RBC 0-2 (0-2) /HPF Urine WBC 0-5 (0-5) /HPF Ur Squamous Epith Cells 0-2 (0-2) /HPF Urine Bacteria None Seen (None Seen) Hyaline Casts 0-2 (0-2) /LPF Radiology Impression Discussion of test interpretation with radiology: I have reviewed the radiologist's reading. Radiologist Impression: CLINICAL HISTORY: RLQ suprapubic tender; Post-menopausal bleeding US pelvis transabdominal and transvaginal Comparison: US - US PELVIC AND TRANSVAGINAL - 11/24/24 15:15 EDT Findings: Transabdominal scanning performed for overall anatomy. Transvaginal scanning performed for additional detail. Retroflexed uterus is 8.8 cm length. Normal myometrium. Small probable fibroid measures 1.3 cm Endometrium 3 mm thickness. No lesions. Right ovary 1.8 x 1.6 x 1.4 cm. Dominant follicle noted in the right ovary. Left ovary 1.9 x 1.3 x 1.6 cm. No free fluid. IMPRESSION: 1. Unremarkable pelvic ultrasound This document has been electronically signed by: Oscar Jones MD, PHD on 02/28/2025 02:50:23 Comparison: CT/SR - CT ABDOMEN PELVIS WO IV CON - 09/14/24 14:22 EDT Findings: The lung bases are clear. Liver is of low-attenuation, hepatic steatosis. No focal hepatic lesion. Gallbladder, pancreas, spleen and adrenal glands are within normal limits. Kidneys are non hydronephrotic and enhance symmetrically. No bowel obstruction, pneumoperitoneum, or pneumatosis. Visualized appendix is unremarkable. The tip of the appendix extends to a fat containing right inguinal hernia. Urinary bladder and pelvic structures are within normal limits. The bones are intact. IMPRESSION: No acute findings. This document has been electronically signed by: Oscar Jones MD, PHD on 02/28/2025 04:04:06 External Record Review External record reviewed: Outpatient record and Prior outpatient labs Tests considered The following testing was considered but not selected: Repeat Pelvic Exam Prescription Management I considered prescription management with: Pain Medication and Antibiotic Discharge Plan Discharge Clinical Impression: Abnormal vaginal bleeding Abdominal pain Qualifiers: Abdominal location: lower abdomen, unspecified Qualified Code(s): R10.30 - Lower abdominal pain, unspecified Patient Disposition: Home, Self-Care Instructions: Abdominal Pain (ED), Abnormal (Dysfunctional) Uterine Bleeding (ED) Additional Instructions: Slime por elegir el [facility]artamento [facility] Urgencias del [facility] M?dico [place] para dimas atenci?n m?dica hoy. Afortunadamente, judith an?lisis de laboratorio, an?lisis de orina, tomograf?a computarizada de abdomen y ecograf?a p?lvica de hoy no mostraron evidencia de girish?n proceso jamal de emergencia responsable de judith s?ntomas. En john momento, no hay indicaci?n de ingreso hospitalario ni de observaci?n continua en el servicio de urgencias, y es seguro darle de musa. La causa exacta de dimas dolor y sangrado vaginal irregular no est? del todo leilani. Es fundamental que acuda a marva consulta de seguimiento con dimas ginec?logo para marva nueva evaluaci?n y considerar marva biopsia para investigar m?s a fondo el origen de judith s?ntomas. Puede luz elena dosis alternas (escalonadas) de ibuprofeno 600 mg y Tylenol 1000 mg cada 4 horas seg?n sea necesario para cualquier dolor adicional. Mant?ngase ginny hidratada y descanse lo suficiente. Tambi?n le recomendamos que acuda a marva consulta de seguimiento con dimas m?dico de cabecera para marva reevaluaci?n, un manejo adicional de judith s?ntomas y atenci?n preventiva continua. Si no tiene un m?dico de cabecera, llame a [facility] al [phone] para asignarle yumiko nuevo. Mientras espera la asignaci?n de dimas nuevo m?dico de cabecera, puede llamar a nuestra Cl?joel de Atenci?n Sin Deonna Previa al [phone] para necesidades que no jonna de emergencia. Regrese a urgencias si presenta un cambio repentino o grave en judith s?ntomas, fiebre superior a 38 ?C que no mejora con Tylenol o ibuprofeno, v?mitos recurrentes o cualquier otro s?ntoma o inquietud nuevo o que empeore. Thank you for choosing [facility]'s Emergency Department for your care today. Thankfully your laboratory evaluation, urinalysis, CT abdomen, and pelvic ultrasound today all showed no evidence of any acute emergent process responsible for your symptoms. At this time there is no indication for admission to the hospital or continued ED observation, and it is safe to discharge you home. The exact cause of your pain an irregular vaginal bleeding is not entirely clear, it is extremely important that you follow up with the your OBGYN for repeat evaluation and consideration of biopsy for additional investigation of the source of your symptoms. You may take alternating (staggered) doses of ibuprofen 600mg and Tylenol 1000mg every 4 hours as needed for any additional pain. Please stay well hydrated and get plenty of rest. Please also follow up with your primary care physician for re-evaluation, additional management of your symptoms, and continued preventative care. If you do not have a primary care physician, please call the [facility] at [phone] to establish a new primary care physician. While waiting to establish your new primary care physician, you can call our Walk[facility]in [facility] at [phone] for non-emergency needs. Please return to the emergency department if you develop a severe or sudden change in your symptoms, a fever over 100.4 that does not improve with Tylenol or Ibuprofen, recurrent vomiting, or any other new or worsening symptoms or concerns. Prescriptions: No Action (DME) blood pressure monitor Kit See Rx Instructions .Route Qty: 1 0RF Rx Instructions: As directed (DME) lancets 28 gauge misc See Rx Instructions topical DIRECTED Qty: 100 0RF Rx Instructions: Test once daily (DME) blood-glucose meter [FreeStyle Lite Meter] Kit See Rx Instructions .Route Qty: 1 0RF Rx Instructions: As directed meclizine 25 mg tablet 25 mg PO DAILY PRN (Reason: dizziness) 15 Days Qty: 15 2RF zolpidem 10 mg tablet 10 mg PO BEDTIME PRN (Reason: insomnia) 90 Days Qty: 90 0RF (DME) FreeStyle Lite Strips Strip See Rx Instructions .ROUTE .COMPLEX Qty: 100 0RF Dose Instruction: USE TODOS LOS H[facility] Rx Instructions: USE TODOS [place] [facility] hydrochlorothiazide 25 mg tablet 25 mg PO DAILY Qty: 90 0RF aspirin 81 mg tablet,delayed release (DR/EC) 81 mg PO DAILY Qty: 90 3RF miconazole nitrate [Monistat 7] 2 % cream 1 appful vaginal BEDTIME 7 Days Qty: 45 0RF fluconazole 150 mg tablet 150 mg PO DAILY 1 Days Qty: 1 0RF acetaminophen [Tylenol Extra Strength] 500 mg tablet 500 mg PO Q6H PRN (Reason: pain or fever) Qty: 20 0RF calcipotriene 0.005 % solution topical loratadine [Claritin] 10 mg tablet 10 mg PO DAILY PRN (Reason: allergy symptoms) 90 Days Qty: 90 3RF albuterol sulfate 2.5 mg /3 mL (0.083 %) solution for nebulization 2.5 mg continuous nebulization QID PRN (Reason: shortness of breath or wheezing) (DME) RIGHT WRIST SPLINT (large) large See Rx Instructions .Route .MEDSUPPLY Qty: 1 0RF Rx Instructions: As directed albuterol sulfate 90 mcg/actuation HFA aerosol inhaler 2 puff PO QID PRN sumatriptan succinate 50 mg tablet 50 mg PO Q2-4H PRN (Reason: migraine headache) Rx Instructions: do not exceed 4 doses per 24 hrs Synjardy 12.5-500 mg tablet 1 tab PO DAILY carvedilol 6.25 mg tablet 6.25 mg PO BID betamethasone valerate 0.1 % cream 1 appl topical BID Qty: 45 0RF Rx Instructions: use for 1-2 weeks until symptoms clear hydroquinone 4 % cream 1 appl topical DAILY fluticasone furoate-vilanterol [Breo Ellipta] 200-25 mcg/dose blister with device 1 inh inhalation DAILY Qty: 1 6RF bisacodyl [Dulcolax (bisacodyl)] 5 mg tablet,delayed release (DR/EC) 10 mg PO BEDTIME 30 Days Qty: 60 6RF esomeprazole magnesium 40 mg capsule,delayed release(DR/EC) 40 mg PO BID Qty: 60 6RF sucralfate [Carafate] 1 gram tablet 2 g PO DAILY Qty: 60 6RF Referrals: Name,MD Matt [Primary Care Provider, Internal Medicine] Clinical Impression: Abnormal vaginal bleeding; Abdominal pain Print Language: Welsh
[2025-02-27 14:51] VITALS: BP 175/80; PULSE 71; RESP 18; TEMP 36.5; O2SAT 99; BMI 37.2
[2025-02-27 15:07] LABS: MANUAL DIFF FLAG NO
[2025-02-27 15:14] LABS: Hematocrit 41.9 % (37.0-47.0); Hemoglobin 13.5 g/dl (12.0-16.0); Imm Gran Abs Auto 0.03 X10*3/uL (0.00-0.03); Imm Gran Pct Auto 0.3 % (0.0-0.4); Lymphocytes Absolute Auto 2.4 X10*3/uL (1.2-4.9); Mean Corpuscular HGB Conc 32.2 g/dl (31.0-35.0); Mean Corpuscular Hemoglobin 27.1 pg (27.0-33.0); Mean Corpuscular Volume 84.1 fL (80.0-98.0); NRBC Abs Auto 0.000 X10*3/uL (0.0-0.012); NRBC Pct Auto 0.0 /100WBC (0.0-0.2); Platelet Count 308 X10*3/uL (160-400); Red Blood Count 4.98 X10*6/uL (4.20-5.50); White Blood Count 9.1 X10*3/uL (4.8-10.8)
[2025-02-27 15:39] LABS: Alanine Aminotransferase 34 U/L (0-31); Albumin Level 4.1 g/dL (3.5-5.0); Alkaline Phosphatase 112 U/L (39-117); Anion Gap 10 (12-20); Aspartate Amino Transferase 32 U/L (5-31); Blood Urea Nitrogen 13 mg/dL (9-16); Calcium 9.4 mg/dL (8.4-10.2); Carbon Dioxide 29 mmol/L (22-29); Chloride 109 mmol/L (96-108); Creatinine Clr Calc Pharmacy 88.2; Estimated Glomerular Filt Rate > 60; Potassium 3.7 mmol/L (3.3-5.1); Sodium 144 mmol/L (135-145); Total Protein 7.0 g/dL (6.5-8.0)
[2025-02-27 21:31] LABS: Appearance Urine Clear; Glucose Urine UA Negative (Negative); PH 5.5 (5.0-9.0); Specific Gravity - Urine 1.010 (1.005-1.025); UMIC TRIGGER UACC YES
--- OUTSIDE RECORDS SUMMARY | 2025-02-27 21:56 | XMS_ITS | Encounter Summary ---
Author Organization [employer] Address [address] [facility] 7t [place] [address] Care Team Providers Care Loader Operator Name Role Phone Name, Matt APPIAH Primary Care Provider [phone] Ni Gandhi RN Unavailable [phone] Radha Borden Unavailable Reason for Visit * Reason Comments Care Management C3CM- chart review Encounter Details Date Type Department Care Team ([facility] st Contact Info) Description 02/24/2025 Patient Outreach [facility] [address] [place], [place] [phone] Name, MD Matt [address] [place] [address] Care Management (C3CM- chart review) Social History Tobacco Use Types Packs/Day Years Used Date Smoking Tobacco: Never Smokeless Tobacco: Never Alcohol Use Standard Drinks/Week Comments Never 0 (1 standard drink = 0.6 oz pur e alcohol) Depression Answer Date Recorded Patient Health Questionnaire-9 Score 5 11/30/2024 Patient Health Questionnaire-9 Score 5 11/30/2024 Last PHQ-9: Questionnaire Data Not on file 0 11/30/2024 Housing Stability Answer Date Recorded What is [...] Answer Date Recorded Patient Health Questionnaire-2 Score 1 11/30/2024 Internet Access Answer Date Recorded Internet Access Q1 Yes 02/15/2024 Internet Access Q2 Not on file 02/15/2024 Comments Unknown Sex and Gender Information Value Date Recorded Sex Assigned at Female 04/14/2022 10:15 AM EDT Legal Sex Female 10:15 AM EDT Gender Identity Female 04/14/2022 10:15 AM EDT Sexual Orientation Straight 04/14/2022 10 :15 AM EDT documented as of this encounter Progress Notes * Ni Gandhi RN - 02/24/2025 8:29 AM EDT MARIA ANTONIA Gandhi RN, performed chart review, in anticipation of initial assessment with patient, as patient has stratified for C3 Adult Complex Care through the ADT feed. History significant for asthma, degeneration of intervertebral disc, depressive disorder, dizziness, epidermoid cyst, trichilemm al cyst, HTN, hyperlipidemia, migraine, severe obesity, psoriatic arthritis, scalp psoriasis, seborrheic dermatitis, Type 2 DM, CLARA, carpal tunnel syndrome, fibromyalgia, GERD, hemorrhoids, insomnia,HURD, osteoarthritis, premenstrual symptom, tricuspid regurgitation, and psoriasis. Specialists include [facility] WATER QUALITY CONTROL ENGINEER, [facility] GI, [facility] Cardiology, Neurosurgery, Dermatology, ENT, Podiatry, and Rheumatology. EDvisits within the last 12 months include [facility] ED 02/24/25. Last appointment in PCP office on 11/30/24.Next appointment scheduled for 03/14/25. documented in this encounter Plan of Treatment Upcoming Encounters Date Type Department Care Team ([facility] st Contact Info) Description 03/14/2025 1:00 PM EDT Office Visit [facility] [address] [place] [address] Name, MD Matt [address] [place] [address] documented as of this encounter Visit Diagnoses Not on filedocumented in this encounter Additional Health Concerns Assessment Noted Time PHQ-9 Depression Total Score: 5 12/01/19 25 3:07 PM EDT documented as of this encounter Care Teams Loader Operator Relationship Specialty Start Date End Date Name, MD Matt [address] [place] [address] PCP - General Family Medicine 02/21/22 Ni Gandhi RN [address] [place] [address] Registered Nurse Family Medicine 02/24/25 Radha Borden 02/24/25 Estephanie Tan Java SoftwareCamp Manager 11/24/23 documented as of this encounter
--- OUTSIDE RECORDS SUMMARY | 2025-02-27 21:56 | XMS_ITS | Encounter Summary ---
Author Organization [employer] Address [address] [facility] 7t [place] [address] Care Team Providers Care Cloth Washer Name Role Phone Name, Matt APPIAH Primary Care Provider [phone] Ni Gandhi RN Unavailable [phone] Radha Borden Unavailable Reason for Visit * Reason Comments Care Coordination CM/CHW outreach Encounter Details Date Type Department Care Team (Latest Contact Info) Description 02/27/2025 Patient Outreach [facility] 230 [place], [place] [phone] Name, MD Matt [address] [place] [address] Care Coordination (CM/CHW outreach) Social History Tobacco Use Types Packs/Day Years [...] as of this encounter Progress Notes * Radha Borden - 02/27/2025 10:13 AM EDT CHW Radha Borden, placed outbound call to patient in regards to help with SDOH services and to introduce Adult Complex Care Program CHW LVM introducing herself from [facility] CM Department with CHW's name, department and direct contact number requesting call back. Will re-attempt to contact within 5 days. and address not confirmed. documented in this encounter Plan of Treatment Upcoming Encounters Date Type Department Care Team (Late st Contact Info) Description 03/14/2025 1:00 PM EDT Office Visit [facility] [address] [place] [address] NameMatt MD [address] [place] [address] documented as of this encounter Visit Diagnoses Not on filedocumented in this encounter Additional Health Concerns Assessment Noted Time PHQ-9 Depression Total Score: 5 12/01/19 25 3:07 PM EDT documented as of this encounter Care Teams Cloth Washer Relationship Specialty Start Date End Date NameMatt MD [address] [place] [address] PCP - General Family Medicine 02/21/22 Ni Gandhi RN [address] [place] [address] Registered Nurse Family Medicine 02/24/25 Radha Borden 02/24/25 Estephanie Tan Trademark AttorneyCar Knocker 11/24/23 documented as of this encounter
--- OUTSIDE RECORDS SUMMARY | 2025-02-27 21:56 | XMS_ITS ---
Author Organization [employer] Address [address] [facility] 7t [place] [address] Care Team Providers Care Aircraft Mechanic Structures Name Role Phone Name, Matt APPIAH Primary Care Provider [phone] Ni Gandhi RN Unavailable Radha Borden Unavailable CM Complex Status:Outreach In Progress (Enrolling) Start date:02/24/2025 Enrollment reason:ADT Feed Overview ADT- [facility] ED 02/23/25 Case Team Name Relationship Phone Ni Gandhi RN(Responsible Staff) Registered Nurse [phone] Continued Care and Services Coordination
--- OUTSIDE RECORDS SUMMARY | 2025-02-27 21:56 | XMS_ITS ---
Author Organization [employer] Address [address] [facility] 7t [place] [address] Care Team Providers Care Set Illustrator Name Role Phone Name, Matt APPIAH Primary Care Provider [phone] Ni Gandhi RN Unavailable [phone] Radha Borden Unavailable CHW Complex Status:Outreach In Progress (Enrolling) Start date:02/24/2025 Enrollment reason:ADT Feed Overview ADT- [facility] ED 02/23/25. Please outreach for enrollment. Case Team Name Relationship Phone Radha Borden(Responsible Staff) [phone] Continued Care and Services Coordination
--- OUTSIDE RECORDS SUMMARY | 2025-02-27 21:56 | XMS_ITS | Encounter Summary ---
Author Organization [employer] Address 75 [facility] 7t [place] [address] Care Team Providers Care Artillery Meteorological Man Name Role Phone Name, Matt APPIAH Primary Care Provider Ni Gandhi RN Unavailable [phone] Radha Borden Unavailable Reason for Visit * Reason Onset Date Comments Med Refill 09/24/2023 Encounter Details Date Type Department Care Team ([facility] st Contact Info) Description 09/24/2023 Telephone [facility] 230 [place] [address] Name, MD Matt [address] [place], [place] [phone] Med Refill Social History Tobacco Use Types [...] 10 MG tablet To be sent to: [facility] - [place] - [phone] - [place] - [phone] documented in this encounter Plan of Treatment Upcoming Encounters Date Type Department Care Team (Late st Contact Info) Description 03/14/2025 1:00 PM EDT Office Visit [facility] [address] [place] [address] Name, MD Matt [address] [place] [address] documented as of this encounter Visit Diagnoses Not on filedocumented in this encounter Additional Health Concerns Assessment Noted Time PHQ-9 Depression Total Score: 0 09/07/19 24 3:15 PM EDT documented as of this encounter Care Teams Artillery Meteorological Man Relationship Specialty Start Date End Date Name, MD Matt [address] [place] [address] PCP - General Family Medicine 02/21/22 Ni Gandhi, RN [address] [place] [address] Registered Nurse Family Medicine 02/24/25 Radha Borden 02/24/25 Estephanie Tan Concrete PointerManager Secondary 11/24/23 documented as of this encounter
--- OUTSIDE RECORDS SUMMARY | 2025-02-27 21:56 | XMS_ITS | Encounter Summary ---
Author Organization [employer] Address [address] [facility] 7t [place] [address] Care Team Providers Care Building Cleaning Supervisor Name Role Phone Name, Matt APPIAH Primary Care Provider [phone] Ni Gandhi RN Unavailable [phone] Radha Borden Unavailable Encounter Details Date Type Department Care Team (Late st Contact Info) Description 02/24/2025 Patient Outreach [facility] 230 [place] [address] Name, MD Matt [address] [place], [place] [phone] Social History Tobacco Use Types Packs/Day Years [...] 1:00 PM EDT Office Visit [facility] [address] [place] [address] Name, MD Matt [address] [place] [address] documented as of this encounter Visit Diagnoses Not on filedocumented in this encounter Additional Health Concerns Assessment Noted Time PHQ-9 Depression Total Score: 5 12/01/19 25 3:07 PM EDT documented as of this encounter Care Teams Building Cleaning Supervisor Relationship Specialty Start Date End Date NameMatt MD [address] [place] [address] PCP - General Family Medicine 02/21/22 Ni Gandhi RN [address] [place] [address] Registered Nurse Family Medicine 02/24/25 Radha Borden 02/24/25 Estephanie Tan Clinical Physician AssistantParker 11/24/23 documented as of this encounter
--- OUTSIDE RECORDS SUMMARY | 2025-02-27 21:56 | XMS_ITS | Encounter Summary ---
Author Organization [employer] Address [address] [facility] 7t [place] [address] Care Team Providers Care Public Service Director Name Role Phone Name, Matt APPIAH Primary Care Provider [phone] Ni Gandhi RN Unavailable [phone] Radha Borden Unavailable Reason for Visit * Reason Comments Care Coordination CHW chart review Encounter Details Date Type Department Care Team (Latest Contact Info) Description 02/24/2025 Patient Outreach [facility] 230 [place], [place] [phone] Name, MD Matt [address] [place] [address] Care Coordination (CHW chart review) Social History Tobacco Use Types [...] encounter Progress Notes * Radha Borden - 02/24/2025 3:09 PM EDT CM/C3 CHW Radha Borden Chart Review CHW Radha Borden reviewed chart review completed by MARIA ANTONIA Gandhi RN MARIA ANTONIA Gandhi RN, performed chart review, [...] symptom, tricuspid regurgitation, and psoriasis. Specialists include [facility] TOOL POLISHING MACHINE OPERATOR, [facility] GI, [facility] Cardiology, Neurosurgery, Dermatology, ENT, Podiatry, and Rheumatology. EDvisits within the last 12 months include [facility] ED 02/24/25. Last appointment in PCP office on 11/30/24.Next appointment scheduled for 03/14/25. documented in this encounter Plan of Treatment Upcoming Encounters Date Type Department Care Team (Late st Contact Info) Description 03/14/2025 1:00 PM EDT Office Visit [facility] [address] [place] [address] Name, MD Matt [address] [place] [address] documented as of this encounter Visit Diagnoses Not on filedocumented in this encounter Additional Health Concerns Assessment Noted Time PHQ-9 Depression Total Score: 5 12/01/19 25 3:07 PM EDT documented as of this encounter Care Teams Public Service Director Relationship Specialty Start Date End Date Name, MD Matt [address] [place] [address] PCP - General Family Medicine 02/21/22 Ni Gandhi RN [address] [place] [address] Registered Nurse Family Medicine 02/24/25 Radha Borden 02/24/25 Estephanie Tan Tacking Stitch RemoverTransitions Manager Rn 11/24/23 documented as of this encounter
--- OUTSIDE RECORDS SUMMARY | 2025-02-27 21:56 | XMS_ITS | Encounter Summary ---
Author Organization [employer] Address [address] [facility] 7t [place] [address] Care Team Providers Care Head Still Operator Name Role Phone Name, Matt APPIAH Primary Care Provider [phone] Ni Gandhi RN Unavailable [phone] Radha Borden Unavailable Reason for Visit * Reason Onset Date Comments Durable Medical Equipment 04/06/2024 Encounter Details Date Type Department Care Team ([facility] st Contact Info) Description 04/06/2024 Telephone [facility] [address] [place] [address] Name, MD Matt [address] [place], [place] [phone] Durable Medical Equipment Social History Tobacco Use [...] Description 03/14/2025 1:00 PM EDT Office Visit [facility] [address] [place] [address] Name, MD Matt [address] [place] [address] documented as of this encounter Visit Diagnoses Not on filedocumented in this encounter Additional Health Concerns Assessment Noted Time PHQ-9 Depression Total Score: 0 09/07/19 24 3:15 PM EDT documented as of this encounter Care Teams Head Still Operator Relationship Specialty Start Date End Date Name, MD Matt [address] [place] [address] PCP - General Family Medicine 02/21/22 Ni Gandhi RN [address] [place] [address] Registered Nurse Family Medicine 02/24/25 Radha Borden 02/24/25 Estephanie Tan Activities TherapistSurveying Crew Rodman 11/24/23 documented as of this encounter
--- OUTSIDE RECORDS SUMMARY | 2025-02-27 21:56 | XMS_ITS | Encounter Summary ---
Author Organization [employer] Address 75 [facility] 7t [place] [address] Care Team Providers Care Grinding Room Supervisor Name Role Phone Name, Matt APPIAH Primary Care Provider [phone] Ni Gandhi RN Unavailable [phone] Radha Borden Unavailable Reason for Visit * Reason Onset Date Comments Med Refill 01/21/2024 Encounter Details Date Type Department Care Team ([facility] st Contact Info) Description 01/21/2024 Telephone [facility] 230 [place] [address] Name, MD Matt 230 [place], [place] [phone] Med Refill Social History Tobacco Use Types [...] 10 MG tablet To be sent to: [facility] - [place], [place] - [phone] - [place] - [address] documented in this encounter Plan of Treatment Upcoming Encounters Date Type Department Care Team ([facility] st Contact Info) Description 03/14/2025 1:00 PM EDT Office Visit [facility] [address] [place] [address] Name, MD Matt [address] [place] [address] documented as of this encounter Visit Diagnoses Not on filedocumented in this encounter Additional Health Concerns Assessment Noted Time PHQ-9 Depression Total Score: 0 09/07/19 24 3:15 PM EDT documented as of this encounter Care Teams Grinding Room Supervisor Relationship Specialty Start Date End Date Name, MD Matt [address] [place] [address] PCP - General Family Medicine 02/21/22 Ni Gandhi RN [address] [place], [place] [address], [place] [address] Registered Nurse Family Medicine 02/24/25 Radha Borden 02/24/25 Estephanie Tan Party HostManufacturing Quality Technician 11/24/23 documented as of this encounter
--- OUTSIDE RECORDS SUMMARY | 2025-02-27 21:56 | XMS_ITS | Encounter Summary ---
Author Organization [employer] Address [address] [facility] 7t [place] [address] Care Team Providers Care Glove Machine Operator Name Role Phone Name, Matt APPIAH Primary Care Provider Ni Gandhi RN Unavailable [phone] Radha Borden Unavailable Reason for Visit * Reason Onset Date Comments triage 09/18/2022 Encounter Details Date Type Department Care Team ([facility] st Contact Info) Description 09/18/2022 Telephone [facility] 230 [place], [place] [phone] Name, MD Matt [address] [place], [place] [phone] triage Social History Tobacco Use Types Packs/Day [...] The caller accepted this outcome pt speaks mongolian documented in this encounter Plan of Treatment Upcoming Encounters Date Type Department Care Team (Late st Contact Info) Description 03/14/2025 1:00 PM EDT Office Visit [facility] [address] [place] [address] Name, MD Matt [address] [place] [address] documented as of this encounter Visit Diagnoses Not on filedocumented in this encounter Care Teams Glove Machine Operator Relationship Specialty Start Date End Date Name, MD Matt [address] [place] [address] PCP - General Family Medicine 02/21/22 Ni Gandhi RN [address] [place] [address] Registered Nurse Family Medicine 02/24/25 Radha Borden 02/24/25 Estephanie Tan Stock SupervisorMaintenance Coordinator 11/24/23 documented as of this encounter
--- OUTSIDE RECORDS SUMMARY | 2025-02-27 21:56 | XMS_ITS | Clinical Summary ---
Author Organization [facility] Address [address] [address] Phone Care Team Providers Care Demonstrator Sewing Techniques Name Role Phone Name, Matt APPIAH Primary Care Provider [phone] Allergies Active Allergy Reactions Criticality Noted Date [...] tablet, 0 Refills, Maintenance, 08/21/21 8:47:00 EST, [facility]/pharmacy #[id number], Partial fill upon [...] 2020 ZOSTER VACCINES (1 of 2) 2020 INFLUENZA VACCINE (#1) 2025 COVID-19 VACCINE (1 - 2023-2 5 season) 2025 Adult Td,Tdap Booster 05/11/2027 05/11/2017 HEPATITIS A [...] topic Medical Devices Not on file [place] [place] [address] [place] [address] [place] [place] [address] C3 ACO [facility] C3 ACO Care Teams Demonstrator Sewing Techniques Relationship Specialty Start Date End Date Name, MD Matt [address] [place] [address] PCP - General Geriatric Psychiatry 04/16/22 Additional Source Comments The information contained in this document represents components of the legal health record. It is not the complete legal health record.[facility]
--- OUTSIDE RECORDS SUMMARY | 2025-02-27 21:56 | XMS_ITS | Encounter Summary ---
Author Organization [employer] Address 75 [facility] 7t [place] [address] Care Team Providers Care Child Development Professor Name Role Phone Name, Matt APPIAH Primary Care Provider [phone] Encounter Details Date Type Department Care Team (Late st Contact Info) Description 02/23/2025 Orders Only GENERIC EXTERNAL DATA DEPARTMENT Provider, [...] Description 03/14/2025 1:00 PM EDT Office Visit [facility] 230 [place] [address] Name, MD Matt [address] [place] [address] documented as of this encounter Procedures Procedure Name Priority Date/Time Associated Diagnosis Comments CBC WITH AUTO DIFFERENTIAL Routine 02/23/2025 4:17 PM EDT MAGNESIUM Routine 02/23/2025 4:17 PM EDT COMPREHENSIVE METABOLIC PANEL Routine 02/23/2025 4:17 PM EDT documented in this encounter Results * Magnesium (02/23/2025 4:17 PM EDT) Magnesium 1.9 1.6 - 2.6 mg/dL [facility] 02/23/2025 4:17 PM EDT 02/23/2025 4:21 PM EDT us Generic External Data Provider LAB BLOOD ORDERAB LES Final Result [facility] [address] [place] [address] [phone] * (ABNORMAL) Comprehensive Metabolic Panel (02/23/2025 4:17 PM EDT) Sodium 145 135 - 145 mmol/L [facility] Potassium 3.7 3.3 - 5.1 mmol/L [facility] Chloride 109(H) 96 - 108 mmol/L [facility] Carbon Dioxide 26 22 - 29 mmol/L [facility] Anion Gap 14 12 - 20 [facility] Urea Nitrogen (BUN) 15 9 - 16 mg/dL [facility] Creatinine, Serum 0.82 0.5 - 1.4 mg/dL [facility] Creatinine Clr Calc Pharmacy 103.0 [facility] Comment:Provided height and weight: 175.26 cm,108.862 kg.eGFR (calculated from the MDRD study equation) and eCrCl(calculated from the Cockcroft-Gault equation) are based ondifferent parameters and may not yield comparable results.If eCrCl result is absurd, please check patient'sheight/weight. Estimated Glomerular Filt Rate >60 [facility] Comment:Chronic Kidney Disea se: Estimated GFR < 60 mL/min/1.78r0Mtesbk Kidney Disease: Estimated GFR < 15 mL/min/1.73m2 Glucose 121(H) 60 - 115 mg/dL [facility] Calcium 8.8 8.4 - 10.2 mg/dL [facility] Bilirubin, Total 0.9 0.0 - 1.0 mg/dL [facility] Aspartate Amino Transferase 43(H) 5 - 31 U/L [facility] Alanine Aminotransferase 43(H) 0 - 31 U/L [facility] Total Protein 7.1 6.5 - 8.0 g/dL [facility] Albumin Level 4.2 3.5 - 5.0 g/dL [facility] Alkaline Phosphatase 110 39 - 117 U/L [facility] 02/23/2025 4:17 PM EDT 02/23/2025 4:21 PM EDT us Generic External Data Provider LAB BLOOD ORDERAB LES Final Result [facility] [address] [place] [address] [phone] * (ABNORMAL) CBC auto differential (02/23/2025 4:17 PM EDT) White Blood Count 9.4 4.8 - 10.8 X10*3/uL [facility] Red Blood Count 5.10 4.20 - 5.50 X10*6/uL [facility] Hemoglobin 13.5 12.0 - 16.0 g/dl [facility] Hematocrit 42.5 37.0 - 47.0 % [facility] Mean Corpuscular Volume 83.3 80.0 - 98.0 fL [facility] Mean Corpuscular Hemoglobin 26.5(L) 27.0 - 33.0 pg [facility] Mean Corpuscular HGB Conc 31.8 31.0 - 35.0 g/dl [facility] Red Cell Distribution Width 14.6 11.0 - 16.0 % [facility] Platelet Count 291 160 - 400 X10*3/uL [facility] Mean Platelet Volume 9.8 9.4 - 12.3 fL [facility] Neutrophils Percent Auto 58.1 45 - 73 % [facility] Imm Gran Pct Auto 0.2 0.0 - 0.4 % [facility] Lymphocytes Percent Auto 31.0 20 - 40 % [facility] Monocytes Percent Auto 8.4 2 - 11 % [facility] Eosinophils Percent Auto 1.7 0 - 4 % [facility] Basophils Percent Auto 0.6 0 - 2 % [facility] NRBC Pct Auto 0.0 0.0 - 0.2 /100WBC [facility] Neutrophils Absolute Auto 5.4 2.0 - 8.3 x10*3/uL [facility] Imm Gran Abs Auto 0.02 0.00 - 0.03 X10*3/uL [facility] Lymphocytes Absolute Auto 2.9 1.2 - 4.9 X10*3/uL [facility] Monocytes Absolute Auto 0.8 0.1 - 1.2 X10*3/uL [facility] Eosinophils Absolute Auto 0.2 0.0 - 0.4 X10*3/uL [facility] Basophils Absolute Auto 0.1 0.0 - 0.2 X10*3/uL [facility] NRBC Abs Auto 0.000 0.0 - 0.012 X10*3/uL [facility] 02/23/2025 4:17 PM EDT 02/23/2025 4:21 PM EDT us Generic External Data Provider LAB BLOOD ORDERAB LES Final Result Performing Organization Address City/State/RUST Co de Phone Number [facility] [address] [place] [address] [phone] documented in this encounter Visit Diagnoses Not on filedocumented in this encounter Additional Health Concerns Assessment Noted Time PHQ-9 Depression Total Score: 5 12/01/19 25 3:07 PM EDT documented as of this encounter Care Teams Child Development Professor Relationship Specialty Start Date End Date Name, MD Matt [address] [place] [address] PCP - General Family Medicine 02/21/22 Estephanie Tan Accountant BudgetCardiac Monitor Technician 11/24/23 documented as of this encounter
--- OUTSIDE RECORDS SUMMARY | 2025-02-27 21:56 | XMS_ITS | Encounter Summary ---
Author Organization [employer] Address [address] [facility] 7t [place] [address] Care Team Providers Care Power Station Operator Name Role Phone Name, Matt APPIAH Primary Care Provider [phone] Ni Gandhi RN Unavailable [phone] Radha Borden Unavailable Encounter Details Date Type Department Care Team (Late st Contact Info) Description 08/05/2024 Orders Only [facility] [address] [place], [place] [phone] Yolande Knight MD [address] [place], [place] [phone] Social History Tobacco Use Types Packs/Day Years [...] Description 03/14/2025 1:00 PM EDT Office Visit [facility] [address] [place] [phone] Name, MD Matt [address] [place] [address] documented as of this encounter Visit Diagnoses Not on filedocumented in this encounter Additional Health Concerns Assessment Noted Time PHQ-9 Depression Total Score: 0 09/07/19 24 3:15 PM EDT documented as of this encounter Care Teams Power Station Operator Relationship Specialty Start Date End Date NameMatt MD [address] [place] [address] PCP - General Family Medicine 02/21/22 Ni Gandhi RN [address] [place] [phone] Registered Nurse Family Medicine 02/24/25 Radha Borden 02/24/25 Estephanie Tan Public Area AttendantRibbon Weaver 11/24/23 documented as of this encounter
--- OUTSIDE RECORDS SUMMARY | 2025-02-27 21:56 | XMS_ITS | Clinical Summary ---
Author Organization [employer] Address [address] [facility] 7t [place] [address] Care Team Providers Care Seat Maker Name Role Phone Name, Matt APPIAH Primary Care Provider [phone] Ni Gandhi RN Unavailable [phone] Radha Borden Unavailable Allergies Active Allergy Reactions Criticality Noted Date Comments Atorvastatin 08/07/2011 tachycardia tachycardia Clarithromycin 11/21/2016 Gabapentin 12/25/2014 Nausea/ dizziness Nausea/ dizziness Hydrocodone-Acetaminophen 08/07/2011 Other reaction(s): increased hr palpitations palpitations Other reaction(s): increased hr Morphine 12/25/2014 Other reaction(s): red skin/ panic/ [...] reaction(s): cellulitis, Rash/Dermatitis Other reaction(s): cellulitis hives rash hives rash Medications * This document contains information received from the source organization and may not represent a complete record from that organization. budesonide-form oterol (Symbicort) 160-4.5 MCG/ACT inhaler 02/01/20 22 Active Diclofenac Sodium 1 % gel Apply topically. 2 times every day to the affected area 03/17/20 22 Active dicyclomine (Bentyl) 10 MG capsule 01/24/20 22 Active famotidine (Pepcid) 40 MG tablet Take 1 tablet by mouth at bedtime. 01/19/20 22 Active pantoprazole (ProtoNix) 40 MG EC tablet 10/26/19 22 Active Blood Glucose Monitoring Suppl (FreeStyle Lite) device Inject under the skin if needed. Use as instructed Active clindamycin (Cleocin T) 1 % lotionIndicatio ns:Scalp psoriasis APLIQUE CAPA BEHZAD EL AREA AFECTADA TODOS LOS HAM 60 mL 3 08/08/19 23 Active ipratropium (Atrovent) 0.03 % nasal sprayIndication s:Acute cough,Seasonal allergies Administer 2 sprays into each nostril every 12 (twelve) hours. 30 mL 12 09/30/19 24 Active fluticasone (Flonase) 50 MCG/ACT nasal sprayIndication [...] DAYS 75 mL 11 04/06/20 24 Active Synjardy 12.5-500 MG TAKE 1 TABLET BY MOUTH two (2) times a day (WITH BREAKFAST, AND WITH DINNER) 180 tablet 3 05/20/20 24 Active aspirin (Aspirin Low Dose) 81 MG EC tabletIndicatio ns:Essential hypertension TAKE 1 TABLET BY MOUTH ONCE DAILY 90 tablet 06/16/19 25 Active mometasone (Elocon) 0.1 % ointment Apply topically Once per day. 45 g 2 12/01/19 25 026 Active hydroCHLOROthia zide (HYDRODiuril) 25 MG tabletIndicatio ns:Hypertension , unspecified type TAKE 1 TABLET BY MOUTH ONCE DAILY 90 tablet 1 01/06/20 25 Active carvedilol (Coreg) 6.25 MG tabletIndicatio ns:Essential hypertension TAKE 1 TABLET BY MOUTH two (2) times a day WITH A MEAL 180 tablet 1 02/04/20 25 Active zolpidem (Ambien) 10 MG tabletIndicatio ns:Insomnia, unspecified type TAKE 1 TABLET BY MOUTH EVERY NIGHT AT BEDTIME FOR SLEEP 30 tablet 02/21/20 25 Active carvedilol (Coreg) 6.25 MG tabletIndicatio ns:Essential hypertension TAKE 1 TABLET BY MOUTH two (2) times a day WITH A MEAL 180 tablet 1 06/20/19 25 025 Discontinued zolpidem (Ambien) 10 MG tabletIndicatio ns:Insomnia, unspecified type TAKE 1 TABLET BY MOUTH EVERY NIGHT AT BEDTIME FOR SLEEP 30 tablet 01/21/20 25 025 Discontinued(R eorder (will not trigger notification to Pharmacy)) Active Problems Problem Noted Date Diagnosed Date [...] contact information should questions or concerns arise. Plan: Farrah will engage in effective coping mechanisms to manage sxs. Referral will be placed for Ind Therapy and Psychiatrist at [facility], per her request. 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 Hemorrhoids 06/04/2017 Overview (11/06/2023): Internal & external Nonalcoholic steatohepatitis (HURD) 06/04/2017 Insomnia 08/23/2015 Carpal tunnel syndrome 12/25/2014 Overview (01/01/2023): Bilateral - negative EMG at [facility] 2014 Osteoarthritis 12/25/2014 Overview (01/01/2023): Hands, knees, [...] reflux disease) 2 Overview (01/01/2023): F/u [facility] H/o H.pylori x 3 [...] callus 04/13/2018 07/08/2023 Onychomycosis 03/23/2018 07/08/2023 Old MS (myocardial infarction) 12/25/2014 11/06/2023 Overview (01/01/2023): 1998/ Dr Perez 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 07/08/2023 Other psoriasis and similar disorders 12/03/2011 07/08/2023 Encounters Date Type Department Care Team Description 02/27/2025 Patient Outreach [address] [address] Matt Wu MD Care Coordination (CM/CHW outreach) 02/24/2025 Patient Outreach [address] [address] Matt Wu MD Care Coordination (CHW chart review) 02/24/2025 Patient Outreach [address] [address] Matt Wu MD Care Management ([facility]- chart review) 02/24/2025 Patient Outreach [address] [address] Matt Wu MD 02/23/2025 Orders Only GENERIC EXTERNAL DATA DEPARTMENT Provider, Generic External Data 02/20/2025 Refill [facility] [address] [place] [phone] Matt Wu MD Insomnia, unspecified type 02/03/2025 Refill [facility] [address] [place] [phone] Mica Liz MD Essential hypertension 01/20/2025 Refill [facility] [address] [place] [address] Matt Wu MD Insomnia, unspecified type 01/05/2025 Refill [facility] [address] [place] [address] Matt Wu MD Hypertension, unspecified type 12/21/2024 Refill [facility] [address] [place] [address] Matt Wu MD Insomnia, unspecified type 11/30/2024 2:30 PM EDT Office Visit [facility] [address] [place] [phone] Matt Wu MD Type 2 diabetes mellitus with neurological manifestations, controlled (CMS/[facility]) (Primary Dx); Hypertension, unspecified type; Psoriasis; Psoriatic arthritis (CMS/[facility]) 11/30/2024 Travel 11/29/2024 Telephone [facility] [address] [place] [phone] Matt Wu MD Chart Prep from Last 3 Months Immunizations Immunization Administration Dates Next Due Hep B, adult [...] Sign Reading Time Taken Comments Blood Pressure 136/86 11/30/2024 2:35 PM EDT Pulse 69 11/30/2024 2:35 PM EDT Temperature 36.1 C (96.9 F) 11/30/2024 2:35 PM EDT Respiratory Rate 18 11/30/2024 2:35 PM EDT Oxygen Saturation 98% 11/30/2024 2:35 PM EDT Inhaled Oxygen Concentration - - Weight 97.3 kg (214 lb 9.6 oz) 11/30/2024 2:35 P M EDT Height 160 cm (5' 3 ) 11/30/2024 2:35 PM EDT Body Mass Index 38.01 11/30/2024 2:35 PM EDT Plan of Treatment Upcoming Encounters Date Type Department Care Team (Late st Contact Info) Description 03/14/2025 1:00 PM EDT Office Visit [facility] [address] [facility] [place] [address] Name, MD Matt [address] [facility] [place] [address] Health Maintenance Due Date Last Done Comments CT Colonography 1970 Colonoscopy 1970 Colorectal Cancer Screening 1970 FIT DNA/Cologuard 1970 FIT 1970 FOBT 1970 Sigmoidoscopy 1970 Eye Exam 1980 Alcohol/Substance Use Screening 1982 Hepatitis A Vaccines (1 of 2 - Risk 2-dose series) 1989 Pneumococcal Vaccine: 50+ Years (1 of 2 - PCV) 1989 Zoster Vaccines (1 of 2) 2020 Diabetes: Urine Protein Screening 09/08/2024 09/09/2023, 07/08/2023, 03/24/2022 SDOH Screening 12/17/2024 12/18/2023 COVID-19 Vaccine ( season) 2025 01/18/2021, 12/21/2020 Influenza Vaccine (#1) 2025 Diabetes: Hemoglobin A1C 02/15/2025 025, 03/22/2024, 07/08/2023, Additional history exists Diabetes: Foot Exam 03/22/2025 03/22/2024, 03/22/2024, 03/22/2024, Additional history exists Mammogram 05/27/2025 05/27/2024, 04/16, 05/04/2023, Additional history exists Lipid Panel 09/19/2025 09/19/2024, 07/17, 06/17/2024, Additional history exists Depression Screening 11/30/2025 11/30/2024, 12/01/19 25 Disability Screening 11/30/2025 11/30/2024 Tobacco Screening 11/30/2025 11/30/2024 Cervical Cancer Screening 05/17/2026 HPV/Cotest 05/17/2026 05/17/2021 [...] Procedure Name Priority Date/Time Associated Diagnosis Comments MAGNESIUM Routine 02/23/2025 4:17 PM EDT COMPREHENSIVE METABOLIC PANEL Routine 02/23/2025 4:17 PM EDT CBC WITH AUTO DIFFERENTIAL Routine 02/23/2025 4:17 PM EDT POCT GLUCOSE Routine 11/30/2024 2:41 PM EDT Type 2 diabetes mellitus with neurological manifestations, controlled (CMS/HCC) LIPID PANEL, STANDARD Routine 09/19/2024 2:03 PM EDT POCT GLYCATED HEMOGLOBIN, TOTAL Routine 08/15/2024 3:04 PM EST Type 2 diabetes mellitus with neurological manifestations, controlled (CMS/HCC) BI MAMMOGRAM SCREENING TOMOSYNTHESIS BILATERAL Routine 05/27/2024 [...] Relevant to Health Maintenance Results * (ABNORMAL) CBC auto differential (02/23/2025 4:17 PM EDT) White Blood Count 9.4 4.8 - 10.8 X10*3/uL [facility] Red Blood Count 5.10 4.20 - 5.50 X10*6/uL [facility] Hemoglobin 13.5 12.0 - 16.0 g/dl [facility] Hematocrit 42.5 37.0 - 47.0 % [facility] Mean Corpuscular Volume 83.3 80.0 - 98.0 fL [facility] Mean Corpuscular Hemoglobin 26.5(L) 27.0 - 33.0 pg [facility] Mean Corpuscular HGB Conc 31.8 31.0 - 35.0 g/dl [facility] Red Cell Distribution Width 14.6 11.0 - 16.0 % [facility] Platelet Count 291 160 - 400 X10*3/uL [facility] Mean Platelet Volume 9.8 9.4 - 12.3 fL [facility] Neutrophils Percent Auto 58.1 45 - 73 % [facility] Imm Gran Pct Auto 0.2 0.0 - 0.4 % [facility] Lymphocytes Percent Auto 31.0 20 - 40 % [facility] Monocytes Percent Auto 8.4 2 - 11 % [facility] Eosinophils Percent Auto 1.7 0 - 4 % [facility] Basophils Percent Auto 0.6 0 - 2 % [facility] NRBC Pct Auto 0.0 0.0 - 0.2 /100WBC [facility] Neutrophils Absolute Auto 5.4 2.0 - 8.3 x10*3/uL [facility] Imm Gran Abs Auto 0.02 0.00 - 0.03 X10*3/uL [facility] Lymphocytes Absolute Auto 2.9 1.2 - 4.9 X10*3/uL [facility] Monocytes Absolute Auto 0.8 0.1 - 1.2 X10*3/uL [facility] Eosinophils Absolute Auto 0.2 0.0 - 0.4 X10*3/uL [facility] Basophils Absolute Auto 0.1 0.0 - 0.2 X10*3/uL [facility] NRBC Abs Auto 0.000 0.0 - 0.012 X10*3/uL [facility] 02/23/2025 4:17 PM EDT 02/23/2025 4:21 PM EDT Generic External Data Provider LAB BLOOD ORDERAB LES Final Result Performing Organization Address [facility]/ZIP Co de Phone Number [facility] [address] [place] [phone] * Magnesium (02/23/2025 4:17 PM EDT) Magnesium 1.9 1.6 - 2.6 mg/dL [facility] 02/23/2025 4:17 PM EDT 02/23/2025 4:21 PM EDT us Generic External Data Provider LAB BLOOD ORDERAB LES Final Result Performing Organization Address [facility] Co de Phone Number [facility] [address] [place] [phone] * (ABNORMAL) Comprehensive Metabolic Panel (02/23/2025 4:17 PM EDT) Sodium 145 135 - 145 mmol/L [facility] Potassium 3.7 3.3 - 5.1 mmol/L [facility] Chloride 109(H) 96 - 108 mmol/L [facility] Carbon Dioxide 26 22 - 29 mmol/L [facility] Anion Gap 14 12 - 20 [facility] Urea Nitrogen (BUN) 15 9 - 16 mg/dL [facility] Creatinine, Serum 0.82 0.5 - 1.4 mg/dL [facility] Creatinine Clr Calc Pharmacy 103.0 [facility] Comment:Provided height and weight: 175.26 cm,108.862 kg.eGFR (calculated from the MDRD study equation) and eCrCl(calculated from the Cockcroft-Gault equation) are based ondifferent parameters and may not yield comparable results.If eCrCl result is absurd, please check patient'sheight/weight. Estimated Glomerular Filt Rate >60 [facility] Comment:Chronic Kidney Disea se: Estimated GFR < 60 mL/min/[id number] Kidney Disease: Estimated GFR < 15 mL/min/1.73m2 Glucose 121(H) 60 - 115 mg/dL [facility] Calcium 8.8 8.4 - 10.2 mg/dL [facility] Bilirubin, Total 0.9 0.0 - 1.0 mg/dL [facility] Aspartate Amino Transferase 43(H) 5 - 31 U/L [facility] Alanine Aminotransferase 43(H) 0 - 31 U/L [facility] Total Protein 7.1 6.5 - 8.0 g/dL [facility] Albumin Level 4.2 3.5 - 5.0 g/dL [facility] Alkaline Phosphatase 110 39 - 117 U/L [facility] 02/23/2025 4:17 PM EDT 02/23/2025 4:21 PM EDT us Generic External Data Provider LAB BLOOD ORDERAB LES Final Result [facility] [address] [place] [address] [phone] * POCT Glucose (11/30/2024 2:41 PM EDT) Glucose Blood, POC 104 60 - 200 mg/dL QC Media Lot # [id number] Lot# Expiration Date ,025 Blood Capillary blood specimen / Unknown 11/30/2024 2:41 PM EDT Matt Wu MD POINT OF CARE TEST ENTER/EDIT OR DERABLES Final Result * (ABNORMAL) Lipid Panel, Standard (09/19/2024 2:03 PM EDT) Pathologist [facility] Triglycerides 129 <150 mg/dL [facility] Comment:Desirable Triglyceri de: less than 150 mg/dLBorderline High Triglyceride 150-199 mg/dLHigh Triglyceride: 200-499 mg/dLVery High Triglyceride: greater than or equal to 5OO mg/dL Cholesterol 98 <200 mg/dL [facility] Comment:Desirable Cholestero l: less than 200 mg/dLBorderline High Cholesterol: 200-239 mg/dLHigh Cholesterol: greater than 239 mg/dL LDL Cholesterol Calculated 34 <100 mg/dL [facility] Comment:Desirable LDL: less than 100 mg/dLNear Optimal/Above Optimal LDL: 110- 129 mg/dLBorderline High LDL: 130-159 mg/dLHigh LDL: 160-189 mg/dLVery High LDL: greater than or equal to 190 mg/dL HDL Cholesterol 39(L) >40 mg/dL [facility] Comment:Desirable HDL: great er than 40 mg/dL Note: This HDL assay may give artificially low results in patients with liver disease. 09/19/2024 2:03 PM EDT 09/19/2024 2:03 PM EDT Generic External Data Provider LAB BLOOD ORDERAB LES Final Result [facility] [address] [place] [phone] [phone] * (ABNORMAL) POCT HGB A1C (08/15/2024 3:04 PM EST) Hemoglobin A1C 6.7(A) 4.0 - 6.0 % QC Media Lot # [id number] Lot# Expiration Date [id number] Blood 08/15/2024 3:04 PM EST Matt Wu MD POINT OF CARE TEST ENTER/EDIT OR DERABLES Final Result * BI Mammogram Screening Tomosynthesis Bilateral (05/27/2024 1:45 PM EST) Anatomical Region Laterality Modality Breast Bilateral Mammography 05/27/2024 1:45 PM EST Narrative 06/06/2024 4:29 PM EST [facility] [address] [place], [place] [address] Mammography Report Signed Patient: Farrah Yancey MR#: [id number] 3 : 1970 Acct:[id number] Age/Sex: 54 / F ADM Date: 05/27/24 Loc: HO.MAMMO Attending Dr: Matt Wu MD Ordering Physician: Matt Wu MD Results: 1Negative Date of Service: 05/27/24 Follow Up: 1 Year From Orig ina Mammogram Procedure(s): MM tomosynthesis screening BI Accession Number(s): [id number] cc: Matt Wu MD EXAMINATION: MM SCREENING [...] DO Signed By: <Electronically signed by Jenni oWods DO in OV> 06/06/24 1626 DD/ 1345 TD/TT: 05/27/24 1408 Lawn Mower Mechanic: Procedure Note Donotuseinterpreter, Image - 06/06/2024 [facility] [address] [place], [place] [address] Mammography Report Signed Patient: David Yancey#: [id number] 3 : 1970Acct:[id number] Age/Sex: 54 / FADM Date: 05/27/24 Loc: HO.MAMMO Attending Dr: Matt Wu MD Ordering Physician: Matt Wu MDResults: 1Negative Date of Service: 05/27/24Follow Up: 1 Year From Orig inal Mammogram Procedure(s): MM tomosynthesis screening BI Accession Number(s): [id number] cc: Matt Wu MD EXAMINATION: MM SCREENING [...] 06/06/24 1626 DD/ 1345 TD/TT: 05/27/24 1408 Lawn Mower Mechanic: us Matt Wu MD IMG BI PROCEDURES Final Result * HIV-1/2 Antigen and Antibodies, Fourth Generation, with Reflexes (12/21/2023 12:36 PM EDT) HIV AB/AG Nonreactive Nonreactive [facility] Comment:HIV-1 p24 Ag and/or HIV-1/HIV-2 Ab not detected.A test result that is nonreactive does not exclude thepossibility of exposure to or infection with HIV-1 and/orHIV-2. Nonreactive results in this assay for individualswith prior exposure to HIV-1 and/or HIV-2 may be due toantigen and antibody levels that are below the limit ofdetection of this assay.The [employer] HIV Ag/Ab Combo assay result andsupplemental assay results should be interpreted inconjunction with the patient's clinical presentation,history and other laboratory results. If the results areinconsistent with clinical evidence, additional testing issuggested to confirm the result. Blood Venous blood specimen / Unknown 12/21/2023 12:36 PM EDT 12/21/2023 12:36 PM EDT us Matt Wu MD LAB BLOOD ORDERABLES Final Resul t [facility] [address] [place] [address] [phone] * Albumin, Random Urine W/Creatinine (09/09/2023 12:24 PM EDT) Creatinine, Urine 120.92 mg/dL [facility] Microalbumin Urine 6.0 mg/L [facility] Microalbum Creatinine Ratio Ur 4.9 <30 ug/mg cr [facility] Comment:Albumin/Creatinine R atio Reference Ranges: Normal: < 30 ug/mg creatinine Microalbuminuria: 30 - 300 ug/mg creatinineClinical Albuminuria: > 300 ug/mg creatinine Urine (Urine, Random) 09/09/2023 12:24 PM EDT 09/09/2023 2:10 PM EDT Matt Wu MD LAB URINE ORDERABLES Final Resul t Performing Organization Address City/[facility]/ZIP Co de Phone Number [facility] [address] [place] [phone] * Hepatitis Panel, General (05/26/2022 4:23 PM EST) Hepatitis A IgM Nonreactive Nonreactive [facility] Comment:IgM antibodies to TORRES V not detected; does not exclude earlyacute or recovered HAV infection. ~Hepatitis B Surface Antibody NONREACTIVE Nonreactive [facility] Comment:Nonreactive: < 8.00 mIU/mL Hepatitis B Core Antibody Nonreactive Nonreactive [facility] Hepatitis C Antibody Nonreactive Nonreactive [facility] Comment:Antibodies to HCV no t detected; does not exclude early acuteHCV infection. Hepatitis B Surface Antigen Negative Negative [facility] 05/26/2022 4:23 PM EST 05/26/2022 4:23 PM EST [facility] External Provider LAB BLO OD ORDERABLES Final Result Performing Organization Address [facility]/ZIP Co de Phone Number [facility] [address] [place] [phone] * Pap Smear (05/17/2021) Pap Negative for intraephithelial lesion or malignancy Negative for intraephithelial lesion or malignancy, Other HPV Not Detected Undetected, Indeterminate, Quantitative, Not Detected Historical Provider HEALTH MAINTENANCE Final Result from Last 3 Months or Most Recently Relevant to Health Maintenance Insurance [facility] C3 Care Teams Seat Maker Relationship Specialty Start Date End Date Name, MD Matt [address] [place] [phone] PCP - General Family Medicine 02/21/22 Ni Gandhi RN [address] [place] [phone] Registered Nurse Family Medicine 02/24/25 Radha Borden 02/24/25 Estephanie Tan Nursing Home ManagerClient Service Professional 11/24/23
--- OUTSIDE RECORDS SUMMARY | 2025-02-27 21:56 | XMS_ITS | Encounter Summary ---
Author Organization [employer] Address [address] [facility] [address] [place] [address] Care Team Providers Care C Python Developer Name Role Phone Name, Matt APPIAH Primary Care Provider [phone] Ni Gandhi RN Unavailable [phone] Radha Borden Unavailable Reason for Visit * Reason Onset Date Comments Care Coordination 11/24/2023 [id number] a ssessment Encounter Details Date Type Department Care Team ([facility] Contact Info) Description 11/24/2023 Telephone [facility] [address] [place] [address] Estephanie Tan RN Care Coordination ([id number] assessment) Social History Tobacco Use Types Packs/Day [...] Tan RN - 11/24/2023 2:31 PM EDT CM Estephanie Tan RN placed outbound call to patient with CHW Radha Borden translating for agreed upon time for initial assessment for enrollment into Adult Care Management Program. Patient's name, , and address were verified. Member is a 53 year old female, Lebanese speaking. Patient is alert andoriented x 3. [...] for her psoriasis. Reports she went to [facility] ER on 11/04/2023 for chest pain, dizziness, work up negative, ?Patient had follow up ED appointment with PCP11/06/2023. Patient stopped taking statin muscle discomfort. This was changed to Zetia 10mg daily. Also placed on Baclophen 10mg 2 times a day. Next PCP appointment is 12/18/2023. Care management program explained and contact information given. Patient verbalizes understanding, and able to repeat back to process description writer. A follow up call will be placed within 10 days, patient agrees with plan. MARIA ANTONIA Tan RN, provided notification to PCP . Name of patient's enrollment into C3 Complex [...] Description 03/14/2025 1:00 PM EDT Office Visit [facility] [address] [place] [phone] Name, MD Matt [address] [place] [phone] documented as of this encounter Visit Diagnoses Not on filedocumented in this encounter Additional Health Concerns Assessment Noted Time PHQ-9 Depression Total Score: 0 09/07/19 3:15 PM EDT documented as of this encounter Care Teams C Python Developer Relationship Specialty Start Date End Date NameMatt MD [address] [place] [address] PCP - General Family Medicine 02/21/22 Ni Gandhi RN [address] [place] [phone] Registered Nurse Family Medicine 02/24/25 Radha Borden 02/24/25 Estephanie Tan Surgical CoderInspector Multifocal Lens 11/24/23 documented as of this encounter
[2025-02-27 22:47] VITALS: BP 154/75; PULSE 66; RESP 17; TEMP 36.6; O2SAT 99
[2025-02-27] MEDS: Lidocaine HCl Viscous 2 % 15 ML SOLUTION PO (23:49)
[2025-02-27] MEDS: Magnesium Hydrox/Alum Hydrox 30 ML ORAL.SUSP PO (23:50)
[2025-02-28] MEDS: iohexoL 350 MG/ML 100 ML INFUS..BTL 85 ML IV (01:21)
[2025-02-28 04:29] VITALS: BP 145/77; PULSE 60; RESP 18; TEMP 36.6; O2SAT 95
== END 2025-02-28 04:31 | disposition home or self-care (01) ==
PROVIDERS: Registered Nurse Emergency; Emergency Provider Emergency Medicine; PCP Internal Medicine Geriatric Medicine
DX: R10.32 Left lower quadrant pain (principal); N93.8 Other specified abnormal uterine and vaginal bleeding; R51.9 Headache, unspecified; R11.0 Nausea; Z79.899 Other long term (current) drug therapy
CPT/HCPCS: 36415; 74177; 76830; 76856; 80053; 81001; 84702; 85025; 96361; 96374; 99284; 99285; J2405; Q9967

== ENCOUNTER → 2025-02-28 | Outpatient (BNV) | payer MEDICAID, SELFPAY | PROVIDERS: Emergency Provider Emergency Medicine; PCP Internal Medicine Geriatric Medicine; Visit Provider General Practice | DX: K40.90 Unilateral inguinal hernia, without obstruction or gangrene, not specified as recurrent (principal); N95.0 Postmenopausal bleeding | CPT/HCPCS: 74177; 76830; 76856 ==

== ENCOUNTER 2025-03-14 14:15 | Outpatient (REF) | payer MEDICAID, SELFPAY ==
--- OUTSIDE RECORDS SUMMARY | 2025-03-10 13:26 | XMS_ITS | Encounter Summary ---
Author Organization [facility] Address [address] [place] [address] Care Team Providers Care Ag Service Manager Name Role Phone Physician, Pcp Unknown Primary Care Provider Cyn vailable Encounter Details Date Type Department Care Team (Latest Contact Info) Description 03/10/2025 1:26 PM EDT - 03/10/2025 11:59 PM EDT Hospital Encounter [facility] [address] [place] [address] Arthrodesis status Discharge Disposition: Home or Self Care Social History Tobacco Use Types Packs/Day Years [...] on file documented as of this encounter Medications at Time of Discharge Advair HFA 230-21 mcg/actuation inhaler INHALE 2 PUFF BY MOUTH EVERY TWELVE HOURS 04/06/2024 albuterol HFA (PROAIR HFA ; PROVENTIL HFA ; VENTOLIN HFA) 90 mcg/actuation inhaler Inhale 2 Puffs into the lungs every 4 hours as needed for Wheezing or Shortness of Breath. 05/05/2019 aspirin 81 mg EC tablet Take 1 tablet (81 mg total) by mouth 1 (one) time each day. 05/05/2019 baclofen (LIORESAL) 10 mg tablet TAKE 1 TABLET BY MOUTH two (2) times a day 11/06/2023 bismuth subsalicylate 262 mg tablet Take 2 Tabs by mouth 4 times daily as needed for Other (diarrhea). 08/27/2019 blood sugar diagnostic (FreeStyle Lite Strips) test strip USE TO TEST FINGER STICK BLOOD SUGAR 2 TO 3 X DAILY DIRECTED 11/23/2019 blood-glucose meter kit For E11.49 to check blood sugar twice per day. Once prior to breakfast and once prior to dinner 09/05/2019 Breo Ellipta 200-25 mcg/dose inhaler Inhale 1 puff by mouth 1 (one) time each day. 05/06/2024 budesonide-formoter oL (SYMBICORT) 160-4.5 mcg/actuation inhaler INHALE DANDO DOS SOPLIDOS DOS VECES AL D A 01/31/2022 carvediloL (COREG) 6.25 mg tablet TAKE 1 TABLET BY MOUTH two (2) times a day WITH A MEAL cetirizine (ZyrTEC) 10 mg tablet Take 1 tablet (10 mg total) by mouth 1 (one) time each day in the morning. 12/31/2023 cholecalciferol (VITAMIN D-3) 50 mcg (2,000 unit) capsule Take 1 Cap by mouth daily. 06/29/2019 ciclopirox (LOPROX) 0.77 % cream Apply to big toes and left 3rd toe once daily x 1 month 09/23/2017 clindamycin (CLEOCIN T) 1 % lotion APLIQUE CAPA BEHZAD EL AREA AFECTADA TODOS LOS HMA 08/08/2022 clobetasoL 0.05 % shampoo Apply 1 Applicator topically every 48 hours. 09/09/2017 doxycycline (Vibramycin) 100 mg capsule Take 1 capsule (100 mg total) by mouth 2 (two) times a day for 10 days. Take with at least 8 ounces (large glass) of water, do not lie down for 30 minutes after. Administer 2 hours before or after multivitamins, antacids, or other products containing polyvalent cations (i.e., calcium, iron, magnesium, selenium, zinc). 20 capsule 03/06/2025 5 EASY COMFORT LANCETS MISC Apply 1 Each topically 3 times daily. 11/23/2019 esomeprazole (NexIUM) [address] capsule TAKE 1 CAPSULE BY MOUTH two (2) times a day 05/19/2024 fluconazole (DIFLUCAN) 150 mg tablet Take 1 tablet (150 mg total) by mouth. 09/08/2023 fluticasone propionate (FLONASE) 50 mcg/actuation nasal spray 2 Sprays by Nasal route daily. 01/20/2020 hydroCHLOROthiazide (HYDRODIURIL) 25 mg tablet Take 1 tablet (25 mg total) by mouth 1 (one) time each day. 12/05/2019 isopropyl alcohol-benzocaine 70-6 % pads, medicated USE 3 (THREE) TIMES A DAY 03/15/2018 ketoconazole (NIZORAL) 2 % shampoo APPLY TO THE AFFECTED AREA 2 X EACH WEEK. apply on scalp. Leave on for 5 minutes then rinse off 03/17/2024 loratadine (CLARITIN) 10 mg tablet Take 1 tablet (10 mg total) by mouth 1 (one) time each day. 01/20/2020 omeprazole (PriLOSEC) [address] capsule Take 1 Cap by mouth daily. 12/05/2019 oxyCODONE (ROXICODONE) 5 mg immediate release tablet Si-2 tabs PO Q12h prn severe pain Sent to pharmacy as: oxyCODONE HCl 5 MG Oral Tablet (ROXICODONE) Earliest Fill Date: 03/04/2024 Procto-Med HC 2.5 % rectal cream APPLY RECTALLY two (2) times a day FOR 2 WEEKS, burns FOR 2 WEEK THEN USE FOR 2 WEEK 10/27/2023 silver sulfADIAZINE (Silvadene) 1 % cream Apply topically 1 (one) time each day. 50 g 03/06/2025 Synjardy 12.5-500 mg tablet TAKE 1 TABLET BY MOUTH two (2) times a day (WITH BREAKFAST, AND WITH DINNER) 05/20/2024 tiZANidine (ZANAFLEX) 4 mg capsule Take 1 capsule (4 mg total) by mouth. zolpidem (AMBIEN) 10 mg tablet TAKE 1 TABLET BY MOUTH EVERY NIGHT AT BEDTIME FOR SLEEP 06/22/2024 documented as of this encounter Discharge Disposition Disposition Code Departure Means Destination Home or Self Care documented in this encounter Plan of Treatment Upcoming Encounters Date Type Department Care Team (Late st Contact Info) Description 03/21/2025 3:30 PM EDT Office Visit Orthopedic Surgery - [place] [address] [facility] [address] [place] [phone] Smooth Sharp, DPElizabeth [address] [facility] [address] [place] [address] documented as of this encounter Procedures Procedure Name Priority Date/Time Associated Diagnosis Comments XR CERVICAL SPINE 4-5 VIEWS Routine 03/10/2025 1:36 PM EDT Arthrodesis status documented in this encounter Results * XR Cervical Spine 4-5 Views (03/10/2025 1:36 PM EDT) Anatomical Region Laterality Modality Spine, C-spine Radiographic Romi ging 03/13/2025 7:53 AM EDT Impressions 03/13/2025 7:56 AM EDT Continued satisfactory appearance following anterior fusion at C4-7, unchanged in appearance since 04/22/2024. Straightening of the cervical lordosis consistent with surgery. Alignment is otherwise anatomic. There is no abnormal relative bony motion with flexion and extension. Range of motion is extremely limited. Code 68598 -------- FINAL REPORT -------- Dictated By: Rj Aguirre Dictated Date: 03/13/2025 07:53 ET Assigned Physician: Rj Aguirre Reviewed and Electronically Signed By: Rj Aguirre Signed Date: 03/13/2025 07:56 ET Workstation ID: [id number] Transcribed By: Self Edit Transcribed Date: 03/13/2025 07:53 ET Narrative 03/13/2025 7:56 AM EDT HISTORY: The patient is a 54-year-old female for follow-up of cervical spine surgery. FINDINGS: Lateral views of the cervical spine in neutral, flexion, and extension positions, along with an AP view, are obtained. The patient is seen to have undergone previous anterior fusion at the C4-5, C5-6 and C6-7 levels, as also seen on the prior study performed 04/22/2024. The surgical hardware remains well-positioned and intact. There is straightening of the cervical lordosis consistent with surgery. Alignment is otherwise anatomic. There is no abnormal relative bony motion with flexion and extension. Range of motion is extremely limited. There is no prevertebral soft tissue swelling. Procedure Note Rj Aguirre MD - 03/13/2025 HISTORY: The patient is a 54-year-old female for follow-up of cervicalspine surgery. FINDINGS: Lateral views of the cervical spine in neutral, flexion, andextension positions, along with an AP view, are obtained. The patient isseen to have undergone previous anterior fusion at the C4-5, C5-6 and C6-7levels, as also seen on the prior study performed 04/22/2024. The surgicalhardware remains well-positioned and intact. There is straightening of thecervical lordosis consistent with surgery. Alignment is otherwiseanatomic. There is no abnormal relative bony motion with flexion andextension. Range of motion is extremely limited. There is no prevertebralsoft tissue swelling. IMPRESSION: Continued satisfactory appearance following anterior fusion at C4-7,unchanged in appearance since 04/22/2024. Straightening of the cervicallordosis consistent with surgery. Alignment is otherwise anatomic. Thereis no abnormal relative bony motion with flexion and extension. Range ofmotion is extremely limited. Code 86682 -------- FINAL REPORT -------- Dictated By: Rj Aguirre Dictated Date: 03/13/2025 07:53 ET Assigned Physician: Rj Aguirre Reviewed and Electronically Signed By: Rj Aguirre Signed Date: 03/13/2025 07:56 ET Workstation ID: [id number] Transcribed By: Self Edit Transcribed Date: 03/13/2025 07:53 ET us Reyna Laboy MD IMG XR PROCEDURES Final Result documented in this encounter Visit Diagnoses Diagnosis Arthrodesis status documented in this encounter Care Teams Ag Service Manager Relationship Specialty Start Date End Date Physician, Pcp Unknown PCP - General 03/10/25 documented as of this encounter
--- OUTSIDE RECORDS SUMMARY | 2025-03-10 13:45 | XMS_ITS | Encounter Summary ---
Author Organization [facility] Address [address] [place] [address] Care Team Providers Care Communication Lecturer Name Role Phone Physician, Pcp Unknown Primary Care Provider Cyn vailable Reason for Referral * Imaging (Routine) - Authorized Specialty Diagnoses / Procedures Referred By Contac t Referred To Contact Diagnoses Chronic bilateral low back pain with right-sided sciatica Procedures MR Lumbar Spine wo Contrast Reyna Laboy MD [address] [place] [address] Phone: tel: fax: External Performed Referral ID Status Reason Start Date Expiration Date V isits Requested Visits Authorized [id number] Authorized 03/10/2025 03/10/2026 1 1 Reason for Visit * Reason Comments athrodesis status History of acdf 1 ye ar follow up with xrays Encounter Details Date Type Department Care Team (Late st Contact Info) Description 03/10/2025 1:45 PM EDT Office Visit Neurosurgery [place] [facility] [address] [facility] [address] [place] [phone] Reyna Laboy MD [address] [place] [address] Esophageal dysphagia (Primary Dx); Chronic bilateral low back pain with right-sided sciatica Social History Tobacco Use Types Packs/Day Years [...] as of this encounter Progress Notes * Reyna Laboy MD - 03/10/2025 2:30 PM EDTAssociated Problem(s): Chronic low back pain with sciatica Ms. Yancey is reporting years of worsening lower back pain particularly down her right leg for which she has had physical therapy but no surgery. With her profound pain, paresthesias and cramping, I will send her for an updated lumbar spine MRI. She is requesting an open scanner at [facility] and I will follow-up with her once the images are available with further treatment options. * Reyna Laboy MD - 03/10/2025 2:29 PM EDTAssociated Problem(s): Dysphagia Ms. Yancey reports some residual dysphagia with drinking water or when her head is tipped back such as leaning back on a pillow when in bed but overall, this sounds better than she was preoperatively. I reviewed the x-rays with her which show that there is been some subsidence of the graft with haloing in the bones C4 more than C5, the graft itself sits more posteriorly than desired but there is no gross movement on the dynamic x-rays. Since she is asymptomatic in terms of any signs of cord compression then, we will leave it alone. * Reyna Laboy MD - 03/10/2025 1:45 PM EDT NEUROSURGERY OFFICE VISIT Date of Visit: 03/10/2025 Referring Physician: No ref. provider found Primary Care Physician: Pcp Unknown Physician RE: Farrah Bc : 1970 Chief Complaint Patient presents with athrodesis status History of acdf 1 year follow up with xrays Dear Dr Armenta Unknown Physician This exam was performed in conjunction with [employer] services soldering machine feeder Isabela #[id number]. Farrah Yancey is a 54 y.o. female who presents to our office with x-rays for a 1 year follow-up after resection of anterior osteophytes at C4-5 for profound dysphagia which was followed by a discectomy and fusion to prevent further osteophyte formation. She denies significant neck pain, headaches or Lhermitte's phenomenon but, says there is some residual dysphagia particularly when her head is tipped up such as leaning back in bed or when drinking water. She is mainly concerned about ongoing lower back pain rating down her sacrum that she has had for afew years. She has known coccydynia and uses a donut but maintains it a feeling of pressure in thatregion. She also says that is very hard for her to turn at night as this triggers the pain in her lower back. She has had physical therapy for this in the past but feels that it continues to get worse over time. She describes tingling and cramping in both her hands and feet and feels a sensation ofelectricity running up from her her foot through the right leg to her lower back. Past Medical History: Diagnosis Date Allergic rhinitis 06/04/2017 DX:Allergic rhinitis Asthma 08/07/2011 DX:Asthma Kari esophagitis (CMS/HCC V24, CMS/HCC V28) 10/08/2018 DX:Kari esophagitis (HCC); COMMENT: F[place] [facility] [place] Carpal tunnel syndrome 12/25/2014 DX:Carpal tunnel syndrome; COMMENT: bilateral Fatty liver 06/04/2017 DX:Fatty liver Fibromyalgia DX:Fibromyalgia GERD (gastroesophageal reflux disease) 08/07/2011 DX:GERD (gastroesophageal reflux disease); COMMENT: H/o H.pylori x 3 Helicobacter pylori (H. pylori) infection 10/08/2018 DX:Helicobacter pylori (H. pylori) infection; COMMENT: F/u [place] [facility] [place] Hemorrhoids 06/04/2017 DX:Hemorrhoids; COMMENT: Internal & external Hyperlipidemia 08/07/2011 DX:Hyperlipidemia; COMMENT: IMO update Hypertension 08/07/2011 DX:Hypertension Insomnia 08/23/2015 DX:Insomnia Migraine DX:Migraine Old HI (myocardial infarction) 12/25/2014 DX:Old HI (myocardial infarction); COMMENT: Ej/ Dr Perez Osteoarthritis 12/25/2014 DX:Osteoarthritis; COMMENT: Hands, knees, spine Psoriasis DX:Psoriasis Tricuspid regurgitation 12/25/2014 DX:Tricuspid regurgitation; COMMENT: Mild tricuspid / mild pulmonic Type 2 diabetes mellitus with neurological manifestations, controlled ([facility]/HCC V24, CMS/HCC V28) 08/07/2011 DX:Type 2 diabetes mellitus with neurological manifestations, controlled ([facility]) Past Surgical History: Procedure Laterality Date APPENDECTOMY PROCEDURE: HISTORICAL APPENDECTOMY COLONOSCOPY 09/24/2015 PROCEDURE: HISTORICAL COLONOSCOPY; COMMENT: no path report received NECK SURGERY 08/25/2011 PROCEDURE: HISTORICAL NECK SURGERY; COMMENT: C5-6, C6-7 ACDF, Dr. Laboy NECK SURGERY 03/01/2024 PROCEDURE: HISTORICAL NECK SURGERY; COMMENT: C4-5 ACDF, Dr. Laboy Allergies Allergen Reactions Acetaminophen Other Reaction(s): PALPITATIONS, ITCH Acetaminophen-Codeine Other Reaction(s): FAST HEART RATE Levofloxacin Other Reaction(s): PALPITATIONS Atorvastatin Calcium tachycardia Bee Pollen Other reaction(s): round patches for ecg- skin red Clarithromycin Gabapentin Nausea/ dizziness Hydrocodone-Acetaminophen palpitations Ibuprofen GI side effect Morphine Nausea/ panic attack Pravastatin Sodium Headache, palpitations, SOB Rosuvastatin Calcium Myalgia Sodium Other sodium Terbinafine Rash Amoxicillin Other Reaction(s): ITCHY THROAT Current Outpatient Medications Medication Instructions Advair HFA 230-21 mcg/actuation inhaler INHALE 2 PUFF BY MOUTH EVERY TWELVE HOURS albuterol HFA (PROAIR HFA ; PROVENTIL HFA ; VENTOLIN HFA) 90 mcg/actuation inhaler Inhale 2 Puffs into the lungs every 4 hours as needed for Wheezing or Shortness of Breath. aspirin 81 mg EC tablet 1 tablet, Daily baclofen (LIORESAL) 10 mg tablet TAKE 1 TABLET BY MOUTH two (2) times a day bismuth subsalicylate 262 mg tablet Take 2 Tabs by mouth 4 times daily as needed for Other (diarrhea). blood sugar diagnostic (FreeStyle Lite Strips) test strip USE TO TEST FINGER STICK BLOOD SUGAR 2 TO3 X DAILY DIRECTED blood-glucose meter kit For E11.49 to check blood sugar twice per day. Once prior to breakfast and once prior to dinner Breo Ellipta 200-25 mcg/dose inhaler 1 puff, Daily budesonide-formoteroL (SYMBICORT) 160-4.5 mcg/actuation inhaler INHALE DANDO DOS SOPLIDOS DOS VECESAL D A carvediloL (COREG) 6.25 mg tablet TAKE 1 TABLET BY MOUTH two (2) times a day WITH A MEAL cetirizine (ZyrTEC) 10 mg tablet 1 tablet, Every morning cholecalciferol (VITAMIN D-3) 50 mcg (2,000 unit) capsule Take 1 Cap by mouth daily. ciclopirox (LOPROX) 0.77 % cream Apply to big toes and left 3rd toe once daily x 1 month clindamycin (CLEOCIN T) 1 % lotion APLIQUE CAPA BEHZAD EL AREA AFECTADA TODOS LOS HAM clobetasoL 0.05 % shampoo Apply 1 Applicator topically every 48 hours. doxycycline (VIBRAMYCIN) 100 mg, oral, 2 times daily, Take with at least 8 ounces (large glass) of water, do not lie down for 30 minutes after. Administer 2 hours before or after multivitamins, antacids, or other products containing polyvalent cations (i.e., calcium, iron, magnesium, selenium, zinc). EASY COMFORT LANCETS MIS Apply 1 Each topically 3 times daily. esomeprazole (NexIUM) [address] capsule TAKE 1 CAPSULE BY MOUTH two (2) times a day ezetimibe (ZETIA) 10 mg, oral, Daily fluconazole (DIFLUCAN) 150 mg fluticasone propionate (FLONASE) 50 mcg/actuation nasal spray 2 Sprays by Nasal route daily. hydroCHLOROthiazide (HYDRODIURIL) 25 mg tablet 1 tablet, Daily ipratropium (ATROVENT) 21 mcg (0.03 %) nasal spray 2 sprays, Each Nostril, Every 12 hours isopropyl alcohol-benzocaine 70-6 % pads, medicated USE 3 (THREE) TIMES A DAY ketoconazole (NIZORAL) 2 % shampoo APPLY TO THE AFFECTED AREA 2 X EACH WEEK. apply on scalp. Leave on for 5 minutes then rinse off loratadine (CLARITIN) 10 mg tablet 1 tablet, Daily omeprazole (PriLOSEC) [address] capsule Take 1 Cap by mouth daily. oxyCODONE (ROXICODONE) 5 mg immediate release tablet Si-2 tabs PO Q12h prn severe pain Sent to pharmacy as: oxyCODONE HCl 5 MG Oral Tablet (ROXICODONE) Earliest Fill Date: 03/04/2024 Procto-Med HC 2.5 % rectal cream APPLY RECTALLY two (2) times a day FOR 2 WEEKS, burns FOR 2 WEEK THEN USE FOR 2 WEEK silver sulfADIAZINE (Silvadene) 1 % cream Topical, Daily Synjardy 12.5-500 mg tablet TAKE 1 TABLET BY MOUTH two (2) times a day (WITH BREAKFAST, AND WITH DINNER) tiZANidine (ZANAFLEX) 4 mg zolpidem (AMBIEN) 10 mg tablet TAKE 1 TABLET BY MOUTH EVERY NIGHT AT BEDTIME FOR SLEEP Social History Tobacco Use Smoking status: Never Smokeless tobacco: Never Substance Use Topics Alcohol use: No Drug use: No Social History Social History Narrative Lives alone Family History Problem Relation Name Age of Onset Heart attack Maternal Grandmother 67.00 fatal Uterine cancer Maternal Grandmother Arthritis Father Diabetes,CAD, Hypertension Arthritis Mother CAD,Hypertension,Hyperlipidemia CABG Uncle 55.00 CAD in 40's Breast cancer Sister Ovarian cancer Neg Hx Colon cancer Neg Hx Prostate cancer Neg Hx Pancreatic cancer Neg Hx Physical Exam Pt is awake and alert. Speech and comprehension are intact. Respirations are unlabored, heart has regular rate. Anterior cervical incision is well-healed, cervical rotation is 60 degrees bilaterally.Motor exam reveals 5/5 strength to resistence bilaterally. Seated SLR is positive on the right at 90 degrees for sharp right lower back pain. Patient is ambulating independently. Imaging Review of the AP/lateral and flexion/extension x-rays at [facility] today shows her previous solid fusion from C5-C7. There appears to be some haloing and subsidence around the divergent stand-alone device at C4-5 which is recessed in the disc space with the C5 screw appearing too long. There is no gross instability on the dynamic pictures. Assessment/Plan Problem List Items Addressed This Visit Chronic low back pain with sciatica Ms. Yancey is reporting years of worsening lower back pain particularly down her right leg for which she has had physical therapy but no surgery. With her profound pain, paresthesias and cramping, I will send her for an updated lumbar spine MRI. She is requesting an open scanner at [facility] and I will follow-up with her once the images are available with further treatment options. Relevant Orders MR Lumbar Spine wo Contrast Dysphagia - Primary Ms. Yancey reports some residual dysphagia with drinking water or when her head is tipped back such as leaning back on a pillow when in bed but overall, this sounds better than she was preoperatively. I reviewed the x-rays with her which show that there is been some subsidence of the graft with haloing in the bones C4 more than C5, the graft itself sits more posteriorly than desired but there is no gross movement on the dynamic x-rays. Since she is asymptomatic in terms of any signs of cord compression then, we will leave it alone. Thank you for allowing us to care for your patient. Reyna Laboy MD on 03/10/2025 at 2:32 PM EDT CC: No ref. provider found Pcp Unknown Physician [facility] [place] documented in this encounter Plan of Treatment Upcoming Encounters Date Type Department Care Team (Late st Contact Info) Description 03/21/2025 3:30 PM EDT Office Visit Orthopedic Surgery - [place] [address] [phone] Smooth Sharp DPElizabeth [address] [address] Scheduled Orders Name Type Priority Associated Diagnoses Orde r Schedule MR Lumbar Spine wo Contrast Imaging Routine Chronic bilateral low back pain with right-sided sciatica Expected: 03/10/2025, Expires: 03/10/2026 documented as of this encounter Visit Diagnoses Diagnosis Esophageal dysphagia- Primary Dysphagia, pharyngoesophageal phase Chronic bilateral low back pain with right-sided sciatica documented in this encounter Care Teams Communication Lecturer Relationship Specialty Start Date End Date Physician, Pcp Unknown PCP - General 03/10/25 documented as of this encounter
--- OUTSIDE RECORDS SUMMARY | 2025-03-14 13:00 | XMS_ITS | Encounter Summary ---
Author Organization [employer] Address [address] [place] [address] Care Team Providers Care Piper Installer Name Role Phone Name, Matt APPIAH Primary Care Provider [phone] Ni Gandhi RN Unavailable [phone] Radha Borden Unavailable Reason for Visit * Reason Comments Follow-up Encounter Details Date Type Department Care Team (Latest Contact Info) Description 03/14/2025 1:00 PM EDT Office Visit [facility] MEDICINE [address] [place] [address] [phone] Name, MD [address] [place] [address] Type 2 diabetes mellitus with neurological manifestations, controlled (CMS/HCC) (Primary Dx); Lumbar back pain with radiculopathy affecting right lower extremity; Acute on chronic back pain; Vaccination refused by patient Social History Tobacco Use Types Packs/Day Years Used Date Smoking Tobacco: Never Smokeless Tobacco: Never Tobacco Cessation:Counseling Given: Not Answered Alcohol Use Standard Drinks/Week Comments Never 0 (1 standard drink = 0.6 oz pur e alcohol) Depression Answer Date Recorded Patient Health Questionnaire-9 Score 0 03/13/2025 Patient Health Questionnaire-9 Score 0 03/13/2025 Last PHQ-9: Questionnaire Data Not on file 0 03/13/2025 Housing Stability Answer Date Recorded What is [...] Date Recorded Patient Health Questionnaire-2 Score 0 03/13/2025 Internet Access Answer Date Recorded Internet Access [...] Sign Reading Time Taken Comments Blood Pressure 158/92 03/14/2025 1:12 PM EDT Pulse 64 03/14/2025 1:12 PM EDT Temperature 36.6 C (97.8 F) 03/14/2025 1:12 PM EDT Respiratory Rate 14 03/14/2025 1:12 PM EDT Oxygen Saturation 98% 03/14/2025 1:12 PM EDT Inhaled Oxygen Concentration - - Weight 95.3 kg (210 lb) 03/14/2025 1:12 PM EDT Height 160 cm (5' 3 ) 03/14/2025 1:12 PM EDT Body Mass Index 37.2 03/14/2025 1:12 PM EDT documented in this encounter Progress Notes * Matt Wu MD - 03/14/2025 1:00 PM EDT Subjective Patient ID: Farrah Yancey is a 54 y.o. female who presents for Follow-up. Patient comes for a follow-up visit. Blood sugar is well-controlled on current dose of Synjardy. She tells me she has an upcoming appointment for eye exam at [facility] and [facility], her main complaint today is low back pain with radiation to the right leg. This is a chronic problem for the patient.She is following with neurosurgery at [facility]. She has an upcoming appointment for MRI of the lumbar spine. She is also complaining of bilateral toe pain. She follows with podiatry. She recently had both great toenails removed. She is up-to-date with her tetanus vaccine. Review of Systems Constitutional: Negative for chills and fever. HENT: Negative for sore throat. Respiratory: Negative for cough, shortness of breath and wheezing. Cardiovascular: Negative for chest pain, palpitations and leg swelling. Gastrointestinal: Negative for abdominal pain. Musculoskeletal: Positive for back pain. Objective Vitals: 03/14/25 1312 BP: (!) 158/92 BP Location: Left arm Patient Position: Sitting BP Cuff Size: Large adult Pulse: 64 Resp: 14 Temp: 97.8 ??F (36.6 ??C) TempSrc: Temporal SpO2: 98% Weight: 210 lb (95.3 kg) Height: 5' 3 (1.6 m) Physical Exam Constitutional: Appearance: Normal appearance. Cardiovascular: Rate and Rhythm: Normal rate and regular rhythm. Heart sounds: No murmur heard. No gallop. Pulmonary: Effort: Pulmonary effort is normal. No respiratory distress. Breath sounds: Normal breath sounds. No wheezing. Musculoskeletal: Lumbar back: Spasms and tenderness present. No bony tenderness. Normal range of motion. Right lower leg: No edema. Left lower leg: No edema. Feet: Comments: Patient recently had both toenail surgically removed by podiatry. I will have the nurses cover the area with topical antibiotics and gauze. She has Silvadene at home prescribed by her trim machine adjuster that she is recommended to use and cover the great toes with gauze at home Neurological: General: No focal deficit present. Mental Status: She is alert. Motor: No weakness. Lab Results Component Value Date HGBA1C 6.7 (A) 03/14/2025 HGBA1C 6.7 (A) 08/15/2024 HGBA1C 6.6 (A) 03/22/2024 HGBA1C 6.5 (A) 07/08/2023 HGBA1C 6.7 (A) 01/05/2023 HGBA1C 7.6 (A) 09/09/2022 HGBA1C 7.3 (A) 06/04/2022 HGBA1C 6.9 (A) 03/24/2022 HGBA1C 7.1 (A) 02/21/2022 Assessment/Plan Diagnoses and all orders for this visit: Type 2 diabetes mellitus with neurological manifestations, controlled (CMS/HCC) Comments: Continue current meds. Avoid sweets and soda. Orders: - POCT Glucose - POCT Hgb A1c - Albumin, Random Urine W/Creatinine; Future Lumbar back pain with radiculopathy affecting right lower extremity Comments: I recommend a course of Celebrex. Gabapentin at bedtime. Continue follow-up with neurosurgery and follow their recommendations. Acute on chronic back pain Comments: See above Vaccination refused by patient Comments: She refused any vaccination today. Other orders - celecoxib (CeleBREX) 200 MG capsule; Take 1 capsule (200 mg) by mouth if needed in the morning and at bedtime for moderate pain for up to 20 days. - gabapentin (Neurontin) 100 MG capsule; Take 3 capsules (300 mg) by mouth at bedtime. Future Appointments Date Time Provider Department Center 06/14/2025 11:30 AM Matt Wu MD MEDICINE [facility] documented in this encounter Plan of Treatment Upcoming Encounters Date Type Department Care Team (Late st Contact Info) Description 06/14/2025 11:30 AM EST Office Visit [facility] [address] [place] [phone] Matt Wu MD [address] [place] [phone] Scheduled Orders Name Type Priority Associated Diagnoses Orde r Schedule Albumin, Random Urine W/Creatinine Lab Routine Type 2 diabetes mellitus with neurological manifestations, controlled (CMS/HCC) Expected: 03/14/2025 (Approximate), Expires: 03/14/2026 documented as of this encounter Procedures Procedure Name Priority Date/Time Associated Diagnosis Comments POCT GLYCATED HEMOGLOBIN, TOTAL Routine 03/14/2025 1:14 PM EDT Type 2 diabetes mellitus with neurological manifestations, controlled (CMS/[facility]) POCT GLUCOSE Routine 03/14/2025 1:13 PM EDT Type 2 diabetes mellitus with neurological manifestations, controlled ([facility]/HCC) documented in this encounter Results * (ABNORMAL) POCT Hgb A1c (03/14/2025 1:14 PM EDT) Hemoglobin A1C 6.7(A) 4.0 - 5.7 % QC Media Lot # [id number] Lot# Expiration Date 41,627 Blood 03/14/2025 1:14 PM EDT us Matt Wu MD POINT OF CARE TEST ENTER/EDIT OR DERABLES Final Result * POCT Glucose (03/14/2025 1:13 PM EDT) Glucose Blood, POC 133 60 - 200 mg/dL QC Media Lot # [id number] Lot# Expiration Date 31,126 Blood Capillary blood specimen / Unknown 03/14/2025 1:13 PM EDT us Matt Wu MD POINT OF CARE TEST ENTER/EDIT OR DERABLES Final Result documented in this encounter Visit Diagnoses Diagnosis Type 2 diabetes mellitus with neurological manifestations, controlled (HCC)- Primary Type II or unspecified type diabetes mellitus with neurological manifestations, not stated as uncontrolled Lumbar back pain with radiculopathy affecting right lower extremity Acute on chronic back pain Vaccination refused by patient documented in this encounter Additional Health Concerns Assessment Noted Time PHQ-9 Depression Total Score: 0 03/13/20 25 10:51 AM EDT documented as of this encounter Care Teams Piper Installer Relationship Specialty Start Date End Date Name, MD [address] [place] [address] PCP - General Family Medicine 02/21/22 Ni Gandhi RN [address] [place] [phone] Registered Nurse Family Medicine 02/24/25 Radha Borden 02/24/25 Estephanie Tan Engineering AssistantOffice Machine Servicer Apprentice 11/24/23 documented as of this encounter
--- OUTSIDE RECORDS SUMMARY | 2025-03-14 15:37 | XMS_ITS | Clinical Summary ---
Author Organization [employer] Address [address] [place] [address] Care Team Providers Care Gill Box Operator Name Role Phone Name, Matt APPIAH Primary Care Provider [phone] Ni Gandhi RN Unavailable Radha Borden Unavailable Allergies Active Allergy Reactions [...] FOR SLEEP 30 tablet 02/21/20 25 Active celecoxib (CeleBREX) 200 MG capsule Take 1 capsule (200 mg) by mouth if needed in the morning and at bedtime for moderate pain for up to 20 days. 40 capsule 2 03/14/20 25 025 Active gabapentin (Neurontin) 100 MG capsule Take 3 capsules (300 mg) by mouth at bedtime. 30 capsule 03/14/20 25 026 Active silver sulfADIAZINE (Silvadene) 1 % cream APPLY TO THE AFFECTED AREA ONCE DAILY Active zolpidem (Ambien) 10 MG tabletIndicatio ns:Insomnia, [...] surgeon is Dr Laboy at [facility] Class 2 obesity 11/06/2023 CLARA (generalized [...] placed for Ind Therapy and Psychiatrist at [facility], per her request. 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 Hemorrhoids 06/04/2017 Overview (11/06/2023): Internal & external Nonalcoholic steatohepatitis (HURD) 06/04/2017 Insomnia 08/23/2015 Carpal tunnel syndrome 12/25/2014 Overview (01/01/2023): Bilateral - negative EMG at [place] 2014 Osteoarthritis 12/25/2014 Overview (01/01/2023): Hands, knees, spine Tricuspid regurgitation 12/25/2014 Overview (01/01/2023): Mild tricuspid / mild pulmonic Fibromyalgia 10/16/2014 Psoriasis 10/16/2014 Psoriatic arthritis (CMS/HCC) 05/25/2012 Depressive disorder 12/08/2011 Migraine 12/08/2011 Degeneration of intervertebral disc 12/03/2011 Severe obesity (CMS/HCC) 12/03/2011 Asthma 08/07/2011 Hypertension 08/07/2011 Overview (01/01/2023): [...] reflux disease) 2 Overview (01/01/2023): [place] [facility] [place] H.pylori x 3 Resolved Problems Problem Noted Date Diagnosed Date Resolved Date Rash 08/04/2024 08/15/2024 Assessment & Plan (08/04/2024 4:19 PM EST): Blood work ordered today, patient will be contacted with results I will refer her to dermatology Helicobacter pylori gastritis 10/29/2018 08/15/2024 Helicobacter pylori (H. 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/HCC) 06/25/2018 03/0 08/2024 Foot callus 04/13/2018 07/08/2023 Onychomycosis 03/23/2018 07/08/2023 Old CA (myocardial infarction) 12/25/2014 11/06/2023 Overview (01/01/2023): 1998/ Dr Perez 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 07/08/2023 Other psoriasis and similar disorders 12/03/2011 07/08/2023 Encounters Date Type Department Care Team Description 03/14/2025 1:00 PM EDT Office Visit [facility] MEDICINE [address] [place] [phone] Name, MD Matt Type 2 diabetes mellitus with neurological manifestations, controlled ([facility]) (Primary Dx); Lumbar back pain with radiculopathy affecting right lower extremity; Acute on chronic back pain; Vaccination refused by patient 03/14/2025 Travel 03/13/2025 Patient Outreach [facility] MEDICINE [address] [place] [phone] Matt Wu MD Care Management (C3- initial assessment/ enrollment) 03/02/2025 Patient Outreach [address] [phone] Matt Wu MD Care Coordination (CM/CHW outreach) 03/02/2025 Patient Outreach [address] [phone] Matt Wu MD 02/27/2025 Patient Outreach [address] [address] Matt Wu MD Care Coordination (CM/CHW outreach) 02/24/2025 Patient Outreach [address] [address] Matt Wu MD Care Coordination (CHW chart review) 02/24/2025 Patient Outreach [address] [address] Matt Wu MD Care Management ([facility]- chart review) 02/24/2025 Patient Outreach [address] [address] Matt Wu MD 02/23/2025 Orders Only GENERIC EXTERNAL DATA DEPARTMENT Provider, Generic External Data 02/20/[address] [facility] MEDICINE [address] [place] [phone] Matt Wu MD Insomnia, unspecified type 02/03/[address] [facility] MEDICINE [address] [place] [phone] Mica Liz MD Essential hypertension 01/20/2025 Refill C MEDICINE [address] [place] [phone] Matt Wu MD Insomnia, unspecified type 01/05/[address] [facility] MEDICINE [address] [place] [phone] Matt Wu MD Hypertension, unspecified type 12/21/[address] [facility] MEDICINE [address] [place] [phone] Matt Wu MD Insomnia, unspecified type from Last 3 Months Immunizations Immunization Administration [...] Mass Index 37.2 03/14/2025 1:12 PM EDT Plan of Treatment Upcoming Encounters Date Type Department Care Team (Late st Contact Info) Description 06/14/2025 11:30 AM EST Office Visit [facility] MEDICINE [address] [place] [address] Name, MD Matt [address] [place] [address] Health Maintenance Due Date Last Done Comments CT Colonography 1970 Colonoscopy 1970 Colorectal Cancer Screening 1970 FIT DNA/Cologuard 1970 FIT 1970 FOBT 1970 Sigmoidoscopy 1970 Eye Exam 1980 Hepatitis A Vaccines (1 of 2 - Risk 2-dose series) 1989 Pneumococcal Vaccine: 50+ Years (1 of 2 - PCV) 1989 Zoster Vaccines (1 of 2) 2020 Diabetes: Urine Protein Screening 09/08/2024 09/09/2023, 07/08/2023, 03/24/2022 SDOH Screening 12/17/2024 12/18/2023 COVID-19 Vaccine ( season) 2025 01/18/2021, 12/21/2020 Influenza Vaccine (#1) 2025 Diabetes: Foot Exam 03/22/2025 03/22/2024, 03/22/2024, 03/22/2024, Additional history exists Mammogram 05/27/2025 05/27/2024, 04/16, 05/04/2023, Additional history exists Diabetes: Hemoglobin A1C 09/11/2025 025, 08/15/2024, 03/22/2024, Additional history exists Lipid Panel 09/19/2025 09/19/2024, 07/17, 06/17/2024, Additional history exists Disability Screening 11/30/2025 11/30/2024 Alcohol/Substance Use Screening 03/13/2026 03/13/2025 Depression Screening 03/13/2026 03/13/2025, 03/13/20 25 Tobacco Screening 03/14/2026 03/14/2025 Cervical Cancer Screening 05/17/2026 HPV/Cotest 05/17/2026 05/17/2021 [...] diabetes mellitus with neurological manifestations, controlled ([facility]) POCT GLUCOSE Routine 03/14/2025 1:13 PM EDT Type 2 diabetes mellitus with neurological manifestations, controlled (CMS/HCC) CT ABDOMEN PELVIS W CONTRAST Routine 02/28/2025 4:04 AM EDT US PELVIS TRANSVAGINAL Routine 02/28/2025 2:50 AM EDT MAGNESIUM Routine 02/23/2025 4:17 PM EDT COMPREHENSIVE METABOLIC PANEL Routine 02/23/2025 4:17 PM EDT CBC WITH AUTO DIFFERENTIAL Routine 02/23/2025 4:17 PM EDT LIPID PANEL, STANDARD Routine 09/19/2024 2:03 PM EDT BI MAMMOGRAM SCREENING TOMOSYNTHESIS BILATERAL Routine 05/27/2024 [...] Relevant to Health Maintenance Results * (ABNORMAL) POCT Hgb A1c (03/14/2025 1:14 PM EDT) Hemoglobin A1C 6.7(A) 4.0 - 5.7 % QC Media Lot # [id number] Lot# Expiration Date [id number] Blood 03/14/2025 1:14 PM EDT us Matt Name MD POINT OF CARE TEST ENTER/EDIT OR DERABLES Final Result * POCT Glucose (03/14/2025 1:13 PM EDT) Glucose Blood, POC 133 60 - 200 mg/dL QC Media Lot # [id number] Lot# Expiration Date Blood Capillary blood specimen / Unknown 03/14/2025 1:13 PM EDT Matt Wu MD POINT OF CARE TEST ENTER/EDIT OR DERABLES Final Result * CT Abdomen Pelvis w/ Contrast (02/28/2025 4:04 AM EDT) Anatomical Region Laterality Modality Body, Pelvis, Abdomen Computed T omography 02/28/2025 4:04 AM EDT Narrative 02/28/2025 4:06 AM EDT [place] [address] [address] Scan Report Signed Patient: Farrah Yancey MR#: [id number] 3 : 1970 Acct:[id number] Age/Sex: 54 / F ADM Date: 02/27/25 Loc: .ED Attending Dr: Ordering Physician: Hiren Villegas PA-C Date of Service: 02/28/25 Procedure(s): CT abdomen pelvis w IV con Accession Number(s): [id number] cc: Hiren Villegas PA-C; Name,Matt APPIAH Report Number: [id number]: Total DLP = 712.00 mGy-cm Reason for Exam: RLQ Tenderness; R Flank Pain CLINICAL HISTORY: RLQ Tenderness; R Flank Pain CT abdomen and pelvis with contrast Comparison: CT/SR - CT ABDOMEN PELVIS WO IV CON - 09/14/24 14:22 EDT Findings: The lung bases are clear. Liver is of low-attenuation, hepatic steatosis. No focal hepatic lesion. Gallbladder, pancreas, spleen and adrenal glands are within normal limits. Kidneys are non hydronephrotic and enhance symmetrically. No bowel obstruction, pneumoperitoneum, or pneumatosis. Visualized appendix is unremarkable. The tip of the appendix extends to a fat containing right inguinal hernia. Urinary bladder and pelvic structures are within normal limits. The bones are intact. IMPRESSION: No acute findings. This document has been electronically signed by: Oscar Jones MD, PHD on 02/28/2025 04:04:06 Dictated By: Oscar Jones MD Signed By: <Electronically signed by Oscar Jones MD in OV> 02/28/25404 DD/ 3 TD/TT: 02/28/25403 Hansard Reporter: Procedure Note Donotuseinterpreter, Image - 02/28/[address] [place] [address] [address] Scan Report Signed Patient: David Yancey#: [id number] 3 : 1970Acct:[id number] Age/Sex: 54 / FADM Date: 02/27/25 Loc: HO.ED Attending Dr: Ordering Physician: Hiren Villegas PA-C Date of Service: 02/28/25 Procedure(s): CT abdomen pelvis w IV con Accession Number(s): [id number] cc: Hiren Villegas PA-C; Name,Matt APPIAH Report Number: [id number]: Total DLP = 712.00 mGy-cm Reason for Exam: RLQ Tenderness; R Flank Pain CLINICAL HISTORY: RLQ Tenderness; R Flank Pain CT abdomen and pelvis with contrast Comparison: CT/SR - CT ABDOMEN PELVIS WO IV CON - 09/14/24 14:22 EDT Findings: The lung bases are clear. Liver is of low-attenuation, hepatic steatosis. No focal hepatic lesion. Gallbladder, pancreas, spleen and adrenal glands are within normal limits. Kidneys are non hydronephrotic and enhance symmetrically. No bowel obstruction, pneumoperitoneum, or pneumatosis. Visualized appendix is unremarkable. The tip of the appendix extends to a fat containing right inguinal hernia. Urinary bladder and pelvic structures are within normal limits. The bones are intact. IMPRESSION: No acute findings. This document has been electronically signed by: Oscar Jones MD, PHD on 02/28/2025 04:04:06 Dictated By: Oscar Jones MD Signed By: <Electronically signed by Oscar Jones MD in OV> 02/28/25404 DD/ 3 TD/TT: 02/28/25403 Hansard Reporter: us [facility] External Provider IMG CT PROCEDURES Edited Result - Final * US Pelvis Transvaginal (02/28/2025 2:50 AM EDT) Anatomical Region Laterality Modality Pelvis Ultrasound 02/28/2025 2:50 AM EDT Narrative 02/28/2025 2:51 AM EDT [address] [address] Ultrasound Report Signed Patient: Farrah Yancey MR#: [id number] 3 : 1970 Acct:[id number] Age/Sex: 54 / F ADM Date: 02/27/25 Loc: .ED Attending Dr: Ordering Physician: Hiren Villegas PA-C Date of Service: 02/28/25 Procedure(s): US pelvic and transvaginal Accession Number(s): [id number] cc: Hiren Villegas PA-C; Name,Matt APPIAH Reason for Exam: RLQ/suprapubic tender; Post-menopausal bleeding CLINICAL HISTORY: RLQ suprapubic tender; Post-menopausal bleeding US pelvis transabdominal and transvaginal Comparison: US - US PELVIC AND TRANSVAGINAL - 11/24/24 15:15 EDT Findings: Transabdominal scanning performed for overall anatomy. Transvaginal scanning performed for additional detail. Retroflexed uterus is 8.8 cm length. Normal myometrium. Small probable fibroid measures 1.3 cm Endometrium 3 mm thickness. No lesions. Right ovary 1.8 x 1.6 x 1.4 cm. Dominant follicle noted in the right ovary. Left ovary 1.9 x 1.3 x 1.6 cm. No free fluid. IMPRESSION: 1. Unremarkable pelvic ultrasound This document has been electronically signed by: Oscar Jones MD, PHD on 02/28/2025 02:50:23 Dictated By: Oscar Jones MD Signed By: <Electronically signed by Oscar Jones MD in OV> 02/28/25 025 DD/ 9 TD/TT: 02/28/25249 Hansard Reporter: Procedure Note Donotuseinterpreter, Image - 02/28/[address] [address] Ultrasound Report Signed Patient: David Yancey#: [id number] 3 : 1970Acct:[id number] Age/Sex: 54 / FADM Date: 02/27/25 Loc: HO.ED Attending Dr: Ordering Physician: Hiren Villegas PA-C Date of Service: 02/28/25 Procedure(s): US pelvic and transvaginal Accession Number(s): [id number] cc: Hiren Villegas PA-C; Name,Matt APPIAH Reason for Exam: RLQ/suprapubic tender; Post-menopausal bleeding CLINICAL HISTORY: RLQ suprapubic tender; Post-menopausal bleeding US pelvis transabdominal and transvaginal Comparison: US - US PELVIC AND TRANSVAGINAL - 11/24/24 15:15 EDT Findings: Transabdominal scanning performed for overall anatomy. Transvaginal scanning performed for additional detail. Retroflexed uterus is 8.8 cm length. Normal myometrium. Small probable fibroid measures 1.3 cm Endometrium 3 mm thickness. No lesions. Right ovary 1.8 x 1.6 x 1.4 cm. Dominant follicle noted in the rightovary. Left ovary 1.9 x 1.3 x 1.6 cm. No free fluid. IMPRESSION: 1. Unremarkable pelvic ultrasound This document has been electronically signed by: Oscar Jones MD, PHD on 02/28/2025 02:50:23 Dictated By: Oscar Jones MD Signed By: <Electronically signed by Oscar Jones MD in OV> 02/28/25250 DD/ 9 TD/TT: 02/28/25249 Hansard Reporter: [facility] External Provider IMG US PROCEDURES Final Result * (ABNORMAL) CBC auto differential (02/23/2025 4:17 PM EDT) White Blood Count 9.4 4.8 - 10.8 X10*3/uL [facility] Red Blood Count 5.10 4.20 - 5.50 X10*6/uL [facility] Hemoglobin 13.5 12.0 - 16.0 g/dl [facility] Hematocrit 42.5 37.0 - 47.0 % [facility] Mean Corpuscular Volume 83.3 80.0 - 98.0 fL [facility] Mean Corpuscular Hemoglobin 26.5(L) 27.0 - 33.0 pg [facility] Mean Corpuscular HGB Conc 31.8 31.0 - 35.0 g/dl [facility] Red Cell Distribution Width 14.6 11.0 - 16.0 % [facility] Platelet Count 291 160 - 400 X10*3/uL [facility] Mean Platelet Volume 9.8 9.4 - 12.3 fL [facility] Neutrophils Percent Auto 58.1 45 - 73 % [facility] Imm Gran Pct Auto 0.2 0.0 - 0.4 % [facility] Lymphocytes Percent Auto 31.0 20 - 40 % [facility] Monocytes Percent Auto 8.4 2 - 11 % [facility] Eosinophils Percent Auto 1.7 0 - 4 % [facility] Basophils Percent Auto 0.6 0 - 2 % [facility] NRBC Pct Auto 0.0 0.0 - 0.2 /100WBC [facility] Neutrophils Absolute Auto 5.4 2.0 - 8.3 x10*3/uL [facility] Imm Gran Abs Auto 0.02 0.00 - 0.03 X10*3/uL [facility] Lymphocytes Absolute Auto 2.9 1.2 - 4.9 X10*3/uL [facility] Monocytes Absolute Auto 0.8 0.1 - 1.2 X10*3/uL [facility] Eosinophils Absolute Auto 0.2 0.0 - 0.4 X10*3/uL [facility] Basophils Absolute Auto 0.1 0.0 - 0.2 X10*3/uL [facility] NRBC Abs Auto 0.000 0.0 - 0.012 X10*3/uL [facility] 02/23/2025 4:17 PM EDT 02/23/2025 4:21 PM EDT Generic External Data Provider LAB BLOOD ORDERAB LES Final Result Performing Organization Address City/[facility]/ZIP Co de Phone Number [facility] [address] [place] [phone] * Magnesium (02/23/2025 4:17 PM EDT) Magnesium 1.9 1.6 - 2.6 mg/dL [facility] 02/23/2025 4:17 PM EDT 02/23/2025 4:21 PM EDT Generic External Data Provider LAB BLOOD ORDERAB LES Final Result Performing Organization Address [facility] de Phone Number [facility] [address] [place] [phone] * (ABNORMAL) Comprehensive Metabolic Panel (02/23/2025 4:17 PM EDT) Sodium 145 135 - 145 mmol/L [facility] Potassium 3.7 3.3 - 5.1 mmol/L [facility] Chloride 109(H) 96 - 108 mmol/L [facility] Carbon Dioxide 26 22 - 29 mmol/L [facility] Anion Gap 14 12 - 20 [facility] Urea Nitrogen (BUN) 15 9 - 16 mg/dL [facility] Creatinine, Serum 0.82 0.5 - 1.4 mg/dL [facility] Creatinine Clr Calc Pharmacy 103.0 [facility] Comment:Provided height and weight: 175.26 cm,108.862 kg.eGFR (calculated from the MDRD study equation) and eCrCl(calculated from the Cockcroft-Gault equation) are based ondifferent parameters and may not yield comparable results.If eCrCl result is absurd, please check patient'sheight/weight. Estimated Glomerular Filt Rate >60 [facility] Comment:Chronic Kidney Disea se: Estimated GFR < 60 mL/min/1.25v4Gdpslq Kidney Disease: Estimated GFR < 15 mL/min/1.73m2 Glucose 121(H) 60 - 115 mg/dL [facility] Calcium 8.8 8.4 - 10.2 mg/dL [facility] Bilirubin, Total 0.9 0.0 - 1.0 mg/dL [facility] Aspartate Amino Transferase 43(H) 5 - 31 U/L [facility] Alanine Aminotransferase 43(H) 0 - 31 U/L [facility] Total Protein 7.1 6.5 - 8.0 g/dL [facility] Albumin Level 4.2 3.5 - 5.0 g/dL [facility] Alkaline Phosphatase 110 39 - 117 U/L [facility] 02/23/2025 4:17 PM EDT 02/23/2025 4:21 PM EDT us Generic External Data Provider LAB BLOOD ORDERAB LES Final Result [facility] [address] [place] [phone] * (ABNORMAL) Lipid Panel, Standard (09/19/2024 2:03 PM EDT) Triglycerides 129 <150 mg/dL [facility] Comment:Desirable Triglyceri de: less than 150 mg/dLBorderline High Triglyceride 150-199 mg/dLHigh Triglyceride: 200-499 mg/dLVery High Triglyceride: greater than or equal to 5OO mg/dL Cholesterol 98 <200 mg/dL [facility] Comment:Desirable Cholestero l: less than 200 mg/dLBorderline High Cholesterol: 200-239 mg/dLHigh Cholesterol: greater than 239 mg/dL LDL Cholesterol Calculated 34 <100 mg/dL [facility] Comment:Desirable LDL: less than 100 mg/dLNear Optimal/Above Optimal LDL: 110- 129 mg/dLBorderline High LDL: 130-159 mg/dLHigh LDL: 160-189 mg/dLVery High LDL: greater than or equal to 190 mg/dL HDL Cholesterol 39(L) >40 mg/dL [facility] Comment:Desirable HDL: great er than 40 mg/dL Note: This HDL assay may give artificially low results in patients with liver disease. 09/19/2024 2:03 PM EDT 09/19/2024 2:03 PM EDT us Generic External Data Provider LAB BLOOD ORDERAB LES Final Result [facility] [address] [place] [phone] * BI Mammogram Screening Tomosynthesis Bilateral (05/27/2024 1:45 PM EST) Anatomical Region Laterality Modality Breast Bilateral Mammography 05/27/2024 1:45 PM EST Narrative 06/06/2024 4:29 PM EST [facility] [address] [place] [address] Mammography Report Signed Patient: Farrah Yancey MR#: [id number] 3 : 1970 Acct:[id number] Age/Sex: 54 / F ADM Date: 05/27/24 Loc: HO.MAMMO Attending Dr: Matt Wu MD Ordering Physician: Matt Wu MD Results: 1Negative Date of Service: 05/27/24 Follow Up: 1 Year From Orig inal Mammogram Procedure(s): MM tomosynthesis screening BI Accession Number(s): [id number] cc: Matt Wu MD EXAMINATION: MM SCREENING [...] 06/06/24 1626 DD/ 1345 TD/TT: 05/27/24 1408 Hansard Reporter: Procedure Note Donotuseinterpreter, Image - [facility]06[facility] [address] [place] [address] Mammography Report Signed Patient: David Yancey#: [id number] 3 : 1970Acct:[id number] Age/Sex: 54 / FADM Date: 05/27/24 Loc: HO.MAMMO Attending Dr: Matt Wu MD Ordering Physician: Matt Wu MDResults: 1Negative Date of Service: 05/27/24Follow Up: 1 Year From Orig inal Mammogram Procedure(s): MM tomosynthesis screening BI Accession Number(s): [id number] cc: Matt Wu MD EXAMINATION: MM SCREENING [...] 06/06/24 1626 DD/ 1345 TD/TT: 05/27/24 1408 Hansard Reporter: us Matt Wu MD IMG BI PROCEDURES Final Result * HIV-1/2 Antigen and Antibodies, Fourth Generation, with Reflexes (12/21/2023 12:36 PM EDT) HIV AB/AG Nonreactive Nonreactive [facility] Comment:HIV-1 p24 Ag and/or HIV-1/HIV-2 Ab not detected.A test result that is nonreactive does not exclude thepossibility of exposure to or infection with HIV-1 and/orHIV-2. Nonreactive results in this assay for individualswith prior exposure to HIV-1 and/or HIV-2 may be due toantigen and antibody levels that are below the limit ofdetection of this assay.The [employer] HIV Ag/Ab Combo assay result andsupplemental assay results should be interpreted inconjunction with the patient's clinical presentation,history and other laboratory results. If the results areinconsistent with clinical evidence, additional testing issuggested to confirm the result. Blood Venous blood specimen / Unknown 12/21/2023 12:36 PM EDT 12/21/2023 12:36 PM EDT Matt Wu MD LAB BLOOD ORDERABLES Final Resul t [facility] [address] [place] [phone] * Albumin, Random Urine W/Creatinine (09/09/2023 12:24 PM EDT) Creatinine, Urine 120.92 mg/dL [facility] Microalbumin Urine 6.0 mg/L [facility] Microalbum Creatinine Ratio Ur 4.9 <30 ug/mg cr [facility] Comment:Albumin/Creatinine R atio Reference Ranges: Normal: < 30 ug/mg creatinine Microalbuminuria: 30 - 300 ug/mg creatinineClinical Albuminuria: > 300 ug/mg creatinine Urine (Urine, Random) 09/09/2023 12:24 PM EDT 09/09/2023 2:10 PM EDT Matt Wu MD LAB URINE ORDERABLES Final Resul t Performing Organization Address City/[facility]/ZIP Co de Phone Number [facility] [address] [place] [phone] * Hepatitis Panel, General (05/26/2022 4:23 PM EST) Hepatitis A IgM Nonreactive Nonreactive [facility] Comment:IgM antibodies to TORRES V not detected; does not exclude earlyacute or recovered HAV infection. ~Hepatitis B Surface Antibody NONREACTIVE Nonreactive [facility] Comment:Nonreactive: < 8.00 mIU/mL Hepatitis B Core Antibody Nonreactive Nonreactive [facility] Hepatitis C Antibody Nonreactive Nonreactive [facility] Comment:Antibodies to HCV no t detected; does not exclude early acuteHCV infection. Hepatitis B Surface Antigen Negative Negative [facility] 05/26/2022 4:23 PM EST 05/26/2022 4:23 PM EST [facility] External Provider LAB BLO OD ORDERABLES Final Result Performing Organization Address City/[facility]/ZIP Co de Phone Number [facility] [address] [place] [phone] * Pap Smear (05/17/2021) Pap Negative for intraephithelial lesion or malignancy Negative for intraephithelial lesion or malignancy, Other HPV Not Detected Undetected, Indeterminate, Quantitative, Not Detected Historical Provider HEALTH MAINTENANCE Final Result from Last 3 Months or Most Recently Relevant to Health Maintenance Insurance [facility] C3 Care Teams Gill Box Operator Relationship Specialty Start Date End Date Name, MD Matt [address] [place] [address] PCP - General Family Medicine 02/21/22 Ni Gandhi, SEBASTIAN [address] [place] [phone] Registered Nurse Family Medicine 02/24/25 Radha Borden 02/24/25 Estephanie Tan Secretary ReceptionistCommunity Relations Director 11/24/23
--- OUTSIDE RECORDS SUMMARY | 2025-03-14 15:37 | XMS_ITS | Encounter Summary ---
Author Organization [employer] Address 75 [facility] 7t [place] [address] Care Team Providers Care Engineering Lab Technician Name Role Phone Name, Matt APPIAH Primary Care Provider [phone] Ni Gandhi RN Unavailable [phone] Radha Borden Unavailable Reason for Visit * Reason Onset Date Comments Med Refill 01/21/2024 Encounter Details Date Type Department Care Team ([facility] st Contact Info) Description 01/21/2024 Telephone [facility] MEDICINE [address] [place] [address] Name, MD Matt [address] [place] [address] Med Refill Social History Tobacco Use Types [...] 10 MG tablet To be sent to: [facility] - [place], [place] - [phone] - [place], [place] - [phone] documented in this encounter Plan of Treatment Upcoming Encounters Date Type Department Care Team (Late st Contact Info) Description 06/14/2025 11:30 AM EST Office Visit [facility] MEDICINE [address] [place] [address] Name, MD Matt [address] [place] [address] documented as of this encounter Visit Diagnoses Not on filedocumented in this encounter Additional Health Concerns Assessment Noted Time PHQ-9 Depression Total Score: 0 09/07/19 24 3:15 PM EDT documented as of this encounter Care Teams Engineering Lab Technician Relationship Specialty Start Date End Date Name, MD Matt [address] [place] [address] PCP - General Family Medicine 02/21/22 Ni Gandhi RN [address] [place] [address] Registered Nurse Family Medicine 02/24/25 Radha Borden 02/24/25 Estephanie Tan Editor House OrganAssisted Living Executive Director 11/24/23 documented as of this encounter
--- OUTSIDE RECORDS SUMMARY | 2025-03-14 15:37 | XMS_ITS ---
Author Organization [employer] Address 75 [facility] 7t [place] [address] Care Team Providers Care Hotel Maid Name Role Phone Name, Matt APPIAH Primary Care Provider [phone] Ni Gandhi RN Unavailable [phone] Radha Borden Unavailable CM Complex Status:Outreach In Progress (Enrolling) Start date:02/24/2025 Enrollment reason:ADT Feed Overview ADT- [facility] 02/23/25 Case Team Name Relationship Phone Ni Gandhi RN(Responsible Staff) Registered Nurse [phone] Continued Care and Services Coordination
--- OUTSIDE RECORDS SUMMARY | 2025-03-14 15:37 | XMS_ITS ---
Author Organization [employer] Address 75 [facility] 7t [place] [address] Care Team Providers Care Client Solutions Director Name Role Phone Name, Matt APPIAH Primary Care Provider [phone] Ni Gandhi RN Unavailable [phone] Radha Borden Unavailable CHW Complex Status:Outreach In Progress (Enrolling) Start date:02/24/2025 Enrollment reason:ADT Feed Overview ADT- [facility] [place] 02/23/25. Please outreach for enrollment. Case Team Name Relationship Phone Radha Borden(Responsible Staff) [phone] Continued Care and Services Coordination
--- OUTSIDE RECORDS SUMMARY | 2025-03-14 15:37 | XMS_ITS | Clinical Summary ---
Author Organization 175 [facility] Address [address] [place] [address] Phone Care Team Providers Care Manager Warehouse Name Role Phone Physician, Pcp Unknown Primary Care Provider Cyn vailable Allergies Active Allergy Reactions Criticality Noted Date [...] Headache, palpitations, SOB Rosuvastatin Calcium 08/07/2011 Myalgia Sodium Other 03/10/2025 sodium Terbinafine Rash 10/19/2015 Medications ciclopirox (LOPROX) 0.77 % cream Apply to big toes and left 3rd toe once daily x 1 month 09/24/19 18 Active clobetasoL 0.05 % shampoo Apply 1 Applicator topically every 48 hours. 09/10/19 18 Active cholecalciferol (VITAMIN D-3) 50 mcg (2,000 unit) capsule Take 1 Cap by mouth daily. 06/29/19 20 Active fluticasone propionate (FLONASE) 50 mcg/actuation nasal spray 2 Sprays by Nasal route daily. 01/20/20 Active hydroCHLOROthiazi de (HYDRODIURIL) 25 mg tablet Take 1 tablet (25 mg total) by mouth 1 (one) time each day. 12/05/19 Active omeprazole (PriLOSEC) [address] capsule Take 1 Cap by mouth daily. 12/05/19 Active loratadine (CLARITIN) 10 mg tablet Take 1 tablet (10 mg total) by mouth 1 (one) time each day. 01/20/20 Active bismuth subsalicylate 262 mg tablet Take 2 Tabs by mouth 4 times daily as needed for Other (diarrhea). 08/27/19 Active aspirin 81 mg EC tablet Take 1 tablet (81 mg total) by mouth 1 (one) time each day. 05/05/20 Active albuterol HFA (PROAIR HFA ; PROVENTIL HFA ; VENTOLIN HFA) 90 mcg/actuation inhaler Inhale 2 Puffs into the lungs every 4 hours as needed for Wheezing or Shortness of Breath. 05/05/20 Active blood-glucose meter kit For E11.49 to check blood sugar twice per day. Once prior to breakfast and once prior to dinner 09/05/19 Active blood sugar diagnostic (FreeStyle Lite Strips) test strip USE TO TEST FINGER STICK BLOOD SUGAR 2 TO 3 X DAILY DIRECTED 11/23/19 Active EASY COMFORT LANCETS MISC Apply 1 Each topically 3 times daily. 11/23/19 Active isopropyl alcohol-benzocain e 70-6 % pads, medicated USE 3 (THREE) TIMES A DAY 03/15/20 18 Active oxyCODONE (ROXICODONE) 5 mg immediate release tablet Si-2 tabs PO Q12h prn severe pain Sent to pharmacy as: oxyCODONE HCl 5 MG Oral Tablet (ROXICODONE) Earliest Fill Date: 03/04/2024 Active baclofen (LIORESAL) 10 mg tablet TAKE 1 TABLET BY MOUTH two (2) times a day 11/06/19 24 Active budesonide-formot Adelia (SYMBICORT) 160-4.5 mcg/actuation inhaler INHALE JOHANN DOS STALIN FREDERICK AL D A 08/19/20 22 Active cetirizine (ZyrTEC) 10 mg tablet Take 1 tablet (10 mg total) by mouth 1 (one) time each day in the morning. 12/31/19 24 Active clindamycin (CLEOCIN T) 1 % lotion APLIQUE CAPA BEHZAD EL AREA AFECTADA TODOS LOS HAM 08/08/19 23 Active ezetimibe (ZETIA) 10 mg tablet Take 1 tablet (10 mg total) by mouth daily. 11/06/19 24 Active fluconazole (DIFLUCAN) 150 mg tablet Take 1 tablet (150 mg total) by mouth. 09/08/19 24 Active Advair HFA 230-21 mcg/actuation inhaler INHALE 2 PUFF BY MOUTH EVERY TWELVE HOURS 04/06/20 24 Active Procto-Med HC 2.5 % rectal cream APPLY RECTALLY two (2) times a day FOR 2 WEEKS, burns FOR 2 WEEK THEN USE FOR 2 WEEK 10/27/19 24 Active ipratropium (ATROVENT) 21 mcg (0.03 %) nasal spray Administer 2 sprays into each nostril every 12 hours. 09/30/19 24 Active tiZANidine (ZANAFLEX) 4 mg capsule Take 1 capsule (4 mg total) by mouth. Active esomeprazole (NexIUM) [address] capsule TAKE 1 CAPSULE BY MOUTH two (2) times a day 05/19/20 24 Active Synjardy 12.5-500 mg tablet TAKE 1 TABLET BY MOUTH two (2) times a day (WITH BREAKFAST, AND WITH DINNER) 05/20/20 24 Active carvediloL (COREG) 6.25 mg tablet TAKE 1 TABLET BY MOUTH two (2) times a day WITH A MEAL Active zolpidem (AMBIEN) 10 mg tablet TAKE 1 TABLET BY MOUTH EVERY NIGHT AT BEDTIME FOR SLEEP 06/22/19 25 Active Breo Ellipta 200-25 mcg/dose inhaler Inhale 1 puff by mouth 1 (one) time each day. 05/06/20 24 Active ketoconazole (NIZORAL) 2 % shampoo APPLY TO THE AFFECTED AREA 2 X EACH WEEK. apply on scalp. Leave on for 5 minutes then rinse off 03/17/20 24 Active silver sulfADIAZINE (Silvadene) 1 % cream Apply topically 1 (one) time each day. 50 g 03/06/20 25 026 Active doxycycline (Vibramycin) 100 mg capsule Take 1 capsule (100 mg total) by mouth 2 (two) times a day for 10 days. Take with at least 8 ounces (large glass) of water, do not lie down for 30 minutes after. Administer 2 hours before or after multivitamins, antacids, or other products containing polyvalent cations (i.e., calcium, iron, magnesium, selenium, zinc). 20 capsule 03/06/20 25 025 Active cephalexin (KEFLEX) 500 mg capsule Take 1 capsule (500 mg total) by mouth 3 (three) times a day for 10 days. 30 each 03/06/20 25 025 Discontin ued(Cost of medicatio n) Active Problems Problem Noted Date Diagnosed Date Dysphagia 04/22/2024 Assessment & Plan (03/10/2025 2:29 PM EDT): Ms. Harrington reports some residual dysphagia with drinking water [...] compression then, we will leave it alone. Assessment & Plan (04/22/2024 5:04 PM EST): [...] obesity with BMI of 4 0.0-44.9, adult ([facility] V24, [facility] V28) 03/16/2024 Chronic low back pain with sciatica 03/16/2024 Assessment & Plan (03/10/2025 2:30 PM EDT): Ms. Harrington is reporting years of worsening lower back pain particularly down her right leg for which she has had physical therapy but no surgery. With her profound pain, paresthesias and cramping, I will send her for an updated lumbar spine MRI. She is requesting an open scanner at [facility] and I will follow-up with her once the images are available with further treatment options. Class 2 obesity 11/06/2023 Premenstrual symptom 05/23/2019 Kari esophagitis ([facility] V24, [facility] V28) 0 10/08/2018 Overview (03/16/2024): F[facility] [facility] [place] Helicobacter pylori (H. pylori) infection 2018 Overview (03/16/2024): F/u [facility] Seborrheic dermatitis 06/25/2018 Scalp psoriasis 04/13/2018 Hemorrhoids 06/04/2017 Overview (03/16/2024): Internal & external Nonalcoholic steatohepatitis (HURD) 06/04/2017 Insomnia 08/23/2015 Carpal tunnel syndrome 12/25/2014 Overview (03/16/2024): Bilateral - negative EMG at [facility] 2014 Migraine 12/25/2014 Old MD (myocardial infarction) 12/25/2014 Overview (03/16/2024): 1998/ Dr Perez Osteoarthritis 12/25/2014 Overview (03/16/2024): Hands, knees, spine Tricuspid regurgitation 12/25/2014 Overview (03/16/2024): Mild tricuspid / mild pulmonic Fibromyalgia 10/16/2014 Psoriasis 10/16/2014 Asthma 08/07/2011 GERD (gastroesophageal reflux disease) 2 Overview (03/16/2024): H/o H.pylori x 3 Hyperlipidemia 08/07/2011 Hypertension 08/07/2011 Overview (03/16/2024): Follows with cardiology Type 2 diabetes mellitus wit h neurological manifestations, controlled ([facility] V24, [facility] V28) 08/07/2011 Encounters Date Type Department Care Team Description 03/10/2025 1:45 PM EDT Office Visit Neurosurgery [facility] 175 [facility] [address] [place] [phone] Reyna Laboy MD Esophageal dysphagia (Primary Dx); Chronic bilateral low back pain with right-sided sciatica 03/10/2025 1:26 PM EDT - 03/10/2025 11:59 PM EDT Hospital Encounter [facility] Xray [address] [place] [id number] Arthrodesis status Discharge Disposition: Home or Self Care 03/06/2025 2:45 PM EDT Office Visit Orthopedic Surgery [facility] 250 [address] [facility] [address] [place] [phone] Smooth Sharp, DPM Ingrowing nail (Primary Dx); Dermatophytosis of nail; Diabetic mononeuropathy simplex ([facility] V24, [facility] V28); Tinea pedis of both feet from Last 3 Months Immunizations Immunization Administration Dates Next Due Hepatitis B (Fjupjog-S-Smdby , Recombivax HB-Adult) 19yo and older 03/13/2009,02/16/2008,01/11/2008 [...] diabetes mellitus wit h neurological manifestations, controlled ([facility]/HCC V24, CMS/HCC V28) 08/07/2011 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, controlled ([facility]) Tricuspid regurgitation 12/25/2014 DX:Tricu spid regurgitation; COMMENT: Mild tricuspid / mild pulmonic Old MD (myocardial infarction) 12/25/2014 D X:Old MD (myocardial infarction); COMMENT: 1998/ Dr Perez Hyperlipidemia [...] Internal & external Kari esophagitis (CMS/HCC V24, CMS/HCC V28) 10/08/2018 DX:Kari esophagitis ([facility]) ; COMMENT: [facility] [...] PM EDT Office Visit Orthopedic Surgery - [place] [address] [address] Smooth Sharp, DPM [address] [address] Health Maintenance Due Date Last Done Comments Breast Cancer Screening 1970 Diabetes: Annual Foot Exam 1980 Diabetes: Annual Retina Eye Exam 1980 Pneumococcal Vaccine: 50+ Years (1 of 2 - PCV) 1989 Zoster Vaccines (1 of 2) 2020 Hepatitis C Screening 05/17/2022 Social Influencers of Health Screening 05/17/2022 Diabetes: Annual Urine Albumin-Creatinine Ratio (uACR) 05/27/2022 02/18/2019 Cervical Cancer Screening: HPV 05/19/2024 05/19/2019 Depression Screening 06/15/2024 COVID-19 Vaccine ( season) 2025 01/18/2021, 12/21/2020 Influenza Vaccine (#1) 2025 Diabetes: Blood Sugar Control Test (HGBA1C) 02/15/2025 08/15/2024, 03/22/2024, 08/27/2019 Colorectal Cancer Screening: Colonoscopy 09/23/2025 09/24/2015 Diabetes: Annual GFR (Glomerular Filtration Rate) 02/23/2026 02/23/2025, 08/04/2024, 05/31/2024, Additional history exists Hypertension/CHF/CAD Annual BMP Blood Test 02/23/2026 02/23/2025, 08/04/2024, 05/31/2024, Additional history exists DTaP,Tdap,and Td Vaccines (3 - Td or Tdap) 05/11/2027 05/11/2017, 03/18/2007 Cholesterol Screening (Lipid Panel) 09/19/2029 09/19/2024, 08/04/2024, 06/17/2024, Additional history exists RSV Immunization Adult Patients (1 - 1-dose 75+ series) 2045 Hepatitis [...] Routine 03/10/2025 1:36 PM EDT Arthrodesis status ANNUAL BMP BLOOD TEST Routine 08/27/2019 HEMOGLOBIN [...] Range of motion is extremely limited. Code 97992 -------- FINAL REPORT -------- Dictated By: Rj Aguirre Dictated Date: 03/13/2025 07:53 ET Assigned Physician: Rj Aguirre Reviewed and Electronically Signed By: Rj Aguirre Signed Date: 03/13/2025 07:56 ET Workstation ID: [id number] Transcribed By: Self Edit Transcribed Date: 03/13/2025 [...] no prevertebral soft tissue swelling. Procedure Note jR Aguirre MD - 03/13/2025 HISTORY: The patient [...] extension. Range ofmotion is extremely limited. Code 40575 -------- FINAL REPORT -------- Dictated By: Rj Aguirre Dictated Date: 03/13/2025 07:53 ET Assigned Physician: Rj Aguirre Reviewed and Electronically Signed By: Rj Aguirre Signed Date: 03/13/2025 07:56 ET Workstation ID: [id number] Transcribed By: Self Edit Transcribed Date: 03/13/2025 07:53 ET us Reyna Laboy MD IMG XR PROCEDURES Final Result * Annual BMP Blood Test (08/27/2019) [facility] Annual BMP Blood Test abstracted Historical Provider HEALTH MAINTENANCE Final Result * (ABNORMAL) Hemoglobin A1c (08/27/2019) [facility] Hemoglobin A1C 6.6(A) <=6.5 % Blood Venous blood specimen / Unknown Result [facility] Provider LAB BLOOD ORDERABLES Behzad l Result * Cervical Cancer Screening: HPV (05/19/2019) [facility] Cervical Cancer Screening: HPV negative, abstracted Result [facility] Provider HEALTH MAINTENANCE Final Result * Urine Albumin Creatinine Ratio (02/18/2019) [facility] Urine Albumin Creatinine Ratio abstracted Result [facility] Provider HEALTH MAINTENANCE Final Result * (ABNORMAL) Lipid panel (02/18/2019) [facility] LDL/HDL Ratio 7(A) 0 - 4 Triglycerides 443(A) 0 - 150 mg/dL Cholesterol 185 0 - 200 mg/dL HDL 27(A) >=40 mg/dL LDL Cholesterol 70 0 - 100 mg/dL Blood Venous blood specimen / Unknown Result [facility] Provider LAB BLOOD ORDERABLES Behzad l Result * Colonoscopy (09/24/2015) [facility] Colonoscopy no interpretation , abstracted Anatomical Region Laterality Modality Other Result [facility] Provider HEALTH MAINTENANCE Final Result from Last 3 Months or Most Recently Relevant to Health Maintenance Insurance MEDICAID - [place] Care Teams Manager Warehouse Relationship Specialty Start Date End Date Physician, Pcp Unknown PCP - General 03/10/25
--- OUTSIDE RECORDS SUMMARY | 2025-03-14 15:37 | XMS_ITS | Encounter Summary ---
Author Organization [employer] Address 75 [facility] 7t [place] [address] Care Team Providers Care Bladder Tier Name Role Phone Name, Matt APPIAH Primary Care Provider [phone] Ni Gandhi RN Unavailable [phone] Radha Borden Unavailable Reason for Visit * Reason Onset Date Comments Durable Medical Equipment 04/06/2024 Encounter Details Date Type Department Care Team ([facility] st Contact Info) Description 04/06/2024 Telephone [facility] MEDICINE [address] [place], [place] [phone] Name, MD Matt [address] [place] [address] Durable Medical Equipment Social History Tobacco Use [...] 11:30 AM EST Office Visit [facility] MEDICINE [address] [place] [address] Name, MD Matt [address] [place] [address] documented as of this encounter Visit Diagnoses Not on filedocumented in this encounter Additional Health Concerns Assessment Noted Time PHQ-9 Depression Total Score: 0 09/07/19 24 3:15 PM EDT documented as of this encounter Care Teams Bladder Tier Relationship Specialty Start Date End Date Name, MD Matt [address] [place] [address] PCP - General Family Medicine 02/21/22 Ni Gandhi RN [address] [place] [address] Registered Nurse Family Medicine 02/24/25 Radha Borden 02/24/25 Estephanie Tan Tanner Rotary Drum Continuous ProcessSupervisor Color Making 11/24/23 documented as of this encounter
--- OUTSIDE RECORDS SUMMARY | 2025-03-14 15:38 | XMS_ITS | Encounter Summary ---
Author Organization [employer] Address [address] [facility] 7t [place] [address] Care Team Providers Care Diving Coach Name Role Phone Name, Matt APPIAH Primary Care Provider [phone] Ni Gandhi RN Unavailable [phone] Radha Borden Unavailable Reason for Visit * Reason Comments Care Management C3CM- initial assess ment/ enrollment Encounter Details Date Type Department Care Team (Late st Contact Info) Description 03/13/2025 Patient Outreach [facility] MEDICINE [address] [place], [place] [phone] Name, MD Matt [address] [place] [address] Care Management (C3- initial assessment/ enrollment) Social History Tobacco Use Types Packs/Day Years [...] AM EDT documented as of this encounter Functional Status * Over the past 2 weeks, how often have you been bothered by any of the following problems? Question Answer Date of Assessment Author Patient Health Questionnaire -2 Score 0 03/13/2025 10:51 AM Ni Stephenson RN * Little interest or pleasure in doing things Answer Date of Assessment Author Not at all 03/13/2025 10:51 AM Ni Stephenson RN * Feeling down, depressed, or hopeless Answer Date of Assessment Author Not at all 03/13/2025 10:51 AM Ni Stephenson RN * Trouble falling or staying asleep, or sleeping too much Answer Date of Assessment Author Not at all 03/13/2025 10:51 AM Ni Stephenson RN * Feeling tired or having little energy Answer Date of Assessment Author Not at all 03/13/2025 10:51 AM Ni Stephenson RN * Poor appetite or overeating Answer Date of Assessment Author Not at all 03/13/2025 10:51 AM Ni Stephenson RN * Feeling bad about yourself - or that you are a failure or have let yourself or your family down Answer Date of Assessment Author Not at all 03/13/2025 10:51 AM Ni Stephenson RN * Trouble concentrating on things, such as reading the newspaper or watching television Answer Date of Assessment Author Not at all 03/13/2025 10:51 AM Ni Stephenson RN * Moving or speaking so slowly that other people could have noticed? Or the opposite - being so fidgety or restless that you have been moving around a lot more than usual. Answer Date of Assessment Author Not at all 03/13/2025 10:51 AM Ni Stephenson RN * Thoughts that you would be better off or hurting yourself in some way Answer Date of Assessment Author Not at all 03/13/2025 10:51 AM Ni Stephenson RN * Patient Health Questionnaire-9 Score Answer Date of Assessment Author 0 03/13/2025 10:51 AM Ni Stephenson RN * Over the last 2 weeks, how often have you been bothered by any of the following problems? Question Answer Date of Assessment Author Feeling nervous, anxious, or on edge 0 03/13/2025 10:52 AM Ni Stephenson RN Not being able to stop or co ntrol worrying 0 03/13/2025 10:52 AM Ni Stephenson RN Worrying too much about diff erent things 0 03/13/2025 10:52 AM Ni Stephenson RN Trouble relaxing 0 03/13/2025 10:52 AM Ni Stephenson RN Being so restless that it is hard to sit still 0 03/13/2025 10:52 AM Ni Stephenson RN Becoming easily annoyed or irritable 0 03/13/2025 10:52 AM Ni Stephenson RN Feeling afraid as if somethi ng awful might happen 0 03/13/2025 10:52 AM Ni Stephenson RN CLARA-7 Total Score 0 03/13/2025 10:52 AM Ni Stephenson RN documented as of this encounter Plan of Treatment Upcoming Encounters Date Type Department Care Team (Late st Contact Info) Description 06/14/2025 11:30 AM EST Office Visit [facility] MEDICINE [address] [place] [address] Name, MD Matt [address] [place] [address] documented as of this encounter Visit Diagnoses Not on filedocumented in this encounter Additional Health Concerns Assessment Noted Time PHQ-9 Depression Total Score: 0 03/13/20 25 10:51 AM EDT documented as of this encounter Care Teams Diving Coach Relationship Specialty Start Date End Date Name, MD Matt [address] [place] [address] PCP - General Family Medicine 02/21/22 Ni Gandhi RN [address] [place] [address] Registered Nurse Family Medicine 02/24/25 Radha Borden 02/24/25 Estephanie Tan Mri ManagerDirector Of Patient Safety 11/24/23 documented as of this encounter
--- OUTSIDE RECORDS SUMMARY | 2025-03-14 15:38 | XMS_ITS | Encounter Summary ---
Author Organization [email or web address] Address 75 [facility] 7t [place] [address] Care Team Providers Care Gun Mechanic Name Role Phone Name, Matt APPIAH Primary Care Provider [phone] Ni Gandhi RN Unavailable [phone] Radha Borden Unavailable Reason for Visit * Reason Onset Date Comments Med Refill 09/24/2023 Encounter Details Date Type Department Care Team ([facility] st Contact Info) Description 09/24/[address] [facility] MEDICINE [address] [place], [place] [phone] Name, MD Matt [address] [place] [address] Med Refill Social History Tobacco Use Types [...] 10 MG tablet To be sent to: [facility] - [place], [place] - [phone] - [place] - [phone] documented in this encounter Plan of Treatment Upcoming Encounters Date Type Department Care Team (Late st Contact Info) Description 06/14/2025 11:30 AM EST Office Visit [facility] MEDICINE [address] [place] [address] Name, MD Matt [address] [place] [address] documented as of this encounter Visit Diagnoses Not on filedocumented in this encounter Additional Health Concerns Assessment Noted Time PHQ-9 Depression Total Score: 0 09/07/19 24 3:15 PM EDT documented as of this encounter Care Teams Gun Mechanic Relationship Specialty Start Date End Date Name, MD Matt [address] [place] [address] PCP - General Family Medicine 02/21/22 Ni Gandhi, SEBASTIAN [address] [place] [address] Registered Nurse Family Medicine 02/24/25 Radha Borden 02/24/25 Estephanie Tan Distribution Warehouse ManagerClay Pigeon Setter 11/24/23 documented as of this encounter
--- OUTSIDE RECORDS SUMMARY | 2025-03-14 15:38 | XMS_ITS | Encounter Summary ---
Author Organization [employer] Address [address] [facility] 7t [place] [address] Care Team Providers Care Justice Court Judge Name Role Phone Name, Matt APPIAH Primary Care Provider [phone] Ni Gandhi RN Unavailable [phone] Radha Borden Unavailable Reason for Visit * Reason Onset Date Comments Care Coordination 11/24/2023 X0AE-scpptae a ssessment Encounter Details Date Type Department Care Team ([facility] Contact Info) Description 11/24/2023 Telephone [facility] [address] [place] [address] Estephanie Tan, SEBASTIAN Care Coordination ([id number]-[id number] assessment) Social History Tobacco Use Types Packs/Day [...] Member is a 53 year old female, Faroese speaking. Patient is alert andoriented x 3. [...] for her psoriasis. Reports she went to [facility] ER on 11/04/2023 for chest pain, dizziness, work up negative, ?Patient had follow up ED appointment with PCP11/06/2023. Patient stopped taking statin muscle discomfort. This was changed to Zetia 10mg daily. Also placed on Baclophen 10mg 2 times a day. Next PCP appointment is 12/18/2023. Care management program explained and contact information given. Patient verbalizes understanding, and able to repeat back to rfp writer. A follow up call will be [...] Description 06/14/2025 11:30 AM EST Office Visit [facility] [address] [place] [address] Name, MD Matt [address] [place] [address] documented as of this encounter Visit Diagnoses Not on filedocumented in this encounter Additional Health Concerns Assessment Noted Time PHQ-9 Depression Total Score: 0 09/07/19 24 3:15 PM EDT documented as of this encounter Care Teams Justice Court Judge Relationship Specialty Start Date End Date Name, MD Matt [address] [place] [address] PCP - General Family Medicine 02/21/22 Ni Gandhi RN [address] [place] [address] Registered Nurse Family Medicine 02/24/25 Radha Borden 02/24/25 Estephanie Tan Senior Salesforce DeveloperMargarine Maker 11/24/23 documented as of this encounter
--- OUTSIDE RECORDS SUMMARY | 2025-03-14 15:38 | XMS_ITS | Clinical Summary ---
Author Organization [facility] Address [address] [place] [address] Phone Care Team Providers Care Industrial Engineering Name Role Phone Name, Matt APPIAH Primary Care Provider [phone] Allergies Active Allergy Reactions Criticality Noted Date [...] tablet, 0 Refills, Maintenance, 08/21/21 8:47:00 EST, [facility]/pharmacy #[id number], Partial fill upon patient request if [...] topic Medical Devices Not on file [place] [address] [place] [address] [place] [address] [place] [address] [place] [address] C3 ACO [facility] C3 ACO Care Teams Industrial Engineering Relationship Specialty Start Date End Date Name, MD Matt [address] [place] [address] PCP - General Geriatric Psychiatry 04/16/22 Additional Source Comments The information contained in this document represents components of the legal health record. It is not the complete legal health record.[facility]
--- OUTSIDE RECORDS SUMMARY | 2025-03-14 15:38 | XMS_ITS | Encounter Summary ---
Author Organization [employer] Address [address] [facility] 7t [place] [address] Care Team Providers Care Cooker Sulfate Name Role Phone Name, Matt APPIAH Primary Care Provider [phone] Ni Gandhi RN Unavailable [phone] Radha Borden Unavailable Encounter Details Date Type Department Care Team (Late st Contact Info) Description 08/05/2024 Orders Only [facility] [address] [place], [place] [phone] Yolande Knight MD [address] [place], [place] [phone] Social History Tobacco Use Types Packs/Day Years [...] Description 06/14/2025 11:30 AM EST Office Visit [facility] [address] [place] [address] Name, MD Matt [address] [place] [address] documented as of this encounter Visit Diagnoses Not on filedocumented in this encounter Additional Health Concerns Assessment Noted Time PHQ-9 Depression Total Score: 0 09/07/19 24 3:15 PM EDT documented as of this encounter Care Teams Cooker Sulfate Relationship Specialty Start Date End Date NameMatt MD [address] [place] [address] PCP - General Family Medicine 02/21/22 Ni Gandhi, SEBASTIAN [address] [place] [address] Registered Nurse Family Medicine 02/24/25 Radha Borden 02/24/25 Estephanie Tan Airport Operations SupervisorGlass Beveller 11/24/23 documented as of this encounter
--- OUTSIDE RECORDS SUMMARY | 2025-03-14 15:38 | XMS_ITS | Encounter Summary ---
Author Organization [employer] Address [address] [facility] 7t [place] [address] Care Team Providers Care Window/Distribution Clerk Name Role Phone Name, Matt APPIAH Primary Care Provider [phone] Ni Gandhi RN Unavailable [phone] Radha Borden Unavailable Encounter Details Date Type Department Care Team (Latest Contact Info) Description 03/14/2025 Travel Social History Tobacco Use Types Packs/Day [...] Description 06/14/2025 11:30 AM EST Office Visit [facility] [address] [place] [address] Name, MD Matt [address] [place] [address] documented as of this encounter Visit Diagnoses Not on filedocumented in this encounter Additional Health Concerns Assessment Noted Time PHQ-9 Depression Total Score: 0 03/13/20 25 10:51 AM EDT documented as of this encounter Care Teams Window/Distribution Clerk Relationship Specialty Start Date End Date Name, MD Matt [address] [place] [address] PCP - General Family Medicine 02/21/22 Ni Gandhi, SEBASTIAN [address] [place] [address] Registered Nurse Family Medicine 02/24/25 Radha Borden 02/24/25 Estephanie Tan Social ProfessionalsCommunications Scientist 11/24/23 documented as of this encounter
--- OUTSIDE RECORDS SUMMARY | 2025-03-14 15:38 | XMS_ITS | Encounter Summary ---
Author Organization [employer] Address [address] [facility] 7t [place] [address] Care Team Providers Care Timber Robber Name Role Phone Name, Matt APPIAH Primary Care Provider [phone] Ni Gandhi RN Unavailable [phone] Radha Borden Unavailable Reason for Visit * Reason Onset Date Comments triage 09/18/2022 Encounter Details Date Type Department Care Team ([facility] st Contact Info) Description 09/18/2022 Telephone [facility] [address] [place], [place] [phone] Name, MD Matt [address] [place], [place] [phone] triage Social History Tobacco Use Types Packs/Day [...] The caller accepted this outcome pt speaks tajik documented in this encounter Plan of Treatment Upcoming Encounters Date Type Department Care Team (Late st Contact Info) Description 06/14/2025 11:30 AM EST Office Visit [facility] [address] [place] [address] Name, MD Matt [address] [place] [address] documented as of this encounter Visit Diagnoses Not on filedocumented in this encounter Care Teams Timber Robber Relationship Specialty Start Date End Date Name, MD Matt [address] [place] [address] PCP - General Family Medicine 02/21/22 Ni Gandhi RN [address] [place] [address] Registered Nurse Family Medicine 02/24/25 Radha Borden 02/24/25 Estephanie Tan Director RevenueTankage Grinder 11/24/23 documented as of this encounter
[2025-03-14 17:19] LABS: Microalbum/Creatinine Ratio Ur 6.8 ug/mg cr (<30)
== END 2025-03-14 14:16 | disposition home or self-care (01) ==
LOC: HO.HHCL 14:15
PROVIDERS: PCP Internal Medicine Geriatric Medicine; Visit Provider Internal Medicine Geriatric Medicine
DX: E11.49 Type 2 diabetes mellitus with other diabetic neurological complication (principal)
CPT/HCPCS: 82043; 82570

== ENCOUNTER 2025-04-26 14:01 | Outpatient (AMB) | payer MEDICAID, SELFPAY ==
--- NOTE | 2025-04-26 14:13 | A.OFFVIS_ITS ---
Vital Signs 04/26/25 14:31 Height 5 ft 3 in Weight 210 lb BMI 37.2 Intake Visit Reasons: FHX malignant neoplasm of breast Intake Note: Patient presents for possible genetic testing, family history of malignant neoplasm of breast. Pt c/o; reports right axillary mass, reports drainage in the right axilla, reports pilar cyst and a cyst on left groin. Overhauler Required: Yes Overhauler Language: Building Inspection Engineer Services: Overhauler Present Overhauler Name: Montez Information Interpreted: non-clinical & clinical Accompanied by: Family/Other Allergies acetaminophen (From Vicodin) Allergy (Intermediate, Verified 04/26/25 14:32) Palpitations, Itch amoxicillin (Prevpac) Allergy (Intermediate, Verified 04/26/25 14:32) itchy throat hydrocodone (From Vicodin) Allergy (Intermediate, Verified 04/26/25 14:32) Palpitations, Itch ibuprofen (From Motrin) Allergy (Intermediate, Verified 04/26/25 14:32) UPSET STOMACH, abdominal pain lansoprazole (Prevpac) Allergy (Intermediate, Verified 04/26/25 14:32) itchy throat morphine (MORPHINE) Allergy (Intermediate, Verified 04/26/25 14:32) PALPATATIONS, PANIC ATTACKS, nauseas,panic attack, heart palpitations omeprazole (From PRILOSEC) Allergy (Intermediate, Verified 04/26/25 14:32) ITCHY THROAT pravastatin (PRAVASTATIN) Allergy (Intermediate, Verified 04/26/25 14:32) UNKNOWN rosuvastatin (From CRESTOR) Allergy (Intermediate, Verified 04/26/25 14:32) UNKNOWN terbinafine (TERBINAFINE) Allergy (Intermediate, Verified 04/26/25 14:32) UNKNOWN atorvastatin (From LIPITOR) Allergy (Unknown, Verified 04/26/25 14:32) UNKNOWN clarithromycin (From BIAXIN) Adverse Reaction (Intermediate, Verified 04/26/25 14:32) ABD PAIN, DIARRHEA gabapentin (GABAPENTIN) Adverse Reaction (Intermediate, Verified 04/26/25 14:32) UNKNOWN, nausea, dizziness levofloxacin (LEVOFLOXACIN) Adverse Reaction (Intermediate, Verified 04/26/25 14:32) PALPITATIONS tylenol with codeine Allergy (Unknown, Uncoded 04/26/25 14:32) fast heart rate HPI HPI FHX malignant neoplasm of breast: Details: 55 year female referred for a family history of breast cancer. She says that her sister breast cancer the age of 58. She describes her daughter having ovarian cancer at age of 23. She had a maternal cousin with breast cancer as well She also mentions having a grandmother who had ovarian cancer Her menarche was at the age of 11. She had 7 pregnancies. Her 1st was at the age of 17. She had menopause at the age of 54. Review of her records show that she had a mammogram last May, which was unremarkable. She denies any palpable breast mass. She does state that she has skin cyst in the right axilla which had drained before. [facility] Medical History (Updated 04/26/25 @ 14:51 by Christ Gustafson MD) Family history of ovarian cancer FH: breast cancer Pelvic pain Encounter for well woman exam with routine gynecological exam Umbilical hernia Scalp mass Irritable bowel syndrome with diarrhea Allergic rhinitis Lumbar degenerative disc disease Breast pain during Carpal tunnel syndrome Arthritis Morbid obesity with BMI of 40.0-44.9, adult Insomnia Diabetes mellitus Benign essential hypertension Polyarthralgia Fibromyalgia Mixed hyperlipidemia Candidiasis of mouth and esophagus Thoracic spondylosis Surgical History Hx of dilation and curettage History of endometrial ablation Hx of colonoscopy History of esophagogastroduodenoscopy (EGD) History of dermoid cyst excision History of excision of lamina of cervical vertebra for decompression of spinal cord H/O hemorrhoidectomy History of appendectomy Family History Father NIDDY (non-insulin dependent diabetes mellitus in young) Cardiovascular disease Obesity Cancer of unknown origin Colon cancer Mother CAD (coronary artery disease) NIDDY (non-insulin dependent diabetes mellitus in young) Brother Schizophrenia Degenerative disc disease H/O lymph node cancer Sister Breast cancer Colon cancer Paternal Grandmother Ovarian cancer, Onset Age: 45 Daughter Fibromyalgia Hypertension Cancer of unknown origin Ovarian cancer Other Mental health problem Social History Household Members: None Housing: Apartment Alcohol intake: never Patient Tobacco Use Status: Never used Tobacco e-Cigarette/Vaping Use: Never Used Second Hand Smoke Exposure: No service: No Current occupational status: disabled 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 Sexual orientation: Straight/Heterosexual Gender identity: Female Cognitive needs: No Hearing needs: Yes Vision needs: Yes Female Reproductive History Menstrual Age of Menarche: 11 Review of Systems Const Denies chills and Denies fever(s) Card Denies chest pain, Denies dyspnea and Denies dyspnea on exertion Resp Denies cough, Denies dyspnea and Denies dyspnea on exertion GI Denies hematochezia and Denies change in bowel habits Denies hematuria Musc Denies back pain and Denies limited range of motion Neuro Denies focal weakness and Denies convulsions Psych Denies depression and Denies mood swings Physical Exam Vital Signs: BMI result Body Mass Index 37.2 Const General: comfortable and no acute distress Orientation/consciousness: patient oriented x3 Neck Neck: Yes no lymphadenopathy Chest Other: Large pendulous breasts, no obvious palpable breast mass, no axillary lymphadenopathy Resp Auscultation: clear to auscultation bilaterally Cardio Rhythm: regular rhythm GI Palpation (GI): Soft to palpation, nontender and no guarding Neuro General: patient oriented x3 Assessment & Plan Assessment & Plan (1) Family history of ovarian cancer: Code(s): Z80.41 - Family history of malignant neoplasm of ovary Category: Medical Plan: She actually has family history of ovarian and breast cancer as described above. She may therefore qualify for genetic testing. I explained to her the implications of this test to herself and her family She is interested so we will schedule her for this. I will see her again in the office to discuss the results. I also reminded her to make sure that she continues to have regular screening mammograms. Coding Level of Care Code Est Pt Level 3 (74800) Diagnoses Family history of ovarian cancer Z80.41
[2025-04-26 14:31] VITALS: BMI 37.2
--- OUTSIDE RECORDS SUMMARY | 2025-04-26 17:18 | XMS_ITS | Data Portability ---
Author Organization [place] [facility], Allergy Address [address] [facility] [address] [place] [address] Care Team Providers Care Shochet Name Role Phone YOLANDA VANEGAS Referring Provider [...] for amplification. Recommend she follow up with [facility], and discussed hearing aids would help [...] Organization Details Recorded Time Dizziness and giddiness 142311779 Active 2017 Dizziness and giddiness ; Note: Date Diagnosed : 02/11/2018 2:44 PM (R42) Not Available [facility] 4 03:04:54 Headache 55603708 Active 2017 Headache, unspecifi ed; Note: Changed from R51 to R51.9 (07/19/2021 2:06 PM) , Date Diagnosed : 02/11/2018 2:44 PM (R51) Not Available [facility] 4 03:04:55 Gastroeso phageal reflux disease without esophagit is 106349117 Active 2017 Gastro-es ophageal reflux disease without esophagit is; Note: Date Diagnosed : 03/05/2018 1:19 PM (K21.9) Not Available [facility] 4 03:04:53 Cough 10335344 Active 2017 Cough; Note: Date Diagnosed : 03/05/2018 1:16 PM (R05) Not Available [facility] 4 03:04:55 Sensorine ural hearing loss of bilateral ears 565418087 Active 2020 Sensorine ural hearing loss, bilateral ; Note: Date Diagnosed : 01/10/2021 2:50 PM (H90.3) Not Available [facility] 4 03:04:55 Migraine 45206411 Active 2020 Other migraine, not intractab le, without status migrainos us; Note: Date Diagnosed : 1 4:10 PM (G43.809) Not Available [facility] 4 03:04:56 Referred otalgia of left ear 33493540135 36356 Active 2023 MARISSA CARCAMO PA-C [address] [facility],[place] [address], [facility] [place], [address] , [facility] - [facility] 4 12:01:45 Bilateral tinnitus 54708254842 02 Active 2023 MARISSA CARCAMO PA-C [address] [facility],[place] [address], [facility] [place], [address] , [facility] - [facility] 4 12:01:52 Problem Notes None recorded. Procedures Surgical History Date Name Laterality Status Provider Name and Address Organization Details Recorded Time 024 Air & Speech Audio with Tymps - 45171, 84494 & 16317 completed SHAHLA SLOAN [address] [facility],[place] [address], [place], [address], [facility] - [facility] 05/27/2024 11:03:21 hemorrhoidectomy completed Mica Horner [place] [facility] 05/27/2024 10:56:11 Appendectomy completed Mica Horner [facility] 05/27/2024 10:56:15 Imaging Results None recorded. Procedure Notes None recorded. Medical Equipment None Reported. Allergies Allergen ID Allergen Name Allergen Category Reaction Reaction Severity Criticality Documentation Date Start Date Code Code System Note Provider Name and Address Organization Details Recorded Time 27480 gabapenti n medicatio n other Not available Not available 10/27/2023 03274 RxNorm React ion: unkno wn, unspe cifie d;; Not Available [facility] 4 00:48:25 57975 terbinafi ne medicatio n other Not available Not available 10/27/2023 59907 RxNorm React ion: unkno wn, unspe cifie d;; Not Available [facility] 4 00:48:25 61709 Lipitor medicatio n other Not available Not available 10/27/2023 65429 5 RxNorm React ion: unkno wn, unspe cifie d;; Not Available [facility] 4 00:48:25 71676 Crestor medicatio n other Not available Not available 10/27/2023 23476 4 RxNorm React ion: unkno wn, unspe cifie d;; Not Available [facility] 4 00:48:34 86800 sodium medicatio n other Not available Not available 10/27/2023 9853 RxNorm React ion: unkno wn, unspe cifie d;; Not Available [facility] 4 00:48:41 96735 Biaxin medicatio n other Not available Not available 10/27/2023 03872 9 RxNorm React ion: unkno wn, unspe cifie d;; Not Available [facility] 4 00:48:42 01887 Motrin medicatio n other Not available Not available 10/27/202343668 8 RxNorm React ion: unkno wn, unspe cifie d;; Not Available [facility] 4 00:48:53 79597 morphine medicatio n other Not available Not available 10/27/2023 7052 RxNorm React ion: unkno wn, unspe cifie d;; Not Available [facility] 4 00:48:59 88126 acetamino phen / hydrocodo ne medicatio n other Not available Not available 10/27/2023 56513 2 RxNorm React ion: unkno wn, unspe cifie d;; Not Available [facility] 4 00:49:06 89040 pravastat in medicatio n other Not available Not available 10/27/2023 51867 RxNorm React ion: unkno wn, unspe cifie d;; Not Available [facility] 4 00:49:07 Medications Name Sig Start Date Stop Date Status Note LastModified by Organization Details LastModified Time nystatin 100,000 unit/mL oral suspensio n 05/27 completed Medicati on ID: [id number] D uration Value: 30 Brand Name: nystatin [...] Alcohol Pads 05/27 completed Medicati on ID: [id number] D uration Value: 30 Brand Name: Alcohol [...] mg tablet 05/27 completed Medicati on ID: 968360 D uration Value: 30 Brand Name: hank avila Send Method: E-Prescr ibed Sub s Allowed: subs OK Speci al Instruct ion: TAKE ONE TABLET BY MOUTH 2 (two) times a day WITH A MEAL [facility] Steffi me: carvedil ol Not Available Not [...] mg tablet 05/27 completed Medicati on ID: 865499 D uration Value: 28 Brand Name: zolpidem [...] ating tablet 05/27 completed Medicati on ID: [id number] D uration Value: 30 Brand Name: bree [...] elayed release 05/27 completed Medicati on ID: 379253 D uration Value: 30 Brand Name: donald [...] unit) capsule 2017 active Medicati on ID: 903066 D uration Value: 30 Brand Name: D3 Send Method: E-Prescr ibed Sub s Allowed: subs OK Speci al Instruct ion: TAKE ONE CAPSULE BY MOUTH DAILY Me dication GenericN louie: D3-2000 Not Available Not Available Not Available Easy Comfort Lancets 30 gauge 05/27 completed Medicati on ID: [id number] D uration Value: 30 Brand Name: Easy [...] Diagnosis SNOMED-CT Code Diagnosis ICD10 Code Diagnosis IMO Codes Diagnosis Note [id number] MARISSA CARCAMO PA-C [facility] [address] [address] 05/27/2024 10:49:53 05/27/2024 11:53:18 Sensorineural hearing loss of bilateral ears 743527517 H90.3 Right Ear:Normal hearing through 2K Hz sloping to a profound SNHL with good speech discrimina tion.Type A tympanogra m.Left Ear:Normal hearing through 2K Hz sloping to a profound SNHL with good speech discrimina tion.Type A tympanogra m. Referred o talgia of left ear [id number] 716788 H92.02 Bilateral tinnitus 96237 62773 102 H93.13 Health Concerns Section Related Observation LastModified by Organization Detai ls LastModified Time None Recorded Concern Status LastModified by Organization Details LastModified Time None Recorded Advance Directives Directive None Recorded Payers Insurance Date Sequence Insurance Name Policy Number Policy Juárez Covered Member ID Juárez Member ID Guarantor Name 05/18/2024 2 [facility] NET PLAN (MEDICAID HMO) OSVALDO Yancey [id number] Farrah Yancey 05/27/2024 1 [place] [facility] Farrah Bc [id number] Farrah Bc 05/05/2024 1 [place] [facility] Farrah Yancey [id number] Farrah Bc Notes Date Note Type Note Provider Name and Address Organization Details Recorded Time 05/27/2024 text/html ROS as noted in the HPI 54-year-old female with bilateral SNHL presents for [...] caused pruritus. The amplification was dispensed by line maintenance supervisor in [place]. Denies otorrhea or dizziness. Denies prior history of ear infections or ear surgeries. No history of loud noise exposure. No Qtip use. History of migraine. MIGUEL NATH MD [address] [place] [address], [place], [address], [place] [facility] 05/28/2024 13:57:56 OBGyn Episode No OBEpisode recorded.
--- OUTSIDE RECORDS SUMMARY | 2025-04-26 17:18 | XMS_ITS | Encounter Summary ---
Author Organization [employer] Address [address] [facility] 7t [place] [address] Care Team Providers Care Certified Energy Manager Name Role Phone Name, Matt APPIAH Primary Care Provider [phone] Ni Gandhi RN Unavailable [phone] Radha Borden Unavailable Reason for Visit * Reason Comments Care Management C3CM- f/u call lvm Encounter Details Date Type Department Care Team ([facility] st Contact Info) Description 04/25/2025 Patient Outreach [facility] [address] [place], [place] [phone] Name, MD Matt [address] [place], [place] [phone] Care Management (C3CM- f/u call lvm) Social History Tobacco Use Types Packs/Day Years [...] housing situation today? I have chiqui ashton 03/17/[address] you li ve. Do you have problems with any of the following? Not on file 03/17/2025 Food Insecurity Answer Date Recorded Within the past 12 months, y ou worried that your food would run out before you got money to buy more: Often true 03/17/2025 Within the past 12 months,th e food you bought just didn't last and you didn't have enough money to get more: Often true 08/2024 Transportation Answer Date Recorded In the past 12 months, has l ack of transportation kept you from medical appts, meetings, work or from getting things needed for daily living? No 03/17/2025 Utilities Answer Date Recorded In the past 12 months, has t he electric, gas, oil or water company threatened to shut off services in your home? No 03/17/2025 Depression Answer Date Recorded Patient Health Questionnaire-2 Score 0 03/13/2025 Internet Access Answer Date Recorded Internet Access Q1 Yes 03/17/2025 Internet Access Q2 Not on file 03/17/2025 Comments Unknown Sex and Gender Information Value Date Recorded Sex Assigned at Female 04/14/2022 10:15 AM EDT Legal Sex Female 10:15 AM EDT Gender Identity Female 04/14/2022 10:15 AM EDT Sexual Orientation Straight 04/14/2022 10 :15 AM EDT documented as of this encounter Progress Notes * Ni Gandhi RN - 04/25/2025 10:13 AM EST CM Ni Gandhi RN placed outbound call with CHW Radha Borden to patient for follow up call. Noanswer at this time. LVM introducing herself from [facility] CM Department. Requested call back. CM reinforced direct contact information or CHW for any additional questions or concerns. Education provided on Walk-In Urgent Care located in [facility] of [facility]. Patient provided with after-hours line for [facility], , which offer night time triage service and option to transfer to information technology director provider if needed. CM will attempt another follow up call within 10 days. documented in this encounter Plan of Treatment Upcoming Encounters Date Type Department Care Team (Late st Contact Info) Description 06/14/2025 11:30 AM EST Office Visit [facility] [address] [place] [address] Name, MD Matt [address] [place], [place] [phone] documented as of this encounter Visit Diagnoses Not on filedocumented in this encounter Additional Health Concerns Assessment Noted Time PHQ-9 Depression Total Score: 0 03/13/20 10:51 AM EDT documented as of this encounter Care Teams Certified Energy Manager Relationship Specialty Start Date End Date Name, MD Matt [address] [place] [address] PCP - General Family Medicine 02/21/22 Ni Gandhi RN [address] [place] [address] Registered Nurse Family Medicine 02/24/25 Radha Borden 02/24/25 Estephanie Tan Ordnance Truck Installation SupervisorPassenger Car Cleaning Supervisor 11/24/23 documented as of this encounter
--- OUTSIDE RECORDS SUMMARY | 2025-04-26 17:18 | XMS_ITS | Encounter Summary ---
Author Organization [employer] Address [address] [facility] 7t [place] [address] Care Team Providers Care Geospatial Information Scientist Name Role Phone Name, Matt APPIAH Primary Care Provider [phone] Ni Gandhi RN Unavailable [phone] Radha Borden Unavailable Reason for Visit * Reason Comments Care Coordination SDOH f/u Encounter Details Date Type Department Care Team (Latest Contact Info) Description 04/25/2025 Patient Outreach [facility] [address] [place], [place] [phone] Name, MD Matt [address] [place] [address] Care Coordination (SDOH f/u) Social History Tobacco Use Types Packs/Day Years [...] encounter Progress Notes * Radha Borden - 04/25/2025 10:13 AM EST CHW Radha Borden/CM Ni Gandhi RN placed outbound call to patient for follow up call on SDOH needs. No answer at this time. LVM introducing herself from [facility] CM Department. Requested call back. CHW reinforced direct contact information or CM for any additional questions or concerns and extended clinic hours on Mondays and Wednesdays, and Walk-In Urgent Care Located in [facility] of [facility]. Patient provided with after-hours line for [facility], , which offer night time triage service and option to transfer to mechatronics engineer provider if needed. CHW will attempt another follow up call within 10 days. documented in this encounter Plan of Treatment Upcoming Encounters Date Type Department Care Team (Late st Contact Info) Description 06/14/2025 11:30 AM EST Office Visit [facility] MEDICINE [address] [place] [address] Name, MD Matt [address] [place] [address] documented as of this encounter Visit Diagnoses Not on filedocumented in this encounter Additional Health Concerns Assessment Noted Time PHQ-9 Depression Total Score: 0 03/13/20 25 10:51 AM EDT documented as of this encounter Care Teams Geospatial Information Scientist Relationship Specialty Start Date End Date Name, MD Matt [address] [place] [address] PCP - General Family Medicine 02/21/22 Ni Gandhi RN [address] [place] [address] Registered Nurse Family Medicine 02/24/25 Radha Borden 02/24/25 Estephanie Tan Senior Enterprise ArchitectSpeed Winder 11/24/23 documented as of this encounter
--- OUTSIDE RECORDS SUMMARY | 2025-04-26 17:18 | XMS_ITS | Encounter Summary ---
Author Organization [employer] Address [address] [facility] 7t [place] [address] Care Team Providers Care Paver Operator Name Role Phone Name, Matt APPIAH Primary Care Provider [phone] Ni Gandhi RN Unavailable [phone] Radha Borden Unavailable Reason for Visit * Reason Onset Date Comments Med Refill 01/21/2024 Encounter Details Date Type Department Care Team ([facility] st Contact Info) Description 01/21/2024 Telephone [facility] MED[facility]INE 230 [place] [address] Name, MD Matt [address] [place] [address] Med Refill Social History Tobacco Use Types [...] 10 MG tablet To be sent to: [facility] - [place], [place] - [id number] - [place], [place] - [address] documented in this encounter Plan of Treatment Upcoming Encounters Date Type Department Care Team (Late st Contact Info) Description 06/14/2025 11:30 AM EST Office Visit [facility] MED[facility]INE [address] [place] [address] Name, MD Matt [address] [place] [address] documented as of this encounter Visit Diagnoses Not on filedocumented in this encounter Additional Health Concerns Assessment Noted Time PHQ-9 Depression Total Score: 0 09/07/19 24 3:15 PM EDT documented as of this encounter Care Teams Paver Operator Relationship Specialty Start Date End Date Name, MD Matt [address] [place] [address] PCP - General Family Medicine 02/21/22 Ni Gandhi RN [address] [place] [address] Registered Nurse Family Medicine 02/24/25 aRdha Borden 02/24/25 Estephanie Tan Service Advocate ContactChief Building Inspector 11/24/23 documented as of this encounter
--- OUTSIDE RECORDS SUMMARY | 2025-04-26 17:18 | XMS_ITS | Encounter Summary ---
Author Organization [employer] Address [address] [facility] 7t [place] [address] Care Team Providers Care Incinerator Plant Laborer Name Role Phone Name, Matt APPIAH Primary Care Provider [phone] Ni Gandhi RN Unavailable [phone] Radha Borden Unavailable Reason for Visit * Reason Onset Date Comments Med Refill 04/21/2025 Encounter Details Date Type Department Care Team (Late st Contact Info) Description 04/21/2025 Refill [facility] [address] [place], [place] [phone] Name, MD Matt [address] [place], [place] [phone] Insomnia, unspecified type Social History Tobacco Use [...] encounter Miscellaneous Notes * Telephone Encounter - Nohemi Leong LPN - 04/21/2025 10:33 AM EST Radio Engineer checked on 04.21.25 and last seen 03.14.25 * Telephone Encounter - Magdy Borden - 04/21/2025 10:24 AM EST TC from pt requesting medication refill. Medications needing refill :zolpidem (Ambien) 10 MG tablet To be sent to: [facility] - [place], [place] - [id number] - [place] - [address] documented in this encounter Plan of Treatment Upcoming Encounters Date Type Department Care Team (Late st Contact Info) Description 06/14/2025 11:30 AM EST Office Visit [facility] [address] [place], [place] [phone] Name, MD Matt [address] [place] [address] documented as of this encounter Visit Diagnoses Diagnosis Insomnia, unspecified type documented in this encounter Additional Health Concerns Assessment Noted Time PHQ-9 Depression Total Score: 0 09/29/20 25 10:51 AM EDT documented as of this encounter Care Teams Incinerator Plant Laborer Relationship Specialty Start Date End Date Name, MD Matt [address] [place] [address] PCP - General Family Medicine 02/21/22 Ni Gandhi RN [address] [place] [address] Registered Nurse Family Medicine 02/24/25 Radha Borden 02/24/25 Estephanie Tan Director Of ValuationPrecision Grinder 11/24/23 documented as of this encounter
--- OUTSIDE RECORDS SUMMARY | 2025-04-26 17:18 | XMS_ITS | Clinical Summary ---
Author Organization [address] [facility] Address [address] [place] [address] Phone Care Team Providers Care Registered Nurse Supervisor Name Role Phone Physician, Pcp Unknown Primary [...] 160-4.5 mcg/actuation inhaler INHALE JOHANN DOS STALIN DOS HAYDER AL D A 2 Active cetirizine (ZyrTEC) [...] 5 minutes then rinse off 4 Active silver sulfADIAZINE (Silvadene) 1 % cream Apply topically 1 (one) time each day. 50 g 5 026 Active gabapentin (NEURONTIN) 100 mg capsule Take 3 capsules (300 mg total) by mouth. 5 026 Active clotrimazole (LOTRIMIN) 1 % cream Apply topically 2 (two) times a day. 30 g 3 5 025 Active clotrimazole (LOTRIMIN) 1 % cream Apply [...] obesity with BMI of 4 0.0-44.9, adult ([facility] V24, [facility] V28) 03/16/2024 Chronic low back pain [...] She is requesting an open scanner at [facility] and I will follow-up with her once the images are available with further treatment options. Class 2 obesity 11/06/2023 Premenstrual symptom 05/23/2019 Kari esophagitis ([facility] V24, [facility] V28) 0 10/08/2018 Overview (03/16/2024): F/u GI [facility] [place] Helicobacter pylori (H. pylori) infection 2018 Overview (03/16/2024): F/u GI [facility] Seborrheic dermatitis 06/25/2018 Scalp psoriasis 04/13/2018 Hemorrhoids 06/04/2017 Overview (03/16/2024): Internal & external Nonalcoholic steatohepatitis (HURD) 06/04/2017 Insomnia 08/23/2015 Carpal tunnel syndrome 12/25/2014 Overview (03/16/2024): Bilateral - negative EMG at [place] 2014 Migraine 12/25/2014 Old IA (myocardial infarction) 12/25/2014 Overview (03/16/2024): 1998/ Dr Perez Osteoarthritis 12/25/2014 Overview (03/16/2024): Hands, knees, spine Tricuspid regurgitation 12/25/2014 Overview (03/16/2024): Mild tricuspid / mild pulmonic Fibromyalgia 10/16/2014 Psoriasis 10/16/2014 Asthma 08/07/2011 GERD (gastroesophageal reflux disease) 2 Overview (03/16/2024): H/o H.pylori x 3 Hyperlipidemia 08/07/2011 Hypertension 08/07/2011 Overview (03/16/2024): Follows with cardiology Type 2 diabetes mellitus wit h neurological manifestations, controlled ([facility] V24, [facility] V28) 08/07/2011 Encounters Date Type Department Care Team Description 04/04/2025 Telephone Neurosurgery [address] [phone] Reyna Laboy MD 04/03/2025 3:15 PM EDT Office Visit Orthopedic Surgery [facility] [address] [phone] Smooth Sharp DPM Dermatophytosis of nail (Primary Dx); Tinea pedis of both feet; Diabetic mononeuropathy simplex ([facility] V24, [facility] V28) 03/21/2025 3:30 PM EDT Office Visit [place] [address] [phone] Smooth Sharp DPM Dermatophytosis of nail (Primary Dx); Tinea pedis of both feet 03/20/[address] [phone] Keli Collado [place] 03/10/2025 1:45 PM EDT Office Visit [address] [phone] Reyna Laboy MD Esophageal dysphagia (Primary Dx); Chronic bilateral low back pain with right-sided sciatica 03/10/2025 1:26 PM EDT - 03/10/2025 11:59 PM EDT Hospital Encounter [facility] Xray [address] [place] [address] Arthrodesis status Discharge Disposition: Home or Self Care 03/06/2025 2:45 PM EDT Office Visit Orthopedic Surgery - [place] 250 175 [facility] [address] [place] [address] Smooth Sharp, DPM Ingrowing nail (Primary Dx); Dermatophytosis of nail; Diabetic mononeuropathy simplex ([facility] V24, [facility] V28); Tinea pedis of both feet from Last 3 Months Immunizations Immunization Administration Dates Next Due Hepatitis B (Zcrcnkl-U-Ddqav , Recombivax HB-Adult) 19yo and older 03/13/2009,02/16/2008,01/11/2008 [...] PROCEDURE: HISTORICAL NECK SURGERY; COMMENT: C5-6, C6-7 Dr. Benoit NAVARRO NECK SURGERY 03/01/2024 PROCEDURE: HISTORICAL NECK SURGERY; COMMENT: C4-5 ACDFDr. Laboy Medical History Medical History Date Comments Hypertension 08/07/2011 DX:Hypertension Asthma 08/07/2011 DX:Asthma Fibromyalgia DX:Fibromyalgia Psoriasis DX:Psoriasis Migraine DX:Migraine Type 2 diabetes mellitus wit h neurological manifestations, controlled ([facility] V24, [facility] V28) 08/07/2011 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, controlled ([facility]) Tricuspid regurgitation 12/25/2014 DX:Tricu spid regurgitation; COMMENT: Mild tricuspid / mild pulmonic Old [place] (myocardial infarction) 12/25/2014 D X:Old IA (myocardial infarction); COMMENT: 1998/ Dr Perez Hyperlipidemia [...] (CMS/HCC V24, CMS/HCC V28) 10/08/2018 DX:Kari esophagitis (HCC) ; COMMENT: F/u GI [facility] Helicobacter pylori [...] Care Team (Late st Contact Info) Description 05/04/2025 2:45 PM EST Office Visit Orthopedic Surgery [facility] [address] [phone] Smooth Sharp, DPM [address] [phone] Health Maintenance Due Date Last Done Comments Breast Cancer Screening 1970 Diabetes: Annual Foot Exam 1980 Diabetes: Annual Retina Eye Exam 1980 Pneumococcal Vaccine: 50+ Years (1 of 2 - PCV) 1989 RSV Immunization Adult Patients (1 - Risk 50-74 years 1-dose series) 2020 Zoster Vaccines (1 of 2) 2020 Hepatitis C Screening 05/17/2022 Social Influencers of Health Screening 05/17/2022 Diabetes: Annual Urine Albumin-Creatinine Ratio (uACR) 05/27/2022 02/18/2019 Cervical Cancer Screening: HPV 05/19/2024 05/19/2019 Depression Screening 06/15/2024 COVID-19 Vaccine ( season) 2025 01/18/2021, 12/21/2020 Influenza Vaccine (#1) 2025 Diabetes: Blood Sugar Control Test (HGBA1C) 09/11/2025 03/14/2025, 08/15/2024, 03/22/2024, Additional history exists Colorectal Cancer Screening: Colonoscopy 09/23/2025 09/24/2015 Diabetes: [...] Procedure Name Priority Date/Time Associated Diagnosis Comments EXTERNAL MRI REPORT Routine 03/29/2025 1 1:15 AM EDT XR CERVICAL SPINE 4-5 VIEWS Routine 03/10/2025 1:36 PM EDT Arthrodesis status ANNUAL BMP BLOOD TEST Routine 08/27/2019 HEMOGLOBIN A1C Routine 08/27/2019 HPV Routine 05/19/2019 URINE ALBUMIN CREATININE RATIO Routine 02/18/2019 LIPID PANEL Routine 02/18/2019 COLONOSCOPY Routine 09/24/2015 from Last 3 Months or Most Recently Relevant to Health Maintenance Results * External MRI Report (03/29/2025 11:15 AM EDT) Anatomical Region Laterality Modality Magnetic Resonan ce us Historical Provider MD ESPINOSA MRI PROCEDURES Final Result * XR Cervical Spine 4-5 Views (03/10/2025 [...] Range of motion is extremely limited. Code 28754 -------- FINAL REPORT -------- Dictated By: Rj Aguirre Dictated Date: 03/13/2025 07:53 ET Assigned Physician: Rj Aguirre Reviewed and Electronically Signed By: Rj Aguirre Signed Date: 03/13/2025 07:56 ET Workstation ID: [id number] Transcribed By: Self Edit Transcribed Date: 03/13/2025 [...] extension. Range ofmotion is extremely limited. Code 13479 -------- FINAL REPORT -------- Dictated By: Rj Aguirre Dictated Date: 03/13/2025 07:53 ET Assigned Physician: Rj Aguirre Reviewed and Electronically Signed By: Rj Aguirre Signed Date: 03/13/2025 07:56 ET Workstation ID: [id number] Transcribed By: Self Edit Transcribed Date: 03/13/2025 07:53 ET Result [facility] Reyna Laboy MD IMG XR PROCEDURES Final Result * Annual BMP Blood Test (08/27/2019) [facility] Annual BMP Blood Test abstracted Result [facility] Provider HEALTH MAINTENANCE Final Result * (ABNORMAL) Hemoglobin A1c (08/27/2019) [facility] Hemoglobin A1C 6.6(A) <=6.5 % Blood Venous blood specimen / Unknown Result [facility] Provider LAB BLOOD ORDERABLES Behzad l Result * Cervical Cancer Screening: HPV (05/19/2019) [facility] Cervical Cancer Screening: HPV negative, abstracted Result [facility] Provider HEALTH MAINTENANCE Final Result * Urine Albumin Creatinine Ratio (02/18/2019) [facility] Urine Albumin Creatinine Ratio abstracted Result [facility] Provider HEALTH MAINTENANCE Final Result * (ABNORMAL) Lipid panel (02/18/2019) [facility] LDL/HDL Ratio 7(A) 0 - 4 Triglycerides 443(A) 0 - 150 mg/dL Cholesterol 185 0 - 200 mg/dL HDL 27(A) >=40 mg/dL LDL Cholesterol 70 0 - 100 mg/dL Blood Venous blood specimen / Unknown Historical Provider LAB BLOOD ORDERABLES Behzad l Result * Colonoscopy (09/24/2015) Colonoscopy no interpretation , abstracted Anatomical Region Laterality Modality Other Historical Provider HEALTH MAINTENANCE Final Result from Last 3 Months or Most Recently Relevant to Health Maintenance Insurance MEDICAID - [place] Care Teams Registered Nurse Supervisor Relationship Specialty Start Date End Date Physician, Pcp Unknown PCP - General 03/10/25
--- OUTSIDE RECORDS SUMMARY | 2025-04-26 17:18 | XMS_ITS | Encounter Summary ---
Author Organization [employer] Address [address] [facility] 7t [place] [address] Care Team Providers Care Finisher Map And Chart Name Role Phone Name, Matt APPIAH Primary Care Provider [phone] Ni Gandhi RN Unavailable [phone] Radha Borden Unavailable Reason for Visit * Reason Onset Date Comments Durable Medical Equipment 04/06/2024 Encounter Details Date Type Department Care Team ([facility] st Contact Info) Description 04/06/2024 Telephone [facility] MED[facility] 230 [place], [place] [phone] Name, MD Matt [address] [place] [address] Durable Medical Equipment Social History Tobacco Use [...] Description 06/14/2025 11:30 AM EST Office Visit [facility] MEDIC[facility] [address] [place] [address] Name, MD Matt [address] [place] [address] documented as of this encounter Visit Diagnoses Not on filedocumented in this encounter Additional Health Concerns Assessment Noted Time PHQ-9 Depression Total Score: 0 09/07/19 24 3:15 PM EDT documented as of this encounter Care Teams Finisher Map And Chart Relationship Specialty Start Date End Date Name, MD Matt [address] [place] [address] PCP - General Family Medicine 02/21/22 Ni Gandhi RN [address] [place] [address] Registered Nurse Family Medicine 02/24/25 Radha Borden 02/24/25 Estephanie Tan Orthopedic AssistantIndustrial Equipment Mechanic 11/24/23 documented as of this encounter
--- OUTSIDE RECORDS SUMMARY | 2025-04-26 17:19 | XMS_ITS | Encounter Summary ---
Author Organization [employer] Address [address] [facility] 7t [place] [address] Care Team Providers Care Cable Television Program Director Name Role Phone Name, Matt APPIAH Primary Care Provider [phone] Ni Gandhi RN Unavailable [phone] Radha Borden Unavailable Reason for Visit * Reason Onset Date Comments Med Refill 09/24/2023 Encounter Details Date Type Department Care Team ([facility] st Contact Info) Description 09/24/[address] [facility] MEDICINE [address] [place], [place] [phone] Name, MD Matt [address] [place] [address] Med Refill Social History Tobacco Use Types [...] MG tablet To be sent to: [facility] - [place], [place] - [phone] - [place], [place] - [address] documented in this encounter Plan of Treatment Upcoming Encounters Date Type Department Care Team (Late st Contact Info) Description 06/14/2025 11:30 AM EST Office Visit [facility] MEDICINE [address] [place] [address] Name, MD Matt [address] [place] [address] documented as of this encounter Visit Diagnoses Not on filedocumented in this encounter Additional Health Concerns Assessment Noted Time PHQ-9 Depression Total Score: 0 09/07/19 24 3:15 PM EDT documented as of this encounter Care Teams Cable Television Program Director Relationship Specialty Start Date End Date Name, MD Matt [address] [place] [address] PCP - General Family Medicine 02/21/22 Ni Gandhi, SEBASTIAN [address] [place] [address] Registered Nurse Family Medicine 02/24/25 Radha Borden 02/24/25 Estephanie Tan Liquefaction Plant OperatorDrying Unit Felting Machine Operator 11/24/23 documented as of this encounter
--- OUTSIDE RECORDS SUMMARY | 2025-04-26 17:19 | XMS_ITS ---
Author Organization [employer] Address [address] [facility] 7t [place] [address] Care Team Providers Care Manager Change Name Role Phone Name, Matt APPIAH Primary Care Provider [phone] Ni Gandhi RN Unavailable [phone] Radha Borden Unavailable CHW Complex Status:Enrolled (Active) Start date:02/24/2025 Enrollment date:03/17/2025 Enrollment reason:ADT Feed Overview ADT- [facility] 02/23/25. Please outreach for enrollment. Case Team Name Relationship Phone Radha Borden(Responsible Staff) [phone] Continued Care and Services Coordination
--- OUTSIDE RECORDS SUMMARY | 2025-04-26 17:19 | XMS_ITS | Clinical Summary ---
Author Organization [employer] Address [address] [place] [address] Care Team Providers Care Milled Rice Broker Name Role Phone Name, Matt APPIAH Primary Care Provider [phone] Ni Gandhi RN Unavailable [phone] Radha Borden Unavailable Allergies Active Allergy [...] MEAL 180 tablet 1 02/04/20 25 Active gabapentin (Neurontin) 100 MG capsule Take 3 capsules (300 mg) by mouth at bedtime. 30 capsule 03/14/20 25 026 Active silver sulfADIAZINE (Silvadene) 1 % cream APPLY TO THE AFFECTED AREA ONCE DAILY Active zolpidem (Ambien) 10 MG tabletIndicatio ns:Insomnia, unspecified type Take 1 tablet (10 mg) by mouth at bedtime. for sleep 30 tablet 04/21/20 25 Active celecoxib (CeleBREX) 200 MG capsule Take 1 capsule (200 mg) by mouth if needed in the morning and at bedtime for moderate pain for up to 20 days. 40 capsule 2 03/14/20 25 025 zolpidem (Ambien) 10 MG tabletIndicatio ns:Insomnia, unspecified type TAKE 1 TABLET BY MOUTH AT BEDTIME FOR SLEEP 30 tablet 03/23/20 25 025 Discontinued(R eorder (will not trigger notification to Pharmacy)) Active Problems Problem Noted Date Diagnosed Date History of cervical spinal surgery 03/22/2024 Overview (03/22/2024): s/p C4-5 ACDF on 03/01/2024 C5-6, C6-7 ACDF with plating on 08/25/[address] Laboy at [facility] Class 2 obesity 11/06/2023 CLARA (generalized [...] agreed to referral. She requested referral in [facility]. Provided education around integrated medicine and the options of follow up BE's as needed. Provided contact information should questions or concerns arise. Plan: Farrah will engage in effective coping mechanisms to manage sxs. Referral will be placed for Ind Therapy and Psychiatrist at [facility], per her request. 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 Hemorrhoids 06/04/2017 Overview (11/06/2023): Internal & external Nonalcoholic steatohepatitis (HURD) 06/04/2017 Insomnia 08/23/2015 Carpal tunnel syndrome 12/25/2014 Overview (01/01/2023): Bilateral - negative EMG at [facility] 2014 Osteoarthritis 12/25/2014 Overview (01/01/2023): Hands, knees, spine Tricuspid regurgitation 12/25/2014 Overview (01/01/2023): Mild tricuspid / mild pulmonic Fibromyalgia 10/16/2014 Psoriasis 10/16/2014 Psoriatic arthritis ([facility]/HCC) 05/25/2012 Depressive disorder 12/08/2011 Migraine 12/08/2011 Degeneration [...] reflux disease) 2 Overview (01/01/2023): F/[place] [facility] [place] H.pylori x 3 Resolved Problems Problem Noted Date Diagnosed Date Resolved Date Rash 08/04/2024 08/15/2024 Assessment & Plan (08/04/2024 4:19 PM EST): Blood work ordered today, patient will be contacted with results I will refer her to dermatology Helicobacter pylori gastritis 10/29/2018 08/15/2024 Helicobacter pylori (H. pylori) infection 10/08/2018 08/15/2024 Overview (01/01/2023): F/[place] 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) 06/25/2018 03/0 08/2024 Foot callus 04/13/2018 07/08/2023 Onychomycosis 03/23/2018 07/08/2023 Old ID (myocardial infarction) 12/25/2014 11/06/2023 Overview (01/01/2023): 1998/ Dr Perez 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 07/08/2023 Other psoriasis and similar disorders 12/03/2011 07/08/2023 Encounters Date Type Department Care Team Description 04/25/2025 Patient Outreach [facility] [address] [place] [address] Name, MD Matt Care Coordination (SDWA f/u) 04/25/2025 Patient Outreach [facility] [address] [place] [address] Name, MD Matt Care Management (C3- f/u call [facility]) 04/21/2025 Refill [facility] [place] [address] Matt Wu MD Insomnia, unspecified type 04/11/2025 Patient Outreach [facility] [place] [address] Matt Wu MD Care Management (C3CM- f/u call) 04/10/2025 Patient Outreach [address] [place] [address] Matt Wu MD Care Coordination (SDOH f/u) 04/05/2025 Patient Outreach [address] [place] [address] Matt Wu MD 03/28/2025 Patient Outreach [address] [address] Matt Wu MD Care Management (C3CM- f/u call l[facility]) 03/22/2025 Refill [facility] [address] [place] [address] Matt Wu MD Insomnia, unspecified type 03/22/2025 Patient Outreach [address] [place] [address] Matt Wu MD Care Coordination (SDOH) 03/17/2025 Patient Outreach [address] [address] Matt Wu MD Care Coordination (SDOH f/u) 03/16/[address] [address] Matt Wu MD 03/16/[address] [address] Matt Wu MD 03/15/2025 Plan of Care Documentation [facility] [place] [address] 03/14/2025 1:00 PM EDT Office Visit [address] [address] Matt Wu MD Type 2 diabetes mellitus with neurological manifestations, controlled ([facility]/HCC) (Primary Dx); Lumbar back pain with radiculopathy affecting right lower extremity; Acute on chronic back pain; Vaccination refused by patient 03/14/2025 Travel 03/13/2025 Patient Outreach [address] [address] Matt Wu MD Care Management (C3- initial assessment/ enrollment) 03/02/2025 Patient Outreach [address] [address] Matt Wu MD Care Coordination (CM/CHW outreach) 03/02/2025 Patient Outreach [address] [address] Matt Wu MD 02/27/2025 Patient Outreach [address] [address] Matt Wu MD Care Coordination (CM/CHW outreach) 02/24/2025 Patient Outreach [address] [address] Matt Wu MD Care Coordination (CHW chart review) 02/24/2025 Patient Outreach [address] [address] Matt Wu MD Care Management ([facility]- chart review) 02/24/2025 Patient Outreach [address] [address] Matt Wu MD 02/23/2025 Orders Only GENERIC EXTERNAL DATA DEPARTMENT Provider, Generic External Data 02/20/[address] [address] Matt Wu MD Insomnia, unspecified type 02/03/[address] [address] Mica Liz MD Essential hypertension from Last 3 Months Immunizations Immunization Administration [...] Description 06/14/2025 11:30 AM EST Office Visit [facility] [address] [place] [address] Name, MD Matt [address] [place] [address] Health Maintenance Due Date Last Done Comments CT Colonography 1970 FIT DNA/Cologuard 1970 FIT 1970 FOBT 1970 Sigmoidoscopy 1970 Hepatitis A Vaccines (1 of 2 - Risk 2-dose series) 1989 Pneumococcal Vaccine: 50+ Years (1 of 2 - PCV) 1989 RSV Patients and Patients Aged 60 years or older (1 - Risk 50-74 years 1-dose series) 2020 Zoster Vaccines (1 of 2) 2020 SDOH Screening 12/17/2024 12/18/2023 COVID-19 Vaccine ( [...] 03/13/2025 Depression Screening 03/13/2026 03/13/2025, 03/13/20 25 Diabetes: Urine Protein Screening 03/14/2026 03/14/2025, 09/09/2023, 07/08/2023, Additional history exists Tobacco Screening 03/14/2026 03/14/2025 Cervical Cancer Screening 05/17/2026 Eye Exam 05/17/2026 05/17/2024 HPV/Cotest 05/17/2026 05/17/2021 Pap Smear 05/17/2026 05/17/2021 DTaP/Tdap/Td Vaccines (2 - Td or Tdap) 05/11/2027 05/11/2017, 03/18/2007, 03/18/2007 Colonoscopy 10/11/2031 10/10/2021 Colorectal Cancer Screening 10/11/2031 Hepatitis B Vaccines Completed 03/13/2009, 02/16/2008, 01/11/2008 [...] Procedure Name Priority Date/Time Associated Diagnosis Comments ALBUMIN, RANDOM URINE W/CREATININE Routine 03/14/2025 2:20 PM EDT Type 2 diabetes mellitus with neurological manifestations, controlled (CMS/HCC) POCT GLYCATED HEMOGLOBIN, TOTAL Routine 03/14/2025 1:14 PM EDT Type 2 diabetes mellitus with neurological manifestations, controlled (CMS/HCC) POCT GLUCOSE Routine 03/14/2025 1:13 PM EDT [...] TOMOSYNTHESIS BILATERAL Routine 05/27/2024 1:45 PM EST HM DIABETES EYE EXAM Routine 05/17/2024 HIV 1/2 ANTIGEN/ANTIBODY, FOURTH GENERATION W/RFL Routine 12/21/2023 12:36 PM EDT Type 2 diabetes mellitus with neurological manifestations, controlled (CMS/HCC) Unexplained night sweats PPD positive HEPATITIS PANEL, GENERAL Routine 05/26/2022 4:23 PM EST HM COLONOSCOPY Routine 10/10/2021 PAP/HPV Routine 05/17/2021 from Last 3 Months or Most Recently Relevant to Health Maintenance Results * Albumin, Random Urine W/Creatinine (03/14/2025 2:20 PM EDT) Creatinine, Urine 262.40 mg/dL [facility] Microalbumin Urine 18.0 mg/L [facility] Microalbum Creatinine Ratio Ur 6.8 <30 ug/mg cr [facility] Comment:Albumin/Creatinine R atio Reference Ranges: Normal: < 30 ug/mg creatinine Microalbuminuria: 30 - 300 ug/mg creatinineClinical Albuminuria: > 300 ug/mg creatinine Urine (Urine, Random) 03/14/2025 2:20 PM EDT 03/14/2025 4:06 PM EDT us Matt Wu MD LAB URINE ORDERABLES Final Resul t [facility] [address] [place] [phone] * (ABNORMAL) POCT Hgb A1c (03/14/2025 1:14 PM EDT) Hemoglobin A1C 6.7(A) 4.0 - 5.7 % QC Media Lot # [id number] Lot# Expiration Date [id number] Blood 03/14/2025 1:14 PM EDT Matt Wu MD POINT OF [...] AM EDT Narrative 02/28/2025 4:06 AM EDT [address] [address] [address] Scan Report Signed Patient: Farrah Yancey MR#: [id number] 3 : 1970 Acct:[id number] Age/Sex: 54 / F ADM Date: 02/27/25 Loc: HO.ED Attending Dr: Ordering Physician: Hiren Villegas PA-C Date of Service: 02/28/25 Procedure(s): CT abdomen pelvis w IV con Accession Number(s): [id number] cc: Hiren Villegas PA-C; Name,Matt APPIAH Report Number: [id number]: Total DLP = 712.00 mGy-cm Reason for [...] in OV> 02/28/25404 DD/ 3 TD/TT: 02/28/25403 Sanitary Engineer: Procedure Note Donotuseinterpreter, Image - 02/28/[address] [place] [address] [address] Scan Report Signed Patient: David Yancey#: [id number] 3 : 1970Acct:[id number] Age/Sex: 54 / FADM Date: 02/27/25 Loc: HO.ED Attending Dr: Ordering Physician: Hiren Villegas PA-C Date of Service: 02/28/25 Procedure(s): CT abdomen pelvis w IV con Accession Number(s): [id number] cc: Hiren Villegas PA-C; Name,Matt APPIAH Report Number: [id number]: Total DLP = 712.00 mGy-cm Reason for [...] in OV> 02/28/25404 DD/ 3 TD/TT: 02/28/25403 Sanitary Engineer: [facility] External Provider IMG CT PROCEDURES Edited Result - Final * US Pelvis Transvaginal (02/28/2025 2:50 AM EDT) Anatomical Region Laterality Modality Pelvis Ultrasound 02/28/2025 2:50 AM EDT Narrative 02/28/2025 2:51 AM EDT [place] [address] Ultrasound Report Signed Patient: Farrah Yancey MR#: [id number] 3 : 1970 Acct:[id number] Age/Sex: 54 / F ADM Date: 02/27/25 Loc: HO.ED Attending Dr: Ordering Physician: Hiren Villegas PA-C Date of Service: 02/28/25 Procedure(s): US pelvic and transvaginal Accession Number(s): [id number] cc: Hiren Villegas PA-C; Name,Matt APPIAH Reason for Exam: RLQ/suprapubic tender; Post-menopausal bleeding CLINICAL HISTORY: RLQ suprapubic tender; Post-menopausal bleeding US pelvis transabdominal and transvaginal Comparison: US - US PELVIC AND TRANSVAGINAL - 6/12/25 15:15 EDT Findings: Transabdominal scanning performed for [...] in OV> 02/28/25250 DD/ 9 TD/TT: 02/28/25249 Sanitary Engineer: Procedure Note Donotuseinterpreter, Image - 02/28/2025 [place] [address] Ultrasound Report Signed Patient: David Yancey#: [id number] 3 : 1970Acct:[id number] Age/Sex: 54 / FADM Date: 02/27/25 Loc: HO.ED Attending Dr: Ordering Physician: Hiren Villegas PA-C Date of Service: 02/28/25 Procedure(s): US pelvic and transvaginal Accession Number(s): [id number] cc: Hiren Villegas PA-C; Name,Matt APPIAH Reason [...] in OV> 02/28/25250 DD/ 9 TD/TT: 02/28/25249 Sanitary Engineer: us [facility] External Provider IMG US PROCEDURES Final Result * (ABNORMAL) CBC auto differential (02/23/2025 4:17 PM EDT) White Blood Count 9.4 4.8 - 10.8 X10*3/uL [facility] Red Blood Count 5.10 4.20 - 5.50 X10*6/uL [facility] Hemoglobin 13.5 12.0 - 16.0 g/dl [facility] Hematocrit 42.5 37.0 - 47.0 % [facility] Mean Corpuscular Volume 83.3 80.0 - 98.0 fL [facility] Mean Corpuscular Hemoglobin 26.5(L) 27.0 - 33.0 pg [facility] Mean Corpuscular HGB Conc 31.8 31.0 - 35.0 g/dl [facility] Red Cell Distribution Width 14.6 11.0 - 16.0 % [facility] Platelet Count 291 160 - 400 X10*3/uL [facility] Mean Platelet Volume 9.8 9.4 - 12.3 fL [facility] Neutrophils Percent Auto 58.1 45 - 73 % [facility] Imm Gran Pct Auto 0.2 0.0 - 0.4 % [facility] Lymphocytes Percent Auto 31.0 20 - 40 % [facility] Monocytes Percent Auto 8.4 2 - 11 % [facility] Eosinophils Percent Auto 1.7 0 - 4 % [facility] Basophils Percent Auto 0.6 0 - 2 % [facility] NRBC Pct Auto 0.0 0.0 - 0.2 /100WBC [facility] Neutrophils Absolute Auto 5.4 2.0 - 8.3 x10*3/uL [facility] Imm Gran Abs Auto 0.02 0.00 - 0.03 X10*3/uL [facility] Lymphocytes Absolute Auto 2.9 1.2 - 4.9 X10*3/uL [facility] Monocytes Absolute Auto 0.8 0.1 - 1.2 X10*3/uL [facility] Eosinophils Absolute Auto 0.2 0.0 - 0.4 X10*3/uL [facility] Basophils Absolute Auto 0.1 0.0 - 0.2 X10*3/uL [facility] NRBC Abs Auto 0.000 0.0 - 0.012 X10*3/uL [facility] 02/23/2025 4:17 PM EDT 02/23/2025 4:21 PM EDT Generic External Data Provider LAB BLOOD ORDERAB LES Final Result Performing Organization Address [facility] Co de Phone Number [facility] [address] [place] [address] [phone] * Magnesium (02/23/2025 4:17 PM EDT) Pathologist [facility] Magnesium 1.9 1.6 - 2.6 mg/dL [facility] 02/23/2025 4:17 PM EDT 02/23/2025 4:21 PM EDT [employer] acquired by [employer] External Data Provider LAB BLOOD ORDERAB LES Final Result Performing Organization Address [facility] Co de Phone Number [facility] [address] [place] [phone] * (ABNORMAL) Comprehensive Metabolic Panel (02/23/2025 4:17 PM EDT) Sodium 145 135 - 145 mmol/L [facility] Potassium 3.7 3.3 - 5.1 mmol/L [facility] Chloride 109(H) 96 - 108 mmol/L [facility] Carbon Dioxide 26 22 - 29 mmol/L [facility] Anion Gap 14 12 - 20 [facility] Urea Nitrogen (BUN) 15 9 - 16 mg/dL [facility] Creatinine, Serum 0.82 0.5 - 1.4 mg/dL [facility] Creatinine Clr Calc Pharmacy 103.0 [facility] Comment:Provided height and weight: 175.26 cm,108.862 kg.eGFR (calculated from the MDRD study equation) and eCrCl(calculated from the Cockcroft-Gault equation) are based ondifferent parameters and may not yield comparable results.If eCrCl result is absurd, please check patient'sheight/weight. Estimated Glomerular Filt Rate >60 [facility] Comment:Chronic Kidney Disea se: Estimated GFR < 60 mL/min/1.85c1Dmntua Kidney Disease: Estimated GFR < 15 mL/min/1.73m2 Glucose 121(H) 60 - 115 mg/dL [facility] Calcium 8.8 8.4 - 10.2 mg/dL [facility] Bilirubin, Total 0.9 0.0 - 1.0 mg/dL [facility] Aspartate Amino Transferase 43(H) 5 - 31 U/L [facility] Alanine Aminotransferase 43(H) 0 - 31 U/L [facility] Total Protein 7.1 6.5 - 8.0 g/dL [facility] Albumin Level 4.2 3.5 - 5.0 g/dL [facility] Alkaline Phosphatase 110 39 - 117 U/L [facility] 02/23/2025 4:17 PM EDT 02/23/2025 4:21 PM EDT us Generic External Data Provider LAB BLOOD ORDERAB LES Final Result [facility] [address] [place] [phone] * (ABNORMAL) Lipid Panel, Standard (09/19/2024 2:03 PM EDT) Triglycerides 129 <150 mg/dL [facility] Comment:Desirable Triglyceri de: less than 150 mg/dLBorderline High Triglyceride 150-199 mg/dLHigh Triglyceride: 200-499 mg/dLVery High Triglyceride: greater than or equal to 5OO mg/dL Cholesterol 98 <200 mg/dL [facility] Comment:Desirable Cholestero l: less than 200 mg/dLBorderline High Cholesterol: 200-239 mg/dLHigh Cholesterol: greater than 239 mg/dL LDL Cholesterol Calculated 34 <100 mg/dL [facility] Comment:Desirable LDL: less than 100 mg/dLNear Optimal/Above Optimal LDL: 110- 129 mg/dLBorderline High LDL: 130-159 mg/dLHigh LDL: 160-189 mg/dLVery High LDL: greater than or equal to 190 mg/dL HDL Cholesterol 39(L) >40 mg/dL [facility] Comment:Desirable HDL: great er than 40 mg/dL Note: This HDL assay may give artificially low results in patients with liver disease. 09/19/2024 2:03 PM EDT 09/19/2024 2:03 PM EDT us Generic External Data Provider LAB BLOOD ORDERAB LES Final Result [facility] [address] [place] [phone] * BI Mammogram Screening Tomosynthesis Bilateral (05/27/2024 1:45 PM EST) Anatomical Region Laterality Modality Breast Bilateral Mammography 05/27/2024 1:45 PM EST Narrative 06/06/2024 4:29 PM EST [facility] [address] [place] [address] Mammography Report Signed Patient: Farrah Yancey MR#: [id number] 3 : 1970 Acct:[id number] Age/Sex: 54 / F ADM Date: 05/27/24 Loc: SUSANNEO Attending Dr: Matt Wu MD Ordering Physician: Name,Matt MD Results: 1Negative Date of Service: 05/27/24 Follow Up: 1 Year From Orig inal Mammogram Procedure(s): MM tomosynthesis screening BI Accession Number(s): [id number] cc: Matt Wu MD EXAMINATION: MM SCREENING [...] 06/06/24 1626 DD/ 1345 TD/TT: 05/27/24 1408 Sanitary Engineer: Procedure Note Donotuseinterpreter, Image - 06/06/2024 [facility] [address] [place] [address] [place] [address] Mammography Report Signed Patient: Anup YanceyR#: [id number] 3 : 1970Acct:[id number] Age/Sex: 54 / FADM Date: 05/27/24 Loc: MAMMO Attending Dr: Matt Wu MD Ordering Physician: Matt Wu MDResults: 1Negative Date of Service: 05/27/24Follow Up: 1 Year From Orig inal Mammogram Procedure(s): MM tomosynthesis screening BI Accession Number(s): [id number] cc: NameMatt MD EXAMINATION: MM SCREENING DIGITAL BREAST TOMOSYNTHESIS, [...] 06/06/24 1626 DD/ 1345 TD/TT: 05/27/24 1408 Sanitary Engineer: Matt Wu MD IMG BI PROCEDURES Final Result * Hm Diabetes Eye Exam (05/17/2024) Eye Exam Normal Normal Historical Provider HEALTH MAINTENANCE Final Result * HIV-1/2 Antigen and Antibodies, Fourth Generation, with Reflexes (12/21/2023 12:36 PM EDT) HIV AB/AG Nonreactive Nonreactive [facility] Comment:HIV-1 p24 Ag and/or HIV-1/HIV-2 Ab not detected.A test result that is nonreactive does not exclude thepossibility of exposure to or infection with HIV-1 and/orHIV-2. Nonreactive results in this assay for individualswith prior exposure to HIV-1 and/or HIV-2 may be due toantigen and antibody levels that are below the limit ofdetection of this assay.The [employer] HIV Ag/Ab Combo assay result andsupplemental assay results should be interpreted inconjunction with the patient's clinical presentation,history and other laboratory results. If the results areinconsistent with clinical evidence, additional testing issuggested to confirm the result. Blood Venous blood specimen / Unknown 12/21/2023 12:36 PM EDT 12/21/2023 12:36 PM EDT Matt Wu MD LAB BLOOD ORDERABLES Final Resul t Performing Organization Address [facility]/ZIP Co de Phone Number [facility] [address] [place] [phone] * Hepatitis Panel, General (05/26/2022 4:23 PM EST) Hepatitis A IgM Nonreactive Nonreactive [facility] Comment:IgM antibodies to TORRES V not detected; does not exclude earlyacute or recovered HAV infection. ~Hepatitis B Surface Antibody NONREACTIVE Nonreactive [facility] Comment:Nonreactive: < 8.00 mIU/mL Hepatitis B Core Antibody Nonreactive Nonreactive [facility] Hepatitis C Antibody Nonreactive Nonreactive [facility] Comment:Antibodies to HCV no t detected; does not exclude early acuteHCV infection. Hepatitis B Surface Antigen Negative Negative [facility] 05/26/2022 4:23 PM EST 05/26/2022 4:23 PM EST [facility] External Provider LAB BLO OD ORDERABLES Final Result Performing Organization Address [facility]/ZIP Co de Phone Number [facility] [address] [place] [phone] * Colonoscopy (10/10/2021) Colonoscopy Normal Normal Historical Provider HEALTH MAINTENANCE Final Result * Pap Smear (05/17/2021) Pap Negative for intraephithelial lesion or malignancy Negative for intraephithelial lesion or malignancy, Other HPV Not Detected Undetected, Indeterminate, Quantitative, Not Detected us Historical Provider HEALTH MAINTENANCE Final Result from Last 3 Months or Most Recently Relevant to Health Maintenance Insurance [employer] C3 Care Teams Milled Rice Broker Relationship Specialty Start Date End Date Name, MD Matt [address] [place] [phone] PCP - General Family Medicine 02/21/22 Ni Gandhi, RN [address] [place] [phone] Registered Nurse Family Medicine 02/24/25 Radha Borden 02/24/25 Estephanie Tan Reeling And Tubing Machine OperatorBrush Worker 11/24/23
--- OUTSIDE RECORDS SUMMARY | 2025-04-26 17:19 | XMS_ITS ---
Author Organization [employer] Address [address] [facility] 7t [place] [address] Care Team Providers Care Cad Technician Name Role Phone Name, Matt APPIAH Primary Care Provider [phone] Ni Gandhi RN Unavailable [phone] Radha Borden Unavailable CM Complex Status:Enrolled (Active) Start date:02/24/2025 Enrollment date:03/15/2025 Enrollment reason:ADT Feed Overview [place]- [facility] [place]23/25 Case Team Name Relationship Phone Ni Gandhi RN(Responsible Staff) Registered Nurse [phone] Continued Care and Services Coordination
--- OUTSIDE RECORDS SUMMARY | 2025-04-26 17:19 | XMS_ITS | Encounter Summary ---
Author Organization [employer] Address [address] [facility] [address] [place] [address] Care Team Providers Care Coat Operator Insulator Name Role Phone Name, Matt APPIAH Primary Care Provider [phone] Ni Gandhi RN Unavailable [phone] Radha Borden Unavailable Encounter Details Date Type Department Care Team (Late st Contact Info) Description 08/05/2024 Orders Only [facility] [address] [place], [place] [phone] Yolande Knight MD [address] [place], [place] [phone] Social History Tobacco Use Types Packs/Day Years [...] 11:30 AM EST Office Visit [facility] [address] [place] [phone] Name, MD Matt [address] [place] [address] documented as of this encounter Visit Diagnoses Not on filedocumented in this encounter Additional Health Concerns Assessment Noted Time PHQ-9 Depression Total Score: 0 09/07/19 24 3:15 PM EDT documented as of this encounter Care Teams Coat Operator Insulator Relationship Specialty Start Date End Date NameMatt MD [address] [place] [address] PCP - General Family Medicine 02/21/22 Ni Gandhi, SEBASTIAN [address] [place] [phone] Registered Nurse Family Medicine 02/24/25 Radha Borden 02/24/25 Estephanie Tan Problem ManagerClinical Documentation Spec 11/24/23 documented as of this encounter
--- OUTSIDE RECORDS SUMMARY | 2025-04-26 17:19 | XMS_ITS | Encounter Summary ---
Author Organization [email or web address] Address [address] [facility] 7[address] [place] [address] Care Team Providers Care Supervisor Ovens Name Role Phone Name, Matt APPIAH Primary Care Provider Ni Gandhi RN Unavailable [phone] Radha Borden Unavailable Reason for Visit * Reason Onset Date Comments Care Coordination 11/24/2023 [id number] a ssessment Encounter Details Date Type Department Care Team ([facility] Contact Info) Description 11/24/2023 Telephone [facility] [address] [place] [address] Estephanie Tan, SEBASTIAN Care Coordination ([id number] assessment) Social History Tobacco Use Types Packs/Day [...] Member is a 53 year old female, Latvian speaking. Patient is alert andoriented x 3. [...] for her psoriasis. Reports she went to [facility] on 11/04/2023 for chest pain, dizziness, [...] able to repeat back to telegraphic typewriter repairer. A follow up call will be placed [...] Description 06/14/2025 11:30 AM EST Office Visit [facility] [address] [place] [id number] Name, MD Matt [address] [place] [id number] documented as of this encounter Visit Diagnoses Not on filedocumented in this encounter Additional Health Concerns Assessment Noted Time PHQ-9 Depression Total Score: 0 09/07/19 24 3:15 PM EDT documented as of this encounter Care Teams Supervisor Ovens Relationship Specialty Start Date End Date Name, MD Matt [address] [place] [address] PCP - General Family Medicine 02/21/22 Ni Gandhi RN [address] [place] [id number] Registered Nurse Family Medicine 02/24/25 Radha Borden 02/24/25 Estephanie Tan Riveter Portable MachineAutomobile Body Worker 11/24/23 documented as of this encounter
--- OUTSIDE RECORDS SUMMARY | 2025-04-26 17:19 | XMS_ITS | Clinical Summary ---
Author Organization [facility] Address [address] [address] Phone Care Team Providers Care Principal Architectural Firm Name Role Phone Name, Matt APPIAH Primary Care Provider [phone] Allergies Active Allergy Reactions Criticality Noted Date [...] tablet, 0 Refills, Maintenance, 08/21/21 8:47:00 EST, [facility]/pharmacy #[id number], Partial fill upon patient request if [...] ears) (1 of 1 - PCV) 2020 RSV VACCINE (1 - Risk 50-74 years 1-dose series) 2020 ZOSTER VACCINES (1 of 2) 2020 INFLUENZA VACCINE (#1) 2025 COVID-19 VACCINE (1 - 2024-2 6 season) 2025 Adult Td,Tdap Booster 05/11/2027 05/11/2017 HEPATITIS A VACCINES Aged Out No long er eligible based on patient's age to complete this topic HIB VACCINES Aged Out No longer eligi ble based on patient's age to complete this topic IPV VACCINES Aged Out No longer eligi ble based on patient's age to complete this topic MENINGOCOCCAL VACCINES (ACWY) Aged Out No longer eligible based on patient's age to complete this topic MENINGOCOCCAL VACCINES (B) Aged Out N o longer eligible based on patient's age to complete this topic Medical Devices Not on file [place] [address] [address] [address] [address] [place] [address] [employer] Care Teams Principal Architectural Firm Relationship Specialty Start Date End Date Name, MD Matt [address] [place] [id number] PCP - General Geriatric Psychiatry 04/16/22 Additional Source Comments The information contained in this document represents components of the legal health record. It is not the complete legal health record.[facility]
--- OUTSIDE RECORDS SUMMARY | 2025-04-26 17:19 | XMS_ITS | Encounter Summary ---
Author Organization [employer] Address [address] [facility] 7t [place] [address] Care Team Providers Care Senior Search Marketing Analyst Name Role Phone Name, Matt APPIAH Primary Care Provider [phone] Ni Gandhi RN Unavailable [phone] Radha Borden Unavailable Reason for Visit * Reason Onset Date Comments triage 09/18/2022 Encounter Details Date Type Department Care Team ([facility] st Contact Info) Description 09/18/2022 Telephone [facility] MED[facility]INE [address] [place], [place] [id number] Name, MD Matt [address] [place], [place] [phone] triage Social History Tobacco Use Types Packs/Day [...] The caller accepted this outcome pt speaks persian documented in this encounter Plan of Treatment Upcoming Encounters Date Type Department Care Team (Late st Contact Info) Description 06/14/2025 11:30 AM EST Office Visit [facility]INE [address] [place] [address] Name, MD Matt [address] [place] [address] documented as of this encounter Visit Diagnoses Not on filedocumented in this encounter Care Teams Senior Search Marketing Analyst Relationship Specialty Start Date End Date Name, MD Matt [address] [place] [address] PCP - General Family Medicine 02/21/22 Ni Gandhi RN [address] [place] [address] Registered Nurse Family Medicine 02/24/25 Radha Borden 02/24/25 Estephanie Tan Escrow AgentCasino Porter 11/24/23 documented as of this encounter
== END 2025-04-26 14:52 | disposition home or self-care (01) ==
LOC: HO.HGS 14:01
PROVIDERS: PCP Internal Medicine Geriatric Medicine; Visit Provider Surgery
DX: Z80.41 Family history of malignant neoplasm of ovary (principal)
CPT/HCPCS: 99213

== ENCOUNTER → 2025-04-26 14:01 | Outpatient (BNVA) | payer MEDICAID, SELFPAY | PROVIDERS: PCP Internal Medicine Geriatric Medicine; Visit Provider Surgery | DX: Z71.83 Encounter for nonprocreative genetic counseling (principal); Z80.41 Family history of malignant neoplasm of ovary; Z80.3 Family history of malignant neoplasm of breast | CPT/HCPCS: 99212 ==

== ENCOUNTER 2025-06-01 15:55 | Emergency (ER) | payer MEDICAID, SELFPAY ==
--- NOTE | ~2025-06-01 | XR_ITS ---
CLINICAL HISTORY: CP, SOB 2 view chest x-ray. Comparison: 05/31/2024 Findings: No consolidation or effusion. Cardiac and mediastinal contours are stable. Bones unremarkable. Impression: 1. No acute pulmonary disease. This document has been electronically signed by: Geremias Barrow MD on 06/01/2025 17:35:01
[2025-06-01 16:56] VITALS: BP 193/86; PULSE 97; RESP 16; TEMP 37.6; O2SAT 96; BMI 37.9
--- NOTE | 2025-06-01 16:58 | ED.GENADULT ---
HPI - General Adult General Chief complaint: Upper Respiratory Symptoms Stated complaint: COVID Symptoms Time Seen by Provider: 06/01/25 21:57 Source: patient, family, RN notes reviewed and dairy helper Mode of arrival: ambulatory Limitations: language barrier History of Present Illness ED Provider: David HPI narrative: 55-year-old female with past medical history significant for coronary artery disease, constipation, vertigo, asthma, arthritis, GERD, type 2 diabetes, morbid obesity, hypertension presents for evaluation of flu-like symptoms. She reports headaches, body aches, chills, nausea started yesterday. Her is here with similar symptoms. She denies any significant shortness of breath or chest pain. No other complaints or concerns at this time Related Data Home Medications ?Medication ?Instructions ?Recorded ?Confirmed albuterol sulfate 90 mcg/actuation 2 puff PO QID PRN 03/21/20 02/23/25 aerosol inhaler calcipotriene 0.005 % scalp topical 02/04/21 02/23/25 solution albuterol sulfate 2.5 mg/3 mL 2.5 mg continuous nebulization QID 12/06/21 02/23/25 (0.083 %) solution for nebulization PRN shortness of breath or wheezing sumatriptan succinate 50 mg tablet 50 mg PO Q2-4H PRN migraine 03/05/23 02/23/25 headache carvedilol 6.25 mg tablet 6.25 mg PO BID 08/18/23 02/23/25 hydroquinone 4 % topical cream 1 appl topical DAILY 12/01/23 02/23/25 empagliflozin 12.5 mg-metformin 1 tab PO DAILY 09/16/24 02/23/25 500 mg tablet (Synjardy) Previous Rx's ?Medication ?Instructions ?Recorded acetaminophen 500 mg tablet 500 mg PO Q6H PRN pain or fever 10/30/20 (Tylenol Extra Strength) #20 tabs blood pressure monitor #1 ea 05/06/21 blood-glucose meter (FreeStyle #1 ea 05/06/21 Lite Meter kit) lancets 28 gauge #100 ea 05/06/21 loratadine 10 mg tablet (Claritin) 10 mg PO DAILY PRN allergy 08/23/21 symptoms 90 days #90 tabs meclizine 25 mg tablet 25 mg PO DAILY PRN dizziness 15 10/21/21 days #15 tabs RIGHT WRIST SPLINT (large) #1 ea 12/06/21 zolpidem 10 mg tablet 10 mg PO BEDTIME PRN insomnia 90 01/21/22 days #90 tabs blood sugar diagnostic (FreeStyle #100 strips 01/24/22 Lite Strips) hydrochlorothiazide 25 mg tablet 25 mg PO DAILY #90 tabs 12/20/22 fluticasone furoate 200 1 inh inhalation DAILY #1 ea 05/06/24 mcg-vilanterol 25 mcg/dose inhalation powder (Breo Ellipta) aspirin 81 mg tablet,delayed 81 mg PO DAILY #90 tabs 06/21/24 release miconazole nitrate 2 % vaginal 1 appful vaginal BEDTIME 7 days 10/26/24 cream (Monistat 7) #45 grams bisacodyl 5 mg tablet,delayed 10 mg (2 x 5 mg) PO BEDTIME 30 02/02/25 release (Dulcolax (bisacodyl)) days #60 tabs esomeprazole magnesium 40 mg 40 mg PO BID #60 caps 02/02/25 capsule,delayed release sucralfate 1 gram tablet (Carafate) 2 g (2 x 1 gram) PO DAILY #60 tabs 02/02/25 betamethasone valerate 0.1 % 1 appl topical BID skin irritation 02/23/25 topical cream #45 grams fluconazole 150 mg tablet 150 mg PO DAILY 1 day #1 tab 02/27/25 Allergies Allergy/AdvReac Type Severity Reaction Status Date / Time acetaminophen (From Vicodin) Allergy Intermediate Palpitations, Verified 06/01/25 16:57 Itch amoxicillin (Prevpac) Allergy Intermediate itchy Verified 06/01/25 16:57 throat hydrocodone (From Vicodin) Allergy Intermediate Palpitations, Verified 06/01/25 16:57 Itch ibuprofen (From Motrin) Allergy Intermediate UPSET Verified 06/01/25 16:57 STOMACH, abdominal pain lansoprazole (Prevpac) Allergy Intermediate itchy Verified 06/01/25 16:57 throat morphine (MORPHINE) Allergy Intermediate PALPATATIONS, Verified 06/01/25 16:57 PANIC ATTACKS, nauseas,panic attack, heart palpitations omeprazole (From PRILOSEC) Allergy Intermediate ITCHY Verified 06/01/25 16:57 THROAT pravastatin (PRAVASTATIN) Allergy Intermediate UNKNOWN Verified 06/01/25 16:57 rosuvastatin (From CRESTOR) Allergy Intermediate UNKNOWN Verified 06/01/25 16:57 terbinafine (TERBINAFINE) Allergy Intermediate UNKNOWN Verified 06/01/25 16:57 atorvastatin (From LIPITOR) Allergy Unknown UNKNOWN Verified 06/01/25 16:57 clarithromycin (From BIAXIN) AdvReac Intermediate ABD PAIN, Verified 06/01/25 16:57 DIARRHEA gabapentin (GABAPENTIN) AdvReac Intermediate UNKNOWN, Verified 06/01/25 16:57 nausea, dizziness levofloxacin (LEVOFLOXACIN) AdvReac Intermediate PALPITATION Verified 06/01/25 16:57 S tylenol with codeine Allergy Unknown fast heart Uncoded 06/01/25 16:57 rate Review of Systems Constitutional: Constitutional: Reports body ache(s), Reports chills, Reports fever(s), Reports headache(s) and Denies increased appetite Eyes: Eyes: Denies blurry vision ENT: Denies dizziness and Reports headache(s) Cardiovascular: Cardiovascular: Denies chest pain and Denies dyspnea on exertion Respiratory: Respiratory: Denies cough and Denies dyspnea on exertion Gastrointestinal: Gastrointestinal: Denies abdominal pain, Reports nausea and Denies vomiting Musculoskeletal: Musculoskeletal: Denies back pain Integumentary/Breasts: Skin/Breast: Denies rash Neurologic: Denies dizziness and Reports headache(s) [facility] Past Medical History Medical History (Updated 06/01/25 @ 22:13 by Danilo Hernandez) Family history of ovarian cancer FH: breast cancer Pelvic pain Encounter for well woman exam with routine gynecological exam Umbilical hernia Scalp mass Irritable bowel syndrome with diarrhea Allergic rhinitis Lumbar degenerative disc disease Breast pain during Carpal tunnel syndrome Arthritis Morbid obesity with BMI of 40.0-44.9, adult Insomnia Diabetes mellitus Benign essential hypertension Polyarthralgia Fibromyalgia Mixed hyperlipidemia Candidiasis of mouth and esophagus Thoracic spondylosis Surgical History Hx of dilation and curettage History of endometrial ablation Hx of colonoscopy History of esophagogastroduodenoscopy (EGD) History of dermoid cyst excision History of excision of lamina of cervical vertebra for decompression of spinal cord H/O hemorrhoidectomy History of appendectomy Family History Family History Father NIDDY (non-insulin dependent diabetes mellitus in young) Cardiovascular disease Obesity Cancer of unknown origin Colon cancer Mother CAD (coronary artery disease) NIDDY (non-insulin dependent diabetes mellitus in young) Brother Schizophrenia Degenerative disc disease H/O lymph node cancer Sister Breast cancer Colon cancer Paternal Grandmother Ovarian cancer, Onset Age: 45 Daughter Fibromyalgia Hypertension Cancer of unknown origin Ovarian cancer Other Mental health problem Social History Social History Household Members: None Housing: Apartment Alcohol intake: never Patient Tobacco Use Status: Never used Tobacco e-Cigarette/Vaping Use: Never Used Second Hand Smoke Exposure: No Advance Directives: No Advance Directives Information Provided: No service: No Current occupational status: disabled 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 Sexual orientation: Straight/Heterosexual Gender identity: Female Cognitive needs: No Hearing needs: Yes Vision needs: Yes Physical Exam ED Vital Signs: Vital Signs - 24 hr 06/01/25 16:56 06/01/25 22:37 Temperature 99.6 F 97.7 F Pulse Rate 97 97 Respiratory Rate 16 20 Blood Pressure 193/86 H 178/81 H Pulse Oximetry 96 95 Oxygen Delivery Method Room Air Room Air BMI result Body Mass Index 37.9 Const General: healthy appearing, comfortable, no acute distress, alert and awake Nutritional Appearance: well nourished Orientation/consciousness: patient oriented x3 HENMT Head: Yes normocephalic and Yes atraumatic Eyes Eyelids: Yes eyelids normal Conjunctivae: conjunctivae normal Sclerae: sclerae normal Corneas: corneas normal Pupils: Equal, round and reactive pupils present EOM: EOMs intact bilaterally Neck Neck: Yes full ROM Resp Effort & Inspection: normal respiratory effort, able to speak in complete sentences, no audible wheezes and not labored Auscultation: clear to auscultation bilaterally GI Inspection: No distended Palpation (GI): Soft to palpation, not firm, nontender, no guarding and not rigid Skin General skin exam: no rashes or lesions noted and elasticity normal Neuro General: patient oriented x3 Cranial nerves: Yes Equal, round and reactive pupils present and Yes Bilaterally intact EOM present Cognition (Neuro): normal cognition Extrem Other: Moving all extremities well without any obvious deformities Course Course Course Narrative: This is an RME: Additional HPI, ROS, PE not included below will be deferred to primary provider. RME assessment and note performed by: Ирина Figueredo PA-C This is a [id number], with a hx of DM, HTN, HLD, who presents to the ER with complaints of headache, body aches, abdominal pain since yesterday. Recent exposure to COVID. Plan: Labs, Viral swabs, further ER eval needed Medical Decision Making Medical Decision Making [facility] Narrative: 55-year-old female with a past medical history as above presents for evaluation of flu-like symptoms. Her vital signs are stable. She did have labs, EKG, chest x-ray performed, all of which was reassuring. Her vital signs remained stable, she did test positive for COVID-19 which explains her symptoms. She will be discharged with symptomatic care. Differential Diagnosis Differential Diagnoses: The differential diagnosis associated with the presentation includes COVID-19 Influenza Bronchitis Pneumonia Metabolic abnormality Lab Data [facility] Lab Attestation statement: I reviewed the patient's lab results. No leukocytosis or anemia. Normal platelet count. No electrolyte abnormalities warranting dimension. Chronic transaminitis consistent with a baseline. The patient is positive for COVID-19 06/01/25 17:13 06/01/25 17:13 Labs: Lab Results 06/01/25 Range/Units 17:13 WBC 8.9 (4.8-10.8) X10*3/uL RBC 4.82 (4.20-5.50) X10*6/uL Hgb 13.3 (12.0-16.0) g/dl Hct 40.4 (37.0-47.0) % MCV 83.8 (80.0-98.0) fL MCH 27.6 (27.0-33.0) pg MCHC 32.9 (31.0-35.0) g/dl RDW 14.4 (11.0-16.0) % Plt Count 260 (160-400) X10*3/uL MPV 10.1 (9.4-12.3) fL Immature Gran % (Auto) 0.7 H (0.0-0.4) % Neut % (Auto) 80.8 H (45-73) % Lymph % (Auto) 4.8 L (20-40) % Swift % (Auto) 12.1 H (2-11) % Eos % (Auto) 1.0 (0-4) % Baso % (Auto) 0.6 (0-2) % Lymph # (Auto) 0.4 L (1.2-4.9) X10*3/uL Swift # (Auto) 1.1 (0.1-1.2) X10*3/uL Eos # (Auto) 0.1 (0.0-0.4) X10*3/uL Baso # (Auto) 0.1 (0.0-0.2) X10*3/uL Abs Immat Gran (auto) 0.06 H (0.00-0.03) X10*3/uL Absolute Neuts (auto) 7.2 (2.0-8.3) x10*3/uL Absolute Nucleated RBC 0.000 (0.0-0.012) X10*3/uL Nucleated RBC % (auto) 0.0 (0.0-0.2) /100WBC Sodium 139 (135-145) mmol/L Potassium 3.7 (3.3-5.1) mmol/L Chloride 103 (96-108) mmol/L Carbon Dioxide 27 (22-29) mmol/L Anion Gap 13 (12-20) BUN 12 (9-16) mg/dL Creatinine 0.79 (0.5-1.4) mg/dL Estim Creat Clear Calc 89.3 Estimated GFR > 60 Random Glucose 152 H (60-115) mg/dL Calcium 9.4 (8.4-10.2) mg/dL Magnesium 1.9 (1.6-2.6) mg/dL Total Bilirubin 0.8 (0.0-1.0) mg/dL Direct Bilirubin 0.2 (0.0-0.5) mg/dL AST 52 H (5-31) U/L ALT 40 H (0-31) U/L Alkaline Phosphatase 107 (39-117) U/L Troponin I High Sens < 2.7 (<3.5-17.0) ng/L Total Protein 7.8 (6.5-8.0) g/dL Albumin 4.5 (3.5-5.0) g/dL Lipase 26 (8-78) U/L Influenza Type A (PCR) NEGATIVE (Negative) Influenza Type B (PCR) NEGATIVE (Negative) RSV RNA Qual (PCR) NEGATIVE (Negative) SARS-CoV-2 RNA (RT-PCR) POSITIVE A (Negative) Radiology Impression Discussion of test interpretation with radiology: I have reviewed the radiologist's reading. Radiologist Impression: Normal sinus rhythm with a rate of 83 beats minute. Prolonged QT at 477 Discharge Plan Discharge Clinical Impression: COVID-19 Patient Disposition: Home, Self-Care Instructions: COVID-19 (Coronavirus Disease 2019) (ED) Additional Instructions: You tested positive for COVID-19 pain The remainder of the workup was largely reassuring. Follow up with your primary doctor, return for new or worsening symptoms Prescriptions: No Action (DME) blood pressure monitor Kit See Rx Instructions .Route Qty: 1 0RF Rx Instructions: As directed (DME) lancets 28 gauge misc See Rx Instructions topical DIRECTED Qty: 100 0RF Rx Instructions: Test once daily (DME) blood-glucose meter [FreeStyle Lite Meter] Kit See Rx Instructions .Route Qty: 1 0RF Rx Instructions: As directed meclizine 25 mg tablet 25 mg PO DAILY PRN (Reason: dizziness) 15 Days Qty: 15 2RF zolpidem 10 mg tablet 10 mg PO BEDTIME PRN (Reason: insomnia) 90 Days Qty: 90 0RF (DME) FreeStyle Lite Strips Strip See Rx Instructions .ROUTE .COMPLEX Qty: 100 0RF Dose Instruction: USE TODOS [place] [facility] Rx Instructions: USE TODOS [place] hydrochlorothiazide 25 mg tablet 25 mg PO DAILY Qty: 90 0RF aspirin 81 mg tablet,delayed release (DR/EC) 81 mg PO DAILY Qty: 90 3RF miconazole nitrate [Monistat 7] 2 % cream 1 appful vaginal BEDTIME 7 Days Qty: 45 0RF fluconazole 150 mg tablet 150 mg PO DAILY 1 Days Qty: 1 0RF acetaminophen [Tylenol Extra Strength] 500 mg tablet 500 mg PO Q6H PRN (Reason: pain or fever) Qty: 20 0RF calcipotriene 0.005 % solution topical loratadine [Claritin] 10 mg tablet 10 mg PO DAILY PRN (Reason: allergy symptoms) 90 Days Qty: 90 3RF albuterol sulfate 2.5 mg /3 mL (0.083 %) solution for nebulization 2.5 mg continuous nebulization QID PRN (Reason: shortness of breath or wheezing) (DME) RIGHT WRIST SPLINT (large) large See Rx Instructions .Route .MEDSUPPLY Qty: 1 0RF Rx Instructions: As directed albuterol sulfate 90 mcg/actuation HFA aerosol inhaler 2 puff PO QID PRN sumatriptan succinate 50 mg tablet 50 mg PO Q2-4H PRN (Reason: migraine headache) Rx Instructions: do not exceed 4 doses per 24 hrs Synjardy 12.5-500 mg tablet 1 tab PO DAILY carvedilol 6.25 mg tablet 6.25 mg PO BID betamethasone valerate 0.1 % cream 1 appl topical BID Qty: 45 0RF Rx Instructions: use for 1-2 weeks until symptoms clear hydroquinone 4 % cream 1 appl topical DAILY fluticasone furoate-vilanterol [Breo Ellipta] 200-25 mcg/dose blister with device 1 inh inhalation DAILY Qty: 1 6RF bisacodyl [Dulcolax (bisacodyl)] 5 mg tablet,delayed release (DR/EC) 10 mg PO BEDTIME 30 Days Qty: 60 6RF esomeprazole magnesium 40 mg capsule,delayed release(DR/EC) 40 mg PO BID Qty: 60 6RF sucralfate [Carafate] 1 gram tablet 2 g PO DAILY Qty: 60 6RF Interventions: ED Discharge Assessment Last Done: 06/01/25 22:37 Discharge Date/Time: 06/01/25 22:39 Print Language: [place] Citizen
--- NOTE | 2025-06-01 16:59 | ECG_ITS ---
Test Reason : CP Blood Pressure : */* mmHG Vent. Rate : 83 BPM Atrial Rate : 83 BPM P-R Int : 178 ms QRS Dur : 90 ms QT Int : 406 ms P-R-T Axes : 10 -14 -1 degrees QTcB Int : 477 ms Normal sinus rhythm Moderate voltage criteria for LVH, may be normal variant ( R in aVL , Chip product ) Nonspecific T wave abnormality Prolonged QT Abnormal ECG When compared with ECG of 31-May-2024 16:27, No significant change was found Referred By: Ирина Figueredo Electronically Signed By: Niles Charlton
[2025-06-01 17:21] LABS: MANUAL DIFF FLAG NO
[2025-06-01 17:43] LABS: Alanine Aminotransferase 40 U/L (0-31); Albumin Level 4.5 g/dL (3.5-5.0); Alkaline Phosphatase 107 U/L (39-117); Anion Gap 13 (12-20); Aspartate Amino Transferase 52 U/L (5-31); Blood Urea Nitrogen 12 mg/dL (9-16); Calcium 9.4 mg/dL (8.4-10.2); Carbon Dioxide 27 mmol/L (22-29); Chloride 103 mmol/L (96-108); Creatinine Clr Calc Pharmacy 89.3; Estimated Glomerular Filt Rate > 60; Lipase 26 U/L (8-78); Magnesium 1.9 mg/dL (1.6-2.6); Potassium 3.7 mmol/L (3.3-5.1); Sodium 139 mmol/L (135-145); Total Protein 7.8 g/dL (6.5-8.0)
[2025-06-01 17:46] LABS: Hematocrit 40.4 % (37.0-47.0); Hemoglobin 13.3 g/dl (12.0-16.0); Imm Gran Abs Auto 0.06 X10*3/uL (0.00-0.03); Imm Gran Pct Auto 0.7 % (0.0-0.4); Lymphocytes Absolute Auto 0.4 X10*3/uL (1.2-4.9); Mean Corpuscular HGB Conc 32.9 g/dl (31.0-35.0); Mean Corpuscular Hemoglobin 27.6 pg (27.0-33.0); Mean Corpuscular Volume 83.8 fL (80.0-98.0); NRBC Abs Auto 0.000 X10*3/uL (0.0-0.012); NRBC Pct Auto 0.0 /100WBC (0.0-0.2); Platelet Count 260 X10*3/uL (160-400); Red Blood Count 4.82 X10*6/uL (4.20-5.50); White Blood Count 8.9 X10*3/uL (4.8-10.8)
[2025-06-01 17:56] LABS: Troponin-I High Sensitivity < 2.7 ng/L (<3.5-17.0)
[2025-06-01 18:07] LABS: Resp Syncy Virus RNA Qual PCR NEGATIVE (Negative); SARS COV2 PCR INHOUSE POSITIVE (Negative)
--- OUTSIDE RECORDS SUMMARY | 2025-06-01 21:53 | XMS_ITS | Encounter Summary ---
Author Organization [employer] Address [address] [facility] 7t [place] [address] Care Team Providers Care Installation Specialist Name Role Phone Name, Matt APPIAH Primary Care Provider [phone] Ni Gandhi RN Unavailable [phone] Radha Borden Unavailable Reason for Visit * Reason Onset Date Comments Med Refill 05/22/2025 Encounter Details Date Type Department Care Team ([facility] st Contact Info) Description 05/22/2025 Telephone [facility] [address] [place], [place] [phone] Name, MD Matt [address] [place] [address] Med Refill Social History Tobacco Use Types [...] Telephone Encounter - Cecilia Champagne LPN - 05/22/2025 12:08 PM EST Coreg was sent to [facility] on 02/03/25 90 day supply with 1 refill and Hydrochlorothiazide isto soon for refill. * Telephone Encounter - Tonya Pike - 05/22/2025 12:04 PM EST TC from pt requesting medication refill. Medications needing refill : - hydroCHLOROthiazide (HYDRODiuril) 25 MG tablet - carvedilol (Coreg) 6.25 MG tablet To be sent to: - [facility] - [place], [place] - [phone] - [place] - [address] documented in this encounter Plan of Treatment Upcoming Encounters Date Type Department Care Team (Late st Contact Info) Description 06/14/2025 11:30 AM EST Office Visit [facility] [address] [place] [address] Name, MD Matt [address] [place], [place] [phone] documented as of this encounter Goals Goal Patient Goal Type Associated Problems Recent Progress Patient-Stated? Author Help patients manage their type 2 diabetes Care Plan Help patients manage their type 2 diabetes No Tonya Gonzalez Weekly blood pressure task Care Plan Weekly blood pressure task No Colon Tonya Pike Help patients manage their type 2 diabetes Care Plan Help patients manage their type 2 diabetes No Tonya Gonzalez Patient has chronic kidney disease Care Plan Patient has chronic kidney disease No Tonya Gonzalez Weekly blood pressure task Care Plan Weekly blood pressure task No Tonya Gonzalez Patient has chronic kidney disease Care Plan Patient has chronic kidney disease No Tonya Gonzalez Weekly blood pressure task Care Plan Weekly blood pressure task No Cecilia Champagne LPN Weekly blood pressure task Care Plan Weekly blood pressure task No Cecilia Champagne LPN Patient has chronic kidney disease Care Plan Patient has chronic kidney disease No Cecilia Champagne LPN Patient has chronic kidney disease Care Plan Patient has chronic kidney disease No Cecilia Champagne LPN Weekly blood pressure task Care Plan Weekly blood pressure task No Ni Gandhi RN Weekly blood pressure task Care Plan Weekly blood pressure task No Ni Gandhi RN Patient has chronic kidney disease Care Plan Patient has chronic kidney disease No Ni Gandhi RN Patient has chronic kidney disease Care Plan Patient has chronic kidney disease No Ni Gandhi RN Weekly blood pressure task Care Plan Weekly blood pressure task No Radha Borden Weekly blood pressure task Care Plan Weekly blood pressure task No Radha Borden Patient has chronic kidney disease Care Plan Patient has chronic kidney disease No Radha Borden Patient has chronic kidney disease Care Plan Patient has chronic kidney disease No Radha Borden Weekly blood pressure task Care Plan Weekly blood pressure task No Tonya Gonzalez Weekly blood pressure task Care Plan Weekly blood pressure task No Tonya Gonzalez Patient has chronic kidney disease Care Plan Patient has chronic kidney disease No Tonya Gonzalez Patient has chronic kidney disease Care Plan Patient has chronic kidney disease No Tonya Gonzalez Weekly blood pressure task Care Plan Weekly blood pressure task No Cecilia Champagne LPN Weekly blood pressure task Care Plan Weekly blood pressure task No Ihsan Cecilia, COMMUTER TRAIN OPERATOR Patient has chronic kidney disease Care Plan Patient has chronic kidney disease Cecilia Coles LPN Patient has chronic kidney disease Care Plan Patient has chronic kidney disease Cecilia Coles LPN documented as of this encounter Visit Diagnoses Not on filedocumented in this encounter Additional Health Concerns Active Problems Noted Date Diagnosed Date Help patients manage their type 2 diabetes 05/02 Weekly blood pressure task 05/02/2025 Help patients manage their type 2 diabetes 05/02 Patient has chronic kidney disease 05/02/2025 Weekly blood pressure task 05/02/2025 Patient has chronic kidney disease 05/02/2025 Weekly blood pressure task 05/02/2025 Weekly blood pressure task 05/02/2025 Patient has chronic kidney disease 05/02/2025 Patient has chronic kidney disease 05/02/2025 Weekly blood pressure task 05/09/2025 Weekly blood pressure task 05/09/2025 Patient has chronic kidney disease 05/09/2025 Patient has chronic kidney disease 05/09/2025 Weekly blood pressure task 05/09/2025 Weekly blood pressure task 05/09/2025 Patient has chronic kidney disease 05/09/2025 Patient has chronic kidney disease 05/09/2025 Weekly blood pressure task 05/22/2025 Weekly blood pressure task 05/22/2025 Patient has chronic kidney disease 05/22/2025 Patient has chronic kidney disease 05/22/2025 Weekly blood pressure task 05/22/2025 Weekly blood pressure task 05/22/2025 Patient has chronic kidney disease 05/22/2025 Patient has chronic kidney disease 05/22/2025 Assessment Noted Time PHQ-9 Depression Total Score: 0 03/13/20 10:51 AM EDT documented as of this encounter Care Teams Installation Specialist Relationship Specialty Start Date End Date Name, MD Matt [address] [place] [address] PCP - General Family Medicine 02/21/22 Ni Gandhi RN [address] [place] [address] Registered Nurse Family Medicine 02/24/25 Radha Borden 02/24/25 Estephanie Tan Water Conservation SpecialistSeed District Sales Manager 11/24/23 documented as of this encounter
--- OUTSIDE RECORDS SUMMARY | 2025-06-01 21:53 | XMS_ITS | Encounter Summary ---
Author Organization [employer] Address [address] [facility] 7t [place] [address] Care Team Providers Care Cut Out Stitcher Name Role Phone Name, Matt APPIAH Primary Care Provider [phone] Ni Gandhi RN Unavailable [phone] Radha Borden Unavailable Reason for Visit * Reason Onset Date Comments Nurse Triage 06/01/2025 Encounter Details Date Type Department Care Team ([facility] st Contact Info) Description 06/01/[address] [facility] [address] [place], [place] [phone] Name, MD Matt [address] [place] [address] Nurse Triage Social History Tobacco Use Types [...] encounter Miscellaneous Notes * Telephone Encounter - Allie Colbert RN - 06/01/2025 2:52 PM EST TC placed to pt via [employer] international bank manager (Nano ID#[id number]) for triage. Pt reports the baby had COVID 19 and they were exposed. Pt reports they believe they believe they have a fever. Pt reports chills, headache, body aches, pain in hands, sore throat, rib pain, mild SOB, intermittent dizziness. Pt denies chest pain, blurred vision. Pt does not have a thermometer to take their temperature. Pt reports mild dizziness that comes and goes. Pt reports onset of symptoms yesterday. Pt reports BP is 173/101.Advised pt to seek ED evaluation now. Pt reports they will go to [facility] ED now for evaluation. Pt advised to contact office upon discharge. Pt agreeable to plan and is seeking ED evaluation now. Message forwarded to PCP team for status check and ED follow up PRN. Protocols Used (2): Blood Pressure - High (Adult), COVID-19 - Diagnosed or Suspected (Adult) Disposition for Call (Nurse Override): Go to ED Now Override Reason: Nurse judgment Protocol Used: Blood Pressure - High (Adult) Protocol-Based Disposition: Go to ED Now Positive Triage Question: * Systolic BP >= 160 OR Diastolic >= 100, and any cardiac (e.g., breathing difficulty, chest pain) or neurologic symptoms (e.g., new-onset blurred or double vision) * All higher-acuity triage questions were negative. Care Advice Discussed: * Reasons To Call Back - Headache, blurred vision, difficulty talking, or difficulty walking occurs - Chest pain or difficulty breathing occurs - You want to go into the office for a blood pressure check - You become worse Protocol Used: COVID-19 - Diagnosed or Suspected (Adult) Protocol-Based Disposition: Discuss with PCP and Callback by Nurse within 1 Hour Positive Triage Question: * Mild difficulty breathing (e.g., minimal/no SOB at rest, SOB with walking, pulse < 100) * All higher-acuity triage questions were negative. Care Advice Discussed: * Reasons To Call Back - Fever over 103 F (39.4 C) - Fever lasts over 3 days - Fever returns after being gone for 24 hours - Chest pain or difficulty breathing occurs - Cough or other symptoms last more than 3 weeks - You become worse * Telephone Encounter - Janey Fernandez - 06/01/2025 12:39 PM EST Symptoms: Headache, Sore Throat, COVID-19 Exposure (No Symptoms) Outcome: Schedule an urgent appointment (within 4 hours) or talk to a nurse or provider soon Reason: Getting worse The caller accepted this outcome. Contact pt at [phone] (nepali) documented in this encounter Plan of Treatment Upcoming Encounters Date Type Department Care Team (Late st Contact Info) Description 06/14/2025 11:30 AM EST Office Visit [facility] [address] [place] [address] Name, MD Matt [address] [place] [address] documented as of this encounter Goals Goal [...] Plan Weekly blood pressure task No Ni Gandhi, SEBASTIAN Patient has chronic kidney disease Care Plan [...] Care Plan Weekly blood pressure task No Janey Madrid Weekly blood pressure task Care Plan Weekly blood pressure task No Janey Madrid Patient has chronic kidney disease Care Plan Patient has chronic kidney disease No Janey Madrid Patient has chronic kidney disease Care Plan Patient has chronic kidney disease No Janey Madrid documented as of this encounter Visit Diagnoses [...] kidney disease 05/22/2025 Weekly blood pressure task 05/25/2025 Weekly blood pressure task 05/25/2025 Patient has chronic kidney disease 05/25/2025 Patient has chronic kidney disease 05/25/2025 Weekly blood pressure task 05/25/2025 Weekly blood pressure task 05/25/2025 Patient has chronic kidney disease 05/25/2025 Patient has chronic kidney disease 05/25/2025 Weekly blood pressure task 06/01/2025 Weekly blood pressure task 06/01/2025 Patient has chronic kidney disease 06/01/2025 Patient has chronic kidney disease 06/01/2025 Assessment Noted Time PHQ-9 Depression Total Score: 0 03/13/20 10:51 AM EDT documented as of this encounter Care Teams Cut Out Stitcher Relationship Specialty Start Date End Date Name, MD Matt [address] [place] [address] PCP - General Family Medicine 02/21/22 Ni Gandhi, SEBASTIAN [address] [place] [address] Registered Nurse Family Medicine 02/24/25 Radha Borden 02/24/25 Estephanie Tan Seo EngineerFrame Cleaner 11/24/23 documented as of this encounter
--- OUTSIDE RECORDS SUMMARY | 2025-06-01 21:53 | XMS_ITS | Data Portability ---
Author Organization [place] - [facility], Allergy Address [address] [facility] [address] [place] [address] Care Team Providers Care Welding Machine Operator Submerged Arc Name Role Phone YOLANDA VANEGAS Referring Provider [phone] Assessment Encounter Date Assessment Date Assessment LastModified [...] for amplification. Recommend she follow up with [facility], and discussed hearing aids would help [...] Organization Details Recorded Time Dizziness and giddiness 481417329 Active 2017 Dizziness and giddiness ; Note: Date Diagnosed : 02/11/2018 2:44 PM (R42) Not Available [facility] 4 03:04:54 Headache 33152268 Active 2017 Headache, unspecifi ed; Note: Changed from R51 to R51.9 (07/19/2021 2:06 PM) , Date Diagnosed : 02/11/2018 2:44 PM (R51) Not Available [facility] 4 03:04:55 Gastroeso phageal reflux disease without esophagit is 430137011 Active 2017 Gastro-es ophageal reflux disease without esophagit is; Note: Date Diagnosed : 03/05/2018 1:19 PM (K21.9) Not Available [facility] 4 03:04:53 Cough 91449602 Active 2017 Cough; Note: Date Diagnosed : 03/05/2018 1:16 PM (R05) Not Available [facility] 4 03:04:55 Sensorine ural hearing loss of bilateral ears 761832124 Active 2020 Sensorine ural hearing loss, bilateral ; Note: Date Diagnosed : 01/10/2021 2:50 PM (H90.3) Not Available [facility] 4 03:04:55 Migraine 21567714 Active 2020 Other migraine, not intractab le, without status migrainos us; Note: Date Diagnosed : 1 4:10 PM (G43.809) Not Available [facility] 4 03:04:56 Referred otalgia of left ear 68670589401 58377 Active 2023 MARISSA CARCAMO PA-C [address] [facility],[place] [address], [place], [address] , [facility] - [facility] 4 12:01:45 Bilateral tinnitus 34827929668 02 Active 2023 MARISSA CARCAMO PA-C [address] [facility],[place] [address], [place], [address] , [facility] - [facility] 4 12:01:52 Problem Notes None recorded. Procedures Surgical History Date Name Laterality Status Provider Name and Address Organization Details Recorded Time 024 Air [employer] Speech Audio with Tymps - 08069, 08791 & 67908 completed SHAHLA SLOAN [address] [facility],[place] [address], [place], [address], [facility] - [facility] 05/27/2024 11:03:21 hemorrhoidectomy completed Mica Horner [place] - [facility] 05/27/2024 10:56:11 Appendectomy completed Mica Horner [facility] 05/27/2024 10:56:15 Imaging Results None recorded. Procedure Notes None recorded. Medical Equipment None Reported. Allergies Allergen ID Allergen Name Allergen Category Reaction Reaction Severity Criticality Documentation Date Start Date Code Code System Note Provider Name and Address Organization Details Recorded Time 17786 gabapenti n medicatio n other Not available Not available 10/27/2023 15214 RxNorm React ion: unkno wn, unspe cifie d;; Not Available [facility] 4 00:48:25 69378 terbinafi ne medicatio n other Not available Not available 10/27/2023 04879 RxNorm React ion: unkno wn, unspe cifie d;; Not Available [facility] 4 00:48:25 45910 Lipitor medicatio n other Not available Not available 10/27/2023 72815 5 RxNorm React ion: unkno wn, unspe cifie d;; Not Available [facility] 4 00:48:25 42555 Crestor medicatio n other Not available Not available 10/27/2023 48670 4 RxNorm React ion: unkno wn, unspe cifie d;; Not Available [facility] 4 00:48:34 78637 sodium medicatio n other Not available Not available 10/27/2023 9853 RxNorm React ion: unkno wn, unspe cifie d;; Not Available [facility] 4 00:48:41 02604 Biaxin medicatio n other Not available Not available 10/27/2023 71418 9 RxNorm React ion: unkno wn, unspe cifie d;; Not Available [facility] 4 00:48:42 18903 Motrin medicatio n other Not available Not available 10/27/202344950 8 RxNorm React ion: unkno wn, unspe cifie d;; Not Available [facility] 4 00:48:53 96577 morphine medicatio n other Not available Not available 10/27/2023 7052 RxNorm React ion: unkno wn, unspe cifie d;; Not Available [facility] 4 00:48:59 71752 acetamino phen / hydrocodo ne medicatio n other Not available Not available 10/27/2023 27329 2 RxNorm React ion: unkno wn, unspe cifie d;; Not Available [facility] 4 00:49:06 78352 pravastat in medicatio n other Not available Not available 10/27/2023 90880 RxNorm React ion: unkno wn, unspe cifie d;; Not Available [facility] 4 00:49:07 Medications Name Sig Start Date Stop Date Status Note LastModified by Organization Details LastModified Time nystatin 100,000 unit/mL oral suspensio n 05/27 completed Medicati on ID: [id number] D uration Value: 30 Brand Name: nystatin [...] Alcohol Pads 05/27 completed Medicati on ID: [id number] D uration Value: 30 Brand Name: Alcohol [...] mg tablet 05/27 completed Medicati on ID: [id number] D uration Value: 30 Brand Name: hank avila Send Method: E-Prescr ibed Sub s Allowed: subs [place] Speci al Instruct ion: TAKE ONE TABLET BY MOUTH 2 (two) times a day WITH A MEAL [facility] Steffi me: carvedil ol Not [...] mg tablet 05/27 completed Medicati on ID: [id number] D uration Value: 28 Brand Name: zolpidem [...] ating tablet 05/27 completed Medicati on ID: [id number] D uration Value: 30 Brand Name: bree [...] elayed release 05/27 completed Medicati on ID: [id number] D uration Value: 30 Brand Name: donald [...] unit) capsule 2017 active Medicati on ID: 595502 D uration Value: 30 Brand Name: D3 Send Method: E-Prescr ibed Sub s Allowed: subs [place] Speci al Instruct ion: TAKE ONE CAPSULE BY MOUTH DAILY Me dication GenericN louie: D3-2000 Not Available Not Available Not Available Easy Comfort Lancets 30 gauge 05/27 completed Medicati on ID: [id number] D uration Value: 30 Brand Name: Easy [...] ICD10 Code Diagnosis IMO Codes Diagnosis Note [id number] MARISSA CARCAMO PA-C [facility] [address] [address] 05/27/2024 10:49:53 05/27/2024 11:53:18 Sensorineural hearing loss of bilateral ears [id number] H90.3 Right Ear:Normal hearing through 2K Hz sloping to a profound SNHL with good speech discrimina tion.Type A tympanogra m.Left Ear:Normal hearing through 2K Hz sloping to a profound SNHL with good speech discrimina tion.Type A tympanogra m. Referred o talgia of left ear [id number] 939160 H92.02 Bilateral tinnitus 36437 80437 102 H93.13 Health Concerns Section Related Observation LastModified by Organization Detai ls LastModified Time None Recorded Concern Status LastModified by Organization Details LastModified Time None Recorded Advance Directives Directive None Recorded Payers Insurance Date Sequence Insurance Name Policy Number Policy Juárez Covered Member ID Juárez Member ID Guarantor Name 05/18/2024 2 [facility] NET PLAN (MEDICAID HMO) OSVALDO Yancey [id number] Farrah Yancey 05/27/2024 1 [place] [facility] Farrah Bc [id number] Farrah Bc 05/05/2024 1 [place] [facility] Farrah Yancey [id number] Farrah Bc Notes Date Note Type Note [...] caused pruritus. The amplification was dispensed by roustabout pusher in [place]. Denies otorrhea or dizziness. Denies prior history of ear infections or ear surgeries. No history of loud noise exposure. No Qtip use. History of migraine. MIGUEL NATH MD [address] [place] [address], [place], [address], [place] - [facility] 05/28/2024 13:57:56 OBGyn Episode No OBEpisode recorded.
--- OUTSIDE RECORDS SUMMARY | 2025-06-01 21:53 | XMS_ITS | Encounter Summary ---
Author Organization [employer] Address [address] [facility] 7t [place] [address] Care Team Providers Care Micro Photographer Name Role Phone Name, Matt APPIAH Primary Care Provider [phone] Ni Gandhi RN Unavailable [phone] Radha Borden Unavailable Encounter Details Date Type Department Care Team (Late st Contact Info) Description 08/05/2024 Orders Only [facility] [address] [place], [place] [phone] Yolande Knight MD [address] [place], [place] [phone] Social History Tobacco Use Types Packs/Day Years [...] Description 06/14/2025 11:30 AM EST Office Visit [facility] [address] [place] [address] Name, MD Matt [address] [place] [address] documented as of this encounter Visit Diagnoses Not on filedocumented in this encounter Additional Health Concerns Assessment Noted Time PHQ-9 Depression Total Score: 0 09/07/19 24 3:15 PM EDT documented as of this encounter Care Teams Micro Photographer Relationship Specialty Start Date End Date NameMatt MD [address] [place] [address] PCP - General Family Medicine 02/21/22 Ni Gandhi, SEBASTIAN [address] [place] [address] Registered Nurse Family Medicine 02/24/25 Radha Borden 02/24/25 Estephanie Tan Wind Turbine Mechanical EngineerChair Mender 11/24/23 documented as of this encounter
--- OUTSIDE RECORDS SUMMARY | 2025-06-01 21:53 | XMS_ITS | Clinical Summary ---
Author Organization [employer] Address [address] [facility] 7t [place] [address] Care Team Providers Care Precision Structural Metal Fitter Name Role Phone Name, Matt APPIAH Primary Care Provider [phone] Ni Gandhi RN Unavailable [phone] Radha Borden Unavailable Allergies Active Allergy [...] organization. budesonide-formo terol (Symbicort) 160-4.5 MCG/ACT inhaler 02/01/20 22 Active [...] 24 Active fluticasone (Flonase) 50 MCG/ACT nasal sprayIndications :Acute cough,Seasonal allergies SPRAY TWICE IN EACH NOSTRIL ONCE DAILY IN THE MORNING. shake gently. Before first use, prime pump. After use, clean tip and replace cap 48 g 12/31/19 24 Active cetirizine (ZyrTEC) 10 MG tabletIndication s:Acute cough,Seasonal allergies TAKE 1 TABLET BY MOUTH ONCE DAILY IN THE MORNING 90 tablet 12/31/19 24 Active albuterol (2.5 MG/3ML) 0.083% nebulizer solution INHALE 1 VIAL VIA NEBULIZER 4 TIMES A DAY NEEDED FOR SHORTNESS OF BREATH OR WHEEZING FOR 30 DAYS 75 mL 11 04/06/20 24 Active aspirin (Aspirin Low Dose) 81 MG EC tabletIndication s:Essential hypertension TAKE 1 TABLET BY MOUTH ONCE DAILY 90 tablet 06/16/19 25 Active mometasone (Elocon) 0.1 % ointment Apply topically Once per day. 45 g 2 12/01/19 25 026 Active hydroCHLOROthiaz gray (HYDRODiuril) 25 MG tabletIndication s:Hypertension, unspecified type TAKE 1 TABLET BY MOUTH ONCE DAILY 90 tablet 1 01/06/20 25 Active carvedilol (Coreg) 6.25 MG tabletIndication s:Essential hypertension TAKE 1 TABLET BY MOUTH two (2) times a day WITH A MEAL 180 tablet 1 02/04/20 25 Active gabapentin (Neurontin) 100 MG capsule Take 3 capsules (300 mg) by mouth at bedtime. 30 capsule 03/14/20 25 026 Active silver sulfADIAZINE (Silvadene) 1 % cream APPLY TO THE AFFECTED AREA ONCE DAILY Active FREESTYLE LITE test stripIndications :Type 2 diabetes mellitus with neurological manifestations, controlled (HCC) USE TO TEST FINGER STICK BLOOD SUGAR ONCE DAILY 100 strip 11 5 5:01 PM EST 05/02/20 25 Active zolpidem (Ambien) 10 MG tabletIndication s:Insomnia, unspecified type TAKE 1 TABLET BY MOUTH EVERY NIGHT AT BEDTIME FOR SLEEP 30 tablet 5 4:19 PM EST 05/22/20 25 Active Synjardy 12.5-500 MG TAKE 1 TABLET BY MOUTH two (2) times a day (WITH BREAKFAST AND DINNER) 60 tablet 11 5 4:19 PM EST 05/22/20 25 Active Synjardy 12.5-500 MG TAKE 1 TABLET BY MOUTH two (2) times a day (WITH BREAKFAST, AND WITH DINNER) 180 tablet 3 05/20/20 24 025 Discontinued zolpidem (Ambien) 10 MG tabletIndication s:Insomnia, unspecified type Take 1 tablet (10 mg) by mouth at bedtime. for sleep 30 tablet 04/21/20 25 025 Discontinued Active Problems Problem Noted Date Diagnosed Date History of cervical spinal surgery 03/22/2024 Overview (03/22/2024): s/p C4-5 ACDF on 03/01/2024 C5-6, C6-7 ACDF with plating on 08/25/[address] Laboy at [facility] Class 2 obesity 11/06/2023 CLARA (generalized anxiety [...] agreed to referral. She requested referral in [facility]. Provided education around integrated medicine and [...] Overview (01/01/2023): Bilateral - negative EMG at [place] 2014 Osteoarthritis 12/25/2014 Overview (01/01/2023): Hands, knees, [...] reflux disease) 2 Overview (01/01/2023): F/u GI [facility] H/o H.pylori x 3 Resolved Problems Problem Noted Date Diagnosed Date Resolved Date Rash 08/04/2024 08/15/2024 Assessment & Plan (08/04/2024 4:19 PM EST): Blood work ordered today, patient will be contacted with results I will refer her to dermatology Helicobacter pylori gastritis 10/29/2018 08/15/2024 Helicobacter pylori (H. pylori) infection 10/08/2018 08/15/2024 Overview (01/01/2023): F/u GI 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 [address] [place] [address] NameMatt MD Nurse Triage 05/25/2025 Patient Outreach [address] [address] Name, MD Matt Care Coordination (CHW follow up) 05/25/2025 Patient Outreach [address] [place] [address] Matt Wu MD Care Management (C3CM- f/u call lvm) 05/22/[address] [facility] [address] [place] [address] Matt Wu MD Med Refill 05/22/[address] [facility] [address] [place] [phone] Matt Wu MD Insomnia, unspecified type 05/09/2025 Patient Outreach [address] [address] Matt Wu MD Care Coordination (SDOH f/u) 05/09/2025 Patient Outreach [address] [address] Matt Wu MD Care Management (C3CM- f/u call) 05/02/[address] [facility] [address] [place] [address] Matt Wu MD Med Refill 05/02/[address] [facility] [address] [place] [address] Matt Wu MD Type 2 diabetes mellitus with neurological manifestations, controlled ([facility]) 04/25/2025 Patient Outreach [address] [address] Matt Wu MD Care Coordination (SDOH f/u) 04/25/2025 Patient Outreach [address] [address] Matt Wu MD Care Management (C3CM- f/u call lv) 04/21/[address] [facility] [address] [place] [phone] Matt Wu MD Insomnia, unspecified type 04/11/2025 Patient Outreach [address] [address] Matt Wu MD Care Management (C3CM- f/u call) 04/10/2025 Patient Outreach [address] [address] Matt Wu MD Care Coordination (SDOH f/u) 04/05/2025 Patient Outreach [facility] [place] [address] Matt Wu MD 03/28/2025 Patient Outreach [address] [place] [address] Matt Wu MD Care Management ([facility]- f/u call lvm) 03/22/2025 Refill [facility] [place] [address] Matt Wu MD Insomnia, unspecified type 03/22/2025 Patient Outreach [address] [place] [address] Matt Wu MD Care Coordination (SDOH) 03/17/2025 Patient Outreach [address] [address] Matt Wu MD Care Coordination ([facility] f/u) 03/16/[address] [address] Matt Wu MD 03/16/[address] [address] Matt Wu MD 03/15/2025 Plan of Care Documentation [address] [address] 03/14/2025 1:00 PM EDT Office Visit [address] [address] Matt Wu MD Type 2 diabetes mellitus with neurological manifestations, controlled (CMS/[facility]) (Primary Dx); Lumbar back pain with radiculopathy affecting right lower extremity; Acute on chronic back pain; Vaccination refused by patient 03/14/2025 Travel 03/13/2025 Patient Outreach [facility] [place] [address] Matt Wu MD Care Management ([facility]- initial assessment/ enrollment) 03/02/2025 Patient Outreach [address] [address] Matt Wu MD Care Coordination (CM/CHW outreach) 03/02/2025 Patient Outreach [address] [address] Matt Wu, MD from Last 3 Months Immunizations Immunization Administration [...] 06/14/2025 11:30 AM EST Office Visit [facility] [address] [place] [address] Name, MD Matt [address] [place] [phone] Health Maintenance Due Date Last Done Comments [...] 03/13/2026 03/13/2025 Depression Screening 03/13/2026 03/13/2025, 03/13/20 Diabetes: Urine Protein Screening 03/14/2026 03/14/2025, 09/09/2023, 09/09/2023, Additional history exists Tobacco Screening 03/14/2026 03/14/2025 Cervical Cancer Screening 05/17/2026 Eye Exam 05/17/2026 05/17/2024 HPV/Cotest 05/17/2026 05/17/2021 Pap Smear 05/17/2026 05/17/2021 DTaP/Tdap/Td Vaccines (2 - Td or Tdap) 05/11/2027 05/11/2017, 03/18/2007, 03/18/2007 Colonoscopy 10/11/2031 10/10/2021, 10/10/2021 Colorectal Cancer Screening 10/11/2031 Hepatitis B [...] on patient's age to complete this topic Goals Goal Patient Goal Type Associated Problems Recent Progress Patient-Stated? Author Help patients manage their type 2 diabetes Care Plan Help patients manage their type 2 diabetes No Colon Pike, Tonya Weekly blood pressure task Care Plan Weekly blood pressure task No Colon Shahzad Tonya Help patients manage their type 2 diabetes Care Plan Help patients manage their type 2 diabetes No Colon Tonya Pike Patient has chronic kidney disease Care Plan Patient has chronic kidney disease No Colon Sandra Pikela Weekly blood pressure task Care Plan Weekly blood pressure task No Colon Tonya Pike Patient has chronic kidney disease Care Plan Patient has chronic kidney disease No Colon Tonya Pike Weekly blood pressure task Care Plan Weekly [...] blood pressure task No Colon Tonya Pike Patient has chronic kidney disease Care Plan Patient has chronic kidney disease No Tonya Gonzalez Patient has chronic kidney disease Care Plan Patient has chronic kidney disease No Colon Tonya Pike Weekly blood pressure task Care Plan Weekly [...] has chronic kidney disease No Janey Madrid Procedures Procedure Name Priority Date/Time Associated Diagnosis [...] 4:23 PM EST HM COLONOSCOPY Routine 10/10/2021 HM PAP/HPV Routine 05/17/2021 from Last 3 Months or Most Recently Relevant to Health Maintenance Results * Albumin, Random Urine W/Creatinine (03/14/2025 2:20 PM EDT) Creatinine, Urine 262.40 mg/dL [facility] Microalbumin Urine 18.0 mg/L [facility] Microalbum Creatinine Ratio Ur 6.8 <30 ug/mg cr [facility] Comment:Albumin/Creatinine R atio Reference Ranges: Normal: < 30 ug/mg creatinine Microalbuminuria: 30 - 300 ug/mg creatinineClinical Albuminuria: > 300 ug/mg creatinine Urine (Urine, Random) 03/14/2025 2:20 PM EDT 03/14/2025 4:06 PM EDT us Matt Wu MD LAB URINE ORDERABLES Final Resul t [facility] [address] [place] [phone] * (ABNORMAL) POCT Hgb A1c (03/14/2025 1:14 PM EDT) Hemoglobin A1C 6.7(A) 4.0 - 5.7 % QC Media Lot # [id number] Lot# Expiration Date 33531 Blood 03/14/2025 1:14 PM EDT us Matt Wu MD POINT OF CARE TEST ENTER/EDIT OR DERABLES Final Result * POCT Glucose (03/14/2025 1:13 PM EDT) Glucose Blood, POC 133 60 - 200 mg/dL QC Media Lot # [id number] Lot# Expiration Date Blood Capillary blood specimen / Unknown 03/14/2025 1:13 PM EDT us Matt Name POINT OF CARE TEST ENTER/EDIT OR DERABLES Final Result * (ABNORMAL) Lipid Panel, Standard (09/19/2024 2:03 PM EDT) Triglycerides 129 <150 mg/dL [facility] Comment:Desirable Triglyceri de: less than 150 mg/dLBorderline High Triglyceride 150-199 mg/dLHigh Triglyceride: 200-499 mg/dLVery High Triglyceride: greater than or equal to 5OO mg/dL Cholesterol 98 <200 mg/dL [facility] Comment:Desirable Cholestero l: less than 200 mg/dLBorderline High Cholesterol: 200-239 mg/dLHigh Cholesterol: greater than 239 mg/dL LDL Cholesterol Calculated 34 <100 mg/dL [facility] Comment:Desirable LDL: less than 100 mg/dLNear Optimal/Above Optimal LDL: 110- 129 mg/dLBorderline High LDL: 130-159 mg/dLHigh LDL: 160-189 mg/dLVery High LDL: greater than or equal to 190 mg/dL HDL Cholesterol 39(L) >40 mg/dL [facility] Comment:Desirable HDL: great er than 40 mg/dL Note: This HDL assay may give artificially low results in patients with liver disease. 09/19/2024 2:03 PM EDT 09/19/2024 2:03 PM EDT us Generic External Data Provider LAB BLOOD ORDERAB LES Final Result [facility] [address] [place] [phone] * BI Mammogram Screening Tomosynthesis Bilateral (05/27/2024 1:45 PM EST) Anatomical Region Laterality Modality Breast Bilateral Mammography 05/27/2024 1:45 PM EST Narrative 06/06/2024 4:29 PM EST [address] [place] [address] Mammography Report Signed Patient: Farrah Yancey MR#: [id number] 3 : 1970 Acct:[id number] Age/Sex: 54 / F ADM Date: 05/27/24 Loc: HO.MAMMO Attending Dr: Matt Wu MD Ordering Physician: NameMatt MD Results: 1Negative Date of Service: 05/27/24 Follow Up: 1 Year From Orig inal Mammogram Procedure(s): MM tomosynthesis screening BI Accession Number(s): [id number] cc: NameMatt MD EXAMINATION: MM SCREENING DIGITAL [...] 06/06/24 1626 DD/ 1345 TD/TT: 05/27/24 1408 Simulation Engineer: Procedure Note Donotuseinterpreter, Image - 06/06/[address] [place] [address] Mammography Report Signed Patient: Anup YanceyR#: [id number] 3 : 1970Acct:[id number] Age/Sex: 54 / FADM Date: 05/27/24 Loc: HO.MAMMO Attending Dr: Matt Wu MD Ordering Physician: Matt Wuesults: 1Negative Date of Service: 05/27/24Follow Up: 1 Year From Orig ina Mammogram Procedure(s): MM tomosynthesis screening BI Accession Number(s): [id number] cc: Matt Wu MD EXAMINATION: MM SCREENING [...] 06/06/24 1626 DD/ 1345 TD/TT: 05/27/24 1408 Simulation Engineer: Matt Wu MD IMG BI PROCEDURES Final Result * Hm Diabetes Eye Exam (05/17/2024) Eye Exam Normal Normal Historical Provider HEALTH MAINTENANCE Final Result * HIV-1/2 Antigen and Antibodies, Fourth Generation, with Reflexes (12/21/2023 12:36 PM EDT) HIV AB/AG Nonreactive Nonreactive [facility] Comment:HIV-1 p24 Ag and/or HIV-1/HIV-2 Ab not detected.A test result that is nonreactive does not exclude thepossibility of exposure to or infection with HIV-1 and/orHIV-2. Nonreactive results in this assay for individualswith prior exposure to HIV-1 and/or HIV-2 may be due toantigen and antibody levels that are below the limit ofdetection of this assay.The [employer] HIV Ag/Ab Combo assay result andsupplemental assay results should be interpreted inconjunction with the patient's clinical presentation,history and other laboratory results. If the results areinconsistent with clinical evidence, additional testing issuggested to confirm the result. Blood Venous blood specimen / Unknown 12/21/2023 12:36 PM EDT 12/21/2023 12:36 PM EDT Matt Wu MD LAB BLOOD ORDERABLES Final Resul t Performing Organization Address [facility] de Phone Number [facility] [address] [place] [phone] * Hepatitis Panel, General (05/26/2022 4:23 PM EST) Hepatitis A IgM Nonreactive Nonreactive [facility] Comment:IgM antibodies to TORRES V not detected; does not exclude earlyacute or recovered HAV infection. ~Hepatitis B Surface Antibody NONREACTIVE Nonreactive [facility] Comment:Nonreactive: < 8.00 mIU/mL Hepatitis B Core Antibody Nonreactive Nonreactive [facility] Hepatitis C Antibody Nonreactive Nonreactive [facility] Comment:Antibodies to HCV no t detected; does not exclude early acuteHCV infection. Hepatitis B Surface Antigen Negative Negative [facility] 05/26/2022 4:23 PM EST 05/26/2022 4:23 PM EST [facility] External Provider LAB BLO OD ORDERABLES Final Result Performing Organization Address [facility] Co de Phone Number [facility] [address] [place] [phone] * Colonoscopy (10/10/2021) Colonoscopy Normal Normal Historical Provider HEALTH MAINTENANCE Final Result * Pap Smear (05/17/2021) Pap Negative for intraephithelial lesion or malignancy Negative for intraephithelial lesion or malignancy, Other HPV Not Detected Undetected, Indeterminate, Quantitative, Not Detected Historical Provider HEALTH MAINTENANCE Final Result from Last 3 Months or Most Recently Relevant to Health Maintenance Additional Health Concerns Active Problems Noted Date [...] 06/01/2025 Patient has chronic kidney disease 06/01/2025 Insurance [facility] C3 Care Teams Precision Structural Metal Fitter Relationship Specialty Start Date End Date Name, MD Matt [address] [place] [phone] PCP - General Family Medicine 02/21/22 Ni Gandhi, SEBASTIAN [address] [place] [phone] Registered Nurse Family Medicine 02/24/25 Radha Borden 02/24/25 Estephanie Tan UrologistField Service Consultant 11/24/23
--- OUTSIDE RECORDS SUMMARY | 2025-06-01 21:53 | XMS_ITS | Encounter Summary ---
Author Organization [employer] Address [address] [facility] 7t [place] [address] Care Team Providers Care Freight Claim Investigator Name Role Phone Name, Matt APPIAH Primary Care Provider Ni Gandhi RN Unavailable [phone] Radha Borden Unavailable Reason for Visit * Reason Onset Date Comments triage 09/18/2022 Encounter Details Date Type Department Care Team ([facility] st Contact Info) Description 09/18/2022 Telephone [facility] [address] [place], [place] [phone] Name, MD Matt [address] [place], [place] [phone] triage Social History Tobacco Use Types Packs/Day [...] The caller accepted this outcome pt speaks hebrew documented in this encounter Plan of Treatment Upcoming Encounters Date Type Department Care Team (Late st Contact Info) Description 06/14/2025 11:30 AM EST Office Visit [facility] [address] [place] [address] Name, MD Matt [address] [place] [address] documented as of this encounter Visit Diagnoses Not on filedocumented in this encounter Care Teams Freight Claim Investigator Relationship Specialty Start Date End Date Name, MD Matt [address] [place] [address] PCP - General Family Medicine 02/21/22 Ni Gandhi RN [address] [place] [address] Registered Nurse Family Medicine 02/24/25 Radha Borden 02/24/25 Estephanie Tan Vice President For InstructionMedical Territory Manager 11/24/23 documented as of this encounter
--- OUTSIDE RECORDS SUMMARY | 2025-06-01 21:53 | XMS_ITS | Clinical Summary ---
Author Organization [facility] Address [address] [address] Phone Care Team Providers Care Lockstitch Lining Setter Name Role Phone Name, Matt APPIAH Primary Care Provider [phone] Allergies Active Allergy Reactions Criticality Noted Date [...] tablet, 0 Refills, Maintenance, 08/21/21 8:47:00 EST, [facility]/pharmacy #[id number], Partial fill upon patient request [...] (18-6 5 YEARS) 1988 PAP SMEAR 1991 MAMMOGRAM 2010 COLOGUARD 2015 COLONOSCOPY 2015 COLORECTAL CANCER SCREENING 2015 FIT TEST 2015 FOBT 2015 SIGMOIDOSCOPY 2015 VIRTUAL COLONOSCOPY 2015 PNEUMOCOCCAL VACCINES (50+ y ears) (1 of 1 - PCV) 2020 ZOSTER VACCINES (1 of 2) 2020 INFLUENZA VACCINE (#1) 2025 COVID-19 VACCINE (1 - 2024-2 6 season) 2025 Adult Td,Tdap Booster 05/11/2027 05/11/2017 RSV VACCINE (1 - 1-dose 75+ series) 2045 HEPATITIS A VACCINES Aged Out No long [...] topic Medical Devices Not on file [place] [address] [place] [address] C3 A[employer] Care Teams Lockstitch Lining Setter Relationship Specialty Start Date End Date Name, MD Matt [address] [place] [address] PCP - General Geriatric Psychiatry 04/16/22 Additional Source Comments The information contained in this document represents components of the legal health record. It is not the complete legal health record.[facility]
--- OUTSIDE RECORDS SUMMARY | 2025-06-01 21:53 | XMS_ITS | Encounter Summary ---
Author Organization [employer] Address [address] [facility] 7t [place] [address] Care Team Providers Care Nylon Machine Operator Name Role Phone Name, Matt APPIAH Primary Care Provider [phone] Ni Gandhi RN Unavailable [phone] Radha Borden Unavailable Reason for Visit * Reason Onset Date Comments Med Refill 01/21/2024 Encounter Details Date Type Department Care Team ([facility] st Contact Info) Description 01/21/2024 Telephone [facility] [address] [place] [address] Name, MD Matt [address] [place] [address] Med Refill Social History Tobacco Use Types [...] 10 MG tablet To be sent to: [facility] - [place], [place] - [id number] - [place] - [phone] documented in this encounter Plan of Treatment Upcoming Encounters Date Type Department Care Team (Late st Contact Info) Description 06/14/2025 11:30 AM EST Office Visit [facility] [address] [place] [phone] Name, MD Matt [address] [place] [address] documented as of this encounter Visit Diagnoses Not on filedocumented in this encounter Additional Health Concerns Assessment Noted Time PHQ-9 Depression Total Score: 0 09/07/19 24 3:15 PM EDT documented as of this encounter Care Teams Nylon Machine Operator Relationship Specialty Start Date End Date Name, MD Matt [address] [place] [address] PCP - General Family Medicine 02/21/22 Ni Gandhi RN [address] [place] [address] Registered Nurse Family Medicine 02/24/25 Radha Borden 02/24/25 Estephanie Tan Nanotechnology Engineering TechnologistPick Up Attendant 11/24/23 documented as of this encounter
--- OUTSIDE RECORDS SUMMARY | 2025-06-01 21:53 | XMS_ITS ---
Author Organization [employer] Address [address] [facility] 7t [place] [address] Care Team Providers Care Core Dropper Name Role Phone Name, Matt APPIAH Primary Care Provider [phone] Ni Gandhi RN Unavailable [phone] Radha Borden Unavailable CM Complex Status:Enrolled (Active) Start date:02/24/2025 Enrollment date:03/15/2025 Enrollment reason:ADT Feed Overview ADT- [facility] ED 02/23/25 Case Team Name Relationship Phone Ni Gandhi RN(Responsible Staff) Registered Nurse [phone] Continued Care and Services Coordination
--- OUTSIDE RECORDS SUMMARY | 2025-06-01 21:53 | XMS_ITS | Encounter Summary ---
Author Organization [employer] Address [address] [facility] 7t [place] [address] Care Team Providers Care Head Strength And Conditioning Coach Name Role Phone Name, Matt APPIAH Primary Care Provider [phone] Ni Gandhi RN Unavailable [phone] Radha Borden Unavailable Reason for Visit * Reason Onset Date Comments Durable Medical Equipment 04/06/2024 Encounter Details Date Type Department Care Team ([facility] st Contact Info) Description 04/06/2024 Telephone [facility] [address] [place], [place] [phone] Name, MD Matt [address] [place] [address] Durable Medical Equipment Social History Tobacco Use [...] Description 06/14/2025 11:30 AM EST Office Visit [facility] [address] [place] [phone] Name, MD Matt [address] [place] [address] documented as of this encounter Visit Diagnoses Not on filedocumented in this encounter Additional Health Concerns Assessment Noted Time PHQ-9 Depression Total Score: 0 09/07/19 24 3:15 PM EDT documented as of this encounter Care Teams Head Strength And Conditioning Coach Relationship Specialty Start Date End Date Name, MD Matt [address] [place] [phone] PCP - General Family Medicine 02/21/22 Ni Gandhi RN [address] [place] [phone] Registered Nurse Family Medicine 02/24/25 Radha Borden 02/24/25 Estephanie Tan Mixed Livestock Farm WorkerSpeaker Mounter 11/24/23 documented as of this encounter
--- OUTSIDE RECORDS SUMMARY | 2025-06-01 21:53 | XMS_ITS | Encounter Summary ---
Author Organization [employer] Address [address] [place] [address] Care Team Providers Care Radio Time Salesperson Name Role Phone Name, Matt APPIAH Primary Care Provider [phone] Ni Gandhi RN Unavailable [phone] Radha Borden Unavailable Reason for Visit * Reason Onset Date Comments Care Coordination 11/24/2023 [id number] a ssessment Encounter Details Date Type Department Care Team ([facility] Contact Info) Description 11/24/2023 Telephone [facility] [address] [place] [address] Estephanie Tan, SEBASTIAN Care Coordination ([id number] assessment) Social History Tobacco Use Types Packs/Day [...] Member is a 53 year old female, Khmer speaking. Patient is alert andoriented x 3. [...] understanding, and able to repeat back to customs entry writer. A follow up call will be [...] Description 06/14/2025 11:30 AM EST Office Visit [facility] [address] [place] [phone] Name, MD Matt [address] [place] [address] documented as of this encounter Visit Diagnoses Not on filedocumented in this encounter Additional Health Concerns Assessment Noted Time PHQ-9 Depression Total Score: 0 09/07/19 24 3:15 PM EDT documented as of this encounter Care Teams Radio Time Salesperson Relationship Specialty Start Date End Date Name, MD Matt [address] [place] [address] PCP - General Family Medicine 02/21/22 Ni Gandhi RN [address] [place] [address] Registered Nurse Family Medicine 02/24/25 Radha Borden 02/24/25 Estephanie Tan Geek Squad AgentAuto Heater Mechanic 11/24/23 documented as of this encounter
--- OUTSIDE RECORDS SUMMARY | 2025-06-01 21:53 | XMS_ITS | Encounter Summary ---
Author Organization [employer] Address [address] [facility] 7t [place] [address] Care Team Providers Care Second Grade Teacher Name Role Phone Name, Matt APPIAH Primary Care Provider [phone] Ni Gandhi RN Unavailable [phone] Radha Borden Unavailable Reason for Visit * Reason Onset Date Comments Med Refill 09/24/2023 Encounter Details Date Type Department Care Team ([facility] st Contact Info) Description 09/24/2023 Telephone [facility] [address] [place], [place] [phone] Name, MD Matt [address] [place] [address] Med Refill Social History Tobacco Use Types [...] tablet To be sent to: [facility] - [place], [place] - [id number] - [place] - [address] documented in this encounter Plan of Treatment Upcoming Encounters Date Type Department Care Team (Late st Contact Info) Description 06/14/2025 11:30 AM EST Office Visit [facility] [address] [place] [address] Name, MD Matt [address] [place] [address] documented as of this encounter Visit Diagnoses Not on filedocumented in this encounter Additional Health Concerns Assessment Noted Time PHQ-9 Depression Total Score: 0 09/07/19 24 3:15 PM EDT documented as of this encounter Care Teams Second Grade Teacher Relationship Specialty Start Date End Date Name, MD Matt [address] [place] [address] PCP - General Family Medicine 02/21/22 Ni Gandhi, SEBASTIAN [address] [place] [address] Registered Nurse Family Medicine 02/24/25 Radha Borden 02/24/25 Estephanie Tan Art Sales Consultant1St Pressman 11/24/23 documented as of this encounter
--- OUTSIDE RECORDS SUMMARY | 2025-06-01 21:53 | XMS_ITS ---
Author Organization [employer] Address [address] [facility] 7t [place] [address] Care Team Providers Care Light Armored Vehicle Officer Name Role Phone Name, Matt APPIAH Primary Care Provider [phone] Ni Gandhi RN Unavailable [phone] Radha Borden Unavailable [facility] Status:Enrolled (Active) Start date:02/24/2025 Enrollment date:03/17/2025 Enrollment reason:ADT Feed Overview ADT- [facility] 02/23/25. Please outreach for enrollment. Case Team Name Relationship Phone Radha Borden(Responsible Staff) [phone] Continued Care and Services Coordination
--- OUTSIDE RECORDS SUMMARY | 2025-06-01 21:53 | XMS_ITS | Encounter Summary ---
Author Organization [employer] Address [address] [facility] [address] [place] [address] Care Team Providers Care Turkish Rubber Name Role Phone Name, Matt APPIAH Primary Care Provider [phone] Ni Gandhi RN Unavailable [phone] Radha Borden Unavailable Reason for Visit * Reason Onset Date Comments Med Refill 05/02/2025 Encounter Details Date Type Department Care Team ([facility] st Contact Info) Description 05/02/2025 Telephone [facility] [address] [place], [place] [phone] Name, MD Matt [address] [place] [address] Med Refill Social History Tobacco Use Types [...] Telephone Encounter - Cecilia Champagne LPN - 05/02/2025 11:13 AM EST Medication pended to PCP. * Telephone Encounter - Tonya Pike - 05/02/2025 11:10 AM EST TC from pt requesting medication refill. Medications needing refill : - glucose blood (FREESTYLE LITE) test strip To be sent to: - [facility] - [place], [place] - [phone] - [place] - [address] documented in this encounter Plan of Treatment Upcoming Encounters Date Type Department Care Team (Late st Contact Info) Description 06/14/2025 11:30 AM EST Office Visit [facility] [address] [place] [address] Name, MD Matt [address] [place] [address] documented as of this encounter Goals Goal Patient Goal Type Associated Problems Recent Progress Patient-Stated? Author Help patients manage their type 2 diabetes Care Plan Help patients manage their type 2 diabetes No Colon Tonya Pike Weekly blood pressure task Care Plan Weekly blood pressure task No Colon Shahzad Tonya Help patients manage their type 2 diabetes Care Plan Help patients manage their type 2 diabetes No Colon Shahzad, Tnoya Patient has chronic kidney disease Care Plan Patient has chronic kidney disease No Colon Shahzad Tonya Weekly blood pressure task Care Plan Weekly blood pressure task No Colon Shahzad Tonya Patient has chronic kidney disease Care Plan Patient has chronic kidney disease No Colon Shahzad, Tonya Weekly blood pressure task Care Plan Weekly blood pressure task No Cecilia Champagne LPN Weekly blood pressure task Care Plan Weekly blood pressure task No Cecilia Champagne LPN Patient has chronic kidney disease Care Plan Patient has chronic kidney disease No Cecilia Champagne LPN Patient has chronic kidney disease Care Plan Patient has chronic kidney disease No Cecilia Champagne LPN documented as of this encounter Visit [...] 05/02/2025 Patient has chronic kidney disease 05/02/2025 Assessment Noted Time PHQ-9 Depression Total Score: 0 03/13/20 25 10:51 AM EDT documented as of this encounter Care Teams Turkish Rubber Relationship Specialty Start Date End Date Name, MD Matt [address] [place] [address] PCP - General Family Medicine 02/21/22 Ni Gandhi RN [address] [place] [address] Registered Nurse Family Medicine 02/24/25 Radha Borden 02/24/25 Estephanie Tan Discharge PlannerPlant Pathologist 11/24/23 documented as of this encounter
--- OUTSIDE RECORDS SUMMARY | 2025-06-01 21:53 | XMS_ITS | Clinical Summary ---
Author Organization [address] [facility] Address [address] [place] [address] Phone Care Team Providers Care Facility Manager Histology Name Role Phone Physician, Pcp Unknown Primary [...] (CLEOCIN T) 1 % lotion APLIQUE CAPA ASHLEY EL AREA AFECTADA TODOS [place] 3 [...] She is requesting an open scanner at [facility] and I will follow-up with her once [...] Overview (03/16/2024): Bilateral - negative EMG at [place] 2014 Migraine 12/25/2014 Old DE (myocardial infarction) [...] Department Care Team Description 04/04/2025 Telephone Neurosurgery [facility] [address] [phone] Reyna Laboy MD 04/03/2025 3:15 PM EDT Office Visit Orthopedic [facility] [address] [phone] Smooth Sharp DPM Dermatophytosis of nail (Primary Dx); Tinea pedis of both feet; Diabetic mononeuropathy simplex (CMS/HCC V24, CMS/HCC V28) 03/21/2025 3:30 PM EDT Office Visit [facility] [place] [address] [phone] Smooth Sharp DPM Dermatophytosis of nail (Primary Dx); Tinea pedis of both feet 03/20/2025 Telephone [facility] [address] [phone] [place] 03/10/2025 1:45 PM EDT Office Visit [facility] [address] [phone] Reyna Laboy MD Esophageal dysphagia (Primary Dx); Chronic bilateral low back pain with right-sided sciatica 03/10/2025 1:26 PM EDT - 03/10/2025 11:59 PM EDT Hospital Encounter [facility] X[facility] [address] [place] [phone] Arthrodesis status Discharge Disposition: Home or Self Care 03/06/2025 2:45 PM EDT Office Visit Orthopedic [facility] [address] [phone] Smooth Sharp, DPM Ingrowing nail (Primary Dx); Dermatophytosis of nail; Diabetic mononeuropathy simplex ([facility] V24, [facility] V28); Tinea pedis of both feet from Last 3 Months Immunizations Immunization Administration Dates Next Due Hepatitis B (Rpjxvvg-F-Dvffv , Recombivax HB-Adult) 19yo and older 03/13/2009,02/16/2008,01/11/2008 [...] manifestations, controlled ([facility] V24, [facility] V28) 08/07/2011 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, controlled ([facility] [...] Breast cancer Sister CABG Uncle CAD in 40s Colon cancer Neg Hx Ovarian cancer Neg [...] Last Done Comments Breast Cancer Screening 1970 Drug Screen 1970 Non-Opioid Controlled Substance Agreement 1970 Diabetes: Annual Foot Exam 1980 Diabetes: Annual Retina Eye Exam 1980 Pneumococcal Vaccine: 50+ Years (1 of 2 - PCV) 1989 RSV Immunization Adult Patients (1 - Risk 50-74 years 1-dose series) 2020 Zoster Vaccines (1 of 2) 2020 Hepatitis C Screening 05/17/2022 Social Influencers of Health Screening 05/17/2022 Cervical Cancer Screening: Pap Smear 05/19/2022 05/19/2019, 05/19/2019 Diabetes: Annual Urine Albumin-Creatinine Ratio (uACR) 05/27/2022 02/18/2019 Depression Screening 06/15/2024 COVID-19 Vaccine ( season) [...] TEST Routine 08/27/2019 HEMOGLOBIN A1C Routine 08/27/2019 PAP SMEAR Routine 05/19/2019 URINE ALBUMIN CREATININE RATIO Routine [...] Range of motion is extremely limited. Code 93232 -------- FINAL REPORT -------- Dictated By: Rj Aguirre Dictated Date: 03/13/2025 07:53 ET Assigned Physician: Rj Aguirre Reviewed and Electronically Signed By: Rj Aguirre Signed Date: 03/13/2025 07:56 ET Workstation ID: [id number] Transcribed By: Self Edit Transcribed Date: 03/13/2025 [...] extension. Range ofmotion is extremely limited. Code 58416 -------- FINAL REPORT -------- Dictated By: Rj Aguirre Dictated Date: 03/13/2025 07:53 ET Assigned Physician: Rj Aguirre Reviewed and Electronically Signed By: Rj Aguirre Signed Date: 03/13/2025 07:56 ET Workstation ID: [id number] Transcribed By: Self Edit Transcribed Date: 03/13/2025 07:53 ET Reyna Laboy MD IMG XR PROCEDURES Final Result * Annual BMP Blood Test (08/27/2019) Annual BMP Blood Test abstracted Historical Provider HEALTH MAINTENANCE Final Result * (ABNORMAL) Hemoglobin A1c (08/27/2019) Hemoglobin A1C 6.6(A) <=6.5 % Blood Venous blood specimen / Unknown Result [facility] Historical Provider LAB BLOOD ORDERABLES Ashley l Result * Pap smear (05/19/2019) 05/19/2019 Narrative HISTORICAL TESTING LAB RESULTING AGENCY - 05/25/2019 4:15 PM EST [id number] THINPREP PAP, IMAGED: ATYPICAL SQUAMOUS CELLS OF UNDETERMINED SIGNIFICANCE (ASCUS) . PITA MORRISSEY(ASCP) (CASE SCREENED 05 24 2019) SRIKANTH GRULLON M.D. , PATHOLOGIST (CASE ELECTRONICALLY SIGNED 05 24 2019) RESULT OF APTIMA HIGH RISK HPV ASSAY: HIGH RISK HPV: NEGATIVE (SEROTYPES 16,18,31,33,35,39,45,51,52,56,58,59,66,68) COMPLETED ON 2019-05-20 ADEQUACY: SATISFACTORY ENDOCERVICAL/TRANSFORMATION ZONE COMPONENT PRESENT. SOURCE: THINPREP PAP HPV ANY DX: REFLEX 16 AND 18, CERVICAL, IMAGED CLINICAL INFORMATION: HPV ANY DIAGNOSIS. Z12.4 Maryse Jimenez MD LAB CYTOLOGY ORDERABLES Fin al Result HISTORICAL TESTING LAB RESULTING AGENCY * Urine Albumin Creatinine Ratio (02/18/2019) Urine Albumin Creatinine Ratio abstracted Historical Provider HEALTH MAINTENANCE Final Result * (ABNORMAL) Lipid panel (02/18/2019) Pathologist [facility] LDL/HDL Ratio 7(A) 0 - 4 Triglycerides 443(A) 0 - 150 mg/dL Cholesterol 185 0 - 200 mg/dL HDL 27(A) >=40 mg/dL LDL Cholesterol 70 0 - 100 mg/dL Blood Venous blood specimen / Unknown Historical Provider MD LAB BLOOD ORDERABLES Ashley l Result * Colonoscopy (09/24/2015) Pathologist [facility] Colonoscopy no interpretation , abstracted Anatomical Region Laterality Modality Other Historical Provider HEALTH MAINTENANCE Final Result from Last 3 Months or Most Recently Relevant to Health Maintenance Insurance MEDICAID - [place] Care Teams Facility Manager Histology Relationship Specialty Start Date End Date Physician, Pcp Unknown PCP - General 03/10/25
[2025-06-01 22:37] VITALS: BP 178/81; PULSE 97; RESP 20; TEMP 36.5; O2SAT 95
== END 2025-06-01 22:39 | disposition home or self-care (01) ==
PROVIDERS: Physician Assistant Medical; Emergency Provider Emergency Medicine Emergency Medical Services
DX: U07.1 COVID-19 (principal)
CPT/HCPCS: 36415; 71046; 80048; 80076; 83690; 83735; 84484; 85025; 87637; 93005; 99283

== ENCOUNTER → 2025-06-01 16:59 | Outpatient (BNV) | payer MEDICAID, SELFPAY | PROVIDERS: Emergency Provider Emergency Medicine Emergency Medical Services; Visit Provider Internal Medicine Cardiovascular Disease | DX: R94.31 Abnormal electrocardiogram [ECG] [EKG] (principal); R07.9 Chest pain, unspecified | CPT/HCPCS: 93010 ==

== ENCOUNTER → 2025-06-01 17:00 | Outpatient (BNV) | payer MEDICAID, SELFPAY | PROVIDERS: Visit Provider Radiology Diagnostic Radiology | DX: R07.9 Chest pain, unspecified (principal); R06.02 Shortness of breath | CPT/HCPCS: 71046 ==